=== PATIENT | male | born 1950 | race African-American/Black ===

== ENCOUNTER 2016-04-12 22:44 | Observation (INO) | payer OTHER, MEDICAID ==
[~2016-04-12] VITALS: Ht 175.3 cm; Wt 60.0 kg
[~2016-04-12 22:44] MED LIST: ALBU.5I NEB; ALLO300T2 PO; AMLO5TAB22 PO; AZIT500T2 PO; CHLO10 PO; CLON.1 PO; DILA100C PO; GLUC1000 PO; HYDR-2768 PO; NEUR600T PO; OMEP40CA2 PO; PHEN100 PO; PRED20 PO; ROFL1TAB2 PO; SYMB160A INH; TIOT18I INH; VENTAER INH
[2016-04-12] MEDS ORDERED: SODIUM CHLORID 0.9% 500 ML INJ 500 ML IV ONE (23:00)
[2016-04-12] MEDS ORDERED: SODIUM CHLORIDE 0.9% FLUSH 5 ML FLUSH IVF PRN (23:00)
[2016-04-12] MEDS ORDERED: NITROGLYCERIN 2% OINT 1 GM PACKET TOP ONE (23:00)
[2016-04-12] MEDS ORDERED: ASPIRIN 81 MG CHEW TAB PO ONE (23:00)
[2016-04-12 23:07] VITALS: BP 124/78; PULSE 85; RESP 16; TEMP 98.4; O2SAT 90
[2016-04-12 23:10] VITALS: RESP 16
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
--- NOTE | 2016-04-12 23:29 | RADRPT ---
EXAM DATE/TIME: 04/12/2016 23:05 [place] COMPARISON: CHEST SINGLE AP, February 23, 2016, 22:24. INDICATIONS : Chest pain MEDICAL HISTORY : Hypertension. Congestive heart failure. SURGICAL HISTORY : None. ENCOUNTER: Initial ACUITY: 1 day PAIN SCORE: Non-responsive. LOCATION: Bilateral chest FINDINGS: A single view of the chest demonstrates the lungs to be symmetrically aerated without evidence of mas s, infiltrate or effusion. The cardiomediastinal contours are unremarkable. Osseous structures are intact. 3 rounded metallic foreign bodies overlie the left supraclavicular region and to overlie the left proximal humerus. CONCLUSION: Normal examination. Hubert Rodrigues Jr., MD on April 12, 2016 at 23:27 Board Certified Radiologist. This report was verified electronically.
[2016-04-12 23:37] LABS: AUTOMATED NEUTROPHIL # 5.4 TH/MM3 (1.8-7.7); BASOPHIL % 0.3 % (0.0-2.0); EOSINOPHIL # 0.1 TH/MM3 (0-0.4); EOSINOPHIL % 0.8 % (0.0-4.0); HEMO FLAGS DIFF FINAL; LYMPH % 19.3 % (9.0-44.0); LYMPHOCYTE # 1.7 TH/MM3 (1.0-4.8); MEAN CELL VOLUME 80.2 FL (80.0-100.0); MEAN CORPUSCULAR HEMOGLOBIN 26.6 PG (27.0-34.0); MEAN CORPUSCULAR HGB CONC 33.2 % (32.0-36.0); MONO % 17.5 % (0.0-8.0); NEUT % 62.1 % (16.0-70.0); PLATELET COUNT 140 TH/MM3 (150-450); RED BLOOD COUNT 5.11 MIL/MM3 (4.50-5.90); RED CELL DISTRIBUTION WIDTH 17.5 % (11.6-17.2); WHITE BLOOD COUNT 8.7 TH/MM3 (4.0-11.0)
[2016-04-12 23:45] LABS: APTT (PATIENT) 27.1 SEC (24.3-30.1); INTERNATIONAL NORMALIZED RATIO 0.9 RATIO; PROTHROMBIN TIME - PATIENT 9.9 SEC (9.8-11.6)
[2016-04-12 23:57] LABS: ALKALINE PHOSPHATASE 86 U/L (45-117); CREATINE KINASE 106 U/L (39-308); TOTAL BILIRUBIN ADULT 0.5 MG/DL (0.2-1.0)
[2016-04-12 23:58] LABS: ALT (GPT) 48 U/L (12-78); ANION GAP 14 MEQ/L (5-15); AST (GOT) 109 U/L (15-37); BICARBONATE 20.2 MEQ/L (21.0-32.0); BLOOD UREA NITROGEN 17 MG/DL (7-18); CHLORIDE 100 MEQ/L (98-107); GLOMERULAR FILTRATION RATE 77 ML/MIN (>89); MAGNESIUM 1.8 MG/DL (1.5-2.5); POTASSIUM 3.9 MEQ/L (3.5-5.1); SODIUM (NA) 134 MEQ/L (136-145)
[2016-04-13] VITALS (12 sets, daily range): BP systolic 126–166; BP diastolic 77–94; PULSE 72–97; RESP 16–22; TEMP 96.3–98.7; O2SAT 94–97
[2016-04-13] MEDS ORDERED: methylPREDNISolone SOD SUCC 125 MG/2 ML VIAL IV PUSH ONE
[2016-04-13] MEDS ORDERED: LEVOFLOXACIN 750 MG PREMIX INJ 150 ML IV ONE
[2016-04-13] MEDS: RESP: ALBUTEROL 2.5 MG/IPRATROPIUM 0.5 MG NEB (SCH) INH (00:07)
[2016-04-13 00:09] LABS: CKMB 0.8 NG/ML (0.5-3.6)
[2016-04-13] MEDS ORDERED: SODIUM CHLORID 0.9% 500 ML INJ 500 ML IV ONE (01:45)
[2016-04-13] MEDS ORDERED: SODIUM CHLORIDE 0.9% FLUSH 5 ML FLUSH FLUSH PRN (02:30)
[2016-04-13] MEDS ORDERED: NALOXONE HCL 0.4 MG/ML AMP IV PRN (02:30)
[2016-04-13] MEDS ORDERED: ONDANSETRON HCL 4 MG/2 ML VIAL IVP PRN (02:30)
[2016-04-13] MEDS ORDERED: RESP: ALBUTEROL 2.5 MG/IPRATROPIUM 0.5 MG NEB (PRN) NEB (02:30)
[2016-04-13] MEDS: RESP: ALBUTEROL 2.5 MG/IPRATROPIUM 0.5 MG NEB (SCH) NEB ×5 (03:12→19:58)
[2016-04-13] MEDS: methylPREDNISolone SOD SUCC 40 MG/1 ML VIAL IV PUSH SCH ×3 (05:51→17:28)
[2016-04-13] MEDS: SODIUM CHLOR 0.9% 1000 ML INJ 1,000 ML IV SCH ×3 (05:51→17:27)
[2016-04-13] MEDS ORDERED: BENZONATATE 100 MG CAP PO PRN (08:30)
[2016-04-13] MEDS ORDERED: MAGNESIUM HYDROXIDE SUSP 30 ML CUP PO PRN (08:30)
[2016-04-13] MEDS ORDERED: ACETAMINOPHEN/HYDROcodone 325 MG/5 MG TAB PO PRN (08:30)
[2016-04-13] MEDS ORDERED: BISACODYL 10 MG SUPP PR PRN (08:30)
[2016-04-13] MEDS ORDERED: ACETAMINOPHEN 325 MG TAB PO PRN (08:30)
[2016-04-13] MEDS ORDERED: DOCUSATE SODIUM 100 MG CAP PO PRN (08:30)
[2016-04-13] MEDS ORDERED: ALBU.5I NEB (09:48)
[2016-04-13] MEDS: SODIUM CHLORIDE 0.9% FLUSH 5 ML FLUSH FLUSH SCH ×2 (09:52→21:27)
[2016-04-13] MEDS: PANTOPRAZOLE SOD 40 MG DELAYED RELEASE TAB PO SCH ×2 (09:52→12:32)
[2016-04-13] MEDS: guaiFENesin E.R. 600 MG TAB PO SCH ×2 (09:52→21:27)
[2016-04-13] MEDS ORDERED: ALLO300T2 PO (09:53)
[2016-04-13] MEDS ORDERED: VENTAER INH (09:53)
[2016-04-13] MEDS ORDERED: SYMB160A INH (09:54)
[2016-04-13] MEDS ORDERED: GABA600T PO (09:59)
[2016-04-13] MEDS ORDERED: AMLO5TAB2 PO (09:59)
[2016-04-13] MEDS ORDERED: METF1000 PO (09:59)
[2016-04-13] MEDS ORDERED: HYDR25TA5 PO (09:59)
[2016-04-13] MEDS ORDERED: CLON0.1T PO (09:59)
[2016-04-13] MEDS ORDERED: OMEP40CA2 PO (09:59)
[2016-04-13] MEDS ORDERED: DILA100C PO (09:59)
[2016-04-13] MEDS ORDERED: SPIRCAP INH (10:00)
[2016-04-13] MEDS ORDERED: NITR1SUB3 SL (10:00)
[2016-04-13] MEDS ORDERED: ROFL1TAB2 PO (10:00)
--- NOTE | 2016-04-13 10:45 | EKG ---
Date Performed: 04/13/2016 Time Performed: 05:59:05 PTAGE: 65 years EKG: Sinus rhythm POSSIBLE LEFT VENTRICULAR HYPERTROPHY POSSIBLE INFERIOR MYOCARDIAL INFARCTION ABNORMAL ECG PREVIOUS TRACING : 04/12/2016 22.59 DOCTOR: Eric Reid Interpretating Date/Time 04/13/2016 10:45:03
--- NOTE | 2016-04-13 11:18 | EKG ---
Date Performed: 04/12/2016 Time Performed: 22:59:32 PTAGE: 65 years EKG: Sinus rhythm PROBABLE INFERIOR MYOCARDIAL INFARCTION ABNORMAL ECG INTERPRETATION BASED ON A DEFAULT AGE OF 40 ROQUE GUNDERSON PREVIOUS TRACING : 02/23/2016 22.09 DOCTOR: Eric Reid Interpretating Date/Time 04/13/2016 11:17:11
[2016-04-13] MEDS ORDERED: LORazepam 2 MG TAB PO PRN (11:45)
[2016-04-13] MEDS: MULTIVITAMINS/MINERALS THERAPEUTIC TAB PO SCH (11:45)
[2016-04-13] MEDS ORDERED: FLUMAZENIL 1 MG/10 ML VIAL IV PUSH PRN (11:45)
[2016-04-13] MEDS ORDERED: LORazepam 1 MG TAB PO PRN (11:45)
[2016-04-13] MEDS ORDERED: LORazepam 2 MG/ML VIAL IV PUSH PRN ×4 (11:45)
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
[2016-04-13] MEDS ORDERED: GLUCAGON 1 MG/ML VIAL OTHER PRN (12:00)
[2016-04-13] MEDS ORDERED: DEXTROSE 50% IN WATER 50 ML VIAL(D50) IV PUSH PRN (12:00)
--- NOTE | 2016-04-13 12:19 | EKG ---
Date Performed: 04/13/2016 Time Performed: 11:43:38 PTAGE: 65 years EKG: Sinus rhythm WITH SINUS ARRHYTHMIA NONSPECIFIC T-WAVE ABNORMALITY BORDERLINE ECG PREVIOUS TRACING : 04/13/2016 05.59 DOCTOR: Eric Reid Interpretating Date/Time 04/13/2016 12:18:06
[2016-04-13] MEDS: HYDROCHLOROTHIAZIDE 25 MG TAB PO SCH ×2 (12:32→21:27)
[2016-04-13] MEDS: THIAMINE HCL 100 MG TAB PO SCH (12:32)
[2016-04-13] MEDS: cloNIDine HCL 0.1 MG TAB PO SCH ×2 (12:33→21:27)
[2016-04-13] MEDS: FOLIC ACID 1 MG TAB PO SCH (12:33)
[2016-04-13] MEDS: GABAPENTIN 300 MG CAP PO SCH ×2 (12:33→17:29)
[2016-04-13] MEDS: amLODIPine BESYLATE 5 MG TAB PO SCH ×2 (12:33→21:27)
[2016-04-13] MEDS: PHENYTOIN SODIUM 100 MG CAP PO SCH (12:33)
[2016-04-13 12:58] LABS: CREATINE KINASE 66 U/L (39-308)
[2016-04-13] MEDS ORDERED: INSULIN ASPART SUPPLEMENTAL SCALE SQ SCH (16:00)
[2016-04-13 16:42] LABS: HEMOGLOBIN A1a 1.3 %; HEMOGLOBIN A1b 1.6 %; HEMOGLOBIN Ao 84.3 %; HEMOGLOBIN LA1C 1.8 %; HEMOGLOBIN P3 3.6 %
[2016-04-13] MEDS: BUDESONIDE-FORMOTEROL 160/4.5 MCG INHALER INH SCH (21:00)
[2016-04-13] MEDS: HEPARIN SODIUM - SQ 10,000 UNITS/ML VIAL SQ SCH (21:28)
[2016-04-14] MEDS: methylPREDNISolone SOD SUCC 40 MG/1 ML VIAL IV PUSH SCH ×2 (00:21→05:01)
[2016-04-14 00:31] VITALS: PULSE 72
[2016-04-14 04:25] VITALS: BP 144/85; PULSE 65; RESP 20; TEMP 96.3; O2SAT 95
[2016-04-14] MEDS ORDERED: LEVOFLOXACIN 750 MG TAB PO SCH (06:00)
[2016-04-14 06:15] LABS: AUTOMATED NEUTROPHIL # 9.1 TH/MM3 (1.8-7.7); BASOPHIL % 0.2 % (0.0-2.0); HEMATOCRIT 39.6 % (39.0-51.0); LYMPH % 7.9 % (9.0-44.0); LYMPHOCYTE # 0.8 TH/MM3 (1.0-4.8); MEAN CELL VOLUME 79.9 FL (80.0-100.0); MEAN CORPUSCULAR HEMOGLOBIN 26.2 PG (27.0-34.0); MEAN CORPUSCULAR HGB CONC 32.8 % (32.0-36.0); MONO % 4.7 % (0.0-8.0); NEUT % 87.2 % (16.0-70.0); PLATELET COUNT 131 TH/MM3 (150-450); RED BLOOD COUNT 4.96 MIL/MM3 (4.50-5.90); RED CELL DISTRIBUTION WIDTH 16.9 % (11.6-17.2); WHITE BLOOD COUNT 10.4 TH/MM3 (4.0-11.0)
[2016-04-14 06:34] LABS: HEMO FLAGS AUTO DIFF
[2016-04-14 06:42] LABS: ALKALINE PHOSPHATASE 79 U/L (45-117); ALT (GPT) 37 U/L (12-78); ANION GAP 11 MEQ/L (5-15); AST (GOT) 53 U/L (15-37); BICARBONATE 23.7 MEQ/L (21.0-32.0); BLOOD UREA NITROGEN 20 MG/DL (7-18); CHLORIDE 101 MEQ/L (98-107); GLOMERULAR FILTRATION RATE 92 ML/MIN (>89); MAGNESIUM 1.9 MG/DL (1.5-2.5); POTASSIUM 3.8 MEQ/L (3.5-5.1); SODIUM (NA) 136 MEQ/L (136-145); TOTAL BILIRUBIN ADULT 0.5 MG/DL (0.2-1.0)
[2016-04-14] MEDS ORDERED: INSULIN ASPART SUPPLEMENTAL SCALE SQ SCH (07:00)
[2016-04-14] MEDS: RESP: ALBUTEROL 2.5 MG/IPRATROPIUM 0.5 MG NEB (SCH) NEB (08:00)
[2016-04-14 08:02] VITALS: BP 158/88; PULSE 68; RESP 18; TEMP 99.1; O2SAT 95
[2016-04-14 08:18] LABS: SCAN/DIFF AUTO DIFF CONFIRMED
[2016-04-14] MEDS ORDERED: ROFLUMILAST 500 MCG TAB PO SCH (09:00)
[2016-04-14] MEDS: BUDESONIDE-FORMOTEROL 160/4.5 MCG INHALER INH SCH (09:00)
[2016-04-14] MEDS: PANTOPRAZOLE SOD 40 MG DELAYED RELEASE TAB PO SCH ×2 (09:00→09:23)
[2016-04-14] MEDS ORDERED: ALLOPURINOL 300 MG TAB PO SCH (09:00)
[2016-04-14] MEDS: GABAPENTIN 300 MG CAP PO SCH (09:23)
[2016-04-14] MEDS: amLODIPine BESYLATE 5 MG TAB PO SCH (09:23)
[2016-04-14] MEDS: PHENYTOIN SODIUM 100 MG CAP PO SCH (09:23)
[2016-04-14] MEDS: MULTIVITAMINS/MINERALS THERAPEUTIC TAB PO SCH (09:23)
[2016-04-14] MEDS: FOLIC ACID 1 MG TAB PO SCH (09:23)
[2016-04-14] MEDS: guaiFENesin E.R. 600 MG TAB PO SCH (09:24)
[2016-04-14] MEDS: HYDROCHLOROTHIAZIDE 25 MG TAB PO SCH (09:24)
[2016-04-14] MEDS: THIAMINE HCL 100 MG TAB PO SCH (09:24)
[2016-04-14] MEDS: cloNIDine HCL 0.1 MG TAB PO SCH (09:24)
[2016-04-14] MEDS: SODIUM CHLORIDE 0.9% FLUSH 5 ML FLUSH FLUSH SCH (09:24)
[2016-04-14] MEDS: HEPARIN SODIUM - SQ 10,000 UNITS/ML VIAL SQ SCH (09:24)
[2016-04-14 09:49] VITALS: PULSE 66
[2016-04-14] MEDS ORDERED: PRED20 PO (09:52)
[2016-04-14] MEDS ORDERED: LEVA750T PO (09:52)
--- NOTE | 2016-04-14 09:54 | HHI.DCPOC ---
Discharge Care Plan Diagnosis: (1) COPD exacerbation Goals to Promote Your Health * To prevent worsening of your condition and complications * To maintain your health at the optimal level Directions to Meet Your Goals Take your medications as prescribed Follow your dietary instruction Follow activity as directed Keep your appointments as scheduled Take your immunizations and boosters as scheduled If your symptoms worsen call your PCP, if no PCP go to Urgent Care Center or Emergency Room Smoking is Dangerous to Your Health. Avoid second hand smoke Call the 24-hour hour crisis hotline for domestic abuse at Rina Wallace PA-C Apr 14, 2016 09:54
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
[2016-06-14] MEDS ORDERED: POTA20TA5 PO (09:33)
[2016-06-14] MEDS ORDERED: OXYC-392 PO (09:33)
[2016-06-14] MEDS ORDERED: PANT20 PO (09:33)
[2016-06-14] MEDS ORDERED: AMBI5TAB PO (09:33)
[2016-06-14] MEDS ORDERED: DILA100C PO (09:33)
[2016-06-14] MEDS ORDERED: ROFL1TAB2 PO (09:33)
[2016-06-14] MEDS ORDERED: SYMB160A INH (09:33)
[2016-06-14] MEDS ORDERED: BUME1TAB PO (09:33)
[2016-06-14] MEDS ORDERED: BENT20TA PO (09:33)
[2016-06-14] MEDS ORDERED: VENTAER INH (09:33)
[2016-07-27] MEDS ORDERED: REGL5TAB PO (15:15)
== END 2016-04-14 11:41 | disposition home or self-care (01) ==
LOC: NEPC 22:44 → NEDA 04-13 01:40 → NEDH 04-13 07:37 → NEPFCDU 04-13 13:50
PROVIDERS: ADMIT Internal Medicine; ATTEND Internal Medicine
DX: J44.1 Chronic obstructive pulmonary disease with (acute) exacerbation (principal); R07.9 Chest pain, unspecified; J45.909 Unspecified asthma, uncomplicated; K85.90 Acute pancreatitis without necrosis or infection, unspecified; I10 Essential (primary) hypertension; R74.8 Abnormal levels of other serum enzymes; I48.91 Unspecified atrial fibrillation; E11.9 Type 2 diabetes mellitus without complications; G40.909 Epilepsy, unspecified, not intractable, without status epilepticus; K21.9 Gastro-esophageal reflux disease without esophagitis; M10.9 Gout, unspecified; M19.90 Unspecified osteoarthritis, unspecified site; Z72.0 Tobacco use; Z99.81 Dependence on supplemental oxygen; Z86.73 Personal history of transient ischemic attack (TIA), and cerebral infarction without residual deficits; Z86.010 Personal history of colon polyps; V19.9XXA Pedal cyclist (driver) (passenger) injured in unspecified traffic accident, initial encounter; W19.XXXA Unspecified fall, initial encounter; Y93.55 Activity, bike riding
CPT/HCPCS: 71010; 80053; 82550; 82552; 82948; 83036; 83605; 83690; 83735; 83880; 84484; 85025; 85610; 85730; 87040; 93005; 94640; 94664; 96374; 96375; 99285; G0378; J1644; J1815; J1956; J2920; J2930; J7030; J7040

== ENCOUNTER 2016-04-24 11:43 | Inpatient (IN) | payer OTHER, MEDICARE ==
[~2016-04-24] VITALS: Ht 165.1 cm; Wt 70.1 kg
[2016-04-24] VITALS (7 sets, daily range): BP systolic 135–173; BP diastolic 63–93; PULSE 76–101; RESP 17–20; TEMP 96.1–99.5; O2SAT 90–97
[~2016-04-24 11:43] MED LIST changes: +AMLO5TAB2 PO; -AMLO5TAB22 PO; -AZIT500T2 PO; -CHLO10 PO; -CLON.1 PO; +CLON0.1T PO; +GABA600T PO; -GLUC1000 PO; -HYDR-2768 PO; +HYDR25TA5 PO; +LEVA750T PO; +METF1000 PO; -NEUR600T PO; +NITR1SUB3 SL; -PHEN100 PO; +SPIRCAP INH; -TIOT18I INH
[2016-04-24] MEDS ORDERED: SODIUM CHLOR 0.9% 1000 ML INJ 1,000 ML IV SCH (11:57)
--- NOTE | 2016-04-24 11:59 | PD ---
HPI Chief Complaint: GI Complaint Time Seen by Provider: 11:58 Travel History International Travel<30 days: No Contact w/Intl Traveler<30days: No Traveled to known affect area: No History of Present Illness HPI 65-year-old male with history of COPD, CAD, CHF, diabetes, alcohol dependency, presents to the emergency department for evaluation of generalized abdominal pain with associated nausea and vomiting. Describes the abdominal pain is severe and could not pinpoint area where it is worse. He has been vomiting since last evening. Reports daily alcohol consumption except she has not drank any today because he is unable to keep anything down. Emesis is bilious in nature. No diarrhea. No fevers or chills. No chest pain or tightness. No shortness of breath. Patient was hospitalized April 13 to April 14 of this year for evaluation of COPD exacerbation. At that time he was diagnosed with acute pancreatitis. He states his pain is much worse and at that time. Patient has no other symptoms to report at this time. PFSH Past Medical History Hx Anticoagulant Therapy: Yes Anemia: No Arthritis: Yes Asthma: Yes Atrial Fibrillation: Yes Autoimmune Disease: No Blood Disorders: No Anxiety: No Depression: Yes Heart Rhythm Problems: No Cancer: No Cardiovascular Problems: Yes High Cholesterol: No Chemotherapy: No Chest Pain: No Congestive Heart Failure: Yes COPD: Yes Cerebrovascular Accident: Yes Diabetes: Yes Diminished Hearing: No Endocrine: No Gastrointestinal Disorders: Yes GERD: Yes Glaucoma: No Gout: Yes Genitourinary: No Headaches: Yes Hepatitis: No Hiatal Hernia: No Hypertension: Yes Immune Disorder: No Implanted Vascular Access Dvce: No Kidney Stones: No Musculoskeletal: Yes Neurologic: Yes Psychiatric: No Reproductive: No Respiratory: Yes Immunizations Current: No Migraines: Yes Myocardial Infarction: No Radiation Therapy: No Renal Failure: No Seizures: Yes Sickle Cell Disease: No Sleep Apnea: No Thyroid Disease: No Ulcer: No Past Surgical History Abdominal Surgery: Yes AICD: No Appendectomy: Yes Arteriovenous Shunt: No Cardiac Surgery: No Cholecystectomy: No Ear Surgery: No Endocrine Surgery: No Eye Surgery: No Genitourinary Surgery: No Gynecologic Surgery: No Insulin Pump: No Joint Replacement: No Neurologic Surgery: No Oral Surgery: No Pacemaker: No Thoracic Surgery: No Other Surgery: Yes (BONE SPUR IN R ARM) Social History Alcohol Use: Yes (4- 4pack beer per day) Tobacco Use: Yes (1/2 pack per day) Substance Use: No Allergies-Medications (Allergen,Severity, Reaction): Coded Allergies: Penicillin (Verified Allergy, Severe, HIVES, 04/24/16) Reported Meds & Prescriptions Reported Meds & Active Scripts Active Prednisone 20 Mg Tab 40 Mg PO DAILY Take 40mg daily for 5 days total. Reported Nitroglycerin SL (Nitroglycerin) 0.4 Mg Subl 0.4 Mg SL DIRECTED PRN ONE TABLET UNDER THE TONGUE NEEDED FOR CHEST PAIN, MAY REPEAT EVERY FIVE MINUTES FOR A TOTAL OF 3 DOSES OR CALL 911 IF NO RELIEF Spiriva Handihaler (Tiotropium Inh) 18 Mcg Cap 18 Mcg INH DAILY 1 capsule = 18 mcg Daliresp (Roflumilast) 500 Mcg Tab 500 Mcg PO DAILY Dilantin (Phenytoin Extended) 100 Mg Cap 300 Mg PO DAILY Omeprazole 40 Mg Cap 40 Mg PO DAILY Metformin (Metformin HCl) 1,000 Mg Tab 1,000 Mg PO BIDPC With meals Hydrochlorothiazide 25 Mg Tab 25 Mg PO BID Gabapentin 600 Mg Tab 600 Mg PO TID Clonidine (Clonidine HCl) 0.1 Mg Tab 0.1 Mg PO Q12HR Amlodipine (Amlodipine Besylate) 5 Mg Tab 5 Mg PO BID Symbicort Inh (Budesonide/Formoterol Fumarate) 160-4.5 Mcg/Act Aero 2 Puff INH Q12HR Allopurinol 300 Mg Tab 300 Mg PO DAILY Ventolin Hfa 18 GM Inh (Albuterol Sulfate) 90 Mcg/Act Aer 2 Puff INH Q4-6H PRN Albuterol Neb (Albuterol Sulfate) 2.5 Mg/0.5 Ml Neb 2.5 Mg NEB QID NEB PRN Note: The Albuterol Sulfate Inhalation Solution is concentrated and must be diluted. Read complete instructions carefully before using. Review of Systems Except as stated in HPI: all other systems reviewed are Neg Physical Exam Narrative GENERAL: Well-nourished male patient, sitting up in bed, in no acute distress SKIN: Warm and dry. HEAD: Atraumatic. Normocephalic. EYES: Pupils equal and round. No scleral icterus. No injection or drainage. ENT: No nasal bleeding or discharge. Mucous membranes pink and moist. NECK: Trachea midline. No JVD. CARDIOVASCULAR: Elevated rate and rhythm. No murmur appreciated. RESPIRATORY: No accessory muscle use. Diminished to auscultation. Breath sounds equal bilaterally. GASTROINTESTINAL: Abdomen rotund, soft, tenderness elicited to palpation, mostly left upper quadrant region but epigastric and right upper quadrant as well. No rebound tenderness. No guarding. MUSCULOSKELETAL: No obvious deformities. No clubbing. No cyanosis. No edema. NEUROLOGICAL: Awake and alert. No obvious cranial nerve deficits. Motor grossly within normal limits. Normal speech. Data Data Last Documented VS Vital Signs Date Time Temp Pulse Resp B/P Pulse Ox O2 Delivery O2 Flow Rate FiO2 04/24/16 13:47 18 04/24/16 12:18 97 Room Air 04/24/16 11:52 98.0 98 173/93 Orders Complete Blood Count With Diff (04/24/16 11:57) Comprehensive Metabolic Panel (04/24/16 11:57) Lipase (04/24/16 11:57) Prothrombin Time / Inr (Pt) (04/24/16 11:57) Act Partial Throm Time (Ptt) (04/24/16 11:57) Urinalysis - C+S If Indicated (04/24/16 11:57) Abdomen, Flat & Upright (04/24/16 ) Iv Access Insert/Monitor (04/24/16 11:57) Ecg Monitoring (04/24/16 11:57) Oximetry (04/24/16 11:57) Sodium Chlor 0.9% 1000 Ml Inj (Ns 1000 M (04/24/16 11:57) Sodium Chloride 0.9% Flush (Ns Flush) (04/24/16 12:00) Electrocardiogram (04/24/16 11:57) Ondansetron Inj (Zofran Inj) (04/24/16 12:00) Ct Abd/Pel W Iv Contrast(Rout) (04/24/16 ) Ondansetron Inj (Zofran Inj) (04/24/16 13:00) Morphine Inj (Morphine Inj) (04/24/16 13:00) Iohexol 350 Inj (Omnipaque 350 Inj) (04/24/16 13:47) Act Partial Throm Time (Ptt) (04/24/16 13:52) Lactic Acid Sepsis Protocol (04/24/16 13:52) Ckmb (Isoenzyme) Profile (04/24/16 13:52) Troponin I (04/24/16 13:52) Blood Culture (04/24/16 13:52) Labs Laboratory Tests Test 04/24/16 04/24/16 12:15 12:30 White Blood Count 23.1 TH/MM3 Red Blood Count 5.82 MIL/MM3 Hemoglobin 15.3 GM/DL Hematocrit 46.1 % Mean Corpuscular Volume 79.2 FL Mean Corpuscular Hemoglobin 26.2 PG Mean Corpuscular Hemoglobin 33.1 % Concent Red Cell Distribution Width 18.0 % Platelet Count 185 TH/MM3 Mean Platelet Volume 9.3 FL Neutrophils (%) (Auto) 92.4 % Lymphocytes (%) (Auto) 1.6 % Monocytes (%) (Auto) 5.9 % Eosinophils (%) (Auto) 0.0 % Basophils (%) (Auto) 0.1 % Neutrophils # (Auto) 21.3 TH/MM3 Lymphocytes # (Auto) 0.4 TH/MM3 Monocytes # (Auto) 1.4 TH/MM3 Eosinophils # (Auto) 0.0 TH/MM3 Basophils # (Auto) 0.0 TH/MM3 CBC Comment AUTO DIFF Differential Total Cells 100 Counted Neutrophils % (Manual) 80 % Band Neutrophils % 14 % Lymphocytes % 4 % Monocytes % 2 % Neutrophils # (Manual) 21.7 TH/MM3 Differential Comment FINAL DIFF MANUAL Platelet Estimate NORMAL Platelet Morphology Comment NORMAL Prothrombin Time 10.7 SEC Prothromb Time International 1.0 RATIO Ratio Activated Partial 30.0 SEC Thromboplast Time Sodium Level 140 MEQ/L Potassium Level 4.2 MEQ/L Chloride Level 104 MEQ/L Carbon Dioxide Level 21.3 MEQ/L Anion Gap 15 MEQ/L Blood Urea Nitrogen 22 MG/DL Creatinine 1.33 MG/DL Estimat Glomerular Filtration 65 ML/MIN Rate Random Glucose 171 MG/DL Calcium Level 7.4 MG/DL Protein Corrected Calcium 7.5 MG/DL Total Bilirubin 0.7 MG/DL Aspartate Amino Transf 67 U/L (AST/SGOT) Alanine Aminotransferase 43 U/L (ALT/SGPT) Alkaline Phosphatase 90 U/L Total Protein 6.9 GM/DL Albumin 3.1 GM/DL Lipase 7876 U/L Urine Color YELLOW Urine Turbidity CLEAR Urine pH 5.5 Urine Specific [place] 1.016 Urine Protein 300 mg/dL Urine Glucose (UA) NEG mg/dL Urine Ketones 10 mg/dL Urine Occult Blood TRACE Urine Nitrite NEG Urine Bilirubin NEG Urine Urobilinogen LESS THAN 2.0 MG/DL Urine Leukocyte Esterase NEG Urine RBC 1 /hpf Urine Squamous Epithelial <1 /hpf Cells Urine Hyaline Casts 1 /lpf Urine Mucus FEW /lpf Microscopic Urinalysis Comment CULT NOT INDICATED MDM Medical Decision Making Medical Screen Exam Complete: Yes Emergency Medical Condition: Yes Medical Record Reviewed: Yes Differential Diagnosis Acute pancreatitis versus gastritis versus ileus versus obstruction versus SEPSIS Narrative Course 65-year-old male presents to emergency department for evaluation of abdominal pain. Patient appears overall well except with tender abdomen and slightly elevated heart rate. CBC is with leukocytosis of 22.1 and a bandemia of 14. CMP is with creatinine 1.33, GFR 65. Lipase is elevated 7876. Urinalysis is with 300 proteinuria, 10 ketones, trace occult blood, few mucus. Culture is indicated. Patient will be admitted to the health hospitalist for further evaluation, pain control, and assistance with his nausea and vomiting. 1445 patient verbalizes not wanting to stay in the hospital. He wants to go home. I discussed with the patient the risks of checking himself out of the hospital and he would have to go AGAINST MEDICAL ADVICE. Risks include worsening of condition, organ damage, and/or . Risks are not limited to these. 1500 patient decides that he is not going to leave AGAINST MEDICAL ADVICE. As he is requesting additional pain control. A call has been made again to [facility] for admission. Sepsis Criteria SIRS Criteria (2 or more): Heart rate over 90, WBC > 39652, < 4000 or > 10% bands Sepsis Criteria (SIRS+source): Infect source susp/known Diagnosis Primary Impression: Pancreatitis Qualified Code: K85.20 - Alcohol-induced acute pancreatitis, unspecified complication status Additional Impressions: Abdominal pain Qualified Code: R10.12 - Left upper quadrant pain Nausea & vomiting Qualified Code: R11.14 - Bilious vomiting with nausea Leukocytosis Qualified Code: D72.825 - Bandemia Bandemia Alcohol dependence Qualified Code: F10.29 - Alcohol dependence with unspecified alcohol-induced disorder Admitting Information Admitting Physician Requests: Admit Condition: Stable Yaneth Molina Apr 24, 2016 11:58
[2016-04-24] MEDS ORDERED: SODIUM CHLORIDE 0.9% FLUSH 5 ML FLUSH IVF PRN (12:00)
[2016-04-24] MEDS ORDERED: ONDANSETRON HCL 4 MG/2 ML VIAL IV PUSH ONE (12:00)
[2016-04-24 12:30] LABS: AUTOMATED NEUTROPHIL # 21.3 TH/MM3 (1.8-7.7); BASOPHIL % 0.1 % (0.0-2.0); HEMATOCRIT 46.1 % (39.0-51.0); LYMPH % 1.6 % (9.0-44.0); LYMPHOCYTE # 0.4 TH/MM3 (1.0-4.8); MEAN CELL VOLUME 79.2 FL (80.0-100.0); MEAN CORPUSCULAR HEMOGLOBIN 26.2 PG (27.0-34.0); MEAN CORPUSCULAR HGB CONC 33.1 % (32.0-36.0); MONO % 5.9 % (0.0-8.0); NEUT % 92.4 % (16.0-70.0); PLATELET COUNT 185 TH/MM3 (150-450); RED BLOOD COUNT 5.82 MIL/MM3 (4.50-5.90); WHITE BLOOD COUNT 23.1 TH/MM3 (4.0-11.0)
[2016-04-24 12:34] LABS: HEMO FLAGS AUTO DIFF
[2016-04-24 12:51] LABS: PROTHROMBIN TIME - PATIENT 10.7 SEC (9.8-11.6)
[2016-04-24 12:56] LABS: BICARBONATE 21.3 MEQ/L (21.0-32.0); CALCIUM-PROTEIN CORRECTED 7.5 MG/DL (8.5-10.1); POTASSIUM 4.2 MEQ/L (3.5-5.1); TOTAL BILIRUBIN ADULT 0.7 MG/DL (0.2-1.0)
[2016-04-24] MEDS ORDERED: MORPHINE SULFATE 4 MG/ML INJ IV PUSH ONE (13:00)
[2016-04-24] MEDS ORDERED: ONDANSETRON HCL 4 MG/2 ML VIAL IV ONE (13:00)
[2016-04-24 13:02] LABS: BLOOD, URINE TRACE (NEG); COMMENT (UR) CULT NOT INDICATED; CULTURE IF INDICATED CULT NOT INDICATED; GLUCOSE,URINE NEG (NEG); HYALINE CAST, URINE 1 /lpf (RARE); KETONE, URINE 10 mg/dL (NEG); MUCUS URINE FEW /lpf (OCC); NITRITE,URINE NEG (NEG); PH, URINE 5.5 (5.0-8.5); SQUAMOUS EPITHELIAL CELL URINE <1 /hpf (0-5); URINE COLOR YELLOW (YELLW/STRAW)
[2016-04-24 13:14] LABS: BANDS 14 % (0-6); NEUTROPHIL # MANUAL DIFF 21.7 TH/MM3 (1.8-7.7); PLATELET ESTIMATE SMEAR NORMAL (NORMAL); PLATELET MORPHOLOGY NORMAL (NORMAL); POLYS (SEG NEUTROPHILS) 80 % (16-70); SCAN/DIFF FINAL DIFF MANUAL; WBC DIFF SAMPLE 100
--- NOTE | 2016-04-24 13:25 | RADRPT ---
EXAM DATE/TIME: 04/24/2016 13:01 [facility] COMPARISON: No previous studies available for comparison. INDICATIONS : Abdomen pain MEDICAL HISTORY : Hypertension. Congestive heart failure. SURGICAL HISTORY : None. ENCOUNTER: Initial ACUITY: 3 days PAIN SCORE: 9/10 LOCATION: Bilateral Abdomen FINDINGS: Supine and upright views of the abdomen were performed. The abdominal bowel gas pattern is normal. No air fluid levels are seen. No abnormal masses, calcifications, or organomegaly is seen. The visu alized lower lungs are clear. No evidence of free intraperitoneal gas. The osseous structures are u nremarkable. CONCLUSION: Normal examination. Eric Hoyt MD on April 24, 2016 at 13:24 Board Certified Radiologist. This report was verified electronically.
[2016-04-24] MEDS: METFORMIN HOLD POST IV CONTRAST XX SCH (13:30)
[2016-04-24] MEDS ORDERED: IOHEXOL 350 MG/ML 10 ML VIAL (for RAD DIAG) IV ONE (13:47)
--- NOTE | 2016-04-24 13:55 | RADRPT ---
EXAM DATE/TIME: 04/24/2016 13:26 [facility] COMPARISON: No previous studies available for comparison. INDICATIONS : Abdomen pain. IV CONTRAST: 86 cc Omnipaque 350 (iohexol) IV ORAL CONTRAST: No oral contrast ingested. RADIATION DOSE: 6.85 CTDIvol (mGy) MEDICAL HISTORY : Cardiovascular disease. Chronic obstructive pulmonary disease. Diabetes mellitus type 2. SURGICAL HISTORY : Appendectomy. ENCOUNTER: Initial ACUITY: 1 day PAIN SCALE: 9/10 LOCATION: abdomen TECHNIQUE: Volumetric scanning of the abdomen and pelvis was performed. Using automated exposure control and ad justment of the mA and/or kV according to patient size, radiation dose was kept as low as reasonably achievable to obtain optimal diagnostic quality images. FINDINGS: CT scan of the abdomen and pelvis is performed with IV contrast. There is significant inflammatory s tranding throughout the upper abdomen. There is fluid surrounding the pancreas without any evidence of focal pancreatic mass or stone. The liver is diffusely low density suggesting fatty infiltration. The gallbladder, spleen, kidneys a nd adrenal glands are unremarkable except for a few benign renal cysts. The bowel is unremarkable. No free air is identified. Duodenum is unremarkable. CONCLUSION: Inflammatory stranding in and around the pancreas suggestive of pancreatitis. I don't see any focal areas of necrosis or pseudocyst formation. There is no visible abscess. Mildly fatty liver. Eric Hoyt MD on April 24, 2016 at 13:49 Board Certified Radiologist. This report was verified electronically.
[2016-04-24] MEDS ORDERED: ONDANSETRON HCL 4 MG/2 ML VIAL IV PRN (15:15)
[2016-04-24] MEDS: HEPARIN SODIUM - SQ 10,000 UNITS/ML VIAL SQ SCH ×2 (15:15→20:36)
[2016-04-24] MEDS ORDERED: SODIUM CHLORIDE 0.9% FLUSH 5 ML FLUSH IV PRN (15:15)
[2016-04-24 15:19] LABS: APTT (PATIENT) 31.7 SEC (24.3-30.1)
--- NOTE | 2016-04-24 15:19 | HHI.HP ---
[facility] Service [facility] Primary Care Physician ELIEL Liu Admission Diagnosis ACUTE PANCREATITIS Diagnoses: Chief Complaint: abdominal paibn Travel History International Travel<30 Days: No Contact w/Intl Traveler <30 Da: No Traveled to Known Affected Are: No History of Present Illness This a 65-year-old male with history of COPD, alcohol abuse, diabetes mellitus, CHF, coronary artery disease who presented to the emergency department with abdominal pain. Of note, the patient was in the hospital April 13 and for shortness of breath, was treated for COPD exacerbation. He already has finished his antibiotics but is still on a tapering dose of prednisone. He came in today because of abdominal pain, 10 over 10, epigastric, started about 2 days ago but worsening today, described as stabbing, associated with nausea, and vomiting of bilious material, nonbloody. Pain is radiating to the back, not associated with any fever or chills. Shortness of breath has improved, back to baseline, denies any cough, shortness of breath, chest pain or sputum production. There is also no note of diarrhea or any urinary symptoms. Of note , patient drinks about 10 bottles of beer every day, last drink was about 2 days ago. Review of Systems ROS Limitations: Other Past Family Social History Past Medical History COPD HTN DM seizure disorder gout history of pancreatitis Congestive heart failure?-January 2014, echocardiogram showed Atrial fibrillation? Past Surgical History Appendectomy Bone Spur resection from right arm Colonoscopy 2013 with AVMs in colon, hemorrhoids, polyps Reported Medications Prednisone 20 Mg Tab 40 Mg PO DAILY Nitroglycerin SL (Nitroglycerin) 0.4 Mg Subl 0.4 Mg SL DIRECTED PRN ONE TABLET UNDER THE TONGUE NEEDED FOR CHEST PAIN, MAY REPEAT EVERY FIVE MINUTES FOR A TOTAL OF 3 DOSES OR CALL 911 IF NO RELIEF Spiriva Handihaler (Tiotropium Inh) 18 Mcg Cap 18 Mcg INH DAILY 1 capsule = 18 mcg Daliresp (Roflumilast) 500 Mcg Tab 500 Mcg PO DAILY Dilantin (Phenytoin Extended) 100 Mg Cap 300 Mg PO DAILY Omeprazole 40 Mg Cap 40 Mg PO DAILY Metformin (Metformin HCl) 1,000 Mg Tab 1,000 Mg PO BIDPC With meals Hydrochlorothiazide 25 Mg Tab 25 Mg PO BID Gabapentin 600 Mg Tab 600 Mg PO TID Clonidine (Clonidine HCl) 0.1 Mg Tab 0.1 Mg PO Q12HR Amlodipine (Amlodipine Besylate) 5 Mg Tab 5 Mg PO BID Symbicort Inh (Budesonide/Formoterol Fumarate) 160-4.5 Mcg/Act Aero 2 Puff INH Q12HR Allopurinol 300 Mg Tab 300 Mg PO DAILY Ventolin Hfa 18 GM Inh (Albuterol Sulfate) 90 Mcg/Act Aer 2 Puff INH Q4-6H PRN Albuterol Neb (Albuterol Sulfate) 2.5 Mg/0.5 Ml Neb 2.5 Mg NEB QID NEB PRN Note: The Albuterol Sulfate Inhalation Solution is concentrated and must be diluted. Read complete instructions carefully before using. Allergies: Coded Allergies: Penicillin (Verified Allergy, Severe, HIVES, 04/24/16) Family History Mother with HTN, DM, Father with HTN, unknown cancer, Social History Smokes tobacco, patient not very forthcoming with how much he smokes, states "occasionally" Drinks about 10 bottles of beer daily. No illicit drug use Physical Exam Vital Signs Vital Signs Date Time Temp Pulse Resp B/P Pulse Ox O2 Delivery O2 Flow Rate FiO2 04/24/16 13:47 18 04/24/16 12:18 18 97 Room Air 04/24/16 11:56 18 04/24/16 11:52 98.0 98 18 173/93 96 04/24/16 11:45 98.0 101 17 173/93 96 Physical Exam GENERAL: In mild distress because of pain, HEAD: Atraumatic. Normocephalic. No temporal or scalp tenderness. EYES: PERRL, full EOMs, no jaundice, pink conjunctivae without injection, moist mucosa, dirty sclera, nonicteric. ENT: Nose without bleeding, purulent drainage. Airway patent. NECK: Trachea midline, no mass, no obvious thyromegaly. CARDIOVASCULAR: Borderline tachycardic, rhythm without murmurs, gallops, or rubs. RESPIRATORY: Decreased breath sounds, no wheezing.. No use of accessory muscles of respiration. GASTROINTESTINAL: Abdomen soft, normal bowel sounds, distended abdomen, positive for severe epigastric tenderness, no guarding. MUSCULOSKELETAL: Extremities without clubbing, cyanosis, or edema. INTEGUMENTARY: Warm and dry, no rash of generalized distribution. NEUROLOGICAL: Awake, alert, oriented 3. No obvious cranial nerve deficits. Moves all 4 extremities, muscle strength testing 5 over 5. Motor and sensory grossly within normal limits. .Supple neck, no meningeal signs. Grossly negative cerebellar examination. No focal neurologic deficits. Laboratory Laboratory Tests Test 04/24/16 04/24/16 12:15 12:30 White Blood Count 23.1 Red Blood Count 5.82 Hemoglobin 15.3 Hematocrit 46.1 Mean Corpuscular Volume 79.2 Mean Corpuscular Hemoglobin 26.2 Mean Corpuscular Hemoglobin 33.1 Concent Red Cell Distribution Width 18.0 Platelet Count 185 Mean Platelet Volume 9.3 Neutrophils (%) (Auto) 92.4 Lymphocytes (%) (Auto) 1.6 Monocytes (%) (Auto) 5.9 Eosinophils (%) (Auto) 0.0 Basophils (%) (Auto) 0.1 Neutrophils # (Auto) 21.3 Lymphocytes # (Auto) 0.4 Monocytes # (Auto) 1.4 Eosinophils # (Auto) 0.0 Basophils # (Auto) 0.0 CBC Comment AUTO DIFF Differential Total Cells 100 Counted Neutrophils % (Manual) 80 Band Neutrophils % 14 Lymphocytes % 4 Monocytes % 2 Neutrophils # (Manual) 21.7 Differential Comment FINAL DIFF MANUAL Platelet Estimate NORMAL Platelet Morphology Comment NORMAL Prothrombin Time 10.7 Prothromb Time International 1.0 Ratio Activated Partial 30.0 Thromboplast Time Sodium Level 140 Potassium Level 4.2 Chloride Level 104 Carbon Dioxide Level 21.3 Anion Gap 15 Blood Urea Nitrogen 22 Creatinine 1.33 Estimat Glomerular Filtration 65 Rate Random Glucose 171 Calcium Level 7.4 Protein Corrected Calcium 7.5 Total Bilirubin 0.7 Aspartate Amino Transf 67 (AST/SGOT) Alanine Aminotransferase 43 (ALT/SGPT) Alkaline Phosphatase 90 Total Protein 6.9 Albumin 3.1 Lipase 7876 Urine Color YELLOW Urine Turbidity CLEAR Urine pH 5.5 Urine Specific [facility] [place] 1.016 Urine Protein 300 Urine Glucose (UA) NEG Urine Ketones 10 Urine Occult Blood TRACE Urine Nitrite NEG Urine Bilirubin NEG Urine Urobilinogen LESS THAN 2.0 Urine Leukocyte Esterase NEG Urine RBC 1 Urine Squamous Epithelial <1 Cells Urine Hyaline Casts 1 Urine Mucus FEW Microscopic Urinalysis Comment CULT NOT INDICATED Date/Time Procedure Status Source Growth 04/24/16 14:05 Aerobic Blood Culture Received Blood Peripheral Pending 04/24/16 14:05 Anaerobic Blood Culture Received Blood Peripheral Pending Result Diagram: 04/24/16 1215 04/24/16 1215 Assessment and Plan Assessment and Plan This is a 65-year-old male with history of COPD, HTN, DM, afib, CHF, seizure disorder, gout, tobacco use, alcohol use, and history of pancreatitis, presents with a two-day history of abdominal pain secondary to alcohol use Acute alcohol-induced pancreatitis- CT scan of the abdomen reviewed, showed fat stranding around the pancreas, no pseudocyst or necrosis, bowel rest for now , start normal saline, intravenous morphine for pain control, Zofran for symptomatic control of nausea. COPD-presently not in exacerbation, status post antibiotics recently, hold off steroids, no wheezing. Oxygen support as needed. DuoNeb's as needed. DuoNeb' s [id number], restart Symbicort, restart Daliresp and Spiriva Diabetes: chronic, hold oral hypoglycemic agents, sliding scale insulin for now , recent HgbA1c 5.5. HTN: chronic, restart Norvasc, and clonidine, Vasotec as needed. Hx of Atrial Fibrillation: Currently in sinus rhythm,? History of atrial fibrillation. Seizure Disorder: chronic, last seizure 2 months ago. Continue patient's dilantin. Seizure precautions. Check Dilantin levels. Gout: chronic, stable, restart allopurinol when taking orally. History of Ethanol abuse and dependence - patient counseled, start folate, thiamine and multivitamins.CIWA protocl DVT Prophylaxis: Heparin SQ Full code Physician Certification 2 Midnight Certification Type: Admission for Inpatient Services Order for Inpatient Services The services are ordered in accordance with Medicare regulations or non- Medicare payer requirements, as applicable. In the case of services not specified as inpatient-only, they are appropriately provided as inpatient services in accordance with the 2-midnight benchmark. Estimated LOS (days): 3 days is the estimated time the patient will need to remain in the hospital, assuming treatment plan goals are met and no additional complications. Post-Hospital Plan: Home Fadia Celis MD Apr 24, 2016 15:19
[2016-04-24] MEDS ORDERED: LORazepam 1 MG TAB PO PRN (15:30)
[2016-04-24] MEDS ORDERED: LORazepam 2 MG TAB PO PRN (15:30)
[2016-04-24] MEDS ORDERED: LORazepam 2 MG/ML VIAL IV PUSH PRN ×4 (15:30)
[2016-04-24] MEDS ORDERED: FLUMAZENIL 0.5 MG/5 ML VIAL IV PUSH PRN (15:30)
[2016-04-24] MEDS: SODIUM CHLOR 0.9% 1000 ML INJ 1,000 ML IV SCH ×2 (15:38→20:32)
[2016-04-24 15:39] LABS: CREATINE KINASE 57 U/L (39-308)
[2016-04-24] MEDS: DEXT 5%-NACL 0.9% 1000 ML INJ 1,000 ML IV SCH (15:45)
[2016-04-24] MEDS ORDERED: ENALAPRILAT 1.25 MG/ML VIAL IV PUSH PRN (15:45)
[2016-04-24] MEDS: INSULIN ASPART SUPPLEMENTAL SCALE SQ SCH ×2 (16:00→20:31)
[2016-04-24] MEDS: RESP: ALBUTEROL 2.5 MG/IPRATROPIUM 0.5 MG NEB (SCH) NEB ×2 (16:00→23:28)
[2016-04-24 16:46] LABS: LACTIC ACID GHOST NOT REPORTABLE
[2016-04-24] MEDS: MORPHINE SULFATE 8 MG/ML INJ IV PUSH PRN ×3 (16:59→22:58)
[2016-04-24] MEDS: THIAMINE INJ 100 MG in SODIUM CHLORIDE 0.9% INJ 100 ML IV SCH (17:09)
[2016-04-24] MEDS ORDERED: GLUCAGON 1 MG/ML VIAL OTHER PRN (17:45)
[2016-04-24] MEDS ORDERED: DEXTROSE 50% IN WATER 50 ML VIAL(D50) IV PUSH PRN (17:45)
[2016-04-24] MEDS: MULTIVITAMIN INJ 10 ML, FOLIC ACID INJ 1 MG in SODIUM CHLORID 0.9% 500 ML INJ 500 ML IV SCH (18:14)
[2016-04-24] MEDS: SODIUM CHLORIDE 0.9% FLUSH 5 ML FLUSH IV FLUSH SCH (20:34)
[2016-04-24] MEDS ORDERED: SODIUM CHLORIDE 0.9% FLUSH 5 ML FLUSH IV SCH (21:00)
[2016-04-25] VITALS (7 sets, daily range): BP systolic 112–158; BP diastolic 90–109; PULSE 88–114; RESP 18–20; TEMP 99.2–100.5; O2SAT 91–97
[2016-04-25] MEDS: DEXT 5%-NACL 0.9% 1000 ML INJ 1,000 ML IV SCH ×3 (01:45→20:14)
[2016-04-25] MEDS: MORPHINE SULFATE 8 MG/ML INJ IV PUSH PRN ×6 (02:28→20:05)
[2016-04-25] MEDS: INSULIN ASPART SUPPLEMENTAL SCALE SQ SCH ×4 (04:43→20:14)
[2016-04-25 07:12] LABS: AUTOMATED NEUTROPHIL # 23.8 TH/MM3 (1.8-7.7); BASOPHIL # 0.1 TH/MM3 (0-0.2); BASOPHIL % 0.2 % (0.0-2.0); HEMATOCRIT 46.7 % (39.0-51.0); HEMO FLAGS DIFF FINAL; LYMPH % 2.8 % (9.0-44.0); LYMPHOCYTE # 0.7 TH/MM3 (1.0-4.8); MEAN CELL VOLUME 81.7 FL (80.0-100.0); MEAN CORPUSCULAR HGB CONC 31.9 % (32.0-36.0); MONO % 6.6 % (0.0-8.0); NEUT % 90.4 % (16.0-70.0); PLATELET COUNT 181 TH/MM3 (150-450); RED BLOOD COUNT 5.72 MIL/MM3 (4.50-5.90); RED CELL DISTRIBUTION WIDTH 18.4 % (11.6-17.2); WHITE BLOOD COUNT 26.3 TH/MM3 (4.0-11.0)
[2016-04-25 07:49] LABS: BICARBONATE 18.3 MEQ/L (21.0-32.0); POTASSIUM 4.7 MEQ/L (3.5-5.1)
[2016-04-25 07:58] LABS: CALCIUM-PROTEIN CORRECTED 5.5 MG/DL (8.5-10.1)
[2016-04-25] MEDS: SODIUM CHLORIDE 0.9% FLUSH 5 ML FLUSH IV FLUSH SCH ×2 (09:00→20:14)
[2016-04-25] MEDS: RESP: ALBUTEROL 2.5 MG/IPRATROPIUM 0.5 MG NEB (SCH) NEB ×3 (09:02→23:42)
[2016-04-25] MEDS: HEPARIN SODIUM - SQ 10,000 UNITS/ML VIAL SQ SCH ×3 (09:16→20:06)
[2016-04-25] MEDS ORDERED: CALCIUM GLUCONATE INJ 2 GM in SODIUM CHLORIDE 0.9% INJ 100 ML IV ONE (12:00)
--- NOTE | 2016-04-25 12:13 | HHI.PR ---
Subjective Remarks f/u pancreatitis, still with severe epigastric abdominal pain, no n/v/diarrhea. Afebrile. no appetite, no UO since yesterday. Objective Vitals Vital Signs Date Time Temp Pulse Resp B/P Pulse Ox O2 Delivery O2 Flow Rate FiO2 04/25/16 09:24 133/97 04/25/16 08:00 99.5 88 20 97 04/25/16 06:02 18 04/25/16 04:00 99.2 109 20 135/90 93 04/25/16 00:00 99.6 99 20 134/94 93 04/24/16 20:00 99.5 99 19 146/93 90 04/24/16 17:00 98.6 85 20 144/87 96 04/24/16 16:00 96.1 76 20 135/63 96 04/24/16 15:39 96 18 143/83 95 Room Air 04/24/16 13:47 18 04/24/16 12:18 18 97 Room Air I/O 04/24/16 04/24/16 04/24/16 04/25/16 04/25/16 04/25/16 07:00 15:00 23:00 07:00 15:00 23:00 Intake Total 0 ml 0 ml 0 ml Output Total 250 ml Balance 0 ml 0 ml -250 ml Intake Oral 0 ml 0 ml 0 ml Output Urine Total 250 ml Result Diagram: 04/25/1662904/25/1630 Objective Remarks GENERAL: In mild distress because of pain, HEAD: Atraumatic. Normocephalic. No temporal or scalp tenderness. EYES: PERRL, full EOMs, no jaundice, pink conjunctivae without injection, moist mucosa, dirty sclera, nonicteric. ENT: Nose without bleeding, purulent drainage. Airway patent. NECK: Trachea midline, no mass, no obvious thyromegaly. CARDIOVASCULAR: Borderline tachycardic, rhythm without murmurs, gallops, or rubs. RESPIRATORY: Decreased breath sounds, no wheezing.. No use of accessory muscles of respiration. GASTROINTESTINAL: Abdomen soft, normal bowel sounds, distended abdomen, positive for epigastric tenderness, no guarding. MUSCULOSKELETAL: Extremities without clubbing, cyanosis, or edema. INTEGUMENTARY: Warm and dry, no rash of generalized distribution. NEUROLOGICAL: Awake, alert, oriented 3. No obvious cranial nerve deficits. Moves all 4 extremities, muscle strength testing 5 over 5. Motor and sensory grossly within normal limits. .Supple neck, no meningeal signs. Grossly negative cerebellar examination. No focal neurologic deficits. A/P Assessment and Plan This is a 65-year-old male with history of COPD, HTN, DM, afib, CHF, seizure disorder, gout, tobacco use, alcohol use, and history of pancreatitis, presents with a two-day history of abdominal pain secondary to alcohol use Acute alcohol-induced pancreatitis- CT scan of the abdomen reviewed, showed fat stranding around the pancreas, no pseudocyst or necrosis, lipase better, continue bowel rest for now, cont normal saline, intravenous morphine for pain control, Zofran for symptomatic control of nausea. ARF - worsening crea, check US kidneys, recheck UA, insert FC, continue IVF, recheck BMP COPD-presently not in exacerbation, status post antibiotics recently, hold off steroids, no wheezing. Oxygen support as needed. DuoNeb's as needed. DuoNeb' s [id number], restart Symbicort, cont Daliresp and Spiriva Diabetes: chronic, hold oral hypoglycemic agents, sliding scale insulin for now , recent HgbA1c 5.5. HTN: chronic, restart Norvasc, and clonidine, Vasotec as needed. Hx of Atrial Fibrillation: Currently in sinus rhythm,? History of atrial fibrillation. Seizure Disorder: chronic, last seizure 2 months ago. Continue patient's dilantin. Seizure precautions. Check Dilantin levels. Gout: chronic, stable, restart allopurinol when taking orally. History of Ethanol abuse and dependence - patient counseled, start folate, thiamine and multivitamins.CIWA protocol Hypocalcemia - replace with 2g Ca gluc, recheck Ca tomorrow DVT Prophylaxis: Heparin SQ Fadia Celis MD Apr 25, 2016 12:13
[2016-04-25] MEDS: METFORMIN HOLD POST IV CONTRAST XX SCH (13:30)
--- NOTE | 2016-04-25 16:01 | RADRPT ---
EXAM DATE/TIME: 04/25/2016 15:01 [facility] COMPARISON: CT ABDOMEN & PELVIS W CONTRAST, April 24, 2016, 13:26. INDICATIONS : Acute renal failure. Obstruction. MEDICAL HISTORY : Congestive heart failure. Arthritis. Pancreatitis. ETOH abuse. Diabetes. Cerebrovascular accident. Se izures. Dizziness. Headache. A-Fib. COPD. 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 Dyspnea. GERD. G out. Coronary artery disease. SURGICAL HISTORY : Appendectomy. Right knee and elbow surgery. Bone spur resection, right arm. Colonoscopy. ENCOUNTER: Initial ACUITY: 1 day PAIN SCORE: 3/10 LOCATION: Bilateral flank MEASUREMENTS: RIGHT KIDNEY: 11.1 x 6.2 x 6.0 cm LEFT KIDNEY: 11.5 x 6.9 x 7.0 cm FINDINGS: RIGHT KIDNEY: Renal cortex is normal in thickness and echotexture. No hydronephrosis, stone, or mass. LEFT KIDNEY: Renal cortex is normal in thickness and echotexture. No hydronephrosis, stone, or mass. BLADDER: Hardin catheter. Bladder nondistended CONCLUSION: No evidence of hydronephrosis. Tom Seals MD on April 25, 2016 at 15:58 Board Certified Radiologist. This report was verified electronically.
[2016-04-25] MEDS: THIAMINE INJ 100 MG in SODIUM CHLORIDE 0.9% INJ 100 ML IV SCH (18:10)
[2016-04-25] MEDS: MULTIVITAMIN INJ 10 ML, FOLIC ACID INJ 1 MG in SODIUM CHLORID 0.9% 500 ML INJ 500 ML IV SCH (18:17)
--- NOTE | 2016-04-25 19:43 | EKG ---
Date Performed: 04/24/2016 Time Performed: 12:08:24 PTAGE: 65 years EKG: Sinus rhythm WITH FREQUENT VENTRICULAR PREMATURE COMPLEXES POSSIBLE LEFT ATRIAL ENLARGEMENT POSSIBLE INFERIOR RAMON CARDIAL INFARCTION ABNORMAL ECG PREVIOUS TRACING : 04/13/2016 11.43 DOCTOR: Matthew Sanchez Interpretating Date/Time 04/25/2016 19:37:06
--- NOTE | 2016-04-25 21:49 | RADRPT ---
EXAM DATE/TIME: 04/25/2016 21:25 [facility] COMPARISON: CHEST SINGLE AP, April 12, 2016, 23:05. CT ABDOMEN & PELVIS W CONTRAST, April 24, 2016, 13:26. INDICATIONS : Short of breath MEDICAL HISTORY : Hypertension. Congestive heart failure. SURGICAL HISTORY : None. ENCOUNTER: Subsequent ACUITY: 1 week PAIN SCORE: 0/10 LOCATION: Bilateral chest FINDINGS: Slight perihilar and basilar infiltrates seen suggesting mild failure. Heart size upper limits of nor mal, not significantly changed. No large effusion. No pneumothorax. CONCLUSION: Mild failure/fluid overload. Mason Dahl MD on April 25, 2016 at 21:47 Board Certified Radiologist. This report was verified electronically.
[2016-04-25] MEDS ORDERED: FUROSEMIDE 40 MG/4 ML VIAL IV PUSH ONE (23:30)
[2016-04-26] VITALS (10 sets, daily range): BP systolic 105–170; BP diastolic 71–107; PULSE 72–109; RESP 18–22; TEMP 96.6–100.5; O2SAT 90–97
[2016-04-26] MEDS: MORPHINE SULFATE 8 MG/ML INJ IV PUSH PRN ×4 (01:09→21:29)
[2016-04-26] MEDS: INSULIN ASPART SUPPLEMENTAL SCALE SQ SCH ×4 (05:02→21:00)
[2016-04-26] MEDS: HEPARIN SODIUM - SQ 10,000 UNITS/ML VIAL SQ SCH ×3 (05:04→23:15)
[2016-04-26] MEDS: DEXT 5%-NACL 0.9% 1000 ML INJ 1,000 ML IV SCH (06:48)
[2016-04-26 06:56] LABS: AUTOMATED NEUTROPHIL # 16.5 TH/MM3 (1.8-7.7); BASOPHIL % 0.2 % (0.0-2.0); HEMATOCRIT 38.8 % (39.0-51.0); HEMO FLAGS DIFF FINAL; LYMPH % 4.8 % (9.0-44.0); LYMPHOCYTE # 0.9 TH/MM3 (1.0-4.8); MEAN CELL VOLUME 81.2 FL (80.0-100.0); MEAN CORPUSCULAR HEMOGLOBIN 26.3 PG (27.0-34.0); MEAN CORPUSCULAR HGB CONC 32.4 % (32.0-36.0); MONO % 9.5 % (0.0-8.0); NEUT % 85.5 % (16.0-70.0); PLATELET COUNT 141 TH/MM3 (150-450); RED BLOOD COUNT 4.79 MIL/MM3 (4.50-5.90); RED CELL DISTRIBUTION WIDTH 17.8 % (11.6-17.2); WHITE BLOOD COUNT 19.3 TH/MM3 (4.0-11.0)
[2016-04-26] MEDS: RESP: ALBUTEROL 2.5 MG/IPRATROPIUM 0.5 MG NEB (SCH) NEB ×2 (08:33→16:25)
[2016-04-26] MEDS: SODIUM CHLORIDE 0.9% FLUSH 5 ML FLUSH IV FLUSH SCH ×2 (08:45→21:29)
--- NOTE | 2016-04-26 10:05 | HHI.PR ---
Subjective Remarks Follow-up for pancreatitis Epigastric Abdominal pain better today, about 6/10, his appetite, wants to eat, no nausea or vomiting. No chest pain, no shortness of breath, Hardin catheter was leaking, patient wants it removed. Good urine output. No nausea or vomiting. Afebrile Objective Vitals Vital Signs Date Time Temp Pulse Resp B/P Pulse Ox O2 Delivery O2 Flow Rate FiO2 04/26/16 04:30 98.0 101 18 166/103 94 04/26/16 02:32 20 04/26/16 00:00 100.5 109 18 160/93 90 04/25/16 20:00 100.1 108 18 158/97 91 04/25/16 16:00 100.0 114 20 157/103 92 04/25/16 12:00 100.5 94 18 112/109 93 I/O 04/25/16 04/25/16 04/25/16 04/26/16 04/26/16 04/26/16 07:00 15:00 23:00 07:00 15:00 23:00 Intake Total 0 ml 0 ml 480 ml 480 ml Output Total 400 ml Balance 0 ml -400 ml 480 ml 480 ml Intake Oral 0 ml 0 ml 480 ml 480 ml Output Urine Total 400 ml Bladder Scan Volume Amount 201 ml # Voids 1 Result Diagram: 04/26/16 0640 04/25/16 0630 Objective Remarks GENERAL: In mild distress because of pain, HEAD: Atraumatic. Normocephalic. No temporal or scalp tenderness. EYES: PERRL, full EOMs, no jaundice, pink conjunctivae without injection, moist mucosa, dirty sclera, nonicteric. ENT: Nose without bleeding, purulent drainage. Airway patent. NECK: Trachea midline, no mass, no obvious thyromegaly. CARDIOVASCULAR: Borderline tachycardic, rhythm without murmurs, gallops, or rubs. RESPIRATORY: Decreased breath sounds, no wheezing.. No use of accessory muscles of respiration. GASTROINTESTINAL: Abdomen soft, normal bowel sounds, mildly distended, less tenderness, no guarding. MUSCULOSKELETAL: Extremities without clubbing, cyanosis, or edema. INTEGUMENTARY: Warm and dry, no rash of generalized distribution. NEUROLOGICAL: Awake, alert, oriented 3. No obvious cranial nerve deficits. Moves all 4 extremities, muscle strength testing 5 over 5. Motor and sensory grossly within normal limits. .Supple neck, no meningeal signs. Grossly negative cerebellar examination. No focal neurologic deficits. A/P Assessment and Plan This is a 65-year-old male with history of COPD, HTN, DM, afib, CHF, seizure disorder, gout, tobacco use, alcohol use, and history of pancreatitis, presents with a two-day history of abdominal pain secondary to alcohol use Acute alcohol-induced pancreatitis- CT scan of the abdomen reviewed, showed fat stranding around the pancreas, no pseudocyst or necrosis, lipase better, abdominal pain better, patient is appetite, full liquid diet, cont normal saline , intravenous morphine for pain control, Zofran for symptomatic control of nausea. ARF -creatinine still worsening, ultrasound of the kidneys did not show any hydronephrosis. Urinalysis repeat was not done, remove Hardin catheter, stop IVF. BMP for today still pending. If no urine output in 8 hours, check bladder scan. Pulmonary congestion-likely secondary to volume overload, stop IVF for now, will give another dose of Lasix, received Lasix last night. Chest x-ray personally reviewed showed pulmonary edema. Monitor urine output closely. COPD-presently not in exacerbation, status post antibiotics recently, hold off steroids, no wheezing. Oxygen support as needed. DuoNeb's as needed. DuoNeb' s [id number], continue Symbicort, cont Daliresp and Spiriva Diabetes: chronic, hold oral hypoglycemic agents, sliding scale insulin for now , recent HgbA1c 5.5. HTN: chronic, continue Norvasc, and clonidine, Vasotec as needed. Hx of Atrial Fibrillation: Currently in sinus rhythm,? History of atrial fibrillation. Seizure Disorder: chronic, last seizure 2 months ago. Continue patient's dilantin. Seizure precautions. Gout: chronic, stable, restart allopurinol when taking orally. History of Ethanol abuse and dependence - patient counseled, folate, thiamine and multivitamins.CIWA protocol Hypocalcemia - replace with 2g Ca gluc, repeat BMP pending DVT Prophylaxis: Heparin SQ Fadia Celis MD Apr 26, 2016 10:05
[2016-04-26] MEDS ORDERED: FUROSEMIDE 20 MG/2 ML VIAL IV PUSH ONE (10:15)
[2016-04-26] MEDS: RESP: ALBUTEROL 2.5 MG/IPRATROPIUM 0.5 MG NEB (PRN) NEB ×2 (11:38→22:38)
[2016-04-26 12:05] LABS: ANION GAP 13 MEQ/L (5-15); BICARBONATE 19.7 MEQ/L (21.0-32.0); BLOOD UREA NITROGEN 48 MG/DL (7-18); CHLORIDE 105 MEQ/L (98-107); GLOMERULAR FILTRATION RATE 11 ML/MIN (>89); POTASSIUM 4.2 MEQ/L (3.5-5.1); SODIUM (NA) 138 MEQ/L (136-145)
[2016-04-26 13:07] LABS: CALCIUM-PROTEIN CORRECTED 5.4 MG/DL (8.5-10.1)
[2016-04-26] MEDS ORDERED: CALCIUM CHLORIDE INJ 2 GM in SODIUM CHLORIDE 0.9% INJ 100 ML IV ONE (15:00)
[2016-04-26] MEDS ORDERED: ALBUTEROL SULFATE 90 MCG/ACT HFA 8 GM INHALER INH PRN (18:15)
[2016-04-26] MEDS: MULTIVITAMIN INJ 10 ML, FOLIC ACID INJ 1 MG in SODIUM CHLORID 0.9% 500 ML INJ 500 ML IV SCH (18:27)
[2016-04-26] MEDS ORDERED: SODIUM CHLOR 0.9% 1000 ML INJ 1,000 ML IV PRN ×2 (19:10)
--- NOTE | 2016-04-26 19:10 | PD.CONS ---
HPI Service Nephrology Consult Requested By Dr. Celis Reason for Consult Acute renal failure Primary Care Physician ELIEL Liu History of Present Illness Patient is a 65-year-old male who admits to alcoholism drinks up to 10 beers a day and develop abdominal pain and abdominal distention increasing shortness of breath and acute renal failure he had a Hardin catheter which was taken out ever since that he hasn't passed urine on bladder scan showed low urine volume in the bladder and his creatinine has jumped to 6.2 calcium is less than 5 Review of Systems Constitutional: COMPLAINS OF: Fatigue Respiratory: COMPLAINS OF: Cough, Shortness of breath Cardiovascular: COMPLAINS OF: Lower Extremity Edema Gastrointestinal: COMPLAINS OF: Abdominal pain, Constipation, Nausea, Anorexia Musculoskeletal: COMPLAINS OF: Joint pain Psychiatric: COMPLAINS OF: Anxiety Past Family Social History Allergies: Coded Allergies: Penicillin (Verified Allergy, Severe, HIVES, 04/24/16) Past Medical History COPD HTN DM seizure disorder gout history of pancreatitis Congestive heart failure Alcoholism Past Surgical History Appendectomy Bone Spur resection from right arm Colonoscopy 2013 with AVM in colon, hemorrhoids, polyp Reported Medications Reported Meds & Active Scripts Active Prednisone 20 Mg Tab 40 Mg PO DAILY Take 40mg daily for 5 days total. Reported Nitroglycerin SL (Nitroglycerin) 0.4 Mg Subl 0.4 Mg SL DIRECTED PRN ONE TABLET UNDER THE TONGUE NEEDED FOR CHEST PAIN, MAY REPEAT EVERY FIVE MINUTES FOR A TOTAL OF 3 DOSES OR CALL 911 IF NO RELIEF Spiriva Handihaler (Tiotropium Inh) 18 Mcg Cap 18 Mcg INH DAILY 1 capsule = 18 mcg Daliresp (Roflumilast) 500 Mcg Tab 500 Mcg PO DAILY Dilantin (Phenytoin Extended) 100 Mg Cap 300 Mg PO DAILY Omeprazole 40 Mg Cap 40 Mg PO DAILY Metformin (Metformin HCl) 1,000 Mg Tab 1,000 Mg PO BIDPC With meals Hydrochlorothiazide 25 Mg Tab 25 Mg PO BID Gabapentin 600 Mg Tab 600 Mg PO TID Clonidine (Clonidine HCl) 0.1 Mg Tab 0.1 Mg PO Q12HR Amlodipine (Amlodipine Besylate) 5 Mg Tab 5 Mg PO BID Symbicort Inh (Budesonide/Formoterol Fumarate) 160-4.5 Mcg/Act Aero 2 Puff INH Q12HR Allopurinol 300 Mg Tab 300 Mg PO DAILY Ventolin Hfa 18 GM Inh (Albuterol Sulfate) 90 Mcg/Act Aer 2 Puff INH Q4-6H PRN Albuterol Neb (Albuterol Sulfate) 2.5 Mg/0.5 Ml Neb 2.5 Mg NEB QID NEB PRN Note: The Albuterol Sulfate Inhalation Solution is concentrated and must be diluted. Read complete instructions carefully before using. Active Ordered Medications Current Medications Medications (Trade) Dose Ordered Sig/Tamera Route Start Time Stop Time Status Last Admin (Morphine Inj) 5 mg Q3H PRN IV PUSH 04/24/16 15:15 04/26/16 18:46 (Zofran Inj) 4 mg Q6H PRN IV 04/24/16 15:15 (Heparin Inj) 5,000 units Q8H SQ 04/24/16 15:15 04/26/16 16:09 (NS Flush) 2 ml UNSCH PRN IV FLUSH 04/24/16 15:30 IV Flush 2 ml 2 ml BID IV FLUSH 04/24/16 21:00 04/26/16 08:45 (Mvi-12 Inj/ Folvite Inj/NS 500 ml Inj) 510.2 ml @ 125 mls/hr Q24H IV 04/24/16 18:00 04/29/16 17:59 04/26/16 18:27 (Ativan) 1 mg Q4H PRN PO 04/24/16 15:30 (Ativan Inj) 1 mg Q4H PRN IV PUSH 04/24/16 15:30 (Ativan) 2 mg Q2H PRN PO 04/24/16 15:30 (Ativan Inj) 2 mg Q2H PRN IV PUSH 04/24/16 15:30 (Ativan Inj) 2 mg Q1H PRN IV PUSH 04/24/16 15:30 (Ativan Inj) 2 mg Q15M PRN IV PUSH 04/24/16 15:30 (Vasotec Inj) 1.25 mg Q6H PRN IV PUSH 04/24/16 15:45 (D50w (Vial) Inj) 25 ml UNSCH PRN IV PUSH 04/24/16 17:45 (Glucagon Inj) 1 mg UNSCH PRN OTHER 04/24/16 17:45 (Proair Hfa Inh) 1 puff Q4H PRN INH 04/26/16 18:15 Family History Mother has diabetes hypertension renal failure Mother had hypertension and cancer Social History Smoke cigarettes Drinks beer up to 10 beers a day Physical Exam Vital Signs Vital Signs Date Time Temp Pulse Resp B/P Pulse Ox O2 Delivery O2 Flow Rate FiO2 04/26/16 16:43 97.6 78 20 120/82 96 04/26/16 10:12 94 Nasal Cannula 2.00 04/26/16 08:00 97.0 88 20 105/71 97 04/26/16 04:30 98.0 101 18 166/103 94 04/26/16 02:32 20 04/26/16 00:00 100.5 109 18 160/93 90 04/25/16 20:00 100.1 108 18 158/97 91 Physical Exam GENERAL: Well-nourished, well-developed patient. SKIN: Warm and dry. HEAD: Normocephalic. EYES: No scleral icterus. No injection or drainage. NECK: Supple, trachea midline. No JVD or lymphadenopathy. CARDIOVASCULAR: Tachycardic RESPIRATORY: Breath sounds decreased at bases with bibasilar Rales GASTROINTESTINAL: Abdomen distended, bowel sounds hypoactive. EXTREMITIES: No cyanosis, 1+ edema. NEUROLOGICAL: Awake, alert, and oriented x 3. Non-focal. Laboratory Laboratory Tests Test 04/26/16 04/26/16 06:40 10:05 White Blood Count 19.3 Red Blood Count 4.79 Hemoglobin 12.6 Hematocrit 38.8 Mean Corpuscular Volume 81.2 Mean Corpuscular Hemoglobin 26.3 Mean Corpuscular Hemoglobin 32.4 Concent Red Cell Distribution Width 17.8 Platelet Count 141 Mean Platelet Volume 9.7 Neutrophils (%) (Auto) 85.5 Lymphocytes (%) (Auto) 4.8 Monocytes (%) (Auto) 9.5 Eosinophils (%) (Auto) 0.0 Basophils (%) (Auto) 0.2 Neutrophils # (Auto) 16.5 Lymphocytes # (Auto) 0.9 Monocytes # (Auto) 1.8 Eosinophils # (Auto) 0.0 Basophils # (Auto) 0.0 CBC Comment DIFF FINAL Differential Comment Sodium Level 138 Potassium Level 4.2 Chloride Level 105 Carbon Dioxide Level 19.7 Anion Gap 13 Blood Urea Nitrogen 48 Creatinine 6.22 Estimat Glomerular Filtration 11 Rate Random Glucose 106 Calcium Level LESS THAN 5.0 Protein Corrected Calcium 5.4 Total Protein 6.1 Date/Time Procedure Status Source Growth 04/24/16 14:05 Aerobic Blood Culture - Preliminary Resulted Blood Peripheral NO GROWTH IN 2 DAYS 04/24/16 14:05 Anaerobic Blood Culture - Preliminary Resulted Blood Peripheral NO GROWTH IN 2 DAYS Result Diagram: 04/26/16 0640 04/26/16 1005 Imaging Last Impressions Renal Ultrasound 04/25/16 0000 Signed Impressions: Service Date/Time: Monday, April 25, 2016 15:01 - CONCLUSION: No evidence of hydronephrosis. Tom Seals MD Chest X-Ray 04/25/16 0000 Signed Impressions: Service Date/Time: Monday, April 25, 2016 21:25 - CONCLUSION: Mild failure/fluid overload. Mason Dahl MD Abdomen/Pelvis CT 04/24/16 0000 Signed Impressions: Service Date/Time: Sunday, April 24, 2016 13:26 - CONCLUSION: Inflammatory stranding in and around the pancreas suggestive of pancreatitis. I don't see any focal areas of necrosis or pseudocyst formation. There is no visible abscess. Mildly fatty liver. Eric Hoyt MD Abdomen X-Ray 04/24/16 0000 Signed Impressions: Service Date/Time: Sunday, April 24, 2016 13:01 - CONCLUSION: Normal examination. Eric Hoyt MD Assessment and Plan Problem List: (1) Acute renal failure Plan: Patient has oliguric renal failure likely due to complications of pancreatitis and developed acute tubular necrosis his creatinine is elevated I discussed with him that he will need to hemodialysis support by tomorrow He will need a port placement which I will request by radiology Continue supportive care and dialysis will be arranged in the morning (2) Hypocalcemia Plan: Continue to replace her calcium is received calcium gluconate (3) Pancreatitis Plan: Severe pancreatitis with acute renal failure severe hypocalcemia and developing acidosis and possible ARDS (4) Abdominal pain Plan: Distention due to pancreatitis (5) COPD exacerbation Plan: Continue treatment (6) Thrombocytopenia Plan: Due to pancreatitis Problem Qualifiers (1) Acute renal failure: Qualified Code: N17.0 - Acute renal failure with tubular necrosis (2) Pancreatitis: Qualified Code: K85.20 - Alcohol-induced acute pancreatitis, unspecified complication status (3) Abdominal pain: Qualified Code: R10.12 - Left upper quadrant pain Janett Crane MD Apr 26, 2016 19:09
[2016-04-26] MEDS ORDERED: GENTAMICIN SULFATE (DIALYSIS USE ONLY) 20 MG/2 ML VIAL IV PRN (19:15)
[2016-04-26] MEDS ORDERED: ONDANSETRON HCL 4 MG/2 ML VIAL IV PRN (19:15)
[2016-04-26] MEDS ORDERED: SODIUM CHLORIDE 0.9% FLUSH 5 ML FLUSH IVF PRN (19:15)
[2016-04-26] MEDS ORDERED: ACETAMINOPHEN 325 MG TAB PO PRN (19:15)
[2016-04-26] MEDS ORDERED: cloNIDine HCL 0.1 MG TAB PO PRN (19:15)
[2016-04-26] MEDS ORDERED: NITROGLYCERIN 0.4 MG SL 25 TABS/BTL SL PRN (19:15)
[2016-04-26] MEDS ORDERED: MANNITOL 12.5 GM/50 ML VIAL IV PRN (19:15)
[2016-04-26] MEDS ORDERED: EPOETIN ALFA 10,000 UNITS/ML VIAL IV PRN (19:15)
[2016-04-26] MEDS ORDERED: ALBUMIN HUMAN 25% 25 GM/100 ML BAGP IV PRN (19:15)
[2016-04-26] MEDS ORDERED: HEPARIN SODIUM - IV 10,000 UNITS/10 ML VIAL IVF PRN (19:15)
[2016-04-26] MEDS ORDERED: GELATIN 12 MM/7 MM FOAM TOP PRN (19:15)
[2016-04-26] MEDS ORDERED: HEPARIN SODIUM - IV 10,000 UNITS/10 ML VIAL PRN (19:15)
[2016-04-26] MEDS ORDERED: diphenhydrAMINE HCL 25 MG CAP PO PRN (19:15)
[2016-04-26] MEDS ORDERED: CALCIUM GLUCONATE INJ 2 GM in SODIUM CHLORIDE 0.9% INJ 100 ML IV SCH (21:00)
[2016-04-27] VITALS (18 sets, daily range): BP systolic 108–160; BP diastolic 54–102; PULSE 70–118; RESP 18–28; TEMP 97.9–98.6; O2SAT 91–100
[2016-04-27] MEDS: MORPHINE SULFATE 8 MG/ML INJ IV PUSH PRN (00:18)
[2016-04-27] MEDS: SODIUM CHLORIDE 0.9% FLUSH 5 ML FLUSH IV FLUSH PRN ×3 (00:19→02:21)
[2016-04-27] MEDS: HEPARIN SODIUM - SQ 10,000 UNITS/ML VIAL SQ SCH ×3 (01:12→23:06)
[2016-04-27] MEDS: RESP: ALBUTEROL 2.5 MG/IPRATROPIUM 0.5 MG NEB (SCH) NEB (01:24)
--- NOTE | 2016-04-27 02:13 | HHI.PR ---
Addendum to Inpatient Note Addendum Reason: Additional Documentation Additional Information I was told by our nurse practitioner that this patient might need BiPAP. Therefore came to see patient at the bedside. Patient is awake, alert, oriented. In acute distress with audible wheezing from a distance. He is using respiratory sensory muscles. Patient is saturating about 95% on 5 L nasal cannular. Chart reviewed. Patient with acute pancreatitis, acute renal failure secondary to this, planned for dialysis first session in the morning. Patient also has history of COPD. Was told the patient just received his nebulizer treatments without improvement. Apparently during the night, patient did go into respiratory distress initially which was improved with nebulizer treatments. However none at early a.m., when respiratory therapist came to see him at the bedside, he was noted to be tripoding at the edge of his bed, with audible wheezing. Patient also received total of 800 cc of fluids this evening. Nurse reported that this includes calcium gluconate fluids, and thiamine/vitamins IV infusions. He did have pulmonary edema last night according to the notes, and he did diurese about 800 cc last night. He also received additional 20 mg of Lasix IV during the day. For the evening shift though, patient diuresed only about 200 cc. On exam, patient is awake, alert, oriented. In acute distress, using respiratory sensory muscles. Diaphoretic. Able to complete sentences although with difficulty. Heart rate is around 100s. Respiratory rate around 25-30. Saturating 95% on 5 L nasal cannula. Audible wheezing from a distance. Abdomen is soft and nontender. No calf asymmetry or edema noted. Patient also later reported that he was vomiting tonight. He was noted to have some yellowish color discolorations on his clothing. He stated he vomited 3 times. Impression: Acute respiratory distresslikely due to pulmonary edema/fluid overload COPD exacerbationlikely contributing to this above. However the main thing is more of fluid overload. Fluid overload Nausea/vomiting Acute pancreatitis Severe electrolytes abnormalitiessecondary to pancreatitis Acute renal failuresecondary to pancreatitisplanned for dialysis in a.m. Plan: Initially, we had ordered for BiPAP to stabilize patient's breathing. However once patient informed us that he was vomiting 3 times tonight, I have decided not to put him on BiPAP. Lasix 40 mg IV now. Solu-Medrol 125 mg IV now. Nausea control. Stat KUB. Stat chest x-ray. Transfer to ICU status. If patient does not improve with Lasix/ does not diurese with Lasix, he would likely need intubation since he is vomiting and dangerous to be on BiPAP. However it doesn't that his vomitus is quite small. It was only more staining on his clothing. Nurse also did not witness any episodes of vomiting. Repeat labs now stat. Including electrolytes. Discontinue all IV fluids. Yarn Packer consult for transfer of cares/critical care management. Critical care time 30 minutes Chris Dover MD Apr 27, 2016 02:13
[2016-04-27] MEDS ORDERED: FUROSEMIDE 40 MG/4 ML VIAL IV PUSH ONE (02:15)
[2016-04-27] MEDS ORDERED: methylPREDNISolone SOD SUCC 125 MG/2 ML VIAL IV PUSH ONE (02:15)
[2016-04-27] MEDS: RESP: ALBUTEROL 2.5 MG/IPRATROPIUM 0.5 MG NEB (PRN) NEB (03:41)
[2016-04-27] MEDS ORDERED: MIDAZOLAM HCL 5 MG/ML VIAL (1 ML) ONE (03:48)
[2016-04-27] MEDS ORDERED: PROPOFOL 1000 MG/100 ML INJ 100 ML ONE (03:49)
[2016-04-27] MEDS ORDERED: SUCCINYLCHOLINE CHLORIDE 200 MG/10 ML VIAL ONE (03:50)
[2016-04-27] MEDS ORDERED: ROCURONIUM INJ 50 MG/5 ML VIAL ONE (03:50)
[2016-04-27] MEDS ORDERED: LACTATED RINGER'S 1000 ML INJ 1,000 ML IV ONE (04:05)
[2016-04-27] MEDS ORDERED: SUCCINYLCHOLINE CHLORIDE 200 MG/10 ML VIAL IV ONE (04:15)
[2016-04-27] MEDS ORDERED: MIDAZOLAM HCL 5 MG/ML VIAL (1 ML) IVP ONE (04:15)
[2016-04-27] MEDS ORDERED: ROCURONIUM INJ 50 MG/5 ML VIAL IV PUSH ONE (04:15)
[2016-04-27 04:35] LABS: BLOOD GAS BASE EXCESS -13.4 mmol/L (-2-2); BLOOD GAS CARBOXYHEMOGLOBIN 1.1 % (0-4); BLOOD GAS HCO3 14 mmol/L (22-26); BLOOD GAS METHEMOGLOBIN 1.3 % (0-2); BLOOD GAS O2 HGB SATURATION 97 % (90-100); BLOOD GAS OXYGEN CONTENT 14.9 Vol % (12.0-20.0); BLOOD GAS PCO2 43 mmHg (38-42); BLOOD GAS PO2 324 mmHg (61-120); BLOOD GAS TOTAL HGB 10.3 G/DL (12.0-16.0); CRITICAL VALUE YES; OXYGEN DEVICE VENTILATOR; TEMP CORR TO 98.6
[2016-04-27 04:36] LABS: DRAW SITE ART LINE; FIO2 100 %; STAT YES; VENT SETTINGS PRVC/AC
[2016-04-27] MEDS ORDERED: LACTATED RINGER'S 1000 ML INJ 2,000 ML IV ONE (04:45)
[2016-04-27] MEDS ORDERED: DEXTROSE 50% IN WATER 50 ML VIAL(D50) IV PUSH PRN (04:45)
[2016-04-27 04:58] LABS: AUTOMATED NEUTROPHIL # 12.3 TH/MM3 (1.8-7.7); BASOPHIL % 0.1 % (0.0-2.0); HEMATOCRIT 32.5 % (39.0-51.0); LYMPH % 1.7 % (9.0-44.0); LYMPHOCYTE # 0.2 TH/MM3 (1.0-4.8); MEAN CELL VOLUME 82.1 FL (80.0-100.0); MEAN CORPUSCULAR HEMOGLOBIN 26.7 PG (27.0-34.0); MEAN CORPUSCULAR HGB CONC 32.5 % (32.0-36.0); MONO % 8.9 % (0.0-8.0); NEUT % 89.3 % (16.0-70.0); PLATELET COUNT 158 TH/MM3 (150-450); RED BLOOD COUNT 3.95 MIL/MM3 (4.50-5.90); RED CELL DISTRIBUTION WIDTH 17.9 % (11.6-17.2); WHITE BLOOD COUNT 13.8 TH/MM3 (4.0-11.0)
--- NOTE | 2016-04-27 04:59 | PD.PROCEDR ---
Procedure Note Procedure Procedure: Arterial Line Placement Left radial arterial line Diagnosis: Severe acute pancreatitis Indications: Need for beat to beat hemodynamic monitoring Consent: Consent is deemed emergent or medically necessary Description of the Procedure: The left wrist was prepped and draped sterilely. 1% lidocaine was used for local anesthesia. The pulse was located and a needle was advanced into the artery. A 20 gauge, 12 cm catheter was advanced into the artery using a modified Seldinger technique. The catheter was sutured to the skin and a sterile dressing was applied. The catheter was connected to a pressure transducer and an arterial waveform was noted. There were no immediate complications noted. There was minimal EBL. I personally performed the procedure. Dakota Sanchez MD Apr 27, 2016 04:59
[2016-04-27 05:00] LABS: HEMO FLAGS AUTO DIFF
--- NOTE | 2016-04-27 05:01 | PD.PROCEDR ---
Procedure Note Procedure Central Line Procedure Note Left subclavian triple-lumen catheter Diagnosis: Severe acute pancreatitis Indications: Need for central pressure monitoring Consent: Consent is deemed emergent or medically necessary Anesthesia: Propofol IV Description of the Procedure: The patient was placed in the supine, mild- Trendelenburg position. The area was prepped and draped sterilely. A 19g needle was inserted under negative pressure aspiration and dark venous blood was obtained. A guidewire was inserted easily without resistance. A small incision was made using a #11 blade. Using a modified Seldinger technique, the dilator and 7 Sammarinese, 20 cm catheter were advanced over the guidewire without resistance. All ports were aspirated and flushed, and had brisk blood return. The line was secured at 20 cm at the skin using 2-0 silk interrupted sutures. A Biopatch and Transparent sterile dressing were applied. There were no immediate complications noted. There was minimal EBL. The patient tolerated the procedure well. Ultrasound guidance was not used for this procedure A Chest x-ray has been ordered. I personally performed the procedure. Dakota Sanchez MD Apr 27, 2016 05:01
[2016-04-27 05:02] LABS: BICARBONATE 16.2 MEQ/L (21.0-32.0); MAGNESIUM 1.4 MG/DL (1.5-2.5); TOTAL BILIRUBIN ADULT 1.1 MG/DL (0.2-1.0)
--- NOTE | 2016-04-27 05:03 | PD.PROCEDR ---
Procedure Note Procedure Endotracheal Intubation Diagnosis: Severe acute pancreatitis Indications: Acute hypoxic respiratory failure Consent: Verbal consent was obtained from the patient. Anesthesia: Versed 10 mg IV, succinylcholine 120 mg IV Description of the Procedure: The patient was positioned in the sniffing position. Pre-oxygenation was performed using a [id number]. Anesthesia was induced via rapid sequence. A Duque #2 was used for laryngoscopy and a Grade I view was obtained. A 8.5 cuffed endotracheal tube was inserted atraumatically through the vocal cords. Confirmation of correct endotracheal tube placement was made by equal and bilateral breath sounds and colorimetric CO2 detection. The endotracheal tube was secured at 23 cm at the teeth. There were no immediate complications noted. The patient remained hemodynamically stable throughout the procedure. A chest x-ray has been ordered. I personally performed the procedure. Dakota Sanchez MD Apr 27, 2016 05:03
[2016-04-27 05:15] LABS: CALCIUM-PROTEIN CORRECTED 6.4 MG/DL (8.5-10.1)
[2016-04-27 05:22] LABS: OVALOCYTES 1+ (NORMAL); SCAN/DIFF AUTO DIFF CONFIRMED
--- NOTE | 2016-04-27 05:27 | PD.CONS ---
[facility] Service Critical Care Medicine Consult Requested By Dr. Dover Reason for Consult hypoxia Primary Care Physician ELIEL Liu History of Present Illness This is a 65-year-old male with history of COPD, strong alcohol abuse history, diabetes, questionable history of heart failure, coronary artery disease who initially presented to the emergency department 04/25 with abdominal pain and was found to have acute pancreatitis. He was noted to the hospital at that time. Over the subsequent 48 hours, he developed worsening hypoxia as well as an acute kidney injury. This was initially thought to be CHF exacerbation and volume overload. He was given diuretics without a good response. His creatinine has trended up to 6. Nephrology was consulted and are considering renal replacement therapy. Tonight throughout the night, the patient became more hypoxic and dyspneic with increasing oxygen requirement. He is transferred to the ICU for his acute hypoxic respiratory failure. The patient is nauseated and has vomited a few times. On my evaluation, the patient is to dyspneic and in respiratory distress to completely answer a history. He does endorse abdominal pain and significant shortness of breath. Denied chest pain. On my evaluation, the patient does not have any overt signs of volume overload. His neck veins are flat. I performed a bedside critical care ultrasound which showed a very collapsible almost flat IVC, a decompressed RV with good RV function, grossly preserved LV systolic function. His mucous membranes are dry. He does not have a Hardin catheter, and has not urinated today. He does have a chest x-ray which demonstrates bilateral consolidative changes in all lung whalen. Review of Systems ROS Limitations: Clinical Condition, Altered Mental Status Past Family Social History Allergies: Coded Allergies: Penicillin (Verified Allergy, Severe, HIVES, 04/24/16) Past Medical History Due to the patient's clinical condition, a past medical history is unobtainable. Per chart review: COPD HTN DM seizure disorder gout history of pancreatitis Congestive heart failure? Atrial fibrillation? Past Surgical History Due to the patient's clinical condition, past surgical history is unobtainable. Per chart review: Appendectomy Bone Spur resection from right arm Colonoscopy 2013 with AVMs in colon, hemorrhoids, polyps Reported Medications Due to the patient's clinical condition, an active home med list is unobtainable. Per chart review: Prednisone 20 Mg Tab 40 Mg PO DAILY Nitroglycerin SL (Nitroglycerin) 0.4 Mg Subl 0.4 Mg SL DIRECTED PRN ONE TABLET UNDER THE TONGUE NEEDED FOR CHEST PAIN, MAY REPEAT EVERY FIVE MINUTES FOR A TOTAL OF 3 DOSES OR CALL 911 IF NO RELIEF Spiriva Handihaler (Tiotropium Inh) 18 Mcg Cap 18 Mcg INH DAILY 1 capsule = 18 mcg Daliresp (Roflumilast) 500 Mcg Tab 500 Mcg PO DAILY Dilantin (Phenytoin Extended) 100 Mg Cap 300 Mg PO DAILY Omeprazole 40 Mg Cap 40 Mg PO DAILY Metformin (Metformin HCl) 1,000 Mg Tab 1,000 Mg PO BIDPC With meals Hydrochlorothiazide 25 Mg Tab 25 Mg PO BID Gabapentin 600 Mg Tab 600 Mg PO TID Clonidine (Clonidine HCl) 0.1 Mg Tab 0.1 Mg PO Q12HR Amlodipine (Amlodipine Besylate) 5 Mg Tab 5 Mg PO BID Symbicort Inh (Budesonide/Formoterol Fumarate) 160-4.5 Mcg/Act Aero 2 Puff INH Q12HR Allopurinol 300 Mg Tab 300 Mg PO DAILY Ventolin Hfa 18 GM Inh (Albuterol Sulfate) 90 Mcg/Act Aer 2 Puff INH Q4-6H PRN Albuterol Neb (Albuterol Sulfate) 2.5 Mg/0.5 Ml Neb 2.5 Mg NEB QID NEB PRN Note: The Albuterol Sulfate Inhalation Solution is concentrated and must be diluted. Read complete instructions carefully before using. Active Ordered Medications See MAR Family History Due to the patient's clinical condition, family history is unobtainable. Per chart review: Mother with HTN, DM, Father with HTN, unknown cancer, Social History Due to the patient's clinical condition, the social history is unobtainable. Per chart review: Smokes tobacco, patient not very forthcoming with how much he smokes, states "occasionally" Drinks about 10 bottles of beer daily. No illicit drug use Physical Exam Vital Signs Vital Signs Date Time Temp Pulse Resp B/P Pulse Ox O2 Delivery O2 Flow Rate FiO2 04/27/16 01:58 112 28 139/93 95 04/27/16 01:46 94 04/27/16 01:40 118 28 155/102 91 04/27/16 00:09 100 20 139/83 98 04/26/16 23:21 97 04/26/16 22:38 95 Nasal Cannula 4.00 04/26/16 20:00 98.7 87 20 147/82 95 04/26/16 16:00 96.6 72 22 170/107 95 04/26/16 12:00 97.6 75 20 120/82 96 04/26/16 10:12 94 Nasal Cannula 2.00 04/26/16 08:00 97.0 88 20 105/71 97 Physical Exam GENERAL: Middle-aged male, lying in bed, critically ill, and in severe respiratory distress HEENT: Normocephalic. Atraumatic. Pupils equally round and reactive. Scleral icterus is present. Mucous membranes are dry. NECK: Trachea is midline. Neck veins are noticeably flat. CHEST: Labored respirations. Tachypneic. Coarse rales throughout all lung whalen. SPO2 92% on 5 L nasal cannula CARDIOVASCULAR: Tachycardic rate, irregular rhythm with frequent PVCs on the monitor. No appreciable murmurs. ABDOMEN: Protuberant, distended, soft, moderately tender to palpation, no guarding or peritoneal signs. MUSCULOSKELETAL: No peripheral edema. Distal pulses 2+. NEUROLOGICAL: RASS -1. Follows commands all 4 extremities. Laboratory Laboratory Tests Test 04/26/16 04/26/16 04/27/16 06:40 10:05 04:25 White Blood Count 19.3 Red Blood Count 4.79 Hemoglobin 12.6 Hematocrit 38.8 Mean Corpuscular Volume 81.2 Mean Corpuscular Hemoglobin 26.3 Mean Corpuscular Hemoglobin 32.4 Concent Red Cell Distribution Width 17.8 Platelet Count 141 Mean Platelet Volume 9.7 Neutrophils (%) (Auto) 85.5 Lymphocytes (%) (Auto) 4.8 Monocytes (%) (Auto) 9.5 Eosinophils (%) (Auto) 0.0 Basophils (%) (Auto) 0.2 Neutrophils # (Auto) 16.5 Lymphocytes # (Auto) 0.9 Monocytes # (Auto) 1.8 Eosinophils # (Auto) 0.0 Basophils # (Auto) 0.0 CBC Comment DIFF FINAL Differential Comment Sodium Level 138 Potassium Level 4.2 Chloride Level 105 Carbon Dioxide Level 19.7 Anion Gap 13 Blood Urea Nitrogen 48 Creatinine 6.22 Estimat Glomerular Filtration 11 Rate Random Glucose 106 Calcium Level LESS THAN 5.0 Protein Corrected Calcium 5.4 Total Protein 6.1 Blood Gas Puncture Site ART LINE Blood Gas Patient Temperature 98.6 Blood Gas HCO3 14 Blood Gas Base Excess -13.4 Blood Gas Oxygen Saturation 97 Arterial Blood pH 7.14 Arterial Blood Partial 43 Pressure CO2 Arterial Blood Partial 324 Pressure O2 Arterial Blood Oxygen Content 14.9 Arterial Blood 1.1 Carboxyhemoglobin Arterial Blood Methemoglobin 1.3 Blood Gas Hemoglobin 10.3 Oxygen Delivery Device VENTILATOR Blood Gas Ventilator Setting PRVC/AC Blood Gas Inspired Oxygen 100 Date/Time Procedure Status Source Growth 04/24/16 14:05 Aerobic Blood Culture - Preliminary Resulted Blood Peripheral NO GROWTH IN 2 DAYS 04/24/16 14:05 Anaerobic Blood Culture - Preliminary Resulted Blood Peripheral NO GROWTH IN 2 DAYS Result Diagram: 04/26/16 0640 04/26/16 1005 Imaging Critical care bedside ultrasound 04/27: Grossly preserved left ventricular function. Normal RV size and function. Small collapsible IVC which very strongly with respirations and is almost completely flat with inspiration. No pericardial effusion. Assessment and Plan Assessment and Plan Assessment: This is a 65-year-old male with strong alcohol abuse history who presented on 116 with acute pancreatitis and now has acute hypoxic respiratory failure, severe acute kidney injury. My clinical assessment of the patient is that he is likely in ARDS secondary to severe acute pancreatitis as well as severe intravascular volume depletion secondary to surgeries response and third spacing of intravascular volume into the abdomen. He still has severe hypocalcemia and severely elevated lipase which would all point to the fact that he still has ongoing active pancreatitis. I've given the patient 1 L of LR bolus fluid. We intubated the patient for his acute hypoxic respiratory failure. At this point I placed arterial line and central venous catheter, please see separate procedure note for details. His initial CVP was 4 after the 1 L fluid bolus. I subsequently gave him a second liter of LR bolus and started him on a maintenance fluids of LR at 200 cc an hour. We placed a Hardin catheter with urometer which initially had 125 cc of urine output. We will monitor his urine output hourly. We may yet need renal replacement therapy, although at this point I do not see an emergent indication for dialysis. I think the patient needs to be volume resuscitated and stabilized. His white blood cell count is coming down. We have sent blood, urine, and sputum cultures. I do not think there is a superimposed secondary bacterial infection and I have not covered him with antibiotics at this time. If he becomes more unstable, I think the next step in management would be to repeat his CT of abdomen and pelvis to see if this is progressed a necrotizing acute pancreatitis. However, given his hemodynamic stability at this moment and his downtrending white count, we will hold off on further imaging. Clearly, the patient remains severely critically ill in multiorgan system failure, distributive shock, acute kidney injury which may yet require renal replacement therapy, severe acute hypoxic respiratory failure, ARDS. His prognosis is guarded this time, especially considering his significant medical comorbidities before time of admission. Plan by systems: Neurologic: Alcohol abuse Metabolic encephalopathy Propofol and fentanyl for goal RASS Goal RASS -2. Discontinue CIWA protocol at this time We'll monitor for alcohol withdrawal Respiratory: Acute hypoxic respiratory failure ARDS COPD Low tidal volume ventilation turning 6 cc/kg ideal body weight Vent bundle Head of bed at 30 Wean FiO2 for goal SPO2 greater than 90% Nebs every 6 and every 2 when necessary Cardiovascular: Sinus tachycardia SIRS response Continue telemetry SIRS likely 2/2 acute pancreatitis Renal: Acute kidney injury Likely has a component of prerenal, but also likely from acute pancreatitis We'll place Hardin with urometer. Every hour urine outputs -- Strict I/Os FEN/GI: Severe intravascular volume depletion Severe acute pancreatitis Severe hypocalcemia Metabolic acidosis 2 L LR fluid bolus LR maintenance fluids at 200 cc an hour Strict nothing by mouth Place OG tube to wall suction 3 g calcium gluconate IV 1 His metabolic acidosis is likely secondary to his acute pancreatitis. I do not see an indication to give him sodium bicarbonate at this time, given the fact that this is a gapped acidosis. He is not hemodynamically unstable. Daily BMP, LFTs, lipase Heme/ID: Leukocytosis Likely reactive secondary to acute pancreatitis I do not think he is infected at this point. Urine, sputum, blood cultures. We will hold off on starting empiric antibiotics. Daily CBC Endocrine: Diabetes -- SSI, medium scale, every 6 hours Prophylaxis: GI Prophylaxis Protonix 40 mg IV daily 24 hours DVT Prophylaxis -- SCDs Heparin 5000 every 8 Lines: 04/27 left radial arterial line 04/27 left subclavian triple-lumen catheter Hardin Dispo: Admit to the ICU. He is severely critically ill this time This patient remains critically ill with one or more organ systems which are or may become a threat to life. I have spent in excess of 87 minutes discontinuously in the care and management of this patient. This time is exclusive of procedures, and includes, but is not limited to, evaluation of the patient, review of the medical record, discussions with family, consultants, nursing staff, or respiratory therapy, and documentation in the medical record. Code Status Full Code Dakota Sanchez MD Apr 27, 2016 05:27
[2016-04-27] MEDS ORDERED: CALCIUM GLUCONATE INJ 3 GM in SODIUM CHLORIDE 0.9% INJ 150 ML IV ONE (05:30)
[2016-04-27] MEDS: fentaNYL DRIP 250 ML IV SCH ×2 (05:43→17:24)
[2016-04-27] MEDS: LACTATED RINGER'S 1000 ML INJ 1,000 ML IV SCH ×2 (05:46→09:15)
[2016-04-27] MEDS: INSULIN NovoLIN REGULAR SUPPLEMENTAL SCALE SQ SCH ×3 (06:00→23:34)
[2016-04-27] MEDS ORDERED: MAGNESIUM SULFATE 2 GM/NS 100 ML IV ONE ×2 (06:15)
[2016-04-27 06:20] LABS: BACTERIA, URINE MOD /hpf; BLOOD, URINE MOD (NEG); CALCIUM OXALATE CRYSTALS,URINE OCC /hpf; COMMENT (UR) CATH-CULTURE IND; CULTURE IF INDICATED CATH CULTURE IND; GLUCOSE,URINE NEG (NEG); HYALINE CAST, URINE 19 /lpf (RARE); KETONE, URINE NEG (NEG); MUCUS URINE FEW /lpf (OCC); NITRITE,URINE NEG (NEG); PH, URINE 5.5 (5.0-8.5); SQUAMOUS EPITHELIAL CELL URINE 4 /hpf (0-5); URINE COLOR DARK-YELLOW (YELLW/STRAW)
--- NOTE | 2016-04-27 06:40 | RADRPT ---
EXAM DATE/TIME: 04/27/2016 04:42 [facility] COMPARISON: CHEST SINGLE AP, April 25, 2016, 21:25. INDICATIONS : ET tube, central line placement MEDICAL HISTORY : Congestive heart failure. Arthritis. Pancreatitis. ETOH abuse. Diabetes. SURGICAL HISTORY : None. ENCOUNTER: Subsequent ACUITY: 4 - 6 days PAIN SCORE: Non-responsive. LOCATION: Bilateral chest FINDINGS: Endotracheal tube is present with tip 4 cm above the saundra. Left subclavian central line is in good position with tip overlying SVC. Bilateral basilar infiltrates are present more confluent on the left than the right. Cardiac contours are grossly stable. CONCLUSION: Satisfactory support line and tube positioning. Basilar infiltrates. Mason Lopez MD on April 27, 2016 at 6:38 Board Certified Radiologist. This report was verified electronically.
--- NOTE | 2016-04-27 07:22 | RADRPT ---
EXAM DATE/TIME: 04/27/2016 06:16 [facility] COMPARISON: No previous studies available for comparison. INDICATIONS : Vomiting. MEDICAL HISTORY : Congestive heart failure. Arthritis. Pancreatitis. ETOH abuse. Diabetes. SURGICAL HISTORY : None. ENCOUNTER: Initial ACUITY: 1 day PAIN SCORE: Non-responsive. LOCATION: abdomen FINDINGS: Supine view of the abdomen was performed. There is air within distended small bowel in the left mid abdomen. Small bowel right lower quadrant does not appear distended. The transverse colon is mildly d istended. There appears to be a rectal tube in place. Free air is not seen. No abnormal masses, calci fications, or organomegaly is seen. Spurs are seen in the lumbar spine. CONCLUSION: Mildly dilated small bowel in the left midabdomen. Some degree of obstruction or ileus cannot be excl uded. Mason Monge MD on April 27, 2016 at 7:18 Board Certified Radiologist. This report was verified electronically.
[2016-04-27] MEDS: RESP: ALBUTEROL 2.5 MG/IPRATROPIUM 0.5 MG NEB (SCH) INH ×3 (07:59→21:00)
[2016-04-27] MEDS: oxyCODONE HCL ORAL CONC 20 MG/ML SYRINGE PO SCH ×5 (08:00→23:57)
--- NOTE | 2016-04-27 08:11 | EKG ---
Date Performed: 04/26/2016 Time Performed: 09:17:15 PTAGE: 65 years EKG: Sinus rhythm WITH OCCASIONAL SUPRAVENTRICULAR PREMATURE COMPLEXES POSSIBLE INFERIOR MYOCARDIAL INFARCTION , PROBA HARVEY OLD MILDLY PROLONGED QT INTERVAL NO MAJOR CHANGE FROM THE PRIOR TRACING BORDERLINE ECG PREVIOUS TRACING : 04/24/2016 12.08 DOCTOR: Raudel Rhodes Interpretating Date/Time 04/27/2016 08:09:48
[2016-04-27] MEDS ORDERED: HEPARIN SODIUM - IV 10,000 UNITS/10 ML VIAL ONE (08:47)
[2016-04-27] MEDS: CHLORHEXIDINE 0.12% (ORAL KIT) 15 ML CUP MT SCH ×2 (09:14→22:33)
[2016-04-27] MEDS: PANTOPRAZOLE SODIUM 40 MG VIAL IV SCH (09:15)
[2016-04-27] MEDS: SODIUM CHLORIDE 0.9% FLUSH 5 ML FLUSH IV FLUSH SCH ×2 (09:15→22:34)
[2016-04-27] MEDS: PROPOFOL 1000 MG/100 ML INJ 100 ML IV SCH ×4 (09:18→23:34)
--- NOTE | 2016-04-27 10:11 | PD.PROCEDR ---
Procedure Note Procedure DX: NATALY (N17.9) OP: Insertion Left Internal Jugular Vein Hemodialysis Catheter ([id number]) Procedure: Left neck prepped and draped. Left internal jugular vein cannulated with ultrasound guidance and wire easily advanced. Catheter passed over wire to 19 cm. Lumens aspirated and flushed. Dressing applied. CXR ordered , will review. Adithya Paulson MD Apr 27, 2016 10:11
--- NOTE | 2016-04-27 11:05 | RADRPT ---
EXAM DATE/TIME: 04/27/2016 10:28 [facility] COMPARISON: CHEST SINGLE AP, April 27, 2016, 4:42. INDICATIONS: Central line placement. MEDICAL HISTORY: Cardiovascular disease. Chronic obstructive pulmonary disease. Diabetes mellitus type 2. SURGICAL HISTORY: Appendectomy. ENCOUNTER: Subsequent ACUITY: 3 days PAIN SCORE: Non-responsive. LOCATION: Bilateral chest FINDINGS: ET tube, dialysis catheter are in good position. Minimal bibasilar parenchymal changes are noted wor se on the left than the right, increasing in the interval. CONCLUSION: 1. Dialysis catheter in good position. 2. Increasing bibasilar parenchymal changes worse on the left. Kermit Rollins MD FACR on April 27, 2016 at 10:58 Board Certified Radiologist. This report was verified electronically.
[2016-04-27] MEDS ORDERED: SODIUM CHLOR 0.9% 1000 ML INJ 1,000 ML IV PRN ×3 (13:10)
[2016-04-27] MEDS ORDERED: GELATIN 12 MM/7 MM FOAM TOP PRN (13:15)
[2016-04-27] MEDS ORDERED: cloNIDine HCL 0.1 MG TAB PO PRN (13:15)
[2016-04-27] MEDS ORDERED: NITROGLYCERIN 0.4 MG SL 25 TABS/BTL SL PRN (13:15)
[2016-04-27] MEDS ORDERED: HEPARIN SODIUM - IV 10,000 UNITS/10 ML VIAL IVF PRN (13:15)
[2016-04-27] MEDS ORDERED: ACETAMINOPHEN 325 MG TAB PO PRN (13:15)
[2016-04-27] MEDS ORDERED: ONDANSETRON HCL 4 MG/2 ML VIAL IV PRN (13:15)
[2016-04-27] MEDS ORDERED: SODIUM CHLORIDE 0.9% FLUSH 5 ML FLUSH IVF PRN (13:15)
--- NOTE | 2016-04-27 13:23 | HHI.NPPN ---
Subjective History of Present Illness 65 year old with Acute pancreatitis, ARF, Respiratory distress, now intubated on hemodialysis Objective Data Data 04/26/16 04/27/16 19:00 07:00 Intake Total 1200 ml 2196 ml Output Total 800 ml 360 ml Balance 400 ml 1836 ml Intake Oral 1200 ml IV Total 2196 ml Output Urine Total 800 ml 360 ml Bladder Scan Volume Amount 7 ml # Voids 1 # Bowel Movements 1 Vital Signs Date Time Temp Pulse Resp B/P Pulse Ox O2 Delivery O2 Flow Rate FiO2 04/27/16 11:39 97 40 04/27/16 07:50 95 45 04/27/16 05:20 100 45 04/27/16 04:14 98 100 04/27/16 04:00 45 04/27/16 04:00 98.6 106 18 160/90 99 04/27/16 01:58 112 28 139/93 95 04/27/16 01:46 94 04/27/16 01:40 118 28 155/102 91 04/27/16 00:09 100 20 139/83 98 04/26/16 23:21 97 04/26/16 22:38 95 Nasal Cannula 4.00 04/26/16 20:00 98.7 87 20 147/82 95 04/26/16 16:00 96.6 72 22 170/107 95 -: 04/27/16 0430 04/27/16 0420 Microbiology 04/27/16 Aerobic Blood Culture, Received Pending 04/27/16 Anaerobic Blood Culture, Received Pending 04/27/16 Gram Stain - Final, Resulted 04/27/16 Sputum Culture, Resulted Pending 04/27/16 Urine Culture, Received Pending 04/27/16 Aerobic Blood Culture, Received Pending 04/27/16 Anaerobic Blood Culture, Received Pending Physical Exam General Appearance: Well Developed Neck Neck Exam: Neck Supple Pulmonary Resp Exam: Decreased Bases Cardiology CV Exam: Tachycardia Gastrointestinal/Abdomen GI Exam: Distended Extremeties Extremities Exam: Moderate Edema Assessment/Plan Problem List: (1) Acute renal failure Plan: Patient has renal failure likely due to complications of pancreatitis and developed acute tubular necrosis now on hemodialysis tolerating it well 2 L UF 2K/HCO3 follow renal functions UOP Better with fluids and diuretic (2) Hypocalcemia Plan: Continue to replace her calcium is received calcium gluconate (3) Pancreatitis Plan: Severe pancreatitis with acute renal failure severe hypocalcemia and developing acidosis and ARDS (4) Abdominal pain Plan: Distention due to pancreatitis (5) COPD exacerbation Plan: Continue treatment (6) Thrombocytopenia Plan: improved Problem Qualifiers (1) Acute renal failure: Qualified Code: N17.0 - Acute renal failure with tubular necrosis (2) Pancreatitis: Qualified Code: K85.20 - Alcohol-induced acute pancreatitis, unspecified complication status (3) Abdominal pain: Qualified Code: R10.12 - Left upper quadrant pain Janett Crane MD Apr 27, 2016 13:23
[2016-04-27] MEDS: SODIUM CHLOR 0.9% 1000 ML INJ 1,000 ML IV PRN (13:27)
[2016-04-27] MEDS: HYDROmorphone HCL PF 1 MG/ML VIAL IV PUSH PRN (23:06)
[2016-04-28] VITALS (15 sets, daily range): BP systolic 96–124; BP diastolic 44–64; PULSE 63–82; RESP 18–23; TEMP 97.5–99.3; O2SAT 91–99
[2016-04-28] MEDS: LACTATED RINGER'S 1000 ML INJ 1,000 ML IV SCH ×2 (01:32→20:40)
[2016-04-28] MEDS: PROPOFOL 1000 MG/100 ML INJ 100 ML IV SCH ×6 (02:18→20:41)
[2016-04-28] MEDS: RESP: ALBUTEROL 2.5 MG/IPRATROPIUM 0.5 MG NEB (SCH) INH ×4 (03:34→21:28)
[2016-04-28] MEDS: oxyCODONE HCL ORAL CONC 20 MG/ML SYRINGE PO SCH ×6 (04:00→22:03)
[2016-04-28] MEDS: CHLORHEXIDINE GLUCONATE 2 % 1 PACK (2 CLOTHS) TOP SCH (04:47)
[2016-04-28] MEDS: HYDROmorphone HCL PF 1 MG/ML VIAL IV PUSH PRN ×2 (04:56→22:03)
[2016-04-28 05:31] LABS: HEMATOCRIT 27.4 % (39.0-51.0); MEAN CELL VOLUME 80.9 FL (80.0-100.0); MEAN CORPUSCULAR HGB CONC 32.1 % (32.0-36.0); PLATELET COUNT 144 TH/MM3 (150-450); RED BLOOD COUNT 3.38 MIL/MM3 (4.50-5.90); RED CELL DISTRIBUTION WIDTH 17.6 % (11.6-17.2); REVIEW FLAG FINAL; WHITE BLOOD COUNT 12.5 TH/MM3 (4.0-11.0)
[2016-04-28 05:58] LABS: BICARBONATE 21.4 MEQ/L (21.0-32.0); INDIRECT BILIRUBIN 0.3 MG/DL (0.0-0.8); POTASSIUM 4.2 MEQ/L (3.5-5.1); TOTAL BILIRUBIN ADULT 0.9 MG/DL (0.2-1.0)
[2016-04-28] MEDS: INSULIN NovoLIN REGULAR SUPPLEMENTAL SCALE SQ SCH ×3 (06:00→18:00)
[2016-04-28 07:09] LABS: CALCIUM-PROTEIN CORRECTED 7.2 MG/DL (8.5-10.1)
[2016-04-28] MEDS: PANTOPRAZOLE SODIUM 40 MG VIAL IV SCH (08:35)
[2016-04-28] MEDS: CHLORHEXIDINE 0.12% (ORAL KIT) 15 ML CUP MT SCH ×2 (08:36→20:40)
[2016-04-28] MEDS: HEPARIN SODIUM - SQ 10,000 UNITS/ML VIAL SQ SCH ×3 (08:36→22:03)
[2016-04-28] MEDS: fentaNYL DRIP 250 ML IV SCH ×2 (08:37→15:29)
[2016-04-28] MEDS: SODIUM CHLORIDE 0.9% FLUSH 5 ML FLUSH IV FLUSH SCH ×2 (08:44→20:40)
--- NOTE | 2016-04-28 09:44 | HHI.NPPN ---
Subjective History of Present Illness 65 year old with Acute pancreatitis, ARF, Respiratory distress, now intubated on hemodialysis Objective Data Data 04/27/16 04/28/16 19:00 07:00 Intake Total 1534 ml Output Total 2000 ml 650 ml Balance -2000 ml 884 ml IV Total 1534 ml Output Urine Total 650 ml Hemodialysis 2000 ml Vital Signs Date Time Temp Pulse Resp B/P Pulse Ox O2 Delivery O2 Flow Rate FiO2 04/28/16 04:00 40 04/28/16 04:00 98.1 63 19 121/55 99 04/28/16 03:33 99 40 04/28/16 00:33 99 40 04/28/16 00:00 40 04/28/16 00:00 98.2 70 23 106/50 96 04/27/16 21:00 97 40 04/27/16 20:00 97.9 70 22 112/54 97 04/27/16 20:00 70 04/27/16 20:00 40 04/27/16 18:00 73 04/27/16 16:00 98.2 74 19 108/58 97 04/27/16 16:00 40 04/27/16 16:00 75 04/27/16 15:31 97 40 04/27/16 14:00 71 04/27/16 12:00 98.2 74 19 108/58 97 04/27/16 12:00 40 04/27/16 12:00 74 04/27/16 11:39 97 40 04/27/16 10:00 77 -: 04/28/16 0500 04/28/16 0500 Physical Exam General Appearance: Well Developed Neck Neck Exam: Neck Supple Pulmonary Resp Exam: Decreased Bases Cardiology CV Exam: Tachycardia Gastrointestinal/Abdomen GI Exam: Distended Extremeties Extremities Exam: Moderate Edema Assessment/Plan Problem List: (1) Acute renal failure Plan: Patient has renal failure likely due to complications of pancreatitis and developed acute tubular necrosis now on hemodialysis follow renal functions Creatinine declined and acidosis resolved (2) Hypocalcemia Plan: Continue to replace her calcium is received calcium gluconate (3) Pancreatitis Plan: Severe pancreatitis with acute renal failure severe hypocalcemia and developing acidosis and ARDS (4) Abdominal pain Plan: Distention due to pancreatitis (5) COPD exacerbation Plan: Continue treatment (6) Thrombocytopenia Plan: improved Problem Qualifiers (1) Acute renal failure: Qualified Code: N17.0 - Acute renal failure with tubular necrosis (2) Pancreatitis: Qualified Code: K85.20 - Alcohol-induced acute pancreatitis, unspecified complication status (3) Abdominal pain: Qualified Code: R10.12 - Left upper quadrant pain Janett Crane MD Apr 28, 2016 09:44
[2016-04-28] MEDS: SODIUM CHLOR 0.9% 1000 ML INJ 1,000 ML IV PRN (10:36)
[2016-04-28] MEDS: GENTAMICIN SULFATE (DIALYSIS USE ONLY) 20 MG/2 ML VIAL IV PRN (10:37)
[2016-04-28] MEDS: HEPARIN SODIUM - IV 10,000 UNITS/10 ML VIAL PRN (10:37)
[2016-04-28] MEDS: ALBUMIN HUMAN 25% 25 GM/100 ML BAGP IV PRN (10:47)
[2016-04-28] MEDS: MANNITOL 12.5 GM/50 ML VIAL IV PRN (10:47)
[2016-04-28] MEDS: EPOETIN ALFA 10,000 UNITS/ML VIAL IV PRN (10:53)
--- NOTE | 2016-04-28 15:24 | HHI.CCPN ---
Subjective Remarks/Hospital Course This is a 65-year-old male with history of COPD, strong alcohol abuse history, diabetes, questionable history of heart failure, coronary artery disease who initially presented to the emergency department 04/25 with abdominal pain and was found to have acute pancreatitis. He was noted to the hospital at that time. Over the subsequent 48 hours, he developed worsening hypoxia as well as an acute kidney injury. This was initially thought to be CHF exacerbation and volume overload. He was given diuretics without a good response. His creatinine has trended up to 6. Nephrology was consulted and are considering renal replacement therapy. Tonight throughout the night, the patient became more hypoxic and dyspneic with increasing oxygen requirement. He is transferred to the ICU for his acute hypoxic respiratory failure. The patient is nauseated and has vomited a few times. 04/28: Intubated for respiratory distress with hypoxemia, now with acceptable gas exchange. Tolerating dialysis, try to extubate shortly. Objective Vital Signs Date Time Temp Pulse Resp B/P Pulse Ox O2 Delivery O2 Flow Rate FiO2 04/28/16 12:00 40 04/28/16 12:00 67 04/28/16 12:00 97.5 18 124/64 98 04/26/16 22:38 Nasal Cannula 4.00 Intake and Output 04/27/16 04/27/16 04/28/16 08:00 16:00 00:00 Intake Total 2196 ml 768 ml Output Total 235 ml 2000 ml 300 ml Balance 1961 ml -2000 ml 468 ml Result Diagram: 04/28/16 0500 04/28/16 0500 Imaging Critical care bedside ultrasound 04/27: Grossly preserved left ventricular function. Normal RV size and function. Small collapsible IVC which very strongly with respirations and is almost completely flat with inspiration. No pericardial effusion. Objective Remarks GENERAL: Middle-aged male, calm HEENT: Normocephalic. Atraumatic. NECK: Trachea is midline. Supple, orally intubated. CHEST: Coarse rales throughout all lung whalen. Good ling air movement. CARDIOVASCULAR: Tachycardic rate, irregular rhythm. No appreciable murmurs. ABDOMEN: Protuberant, distended, soft, mildly tender to palpation, no guarding or peritoneal irritation.. MUSCULOSKELETAL: No peripheral edema. Distal pulses 2+. Warm, well perfused. NEUROLOGICAL: RASS -1. Follows commands all 4 extremities. A/P Assessment and Plan Assessment: This is a 65-year-old male with strong alcohol abuse history who presented on 116 with acute pancreatitis and now has acute hypoxic respiratory failure, severe acute kidney injury. My clinical assessment of the patient is that he is likely in ARDS secondary to severe acute pancreatitis as well as severe intravascular volume depletion secondary to surgeries response and third spacing of intravascular volume into the abdomen. He still has severe hypocalcemia and severely elevated lipase which would all point to the fact that he still has ongoing active pancreatitis. I've given the patient 1 L of LR bolus fluid. We intubated the patient for his acute hypoxic respiratory failure. At this point I placed arterial line and central venous catheter, please see separate procedure note for details. His initial CVP was 4 after the 1 L fluid bolus. I subsequently gave him a second liter of LR bolus and started him on a maintenance fluids of LR at 200 cc an hour. We placed a Hardin catheter with urometer which initially had 125 cc of urine output. We will monitor his urine output hourly. We may yet need renal replacement therapy, although at this point I do not see an emergent indication for dialysis. I think the patient needs to be volume resuscitated and stabilized. His white blood cell count is coming down. We have sent blood, urine, and sputum cultures. I do not think there is a superimposed secondary bacterial infection and I have not covered him with antibiotics at this time. If he becomes more unstable, I think the next step in management would be to repeat his CT of abdomen and pelvis to see if this is progressed a necrotizing acute pancreatitis. However, given his hemodynamic stability at this moment and his downtrending white count, we will hold off on further imaging. Clearly, the patient remains severely critically ill in multiorgan system failure, distributive shock, acute kidney injury which may yet require renal replacement therapy, severe acute hypoxic respiratory failure, ARDS. His prognosis is guarded this time, especially considering his significant medical comorbidities before time of admission. Plan by systems: Neurologic: Alcohol abuse Metabolic encephalopathy Propofol and fentanyl for goal RASS Goal RASS -2. Discontinue CIWA protocol at this time We'll monitor for alcohol withdrawal Respiratory: Acute hypoxic respiratory failure ARDS COPD Low tidal volume ventilation turning 6 cc/kg ideal body weight Vent bundle Head of bed at 30 Wean FiO2 for goal SPO2 greater than 90% Nebs every 6 and every 2 when necessary Cardiovascular: Sinus tachycardia SIRS response Continue telemetry SIRS likely 2/2 acute pancreatitis Renal: Acute kidney injury Likely has a component of prerenal, but also likely from acute pancreatitis We'll place Hardin with urometer. Every hour urine outputs -- Strict I/Os FEN/GI: Severe intravascular volume depletion Severe acute pancreatitis Severe hypocalcemia Metabolic acidosis 2 L LR fluid bolus LR maintenance fluids at 200 cc an hour Strict nothing by mouth Place OG tube to wall suction 3 g calcium gluconate IV 1 His metabolic acidosis is likely secondary to his acute pancreatitis. I do not see an indication to give him sodium bicarbonate at this time, given the fact that this is a gapped acidosis. He is not hemodynamically unstable. Daily BMP, LFTs, lipase Heme/ID: Leukocytosis Likely reactive secondary to acute pancreatitis I do not think he is infected at this point. Urine, sputum, blood cultures. We will hold off on starting empiric antibiotics. Daily CBC Endocrine: Diabetes -- SSI, medium scale, every 6 hours Prophylaxis: GI Prophylaxis Protonix 40 mg IV daily 24 hours DVT Prophylaxis -- SCDs Heparin 5000 every 8 Lines: 04/27 left radial arterial line 04/27 left subclavian triple-lumen catheter Hardin Overall impression: Improved oxygenation, fluid balance better. Adithya Paulson MD Apr 28, 2016 15:24
[2016-04-28 16:41] LABS: BLOOD GAS CARBOXYHEMOGLOBIN 1.2 % (0-4); BLOOD GAS HCO3 22 mmol/L (22-26); BLOOD GAS METHEMOGLOBIN 1.5 % (0-2); BLOOD GAS O2 HGB SATURATION 94 % (90-100); BLOOD GAS OXYGEN CONTENT 11.8 Vol % (12.0-20.0); BLOOD GAS PCO2 37 mmHg (38-42); BLOOD GAS PO2 97 mmHg (61-120); BLOOD GAS TOTAL HGB 8.8 G/DL (12.0-16.0); CRITICAL VALUE NO; OXYGEN DEVICE VENTILATOR; TEMP CORR TO 98.6
[2016-04-28 16:42] LABS: DRAW SITE ART LINE; FIO2 40 %; STAT NO
[2016-04-28 17:22] LABS: BICARBONATE 27.3 MEQ/L (21.0-32.0); POTASSIUM 3.7 MEQ/L (3.5-5.1)
[2016-04-28 17:44] LABS: CALCIUM-PROTEIN CORRECTED 6.9 MG/DL (8.5-10.1)
[2016-04-29] VITALS (18 sets, daily range): BP systolic 90–124; BP diastolic 44–58; PULSE 78–101; RESP 18–21; TEMP 99.5–100.6; O2SAT 35–100
[2016-04-29] MEDS: PROPOFOL 1000 MG/100 ML INJ 100 ML IV SCH ×5 (01:10→23:03)
[2016-04-29] MEDS: fentaNYL DRIP 250 ML IV SCH ×3 (02:39→23:03)
[2016-04-29] MEDS: oxyCODONE HCL ORAL CONC 20 MG/ML SYRINGE PO SCH ×6 (04:00→20:53)
[2016-04-29] MEDS: CHLORHEXIDINE GLUCONATE 2 % 1 PACK (2 CLOTHS) TOP SCH (04:00)
[2016-04-29 04:07] LABS: HEMATOCRIT 27.2 % (39.0-51.0); MEAN CELL VOLUME 80.1 FL (80.0-100.0); MEAN CORPUSCULAR HEMOGLOBIN 26.5 PG (27.0-34.0); MEAN CORPUSCULAR HGB CONC 33.1 % (32.0-36.0); PLATELET COUNT 149 TH/MM3 (150-450); RED CELL DISTRIBUTION WIDTH 17.2 % (11.6-17.2); REVIEW FLAG FINAL; WHITE BLOOD COUNT 14.6 TH/MM3 (4.0-11.0)
[2016-04-29] MEDS: RESP: ALBUTEROL 2.5 MG/IPRATROPIUM 0.5 MG NEB (SCH) INH ×4 (04:24→20:08)
[2016-04-29 04:37] LABS: BICARBONATE 24.1 MEQ/L (21.0-32.0); INDIRECT BILIRUBIN 0.3 MG/DL (0.0-0.8); MAGNESIUM 1.9 MG/DL (1.5-2.5); POTASSIUM 3.9 MEQ/L (3.5-5.1); TOTAL BILIRUBIN ADULT 0.9 MG/DL (0.2-1.0)
[2016-04-29 04:44] LABS: CALCIUM-PROTEIN CORRECTED 6.4 MG/DL (8.5-10.1)
[2016-04-29] MEDS: INSULIN NovoLIN REGULAR SUPPLEMENTAL SCALE SQ SCH ×4 (06:00→17:14)
[2016-04-29] MEDS: HEPARIN SODIUM - SQ 10,000 UNITS/ML VIAL SQ SCH ×3 (06:25→23:03)
[2016-04-29] MEDS: CHLORHEXIDINE 0.12% (ORAL KIT) 15 ML CUP MT SCH ×2 (08:05→20:53)
[2016-04-29] MEDS: PANTOPRAZOLE SODIUM 40 MG VIAL IV SCH (08:05)
[2016-04-29] MEDS: SODIUM CHLORIDE 0.9% FLUSH 5 ML FLUSH IV FLUSH SCH ×2 (08:08→21:00)
--- NOTE | 2016-04-29 10:27 | HHI.NPPN ---
Subjective History of Present Illness 65 year old with Acute pancreatitis, ARF, Respiratory distress, now intubated on hemodialysis Objective Data Data 04/28/16 04/29/16 19:00 07:00 Intake Total 921 ml 1534 ml Output Total 2250 ml 200 ml Balance -1329 ml 1334 ml IV Total 921 ml 1534 ml Output Urine Total 250 ml 200 ml Hemodialysis 2000 ml Vital Signs Date Time Temp Pulse Resp B/P Pulse Ox O2 Delivery O2 Flow Rate FiO2 04/29/16 10:00 100 04/29/16 08:38 35 40 04/29/16 08:00 92 04/29/16 08:00 100.6 96 18 101/56 94 Arterial Line 04/29/16 08:00 40 04/29/16 06:00 91 04/29/16 04:20 100 40 04/29/16 04:00 40 04/29/16 04:00 100.4 101 18 124/52 95 04/29/16 04:00 100 04/29/16 02:00 100 04/29/16 00:20 98 40 04/29/16 00:00 99.5 80 18 109/44 100 04/29/16 00:00 40 04/29/16 00:00 78 04/28/16 22:00 82 04/28/16 20:16 98 40 04/28/16 20:00 73 04/28/16 20:00 40 04/28/16 20:00 99.3 72 18 113/50 96 04/28/16 18:00 66 04/28/16 16:30 95 40 04/28/16 16:00 40 04/28/16 16:00 99.0 74 18 105/46 91 04/28/16 16:00 75 04/28/16 14:00 79 04/28/16 12:00 40 04/28/16 12:00 67 04/28/16 12:00 97.5 63 18 124/64 98 04/28/16 11:55 96 40 -: 04/29/16 0330 04/29/16 0330 Physical Exam General Appearance: Well Developed Neck Neck Exam: Neck Supple Pulmonary Resp Exam: Decreased Bases Cardiology CV Exam: Tachycardia Gastrointestinal/Abdomen GI Exam: Distended Extremeties Extremities Exam: Moderate Edema Assessment/Plan Problem List: (1) Acute renal failure Plan: Patient has renal failure likely due to complications of pancreatitis and developed acute tubular necrosis now on hemodialysis done yesterday 2 L off, next Monday follow renal functions Creatinine stable (2) Pancreatitis Plan: Severe pancreatitis with acute renal failure severe hypocalcemia and developing acidosis and ARDS (3) Abdominal pain Plan: Distention due to pancreatitis (4) COPD exacerbation Plan: Continue treatment (5) Thrombocytopenia Plan: improved Problem Qualifiers (1) Acute renal failure: Qualified Code: N17.0 - Acute renal failure with tubular necrosis (2) Pancreatitis: Qualified Code: K85.20 - Alcohol-induced acute pancreatitis, unspecified complication status (3) Abdominal pain: Qualified Code: R10.12 - Left upper quadrant pain Janett Crane MD Apr 29, 2016 10:27
--- NOTE | 2016-04-29 10:34 | PD.CONS ---
HPI History of Present Illness This is a 65 year old male with history of COPD, alcohol abuse, diabetes mellitus, CHF, coronary artery disease who presented to the emergency department with abdominal pain and was admitted for acute pancreatitis. subsequently he developed worsening hypoxia, respiratory failure as well as an acute kidney injury. Patient was Intubated for respiratory distress with hypoxemia, nephrology was consulted and had dialysis . HPI obtained from EMR and nurse. Patient was in the hospital April 13 and and was treated for COPD exacerbation and was discharged on levofloxacin and prednisone. He has finished his antibiotics but is still on a tapering dose of prednisone. Apparently , he came in with epigastric abdominal pain, 10 over 10, started about 2 days prior to admission, associated with nausea, and vomiting of bilious material, nonbloody. Pain is radiating to the back, not associated with any fever or chills or diarrhea. According to chart, patient drinks about 10 bottles of beer every day, last drink was about 2 days prior to admission. Currently, patient is alert, intubated, abd with significant distension. According to nurse, 7 tries were made to insert GT but all attempts were unsuccessful. On admission lipase was 7876 --->111 today. LFTs with mild elevation in AST consistent with alcoholism pattern. Hepatitis panel (+) for hep -c, he has leukocytosis, significant drop in hgb 15.3---> 9.0, with no signs of bleeding. CT on (04/24/16)---> Inflammatory stranding in and around the pancreas suggestive of pancreatitis without any focal areas of necrosis or pseudocyst formation. Mildly fatty liver. Abd X-ray on (04/27/16)----> Mildly dilated small bowel in the left midabdomen. Some degree of obstruction or ileus cannot be excluded. (Kodi Montgomery) [facility] Past Medical History Per EMR, patient is intubated COPD HTN DM seizure disorder gout history of pancreatitis Congestive heart failure?-January 2014, echocardiogram showed Atrial fibrillation? Past Surgical History Per EMR, patient is intubated Appendectomy Bone Spur resection from right arm Colonoscopy 2013 with AVMs in colon, hemorrhoids, polyps (Kodi Montgomery) Coded Allergies: Penicillin (Verified Allergy, Severe, HIVES, 04/24/16) Medications Current Medications Medications (Trade) Dose Ordered Sig/Tamera Route Start Time Stop Time Status Last Admin (Zofran Inj) 4 mg Q6H PRN IV 04/24/16 15:15 (Heparin Inj) 5,000 units Q8H SQ 04/24/16 15:15 04/29/16 06:25 (NS Flush) 2 ml UNSCH PRN IV FLUSH 04/24/16 15:30 04/27/16 02:21 IV Flush 2 ml 2 ml BID IV FLUSH 04/24/16 21:00 04/29/16 08:08 Sodium Chloride 1,000 ml @ 0 mls/hr Q0M PRN IV 04/26/16 19:10 04/28/16 10:36 (NS 1000 ml Inj) 1,000 ml @ 0 mls/hr Q0M PRN IV 04/26/16 19:10 04/28/16 10:36 (NS Flush) 5 ml UNSCH PRN IVF 04/26/16 19:15 04/28/16 10:36 (D50w (Vial) Inj) 25 ml UNSCH PRN IV PUSH 04/27/16 04:45 Insulin Human Regular 1 1 Q6HR SQ 04/27/16 06:00 Lactated Ringer's 1,000 ml @ 50 mls/hr Q20H IV 04/27/16 04:43 04/28/16 01:32 Propofol 100 ml @ 0 mls/hr TITRATE IV 04/27/16 04:45 04/29/16 08:07 (fentaNYL DRIP) 250 ml @ 0 mls/hr TITRATE IV 04/27/16 04:45 04/29/16 02:39 (Dilaudid Pf Inj) 0.5 mg Q4H PRN IV PUSH 04/27/16 04:45 04/28/16 22:03 (Tylenol 650 Mg/ 20 ml Liq) 500 mg Q6H PRN PO 04/27/16 04:45 (Roxicodone Intensol Liq) 5 mg Q4HR PO 04/27/16 08:00 (Protonix Inj) 40 mg DAILY IV 04/27/16 09:00 04/29/16 08:05 (Chlorhexidine 2% Cloth) 3 pack Taper DAILY@04 TOP 04/28/16 04:00 04/24/17 03:59 04/29/16 04:00 Chlorhexidine Gluconate 15 ml 15 ml BID@08,20 MT 04/27/16 08:00 04/29/16 08:05 (NS 1000 ml Inj) 1,000 ml @ 0 mls/hr Q0M PRN IV 04/27/16 13:10 Heparin Sodium (Porcine) 8000 units 8,000 units UNSCH PRN IVF 04/27/16 13:15 Sodium Chloride 1,000 ml @ 200 mls/hr Q5H PRN IV 04/27/16 13:10 (NS 1000 ml Inj) 1,000 ml @ 0 mls/hr Q0M PRN IV 04/27/16 13:10 (Mannitol Inj) 12.5 gm UNSCH PRN IV 04/27/16 13:15 04/28/16 10:47 (Albumin 25% Inj) 25 gm UNSCH PRN IV 04/27/16 13:15 04/28/16 10:47 (NS Flush) 5 ml UNSCH PRN IVF 04/27/16 13:15 (Heparin Inj) UNSCH PRN .XX 04/27/16 13:15 04/28/16 10:37 (Gentamicin (Dialysis) Inj) 20 mg UNSCH PRN IV 04/27/16 13:15 04/28/16 10:37 (Zofran Inj) 4 mg UNSCH PRN IV 04/27/16 13:15 (Tylenol) 650 mg UNSCH PRN PO 04/27/16 13:15 (Benadryl) 25 mg UNSCH PRN PO 04/27/16 13:15 (Nitrostat Sl) 0.4 mg UNSCH PRN SL 04/27/16 13:15 (Catapres) 0.1 mg UNSCH PRN PO 04/27/16 13:15 (Epogen Inj) 4,000 units UNSCH PRN IV 04/27/16 13:15 04/28/16 10:53 (Gelfoam 12 Mm/7 Mm Top) 1 foam UNSCH PRN TOP 04/27/16 13:15 Family History According to EMR, patient is intubated Mother with HTN, DM, Father with HTN, unknown cancer, Social History according to EMR, patient is intubated Smokes tobacco, patient not very forthcoming with how much he smokes, states "occasionally" Drinks about 10 bottles of beer daily. No illicit drug use ([employer]) Review of Systems Constitutional: DENIES: Fever, Chills Endocrine: DENIES: Polyuria Eyes: DENIES: Double Vision Ears, nose, mouth, throat: DENIES: Hoarseness Respiratory: COMPLAINS OF: Shortness of breath Cardiovascular: DENIES: Lower Extremity Edema Gastrointestinal: COMPLAINS OF: Abdominal pain, Nausea, Vomiting, Swelling of Abdomen, DENIES: Black stools, Bloody stools, Constipation, Diarrhea, Heartburn , Hematemesis Genitourinary: DENIES: Hematuria Integumentary: DENIES: Pruritus Hematologic/lymphatic: DENIES: Bruising Immunologic/allergic: DENIES: Eczema Neurologic: DENIES: Abnormal gait Psychiatric: DENIES: Anxiety ROS Un able to obtain, patient is intubated, ROS were obtained from EMR (Kodi Montgomery) GI Exam Vitals I&O Vital Signs Date Time Temp Pulse Resp B/P Pulse Ox O2 Delivery O2 Flow Rate FiO2 04/29/16 08:38 35 40 04/29/16 08:00 92 04/29/16 08:00 100.6 96 18 101/56 94 Arterial Line 04/29/16 08:00 40 04/29/16 06:00 91 04/29/16 04:20 100 40 04/29/16 04:00 40 04/29/16 04:00 100.4 101 18 124/52 95 04/29/16 04:00 100 04/29/16 02:00 100 04/29/16 00:20 98 40 04/29/16 00:00 99.5 80 18 109/44 100 04/29/16 00:00 40 04/29/16 00:00 78 04/28/16 22:00 82 04/28/16 20:16 98 40 04/28/16 20:00 73 04/28/16 20:00 40 04/28/16 20:00 99.3 72 18 113/50 96 04/28/16 18:00 66 04/28/16 16:30 95 40 04/28/16 16:00 40 04/28/16 16:00 99.0 74 18 105/46 91 04/28/16 16:00 75 04/28/16 14:00 79 04/28/16 12:00 40 04/28/16 12:00 67 04/28/16 12:00 97.5 63 18 124/64 98 04/28/16 11:55 96 40 I/O 04/28/16 04/28/16 04/28/16 04/29/16 04/29/16 04/29/16 07:00 15:00 23:00 07:00 15:00 23:00 Intake Total 766 ml 921 ml 707 ml 827 ml Output Total 350 ml 2250 ml 100 ml 100 ml Balance 416 ml -1329 ml 607 ml 727 ml IV Total 766 ml 921 ml 707 ml 827 ml Output Urine Total 350 ml 250 ml 100 ml 100 ml Hemodialysis 2000 ml Imaging Last Impressions Chest X-Ray 04/27/16 0000 Signed Impressions: Service Date/Time: Wednesday, April 27, 2016 10:28 - CONCLUSION: 1. Dialysis catheter in good position. 2. Increasing bibasilar parenchymal changes worse on the left. Kermit Rollins MD FACR Abdomen X-Ray 04/27/16 0000 Signed Impressions: Service Date/Time: Wednesday, April 27, 2016 06:16 - CONCLUSION: Mildly dilated small bowel in the left midabdomen. Some degree of obstruction or ileus cannot be excluded. Mason Monge MD Renal Ultrasound 04/25/16 0000 Signed Impressions: Service Date/Time: Monday, April 25, 2016 15:01 - CONCLUSION: No evidence of hydronephrosis. Tom Seals MD Abdomen/Pelvis CT 04/24/16 0000 Signed Impressions: Service Date/Time: Sunday, April 24, 2016 13:26 - CONCLUSION: Inflammatory stranding in and around the pancreas suggestive of pancreatitis. I don't see any focal areas of necrosis or pseudocyst formation. There is no visible abscess. Mildly fatty liver. Eric Hoyt MD Laboratory Test 04/28/16 04/28/16 04/29/16 16:00 16:30 03:30 Sodium Level 139 MEQ/L 140 MEQ/L Potassium Level 3.7 MEQ/L 3.9 MEQ/L Chloride Level 101 MEQ/L 102 MEQ/L Carbon Dioxide Level 27.3 MEQ/L 24.1 MEQ/L Anion Gap 11 MEQ/L 14 MEQ/L Blood Urea Nitrogen 34 MG/DL 40 MG/DL Creatinine 2.68 MG/DL 3.23 MG/DL Estimat Glomerular Filtration 29 ML/MIN 23 ML/MIN Rate Random Glucose 83 MG/DL 76 MG/DL Calcium Level 6.4 MG/DL 5.8 MG/DL Protein Corrected Calcium 6.9 MG/DL 6.4 MG/DL Magnesium Level 1.8 MG/DL 1.9 MG/DL Total Protein 6.0 GM/DL 5.7 GM/DL Blood Gas Puncture Site ART LINE Blood Gas Patient Temperature 98.6 Blood Gas HCO3 22 mmol/L Blood Gas Base Excess -2.0 mmol/L Blood Gas Oxygen Saturation 94 % Arterial Blood pH 7.40 Arterial Blood Partial 37 mmHg Pressure CO2 Arterial Blood Partial 97 mmHg Pressure O2 Arterial Blood Oxygen Content 11.8 Vol % Arterial Blood 1.2 % Carboxyhemoglobin Arterial Blood Methemoglobin 1.5 % Blood Gas Hemoglobin 8.8 G/DL Oxygen Delivery Device VENTILATOR Blood Gas Ventilator Setting Blood Gas Inspired Oxygen 40 % White Blood Count 14.6 TH/MM3 Red Blood Count 3.40 MIL/MM3 Hemoglobin 9.0 GM/DL Hematocrit 27.2 % Mean Corpuscular Volume 80.1 FL Mean Corpuscular Hemoglobin 26.5 PG Mean Corpuscular Hemoglobin 33.1 % Concent Red Cell Distribution Width 17.2 % Platelet Count 149 TH/MM3 Mean Platelet Volume 9.7 FL Phosphorus Level 4.4 MG/DL Total Bilirubin 0.9 MG/DL Direct Bilirubin 0.6 MG/DL Indirect Bilirubin 0.3 MG/DL Aspartate Amino Transf 50 U/L (AST/SGOT) Alanine Aminotransferase 25 U/L (ALT/SGPT) Alkaline Phosphatase 57 U/L Albumin 2.7 GM/DL Lipase 111 U/L Date/Time Procedure Status Source Growth 04/27/16 05:52 Aerobic Blood Culture - Preliminary Resulted Blood Peripheral NO GROWTH IN 1 DAY 04/27/16 05:52 Anaerobic Blood Culture - Preliminary Resulted Blood Peripheral NO GROWTH IN 1 DAY 04/27/16 05:20 Urine Culture - Final Complete Urine Catheterized Urine NO GROWTH IN 48 HOURS. 04/27/16 05:20 Gram Stain - Final Complete Sputum Endotracheal 04/27/16 05:20 Sputum Culture - Final Complete Sputum Endotracheal Physical Examination HEENT: normocephalic; atraumatic; no jaundice. NECK: Neck is supple, no JVD, no lymphadenopathy. CHEST: good air effort, intubated CARDIAC: Regular rate and rhythm with no murmur gallop or rubs. ABDOMEN: firm, distended, nontender; no hepatosplenomegaly;hypoactive bowel sounds EXTREMITIES: No clubbing, cyanosis, or edema. SKIN: Normal; no rash; no jaundice. PURSE MAKER: alert, intubated (Kodi Montgomery) Assessment and Plan Plan - Acute on chronic pancreatitis- heavy alcohol intake about 10 bottles daily, presented with severe epigastric pain for 2 days prior to admission associated with nausea and vomiting Currently, patient is alert, intubated, abd with significant distension. According to nurse, 7 tries were made to insert GT but all attempts were unsuccessful. On admission lipase was 7876 --->111 today. LFTs with mild elevation in AST consistent with alcoholism pattern. CT on (04/24/16)---> Inflammatory stranding in and around the pancreas suggestive of pancreatitis without any focal areas of necrosis or pseudocyst formation. Mildly fatty liver. - Ileus/vs obstruction- Abd X-ray on (04/27/16)----> Mildly dilated small bowel in the left midabdomen. Some degree of obstruction or ileus cannot be excluded. Significant distention, According to nurse, 7 tries were made to insert GT but all attempts were unsuccessful. - Heavy alcohol intake- 10 bottles daily - Leukocytosis- improving WBC 14.6, blood cx no growth so far - Anemia- no signs of bleeding significant drop in hgb 15.3---> 9.0 - NATALY- nephrology on the case, dialysis - Hep-c (+)- not sure if he had tx or not, he is not a candidate due to drinking behavior - Acute respiratory failure - per CCM - DM, COPD per CCM Plan: - NPO - Will need NGT to LIWS for decompression, case was discussed with Dr. Paulson, it seems the tube hangs in the esophagus and not able to pass, several attempts were made We have discussed possible IR evaluation under fluoroscopy vs endoscopically , but Dr. Paulson will attempt one more time - KUB in am - Cont. to monitor labs - Alcohol cessation - Might need SBFT once we have NGT - Will need EGD once stable - Supportive care - Patient seen and examined by Dr. Simpson and myself and this note is written on his behalf. (Kodi Montgomery) Physician Comments Seen juliocesar cherised with [employer]OR, NG was able to be placed. Pancreatitis, illeus. Aggressive ivf resuscitation per control panel builder. Monitor labs. KUB in am. Thank you (Renetta Simpson MD) Kodi Montgomery Apr 29, 2016 10:34 Renetta Simpson MD Apr 29, 2016 16:21
--- NOTE | 2016-04-29 11:41 | HHI.CCPN ---
Subjective Remarks/Hospital Course This is a 65-year-old male with history of COPD, strong alcohol abuse history, diabetes, questionable history of heart failure, coronary artery disease who initially presented to the emergency department 04/25 with abdominal pain and was found to have acute pancreatitis. He was noted to the hospital at that time. Over the subsequent 48 hours, he developed worsening hypoxia as well as an acute kidney injury. This was initially thought to be CHF exacerbation and volume overload. He was given diuretics without a good response. His creatinine has trended up to 6. Nephrology was consulted and are considering renal replacement therapy. Tonight throughout the night, the patient became more hypoxic and dyspneic with increasing oxygen requirement. He is transferred to the ICU for his acute hypoxic respiratory failure. The patient is nauseated and has vomited a few times. 04/28: Intubated for respiratory distress with hypoxemia, now with acceptable gas exchange. Tolerating dialysis, try to extubate shortly. 04/29: Abdomen much too distended for extubation. NG tube placed with Roman forceps. Objective Vital Signs Date Time Temp Pulse Resp B/P Pulse Ox O2 Delivery O2 Flow Rate FiO2 04/29/16 10:00 100 04/29/16 08:38 35 40 04/29/16 08:00 100.6 18 101/56 Arterial Line 04/26/16 22:38 Nasal Cannula 4.00 Intake and Output 04/28/16 04/28/16 04/29/16 08:00 16:00 00:00 Intake Total 766 ml 921 ml 707 ml Output Total 350 ml 2250 ml 100 ml Balance 416 ml -1329 ml 607 ml Result Diagram: 04/29/16 0330 04/29/16 0330 Other Results Microbiology Date/Time Procedure Status Source Growth 04/27/16 05:20 Gram Stain - Final Complete Sputum Endotracheal 04/27/16 05:20 Sputum Culture - Final Complete Sputum Endotracheal 04/27/16 05:20 Urine Culture - Final Complete Urine Catheterized Urine NO GROWTH IN 48 HOURS. Laboratory Tests Test 04/28/16 16:30 Blood Gas Puncture Site ART LINE Blood Gas Patient Temperature 98.6 Blood Gas HCO3 22 mmol/L (22-26) Blood Gas Base Excess -2.0 mmol/L (-2-2) Blood Gas Oxygen Saturation 94 % (90-100) Arterial Blood pH 7.40 (7.380-7.420) Arterial Blood Partial 37 mmHg (38-42) Pressure CO2 Arterial Blood Partial 97 mmHg Pressure O2 (61-120) Arterial Blood Oxygen Content 11.8 Vol % (12.0-20.0) Arterial Blood 1.2 % (0-4) Carboxyhemoglobin Arterial Blood Methemoglobin 1.5 % (0-2) Blood Gas Hemoglobin 8.8 G/DL (12.0-16.0) Oxygen Delivery Device VENTILATOR Blood Gas Ventilator Setting Blood Gas Inspired Oxygen 40 % Imaging Critical care bedside ultrasound 04/27: Grossly preserved left ventricular function. Normal RV size and function. Small collapsible IVC which very strongly with respirations and is almost completely flat with inspiration. No pericardial effusion. Objective Remarks GENERAL: Middle-aged male, calm. Requiring large amounts of sedation for vent synchrony. HEENT: Normocephalic. Atraumatic. NECK: Trachea is midline. Supple, orally intubated. CHEST: Coarse rales throughout all lung whalen. Good ling air movement. CARDIOVASCULAR: Tachycardia, irregular rhythm. No appreciable murmurs. No JVD. ABDOMEN: Protuberant, distended, soft, mildly tender to palpation, voluntary guarding. MUSCULOSKELETAL: No peripheral edema. Distal pulses 2+. Warm, well perfused. NEUROLOGICAL: Opens eyes to voice. Requires heavy sedation due to ETOH Hx. Follows commands all 4 extremities. A/P Assessment and Plan Plan by systems: Neurologic: Alcohol abuse Metabolic encephalopathy Propofol and fentanyl for goal RASS Goal RASS -2. Discontinue CIWA protocol at this time We'll monitor for alcohol withdrawal Respiratory: Acute hypoxic respiratory failure ARDS COPD Low tidal volume ventilation turning 6 cc/kg ideal body weight Vent bundle Head of bed at 30 Wean FiO2 for goal SPO2 greater than 90% Nebs every 6 and every 2 when necessary Cardiovascular: Sinus tachycardia SIRS response Continue telemetry SIRS likely 2/2 acute pancreatitis Renal: Acute kidney injury Likely has a component of prerenal, but also likely from acute pancreatitis We'll place [place] with urometer. Every hour urine outputs -- Strict I/Os FEN/GI: Severe intravascular volume depletion Severe acute pancreatitis Severe hypocalcemia Metabolic acidosis 2 L LR fluid bolus LR maintenance fluids at 200 cc an hour Strict nothing by mouth Place OG tube to wall suction 3 g calcium gluconate IV 1 His metabolic acidosis is likely secondary to his acute pancreatitis. I do not see an indication to give him sodium bicarbonate at this time, given the fact that this is a gapped acidosis. He is not hemodynamically unstable. Daily BMP, LFTs, lipase Heme/ID: Leukocytosis Likely reactive secondary to acute pancreatitis I do not think he is infected at this point. Urine, sputum, blood cultures. We will hold off on starting empiric antibiotics. Daily CBC Endocrine: Diabetes -- SSI, medium scale, every 6 hours Prophylaxis: GI Prophylaxis Protonix 40 mg IV daily 24 hours DVT Prophylaxis -- SCDs Heparin 5000 every 8 Lines: 04/27 left radial arterial line 04/27 left subclavian triple-lumen catheter [place] Overall impression: Improved oxygenation, fluid balance better. Severe abdominal distention persists. Adithya Paulson MD Apr 29, 2016 11:40
--- NOTE | 2016-04-29 12:48 | RADRPT ---
EXAM DATE/TIME: 04/29/2016 11:48 [facility] COMPARISON: ABDOMEN KUB ONLY, April 27, 2016, 6:16. INDICATIONS: Evaluate NG tube placement. MEDICAL HISTORY: Pancreatitis. Diabetes. SURGICAL HISTORY: None. ENCOUNTER: Initial ACUITY: 1 day PAIN SCORE: Non-responsive. LOCATION: Abdomen FINDINGS: Nasogastric tube is across the GE junction. There is colonic dilatation with transverse colon dilate d to 7.5 cm. There is no evidence for free air. CONCLUSION: Nasogastric tube in good position. Kermit Rollins MD FACR on April 29, 2016 at 12:33 Board Certified Radiologist. This report was verified electronically.
[2016-04-29] MEDS: LACTATED RINGER'S 1000 ML INJ 1,000 ML IV SCH (17:23)
[2016-04-30] VITALS (19 sets, daily range): BP systolic 104–132; BP diastolic 53–68; PULSE 77–103; RESP 8–21; TEMP 99.1–99.9; O2SAT 97–100
[2016-04-30] MEDS: RESP: ALBUTEROL 2.5 MG/IPRATROPIUM 0.5 MG NEB (SCH) INH ×4 (03:37→20:40)
[2016-04-30] MEDS: oxyCODONE HCL ORAL CONC 20 MG/ML SYRINGE PO SCH ×6 (03:40→22:45)
[2016-04-30] MEDS: PROPOFOL 1000 MG/100 ML INJ 100 ML IV SCH ×5 (03:41→20:05)
[2016-04-30] MEDS: CHLORHEXIDINE GLUCONATE 2 % 1 PACK (2 CLOTHS) TOP SCH (03:41)
[2016-04-30 05:12] LABS: HEMATOCRIT 24.9 % (39.0-51.0); MEAN CELL VOLUME 79.7 FL (80.0-100.0); MEAN CORPUSCULAR HEMOGLOBIN 26.4 PG (27.0-34.0); MEAN CORPUSCULAR HGB CONC 33.2 % (32.0-36.0); PLATELET COUNT 164 TH/MM3 (150-450); RED BLOOD COUNT 3.12 MIL/MM3 (4.50-5.90); RED CELL DISTRIBUTION WIDTH 17.5 % (11.6-17.2); REVIEW FLAG FINAL; WHITE BLOOD COUNT 24.3 TH/MM3 (4.0-11.0)
[2016-04-30 05:40] LABS: BICARBONATE 21.8 MEQ/L (21.0-32.0); INDIRECT BILIRUBIN 0.3 MG/DL (0.0-0.8); MAGNESIUM 2.2 MG/DL (1.5-2.5); POTASSIUM 3.9 MEQ/L (3.5-5.1); TOTAL BILIRUBIN ADULT 1.1 MG/DL (0.2-1.0)
[2016-04-30] MEDS: INSULIN NovoLIN REGULAR SUPPLEMENTAL SCALE SQ SCH ×4 (06:00→17:41)
--- NOTE | 2016-04-30 06:35 | RADRPT ---
EXAM DATE/TIME: 04/30/2016 05:12 [facility] COMPARISON: ABDOMEN KUB ONLY, April 29, 2016, 11:48. INDICATIONS : Distention. MEDICAL HISTORY : Pancreatitis. Diabetes mellitus type II. SURGICAL HISTORY : None. ENCOUNTER: Subsequent ACUITY: 1 week PAIN SCORE: Non-responsive. LOCATION: abdomen, all quadrants. FINDINGS: Gastric tube in place. Left lower lobe consolidation with loss of delineation of the left hemidiaphr agm. Again noted is distention of the left transverse colon measuring up to 7.7 cm in width, stable. No dilated loops of small bowel seen. Rectal monitoring probe in place. CONCLUSION: No dilated loops of small bowel. Stable dilated transverse colon. Hubert Garcia MD on April 30, 2016 at 6:33 Board Certified Radiologist. This report was verified electronically.
[2016-04-30 07:15] LABS: CALCIUM-PROTEIN CORRECTED 7.6 MG/DL (8.5-10.1)
[2016-04-30] MEDS: HEPARIN SODIUM - SQ 10,000 UNITS/ML VIAL SQ SCH ×2 (07:40→14:30)
[2016-04-30] MEDS: PANTOPRAZOLE SODIUM 40 MG VIAL IV SCH (07:40)
[2016-04-30] MEDS: SODIUM CHLORIDE 0.9% FLUSH 5 ML FLUSH IV FLUSH SCH ×2 (07:41→21:00)
[2016-04-30] MEDS: CHLORHEXIDINE 0.12% (ORAL KIT) 15 ML CUP MT SCH ×2 (07:42→20:05)
--- NOTE | 2016-04-30 07:45 | HHI.CCPN ---
Subjective Remarks/Hospital Course This is a 65-year-old male with history of COPD, strong alcohol abuse history, diabetes, questionable history of heart failure, coronary artery disease who initially presented to the emergency department 04/25 with abdominal pain and was found to have acute pancreatitis. He was noted to the hospital at that time. Over the subsequent 48 hours, he developed worsening hypoxia as well as an acute kidney injury. This was initially thought to be CHF exacerbation and volume overload. He was given diuretics without a good response. His creatinine has trended up to 6. Nephrology was consulted and are considering renal replacement therapy. Tonight throughout the night, the patient became more hypoxic and dyspneic with increasing oxygen requirement. He is transferred to the ICU for his acute hypoxic respiratory failure. The patient is nauseated and has vomited a few times. 04/28: Intubated for respiratory distress with hypoxemia, now with acceptable gas exchange. Tolerating dialysis, try to extubate shortly. 04/29: Abdomen much too distended for extubation. NG tube placed with Roman forceps. 04/30: Abdomen remains tensely distended. No peritoneal irritation. BS few. Objective Vital Signs Date Time Temp Pulse Resp B/P Pulse Ox O2 Delivery O2 Flow Rate FiO2 04/30/16 06:00 86 04/30/16 04:22 99 40 04/30/16 04:00 99.6 18 112/68 04/26/16 22:38 Nasal Cannula 4.00 Intake and Output 04/29/16 04/29/16 04/30/16 08:00 16:00 00:00 Intake Total 827 ml 740 ml 743 ml Output Total 100 ml 185 ml 200 ml Balance 727 ml 555 ml 543 ml Result Diagram: 04/30/16 0430 04/30/16 0430 Imaging Critical care bedside ultrasound 04/27: Grossly preserved left ventricular function. Normal RV size and function. Small collapsible IVC which very strongly with respirations and is almost completely flat with inspiration. No pericardial effusion. Objective Remarks GENERAL: Middle-aged male, calm. Requiring large amounts of sedation for vent synchrony. HEENT: Normocephalic. Atraumatic. NECK: Trachea is midline. Supple, orally intubated. CHEST: Coarse rales throughout all lung whalen. Good ling air movement. CARDIOVASCULAR: Tachycardia, irregular rhythm. No appreciable murmurs. No JVD. ABDOMEN: Tensely distended, soft, mildly tender to palpation, voluntary guarding. Sparse BS. MUSCULOSKELETAL: No peripheral edema. Distal pulses 2+. Warm, well perfused. NEUROLOGICAL: Opens eyes to voice. Requires heavy sedation due to ETOH Hx. Follows commands all 4 extremities. A/P Assessment and Plan Plan by systems: Neurologic: Alcohol abuse Metabolic encephalopathy Propofol and fentanyl for goal RASS Goal RASS -2. Discontinue CIWA protocol at this time We'll monitor for alcohol withdrawal Respiratory: Acute hypoxic respiratory failure ARDS COPD Low tidal volume ventilation turning 6 cc/kg ideal body weight Vent bundle Head of bed at 30 Wean FiO2 for goal SPO2 greater than 90% Nebs every 6 and every 2 when necessary Cardiovascular: Sinus tachycardia SIRS response Continue telemetry SIRS likely 2/2 acute pancreatitis Renal: Acute kidney injury Likely has a component of prerenal, but also likely from acute pancreatitis We'll place [place] with urometer. Every hour urine outputs -- Strict I/Os FEN/GI: Severe intravascular volume depletion Severe acute pancreatitis Severe hypocalcemia Metabolic acidosis LR maintenance fluids at 50 cc an hour Strict nothing by mouth Place OG tube to wall suction Daily BMP, LFTs, lipase Heme/ID: Leukocytosis Likely reactive secondary to acute pancreatitis I do not think he is infected at this point. Urine, sputum, blood cultures. We will hold off on starting empiric antibiotics. Daily CBC ID - Leukocytosis with shift. Start Aztreonam and Flagyl 04/30 Endocrine: Diabetes -- SSI, medium scale, every 6 hours Prophylaxis: GI Prophylaxis Protonix 40 mg IV daily 24 hours DVT Prophylaxis -- SCDs Heparin 5000 every 8 Lines: 04/27 left radial arterial line 04/27 left subclavian triple-lumen catheter [place] Overall impression: Improved oxygenation, fluid balance better. Severe abdominal distention persists with obstructive sounds. Adithya Paulson MD Apr 30, 2016 07:45
[2016-04-30] MEDS: AZTREONAM INJ 1,000 MG in SODIUM CHLORIDE 0.9% INJ 100 ML IV SCH ×2 (08:04→20:05)
[2016-04-30] MEDS: metroNIDAZOLE 500 MG INJ 100 ML IV SCH ×2 (08:50→20:06)
--- NOTE | 2016-04-30 12:15 | HHI.NPPN ---
Subjective History of Present Illness 65 year old with Acute pancreatitis, ARF, Respiratory distress, now intubated on hemodialysis Additional Remarks Patient awake, on vent undergoing CPAP trials. HD today Objective Data Data 04/29/16 04/30/16 19:00 07:00 Intake Total 740 ml 1366 ml Output Total 185 ml 300 ml Balance 555 ml 1066 ml IV Total 740 ml 1366 ml Output Urine Total 85 ml 200 ml Gastric Drainage Total 100 ml 100 ml Vital Signs Date Time Temp Pulse Resp B/P Pulse Ox O2 Delivery O2 Flow Rate FiO2 04/30/16 10:00 93 04/30/16 08:00 99.3 90 9 113/59 99 04/30/16 08:00 90 04/30/16 08:00 40 04/30/16 07:55 40 04/30/16 07:55 98 Ventilator 40 04/30/16 07:55 99 40 04/30/16 06:00 86 04/30/16 04:22 99 40 04/30/16 04:00 40 04/30/16 04:00 99.6 77 18 112/68 99 04/30/16 04:00 92 04/30/16 02:00 92 04/30/16 01:18 100 40 04/30/16 00:00 99.9 79 18 104/54 99 04/30/16 00:00 40 04/30/16 00:00 92 04/29/16 22:00 92 04/29/16 20:08 96 40 04/29/16 20:00 100.4 89 18 90/53 94 04/29/16 20:00 40 04/29/16 20:00 90 04/29/16 18:00 93 04/29/16 17:05 95 50 04/29/16 16:00 40 04/29/16 16:00 100.4 95 21 102/58 95 04/29/16 16:00 95 04/29/16 14:00 93 04/29/16 12:27 93 50 -: 04/30/16 0430 04/30/16 0430 Microbiology 04/30/16 Gram Stain, Received Pending 04/30/16 Sputum Culture, Received Pending 04/30/16 Urine Culture, Received Pending 04/30/16 Aerobic Blood Culture, Received Pending 04/30/16 Anaerobic Blood Culture, Received Pending 04/30/16 Aerobic Blood Culture, Received Pending 04/30/16 Anaerobic Blood Culture, Received Pending Physical Exam General Appearance: Well Developed Neck Neck Exam: Neck Supple Pulmonary Resp Exam: Decreased Bases Cardiology CV Exam: Tachycardia Gastrointestinal/Abdomen GI Exam: Distended Integumentary Skin Exam: Dry, Intact Extremeties Extremities Exam: Moderate Edema Assessment/Plan Problem List: (1) Acute renal failure Plan: Patient has renal failure likely due to complications of pancreatitis and developed acute tubular necrosis now on hemodialysis with minimal UOP. Plan for HD today with UF as tolerated. Continues to receive LR at 50cc/hour and ongoing GI losses via NGT - has been euvolemic with UF with dialysis. If issues with weaning off ventilator, may consider to decrease IVFs -continue to closely monitor given minimal UOP. follow renal functions (2) Pancreatitis Plan: Severe pancreatitis with acute renal failure severe hypocalcemia and developing acidosis and ARDS (3) Abdominal pain Plan: Distention due to pancreatitis (4) COPD exacerbation Plan: Continue treatment (5) Thrombocytopenia Plan: improved Problem Qualifiers (1) Acute renal failure: Qualified Code: N17.0 - Acute renal failure with tubular necrosis (2) Pancreatitis: Qualified Code: K85.20 - Alcohol-induced acute pancreatitis, unspecified complication status (3) Abdominal pain: Qualified Code: R10.12 - Left upper quadrant pain Seng Ames MD Apr 30, 2016 12:15
[2016-04-30] MEDS: LACTATED RINGER'S 1000 ML INJ 1,000 ML IV SCH (12:43)
[2016-04-30] MEDS: SODIUM CHLOR 0.9% 1000 ML INJ 1,000 ML IV PRN (13:08)
[2016-04-30] MEDS: ALBUMIN HUMAN 25% 25 GM/100 ML BAGP IV PRN ×2 (13:08→13:10)
[2016-04-30] MEDS: MANNITOL 12.5 GM/50 ML VIAL IV PRN (13:09)
[2016-04-30] MEDS: HEPARIN SODIUM - IV 10,000 UNITS/10 ML VIAL PRN (13:09)
[2016-04-30] MEDS: EPOETIN ALFA 10,000 UNITS/ML VIAL IV PRN (13:10)
[2016-04-30] MEDS: GENTAMICIN SULFATE (DIALYSIS USE ONLY) 20 MG/2 ML VIAL IV PRN (13:10)
[2016-04-30] MEDS: fentaNYL DRIP 250 ML IV SCH (17:10)
[2016-05-01] VITALS (17 sets, daily range): BP systolic 101–120; BP diastolic 52–74; PULSE 76–95; RESP 14–18; TEMP 98.3–100; O2SAT 100
[2016-05-01] MEDS: oxyCODONE HCL ORAL CONC 20 MG/ML SYRINGE PO SCH ×5 (01:20→20:00)
[2016-05-01] MEDS: PROPOFOL 1000 MG/100 ML INJ 100 ML IV SCH ×4 (01:20→17:15)
[2016-05-01] MEDS: HEPARIN SODIUM - SQ 10,000 UNITS/ML VIAL SQ SCH ×3 (01:20→14:40)
[2016-05-01] MEDS: RESP: ALBUTEROL 2.5 MG/IPRATROPIUM 0.5 MG NEB (SCH) INH ×2 (03:42→08:29)
[2016-05-01] MEDS: CHLORHEXIDINE GLUCONATE 2 % 1 PACK (2 CLOTHS) TOP SCH (04:00)
[2016-05-01 04:36] LABS: AUTOMATED NEUTROPHIL # 21.2 TH/MM3 (1.8-7.7); BASOPHIL % 0.2 % (0.0-2.0); EOSINOPHIL # 0.3 TH/MM3 (0-0.4); EOSINOPHIL % 1.3 % (0.0-4.0); HEMATOCRIT 24.3 % (39.0-51.0); LYMPH % 2.1 % (9.0-44.0); LYMPHOCYTE # 0.5 TH/MM3 (1.0-4.8); MEAN CORPUSCULAR HEMOGLOBIN 26.4 PG (27.0-34.0); MEAN CORPUSCULAR HGB CONC 33.4 % (32.0-36.0); MONO % 9.1 % (0.0-8.0); NEUT % 87.3 % (16.0-70.0); PLATELET COUNT 197 TH/MM3 (150-450); RED BLOOD COUNT 3.08 MIL/MM3 (4.50-5.90); RED CELL DISTRIBUTION WIDTH 17.4 % (11.6-17.2); WHITE BLOOD COUNT 24.2 TH/MM3 (4.0-11.0)
[2016-05-01 04:43] LABS: HEMO FLAGS AUTO DIFF
[2016-05-01 04:53] LABS: BICARBONATE 24.4 MEQ/L (21.0-32.0); INDIRECT BILIRUBIN 0.3 MG/DL (0.0-0.8); MAGNESIUM 2.1 MG/DL (1.5-2.5); TOTAL BILIRUBIN ADULT 1.1 MG/DL (0.2-1.0)
[2016-05-01] MEDS: INSULIN NovoLIN REGULAR SUPPLEMENTAL SCALE SQ SCH ×4 (06:00→17:30)
[2016-05-01] MEDS: CHLORHEXIDINE 0.12% (ORAL KIT) 15 ML CUP MT SCH ×2 (07:24→20:16)
[2016-05-01] MEDS: AZTREONAM INJ 1,000 MG in SODIUM CHLORIDE 0.9% INJ 100 ML IV SCH ×2 (07:24→20:16)
[2016-05-01] MEDS: fentaNYL DRIP 250 ML IV SCH ×2 (08:12→21:33)
--- NOTE | 2016-05-01 08:18 | HHI.CCPN ---
Subjective Remarks/Hospital Course This is a 65-year-old male with history of COPD, strong alcohol abuse history, diabetes, questionable history of heart failure, coronary artery disease who initially presented to the emergency department 04/25 with abdominal pain and was found to have acute pancreatitis. He was noted to the hospital at that time. Over the subsequent 48 hours, he developed worsening hypoxia as well as an acute kidney injury. This was initially thought to be CHF exacerbation and volume overload. He was given diuretics without a good response. His creatinine has trended up to 6. Nephrology was consulted and are considering renal replacement therapy. Tonight throughout the night, the patient became more hypoxic and dyspneic with increasing oxygen requirement. He is transferred to the ICU for his acute hypoxic respiratory failure. The patient is nauseated and has vomited a few times. 04/28: Intubated for respiratory distress with hypoxemia, now with acceptable gas exchange. Tolerating dialysis, try to extubate shortly. 04/29: Abdomen much too distended for extubation. NG tube placed with Roman forceps. 04/30: Abdomen remains tensely distended. No peritoneal irritation. BS few. 05/01: Abdomen remains tensely distended. No peritoneal irritation. Objective Vital Signs Date Time Temp Pulse Resp B/P Pulse Ox O2 Delivery O2 Flow Rate FiO2 05/01/16 06:00 87 05/01/16 04:00 99.5 16 118/74 100 05/01/16 04:00 40 04/30/16 07:55 Ventilator Intake and Output 04/30/16 04/30/16 05/01/16 08:00 16:00 00:00 Intake Total 623 ml 810 ml 742 ml Output Total 100 ml 4350 ml 175 ml Balance 523 ml -3540 ml 567 ml Result Diagram: 05/01/16 0425 05/01/16 0425 Imaging Critical care bedside ultrasound 04/27: Grossly preserved left ventricular function. Normal RV size and function. Small collapsible IVC which very strongly with respirations and is almost completely flat with inspiration. No pericardial effusion. Objective Remarks GENERAL: Middle-aged male, calm on heavy sedation. Requiring large amounts of sedation for vent synchrony. HEENT: Normocephalic. Atraumatic. NECK: Trachea is midline. Supple, orally intubated. CHEST: Scattered rhonchi, decreased BS bases. Good ling air movement. CARDIOVASCULAR: Tachycardia, irregular rhythm. No murmurs. No JVD. ABDOMEN: Tensely distended, soft, mildly tender to palpation, voluntary guarding only. Sparse BS. MUSCULOSKELETAL: No peripheral edema. Distal pulses 2+. Warm, well perfused. NEUROLOGICAL: Opens eyes to voice. Requires heavy sedation due to ETOH Hx. Follows commands all 4 extremities. A/P Assessment and Plan Plan by systems: Neurologic: Alcohol abuse Metabolic encephalopathy Propofol and fentanyl for goal RASS Goal RASS -2. Daily vacation Respiratory: Acute hypoxic respiratory failure ARDS COPD Low tidal volume ventilation turning 6 cc/kg ideal body weight Vent bundle Head of bed at 30 Wean FiO2 for goal SPO2 greater than 90% Nebs every 6 and every 2 when necessary -Acceptable gas exchange. Abdomen much too distended to allow comfortable unassisted ventilation. Cardiovascular: Sinus tachycardia SIRS response Continue telemetry SIRS likely 2/2 acute pancreatitis Renal: Acute kidney injury Likely has a component of prerenal, but also likely from acute pancreatitis We'll place [place] with urometer. Every hour urine outputs -- Strict I/Os FEN/GI: Severe intravascular volume depletion Severe acute pancreatitis Severe hypocalcemia Metabolic acidosis LR maintenance fluids at 50 cc an hour Strict nothing by mouth Place OG tube to wall suction Daily BMP, LFTs, lipase Heme/ID: Leukocytosis Likely reactive secondary to acute pancreatitis I do not think he is infected at this point. Urine, sputum, blood cultures. We will hold off on starting empiric antibiotics. Daily CBC ID - Leukocytosis with shift. Start Aztreonam and Flagyl 04/30 Endocrine: Diabetes -- SSI, medium scale, every 6 hours Prophylaxis: GI Prophylaxis Protonix 40 mg IV daily 24 hours DVT Prophylaxis -- SCDs Heparin 5000 every 8 Lines: 04/27 left radial arterial line 04/27 left subclavian triple-lumen catheter [place] Overall impression: Improved oxygenation, fluid balance better. Severe abdominal distention persists with obstructive sounds. Tolerates SBT but won't ventilate with severe abdominal distention. Adithya Paulson MD May 01, 2016 08:18
[2016-05-01] MEDS: LACTATED RINGER'S 1000 ML INJ 1,000 ML IV SCH (09:02)
[2016-05-01] MEDS: metroNIDAZOLE 500 MG INJ 100 ML IV SCH ×2 (09:02→20:17)
[2016-05-01] MEDS: PANTOPRAZOLE SODIUM 40 MG VIAL IV SCH (09:02)
[2016-05-01] MEDS: SODIUM CHLORIDE 0.9% FLUSH 5 ML FLUSH IV FLUSH SCH ×2 (09:03→20:17)
[2016-05-01 10:03] LABS: BANDS 20 % (0-6); CORRECTED NUCLEATED RBC 1 /100 WBC (0-0); EOSINOPHILS 1 % (0-4); NEUTROPHIL # MANUAL DIFF 20.1 TH/MM3 (1.8-7.7); POLYS (SEG NEUTROPHILS) 63 % (16-70); WBC DIFF SAMPLE 100
[2016-05-01 10:04] LABS: PLATELET ESTIMATE SMEAR NORMAL (NORMAL); PLATELET MORPHOLOGY NORMAL (NORMAL); SCAN/DIFF FINAL DIFF MANUAL; TARGET CELLS 1+ (NORMAL); TOXIC GRANULATION 1+ (NORMAL)
--- NOTE | 2016-05-01 10:52 | HHI.NPPN ---
Subjective History of Present Illness 65 year old with Acute pancreatitis, ARF, Respiratory distress, now intubated on hemodialysis Additional Remarks Patient intubated, tolerated HD yesterday Objective Data Data 04/30/16 05/01/16 19:00 07:00 Intake Total 810 ml 1460 ml Output Total 4350 ml 400 ml Balance -3540 ml 1060 ml IV Total 810 ml 1460 ml Output Urine Total 200 ml 150 ml Gastric Drainage Total 150 ml 250 ml Hemodialysis 4000 ml Vital Signs Date Time Temp Pulse Resp B/P Pulse Ox O2 Delivery O2 Flow Rate FiO2 05/01/16 08:40 40 05/01/16 08:29 100 40 05/01/16 08:29 100 Ventilator 40 05/01/16 08:00 40 05/01/16 08:00 89 05/01/16 06:00 87 05/01/16 04:00 94 05/01/16 04:00 99.5 95 16 118/74 100 05/01/16 04:00 40 05/01/16 03:35 100 40 05/01/16 02:00 95 05/01/16 00:24 100 40 05/01/16 00:00 40 05/01/16 00:00 94 05/01/16 00:00 99.7 94 14 120/60 100 04/30/16 22:00 87 04/30/16 20:40 100 40 04/30/16 20:00 99.3 82 21 104/53 100 04/30/16 20:00 40 04/30/16 20:00 86 04/30/16 19:02 97 40 04/30/16 18:00 85 04/30/16 16:00 99.1 84 15 109/53 100 04/30/16 16:00 84 04/30/16 16:00 40 04/30/16 15:53 100 40 04/30/16 14:28 40 04/30/16 14:00 103 04/30/16 12:09 100 40 04/30/16 12:00 92 04/30/16 12:00 40 04/30/16 12:00 99.9 92 8 132/64 98 -: 05/01/16 0425 05/01/16 0425 Physical Exam General Appearance: Well Developed Neck Neck Exam: Neck Supple Pulmonary Resp Exam: Decreased Bases Cardiology CV Exam: Tachycardia Gastrointestinal/Abdomen GI Exam: Distended Integumentary Skin Exam: Dry, Intact Extremeties Extremities Exam: Moderate Edema Assessment/Plan Problem List: (1) Acute renal failure Plan: Patient has renal failure likely due to complications of pancreatitis and developed acute tubular necrosis now on hemodialysis with minimal UOP. HD done yesterday with 4L UF, plan for next HD Monday. Ongoing minimal UOP. Continues to receive LR at 50cc/hour and ongoing GI losses via NGT - has been euvolemic with UF with dialysis. If issues with weaning off ventilator, may consider to decrease IVFs -continue to closely monitor given minimal UOP. follow renal functions (2) Pancreatitis Plan: Severe pancreatitis with acute renal failure severe hypocalcemia and developing acidosis and ARDS (3) Abdominal pain Plan: Distention due to pancreatitis (4) COPD exacerbation Plan: Continue treatment, on vent with CPAP. (5) Thrombocytopenia Plan: improved Problem Qualifiers (1) Acute renal failure: Qualified Code: N17.0 - Acute renal failure with tubular necrosis (2) Pancreatitis: Qualified Code: K85.20 - Alcohol-induced acute pancreatitis, unspecified complication status (3) Abdominal pain: Qualified Code: R10.12 - Left upper quadrant pain Seng Ames MD May 01, 2016 10:52
[2016-05-01] MEDS: RESP: ALBUTEROL 2.5 MG/IPRATROPIUM 0.5 MG NEB (PRN) INH (20:37)
[2016-05-02] VITALS (19 sets, daily range): BP systolic 99–164; BP diastolic 55–77; PULSE 87–97; RESP 16–17; TEMP 98.6–100.2; O2SAT 97–100
[2016-05-02] MEDS: HEPARIN SODIUM - SQ 10,000 UNITS/ML VIAL SQ SCH ×4 (00:56→21:37)
[2016-05-02] MEDS: PROPOFOL 1000 MG/100 ML INJ 100 ML IV SCH ×4 (02:02→23:43)
[2016-05-02] MEDS: oxyCODONE HCL ORAL CONC 20 MG/ML SYRINGE PO SCH ×8 (04:00→23:43)
[2016-05-02 04:24] LABS: HEMATOCRIT 23.7 % (39.0-51.0); MEAN CELL VOLUME 78.4 FL (80.0-100.0); MEAN CORPUSCULAR HEMOGLOBIN 25.8 PG (27.0-34.0); MEAN CORPUSCULAR HGB CONC 32.9 % (32.0-36.0); PLATELET COUNT 217 TH/MM3 (150-450); RED BLOOD COUNT 3.02 MIL/MM3 (4.50-5.90); RED CELL DISTRIBUTION WIDTH 17.3 % (11.6-17.2); REVIEW FLAG FINAL; WHITE BLOOD COUNT 22.2 TH/MM3 (4.0-11.0)
[2016-05-02] MEDS: LACTATED RINGER'S 1000 ML INJ 1,000 ML IV SCH ×3 (04:43→04:52)
[2016-05-02] MEDS: CHLORHEXIDINE GLUCONATE 2 % 1 PACK (2 CLOTHS) TOP SCH (04:47)
[2016-05-02 04:58] LABS: BICARBONATE 23.8 MEQ/L (21.0-32.0); INDIRECT BILIRUBIN 0.3 MG/DL (0.0-0.8); MAGNESIUM 2.1 MG/DL (1.5-2.5); POTASSIUM 4.4 MEQ/L (3.5-5.1)
[2016-05-02] MEDS: INSULIN NovoLIN REGULAR SUPPLEMENTAL SCALE SQ SCH ×5 (06:00→23:43)
[2016-05-02] MEDS: AZTREONAM INJ 1,000 MG in SODIUM CHLORIDE 0.9% INJ 100 ML IV SCH ×2 (08:15→20:09)
[2016-05-02] MEDS: PANTOPRAZOLE SODIUM 40 MG VIAL IV SCH (08:15)
[2016-05-02] MEDS: SODIUM CHLORIDE 0.9% FLUSH 5 ML FLUSH IV FLUSH SCH ×2 (08:16→20:10)
[2016-05-02] MEDS: metroNIDAZOLE 500 MG INJ 100 ML IV SCH ×2 (08:16→20:09)
[2016-05-02] MEDS: CHLORHEXIDINE 0.12% (ORAL KIT) 15 ML CUP MT SCH ×2 (08:16→20:10)
[2016-05-02] MEDS ORDERED: Vancomycin Consult Pharmacy 1 EA OTHER SCH (09:45)
--- NOTE | 2016-05-02 09:56 | HHI.CCPN ---
Subjective Remarks/Hospital Course This is a 65-year-old male with history of COPD, strong alcohol abuse history, diabetes, questionable history of heart failure, coronary artery disease who initially presented to the emergency department 04/25 with abdominal pain and was found to have acute pancreatitis. He was noted to the hospital at that time. Over the subsequent 48 hours, he developed worsening hypoxia as well as an acute kidney injury. This was initially thought to be CHF exacerbation and volume overload. He was given diuretics without a good response. His creatinine has trended up to 6. Nephrology was consulted and are considering renal replacement therapy. Tonight throughout the night, the patient became more hypoxic and dyspneic with increasing oxygen requirement. He is transferred to the ICU for his acute hypoxic respiratory failure. The patient is nauseated and has vomited a few times. 04/28: Intubated for respiratory distress with hypoxemia, now with acceptable gas exchange. Tolerating dialysis, try to extubate shortly. 04/29: Abdomen much too distended for extubation. NG tube placed with Roman forceps. 04/30: Abdomen remains tensely distended. No peritoneal irritation. BS few. 05/01: Abdomen remains tensely distended. No peritoneal irritation. 05/02: Abdominal distention worse. Pain worse. Will get CT to look for perforation. Objective Vital Signs Date Time Temp Pulse Resp B/P Pulse Ox O2 Delivery O2 Flow Rate FiO2 05/02/16 08:46 100 40 05/02/16 08:00 99.5 90 17 119/63 05/01/16 08:29 Ventilator Intake and Output 05/01/16 05/01/16 05/02/16 08:00 16:00 00:00 Intake Total 718 ml 676 ml 786 ml Output Total 225 ml 150 ml 125 ml Balance 493 ml 526 ml 661 ml Result Diagram: 05/02/16 0418 05/02/16 0418 Other Results Microbiology Date/Time Procedure Status Source Growth 04/30/16 08:20 Urine Culture - Final Complete Urine Catheterized Urine NO GROWTH IN 48 HOURS. Imaging Critical care bedside ultrasound 04/27: Grossly preserved left ventricular function. Normal RV size and function. Small collapsible IVC which very strongly with respirations and is almost completely flat with inspiration. No pericardial effusion. Objective Remarks GENERAL: Middle-aged male, calm on heavy sedation HEENT: Normocephalic. Atraumatic. NECK: Trachea is midline. Supple, orally intubated. CHEST: Scattered rhonchi, decreased BS bases. Good ling air movement. CARDIOVASCULAR: Tachycardia, irregular rhythm. No murmurs. No JVD. ABDOMEN: Tensely distended, firm, diffusely tender to palpation, ? peritoneal irritation. Few high pitched BS. MUSCULOSKELETAL: No peripheral edema.Warm, well perfused. NEUROLOGICAL: Opens eyes to voice. Requires heavy sedation due to ETOH Hx. Follows commands all 4 extremities. Grimaces to pain. A/P Assessment and Plan Plan by systems: Neurologic: Alcohol abuse Metabolic encephalopathy Propofol and fentanyl for goal RASS Goal RASS -1. Daily vacation Respiratory: Acute hypoxic respiratory failure ARDS COPD Low tidal volume ventilation turning 6 cc/kg ideal body weight Vent bundle Head of bed at 30 Wean FiO2 for goal SPO2 greater than 90% Nebs every 6 and every 2 when necessary -Acceptable gas exchange. Abdomen much too distended to allow comfortable unassisted ventilation. Cardiovascular: Sinus tachycardia SIRS response Continue telemetry SIRS likely 2/2 acute pancreatitis Renal: Acute kidney injury Likely has a component of prerenal, but also likely from acute pancreatitis We'll place Hardin with urometer. Every hour urine outputs -- Strict I/Os FEN/GI: Severe intravascular volume depletion Severe acute pancreatitis Severe hypocalcemia Metabolic acidosis LR maintenance fluids at 50 cc an hour Strict nothing by mouth Place OG tube to wall suction Daily BMP, LFTs, lipase Heme/ID: Leukocytosis Likely reactive secondary to acute pancreatitis I do not think he is infected at this point. Urine, sputum, blood cultures. Start Aztreonam and Flagyl for leukocytosis 04/29, add vanc for sputum staph Daily CBC ID - Leukocytosis with shift. Start Aztreonam and Flagyl 04/30, add Vanc 05/02 Sputum 05/01 - GNR, Staph Endocrine: Diabetes -- SSI, medium scale, every 6 hours Prophylaxis: GI Prophylaxis Protonix 40 mg IV daily 24 hours DVT Prophylaxis -- SCDs Heparin 5000 every 8 Lines: 04/27 left radial arterial line 04/27 left subclavian triple-lumen catheter Hardin Overall impression: Severe abdominal distention persists with obstructive sounds and increasing tenderness. Tolerates SBT but won't ventilate with severe abdominal distention. Has become critically ill with possible acute abdomen. Stat CT. Broaden ABX coverage. Critical care 38 mins Adithya Paulson MD 23, 2017 09:56
[2016-05-02] MEDS ORDERED: DIATRIZOATE MEGLUM/DIATRIZOATE SOD 9 ML CUP PO ONE (11:15)
[2016-05-02] MEDS: fentaNYL DRIP 250 ML IV SCH (12:27)
--- NOTE | 2016-05-02 13:51 | HHI.NPPN ---
Subjective History of Present Illness 65 year old with Acute pancreatitis, ARF, Respiratory distress, now intubated on hemodialysis Additional Remarks Patient intubated, tolerated HD Monday Objective Data Data 05/01/16 05/02/16 19:00 07:00 Intake Total 676 ml 1327 ml Output Total 150 ml 350 ml Balance 526 ml 977 ml IV Total 676 ml 1327 ml Output Urine Total 100 ml 200 ml Gastric Drainage Total 50 ml 150 ml # Bowel Movements 0 Vital Signs Date Time Temp Pulse Resp B/P Pulse Ox O2 Delivery O2 Flow Rate FiO2 05/02/16 12:21 40 05/02/16 12:19 100 40 05/02/16 12:00 88 05/02/16 12:00 40 05/02/16 12:00 98.6 88 17 105/58 100 05/02/16 10:00 87 05/02/16 08:46 100 40 05/02/16 08:00 99.5 90 17 119/63 100 05/02/16 08:00 94 05/02/16 08:00 40 05/02/16 06:00 90 05/02/16 04:42 100 40 05/02/16 04:00 90 05/02/16 04:00 40 05/02/16 04:00 99.3 90 17 99/55 100 05/02/16 02:00 93 05/02/16 00:48 100 40 05/02/16 00:00 40 05/02/16 00:00 94 05/02/16 00:00 100.2 94 17 103/56 100 05/01/16 22:00 90 05/01/16 20:40 100 40 05/01/16 20:31 40 05/01/16 20:00 100.0 90 16 106/55 100 05/01/16 20:00 91 05/01/16 20:00 40 05/01/16 18:06 100 40 05/01/16 18:00 90 05/01/16 16:00 89 05/01/16 16:00 98.3 76 16 104/53 100 05/01/16 16:00 40 05/01/16 14:00 86 -: 05/02/16 0418 05/02/16 0418 Physical Exam General Appearance: Well Developed Neck Neck Exam: Neck Supple Pulmonary Resp Exam: Decreased Bases Cardiology CV Exam: Tachycardia Gastrointestinal/Abdomen GI Exam: Distended Integumentary Skin Exam: Dry, Intact Extremeties Extremities Exam: Moderate Edema Assessment/Plan Problem List: (1) Acute renal failure Plan: Patient has renal failure likely due to complications of pancreatitis and developed acute tubular necrosis now on hemodialysis with minimal UOP. HD done Monday with 4L UF, plan for next HD Monday. Ongoing minimal UOP. next HD in am off LR follow renal functions (2) Pancreatitis Plan: Severe pancreatitis with acute renal failure severe hypocalcemia and developing acidosis and ARDS (3) Abdominal pain Plan: Distention due to pancreatitis (4) COPD exacerbation Plan: Continue treatment, on vent with CPAP. (5) Thrombocytopenia Plan: improved Problem Qualifiers (1) Acute renal failure: Qualified Code: N17.0 - Acute renal failure with tubular necrosis (2) Pancreatitis: Qualified Code: K85.20 - Alcohol-induced acute pancreatitis, unspecified complication status (3) Abdominal pain: Qualified Code: R10.12 - Left upper quadrant pain Janett Crane MD May 02, 2016 13:51
[2016-05-02] MEDS ORDERED: VANCOMYCIN INJ 1,000 MG in SODIUM CHLOR 0.9% 250 ML INJ 250 ML IV SCH (14:45)
--- NOTE | 2016-05-02 16:04 | RADRPT ---
EXAM DATE/TIME: 05/02/2016 15:43 [facility] COMPARISON: CT ABDOMEN & PELVIS W CONTRAST, April 24, 2016, 13:26. INDICATIONS : Increasing abdominal distention. Evaluate for possible perforation. ORAL CONTRAST: Prescribed oral contrast ingested. RADIATION DOSE: 10.79 CTDIvol (mGy) MEDICAL HISTORY : Hypertension. Chronic obstructive pulmonary disease. Renal failure, acute.Diabetes SURGICAL HISTORY : None. ENCOUNTER: Initial ACUITY: 1 day PAIN SCALE: Non-responsive LOCATION: abdomen TECHNIQUE: Volumetric scanning of the abdomen and pelvis was performed. Using automated exposure control and ad justment of the mA and/or kV according to patient size, radiation dose was kept as low as reasonably achievable to obtain optimal diagnostic quality images. FINDINGS: Imaging through the lung bases demonstrates small bilateral effusions. There are consolidative change s in both lower lobes. These are new compared to the previous CT dated 04/24/16. There are granulomato us calcification within the hilum bilaterally. Heart is enlarged. The appearance of the liver, spleen, adrenal glands and kidneys is within normal limits. There is dif fuse inflammatory change surrounding the pancreas consistent with severe pancreatitis. This has worse kristi when compared to previous dated 04/24/16. No significant, organized pseudocyst is present. There i s a small amount of free fluid tracking down the paracolic gutters bilaterally. No free air is seen. No findings to indicate bowel obstruction are present. There is no free fluid within the pelvis. No iliac or inguinal adenopathy is present. There is a Fole y catheter in good position. There are degenerative changes throughout the spine. CONCLUSION: 1. The exam demonstrates extensive inflammatory change around the pancreas with fluid extending down into the paracolic gutters consistent with severe pancreatitis. This has significantly worsened when compared to previous dated 04/24/16. No organized pseudocyst is present. 2. NG tube and Hardin in good position. Seng Rollins MD on May 02, 2016 at 16:00 Board Certified Radiologist. This report was verified electronically.
[2016-05-02 17:09] LABS: POTASSIUM 4.2 MEQ/L (3.5-5.1)
[2016-05-02 17:10] LABS: MAGNESIUM 2.1 MG/DL (1.5-2.5)
[2016-05-02] MEDS: NOREPINEPHRINE 4 MG/D5W 250 ML IV SCH (21:37)
[2016-05-03] VITALS (18 sets, daily range): BP systolic 80–128; BP diastolic 48–59; PULSE 67–95; RESP 11–22; TEMP 99–101.3; O2SAT 92–100
[2016-05-03] MEDS: PROPOFOL 1000 MG/100 ML INJ 100 ML IV SCH ×5 (01:48→23:33)
[2016-05-03] MEDS: CHLORHEXIDINE GLUCONATE 2 % 1 PACK (2 CLOTHS) TOP SCH (03:05)
[2016-05-03] MEDS: oxyCODONE HCL ORAL CONC 20 MG/ML SYRINGE PO SCH ×6 (03:05→23:34)
[2016-05-03] MEDS: fentaNYL DRIP 250 ML IV SCH ×2 (03:05→20:22)
[2016-05-03 03:43] LABS: HEMATOCRIT 22.8 % (39.0-51.0); MEAN CELL VOLUME 78.4 FL (80.0-100.0); MEAN CORPUSCULAR HGB CONC 33.2 % (32.0-36.0); PLATELET COUNT 249 TH/MM3 (150-450); RED CELL DISTRIBUTION WIDTH 17.3 % (11.6-17.2); REVIEW FLAG FINAL; WHITE BLOOD COUNT 23.6 TH/MM3 (4.0-11.0)
[2016-05-03 04:21] LABS: BICARBONATE 24.1 MEQ/L (21.0-32.0); INDIRECT BILIRUBIN 0.2 MG/DL (0.0-0.8); POTASSIUM 4.4 MEQ/L (3.5-5.1)
[2016-05-03] MEDS: INSULIN NovoLIN REGULAR SUPPLEMENTAL SCALE SQ SCH ×4 (05:23→23:34)
[2016-05-03] MEDS: HEPARIN SODIUM - SQ 10,000 UNITS/ML VIAL SQ SCH ×3 (07:49→21:56)
[2016-05-03] MEDS: SODIUM CHLORIDE 0.9% FLUSH 5 ML FLUSH IV FLUSH SCH ×2 (07:50→20:22)
[2016-05-03] MEDS: PANTOPRAZOLE SODIUM 40 MG VIAL IV SCH (07:50)
[2016-05-03] MEDS: AZTREONAM INJ 1,000 MG in SODIUM CHLORIDE 0.9% INJ 100 ML IV SCH ×2 (07:50→20:21)
[2016-05-03] MEDS: CHLORHEXIDINE 0.12% (ORAL KIT) 15 ML CUP MT SCH ×2 (07:50→20:22)
[2016-05-03] MEDS: metroNIDAZOLE 500 MG INJ 100 ML IV SCH (07:50)
--- NOTE | 2016-05-03 10:25 | HHI.NPPN ---
Subjective History of Present Illness 65 year old with Acute pancreatitis, ARF, Respiratory distress, now intubated on hemodialysis Additional Remarks Patient intubated, tolerated HD Monday Objective Data Data 05/02/16 05/03/16 19:00 07:00 Intake Total 435 ml 1097 ml Output Total 250 ml 425 ml Balance 185 ml 672 ml IV Total 435 ml 947 ml Tube Irrigant 150 ml Output Urine Total 150 ml 325 ml Gastric Drainage Total 100 ml 100 ml # Bowel Movements 0 0 Vital Signs Date Time Temp Pulse Resp B/P Pulse Ox O2 Delivery O2 Flow Rate FiO2 05/03/16 10:00 67 05/03/16 08:00 50 05/03/16 08:00 99.7 92 16 128/59 100 05/03/16 08:00 92 05/03/16 08:00 40 05/03/16 07:57 99 40 05/03/16 06:00 89 05/03/16 05:38 98 40 05/03/16 04:00 50 05/03/16 04:00 99.0 80 16 94/52 99 05/03/16 04:00 80 05/03/16 02:00 81 05/03/16 00:13 97 50 05/03/16 00:00 99.7 90 16 80/48 98 05/03/16 00:00 60 05/03/16 00:00 90 05/02/16 22:00 92 05/02/16 21:50 60 05/02/16 21:30 50 05/02/16 20:00 99.7 94 16 164/77 98 05/02/16 20:00 40 05/02/16 20:00 94 05/02/16 19:45 97 40 05/02/16 18:00 88 05/02/16 16:21 100 40 05/02/16 16:00 97 05/02/16 16:00 99.7 97 16 120/58 100 05/02/16 16:00 40 05/02/16 15:45 100 100 05/02/16 14:00 96 05/02/16 12:21 40 05/02/16 12:19 100 40 05/02/16 12:00 88 05/02/16 12:00 40 05/02/16 12:00 98.6 88 17 105/58 100 -: 05/03/16 0330 05/03/16 0330 Physical Exam General Appearance: Well Developed Neck Neck Exam: Neck Supple Pulmonary Resp Exam: Decreased Bases Cardiology CV Exam: Tachycardia Gastrointestinal/Abdomen GI Exam: Distended Integumentary Skin Exam: Dry, Intact Extremeties Extremities Exam: Moderate Edema Assessment/Plan Problem List: (1) Acute renal failure Plan: Patient has renal failure likely due to complications of pancreatitis and developed acute tubular necrosis now on hemodialysis with minimal UOP. HD done Monday with 4L UF, plan for next HD Monday. UOP low Cr higher next HD today follow renal functions (2) Pancreatitis Plan: Severe pancreatitis with acute renal failure severe hypocalcemia and developing acidosis and ARDS (3) Abdominal pain Plan: Distention due to pancreatitis (4) COPD exacerbation Plan: Continue treatment, on vent Problem Qualifiers (1) Acute renal failure: Qualified Code: N17.0 - Acute renal failure with tubular necrosis (2) Pancreatitis: Qualified Code: K85.20 - Alcohol-induced acute pancreatitis, unspecified complication status (3) Abdominal pain: Qualified Code: R10.12 - Left upper quadrant pain Janett Crane MD May 03, 2016 10:25
--- NOTE | 2016-05-03 11:21 | HHI.CCPN ---
Subjective Remarks/Hospital Course This is a 65-year-old male with history of COPD, strong alcohol abuse history, diabetes, questionable history of heart failure, coronary artery disease who initially presented to the emergency department 04/25 with abdominal pain and was found to have acute pancreatitis. He was noted to the hospital at that time. Over the subsequent 48 hours, he developed worsening hypoxia as well as an acute kidney injury. This was initially thought to be CHF exacerbation and volume overload. He was given diuretics without a good response. His creatinine has trended up to 6. Nephrology was consulted and are considering renal replacement therapy. Tonight throughout the night, the patient became more hypoxic and dyspneic with increasing oxygen requirement. He is transferred to the ICU for his acute hypoxic respiratory failure. The patient is nauseated and has vomited a few times. 04/28: Intubated for respiratory distress with hypoxemia, now with acceptable gas exchange. Tolerating dialysis, try to extubate shortly. 04/29: Abdomen much too distended for extubation. NG tube placed with Roman forceps. 04/30: Abdomen remains tensely distended. No peritoneal irritation. BS few. 05/01: Abdomen remains tensely distended. No peritoneal irritation. 05/02: Abdominal distention worse. Pain worse. Will get CT to look for perforation. 05/03: CT abdomen with rip-roaring inflammatory process involving the pancreas; much worse. Sputum with multiple organisms. Patient clinically more critically ill. Objective Vital Signs Date Time Temp Pulse Resp B/P Pulse Ox O2 Delivery O2 Flow Rate FiO2 05/03/16 10:00 67 05/03/16 08:00 50 05/03/16 08:00 99.7 16 128/59 100 05/01/16 08:29 Ventilator Intake and Output 05/02/16 05/02/16 05/03/16 08:00 16:00 00:00 Intake Total 541 ml 435 ml 312 ml Output Total 225 ml 250 ml 200 ml Balance 316 ml 185 ml 112 ml Result Diagram: 05/03/1632905/03/16 033 Imaging Critical care bedside ultrasound 04/27: Grossly preserved left ventricular function. Normal RV size and function. Small collapsible IVC which very strongly with respirations and is almost completely flat with inspiration. No pericardial effusion. Objective Remarks GENERAL: Middle-aged male, calm on heavy sedation HEENT: Normocephalic. Atraumatic. NECK: Trachea is midline. Supple, orally intubated. CHEST: Diffuse rhonchi, decreased BS bases. Good ling air movement. Copious secretions. CARDIOVASCULAR: Tachycardia, irregular rhythm. No murmurs. No JVD. ABDOMEN: Tensely distended, firm, diffusely tender to palpation, ? peritoneal irritation. Few high pitched BS. MUSCULOSKELETAL: No peripheral edema.Warm, well perfused. NEUROLOGICAL: Opens eyes to voice. Requires heavy sedation due to ETOH Hx. Follows commands all 4 extremities. Grimaces to pain. A/P Assessment and Plan Plan by systems: Neurologic: Alcohol abuse Metabolic encephalopathy Propofol and fentanyl for goal RASS Goal RASS -1. Daily vacation Respiratory: Acute hypoxic respiratory failure ARDS COPD Low tidal volume ventilation turning 6 cc/kg ideal body weight Vent bundle Head of bed at 30 Wean FiO2 for goal SPO2 greater than 90% Nebs every 6 and every 2 when necessary -Acceptable gas exchange. Abdomen much too distended to allow comfortable unassisted ventilation. Cardiovascular: Sinus tachycardia SIRS response Continue telemetry SIRS likely 2/2 acute pancreatitis Renal: Acute kidney injury Likely has a component of prerenal, but also likely from acute pancreatitis We'll place Hardin with urometer. Every hour urine outputs -- Strict I/Os FEN/GI: Severe intravascular volume depletion Severe acute pancreatitis Severe hypocalcemia Metabolic acidosis LR maintenance fluids at 50 cc an hour Strict nothing by mouth Place OG tube to wall suction Daily BMP, LFTs, lipase Heme/ID: Leukocytosis Likely reactive secondary to acute pancreatitis I do not think he is infected at this point. Urine, sputum, blood cultures. Start Aztreonam and Flagyl for leukocytosis 04/29, d/c vanc for sputum staph Daily CBC ID - Leukocytosis with shift. Aztreonam and levaquin. Sputum 05/01 - Klebsiella, E. cioli, Staph MSSA Endocrine: Diabetes -- SSI, medium scale, every 6 hours Prophylaxis: GI Prophylaxis Protonix 40 mg IV daily 24 hours DVT Prophylaxis -- SCDs Heparin 5000 every 8 Lines: 04/27 left radial arterial line 04/27 left subclavian triple-lumen catheter Hardin Overall impression: Severe abdominal distention persists with obstructive sounds and increasing tenderness. Tolerates SBT but won't ventilate with severe abdominal distention. Has become critically ill and septic. Deteriorating clinical status. Critical care 37 mins Adithya Paulson MD May 03, 2016 11:21
[2016-05-03] MEDS: LEVOFLOXACIN 500 MG PREMIX INJ 100 ML IV SCH (11:27)
[2016-05-03] MEDS: SODIUM CHLOR 0.9% 1000 ML INJ 1,000 ML IV PRN (14:15)
[2016-05-03] MEDS: ALBUMIN HUMAN 25% 25 GM/100 ML BAGP IV PRN ×2 (14:15→14:17)
[2016-05-03] MEDS: EPOETIN ALFA 10,000 UNITS/ML VIAL IV PRN (14:16)
[2016-05-03] MEDS: HEPARIN SODIUM - IV 10,000 UNITS/10 ML VIAL PRN (14:16)
[2016-05-03] MEDS: GENTAMICIN SULFATE (DIALYSIS USE ONLY) 20 MG/2 ML VIAL IV PRN (14:16)
--- NOTE | 2016-05-03 15:21 | PD.ID.CON ---
History of Present Illness Service ID Consult Requested By Reason for Consult Evaluation and Mment of possible Sepsis, acute pancreatitis, Pneumonia. Primary Care Physician ELIEL Liu Diagnoses: History of Present Illness is a 65 y/o AAM with PMHx of COPD, CAD/CHF, DM, heavy alcohol abuse , Hepatitis C, pancreatitis in past. Patient was recently admitted on April 13 and 2016 for COPD exacerbation and was discharged on Levaquin and prednisone. Reportedly patient finishes antibiotics but he is still on a tapering dose of prednisone. With this background patient was admitted to the emergency department history of abdominal pain and a admitting diagnosis of acute pancreatitis. Subsequently patient developed worsening hypoxia, respiratory failure as well as acute kidney injury. Patient was intubated for respiratory distress with hypoxemia and nephrology was consulted for dialysis. Patient reported epigastric abdominal pain 10 out of 10 in intensity associated with nausea, vomiting bilious nonbloody. No abdominal pain was radiating to his back and not associated with any fever or chills or diarrhea. Upon discussion with the laborer stores it appears that several attempts were made to insert a G-tube to assist with management of pancreatitis but these attempts were unsuccessful. Patient has a G-tube only for the last 3 days now. On admission his lipase was [id number] and today his lipase is 67. Gastroenterology has also been consulted and is following the patient. CT scan admission suggested pancreatitis a repeat CT scan on May 02, 2016 showed extensive inflammatory changes around the pancreas with fluid extending down into the paracolic gutters consistent with severe pancreatitis. No organized pseudocyst was present. This was reported as significantly worsened compared to April 24, 2016 CT scan. At the time of my evaluation patient is in the intensive surgical care unit. He is currently not on pressors but earlier was on pressors when on higher doses of sedation. Patient was undergoing hemodialysis at the time of my evaluation. Reportedly this is his fourth session of hemodialysis. Overnight temperature max was 101.3 Fahrenheit, WBC 23.6, H&H 7.6 and 22, platelets 249. His creatinine is 5.7 or, lipase 67, albumin 2.1, AST 46, ALC 22, total bili 0.8 and calcium of 8.5. Blood cultures since admission are negative and the most recent one drawn on April 30, 2016 is negative so far. The chest x-ray shows infiltrates he has secretions mostly clear but thick in consistency and needing fairly frequent suctioning. His most recent sputum cultures showed growth of Escherichia coli, Klebsiella pneumonia as well as MSSA. ID consulted for evaluation and Mment of possible Sepsis, acute pancreatitis, Pneumonia. Review of Systems ROS Limitations: Intubated Past Family Social History Allergies: Coded Allergies: Penicillin (Verified Allergy, Severe, HIVES, 04/24/16) Past Medical History Per EMR, patient is intubated COPD HTN DM seizure disorder gout history of pancreatitis Congestive heart failure?-January 2014, echocardiogram showed Atrial fibrillation? Past Surgical History Per EMR, patient is intubated Appendectomy Bone Spur resection from right arm Colonoscopy 2013 with AVMs in colon, hemorrhoids, polyps Reported Medications Reported Meds & Active Scripts Active Prednisone 20 Mg Tab 40 Mg PO DAILY Take 40mg daily for 5 days total. Reported Nitroglycerin SL (Nitroglycerin) 0.4 Mg Subl 0.4 Mg SL DIRECTED PRN ONE TABLET UNDER THE TONGUE NEEDED FOR CHEST PAIN, MAY REPEAT EVERY FIVE MINUTES FOR A TOTAL OF 3 DOSES OR CALL 911 IF NO RELIEF Spiriva Handihaler (Tiotropium Inh) 18 Mcg Cap 18 Mcg INH DAILY 1 capsule = 18 mcg Daliresp (Roflumilast) 500 Mcg Tab 500 Mcg PO DAILY Dilantin (Phenytoin Extended) 100 Mg Cap 300 Mg PO DAILY Omeprazole 40 Mg Cap 40 Mg PO DAILY Metformin (Metformin HCl) 1,000 Mg Tab 1,000 Mg PO BIDPC With meals Hydrochlorothiazide 25 Mg Tab 25 Mg PO BID Gabapentin 600 Mg Tab 600 Mg PO TID Clonidine (Clonidine HCl) 0.1 Mg Tab 0.1 Mg PO Q12HR Amlodipine (Amlodipine Besylate) 5 Mg Tab 5 Mg PO BID Symbicort Inh (Budesonide/Formoterol Fumarate) 160-4.5 Mcg/Act Aero 2 Puff INH Q12HR Allopurinol 300 Mg Tab 300 Mg PO DAILY Ventolin Hfa 18 GM Inh (Albuterol Sulfate) 90 Mcg/Act Aer 2 Puff INH Q4-6H PRN Albuterol Neb (Albuterol Sulfate) 2.5 Mg/0.5 Ml Neb 2.5 Mg NEB QID NEB PRN Note: The Albuterol Sulfate Inhalation Solution is concentrated and must be diluted. Read complete instructions carefully before using. Active Ordered Medications Current Medications Medications (Trade) Dose Ordered Sig/Tamera Route Start Time Stop Time Status Last Admin (Zofran Inj) 4 mg Q6H PRN IV 04/24/16 15:15 (Heparin Inj) 5,000 units Q8H SQ 04/24/16 15:15 05/03/16 07:49 (NS Flush) 2 ml UNSCH PRN IV FLUSH 04/24/16 15:30 04/27/16 02:21 IV Flush 2 ml 2 ml BID IV FLUSH 04/24/16 21:00 05/03/16 07:50 Sodium Chloride 1,000 ml @ 0 mls/hr Q0M PRN IV 04/26/16 19:10 05/03/16 14:15 (NS 1000 ml Inj) 1,000 ml @ 0 mls/hr Q0M PRN IV 04/26/16 19:10 04/28/16 10:36 (NS Flush) 5 ml UNSCH PRN IVF 04/26/16 19:15 04/28/16 10:36 (D50w (Vial) Inj) 25 ml UNSCH PRN IV PUSH 04/27/16 04:45 04/29/16 17:18 Insulin Human Regular 1 1 Q6HR SQ 04/27/16 06:00 Propofol 100 ml @ 0 mls/hr TITRATE IV 04/27/16 04:45 05/03/16 05:23 (fentaNYL DRIP) 250 ml @ 0 mls/hr TITRATE IV 04/27/16 04:45 05/03/16 03:05 (Dilaudid Pf Inj) 0.5 mg Q4H PRN IV PUSH 04/27/16 04:45 04/28/16 22:03 (Tylenol 650 Mg/ 20 ml Liq) 500 mg Q6H PRN PO 04/27/16 04:45 (Roxicodone Intensol Liq) 5 mg Q4HR PO 04/27/16 08:00 05/03/16 11:27 (Protonix Inj) 40 mg DAILY IV 04/27/16 09:00 05/03/16 07:50 (Chlorhexidine 2% Cloth) Taper DAILY@04 TOP 04/28/16 04:00 04/24/17 03:59 05/02/16 04:47 Chlorhexidine Gluconate 15 ml 15 ml BID@08,20 MT 04/27/16 08:00 05/03/16 07:50 (NS 1000 ml Inj) 1,000 ml @ 0 mls/hr Q0M PRN IV 04/27/16 13:10 Heparin Sodium (Porcine) 8000 units 8,000 units UNSCH PRN IVF 04/27/16 13:15 Sodium Chloride 1,000 ml @ 200 mls/hr Q5H PRN IV 04/27/16 13:10 (NS 1000 ml Inj) 1,000 ml @ 0 mls/hr Q0M PRN IV 04/27/16 13:10 (Mannitol Inj) 12.5 gm UNSCH PRN IV 04/27/16 13:15 04/30/16 13:09 (Albumin 25% Inj) 25 gm UNSCH PRN IV 04/27/16 13:15 05/03/16 14:17 (NS Flush) 5 ml UNSCH PRN IVF 04/27/16 13:15 (Heparin Inj) UNSCH PRN .XX 04/27/16 13:15 05/03/16 14:16 (Gentamicin (Dialysis) Inj) 20 mg UNSCH PRN IV 04/27/16 13:15 05/03/16 14:16 (Zofran Inj) 4 mg UNSCH PRN IV 04/27/16 13:15 (Tylenol) 650 mg UNSCH PRN PO 04/27/16 13:15 05/03/16 12:37 (Benadryl) 25 mg UNSCH PRN PO 04/27/16 13:15 (Nitrostat Sl) 0.4 mg UNSCH PRN SL 04/27/16 13:15 (Catapres) 0.1 mg UNSCH PRN PO 04/27/16 13:15 (Epogen Inj) 4,000 units UNSCH PRN IV 04/27/16 13:15 05/03/16 14:16 Gelatin 1 foam 1 foam UNSCH PRN TOP 04/27/16 13:15 Aztreonam 1000 mg/ Sodium Chloride 100 ml @ 200 mls/hr Q12H IV 04/30/16 08:00 05/03/16 07:50 Norepinephrine Bitartrate 250 ml @ 0 mls/hr TITRATE IV 05/02/16 20:30 05/02/16 21:37 (Levaquin 500 Mg Premix Inj) 100 ml @ 100 mls/hr Q48H IV 05/03/16 12:00 05/03/16 11:27 Family History Mother and father reportedly her diabetes and hypertension. Social History Heavy alcohol abuse. Has a son who is reportedly the person making decisions. Physical Exam Vital Signs Vital Signs Date Time Temp Pulse Resp B/P Pulse Ox O2 Delivery O2 Flow Rate FiO2 05/03/16 14:00 90 05/03/16 12:05 92 40 05/03/16 12:00 50 05/03/16 12:00 101.3 95 16 100/52 96 05/03/16 12:00 95 05/03/16 10:00 67 05/03/16 08:00 50 05/03/16 08:00 99.7 92 16 128/59 100 05/03/16 08:00 92 05/03/16 08:00 40 05/03/16 07:57 99 40 05/03/16 06:00 89 05/03/16 05:38 98 40 05/03/16 04:00 50 05/03/16 04:00 99.0 80 16 94/52 99 05/03/16 04:00 80 05/03/16 02:00 81 05/03/16 00:13 97 50 05/03/16 00:00 99.7 90 16 80/48 98 05/03/16 00:00 60 05/03/16 00:00 90 05/02/16 22:00 92 05/02/16 21:50 60 05/02/16 21:30 50 05/02/16 20:00 99.7 94 16 164/77 98 05/02/16 20:00 40 05/02/16 20:00 94 05/02/16 19:45 97 40 05/02/16 18:00 88 05/02/16 16:21 100 40 05/02/16 16:00 97 05/02/16 16:00 99.7 97 16 120/58 100 05/02/16 16:00 40 05/02/16 15:45 100 100 Physical Exam GENERAL: This is a well-nourished, well-developed patient, in no apparent distress. SKIN: No rashes. HEAD: Atraumatic. Normocephalic. No temporal or scalp tenderness. EYES: Pupils equal round and reactive. Extraocular motions intact.No injection or drainage. ENT: Intubated. Left-sided central line with no evidence of infection. NECK: Trachea midline. Supple, nontender, no meningeal signs. CARDIOVASCULAR: Heart sounds audible. RESPIRATORY: Clear to auscultation. Breath sounds equal bilaterally with decrease in the bases. GASTROINTESTINAL: Abdomen soft, distended, tenderness noted but no rigidity. Bowel sounds diminished. MUSCULOSKELETAL: Extremities without clubbing, cyanosis. Pedal edema noted. NEUROLOGICAL: Sedated. Psych could not be assessed IV line sites with no evidence of infection. Laboratory Laboratory Tests Test 05/02/16 05/03/16 16:30 03:30 Potassium Level 4.2 4.4 Magnesium Level 2.1 2.0 White Blood Count 23.6 Red Blood Count 2.90 Hemoglobin 7.6 Hematocrit 22.8 Mean Corpuscular Volume 78.4 Mean Corpuscular Hemoglobin 26.0 Mean Corpuscular Hemoglobin 33.2 Concent Red Cell Distribution Width 17.3 Platelet Count 249 Mean Platelet Volume 9.1 Sodium Level 137 Chloride Level 100 Carbon Dioxide Level 24.1 Anion Gap 13 Blood Urea Nitrogen 69 Creatinine 5.74 Estimat Glomerular Filtration 12 Rate Random Glucose 105 Calcium Level 8.5 Phosphorus Level 8.1 Total Bilirubin 1.0 Direct Bilirubin 0.8 Indirect Bilirubin 0.2 Aspartate Amino Transf 46 (AST/SGOT) Alanine Aminotransferase 22 (ALT/SGPT) Alkaline Phosphatase 79 Total Protein 5.6 Albumin 2.1 Lipase 67 Date/Time Procedure Status Source Growth 04/30/16 08:55 Aerobic Blood Culture - Preliminary Resulted Blood Peripheral NO GROWTH IN 3 DAYS 04/30/16 08:55 Anaerobic Blood Culture - Preliminary Resulted Blood Peripheral NO GROWTH IN 3 DAYS 04/30/16 08:20 Urine Culture - Final Complete Urine Catheterized Urine NO GROWTH IN 48 HOURS. 04/30/16 08:20 Gram Stain - Final Complete Sputum Endotracheal 04/30/16 08:20 Sputum Culture - Final Complete Escherichia Coli Klebsiella Pneumoniae Staphylococcus Aureus Result Diagram: 05/03/16 0330 05/03/16 0330 Imaging Last Impressions Abdomen/Pelvis CT 05/02/16 0000 Signed Impressions: Service Date/Time: Monday, May 02, 2016 15:43 - CONCLUSION: 1. The exam demonstrates extensive inflammatory change around the pancreas with fluid extending down into the paracolic gutters consistent with severe pancreatitis. This has significantly worsened when compared to previous dated 04/24/16. No organized pseudocyst is present. 2. NG tube and Hardin in good position. Seng Rollins MD Abdomen X-Ray 04/30/16 0000 Signed Impressions: Service Date/Time: Saturday, April 30, 2016 05:12 - CONCLUSION: No dilated loops of small bowel. Stable dilated transverse colon. Hubert Garcia MD Chest X-Ray 04/27/16 0000 Signed Impressions: Service Date/Time: Wednesday, April 27, 2016 10:28 - CONCLUSION: 1. Dialysis catheter in good position. 2. Increasing bibasilar parenchymal changes worse on the left. Kermit Rollins MD FACR Renal Ultrasound 04/25/16 0000 Signed Impressions: Service Date/Time: Monday, April 25, 2016 15:01 - CONCLUSION: No evidence of hydronephrosis. Tom Seals MD Assessment and Plan Assessment and Plan Possible sepsis (source: likely intra abdominal and aspiration/Health care associated pneumonia. Reviewed other sources: CL and HD cath, Cath associated UTI. Severe acute pancreatitis as most likely cause of new SIRS. No pseudocyst no evidence of any abscess. Acute resp failure on vent. Acute renal failure on Hemodialysis. Alcoholism Recs: Continue Azactam IV pt tolerating doses (noted PCN allergy as hives) Continue Levaquin IV Start Flagyl oral (will help reduce fluid issues if tolerated) Start Diflucan IV (for fungal intra abd sepsis/peritonitis) Ok to hold off on Vanco IV in view of acute renal failure. If any change in condition overnight please call me or broaden coverage to Meropenem + Micafungin +- Zyvox (given PNA would like to avoid Dapto) Will follow clinically Follow cultures Patient is critically ill. D.w patients son the ID related problems and plan. They were thankful of care provided. Sienna Hercules MD May 03, 2016 15:21
[2016-05-03] MEDS ORDERED: MICAFUNGIN INJ 100 MG in SODIUM CHLORIDE 0.9% INJ 100 ML IV SCH (18:00)
[2016-05-03] MEDS: FLUCONAZOLE 200 MG PREMIX BAG 100 ML IV SCH (18:00)
[2016-05-03] MEDS: metroNIDAZOLE 500 MG TAB PO/NG SCH (18:01)
[2016-05-03] MEDS: NOREPINEPHRINE 4 MG/D5W 250 ML IV SCH (18:27)
[2016-05-04] VITALS (19 sets, daily range): BP systolic 87–115; BP diastolic 50–59; PULSE 78–92; RESP 10–17; TEMP 99–100.9; O2SAT 93–100
[2016-05-04] MEDS: metroNIDAZOLE 500 MG TAB PO/NG SCH ×3 (02:42→17:40)
[2016-05-04] MEDS: oxyCODONE HCL ORAL CONC 20 MG/ML SYRINGE PO SCH ×6 (02:42→23:06)
[2016-05-04] MEDS: CHLORHEXIDINE GLUCONATE 2 % 1 PACK (2 CLOTHS) TOP SCH (02:42)
[2016-05-04 04:14] LABS: HEMATOCRIT 21.8 % (39.0-51.0); MEAN CELL VOLUME 76.8 FL (80.0-100.0); MEAN CORPUSCULAR HEMOGLOBIN 26.1 PG (27.0-34.0); MEAN CORPUSCULAR HGB CONC 33.9 % (32.0-36.0); PLATELET COUNT 236 TH/MM3 (150-450); RED BLOOD COUNT 2.85 MIL/MM3 (4.50-5.90); RED CELL DISTRIBUTION WIDTH 17.3 % (11.6-17.2); REVIEW FLAG FINAL; WHITE BLOOD COUNT 23.5 TH/MM3 (4.0-11.0)
[2016-05-04 04:46] LABS: BICARBONATE 28.2 MEQ/L (21.0-32.0); MAGNESIUM 1.8 MG/DL (1.5-2.5); POTASSIUM 3.9 MEQ/L (3.5-5.1)
[2016-05-04] MEDS: INSULIN NovoLIN REGULAR SUPPLEMENTAL SCALE SQ SCH ×4 (04:54→23:06)
[2016-05-04] MEDS: fentaNYL DRIP 250 ML IV SCH (05:18)
[2016-05-04] MEDS: NOREPINEPHRINE 4 MG/D5W 250 ML IV SCH ×2 (05:18→20:11)
[2016-05-04] MEDS: ACETAMINOPHEN 650 MG/20.3 ML UDC PO PRN (05:59)
--- NOTE | 2016-05-04 07:26 | HHI.CCPN ---
Subjective Remarks/Hospital Course This is a 65-year-old male with history of COPD, strong alcohol abuse history, diabetes, questionable history of heart failure, coronary artery disease who initially presented to the emergency department 04/25 with abdominal pain and was found to have acute pancreatitis. He was noted to the hospital at that time. Over the subsequent 48 hours, he developed worsening hypoxia as well as an acute kidney injury. This was initially thought to be CHF exacerbation and volume overload. He was given diuretics without a good response. His creatinine has trended up to 6. Nephrology was consulted and are considering renal replacement therapy. Tonight throughout the night, the patient became more hypoxic and dyspneic with increasing oxygen requirement. He is transferred to the ICU for his acute hypoxic respiratory failure. The patient is nauseated and has vomited a few times. 04/28: Intubated for respiratory distress with hypoxemia, now with acceptable gas exchange. Tolerating dialysis, try to extubate shortly. 04/29: Abdomen much too distended for extubation. NG tube placed with Roman forceps. 04/30: Abdomen remains tensely distended. No peritoneal irritation. BS few. 05/01: Abdomen remains tensely distended. No peritoneal irritation. 05/02: Abdominal distention worse. Pain worse. Will get CT to look for perforation. 05/03: CT abdomen with rip-roaring inflammatory process involving the pancreas; much worse. Sputum with multiple organisms. Patient clinically more critically ill. 05/04: Will start TFs if OK with GI service. Objective Vital Signs Date Time Temp Pulse Resp B/P Pulse Ox O2 Delivery O2 Flow Rate FiO2 05/04/16 06:00 92 05/04/16 04:53 95 40 05/04/16 04:00 100.8 17 102/58 05/01/16 08:29 Ventilator Intake and Output 05/03/16 05/03/16 05/04/16 08:00 16:00 00:00 Intake Total 785 ml 857 ml 510 ml Output Total 225 ml 250 ml 2625 ml Balance 560 ml 607 ml -2115 ml Result Diagram: 05/04/16 0355 05/04/16 0355 Imaging Critical care bedside ultrasound 04/27: Grossly preserved left ventricular function. Normal RV size and function. Small collapsible IVC which very strongly with respirations and is almost completely flat with inspiration. No pericardial effusion. Objective Remarks GENERAL: Middle-aged male, calm on heavy sedation HEENT: Normocephalic. Atraumatic. NECK: Trachea is midline. Supple, orally intubated. CHEST: Diffuse rhonchi, decreased BS bases. Good ling air movement. Copious secretions. CARDIOVASCULAR: Tachycardia, irregular rhythm. No murmurs. No JVD. ABDOMEN: Tensely distended, firm, generally tender to palpation, Few BS. MUSCULOSKELETAL: No peripheral edema.Warm, well perfused. NEUROLOGICAL: Opens eyes to voice. Requires heavy sedation due to ETOH Hx. Follows commands all 4 extremities. Grimaces to pain. A/P Assessment and Plan Plan by systems: Neurologic: Alcohol abuse Metabolic encephalopathy Propofol and fentanyl for goal RASS Goal RASS -1. Daily vacation Respiratory: Acute hypoxic respiratory failure ARDS COPD Low tidal volume ventilation turning 6 cc/kg ideal body weight Vent bundle Head of bed at 30 Wean FiO2 for goal SPO2 greater than 90% Nebs every 6 and every 2 when necessary -Acceptable gas exchange. Abdomen much too distended to allow comfortable unassisted ventilation. Cardiovascular: Sinus tachycardia SIRS response Continue telemetry SIRS likely 2/2 acute pancreatitis Renal: Acute kidney injury Likely has a component of prerenal, but also likely from acute pancreatitis We'll place Hardin with urometer. Every hour urine outputs -- Strict I/Os FEN/GI: Severe intravascular volume depletion Severe acute pancreatitis Severe hypocalcemia Metabolic acidosis LR maintenance fluids at 50 cc an hour Strict nothing by mouth Place OG tube to wall suction Daily BMP, LFTs, lipase Heme/ID: Leukocytosis Likely reactive secondary to acute pancreatitis I do not think he is infected at this point. Urine, sputum, blood cultures. Start Aztreonam and Flagyl for leukocytosis 04/29, d/c vanc for sputum staph Daily CBC ID - Leukocytosis with shift. Aztreonam and levaquin. Sputum 05/01 - Klebsiella, E. cioli, Staph MSSA Endocrine: Diabetes -- SSI, medium scale, every 6 hours Prophylaxis: GI Prophylaxis Protonix 40 mg IV daily 24 hours DVT Prophylaxis -- SCDs Heparin 5000 every 8 Lines: 04/27 left radial arterial line 04/27 left subclavian triple-lumen catheter Hardin Overall impression: Marked abdominal distention persists with obstructive sounds and increasing tenderness. Tolerates SBT but won't ventilate with severe abdominal distention. Enteral nutrition safe? Adithya Paulson MD May 04, 2016 07:26
[2016-05-04] MEDS: CHLORHEXIDINE 0.12% (ORAL KIT) 15 ML CUP MT SCH ×2 (08:00→20:10)
[2016-05-04] MEDS: PANTOPRAZOLE SODIUM 40 MG VIAL IV SCH (08:02)
[2016-05-04] MEDS: HEPARIN SODIUM - SQ 10,000 UNITS/ML VIAL SQ SCH ×3 (08:02→23:05)
[2016-05-04] MEDS: AZTREONAM INJ 1,000 MG in SODIUM CHLORIDE 0.9% INJ 100 ML IV SCH ×2 (08:03→20:10)
[2016-05-04] MEDS: SODIUM CHLORIDE 0.9% FLUSH 5 ML FLUSH IV FLUSH SCH ×2 (08:03→20:11)
--- NOTE | 2016-05-04 11:15 | HHI.IDPN ---
Subjective Subjective Remarks is a 65 y/o AAM with PMHx of COPD, CAD/CHF, DM, heavy alcohol abuse , Hepatitis C, pancreatitis in past. ID following for possible sepsis, acute pancreatitis and pneumonia. Overnight events reviewed. Tmax 101.3 F Tcurrent 100.3 F No rash No diarrhea NPO except meds. UO low. s/p HD yday. Restarted on low dose levoped. Off sedation and awake. Antibiotics Azactam IV flagyl diflucan Lines Line sites with no e/o infection Past Medical History reviewed Allergies: Coded Allergies: Penicillin (Verified Allergy, Severe, HIVES, 04/24/16) Objective . Vital Signs Date Time Temp Pulse Resp B/P Pulse Ox O2 Delivery O2 Flow Rate FiO2 05/04/16 10:00 88 05/04/16 08:12 40 05/04/16 08:12 96 40 05/04/16 08:00 91 05/04/16 08:00 100.9 91 10 105/58 96 05/04/16 08:00 50 05/04/16 06:00 92 05/04/16 04:53 95 40 05/04/16 04:00 100.8 86 17 102/58 97 05/04/16 04:00 86 05/04/16 04:00 50 05/04/16 02:00 85 05/04/16 01:12 93 40 05/04/16 00:00 100.2 89 17 107/59 98 05/04/16 00:00 89 05/04/16 00:00 50 05/03/16 22:00 92 05/03/16 20:35 97 40 05/03/16 20:30 50 05/03/16 20:00 50 05/03/16 20:00 90 05/03/16 20:00 99.3 90 22 115/55 96 05/03/16 18:00 90 05/03/16 17:59 95 40 05/03/16 16:00 88 05/03/16 16:00 99.1 88 11 119/56 97 05/03/16 16:00 50 05/03/16 14:00 90 05/03/16 12:05 92 40 05/03/16 12:00 50 05/03/16 12:00 101.3 95 16 100/52 96 05/03/16 12:00 95 05/03/16 05/03/16 05/04/16 14:59 22:59 06:59 Intake Total 857 ml 510 ml 724 ml Output Total 250 ml 2625 ml 150 ml Balance 607 ml -2115 ml 574 ml IV Total 737 ml 450 ml 664 ml Tube Irrigant 120 ml 60 ml 60 ml Output Urine Total 250 ml 75 ml 100 ml Gastric Drainage Total 0 ml 50 ml 50 ml Hemodialysis 2500 ml # Bowel Movements 0 0 0 . Laboratory Tests Test 05/03/16 05/04/16 03:30 03:55 White Blood Count 23.6 TH/MM3 23.5 TH/MM3 Red Blood Count 2.90 MIL/MM3 2.85 MIL/MM3 Hemoglobin 7.6 GM/DL 7.4 GM/DL Hematocrit 22.8 % 21.8 % Mean Corpuscular Volume 78.4 FL 76.8 FL Mean Corpuscular Hemoglobin 26.0 PG 26.1 PG Mean Corpuscular Hemoglobin 33.2 % 33.9 % Concent Red Cell Distribution Width 17.3 % 17.3 % Platelet Count 249 TH/MM3 236 TH/MM3 Mean Platelet Volume 9.1 FL 9.2 FL Laboratory Tests Test 05/02/16 05/03/16 05/04/16 16:30 03:30 03:55 Potassium Level 4.2 MEQ/L 4.4 MEQ/L 3.9 MEQ/L Magnesium Level 2.1 MG/DL 2.0 MG/DL 1.8 MG/DL Sodium Level 137 MEQ/L 139 MEQ/L Chloride Level 100 MEQ/L 100 MEQ/L Carbon Dioxide Level 24.1 MEQ/L 28.2 MEQ/L Anion Gap 13 MEQ/L 11 MEQ/L Blood Urea Nitrogen 69 MG/DL 48 MG/DL Creatinine 5.74 MG/DL 4.07 MG/DL Estimat Glomerular Filtration 12 ML/MIN 18 ML/MIN Rate Random Glucose 105 MG/DL 88 MG/DL Calcium Level 8.5 MG/DL 8.6 MG/DL Phosphorus Level 8.1 MG/DL 5.0 MG/DL Total Bilirubin 1.0 MG/DL Direct Bilirubin 0.8 MG/DL Indirect Bilirubin 0.2 MG/DL Aspartate Amino Transf 46 U/L (AST/SGOT) Alanine Aminotransferase 22 U/L (ALT/SGPT) Alkaline Phosphatase 79 U/L Total Protein 5.6 GM/DL Albumin 2.1 GM/DL Lipase 67 U/L 67 U/L Imaging Last Impressions Abdomen/Pelvis CT 05/02/16 0000 Signed Impressions: Service Date/Time: Monday, May 02, 2016 15:43 - CONCLUSION: 1. The exam demonstrates extensive inflammatory change around the pancreas with fluid extending down into the paracolic gutters consistent with severe pancreatitis. This has significantly worsened when compared to previous dated 04/24/16. No organized pseudocyst is present. 2. NG tube and Hardin in good position. Seng Rollins MD Abdomen X-Ray 04/30/16 0000 Signed Impressions: Service Date/Time: Saturday, April 30, 2016 05:12 - CONCLUSION: No dilated loops of small bowel. Stable dilated transverse colon. Hubert Garcia MD Chest X-Ray 04/27/16 0000 Signed Impressions: Service Date/Time: Wednesday, April 27, 2016 10:28 - CONCLUSION: 1. Dialysis catheter in good position. 2. Increasing bibasilar parenchymal changes worse on the left. Kermit Rollins MD FACR Renal Ultrasound 04/25/16 0000 Signed Impressions: Service Date/Time: Monday, April 25, 2016 15:01 - CONCLUSION: No evidence of hydronephrosis. Tom Seals MD Physical Exam GENERAL: This is a well-nourished, well-developed patient, in no apparent distress. SKIN: No rashes. HEAD: Atraumatic. Normocephalic. No temporal or scalp tenderness. EYES: Pupils equal round and reactive. Extraocular motions intact.No injection or drainage. ENT: Intubated. Left-sided central line with no evidence of infection. NECK: Trachea midline. Supple, nontender, no meningeal signs. CARDIOVASCULAR: Heart sounds audible. RESPIRATORY: Clear to auscultation. Breath sounds equal bilaterally with decrease in the bases. GASTROINTESTINAL: Abdomen soft, distended, tenderness noted but no rigidity. Bowel sounds diminished. MUSCULOSKELETAL: Extremities without clubbing, cyanosis. Pedal edema noted. NEUROLOGICAL: Sedated. Psych could not be assessed IV line sites with no evidence of infection. Assessment & Plan Remarks Possible sepsis (source: likely intra abdominal and aspiration/Health care associated pneumonia. Reviewed other sources: CL and HD cath, Cath associated UTI. Severe acute pancreatitis as most likely cause of new SIRS. No pseudocyst no evidence of any abscess. Acute resp failure on vent. Acute renal failure on Hemodialysis. Alcoholism Recs: Continue Azactam IV pt tolerating doses (noted PCN allergy as hives) Continue Levaquin IV Continue Flagyl oral (will help reduce fluid issues if tolerated) Continue Diflucan IV (for fungal intra abd sepsis/peritonitis) Ok to hold off on Vanco IV in view of acute renal failure. Although patient on HD would like to avoid nephrotoxins. If any change in condition overnight please call me or broaden coverage to Meropenem + Micafungin +- Zyvox (given PNA would like to avoid Dapto) Will follow clinically Follow cultures Patient is critically ill. Sienna Hercules MD May 04, 2016 11:15
--- NOTE | 2016-05-04 14:35 | HHI.NPPN ---
Subjective History of Present Illness 65 year old with Acute pancreatitis, ARF, Respiratory distress, now intubated on hemodialysis Additional Remarks Patient intubated, tolerated HD yesterday Objective Data Data 05/03/16 05/04/16 19:00 07:00 Intake Total 857 ml 1234 ml Output Total 2750 ml 275 ml Balance -1893 ml 959 ml IV Total 737 ml 1114 ml Tube Irrigant 120 ml 120 ml Output Urine Total 250 ml 175 ml Gastric Drainage Total 0 ml 100 ml Hemodialysis 2500 ml # Bowel Movements 0 0 Vital Signs Date Time Temp Pulse Resp B/P Pulse Ox O2 Delivery O2 Flow Rate FiO2 05/04/16 12:00 99.7 80 16 87/50 98 05/04/16 12:00 50 05/04/16 12:00 80 05/04/16 11:14 99 40 05/04/16 10:00 88 05/04/16 08:12 40 05/04/16 08:12 96 40 05/04/16 08:00 91 05/04/16 08:00 100.9 91 10 105/58 96 05/04/16 08:00 50 05/04/16 06:00 92 05/04/16 04:53 95 40 05/04/16 04:00 100.8 86 17 102/58 97 05/04/16 04:00 86 05/04/16 04:00 50 05/04/16 02:00 85 05/04/16 01:12 93 40 05/04/16 00:00 100.2 89 17 107/59 98 05/04/16 00:00 89 05/04/16 00:00 50 05/03/16 22:00 92 05/03/16 20:35 97 40 05/03/16 20:30 50 05/03/16 20:00 50 05/03/16 20:00 90 05/03/16 20:00 99.3 90 22 115/55 96 05/03/16 18:00 90 05/03/16 17:59 95 40 05/03/16 16:00 88 05/03/16 16:00 99.1 88 11 119/56 97 05/03/16 16:00 50 -: 05/04/16 0355 05/04/16 0355 Physical Exam General Appearance: Well Developed Neck Neck Exam: Neck Supple Pulmonary Resp Exam: Decreased Bases Cardiology CV Exam: Tachycardia Gastrointestinal/Abdomen GI Exam: Distended Integumentary Skin Exam: Dry, Intact Extremeties Extremities Exam: Moderate Edema Assessment/Plan Problem List: (1) Acute renal failure Plan: Patient has renal failure likely due to complications of pancreatitis and developed acute tubular necrosis now on hemodialysis with minimal UOP. HD done yesterday 2.5 L next HD in am follow renal functions H/H low increase Epogen 10 k (2) Pancreatitis Plan: Severe pancreatitis with acute renal failure severe hypocalcemia and developing acidosis and ARDS (3) Abdominal pain Plan: Distention due to pancreatitis (4) COPD exacerbation Plan: Continue treatment, on vent Problem Qualifiers (1) Acute renal failure: Qualified Code: N17.0 - Acute renal failure with tubular necrosis (2) Pancreatitis: Qualified Code: K85.20 - Alcohol-induced acute pancreatitis, unspecified complication status (3) Abdominal pain: Qualified Code: R10.12 - Left upper quadrant pain Janett Crane MD May 04, 2016 14:35
[2016-05-04] MEDS: PROPOFOL 1000 MG/100 ML INJ 100 ML IV SCH ×2 (14:39→18:09)
--- NOTE | 2016-05-04 14:48 | HHI.GIFU ---
Subjective Remarks Sedated on vent. No distress. (Fernanda Zhang) Objective Vitals I&O Vital Signs Date Time Temp Pulse Resp B/P Pulse Ox O2 Delivery O2 Flow Rate FiO2 05/04/16 12:00 99.7 80 16 87/50 98 05/04/16 12:00 50 05/04/16 12:00 80 05/04/16 11:14 99 40 05/04/16 10:00 88 05/04/16 08:12 40 05/04/16 08:12 96 40 05/04/16 08:00 91 05/04/16 08:00 100.9 91 10 105/58 96 05/04/16 08:00 50 05/04/16 06:00 92 05/04/16 04:53 95 40 05/04/16 04:00 100.8 86 17 102/58 97 05/04/16 04:00 86 05/04/16 04:00 50 05/04/16 02:00 85 05/04/16 01:12 93 40 05/04/16 00:00 100.2 89 17 107/59 98 05/04/16 00:00 89 05/04/16 00:00 50 05/03/16 22:00 92 05/03/16 20:35 97 40 05/03/16 20:30 50 05/03/16 20:00 50 05/03/16 20:00 90 05/03/16 20:00 99.3 90 22 115/55 96 05/03/16 18:00 90 05/03/16 17:59 95 40 05/03/16 16:00 88 05/03/16 16:00 99.1 88 11 119/56 97 05/03/16 16:00 50 I/O 05/03/16 05/03/16 05/03/16 05/04/16 05/04/16 05/04/16 07:00 15:00 23:00 07:00 15:00 23:00 Intake Total 785 ml 857 ml 510 ml 724 ml Output Total 225 ml 250 ml 2625 ml 150 ml Balance 560 ml 607 ml -2115 ml 574 ml IV Total 685 ml 737 ml 450 ml 664 ml Tube Irrigant 100 ml 120 ml 60 ml 60 ml Output Urine Total 175 ml 250 ml 75 ml 100 ml Gastric Drainage Total 50 ml 0 ml 50 ml 50 ml Hemodialysis 2500 ml # Bowel Movements 0 0 0 0 Laboratory Laboratory Tests Test 05/04/16 03:55 White Blood Count 23.5 Red Blood Count 2.85 Hemoglobin 7.4 Hematocrit 21.8 Mean Corpuscular Volume 76.8 Mean Corpuscular Hemoglobin 26.1 Mean Corpuscular Hemoglobin 33.9 Concent Red Cell Distribution Width 17.3 Platelet Count 236 Mean Platelet Volume 9.2 Sodium Level 139 Potassium Level 3.9 Chloride Level 100 Carbon Dioxide Level 28.2 Anion Gap 11 Blood Urea Nitrogen 48 Creatinine 4.07 Estimat Glomerular Filtration 18 Rate Random Glucose 88 Calcium Level 8.6 Phosphorus Level 5.0 Magnesium Level 1.8 Lipase 67 Date/Time Procedure Status Source Growth 04/30/16 08:55 Aerobic Blood Culture - Preliminary Resulted Blood Peripheral NO GROWTH IN 4 DAYS 04/30/16 08:55 Anaerobic Blood Culture - Preliminary Resulted Blood Peripheral NO GROWTH IN 4 DAYS 04/30/16 08:20 Urine Culture - Final Complete Urine Catheterized Urine NO GROWTH IN 48 HOURS. 04/30/16 08:20 Gram Stain - Final Complete Sputum Endotracheal 04/30/16 08:20 Sputum Culture - Final Complete Escherichia Coli Klebsiella Pneumoniae Staphylococcus Aureus Imaging Last Impressions Abdomen/Pelvis CT 05/02/16 0000 Signed Impressions: Service Date/Time: Monday, May 02, 2016 15:43 - CONCLUSION: 1. The exam demonstrates extensive inflammatory change around the pancreas with fluid extending down into the paracolic gutters consistent with severe pancreatitis. This has significantly worsened when compared to previous dated 04/24/16. No organized pseudocyst is present. 2. NG tube and Hardin in good position. Seng Rollins MD Abdomen X-Ray 04/30/16 0000 Signed Impressions: Service Date/Time: Saturday, April 30, 2016 05:12 - CONCLUSION: No dilated loops of small bowel. Stable dilated transverse colon. Hubert Garcia MD Chest X-Ray 04/27/16 0000 Signed Impressions: Service Date/Time: Wednesday, April 27, 2016 10:28 - CONCLUSION: 1. Dialysis catheter in good position. 2. Increasing bibasilar parenchymal changes worse on the left. Kermit Rollins MD FACR Renal Ultrasound 04/25/16 0000 Signed Impressions: Service Date/Time: Monday, April 25, 2016 15:01 - CONCLUSION: No evidence of hydronephrosis. Tom Seals MD Physical Exam HEENT: Normocephalic; atraumatic; no jaundice. CHEST: Rhonchi. OETT to vent. CARDIAC: RRR ABDOMEN: Soft, distended- not tympanic, bowel sounds are hypoactive. EXTREMITIES: Generalized edema. 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 (Fernanda Zhang) Assessment and Plan Plan ASSESSMENT: - Severe pancreatitis (acute on chronic), with heavy alcohol intake about [address] Abdomen and pelvis (04/24/16)---> Inflammatory stranding in and around the pancreas suggestive of pancreatitis without any focal areas of necrosis or pseudocyst formation. Mildly fatty liver. Rpt. CT Scan abdomen and pelvis Without IV contrast (05/02/16)-----> exam demonstrates extensive inflammatory change around the pancreas with fluid extending down into the paracolic gutters consistent with severe pancreatitis. This has significantly worsened when compared to the previous stated 04/24/16. No organized pseudocyst is present. WBC 23.5. Lipase 67. LFT stable. Has NGT, but would be better to start post pylori feedings. Has significant distention, although suspect more fluid from pancreatitis than air. Will have nurse place dobhoff instead of NGT. After this is placed, will get KUB to confirm placement and to evaluate abdominal distention. If not post pyloric, then will have diagnostic radiology advance. If unable to get post pyloric feedings, other option would be TPN. - Ileus/vs obstruction. Pt has significant distention, but suspect this is more related to fluid/pancreatitis. Will evaluate at time of KUB. - Persistent Leukocytosis. Flagyl, Diflucan, Azactam, Levaquin, - Anemia. 7.4/21.8. - ARF. HD. - Hep-c (+)- not sure if he had tx or not, he is not a candidate due to drinking behavior - Acute respiratory failure - per CCM - DM, COPD per CCM Plan: - NPO - Place Dobhoff tube (Remove NGT once done) - After Dobhoff placed then will need KUB to confirm placement and to evaluate distention - If Dobhoff is not post pylorus, then have diagnostic radiology advance for post pyloric feedings - Once placement confirmed okay to start Nepro 20cc/hr - If Dobhoff is not able to be placed, then TPN is another option - Lighting Fixtures Decorator consult, TF and TPN recommendations please - Monitor labs - Abx per ID - Supportive care - Further recommendations to follow based on results of above - PT seen and examined by Dr. Gordon and myself and this note is written on her behalf (Fernanda Zhang) Physician Comments seen, examined agree with above we will reevaluate in am for possible tf (Meghan Gordon MD) Fernanda Zhang May 04, 2016 14:48 Meghan Godron MD May 04, 2016 21:00
[2016-05-04] MEDS: FLUCONAZOLE 200 MG PREMIX BAG 100 ML IV SCH (17:40)
--- NOTE | 2016-05-04 18:38 | RADRPT ---
EXAM DATE/TIME: 05/04/2016 17:56 [facility] COMPARISON: No previous studies available for comparison. INDICATIONS : Dobhoff placement. MEDICAL HISTORY : Congestive heart failure. Arthritis. Pancreatitis. ETOH abuse. Diabetes. SURGICAL HISTORY : Appendectomy. Right knee and elbow surgery. Bone spur resection, right arm. ENCOUNTER: Subsequent ACUITY: 2 weeks PAIN SCORE: Non-responsive. LOCATION: Bilateral Abdomen FINDINGS: A single AP supine view of the upper abdomen was obtained and demonstrates a nasogastric tube with th e tip projected over the distal stomach. A Dobbhoff type feeding tube is present with the tip project ed over the midline in mid stomach. The visualized portions of bowel gas appear unremarkable. There i s patchy opacity at the left lung base. Bony structures are intact. CONCLUSION: 1. Dobbhoff type feeding tube with the tip projected over the mid stomach. 2. Nasogastric tube in place with the tip projected over the distal stomach. 3. Patchy opacity in the left lung base. Devyn Bhatti MD on May 04, 2016 at 18:36 Board Certified Radiologist. This report was verified electronically.
[2016-05-04] MEDS: RESP: ALBUTEROL 2.5 MG/IPRATROPIUM 0.5 MG NEB (PRN) INH (19:38)
--- NOTE | 2016-05-04 21:26 | RADRPT ---
EXAM DATE/TIME: 05/04/2016 20:46 [facility] COMPARISON: ABDOMEN SINGLE VIEW, May 04, 2016, 17:56. INDICATIONS : Evaluate for DOBB ALE placement. MEDICAL HISTORY : Congestive heart failure. Arthritis. Pancreatitis. ETOH abuse. Diabetes. SURGICAL HISTORY : Appendectomy. Right knee and elbow surgery. Bone spur resection, right arm. ENCOUNTER: Subsequent ACUITY: 1 day PAIN SCORE: Non-responsive. LOCATION: Abdomen FINDINGS: A single AP portable view of the mid and upper abdomen were obtained and demonstrate mild advancement of the nasogastric tube with the tip projected over the mid to distal stomach. Nasogastric tube jack ins in place with the tip projected over the distal stomach. There is a nonobstructive bowel gas bharti juancarlos. The bony structures are intact. CONCLUSION: Mild advancement of the nasogastric tube. Devyn Bhatti MD on May 04, 2016 at 21:23 Board Certified Radiologist. This report was verified electronically.
[2016-05-05] VITALS (20 sets, daily range): BP systolic 105–133; BP diastolic 56–63; PULSE 77–96; RESP 14–18; TEMP 99.9–100.4; O2SAT 96–100
[2016-05-05] MEDS: metroNIDAZOLE 500 MG TAB PO/NG SCH ×3 (02:11→17:36)
[2016-05-05] MEDS: oxyCODONE HCL ORAL CONC 20 MG/ML SYRINGE PO SCH ×6 (03:08→23:23)
[2016-05-05] MEDS: PROPOFOL 1000 MG/100 ML INJ 100 ML IV SCH (03:38)
[2016-05-05] MEDS: CHLORHEXIDINE GLUCONATE 2 % 1 PACK (2 CLOTHS) TOP SCH (03:38)
[2016-05-05] MEDS: fentaNYL DRIP 250 ML IV SCH ×2 (03:39→18:44)
[2016-05-05 04:21] LABS: AUTOMATED NEUTROPHIL # 21.5 TH/MM3 (1.8-7.7); BASOPHIL # 0.2 TH/MM3 (0-0.2); BASOPHIL % 0.6 % (0.0-2.0); EOSINOPHIL # 0.5 TH/MM3 (0-0.4); EOSINOPHIL % 1.7 % (0.0-4.0); HEMATOCRIT 23.5 % (39.0-51.0); LYMPHOCYTE # 3.3 TH/MM3 (1.0-4.8); MEAN CORPUSCULAR HEMOGLOBIN 25.8 PG (27.0-34.0); MEAN CORPUSCULAR HGB CONC 33.1 % (32.0-36.0); MONO % 7.8 % (0.0-8.0); NEUT % 77.9 % (16.0-70.0); PLATELET COUNT 271 TH/MM3 (150-450); RED BLOOD COUNT 3.01 MIL/MM3 (4.50-5.90); RED CELL DISTRIBUTION WIDTH 17.7 % (11.6-17.2); WHITE BLOOD COUNT 27.6 TH/MM3 (4.0-11.0)
[2016-05-05 04:29] LABS: HEMO FLAGS AUTO DIFF
[2016-05-05 04:48] LABS: ALKALINE PHOSPHATASE 126 U/L (45-117); ALT (GPT) 15 U/L (12-78); ANION GAP 12 MEQ/L (5-15); AST (GOT) 28 U/L (15-37); BICARBONATE 26.1 MEQ/L (21.0-32.0); BLOOD UREA NITROGEN 62 MG/DL (7-18); CHLORIDE 98 MEQ/L (98-107); GLOMERULAR FILTRATION RATE 15 ML/MIN (>89); POTASSIUM 3.9 MEQ/L (3.5-5.1); SODIUM (NA) 136 MEQ/L (136-145)
[2016-05-05 05:19] LABS: BANDS 25 % (0-6); EOSINOPHILS 5 % (0-4); METAMYELOCYTES 2 % (0-1); NEUTROPHIL # MANUAL DIFF 24.8 TH/MM3 (1.8-7.7); POLYS (SEG NEUTROPHILS) 63 % (16-70); SCAN/DIFF AUTO DIFF CONFIRMED; TOXIC GRANULATION 1+ (NORMAL); WBC DIFF SAMPLE 100
[2016-05-05 05:20] LABS: ACANTHOCYTES OCC (NORMAL); DOHLE BODIES PRESENT (NONE SEEN); PLATELET ESTIMATE SMEAR NORMAL (NORMAL); PLATELET MORPHOLOGY NORMAL (NORMAL); TARGET CELLS 1+ (NORMAL)
[2016-05-05] MEDS: INSULIN NovoLIN REGULAR SUPPLEMENTAL SCALE SQ SCH ×2 (05:53→12:00)
--- NOTE | 2016-05-05 07:21 | HHI.CCPN ---
Subjective Remarks/Hospital Course This is a 65-year-old male with history of COPD, strong alcohol abuse history, diabetes, questionable history of heart failure, coronary artery disease who initially presented to the emergency department 04/25 with abdominal pain and was found to have acute pancreatitis. He was noted to the hospital at that time. Over the subsequent 48 hours, he developed worsening hypoxia as well as an acute kidney injury. This was initially thought to be CHF exacerbation and volume overload. He was given diuretics without a good response. His creatinine has trended up to 6. Nephrology was consulted and are considering renal replacement therapy. Tonight throughout the night, the patient became more hypoxic and dyspneic with increasing oxygen requirement. He is transferred to the ICU for his acute hypoxic respiratory failure. The patient is nauseated and has vomited a few times. 04/28: Intubated for respiratory distress with hypoxemia, now with acceptable gas exchange. Tolerating dialysis, try to extubate shortly. 04/29: Abdomen much too distended for extubation. NG tube placed with Roman forceps. 04/30: Abdomen remains tensely distended. No peritoneal irritation. BS few. 05/01: Abdomen remains tensely distended. No peritoneal irritation. 05/02: Abdominal distention worse. Pain worse. Will get CT to look for perforation. 05/03: CT abdomen with rip-roaring inflammatory process involving the pancreas; much worse. Sputum with multiple organisms. Patient clinically more critically ill. 05/04: Will start TFs if OK with GI service. 05/05: Dobhoff tube in stomach. Will try to advance to duodenum and avoid TPN if at all possible. Objective Vital Signs Date Time Temp Pulse Resp B/P Pulse Ox O2 Delivery O2 Flow Rate FiO2 05/05/16 06:00 88 05/05/16 04:32 100 40 05/05/16 04:08 17 05/05/16 04:00 100.4 133/63 05/01/16 08:29 Ventilator Intake and Output 05/04/16 05/04/16 05/05/16 08:00 16:00 00:00 Intake Total 724 ml 774 ml 799 ml Output Total 150 ml 125 ml 170 ml Balance 574 ml 649 ml 629 ml Result Diagram: 05/05/16 0405 05/05/16 0405 Imaging Critical care bedside ultrasound 04/27: Grossly preserved left ventricular function. Normal RV size and function. Small collapsible IVC which very strongly with respirations and is almost completely flat with inspiration. No pericardial effusion. Objective Remarks GENERAL: Middle-aged male, calm on moderate sedation HEENT: Normocephalic. Atraumatic. NECK: Supple, orally intubated. CHEST: Diffuse rhonchi, decreased BS bases. Good ling air movement. Copious secretions continue. CARDIOVASCULAR: Tachycardia, irregular rhythm. No murmurs. No JVD. ABDOMEN: Tensely distended, firm, generally tender to palpation, Few BS. MUSCULOSKELETAL: No peripheral edema.Warm, well perfused. NEUROLOGICAL: Opens eyes to voice. Requires heavy sedation due to ETOH Hx. Follows commands all 4 extremities. Grimaces to pain. A/P Assessment and Plan Plan by systems: Neurologic: Alcohol abuse Metabolic encephalopathy Propofol and fentanyl for goal RASS Goal RASS -1. Daily vacation - Start to lower sedationn 05/05. Respiratory: Acute hypoxic respiratory failure ARDS COPD Low tidal volume ventilation turning 6 cc/kg ideal body weight Vent bundle Head of bed at 30 Wean FiO2 for goal SPO2 greater than 90% Nebs every 6 and every 2 when necessary -Acceptable gas exchange. Abdomen much too distended to allow comfortable unassisted ventilation. -Consider trach to facilitate pulmonary toilet and mobilization. Cardiovascular: Sinus tachycardia SIRS response Continue telemetry SIRS likely 2/2 acute pancreatitis Renal: Acute kidney injury Likely has a component of prerenal, but also likely from acute pancreatitis We'll place Hardin with urometer. Every hour urine outputs -- Strict I/Os -Continue HD. FEN/GI: Severe intravascular volume depletion Severe acute pancreatitis Severe hypocalcemia Metabolic acidosis Strict nothing by mouth Place OG tube to wall suction Daily BMP, LFTs, lipase Heme/ID: Leukocytosis Likely reactive secondary to acute pancreatitis I do not think he is infected at this point. Urine, sputum, blood cultures. ABX per ID service. Daily CBC ID - Leukocytosis with shift. Dr. Hercules advising. Sputum 05/01 - Klebsiella, E. cijohn, Staph MSSA Endocrine: Diabetes -- SSI, medium scale, every 6 hours Prophylaxis: GI Prophylaxis Protonix 40 mg IV daily 24 hours DVT Prophylaxis -- SCDs Heparin 5000 every 8 Lines: 04/27 left radial arterial line 04/27 left subclavian triple-lumen catheter Hardin I had a lengthy discussion with his son yesterday about the severity of his illness and poor prognosis. Overall impression: Marked abdominal distention persists with obstructive sounds and tenderness. Tolerates SBT but won't ventilate with severe abdominal distention. Enteral nutrition to start when DHT post-pyloric. Adithya Paulson MD May 05, 2016 07:21
[2016-05-05] MEDS: HEPARIN SODIUM - SQ 10,000 UNITS/ML VIAL SQ SCH ×3 (07:23→23:23)
[2016-05-05] MEDS: AZTREONAM INJ 1,000 MG in SODIUM CHLORIDE 0.9% INJ 100 ML IV SCH ×2 (07:23→19:32)
[2016-05-05] MEDS: NOREPINEPHRINE 4 MG/D5W 250 ML IV SCH ×2 (07:23→18:44)
[2016-05-05] MEDS: SODIUM CHLOR 0.9% 1000 ML INJ 1,000 ML IV PRN (07:38)
[2016-05-05] MEDS: ALBUMIN HUMAN 25% 25 GM/100 ML BAGP IV PRN ×2 (07:39→07:41)
[2016-05-05] MEDS: MANNITOL 12.5 GM/50 ML VIAL IV PRN (07:39)
[2016-05-05] MEDS: HEPARIN SODIUM - IV 10,000 UNITS/10 ML VIAL PRN (07:39)
[2016-05-05] MEDS: GENTAMICIN SULFATE (DIALYSIS USE ONLY) 20 MG/2 ML VIAL IV PRN (07:40)
[2016-05-05] MEDS: EPOETIN ALFA 10,000 UNITS/ML VIAL IV PRN (07:40)
[2016-05-05] MEDS: CHLORHEXIDINE 0.12% (ORAL KIT) 15 ML CUP MT SCH ×2 (08:00→19:32)
[2016-05-05] MEDS: SODIUM CHLORIDE 0.9% FLUSH 5 ML FLUSH IV FLUSH SCH ×2 (09:00→19:33)
[2016-05-05] MEDS: PANTOPRAZOLE SODIUM 40 MG VIAL IV SCH (09:23)
[2016-05-05] MEDS: LEVOFLOXACIN 500 MG PREMIX INJ 100 ML IV SCH (12:03)
--- NOTE | 2016-05-05 14:02 | HHI.NPPN ---
Subjective History of Present Illness 65 year old with Acute pancreatitis, ARF, Respiratory distress, now intubated on hemodialysis Additional Remarks Patient intubated, tolerated HD today Objective Data Data 05/04/16 05/05/16 19:00 07:00 Intake Total 774 ml 1336 ml Output Total 125 ml 370 ml Balance 649 ml 966 ml IV Total 654 ml 1216 ml Tube Irrigant 120 ml 120 ml Output Urine Total 100 ml 350 ml Gastric Drainage Total 25 ml 20 ml # Bowel Movements 1 0 Vital Signs Date Time Temp Pulse Resp B/P Pulse Ox O2 Delivery O2 Flow Rate FiO2 05/05/16 13:35 100 40 05/05/16 12:00 92 05/05/16 12:00 40 05/05/16 12:00 100.2 92 16 115/56 100 05/05/16 10:19 40 05/05/16 10:19 100 40 05/05/16 10:00 89 05/05/16 08:00 40 05/05/16 08:00 81 05/05/16 08:00 99.9 81 18 126/61 100 05/05/16 07:29 100 40 05/05/16 06:00 88 05/05/16 04:32 100 40 05/05/16 04:08 17 05/05/16 04:00 100.4 86 17 133/63 100 05/05/16 04:00 40 05/05/16 04:00 86 05/05/16 02:00 79 05/05/16 01:31 100 40 05/05/16 00:00 100.2 77 15 128/62 100 05/05/16 00:00 77 05/05/16 00:00 40 05/04/16 22:54 100 40 05/04/16 22:00 80 05/04/16 20:00 40 05/04/16 20:00 81 05/04/16 20:00 99.9 81 16 115/59 100 05/04/16 19:31 100 40 05/04/16 18:00 84 05/04/16 16:00 50 05/04/16 16:00 99.0 78 12 100/55 100 05/04/16 16:00 78 05/04/16 15:56 100 40 -: 05/05/16 0405 05/05/16 0405 Physical Exam General Appearance: Well Developed Neck Neck Exam: Neck Supple Pulmonary Resp Exam: Decreased Bases Cardiology CV Exam: Tachycardia Gastrointestinal/Abdomen GI Exam: Distended Integumentary Skin Exam: Dry, Intact Extremeties Extremities Exam: Moderate Edema Assessment/Plan Problem List: (1) Acute renal failure Plan: Patient has renal failure likely due to complications of pancreatitis and developed acute tubular necrosis now on hemodialysis with minimal UOP. HD done today 3 L next HD Monday follow renal functions H/H low Epogen 10 k (2) Pancreatitis Plan: Severe pancreatitis with acute renal failure (3) Abdominal pain Plan: Distention due to pancreatitis (4) COPD exacerbation Plan: Continue treatment, on vent Problem Qualifiers (1) Acute renal failure: Qualified Code: N17.0 - Acute renal failure with tubular necrosis (2) Pancreatitis: Qualified Code: K85.20 - Alcohol-induced acute pancreatitis, unspecified complication status (3) Abdominal pain: Qualified Code: R10.12 - Left upper quadrant pain Janett Crane MD May 05, 2016 14:02 Janett Crane MD May 05, 2016 14:02
--- NOTE | 2016-05-05 14:43 | RADRPT ---
EXAM DATE/TIME: 05/05/2016 13:42 [facility] COMPARISON: ABDOMEN SINGLE VIEW, May 04, 2016, 20:46. INDICATIONS : Dobhoff placement. MEDICAL HISTORY : Hypertension. Congestive heart failure. SURGICAL HISTORY : None. ENCOUNTER: Initial ACUITY: 1 day PAIN SCORE: Non-responsive. LOCATION: Abdomen FINDINGS: Dobbhoff tube again projecting over the distal stomach. Nasogastric tube with the proximal port below the gastroesophageal junction. Stable position. Examination of the abdomen demonstrates a normal bowel gas pattern. No free air is identified. No o rganomegaly is evident. Osseous structures are intact. CONCLUSION: No evidence of obstruction. Stable placement of Dobbhoff tube and nasogastric tube. Tessa Nichole MD on May 05, 2016 at 14:40 Board Certified Radiologist. This report was verified electronically.
[2016-05-05] MEDS ORDERED: EPINEPHrine HCL (1:10,000) 1 MG/10 ML SYRINGE ONE (16:07)
--- NOTE | 2016-05-05 17:09 | RADRPT ---
EXAM DATE/TIME: 05/05/2016 16:20 [facility] COMPARISON: No previous studies available for comparison. INDICATIONS : Attemt to advance dobhoff tube. FLUORO TIME: 1.5 minutes IMAGE COUNT: 1 MEDICAL HISTORY : Hypertension. Chronic obstructive pulmonary disease. Renal failure, acute. Diabetes SURGICAL HISTORY : None. ENCOUNTER: Initial ACUITY: 3 days PAIN SCORE: Non-responsive. LOCATION: Left abdomen. FINDINGS: With fluoroscopic guidance the previously placed Dobbhoff tube was attempted to be repositioned. Syed amee, despite multiple attempts the tube in what is seen coiling within the patient's mouth and proxim al esophagus. Attempts were discontinued. CONCLUSION: Fluoroscopically guided nasogastric tube repositioning as above. Attempts were discontinued after multiple attempts with the tubing seen coiling within the patient's mouth region and proximal esophagus. Tessa Nichole MD on May 05, 2016 at 17:06 Board Certified Radiologist. This report was verified electronically.
[2016-05-05] MEDS: FLUCONAZOLE 200 MG PREMIX BAG 100 ML IV SCH (17:36)
--- NOTE | 2016-05-05 18:13 | HHI.IDPN ---
Subjective Subjective Remarks is a 65 y/o AAM with PMHx of COPD, CAD/CHF, DM, heavy alcohol abuse , Hepatitis C, pancreatitis in past. ID following for possible sepsis, acute pancreatitis and pneumonia. Overnight events reviewed. Tmax 100.4 F No rash No diarrhea Undergoes HD. Remains on low dose levophed. DDanniew the physiology of pt does not appear sepsis related at present time. Antibiotics Azactam IV flagyl diflucan Lines Line sites with no e/o infection Past Medical History reviewed Allergies: Coded Allergies: Penicillin (Verified Allergy, Severe, HIVES, 04/24/16) Objective . Vital Signs Date Time Temp Pulse Resp B/P Pulse Ox O2 Delivery O2 Flow Rate FiO2 05/05/16 18:00 87 05/05/16 17:03 100 100 05/05/16 16:00 100.0 90 14 105/57 100 05/05/16 16:00 40 05/05/16 16:00 96 05/05/16 15:56 100 40 05/05/16 14:00 89 05/05/16 13:35 100 40 05/05/16 12:00 92 05/05/16 12:00 40 05/05/16 12:00 100.2 92 16 115/56 100 05/05/16 10:19 40 05/05/16 10:19 100 40 05/05/16 10:00 89 05/05/16 08:00 40 05/05/16 08:00 81 05/05/16 08:00 99.9 81 18 126/61 100 05/05/16 07:29 100 40 05/05/16 06:00 88 05/05/16 04:32 100 40 05/05/16 04:08 17 05/05/16 04:00 100.4 86 17 133/63 100 05/05/16 04:00 40 05/05/16 04:00 86 05/05/16 02:00 79 05/05/16 01:31 100 40 05/05/16 00:00 100.2 77 15 128/62 100 05/05/16 00:00 77 05/05/16 00:00 40 05/04/16 22:54 100 40 05/04/16 22:00 80 05/04/16 20:00 40 05/04/16 20:00 81 05/04/16 20:00 99.9 81 16 115/59 100 05/04/16 19:31 100 40 05/04/16 05/04/16 05/05/16 15:00 23:00 07:00 Intake Total 774 ml 799 ml 537 ml Output Total 125 ml 170 ml 200 ml Balance 649 ml 629 ml 337 ml IV Total 654 ml 739 ml 477 ml Tube Irrigant 120 ml 60 ml 60 ml Output Urine Total 100 ml 150 ml 200 ml Gastric Drainage Total 25 ml 20 ml 0 ml # Bowel Movements 1 0 0 . Laboratory Tests Test 05/04/16 05/05/16 03:55 04:05 White Blood Count 23.5 TH/MM3 27.6 TH/MM3 Red Blood Count 2.85 MIL/MM3 3.01 MIL/MM3 Hemoglobin 7.4 GM/DL 7.8 GM/DL Hematocrit 21.8 % 23.5 % Mean Corpuscular Volume 76.8 FL 78.0 FL Mean Corpuscular Hemoglobin 26.1 PG 25.8 PG Mean Corpuscular Hemoglobin 33.9 % 33.1 % Concent Red Cell Distribution Width 17.3 % 17.7 % Platelet Count 236 TH/MM3 271 TH/MM3 Mean Platelet Volume 9.2 FL 9.1 FL Neutrophils (%) (Auto) 77.9 % Lymphocytes (%) (Auto) 12.0 % Monocytes (%) (Auto) 7.8 % Eosinophils (%) (Auto) 1.7 % Basophils (%) (Auto) 0.6 % Neutrophils # (Auto) 21.5 TH/MM3 Lymphocytes # (Auto) 3.3 TH/MM3 Monocytes # (Auto) 2.1 TH/MM3 Eosinophils # (Auto) 0.5 TH/MM3 Basophils # (Auto) 0.2 TH/MM3 CBC Comment AUTO DIFF Differential Total Cells 100 Counted Neutrophils % (Manual) 63 % Band Neutrophils % 25 % Lymphocytes % 2 % Monocytes % 3 % Eosinophils % 5 % Neutrophils # (Manual) 24.8 TH/MM3 Metamyelocytes 2 % Differential Comment AUTO DIFF CONFIRMED Toxic Granulation 1+ Dohle Bodies PRESENT Platelet Estimate NORMAL Platelet Morphology Comment NORMAL Target Cells 1+ Acanthocytes OCC Laboratory Tests Test 05/04/16 05/05/16 03:55 04:05 Sodium Level 139 MEQ/L 136 MEQ/L Potassium Level 3.9 MEQ/L 3.9 MEQ/L Chloride Level 100 MEQ/L 98 MEQ/L Carbon Dioxide Level 28.2 MEQ/L 26.1 MEQ/L Anion Gap 11 MEQ/L 12 MEQ/L Blood Urea Nitrogen 48 MG/DL 62 MG/DL Creatinine 4.07 MG/DL 4.81 MG/DL Estimat Glomerular Filtration 18 ML/MIN 15 ML/MIN Rate Random Glucose 88 MG/DL 98 MG/DL Calcium Level 8.6 MG/DL 8.6 MG/DL Phosphorus Level 5.0 MG/DL Magnesium Level 1.8 MG/DL Lipase 67 U/L Total Bilirubin 1.0 MG/DL Aspartate Amino Transf 28 U/L (AST/SGOT) Alanine Aminotransferase 15 U/L (ALT/SGPT) Alkaline Phosphatase 126 U/L Total Protein 5.9 GM/DL Albumin 2.1 GM/DL Imaging Last Impressions Abdomen/Pelvis CT 05/02/16 0000 Signed Impressions: Service Date/Time: Monday, May 02, 2016 15:43 - CONCLUSION: 1. The exam demonstrates extensive inflammatory change around the pancreas with fluid extending down into the paracolic gutters consistent with severe pancreatitis. This has significantly worsened when compared to previous dated 04/24/16. No organized pseudocyst is present. 2. NG tube and Hardin in good position. Seng Rollins MD Abdomen X-Ray 04/30/16 0000 Signed Impressions: Service Date/Time: Saturday, April 30, 2016 05:12 - CONCLUSION: No dilated loops of small bowel. Stable dilated transverse colon. Hubert Garcia MD Chest X-Ray 04/27/16 0000 Signed Impressions: Service Date/Time: Wednesday, April 27, 2016 10:28 - CONCLUSION: 1. Dialysis catheter in good position. 2. Increasing bibasilar parenchymal changes worse on the left. Kermit Rollins MD FACR Renal Ultrasound 04/25/16 0000 Signed Impressions: Service Date/Time: Monday, April 25, 2016 15:01 - CONCLUSION: No evidence of hydronephrosis. Tom Seals MD Physical Exam GENERAL: This is a well-nourished, well-developed patient, in no apparent distress. SKIN: No rashes. HEAD: Atraumatic. Normocephalic. No temporal or scalp tenderness. EYES: Pupils equal round and reactive. Extraocular motions intact.No injection or drainage. ENT: Intubated. Left-sided central line with no evidence of infection. NECK: Trachea midline. Supple, nontender, no meningeal signs. CARDIOVASCULAR: Heart sounds audible. RESPIRATORY: Clear to auscultation. Breath sounds equal bilaterally with decrease in the bases. GASTROINTESTINAL: Abdomen soft, distended, tenderness noted but no rigidity. Bowel sounds diminished. MUSCULOSKELETAL: Extremities without clubbing, cyanosis. Pedal edema noted. NEUROLOGICAL: Sedated. Psych could not be assessed IV line sites with no evidence of infection. Assessment & Plan Remarks Possible sepsis (source: likely intra abdominal and aspiration/Health care associated pneumonia. Reviewed other sources: CL and HD cath, Cath associated UTI. Severe acute pancreatitis as most likely cause of new SIRS. No pseudocyst no evidence of any abscess. Acute resp failure on vent. Acute renal failure on Hemodialysis. Alcoholism Recs: Continue Azactam IV pt tolerating doses (noted PCN allergy as hives) Continue Levaquin IV Continue Flagyl oral (will help reduce fluid issues if tolerated) Continue Diflucan IV (for fungal intra abd sepsis/peritonitis) Ok to hold off on Vanco IV in view of acute renal failure. Although patient on HD would like to avoid nephrotoxins. If any change in condition overnight please call me or broaden coverage to Meropenem + Micafungin +- Zyvox (given PNA would like to avoid Dapto) Follow cultures Will follow prn over the weekend. covering for me. If any change in clinical condition please call. Sienna Hercules MD May 05, 2016 18:13
[2016-05-06] VITALS (16 sets, daily range): BP systolic 98–121; BP diastolic 55–72; PULSE 78–92; RESP 9–16; TEMP 100.2–101.1; O2SAT 95–99
[2016-05-06] MEDS: metroNIDAZOLE 500 MG TAB PO/NG SCH ×3 (01:19→18:25)
[2016-05-06] MEDS: PROPOFOL 1000 MG/100 ML INJ 100 ML IV SCH ×3 (02:02→20:35)
[2016-05-06] MEDS: oxyCODONE HCL ORAL CONC 20 MG/ML SYRINGE PO SCH ×6 (03:27→23:54)
[2016-05-06] MEDS: CHLORHEXIDINE GLUCONATE 2 % 1 PACK (2 CLOTHS) TOP SCH (03:27)
[2016-05-06] MEDS: HEPARIN SODIUM - SQ 10,000 UNITS/ML VIAL SQ SCH ×3 (05:43→22:07)
[2016-05-06] MEDS: CHLORHEXIDINE 0.12% (ORAL KIT) 15 ML CUP MT SCH ×2 (08:29→19:59)
[2016-05-06] MEDS: AZTREONAM INJ 1,000 MG in SODIUM CHLORIDE 0.9% INJ 100 ML IV SCH ×2 (08:30→19:59)
[2016-05-06] MEDS: SODIUM CHLORIDE 0.9% FLUSH 5 ML FLUSH IV FLUSH SCH ×2 (08:31→20:00)
[2016-05-06] MEDS: PANTOPRAZOLE SODIUM 40 MG VIAL IV SCH (08:31)
--- NOTE | 2016-05-06 15:06 | HHI.CCPN ---
Subjective Remarks/Hospital Course This is a 65-year-old male with history of COPD, strong alcohol abuse history, diabetes, questionable history of heart failure, coronary artery disease who initially presented to the emergency department 04/25 with abdominal pain and was found to have acute pancreatitis. He was noted to the hospital at that time. Over the subsequent 48 hours, he developed worsening hypoxia as well as an acute kidney injury. This was initially thought to be CHF exacerbation and volume overload. He was given diuretics without a good response. His creatinine has trended up to 6. Nephrology was consulted and are considering renal replacement therapy. Tonight throughout the night, the patient became more hypoxic and dyspneic with increasing oxygen requirement. He is transferred to the ICU for his acute hypoxic respiratory failure. The patient is nauseated and has vomited a few times. 04/28: Intubated for respiratory distress with hypoxemia, now with acceptable gas exchange. Tolerating dialysis, try to extubate shortly. 04/29: Abdomen much too distended for extubation. NG tube placed with Roman forceps. 04/30: Abdomen remains tensely distended. No peritoneal irritation. BS few. 05/01: Abdomen remains tensely distended. No peritoneal irritation. 05/02: Abdominal distention worse. Pain worse. Will get CT to look for perforation. 05/03: CT abdomen with rip-roaring inflammatory process involving the pancreas; much worse. Sputum with multiple organisms. Patient clinically more critically ill. 05/04: Will start TFs if OK with GI service. 05/05: Dobbhoff tube in stomach. Will try to advance to duodenum and avoid TPN if at all possible. 05/06: DHT not post-pyloric, will advance and get KUB in a.m. Objective Vital Signs Date Time Temp Pulse Resp B/P Pulse Ox O2 Delivery O2 Flow Rate FiO2 05/06/16 12:00 100.4 87 9 121/56 99 05/06/16 12:00 40 Intake and Output 05/05/16 05/05/16 05/06/16 08:00 16:00 00:00 Intake Total 537 ml 883 ml 655 ml Output Total 200 ml 3175 ml 100 ml Balance 337 ml -2292 ml 555 ml Result Diagram: 05/05/16 0405 05/05/16 0405 Imaging Critical care bedside ultrasound 04/27: Grossly preserved left ventricular function. Normal RV size and function. Small collapsible IVC which very strongly with respirations and is almost completely flat with inspiration. No pericardial effusion. Objective Remarks GENERAL: Middle-aged male, calm on moderate sedation HEENT: Normocephalic. Atraumatic. NECK: Supple, orally intubated. CHEST: Diffuse rhonchi, decreased BS bases. Good ling air movement. Copious secretions persist. CARDIOVASCULAR: Tachycardia, irregular rhythm. No murmurs. No JVD. ABDOMEN: Tensely distended, firm, generally tender to palpation, Occasional BS. MUSCULOSKELETAL: No peripheral edema.Warm, well perfused. NEUROLOGICAL: Opens eyes to voice. Tracks with eyes. Follows commands all 4 extremities. Grimaces to pain. A/P Assessment and Plan Plan by systems: Neurologic: Alcohol abuse Metabolic encephalopathy Propofol and fentanyl for goal RASS Goal RASS -1. Daily vacation - Start to lower sedation 05/05. - Needs minimal sedation Respiratory: Acute hypoxic respiratory failure ARDS COPD Low tidal volume ventilation turning 6 cc/kg ideal body weight Vent bundle Head of bed at 30 Wean FiO2 for goal SPO2 greater than 90% Nebs every 6 and every 2 when necessary -Acceptable gas exchange. Abdomen much too distended to allow comfortable unassisted ventilation. -Consider trach to facilitate pulmonary toilet and mobilization. Cardiovascular: Sinus tachycardia SIRS response Continue telemetry SIRS likely 2/2 acute pancreatitis Renal: Acute kidney injury Likely has a component of prerenal, but also likely from acute pancreatitis We'll place Hardin with urometer. Every hour urine outputs -- Strict I/Os -Continue HD. FEN/GI: Severe intravascular volume depletion Severe acute pancreatitis Severe hypocalcemia Metabolic acidosis Strict nothing by mouth Place OG tube to wall suction Daily BMP, CBC Heme/ID: Leukocytosis Likely reactive secondary to acute pancreatitis I do not think he is infected at this point. Urine, sputum, blood cultures. ABX per ID service. Daily CBC ID - Leukocytosis with shift. Dr. Hercules advising. Sputum 05/01 - Klebsiella, E. coli, Staph MSSA Endocrine: Diabetes -- SSI, medium scale, every 6 hours Prophylaxis: GI Prophylaxis Protonix 40 mg IV daily 24 hours DVT Prophylaxis -- SCDs Heparin 5000 every 12h Lines: 04/27 left radial arterial line 04/27 left subclavian triple-lumen catheter Hardin I had a lengthy discussion with his son yesterday about the severity of his illness and poor prognosis. Overall impression: Marked abdominal distention persists with obstructive sounds and tenderness. Tolerates SBT but won't ventilate with severe abdominal distention. Enteral nutrition to start when DHT post-pyloric. Will change out central line in anticipation of requiring TPN. Adithya Paulson MD May 06, 2016 15:05
--- NOTE | 2016-05-06 17:29 | HHI.GIFU ---
Subjective Remarks Resting in bed, lethargic but awake. Diffuse tenderness. Nurse reports that he had a smear of stool- but no significant bowel movement. Dobhoff was not able to be advanced with fluoroscopy yesterday. Nurse reports that there is talk of tracheostomy and feeding tube next week. (Fernanda Zhang) Objective Vitals I&O Vital Signs Date Time Temp Pulse Resp B/P Pulse Ox O2 Delivery O2 Flow Rate FiO2 05/06/16 16:56 99 40 05/06/16 14:00 88 05/06/16 12:00 100.4 87 9 121/56 99 05/06/16 12:00 87 05/06/16 12:00 40 05/06/16 11:29 99 40 05/06/16 10:00 82 05/06/16 08:18 98 40 05/06/16 08:18 40 05/06/16 08:18 40 05/06/16 08:00 78 05/06/16 08:00 40 05/06/16 08:00 100.2 78 15 111/56 97 05/06/16 05:37 19 05/06/16 04:05 96 40 05/06/16 04:00 40 05/06/16 04:00 101.1 83 16 114/55 95 05/06/16 00:05 97 40 05/06/16 00:00 40 05/06/16 00:00 100.6 82 15 107/59 97 05/05/16 22:19 97 40 05/05/16 20:00 40 05/05/16 20:00 100.0 84 18 108/56 96 05/05/16 19:34 96 40 05/05/16 18:00 87 I/O 05/05/16 05/05/16 05/05/16 05/06/16 05/06/16 05/06/16 07:00 15:00 23:00 07:00 15:00 23:00 Intake Total 537 ml 883 ml 655 ml 489 ml 590 ml Output Total 200 ml 3175 ml 100 ml 150 ml 180 ml Balance 337 ml -2292 ml 555 ml 339 ml 410 ml IV Total 477 ml 763 ml 655 ml 489 ml 430 ml Tube Irrigant 60 ml 120 ml Other 160 ml Output Urine Total 200 ml 150 ml 100 ml 150 ml 155 ml Gastric Drainage Total 0 ml 25 ml 0 ml 0 ml 25 ml Hemodialysis 3000 ml Bladder Scan Volume Amount 7 ml 7 ml # Bowel Movements 0 0 0 0 0 Imaging Last Impressions Tube Placement X-Ray 05/05/16 0000 Signed Impressions: Service Date/Time: April 16:20 - CONCLUSION: Fluoroscopically guided nasogastric tube repositioning as above. Attempts were discontinued after multiple attempts with the tubing seen coiling within the patient's mouth region and proximal esophagus. Tessa Nichole MD Abdomen X-Ray 05/05/16 0000 Signed Impressions: Service Date/Time: April 13:42 - CONCLUSION: No evidence of obstruction. Stable placement of Dobbhoff tube and nasogastric tube. Tessa Nichole MD Abdomen/Pelvis CT 05/02/16 0000 Signed Impressions: Service Date/Time: Monday, May 02, 2016 15:43 - CONCLUSION: 1. The exam demonstrates extensive inflammatory change around the pancreas with fluid extending down into the paracolic gutters consistent with severe pancreatitis. This has significantly worsened when compared to previous dated 04/24/16. No organized pseudocyst is present. 2. NG tube and Hardin in good position. Seng Rollins MD Chest X-Ray 04/27/16 0000 Signed Impressions: Service Date/Time: Wednesday, April 27, 2016 10:28 - CONCLUSION: 1. Dialysis catheter in good position. 2. Increasing bibasilar parenchymal changes worse on the left. Kermit Rollins MD FACR Renal Ultrasound 04/25/16 0000 Signed Impressions: Service Date/Time: Monday, April 25, 2016 15:01 - CONCLUSION: No evidence of hydronephrosis. Tom Seals MD Physical Exam HEENT: Normocephalic; atraumatic; no jaundice. CHEST: Rhonchi. OETT to vent. CARDIAC: RRR ABDOMEN: Soft, distended, diffuse tenderness, bowel sounds are hypoactive. EXTREMITIES: Generalized edema. SENIOR BUSINESS PROCESS ANALYST: Lethargic, awake. (Fernanda Zhang) Assessment and Plan Plan ASSESSMENT: - Severe pancreatitis (acute on chronic), with heavy alcohol intake about [address] Abdomen and pelvis (04/24/16)---> Inflammatory stranding in and around the pancreas suggestive of pancreatitis without any focal areas of necrosis or pseudocyst formation. Mildly fatty liver. Rpt. CT Scan abdomen and pelvis Without IV contrast (05/02/16)-----> exam demonstrates extensive inflammatory change around the pancreas with fluid extending down into the paracolic gutters consistent with severe pancreatitis. This has significantly worsened when compared to the previous stated 04/24/16. No organized pseudocyst is present. Pt with persistent leukocytosis. LFT stable. Radiology was not able to advance Dobhoff. There is talk of possible tracheostomy/peg next week. Will start TPN for now and then plan for G/J tube placement next week. - Ileus/vs obstruction. Will get repeat CT prior to G/J tube placement - Persistent Leukocytosis. Flagyl, Diflucan, Azactam, Levaquin, - Anemia. 7.11/30. - ARF. HD. - Hep-c (+)- not sure if he had tx or not, he is not a candidate due to drinking behavior - Acute respiratory failure - per CCM - DM, COPD per [facility] Plan: - NPO - Radiology unable to advance Dobhoff - Start TPN Clinimax 4.25/25 Renal Formula at 70cc/hr - Consider G/J tube next week - Rpt. CT prior to G/J tube - Monitor labs - Abx per ID - CCM following - Thread Cutter following - Supportive care - Further recommendations to follow based on results of above - PT seen and examined by Dr. Gordon and myself and this note is written on her behalf (Fernanda Zhang) Physician Comments seen, examined agree with above trial of Reglan, Dulcolax supp and Relistor (Meghan Gordon MD) Fernanda Zhang May 06, 2016 17:29 Meghan Gordon MD May 06, 2016 18:31
--- NOTE | 2016-05-06 17:56 | HHI.NPPN ---
Subjective History of Present Illness 65 year old with Acute pancreatitis, ARF, Respiratory distress, now intubated on hemodialysis Additional Remarks Patient intubated, on CPAP trial Objective Data Data 05/05/16 05/06/16 19:00 07:00 Intake Total 883 ml 1144 ml Output Total 3175 ml 250 ml Balance -2292 ml 894 ml IV Total 763 ml 1144 ml Tube Irrigant 120 ml Output Urine Total 150 ml 250 ml Gastric Drainage Total 25 ml 0 ml Hemodialysis 3000 ml Bladder Scan Volume Amount 7 ml # Bowel Movements 0 0 Vital Signs Date Time Temp Pulse Resp B/P Pulse Ox O2 Delivery O2 Flow Rate FiO2 05/06/16 16:56 99 40 05/06/16 14:00 88 05/06/16 12:00 100.4 87 9 121/56 99 05/06/16 12:00 87 05/06/16 12:00 40 05/06/16 11:29 99 40 05/06/16 10:00 82 05/06/16 08:18 98 40 05/06/16 08:18 40 05/06/16 08:18 40 05/06/16 08:00 78 05/06/16 08:00 40 05/06/16 08:00 100.2 78 15 111/56 97 05/06/16 05:37 19 05/06/16 04:05 96 40 05/06/16 04:00 40 05/06/16 04:00 101.1 83 16 114/55 95 05/06/16 00:05 97 40 05/06/16 00:00 40 05/06/16 00:00 100.6 82 15 107/59 97 05/05/16 22:19 97 40 05/05/16 20:00 40 05/05/16 20:00 100.0 84 18 108/56 96 05/05/16 19:34 96 40 05/05/16 18:00 87 -: 05/05/16 0405 05/05/16 0405 Physical Exam General Appearance: Well Developed Neck Neck Exam: Neck Supple Pulmonary Resp Exam: Decreased Bases Cardiology CV Exam: Tachycardia Gastrointestinal/Abdomen GI Exam: Distended Integumentary Skin Exam: Dry, Intact Extremeties Extremities Exam: Moderate Edema Assessment/Plan Problem List: (1) Acute renal failure Plan: Patient has renal failure likely due to complications of pancreatitis and developed acute tubular necrosis now on hemodialysis with minimal UOP. HD done yesterday 3 L next HD in am follow renal functions H/H low Epogen 10 k (2) Pancreatitis Plan: Severe pancreatitis with acute renal failure s (3) Abdominal pain Plan: Distention due to pancreatitis (4) COPD exacerbation Plan: Continue treatment, on vent Problem Qualifiers (1) Acute renal failure: Qualified Code: N17.0 - Acute renal failure with tubular necrosis (2) Pancreatitis: Qualified Code: K85.20 - Alcohol-induced acute pancreatitis, unspecified complication status (3) Abdominal pain: Qualified Code: R10.12 - Left upper quadrant pain Janett Crane MD May 06, 2016 17:56
[2016-05-06] MEDS: FLUCONAZOLE 200 MG PREMIX BAG 100 ML IV SCH (18:26)
[2016-05-06] MEDS ORDERED: BISACODYL 10 MG SUPP RECTAL ONE (18:30)
[2016-05-06] MEDS ORDERED: METHYLNALTREXONE BROMIDE 12 MG/0.6 ML VIAL SQ ONE (20:00)
[2016-05-06] MEDS: fentaNYL DRIP 250 ML IV SCH (20:35)
[2016-05-06] MEDS: NOREPINEPHRINE 4 MG/D5W 250 ML IV SCH (20:59)
[2016-05-06] MEDS: METOCLOPRAMIDE HCL 10 MG/2 ML VIAL IV PUSH SCH (21:08)
[2016-05-07] VITALS (19 sets, daily range): BP systolic 80–124; BP diastolic 50–64; PULSE 70–94; RESP 10–27; TEMP 98.9–101.2; O2SAT 96–100
[2016-05-07] MEDS: metroNIDAZOLE 500 MG TAB PO/NG SCH ×3 (01:17→16:42)
[2016-05-07] MEDS: oxyCODONE HCL ORAL CONC 20 MG/ML SYRINGE PO SCH ×5 (04:10→20:48)
[2016-05-07] MEDS: PROPOFOL 1000 MG/100 ML INJ 100 ML IV SCH ×2 (04:10→13:01)
[2016-05-07] MEDS: CHLORHEXIDINE GLUCONATE 2 % 1 PACK (2 CLOTHS) TOP SCH (04:11)
[2016-05-07 04:12] LABS: AUTOMATED NEUTROPHIL # 21.5 TH/MM3 (1.8-7.7); BASOPHIL # 0.2 TH/MM3 (0-0.2); BASOPHIL % 0.8 % (0.0-2.0); EOSINOPHIL # 0.3 TH/MM3 (0-0.4); EOSINOPHIL % 0.9 % (0.0-4.0); HEMATOCRIT 23.8 % (39.0-51.0); MEAN CELL VOLUME 78.2 FL (80.0-100.0); MEAN CORPUSCULAR HEMOGLOBIN 25.6 PG (27.0-34.0); MEAN CORPUSCULAR HGB CONC 32.7 % (32.0-36.0); MONO % 9.7 % (0.0-8.0); NEUT % 74.6 % (16.0-70.0); PLATELET COUNT 330 TH/MM3 (150-450); RED BLOOD COUNT 3.04 MIL/MM3 (4.50-5.90); RED CELL DISTRIBUTION WIDTH 17.5 % (11.6-17.2); WHITE BLOOD COUNT 28.8 TH/MM3 (4.0-11.0)
[2016-05-07 04:30] LABS: ALT (GPT) 13 U/L (12-78); ANION GAP 13 MEQ/L (5-15); AST (GOT) 27 U/L (15-37); BICARBONATE 25.6 MEQ/L (21.0-32.0); BLOOD UREA NITROGEN 56 MG/DL (7-18); CHLORIDE 98 MEQ/L (98-107); GLOMERULAR FILTRATION RATE 18 ML/MIN (>89); POTASSIUM 3.4 MEQ/L (3.5-5.1); SODIUM (NA) 137 MEQ/L (136-145)
[2016-05-07 04:32] LABS: ALKALINE PHOSPHATASE 172 U/L (45-117)
[2016-05-07 04:33] LABS: HEMO FLAGS AUTO DIFF
--- NOTE | 2016-05-07 06:01 | RADRPT ---
EXAM DATE/TIME: 05/07/2016 05:03 [place] COMPARISON: ABDOMEN KUB ONLY, April 30, 2016, 5:12. INDICATIONS : Evaluate Dobhoff Placement. MEDICAL HISTORY : Hypertension. Congestive heart failure. SURGICAL HISTORY : None. ENCOUNTER: Subsequent ACUITY: 4 - 6 days PAIN SCORE: Non-responsive. LOCATION: Bilateral abdomen FINDINGS: Enteric tube in Dobbhoff catheter tubes are noted. The distal tip of both tubes overlie the stomach l ocation of the gastric body. There is mild colonic wall thickening of the transverse colon. Degenerat jong changes of the spine are seen. CONCLUSION: There are 2 tubes within the stomach. Jhonny Green MD on May 07, 2016 at 5:59 Board Certified Radiologist. This report was verified electronically.
[2016-05-07] MEDS: METOCLOPRAMIDE HCL 10 MG/2 ML VIAL IV PUSH SCH ×3 (06:02→20:48)
[2016-05-07] MEDS: HEPARIN SODIUM - SQ 10,000 UNITS/ML VIAL SQ SCH ×2 (07:38→15:19)
[2016-05-07] MEDS: AZTREONAM INJ 1,000 MG in SODIUM CHLORIDE 0.9% INJ 100 ML IV SCH ×2 (07:39→19:59)
[2016-05-07] MEDS: SODIUM CHLORIDE 0.9% FLUSH 5 ML FLUSH IV FLUSH SCH ×2 (07:40→20:48)
[2016-05-07] MEDS: PANTOPRAZOLE SODIUM 40 MG VIAL IV SCH (07:40)
[2016-05-07] MEDS: CHLORHEXIDINE 0.12% (ORAL KIT) 15 ML CUP MT SCH ×2 (07:40→20:48)
[2016-05-07] MEDS: ACETAMINOPHEN 650 MG/20.3 ML UDC PO PRN (08:42)
--- NOTE | 2016-05-07 09:01 | HHI.CCPN ---
Subjective Remarks/Hospital Course This is a 65-year-old male with history of COPD, strong alcohol abuse history, diabetes, questionable history of heart failure, coronary artery disease who initially presented to the emergency department 04/25 with abdominal pain and was found to have acute pancreatitis. He was noted to the hospital at that time. Over the subsequent 48 hours, he developed worsening hypoxia as well as an acute kidney injury. This was initially thought to be CHF exacerbation and volume overload. He was given diuretics without a good response. His creatinine has trended up to 6. Nephrology was consulted and are considering renal replacement therapy. Tonight throughout the night, the patient became more hypoxic and dyspneic with increasing oxygen requirement. He is transferred to the ICU for his acute hypoxic respiratory failure. The patient is nauseated and has vomited a few times. 04/28: Intubated for respiratory distress with hypoxemia, now with acceptable gas exchange. Tolerating dialysis, try to extubate shortly. 04/29: Abdomen much too distended for extubation. NG tube placed with Roman forceps. 04/30: Abdomen remains tensely distended. No peritoneal irritation. BS few. 05/01: Abdomen remains tensely distended. No peritoneal irritation. 05/02: Abdominal distention worse. Pain worse. Will get CT to look for perforation. 05/03: CT abdomen with rip-roaring inflammatory process involving the pancreas; much worse. Sputum with multiple organisms. Patient clinically more critically ill. 05/04: Will start TFs if OK with GI service. 05/05: Dobbhoff tube in stomach. Will try to advance to duodenum and avoid TPN if at all possible. 05/06: DHT not post-pyloric, will advance and get KUB in a.m. 05/07: Persistent low grade fever and leukocytosis. Ileus persists. Goal is to get intestinal motility restored, decompress abdomen, extubate, and transfer to son's area in [place] for long-term care. Objective Vital Signs Date Time Temp Pulse Resp B/P Pulse Ox O2 Delivery O2 Flow Rate FiO2 05/07/16 07:58 99 40 05/07/16 06:00 87 05/07/16 05:10 12 05/07/16 04:00 100.4 124/60 Intake and Output 05/06/16 05/06/16 05/07/16 08:00 16:00 00:00 Intake Total 489 ml 640 ml 518 ml Output Total 150 ml 180 ml 250 ml Balance 339 ml 460 ml 268 ml Result Diagram: 05/07/16 0355 05/07/16 0355 Imaging Critical care bedside ultrasound 04/27: Grossly preserved left ventricular function. Normal RV size and function. Small collapsible IVC which very strongly with respirations and is almost completely flat with inspiration. No pericardial effusion. Objective Remarks GENERAL: Middle-aged male, calm on moderate sedation HEENT: Normocephalic. Atraumatic. NECK: Supple, orally intubated. CHEST: Scattered rhonchi, decreased BS bases. Good ling air movement. Copious secretions persist. CARDIOVASCULAR: Tachycardia, irregular rhythm. No murmurs. No JVD. ABDOMEN: Tensely distended, firm, generally tender to palpation, Occasional BS. MUSCULOSKELETAL: Trace peripheral edema. Warm, well perfused. NEUROLOGICAL: Opens eyes to voice. Tracks with eyes. Follows commands all 4 extremities. A/P Assessment and Plan Plan by systems: Neurologic: Alcohol abuse Metabolic encephalopathy Propofol and fentanyl for goal RASS Goal RASS -1. Daily vacation - Start to lower sedation 05/05. - Needs minimal sedation Respiratory: Acute hypoxic respiratory failure ARDS COPD Low tidal volume ventilation turning 6 cc/kg ideal body weight Vent bundle Head of bed at 30 Wean FiO2 for goal SPO2 greater than 90% Nebs every 6 and every 2 when necessary -Acceptable gas exchange. Abdomen much too distended to allow comfortable unassisted ventilation. -Consider trach to facilitate pulmonary toilet and mobilization. Cardiovascular: Sinus tachycardia SIRS response Continue telemetry SIRS likely 2/2 acute pancreatitis Renal: Acute kidney injury Likely has a component of prerenal, but also likely from acute pancreatitis We'll place Hardin with urometer. Every hour urine outputs -- Strict I/Os -Continue HD. FEN/GI: Severe intravascular volume depletion Severe acute pancreatitis Severe hypocalcemia Metabolic acidosis Strict nothing by mouth Place OG tube to wall suction Daily BMP, CBC Heme/ID: Leukocytosis Likely reactive secondary to acute pancreatitis I do not think he is infected at this point. Urine, sputum, blood cultures. ABX per ID service. Daily CBC ID - Leukocytosis with shift. Dr. Hercules ID service advising. Sputum 05/01 - Klebsiella, E. coli, Staph MSSA Endocrine: Diabetes -- SSI, medium scale, every 6 hours Prophylaxis: GI Prophylaxis Protonix 40 mg IV daily 24 hours DVT Prophylaxis -- SCDs Heparin 5000 every 12h Lines: 04/27 left radial arterial line 04/27 left subclavian triple-lumen catheter Hardin I have had lengthy discussions with his son at the bedside about the severity of his illness and poor prognosis. Overall impression: Marked abdominal distention persists with obstructive sounds and tenderness. Tolerates SBT but won't ventilate with severe abdominal distention. Enteral nutrition to start when DHT post-pyloric. Will change out central line in anticipation of requiring TPN. Adithya Paulson MD May 07, 2016 09:01
[2016-05-07 09:30] LABS: BANDS 5 % (0-6); CORRECTED NUCLEATED RBC 1 /100 WBC (0-0); EOSINOPHILS 2 % (0-4); METAMYELOCYTES 1 % (0-1); MYELOCYTES 2 % (0-0); NEUTROPHIL # MANUAL DIFF 25.3 TH/MM3 (1.8-7.7); POLYS (SEG NEUTROPHILS) 80 % (16-70); WBC DIFF SAMPLE 100
[2016-05-07 09:31] LABS: PLATELET ESTIMATE SMEAR NORMAL (NORMAL); PLATELET MORPHOLOGY NORMAL (NORMAL); SCAN/DIFF FINAL DIFF MANUAL; TARGET CELLS 2+ (NORMAL)
[2016-05-07] MEDS: LEVOFLOXACIN 500 MG PREMIX INJ 100 ML IV SCH ×2 (12:00→14:16)
--- NOTE | 2016-05-07 13:06 | HHI.IDPN ---
Subjective Subjective Remarks ID COVERAGE Notes reviewed Still with fevers Having HD On levophed still, was off earlier, restarted again On CPAP Opens eyes when stimulated WBC elevated is a 65 y/o AAM with PMHx of COPD, CAD/CHF, DM, heavy alcohol abuse , Hepatitis C, pancreatitis in past. ID following for possible sepsis, acute pancreatitis and pneumonia. Antibiotics Azactam IV flagyl diflucan Lines Line sites with no e/o infection Past Medical History reviewed Allergies: Coded Allergies: Penicillin (Verified Allergy, Severe, HIVES, 04/24/16) Objective . Vital Signs Date Time Temp Pulse Resp B/P Pulse Ox O2 Delivery O2 Flow Rate FiO2 05/07/16 12:10 100 40 05/07/16 10:00 84 05/07/16 08:00 40 05/07/16 08:00 101.2 87 12 110/64 99 05/07/16 08:00 87 05/07/16 07:58 99 40 05/07/16 06:00 87 05/07/16 05:10 12 05/07/16 04:28 96 40 05/07/16 04:00 100.4 84 13 124/60 97 05/07/16 04:00 84 05/07/16 04:00 40 05/07/16 02:00 81 05/07/16 01:21 99 40 05/07/16 00:00 94 05/07/16 00:00 100.9 94 12 97/52 99 05/07/16 00:00 40 05/06/16 22:00 87 05/06/16 20:20 99 40 05/06/16 20:00 40 05/06/16 20:00 100.4 87 13 100/72 99 05/06/16 20:00 80 05/06/16 18:00 92 05/06/16 16:56 99 40 05/06/16 16:00 100.6 85 15 98/57 99 05/06/16 16:00 40 05/06/16 16:00 85 05/06/16 14:00 88 05/06/16 05/06/16 05/07/16 15:00 23:00 07:00 Intake Total 590 ml 568 ml 291 ml Output Total 180 ml 250 ml 250 ml Balance 410 ml 318 ml 41 ml IV Total 430 ml 458 ml 291 ml Other 160 ml 110 ml Output Urine Total 155 ml 200 ml 250 ml Gastric Drainage Total 25 ml 50 ml 0 ml Bladder Scan Volume Amount 7 ml # Bowel Movements 0 0 1 . Laboratory Tests Test 05/07/16 03:55 White Blood Count 28.8 TH/MM3 Red Blood Count 3.04 MIL/MM3 Hemoglobin 7.8 GM/DL Hematocrit 23.8 % Mean Corpuscular Volume 78.2 FL Mean Corpuscular Hemoglobin 25.6 PG Mean Corpuscular Hemoglobin 32.7 % Concent Red Cell Distribution Width 17.5 % Platelet Count 330 TH/MM3 Mean Platelet Volume 9.7 FL Neutrophils (%) (Auto) 74.6 % Lymphocytes (%) (Auto) 14.0 % Monocytes (%) (Auto) 9.7 % Eosinophils (%) (Auto) 0.9 % Basophils (%) (Auto) 0.8 % Neutrophils # (Auto) 21.5 TH/MM3 Lymphocytes # (Auto) 4.0 TH/MM3 Monocytes # (Auto) 2.8 TH/MM3 Eosinophils # (Auto) 0.3 TH/MM3 Basophils # (Auto) 0.2 TH/MM3 CBC Comment AUTO DIFF Differential Total Cells 100 Counted Neutrophils % (Manual) 80 % Band Neutrophils % 5 % Lymphocytes % 5 % Monocytes % 5 % Eosinophils % 2 % Neutrophils # (Manual) 25.3 TH/MM3 Metamyelocytes 1 % Myelocytes 2 % Nucleated Red Blood Cells 1 /100 WBC Differential Comment FINAL DIFF MANUAL Platelet Estimate NORMAL Platelet Morphology Comment NORMAL Target Cells 2+ Laboratory Tests Test 05/07/16 03:55 Sodium Level 137 MEQ/L Potassium Level 3.4 MEQ/L Chloride Level 98 MEQ/L Carbon Dioxide Level 25.6 MEQ/L Anion Gap 13 MEQ/L Blood Urea Nitrogen 56 MG/DL Creatinine 4.13 MG/DL Estimat Glomerular Filtration 18 ML/MIN Rate Random Glucose 103 MG/DL Lactic Acid Level 0.7 mmol/L Calcium Level 9.2 MG/DL Total Bilirubin 1.0 MG/DL Aspartate Amino Transf 27 U/L (AST/SGOT) Alanine Aminotransferase 13 U/L (ALT/SGPT) Alkaline Phosphatase 172 U/L Total Protein 6.0 GM/DL Albumin 2.3 GM/DL Imaging Abdomen X-Ray 05/07/16 0400 Signed Impressions: Service Date/Time: Saturday, May 07, 2016 05:03 - CONCLUSION: There are 2 tubes within the stomach. Jhonny Green MD Tube Placement X-Ray 05/05/16 0000 Signed Impressions: Service Date/Time: April 16:20 - CONCLUSION: Fluoroscopically guided nasogastric tube repositioning as above. Attempts were discontinued after multiple attempts with the tubing seen coiling within the patient's mouth region and proximal esophagus. Tessa Nichole MD Abdomen X-Ray 05/05/16 0000 Signed Impressions: Service Date/Time: April 13:42 - CONCLUSION: No evidence of obstruction. Stable placement of Dobbhoff tube and nasogastric tube. Tessa Nichole MD Abdomen/Pelvis CT 05/02/16 0000 Signed Impressions: Service Date/Time: Monday, May 02, 2016 15:43 - CONCLUSION: 1. The exam demonstrates extensive inflammatory change around the pancreas with fluid extending down into the paracolic gutters consistent with severe pancreatitis. This has significantly worsened when compared to previous dated 04/24/16. No organized pseudocyst is present. 2. NG tube and Hardin in good position. Seng Rollins MD Abdomen X-Ray 04/30/16 0000 Signed Impressions: Service Date/Time: Saturday, April 30, 2016 05:12 - CONCLUSION: No dilated loops of small bowel. Stable dilated transverse colon. Hubert Garcia MD Chest X-Ray 04/27/16 0000 Signed Impressions: Service Date/Time: Wednesday, April 27, 2016 10:28 - CONCLUSION: 1. Dialysis catheter in good position. 2. Increasing bibasilar parenchymal changes worse on the left. Kermit Rollins MD FACR Renal Ultrasound 04/25/16 0000 Signed Impressions: Service Date/Time: Monday, April 25, 2016 15:01 - CONCLUSION: No evidence of hydronephrosis. Tom Seals MD Physical Exam GENERAL: Opens eyes, on the vent, on CPAP, NAD SKIN: No rashes. Warm, improving edema HEAD: Atraumatic. Normocephalic. No temporal or scalp tenderness. EYES: Pupils equal round and reactive. No injection or drainage. ENT: Intubated. NECK: Trachea midline. Supple, nontender, no meningeal signs. Left-sided central line with no evidence of infection. CARDIOVASCULAR: Heart sounds audible. RESPIRATORY: Clear to auscultation. Breath sounds equal bilaterally with decrease in the bases. GASTROINTESTINAL: Abdomen distended, tenderness diffusely,, hypoactive bowel sounds. MUSCULOSKELETAL: Extremities without clubbing, cyanosis. Pedal edema noted, improving. NEUROLOGICAL: Sedated. Opens eyes Psych could not be assessed IV line sites with no evidence of infection. Assessment & Plan Remarks Possible sepsis (source: likely intra abdominal and aspiration/Health care associated pneumonia. Reviewed other sources: CL and HD cath, Cath associated UTI. Severe acute pancreatitis as most likely cause of new SIRS. No pseudocyst no evidence of any abscess. - last CT worse Persistent fevers Acute resp failure on vent. Acute renal failure on Hemodialysis. Alcoholism Recs: Continue Azactam IV pt tolerating doses (noted PCN allergy as hives) Continue Levaquin IV Continue Flagyl oral (will help reduce fluid issues if tolerated) Continue Diflucan IV (for fungal intra abd sepsis/peritonitis) Repeat BC and sputum C/S CXR For line change today If any change in condition overnight please call me or broaden coverage to Meropenem + Micafungin +- Zyvox (given PNA would like to avoid Dapto) Follow cultures Monitor progress Monitor temtari D/W Melanie Velez MD May 07, 2016 13:06
--- NOTE | 2016-05-07 13:06 | HHI.NPPN ---
Subjective History of Present Illness 65 year old with Acute pancreatitis, ARF, Respiratory distress, now intubated on hemodialysis Additional Remarks Patient intubated, seen during dialysis. On 3K, UF goal is 3 liters, BFR is 330 ml/min. Left IJ Vascath being used. Objective Data Data 05/06/16 05/07/16 19:00 07:00 Intake Total 700 ml 749 ml Output Total 180 ml 500 ml Balance 520 ml 249 ml IV Total 430 ml 749 ml Other 270 ml Output Urine Total 155 ml 450 ml Gastric Drainage Total 25 ml 50 ml Bladder Scan Volume Amount 7 ml # Bowel Movements 0 1 Vital Signs Date Time Temp Pulse Resp B/P Pulse Ox O2 Delivery O2 Flow Rate FiO2 05/07/16 12:10 100 40 05/07/16 10:00 84 05/07/16 08:00 40 05/07/16 08:00 101.2 87 12 110/64 99 05/07/16 08:00 87 05/07/16 07:58 99 40 05/07/16 06:00 87 05/07/16 05:10 12 05/07/16 04:28 96 40 05/07/16 04:00 100.4 84 13 124/60 97 05/07/16 04:00 84 05/07/16 04:00 40 05/07/16 02:00 81 05/07/16 01:21 99 40 05/07/16 00:00 94 05/07/16 00:00 100.9 94 12 97/52 99 05/07/16 00:00 40 05/06/16 22:00 87 05/06/16 20:20 99 40 05/06/16 20:00 40 05/06/16 20:00 100.4 87 13 100/72 99 05/06/16 20:00 80 05/06/16 18:00 92 05/06/16 16:56 99 40 05/06/16 16:00 100.6 85 15 98/57 99 05/06/16 16:00 40 05/06/16 16:00 85 05/06/16 14:00 88 -: 05/07/16 0355 05/07/16 0355 Physical Exam General Appearance: Well Developed Neck Neck Exam: Neck Supple Pulmonary Resp Exam: Decreased Bases Cardiology CV Exam: Tachycardia Gastrointestinal/Abdomen GI Exam: Distended Integumentary Skin Exam: Dry, Intact Extremeties Extremities Exam: Moderate Edema Assessment/Plan Problem List: (1) Acute renal failure Plan: Patient has renal failure likely due to complications of pancreatitis and developed acute tubular necrosis now on hemodialysis with minimal UOP. Dialysis today. Orders reviewed. Seen during dialysis. Repeat potassium later today. (2) Pancreatitis Plan: Severe pancreatitis with acute renal failure. Abdomen is distended. Has developed ileus. (3) Abdominal pain Plan: Distention due to pancreatitis (4) COPD exacerbation Plan: Continue treatment, on vent Problem Qualifiers (1) Acute renal failure: Qualified Code: N17.0 - Acute renal failure with tubular necrosis (2) Pancreatitis: Qualified Code: K85.20 - Alcohol-induced acute pancreatitis, unspecified complication status (3) Abdominal pain: Qualified Code: R10.12 - Left upper quadrant pain Dave Hernandez MD May 07, 2016 13:06
[2016-05-07 13:59] LABS: BASOPHIL # 0.3 TH/MM3 (0-0.2); BASOPHIL % 0.9 % (0.0-2.0); EOSINOPHIL # 0.4 TH/MM3 (0-0.4); EOSINOPHIL % 1.2 % (0.0-4.0); HEMATOCRIT 27.1 % (39.0-51.0); LYMPH % 10.7 % (9.0-44.0); LYMPHOCYTE # 3.9 TH/MM3 (1.0-4.8); MEAN CELL VOLUME 78.2 FL (80.0-100.0); MEAN CORPUSCULAR HEMOGLOBIN 25.5 PG (27.0-34.0); MEAN CORPUSCULAR HGB CONC 32.6 % (32.0-36.0); MONO % 5.3 % (0.0-8.0); NEUT % 81.9 % (16.0-70.0); PLATELET COUNT 368 TH/MM3 (150-450); RED BLOOD COUNT 3.47 MIL/MM3 (4.50-5.90); RED CELL DISTRIBUTION WIDTH 17.8 % (11.6-17.2); WHITE BLOOD COUNT 36.6 TH/MM3 (4.0-11.0)
[2016-05-07 14:01] LABS: HEMO FLAGS AUTO DIFF
[2016-05-07 14:05] LABS: INTERNATIONAL NORMALIZED RATIO 1.1 RATIO; PROTHROMBIN TIME - PATIENT 11.9 SEC (9.8-11.6)
[2016-05-07] MEDS: EPOETIN ALFA 10,000 UNITS/ML VIAL IV PRN (14:20)
[2016-05-07] MEDS: HEPARIN SODIUM - IV 10,000 UNITS/10 ML VIAL PRN (14:20)
[2016-05-07] MEDS: GENTAMICIN SULFATE (DIALYSIS USE ONLY) 20 MG/2 ML VIAL IV PRN (14:20)
[2016-05-07 14:36] LABS: BANDS 10 % (0-6); METAMYELOCYTES 2 % (0-1); MYELOCYTES 2 % (0-0); NEUTROPHIL # MANUAL DIFF 31.5 TH/MM3 (1.8-7.7); POLYS (SEG NEUTROPHILS) 72 % (16-70); WBC DIFF SAMPLE 100
[2016-05-07 14:37] LABS: TARGET CELLS 3+ (NORMAL)
[2016-05-07 14:38] LABS: DOHLE BODIES PRESENT (NONE SEEN); PLATELET ESTIMATE SMEAR NORMAL (NORMAL); PLATELET MORPHOLOGY NORMAL (NORMAL); SCAN/DIFF FINAL DIFF MANUAL
--- NOTE | 2016-05-07 15:02 | HHI.GIFU ---
GI Follow-up Note Consult Follow-up Subjective: Patient laying in bed, intubated, had 2 loose bowel movements today , still distended but soft . Febrile, wbc increased, central line will be changed shortly Objective: PHYSICAL EXAMINATION: Vitals signs stable No fever Vital Signs Date Time Temp Pulse Resp B/P Pulse Ox O2 Delivery O2 Flow Rate FiO2 05/07/16 12:10 100 40 05/07/16 12:00 98.9 81 10 80/50 100 05/07/16 12:00 40 05/07/16 10:00 84 05/07/16 08:00 40 05/07/16 08:00 101.2 87 12 110/64 99 05/07/16 08:00 87 05/07/16 07:58 99 40 HEENT: Pupils round and reactive to light; normocephalic; atraumatic; no jaundice. Throat is clear. NECK: Neck is supple, no JVD, no lymphadenopathy. CHEST: Chest is clear to auscultation and percussion. CARDIAC: Regular rate and rhythm with no murmur gallop or rubs. ABDOMEN: Soft, distended, nontender; no hepatosplenomegaly; bowel sounds are present in all four quadrants. EXTREMITIES: No clubbing, cyanosis, or edema. SKIN: Normal; no rash; no jaundice. 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 Available Data (labs, X- Rays, Procedues) : Laboratory Tests Test 05/07/16 05/07/16 03:55 13:42 White Blood Count 28.8 TH/MM3 36.6 TH/MM3 Red Blood Count 3.04 MIL/MM3 3.47 MIL/MM3 Hemoglobin 7.8 GM/DL 8.8 GM/DL Hematocrit 23.8 % 27.1 % Mean Corpuscular Volume 78.2 FL 78.2 FL Mean Corpuscular Hemoglobin 25.6 PG 25.5 PG Mean Corpuscular Hemoglobin 32.7 % 32.6 % Concent Red Cell Distribution Width 17.5 % 17.8 % Platelet Count 330 TH/MM3 368 TH/MM3 Mean Platelet Volume 9.7 FL 9.4 FL Neutrophils (%) (Auto) 74.6 % 81.9 % Lymphocytes (%) (Auto) 14.0 % 10.7 % Monocytes (%) (Auto) 9.7 % 5.3 % Eosinophils (%) (Auto) 0.9 % 1.2 % Basophils (%) (Auto) 0.8 % 0.9 % Neutrophils # (Auto) 21.5 TH/MM3 30.0 TH/MM3 Lymphocytes # (Auto) 4.0 TH/MM3 3.9 TH/MM3 Monocytes # (Auto) 2.8 TH/MM3 1.9 TH/MM3 Eosinophils # (Auto) 0.3 TH/MM3 0.4 TH/MM3 Basophils # (Auto) 0.2 TH/MM3 0.3 TH/MM3 CBC Comment AUTO DIFF AUTO DIFF Differential Total Cells 100 100 Counted Neutrophils % (Manual) 80 % 72 % Band Neutrophils % 5 % 10 % Lymphocytes % 5 % 7 % Monocytes % 5 % 7 % Eosinophils % 2 % Neutrophils # (Manual) 25.3 TH/MM3 31.5 TH/MM3 Metamyelocytes 1 % 2 % Myelocytes 2 % 2 % Nucleated Red Blood Cells 1 /100 WBC Differential Comment FINAL DIFF FINAL DIFF MANUAL MANUAL Platelet Estimate NORMAL NORMAL Platelet Morphology Comment NORMAL NORMAL Target Cells 2+ 3+ Sodium Level 137 MEQ/L Potassium Level 3.4 MEQ/L Chloride Level 98 MEQ/L Carbon Dioxide Level 25.6 MEQ/L Anion Gap 13 MEQ/L Blood Urea Nitrogen 56 MG/DL Creatinine 4.13 MG/DL Estimat Glomerular Filtration 18 ML/MIN Rate Random Glucose 103 MG/DL Lactic Acid Level 0.7 mmol/L Calcium Level 9.2 MG/DL Total Bilirubin 1.0 MG/DL Aspartate Amino Transf 27 U/L (AST/SGOT) Alanine Aminotransferase 13 U/L (ALT/SGPT) Alkaline Phosphatase 172 U/L Total Protein 6.0 GM/DL Albumin 2.3 GM/DL Dohle Bodies PRESENT Prothrombin Time 11.9 SEC Prothromb Time International 1.1 RATIO Ratio ASSESSMENT/PLAN: severe pancreatis secondary etoh ileus increased wbc-etiology unclear we will repeat ct Recommendations stool c diff ct abdomen/pelvis tpn agree with change of central line supportive care It was a pleasure seeing Julian Marti. Thank you for this consult. Entered by: Meghan Ham MD May 07, 2016 15:02
[2016-05-07] MEDS ORDERED: DIATRIZOATE MEGLUM/DIATRIZOATE SOD 9 ML CUP PO ONE (15:15)
[2016-05-07] MEDS: NOREPINEPHRINE 4 MG/D5W 250 ML IV SCH (15:45)
[2016-05-07] MEDS: FLUCONAZOLE 200 MG PREMIX BAG 100 ML IV SCH (16:42)
[2016-05-07 17:21] LABS: ANION GAP 11 MEQ/L (5-15); AST (GOT) 25 U/L (15-37); BICARBONATE 26.3 MEQ/L (21.0-32.0); BLOOD UREA NITROGEN 37 MG/DL (7-18); CHLORIDE 96 MEQ/L (98-107); GLOMERULAR FILTRATION RATE 25 ML/MIN (>89); MAGNESIUM 1.5 MG/DL (1.5-2.5); POTASSIUM 3.2 MEQ/L (3.5-5.1); SODIUM (NA) 133 MEQ/L (136-145)
[2016-05-07 17:24] LABS: ALKALINE PHOSPHATASE 92 U/L (45-117); ALT (GPT) 11 U/L (12-78); TOTAL BILIRUBIN ADULT 1.2 MG/DL (0.2-1.0)
--- NOTE | 2016-05-07 18:03 | PD.PROCEDR ---
Procedure Note Procedure DX: NATALY (N17.9) OP: Insertion Right Subclavian Central Venous Line ([id number] Procedure: Right chest prepped and draped. Right subclavian vein cannulated and wire easily advanced. Catheter passed over wire to 18 cm. Lumens aspirated and flushed. Dressing applied. CXR ordered, will review. Adithya Paulson MD May 07, 2016 18:03
--- NOTE | 2016-05-07 18:50 | RADRPT ---
EXAM DATE/TIME: 05/07/2016 18:18 [facility] COMPARISON: CHEST SINGLE AP, April 27, 2016, 10:28. INDICATIONS : Evaluate for central line placement. MEDICAL HISTORY : Hypertension. Congestive heart failure. SURGICAL HISTORY : None. ENCOUNTER: Subsequent ACUITY: 1 day PAIN SCORE: Non-responsive. LOCATION: chest FINDINGS: Endotracheal tube tip is 1.7 cm above the saundra. Interval placement of right subclavian line with t he catheter tip projecting at the origin of the superior vena cava. No evidence of pneumothorax. 2 central lines on the left side are similar in position when compared to prior. Interval placement of a gastric tube which traverses the [id number]. There is persistent dense consolidation in the le ft lower lobe with loss of delineation of the entire left hemidiaphragm there are patchy infiltrates in the mid lungs bilaterally. CONCLUSION: Right subclavian catheter tip projects at the origin of the superior vena cava. No evidence of pneum othorax. Persistent consolidation left lower lobe. The ET tube is now 1.7 cm above the saundra and c ould be withdrawn 1 cm. Hubert Garcia MD on May 07, 2016 at 18:47 Board Certified Radiologist. This report was verified electronically.
[2016-05-07] MEDS: fentaNYL DRIP 250 ML IV SCH (18:54)
[2016-05-07] MEDS ORDERED: CLINIMIX 4.25/25 (Cust.Renal Central) 2000 mL- >42 mls/hr IV-CENTRAL SCH ×8 (20:00)
--- NOTE | 2016-05-07 20:33 | RADRPT ---
EXAM DATE/TIME: 05/07/2016 20:15 [facility] COMPARISON: CT ABDOMEN & PELVIS W/O CONTRAST, May 02, 2016, 15:43. INDICATIONS : Abdominal pain; possible pancreatitis. ORAL CONTRAST: No oral contrast ingested. RADIATION DOSE: 9.36 CTDIvol (mGy) MEDICAL HISTORY : Cerebrovascular disease. Congestive heart failure. Seizures.Hypertension, Diabetes, GERD SURGICAL HISTORY : None. ENCOUNTER: Initial ACUITY: 2 weeks PAIN SCALE: Non-responsive LOCATION: abdomen TECHNIQUE: Volumetric scanning of the abdomen and pelvis was performed. Using automated exposure control and ad justment of the mA and/or kV according to patient size, radiation dose was kept as low as reasonably achievable to obtain optimal diagnostic quality images. FINDINGS: Mild increase in size of left pleural effusion and decrease in size of right pleural effusion. There are some patchy areas of infiltrate in the anterior right lower lung which is a new finding when com pared to prior CT. Gastric tube tip in the antrum of the stomach. There is extensive induration and soft tissue extendi ng out of the anterior pararenal space into the mid abdomen and there is fluid tracking down the righ t paracolic gutter. The margins of the pancreas are not well seen due to the surrounding large area of inflammation. The severity and appearance of these inflammatory changes is unchanged from prior e xamination. There is a string-like appearance to the right colon as it courses through the inflammat ory area, unchanged from prior examination. No drainable fluid collection seen. No pseudocyst formation. Oral contrast passes through to the re ctum. No dilated loops of small bowel. The kidneys are symmetric in appearance. No evidence of hyd ronephrosis. The abdominal aorta is normal in diameter. Hardin catheter present within the urinary b ladder. CONCLUSION: Stable severe inflammatory change in the upper abdomen obscuring the pancreas, characteristic of fanny re pancreatitis. There is also fluid tracking down the right paracolic gutter. Overall, the appeara nce and severity is unchanged from 05/02/16. Hubert Garcia MD on May 07, 2016 at 20:28 Board Certified Radiologist. This report was verified electronically.
[2016-05-07] MEDS: CLINIMIX 4.25/25 (Cust.Renal Central) 1000 mL- </= 42 mls/hr IV-CENTRAL SCH ×8 (20:47)
[2016-05-08] VITALS (19 sets, daily range): BP systolic 98–128; BP diastolic 51–59; PULSE 70–88; RESP 15–22; TEMP 99.5–101.8; O2SAT 97–100
[2016-05-08] MEDS: HEPARIN SODIUM - SQ 10,000 UNITS/ML VIAL SQ SCH ×3 (00:02→16:13)
[2016-05-08] MEDS: oxyCODONE HCL ORAL CONC 20 MG/ML SYRINGE PO SCH ×6 (00:02→19:28)
[2016-05-08] MEDS: PROPOFOL 1000 MG/100 ML INJ 100 ML IV SCH ×4 (01:23→16:49)
[2016-05-08] MEDS: metroNIDAZOLE 500 MG TAB PO/NG SCH ×3 (02:13→16:47)
[2016-05-08] MEDS: CHLORHEXIDINE GLUCONATE 2 % 1 PACK (2 CLOTHS) TOP SCH (03:51)
[2016-05-08 04:01] LABS: AUTOMATED NEUTROPHIL # 18.3 TH/MM3 (1.8-7.7); BASOPHIL # 0.1 TH/MM3 (0-0.2); BASOPHIL % 0.6 % (0.0-2.0); EOSINOPHIL # 0.5 TH/MM3 (0-0.4); EOSINOPHIL % 2.3 % (0.0-4.0); HEMATOCRIT 21.9 % (39.0-51.0); LYMPH % 8.4 % (9.0-44.0); MEAN CELL VOLUME 77.5 FL (80.0-100.0); MEAN CORPUSCULAR HGB CONC 33.5 % (32.0-36.0); MONO % 10.3 % (0.0-8.0); NEUT % 78.4 % (16.0-70.0); PLATELET COUNT 325 TH/MM3 (150-450); RED BLOOD COUNT 2.83 MIL/MM3 (4.50-5.90); RED CELL DISTRIBUTION WIDTH 17.3 % (11.6-17.2); WHITE BLOOD COUNT 23.4 TH/MM3 (4.0-11.0)
[2016-05-08 04:06] LABS: HEMO FLAGS AUTO DIFF
[2016-05-08 04:34] LABS: BICARBONATE 28.2 MEQ/L (21.0-32.0); POTASSIUM 3.1 MEQ/L (3.5-5.1)
[2016-05-08] MEDS: METOCLOPRAMIDE HCL 10 MG/2 ML VIAL IV PUSH SCH ×3 (05:20→22:00)
--- NOTE | 2016-05-08 06:07 | RADRPT ---
EXAM DATE/TIME: 05/08/2016 05:13 [facility] COMPARISON: CHEST SINGLE AP, May 07, 2016, 18:18. INDICATIONS : Shortness of breath, possible pulmonary disease. MEDICAL HISTORY : Hypertension. Congestive heart failure. SURGICAL HISTORY : None. ENCOUNTER: Subsequent ACUITY: 1 week PAIN SCORE: Non-responsive. LOCATION: Bilateral chest FINDINGS: There is patchy bilateral airspace disease greatest in the left lower lobe and mild atelectasis. Left jugular central venous catheters and right subclavian central venous catheter again noted. Endotrach eal tube tip terminates 1.5 cm above the saundra. CONCLUSION: No significant change has occurred. Jhonny Green MD on May 08, 2016 at 6:04 Board Certified Radiologist. This report was verified electronically.
[2016-05-08 06:21] LABS: OVALOCYTES 1+ (NORMAL); TARGET CELLS 3+ (NORMAL)
[2016-05-08 06:22] LABS: SCAN/DIFF AUTO DIFF CONFIRMED
[2016-05-08] MEDS: CHLORHEXIDINE 0.12% (ORAL KIT) 15 ML CUP MT SCH ×2 (07:42→19:28)
[2016-05-08] MEDS: SODIUM CHLORIDE 0.9% FLUSH 5 ML FLUSH IV FLUSH SCH ×2 (07:43→20:31)
[2016-05-08] MEDS: AZTREONAM INJ 1,000 MG in SODIUM CHLORIDE 0.9% INJ 100 ML IV SCH ×2 (07:48→19:28)
[2016-05-08] MEDS: NOREPINEPHRINE 4 MG/D5W 250 ML IV SCH (07:49)
[2016-05-08] MEDS: PANTOPRAZOLE SODIUM 40 MG VIAL IV SCH (07:49)
[2016-05-08] MEDS: ACETAMINOPHEN 650 MG/20.3 ML UDC PO PRN (07:49)
[2016-05-08 10:39] LABS: C. DIFF EPI 027 PRESUMPTIVE NEGATIVE (NEGATIVE); C. DIFF TOXIN PCR NEGATIVE (NEGATIVE)
--- NOTE | 2016-05-08 10:51 | HHI.CCPN ---
Subjective Remarks/Hospital Course This is a 65-year-old male with history of COPD, strong alcohol abuse history, diabetes, questionable history of heart failure, coronary artery disease who initially presented to the emergency department 04/25 with abdominal pain and was found to have acute pancreatitis. He was noted to the hospital at that time. Over the subsequent 48 hours, he developed worsening hypoxia as well as an acute kidney injury. This was initially thought to be CHF exacerbation and volume overload. He was given diuretics without a good response. His creatinine has trended up to 6. Nephrology was consulted and are considering renal replacement therapy. Tonight throughout the night, the patient became more hypoxic and dyspneic with increasing oxygen requirement. He is transferred to the ICU for his acute hypoxic respiratory failure. The patient is nauseated and has vomited a few times. 04/28: Intubated for respiratory distress with hypoxemia, now with acceptable gas exchange. Tolerating dialysis, try to extubate shortly. 04/29: Abdomen much too distended for extubation. NG tube placed with Roman forceps. 04/30: Abdomen remains tensely distended. No peritoneal irritation. BS few. 05/01: Abdomen remains tensely distended. No peritoneal irritation. 05/02: Abdominal distention worse. Pain worse. Will get CT to look for perforation. 05/03: CT abdomen with rip-roaring inflammatory process involving the pancreas; much worse. Sputum with multiple organisms. Patient clinically more critically ill. 05/04: Will start TFs if OK with GI service. 05/05: Dobbhoff tube in stomach. Will try to advance to duodenum and avoid TPN if at all possible. 05/06: DHT not post-pyloric, will advance and get KUB in a.m. 05/07: Persistent low grade fever and leukocytosis. Ileus persists. Goal is to get intestinal motility restored, decompress abdomen, extubate, and transfer to son's area in [place] for long-term care. 05/08: Remains sedated, arousable, orally intubated on mechanical ventilation. Objective Vital Signs Date Time Temp Pulse Resp B/P Pulse Ox O2 Delivery O2 Flow Rate FiO2 05/08/16 09:57 30 05/08/16 09:57 100 05/08/16 06:00 73 05/08/16 04:51 19 05/08/16 04:00 100.2 109/55 Intake and Output 05/07/16 05/07/16 05/08/16 08:00 16:00 00:00 Intake Total 291 ml 878 ml 1129 ml Output Total 250 ml 3250 ml 100 ml Balance 41 ml -2372 ml 1029 ml Result Diagram: 05/08/16 0340 05/08/16 0340 Imaging Critical care bedside ultrasound 04/27: Grossly preserved left ventricular function. Normal RV size and function. Small collapsible IVC which very strongly with respirations and is almost completely flat with inspiration. No pericardial effusion. Objective Remarks GENERAL: Middle-aged male, calm on moderate sedation HEENT: Normocephalic. Atraumatic. NECK: Supple, orally intubated. CHEST: On mechanical ventilation, Scattered rhonchi, decreased BS bases. Good ling air movement. Copious secretions persist. CARDIOVASCULAR: Tachycardia, irregular rhythm. No murmurs. No JVD. ABDOMEN: Tensely distended, firm, generally tender to palpation, Occasional BS. MUSCULOSKELETAL: Trace peripheral edema. Warm, well perfused. NEUROLOGICAL: Opens eyes to voice. Tracks with eyes. Follows commands all 4 extremities. A/P Assessment and Plan Plan by systems: Neurologic: Alcohol abuse Metabolic encephalopathy Propofol and fentanyl for goal RASS Goal RASS -1. Daily vacation - Start to lower sedation 05/05. - Needs minimal sedation Respiratory: Acute hypoxic respiratory failure ARDS COPD Low tidal volume ventilation turning 6 cc/kg ideal body weight Vent bundle Head of bed at 30 Wean FiO2 for goal SPO2 greater than 90% Nebs every 6 and every 2 when necessary -Acceptable gas exchange. Abdomen much too distended to allow comfortable unassisted ventilation. -Consider trach to facilitate pulmonary toilet and mobilization. Cardiovascular: Sinus tachycardia SIRS response Continue telemetry SIRS likely 2/2 acute pancreatitis Renal: Acute kidney injury Likely has a component of prerenal, but also likely from acute pancreatitis We'll place Hardin with urometer. Every hour urine outputs -- Strict I/Os -Continue HD. FEN/GI: Severe intravascular volume depletion Severe acute pancreatitis Severe hypocalcemia Metabolic acidosis Currently nothing by mouth. Dobbhoff tube placed however still in stomach. Would want Dobbhoff to be postpyloric to initiate tube feedings. TPN for nutrition started 05/07. OG tube to wall suction Daily BMP, CBC Heme/ID: Leukocytosis Likely reactive secondary to acute pancreatitis Awaiting stool for C. difficile Urine, sputum, blood cultures. ABX per ID service. Daily CBC ID - Leukocytosis with shift. Dr. Hercules ID service advising. Sputum 05/01 - Klebsiella, E. coli, Staph MSSA Endocrine: Diabetes -- SSI, medium scale, every 6 hours Prophylaxis: GI Prophylaxis Protonix 40 mg IV daily 24 hours DVT Prophylaxis -- SCDs Heparin 5000 every 12h Lines: 04/27 left radial arterial line 04/27 left subclavian triple-lumen catheter - to be discontinued. New central line placed right subclavian 05/07. Wilfred Paulson had lengthy discussions with patient's son at bedside about the severity of his illness and poor prognosis. Overall impression: Marked abdominal distention persists with obstructive sounds and tenderness. Tolerates SBT but won't ventilate with severe abdominal distention. Enteral nutrition to start when DHT post-pyloric. New central line placed 05/07 in anticipation of requiring TPN. Time spent on critical care excluding procedures 40 minutes Jorge Hercules MD May 08, 2016 10:51
--- NOTE | 2016-05-08 11:07 | HHI.NPPN ---
Subjective History of Present Illness 65 year old with Acute pancreatitis, ARF, Respiratory distress, now intubated on hemodialysis Additional Remarks Underwent dialysis yesterday. Continues to have abdominal distension. Objective Data Data 05/07/16 05/08/16 19:00 07:00 Intake Total 1378 ml 1424 ml Output Total 3250 ml 410 ml Balance -1872 ml 1014 ml IV Total 288 ml 938 ml TPN/PPN 346 ml Other 1090 ml 140 ml Output Urine Total 175 ml 350 ml Gastric Drainage Total 75 ml 60 ml Hemodialysis 3000 ml # Bowel Movements 1 0 Vital Signs Date Time Temp Pulse Resp B/P Pulse Ox O2 Delivery O2 Flow Rate FiO2 05/08/16 09:57 30 05/08/16 09:57 100 30 05/08/16 09:47 98 30 05/08/16 06:00 73 05/08/16 04:51 19 05/08/16 04:00 100.2 75 18 109/55 99 05/08/16 04:00 76 05/08/16 04:00 98 30 05/08/16 04:00 40 05/08/16 02:00 70 05/08/16 00:06 99 30 05/08/16 00:00 99.5 75 17 98/57 100 05/08/16 00:00 40 05/08/16 00:00 75 05/07/16 22:00 70 05/07/16 22:00 40 05/07/16 22:00 99.0 84 16 112/56 100 05/07/16 20:32 100 30 05/07/16 20:30 100 100 05/07/16 20:00 86 05/07/16 18:00 78 05/07/16 17:26 100 40 05/07/16 16:00 40 05/07/16 16:00 86 05/07/16 16:00 99.2 86 27 108/60 100 05/07/16 14:00 82 05/07/16 12:10 100 40 05/07/16 12:00 98.9 81 10 80/50 100 05/07/16 12:00 81 05/07/16 12:00 40 -: 05/08/16 0340 05/08/16 0340 Microbiology 05/07/16 Aerobic Blood Culture, Received Pending 05/07/16 Anaerobic Blood Culture, Received Pending 05/07/16 Aerobic Blood Culture, Received Pending 05/07/16 Anaerobic Blood Culture, Received Pending 05/08/16 Gram Stain, Received Pending 05/08/16 Sputum Culture, Received Pending Physical Exam General Appearance: Well Developed Neck Neck Exam: Neck Supple Pulmonary Resp Exam: Decreased Bases Cardiology CV Exam: Tachycardia Gastrointestinal/Abdomen GI Exam: Distended Integumentary Skin Exam: Dry, Intact Extremeties Extremities Exam: Moderate Edema Assessment/Plan Problem List: (1) Acute renal failure Plan: Patient has renal failure likely due to complications of pancreatitis and developed acute tubular necrosis now on hemodialysis with minimal UOP. Dialysis support to be continued. Needs potassium replacement. (2) Pancreatitis Plan: Severe pancreatitis with acute renal failure. Abdomen is distended. Has developed ileus. (3) Abdominal pain Plan: Distention due to pancreatitis (4) COPD exacerbation Plan: Continue treatment, on vent Problem Qualifiers (1) Acute renal failure: Qualified Code: N17.0 - Acute renal failure with tubular necrosis (2) Pancreatitis: Qualified Code: K85.20 - Alcohol-induced acute pancreatitis, unspecified complication status (3) Abdominal pain: Qualified Code: R10.12 - Left upper quadrant pain Dave Hernandez MD May 08, 2016 11:07
--- NOTE | 2016-05-08 11:13 | HHI.IDPN ---
Subjective Subjective Remarks ID COVERAGE Notes reviewed Fevers not as frequent Has new central line RSC On the vent Opens eyes when stimulated WBC elevated, but better is a 65 y/o AAM with PMHx of COPD, CAD/CHF, DM, heavy alcohol abuse , Hepatitis C, pancreatitis in past. ID following for possible sepsis, acute pancreatitis and pneumonia. Antibiotics Azactam IV flagyl diflucan Lines Line sites with no e/o infection Past Medical History reviewed Allergies: Coded Allergies: Penicillin (Verified Allergy, Severe, HIVES, 04/24/16) Objective . Vital Signs Date Time Temp Pulse Resp B/P Pulse Ox O2 Delivery O2 Flow Rate FiO2 05/08/16 09:57 30 05/08/16 09:57 100 30 05/08/16 09:47 98 30 05/08/16 08:00 101.8 76 17 109/59 97 05/08/16 08:00 30 05/08/16 06:00 73 05/08/16 04:51 19 05/08/16 04:00 100.2 75 18 109/55 99 05/08/16 04:00 76 05/08/16 04:00 98 30 05/08/16 04:00 40 05/08/16 02:00 70 05/08/16 00:06 99 30 05/08/16 00:00 99.5 75 17 98/57 100 05/08/16 00:00 40 05/08/16 00:00 75 05/07/16 22:00 70 05/07/16 22:00 40 05/07/16 22:00 99.0 84 16 112/56 100 05/07/16 20:32 100 30 05/07/16 20:30 100 100 05/07/16 20:00 86 05/07/16 18:00 78 05/07/16 17:26 100 40 05/07/16 16:00 40 05/07/16 16:00 86 05/07/16 16:00 99.2 86 27 108/60 100 05/07/16 14:00 82 05/07/16 12:10 100 40 05/07/16 12:00 98.9 81 10 80/50 100 05/07/16 12:00 81 05/07/16 12:00 40 05/07/16 05/07/16 05/08/16 15:00 23:00 07:00 Intake Total 378 ml 1629 ml 795 ml Output Total 3250 ml 100 ml 310 ml Balance -2872 ml 1529 ml 485 ml IV Total 288 ml 539 ml 399 ml TPN/PPN 346 ml Other 90 ml 1090 ml 50 ml Output Urine Total 175 ml 100 ml 250 ml Gastric Drainage Total 75 ml 0 ml 60 ml Hemodialysis 3000 ml # Bowel Movements 1 0 . Laboratory Tests Test 05/07/16 05/07/16 05/08/16 03:55 13:42 03:40 White Blood Count 28.8 TH/MM3 36.6 TH/MM3 23.4 TH/MM3 Red Blood Count 3.04 MIL/MM3 3.47 MIL/MM3 2.83 MIL/MM3 Hemoglobin 7.8 GM/DL 8.8 GM/DL 7.4 GM/DL Hematocrit 23.8 % 27.1 % 21.9 % Mean Corpuscular Volume 78.2 FL 78.2 FL 77.5 FL Mean Corpuscular Hemoglobin 25.6 PG 25.5 PG 26.0 PG Mean Corpuscular Hemoglobin 32.7 % 32.6 % 33.5 % Concent Red Cell Distribution Width 17.5 % 17.8 % 17.3 % Platelet Count 330 TH/MM3 368 TH/MM3 325 TH/MM3 Mean Platelet Volume 9.7 FL 9.4 FL 9.6 FL Neutrophils (%) (Auto) 74.6 % 81.9 % 78.4 % Lymphocytes (%) (Auto) 14.0 % 10.7 % 8.4 % Monocytes (%) (Auto) 9.7 % 5.3 % 10.3 % Eosinophils (%) (Auto) 0.9 % 1.2 % 2.3 % Basophils (%) (Auto) 0.8 % 0.9 % 0.6 % Neutrophils # (Auto) 21.5 TH/MM3 30.0 TH/MM3 18.3 TH/MM3 Lymphocytes # (Auto) 4.0 TH/MM3 3.9 TH/MM3 2.0 TH/MM3 Monocytes # (Auto) 2.8 TH/MM3 1.9 TH/MM3 2.4 TH/MM3 Eosinophils # (Auto) 0.3 TH/MM3 0.4 TH/MM3 0.5 TH/MM3 Basophils # (Auto) 0.2 TH/MM3 0.3 TH/MM3 0.1 TH/MM3 CBC Comment AUTO DIFF AUTO DIFF AUTO DIFF Differential Total Cells 100 100 Counted Neutrophils % (Manual) 80 % 72 % Band Neutrophils % 5 % 10 % Lymphocytes % 5 % 7 % Monocytes % 5 % 7 % Eosinophils % 2 % Neutrophils # (Manual) 25.3 TH/MM3 31.5 TH/MM3 Metamyelocytes 1 % 2 % Myelocytes 2 % 2 % Nucleated Red Blood Cells 1 /100 WBC Differential Comment FINAL DIFF FINAL DIFF AUTO DIFF MANUAL MANUAL CONFIRMED Platelet Estimate NORMAL NORMAL Platelet Morphology Comment NORMAL NORMAL Target Cells 2+ 3+ 3+ Dohle Bodies PRESENT Ovalocytes 1+ Laboratory Tests Test 05/07/16 05/07/16 05/08/16 03:55 16:00 03:40 Sodium Level 137 MEQ/L 133 MEQ/L 138 MEQ/L Potassium Level 3.4 MEQ/L 3.2 MEQ/L 3.1 MEQ/L Chloride Level 98 MEQ/L 96 MEQ/L 99 MEQ/L Carbon Dioxide Level 25.6 MEQ/L 26.3 MEQ/L 28.2 MEQ/L Anion Gap 13 MEQ/L 11 MEQ/L 11 MEQ/L Blood Urea Nitrogen 56 MG/DL 37 MG/DL 49 MG/DL Creatinine 4.13 MG/DL 3.08 MG/DL 3.40 MG/DL Estimat Glomerular Filtration 18 ML/MIN 25 ML/MIN 22 ML/MIN Rate Random Glucose 103 MG/DL 279 MG/DL 170 MG/DL Lactic Acid Level 0.7 mmol/L 0.9 mmol/L Calcium Level 9.2 MG/DL 8.2 MG/DL 8.6 MG/DL Total Bilirubin 1.0 MG/DL 1.2 MG/DL Aspartate Amino Transf 27 U/L 25 U/L (AST/SGOT) Alanine Aminotransferase 13 U/L 11 U/L (ALT/SGPT) Alkaline Phosphatase 172 U/L 92 U/L Total Protein 6.0 GM/DL 5.8 GM/DL Albumin 2.3 GM/DL 2.0 GM/DL Phosphorus Level 3.2 MG/DL Magnesium Level 1.5 MG/DL Triglycerides Level 372 MG/DL Microbiology Date/Time Procedure Status Source Growth 05/07/16 13:30 Aerobic Blood Culture Received Blood Line Pending 05/07/16 13:30 Anaerobic Blood Culture Received Blood Line Pending 05/07/16 19:35 Aerobic Blood Culture Received Blood Peripheral Pending 05/07/16 19:35 Anaerobic Blood Culture Received Blood Peripheral Pending 05/08/16 04:50 Gram Stain Received Sputum Endotracheal Pending 05/08/16 04:50 Sputum Culture Received Sputum Endotracheal Pending Imaging Abdomen X-Ray 05/07/16 0400 Signed Impressions: Service Date/Time: Saturday, May 07, 2016 05:03 - CONCLUSION: There are 2 tubes within the stomach. Jhonny Green MD Tube Placement X-Ray 05/05/16 0000 Signed Impressions: Service Date/Time: April 16:20 - CONCLUSION: Fluoroscopically guided nasogastric tube repositioning as above. Attempts were discontinued after multiple attempts with the tubing seen coiling within the patient's mouth region and proximal esophagus. Tessa Nichole MD Abdomen X-Ray 05/05/16 0000 Signed Impressions: Service Date/Time: April 13:42 - CONCLUSION: No evidence of obstruction. Stable placement of Dobbhoff tube and nasogastric tube. Tessa Nichole MD Abdomen/Pelvis CT 05/02/16 0000 Signed Impressions: Service Date/Time: Monday, May 02, 2016 15:43 - CONCLUSION: 1. The exam demonstrates extensive inflammatory change around the pancreas with fluid extending down into the paracolic gutters consistent with severe pancreatitis. This has significantly worsened when compared to previous dated 04/24/16. No organized pseudocyst is present. 2. NG tube and Hardin in good position. Seng Rollins MD Abdomen X-Ray 04/30/16 0000 Signed Impressions: Service Date/Time: Saturday, April 30, 2016 05:12 - CONCLUSION: No dilated loops of small bowel. Stable dilated transverse colon. Hubert Garcia MD Chest X-Ray 04/27/16 0000 Signed Impressions: Service Date/Time: Wednesday, April 27, 2016 10:28 - CONCLUSION: 1. Dialysis catheter in good position. 2. Increasing bibasilar parenchymal changes worse on the left. Kermit Rollins MD FACR Renal Ultrasound 04/25/16 0000 Signed Impressions: Service Date/Time: Monday, April 25, 2016 15:01 - CONCLUSION: No evidence of hydronephrosis. Tom Seals MD Physical Exam GENERAL: Opens eyes, on the vent, NAD SKIN: No rashes. Warm, improving edema HEAD: Atraumatic. Normocephalic. No temporal or scalp tenderness. EYES: Pupils equal round and reactive. No injection or drainage. ENT: Intubated. NECK: Trachea midline. Supple, nontender, no meningeal signs. CARDIOVASCULAR: Heart sounds audible. RESPIRATORY: Clear to auscultation. Breath sounds equal bilaterally with decrease in the bases. GASTROINTESTINAL: Abdomen distended, tenderness diffusely, hypoactive bowel sounds. MUSCULOSKELETAL: Extremities without clubbing, cyanosis. Pedal edema noted, improving. NEUROLOGICAL: Sedated. Opens eyes Psych could not be assessed IV line sites with no evidence of infection. Assessment & Plan Remarks Possible sepsis (source: likely intra abdominal and aspiration/Health care associated pneumonia. Reviewed other sources: CL and HD cath, Cath associated UTI. Severe acute pancreatitis as most likely cause of new SIRS. No pseudocyst no evidence of any abscess. - last CT worse Persistent fevers Acute resp failure on vent. Acute renal failure on Hemodialysis. Alcoholism Recs: Continue Azactam IV pt tolerating doses (noted PCN allergy as hives) Continue Levaquin IV Continue Flagyl oral (will help reduce fluid issues if tolerated) Continue Diflucan IV (for fungal intra abd sepsis/peritonitis) Follow new C/S Monitor progress Monitor Melanie Mathias MD May 08, 2016 11:13
[2016-05-08] MEDS ORDERED: POTASSIUM CHLOR 20 MEQ PREMIX 100 ML IV ONE (11:15)
--- NOTE | 2016-05-08 13:54 | HHI.GIFU ---
GI Follow-up Note Consult Follow-up Subjective: Patient laying in bed comfortably, more awake, had a bowel movement .Stool c diff negative , repeat ct noted Objective: PHYSICAL EXAMINATION: Vitals signs stable No fever Vital Signs Date Time Temp Pulse Resp B/P Pulse Ox O2 Delivery O2 Flow Rate FiO2 05/08/16 12:25 97 30 05/08/16 12:00 79 05/08/16 12:00 30 05/08/16 12:00 100.1 79 17 128/58 98 05/08/16 10:00 88 05/08/16 09:57 30 05/08/16 09:57 100 30 05/08/16 09:47 98 30 05/08/16 08:00 76 05/08/16 08:00 101.8 76 17 109/59 97 05/08/16 08:00 30 05/08/16 06:00 73 HEENT: Pupils round and reactive to light; normocephalic; atraumatic; no jaundice. Throat is clear. NECK: Neck is supple, no JVD, no lymphadenopathy. CHEST: Chest is clear to auscultation and percussion. CARDIAC: Regular rate and rhythm with no murmur gallop or rubs. ABDOMEN: Soft, distended, nontender; no hepatosplenomegaly; bowel sounds are present in all four quadrants. EXTREMITIES: No clubbing, cyanosis, or edema. SKIN: Normal; no rash; no jaundice. THREAD CUTTER: No focal deficits; awake, understands questions Available Data (labs, X- Rays, Procedues) : Laboratory Tests Test 05/07/16 05/07/16 05/07/16 05/08/16 03:55 13:42 16:00 03:40 White Blood Count 28.8 TH/MM3 36.6 TH/MM3 23.4 TH/MM3 Red Blood Count 3.04 MIL/MM3 3.47 MIL/MM3 2.83 MIL/MM3 Hemoglobin 7.8 GM/DL 8.8 GM/DL 7.4 GM/DL Hematocrit 23.8 % 27.1 % 21.9 % Mean Corpuscular Volume 78.2 FL 78.2 FL 77.5 FL Mean Corpuscular Hemoglobin 25.6 PG 25.5 PG 26.0 PG Mean Corpuscular Hemoglobin 32.7 % 32.6 % 33.5 % Concent Red Cell Distribution Width 17.5 % 17.8 % 17.3 % Platelet Count 330 TH/MM3 368 TH/MM3 325 TH/MM3 Mean Platelet Volume 9.7 FL 9.4 FL 9.6 FL Neutrophils (%) (Auto) 74.6 % 81.9 % 78.4 % Lymphocytes (%) (Auto) 14.0 % 10.7 % 8.4 % Monocytes (%) (Auto) 9.7 % 5.3 % 10.3 % Eosinophils (%) (Auto) 0.9 % 1.2 % 2.3 % Basophils (%) (Auto) 0.8 % 0.9 % 0.6 % Neutrophils # (Auto) 21.5 TH/MM3 30.0 TH/MM3 18.3 TH/MM3 Lymphocytes # (Auto) 4.0 TH/MM3 3.9 TH/MM3 2.0 TH/MM3 Monocytes # (Auto) 2.8 TH/MM3 1.9 TH/MM3 2.4 TH/MM3 Eosinophils # (Auto) 0.3 TH/MM3 0.4 TH/MM3 0.5 TH/MM3 Basophils # (Auto) 0.2 TH/MM3 0.3 TH/MM3 0.1 TH/MM3 CBC Comment AUTO DIFF AUTO DIFF AUTO DIFF Differential Total Cells 100 100 Counted Neutrophils % (Manual) 80 % 72 % Band Neutrophils % 5 % 10 % Lymphocytes % 5 % 7 % Monocytes % 5 % 7 % Eosinophils % 2 % Neutrophils # (Manual) 25.3 TH/MM3 31.5 TH/MM3 Metamyelocytes 1 % 2 % Myelocytes 2 % 2 % Nucleated Red Blood Cells 1 /100 WBC Differential Comment FINAL DIFF FINAL DIFF AUTO DIFF MANUAL MANUAL CONFIRMED Platelet Estimate NORMAL NORMAL Platelet Morphology Comment NORMAL NORMAL Target Cells 2+ 3+ 3+ Sodium Level 137 MEQ/L 133 MEQ/L 138 MEQ/L Potassium Level 3.4 MEQ/L 3.2 MEQ/L 3.1 MEQ/L Chloride Level 98 MEQ/L 96 MEQ/L 99 MEQ/L Carbon Dioxide Level 25.6 MEQ/L 26.3 MEQ/L 28.2 MEQ/L Anion Gap 13 MEQ/L 11 MEQ/L 11 MEQ/L Blood Urea Nitrogen 56 MG/DL 37 MG/DL 49 MG/DL Creatinine 4.13 MG/DL 3.08 MG/DL 3.40 MG/DL Estimat Glomerular Filtration 18 ML/MIN 25 ML/MIN 22 ML/MIN Rate Random Glucose 103 MG/DL 279 MG/DL 170 MG/DL Lactic Acid Level 0.7 mmol/L 0.9 mmol/L Calcium Level 9.2 MG/DL 8.2 MG/DL 8.6 MG/DL Total Bilirubin 1.0 MG/DL 1.2 MG/DL Aspartate Amino Transf 27 U/L 25 U/L (AST/SGOT) Alanine Aminotransferase 13 U/L 11 U/L (ALT/SGPT) Alkaline Phosphatase 172 U/L 92 U/L Total Protein 6.0 GM/DL 5.8 GM/DL Albumin 2.3 GM/DL 2.0 GM/DL Dohle Bodies PRESENT Prothrombin Time 11.9 SEC Prothromb Time International 1.1 RATIO Ratio Phosphorus Level 3.2 MG/DL Magnesium Level 1.5 MG/DL Triglycerides Level 372 MG/DL Ovalocytes 1+ Test 05/08/16 08:30 Stool C. difficile Toxin (PCR) NEGATIVE Stl C. difficile Toxin PRESUMPTIVE Epiderm 027 NEGATIVE ASSESSMENT/PLAN: severe pancreatitis secondary etoh ileus -improving hep c ab -additional work-up op Recommendations ok to start tube feeding once Dobbhoff repositioned avoid etoh once discharged Relistor prn consider g/j tube if cannot be extubated soon and Dobbhoff tube cannot be placed It was a pleasure seeing Julian Marti. Thank you for this consult. Entered by: Meghan Ham MD May 08, 2016 13:54
[2016-05-08] MEDS: FLUCONAZOLE 200 MG PREMIX BAG 100 ML IV SCH (16:47)
[2016-05-08] MEDS: fentaNYL DRIP 250 ML IV SCH (16:49)
[2016-05-08] MEDS: CLINIMIX 4.25/25 (Cust.Renal Central) 1000 mL- </= 42 mls/hr IV-CENTRAL SCH ×8 (19:43)
[2016-05-09] VITALS (19 sets, daily range): BP systolic 104–136; BP diastolic 55–65; PULSE 69–82; RESP 16–26; TEMP 99.2–100.8; O2SAT 97–100
[2016-05-09] MEDS: HEPARIN SODIUM - SQ 10,000 UNITS/ML VIAL SQ SCH ×3 (00:16→15:55)
[2016-05-09] MEDS: oxyCODONE HCL ORAL CONC 20 MG/ML SYRINGE PO SCH ×7 (00:17→23:41)
[2016-05-09] MEDS: PROPOFOL 1000 MG/100 ML INJ 100 ML IV SCH ×2 (00:17→08:33)
[2016-05-09] MEDS: metroNIDAZOLE 500 MG TAB PO/NG SCH ×3 (02:19→17:48)
[2016-05-09] MEDS: CHLORHEXIDINE GLUCONATE 2 % 1 PACK (2 CLOTHS) TOP SCH (03:50)
[2016-05-09] MEDS: METOCLOPRAMIDE HCL 10 MG/2 ML VIAL IV PUSH SCH ×3 (05:14→21:24)
[2016-05-09 05:17] LABS: AUTOMATED NEUTROPHIL # 19.2 TH/MM3 (1.8-7.7); BASOPHIL # 0.2 TH/MM3 (0-0.2); BASOPHIL % 0.7 % (0.0-2.0); EOSINOPHIL # 0.7 TH/MM3 (0-0.4); EOSINOPHIL % 2.7 % (0.0-4.0); HEMATOCRIT 23.3 % (39.0-51.0); LYMPH % 9.5 % (9.0-44.0); LYMPHOCYTE # 2.4 TH/MM3 (1.0-4.8); MEAN CELL VOLUME 77.6 FL (80.0-100.0); MEAN CORPUSCULAR HEMOGLOBIN 25.2 PG (27.0-34.0); MEAN CORPUSCULAR HGB CONC 32.4 % (32.0-36.0); MONO % 10.6 % (0.0-8.0); NEUT % 76.5 % (16.0-70.0); PLATELET COUNT 398 TH/MM3 (150-450); RED CELL DISTRIBUTION WIDTH 17.1 % (11.6-17.2); WHITE BLOOD COUNT 25.1 TH/MM3 (4.0-11.0)
[2016-05-09 05:25] LABS: HEMO FLAGS AUTO DIFF
[2016-05-09 05:50] LABS: ALKALINE PHOSPHATASE 84 U/L (45-117); ALT (GPT) 10 U/L (12-78); ANION GAP 10 MEQ/L (5-15); AST (GOT) 28 U/L (15-37); BICARBONATE 27.1 MEQ/L (21.0-32.0); BLOOD UREA NITROGEN 57 MG/DL (7-18); CHLORIDE 99 MEQ/L (98-107); GLOMERULAR FILTRATION RATE 25 ML/MIN (>89); SODIUM (NA) 136 MEQ/L (136-145); TOTAL BILIRUBIN ADULT 0.7 MG/DL (0.2-1.0)
[2016-05-09 06:08] LABS: POTASSIUM 2.8 MEQ/L (3.5-5.1)
[2016-05-09 08:12] LABS: BANDS 4 % (0-6); CORRECTED NUCLEATED RBC 1 /100 WBC (0-0); EOSINOPHILS 1 % (0-4); METAMYELOCYTES 1 % (0-1); MYELOCYTES 3 % (0-0); NEUTROPHIL # MANUAL DIFF 21.6 TH/MM3 (1.8-7.7); POLYS (SEG NEUTROPHILS) 78 % (16-70); WBC DIFF SAMPLE 100
[2016-05-09 08:13] LABS: PLATELET ESTIMATE SMEAR NORMAL (NORMAL); PLATELET MORPHOLOGY ENLARGED (NORMAL); SCAN/DIFF FINAL DIFF MANUAL; TARGET CELLS 1+ (NORMAL)
[2016-05-09] MEDS: AZTREONAM INJ 1,000 MG in SODIUM CHLORIDE 0.9% INJ 100 ML IV SCH ×2 (08:33→19:37)
[2016-05-09] MEDS: CHLORHEXIDINE 0.12% (ORAL KIT) 15 ML CUP MT SCH ×2 (08:33→19:39)
[2016-05-09] MEDS: SODIUM CHLORIDE 0.9% FLUSH 5 ML FLUSH IV FLUSH SCH ×2 (08:33→21:00)
[2016-05-09] MEDS: PANTOPRAZOLE SODIUM 40 MG VIAL IV SCH (08:33)
[2016-05-09] MEDS ORDERED: POTASSIUM CHLOR 40 MEQ PREMIX 100 ML IV ONE ×3 (08:45→17:00)
--- NOTE | 2016-05-09 09:36 | RADRPT ---
EXAM DATE/TIME: 05/09/2016 09:02 [facility] COMPARISON: ABDOMEN KUB ONLY, May 07, 2016, 5:03. INDICATIONS : Serena placement. MEDICAL HISTORY : Congestive heart failure. Arthritis. Pancreatitis. ETOH abuse. Diabetes. SURGICAL HISTORY : None. ENCOUNTER: Subsequent ACUITY: 2 weeks PAIN SCORE: Non-responsive. LOCATION: Bilateral Abdomen. FINDINGS: 2 tubes pass through the midline a chest into the stomach terminating in the distal body and antrum o ne a nasogastric tube the other a Dobbhoff tube. Abdomen otherwise negative and stable. CONCLUSION: 2 tubes in the stomach one nasogastric one Dobbhoff both terminate in the distal body or antrum of th e stomach Braden Larson MD on May 09, 2016 at 9:32 Board Certified Radiologist. This report was verified electronically.
[2016-05-09] MEDS: LEVOFLOXACIN 500 MG PREMIX INJ 100 ML IV SCH (11:03)
[2016-05-09] MEDS: fentaNYL DRIP 250 ML IV SCH (12:51)
--- NOTE | 2016-05-09 13:21 | HHI.GIFU ---
Subjective Remarks Resting in bed. Pt on CPAP. Lethargic but awake. Diffuse abdominal tenderness (Fernanda Zhang) Objective Vitals I&O Vital Signs Date Time Temp Pulse Resp B/P Pulse Ox O2 Delivery O2 Flow Rate FiO2 05/09/16 12:03 19 05/09/16 11:45 100 30 05/09/16 10:00 82 05/09/16 08:00 40 05/09/16 08:00 100.4 76 16 136/65 97 05/09/16 08:00 76 05/09/16 07:44 30 05/09/16 07:44 97 30 05/09/16 06:00 72 05/09/16 04:00 100.8 72 17 119/61 97 05/09/16 04:00 30 05/09/16 04:00 72 05/09/16 03:25 97 30 05/09/16 02:00 73 05/09/16 00:50 100 30 05/09/16 00:00 69 05/09/16 00:00 30 05/09/16 00:00 100.0 69 17 104/57 98 05/08/16 22:38 99 30 05/08/16 22:00 72 05/08/16 20:18 100 30 05/08/16 20:00 72 05/08/16 20:00 100.0 73 22 106/51 99 05/08/16 20:00 30 05/08/16 18:00 80 05/08/16 16:00 30 05/08/16 16:00 77 05/08/16 16:00 99.6 77 15 111/59 98 05/08/16 15:36 98 30 05/08/16 14:00 73 I/O 05/08/16 05/08/16 05/08/16 05/09/16 05/09/16 05/09/16 07:00 15:00 23:00 07:00 15:00 23:00 Intake Total 795 ml 844 ml 870 ml 738 ml Output Total 310 ml 475 ml 300 ml 500 ml Balance 485 ml 369 ml 570 ml 238 ml IV Total 399 ml 410 ml 416 ml 334 ml TPN/PPN 346 ml 314 ml 344 ml 354 ml Other 50 ml 120 ml 110 ml 50 ml Output Urine Total 250 ml 200 ml 300 ml 400 ml Gastric Drainage Total 60 ml 275 ml 0 ml 100 ml # Bowel Movements 0 2 0 0 Laboratory Laboratory Tests Test 05/09/16 04:55 White Blood Count 25.1 Red Blood Count 3.00 Hemoglobin 7.6 Hematocrit 23.3 Mean Corpuscular Volume 77.6 Mean Corpuscular Hemoglobin 25.2 Mean Corpuscular Hemoglobin 32.4 Concent Red Cell Distribution Width 17.1 Platelet Count 398 Mean Platelet Volume 9.7 Neutrophils (%) (Auto) 76.5 Lymphocytes (%) (Auto) 9.5 Monocytes (%) (Auto) 10.6 Eosinophils (%) (Auto) 2.7 Basophils (%) (Auto) 0.7 Neutrophils # (Auto) 19.2 Lymphocytes # (Auto) 2.4 Monocytes # (Auto) 2.7 Eosinophils # (Auto) 0.7 Basophils # (Auto) 0.2 CBC Comment AUTO DIFF Differential Total Cells 100 Counted Neutrophils % (Manual) 78 Band Neutrophils % 4 Lymphocytes % 5 Monocytes % 8 Eosinophils % 1 Neutrophils # (Manual) 21.6 Metamyelocytes 1 Myelocytes 3 Nucleated Red Blood Cells 1 Differential Comment FINAL DIFF MANUAL Platelet Estimate NORMAL Platelet Morphology Comment ENLARGED Target Cells 1+ Sodium Level 136 Potassium Level 2.8 Chloride Level 99 Carbon Dioxide Level 27.1 Anion Gap 10 Blood Urea Nitrogen 57 Creatinine 3.09 Estimat Glomerular Filtration 25 Rate Random Glucose 155 Calcium Level 8.8 Total Bilirubin 0.7 Aspartate Amino Transf 28 (AST/SGOT) Alanine Aminotransferase 10 (ALT/SGPT) Alkaline Phosphatase 84 Total Protein 6.1 Albumin 2.0 Date/Time Procedure Status Source Growth 05/08/16 04:50 Gram Stain - Final Resulted Sputum Endotracheal 05/08/16 04:50 Sputum Culture - Preliminary Resulted Staphylococcus Aureus 05/07/16 19:35 Aerobic Blood Culture - Preliminary Resulted Blood Peripheral NO GROWTH IN 2 DAYS 05/07/16 19:35 Anaerobic Blood Culture - Preliminary Resulted Blood Peripheral NO GROWTH IN 2 DAYS Imaging Last Impressions Abdomen X-Ray 05/09/16 0900 Signed Impressions: Service Date/Time: Monday, May 09, 2016 09:02 - CONCLUSION: 2 tubes in the stomach one nasogastric one Dobbhoff both terminate in the distal body or antrum of the stomach Braden Larson MD Chest X-Ray 05/08/16 0000 Signed Impressions: Service Date/Time: Sunday, May 08, 2016 05:13 - CONCLUSION: No significant change has occurred. Jhonny Green MD Abdomen/Pelvis CT 05/07/16 0000 Signed Impressions: Service Date/Time: Saturday, May 07, 2016 20:15 - CONCLUSION: Stable severe inflammatory change in the upper abdomen obscuring the pancreas, characteristic of severe pancreatitis. There is also fluid tracking down the right paracolic gutter. Overall, the appearance and severity is unchanged from 05/02/16. Hubert Garcia MD Tube Placement X-Ray 05/05/16 0000 Signed Impressions: Service Date/Time: , May 05, 2016 16:20 - CONCLUSION: Fluoroscopically guided nasogastric tube repositioning as above. Attempts were discontinued after multiple attempts with the tubing seen coiling within the patient's mouth region and proximal esophagus. Tessa Nichole MD Renal Ultrasound 04/25/16 0000 Signed Impressions: Service Date/Time: Monday, April 25, 2016 15:01 - CONCLUSION: No evidence of hydronephrosis. Tom Seals MD Physical Exam HEENT: Normocephalic; atraumatic; no jaundice. CHEST: Rhonchi. OETT to CPAP CARDIAC: RRR ABDOMEN: Soft, distended, diffuse tenderness, bowel sounds are hypoactive. EXTREMITIES: Generalized edema. PRINTER ASSISTANT: Lethargic, awake. (Fernanda Zhang) Assessment and Plan Plan ASSESSMENT: - Severe pancreatitis (acute on chronic), with heavy alcohol intake about [address] Abdomen and pelvis (04/24/16)---> Inflammatory stranding in and around the pancreas suggestive of pancreatitis without any focal areas of necrosis or pseudocyst formation. Mildly fatty liver. Rpt. CT Scan abdomen and pelvis Without IV contrast (05/02/16)-----> exam demonstrates extensive inflammatory change around the pancreas with fluid extending down into the paracolic gutters consistent with severe pancreatitis. This has significantly worsened when compared to the previous stated 04/24/16. No organized pseudocyst is present. Pt with persistent leukocytosis WBC 25.1. LFT stable. Radiology was not able to advance Dobhoff. TPN. There is talk of possible tracheostomy/ peg this week. ? G/J tube. - Ileus/vs obstruction. KUB (05/09/16)----> 2 tubes in the stomach one nasogastric one Dobbhoff both terminate in the distal body or antrum of the stomach. - Persistent Leukocytosis. Flagyl, Diflucan, Azactam, Levaquin, - Anemia. 7.6/23.3 - ARF. HD. - Hep-c (+)- not sure if he had tx or not, he is not a candidate due to drinking behavior - Acute respiratory failure - per CCM - DM, COPD per CCM Plan: - NPO - Radiology unable to advance Dobhoff - TPN Clinimax 4./ Renal Formula at 70cc/hr - ? G/J tube this week for post pyloric feedings - Monitor labs - Abx per ID - CCM following - Equestrian Trainer following - Supportive care - Further recommendations to follow based on results of above - PT seen and examined by Dr. Vogt and myself and this note is written on his behalf (Fernanda Zhang) Physician Comments Patient seen and examined Agree with above Continue with current supportive care Monitor labs (Joaquín Vogt MD) Fernanda Zhang May 09, 2016 13:21 Joaquín Vogt MD May 09, 2016 22:46
--- NOTE | 2016-05-09 13:30 | HHI.CCPN ---
Subjective Remarks/Hospital Course This is a 65-year-old male with history of COPD, strong alcohol abuse history, diabetes, questionable history of heart failure, coronary artery disease who initially presented to the emergency department 04/25 with abdominal pain and was found to have acute pancreatitis. He was noted to the hospital at that time. Over the subsequent 48 hours, he developed worsening hypoxia as well as an acute kidney injury. This was initially thought to be CHF exacerbation and volume overload. He was given diuretics without a good response. His creatinine has trended up to 6. Nephrology was consulted and are considering renal replacement therapy. Tonight throughout the night, the patient became more hypoxic and dyspneic with increasing oxygen requirement. He is transferred to the ICU for his acute hypoxic respiratory failure. The patient is nauseated and has vomited a few times. 04/28: Intubated for respiratory distress with hypoxemia, now with acceptable gas exchange. Tolerating dialysis, try to extubate shortly. 04/29: Abdomen much too distended for extubation. NG tube placed with Roman forceps. 04/30: Abdomen remains tensely distended. No peritoneal irritation. BS few. 05/01: Abdomen remains tensely distended. No peritoneal irritation. 05/02: Abdominal distention worse. Pain worse. Will get CT to look for perforation. 05/03: CT abdomen with rip-roaring inflammatory process involving the pancreas; much worse. Sputum with multiple organisms. Patient clinically more critically ill. 05/04: Will start TFs if OK with GI service. 05/05: Dobbhoff tube in stomach. Will try to advance to duodenum and avoid TPN if at all possible. 05/06: DHT not post-pyloric, will advance and get KUB in a.m. 05/07: Persistent low grade fever and leukocytosis. Ileus persists. Goal is to get intestinal motility restored, decompress abdomen, extubate, and transfer to son's area in [place] for long-term care. 05/08: Remains sedated, arousable, orally intubated on mechanical ventilation. 05/09: Sedated, arousable, orally intubated on mechanical ventilation. On TPN Objective Vital Signs Date Time Temp Pulse Resp B/P Pulse Ox O2 Delivery O2 Flow Rate FiO2 05/09/16 12:03 19 05/09/16 12:00 77 05/09/16 12:00 99.8 110/58 99 05/09/16 12:00 40 Intake and Output 05/08/16 05/08/16 05/09/16 08:00 16:00 00:00 Intake Total 795 ml 844 ml 870 ml Output Total 310 ml 475 ml 300 ml Balance 485 ml 369 ml 570 ml Result Diagram: 05/09/16 0455 05/09/16 0455 Imaging Critical care bedside ultrasound 04/27: Grossly preserved left ventricular function. Normal RV size and function. Small collapsible IVC which very strongly with respirations and is almost completely flat with inspiration. No pericardial effusion. Objective Remarks GENERAL: Middle-aged male, calm on moderate sedation HEENT: Normocephalic. Atraumatic. NECK: Supple, orally intubated. CHEST: On mechanical ventilation, Scattered rhonchi, decreased BS bases. Good ling air movement. Copious secretions persist. CARDIOVASCULAR: Tachycardia, irregular rhythm. No murmurs. No JVD. ABDOMEN: Tensely distended, firm, generally tender to palpation, Occasional BS. MUSCULOSKELETAL: Trace peripheral edema. Warm, well perfused. NEUROLOGICAL: Opens eyes to voice. Tracks with eyes. Follows commands all 4 extremities. A/P Assessment and Plan Plan by systems: Neurologic: Alcohol abuse Metabolic encephalopathy Propofol and fentanyl for goal RASS Goal RASS -1. Daily vacation - Started to lower sedation 05/05. - Needs minimal sedation Respiratory: Acute hypoxic respiratory failure ARDS COPD Low tidal volume ventilation turning 6 cc/kg ideal body weight Vent bundle Head of bed at 30 Wean FiO2 for goal SPO2 greater than 90% Nebs every 6 and every 2 when necessary -Acceptable gas exchange. Abdomen much too distended to allow comfortable unassisted ventilation. -Will need trach to facilitate pulmonary toilet and mobilization-consult general surgery. Cardiovascular: Sinus tachycardia SIRS response Continue telemetry SIRS likely 2/2 acute pancreatitis Renal: Acute kidney injury Likely has a component of prerenal, but also likely from acute pancreatitis Hardin catheter -- Strict I/Os, monitor and replete electro lites, follow BUN/creatinine -Continue HD. FEN/GI: Severe intravascular volume depletion Severe acute pancreatitis Severe hypocalcemia Metabolic acidosis Currently nothing by mouth. Dobbhoff tube placed however still in stomach. Would want Dobbhoff to be postpyloric to initiate tube feedings. TPN for nutrition started 05/07. OG tube to wall suction. Possible GJ tube by GI. Daily BMP, CBC Heme/ID: Leukocytosis Likely reactive secondary to acute pancreatitis Stool for C. difficile negative (05/08) Urine, sputum, blood cultures. ABX per ID service. Daily CBC ID - Leukocytosis with shift. Dr. Hercules ID service advising. Sputum 05/01 - Klebsiella, E. coli, Staph MSSA Endocrine: Diabetes -- SSI, medium scale, every 6 hours Prophylaxis: GI Prophylaxis Protonix 40 mg IV daily 24 hours DVT Prophylaxis -- SCDs Heparin 5000 every 12h Lines: 04/27 left radial arterial line 04/27 left subclavian triple-lumen catheter - to be discontinued. New central line placed right subclavian 05/07. [place] Dr. Paulson had lengthy discussions with patient's son at bedside about the severity of his illness and poor prognosis. Overall impression: Marked abdominal distention persists with obstructive sounds and tenderness. Tolerates SBT but won't ventilate with severe abdominal distention. Enteral nutrition to start when DHT post-pyloric. New central line placed 05/07 in anticipation of requiring TPN. We'll consult general surgery for tracheostomy placement. Time spent on critical care excluding procedures 40 minutes Jorge Hercules MD May 09, 2016 13:30
--- NOTE | 2016-05-09 14:34 | HHI.NPPN ---
Subjective History of Present Illness 65 year old with Acute pancreatitis, ARF, Respiratory distress, now intubated on hemodialysis Additional Remarks Underwent dialysis Monday. Continues to have abdominal distension. Objective Data Data 05/08/16 05/09/16 19:00 07:00 Intake Total 904 ml 1548 ml Output Total 475 ml 800 ml Balance 429 ml 748 ml IV Total 410 ml 750 ml TPN/PPN 314 ml 698 ml Other 180 ml 100 ml Output Urine Total 200 ml 700 ml Gastric Drainage Total 275 ml 100 ml # Bowel Movements 2 0 Vital Signs Date Time Temp Pulse Resp B/P Pulse Ox O2 Delivery O2 Flow Rate FiO2 05/09/16 14:00 80 05/09/16 12:03 19 05/09/16 12:00 77 05/09/16 12:00 99.8 77 19 110/58 99 05/09/16 12:00 40 05/09/16 11:45 100 30 05/09/16 10:00 82 05/09/16 08:00 40 05/09/16 08:00 100.4 76 16 136/65 97 05/09/16 08:00 76 05/09/16 07:44 30 05/09/16 07:44 97 30 05/09/16 06:00 72 05/09/16 04:00 100.8 72 17 119/61 97 05/09/16 04:00 30 05/09/16 04:00 72 05/09/16 03:25 97 30 05/09/16 02:00 73 05/09/16 00:50 100 30 05/09/16 00:00 69 05/09/16 00:00 30 05/09/16 00:00 100.0 69 17 104/57 98 05/08/16 22:38 99 30 05/08/16 22:00 72 05/08/16 20:18 100 30 05/08/16 20:00 72 05/08/16 20:00 100.0 73 22 106/51 99 05/08/16 20:00 30 05/08/16 18:00 80 05/08/16 16:00 30 05/08/16 16:00 77 05/08/16 16:00 99.6 77 15 111/59 98 05/08/16 15:36 98 30 -: 05/09/16 0455 05/09/16 0455 Physical Exam General Appearance: Well Developed Neck Neck Exam: Neck Supple Pulmonary Resp Exam: Decreased Bases Cardiology CV Exam: Tachycardia Gastrointestinal/Abdomen GI Exam: Distended Integumentary Skin Exam: Dry, Intact Extremeties Extremities Exam: Moderate Edema Assessment/Plan Problem List: (1) Acute renal failure Plan: Patient has renal failure likely due to complications of pancreatitis and developed acute tubular necrosis now on hemodialysis with improving UOP. k is low replaced repeat pending Dialysis support to be continued. (2) Pancreatitis Plan: Severe pancreatitis with acute renal failure. Abdomen is distended. Has developed ileus. (3) Abdominal pain Plan: Distention due to pancreatitis (4) COPD exacerbation Plan: Continue treatment, on vent Problem Qualifiers (1) Acute renal failure: Qualified Code: N17.0 - Acute renal failure with tubular necrosis (2) Pancreatitis: Qualified Code: K85.20 - Alcohol-induced acute pancreatitis, unspecified complication status (3) Abdominal pain: Qualified Code: R10.12 - Left upper quadrant pain Janett Crane MD May 09, 2016 14:34
[2016-05-09] MEDS: FLUCONAZOLE 200 MG PREMIX BAG 100 ML IV SCH (17:48)
--- NOTE | 2016-05-09 19:00 | PD.CONS ---
HPI Service General Surgery Consult Requested By Dr. Hercules Reason for Consult Tracheostomy Primary Care Physician ELIEL Liu History of Present Illness Is is a 65-year-old male with a history of COPD, CAD, alcohol abuse admitted on April 24 and found to have severe pancreatitis. He developed acute kidney injury and is now requiring dialysis. The patient was intubated on April 28 and has remained intubated since that time. I'm consulted to perform tracheostomy. Review of Systems ROS Limitations: Clinical Condition, Intubated Past Family Social History Past Medical History COPD CAD Diabetes mellitus Alcohol abuse Hepatitis C antibody present on labs Past Surgical History Appendectomy Reported Medications Reported Meds & Active Scripts Active Prednisone 20 Mg Tab 40 Mg PO DAILY Take 40mg daily for 5 days total. Reported Nitroglycerin SL (Nitroglycerin) 0.4 Mg Subl 0.4 Mg SL DIRECTED PRN ONE TABLET UNDER THE TONGUE NEEDED FOR CHEST PAIN, MAY REPEAT EVERY FIVE MINUTES FOR A TOTAL OF 3 DOSES OR CALL 911 IF NO RELIEF Spiriva Handihaler (Tiotropium Inh) 18 Mcg Cap 18 Mcg INH DAILY 1 capsule = 18 mcg Daliresp (Roflumilast) 500 Mcg Tab 500 Mcg PO DAILY Dilantin (Phenytoin Extended) 100 Mg Cap 300 Mg PO DAILY Omeprazole 40 Mg Cap 40 Mg PO DAILY Metformin (Metformin HCl) 1,000 Mg Tab 1,000 Mg PO BIDPC With meals Hydrochlorothiazide 25 Mg Tab 25 Mg PO BID Gabapentin 600 Mg Tab 600 Mg PO TID Clonidine (Clonidine HCl) 0.1 Mg Tab 0.1 Mg PO Q12HR Amlodipine (Amlodipine Besylate) 5 Mg Tab 5 Mg PO BID Symbicort Inh (Budesonide/Formoterol Fumarate) 160-4.5 Mcg/Act Aero 2 Puff INH Q12HR Allopurinol 300 Mg Tab 300 Mg PO DAILY Ventolin Hfa 18 GM Inh (Albuterol Sulfate) 90 Mcg/Act Aer 2 Puff INH Q4-6H PRN Albuterol Neb (Albuterol Sulfate) 2.5 Mg/0.5 Ml Neb 2.5 Mg NEB QID NEB PRN Note: The Albuterol Sulfate Inhalation Solution is concentrated and must be diluted. Read complete instructions carefully before using. Allergies: Coded Allergies: Penicillin (Verified Allergy, Severe, HIVES, 04/24/16) Active Ordered Medications Current Medications Medications (Trade) Dose Ordered Sig/Tamera Route Start Time Stop Time Status Last Admin (Zofran Inj) 4 mg Q6H PRN IV 04/24/16 15:15 (Heparin Inj) 5,000 units Q8H SQ 04/24/16 15:15 Hold 05/09/16 15:55 (NS Flush) 2 ml UNSCH PRN IV FLUSH 04/24/16 15:30 04/27/16 02:21 IV Flush 2 ml 2 ml BID IV FLUSH 04/24/16 21:00 05/08/16 20:31 Sodium Chloride 1,000 ml @ 0 mls/hr Q0M PRN IV 04/26/16 19:10 05/05/16 07:38 (NS 1000 ml Inj) 1,000 ml @ 0 mls/hr Q0M PRN IV 04/26/16 19:10 04/28/16 10:36 IV Flush 5 ml 5 ml UNSCH PRN IVF 04/26/16 19:15 04/28/16 10:36 Propofol 100 ml @ 0 mls/hr TITRATE IV 04/27/16 04:45 05/09/16 08:33 (fentaNYL DRIP) 250 ml @ 0 mls/hr TITRATE IV 04/27/16 04:45 05/09/16 12:51 (Dilaudid Pf Inj) 0.5 mg Q4H PRN IV PUSH 04/27/16 04:45 04/28/16 22:03 (Tylenol 650 Mg/ 20 ml Liq) 500 mg Q6H PRN PO 04/27/16 04:45 05/08/16 07:49 (Roxicodone Intensol Liq) 5 mg Q4HR PO 04/27/16 08:00 05/09/16 15:55 (Protonix Inj) 40 mg DAILY IV 04/27/16 09:00 05/09/16 08:33 (Chlorhexidine 2% Cloth) Taper DAILY@04 TOP 04/28/16 04:00 04/24/17 03:59 05/09/16 03:50 Chlorhexidine Gluconate 15 ml 15 ml BID@08,20 MT 04/27/16 08:00 05/09/16 08:33 (NS 1000 ml Inj) 1,000 ml @ 0 mls/hr Q0M PRN IV 04/27/16 13:10 Heparin Sodium (Porcine) 8000 units 8,000 units UNSCH PRN IVF 04/27/16 13:15 Sodium Chloride 1,000 ml @ 200 mls/hr Q5H PRN IV 04/27/16 13:10 (NS 1000 ml Inj) 1,000 ml @ 0 mls/hr Q0M PRN IV 04/27/16 13:10 (Mannitol Inj) 12.5 gm UNSCH PRN IV 04/27/16 13:15 05/05/16 07:39 (Albumin 25% Inj) 25 gm UNSCH PRN IV 04/27/16 13:15 05/05/16 07:41 (NS Flush) 5 ml UNSCH PRN IVF 04/27/16 13:15 (Heparin Inj) UNSCH PRN .XX 04/27/16 13:15 05/07/16 14:20 (Gentamicin (Dialysis) Inj) 20 mg UNSCH PRN IV 04/27/16 13:15 05/07/16 14:20 (Zofran Inj) 4 mg UNSCH PRN IV 04/27/16 13:15 (Tylenol) 650 mg UNSCH PRN PO 04/27/16 13:15 05/03/16 12:37 (Benadryl) 25 mg UNSCH PRN PO 04/27/16 13:15 (Nitrostat Sl) 0.4 mg UNSCH PRN SL 04/27/16 13:15 (Catapres) 0.1 mg UNSCH PRN PO 04/27/16 13:15 Gelatin 1 foam 1 foam UNSCH PRN TOP 04/27/16 13:15 Aztreonam 1000 mg/ Sodium Chloride 100 ml @ 200 mls/hr Q12H IV 04/30/16 08:00 05/09/16 08:33 Norepinephrine Bitartrate 250 ml @ 0 mls/hr TITRATE IV 05/02/16 20:30 05/08/16 07:49 (Levaquin 500 Mg Premix Inj) 100 ml @ 100 mls/hr Q48H IV 05/03/16 12:00 05/09/16 11:03 Metronidazole 500 mg 500 mg Q8H PO/NG 05/03/16 18:00 05/09/16 17:48 (Diflucan 200 Mg Premix Bag) 100 ml @ 100 mls/hr Q24H IV 05/03/16 18:00 05/09/16 17:48 (Epogen Inj) 10,000 units UNSCH PRN IV 05/04/16 14:45 05/07/16 14:20 Metoclopramide HCl 5 mg 5 mg Q8HR IV PUSH 05/06/16 22:00 05/09/16 12:51 Sodium Chloride 5.5 meq/Sodium Acetate 29.5 meq/ Potassium Chloride 20 meq/ Magnesium Chloride 5 meq/ Calcium Chloride 4.5 meq/ Multivitamins 10 ml/Folic Acid 1 mg/Amino Acids/ Dextrose 1,042.1719 ml @ 42 mls/hr Q24H IV-CENTRAL 05/07/16 20:00 05/08/16 19:43 (KCl 40 Meq Premix Inj) 100 ml @ 25 mls/hr ONCE ONCE IV 05/09/16 16:00 05/09/16 19:59 05/09/16 15:55 Family History Noncontributory Social History On chart review, the patient smokes tobacco. He drinks 10 drinks daily. Physical Exam Vital Signs Vital Signs Date Time Temp Pulse Resp B/P Pulse Ox O2 Delivery O2 Flow Rate FiO2 05/09/16 18:00 81 05/09/16 16:55 20 05/09/16 16:00 99.2 82 26 112/55 99 05/09/16 16:00 40 05/09/16 16:00 82 05/09/16 15:46 99 30 05/09/16 14:00 80 05/09/16 12:00 77 05/09/16 12:00 99.8 77 19 110/58 99 05/09/16 12:00 40 05/09/16 11:45 100 30 05/09/16 10:00 82 05/09/16 08:00 40 05/09/16 08:00 100.4 76 16 136/65 97 05/09/16 08:00 76 05/09/16 07:44 30 05/09/16 07:44 97 30 05/09/16 06:00 72 05/09/16 04:00 100.8 72 17 119/61 97 05/09/16 04:00 30 05/09/16 04:00 72 05/09/16 03:25 97 30 05/09/16 02:00 73 05/09/16 00:50 100 30 05/09/16 00:00 69 05/09/16 00:00 30 05/09/16 00:00 100.0 69 17 104/57 98 05/08/16 22:38 99 30 05/08/16 22:00 72 05/08/16 20:18 100 30 05/08/16 20:00 72 05/08/16 20:00 100.0 73 22 106/51 99 05/08/16 20:00 30 Physical Exam GENERAL: Awake and alert despite intubation. No acute distress. Then. Critically ill. HEAD: Normocephalic. Atraumatic. EYES: Pupils equal round and reactive to light bilaterally. No scleral icterus. ENT: Dobbhoff tube, NG tube, NECK: Trachea midline and easily palpable. No scars present. CHEST: Ventilated via trach. 30% FiO2 and 5 of PEEP CARDIOVASCULAR: Regular rate and rhythm. ABDOMEN: Distended, tense. Tender in the epigastrium. SKIN: Warm, dry, nonjaundiced. Laboratory Laboratory Tests Test 05/09/16 05/09/16 04:55 14:40 White Blood Count 25.1 Red Blood Count 3.00 Hemoglobin 7.6 Hematocrit 23.3 Mean Corpuscular Volume 77.6 Mean Corpuscular Hemoglobin 25.2 Mean Corpuscular Hemoglobin 32.4 Concent Red Cell Distribution Width 17.1 Platelet Count 398 Mean Platelet Volume 9.7 Neutrophils (%) (Auto) 76.5 Lymphocytes (%) (Auto) 9.5 Monocytes (%) (Auto) 10.6 Eosinophils (%) (Auto) 2.7 Basophils (%) (Auto) 0.7 Neutrophils # (Auto) 19.2 Lymphocytes # (Auto) 2.4 Monocytes # (Auto) 2.7 Eosinophils # (Auto) 0.7 Basophils # (Auto) 0.2 CBC Comment AUTO DIFF Differential Total Cells 100 Counted Neutrophils % (Manual) 78 Band Neutrophils % 4 Lymphocytes % 5 Monocytes % 8 Eosinophils % 1 Neutrophils # (Manual) 21.6 Metamyelocytes 1 Myelocytes 3 Nucleated Red Blood Cells 1 Differential Comment FINAL DIFF MANUAL Platelet Estimate NORMAL Platelet Morphology Comment ENLARGED Target Cells 1+ Sodium Level 136 Potassium Level 2.8 3.3 Chloride Level 99 Carbon Dioxide Level 27.1 Anion Gap 10 Blood Urea Nitrogen 57 Creatinine 3.09 Estimat Glomerular Filtration 25 Rate Random Glucose 155 Calcium Level 8.8 Total Bilirubin 0.7 Aspartate Amino Transf 28 (AST/SGOT) Alanine Aminotransferase 10 (ALT/SGPT) Alkaline Phosphatase 84 Total Protein 6.1 Albumin 2.0 Date/Time Procedure Status Source Growth 05/08/16 04:50 Gram Stain - Final Resulted Sputum Endotracheal 05/08/16 04:50 Sputum Culture - Preliminary Resulted Staphylococcus Aureus 05/07/16 19:35 Aerobic Blood Culture - Preliminary Resulted Blood Peripheral NO GROWTH IN 2 DAYS 05/07/16 19:35 Anaerobic Blood Culture - Preliminary Resulted Blood Peripheral NO GROWTH IN 2 DAYS Result Diagram: 05/09/16 0455 05/09/16 1440 Assessment and Plan Assessment and Plan 65-year-old male critically ill with severe acute pancreatitis complicated by acute kidney injury and acute respiratory failure. He has had prolonged intubation and would benefit from tracheostomy. Plan to perform percutaneous tracheostomy at the bedside. I discussed the procedure in detail with the patient and his sons. He desires to proceed. We'll try to coordinate this for tomorrow. Rodolfo,Riley LOPEZ May 09, 2016 19:00
[2016-05-09] MEDS: CLINIMIX 4.25/25 (Cust.Renal Central) 1000 mL- </= 42 mls/hr IV-CENTRAL SCH ×8 (19:38)
[2016-05-10] VITALS (19 sets, daily range): BP systolic 107–130; BP diastolic 57–63; PULSE 74–92; RESP 16–22; TEMP 99–100.2; O2SAT 91–100
[2016-05-10] MEDS: fentaNYL DRIP 250 ML IV SCH ×3 (03:01→21:17)
[2016-05-10] MEDS: metroNIDAZOLE 500 MG TAB PO/NG SCH ×3 (03:37→15:33)
[2016-05-10] MEDS: CHLORHEXIDINE GLUCONATE 2 % 1 PACK (2 CLOTHS) TOP SCH (04:00)
[2016-05-10] MEDS: oxyCODONE HCL ORAL CONC 20 MG/ML SYRINGE PO SCH ×5 (04:46→20:00)
[2016-05-10] MEDS: ACETAMINOPHEN 650 MG/20.3 ML UDC PO PRN (05:12)
[2016-05-10 05:31] LABS: AUTOMATED NEUTROPHIL # 18.4 TH/MM3 (1.8-7.7); BASOPHIL # 0.1 TH/MM3 (0-0.2); BASOPHIL % 0.5 % (0.0-2.0); EOSINOPHIL # 0.4 TH/MM3 (0-0.4); EOSINOPHIL % 1.6 % (0.0-4.0); HEMATOCRIT 21.5 % (39.0-51.0); LYMPH % 10.5 % (9.0-44.0); LYMPHOCYTE # 2.6 TH/MM3 (1.0-4.8); MEAN CORPUSCULAR HEMOGLOBIN 25.4 PG (27.0-34.0); MEAN CORPUSCULAR HGB CONC 32.6 % (32.0-36.0); MONO % 11.9 % (0.0-8.0); NEUT % 75.5 % (16.0-70.0); PLATELET COUNT 392 TH/MM3 (150-450); RED BLOOD COUNT 2.75 MIL/MM3 (4.50-5.90); RED CELL DISTRIBUTION WIDTH 17.1 % (11.6-17.2); WHITE BLOOD COUNT 24.4 TH/MM3 (4.0-11.0)
[2016-05-10 05:35] LABS: HEMO FLAGS AUTO DIFF
[2016-05-10] MEDS: METOCLOPRAMIDE HCL 10 MG/2 ML VIAL IV PUSH SCH ×3 (05:49→20:21)
[2016-05-10 05:57] LABS: POTASSIUM 3.6 MEQ/L (3.5-5.1)
[2016-05-10 08:44] LABS: BANDS 9 % (0-6); BASOPHILS 1 % (0-2); EOSINOPHILS 2 % (0-4); NEUTROPHIL # MANUAL DIFF 21.2 TH/MM3 (1.8-7.7); PLATELET ESTIMATE SMEAR NORMAL (NORMAL); PLATELET MORPHOLOGY ENLARGED (NORMAL); POLYS (SEG NEUTROPHILS) 78 % (16-70); SCAN/DIFF FINAL DIFF MANUAL; WBC DIFF SAMPLE 100
[2016-05-10 08:45] LABS: TARGET CELLS 1+ (NORMAL)
--- NOTE | 2016-05-10 08:47 | HHI.NPPN ---
Subjective History of Present Illness 65 year old with Acute pancreatitis, ARF, Respiratory distress, now intubated on hemodialysis Additional Remarks Underwent dialysis Monday. Continues to have abdominal distension. Objective Data Data 05/09/16 05/10/16 19:00 07:00 Intake Total 733 ml 1389 ml Output Total 450 ml 800 ml Balance 283 ml 589 ml IV Total 353 ml 641 ml TPN/PPN 320 ml 658 ml Other 60 ml 90 ml Output Urine Total 350 ml 750 ml Gastric Drainage Total 100 ml 50 ml # Bowel Movements 0 Vital Signs Date Time Temp Pulse Resp B/P Pulse Ox O2 Delivery O2 Flow Rate FiO2 05/10/16 07:41 98 30 05/10/16 06:00 81 05/10/16 04:10 100 30 05/10/16 04:00 92 05/10/16 04:00 100.0 92 22 111/57 100 05/10/16 04:00 30 05/10/16 02:00 84 05/10/16 01:00 99 30 05/10/16 00:00 100.0 79 18 112/59 100 05/10/16 00:00 30 05/10/16 00:00 81 05/09/16 22:15 100 30 05/09/16 22:00 81 05/09/16 20:00 30 05/09/16 20:00 82 05/09/16 20:00 100.0 82 17 110/55 100 05/09/16 19:30 100 30 05/09/16 18:00 81 05/09/16 16:55 20 05/09/16 16:00 99.2 82 26 112/55 99 05/09/16 16:00 40 05/09/16 16:00 82 05/09/16 15:46 99 30 05/09/16 14:00 80 05/09/16 12:00 77 05/09/16 12:00 99.8 77 19 110/58 99 05/09/16 12:00 40 05/09/16 11:45 100 30 05/09/16 10:00 82 -: 05/10/16 0520 05/10/16 0520 Physical Exam General Appearance: Well Developed Neck Neck Exam: Neck Supple Pulmonary Resp Exam: Decreased Bases Cardiology CV Exam: Tachycardia Gastrointestinal/Abdomen GI Exam: Distended Integumentary Skin Exam: Dry, Intact Extremeties Extremities Exam: Moderate Edema Assessment/Plan Problem List: (1) Acute renal failure Plan: Patient has renal failure likely due to complications of pancreatitis and developed acute tubular necrosis now on hemodialysis with improving UOP. Laboratory cc and declining creatinine 2.43 we will hold dialysis k is replaced (2) Pancreatitis Plan: Severe pancreatitis with acute renal failure. Abdomen is distended. Has developed ileus. (3) Abdominal pain Plan: Distention due to pancreatitis (4) COPD exacerbation Plan: Continue treatment, on vent Problem Qualifiers (1) Acute renal failure: Qualified Code: N17.0 - Acute renal failure with tubular necrosis (2) Pancreatitis: Qualified Code: K85.20 - Alcohol-induced acute pancreatitis, unspecified complication status (3) Abdominal pain: Qualified Code: R10.12 - Left upper quadrant pain Janett Crane MD May 10, 2016 08:47
[2016-05-10] MEDS: AZTREONAM INJ 1,000 MG in SODIUM CHLORIDE 0.9% INJ 100 ML IV SCH ×2 (09:58→20:21)
[2016-05-10] MEDS: PANTOPRAZOLE SODIUM 40 MG VIAL IV SCH (09:58)
[2016-05-10] MEDS: CHLORHEXIDINE 0.12% (ORAL KIT) 15 ML CUP MT SCH ×2 (09:59→20:22)
[2016-05-10] MEDS: SODIUM CHLORIDE 0.9% FLUSH 5 ML FLUSH IV FLUSH SCH ×2 (09:59→20:22)
--- NOTE | 2016-05-10 10:20 | HHI.CCPN ---
Subjective Remarks/Hospital Course This is a 65-year-old male with history of COPD, strong alcohol abuse history, diabetes, questionable history of heart failure, coronary artery disease who initially presented to the emergency department 04/25 with abdominal pain and was found to have acute pancreatitis. He was noted to the hospital at that time. Over the subsequent 48 hours, he developed worsening hypoxia as well as an acute kidney injury. This was initially thought to be CHF exacerbation and volume overload. He was given diuretics without a good response. His creatinine has trended up to 6. Nephrology was consulted and are considering renal replacement therapy. Tonight throughout the night, the patient became more hypoxic and dyspneic with increasing oxygen requirement. He is transferred to the ICU for his acute hypoxic respiratory failure. The patient is nauseated and has vomited a few times. 04/28: Intubated for respiratory distress with hypoxemia, now with acceptable gas exchange. Tolerating dialysis, try to extubate shortly. 04/29: Abdomen much too distended for extubation. NG tube placed with Roman forceps. 04/30: Abdomen remains tensely distended. No peritoneal irritation. BS few. 05/01: Abdomen remains tensely distended. No peritoneal irritation. 05/02: Abdominal distention worse. Pain worse. Will get CT to look for perforation. 05/03: CT abdomen with rip-roaring inflammatory process involving the pancreas; much worse. Sputum with multiple organisms. Patient clinically more critically ill. 05/04: Will start TFs if OK with GI service. 05/05: Dobbhoff tube in stomach. Will try to advance to duodenum and avoid TPN if at all possible. 05/06: DHT not post-pyloric, will advance and get KUB in a.m. 05/07: Persistent low grade fever and leukocytosis. Ileus persists. Goal is to get intestinal motility restored, decompress abdomen, extubate, and transfer to son's area in [place] for long-term care. 05/08: Remains sedated, arousable, orally intubated on mechanical ventilation. 05/09: Sedated, arousable, orally intubated on mechanical ventilation. On TPN 05/10: Sedated, arousable, orally intubated on mechanical ventilation. Remains on TPN as Dobbhoff remains in stomach. Scheduled for percutaneous tracheostomy today. Awaiting G/J tube placement by GI. Objective Vital Signs Date Time Temp Pulse Resp B/P Pulse Ox O2 Delivery O2 Flow Rate FiO2 05/10/16 07:41 98 30 05/10/16 06:00 81 05/10/16 04:00 100.0 22 111/57 Intake and Output 05/09/16 05/09/16 05/10/16 08:00 16:00 00:00 Intake Total 738 ml 733 ml 752 ml Output Total 500 ml 450 ml 450 ml Balance 238 ml 283 ml 302 ml Result Diagram: 05/10/16 0520 05/10/16 0520 Other Results Microbiology Date/Time Procedure Status Source Growth 05/08/16 04:50 Gram Stain - Final Complete Sputum Endotracheal 05/08/16 04:50 Sputum Culture - Final Complete Staphylococcus Aureus Imaging Critical care bedside ultrasound 04/27: Grossly preserved left ventricular function. Normal RV size and function. Small collapsible IVC which very strongly with respirations and is almost completely flat with inspiration. No pericardial effusion. Objective Remarks GENERAL: Middle-aged male, calm on moderate sedation HEENT: Normocephalic. Atraumatic. NECK: Supple, orally intubated. CHEST: On mechanical ventilation, Scattered rhonchi, decreased BS bases. Good ling air movement. Copious secretions persist. CARDIOVASCULAR: Tachycardia, irregular rhythm. No murmurs. No JVD. ABDOMEN: Tensely distended, firm, generally tender to palpation, Occasional BS. MUSCULOSKELETAL: Trace peripheral edema. Warm, well perfused. NEUROLOGICAL: Opens eyes to voice. Tracks with eyes. Follows commands all 4 extremities. A/P Assessment and Plan Plan by systems: Neurologic: Alcohol abuse Metabolic encephalopathy Propofol and fentanyl for goal RASS Goal RASS -1. Daily sedation vacation - Needs minimal sedation Respiratory: Acute hypoxic respiratory failure ARDS COPD Low tidal volume ventilation turning 6 cc/kg ideal body weight Vent bundle Head of bed at 30 Wean FiO2 for goal SPO2 greater than 90% Nebs every 6 and every 2 when necessary -Acceptable gas exchange. Abdomen much too distended to allow comfortable unassisted ventilation. -Will need trach to facilitate pulmonary toilet and mobilization-consulted general surgery, scheduled for percutaneous tracheostomy 05/10. Cardiovascular: Sinus tachycardia SIRS response Continue telemetry SIRS likely 2/2 acute pancreatitis Renal: Acute kidney injury Likely has a component of prerenal, but also likely from acute pancreatitis Hardin catheter -- Strict I/Os, monitor and replete electro lites, follow BUN/creatinine -Continue HD. FEN/GI: Severe intravascular volume depletion Severe acute pancreatitis Severe hypocalcemia Metabolic acidosis Currently nothing by mouth. Dobbhoff tube placed however still in stomach. Would want Dobbhoff to be postpyloric to initiate tube feedings. TPN for nutrition started 05/07. OG tube to wall suction. Possible GJ tube by GI. Daily CMP, CBC Heme/ID: Leukocytosis Likely reactive secondary to acute pancreatitis Stool for C. difficile negative (05/08) Urine, sputum, blood cultures. ABX per ID service. Daily CBC ID - Leukocytosis with shift. Dr. Hercules ID service advising. Sputum 05/01 - Klebsiella, E. coli, Staph MSSA Endocrine: Diabetes -- SSI, medium scale, every 6 hours Prophylaxis: GI Prophylaxis Protonix 40 mg IV daily 24 hours DVT Prophylaxis -- SCDs Heparin 5000 every 12h Lines: 04/27 left radial arterial line 04/27 left subclavian triple-lumen catheter - discontinued. New central line placed right subclavian 05/07. Hard[place] Dr. Paulson had lengthy discussions with patient's son at bedside about the severity of his illness and poor prognosis. Overall impression: Marked abdominal distention persists with obstructive sounds and tenderness. Tolerates SBT but won't ventilate with severe abdominal distention. Enteral nutrition to start when DHT post-pyloric. New central line placed 05/07 in anticipation of requiring TPN. We'll consult general surgery for tracheostomy placement. Time spent on critical care excluding procedures 40 minutes Jorge Hercules MD May 10, 2016 10:20
[2016-05-10] MEDS ORDERED: MIDAZOLAM HCL 5 MG/5 ML VIAL IV ONE (11:00)
[2016-05-10] MEDS ORDERED: fentaNYL CITRATE 250 MCG/5 ML AMP IV ONE (11:00)
[2016-05-10] MEDS ORDERED: VECURONIUM BROMIDE 10 MG VIAL IV ONE (11:00)
--- NOTE | 2016-05-10 11:47 | PD.OP ---
Operative Report Date of Surgery: May 10, 2016 Preoperative Diagnosis: (1) Respiratory failure Postoperative Diagnosis: (1) Respiratory failure Procedure: Percutaneous tracheostomy Surgeon: Riley Reynolds Chef Kitchen Manager(s): Bronchoscopist Dr. Hercules Operation and Findings: EBL: 5 cc Procedure in detail: The patient remained in his intensive care unit bed. He was placed in supine position with the neck slightly hyperextended. The patient was administered sedative and paralytic medications per Dr. Hercules. The anterior neck was prepped and draped in usual sterile fashion. A 1 cm incision was made about 1 fingerbreadth superior to the sternal notch. Minimal blunt dissection was carried out. The bronchoscope was inserted down the endotracheal tube which was withdrawn past the site of the anticipated entry into the trachea. The large-bore needle and catheter were inserted through the anterior trachea and there was air aspirated into the syringe. The wire fed easily and this was also visualized via the bronchoscope. The tract was then serially dilated with the punch dilator and the Blue Rhino dilator. The Shiley #8 tracheostomy tube with guide was placed over the wire and easily entered the trachea. This was also visualized bronchoscopically. The bronchoscope was inserted down the trach tube and the position again confirmed. The cuff was inflated and the apparatus switched to the trach tube. There was adequate tidal volumes. The trach was sutured in place with 4 separate 2-0 Prolene sutures. A dressing and trach collar was applied. The patient tolerated procedure well and remained in his intensive care unit bed. Due to the relation of the trachea to the sternum the tracheostomy tube was placed fairly high near the first tracheal ring. Unfortunately, the first tracheal ring was basically adjacent to the upper sternum and gaining access to the third or fourth tracheal rings was not possible. Riley Reynolds MD May 10, 2016 11:47
--- NOTE | 2016-05-10 12:41 | HHI.IDPN ---
Subjective Subjective Remarks is a 65 y/o AAM with PMHx of COPD, CAD/CHF, DM, heavy alcohol abuse , Hepatitis C, pancreatitis in past. ID following for possible sepsis, acute pancreatitis and pneumonia. Overnight events reviewed with RN. Low grade fevers 100 F. Has new central line RSC On the vent Opens eyes when stimulated, follows commands and responds by nodding. WBC remains elevated Undergoing HD. Urine output has improved. Antibiotics Azactam IV flagyl diflucan Lines Line sites with no e/o infection Past Medical History reviewed Allergies: Coded Allergies: Penicillin (Verified Allergy, Severe, HIVES, 04/24/16) Objective . Vital Signs Date Time Temp Pulse Resp B/P Pulse Ox O2 Delivery O2 Flow Rate FiO2 05/10/16 12:00 92 40 05/10/16 11:00 100 100 05/10/16 07:41 98 30 05/10/16 06:00 81 05/10/16 04:10 100 30 05/10/16 04:00 92 05/10/16 04:00 100.0 92 22 111/57 100 05/10/16 04:00 30 05/10/16 02:00 84 05/10/16 01:00 99 30 05/10/16 00:00 100.0 79 18 112/59 100 05/10/16 00:00 30 05/10/16 00:00 81 05/09/16 22:15 100 30 05/09/16 22:00 81 05/09/16 20:00 30 05/09/16 20:00 82 05/09/16 20:00 100.0 82 17 110/55 100 05/09/16 19:30 100 30 05/09/16 18:00 81 05/09/16 16:55 20 05/09/16 16:00 99.2 82 26 112/55 99 05/09/16 16:00 40 05/09/16 16:00 82 05/09/16 15:46 99 30 05/09/16 14:00 80 05/09/16 05/09/16 05/10/16 15:00 23:00 07:00 Intake Total 733 ml 752 ml 637 ml Output Total 450 ml 450 ml 350 ml Balance 283 ml 302 ml 287 ml IV Total 353 ml 360 ml 281 ml TPN/PPN 320 ml 362 ml 296 ml Other 60 ml 30 ml 60 ml Output Urine Total 350 ml 400 ml 350 ml Gastric Drainage Total 100 ml 50 ml # Bowel Movements 0 . Laboratory Tests Test 05/09/16 05/10/16 04:55 05:20 White Blood Count 25.1 TH/MM3 24.4 TH/MM3 Red Blood Count 3.00 MIL/MM3 2.75 MIL/MM3 Hemoglobin 7.6 GM/DL 7.0 GM/DL Hematocrit 23.3 % 21.5 % Mean Corpuscular Volume 77.6 FL 78.0 FL Mean Corpuscular Hemoglobin 25.2 PG 25.4 PG Mean Corpuscular Hemoglobin 32.4 % 32.6 % Concent Red Cell Distribution Width 17.1 % 17.1 % Platelet Count 398 TH/MM3 392 TH/MM3 Mean Platelet Volume 9.7 FL 9.6 FL Neutrophils (%) (Auto) 76.5 % 75.5 % Lymphocytes (%) (Auto) 9.5 % 10.5 % Monocytes (%) (Auto) 10.6 % 11.9 % Eosinophils (%) (Auto) 2.7 % 1.6 % Basophils (%) (Auto) 0.7 % 0.5 % Neutrophils # (Auto) 19.2 TH/MM3 18.4 TH/MM3 Lymphocytes # (Auto) 2.4 TH/MM3 2.6 TH/MM3 Monocytes # (Auto) 2.7 TH/MM3 2.9 TH/MM3 Eosinophils # (Auto) 0.7 TH/MM3 0.4 TH/MM3 Basophils # (Auto) 0.2 TH/MM3 0.1 TH/MM3 CBC Comment AUTO DIFF AUTO DIFF Differential Total Cells 100 100 Counted Neutrophils % (Manual) 78 % 78 % Band Neutrophils % 4 % 9 % Lymphocytes % 5 % 3 % Monocytes % 8 % 7 % Eosinophils % 1 % 2 % Neutrophils # (Manual) 21.6 TH/MM3 21.2 TH/MM3 Metamyelocytes 1 % Myelocytes 3 % Nucleated Red Blood Cells 1 /100 WBC Differential Comment FINAL DIFF FINAL DIFF MANUAL MANUAL Platelet Estimate NORMAL NORMAL Platelet Morphology Comment ENLARGED ENLARGED Target Cells 1+ 1+ Basophils % 1 % Laboratory Tests Test 05/09/16 05/09/16 05/09/16 05/10/16 04:55 14:40 21:30 05:20 Sodium Level 136 MEQ/L 138 MEQ/L Potassium Level 2.8 MEQ/L 3.3 MEQ/L 3.5 MEQ/L 3.6 MEQ/L Chloride Level 99 MEQ/L 105 MEQ/L Carbon Dioxide Level 27.1 MEQ/L 25.0 MEQ/L Anion Gap 10 MEQ/L 8 MEQ/L Blood Urea Nitrogen 57 MG/DL 62 MG/DL Creatinine 3.09 MG/DL 2.43 MG/DL Estimat Glomerular Filtration 25 ML/MIN 33 ML/MIN Rate Random Glucose 155 MG/DL 157 MG/DL Calcium Level 8.8 MG/DL 8.9 MG/DL Total Bilirubin 0.7 MG/DL Aspartate Amino Transf 28 U/L (AST/SGOT) Alanine Aminotransferase 10 U/L (ALT/SGPT) Alkaline Phosphatase 84 U/L Total Protein 6.1 GM/DL Albumin 2.0 GM/DL Microbiology Date/Time Procedure Status Source Growth 05/07/16 13:30 Aerobic Blood Culture - Preliminary Resulted Blood Line NO GROWTH IN 3 DAYS 05/07/16 13:30 Anaerobic Blood Culture - Preliminary Resulted Blood Line NO GROWTH IN 3 DAYS 05/07/16 19:35 Aerobic Blood Culture - Preliminary Resulted Blood Peripheral NO GROWTH IN 3 DAYS 05/07/16 19:35 Anaerobic Blood Culture - Preliminary Resulted Blood Peripheral NO GROWTH IN 3 DAYS 05/08/16 04:50 Gram Stain - Final Complete Sputum Endotracheal 05/08/16 04:50 Sputum Culture - Final Complete Staphylococcus Aureus Imaging Abdomen X-Ray 05/07/16 0400 Signed Impressions: Service Date/Time: Saturday, May 07, 2016 05:03 - CONCLUSION: There are 2 tubes within the stomach. Jhonny Green MD Tube Placement X-Ray 05/05/16 0000 Signed Impressions: Service Date/Time: April 16:20 - CONCLUSION: Fluoroscopically guided nasogastric tube repositioning as above. Attempts were discontinued after multiple attempts with the tubing seen coiling within the patient's mouth region and proximal esophagus. Tessa Nichole MD Abdomen X-Ray 05/05/16 0000 Signed Impressions: Service Date/Time: April 13:42 - CONCLUSION: No evidence of obstruction. Stable placement of Dobbhoff tube and nasogastric tube. Tessa Nichole MD Abdomen/Pelvis CT 05/02/16 0000 Signed Impressions: Service Date/Time: Monday, May 02, 2016 15:43 - CONCLUSION: 1. The exam demonstrates extensive inflammatory change around the pancreas with fluid extending down into the paracolic gutters consistent with severe pancreatitis. This has significantly worsened when compared to previous dated 04/24/16. No organized pseudocyst is present. 2. NG tube and Hardin in good position. Seng Rollins MD Abdomen X-Ray 04/30/16 0000 Signed Impressions: Service Date/Time: Saturday, April 30, 2016 05:12 - CONCLUSION: No dilated loops of small bowel. Stable dilated transverse colon. Hubert Garcia MD Chest X-Ray 04/27/16 0000 Signed Impressions: Service Date/Time: Wednesday, April 27, 2016 10:28 - CONCLUSION: 1. Dialysis catheter in good position. 2. Increasing bibasilar parenchymal changes worse on the left. Kermit Rollins MD FACR Renal Ultrasound 04/25/16 0000 Signed Impressions: Service Date/Time: Monday, April 25, 2016 15:01 - CONCLUSION: No evidence of hydronephrosis. Tom Seals MD Physical Exam GENERAL: Opens eyes, on the vent, NAD SKIN: No rashes. Warm, improving edema HEAD: Atraumatic. Normocephalic. No temporal or scalp tenderness. EYES: Pupils equal round and reactive. No injection or drainage. ENT: Intubated. NECK: Trachea midline. Supple, nontender, no meningeal signs. CARDIOVASCULAR: Heart sounds audible. RESPIRATORY: Clear to auscultation. Breath sounds equal bilaterally with decrease in the bases. GASTROINTESTINAL: Abdomen distended, tenderness diffusely, hypoactive bowel sounds. MUSCULOSKELETAL: Extremities without clubbing, cyanosis. Pedal edema noted, improving. NEUROLOGICAL: Sedated. Opens eyes Psych could not be assessed IV line sites with no evidence of infection. Assessment & Plan Remarks Possible sepsis (source: likely intra abdominal and aspiration/Health care associated pneumonia. Reviewed other sources: CL and HD cath, Cath associated UTI. Severe acute pancreatitis as most likely cause of new SIRS. No pseudocyst no evidence of any abscess. - last CT worse MSSA and Kleb pneumo pneumonia. Persistent fevers: SIRS from underlying active pancreatitis. Acute resp failure on vent. Acute renal failure on Hemodialysis. Alcoholism Recs: Continue Azactam IV pt tolerating doses (noted PCN allergy as hives) Continue Levaquin IV Continue Flagyl oral (will help reduce fluid issues if tolerated) Continue Diflucan IV (for fungal intra abd sepsis/peritonitis) Follow new C/S Monitor progress Monitor alyssa maddox RN and CCM Bronch with not much secretions mostly oral. Sienna Hercules MD May 10, 2016 12:41
--- NOTE | 2016-05-10 12:49 | RADRPT ---
EXAM DATE/TIME: 05/10/2016 11:58 [facility] COMPARISON: CHEST SINGLE AP, May 08, 2016, 5:13. INDICATIONS : Status post Trach. MEDICAL HISTORY : Cardiovascular disease. Chronic obstructive pulmonary disease. Diabetes mellitus type 2. SURGICAL HISTORY : None. ENCOUNTER: Subsequent ACUITY: 2 weeks PAIN SCORE: Non-responsive. LOCATION: Bilateral chest FINDINGS: The support devices are in place. There is some interstitial infiltrates in the left lower lung. The right lung is grossly clear. The heart size is stable. There are no definite pleural effusions. There is no evidence of pneumothorax. The tracheostomy tube appears to be in good position. CONCLUSION: 1. Tracheostomy tube in good position. 2. No pneumothorax. Tom Seals MD on May 10, 2016 at 12:46 Board Certified Radiologist. This report was verified electronically.
--- NOTE | 2016-05-10 12:52 | HHI.GIFU ---
Subjective Remarks Resting in bed. Eyes open, nods to some questions, not consistently. Abdominal tenderness. Getting tracheostomy today. Will need feeding tube. ( Fernanda Zhang) Objective Vitals I&O Vital Signs Date Time Temp Pulse Resp B/P Pulse Ox O2 Delivery O2 Flow Rate FiO2 05/10/16 12:00 99.9 89 16 130/59 91 05/10/16 12:00 92 40 05/10/16 12:00 30 05/10/16 12:00 89 05/10/16 11:00 100 100 05/10/16 10:00 84 05/10/16 08:00 85 05/10/16 08:00 100.2 85 21 107/58 99 05/10/16 08:00 30 05/10/16 07:41 98 30 05/10/16 06:00 81 05/10/16 04:10 100 30 05/10/16 04:00 92 05/10/16 04:00 100.0 92 22 111/57 100 05/10/16 04:00 30 05/10/16 02:00 84 05/10/16 01:00 99 30 05/10/16 00:00 100.0 79 18 112/59 100 05/10/16 00:00 30 05/10/16 00:00 81 05/09/16 22:15 100 30 05/09/16 22:00 81 05/09/16 20:00 30 05/09/16 20:00 82 05/09/16 20:00 100.0 82 17 110/55 100 05/09/16 19:30 100 30 05/09/16 18:00 81 05/09/16 16:55 20 05/09/16 16:00 99.2 82 26 112/55 99 05/09/16 16:00 40 05/09/16 16:00 82 05/09/16 15:46 99 30 05/09/16 14:00 80 I/O 05/09/16 05/09/16 05/09/16 05/10/16 05/10/16 05/10/16 07:00 15:00 23:00 07:00 15:00 23:00 Intake Total 738 ml 733 ml 752 ml 637 ml Output Total 500 ml 450 ml 450 ml 350 ml Balance 238 ml 283 ml 302 ml 287 ml IV Total 334 ml 353 ml 360 ml 281 ml TPN/PPN 354 ml 320 ml 362 ml 296 ml Other 50 ml 60 ml 30 ml 60 ml Output Urine Total 400 ml 350 ml 400 ml 350 ml Gastric Drainage Total 100 ml 100 ml 50 ml # Bowel Movements 0 0 Laboratory Laboratory Tests Test 05/09/16 05/09/16 05/10/16 14:40 21:30 05:20 Potassium Level 3.3 3.5 3.6 White Blood Count 24.4 Red Blood Count 2.75 Hemoglobin 7.0 Hematocrit 21.5 Mean Corpuscular Volume 78.0 Mean Corpuscular Hemoglobin 25.4 Mean Corpuscular Hemoglobin 32.6 Concent Red Cell Distribution Width 17.1 Platelet Count 392 Mean Platelet Volume 9.6 Neutrophils (%) (Auto) 75.5 Lymphocytes (%) (Auto) 10.5 Monocytes (%) (Auto) 11.9 Eosinophils (%) (Auto) 1.6 Basophils (%) (Auto) 0.5 Neutrophils # (Auto) 18.4 Lymphocytes # (Auto) 2.6 Monocytes # (Auto) 2.9 Eosinophils # (Auto) 0.4 Basophils # (Auto) 0.1 CBC Comment AUTO DIFF Differential Total Cells 100 Counted Neutrophils % (Manual) 78 Band Neutrophils % 9 Lymphocytes % 3 Monocytes % 7 Eosinophils % 2 Basophils % 1 Neutrophils # (Manual) 21.2 Differential Comment FINAL DIFF MANUAL Platelet Estimate NORMAL Platelet Morphology Comment ENLARGED Target Cells 1+ Sodium Level 138 Chloride Level 105 Carbon Dioxide Level 25.0 Anion Gap 8 Blood Urea Nitrogen 62 Creatinine 2.43 Estimat Glomerular Filtration 33 Rate Random Glucose 157 Calcium Level 8.9 Date/Time Procedure Status Source Growth 05/08/16 04:50 Gram Stain - Final Complete Sputum Endotracheal 05/08/16 04:50 Sputum Culture - Final Complete Staphylococcus Aureus 05/07/16 19:35 Aerobic Blood Culture - Preliminary Resulted Blood Peripheral NO GROWTH IN 3 DAYS 05/07/16 19:35 Anaerobic Blood Culture - Preliminary Resulted Blood Peripheral NO GROWTH IN 3 DAYS Imaging Last Impressions Abdomen X-Ray 05/09/16 0900 Signed Impressions: Service Date/Time: Monday, May 09, 2016 09:02 - CONCLUSION: 2 tubes in the stomach one nasogastric one Dobbhoff both terminate in the distal body or antrum of the stomach Braden Larson MD Chest X-Ray 05/08/16 0000 Signed Impressions: Service Date/Time: Sunday, May 08, 2016 05:13 - CONCLUSION: No significant change has occurred. Jhonny Green MD Abdomen/Pelvis CT 05/07/16 0000 Signed Impressions: Service Date/Time: Saturday, May 07, 2016 20:15 - CONCLUSION: Stable severe inflammatory change in the upper abdomen obscuring the pancreas, characteristic of severe pancreatitis. There is also fluid tracking down the right paracolic gutter. Overall, the appearance and severity is unchanged from 05/02/16. Hubert Garcia MD Tube Placement X-Ray 05/05/16 0000 Signed Impressions: Service Date/Time: April 16:20 - CONCLUSION: Fluoroscopically guided nasogastric tube repositioning as above. Attempts were discontinued after multiple attempts with the tubing seen coiling within the patient's mouth region and proximal esophagus. Tessa Nichole MD Renal Ultrasound 04/25/16 0000 Signed Impressions: Service Date/Time: Monday, April 25, 2016 15:01 - CONCLUSION: No evidence of hydronephrosis. Tom Seals MD Physical Exam HEENT: Normocephalic; atraumatic; no jaundice. CHEST: Rhonchi. OETT to CPAP CARDIAC: RRR ABDOMEN: Soft, distended, diffuse tenderness, bowel sounds are hypoactive. + BM EXTREMITIES: Generalized edema. AUTO ADJUDICATION SPECIALIST: Lethargic, awake. (Fernanda Zhang) Assessment and Plan Plan ASSESSMENT: - Severe pancreatitis (acute on chronic), with heavy alcohol intake about [address] Abdomen and pelvis (04/24/16)---> Inflammatory stranding in and around the pancreas suggestive of pancreatitis without any focal areas of necrosis or pseudocyst formation. Mildly fatty liver. Rpt. CT Scan abdomen and pelvis Without IV contrast (05/02/16)-----> exam demonstrates extensive inflammatory change around the pancreas with fluid extending down into the paracolic gutters consistent with severe pancreatitis. This has significantly worsened when compared to the previous stated 04/24/16. No organized pseudocyst is present. Pt with persistent leukocytosis WBC 24.4. LFT stable. Radiology was not able to advance Dobhoff. Will ask IR to place G/J tube. TPN. - Ileus/vs obstruction. KUB (05/09/16)----> 2 tubes in the stomach one nasogastric one Dobbhoff both terminate in the distal body or antrum of the stomach. - Persistent Leukocytosis. Flagyl, Diflucan, Azactam, Levaquin, - Anemia. 7.0/21.5 - ARF. HD per nephrology - Hep-c (+)- not sure if he had tx or not, he is not a candidate due to drinking behavior - Acute respiratory failure - per CCM - DM, COPD per CCM Plan: - NPO - Consult IR for G/J tube placement - TPN Clinimax Renal Formula at 70cc/hr - Once G/J tube placed and cleared to use by IR, then start TF via J tube and start to wean TPN - Monitor labs - Abx per ID - CCM following - [employer] following - Supportive care - Further recommendations to follow based on results of above - PT seen and examined by Dr. Vogt and myself and this note is written on his behalf (Fernanda Zhang) Physician Comments Patient seen and examined Agree with above Continue with current supportive care Monitor labs Recommend GJ tube (Joaquín Vogt MD) Fernanda Zhang May 10, 2016 12:52 Joaquín Vogt MD May 10, 2016 22:25
--- NOTE | 2016-05-10 14:53 | EKG ---
Date Performed: 05/09/2016 Time Performed: 11:34:28 PTAGE: 65 years EKG: Sinus rhythm with PVC(s) Poor R wave progression - probable normal variant Compared to the previous tracing, pat ient has developed PVCs but when allowing for the artifact on present tracing there is no overt seria l change. Repeat tracing advised. Borderline ECG PREVIOUS TRACING :04/26/16 DOCTOR: Corina Santos Interpretating Date/Time 05/10/2016 14:52:18
[2016-05-10] MEDS: FLUCONAZOLE 200 MG PREMIX BAG 100 ML IV SCH (16:36)
[2016-05-10] MEDS: CLINIMIX 4.25/25 (Cust.Renal Central) 1000 mL- </= 42 mls/hr IV-CENTRAL SCH ×8 (20:20)
[2016-05-11] VITALS (23 sets, daily range): BP systolic 102–149; BP diastolic 55–73; PULSE 68–95; RESP 13–23; TEMP 98.8–102.8; O2SAT 94–100
[2016-05-11] MEDS: metroNIDAZOLE 500 MG TAB PO/NG SCH ×2 (01:03→10:00)
[2016-05-11 03:21] LABS: AUTOMATED NEUTROPHIL # 18.7 TH/MM3 (1.8-7.7); BASOPHIL # 0.2 TH/MM3 (0-0.2); BASOPHIL % 0.7 % (0.0-2.0); EOSINOPHIL # 0.7 TH/MM3 (0-0.4); EOSINOPHIL % 2.8 % (0.0-4.0); LYMPH % 5.7 % (9.0-44.0); LYMPHOCYTE # 1.4 TH/MM3 (1.0-4.8); MEAN CELL VOLUME 77.9 FL (80.0-100.0); MEAN CORPUSCULAR HEMOGLOBIN 25.5 PG (27.0-34.0); MEAN CORPUSCULAR HGB CONC 32.7 % (32.0-36.0); MONO % 12.6 % (0.0-8.0); NEUT % 78.2 % (16.0-70.0); PLATELET COUNT 431 TH/MM3 (150-450); RED CELL DISTRIBUTION WIDTH 17.1 % (11.6-17.2); WHITE BLOOD COUNT 23.8 TH/MM3 (4.0-11.0)
[2016-05-11 03:23] LABS: HEMO FLAGS AUTO DIFF
[2016-05-11 03:43] LABS: ALKALINE PHOSPHATASE 70 U/L (45-117); ALT (GPT) 11 U/L (12-78); ANION GAP 7 MEQ/L (5-15); AST (GOT) 29 U/L (15-37); BICARBONATE 26.1 MEQ/L (21.0-32.0); BLOOD UREA NITROGEN 61 MG/DL (7-18); CHLORIDE 107 MEQ/L (98-107); GLOMERULAR FILTRATION RATE 46 ML/MIN (>89); POTASSIUM 3.6 MEQ/L (3.5-5.1); SODIUM (NA) 140 MEQ/L (136-145); TOTAL BILIRUBIN ADULT 0.6 MG/DL (0.2-1.0)
[2016-05-11] MEDS: oxyCODONE HCL ORAL CONC 20 MG/ML SYRINGE PO SCH ×6 (04:00→20:29)
[2016-05-11] MEDS: CHLORHEXIDINE GLUCONATE 2 % 1 PACK (2 CLOTHS) TOP SCH (04:00)
[2016-05-11] MEDS: METOCLOPRAMIDE HCL 10 MG/2 ML VIAL IV PUSH SCH ×3 (04:18→21:54)
[2016-05-11 05:28] LABS: BANDS 10 % (0-6); BASOPHILS 1 % (0-2); EOSINOPHILS 3 % (0-4); METAMYELOCYTES 5 % (0-1); MYELOCYTES 1 % (0-0); NEUTROPHIL # MANUAL DIFF 18.8 TH/MM3 (1.8-7.7); POLYS (SEG NEUTROPHILS) 63 % (16-70); SCAN/DIFF FINAL DIFF MANUAL; TOXIC GRANULATION 1+ (NORMAL); WBC DIFF SAMPLE 100
[2016-05-11] MEDS: AZTREONAM INJ 1,000 MG in SODIUM CHLORIDE 0.9% INJ 100 ML IV SCH (08:11)
[2016-05-11] MEDS: PANTOPRAZOLE SODIUM 40 MG VIAL IV SCH (08:12)
[2016-05-11] MEDS: SODIUM CHLORIDE 0.9% FLUSH 5 ML FLUSH IV FLUSH SCH ×2 (08:12→20:30)
[2016-05-11] MEDS: CHLORHEXIDINE 0.12% (ORAL KIT) 15 ML CUP MT SCH ×2 (08:12→20:00)
--- NOTE | 2016-05-11 09:28 | HHI.NPPN ---
Subjective History of Present Illness 65 year old with Acute pancreatitis, ARF, Respiratory distress, now intubated on hemodialysis Additional Remarks Underwent dialysis Monday. Continues to have abdominal distension. Dialysis stopped as UOP improved, s/p Tarch Objective Data Data 05/10/16 05/11/16 19:00 07:00 Intake Total 685 ml 1233 ml Output Total 450 ml 875 ml Balance 235 ml 358 ml IV Total 302 ml 653 ml TPN/PPN 383 ml 580 ml Output Urine Total 450 ml 875 ml # Bowel Movements 0 1 Vital Signs Date Time Temp Pulse Resp B/P Pulse Ox O2 Delivery O2 Flow Rate FiO2 05/11/16 07:38 99 30 05/11/16 07:38 30 05/11/16 06:00 82 05/11/16 06:00 100 30 05/11/16 04:00 100.8 82 22 134/64 100 05/11/16 04:00 82 05/11/16 04:00 30 05/11/16 03:39 100 40 05/11/16 02:00 75 05/11/16 00:00 30 05/11/16 00:00 68 05/11/16 00:00 99.5 68 22 102/55 100 05/10/16 22:05 100 40 05/10/16 22:00 78 05/10/16 20:00 100.0 78 22 124/63 99 05/10/16 20:00 30 05/10/16 20:00 78 05/10/16 19:05 98 40 05/10/16 18:00 74 05/10/16 16:29 100 40 05/10/16 16:00 99.0 80 19 126/59 100 05/10/16 16:00 30 05/10/16 16:00 80 05/10/16 14:00 82 05/10/16 12:00 99.9 89 16 130/59 91 05/10/16 12:00 92 40 05/10/16 12:00 30 05/10/16 12:00 89 05/10/16 11:00 100 100 05/10/16 10:00 84 -: 05/11/16 0308 05/11/16 0308 Physical Exam General Appearance: Well Developed Neck Neck Exam: Neck Supple Pulmonary Resp Exam: Decreased Bases Cardiology CV Exam: Tachycardia Gastrointestinal/Abdomen GI Exam: Distended Integumentary Skin Exam: Dry, Intact Extremeties Extremities Exam: Moderate Edema Assessment/Plan Problem List: (1) Acute renal failure Plan: Patient has renal failure likely due to complications of pancreatitis and developed acute tubular necrosis now on hemodialysis with improving UOP. cr 1.81 remove vascath may need PRBC Nephrology to see PRN bases (2) Pancreatitis Plan: Severe pancreatitis with acute renal failure this resolved today Cr 1.81 Abdomen is distended. Has developed ileus. (3) Abdominal pain Plan: Distention due to pancreatitis (4) COPD exacerbation Plan: Continue treatment, on vent Problem Qualifiers (1) Acute renal failure: Qualified Code: N17.0 - Acute renal failure with tubular necrosis (2) Pancreatitis: Qualified Code: K85.20 - Alcohol-induced acute pancreatitis, unspecified complication status (3) Abdominal pain: Qualified Code: R10.12 - Left upper quadrant pain Janett Crane MD May 11, 2016 09:28
[2016-05-11] MEDS ORDERED: ACETAMINOPHEN 1000 MG/100 ML VIAL IV PRN (09:30)
--- NOTE | 2016-05-11 09:35 | HHI.CCPN ---
Subjective Remarks/Hospital Course This is a 65-year-old male with history of COPD, strong alcohol abuse history, diabetes, questionable history of heart failure, coronary artery disease who initially presented to the emergency department 04/25 with abdominal pain and was found to have acute pancreatitis. He was noted to the hospital at that time. Over the subsequent 48 hours, he developed worsening hypoxia as well as an acute kidney injury. This was initially thought to be CHF exacerbation and volume overload. He was given diuretics without a good response. His creatinine has trended up to 6. Nephrology was consulted and are considering renal replacement therapy. Tonight throughout the night, the patient became more hypoxic and dyspneic with increasing oxygen requirement. He is transferred to the ICU for his acute hypoxic respiratory failure. The patient is nauseated and has vomited a few times. 04/28: Intubated for respiratory distress with hypoxemia, now with acceptable gas exchange. Tolerating dialysis, try to extubate shortly. 04/29: Abdomen much too distended for extubation. NG tube placed with Roman forceps. 04/30: Abdomen remains tensely distended. No peritoneal irritation. BS few. 05/01: Abdomen remains tensely distended. No peritoneal irritation. 05/02: Abdominal distention worse. Pain worse. Will get CT to look for perforation. 05/03: CT abdomen with rip-roaring inflammatory process involving the pancreas; much worse. Sputum with multiple organisms. Patient clinically more critically ill. 05/04: Will start TFs if OK with GI service. 05/05: Dobbhoff tube in stomach. Will try to advance to duodenum and avoid TPN if at all possible. 05/06: DHT not post-pyloric, will advance and get KUB in a.m. 05/07: Persistent low grade fever and leukocytosis. Ileus persists. Goal is to get intestinal motility restored, decompress abdomen, extubate, and transfer to son's area in [place] for long-term care. 05/08: Remains sedated, arousable, orally intubated on mechanical ventilation. 05/09: Sedated, arousable, orally intubated on mechanical ventilation. On TPN 05/10: Sedated, arousable, orally intubated on mechanical ventilation. Remains on TPN as Dobbhoff remains in stomach. Scheduled for percutaneous tracheostomy today. Awaiting G/J tube placement by GI. 05/11: plan for g/j today. getting 2 units prbc for hgb 6.9. s/p trach yesterday. Objective Vital Signs Date Time Temp Pulse Resp B/P Pulse Ox O2 Delivery O2 Flow Rate FiO2 05/11/16 07:38 99 30 05/11/16 06:00 82 05/11/16 04:00 100.8 22 134/64 Intake and Output 05/10/16 05/10/16 05/11/16 08:00 16:00 00:00 Intake Total 637 ml 685 ml 547 ml Output Total 350 ml 450 ml 450 ml Balance 287 ml 235 ml 97 ml Result Diagram: 05/11/16 0308 05/11/16 0308 Imaging Critical care bedside ultrasound 04/27: Grossly preserved left ventricular function. Normal RV size and function. Small collapsible IVC which very strongly with respirations and is almost completely flat with inspiration. No pericardial effusion. Objective Remarks GENERAL: Middle-aged male, calm on moderate sedation HEENT: Normocephalic. Atraumatic. NECK: Supple, orally intubated. CHEST: On mechanical ventilation, Scattered rhonchi, decreased BS bases. Good ling air movement. Copious secretions persist. CARDIOVASCULAR: normal rate, regular rhythm. No murmurs. No JVD. ABDOMEN: Tensely distended, firm, generally tender to palpation, Occasional BS. MUSCULOSKELETAL: Trace peripheral edema. Warm, well perfused. NEUROLOGICAL: Opens eyes to voice. Tracks with eyes. Follows commands all 4 extremities. A/P Assessment and Plan Plan by systems: Neurologic: Alcohol abuse Metabolic encephalopathy Pain associated with acute pancreatitis fentanyl for goal RASS Goal RASS -1. Daily sedation vacation - Needs minimal sedation - oxycodone on hold due to no gastric access. will give one-time dose of methadone for pain. - will add iv tylenol 1gm q8h prn for pain or fever. Respiratory: Acute hypoxic respiratory failure ARDS COPD Low tidal volume ventilation turning 6 cc/kg ideal body weight Vent bundle Head of bed at 30 Wean FiO2 for goal SPO2 greater than 90% Nebs every 6 and every 2 when necessary -attempt trach collar trials today. - oob to stretcher chair today and daily. Cardiovascular: Sinus tachycardia SIRS response Continue telemetry SIRS likely 2/2 acute pancreatitis Renal: Acute kidney injury- improving. Likely has a component of prerenal, but also likely from acute pancreatitis Hardin catheter -- Strict I/Os, monitor and replete electro lites, follow BUN/creatinine - per nephrology, remove vas cath today. renal function slowly improving. FEN/GI: Severe intravascular volume depletion Severe acute pancreatitis Severe hypocalcemia Metabolic acidosis Currently nothing by mouth. TPN for nutrition started 05/07. OG tube to wall suction. GJ tube today Daily CMP, CBC Heme/ID: Leukocytosis Anemia secondary to acute blood loss and critical illness Likely reactive secondary to acute pancreatitis Stool for C. difficile negative (05/08) Urine, sputum, blood cultures. ABX per ID service. Daily CBC - 2 units prbc today. recheck h&h. ID - Leukocytosis with shift. Dr. Hercules ID service advising. Sputum 05/01 - Klebsiella, E. coli, Staph MSSA Endocrine: Diabetes -- SSI, medium scale, every 6 hours Prophylaxis: GI Prophylaxis Protonix 40 mg IV daily 24 hours DVT Prophylaxis -- SCDs Heparin 5000 every 12h Lines: 04/27 left subclavian triple-lumen catheter - discontinued. New central line placed right subclavian 05/07. Wilfred Paulson had lengthy discussions with patient's son at bedside about the severity of his illness and poor prognosis. Overall impression: Marked abdominal distention persists. Tolerates SBT but won' t ventilate with severe abdominal distention. Enteral nutrition to start when post-pyloric access. Time spent on critical care excluding procedures 37 minutes Dakota Sanchez MD May 11, 2016 09:35
[2016-05-11] MEDS ORDERED: METHADONE 10 MG/ML VIAL IV PUSH ONE (10:00)
[2016-05-11] MEDS: LEVOFLOXACIN 500 MG PREMIX INJ 100 ML IV SCH (11:53)
[2016-05-11] MEDS ORDERED: EPINEPHrine HCL (1:10,000) 1 MG/10 ML SYRINGE ONE (12:50)
[2016-05-11] MEDS ORDERED: LIDOCAINE HCL 2% 100 MG/5 ML SYRINGE ONE (12:50)
[2016-05-11] MEDS ORDERED: ATROPINE SULFATE 1 MG/10 ML SYRINGE ONE (12:50)
[2016-05-11 13:10] LABS: HEMATOCRIT 24.1 % (39.0-51.0); REVIEW FLAG FINAL
[2016-05-11] MEDS ORDERED: GLUCAGON 1 MG/ML VIAL ONE (13:28)
[2016-05-11] MEDS ORDERED: fentaNYL CITRATE 250 MCG/5 ML AMP ONE (13:28)
[2016-05-11] MEDS ORDERED: MIDAZOLAM HCL 2 MG/2 ML VIAL ONE ×2 (13:28→14:00)
--- NOTE | 2016-05-11 14:19 | PD.RAD ---
Post Procedure Progress Note Pre Procedure Diagnosis: (1) Pancreatitis Post Procedure Diagnosis: (1) Pancreatitis Procedure Date: May 11, 2016 Supervising Radiologist: El Santiago Proceduralist/Assist: Jemal Constantino, RT(R), Elizabeth Felton RT(R)() Anesthesia: Conscious Sedation Plan of Activity Patient to Unit: Critical Care Patient Condition: Poor See PACS Report for procedural detail/treatment Feeding Tube Gastro/Jejunostomy Placement El Santiago MD May 11, 2016 14:19
[2016-05-11] MEDS ORDERED: IOHEXOL 350 MG/ML 50 ML BTL (for RAD DIAG) G-TUBE ONE (14:40)
--- NOTE | 2016-05-11 15:24 | RADRPT ---
EXAM DATE/TIME: 05/11/2016 13:49 [facility] COMPARISON: No previous studies available for comparison. INDICATIONS : Patient presents with acute pancreatitis in need of gastrostomy tube placement for nutrition. MEDICAL HISTORY : COPD HTN DM seizure disorder gout history of pancreatitis Congestive heart failure?-January 2014, echocardiogram showed Atrial fibrillation? Past Surgical History Appendectomy Bone Spur resection from right arm Colonoscopy 2013 with AVMs in colon, hemorrhoids, polyps SURGICAL HISTORY : COPD HTN DM seizure disorder gout history of pancreatitis Congestive heart failure?-January 2014, echocardiogram showed Atrial fibrillation? Past Surgical History Appendectomy Bone Spur resection from right arm Colonoscopy 2013 with AVMs in colon, hemorrhoids, polyps ENCOUNTER: Initial ACUITY: 2 weeks PAIN SCORE: Nonresponsive. LOCATION: N/A. Patient on vent. FLUORO TIME: 7.3 minutes SEDATION TIME: 45 minutes CONTRAST: 25 cc Omnipaque (iohexol) 350 MEDICATION(S): 1.) 4 mg midazolam (Versed) IV 2.) 100 mcg Fentanyl (Sublimaze) IV DEVICE(S): 1.) 22 Fr Transgastric tube PROCEDURE : 1. Limited abdominal ultrasound. 2. Fluoroscopically guided gastrojejunostomy tube placement. 3. Conscious sedation with continuous EKG and oximetry monitoring. The risks, benefits and alternatives to the procedure were explained and verbal and written consent w as obtained. The site was prepped in sterile fashion. Full sterile technique was used, including ca p, mask, sterile gloves and gown and a large sterile sheet. Hand hygiene and 2% chlorhexidine and/or betadine/alcohol prep was utilized per protocol for cutaneous antisepsis. The skin and subcutaneous tissues were infiltrated with local anesthetic solution. Ultrasound was used to dee dee the position of the liver. 1 mg of Glucagon was administered. The stoma ch was insufflated with room air using. Three percutaneous fasteners were placed to secure the anteri or gastric wall. A small incision was made between the fasteners. The stomach was accessed with an 18 gauge needle. A n 0.035 wire was advanced into the small bowel. The tract was dilated. The gastrojejunostomy tube w as introduced through a peel-away sheath. The position was confirmed with an injection of contrast in both the gastric and jejunal lumens. Conscious sedation was performed with the prescribed dosages and duration as above. The patient dewayne ated the procedure well and there were no complications. EKG and oximetry remained stable throughout the procedure. The patient was sent to post anesthesia recovery in stable condition. CONCLUSION: Uncomplicated gastrojejunostomy tube placement as above. El Santiago MD on May 11, 2016 at 15:22 Board Certified Radiologist. This report was verified electronically.
--- NOTE | 2016-05-11 15:57 | HHI.GIFU ---
Subjective Remarks Resting in bed. Had G/J tube placed. Persistent fevers/leukocytosis. Diffuse tenderness. (Fernanda Zhang) Objective Vitals I&O Vital Signs Date Time Temp Pulse Resp B/P Pulse Ox O2 Delivery O2 Flow Rate FiO2 05/11/16 12:40 100 100 05/11/16 12:00 30 05/11/16 12:00 100.6 83 14 149/73 96 05/11/16 12:00 83 05/11/16 11:11 98 30 05/11/16 11:05 100.8 85 23 147/69 98 05/11/16 10:50 100.8 84 20 131/65 98 05/11/16 10:35 100.8 81 19 131/65 98 05/11/16 10:20 100.9 83 23 127/61 97 05/11/16 10:05 101.1 95 22 122/58 97 05/11/16 10:00 84 05/11/16 08:00 89 05/11/16 08:00 30 05/11/16 08:00 102.8 89 16 112/56 98 05/11/16 07:38 99 30 05/11/16 07:38 30 05/11/16 06:00 82 05/11/16 06:00 100 30 05/11/16 04:00 100.8 82 22 134/64 100 05/11/16 04:00 82 05/11/16 04:00 30 05/11/16 03:39 100 40 05/11/16 02:00 75 05/11/16 00:00 30 05/11/16 00:00 68 05/11/16 00:00 99.5 68 22 102/55 100 05/10/16 22:05 100 40 05/10/16 22:00 78 05/10/16 20:00 100.0 78 22 124/63 99 05/10/16 20:00 30 05/10/16 20:00 78 05/10/16 19:05 98 40 05/10/16 18:00 74 05/10/16 16:29 100 40 05/10/16 16:00 99.0 80 19 126/59 100 05/10/16 16:00 30 05/10/16 16:00 80 I/O 1/31/17 1/3105/10/16 05/11/16 05/11/16 05/11/16 07:00 15:00 23:00 07:00 15:00 23:00 Intake Total 637 ml 685 ml 547 ml 686 ml Output Total 350 ml 450 ml 450 ml 425 ml Balance 287 ml 235 ml 97 ml 261 ml IV Total 281 ml 302 ml 295 ml 358 ml TPN/PPN 296 ml 383 ml 252 ml 328 ml Other 60 ml Output Urine Total 350 ml 450 ml 450 ml 425 ml # Bowel Movements 0 0 1 Laboratory Laboratory Tests Test 05/11/16 05/11/16 05/11/16 05/11/16 03:08 06:10 08:28 13:00 White Blood Count 23.8 Red Blood Count 2.70 Hemoglobin 6.9 8.0 Hematocrit 21.0 24.1 Mean Corpuscular Volume 77.9 Mean Corpuscular Hemoglobin 25.5 Mean Corpuscular Hemoglobin 32.7 Concent Red Cell Distribution Width 17.1 Platelet Count 431 Mean Platelet Volume 9.6 Neutrophils (%) (Auto) 78.2 Lymphocytes (%) (Auto) 5.7 Monocytes (%) (Auto) 12.6 Eosinophils (%) (Auto) 2.8 Basophils (%) (Auto) 0.7 Neutrophils # (Auto) 18.7 Lymphocytes # (Auto) 1.4 Monocytes # (Auto) 3.0 Eosinophils # (Auto) 0.7 Basophils # (Auto) 0.2 CBC Comment AUTO DIFF Differential Total Cells 100 Counted Neutrophils % (Manual) 63 Band Neutrophils % 10 Lymphocytes % 8 Monocytes % 9 Eosinophils % 3 Basophils % 1 Neutrophils # (Manual) 18.8 Metamyelocytes 5 Myelocytes 1 Differential Comment FINAL DIFF MANUAL Toxic Granulation 1+ Sodium Level 140 Potassium Level 3.6 Chloride Level 107 Carbon Dioxide Level 26.1 Anion Gap 7 Blood Urea Nitrogen 61 Creatinine 1.81 Estimat Glomerular Filtration 46 Rate Random Glucose 129 Calcium Level 8.7 Total Bilirubin 0.6 Aspartate Amino Transf 29 (AST/SGOT) Alanine Aminotransferase 11 (ALT/SGPT) Alkaline Phosphatase 70 Total Protein 5.8 Albumin 1.8 Blood Type O POSITIVE O POSITIVE Antibody Screen NEGATIVE Crossmatch Leukocyte-Reduced Red Blood Cells Blood Bank Comment Date/Time Procedure Status Source Growth 05/08/16 04:50 Gram Stain - Final Complete Sputum Endotracheal 05/08/16 04:50 Sputum Culture - Final Complete Staphylococcus Aureus 05/07/16 19:35 Aerobic Blood Culture - Preliminary Resulted Blood Peripheral NO GROWTH IN 4 DAYS 05/07/16 19:35 Anaerobic Blood Culture - Preliminary Resulted Blood Peripheral NO GROWTH IN 4 DAYS Imaging Last Impressions Gastrostomy Tube Placement 05/11/16 0000 Signed Impressions: Service Date/Time: Wednesday, May 11, 2016 13:49 - CONCLUSION: Uncomplicated gastrojejunostomy tube placement as above. El Santiago MD Chest X-Ray 05/10/16 0000 Signed Impressions: Service Date/Time: Tuesday, May 10, 2016 11:58 - CONCLUSION: 1. Tracheostomy tube in good position. 2. No pneumothorax. Tom Seals MD Abdomen X-Ray 05/09/16 0900 Signed Impressions: Service Date/Time: Monday, May 09, 2016 09:02 - CONCLUSION: 2 tubes in the stomach one nasogastric one Dobbhoff both terminate in the distal body or antrum of the stomach Braden Larson MD Abdomen/Pelvis CT 05/07/16 0000 Signed Impressions: Service Date/Time: Saturday, May 07, 2016 20:15 - CONCLUSION: Stable severe inflammatory change in the upper abdomen obscuring the pancreas, characteristic of severe pancreatitis. There is also fluid tracking down the right paracolic gutter. Overall, the appearance and severity is unchanged from 05/02/16. Hubert Garcia MD Tube Placement X-Ray 05/05/16 0000 Signed Impressions: Service Date/Time: April 16:20 - CONCLUSION: Fluoroscopically guided nasogastric tube repositioning as above. Attempts were discontinued after multiple attempts with the tubing seen coiling within the patient's mouth region and proximal esophagus. Tessa Nichole MD Renal Ultrasound 04/25/16 0000 Signed Impressions: Service Date/Time: Monday, April 25, 2016 15:01 - CONCLUSION: No evidence of hydronephrosis. Tom Seals MD Physical Exam HEENT: Normocephalic; atraumatic; no jaundice. CHEST: Rhonchi. Tracheostomy to vent CARDIAC: RRR ABDOMEN: Soft, distended, diffuse tenderness, bowel sounds are hypoactive. + BM EXTREMITIES: Generalized edema. BATTERY CHARGER CONVEYOR LINE: Lethargic, awake. (Fernanda Zhang) Assessment and Plan Plan ASSESSMENT: - Severe pancreatitis (acute on chronic), with heavy alcohol intake about [address] Abdomen and pelvis (04/24/16)---> Inflammatory stranding in and around the pancreas suggestive of pancreatitis without any focal areas of necrosis or pseudocyst formation. Mildly fatty liver. Rpt. CT Scan abdomen and pelvis Without IV contrast (05/02/16)-----> exam demonstrates extensive inflammatory change around the pancreas with fluid extending down into the paracolic gutters consistent with severe pancreatitis. This has significantly worsened when compared to the previous stated 04/24/16. No organized pseudocyst is present. Pt with persistent leukocytosis WBC 23.8 and fevers. LFT stable. S /P G/J tube. TPN. Will start TF 4 hours after G/J per IR orders. Will wean TPN once TF at [facility]. - Ileus/vs obstruction. KUB (05/09/16)----> 2 tubes in the stomach one nasogastric one Dobbhoff both terminate in the distal body or antrum of the stomach. CT will be done today, will evaluate with this - Persistent Fever/Leukocytosis. Flagyl, Diflucan, Azactam, Levaquin, D/W ID, Rpt. CT abdomen/pelvis without IV contrast - Anemia. 8.0/24.1 - ARF. HD per nephrology - Hep-c (+)- not sure if he had tx or not, he is not a candidate due to drinking behavior - Acute respiratory failure - per CCM - DM, COPD per CCM Plan: - Start TF via J tube once okay by IR orders - Once TF at [facility], wean TPN - CT Abdomen and pelvis with po contrast, D/W ID - Lipase level - CBC, BMP in am - Abx per ID - CCM following - [employer]ol[employer] Management Technician following - Supportive care - Further recommendations to follow based on results of above - PT seen and examined by Dr. Vogt and myself and this note is written on his behalf (Fernanda Zhang) Physician Comments Patient seen and examined Agree with above Continue current supportive care Monitor labs Await CT (Joaquín Vogt MD) Fernanda Zhang May 11, 2016 15:57 Joaquín Vogt MD May 11, 2016 20:41
--- NOTE | 2016-05-11 16:11 | HHI.IDPN ---
Subjective Subjective Remarks is a 65 y/o AAM with PMHx of COPD, CAD/CHF, DM, heavy alcohol abuse , Hepatitis C, pancreatitis in past. ID following for possible sepsis, acute pancreatitis and pneumonia. Overnight events reviewed with RN. Tmax 102.8 F yday Tcurrent 102.8 HD cath removed. No further plans for HD as Cr improved. On the vent. Secretions myers, thin frequent suctioning. Opens eyes when stimulated, follows commands and responds by nodding. WBC remains elevated. UO good. Antibiotics Azactam IV flagyl diflucan Lines Line sites with no e/o infection Past Medical History reviewed Allergies: Coded Allergies: Penicillin (Verified Allergy, Severe, HIVES, 04/24/16) Objective . Vital Signs Date Time Temp Pulse Resp B/P Pulse Ox O2 Delivery O2 Flow Rate FiO2 05/11/16 14:00 78 05/11/16 12:40 100 100 05/11/16 12:00 30 05/11/16 12:00 100.6 83 14 149/73 96 05/11/16 12:00 83 05/11/16 11:11 98 30 05/11/16 11:05 100.8 85 23 147/69 98 05/11/16 10:50 100.8 84 20 131/65 98 05/11/16 10:35 100.8 81 19 131/65 98 05/11/16 10:20 100.9 83 23 127/61 97 05/11/16 10:05 101.1 95 22 122/58 97 05/11/16 10:00 84 05/11/16 08:00 89 05/11/16 08:00 30 05/11/16 08:00 102.8 89 16 112/56 98 05/11/16 07:38 99 30 05/11/16 07:38 30 05/11/16 06:00 82 05/11/16 06:00 100 30 05/11/16 04:00 100.8 82 22 134/64 100 05/11/16 04:00 82 05/11/16 04:00 30 05/11/16 03:39 100 40 05/11/16 02:00 75 05/11/16 00:00 30 05/11/16 00:00 68 05/11/16 00:00 99.5 68 22 102/55 100 05/10/16 22:05 100 40 1/31/17 22:00 78 05/10/16 20:00 100.0 78 22 124/63 99 05/10/16 20:00 30 05/10/16 20:00 78 05/10/16 19:05 98 40 05/10/16 18:00 74 05/10/16 16:29 100 40 05/10/16 05/10/16 05/11/16 15:00 23:00 07:00 Intake Total 685 ml 547 ml 686 ml Output Total 450 ml 450 ml 425 ml Balance 235 ml 97 ml 261 ml IV Total 302 ml 295 ml 358 ml TPN/PPN 383 ml 252 ml 328 ml Output Urine Total 450 ml 450 ml 425 ml # Bowel Movements 0 0 1 . Laboratory Tests Test 05/10/16 05/11/16 05/11/16 05:20 03:08 13:00 White Blood Count 24.4 TH/MM3 23.8 TH/MM3 Red Blood Count 2.75 MIL/MM3 2.70 MIL/MM3 Hemoglobin 7.0 GM/DL 6.9 GM/DL 8.0 GM/DL Hematocrit 21.5 % 21.0 % 24.1 % Mean Corpuscular Volume 78.0 FL 77.9 FL Mean Corpuscular Hemoglobin 25.4 PG 25.5 PG Mean Corpuscular Hemoglobin 32.6 % 32.7 % Concent Red Cell Distribution Width 17.1 % 17.1 % Platelet Count 392 TH/MM3 431 TH/MM3 Mean Platelet Volume 9.6 FL 9.6 FL Neutrophils (%) (Auto) 75.5 % 78.2 % Lymphocytes (%) (Auto) 10.5 % 5.7 % Monocytes (%) (Auto) 11.9 % 12.6 % Eosinophils (%) (Auto) 1.6 % 2.8 % Basophils (%) (Auto) 0.5 % 0.7 % Neutrophils # (Auto) 18.4 TH/MM3 18.7 TH/MM3 Lymphocytes # (Auto) 2.6 TH/MM3 1.4 TH/MM3 Monocytes # (Auto) 2.9 TH/MM3 3.0 TH/MM3 Eosinophils # (Auto) 0.4 TH/MM3 0.7 TH/MM3 Basophils # (Auto) 0.1 TH/MM3 0.2 TH/MM3 CBC Comment AUTO DIFF AUTO DIFF Differential Total Cells 100 100 Counted Neutrophils % (Manual) 78 % 63 % Band Neutrophils % 9 % 10 % Lymphocytes % 3 % 8 % Monocytes % 7 % 9 % Eosinophils % 2 % 3 % Basophils % 1 % 1 % Neutrophils # (Manual) 21.2 TH/MM3 18.8 TH/MM3 Differential Comment FINAL DIFF FINAL DIFF MANUAL MANUAL Platelet Estimate NORMAL Platelet Morphology Comment ENLARGED Target Cells 1+ Metamyelocytes 5 % Myelocytes 1 % Toxic Granulation 1+ Laboratory Tests Test 05/09/16 05/10/16 05/11/16 21:30 05:20 03:08 Potassium Level 3.5 MEQ/L 3.6 MEQ/L 3.6 MEQ/L Sodium Level 138 MEQ/L 140 MEQ/L Chloride Level 105 MEQ/L 107 MEQ/L Carbon Dioxide Level 25.0 MEQ/L 26.1 MEQ/L Anion Gap 8 MEQ/L 7 MEQ/L Blood Urea Nitrogen 62 MG/DL 61 MG/DL Creatinine 2.43 MG/DL 1.81 MG/DL Estimat Glomerular Filtration 33 ML/MIN 46 ML/MIN Rate Random Glucose 157 MG/DL 129 MG/DL Calcium Level 8.9 MG/DL 8.7 MG/DL Total Bilirubin 0.6 MG/DL Aspartate Amino Transf 29 U/L (AST/SGOT) Alanine Aminotransferase 11 U/L (ALT/SGPT) Alkaline Phosphatase 70 U/L Total Protein 5.8 GM/DL Albumin 1.8 GM/DL Imaging Abdomen X-Ray 05/07/16 0400 Signed Impressions: Service Date/Time: Saturday, May 07, 2016 05:03 - CONCLUSION: There are 2 tubes within the stomach. Jhonny Green MD Tube Placement X-Ray 05/05/16 0000 Signed Impressions: Service Date/Time: April 16:20 - CONCLUSION: Fluoroscopically guided nasogastric tube repositioning as above. Attempts were discontinued after multiple attempts with the tubing seen coiling within the patient's mouth region and proximal esophagus. Tessa Nichole MD Abdomen X-Ray 05/05/16 0000 Signed Impressions: Service Date/Time: April 13:42 - CONCLUSION: No evidence of obstruction. Stable placement of Dobbhoff tube and nasogastric tube. Tessa Nichole MD Abdomen/Pelvis CT 05/02/16 0000 Signed Impressions: Service Date/Time: Monday, May 02, 2016 15:43 - CONCLUSION: 1. The exam demonstrates extensive inflammatory change around the pancreas with fluid extending down into the paracolic gutters consistent with severe pancreatitis. This has significantly worsened when compared to previous dated 04/24/16. No organized pseudocyst is present. 2. NG tube and Hardin in good position. Seng Rollins MD Abdomen X-Ray 04/30/16 0000 Signed Impressions: Service Date/Time: Saturday, April 30, 2016 05:12 - CONCLUSION: No dilated loops of small bowel. Stable dilated transverse colon. Hubert Garcia MD Chest X-Ray 04/27/16 0000 Signed Impressions: Service Date/Time: Wednesday, April 27, 2016 10:28 - CONCLUSION: 1. Dialysis catheter in good position. 2. Increasing bibasilar parenchymal changes worse on the left. Kermit Rollins MD FACR Renal Ultrasound 04/25/16 0000 Signed Impressions: Service Date/Time: Monday, April 25, 2016 15:01 - CONCLUSION: No evidence of hydronephrosis. Tom Seals MD Physical Exam GENERAL: Opens eyes, on the vent, NAD SKIN: No rashes. Warm, improving edema HEAD: Atraumatic. Normocephalic. No temporal or scalp tenderness. EYES: Pupils equal round and reactive. No injection or drainage. ENT: Intubated. NECK: Trachea midline. Supple, nontender, no meningeal signs. CARDIOVASCULAR: Heart sounds audible. RESPIRATORY: Clear to auscultation. Breath sounds equal bilaterally with decrease in the bases. GASTROINTESTINAL: Abdomen distended, tenderness diffusely, hypoactive bowel sounds. MUSCULOSKELETAL: Extremities without clubbing, cyanosis. Pedal edema noted, improving. NEUROLOGICAL: Sedated. Opens eyes Psych could not be assessed IV line sites with no evidence of infection. Assessment & Plan Remarks New sepsis (source: likely intra abdominal and aspiration/Health care associated pneumonia. Reviewed other sources: CL and HD cath, Cath associated UTI. Severe acute pancreatitis as most likely cause of new SIRS. No pseudocyst no evidence of any abscess. - last CT worse MSSA and Kleb pneumo pneumonia. New high fevers : ? new infection vs worsening or necrotizing pancreatitis. Acute resp failure on vent. Acute renal failure was on HD till 05/10/16. Alcoholism Recs: Grider culture. Agree with CCM to change central line. Check Lipase before starting GJ tube feeds. D/w GI and CCM teams. Check CT A/P without contrast. Add CT Chest without contrast (follow up on PNA, ? empyema Check CRP. Start Meropenem IV (ASP: possible necrotizing fascitis, persistent fevers on broad spectrum antibiotics, PCN allergy) Start Micafungin IV (ASP: fevers despite Diflucan, on BSA abdominal source as well as possible line infection ? fungemia) DC Azactam DC Levaquin DC Flagyl oral DC Diflucan Monitor progress Monitor alyssa maddox RN and CCM, GI Critical thinking and decision making. Time > 40 mins. Sienna Hercules MD May 11, 2016 16:11
[2016-05-11] MEDS ORDERED: [UNRECOGNIZED DRUG - MIXTURE] XX PRN (16:15)
[2016-05-11] MEDS ORDERED: DIATRIZOATE MEGLUM/DIATRIZOATE SOD 9 ML CUP PO ONE (16:15)
[2016-05-11] MEDS ORDERED: ASP: Documented allergy to Penicillins or Cephalosporins XX PRN (16:15)
[2016-05-11] MEDS ORDERED: ASP: Necrotizing pancreatitis XX PRN (16:15)
[2016-05-11] MEDS ORDERED: MISCELLANEOUS PHARMACY INFORMATION XX PRN (16:15)
[2016-05-11] MEDS ORDERED: MIDAZOLAM HCL 5 MG/ML VIAL (1 ML) ONE (17:05)
[2016-05-11] MEDS: MEROPENEM INJ 500 MG in SODIUM CHLORIDE 0.9% INJ 100 ML IV SCH (17:55)
[2016-05-11] MEDS: MICAFUNGIN INJ 150 MG in SODIUM CHLORIDE 0.9% INJ 100 ML IV SCH (17:55)
[2016-05-11] MEDS ORDERED: MIDAZOLAM HCL 5 MG/5 ML VIAL IV ONE (18:15)
--- NOTE | 2016-05-11 18:35 | PD.PROCEDR ---
Procedure Note Procedure Central Line Procedure Note Left subclavian triple lumen catheter Diagnosis: Acute pancreatitis Indications: Need for central pressure monitoring Consent: Written consent was obtained Anesthesia: 1% lidocaine locally, Versed 2 mg IV, fentanyl 100 mg IV Description of the Procedure: The patient was placed in the supine, mild- Trendelenburg position. The area was prepped and draped sterilely. A 19g needle was inserted under negative pressure aspiration and dark venous blood was obtained. A guidewire was inserted easily without resistance. A small incision was made using a #11 blade. Using a modified Seldinger technique, the dilator and 7 Barbadian, 20 cm catheter were advanced over the guidewire without resistance. All ports were aspirated and flushed, and had brisk blood return. The line was secured at 18 cm at the skin using 2-0 silk interrupted sutures. A Biopatch and Transparent sterile dressing were applied. There were no immediate complications noted. There was minimal EBL. The patient tolerated the procedure well. Ultrasound guidance was not used for this procedure. A Chest x-ray has been ordered. I personally performed the procedure. Dakota Sanchez MD May 11, 2016 18:35
--- NOTE | 2016-05-11 18:47 | RADRPT ---
EXAM DATE/TIME: 05/11/2016 18:10 [facility] COMPARISON: CHEST SINGLE AP, May 10, 2016, 11:58. INDICATIONS : Central line placement MEDICAL HISTORY : Cardiovascular disease. Chronic obstructive pulmonary disease. Diabetes mellitus type 2. SURGICAL HISTORY : None. ENCOUNTER: Initial ACUITY: 1 day PAIN SCORE: Non-responsive. LOCATION: Bilateral chest FINDINGS: A single view of the chest demonstrates patchy densities in the left upper lobe left lower lobe and r ight perihilar region. Heart enlarged. Tracheostomy tube and right jugular line are stable in positio n. Left subclavian central line with tip in the SVC. No pneumothorax. Osseous structures are intact. CONCLUSION: Adequate placement of left subclavian central line. Scattered bilateral patchy densities. Abdi Hodges MD on May 11, 2016 at 18:44 Board Certified Radiologist. This report was verified electronically.
[2016-05-11 18:56] LABS: BACTERIA, URINE OCC /hpf; BLOOD, URINE NEG (NEG); GLUCOSE,URINE NEG (NEG); KETONE, URINE NEG (NEG); NITRITE,URINE NEG (NEG); URINE COLOR YELLOW (YELLW/STRAW)
[2016-05-11] MEDS: CLINIMIX 4.25/25 (Cust.Renal Central) 1000 mL- </= 42 mls/hr IV-CENTRAL SCH ×8 (19:47)
[2016-05-11] MEDS: fentaNYL DRIP 250 ML IV SCH (21:40)
[2016-05-12] VITALS (19 sets, daily range): BP systolic 117–139; BP diastolic 64–79; PULSE 64–89; RESP 14–21; TEMP 98.4–100; O2SAT 94–100
[2016-05-12] MEDS: oxyCODONE HCL ORAL CONC 20 MG/ML SYRINGE PO SCH ×3 (00:38→08:00)
[2016-05-12] MEDS: MEROPENEM INJ 500 MG in SODIUM CHLORIDE 0.9% INJ 100 ML IV SCH ×3 (00:40→15:47)
[2016-05-12] MEDS: CHLORHEXIDINE GLUCONATE 2 % 1 PACK (2 CLOTHS) TOP SCH (04:00)
[2016-05-12 05:04] LABS: HEMATOCRIT 24.4 % (39.0-51.0); MEAN CELL VOLUME 79.3 FL (80.0-100.0); MEAN CORPUSCULAR HEMOGLOBIN 25.4 PG (27.0-34.0); MEAN CORPUSCULAR HGB CONC 32.1 % (32.0-36.0); PLATELET COUNT 411 TH/MM3 (150-450); RED BLOOD COUNT 3.08 MIL/MM3 (4.50-5.90); REVIEW FLAG FINAL; WHITE BLOOD COUNT 24.9 TH/MM3 (4.0-11.0)
[2016-05-12 05:35] LABS: BICARBONATE 24.2 MEQ/L (21.0-32.0); POTASSIUM 3.6 MEQ/L (3.5-5.1)
[2016-05-12] MEDS: METOCLOPRAMIDE HCL 10 MG/2 ML VIAL IV PUSH SCH (06:08)
[2016-05-12] MEDS: fentaNYL DRIP 250 ML IV SCH (06:33)
[2016-05-12] MEDS: CHLORHEXIDINE 0.12% (ORAL KIT) 15 ML CUP MT SCH ×2 (08:00→20:09)
[2016-05-12] MEDS: SODIUM CHLORIDE 0.9% FLUSH 5 ML FLUSH IV FLUSH SCH ×2 (09:00→20:09)
[2016-05-12] MEDS: PANTOPRAZOLE SODIUM 40 MG VIAL IV SCH (09:01)
--- NOTE | 2016-05-12 09:45 | HHI.CCPN ---
Subjective Remarks/Hospital Course This is a 65-year-old male with history of COPD, strong alcohol abuse history, diabetes, questionable history of heart failure, coronary artery disease who initially presented to the emergency department 04/25 with abdominal pain and was found to have acute pancreatitis. He was noted to the hospital at that time. Over the subsequent 48 hours, he developed worsening hypoxia as well as an acute kidney injury. This was initially thought to be CHF exacerbation and volume overload. He was given diuretics without a good response. His creatinine has trended up to 6. Nephrology was consulted and are considering renal replacement therapy. Tonight throughout the night, the patient became more hypoxic and dyspneic with increasing oxygen requirement. He is transferred to the ICU for his acute hypoxic respiratory failure. The patient is nauseated and has vomited a few times. 04/28: Intubated for respiratory distress with hypoxemia, now with acceptable gas exchange. Tolerating dialysis, try to extubate shortly. 04/29: Abdomen much too distended for extubation. NG tube placed with Roman forceps. 04/30: Abdomen remains tensely distended. No peritoneal irritation. BS few. 05/01: Abdomen remains tensely distended. No peritoneal irritation. 05/02: Abdominal distention worse. Pain worse. Will get CT to look for perforation. 05/03: CT abdomen with rip-roaring inflammatory process involving the pancreas; much worse. Sputum with multiple organisms. Patient clinically more critically ill. 05/04: Will start TFs if OK with GI service. 05/05: Dobbhoff tube in stomach. Will try to advance to duodenum and avoid TPN if at all possible. 05/06: DHT not post-pyloric, will advance and get KUB in a.m. 05/07: Persistent low grade fever and leukocytosis. Ileus persists. Goal is to get intestinal motility restored, decompress abdomen, extubate, and transfer to son's area in [place] for long-term care. 05/08: Remains sedated, arousable, orally intubated on mechanical ventilation. 05/09: Sedated, arousable, orally intubated on mechanical ventilation. On TPN 05/10: Sedated, arousable, orally intubated on mechanical ventilation. Remains on TPN as Dobbhoff remains in stomach. Scheduled for percutaneous tracheostomy today. Awaiting G/J tube placement by GI. 05/11: plan for g/j today. getting 2 units prbc for hgb 6.9. s/p trach yesterday. 05/12: g/j yesterday. persistently febrile yesterday. wbc still elevated. Lipase 130. awaiting repeat CT abd/pelvis results. new line placed yesterday and old line discontinued. cultures pending. Objective Vital Signs Date Time Temp Pulse Resp B/P Pulse Ox O2 Delivery O2 Flow Rate FiO2 05/12/16 08:00 98.4 75 14 126/67 97 05/12/16 07:21 30 Intake and Output 05/11/16 05/11/16 05/12/16 08:00 16:00 00:00 Intake Total 686 ml 987 ml 722 ml Output Total 425 ml 730 ml 800 ml Balance 261 ml 257 ml -78 ml Result Diagram: 05/12/16 0445 05/12/16 0445 Imaging Critical care bedside ultrasound 04/27: Grossly preserved left ventricular function. Normal RV size and function. Small collapsible IVC which very strongly with respirations and is almost completely flat with inspiration. No pericardial effusion. Objective Remarks GENERAL: Middle-aged male, calm on moderate sedation HEENT: Normocephalic. Atraumatic. NECK: Supple, orally intubated. CHEST: On mechanical ventilation, Scattered rhonchi, decreased BS bases. Good ling air movement. Copious secretions persist. CARDIOVASCULAR: normal rate, regular rhythm. No murmurs. No JVD. ABDOMEN: Tensely distended, firm, generally tender to palpation, Occasional BS. MUSCULOSKELETAL: Trace peripheral edema. Warm, well perfused. NEUROLOGICAL: Opens eyes to voice. Tracks with eyes. Follows commands all 4 extremities. A/P Assessment and Plan Plan by systems: Neurologic: Alcohol abuse Metabolic encephalopathy Pain associated with acute pancreatitis fentanyl for goal RASS Goal RASS -1. Daily sedation vacation - Needs minimal sedation - will restart schedule po oxycodone 10mg for pain - increase dilaudid to 1mg iv q4h prn for breakthrough pain - attempt to wean off fentanyl. - iv tylenol 1gm q8h prn for pain or fever. Respiratory: Acute hypoxic respiratory failure ARDS COPD Vent bundle Head of bed at 30 Wean FiO2 for goal SPO2 greater than 90% Nebs every 6 and every 2 when necessary -attempt trach collar trials today. - oob to stretcher chair today and daily. Cardiovascular: Sinus tachycardia SIRS response Continue telemetry SIRS likely / acute pancreatitis Renal: Acute kidney injury- improving. Likely has a component of prerenal, but also likely from acute pancreatitis Hardin catheter -- Strict I/Os, monitor and replete electro lites, follow BUN/creatinine - nephrology following. vas cath removed 05/11. FEN/GI: Severe intravascular volume depletion- resolved. Severe acute pancreatitis Severe hypocalcemia Metabolic acidosis Currently nothing by mouth. TPN for nutrition started 05/07. OG tube to wall suction. GJ tube placed 05/11. --restart trickle TF at 20cc/hr, do not titrate for now. Daily CMP, CBC Heme/ID: Leukocytosis Anemia secondary to acute blood loss and critical illness Likely reactive secondary to acute pancreatitis Stool for C. difficile negative (05/08) Urine, sputum, blood cultures. ABX per ID service. Daily CBC --s/p 2 units prbc 05/11. stable hgb. ID - Leukocytosis with shift. Dr. Hercules ID service advising. Sputum 05/01 - Klebsiella, E. coli, Staph MSSA Endocrine: Diabetes -- SSI, medium scale, every 6 hours Prophylaxis: GI Prophylaxis Protonix 40 mg IV daily 24 hours DVT Prophylaxis -- SCDs Heparin 5000 every 12h Lines: 04/27 left subclavian triple-lumen catheter - discontinued. New central line placed right subclavian 05/07, d/c'd 05/11. left SC TLC placed 05/11. Wilfred Paulson had lengthy discussions with patient's son at bedside about the severity of his illness and poor prognosis. Overall impression: Marked abdominal distention persists. Tolerates SBT but won' t ventilate with severe abdominal distention. Enteral nutrition to start when post-pyloric access. Time spent on critical care excluding procedures 33 minutes Dakota Sanchez MD May 12, 2016 09:45
[2016-05-12] MEDS ORDERED: MAGNESIUM SULFATE 2 GM/NS 100 ML IV ONE ×2 (10:45)
--- NOTE | 2016-05-12 11:01 | HHI.GIFU ---
Subjective Remarks Resting in bed. Awake. Nods. Pt with distention. CT was not done overnight- nurse getting contrast in now, but states he is back up green drainage from G tube. (Fernanda Zhang) Objective Vitals I&O Vital Signs Date Time Temp Pulse Resp B/P Pulse Ox O2 Delivery O2 Flow Rate FiO2 05/12/16 10:00 77 05/12/16 08:00 98.4 75 14 126/67 97 05/12/16 08:00 77 05/12/16 07:21 30 05/12/16 07:20 96 30 05/12/16 06:00 79 05/12/16 04:10 100 30 05/12/16 04:00 83 05/12/16 04:00 100.0 83 16 139/79 94 05/12/16 04:00 30 05/12/16 02:00 86 05/12/16 00:30 100 30 05/12/16 00:00 79 05/12/16 00:00 99.1 79 18 135/64 98 05/12/16 00:00 30 05/11/16 22:00 76 05/11/16 20:00 75 05/11/16 20:00 99.0 75 19 144/70 94 05/11/16 20:00 30 05/11/16 19:20 100 30 05/11/16 18:00 76 05/11/16 16:02 94 30 05/11/16 16:00 30 05/11/16 16:00 98.8 77 13 143/64 94 05/11/16 16:00 76 05/11/16 14:00 78 05/11/16 12:40 100 100 05/11/16 12:00 30 05/11/16 12:00 100.6 83 14 149/73 96 05/11/16 12:00 83 05/11/16 11:11 98 30 05/11/16 11:05 100.8 85 23 147/69 98 I/O 05/11/16 05/11/16 05/11/16 05/12/16 05/12/16 05/12/16 07:00 15:00 23:00 07:00 15:00 23:00 Intake Total 686 ml 987 ml 722 ml 620 ml Output Total 425 ml 730 ml 800 ml 700 ml Balance 261 ml 257 ml -78 ml -80 ml IV Total 358 ml 537 ml 433 ml 331 ml TPN/PPN 328 ml 450 ml 289 ml 289 ml Output Urine Total 425 ml 730 ml 800 ml 700 ml # Bowel Movements 1 0 0 1 Laboratory Laboratory Tests Test 05/11/16 05/11/16 05/12/16 13:00 16:53 04:45 Hemoglobin 8.0 7.8 Hematocrit 24.1 24.4 Urine Color YELLOW Urine Turbidity CLEAR Urine pH 5.0 Urine Specific [place] 1.013 Urine Protein TRACE Urine Glucose (UA) NEG Urine Ketones NEG Urine Occult Blood NEG Urine Nitrite NEG Urine Bilirubin NEG Urine Urobilinogen LESS THAN 2.0 Urine Leukocyte Esterase NEG Urine RBC 2 Urine WBC 3 Urine Bacteria OCC Urine Yeast (Budding) OCC Microscopic Urinalysis Comment Urine Eosinophils NONE SEEN C-Reactive Protein 12.00 Lipase 130 White Blood Count 24.9 Red Blood Count 3.08 Mean Corpuscular Volume 79.3 Mean Corpuscular Hemoglobin 25.4 Mean Corpuscular Hemoglobin 32.1 Concent Red Cell Distribution Width 17.0 Platelet Count 411 Mean Platelet Volume 9.1 Sodium Level 143 Potassium Level 3.6 Chloride Level 109 Carbon Dioxide Level 24.2 Anion Gap 10 Blood Urea Nitrogen 52 Creatinine 1.26 Estimat Glomerular Filtration 70 Rate Random Glucose 133 Calcium Level 8.7 Date/Time Procedure Status Source Growth 05/11/16 17:52 Aerobic Blood Culture Received Blood Line Pending 05/11/16 17:52 Anaerobic Blood Culture Received Blood Line Pending 05/08/16 04:50 Gram Stain - Final Complete Sputum Endotracheal 05/08/16 04:50 Sputum Culture - Final Complete Staphylococcus Aureus 05/07/16 19:35 Aerobic Blood Culture - Preliminary Resulted Blood Peripheral NO GROWTH IN 4 DAYS 05/07/16 19:35 Anaerobic Blood Culture - Preliminary Resulted Blood Peripheral NO GROWTH IN 4 DAYS Imaging Last Impressions Gastrostomy Tube Placement 05/11/16 0000 Signed Impressions: Service Date/Time: Wednesday, May 11, 2016 13:49 - CONCLUSION: Uncomplicated gastrojejunostomy tube placement as above. El Santiago MD Chest X-Ray 05/11/16 0000 Signed Impressions: Service Date/Time: Wednesday, May 11, 2016 18:10 - CONCLUSION: Adequate placement of left subclavian central line. Scattered bilateral patchy densities. Abdi Hodges MD Abdomen X-Ray 05/09/16 0900 Signed Impressions: Service Date/Time: Monday, May 09, 2016 09:02 - CONCLUSION: 2 tubes in the stomach one nasogastric one Dobbhoff both terminate in the distal body or antrum of the stomach Braden Larson MD Abdomen/Pelvis CT 05/07/16 0000 Signed Impressions: Service Date/Time: Saturday, May 07, 2016 20:15 - CONCLUSION: Stable severe inflammatory change in the upper abdomen obscuring the pancreas, characteristic of severe pancreatitis. There is also fluid tracking down the right paracolic gutter. Overall, the appearance and severity is unchanged from 05/02/16. Hubert Garcia MD Tube Placement X-Ray 05/05/16 0000 Signed Impressions: Service Date/Time: April 16:20 - CONCLUSION: Fluoroscopically guided nasogastric tube repositioning as above. Attempts were discontinued after multiple attempts with the tubing seen coiling within the patient's mouth region and proximal esophagus. Tessa Nichole MD Renal Ultrasound 04/25/16 0000 Signed Impressions: Service Date/Time: Monday, April 25, 2016 15:01 - CONCLUSION: No evidence of hydronephrosis. Tom Seals MD Physical Exam HEENT: Normocephalic; atraumatic; no jaundice. CHEST: Rhonchi. Tracheostomy to vent CARDIAC: RRR ABDOMEN: Semifirm, distended, diffuse tenderness, bowel sounds are hypoactive. + BM. G/J tube EXTREMITIES: Generalized edema. TOOL LIAISON: Lethargic, awake. (Fernanda Zhang [facility]) Assessment and Plan Plan ASSESSMENT: - Severe pancreatitis (acute on chronic), with heavy alcohol intake about [address] Abdomen and pelvis (04/24/16)---> Inflammatory stranding in and around the pancreas suggestive of pancreatitis without any focal areas of necrosis or pseudocyst formation. Mildly fatty liver. Rpt. CT Scan abdomen and pelvis Without IV contrast (05/02/16)-----> exam demonstrates extensive inflammatory change around the pancreas with fluid extending down into the paracolic gutters consistent with severe pancreatitis. This has significantly worsened when compared to the previous stated 04/24/16. No organized pseudocyst is present. Pt with persistent leukocytosis WBC 24.9 and fevers. LFT stable. S /P G/J tube (05/11). TPN. Going for repeat CT scan today. - Ileus/vs obstruction. KUB (05/09/16)----> 2 tubes in the stomach one nasogastric one Dobbhoff both terminate in the distal body or antrum of the stomach. CT will be done today, will evaluate with this. Nurse reports when she started contrast, he has green gastric secretions backing up trach. Will place G tube to LIWS, Contrast via J tube. Await CT scan. - Persistent Fever/Leukocytosis. Flagyl, Diflucan, Azactam, Levaquin, CT was not done overnight- getting contrast to go down now. - Anemia. 7.8/24.4. - ARF. HD per nephrology - Hep-c (+)- not sure if he had tx or not, he is not a candidate due to drinking behavior - Acute respiratory failure - per CCM - DM, COPD per CCM Plan: - NPO - G tube to LIWS - Oral contrast via J tube slowly - CT Abdomen and pelvis with po contrast, D/W ID - CBC, BMP in am - Abx per ID - CCM following - Management Information Systems Director following - Supportive care - Further recommendations to follow based on results of above - Once CT is done, can start TF via J tube and start weaning TPN once at - PT seen and examined by Dr. Vogt and myself and this note is written on his behalf (Fernanda Zhang) Physician Comments Patient seen and examined Agree with above Continue with current supportive care Monitor labs CT of the abdomen appears to be stable (Joaquín Vogt MD) Fernanda Zhang May 12, 2016 11:01 Joaquín Vogt MD May 12, 2016 19:45
[2016-05-12] MEDS: oxyCODONE HCL ORAL CONC 20 MG/ML SYRINGE NG SCH ×4 (11:20→23:24)
[2016-05-12] MEDS: METOCLOPRAMIDE HCL SYRUP 10 MG/10 ML UDC NG SCH ×2 (14:00→23:23)
[2016-05-12] MEDS ORDERED: ATROPINE SULFATE 1 MG/10 ML SYRINGE ONE (14:38)
[2016-05-12] MEDS ORDERED: EPINEPHrine HCL (1:10,000) 1 MG/10 ML SYRINGE ONE (14:38)
--- NOTE | 2016-05-12 15:17 | RADRPT ---
EXAM DATE/TIME: 05/12/2016 14:52 [facility] COMPARISON: CT ABDOMEN & PELVIS W/O CONTRAST, May 07, 2016, 20:15. INDICATIONS : Follow-up pancreatitis, fevers. ORAL CONTRAST: Prescribed oral contrast ingested. RADIATION DOSE: 16.05 CTDIvol (mGy) ; Combined studies - Thorax/Abdomen/Pelvis MEDICAL HISTORY : Seizures. Cardiovascular disease Hypertension.Diabetes. CVA. SURGICAL HISTORY : Appendectomy. ENCOUNTER: Subsequent ACUITY: 1 month PAIN SCALE: Non-responsive LOCATION: Bilateral abdomen. TECHNIQUE: Volumetric scanning of the abdomen and pelvis was performed. Using automated exposure control and ad justment of the mA and/or kV according to patient size, radiation dose was kept as low as reasonably achievable to obtain optimal diagnostic quality images. FINDINGS: LOWER LUNGS: Left lower lobe atelectasis and small left pleural effusion, similar to the prior study of 05/07/2016. LIVER: Homogeneous density without lesion. There is no dilation of the biliary tree. No calcified gallston es. SPLEEN: Normal size without lesion. PANCREAS: Severe peripancreatic inflammatory change is again seen. No significant interval change. No rounded o rganized fluid collections identified. KIDNEYS: Normal in size and shape. There is no mass, stone, or hydronephrosis. ADRENAL GLANDS: Within normal limits. VASCULAR: There is no aortic aneurysm. BOWEL/MESENTERY: Gastrojejunostomy tube is in place. Contrast is seen within the gastric lumen. No evidence of bowel d ilatation. No free air. ABDOMINAL WALL: Within normal limits. RETROPERITONEUM: There is no lymphadenopathy. BLADDER: Ahrdin catheter in place. REPRODUCTIVE: Within normal limits. INGUINAL: There is no lymphadenopathy or hernia. MUSCULOSKELETAL: Degenerative findings of the lumbar spine. Intramuscular lipoma in the posterior lateral chest wall o n the right measuring 3.3 x 1.3 cm. CONCLUSION: 1. Severe peripancreatic inflammatory changes again seen. No organized rounded fluid collections iden tified. 2. Left lower lobe atelectasis/consolidation and small pleural effusion unchanged. Kyle Ludwig MD on May 12, 2016 at 15:11 Board Certified Radiologist. This report was verified electronically.
[2016-05-12] MEDS ORDERED: hydrALAZINE HCL 20 MG/ML VIAL ONE (15:19)
--- NOTE | 2016-05-12 15:23 | RADRPT ---
EXAM DATE/TIME: 05/12/2016 14:52 [facility] COMPARISON: CT THORAX W/O CONTRAST, February 01, 2014, 20:10. INDICATIONS : Pneumonia; empyema. RADIATION DOSE: 16.05 CTDIvol (mGy) ; Combined studies - Thorax/Abdomen/Pelvis MEDICAL HISTORY : Seizures. Cardiovascular disease Hypertension. Diabetes. CVA. SURGICAL HISTORY : Appendectomy. ENCOUNTER: Subsequent ACUITY: 1 month PAIN SCALE: Non-responsive LOCATION: chest TECHNIQUE: Volumetric scanning of the chest was performed. Using automated exposure control and adjustment of t he mA and/or kV according to patient size, radiation dose was kept as low as reasonably achievable to obtain optimal diagnostic quality images. FINDINGS: LUNGS: Tracheostomy tube is in place with the tip in the mid thoracic trachea. Dependent left lower lobe ate lectasis versus consolidation and small left pleural effusion. Patchy atelectasis versus mild consoli dation in the anterior left upper lobe and superior segment right lower lobe. Mild bilateral pulmonar y parenchymal emphysema. Patchy opacity in the right upper lobe. PLEURAE: There is no pleural thickening or pleural effusion. MEDIASTINUM: Calcified lymph nodes in the rosario and mediastinum. No enlarged lymph nodes. AXILLAE: Within normal limits. No lymphadenopathy. MUSCULOSKELETAL: Within normal limits for patient age. MISCELLANEOUS: Abdomen is fully described on abdomen CT report. CONCLUSION: 1. Bilateral pulmonary opacity with left lower lobe atelectasis versus consolidation and patchy bilat eral mid to upper lung atelectasis versus mild consolidation. 2. Small left pleural effusion. 3. Evidence of old granulomatous disease. Kyle Ludwig MD on May 12, 2016 at 15:15 Board Certified Radiologist. This report was verified electronically.
[2016-05-12] MEDS: HEPARIN SODIUM - SQ 10,000 UNITS/ML VIAL SQ SCH ×2 (15:47→23:23)
[2016-05-12] MEDS: MICAFUNGIN INJ 150 MG in SODIUM CHLORIDE 0.9% INJ 100 ML IV SCH (17:18)
[2016-05-12] MEDS: HYDROmorphone HCL PF 1 MG/ML VIAL IV PUSH PRN (17:18)
--- NOTE | 2016-05-12 18:01 | HHI.IDPN ---
Subjective Subjective Remarks is a 65 y/o AAM with PMHx of COPD, CAD/CHF, DM, heavy alcohol abuse , Hepatitis C, pancreatitis in past. ID following for possible sepsis, acute pancreatitis and pneumonia. Overnight events reviewed with RN. Fevers trending down since Antibiotics changed. On the vent. Trach and GJ tube in place. Secretions myers, thin frequent suctioning. Opens eyes when stimulated, follows commands and responds by nodding. WBC remains elevated. UO good. Antibiotics Meropenem IV Micafungin IV Lines Line sites with no e/o infection Past Medical History reviewed Allergies: Coded Allergies: Penicillin (Verified Allergy, Severe, HIVES, 04/24/16) Objective . Vital Signs Date Time Temp Pulse Resp B/P Pulse Ox O2 Delivery O2 Flow Rate FiO2 05/12/16 16:00 99.1 75 20 135/68 96 05/12/16 16:00 75 05/12/16 16:00 30 05/12/16 15:26 100 100 05/12/16 15:25 100 100 05/12/16 14:00 64 05/12/16 12:00 99.1 89 20 129/66 99 05/12/16 12:00 76 05/12/16 11:30 100 40 05/12/16 10:00 77 05/12/16 08:00 98.4 75 14 126/67 97 05/12/16 08:00 77 05/12/16 07:21 30 05/12/16 07:20 96 30 05/12/16 06:00 79 05/12/16 04:10 100 30 05/12/16 04:00 83 05/12/16 04:00 100.0 83 16 139/79 94 05/12/16 04:00 30 05/12/16 02:00 86 05/12/16 00:30 100 30 05/12/16 00:00 79 05/12/16 00:00 99.1 79 18 135/64 98 05/12/16 00:00 30 05/11/16 22:00 76 05/11/16 20:00 75 05/11/16 20:00 99.0 75 19 144/70 94 05/11/16 20:00 30 05/11/16 19:20 100 30 05/11/16 18:00 76 05/11/16 05/11/16 05/12/16 15:00 23:00 07:00 Intake Total 987 ml 722 ml 620 ml Output Total 730 ml 800 ml 700 ml Balance 257 ml -78 ml -80 ml IV Total 537 ml 433 ml 331 ml TPN/PPN 450 ml 289 ml 289 ml Output Urine Total 730 ml 800 ml 700 ml # Bowel Movements 0 0 1 . Laboratory Tests Test 05/11/16 05/11/16 05/12/16 03:08 13:00 04:45 White Blood Count 23.8 TH/MM3 24.9 TH/MM3 Red Blood Count 2.70 MIL/MM3 3.08 MIL/MM3 Hemoglobin 6.9 GM/DL 8.0 GM/DL 7.8 GM/DL Hematocrit 21.0 % 24.1 % 24.4 % Mean Corpuscular Volume 77.9 FL 79.3 FL Mean Corpuscular Hemoglobin 25.5 PG 25.4 PG Mean Corpuscular Hemoglobin 32.7 % 32.1 % Concent Red Cell Distribution Width 17.1 % 17.0 % Platelet Count 431 TH/MM3 411 TH/MM3 Mean Platelet Volume 9.6 FL 9.1 FL Neutrophils (%) (Auto) 78.2 % Lymphocytes (%) (Auto) 5.7 % Monocytes (%) (Auto) 12.6 % Eosinophils (%) (Auto) 2.8 % Basophils (%) (Auto) 0.7 % Neutrophils # (Auto) 18.7 TH/MM3 Lymphocytes # (Auto) 1.4 TH/MM3 Monocytes # (Auto) 3.0 TH/MM3 Eosinophils # (Auto) 0.7 TH/MM3 Basophils # (Auto) 0.2 TH/MM3 CBC Comment AUTO DIFF Differential Total Cells 100 Counted Neutrophils % (Manual) 63 % Band Neutrophils % 10 % Lymphocytes % 8 % Monocytes % 9 % Eosinophils % 3 % Basophils % 1 % Neutrophils # (Manual) 18.8 TH/MM3 Metamyelocytes 5 % Myelocytes 1 % Differential Comment FINAL DIFF MANUAL Toxic Granulation 1+ Laboratory Tests Test 05/11/16 05/11/16 05/12/16 03:08 16:53 04:45 Sodium Level 140 MEQ/L 143 MEQ/L Potassium Level 3.6 MEQ/L 3.6 MEQ/L Chloride Level 107 MEQ/L 109 MEQ/L Carbon Dioxide Level 26.1 MEQ/L 24.2 MEQ/L Anion Gap 7 MEQ/L 10 MEQ/L Blood Urea Nitrogen 61 MG/DL 52 MG/DL Creatinine 1.81 MG/DL 1.26 MG/DL Estimat Glomerular Filtration 46 ML/MIN 70 ML/MIN Rate Random Glucose 129 MG/DL 133 MG/DL Calcium Level 8.7 MG/DL 8.7 MG/DL Total Bilirubin 0.6 MG/DL Aspartate Amino Transf 29 U/L (AST/SGOT) Alanine Aminotransferase 11 U/L (ALT/SGPT) Alkaline Phosphatase 70 U/L Total Protein 5.8 GM/DL Albumin 1.8 GM/DL C-Reactive Protein 12.00 MG/DL Lipase 130 U/L Microbiology Date/Time Procedure Status Source Growth 05/11/16 17:41 Aerobic Blood Culture - Preliminary Resulted Blood Peripheral NO GROWTH IN 1 DAY 05/11/16 17:41 Anaerobic Blood Culture - Preliminary Resulted Blood Peripheral NO GROWTH IN 1 DAY 05/11/16 17:52 Aerobic Blood Culture - Preliminary Resulted Blood Line NO GROWTH IN 1 DAY 05/11/16 17:52 Anaerobic Blood Culture - Preliminary Resulted Blood Line NO GROWTH IN 1 DAY Imaging Abdomen X-Ray 05/07/16 0400 Signed Impressions: Service Date/Time: Saturday, May 07, 2016 05:03 - CONCLUSION: There are 2 tubes within the stomach. Jhonny Green MD Tube Placement X-Ray 05/05/16 0000 Signed Impressions: Service Date/Time: April 16:20 - CONCLUSION: Fluoroscopically guided nasogastric tube repositioning as above. Attempts were discontinued after multiple attempts with the tubing seen coiling within the patient's mouth region and proximal esophagus. Tessa Nichole MD Abdomen X-Ray 05/05/16 0000 Signed Impressions: Service Date/Time: April 13:42 - CONCLUSION: No evidence of obstruction. Stable placement of Dobbhoff tube and nasogastric tube. Tessa Nichole MD Abdomen/Pelvis CT 05/02/16 0000 Signed Impressions: Service Date/Time: Monday, May 02, 2016 15:43 - CONCLUSION: 1. The exam demonstrates extensive inflammatory change around the pancreas with fluid extending down into the paracolic gutters consistent with severe pancreatitis. This has significantly worsened when compared to previous dated 04/24/16. No organized pseudocyst is present. 2. NG tube and [place] in good position. Seng Rollins MD Abdomen X-Ray 04/30/16 0000 Signed Impressions: Service Date/Time: Saturday, April 30, 2016 05:12 - CONCLUSION: No dilated loops of small bowel. Stable dilated transverse colon. Hubert Garcia MD Chest X-Ray 04/27/16 0000 Signed Impressions: Service Date/Time: Wednesday, April 27, 2016 10:28 - CONCLUSION: 1. Dialysis catheter in good position. 2. Increasing bibasilar parenchymal changes worse on the left. Kermit Rollins MD FACR Renal Ultrasound 04/25/16 0000 Signed Impressions: Service Date/Time: Monday, April 25, 2016 15:01 - CONCLUSION: No evidence of hydronephrosis. Tom Seals MD Physical Exam GENERAL: Opens eyes, on the vent, NAD SKIN: No rashes. Warm, improving edema HEAD: Atraumatic. Normocephalic. No temporal or scalp tenderness. EYES: Pupils equal round and reactive. No injection or drainage. ENT: trach site ok. NECK: Trachea midline. Supple, nontender, no meningeal signs. CARDIOVASCULAR: Heart sounds audible. RESPIRATORY: Clear to auscultation. Breath sounds equal bilaterally with decrease in the bases. GASTROINTESTINAL: Abdomen distended, tenderness diffusely, hypoactive bowel sounds. GJ tube site ok. MUSCULOSKELETAL: Extremities without clubbing, cyanosis. Pedal edema noted, improving. NEUROLOGICAL: Sedated. Opens eyes Psych could not be assessed IV line sites with no evidence of infection. Assessment & Plan Remarks New sepsis (source: likely intra abdominal and aspiration/Health care associated pneumonia. Reviewed other sources: CL and HD cath, Cath associated UTI. Severe acute pancreatitis as most likely cause of new SIRS. No pseudocyst no evidence of any abscess. - last CT worse MSSA and Kleb pneumo pneumonia. New high fevers : ? new infection vs worsening or necrotizing pancreatitis. Acute resp failure on vent. Acute renal failure was on HD till 05/10/16. Alcoholism Recs: Plan for CT chest/A/P without contrast.Check CRP. Continue Meropenem IV (ASP: possible necrotizing fascitis, persistent fevers on broad spectrum antibiotics, PCN allergy) Continue Micafungin IV (ASP: fevers despite Diflucan, on BSA abdominal source as well as possible line infection ? fungemia) Monitor progress Monitor Sienna Mason RN, MD May 12, 2016 18:01
[2016-05-12] MEDS: CLINIMIX 4.25/25 (Cust.Renal Central) 1000 mL- </= 42 mls/hr IV-CENTRAL SCH ×8 (20:07)
[2016-05-12] MEDS: FAMOTIDINE 20 MG TAB NG SCH (20:09)
[2016-05-13] VITALS (19 sets, daily range): BP systolic 109–141; BP diastolic 61–81; PULSE 73–96; RESP 13–19; TEMP 97–99.3; O2SAT 94–100
[2016-05-13] MEDS: MEROPENEM INJ 500 MG in SODIUM CHLORIDE 0.9% INJ 100 ML IV SCH ×3 (00:45→15:58)
[2016-05-13] MEDS: CHLORHEXIDINE GLUCONATE 2 % 1 PACK (2 CLOTHS) TOP SCH (04:00)
[2016-05-13 04:02] LABS: HEMATOCRIT 24.7 % (39.0-51.0); MEAN CELL VOLUME 79.3 FL (80.0-100.0); MEAN CORPUSCULAR HEMOGLOBIN 25.9 PG (27.0-34.0); MEAN CORPUSCULAR HGB CONC 32.6 % (32.0-36.0); PLATELET COUNT 447 TH/MM3 (150-450); RED BLOOD COUNT 3.11 MIL/MM3 (4.50-5.90); RED CELL DISTRIBUTION WIDTH 16.8 % (11.6-17.2); REVIEW FLAG FINAL
[2016-05-13 04:26] LABS: BICARBONATE 26.1 MEQ/L (21.0-32.0); POTASSIUM 3.5 MEQ/L (3.5-5.1)
[2016-05-13] MEDS: oxyCODONE HCL ORAL CONC 20 MG/ML SYRINGE NG SCH ×5 (04:39→20:06)
[2016-05-13] MEDS: HYDROmorphone HCL PF 1 MG/ML VIAL IV PUSH PRN ×2 (04:40→22:45)
[2016-05-13] MEDS: METOCLOPRAMIDE HCL SYRUP 10 MG/10 ML UDC NG SCH ×3 (06:23→22:00)
[2016-05-13] MEDS: CHLORHEXIDINE 0.12% (ORAL KIT) 15 ML CUP MT SCH ×2 (09:06→20:07)
[2016-05-13] MEDS: HEPARIN SODIUM - SQ 10,000 UNITS/ML VIAL SQ SCH ×3 (09:06→22:45)
[2016-05-13] MEDS: FAMOTIDINE 20 MG TAB NG SCH ×2 (09:07→20:06)
[2016-05-13] MEDS: SODIUM CHLORIDE 0.9% FLUSH 5 ML FLUSH IV FLUSH SCH ×2 (09:08→20:07)
--- NOTE | 2016-05-13 13:19 | HHI.GIFU ---
Subjective Remarks Resting in bed with eyes open. Patient is able to answer yes or no questions by nodding. He nods yes when asked if his abdominal pain is better. So for he is tolerating tube feeds via the J-tube at 40 cc an hour, TPN at 42 cc an hour. 2 bowel movements yesterday but none today per nurse (Fernanda Zhang) Objective Vitals I&O Vital Signs Date Time Temp Pulse Resp B/P Pulse Ox O2 Delivery O2 Flow Rate FiO2 05/13/16 13:00 99.3 73 13 141/81 99 05/13/16 12:00 40 05/13/16 12:00 75 05/13/16 11:32 100 40 05/13/16 10:07 14 05/13/16 10:00 84 05/13/16 08:00 40 05/13/16 08:00 98.0 83 17 133/67 100 05/13/16 08:00 78 05/13/16 07:31 40 05/13/16 07:25 94 40 05/13/16 06:00 83 05/13/16 04:00 81 05/13/16 04:00 40 05/13/16 04:00 99.1 81 19 140/61 97 05/13/16 03:46 100 30 05/13/16 02:00 86 05/13/16 01:00 100 30 05/13/16 00:00 98.7 83 19 141/65 100 05/13/16 00:00 89 05/13/16 00:00 40 05/12/16 22:00 83 05/12/16 21:00 100 40 05/12/16 20:00 98.6 86 21 117/65 98 05/12/16 20:00 84 05/12/16 20:00 40 05/12/16 18:00 82 05/12/16 16:00 99.1 75 20 135/68 96 05/12/16 16:00 75 05/12/16 16:00 30 05/12/16 15:26 100 100 05/12/16 15:25 100 100 05/12/16 14:00 64 I/O 05/12/16 05/12/16 05/12/16 05/13/16 05/13/16 05/13/16 07:00 15:00 23:00 07:00 15:00 23:00 Intake Total 620 ml 901 ml 1266 ml 732 ml Output Total 700 ml 1100 ml 930 ml 900 ml Balance -80 ml -199 ml 336 ml -168 ml IV Total 331 ml 524 ml 325 ml 235 ml Tube Feeding 632 ml 173 ml TPN/PPN 289 ml 377 ml 309 ml 324 ml Output Urine Total 700 ml 750 ml 805 ml 750 ml Gastric Drainage Total 350 ml 125 ml 150 ml Tube Feeding Residual Discard 0 ml # Bowel Movements 1 2 0 0 Laboratory Laboratory Tests Test 05/13/16 03:10 White Blood Count 23.0 Red Blood Count 3.11 Hemoglobin 8.1 Hematocrit 24.7 Mean Corpuscular Volume 79.3 Mean Corpuscular Hemoglobin 25.9 Mean Corpuscular Hemoglobin 32.6 Concent Red Cell Distribution Width 16.8 Platelet Count 447 Mean Platelet Volume 9.6 Sodium Level 145 Potassium Level 3.5 Chloride Level 113 Carbon Dioxide Level 26.1 Anion Gap 6 Blood Urea Nitrogen 39 Creatinine 0.90 Estimat Glomerular Filtration 103 Rate Random Glucose 161 Calcium Level 8.9 Date/Time Procedure Status Source Growth 05/11/16 17:52 Aerobic Blood Culture - Preliminary Resulted Blood Line NO GROWTH IN 2 DAYS 05/11/16 17:52 Anaerobic Blood Culture - Preliminary Resulted Blood Line NO GROWTH IN 2 DAYS Imaging Last Impressions Gastrostomy Tube Placement 05/11/16 0000 Signed Impressions: Service Date/Time: Wednesday, May 11, 2016 13:49 - CONCLUSION: Uncomplicated gastrojejunostomy tube placement as above. El Santiago MD Chest X-Ray 05/11/16 0000 Signed Impressions: Service Date/Time: Wednesday, May 11, 2016 18:10 - CONCLUSION: Adequate placement of left subclavian central line. Scattered bilateral patchy densities. Abdi Hodges MD Chest CT 05/11/16 0000 Signed Impressions: Service Date/Time: May 14:52 - CONCLUSION: 1. Bilateral pulmonary opacity with left lower lobe atelectasis versus consolidation and patchy bilateral mid to upper lung atelectasis versus mild consolidation. 2. Small left pleural effusion. 3. Evidence of old granulomatous disease. Kyle Ludwig MD Abdomen/Pelvis CT 05/11/16 0000 Signed Impressions: Service Date/Time: May 14:52 - CONCLUSION: 1. Severe peripancreatic inflammatory changes again seen. No organized rounded fluid collections identified. 2. Left lower lobe atelectasis/consolidation and small pleural effusion unchanged. Kyle Ludwig MD Abdomen X-Ray 05/09/16 0900 Signed Impressions: Service Date/Time: Monday, May 09, 2016 09:02 - CONCLUSION: 2 tubes in the stomach one nasogastric one Dobbhoff both terminate in the distal body or antrum of the stomach Braden Larson MD Tube Placement X-Ray 05/05/16 0000 Signed Impressions: Service Date/Time: April 16:20 - CONCLUSION: Fluoroscopically guided nasogastric tube repositioning as above. Attempts were discontinued after multiple attempts with the tubing seen coiling within the patient's mouth region and proximal esophagus. Tessa Nichole MD Renal Ultrasound 04/25/16 0000 Signed Impressions: Service Date/Time: Monday, April 25, 2016 15:01 - CONCLUSION: No evidence of hydronephrosis. Tom Seals MD Physical Exam HEENT: Normocephalic; atraumatic; no jaundice. CHEST: Rhonchi. Tracheostomy to vent CARDIAC: RRR ABDOMEN: Semifirm- but improved, distended, diffuse tenderness, bowel sounds are hypoactive. G/J tube EXTREMITIES: Generalized edema. 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 (Fernanda Zhang) Assessment and Plan Plan ASSESSMENT: - Severe pancreatitis (acute on chronic), with heavy alcohol intake about [address] Abdomen and pelvis (04/24/16)---> Inflammatory stranding in and around the pancreas suggestive of pancreatitis without any focal areas of necrosis or pseudocyst formation. Mildly fatty liver. Rpt. CT Scan abdomen and pelvis Without IV contrast (05/02/16)-----> exam demonstrates extensive inflammatory change around the pancreas with fluid extending down into the paracolic gutters consistent with severe pancreatitis. This has significantly worsened when compared to the previous stated 04/24/16. No organized pseudocyst is present. Pt with persistent leukocytosis WBC 24.9 and fevers. LFT stable. S /P G/J tube (05/11). Repeat CT Abdomen and pelvis without IV contrast (05/12/16)--> Severe peripancreatic inflammatory changes again seen. No organized rounded fluid collections identified. Left lower lobe atelectasis/ consolidation and small pleural effusion. Persistent leukocytosis with a WBC of 23.0, low-grade fevers. TPN. Post pyloric feeding started yesterday and so far he is tolerating this at 40 cc an hour. Will increase to goal rate and DC TPN (42cc/hr, being cut down now) once tolerating that. Clinically, he looks better. - Ileus/vs obstruction. IMPROVED. - Persistent Fever/Leukocytosis. Micagungin, Meropenum - Anemia. 8.05/03.7. - ARF. Off HD - Hep-c (+)- not sure if he had tx or not, he is not a candidate due to drinking behavior - Acute respiratory failure - per CCM - DM, COPD per [facility] Plan: - Jevity 1.5 at 50cc/hr - TPN was decreased - Once TF is at 50cc/hr, then d/c TPN and notify pharmacy - Abx per ID - Monitor labs - CCM following - It Service Continuity Supervisor following - Supportive care - Further recommendations to follow based on results of above - PT seen and examined by Dr. Vogt and myself and this note is written on his behalf (Fernanda Zhang) Physician Comments Patient seen and examined Agree with above Continue with current supportive care Monitor labs (Joaquín Vogt MD) Fernanda Zhang May 13, 2016 13:19 Joaquín Vogt MD May 13, 2016 17:11
--- NOTE | 2016-05-13 13:25 | HHI.IDPN ---
Subjective Subjective Remarks is a 65 y/o AAM with PMHx of COPD, CAD/CHF, DM, heavy alcohol abuse , Hepatitis C, pancreatitis in past. ID following for possible sepsis, acute pancreatitis and pneumonia. Overnight events reviewed with RN. Fevers trending down since Antibiotics changed. On the vent. Trach and GJ tube in place. Secretions myers, thin frequent suctioning. Opens eyes when stimulated, follows commands and responds by nodding. WBC remains elevated. UO good. Antibiotics Meropenem IV Micafungin IV Lines Line sites with no e/o infection Past Medical History reviewed Allergies: Coded Allergies: Penicillin (Verified Allergy, Severe, HIVES, 04/24/16) Objective . Vital Signs Date Time Temp Pulse Resp B/P Pulse Ox O2 Delivery O2 Flow Rate FiO2 05/13/16 13:00 99.3 73 13 141/81 99 05/13/16 12:00 40 05/13/16 12:00 75 05/13/16 11:32 100 40 05/13/16 10:07 14 05/13/16 10:00 84 05/13/16 08:00 40 05/13/16 08:00 98.0 83 17 133/67 100 05/13/16 08:00 78 05/13/16 07:31 40 05/13/16 07:25 94 40 05/13/16 06:00 83 05/13/16 04:00 81 05/13/16 04:00 40 05/13/16 04:00 99.1 81 19 140/61 97 05/13/16 03:46 100 30 05/13/16 02:00 86 05/13/16 01:00 100 30 05/13/16 00:00 98.7 83 19 141/65 100 05/13/16 00:00 89 05/13/16 00:00 40 05/12/16 22:00 83 05/12/16 21:00 100 40 05/12/16 20:00 98.6 86 21 117/65 98 05/12/16 20:00 84 05/12/16 20:00 40 05/12/16 18:00 82 05/12/16 16:00 99.1 75 20 135/68 96 05/12/16 16:00 75 05/12/16 16:00 30 05/12/16 15:26 100 100 05/12/16 15:25 100 100 05/12/16 14:00 64 05/12/16 05/12/16 05/13/16 15:00 23:00 07:00 Intake Total 901 ml 1266 ml 732 ml Output Total 1100 ml 930 ml 900 ml Balance -199 ml 336 ml -168 ml IV Total 524 ml 325 ml 235 ml Tube Feeding 632 ml 173 ml TPN/PPN 377 ml 309 ml 324 ml Output Urine Total 750 ml 805 ml 750 ml Gastric Drainage Total 350 ml 125 ml 150 ml Tube Feeding Residual Discard 0 ml # Bowel Movements 2 0 0 . Laboratory Tests Test 05/12/16 05/13/16 04:45 03:10 White Blood Count 24.9 TH/MM3 23.0 TH/MM3 Red Blood Count 3.08 MIL/MM3 3.11 MIL/MM3 Hemoglobin 7.8 GM/DL 8.1 GM/DL Hematocrit 24.4 % 24.7 % Mean Corpuscular Volume 79.3 FL 79.3 FL Mean Corpuscular Hemoglobin 25.4 PG 25.9 PG Mean Corpuscular Hemoglobin 32.1 % 32.6 % Concent Red Cell Distribution Width 17.0 % 16.8 % Platelet Count 411 TH/MM3 447 TH/MM3 Mean Platelet Volume 9.1 FL 9.6 FL Laboratory Tests Test 05/11/16 05/12/16 05/13/16 16:53 04:45 03:10 C-Reactive Protein 12.00 MG/DL Lipase 130 U/L Sodium Level 143 MEQ/L 145 MEQ/L Potassium Level 3.6 MEQ/L 3.5 MEQ/L Chloride Level 109 MEQ/L 113 MEQ/L Carbon Dioxide Level 24.2 MEQ/L 26.1 MEQ/L Anion Gap 10 MEQ/L 6 MEQ/L Blood Urea Nitrogen 52 MG/DL 39 MG/DL Creatinine 1.26 MG/DL 0.90 MG/DL Estimat Glomerular Filtration 70 ML/MIN 103 ML/MIN Rate Random Glucose 133 MG/DL 161 MG/DL Calcium Level 8.7 MG/DL 8.9 MG/DL Microbiology Date/Time Procedure Status Source Growth 05/11/16 17:41 Aerobic Blood Culture - Preliminary Resulted Blood Peripheral NO GROWTH IN 2 DAYS 05/11/16 17:41 Anaerobic Blood Culture - Preliminary Resulted Blood Peripheral NO GROWTH IN 2 DAYS 05/11/16 17:52 Aerobic Blood Culture - Preliminary Resulted Blood Line NO GROWTH IN 2 DAYS 05/11/16 17:52 Anaerobic Blood Culture - Preliminary Resulted Blood Line NO GROWTH IN 2 DAYS Imaging Abdomen X-Ray 05/07/16 0400 Signed Impressions: Service Date/Time: Saturday, May 07, 2016 05:03 - CONCLUSION: There are 2 tubes within the stomach. Jhonny Green MD Tube Placement X-Ray 05/05/16 0000 Signed Impressions: Service Date/Time: April 16:20 - CONCLUSION: Fluoroscopically guided nasogastric tube repositioning as above. Attempts were discontinued after multiple attempts with the tubing seen coiling within the patient's mouth region and proximal esophagus. Tessa Nichole MD Abdomen X-Ray 05/05/16 0000 Signed Impressions: Service Date/Time: April 13:42 - CONCLUSION: No evidence of obstruction. Stable placement of Dobbhoff tube and nasogastric tube. Tessa Nichole MD Abdomen/Pelvis CT 05/02/16 0000 Signed Impressions: Service Date/Time: Monday, May 02, 2016 15:43 - CONCLUSION: 1. The exam demonstrates extensive inflammatory change around the pancreas with fluid extending down into the paracolic gutters consistent with severe pancreatitis. This has significantly worsened when compared to previous dated 04/24/16. No organized pseudocyst is present. 2. NG tube and Hardin in good position. Seng Rollins MD Abdomen X-Ray 04/30/16 0000 Signed Impressions: Service Date/Time: Saturday, April 30, 2016 05:12 - CONCLUSION: No dilated loops of small bowel. Stable dilated transverse colon. Hubert Garcia MD Chest X-Ray 04/27/16 0000 Signed Impressions: Service Date/Time: Wednesday, April 27, 2016 10:28 - CONCLUSION: 1. Dialysis catheter in good position. 2. Increasing bibasilar parenchymal changes worse on the left. Kermit Rollins MD FACR Renal Ultrasound 04/25/16 0000 Signed Impressions: Service Date/Time: Monday, April 25, 2016 15:01 - CONCLUSION: No evidence of hydronephrosis. Tom Seals MD Physical Exam GENERAL: Opens eyes, on the vent, NAD SKIN: No rashes. Warm, improving edema HEAD: Atraumatic. Normocephalic. No temporal or scalp tenderness. EYES: Pupils equal round and reactive. No injection or drainage. ENT: trach site ok. NECK: Trachea midline. Supple, nontender, no meningeal signs. CARDIOVASCULAR: Heart sounds audible. RESPIRATORY: Clear to auscultation. Breath sounds equal bilaterally with decrease in the bases. GASTROINTESTINAL: Abdomen distended, tenderness diffusely, hypoactive bowel sounds. GJ tube site ok. MUSCULOSKELETAL: Extremities without clubbing, cyanosis. Pedal edema noted, improving. NEUROLOGICAL: Sedated. Opens eyes Psych could not be assessed IV line sites with no evidence of infection. Assessment & Plan Remarks Sepsis (source: likely intra abdominal and aspiration/Health care associated pneumonia. Reviewed other sources: CL and HD cath, Cath associated UTI. Severe acute pancreatitis as most likely cause of new SIRS. No pseudocyst no evidence of any abscess. - last CT worse clinically improved with Meropenem and Micafungin IV so / pancreatitis related peritonitis. MSSA and Kleb pneumo pneumonia. New high fevers : ? new infection vs worsening or necrotizing pancreatitis. Acute resp failure on vent. Acute renal failure was on HD till 05/10/16. Alcoholism Recs: Continue Meropenem IV (ASP: possible necrotizing fascitis, persistent fevers on broad spectrum antibiotics, PCN allergy) Continue Micafungin IV (ASP: fevers despite Diflucan, on BSA abdominal source as well as possible line infection ? fungemia) Above regimen plan on total of 10 days. Ok to transfer to LTAC from my standpoint. Recommend ID consult if transferred to LTAC. CBC with diff, CMP every 2-3 days or based on clinical condition. Monitor progress Monitor Sienna Mason RN, MD May 13, 2016 13:25
--- NOTE | 2016-05-13 14:19 | HHI.CCPN ---
Subjective Remarks/Hospital Course This is a 65-year-old male with history of COPD, strong alcohol abuse history, diabetes, questionable history of heart failure, coronary artery disease who initially presented to the emergency department 04/25 with abdominal pain and was found to have acute pancreatitis. He was noted to the hospital at that time. Over the subsequent 48 hours, he developed worsening hypoxia as well as an acute kidney injury. This was initially thought to be CHF exacerbation and volume overload. He was given diuretics without a good response. His creatinine has trended up to 6. Nephrology was consulted and are considering renal replacement therapy. Tonight throughout the night, the patient became more hypoxic and dyspneic with increasing oxygen requirement. He is transferred to the ICU for his acute hypoxic respiratory failure. The patient is nauseated and has vomited a few times. 04/28: Intubated for respiratory distress with hypoxemia, now with acceptable gas exchange. Tolerating dialysis, try to extubate shortly. 04/29: Abdomen much too distended for extubation. NG tube placed with Roman forceps. 04/30: Abdomen remains tensely distended. No peritoneal irritation. BS few. 05/01: Abdomen remains tensely distended. No peritoneal irritation. 05/02: Abdominal distention worse. Pain worse. Will get CT to look for perforation. 05/03: CT abdomen with rip-roaring inflammatory process involving the pancreas; much worse. Sputum with multiple organisms. Patient clinically more critically ill. 05/04: Will start TFs if OK with GI service. 05/05: Dobbhoff tube in stomach. Will try to advance to duodenum and avoid TPN if at all possible. 05/06: DHT not post-pyloric, will advance and get KUB in a.m. 05/07: Persistent low grade fever and leukocytosis. Ileus persists. Goal is to get intestinal motility restored, decompress abdomen, extubate, and transfer to son's area in [place] for long-term care. 05/08: Remains sedated, arousable, orally intubated on mechanical ventilation. 05/09: Sedated, arousable, orally intubated on mechanical ventilation. On TPN 05/10: Sedated, arousable, orally intubated on mechanical ventilation. Remains on TPN as Dobbhoff remains in stomach. Scheduled for percutaneous tracheostomy today. Awaiting G/J tube placement by GI. 05/11: plan for g/j today. getting 2 units prbc for hgb 6.9. s/p trach yesterday. 05/12: g/j yesterday. persistently febrile yesterday. wbc still elevated. Lipase 130. awaiting repeat CT abd/pelvis results. new line placed yesterday and old line discontinued. cultures pending. 05/13: Patient tolerating C Pap 10 over 5. Waking up easily, follows commands on upper and lower extremities. WBC count stable at 23, ID is following. CT abdomen pelvis yesterday shows severe peripancreatic inflammatory changes Objective Vital Signs Date Time Temp Pulse Resp B/P Pulse Ox O2 Delivery O2 Flow Rate FiO2 05/13/16 13:00 99.3 73 13 141/81 99 05/13/16 12:00 40 Intake and Output 05/12/16 05/12/16 05/13/16 08:00 16:00 00:00 Intake Total 620 ml 901 ml 1266 ml Output Total 700 ml 1100 ml 930 ml Balance -80 ml -199 ml 336 ml Result Diagram: 05/13/16 0310 05/13/16 0310 Imaging Critical care bedside ultrasound 04/27: Grossly preserved left ventricular function. Normal RV size and function. Small collapsible IVC which very strongly with respirations and is almost completely flat with inspiration. No pericardial effusion. Objective Remarks GENERAL: Middle-aged male, wakes upon stimulation HEENT: Normocephalic. Atraumatic. NECK: Supple, orally intubated. CHEST: On mechanical ventilation, Scattered rhonchi, decreased BS bases. Good ling air movement. Copious secretions persist. CARDIOVASCULAR: normal rate, regular rhythm. No murmurs. No JVD. ABDOMEN: Distended, firm, generally tender to palpation, Occasional BS. MUSCULOSKELETAL: Trace peripheral edema. Warm, well perfused. NEUROLOGICAL: Opens eyes to voice. Tracks with eyes. Follows commands all 4 extremities. A/P Assessment and Plan Plan by systems: Neurologic: Alcohol abuse Metabolic encephalopathy Pain associated with acute pancreatitis fentanyl for goal RASS -1. Daily sedation vacation - Scheduled po oxycodone 10mg for pain - Dilaudid to 1mg iv q4h prn for breakthrough pain - attempt to wean off fentanyl. - iv tylenol 1gm q8h prn for pain or fever. Respiratory: Acute hypoxic respiratory failure ARDS COPD Vent bundle Head of bed at 30 Wean FiO2 for goal SPO2 greater than 90% Nebs every 6 and every 2 when necessary --attempted trach collar trials today-failed due to immediate cardiac dysrhythmia --OOB to stretcher chair daily. Cardiovascular: Sinus tachycardia SIRS response Continue telemetry SIRS likely /2 acute pancreatitis Renal: Acute kidney injury- improving. Likely has a component of prerenal, but also likely from acute pancreatitis Hardin catheter --Strict I/Os, monitor and replete electro lites, follow BUN/creatinine - nephrology following. vas cath removed 05/11. FEN/GI: Severe intravascular volume depletion- resolved. Severe acute pancreatitis Severe hypocalcemia Metabolic acidosis Currently nothing by mouth. TPN for nutrition started 05/07. OG tube to wall suction. GJ tube placed 05/11. --Trickle TF at 20cc/hr, do not titrate for now. Daily CMP, CBC Heme/ID: Leukocytosis Anemia secondary to acute blood loss and critical illness Likely reactive secondary to acute pancreatitis Stool for C. difficile negative (05/08) Urine, sputum, blood cultures. ABX per ID service. Daily CBC --s/p 2 units PRBC 05/11. stable hgb. ID - Leukocytosis with shift. Dr. Hercules ID service advising. Sputum 05/01 - Klebsiella, E. coli, Staph MSSA Endocrine: Diabetes -- SSI, medium scale, every 6 hours Prophylaxis: GI Prophylaxis Protonix 40 mg IV daily 24 hours DVT Prophylaxis -- SCDs Heparin 5000 every 12h Lines: 04/27 left subclavian triple-lumen catheter - discontinued. New central line placed right subclavian 05/07, d/c'd 05/11. left SC TLC placed 05/11. Wilfred Paulson had lengthy discussions with patient's son at bedside about the severity of his illness and poor prognosis. Overall impression: Marked abdominal distention persists. Tolerates SBT but won' t ventilate with severe abdominal distention. Enteral nutrition to start when post-pyloric access. Time spent on critical care excluding procedures 30 minutes Gerson Cuevas MD May 13, 2016 14:19
[2016-05-13] MEDS ORDERED: POTASSIUM CL 40 MEQ/30 ML LIQ UDC PO ONE (15:00)
[2016-05-13] MEDS: MICAFUNGIN INJ 150 MG in SODIUM CHLORIDE 0.9% INJ 100 ML IV SCH (15:58)
[2016-05-13] MEDS: diphenhydrAMINE HCL 25 MG CAP PO PRN (22:45)
[2016-05-14] VITALS (17 sets, daily range): BP systolic 126–159; BP diastolic 65–94; PULSE 76–99; RESP 16–27; TEMP 99–100.1; O2SAT 97–100
[2016-05-14] MEDS: oxyCODONE HCL ORAL CONC 20 MG/ML SYRINGE NG SCH ×7 (00:28→23:49)
[2016-05-14] MEDS: MEROPENEM INJ 500 MG in SODIUM CHLORIDE 0.9% INJ 100 ML IV SCH ×3 (00:28→16:22)
[2016-05-14] MEDS: HYDROmorphone HCL PF 1 MG/ML VIAL IV PUSH PRN ×2 (02:35→08:56)
[2016-05-14] MEDS: CHLORHEXIDINE GLUCONATE 2 % 1 PACK (2 CLOTHS) TOP SCH (04:00)
[2016-05-14 05:01] LABS: AUTOMATED NEUTROPHIL # 13.7 TH/MM3 (1.8-7.7); BASOPHIL # 0.2 TH/MM3 (0-0.2); BASOPHIL % 0.8 % (0.0-2.0); EOSINOPHIL # 0.9 TH/MM3 (0-0.4); EOSINOPHIL % 5.1 % (0.0-4.0); HEMATOCRIT 24.6 % (39.0-51.0); LYMPH % 8.5 % (9.0-44.0); LYMPHOCYTE # 1.6 TH/MM3 (1.0-4.8); MEAN CELL VOLUME 79.2 FL (80.0-100.0); MEAN CORPUSCULAR HGB CONC 32.8 % (32.0-36.0); MONO % 11.7 % (0.0-8.0); NEUT % 73.9 % (16.0-70.0); PLATELET COUNT 506 TH/MM3 (150-450); RED CELL DISTRIBUTION WIDTH 16.7 % (11.6-17.2); WHITE BLOOD COUNT 18.6 TH/MM3 (4.0-11.0)
[2016-05-14 05:06] LABS: HEMO FLAGS AUTO DIFF
--- NOTE | 2016-05-14 05:21 | RADRPT ---
EXAM DATE/TIME: 05/14/2016 04:36 [facility] COMPARISON: CT THORAX W/O CONTRAST, May 12, 2016, 14:52. CHEST SINGLE AP, May 11, 2016, 18:10. INDICATIONS : Shortness of breath. MEDICAL HISTORY : Hypertension. Cardiovascular disease. Diabetes mellitus type II. SURGICAL HISTORY : None. ENCOUNTER: Subsequent ACUITY: 2 weeks PAIN SCORE: Non-responsive. LOCATION: Bilateral chest FINDINGS: Portable AP view of the chest demonstrates a normal-sized cardiac silhouette. Tracheostomy and left s ubclavian central line remain present. Right subclavian central line has been removed. There is stabl e left basilar pleural-parenchymal opacity and mild patchy airspace opacity in the right mid and lowe r lung zone. No pneumothorax is visualized. CONCLUSION: Stable chest x-ray with small left pleural effusion with associated volume loss and/or consolidation. There is also stable patchy airspace opacity in the right mid to lower lung zone. Mason Ceja MD on May 14, 2016 at 5:18 Board Certified Radiologist. This report was verified electronically.
[2016-05-14 05:31] LABS: ALKALINE PHOSPHATASE 98 U/L (45-117); ALT (GPT) 12 U/L (12-78); ANION GAP 7 MEQ/L (5-15); AST (GOT) 30 U/L (15-37); BICARBONATE 26.7 MEQ/L (21.0-32.0); BLOOD UREA NITROGEN 26 MG/DL (7-18); CHLORIDE 117 MEQ/L (98-107); GLOMERULAR FILTRATION RATE 137 ML/MIN (>89); MAGNESIUM 1.4 MG/DL (1.5-2.5); POTASSIUM 3.7 MEQ/L (3.5-5.1); SODIUM (NA) 151 MEQ/L (136-145); TOTAL BILIRUBIN ADULT 0.4 MG/DL (0.2-1.0)
[2016-05-14] MEDS: METOCLOPRAMIDE HCL SYRUP 10 MG/10 ML UDC NG SCH ×3 (06:34→22:00)
[2016-05-14] MEDS: FAMOTIDINE 20 MG TAB NG SCH ×2 (08:56→20:29)
[2016-05-14] MEDS: HEPARIN SODIUM - SQ 10,000 UNITS/ML VIAL SQ SCH ×3 (08:56→23:49)
[2016-05-14] MEDS: CHLORHEXIDINE 0.12% (ORAL KIT) 15 ML CUP MT SCH ×2 (08:57→20:28)
[2016-05-14] MEDS: SODIUM CHLORIDE 0.9% FLUSH 5 ML FLUSH IV FLUSH SCH ×2 (08:57→20:29)
[2016-05-14 09:33] LABS: OVALOCYTES 1+ (NORMAL); SCAN/DIFF AUTO DIFF CONFIRMED; TARGET CELLS 2+ (NORMAL)
--- NOTE | 2016-05-14 13:07 | HHI.CCPN ---
Subjective Remarks/Hospital Course This is a 65-year-old male with history of COPD, strong alcohol abuse history, diabetes, questionable history of heart failure, coronary artery disease who initially presented to the emergency department 04/25 with abdominal pain and was found to have acute pancreatitis. He was noted to the hospital at that time. Over the subsequent 48 hours, he developed worsening hypoxia as well as an acute kidney injury. This was initially thought to be CHF exacerbation and volume overload. He was given diuretics without a good response. His creatinine has trended up to 6. Nephrology was consulted and are considering renal replacement therapy. Tonight throughout the night, the patient became more hypoxic and dyspneic with increasing oxygen requirement. He is transferred to the ICU for his acute hypoxic respiratory failure. The patient is nauseated and has vomited a few times. 04/28: Intubated for respiratory distress with hypoxemia, now with acceptable gas exchange. Tolerating dialysis, try to extubate shortly. 04/29: Abdomen much too distended for extubation. NG tube placed with Roman forceps. 04/30: Abdomen remains tensely distended. No peritoneal irritation. BS few. 05/01: Abdomen remains tensely distended. No peritoneal irritation. 05/02: Abdominal distention worse. Pain worse. Will get CT to look for perforation. 05/03: CT abdomen with rip-roaring inflammatory process involving the pancreas; much worse. Sputum with multiple organisms. Patient clinically more critically ill. 05/04: Will start TFs if OK with GI service. 05/05: Dobbhoff tube in stomach. Will try to advance to duodenum and avoid TPN if at all possible. 05/06: DHT not post-pyloric, will advance and get KUB in a.m. 05/07: Persistent low grade fever and leukocytosis. Ileus persists. Goal is to get intestinal motility restored, decompress abdomen, extubate, and transfer to son's area in [place] for long-term care. 05/08: Remains sedated, arousable, orally intubated on mechanical ventilation. 05/09: Sedated, arousable, orally intubated on mechanical ventilation. On TPN 05/10: Sedated, arousable, orally intubated on mechanical ventilation. Remains on TPN as Dobbhoff remains in stomach. Scheduled for percutaneous tracheostomy today. Awaiting G/J tube placement by GI. 05/11: plan for g/j today. getting 2 units prbc for hgb 6.9. s/p trach yesterday. 05/12: g/j yesterday. persistently febrile yesterday. wbc still elevated. Lipase 130. awaiting repeat CT abd/pelvis results. new line placed yesterday and old line discontinued. cultures pending. 05/13: Patient tolerating C Pap 10 over 5. Waking up easily, follows commands on upper and lower extremities. WBC count stable at 23, ID is following. CT abdomen pelvis yesterday shows severe peripancreatic inflammatory changes 05/14: Did not tolerate TP yesterday, developed nonsustained V. tach. Wakes up easily follows commands. WBC trending down, tolerating tube feeds. Off TPN. Magnesium 1.4 getting replaced Objective Vital Signs Date Time Temp Pulse Resp B/P Pulse Ox O2 Delivery O2 Flow Rate FiO2 05/14/16 11:43 100 40 05/14/16 06:00 80 05/14/16 04:00 99.1 21 159/78 Intake and Output 05/13/16 05/13/16 05/14/16 08:00 16:00 00:00 Intake Total 732 ml 840 ml 695 ml Output Total 900 ml 650 ml 650 ml Balance -168 ml 190 ml 45 ml Result Diagram: 05/14/16 0435 05/14/16 0435 Imaging Critical care bedside ultrasound 04/27: Grossly preserved left ventricular function. Normal RV size and function. Small collapsible IVC which very strongly with respirations and is almost completely flat with inspiration. No pericardial effusion. Objective Remarks GENERAL: Middle-aged male, wakes upon stimulation HEENT: Normocephalic. Atraumatic. NECK: Supple, orally intubated. CHEST: On mechanical ventilation, Scattered rhonchi, decreased BS bases. Good ling air movement. Copious secretions persist. CARDIOVASCULAR: normal rate, regular rhythm. No murmurs. No JVD. ABDOMEN: Distended, firm, generally tender to palpation, Occasional BS. MUSCULOSKELETAL: Trace peripheral edema. Warm, well perfused. NEUROLOGICAL: Opens eyes to voice. Tracks with eyes. Follows commands all 4 extremities. A/P Assessment and Plan Plan by systems: Neurologic: Alcohol abuse Metabolic encephalopathy Pain associated with acute pancreatitis - fentanyl for goal RASS -1. Daily sedation vacation - Scheduled po oxycodone 10mg for pain - Dilaudid to 1mg iv q4h prn for breakthrough pain - iv tylenol 1gm q8h prn for pain or fever. Respiratory: Acute hypoxic respiratory failure ARDS COPD Vent bundle Head of bed at 30 Wean FiO2 for goal SPO2 greater than 90% Nebs every 6 and every 2 when necessary --attempted trach collar trials 2/3-failed due to immediate cardiac dysrhythmia , trial again today --OOB to stretcher chair daily. Cardiovascular: Sinus tachycardia SIRS response NSVT 05/13 most likely from hypomag Continue telemetry SIRS likely / acute pancreatitis -- Keep Mag >2, K>4 Renal: Acute kidney injury- improving. Likely has a component of prerenal, but also likely from acute pancreatitis Hardin catheter --Strict I/Os, monitor and replete electro lites, follow BUN/creatinine - nephrology following. vas cath removed 05/11. FEN/GI: Severe intravascular volume depletion- resolved. Severe acute pancreatitis Severe hypocalcemia Metabolic acidosis Currently tube feed to goal. TPN for nutrition started 05/07 Dcd 05/14. GJ tube placed 05/11. Daily CMP, CBC Heme/ID: Leukocytosis Anemia secondary to acute blood loss and critical illness Likely reactive secondary to acute pancreatitis Stool for C. difficile negative (05/08) Urine, sputum, blood cultures. ABX per ID service. Daily CBC --s/p 2 units PRBC 05/11. stable hgb. ID - Leukocytosis with shift. Dr. Hercules ID service advising. Sputum 05/01 - Klebsiella, E. coli, Staph MSSA Endocrine: Diabetes -- SSI, medium scale, every 6 hours Prophylaxis: GI Prophylaxis Protonix 40 mg IV daily 24 hours DVT Prophylaxis -- SCDs Heparin 5000 every 12h Lines: 04/27 left subclavian triple-lumen catheter - discontinued. New central line placed right subclavian 05/07, d/c'd 05/11. left SC TLC placed 05/11. Wilfred Paulson had lengthy discussions with patient's son at bedside about the severity of his illness and poor prognosis. Overall impression: Marked abdominal distention persists. Tolerates SBT but won' t ventilate with severe abdominal distention. Enteral nutrition to start when post-pyloric access. Time spent on critical care excluding procedures 30 minutes Gerson Cuevas MD May 14, 2016 13:07
[2016-05-14] MEDS ORDERED: POTASSIUM CL 40 MEQ/30 ML LIQ UDC PO/TUBE PRN (13:15)
[2016-05-14] MEDS ORDERED: POTASSIUM PHOSPHATE MONOBASIC 500 MG TAB PO/TUBE PRN (13:15)
[2016-05-14] MEDS ORDERED: MAGNESIUM SULFATE INJ 4 GM in SODIUM CHLORIDE 0.9% INJ 92 ML IV PRN (13:15)
[2016-05-14] MEDS ORDERED: POTASSIUM PHOSPHATE INJ 30 MMOL in SODIUM CHLOR 0.9% 250 ML INJ 250 ML IV PRN (13:15)
[2016-05-14] MEDS ORDERED: POTASSIUM CHLOR 20 MEQ PREMIX 100 ML IV PRN (13:15)
[2016-05-14] MEDS ORDERED: MAGNESIUM SULFATE INJ 2 GM in SODIUM CHLORIDE 0.9% INJ 96 ML IV PRN (13:15)
[2016-05-14] MEDS ORDERED: MAGNESIUM OXIDE 400 MG TAB PO PRN (13:15)
[2016-05-14] MEDS ORDERED: SODIUM PHOSPHATE INJ 30 MMOL in SODIUM CHLOR 0.9% 250 ML INJ 240 ML IV PRN (13:15)
[2016-05-14] MEDS ORDERED: POTASSIUM PHOSPHATE MONOBASIC 500 MG TAB PO PRN (13:15)
[2016-05-14] MEDS ORDERED: POTASSIUM CHLOR 40 MEQ PREMIX 100 ML IV PRN ×2 (13:15)
--- NOTE | 2016-05-14 13:25 | HHI.GIFU ---
Subjective Remarks patient is resting in bed, able to answer yes or no questions, he denies nausea , vomiting or abd pain, he is having Bms. tolerating TF to goal rate of 50, per nurse, he is moving his bowels and having large BMs, TPN discontinued. (Kodi Montgomery) Objective Vitals I&O Vital Signs Date Time Temp Pulse Resp B/P Pulse Ox O2 Delivery O2 Flow Rate FiO2 05/14/16 11:43 100 40 05/14/16 07:45 100 40 05/14/16 06:00 80 05/14/16 04:00 82 05/14/16 04:00 100 40 05/14/16 04:00 40 05/14/16 04:00 99.1 82 21 159/78 100 05/14/16 02:00 76 05/14/16 00:20 100 40 05/14/16 00:00 99.1 77 16 126/68 100 05/14/16 00:00 77 05/14/16 00:00 40 05/13/16 22:00 90 05/13/16 20:34 100 40 05/13/16 20:00 40 05/13/16 20:00 99.0 85 19 109/65 100 05/13/16 20:00 84 05/13/16 18:00 87 05/13/16 16:00 77 05/13/16 16:00 97.0 81 14 135/78 98 05/13/16 16:00 40 05/13/16 14:42 100 40 05/13/16 14:00 96 I/O 05/13/16 05/13/16 05/13/16 05/14/16 05/14/16 05/14/16 07:00 15:00 23:00 07:00 15:00 23:00 Intake Total 732 ml 840 ml 695 ml 706 ml Output Total 900 ml 650 ml 650 ml 725 ml Balance -168 ml 190 ml 45 ml -19 ml IV Total 235 ml 313 ml 282 ml 250 ml Tube Feeding 173 ml 273 ml 413 ml 456 ml TPN/PPN 324 ml 254 ml Output Urine Total 750 ml 650 ml 550 ml 575 ml Gastric Drainage Total 150 ml 100 ml 150 ml # Bowel Movements 0 0 Laboratory Laboratory Tests Test 05/14/16 04:35 White Blood Count 18.6 Red Blood Count 3.10 Hemoglobin 8.1 Hematocrit 24.6 Mean Corpuscular Volume 79.2 Mean Corpuscular Hemoglobin 26.0 Mean Corpuscular Hemoglobin 32.8 Concent Red Cell Distribution Width 16.7 Platelet Count 506 Mean Platelet Volume 9.6 Neutrophils (%) (Auto) 73.9 Lymphocytes (%) (Auto) 8.5 Monocytes (%) (Auto) 11.7 Eosinophils (%) (Auto) 5.1 Basophils (%) (Auto) 0.8 Neutrophils # (Auto) 13.7 Lymphocytes # (Auto) 1.6 Monocytes # (Auto) 2.2 Eosinophils # (Auto) 0.9 Basophils # (Auto) 0.2 CBC Comment AUTO DIFF Differential Comment AUTO DIFF CONFIRMED Target Cells 2+ Ovalocytes 1+ Sodium Level 151 Potassium Level 3.7 Chloride Level 117 Carbon Dioxide Level 26.7 Anion Gap 7 Blood Urea Nitrogen 26 Creatinine 0.70 Estimat Glomerular Filtration 137 Rate Random Glucose 120 Calcium Level 8.8 Magnesium Level 1.4 Total Bilirubin 0.4 Aspartate Amino Transf 30 (AST/SGOT) Alanine Aminotransferase 12 (ALT/SGPT) Alkaline Phosphatase 98 Total Protein 6.0 Albumin 1.7 Date/Time Procedure Status Source Growth 05/11/16 17:52 Aerobic Blood Culture - Preliminary Resulted Blood Line NO GROWTH IN 3 DAYS 05/11/16 17:52 Anaerobic Blood Culture - Preliminary Resulted Blood Line NO GROWTH IN 3 DAYS Imaging Last Impressions Chest X-Ray 05/14/16 0600 Signed Impressions: Service Date/Time: Saturday, May 14, 2016 04:36 - CONCLUSION: Stable chest x-ray with small left pleural effusion with associated volume loss and/or consolidation. There is also stable patchy airspace opacity in the right mid to lower lung zone. Mason Ceja MD Gastrostomy Tube Placement 05/11/16 0000 Signed Impressions: Service Date/Time: Wednesday, May 11, 2016 13:49 - CONCLUSION: Uncomplicated gastrojejunostomy tube placement as above. El Santiago MD Chest CT 05/11/16 0000 Signed Impressions: Service Date/Time: May 14:52 - CONCLUSION: 1. Bilateral pulmonary opacity with left lower lobe atelectasis versus consolidation and patchy bilateral mid to upper lung atelectasis versus mild consolidation. 2. Small left pleural effusion. 3. Evidence of old granulomatous disease. Kyle Ludwig MD Abdomen/Pelvis CT 05/11/16 0000 Signed Impressions: Service Date/Time: May 14:52 - CONCLUSION: 1. Severe peripancreatic inflammatory changes again seen. No organized rounded fluid collections identified. 2. Left lower lobe atelectasis/consolidation and small pleural effusion unchanged. Kyle Ludwig MD Abdomen X-Ray 05/09/16 0900 Signed Impressions: Service Date/Time: Monday, May 09, 2016 09:02 - CONCLUSION: 2 tubes in the stomach one nasogastric one Dobbhoff both terminate in the distal body or antrum of the stomach Braden Larson MD Tube Placement X-Ray 05/05/16 0000 Signed Impressions: Service Date/Time: April 16:20 - CONCLUSION: Fluoroscopically guided nasogastric tube repositioning as above. Attempts were discontinued after multiple attempts with the tubing seen coiling within the patient's mouth region and proximal esophagus. Tessa Nichole MD Renal Ultrasound 04/25/16 0000 Signed Impressions: Service Date/Time: Monday, April 25, 2016 15:01 - CONCLUSION: No evidence of hydronephrosis. Tom Seals MD Physical Exam HEENT: Normocephalic; atraumatic; no jaundice. CHEST: Rhonchi. Tracheostomy to vent CARDIAC: RRR ABDOMEN: Semifirm- but improved, distended, no tenderness, bowel sounds are hypoactive. G/J tube EXTREMITIES: Generalized edema. 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 (Kodi Montgomery) Assessment and Plan Plan ASSESSMENT: - Severe pancreatitis (acute on chronic), with heavy alcohol intake about [address] Abdomen and pelvis (04/24/16)---> Inflammatory stranding in and around the pancreas suggestive of pancreatitis without any focal areas of necrosis or pseudocyst formation. Mildly fatty liver. Rpt. CT Scan abdomen and pelvis Without IV contrast (05/02/16)-----> exam demonstrates extensive inflammatory change around the pancreas with fluid extending down into the paracolic gutters consistent with severe pancreatitis. This has significantly worsened when compared to the previous stated 04/24/16. No organized pseudocyst is present. Pt with persistent leukocytosis WBC 24.9 and fevers. LFT stable. S /P G/J tube (05/11). Repeat CT Abdomen and pelvis without IV contrast (05/12/16)--> Severe peripancreatic inflammatory changes again seen. No organized rounded fluid collections identified. Left lower lobe atelectasis/ consolidation and small pleural effusion. Persistent leukocytosis with a WBC of 23.0, low-grade fevers. TPN. Post pyloric feeding started yesterday and so far he is tolerating this at 40 cc an hour. Will increase to goal rate and DC TPN (42cc/hr, being cut down now) once tolerating that. Clinically, he looks better. - Ileus/vs obstruction. IMPROVED. - Persistent Fever/Leukocytosis. Micagungin, Meropenum - Anemia. 8.05/03.7. - ARF. Off HD - Hep-c (+)- not sure if he had tx or not, he is not a candidate due to drinking behavior - Acute respiratory failure - per [facility] - DM, COPD per [facility] 05/14/16- Patient is doing good today, tolerating TF to goal rate, moving his bowels CT on (05/11/16)----> Severe peripancreatic inflammatory changes again seen. No organized rounded fluid collections identified. 2. Left lower lobe atelectasis/consolidation and small pleural effusion unchanged. lipase has normalized, WBC improving Plan: - Jevity 1.5 at 50cc/hr - Abx per ID - Monitor labs - [facility] following - [facility] following - Supportive care - Further recommendations to follow based on results of above - PT seen and examined by Dr. Vogt and myself and this note is written on his behalf (Kodi Montgomery) Physician Comments Patient seen and examined Agree with above Continue with current supportive care Monitor labs Not much to add from a GI standpoint we will sign off (Joaquín Vogt MD ) Kodi Montgomery May 14, 2016 13:25 Joaquín Vogt MD May 14, 2016 16:57
[2016-05-14] MEDS: MAGNESIUM SULFAT 1 GM PREMIX 100 ML x2 bags IV SCH ×2 (13:40→14:55)
[2016-05-14] MEDS: MICAFUNGIN INJ 150 MG in SODIUM CHLORIDE 0.9% INJ 100 ML IV SCH (17:57)
[2016-05-15] VITALS (18 sets, daily range): BP systolic 138–219; BP diastolic 68–115; PULSE 75–114; RESP 21–40; TEMP 99–99.7; O2SAT 96–100
[2016-05-15] MEDS: MEROPENEM INJ 500 MG in SODIUM CHLORIDE 0.9% INJ 100 ML IV SCH ×3 (00:22→17:52)
[2016-05-15] MEDS: CHLORHEXIDINE GLUCONATE 2 % 1 PACK (2 CLOTHS) TOP SCH (04:00)
[2016-05-15] MEDS: oxyCODONE HCL ORAL CONC 20 MG/ML SYRINGE NG SCH ×5 (05:21→20:46)
[2016-05-15] MEDS: METOCLOPRAMIDE HCL SYRUP 10 MG/10 ML UDC NG SCH ×3 (05:22→22:00)
[2016-05-15 06:11] LABS: HEMATOCRIT 22.5 % (39.0-51.0); MEAN CELL VOLUME 78.7 FL (80.0-100.0); MEAN CORPUSCULAR HEMOGLOBIN 25.9 PG (27.0-34.0); MEAN CORPUSCULAR HGB CONC 32.9 % (32.0-36.0); PLATELET COUNT 497 TH/MM3 (150-450); RED BLOOD COUNT 2.86 MIL/MM3 (4.50-5.90); RED CELL DISTRIBUTION WIDTH 16.7 % (11.6-17.2); REVIEW FLAG FINAL; WHITE BLOOD COUNT 16.9 TH/MM3 (4.0-11.0)
[2016-05-15 06:24] LABS: POTASSIUM 3.6 MEQ/L (3.5-5.1)
[2016-05-15] MEDS: FAMOTIDINE 20 MG TAB NG SCH ×2 (08:30→20:46)
[2016-05-15] MEDS: HEPARIN SODIUM - SQ 10,000 UNITS/ML VIAL SQ SCH ×3 (08:31→23:06)
[2016-05-15] MEDS: CHLORHEXIDINE 0.12% (ORAL KIT) 15 ML CUP MT SCH ×2 (08:32→20:46)
[2016-05-15] MEDS: SODIUM CHLORIDE 0.9% FLUSH 5 ML FLUSH IV FLUSH SCH ×2 (08:33→20:46)
[2016-05-15] MEDS: HYDROmorphone HCL PF 1 MG/ML VIAL IV PUSH PRN ×2 (09:28→23:07)
--- NOTE | 2016-05-15 14:56 | HHI.CCPN ---
Subjective Remarks/Hospital Course This is a 65-year-old male with history of COPD, strong alcohol abuse history, diabetes, questionable history of heart failure, coronary artery disease who initially presented to the emergency department 04/25 with abdominal pain and was found to have acute pancreatitis. He was noted to the hospital at that time. Over the subsequent 48 hours, he developed worsening hypoxia as well as an acute kidney injury. This was initially thought to be CHF exacerbation and volume overload. He was given diuretics without a good response. His creatinine has trended up to 6. Nephrology was consulted and are considering renal replacement therapy. Tonight throughout the night, the patient became more hypoxic and dyspneic with increasing oxygen requirement. He is transferred to the ICU for his acute hypoxic respiratory failure. The patient is nauseated and has vomited a few times. 04/28: Intubated for respiratory distress with hypoxemia, now with acceptable gas exchange. Tolerating dialysis, try to extubate shortly. 04/29: Abdomen much too distended for extubation. NG tube placed with Roman forceps. 04/30: Abdomen remains tensely distended. No peritoneal irritation. BS few. 05/01: Abdomen remains tensely distended. No peritoneal irritation. 05/02: Abdominal distention worse. Pain worse. Will get CT to look for perforation. 05/03: CT abdomen with rip-roaring inflammatory process involving the pancreas; much worse. Sputum with multiple organisms. Patient clinically more critically ill. 05/04: Will start TFs if OK with GI service. 05/05: Dobbhoff tube in stomach. Will try to advance to duodenum and avoid TPN if at all possible. 05/06: DHT not post-pyloric, will advance and get KUB in a.m. 05/07: Persistent low grade fever and leukocytosis. Ileus persists. Goal is to get intestinal motility restored, decompress abdomen, extubate, and transfer to son's area in [place] for long-term care. 05/08: Remains sedated, arousable, orally intubated on mechanical ventilation. 05/09: Sedated, arousable, orally intubated on mechanical ventilation. On TPN 05/10: Sedated, arousable, orally intubated on mechanical ventilation. Remains on TPN as Dobbhoff remains in stomach. Scheduled for percutaneous tracheostomy today. Awaiting G/J tube placement by GI. 05/11: plan for g/j today. getting 2 units prbc for hgb 6.9. s/p trach yesterday. 05/12: g/j yesterday. persistently febrile yesterday. wbc still elevated. Lipase 130. awaiting repeat CT abd/pelvis results. new line placed yesterday and old line discontinued. cultures pending. 05/13: Patient tolerating C Pap 10 over 5. Waking up easily, follows commands on upper and lower extremities. WBC count stable at 23, ID is following. CT abdomen pelvis yesterday shows severe peripancreatic inflammatory changes 05/14: Did not tolerate TP yesterday, developed nonsustained V. tach. Wakes up easily follows commands. WBC trending down, tolerating tube feeds. Off TPN. Magnesium 1.4 getting replaced 05/15: No acute events reported overnight, communicating, cooperative with physical therapy. Tolerated T piece several hours yesterday Objective Vital Signs Date Time Temp Pulse Resp B/P Pulse Ox O2 Delivery O2 Flow Rate FiO2 05/15/16 13:45 99 T-piece 6.00 40 05/15/16 12:00 79 05/15/16 12:00 99.4 25 140/74 Intake and Output 05/14/16 05/14/16 05/15/16 08:00 16:00 00:00 Intake Total 706 ml 698 ml 906 ml Output Total 725 ml 550 ml 675 ml Balance -19 ml 148 ml 231 ml Result Diagram: 05/15/16 0535 05/15/16 0535 Imaging Critical care bedside ultrasound 04/27: Grossly preserved left ventricular function. Normal RV size and function. Small collapsible IVC which very strongly with respirations and is almost completely flat with inspiration. No pericardial effusion. Objective Remarks GENERAL: Middle-aged male, wakes upon stimulation HEENT: Normocephalic. Atraumatic. NECK: Supple, orally intubated. CHEST: On mechanical ventilation, Scattered rhonchi, decreased BS bases. Good ling air movement. Copious secretions persist from trach. CARDIOVASCULAR: normal rate, regular rhythm. No murmurs. No JVD. ABDOMEN: Distended, firm, generally tender to palpation, Occasional BS. MUSCULOSKELETAL: Trace peripheral edema. Warm, well perfused. NEUROLOGICAL: Opens eyes to voice. Tracks with eyes. Follows commands all 4 extremities. A/P Assessment and Plan Plan by systems: Neurologic: Alcohol abuse Metabolic encephalopathy Pain associated with acute pancreatitis - DC fentanyl - Scheduled po oxycodone 10mg for pain - Dilaudid to 1mg iv q4h prn for breakthrough pain - iv tylenol 1gm q8h prn for pain or fever. Respiratory: Acute hypoxic respiratory failure ARDS COPD Vent bundle Head of bed at 30 Wean FiO2 for goal SPO2 greater than 90% Nebs every 6 and every 2 when necessary -- TP daily, tolerated yesterday --OOB to stretcher chair daily. Cardiovascular: Sinus tachycardia SIRS response NSVT 2/ most likely from hypomag Continue telemetry SIRS likely 2/2 acute pancreatitis -- Keep Mag >2, K>4 Renal: Acute kidney injury- improving. Likely has a component of prerenal, but also likely from acute pancreatitis Hardin catheter --Strict I/Os, monitor and replete electro lites, follow BUN/creatinine - nephrology following. vas cath removed 05/11. FEN/GI: Severe intravascular volume depletion- resolved. Severe acute pancreatitis Severe hypocalcemia Metabolic acidosis Currently tube feed to goal. TPN for nutrition 05/07 - 05/14. GJ tube placed 05/11. Daily CMP, CBC Heme/ID: Leukocytosis Anemia secondary to acute blood loss and critical illness Likely reactive secondary to acute pancreatitis Stool for C. difficile negative (05/08) Urine, sputum, blood cultures. ABX per ID service. Daily CBC --s/p 2 units PRBC 05/11. stable hgb. ID - Leukocytosis with shift. Dr. Hercules ID service advising. Sputum 05/01 - Klebsiella, E. coli, Staph MSSA Endocrine: Diabetes -- SSI, medium scale, every 6 hours Prophylaxis: GI Prophylaxis Protonix 40 mg IV daily 24 hours DVT Prophylaxis -- SCDs Heparin 5000 every 12h Lines: 04/27 left subclavian triple-lumen catheter - discontinued. New central line placed right subclavian 05/07, d/c'd 05/11. left SC TLC placed 05/11. Wilfred Paulson had lengthy discussions with patient's son at bedside about the severity of his illness and poor prognosis. Time spent on critical care excluding procedures 30 minutes Gerson Cuevas MD May 15, 2016 14:56
[2016-05-15] MEDS: MICAFUNGIN INJ 150 MG in SODIUM CHLORIDE 0.9% INJ 100 ML IV SCH (17:52)
[2016-05-15 21:03] LABS: HEMATOCRIT 25.1 % (39.0-51.0); REVIEW FLAG FINAL
[2016-05-15 21:13] LABS: MAGNESIUM 1.5 MG/DL (1.5-2.5); POTASSIUM 3.8 MEQ/L (3.5-5.1)
[2016-05-16] VITALS (18 sets, daily range): BP systolic 139–181; BP diastolic 76–89; PULSE 56–90; RESP 16–29; TEMP 98.8–99.7; O2SAT 100
[2016-05-16] MEDS: oxyCODONE HCL ORAL CONC 20 MG/ML SYRINGE NG SCH ×7 (00:21→23:11)
[2016-05-16] MEDS: MEROPENEM INJ 500 MG in SODIUM CHLORIDE 0.9% INJ 100 ML IV SCH ×4 (00:22→23:11)
[2016-05-16] MEDS: CHLORHEXIDINE GLUCONATE 2 % 1 PACK (2 CLOTHS) TOP SCH (04:00)
[2016-05-16 04:27] LABS: HEMATOCRIT 22.9 % (39.0-51.0); MEAN CELL VOLUME 79.7 FL (80.0-100.0); MEAN CORPUSCULAR HEMOGLOBIN 25.6 PG (27.0-34.0); MEAN CORPUSCULAR HGB CONC 32.1 % (32.0-36.0); PLATELET COUNT 487 TH/MM3 (150-450); RED BLOOD COUNT 2.87 MIL/MM3 (4.50-5.90); RED CELL DISTRIBUTION WIDTH 16.8 % (11.6-17.2); REVIEW FLAG FINAL; WHITE BLOOD COUNT 16.3 TH/MM3 (4.0-11.0)
[2016-05-16 04:55] LABS: POTASSIUM 3.6 MEQ/L (3.5-5.1)
[2016-05-16] MEDS: METOCLOPRAMIDE HCL SYRUP 10 MG/10 ML UDC NG SCH ×3 (06:00→20:14)
[2016-05-16] MEDS: HEPARIN SODIUM - SQ 10,000 UNITS/ML VIAL SQ SCH ×3 (08:10→22:19)
[2016-05-16] MEDS: diphenhydrAMINE HCL 25 MG CAP PO PRN ×2 (08:10→20:14)
[2016-05-16] MEDS: FAMOTIDINE 20 MG TAB NG SCH ×2 (08:10→19:55)
[2016-05-16] MEDS: CHLORHEXIDINE 0.12% (ORAL KIT) 15 ML CUP MT SCH ×2 (08:11→19:57)
[2016-05-16] MEDS: SODIUM CHLORIDE 0.9% FLUSH 5 ML FLUSH IV FLUSH SCH ×2 (08:13→19:56)
[2016-05-16] MEDS ORDERED: MIDAZOLAM HCL 5 MG/ML VIAL (1 ML) ONE (09:11)
[2016-05-16] MEDS: RESP: ALBUTEROL 2.5 MG/IPRATROPIUM 0.5 MG NEB (PRN) INH (09:15)
[2016-05-16] MEDS ORDERED: BUMETANIDE INJ 1 MG/4 ML VIAL IV PUSH ONE (10:00)
--- NOTE | 2016-05-16 10:08 | RADRPT ---
EXAM DATE/TIME: 05/16/2016 09:21 [facility] COMPARISON: CHEST SINGLE AP, May 14, 2016, 4:36. INDICATIONS : Pneumonia. MEDICAL HISTORY : Cerebrovascular disease. Hypertension. cva, diabetes SURGICAL HISTORY : None. ENCOUNTER: Initial ACUITY: 2 weeks PAIN SCORE: Non-responsive. LOCATION: Bilateral chest FINDINGS: A single view of the chest demonstrates persistent left basilar consolidation/effusion. Slight interv al worsening of the right basilar consolidation. Heart size remains borderline prominent. Tracheostom y tube and left subclavian central venous catheter unchanged in position. Scattered birdshot in soft tissues of the neck and left upper extremity. CONCLUSION: Persistent left basilar consolidation/effusion with slight interval worsening of the right conso lidation. Conrad Vallecillo MD on May 16, 2016 at 9:49 Board Certified Radiologist. This report was verified electronically.
[2016-05-16] MEDS ORDERED: methylPREDNISolone SOD SUCC 125 MG/2 ML VIAL IV PUSH ONE (10:15)
--- NOTE | 2016-05-16 10:32 | HHI.CCPN ---
Subjective Remarks/Hospital Course This is a 65-year-old male with history of COPD, strong alcohol abuse history, diabetes, questionable history of heart failure, coronary artery disease who initially presented to the emergency department 04/25 with abdominal pain and was found to have acute pancreatitis. He was noted to the hospital at that time. Over the subsequent 48 hours, he developed worsening hypoxia as well as an acute kidney injury. This was initially thought to be CHF exacerbation and volume overload. He was given diuretics without a good response. His creatinine has trended up to 6. Nephrology was consulted and are considering renal replacement therapy. Tonight throughout the night, the patient became more hypoxic and dyspneic with increasing oxygen requirement. He is transferred to the ICU for his acute hypoxic respiratory failure. The patient is nauseated and has vomited a few times. 04/28: Intubated for respiratory distress with hypoxemia, now with acceptable gas exchange. Tolerating dialysis, try to extubate shortly. 04/29: Abdomen much too distended for extubation. NG tube placed with Roman forceps. 04/30: Abdomen remains tensely distended. No peritoneal irritation. BS few. 05/01: Abdomen remains tensely distended. No peritoneal irritation. 05/02: Abdominal distention worse. Pain worse. Will get CT to look for perforation. 05/03: CT abdomen with rip-roaring inflammatory process involving the pancreas; much worse. Sputum with multiple organisms. Patient clinically more critically ill. 05/04: Will start TFs if OK with GI service. 05/05: Dobbhoff tube in stomach. Will try to advance to duodenum and avoid TPN if at all possible. 05/06: DHT not post-pyloric, will advance and get KUB in a.m. 05/07: Persistent low grade fever and leukocytosis. Ileus persists. Goal is to get intestinal motility restored, decompress abdomen, extubate, and transfer to son's area in [place] for long-term care. 05/08: Remains sedated, arousable, orally intubated on mechanical ventilation. 05/09: Sedated, arousable, orally intubated on mechanical ventilation. On TPN 05/10: Sedated, arousable, orally intubated on mechanical ventilation. Remains on TPN as Dobbhoff remains in stomach. Scheduled for percutaneous tracheostomy today. Awaiting G/J tube placement by GI. 05/11: plan for g/j today. getting 2 units prbc for hgb 6.9. s/p trach yesterday. 05/12: g/j yesterday. persistently febrile yesterday. wbc still elevated. Lipase 130. awaiting repeat CT abd/pelvis results. new line placed yesterday and old line discontinued. cultures pending. 05/13: Patient tolerating C Pap 10 over 5. Waking up easily, follows commands on upper and lower extremities. WBC count stable at 23, ID is following. CT abdomen pelvis yesterday shows severe peripancreatic inflammatory changes 05/14: Did not tolerate TP yesterday, developed nonsustained V. tach. Wakes up easily follows commands. WBC trending down, tolerating tube feeds. Off TPN. Magnesium 1.4 getting replaced 05/15: No acute events reported overnight, communicating, cooperative with physical therapy. Tolerated T piece several hours yesterday 05/16: Developed acute shortness of breath, with bilateral wheezing and crackles. Chest x-ray shows increased pulmonary vascular congestion. Large amount of ET tube secretions. Appears to be more comfortable with PC/AC settings Objective Vital Signs Date Time Temp Pulse Resp B/P Pulse Ox O2 Delivery O2 Flow Rate FiO2 05/16/16 09:11 40 05/16/16 09:09 100 40 05/16/16 08:00 99.1 88 156/80 05/15/16 13:45 T-piece 6.00 Intake and Output 05/15/16 05/15/16 05/16/16 08:00 16:00 00:00 Intake Total 805 ml 760 ml 578 ml Output Total 475 ml 600 ml 750 ml Balance 330 ml 160 ml -172 ml Result Diagram: 05/16/16 0355 05/16/16 0355 Imaging Critical care bedside ultrasound 04/27: Grossly preserved left ventricular function. Normal RV size and function. Small collapsible IVC which very strongly with respirations and is almost completely flat with inspiration. No pericardial effusion. Objective Remarks GENERAL: Middle-aged male, acutely SOB, wheezing HEENT: Normocephalic. Atraumatic. NECK: Supple, orally intubated. CHEST: On mechanical ventilation, bilateral inspiratory and expiratory wheezing. Good ling air movement. Copious secretions persist from trach. CARDIOVASCULAR: normal rate, regular rhythm. No murmurs. No JVD. ABDOMEN: Distended, firm, generally tender to palpation, Occasional BS. MUSCULOSKELETAL: Trace peripheral edema. Warm, well perfused. NEUROLOGICAL: Opens eyes to voice. Tracks with eyes. Follows commands all 4 extremities. A/P Assessment and Plan Plan by systems: Neurologic: Alcohol abuse Metabolic encephalopathy Pain associated with acute pancreatitis - Versed and fentanyl pushed 1 now for ventilator synchrony, otherwise no continuous sedation - Scheduled po oxycodone 10mg for pain - Dilaudid to 1mg iv q4h prn for breakthrough pain - iv tylenol 1gm q8h prn for pain or fever. Respiratory: Acute hypoxic respiratory failure ARDS COPD Placed back on PCV due to acute respiratory distress bilateral wheezing --Chest x-ray shows increased pulmonary vascular congestion --Vent bundle, Head of bed at 30 Wean FiO2 for goal SPO2 greater than 90% Nebs every 4 and every 2 when necessary --No TP or out of bed today due to acute distress on full vent support Cardiovascular: Sinus tachycardia SIRS response NSVT 2/3 most likely from hypomagnesemia Continue telemetry SIRS likely 2/2 acute pancreatitis --Keep Mag >2, K>4 Renal: Acute kidney injury- improving. Likely has a component of prerenal, but also likely from acute pancreatitis Hardin catheter --Strict I/Os, monitor and replete electro lites, follow BUN/creatinine --Nephrology following. vas cath removed 05/11. -- Start Bumex 1 mg IV q12, free water replacement with D5W at 100 mL per hour FEN/GI: Severe intravascular volume depletion- resolved. Severe acute pancreatitis Severe hypocalcemia Metabolic acidosis Currently tube feed to goal. TPN for nutrition 05/07 - 05/14. GJ tube placed 05/11. Daily CMP, CBC --Start Bumex 1 mg IV q12, free water replacement with D5W at 100 mL per hour Heme/ID: Leukocytosis Anemia secondary to acute blood loss and critical illness Likely reactive secondary to acute pancreatitis Stool for C. difficile negative (05/08) Urine, sputum, blood cultures. ABX per ID service. Daily CBC --s/p 2 units PRBC 05/11. stable hgb. ID - Leukocytosis with shift. Dr. Hercules ID following Sputum 05/01 - Klebsiella, E. coli, Staph MSSA Endocrine: Diabetes -- SSI, medium scale, every 6 hours Prophylaxis: GI Prophylaxis Protonix 40 mg IV daily 24 hours DVT Prophylaxis -- SCDs Heparin 5000 every 12h Lines: 04/27 left subclavian triple-lumen catheter - discontinued. New central line placed right subclavian 05/07, d/c'd 05/11. left SC TLC placed 05/11. Wilfred Paulson had lengthy discussions with patient's son at bedside about the severity of his illness and poor prognosis. Time spent on critical care excluding procedures 35 minutes Gerson Cuevas MD May 16, 2016 09:56
--- NOTE | 2016-05-16 10:36 | HHI.IDPN ---
Subjective Subjective Remarks is a 65 y/o AAM with PMHx of COPD, CAD/CHF, DM, heavy alcohol abuse , Hepatitis C, pancreatitis in past. ID following for possible sepsis, acute pancreatitis and pneumonia. Overnight events reviewed with RN. On the vent. Trach and GJ tube in place. Secretions yellow, thick per RT. Appears short of breath today. Opens eyes spontaneously, follows commands and responds by nodding. UO good. Antibiotics Meropenem IV Micafungin IV Lines Line sites with no e/o infection Past Medical History reviewed Allergies: Coded Allergies: Penicillin (Verified Allergy, Severe, HIVES, 04/24/16) Objective . Vital Signs Date Time Temp Pulse Resp B/P Pulse Ox O2 Delivery O2 Flow Rate FiO2 05/16/16 09:11 40 05/16/16 09:09 100 40 05/16/16 08:00 99.1 88 29 156/80 100 05/16/16 08:00 40 05/16/16 08:00 88 05/16/16 07:58 40 05/16/16 07:57 100 40 05/16/16 06:00 79 05/16/16 04:10 100 40 05/16/16 04:00 80 05/16/16 04:00 99.5 80 22 151/86 100 05/16/16 04:00 40 05/16/16 02:00 79 05/16/16 01:05 100 40 05/16/16 00:00 40 05/16/16 00:00 80 05/16/16 00:00 99.7 80 24 139/76 100 05/15/16 22:00 80 05/15/16 20:45 100 40 05/15/16 20:00 40 05/15/16 20:00 108 05/15/16 20:00 99.6 114 40 219/115 96 05/15/16 18:00 96 05/15/16 16:00 40 05/15/16 16:00 88 05/15/16 16:00 99.2 84 30 176/87 100 05/15/16 14:00 87 05/15/16 13:45 99 T-piece 6.00 40 05/15/16 12:02 100 40 05/15/16 12:00 79 05/15/16 12:00 40 05/15/16 12:00 99.4 81 25 140/74 100 05/15/16 05/15/16 05/16/16 15:00 23:00 07:00 Intake Total 760 ml 578 ml 722 ml Output Total 600 ml 750 ml 525 ml Balance 160 ml -172 ml 197 ml Intake Oral 0 ml IV Total 255 ml 253 ml 290 ml Tube Feeding 485 ml 325 ml 432 ml Tube Irrigant 20 ml Output Urine Total 600 ml 600 ml 450 ml Gastric Drainage Total 150 ml 75 ml Bladder Scan Volume Amount 7 ml # Bowel Movements 1 2 1 . Laboratory Tests Test 05/15/16 05/15/16 05/16/16 05:35 20:30 03:55 White Blood Count 16.9 TH/MM3 16.3 TH/MM3 Red Blood Count 2.86 MIL/MM3 2.87 MIL/MM3 Hemoglobin 7.4 GM/DL 8.2 GM/DL 7.4 GM/DL Hematocrit 22.5 % 25.1 % 22.9 % Mean Corpuscular Volume 78.7 FL 79.7 FL Mean Corpuscular Hemoglobin 25.9 PG 25.6 PG Mean Corpuscular Hemoglobin 32.9 % 32.1 % Concent Red Cell Distribution Width 16.7 % 16.8 % Platelet Count 497 TH/MM3 487 TH/MM3 Mean Platelet Volume 9.5 FL 9.5 FL Laboratory Tests Test 05/14/16 05/15/16 05/15/16 05/16/16 21:15 05:35 20:30 03:55 Phosphorus Level 2.2 MG/DL 3.6 MG/DL 3.5 MG/DL Sodium Level 155 MEQ/L 154 MEQ/L 156 MEQ/L Potassium Level 3.6 MEQ/L 3.8 MEQ/L 3.6 MEQ/L Chloride Level 119 MEQ/L 117 MEQ/L 119 MEQ/L Carbon Dioxide Level 29.0 MEQ/L 31.0 MEQ/L 30.0 MEQ/L Anion Gap 7 MEQ/L 6 MEQ/L 7 MEQ/L Blood Urea Nitrogen 21 MG/DL 19 MG/DL 20 MG/DL Creatinine 0.65 MG/DL 0.67 MG/DL 0.64 MG/DL Estimat Glomerular Filtration 149 ML/MIN 144 ML/MIN 152 ML/MIN Rate Random Glucose 113 MG/DL 159 MG/DL 133 MG/DL Calcium Level 8.8 MG/DL 8.9 MG/DL 8.9 MG/DL Magnesium Level 1.5 MG/DL Imaging Abdomen X-Ray 05/07/16 0400 Signed Impressions: Service Date/Time: Saturday, May 07, 2016 05:03 - CONCLUSION: There are 2 tubes within the stomach. Jhonny Green MD Tube Placement X-Ray 05/05/16 0000 Signed Impressions: Service Date/Time: April 16:20 - CONCLUSION: Fluoroscopically guided nasogastric tube repositioning as above. Attempts were discontinued after multiple attempts with the tubing seen coiling within the patient's mouth region and proximal esophagus. Tessa Nichole MD Abdomen X-Ray 05/05/16 0000 Signed Impressions: Service Date/Time: April 13:42 - CONCLUSION: No evidence of obstruction. Stable placement of Dobbhoff tube and nasogastric tube. Tessa Nichole MD Abdomen/Pelvis CT 05/02/16 0000 Signed Impressions: Service Date/Time: Monday, May 02, 2016 15:43 - CONCLUSION: 1. The exam demonstrates extensive inflammatory change around the pancreas with fluid extending down into the paracolic gutters consistent with severe pancreatitis. This has significantly worsened when compared to previous dated 04/24/16. No organized pseudocyst is present. 2. NG tube and Hardin in good position. Seng Rollins MD Abdomen X-Ray 04/30/16 0000 Signed Impressions: Service Date/Time: Saturday, April 30, 2016 05:12 - CONCLUSION: No dilated loops of small bowel. Stable dilated transverse colon. Hubert Garcia MD Chest X-Ray 04/27/16 0000 Signed Impressions: Service Date/Time: Wednesday, April 27, 2016 10:28 - CONCLUSION: 1. Dialysis catheter in good position. 2. Increasing bibasilar parenchymal changes worse on the left. Kermit Rollins MD FACR Renal Ultrasound 04/25/16 0000 Signed Impressions: Service Date/Time: Monday, April 25, 2016 15:01 - CONCLUSION: No evidence of hydronephrosis. Tom Seals MD Physical Exam GENERAL: Opens eyes, on the vent, NAD SKIN: No rashes. Warm, improving edema HEAD: Atraumatic. Normocephalic. No temporal or scalp tenderness. EYES: Pupils equal round and reactive. No injection or drainage. ENT: trach site ok. NECK: Trachea midline. Supple, nontender, no meningeal signs. CARDIOVASCULAR: Heart sounds audible. RESPIRATORY: Clear to auscultation. Breath sounds equal bilaterally with decrease in the bases. GASTROINTESTINAL: Abdomen distended, tenderness diffusely, hypoactive bowel sounds. GJ tube site ok. MUSCULOSKELETAL: Extremities without clubbing, cyanosis. Pedal edema noted, improving. NEUROLOGICAL: Sedated. Opens eyes Psych could not be assessed IV line sites with no evidence of infection. Assessment & Plan Remarks Sepsis (source: likely intra abdominal and aspiration/Health care associated pneumonia. Reviewed other sources: CL and HD cath, Cath associated UTI. Severe acute pancreatitis as most likely cause of new SIRS. No pseudocyst no evidence of any abscess. - last CT worse clinically improved with Meropenem and Micafungin IV so / pancreatitis related peritonitis. MSSA and Kleb pneumo pneumonia. New high fevers : ? new infection vs worsening or necrotizing pancreatitis. Acute resp failure on vent. Acute renal failure was on HD till 05/10/16. Alcoholism Recs: Continue Meropenem IV (ASP: possible necrotizing fascitis, persistent fevers on broad spectrum antibiotics, PCN allergy) Continue Micafungin IV (ASP: fevers despite Diflucan, on BSA abdominal source as well as possible line infection ? fungemia) D/w and RN: stat CXR. CXR reviewed by me: worsening right consolidation ? component of fluid. Sputum cultures today. Clinically ok at present time. If continues to deteriorate and signs of sepsis consider adding Zyvox IV. Patient recovering from acute renal failure and source would likely pulmonary so Zyvox IV should cover MRSA in lung. Pls call me if any questions or change in condition. Monitor progress Monitor Sienna Mason RN, MD May 16, 2016 10:20
[2016-05-16] MEDS: DEXTROSE 5% IN WATE 1000ML INJ 1,000 ML IV SCH ×2 (10:40→19:57)
[2016-05-16] MEDS: RESP: ALBUTEROL 2.5 MG/IPRATROPIUM 0.5 MG NEB (SCH) NEB ×3 (11:40→20:50)
--- NOTE | 2016-05-16 11:46 | EKG ---
Date Performed: 05/15/2016 Time Performed: 20:14:56 PTAGE: 65 years EKG: Sinus tachycardia with PVC(s). Poor R wave progression - probable normal variant Extensive ST-T changes are nonspecific Abnormal ECG PREVIOUS TRACING : 05/09/2016 11.34 DOCTOR: Matthew Sanchez Interpretating Date/Time 05/16/2016 11:43:33
[2016-05-16] MEDS: BUMETANIDE INJ 1 MG/4 ML VIAL IV PUSH SCH (17:05)
[2016-05-16] MEDS: MICAFUNGIN INJ 150 MG in SODIUM CHLORIDE 0.9% INJ 100 ML IV SCH (17:05)
[2016-05-16] MEDS: HYDROmorphone HCL PF 1 MG/ML VIAL IV PUSH PRN (19:55)
[2016-05-17] VITALS (17 sets, daily range): BP systolic 130–168; BP diastolic 66–88; PULSE 54–88; RESP 18–31; TEMP 98.6–99.8; O2SAT 94–100
[2016-05-17] MEDS: HYDROmorphone HCL PF 1 MG/ML VIAL IV PUSH PRN ×3 (00:08→20:20)
[2016-05-17] MEDS: RESP: ALBUTEROL 2.5 MG/IPRATROPIUM 0.5 MG NEB (SCH) NEB ×6 (01:42→20:09)
[2016-05-17] MEDS ORDERED: NITROGLYCERIN 2% OINT 1 GM PACKET TOPICAL PRN (02:00)
[2016-05-17] MEDS: oxyCODONE HCL ORAL CONC 20 MG/ML SYRINGE NG SCH ×6 (03:15→22:48)
[2016-05-17] MEDS: hydrALAZINE HCL 20 MG/ML VIAL IV PUSH PRN (03:15)
[2016-05-17] MEDS: CHLORHEXIDINE GLUCONATE 2 % 1 PACK (2 CLOTHS) TOP SCH (03:16)
[2016-05-17] MEDS: METOCLOPRAMIDE HCL SYRUP 10 MG/10 ML UDC NG SCH ×3 (04:05→20:20)
[2016-05-17] MEDS: DEXTROSE 5% IN WATE 1000ML INJ 1,000 ML IV SCH ×2 (05:33→15:08)
[2016-05-17 06:00] LABS: MEAN CELL VOLUME 78.6 FL (80.0-100.0); MEAN CORPUSCULAR HEMOGLOBIN 25.2 PG (27.0-34.0); MEAN CORPUSCULAR HGB CONC 32.1 % (32.0-36.0); PLATELET COUNT 528 TH/MM3 (150-450); RED BLOOD COUNT 3.05 MIL/MM3 (4.50-5.90); RED CELL DISTRIBUTION WIDTH 16.7 % (11.6-17.2); REVIEW FLAG FINAL; WHITE BLOOD COUNT 14.3 TH/MM3 (4.0-11.0)
[2016-05-17 06:22] LABS: BICARBONATE 30.5 MEQ/L (21.0-32.0); POTASSIUM 3.4 MEQ/L (3.5-5.1)
[2016-05-17] MEDS: CHLORHEXIDINE 0.12% (ORAL KIT) 15 ML CUP MT SCH ×2 (08:00→20:21)
[2016-05-17] MEDS: SODIUM CHLORIDE 0.9% FLUSH 5 ML FLUSH IV FLUSH SCH ×2 (09:00→20:20)
[2016-05-17] MEDS: MEROPENEM INJ 500 MG in SODIUM CHLORIDE 0.9% INJ 100 ML IV SCH ×3 (09:03→23:16)
[2016-05-17] MEDS: HEPARIN SODIUM - SQ 10,000 UNITS/ML VIAL SQ SCH ×3 (09:03→22:47)
[2016-05-17] MEDS: FAMOTIDINE 20 MG TAB NG SCH ×2 (09:03→20:20)
[2016-05-17] MEDS: BUMETANIDE INJ 1 MG/4 ML VIAL IV PUSH SCH ×2 (09:04→16:57)
--- NOTE | 2016-05-17 10:30 | HHI.CCPN ---
Subjective Remarks/Hospital Course This is a 65-year-old male with history of COPD, strong alcohol abuse history, diabetes, questionable history of heart failure, coronary artery disease who initially presented to the emergency department 04/25 with abdominal pain and was found to have acute pancreatitis. He was noted to the hospital at that time. Over the subsequent 48 hours, he developed worsening hypoxia as well as an acute kidney injury. This was initially thought to be CHF exacerbation and volume overload. He was given diuretics without a good response. His creatinine has trended up to 6. Nephrology was consulted and are considering renal replacement therapy. Tonight throughout the night, the patient became more hypoxic and dyspneic with increasing oxygen requirement. He is transferred to the ICU for his acute hypoxic respiratory failure. The patient is nauseated and has vomited a few times. 04/28: Intubated for respiratory distress with hypoxemia, now with acceptable gas exchange. Tolerating dialysis, try to extubate shortly. 04/29: Abdomen much too distended for extubation. NG tube placed with Roman forceps. 04/30: Abdomen remains tensely distended. No peritoneal irritation. BS few. 05/01: Abdomen remains tensely distended. No peritoneal irritation. 05/02: Abdominal distention worse. Pain worse. Will get CT to look for perforation. 05/03: CT abdomen with rip-roaring inflammatory process involving the pancreas; much worse. Sputum with multiple organisms. Patient clinically more critically ill. 05/04: Will start TFs if OK with GI service. 05/05: Dobbhoff tube in stomach. Will try to advance to duodenum and avoid TPN if at all possible. 05/06: DHT not post-pyloric, will advance and get KUB in a.m. 05/07: Persistent low grade fever and leukocytosis. Ileus persists. Goal is to get intestinal motility restored, decompress abdomen, extubate, and transfer to son's area in [place] for long-term care. 05/08: Remains sedated, arousable, orally intubated on mechanical ventilation. 05/09: Sedated, arousable, orally intubated on mechanical ventilation. On TPN 05/10: Sedated, arousable, orally intubated on mechanical ventilation. Remains on TPN as Dobbhoff remains in stomach. Scheduled for percutaneous tracheostomy today. Awaiting G/J tube placement by GI. 05/11: plan for g/j today. getting 2 units prbc for hgb 6.9. s/p trach yesterday. 05/12: g/j yesterday. persistently febrile yesterday. wbc still elevated. Lipase 130. awaiting repeat CT abd/pelvis results. new line placed yesterday and old line discontinued. cultures pending. 05/13: Patient tolerating C Pap 10 over 5. Waking up easily, follows commands on upper and lower extremities. WBC count stable at 23, ID is following. CT abdomen pelvis yesterday shows severe peripancreatic inflammatory changes 05/14: Did not tolerate TP yesterday, developed nonsustained V. tach. Wakes up easily follows commands. WBC trending down, tolerating tube feeds. Off TPN. Magnesium 1.4 getting replaced 05/15: No acute events reported overnight, communicating, cooperative with physical therapy. Tolerated T piece several hours yesterday 05/16: Developed acute shortness of breath, with bilateral wheezing and crackles. Chest x-ray shows increased pulmonary vascular congestion. Large amount of ET tube secretions. Appears to be more comfortable with PC/AC settings 05/17: Breathing more comfortable today, on PCV. Still has trach secretions. Resume CPAP/TP today. Sputum culture ordered Objective Vital Signs Date Time Temp Pulse Resp B/P Pulse Ox O2 Delivery O2 Flow Rate FiO2 05/17/16 10:00 79 05/17/16 09:05 99 35 05/17/16 08:00 99.5 26 130/71 05/15/16 13:45 T-piece 6.00 Intake and Output 05/16/16 05/16/16 05/17/16 08:00 16:00 00:00 Intake Total 722 ml 980 ml 1000 ml Output Total 525 ml 1750 ml 1150 ml Balance 197 ml -770 ml -150 ml Result Diagram: 05/17/16 0550 05/17/16 0550 Imaging Critical care bedside ultrasound 04/27: Grossly preserved left ventricular function. Normal RV size and function. Small collapsible IVC which very strongly with respirations and is almost completely flat with inspiration. No pericardial effusion. Objective Remarks GENERAL: Middle-aged male, breathing more comfortably on PCV HEENT: Normocephalic. Atraumatic. NECK: Supple, orally intubated. CHEST: On mechanical ventilation, bilateral mild expiratory wheezing. Copious secretions persist from trach. CARDIOVASCULAR: normal rate, regular rhythm. No murmurs. No JVD. ABDOMEN: Distended, firm, generally tender to palpation, Occasional BS. MUSCULOSKELETAL: Trace peripheral edema. Warm, well perfused. NEUROLOGICAL: Opens eyes to voice. Tracks with eyes. Follows commands all 4 extremities. A/P Assessment and Plan Plan by systems: Neurologic: Alcohol abuse Metabolic encephalopathy Pain associated with acute pancreatitis - Versed and fentanyl pushed 1 now for ventilator synchrony, otherwise no continuous sedation - Scheduled po oxycodone 10mg for pain - Dilaudid to 1mg iv q4h prn for breakthrough pain - iv Tylenol 1gm q8h prn for pain or fever. Respiratory: Acute hypoxic respiratory failure ARDS COPD Placed back on PCV 2/ due to acute respiratory distress bilateral wheezing. Resume CPAP, TP today --Chest x-ray shows increased pulmonary vascular congestion --Vent bundle, Head of bed at 30 Wean FiO2 for goal SPO2 greater than 90% Nebs every 4 and every 2 when necessary Cardiovascular: Sinus tachycardia SIRS response NSVT 2/3 most likely from hypomagnesemia SIRS likely 2/2 acute pancreatitis --Keep Mag >2, K>4 Renal: Acute kidney injury- improving. Likely has a component of prerenal, but also likely from acute pancreatitis Hardin catheter --Strict I/Os, monitor and replete electro lites, follow BUN/creatinine --Nephrology following. vas cath removed 05/11. --Bumex 1 mg IV q12, free water replacement with D5W at 100 mL per hour FEN/GI: Severe intravascular volume depletion- resolved. Severe acute pancreatitis Severe hypocalcemia Metabolic acidosis Currently tube feed to goal. Off TPN for nutrition 05/07 - 05/14. GJ tube placed 05/11. Daily CMP, CBC --Bumex 1 mg IV q12, free water replacement with D5W at 100 mL per hour Heme/ID: Leukocytosis Anemia secondary to acute blood loss and critical illness Likely reactive secondary to acute pancreatitis Stool for C. difficile negative (05/08) Urine, sputum, blood cultures. ABX per ID service. Daily CBC --s/p 2 units PRBC 05/11. stable hgb. ID - Leukocytosis with shift. Dr. Hercules ID following Sputum 05/01 - Klebsiella, E. coli, Staph MSSA Repeat sputum today Endocrine: Diabetes -- SSI, medium scale, every 6 hours Prophylaxis: GI Prophylaxis Protonix 40 mg IV daily 24 hours DVT Prophylaxis --SCDs Heparin 5000 every 12h Lines: 04/27 left subclavian triple-lumen catheter - discontinued. New central line placed right subclavian 05/07, d/c'd 05/11. left SC TLC placed 05/11. Wilfred Paulson had lengthy discussions with patient's son at bedside about the severity of his illness and poor prognosis. Time spent on critical care excluding procedures 35 minutes Gerson Cuevas MD May 17, 2016 10:30 Gerson Cuevas MD May 17, 2016 10:30
--- NOTE | 2016-05-17 11:13 | HHI.IDPN ---
Subjective Subjective Remarks is a 65 y/o AAM with PMHx of COPD, CAD/CHF, DM, heavy alcohol abuse , Hepatitis C, pancreatitis in past. ID following for possible sepsis, acute pancreatitis and pneumonia. Overnight events reviewed with RN. On the vent. Trach and GJ tube in place. Opens eyes spontaneously, follows commands and responds by nodding. UO good. Denies abdominal pain. Antibiotics Meropenem IV Micafungin IV Lines Line sites with no e/o infection Past Medical History reviewed Allergies: Coded Allergies: Penicillin (Verified Allergy, Severe, HIVES, 04/24/16) Objective . Vital Signs Date Time Temp Pulse Resp B/P Pulse Ox O2 Delivery O2 Flow Rate FiO2 05/17/16 10:55 97 T-piece 35 05/17/16 10:00 79 05/17/16 09:05 99 35 05/17/16 08:00 69 05/17/16 08:00 40 05/17/16 08:00 99.5 88 26 130/71 97 05/17/16 06:00 73 05/17/16 05:20 100 40 05/17/16 04:00 40 05/17/16 04:00 99.8 68 22 151/66 99 05/17/16 04:00 68 05/17/16 02:00 81 05/17/16 01:44 100 35 05/17/16 00:00 98.6 54 18 168/80 100 05/17/16 00:00 54 05/17/16 00:00 40 05/16/16 22:00 56 05/16/16 20:00 40 05/16/16 20:00 64 05/16/16 20:00 100 40 05/16/16 20:00 99.5 64 24 181/89 100 05/16/16 18:00 72 05/16/16 16:30 100 40 05/16/16 16:00 40 05/16/16 16:00 88 05/16/16 16:00 98.8 75 26 164/87 100 05/16/16 14:00 90 05/16/16 12:00 98.8 66 16 154/78 100 05/16/16 12:00 40 05/16/16 12:00 60 05/16/16 11:42 100 40 05/16/16 05/16/16 05/17/16 15:00 23:00 07:00 Intake Total 980 ml 1000 ml 1397 ml Output Total 1750 ml 1150 ml 475 ml Balance -770 ml -150 ml 922 ml Intake Oral 0 ml 0 ml 0 ml IV Total 552 ml 649 ml 862 ml Tube Feeding 403 ml 291 ml 475 ml Tube Irrigant 25 ml 60 ml 60 ml Output Urine Total 1750 ml 1100 ml 375 ml Gastric Drainage Total 50 ml 100 ml Bladder Scan Volume Amount 7 ml 7 ml 7 ml # Bowel Movements 2 1 0 . Laboratory Tests Test 05/15/16 05/16/16 05/17/16 20:30 03:55 05:50 Hemoglobin 8.2 GM/DL 7.4 GM/DL 7.7 GM/DL Hematocrit 25.1 % 22.9 % 24.0 % White Blood Count 16.3 TH/MM3 14.3 TH/MM3 Red Blood Count 2.87 MIL/MM3 3.05 MIL/MM3 Mean Corpuscular Volume 79.7 FL 78.6 FL Mean Corpuscular Hemoglobin 25.6 PG 25.2 PG Mean Corpuscular Hemoglobin 32.1 % 32.1 % Concent Red Cell Distribution Width 16.8 % 16.7 % Platelet Count 487 TH/MM3 528 TH/MM3 Mean Platelet Volume 9.5 FL 9.9 FL Laboratory Tests Test 05/15/16 05/16/16 05/17/16 20:30 03:55 05:50 Sodium Level 154 MEQ/L 156 MEQ/L 150 MEQ/L Potassium Level 3.8 MEQ/L 3.6 MEQ/L 3.4 MEQ/L Chloride Level 117 MEQ/L 119 MEQ/L 112 MEQ/L Carbon Dioxide Level 31.0 MEQ/L 30.0 MEQ/L 30.5 MEQ/L Anion Gap 6 MEQ/L 7 MEQ/L 8 MEQ/L Blood Urea Nitrogen 19 MG/DL 20 MG/DL 25 MG/DL Creatinine 0.67 MG/DL 0.64 MG/DL 0.80 MG/DL Estimat Glomerular Filtration 144 ML/MIN 152 ML/MIN 118 ML/MIN Rate Random Glucose 159 MG/DL 133 MG/DL 158 MG/DL Calcium Level 8.9 MG/DL 8.9 MG/DL 8.4 MG/DL Phosphorus Level 3.5 MG/DL Magnesium Level 1.5 MG/DL Imaging Abdomen X-Ray 05/07/16 0400 Signed Impressions: Service Date/Time: Saturday, May 07, 2016 05:03 - CONCLUSION: There are 2 tubes within the stomach. Jhonny Green MD Tube Placement X-Ray 05/05/16 0000 Signed Impressions: Service Date/Time: April 16:20 - CONCLUSION: Fluoroscopically guided nasogastric tube repositioning as above. Attempts were discontinued after multiple attempts with the tubing seen coiling within the patient's mouth region and proximal esophagus. Tessa Nichole MD Abdomen X-Ray 05/05/16 0000 Signed Impressions: Service Date/Time: April 13:42 - CONCLUSION: No evidence of obstruction. Stable placement of Dobbhoff tube and nasogastric tube. Tessa Nichole MD Abdomen/Pelvis CT 05/02/16 0000 Signed Impressions: Service Date/Time: Monday, May 02, 2016 15:43 - CONCLUSION: 1. The exam demonstrates extensive inflammatory change around the pancreas with fluid extending down into the paracolic gutters consistent with severe pancreatitis. This has significantly worsened when compared to previous dated 04/24/16. No organized pseudocyst is present. 2. NG tube and Hardin in good position. Seng Rollins MD Abdomen X-Ray 04/30/16 0000 Signed Impressions: Service Date/Time: Saturday, April 30, 2016 05:12 - CONCLUSION: No dilated loops of small bowel. Stable dilated transverse colon. Hubert Garcia MD Chest X-Ray 04/27/16 0000 Signed Impressions: Service Date/Time: Wednesday, April 27, 2016 10:28 - CONCLUSION: 1. Dialysis catheter in good position. 2. Increasing bibasilar parenchymal changes worse on the left. Kermit Rollins MD FACR Renal Ultrasound 04/25/16 0000 Signed Impressions: Service Date/Time: Monday, April 25, 2016 15:01 - CONCLUSION: No evidence of hydronephrosis. Tom Seals MD Physical Exam GENERAL: Opens eyes, on the vent, NAD SKIN: No rashes. Warm, improving edema HEAD: Atraumatic. Normocephalic. No temporal or scalp tenderness. EYES: Pupils equal round and reactive. No injection or drainage. ENT: trach site ok. NECK: Trachea midline. Supple, nontender, no meningeal signs. CARDIOVASCULAR: Heart sounds audible. RESPIRATORY: Clear to auscultation. Breath sounds equal bilaterally with decrease in the bases. GASTROINTESTINAL: Abdomen distended, tenderness diffusely, hypoactive bowel sounds. GJ tube site ok. MUSCULOSKELETAL: Extremities without clubbing, cyanosis. Pedal edema noted, improving. NEUROLOGICAL: Sedated. Opens eyes Psych could not be assessed IV line sites with no evidence of infection. Assessment & Plan Remarks Sepsis (source: likely intra abdominal and aspiration/Health care associated pneumonia. Reviewed other sources: CL and HD cath, Cath associated UTI. Severe acute pancreatitis as most likely cause of new SIRS. No pseudocyst no evidence of any abscess. - last CT worse clinically improved with Meropenem and Micafungin IV so / pancreatitis related peritonitis. MSSA and Kleb pneumo pneumonia. New high fevers : ? new infection vs worsening or necrotizing pancreatitis. Acute resp failure on vent. Acute renal failure was on HD till 05/10/16. Alcoholism Recs: Continue Meropenem IV (ASP: possible necrotizing fascitis, persistent fevers on broad spectrum antibiotics, PCN allergy) Continue Micafungin IV (ASP: fevers despite Diflucan, on BSA abdominal source as well as possible line infection ? fungemia) Monitor progress Monitor Sienna Mitchell MD May 17, 2016 11:13
[2016-05-17] MEDS: MICAFUNGIN INJ 150 MG in SODIUM CHLORIDE 0.9% INJ 100 ML IV SCH (16:57)
[2016-05-17] MEDS: POTASSIUM CL 40 MEQ/30 ML LIQ UDC PO/TUBE PRN (18:19)
[2016-05-18] VITALS (18 sets, daily range): BP systolic 131–156; BP diastolic 65–87; PULSE 66–90; RESP 20–27; TEMP 98.5–100.2; O2SAT 96–100
[2016-05-18] MEDS: DEXTROSE 5% IN WATE 1000ML INJ 1,000 ML IV SCH ×3 (00:23→23:07)
[2016-05-18] MEDS: RESP: ALBUTEROL 2.5 MG/IPRATROPIUM 0.5 MG NEB (SCH) NEB ×6 (00:31→18:37)
[2016-05-18] MEDS: oxyCODONE HCL ORAL CONC 20 MG/ML SYRINGE NG SCH ×5 (02:52→19:48)
[2016-05-18] MEDS: CHLORHEXIDINE GLUCONATE 2 % 1 PACK (2 CLOTHS) TOP SCH (02:53)
[2016-05-18] MEDS: METOCLOPRAMIDE HCL SYRUP 10 MG/10 ML UDC NG SCH ×3 (04:40→23:04)
[2016-05-18 05:03] LABS: HEMATOCRIT 25.1 % (39.0-51.0); MEAN CELL VOLUME 79.8 FL (80.0-100.0); MEAN CORPUSCULAR HEMOGLOBIN 25.6 PG (27.0-34.0); PLATELET COUNT 522 TH/MM3 (150-450); RED BLOOD COUNT 3.14 MIL/MM3 (4.50-5.90); RED CELL DISTRIBUTION WIDTH 17.1 % (11.6-17.2); REVIEW FLAG FINAL; WHITE BLOOD COUNT 18.9 TH/MM3 (4.0-11.0)
[2016-05-18 05:20] LABS: BICARBONATE 31.7 MEQ/L (21.0-32.0); POTASSIUM 3.9 MEQ/L (3.5-5.1)
[2016-05-18] MEDS: CHLORHEXIDINE 0.12% (ORAL KIT) 15 ML CUP MT SCH ×2 (08:00→19:48)
[2016-05-18] MEDS: MEROPENEM INJ 500 MG in SODIUM CHLORIDE 0.9% INJ 100 ML IV SCH ×2 (08:10→17:10)
[2016-05-18] MEDS: HEPARIN SODIUM - SQ 10,000 UNITS/ML VIAL SQ SCH ×3 (08:10→23:05)
[2016-05-18] MEDS: BUMETANIDE INJ 1 MG/4 ML VIAL IV PUSH SCH ×2 (08:10→17:11)
[2016-05-18] MEDS: FAMOTIDINE 20 MG TAB NG SCH ×2 (08:11→19:47)
[2016-05-18] MEDS: SODIUM CHLORIDE 0.9% FLUSH 5 ML FLUSH IV FLUSH SCH ×2 (08:11→19:47)
--- NOTE | 2016-05-18 14:58 | HHI.CCPN ---
Subjective Remarks/Hospital Course This is a 65-year-old male with history of COPD, strong alcohol abuse history, diabetes, questionable history of heart failure, coronary artery disease who initially presented to the emergency department 04/25 with abdominal pain and was found to have acute pancreatitis. He was noted to the hospital at that time. Over the subsequent 48 hours, he developed worsening hypoxia as well as an acute kidney injury. This was initially thought to be CHF exacerbation and volume overload. He was given diuretics without a good response. His creatinine has trended up to 6. Nephrology was consulted and are considering renal replacement therapy. Tonight throughout the night, the patient became more hypoxic and dyspneic with increasing oxygen requirement. He is transferred to the ICU for his acute hypoxic respiratory failure. The patient is nauseated and has vomited a few times. 04/28: Intubated for respiratory distress with hypoxemia, now with acceptable gas exchange. Tolerating dialysis, try to extubate shortly. 04/29: Abdomen much too distended for extubation. NG tube placed with Roman forceps. 04/30: Abdomen remains tensely distended. No peritoneal irritation. BS few. 05/01: Abdomen remains tensely distended. No peritoneal irritation. 05/02: Abdominal distention worse. Pain worse. Will get CT to look for perforation. 05/03: CT abdomen with rip-roaring inflammatory process involving the pancreas; much worse. Sputum with multiple organisms. Patient clinically more critically ill. 05/04: Will start TFs if OK with GI service. 05/05: Dobbhoff tube in stomach. Will try to advance to duodenum and avoid TPN if at all possible. 05/06: DHT not post-pyloric, will advance and get KUB in a.m. 05/07: Persistent low grade fever and leukocytosis. Ileus persists. Goal is to get intestinal motility restored, decompress abdomen, extubate, and transfer to son's area in [place] for long-term care. 05/08: Remains sedated, arousable, orally intubated on mechanical ventilation. 05/09: Sedated, arousable, orally intubated on mechanical ventilation. On TPN 05/10: Sedated, arousable, orally intubated on mechanical ventilation. Remains on TPN as Dobbhoff remains in stomach. Scheduled for percutaneous tracheostomy today. Awaiting G/J tube placement by GI. 05/11: plan for g/j today. getting 2 units prbc for hgb 6.9. s/p trach yesterday. 05/12: g/j yesterday. persistently febrile yesterday. wbc still elevated. Lipase 130. awaiting repeat CT abd/pelvis results. new line placed yesterday and old line discontinued. cultures pending. 05/13: Patient tolerating C Pap 10 over 5. Waking up easily, follows commands on upper and lower extremities. WBC count stable at 23, ID is following. CT abdomen pelvis yesterday shows severe peripancreatic inflammatory changes 05/14: Did not tolerate TP yesterday, developed nonsustained V. tach. Wakes up easily follows commands. WBC trending down, tolerating tube feeds. Off TPN. Magnesium 1.4 getting replaced 05/15: No acute events reported overnight, communicating, cooperative with physical therapy. Tolerated T piece several hours yesterday 05/16: Developed acute shortness of breath, with bilateral wheezing and crackles. Chest x-ray shows increased pulmonary vascular congestion. Large amount of ET tube secretions. Appears to be more comfortable with PC/AC settings 05/17: Breathing more comfortable today, on PCV. Still has trach secretions. Resume CPAP/TP today. Sputum culture ordered 05/18: On PS/CPAP today not tolerating ATP. CXR pending. Sputum culture 05/16 negative to date Objective Vital Signs Date Time Temp Pulse Resp B/P Pulse Ox O2 Delivery O2 Flow Rate FiO2 05/18/16 14:00 74 05/18/16 12:00 98.7 24 149/77 96 05/18/16 12:00 40 05/18/16 11:06 T-piece 6.00 Intake and Output 05/17/16 05/17/16 05/18/16 08:00 16:00 00:00 Intake Total 1397 ml 1459 ml 1053 ml Output Total 475 ml 1400 ml 1100 ml Balance 922 ml 59 ml -47 ml Result Diagram: 05/18/16 0448 05/18/16 0448 Imaging Critical care bedside ultrasound 04/27: Grossly preserved left ventricular function. Normal RV size and function. Small collapsible IVC which very strongly with respirations and is almost completely flat with inspiration. No pericardial effusion. Objective Remarks GENERAL: Middle-aged male, breathing more comfortably on PSV HEENT: Normocephalic. Atraumatic. NECK: Supple, orally intubated. CHEST: On mechanical ventilation, bilateral mild expiratory wheezing. CARDIOVASCULAR: normal rate, regular rhythm. No murmurs. No JVD. ABDOMEN: Soft nontender, Occasional BS. MUSCULOSKELETAL: Trace peripheral edema. Warm, well perfused. NEUROLOGICAL: Alert awake, attempts to mouth words. Follows commands all 4 extremities. Urinary Catheter: Yes Assessment to: Continue A/P Assessment and Plan Plan by systems: Neurologic: Alcohol abuse Metabolic encephalopathy Pain associated with acute pancreatitis - Scheduled po oxycodone 10mg for pain - Dilaudid to 1mg iv q4h prn for breakthrough pain - iv Tylenol 1gm q8h prn for pain or fever. Respiratory: Acute hypoxic respiratory failure ARDS COPD Tolerating CPAP, but did not tolerated TP today --Chest x-ray shows increased pulmonary vascular congestion 05/16, repeat CXR today pending --Vent bundle, Head of bed at 30 Wean FiO2 for goal SPO2 greater than 90% Nebs every 4 and every 2 when necessary Cardiovascular: Sinus tachycardia SIRS response NSVT / most likely from hypomagnesemia SIRS likely 2/2 acute pancreatitis --Keep Mag >2, K>4 Renal: Acute kidney injury- improving. Hypernatremia Likely has a component of prerenal, but also likely from acute pancreatitis Hardin catheter, Strict I/Os, monitor and replete electro lites, follow BUN/ creatinine --Nephrology following. vas cath removed 05/11. --Bumex 1 mg IV q12, free water replacement with D5W at 100 mL per hour FEN/GI: Severe intravascular volume depletion- resolved. Severe acute pancreatitis Severe hypocalcemia Metabolic acidosis Currently tube feed to goal. Off TPN for nutrition 05/07 - 05/14. GJ tube placed 05/11. Daily CMP, CBC --Bumex 1 mg IV q12, free water replacement with D5W at 100 mL per hour Heme/ID: Leukocytosis Anemia secondary to acute blood loss and critical illness Likely reactive secondary to acute pancreatitis Stool for C. difficile negative (05/08) Urine, sputum, blood cultures. ABX per ID service. Daily CBC --s/p 2 units PRBC 05/11. stable hgb. ID - Leukocytosis with shift. Dr. Hercules ID following - Sputum 05/01 - Klebsiella, E. coli, Staph MSSA - Repeat sputum 05/16 negative - Continue Meropenem IV and Micafungin IV. Give single dose of vancomycin - If wbc count increase will repeat CT abd pelvis in am Endocrine: Diabetes -- SSI, medium scale, every 6 hours Prophylaxis: GI Prophylaxis Protonix 40 mg IV daily 24 hours DVT Prophylaxis --SCDs Heparin 5000 every 12h Lines: 04/27 left subclavian triple-lumen catheter - discontinued. New central line placed right subclavian 05/07, d/c'd 05/11. left SC TLC placed 05/11. Wilfred Paulson had lengthy discussions with patient's son at bedside about the severity of his illness and poor prognosis. Time spent on critical care excluding procedures 35 minutes Gerson Cuevas MD May 18, 2016 14:58
--- NOTE | 2016-05-18 15:29 | RADRPT ---
EXAM DATE/TIME: 05/18/2016 15:00 [facility] COMPARISON: CHEST SINGLE AP, May 16, 2016, 9:21. INDICATIONS : Increasing difficulty breathing. MEDICAL HISTORY : Hypertension. Cardiovascular disease. Diabetes mellitus type II. SURGICAL HISTORY : Trach. ENCOUNTER: Subsequent ACUITY: 4 - 6 days PAIN SCORE: 0/10 LOCATION: Bilateral chest FINDINGS: Trach tube and central venous catheter are in good position. Right lung is clear. Min imal consolidative changes are seen in the left base, improving in the interval. CONCLUSION: Interval improvement. Kermit Rollins MD FACR on May 18, 2016 at 15:20 Board Certified Radiologist. This report was verified electronically.
[2016-05-18] MEDS ORDERED: VANCOMYCIN INJ 1,000 MG in SODIUM CHLOR 0.9% 250 ML INJ 250 ML IV ONE (15:45)
[2016-05-18] MEDS: MICAFUNGIN INJ 150 MG in SODIUM CHLORIDE 0.9% INJ 100 ML IV SCH (17:10)
[2016-05-19] VITALS (16 sets, daily range): BP systolic 121–151; BP diastolic 68–81; PULSE 70–108; RESP 15–24; TEMP 98.9–99.7; O2SAT 95–99
[2016-05-19] MEDS: RESP: ALBUTEROL 2.5 MG/IPRATROPIUM 0.5 MG NEB (SCH) NEB ×6 (00:28→19:34)
[2016-05-19] MEDS: MEROPENEM INJ 500 MG in SODIUM CHLORIDE 0.9% INJ 100 ML IV SCH ×2 (00:29→08:18)
[2016-05-19] MEDS: oxyCODONE HCL ORAL CONC 20 MG/ML SYRINGE NG SCH ×7 (00:29→23:48)
[2016-05-19 03:59] LABS: AUTOMATED NEUTROPHIL # 13.2 TH/MM3 (1.8-7.7); BASOPHIL # 0.1 TH/MM3 (0-0.2); BASOPHIL % 0.7 % (0.0-2.0); EOSINOPHIL # 0.7 TH/MM3 (0-0.4); HEMATOCRIT 24.1 % (39.0-51.0); HEMO FLAGS DIFF FINAL; LYMPH % 11.9 % (9.0-44.0); LYMPHOCYTE # 2.1 TH/MM3 (1.0-4.8); MEAN CELL VOLUME 78.3 FL (80.0-100.0); MEAN CORPUSCULAR HEMOGLOBIN 25.7 PG (27.0-34.0); MEAN CORPUSCULAR HGB CONC 32.9 % (32.0-36.0); MONO % 8.5 % (0.0-8.0); NEUT % 74.9 % (16.0-70.0); PLATELET COUNT 474 TH/MM3 (150-450); RED BLOOD COUNT 3.08 MIL/MM3 (4.50-5.90); RED CELL DISTRIBUTION WIDTH 16.9 % (11.6-17.2); WHITE BLOOD COUNT 17.6 TH/MM3 (4.0-11.0)
[2016-05-19] MEDS: CHLORHEXIDINE GLUCONATE 2 % 1 PACK (2 CLOTHS) TOP SCH ×2 (04:00→19:47)
[2016-05-19 04:40] LABS: ALKALINE PHOSPHATASE 111 U/L (45-117); ALT (GPT) 32 U/L (12-78); ANION GAP 7 MEQ/L (5-15); AST (GOT) 50 U/L (15-37); BICARBONATE 34.2 MEQ/L (21.0-32.0); BLOOD UREA NITROGEN 18 MG/DL (7-18); CHLORIDE 103 MEQ/L (98-107); GLOMERULAR FILTRATION RATE 164 ML/MIN (>89); MAGNESIUM 1.1 MG/DL (1.5-2.5); POTASSIUM 3.6 MEQ/L (3.5-5.1); SODIUM (NA) 144 MEQ/L (136-145); TOTAL BILIRUBIN ADULT 0.4 MG/DL (0.2-1.0)
[2016-05-19] MEDS: METOCLOPRAMIDE HCL SYRUP 10 MG/10 ML UDC NG SCH ×3 (05:49→21:04)
[2016-05-19] MEDS: FAMOTIDINE 20 MG TAB NG SCH ×2 (08:17→21:04)
[2016-05-19] MEDS: HEPARIN SODIUM - SQ 10,000 UNITS/ML VIAL SQ SCH ×3 (08:18→23:47)
[2016-05-19] MEDS: BUMETANIDE INJ 1 MG/4 ML VIAL IV PUSH SCH ×2 (08:18→17:20)
[2016-05-19] MEDS: CHLORHEXIDINE 0.12% (ORAL KIT) 15 ML CUP MT SCH ×2 (08:19→21:03)
[2016-05-19] MEDS: DEXTROSE 5% IN WATE 1000ML INJ 1,000 ML IV SCH (08:19)
[2016-05-19] MEDS: SODIUM CHLORIDE 0.9% FLUSH 5 ML FLUSH IV FLUSH SCH ×2 (09:00→21:04)
--- NOTE | 2016-05-19 11:37 | HHI.CCPN ---
Subjective Remarks/Hospital Course This is a 65-year-old male with history of COPD, strong alcohol abuse history, diabetes, questionable history of heart failure, coronary artery disease who initially presented to the emergency department 04/25 with abdominal pain and was found to have acute pancreatitis. He was noted to the hospital at that time. Over the subsequent 48 hours, he developed worsening hypoxia as well as an acute kidney injury. This was initially thought to be CHF exacerbation and volume overload. He was given diuretics without a good response. His creatinine has trended up to 6. Nephrology was consulted and are considering renal replacement therapy. Tonight throughout the night, the patient became more hypoxic and dyspneic with increasing oxygen requirement. He is transferred to the ICU for his acute hypoxic respiratory failure. The patient is nauseated and has vomited a few times. 04/28: Intubated for respiratory distress with hypoxemia, now with acceptable gas exchange. Tolerating dialysis, try to extubate shortly. 04/29: Abdomen much too distended for extubation. NG tube placed with Roman forceps. 04/30: Abdomen remains tensely distended. No peritoneal irritation. BS few. 05/01: Abdomen remains tensely distended. No peritoneal irritation. 05/02: Abdominal distention worse. Pain worse. Will get CT to look for perforation. 05/03: CT abdomen with rip-roaring inflammatory process involving the pancreas; much worse. Sputum with multiple organisms. Patient clinically more critically ill. 05/04: Will start TFs if OK with GI service. 05/05: Dobbhoff tube in stomach. Will try to advance to duodenum and avoid TPN if at all possible. 05/06: DHT not post-pyloric, will advance and get KUB in a.m. 05/07: Persistent low grade fever and leukocytosis. Ileus persists. Goal is to get intestinal motility restored, decompress abdomen, extubate, and transfer to son's area in [place] for long-term care. 05/08: Remains sedated, arousable, orally intubated on mechanical ventilation. 05/09: Sedated, arousable, orally intubated on mechanical ventilation. On TPN 05/10: Sedated, arousable, orally intubated on mechanical ventilation. Remains on TPN as Dobbhoff remains in stomach. Scheduled for percutaneous tracheostomy today. Awaiting G/J tube placement by GI. 05/11: plan for g/j today. getting 2 units prbc for hgb 6.9. s/p trach yesterday. 05/12: g/j yesterday. persistently febrile yesterday. wbc still elevated. Lipase 130. awaiting repeat CT abd/pelvis results. new line placed yesterday and old line discontinued. cultures pending. 05/13: Patient tolerating C Pap 10 over 5. Waking up easily, follows commands on upper and lower extremities. WBC count stable at 23, ID is following. CT abdomen pelvis yesterday shows severe peripancreatic inflammatory changes 05/14: Did not tolerate TP yesterday, developed nonsustained V. tach. Wakes up easily follows commands. WBC trending down, tolerating tube feeds. Off TPN. Magnesium 1.4 getting replaced 05/15: No acute events reported overnight, communicating, cooperative with physical therapy. Tolerated T piece several hours yesterday 05/16: Developed acute shortness of breath, with bilateral wheezing and crackles. Chest x-ray shows increased pulmonary vascular congestion. Large amount of ET tube secretions. Appears to be more comfortable with PC/AC settings 05/17: Breathing more comfortable today, on PCV. Still has trach secretions. Resume CPAP/TP today. Sputum culture ordered 05/18: On PS/CPAP today not tolerating ATP. CXR pending. Sputum culture 05/16 negative to date 05/19: tolerated TP for 12 hours yesterday. doing well this AM. on PSV this AM. Objective Vital Signs Date Time Temp Pulse Resp B/P Pulse Ox O2 Delivery O2 Flow Rate FiO2 05/19/16 10:00 82 05/19/16 09:18 19 05/19/16 08:00 99.6 123/75 95 05/19/16 08:00 35 05/18/16 18:38 T-piece 6.00 Intake and Output 05/18/16 05/18/16 05/19/16 08:00 16:00 00:00 Intake Total 1408 ml 1542 ml 1637 ml Output Total 500 ml 1350 ml 1900 ml Balance 908 ml 192 ml -263 ml Result Diagram: 05/19/16 0345 05/19/16 0345 Other Results Microbiology Date/Time Procedure Status Source Growth 05/17/16 17:18 Gram Stain - Final Complete Sputum Endotracheal 05/17/16 17:18 Sputum Culture - Final Complete Sputum Endotracheal HEAVY GROWTH NORMAL RESPIRATORY ODALYS Imaging Critical care bedside ultrasound 04/27: Grossly preserved left ventricular function. Normal RV size and function. Small collapsible IVC which very strongly with respirations and is almost completely flat with inspiration. No pericardial effusion. Objective Remarks GENERAL: Middle-aged male, breathing more comfortably on PSV HEENT: Normocephalic. Atraumatic. NECK: Supple, orally intubated. CHEST: On mechanical ventilation, bilateral mild expiratory wheezing. CARDIOVASCULAR: normal rate, regular rhythm. No murmurs. No JVD. ABDOMEN: Soft nontender, Occasional BS. MUSCULOSKELETAL: Trace peripheral edema. Warm, well perfused. NEUROLOGICAL: Alert awake, attempts to mouth words. Follows commands all 4 extremities. A/P Assessment and Plan Plan by systems: Neurologic: Alcohol abuse Metabolic encephalopathy Pain associated with acute pancreatitis - Scheduled po oxycodone 10mg for pain - Dilaudid to 1mg iv q4h prn for breakthrough pain - iv Tylenol 1gm q8h prn for pain or fever. Respiratory: Acute hypoxic respiratory failure ARDS COPD Tolerating CPAP, but did not tolerated TP today --Vent bundle, Head of bed at 30 Wean FiO2 for goal SPO2 greater than 90% Nebs every 4 and every 2 when necessary Cardiovascular: Sinus tachycardia SIRS response NSVT 2/3 most likely from hypomagnesemia SIRS likely 2/2 acute pancreatitis --Keep Mag >2, K>4 Renal: Acute kidney injury- improving. Hypernatremia Likely has a component of prerenal, but also likely from acute pancreatitis Hardin catheter, Strict I/Os, monitor and replete electro lites, follow BUN/ creatinine --Nephrology following. vas cath removed 05/11. --Bumex 1 mg IV q12, d/c D5w. start per tube free water 300 q4h. FEN/GI: Severe intravascular volume depletion- resolved. Severe acute pancreatitis Severe hypocalcemia Metabolic acidosis Currently tube feed to goal. Off TPN for nutrition 05/07 - 05/14. GJ tube placed 05/11. Daily CMP, CBC --Bumex 1 mg IV q12, free water per tube 300 q4h. Heme/ID: Leukocytosis Anemia secondary to acute blood loss and critical illness Likely reactive secondary to acute pancreatitis Stool for C. difficile negative (05/08) Urine, sputum, blood cultures. ABX per ID service. Daily CBC --s/p 2 units PRBC 05/11. stable hgb. ID - Leukocytosis with shift. Dr. Hecrules ID following - Sputum 05/01 - Klebsiella, E. coli, Staph MSSA - Repeat sputum 05/16 negative - Continue Meropenem IV and Micafungin IV. Give single dose of vancomycin Endocrine: Diabetes -- SSI, medium scale, every 6 hours Prophylaxis: GI Prophylaxis Protonix 40 mg IV daily 24 hours DVT Prophylaxis --SCDs Heparin 5000 every 12h Lines: 04/27 left subclavian triple-lumen catheter - discontinued. New central line placed right subclavian 05/07, d/c'd 05/11. left SC TLC placed 05/11. will obtain 2 piv and d/c CVL. Hardin. will keep today given ongoing forced diuresis. Dr. Paulson had lengthy discussions with patient's son at bedside about the severity of his illness and poor prognosis. Dakota Sanchez MD May 19, 2016 11:36
[2016-05-19] MEDS: FREE WATER G-TUBE SCH ×4 (12:43→23:48)
--- NOTE | 2016-05-19 14:22 | HHI.IDPN ---
Subjective Subjective Remarks is a 65 y/o AAM with PMHx of COPD, CAD/CHF, DM, heavy alcohol abuse , Hepatitis C, pancreatitis in past. ID following for possible sepsis, acute pancreatitis and pneumonia. Overnight events reviewed with RN. On the vent. Trach and GJ tube in place. Follows commands and responds by nodding. On vent but up in chair position. UO good. Denies abdominal pain. White secretions copious needing suctioning very frequently. Sats improve from 89 to 94 after suctioning. Denies chest pain. Occ low grade fever. WBC stable. Normal lipase. Antibiotics Meropenem IV Micafungin IV Lines Line sites with no e/o infection Past Medical History reviewed Allergies: Coded Allergies: Penicillin (Verified Allergy, Severe, HIVES, 04/24/16) Objective . Vital Signs Date Time Temp Pulse Resp B/P Pulse Ox O2 Delivery O2 Flow Rate FiO2 05/19/16 14:00 108 05/19/16 13:43 18 05/19/16 12:00 90 05/19/16 12:00 35 05/19/16 12:00 99.7 90 24 139/81 96 05/19/16 10:00 82 05/19/16 08:00 99.6 80 15 123/75 95 05/19/16 08:00 35 05/19/16 08:00 80 05/19/16 07:40 98 35 05/19/16 06:00 73 05/19/16 04:13 98 35 05/19/16 04:00 35 05/19/16 04:00 71 05/19/16 04:00 99.1 74 18 135/68 98 05/19/16 02:00 80 05/19/16 00:29 99 35 05/19/16 00:00 35 05/19/16 00:00 70 05/19/16 00:00 98.9 70 18 131/73 98 05/18/16 22:00 71 05/18/16 21:55 98 35 05/18/16 20:00 99.2 90 24 154/79 99 05/18/16 20:00 86 05/18/16 20:00 35 05/18/16 18:38 96 T-piece 6.00 35 05/18/16 18:00 71 05/18/16 16:00 89 05/18/16 16:00 100.2 85 24 156/86 97 05/18/16 16:00 35 05/18/16 05/18/16 05/19/16 15:00 23:00 07:00 Intake Total 1542 ml 1637 ml 1042 ml Output Total 1350 ml 1900 ml 400 ml Balance 192 ml -263 ml 642 ml Intake Oral 0 ml 0 ml 0 ml IV Total 949 ml 1081 ml 640 ml Tube Feeding 493 ml 496 ml 342 ml Tube Irrigant 100 ml 60 ml 60 ml Output Urine Total 1250 ml 1800 ml 350 ml Gastric Drainage Total 100 ml 100 ml 50 ml # Bowel Movements 1 0 0 . Laboratory Tests Test 05/18/16 05/19/16 04:48 03:45 White Blood Count 18.9 TH/MM3 17.6 TH/MM3 Red Blood Count 3.14 MIL/MM3 3.08 MIL/MM3 Hemoglobin 8.0 GM/DL 7.9 GM/DL Hematocrit 25.1 % 24.1 % Mean Corpuscular Volume 79.8 FL 78.3 FL Mean Corpuscular Hemoglobin 25.6 PG 25.7 PG Mean Corpuscular Hemoglobin 32.0 % 32.9 % Concent Red Cell Distribution Width 17.1 % 16.9 % Platelet Count 522 TH/MM3 474 TH/MM3 Mean Platelet Volume 9.6 FL 9.3 FL Neutrophils (%) (Auto) 74.9 % Lymphocytes (%) (Auto) 11.9 % Monocytes (%) (Auto) 8.5 % Eosinophils (%) (Auto) 4.0 % Basophils (%) (Auto) 0.7 % Neutrophils # (Auto) 13.2 TH/MM3 Lymphocytes # (Auto) 2.1 TH/MM3 Monocytes # (Auto) 1.5 TH/MM3 Eosinophils # (Auto) 0.7 TH/MM3 Basophils # (Auto) 0.1 TH/MM3 CBC Comment DIFF FINAL Differential Comment Laboratory Tests Test 05/17/16 05/18/16 05/19/16 17:05 04:48 03:45 Potassium Level 3.2 MEQ/L 3.9 MEQ/L 3.6 MEQ/L Sodium Level 150 MEQ/L 144 MEQ/L Chloride Level 111 MEQ/L 103 MEQ/L Carbon Dioxide Level 31.7 MEQ/L 34.2 MEQ/L Anion Gap 7 MEQ/L 7 MEQ/L Blood Urea Nitrogen 24 MG/DL 18 MG/DL Creatinine 0.69 MG/DL 0.60 MG/DL Estimat Glomerular Filtration 139 ML/MIN 164 ML/MIN Rate Random Glucose 114 MG/DL 117 MG/DL Calcium Level 8.4 MG/DL 8.1 MG/DL Magnesium Level 1.1 MG/DL Total Bilirubin 0.4 MG/DL Aspartate Amino Transf 50 U/L (AST/SGOT) Alanine Aminotransferase 32 U/L (ALT/SGPT) Alkaline Phosphatase 111 U/L Total Protein 5.4 GM/DL Albumin 1.8 GM/DL Lipase 226 U/L Microbiology Date/Time Procedure Status Source Growth 05/17/16 17:18 Gram Stain - Final Complete Sputum Endotracheal 05/17/16 17:18 Sputum Culture - Final Complete Sputum Endotracheal HEAVY GROWTH NORMAL RESPIRATORY ODALYS 05/18/16 16:50 Aerobic Blood Culture - Preliminary Resulted Blood Peripheral NO GROWTH IN 1 DAY 05/18/16 16:50 Anaerobic Blood Culture - Preliminary Resulted Blood Peripheral NO GROWTH IN 1 DAY 05/18/16 16:55 Aerobic Blood Culture - Preliminary Resulted Blood Peripheral NO GROWTH IN 1 DAY 05/18/16 16:55 Anaerobic Blood Culture - Preliminary Resulted Blood Peripheral NO GROWTH IN 1 DAY Imaging Abdomen X-Ray 05/07/16 0400 Signed Impressions: Service Date/Time: Saturday, May 07, 2016 05:03 - CONCLUSION: There are 2 tubes within the stomach. Jhonny Green MD Tube Placement X-Ray 05/05/16 0000 Signed Impressions: Service Date/Time: April 16:20 - CONCLUSION: Fluoroscopically guided nasogastric tube repositioning as above. Attempts were discontinued after multiple attempts with the tubing seen coiling within the patient's mouth region and proximal esophagus. Tessa Nichole MD Abdomen X-Ray 05/05/16 0000 Signed Impressions: Service Date/Time: April 13:42 - CONCLUSION: No evidence of obstruction. Stable placement of Dobbhoff tube and nasogastric tube. Tessa Nichole MD Abdomen/Pelvis CT 05/02/16 0000 Signed Impressions: Service Date/Time: Monday, May 02, 2016 15:43 - CONCLUSION: 1. The exam demonstrates extensive inflammatory change around the pancreas with fluid extending down into the paracolic gutters consistent with severe pancreatitis. This has significantly worsened when compared to previous dated 04/24/16. No organized pseudocyst is present. 2. NG tube and Hardin in good position. Seng Rollins MD Abdomen X-Ray 04/30/16 0000 Signed Impressions: Service Date/Time: Saturday, April 30, 2016 05:12 - CONCLUSION: No dilated loops of small bowel. Stable dilated transverse colon. Hubert Garcia MD Chest X-Ray 04/27/16 0000 Signed Impressions: Service Date/Time: Wednesday, April 27, 2016 10:28 - CONCLUSION: 1. Dialysis catheter in good position. 2. Increasing bibasilar parenchymal changes worse on the left. Kermit Rollins MD FACR Renal Ultrasound 04/25/16 0000 Signed Impressions: Service Date/Time: Monday, April 25, 2016 15:01 - CONCLUSION: No evidence of hydronephrosis. Tom Seals MD Physical Exam GENERAL: Opens eyes, on the vent, NAD SKIN: No rashes. Warm, improving edema HEAD: Atraumatic. Normocephalic. No temporal or scalp tenderness. EYES: Pupils equal round and reactive. No injection or drainage. ENT: trach site ok. NECK: Trachea midline. Supple, nontender, no meningeal signs. CARDIOVASCULAR: Heart sounds audible. RESPIRATORY: Clear to auscultation. Breath sounds equal bilaterally with decrease in the bases. GASTROINTESTINAL: Abdomen distended, tenderness diffusely, hypoactive bowel sounds. GJ tube site ok. MUSCULOSKELETAL: Extremities without clubbing, cyanosis. Pedal edema noted, improving. NEUROLOGICAL: Moves all extremities, follows commands. Psych pleasant IV line sites with no evidence of infection. Assessment & Plan Remarks Sepsis (source: likely intra abdominal and aspiration/Health care associated pneumonia. Reviewed other sources: CL and HD cath, Cath associated UTI. Severe acute pancreatitis as most likely cause of new SIRS. No pseudocyst no evidence of any abscess. - last CT worse clinically improved with Meropenem and Micafungin IV so / pancreatitis related peritonitis. MSSA and Kleb pneumo pneumonia. New high fevers : ? new infection vs worsening or necrotizing pancreatitis. Acute resp failure on vent. Acute renal failure was on HD till 05/10/16. Alcoholism Recs: DC Meropenem IV DC Micafungin IV Monitor progress off antibiotics Monitor temps off antibiotics. DC Central line. DC Hardin when able. Yumiko Ta to cover for me this weekend. Will sign off please call back if any change in clinical condition or questions. Sienna Hercules MD May 19, 2016 14:22
[2016-05-20] VITALS (14 sets, daily range): BP systolic 121–145; BP diastolic 66–76; PULSE 68–100; RESP 12–27; TEMP 99.1–99.7; O2SAT 97–100
[2016-05-20] MEDS: RESP: ALBUTEROL 2.5 MG/IPRATROPIUM 0.5 MG NEB (SCH) NEB ×7 (00:01→23:43)
[2016-05-20] MEDS: FREE WATER G-TUBE SCH ×6 (04:00→23:41)
[2016-05-20] MEDS: oxyCODONE HCL ORAL CONC 20 MG/ML SYRINGE NG SCH ×6 (04:00→23:41)
[2016-05-20 04:32] LABS: MEAN CELL VOLUME 78.7 FL (80.0-100.0); MEAN CORPUSCULAR HEMOGLOBIN 25.7 PG (27.0-34.0); MEAN CORPUSCULAR HGB CONC 32.6 % (32.0-36.0); PLATELET COUNT 427 TH/MM3 (150-450); RED BLOOD COUNT 3.18 MIL/MM3 (4.50-5.90); RED CELL DISTRIBUTION WIDTH 16.8 % (11.6-17.2); REVIEW FLAG FINAL; WHITE BLOOD COUNT 18.4 TH/MM3 (4.0-11.0)
[2016-05-20 05:07] LABS: BICARBONATE 35.8 MEQ/L (21.0-32.0); POTASSIUM 3.7 MEQ/L (3.5-5.1)
[2016-05-20] MEDS: METOCLOPRAMIDE HCL SYRUP 10 MG/10 ML UDC NG SCH ×3 (06:00→21:46)
[2016-05-20] MEDS: HEPARIN SODIUM - SQ 10,000 UNITS/ML VIAL SQ SCH ×3 (07:15→23:41)
--- NOTE | 2016-05-20 07:44 | HHI.CCPN ---
Subjective Remarks/Hospital Course This is a 65-year-old male with history of COPD, strong alcohol abuse history, diabetes, questionable history of heart failure, coronary artery disease who initially presented to the emergency department 04/25 with abdominal pain and was found to have acute pancreatitis. He was noted to the hospital at that time. Over the subsequent 48 hours, he developed worsening hypoxia as well as an acute kidney injury. This was initially thought to be CHF exacerbation and volume overload. He was given diuretics without a good response. His creatinine has trended up to 6. Nephrology was consulted and are considering renal replacement therapy. Tonight throughout the night, the patient became more hypoxic and dyspneic with increasing oxygen requirement. He is transferred to the ICU for his acute hypoxic respiratory failure. The patient is nauseated and has vomited a few times. 04/28: Intubated for respiratory distress with hypoxemia, now with acceptable gas exchange. Tolerating dialysis, try to extubate shortly. 04/29: Abdomen much too distended for extubation. NG tube placed with Roman forceps. 04/30: Abdomen remains tensely distended. No peritoneal irritation. BS few. 05/01: Abdomen remains tensely distended. No peritoneal irritation. 05/02: Abdominal distention worse. Pain worse. Will get CT to look for perforation. 05/03: CT abdomen with rip-roaring inflammatory process involving the pancreas; much worse. Sputum with multiple organisms. Patient clinically more critically ill. 05/04: Will start TFs if OK with GI service. 05/05: Dobbhoff tube in stomach. Will try to advance to duodenum and avoid TPN if at all possible. 05/06: DHT not post-pyloric, will advance and get KUB in a.m. 05/07: Persistent low grade fever and leukocytosis. Ileus persists. Goal is to get intestinal motility restored, decompress abdomen, extubate, and transfer to son's area in [place] for long-term care. 05/08: Remains sedated, arousable, orally intubated on mechanical ventilation. 05/09: Sedated, arousable, orally intubated on mechanical ventilation. On TPN 05/10: Sedated, arousable, orally intubated on mechanical ventilation. Remains on TPN as Dobbhoff remains in stomach. Scheduled for percutaneous tracheostomy today. Awaiting G/J tube placement by GI. 05/11: plan for g/j today. getting 2 units prbc for hgb 6.9. s/p trach yesterday. 05/12: g/j yesterday. persistently febrile yesterday. wbc still elevated. Lipase 130. awaiting repeat CT abd/pelvis results. new line placed yesterday and old line discontinued. cultures pending. 05/13: Patient tolerating C Pap 10 over 5. Waking up easily, follows commands on upper and lower extremities. WBC count stable at 23, ID is following. CT abdomen pelvis yesterday shows severe peripancreatic inflammatory changes 05/14: Did not tolerate TP yesterday, developed nonsustained V. tach. Wakes up easily follows commands. WBC trending down, tolerating tube feeds. Off TPN. Magnesium 1.4 getting replaced 05/15: No acute events reported overnight, communicating, cooperative with physical therapy. Tolerated T piece several hours yesterday 05/16: Developed acute shortness of breath, with bilateral wheezing and crackles. Chest x-ray shows increased pulmonary vascular congestion. Large amount of ET tube secretions. Appears to be more comfortable with PC/AC settings 05/17: Breathing more comfortable today, on PCV. Still has trach secretions. Resume CPAP/TP today. Sputum culture ordered 05/18: On PS/CPAP today not tolerating ATP. CXR pending. Sputum culture 05/16 negative to date 05/19: tolerated TP for 12 hours yesterday. doing well this AM. on PSV this AM. 05/20: TP again for 12 hours yesterday. could likely go on TP x 24h as tolerated. GJ tube clogged this AM. GI notified, likely going to radiology for assistance. Objective Vital Signs Date Time Temp Pulse Resp B/P Pulse Ox O2 Delivery O2 Flow Rate FiO2 05/20/16 06:00 76 05/20/16 04:00 35 05/20/16 04:00 99.3 16 131/66 98 05/18/16 18:38 T-piece 6.00 Intake and Output 05/19/16 05/19/16 05/20/16 08:00 16:00 00:00 Intake Total 1042 ml 1325 ml 0 ml Output Total 400 ml 1325 ml 1300 ml Balance 642 ml 0 ml -1300 ml Result Diagram: 05/20/16 0345 05/20/16 0345 Other Results Microbiology Date/Time Procedure Status Source Growth 05/17/16 17:18 Gram Stain - Final Complete Sputum Endotracheal 05/17/16 17:18 Sputum Culture - Final Complete Sputum Endotracheal HEAVY GROWTH NORMAL RESPIRATORY ODALYS Imaging Critical care bedside ultrasound 04/27: Grossly preserved left ventricular function. Normal RV size and function. Small collapsible IVC which very strongly with respirations and is almost completely flat with inspiration. No pericardial effusion. Objective Remarks GENERAL: Middle-aged male, breathing more comfortably on PSV HEENT: Normocephalic. Atraumatic. NECK: Supple, orally intubated. CHEST: On mechanical ventilation, bilateral mild expiratory wheezing. CARDIOVASCULAR: normal rate, regular rhythm. No murmurs. No JVD. ABDOMEN: Soft nontender, Occasional BS. MUSCULOSKELETAL: Trace peripheral edema. Warm, well perfused. NEUROLOGICAL: Alert awake, attempts to mouth words. Follows commands all 4 extremities. A/P Assessment and Plan Plan by systems: Neurologic: Alcohol abuse Metabolic encephalopathy Pain associated with acute pancreatitis - decrease scheduled po oxycodone 7.5mg for pain - Dilaudid to 1mg iv q4h prn for breakthrough pain - iv Tylenol 1gm q8h prn for pain or fever. Respiratory: Acute hypoxic respiratory failure ARDS COPD Tolerated TP x 12h yesterday. will attempt TP x 24h as tolerated. --Vent bundle, Head of bed at 30 Wean FiO2 for goal SPO2 greater than 90% Nebs every 4 and every 2 when necessary --OOB to chair daily. walk if possible with PT. Cardiovascular: Sinus tachycardia-resolved SIRS response- resolving NSVT 2/3 most likely from hypomagnesemia SIRS likely 2/2 acute pancreatitis --Keep Mag >2, K>4 Renal: Acute kidney injury- improving. Hypernatremia Metabolic alkalosis Likely has a component of prerenal, but also likely from acute pancreatitis Hardin catheter, Strict I/Os, monitor and replete electro lites, follow BUN/ creatinine --Nephrology following. vas cath removed 05/11. --Bumex 1 mg IV q12 -- continue per tube free water 300 q4h. -- diamox 500 iv q8h x 3 doses for alkalosis. FEN/GI: Severe intravascular volume depletion- resolved. Severe acute pancreatitis Severe hypocalcemia TF currently on hold due to G/J clogged. GI aware, likely to radiology to attempt unclogging. will restart TF when able. Off TPN for nutrition 05/07 - 05/14. GJ tube placed 05/11. Daily CMP, CBC --Bumex 1 mg IV q12, free water per tube 300 q4h. Heme/ID: Leukocytosis Anemia secondary to acute blood loss and critical illness Likely reactive secondary to acute pancreatitis Stool for C. difficile negative (05/08) Urine, sputum, blood cultures. ABX per ID service. Daily CBC --s/p 2 units PRBC 05/11. stable hgb. ID - Leukocytosis with shift. Dr. Hercules ID following - Sputum 05/01 - Klebsiella, E. coli, Staph MSSA - Repeat sputum 05/16 negative - Continue Meropenem IV and Micafungin IV. Give single dose of vancomycin Endocrine: Diabetes -- SSI, medium scale, every 6 hours Prophylaxis: GI Prophylaxis Protonix 40 mg IV daily 24 hours DVT Prophylaxis --SCDs Heparin 5000 every 12h Lines: 04/27 left subclavian triple-lumen catheter - discontinued. New central line placed right subclavian 05/07, d/c'd 05/11. left SC TLC placed 05/11, d/c'd 05/19. -- PIV's. Hardin. will consider d/c today if penile edema has improved. Dakota Sanchez MD May 20, 2016 07:44
[2016-05-20] MEDS: BUMETANIDE INJ 1 MG/4 ML VIAL IV PUSH SCH ×2 (07:53→18:25)
[2016-05-20] MEDS: SODIUM CHLORIDE 0.9% FLUSH 5 ML FLUSH IV FLUSH SCH ×2 (07:53→21:46)
[2016-05-20] MEDS: CHLORHEXIDINE 0.12% (ORAL KIT) 15 ML CUP MT SCH ×2 (07:53→20:00)
[2016-05-20] MEDS: FAMOTIDINE 20 MG TAB NG SCH ×2 (07:54→21:46)
[2016-05-20] MEDS ORDERED: MIDAZOLAM HCL 2 MG/2 ML VIAL ONE ×2 (17:16→17:35)
[2016-05-20] MEDS ORDERED: METOCLOPRAMIDE HCL 10 MG/2 ML VIAL ONE (17:21)
--- NOTE | 2016-05-20 17:41 | PD.RAD ---
Post Procedure Progress Note Pre Procedure Diagnosis: (1) Pancreatitis Post Procedure Diagnosis: (1) Pancreatitis Procedure Date: May 20, 2016 Supervising Radiologist: El Santiago Proceduralist/Assist: Rina Hayden, RT(R), Elizabeth Felton RT(R)() Anesthesia: Conscious Sedation Plan of Activity Patient to Unit: Nursing Unit Patient Condition: Fair See PACS Report for procedural detail/treatment Feeding Tube Gastro/Jejunostomy Exchange El Santiago MD May 20, 2016 17:41
[2016-05-21] VITALS (14 sets, daily range): BP systolic 111–148; BP diastolic 61–77; PULSE 75–86; RESP 18–26; TEMP 98.6–99.8; O2SAT 95–100
[2016-05-21] MEDS: RESP: ALBUTEROL 2.5 MG/IPRATROPIUM 0.5 MG NEB (SCH) NEB ×5 (03:12→21:01)
[2016-05-21] MEDS: FREE WATER G-TUBE SCH ×4 (03:39→22:55)
[2016-05-21] MEDS: oxyCODONE HCL ORAL CONC 20 MG/ML SYRINGE NG SCH ×5 (03:39→23:00)
[2016-05-21] MEDS: CHLORHEXIDINE GLUCONATE 2 % 1 PACK (2 CLOTHS) TOP SCH (03:39)
[2016-05-21 05:30] LABS: MEAN CELL VOLUME 79.7 FL (80.0-100.0); MEAN CORPUSCULAR HEMOGLOBIN 25.7 PG (27.0-34.0); MEAN CORPUSCULAR HGB CONC 32.2 % (32.0-36.0); PLATELET COUNT 397 TH/MM3 (150-450); RED BLOOD COUNT 3.26 MIL/MM3 (4.50-5.90); REVIEW FLAG FINAL; WHITE BLOOD COUNT 15.9 TH/MM3 (4.0-11.0)
[2016-05-21 05:47] LABS: BICARBONATE 29.7 MEQ/L (21.0-32.0); POTASSIUM 3.1 MEQ/L (3.5-5.1)
[2016-05-21] MEDS: METOCLOPRAMIDE HCL SYRUP 10 MG/10 ML UDC NG SCH ×3 (05:54→21:27)
[2016-05-21] MEDS: HEPARIN SODIUM - SQ 10,000 UNITS/ML VIAL SQ SCH ×3 (05:55→22:47)
[2016-05-21] MEDS: CHLORHEXIDINE 0.12% (ORAL KIT) 15 ML CUP MT SCH ×2 (08:05→19:25)
[2016-05-21] MEDS ORDERED: ACETAMINOPHEN 650 MG/20.3 ML UDC PO PRN (08:15)
--- NOTE | 2016-05-21 08:16 | HHI.CCPN ---
Subjective Remarks/Hospital Course This is a 65-year-old male with history of COPD, strong alcohol abuse history, diabetes, questionable history of heart failure, coronary artery disease who initially presented to the emergency department 04/25 with abdominal pain and was found to have acute pancreatitis. He was noted to the hospital at that time. Over the subsequent 48 hours, he developed worsening hypoxia as well as an acute kidney injury. This was initially thought to be CHF exacerbation and volume overload. He was given diuretics without a good response. His creatinine has trended up to 6. Nephrology was consulted and are considering renal replacement therapy. Tonight throughout the night, the patient became more hypoxic and dyspneic with increasing oxygen requirement. He is transferred to the ICU for his acute hypoxic respiratory failure. The patient is nauseated and has vomited a few times. 04/28: Intubated for respiratory distress with hypoxemia, now with acceptable gas exchange. Tolerating dialysis, try to extubate shortly. 04/29: Abdomen much too distended for extubation. NG tube placed with Roman forceps. 04/30: Abdomen remains tensely distended. No peritoneal irritation. BS few. 05/01: Abdomen remains tensely distended. No peritoneal irritation. 05/02: Abdominal distention worse. Pain worse. Will get CT to look for perforation. 05/03: CT abdomen with rip-roaring inflammatory process involving the pancreas; much worse. Sputum with multiple organisms. Patient clinically more critically ill. 05/04: Will start TFs if OK with GI service. 05/05: Dobbhoff tube in stomach. Will try to advance to duodenum and avoid TPN if at all possible. 05/06: DHT not post-pyloric, will advance and get KUB in a.m. 05/07: Persistent low grade fever and leukocytosis. Ileus persists. Goal is to get intestinal motility restored, decompress abdomen, extubate, and transfer to son's area in [place] for long-term care. 05/08: Remains sedated, arousable, orally intubated on mechanical ventilation. 05/09: Sedated, arousable, orally intubated on mechanical ventilation. On TPN 05/10: Sedated, arousable, orally intubated on mechanical ventilation. Remains on TPN as Dobbhoff remains in stomach. Scheduled for percutaneous tracheostomy today. Awaiting G/J tube placement by GI. 05/11: plan for g/j today. getting 2 units prbc for hgb 6.9. s/p trach yesterday. 05/12: g/j yesterday. persistently febrile yesterday. wbc still elevated. Lipase 130. awaiting repeat CT abd/pelvis results. new line placed yesterday and old line discontinued. cultures pending. 05/13: Patient tolerating C Pap 10 over 5. Waking up easily, follows commands on upper and lower extremities. WBC count stable at 23, ID is following. CT abdomen pelvis yesterday shows severe peripancreatic inflammatory changes 05/14: Did not tolerate TP yesterday, developed nonsustained V. tach. Wakes up easily follows commands. WBC trending down, tolerating tube feeds. Off TPN. Magnesium 1.4 getting replaced 05/15: No acute events reported overnight, communicating, cooperative with physical therapy. Tolerated T piece several hours yesterday 05/16: Developed acute shortness of breath, with bilateral wheezing and crackles. Chest x-ray shows increased pulmonary vascular congestion. Large amount of ET tube secretions. Appears to be more comfortable with PC/AC settings 05/17: Breathing more comfortable today, on PCV. Still has trach secretions. Resume CPAP/TP today. Sputum culture ordered 05/18: On PS/CPAP today not tolerating ATP. CXR pending. Sputum culture 05/16 negative to date 05/19: tolerated TP for 12 hours yesterday. doing well this AM. on PSV this AM. 05/20: TP again for 12 hours yesterday. could likely go on TP x 24h as tolerated. GJ tube clogged this AM. GI notified, likely going to radiology for assistance. 05/21: TP all night. can continue as tolerated. GJ working this AM. Objective Vital Signs Date Time Temp Pulse Resp B/P Pulse Ox O2 Delivery O2 Flow Rate FiO2 05/21/16 06:00 78 05/21/16 04:00 98.6 18 111/61 99 05/20/16 19:54 T-piece 6.00 28 Intake and Output 05/20/16 05/20/16 05/21/16 08:00 16:00 00:00 Intake Total 0 ml 386 ml Output Total 400 ml 2500 ml 1150 ml Balance -400 ml -2500 ml -764 ml Result Diagram: 05/21/16 0504 05/21/16 0504 Imaging Critical care bedside ultrasound 04/27: Grossly preserved left ventricular function. Normal RV size and function. Small collapsible IVC which very strongly with respirations and is almost completely flat with inspiration. No pericardial effusion. Objective Remarks GENERAL: Middle-aged male, breathing more comfortably on trach collar. HEENT: Normocephalic. Atraumatic. NECK: Supple, orally intubated. CHEST: On trach collar, bilaterally clear. CARDIOVASCULAR: normal rate, regular rhythm. No murmurs. No JVD. ABDOMEN: Soft nontender, no guarding. MUSCULOSKELETAL: Trace peripheral edema. Warm, well perfused. NEUROLOGICAL: Alert awake, attempts to mouth words. Follows commands all 4 extremities. A/P Assessment and Plan Plan by systems: Neurologic: Alcohol abuse Metabolic encephalopathy Pain associated with acute pancreatitis - decrease scheduled po oxycodone 5mg for pain - d/c dilaudid as he has not needed breakthrough pain meds. - iv Tylenol 1gm q8h prn for pain or fever. Respiratory: Acute hypoxic respiratory failure ARDS COPD Tolerated TP overnight. continue 24h as tolerated. Wean FiO2 for goal SPO2 greater than 90% Nebs every 4 and every 2 when necessary --OOB to chair daily. walk if possible with PT. Cardiovascular: Sinus tachycardia-resolved SIRS response- resolving NSVT 2/3 most likely from hypomagnesemia SIRS likely 2/2 acute pancreatitis --Keep Mag >2, K>4 Renal: Acute kidney injury- improving. Hypernatremia Metabolic alkalosis Likely has a component of prerenal, but also likely from acute pancreatitis will attempt to d/c Hardin catheter today. --Nephrology following. vas cath removed 05/11. --decrease Bumex to 0.5 mg IV q12 -- decrease per tube free water 300 q6h. FEN/GI: Severe intravascular volume depletion- resolved. Severe acute pancreatitis Severe hypocalcemia TF restarted. G/J working properly. Off TPN for nutrition 05/07 - 05/14. GJ tube placed 05/11. Daily CMP, CBC Heme/ID: Leukocytosis Anemia secondary to acute blood loss and critical illness Likely reactive secondary to acute pancreatitis Stool for C. difficile negative (05/08) Urine, sputum, blood cultures. ABX per ID service. Daily CBC --s/p 2 units PRBC 05/11. stable hgb. ID - Leukocytosis with shift. Dr. Hercules ID following - Sputum 05/01 - Klebsiella, E. coli, Staph MSSA - Repeat sputum 05/16 negative - Continue Meropenem IV and Micafungin IV. Endocrine: Diabetes -- SSI, medium scale, every 6 hours Prophylaxis: GI Prophylaxis Protonix 40 mg IV daily 24 hours DVT Prophylaxis --SCDs Heparin 5000 every 8h Lines: 04/27 left subclavian triple-lumen catheter - discontinued. New central line placed right subclavian 05/07, d/c'd 05/11. left SC TLC placed 05/11, d/c'd 05/19. -- Sonia Hardin. will d/c today. Dakota Sanchez MD May 21, 2016 08:16
[2016-05-21] MEDS: POTASSIUM CHLOR 20 MEQ PREMIX 100 ML IV PRN (08:19)
[2016-05-21] MEDS: FAMOTIDINE 20 MG TAB NG SCH ×2 (08:19→19:25)
[2016-05-21] MEDS: SODIUM CHLORIDE 0.9% FLUSH 5 ML FLUSH IV FLUSH SCH ×2 (09:25→19:25)
[2016-05-21] MEDS: BUMETANIDE INJ 1 MG/4 ML VIAL IV PUSH SCH ×2 (09:28→17:09)
[2016-05-22] VITALS (14 sets, daily range): BP systolic 123–165; BP diastolic 71–83; PULSE 72–88; RESP 20–28; TEMP 99.1–99.7; O2SAT 96–100
[2016-05-22] MEDS: RESP: ALBUTEROL 2.5 MG/IPRATROPIUM 0.5 MG NEB (SCH) NEB ×7 (00:51→23:01)
[2016-05-22] MEDS: oxyCODONE HCL ORAL CONC 20 MG/ML SYRINGE NG SCH ×2 (03:30→09:13)
[2016-05-22] MEDS: CHLORHEXIDINE GLUCONATE 2 % 1 PACK (2 CLOTHS) TOP SCH (03:30)
[2016-05-22 05:25] LABS: HEMATOCRIT 29.1 % (39.0-51.0); MEAN CELL VOLUME 80.7 FL (80.0-100.0); PLATELET COUNT 366 TH/MM3 (150-450); RED BLOOD COUNT 3.61 MIL/MM3 (4.50-5.90); RED CELL DISTRIBUTION WIDTH 17.5 % (11.6-17.2); REVIEW FLAG FINAL
[2016-05-22] MEDS: FREE WATER G-TUBE SCH ×3 (06:00→21:07)
[2016-05-22] MEDS: METOCLOPRAMIDE HCL SYRUP 10 MG/10 ML UDC NG SCH ×3 (06:00→21:07)
[2016-05-22] MEDS: HEPARIN SODIUM - SQ 10,000 UNITS/ML VIAL SQ SCH ×3 (06:17→23:11)
[2016-05-22 06:19] LABS: BICARBONATE 25.9 MEQ/L (21.0-32.0); POTASSIUM 3.5 MEQ/L (3.5-5.1)
[2016-05-22] MEDS: CHLORHEXIDINE 0.12% (ORAL KIT) 15 ML CUP MT SCH ×2 (09:12→20:24)
[2016-05-22] MEDS: FAMOTIDINE 20 MG TAB NG SCH ×2 (09:13→20:24)
[2016-05-22] MEDS: BUMETANIDE INJ 1 MG/4 ML VIAL IV PUSH SCH ×2 (09:13→18:35)
[2016-05-22] MEDS: SODIUM CHLORIDE 0.9% FLUSH 5 ML FLUSH IV FLUSH SCH ×2 (09:13→20:25)
--- NOTE | 2016-05-22 10:44 | HHI.CCPN ---
Subjective Remarks/Hospital Course This is a 65-year-old male with history of COPD, strong alcohol abuse history, diabetes, questionable history of heart failure, coronary artery disease who initially presented to the emergency department 04/25 with abdominal pain and was found to have acute pancreatitis. He was noted to the hospital at that time. Over the subsequent 48 hours, he developed worsening hypoxia as well as an acute kidney injury. This was initially thought to be CHF exacerbation and volume overload. He was given diuretics without a good response. His creatinine has trended up to 6. Nephrology was consulted and are considering renal replacement therapy. Tonight throughout the night, the patient became more hypoxic and dyspneic with increasing oxygen requirement. He is transferred to the ICU for his acute hypoxic respiratory failure. The patient is nauseated and has vomited a few times. 04/28: Intubated for respiratory distress with hypoxemia, now with acceptable gas exchange. Tolerating dialysis, try to extubate shortly. 04/29: Abdomen much too distended for extubation. NG tube placed with Roman forceps. 04/30: Abdomen remains tensely distended. No peritoneal irritation. BS few. 05/01: Abdomen remains tensely distended. No peritoneal irritation. 05/02: Abdominal distention worse. Pain worse. Will get CT to look for perforation. 05/03: CT abdomen with rip-roaring inflammatory process involving the pancreas; much worse. Sputum with multiple organisms. Patient clinically more critically ill. 05/04: Will start TFs if OK with GI service. 05/05: Dobbhoff tube in stomach. Will try to advance to duodenum and avoid TPN if at all possible. 05/06: DHT not post-pyloric, will advance and get KUB in a.m. 05/07: Persistent low grade fever and leukocytosis. Ileus persists. Goal is to get intestinal motility restored, decompress abdomen, extubate, and transfer to son's area in [place] for long-term care. 05/08: Remains sedated, arousable, orally intubated on mechanical ventilation. 05/09: Sedated, arousable, orally intubated on mechanical ventilation. On TPN 05/10: Sedated, arousable, orally intubated on mechanical ventilation. Remains on TPN as Dobbhoff remains in stomach. Scheduled for percutaneous tracheostomy today. Awaiting G/J tube placement by GI. 05/11: plan for g/j today. getting 2 units prbc for hgb 6.9. s/p trach yesterday. 05/12: g/j yesterday. persistently febrile yesterday. wbc still elevated. Lipase 130. awaiting repeat CT abd/pelvis results. new line placed yesterday and old line discontinued. cultures pending. 05/13: Patient tolerating C Pap 10 over 5. Waking up easily, follows commands on upper and lower extremities. WBC count stable at 23, ID is following. CT abdomen pelvis yesterday shows severe peripancreatic inflammatory changes 05/14: Did not tolerate TP yesterday, developed nonsustained V. tach. Wakes up easily follows commands. WBC trending down, tolerating tube feeds. Off TPN. Magnesium 1.4 getting replaced 05/15: No acute events reported overnight, communicating, cooperative with physical therapy. Tolerated T piece several hours yesterday 05/16: Developed acute shortness of breath, with bilateral wheezing and crackles. Chest x-ray shows increased pulmonary vascular congestion. Large amount of ET tube secretions. Appears to be more comfortable with PC/AC settings 05/17: Breathing more comfortable today, on PCV. Still has trach secretions. Resume CPAP/TP today. Sputum culture ordered 05/18: On PS/CPAP today not tolerating ATP. CXR pending. Sputum culture 05/16 negative to date 05/19: tolerated TP for 12 hours yesterday. doing well this AM. on PSV this AM. 05/20: TP again for 12 hours yesterday. could likely go on TP x 24h as tolerated. GJ tube clogged this AM. GI notified, likely going to radiology for assistance. 05/21: TP all night. can continue as tolerated. GJ working this AM. 05/22: continued to do TP x 48h. No complaints this AM. Objective Vital Signs Date Time Temp Pulse Resp B/P Pulse Ox O2 Delivery O2 Flow Rate FiO2 05/22/16 08:16 99 T-piece 28 05/22/16 06:00 78 05/22/16 04:00 99.7 28 152/74 05/21/16 21:05 6.00 Intake and Output 05/21/16 05/21/16 05/22/16 08:00 16:00 00:00 Intake Total 766 ml 610 ml 640 ml Output Total 850 ml 1125 ml 450 ml Balance -84 ml -515 ml 190 ml Result Diagram: 05/22/1643305/22/16433 Imaging Critical care bedside ultrasound 04/27: Grossly preserved left ventricular function. Normal RV size and function. Small collapsible IVC which very strongly with respirations and is almost completely flat with inspiration. No pericardial effusion. Objective Remarks GENERAL: Middle-aged male, breathing more comfortably on trach collar. HEENT: Normocephalic. Atraumatic. NECK: Supple, orally intubated. CHEST: On trach collar, bilaterally clear. CARDIOVASCULAR: normal rate, regular rhythm. No murmurs. No JVD. ABDOMEN: Soft nontender, no guarding. MUSCULOSKELETAL: Trace peripheral edema. Warm, well perfused. NEUROLOGICAL: Alert awake, attempts to mouth words. Follows commands all 4 extremities. A/P Assessment and Plan Plan by systems: Neurologic: Alcohol abuse Metabolic encephalopathy Pain associated with acute pancreatitis - will transition oxycodone to 5mg po q4h prn - change Tylenol 1gm q8h prn for pain or fever to po from iv. Respiratory: Acute hypoxic respiratory failure ARDS COPD continues to tolerate TP. continue 24h as tolerated. Wean FiO2 for goal SPO2 greater than 90% Nebs every 4 and every 2 when necessary --OOB to chair daily. walk if possible with PT. Cardiovascular: Sinus tachycardia-resolved SIRS response- resolving NSVT 2/3 most likely from hypomagnesemia SIRS likely 2/2 acute pancreatitis --Keep Mag >2, K>4 Renal: Acute kidney injury- improving. Hypernatremia- resolved. Likely has a component of prerenal, but also likely from acute pancreatitis --Nephrology following. vas cath removed 05/11. --continue Bumex 0.5 mg IV q12 -- decrease per tube free water 200 q8h. FEN/GI: Severe intravascular volume depletion- resolved. Severe acute pancreatitis Severe hypocalcemia TF restarted. G/J working properly. Off TPN for nutrition 05/07 - 05/14. GJ tube placed 05/11. Daily CMP, CBC Heme/ID: Leukocytosis Anemia secondary to acute blood loss and critical illness Likely reactive secondary to acute pancreatitis Stool for C. difficile negative (05/08) Urine, sputum, blood cultures. ABX per ID service. Daily CBC --s/p 2 units PRBC 05/11. stable hgb. ID - Leukocytosis with shift. Dr. Hercules ID following - Sputum 05/01 - Klebsiella, E. coli, Staph MSSA - Repeat sputum 05/16 negative - Continue Meropenem IV and Micafungin IV. Endocrine: Diabetes -- SSI, medium scale, every 6 hours Prophylaxis: GI Prophylaxis Protonix 40 mg IV daily 24 hours DVT Prophylaxis --SCDs Heparin 5000 every 8h Lines: 04/27 left subclavian triple-lumen catheter - discontinued. New central line placed right subclavian 05/07, d/c'd 05/11. left SC TLC placed 05/11, d/c'd 05/19. -- PIV's. Hardin d/c'd 05/21. Dispo: I think he can safely be transferred to the floor with hospitalist and pulmonary following. working towards transition to LTAC vs. Rehab. Dakota Sanchez MD May 22, 2016 10:44
[2016-05-22] MEDS: oxyCODONE HCL ORAL CONC 20 MG/ML SYRINGE NG PRN ×2 (14:25→23:11)
--- NOTE | 2016-05-22 17:43 | MB ---
cc: Issac OSUNA DATE OF CONSULTATION: 05/22/2016. REASON FOR CONSULTATION: HISTORY OF PRESENT ILLNESS: Mr. Marti is a 65-year-old black male with history of COPD, tobacco abuse, alcohol abuse, diabetes, congestive heart failure and coronary artery disease who presented with abdominal pain and pancreatitis on April 24. He has had a complicated critical care course reviewed in the electronic medical record. He required ventilatory support within several days of admission as he continued to deteriorate and developed renal insufficiency as well and then an ileus. He eventually had a tracheostomy and within the last week has been able to be weaned off the ventilator and now has been off for about 72 hours. I am asked to continue to follow him as he is transitioning to the floor. The patient really cannot communicate at the present time due to the tracheostomy so this information is taken from his chart. PAST MEDICAL HISTORY: As noted above. 1. He has had pancreatitis in the past and continues to drink. 2. He has had a previous appendectomy. MEDICATIONS: Current medications reviewed in the EMR. ALLERGIES: Penicillin. FAMILY HISTORY: Positive for diabetes and hypertension and cancer. SOCIAL HISTORY: Continues to smoke. Continues to drink. But denies any type of drug use. REVIEW OF SYSTEMS: Review of systems is really unobtainable although the patient appears very comfortable throughout this exam. PHYSICAL EXAMINATION: VITAL SIGNS: Temperature 99 degrees, respirations 18, blood pressure 148/75, pulse is 80 and sat is 99% to 100% on 28 FIO2. HEAD, EYES, EARS, NOSE, THROAT: The sclerae are nonicteric. NECK: Tracheostomy in place. Occluding the tracheostomy, he is able to speak and cough clearly. CHEST: Chest is completely clear. No congestion. No wheezing. Regular rhythm. ABDOMEN: Abdomen soft. EXTREMITIES: No peripheral edema or cyanosis. IMAGING STUDIES: His last chest x-ray was on 04/17 with interval improvement in comparison to previous. Some basilar congestion with patchy infiltrates. LABORATORY DATA: Last sputum culture was 05/17 with normal pinky. White blood count remains elevated about 18,000. Electrolytes were normal. BUN and creatinine are normal. ASSESSMENT AND PLAN: Mr. Marti has had a stormy critical care course with pancreatitis, respiratory failure, underlying COPD and probably basilar pneumonia. He looks quite stable at the present time and actually can breathe quite freely through the tracheostomy or with the tracheostomy occluded. We will try [place] valve tomorrow to see if he can tolerate that, and if stable, consider removing the tracheostomy within the next few days. Further diagnostic and/or therapeutic range will depend on his ongoing clinical course and response to therapy. R. MD MEGHANA San/NOLAN /3:49 PM /5:39 PM
[2016-05-22] MEDS: hydrALAZINE HCL 20 MG/ML VIAL IV PUSH PRN (23:11)
--- NOTE | 2016-05-22 23:14 | RADRPT ---
EXAM DATE/TIME: 05/20/2016 16:50 [place] COMPARISON: No previous studies available for comparison. INDICATIONS : Patient is in need of an exchange of the existing transgastric G-J tube. MEDICAL HISTORY : History of acute pancreatitis, COPD, HTN, DM, seizure disorder, gout, CHF, AFIB. SURGICAL HISTORY : History of transgastric G-j placement, appendctomy, bone spur resection from right arm, colonoscopy w ith AVM in colon, hemorrhoids, polyps. ENCOUNTER: Initial ACUITY: 1 day PAIN SCORE: 0/10 FLUORO TIME: 14.8 minutes SEDATION TIME: 30 minutes CONTRAST: 35 cc Omnipaque (iohexol) 350 MEDICATION(S): 1.) 4 mg midazolam (Versed) IV 2.) 100 mcg Fentanyl (Sublimaze) IV DEVICE(S): 1.) 22 [place] Transgastric tube PROCEDURE : 1. Fluoroscopically guided gastrojejunostomy tube exchange. 2. Conscious sedation with continuous EKG and oximetry monitoring. The risks, benefits and alternatives to the procedure were explained and verbal and written consent w as obtained. The site was prepped in sterile fashion. Full sterile technique was used, including ca p, mask, sterile gloves and gown and a large sterile sheet. Hand hygiene and 2% chlorhexidine and/or betadine/alcohol prep was utilized per protocol for cutaneous antisepsis. The skin and subcutaneous tissues were infiltrated with local anesthetic solution. With fluoroscopic guidance a guidewire was passed through the previous gastrojejunostomy tube and a f resh tube was placed over the guidewire. The balloon was inflated with appropriate volume of saline. Injection of positive contrast demonstrates good position of the gastric and jejunal lumens of the tube. Conscious sedation was performed with the prescribed dosages and duration as above. The patient dewayne ated the procedure well and there were no complications. EKG and oximetry remained stable throughout the procedure. The patient was sent to post anesthesia recovery in stable condition. CONCLUSION: Uncomplicated gastrojejunostomy tube exchange as above. El Santiago MD on May 22, 2016 at 23:13 Board Certified Radiologist. This report was verified electronically.
[2016-05-23] VITALS (14 sets, daily range): BP systolic 125–166; BP diastolic 59–88; PULSE 74–102; RESP 14–24; TEMP 98.3–99.4; O2SAT 96–100
[2016-05-23] MEDS: CHLORHEXIDINE GLUCONATE 2 % 1 PACK (2 CLOTHS) TOP SCH (03:03)
[2016-05-23] MEDS: RESP: ALBUTEROL 2.5 MG/IPRATROPIUM 0.5 MG NEB (SCH) NEB ×6 (03:26→23:24)
[2016-05-23 05:36] LABS: HEMATOCRIT 27.8 % (39.0-51.0); MEAN CELL VOLUME 79.3 FL (80.0-100.0); MEAN CORPUSCULAR HEMOGLOBIN 25.5 PG (27.0-34.0); MEAN CORPUSCULAR HGB CONC 32.2 % (32.0-36.0); PLATELET COUNT 331 TH/MM3 (150-450); RED BLOOD COUNT 3.51 MIL/MM3 (4.50-5.90); RED CELL DISTRIBUTION WIDTH 17.6 % (11.6-17.2); REVIEW FLAG FINAL
[2016-05-23] MEDS: FREE WATER G-TUBE SCH ×3 (06:00→22:00)
[2016-05-23] MEDS: HEPARIN SODIUM - SQ 10,000 UNITS/ML VIAL SQ SCH ×3 (06:08→23:48)
[2016-05-23] MEDS: METOCLOPRAMIDE HCL SYRUP 10 MG/10 ML UDC NG SCH ×3 (06:08→22:00)
[2016-05-23] MEDS: hydrALAZINE HCL 20 MG/ML VIAL IV PUSH PRN ×2 (06:09→17:11)
[2016-05-23 06:12] LABS: BICARBONATE 27.5 MEQ/L (21.0-32.0)
[2016-05-23 06:19] LABS: POTASSIUM 2.9 MEQ/L (3.5-5.1)
[2016-05-23] MEDS: POTASSIUM CL 40 MEQ/30 ML LIQ UDC PO/TUBE PRN (06:59)
[2016-05-23] MEDS: POTASSIUM CHLOR 20 MEQ PREMIX 100 ML IV PRN ×2 (07:00→12:37)
[2016-05-23] MEDS: CHLORHEXIDINE 0.12% (ORAL KIT) 15 ML CUP MT SCH ×2 (08:00→20:33)
[2016-05-23] MEDS: SODIUM CHLORIDE 0.9% FLUSH 5 ML FLUSH IV FLUSH SCH ×2 (08:55→20:33)
[2016-05-23] MEDS: FAMOTIDINE 20 MG TAB NG SCH ×2 (08:55→20:33)
[2016-05-23] MEDS: BUMETANIDE INJ 1 MG/4 ML VIAL IV PUSH SCH ×2 (08:55→16:35)
[2016-05-23] MEDS: oxyCODONE HCL ORAL CONC 20 MG/ML SYRINGE NG PRN ×3 (10:45→23:46)
--- NOTE | 2016-05-23 18:09 | HHI.PR ---
Subjective Remarks Failed his swallow evaluation again, breathing remained stable, no tube feed residuals. Afebrile. Leukocytosis improved Objective Vitals Vital Signs Date Time Temp Pulse Resp B/P Pulse Ox O2 Delivery O2 Flow Rate FiO2 05/23/16 18:00 99 05/23/16 16:00 89 05/23/16 16:00 99.0 89 24 159/88 99 05/23/16 14:00 87 05/23/16 12:00 99.4 90 21 154/79 99 05/23/16 12:00 88 05/23/16 10:00 98 05/23/16 08:00 98.3 101 24 156/86 99 05/23/16 08:00 78 05/23/16 07:57 98 T-piece 6.00 28 05/23/16 07:00 99 T-Piece 28 05/23/16 06:00 74 05/23/16 04:00 83 05/23/16 04:00 99.0 83 23 166/81 98 05/23/16 02:00 102 05/23/16 00:00 99.4 88 14 125/62 100 05/23/16 00:00 88 05/22/16 22:00 80 05/22/16 20:00 99.1 76 25 149/71 100 05/22/16 20:00 100 T-Piece 28 05/22/16 20:00 76 05/22/16 19:52 98 T-piece 5.00 28 I/O 05/22/16 05/22/16 05/22/16 05/23/16 05/23/16 05/23/16 07:00 15:00 23:00 07:00 15:00 23:00 Intake Total 916 ml 574 ml 480 ml 520 ml 709 ml Output Total 450 ml 100 ml 350 ml 500 ml 900 ml Balance 466 ml 474 ml 130 ml 20 ml -191 ml IV Total 0 ml 0 ml 0 ml 0 ml 347 ml Tube Feeding 316 ml 314 ml 280 ml 260 ml 362 ml Other 600 ml 260 ml 200 ml 260 ml Output Urine Total 450 ml 100 ml 350 ml 500 ml 900 ml # Voids 2 3 2 # Bowel Movements 1 1 0 2 1 Result Diagram: 05/23/16 0452 05/23/16 045 Objective Remarks GENERAL: Middle-aged male, on trach collar. HEENT: Normocephalic. Atraumatic. NECK: Supple CHEST: On trach collar, bilaterally clear. CARDIOVASCULAR: normal rate, regular rhythm. No murmurs. No JVD. ABDOMEN: Soft nontender, no guarding. MUSCULOSKELETAL: Trace peripheral edema. Warm, well perfused. NEUROLOGICAL: Alert awake, attempts to mouth words. Follows commands all 4 extremities. A/P Assessment and Plan Alcohol abuse Metabolic encephalopathy Pain associated with acute pancreatitis -Continue oxycodone. Acute hypoxic respiratory failure ARDS COPD continues to tolerate TP. continue 24h as tolerated. Wean FiO2 for goal SPO2 greater than 90% Nebs every 4 and every 2 when necessary, out of that the check, pulmonary vocational rehab consultant. Sinus tachycardia-resolved NSVT 05/13 most likely from hypomagnesemia SIRS likely 2/2 acute pancreatitis, monitor electrolytes Acute kidney injury- improving. Hypernatremia- resolved. Likely has a component of prerenal, but also likely from acute pancreatitis --Nephrology following. vas cath removed 05/11. --continue Bumex 0.5 mg IV q12, recheck BMP tomorrow -- decrease per tube free water 200 q8h. Severe intravascular volume depletion- resolved. Severe acute pancreatitis Severe hypocalcemia TF restarted. G/J working properly. Off TPN for nutrition 05/07 - 05/14. GJ tube placed 05/11. Daily CMP, CBC Leukocytosis Anemia secondary to acute blood loss and critical illness Likely reactive secondary to acute pancreatitis Stool for C. difficile negative (05/08) Urine, sputum, blood cultures. ABX per ID service. Daily CBC --s/p 2 units PRBC 05/11. stable hgb. ID - Leukocytosis with shift. Dr. Hercules ID following - Sputum 05/01 - Klebsiella, E. coli, Staph MSSA - Repeat sputum 05/16 negative - Continue Meropenem IV and Micafungin IV. Hypokalemia-replaced on electrolyte protocol. Diabetes -- SSI, medium scale, every 6 hours Prophylaxis: GI Prophylaxis Protonix 40 mg IV daily 24 hours DVT Prophylaxis --SCDs Heparin 5000 every 8h Failed swallow evaluation again today, continue speech therapy. Fadia Celis MD May 23, 2016 18:09
[2016-05-24] VITALS (13 sets, daily range): BP systolic 125–192; BP diastolic 59–87; PULSE 64–101; RESP 20–24; TEMP 95.9–99.8; O2SAT 93–100
[2016-05-24] MEDS: RESP: ALBUTEROL 2.5 MG/IPRATROPIUM 0.5 MG NEB (SCH) NEB (03:43)
[2016-05-24] MEDS: CHLORHEXIDINE GLUCONATE 2 % 1 PACK (2 CLOTHS) TOP SCH (04:00)
[2016-05-24] MEDS: FREE WATER G-TUBE SCH ×3 (06:00→21:01)
[2016-05-24 06:05] LABS: HEMATOCRIT 28.1 % (39.0-51.0); MEAN CELL VOLUME 80.7 FL (80.0-100.0); MEAN CORPUSCULAR HEMOGLOBIN 25.8 PG (27.0-34.0); PLATELET COUNT 309 TH/MM3 (150-450); RED BLOOD COUNT 3.48 MIL/MM3 (4.50-5.90); RED CELL DISTRIBUTION WIDTH 18.1 % (11.6-17.2); REVIEW FLAG FINAL; WHITE BLOOD COUNT 17.7 TH/MM3 (4.0-11.0)
[2016-05-24 06:17] LABS: BICARBONATE 25.2 MEQ/L (21.0-32.0); POTASSIUM 3.3 MEQ/L (3.5-5.1)
[2016-05-24] MEDS: METOCLOPRAMIDE HCL SYRUP 10 MG/10 ML UDC NG SCH ×3 (06:24→21:00)
[2016-05-24] MEDS: RESP: ALBUTEROL 2.5 MG/IPRATROPIUM 0.5 MG NEB (PRN) INH (07:50)
[2016-05-24] MEDS: BUMETANIDE INJ 1 MG/4 ML VIAL IV PUSH SCH ×2 (08:05→17:56)
[2016-05-24] MEDS: HEPARIN SODIUM - SQ 10,000 UNITS/ML VIAL SQ SCH ×3 (08:05→21:00)
[2016-05-24] MEDS: SODIUM CHLORIDE 0.9% FLUSH 5 ML FLUSH IV FLUSH SCH ×2 (08:06→21:00)
[2016-05-24] MEDS: oxyCODONE HCL ORAL CONC 20 MG/ML SYRINGE NG PRN ×2 (08:06→20:52)
[2016-05-24] MEDS: CHLORHEXIDINE 0.12% (ORAL KIT) 15 ML CUP MT SCH ×2 (08:07→20:00)
[2016-05-24] MEDS: FAMOTIDINE 20 MG TAB NG SCH ×2 (08:07→21:00)
--- NOTE | 2016-05-24 14:50 | HHI.PR ---
Objective Vitals Vital Signs Date Time Temp Pulse Resp B/P Pulse Ox O2 Delivery O2 Flow Rate FiO2 05/24/16 14:00 85 05/24/16 12:00 98.4 87 20 138/74 96 05/24/16 12:00 87 05/24/16 10:00 86 05/24/16 08:00 82 05/24/16 08:00 97.7 82 21 157/84 93 05/24/16 07:50 98 T-piece 6.00 28 05/24/16 07:00 100 Trach Collar 28 05/24/16 06:00 84 05/24/16 04:00 90 05/24/16 04:00 98.4 90 22 131/68 100 05/24/16 02:00 88 05/24/16 00:46 17 05/24/16 00:00 98.2 101 23 125/59 99 05/24/16 00:00 90 05/23/16 22:00 90 05/23/16 20:09 96 T-piece 5.00 28 05/23/16 20:00 101 05/23/16 20:00 98.3 101 23 125/59 99 05/23/16 19:00 99 Trach Collar 28 05/23/16 18:00 99 05/23/16 16:00 89 05/23/16 16:00 99.0 89 24 159/88 99 I/O 05/23/16 05/23/16 05/23/16 05/24/16 05/24/16 05/24/16 07:00 15:00 23:00 07:00 15:00 23:00 Intake Total 520 ml 709 ml 490 ml 590 ml 518 ml Output Total 500 ml 900 ml 550 ml 275 ml Balance 20 ml -191 ml -60 ml 590 ml 243 ml IV Total 0 ml 347 ml 0 ml Tube Feeding 260 ml 362 ml 290 ml 390 ml 318 ml Other 260 ml 200 ml 200 ml 200 ml Output Urine Total 500 ml 900 ml 550 ml 275 ml # Voids 2 1 2 # Bowel Movements 2 1 0 1 1 Result Diagram: 05/24/1651405/24/16514 Objective Remarks GENERAL: Middle-aged male, on trach collar. HEENT: Normocephalic. Atraumatic. NECK: Supple CHEST: On trach collar, bilaterally clear. CARDIOVASCULAR: normal rate, regular rhythm. No murmurs. No JVD. ABDOMEN: Soft nontender, no guarding. MUSCULOSKELETAL: Trace peripheral edema. Warm, well perfused. NEUROLOGICAL: Alert awake, attempts to mouth words. Follows commands all 4 extremities. A/P Assessment and Plan Alcohol abuse Metabolic encephalopathy Pain associated with acute pancreatitis -Continue oxycodone. Acute hypoxic respiratory failure ARDS COPD continues to tolerate TP. continue 24h as tolerated. Wean FiO2 for goal SPO2 greater than 90% Nebs every 4 and every 2 when necessary, out of that the check, pulmonary jewelry consultant. Sinus tachycardia-resolved NSVT 05/13 most likely from hypomagnesemia SIRS likely 2/2 acute pancreatitis, monitor electrolytes Acute kidney injury- improving. Hypernatremia- resolved. Likely has a component of prerenal, but also likely from acute pancreatitis --Nephrology following. vas cath removed 05/11. --continue Bumex 0.5 mg IV q12, recheck BMP tomorrow -- decrease per tube free water 200 q8h. Severe intravascular volume depletion- resolved. Severe acute pancreatitis Severe hypocalcemia TF restarted. G/J working properly. Off TPN for nutrition 05/07 - 05/14. GJ tube placed 05/11. Daily CMP, CBC Leukocytosis Anemia secondary to acute blood loss and critical illness Likely reactive secondary to acute pancreatitis Stool for C. difficile negative (05/08) Urine, sputum, blood cultures. ABX per ID service. Daily CBC --s/p 2 units PRBC 05/11. stable hgb. ID - Leukocytosis with shift. Dr. Hercules ID following - Sputum 05/01 - Klebsiella, E. coli, Staph MSSA - Repeat sputum 05/16 negative - Continue Meropenem IV and Micafungin IV. Hypokalemia-replaced on electrolyte protocol. Diabetes -- SSI, medium scale, every 6 hours Prophylaxis: GI Prophylaxis Protonix 40 mg IV daily 24 hours DVT Prophylaxis --SCDs Heparin 5000 every 8h Failed swallow evaluation again today, continue speech therapy. Fadia Celis MD May 24, 2016 14:50
--- NOTE | 2016-05-24 15:09 | HHI.PR ---
Subjective Remarks f/u swallow, sob Shortness of breath stable, Stable, no abdominal pain. Passed swallow evaluation but had blue dye coming out all tracheostomy. Objective Vitals Vital Signs Date Time Temp Pulse Resp B/P Pulse Ox O2 Delivery O2 Flow Rate FiO2 05/24/16 14:00 85 05/24/16 12:00 98.4 87 20 138/74 96 05/24/16 12:00 87 05/24/16 10:00 86 05/24/16 08:00 82 05/24/16 08:00 97.7 82 21 157/84 93 05/24/16 07:50 98 T-piece 6.00 28 05/24/16 07:00 100 Trach Collar 28 05/24/16 06:00 84 05/24/16 04:00 90 05/24/16 04:00 98.4 90 22 131/68 100 05/24/16 02:00 88 05/24/16 00:46 17 05/24/16 00:00 98.2 101 23 125/59 99 05/24/16 00:00 90 05/23/16 22:00 90 05/23/16 20:09 96 T-piece 5.00 28 05/23/16 20:00 101 05/23/16 20:00 98.3 101 23 125/59 99 05/23/16 19:00 99 Trach Collar 28 05/23/16 18:00 99 05/23/16 16:00 89 05/23/16 16:00 99.0 89 24 159/88 99 I/O 05/23/16 05/23/16 05/23/16 05/24/16 05/24/16 05/24/16 07:00 15:00 23:00 07:00 15:00 23:00 Intake Total 520 ml 709 ml 490 ml 590 ml 518 ml Output Total 500 ml 900 ml 550 ml 275 ml Balance 20 ml -191 ml -60 ml 590 ml 243 ml IV Total 0 ml 347 ml 0 ml Tube Feeding 260 ml 362 ml 290 ml 390 ml 318 ml Other 260 ml 200 ml 200 ml 200 ml Output Urine Total 500 ml 900 ml 550 ml 275 ml # Voids 2 1 2 # Bowel Movements 2 1 0 1 1 Result Diagram: 05/24/1651405/24/16514 Objective Remarks GENERAL: Middle-aged male, on trach collar. HEENT: Normocephalic. Atraumatic. NECK: Supple CHEST: On trach collar, bilaterally clear. CARDIOVASCULAR: normal rate, regular rhythm. No murmurs. No JVD. ABDOMEN: Soft nontender, no guarding. MUSCULOSKELETAL: Trace peripheral edema. Warm, well perfused. NEUROLOGICAL: Alert awake, attempts to mouth words. Follows commands all 4 extremities. A/P Assessment and Plan Alcohol abuse Metabolic encephalopathy Pain associated with acute pancreatitis -Continue oxycodone. Acute hypoxic respiratory failure ARDS COPD continues to tolerate TP. continue 24h as tolerated. Wean FiO2 for goal SPO2 greater than 90% Nebs every 4 and every 2 when necessary,downgrade to #6 fenestrated, PMV per pulmo Sinus tachycardia-resolved NSVT 2/ most likely from hypomagnesemia SIRS likely 2/2 acute pancreatitis, monitor electrolytes Acute kidney injury- improving. Hypernatremia- resolved. Likely has a component of prerenal, but also likely from acute pancreatitis --Nephrology following. vas cath removed 05/11. --continue Bumex 0.5 mg IV q12, recheck BMP tomorrow -- decrease per tube free water 200 q8h. Severe intravascular volume depletion- resolved. Severe acute pancreatitis Severe hypocalcemia TF restarted. G/J working properly. Off TPN for nutrition 05/07 - 05/14. GJ tube placed 05/11. Daily CMP, CBC Leukocytosis Anemia secondary to acute blood loss and critical illness Likely reactive secondary to acute pancreatitis Stool for C. difficile negative (05/08) Urine, sputum, blood cultures. Daily CBC --s/p 2 units PRBC 05/11. stable hgb. - Sputum 05/01 - Klebsiella, E. coli, Staph MSSA - Repeat sputum 05/16 negative, finished Meropenem IV and Micafungin IV. Hypokalemia-replaced on electrolyte protocol. Diabetes -- SSI, medium scale, every 6 hours Prophylaxis: GI Prophylaxis Protonix 40 mg IV daily 24 hours DVT Prophylaxis --SCDs Heparin 5000 every 8h Passed swallow eval but dye came out of trach, f/u with speech therapy. Fadia Celis MD May 24, 2016 15:09 Fadia Celis MD May 24, 2016 15:09
[2016-05-25] VITALS (8 sets, daily range): BP systolic 132–169; BP diastolic 80–95; PULSE 80–98; RESP 20–24; TEMP 96.7–99.3; O2SAT 95–100
[2016-05-25] MEDS: oxyCODONE HCL ORAL CONC 20 MG/ML SYRINGE NG PRN ×5 (00:30→20:56)
[2016-05-25] MEDS: CHLORHEXIDINE GLUCONATE 2 % 1 PACK (2 CLOTHS) TOP SCH ×2 (03:48→22:45)
[2016-05-25 05:51] LABS: HEMATOCRIT 27.7 % (39.0-51.0); MEAN CELL VOLUME 80.4 FL (80.0-100.0); MEAN CORPUSCULAR HGB CONC 32.3 % (32.0-36.0); PLATELET COUNT 339 TH/MM3 (150-450); RED BLOOD COUNT 3.45 MIL/MM3 (4.50-5.90); RED CELL DISTRIBUTION WIDTH 18.7 % (11.6-17.2); REVIEW FLAG FINAL; WHITE BLOOD COUNT 18.4 TH/MM3 (4.0-11.0)
[2016-05-25] MEDS: FREE WATER G-TUBE SCH ×3 (06:00→20:55)
[2016-05-25] MEDS: HEPARIN SODIUM - SQ 10,000 UNITS/ML VIAL SQ SCH ×3 (06:11→22:43)
[2016-05-25] MEDS: METOCLOPRAMIDE HCL SYRUP 10 MG/10 ML UDC NG SCH ×3 (06:11→20:54)
[2016-05-25 06:20] LABS: BICARBONATE 26.1 MEQ/L (21.0-32.0); POTASSIUM 3.6 MEQ/L (3.5-5.1)
[2016-05-25] MEDS: CHLORHEXIDINE 0.12% (ORAL KIT) 15 ML CUP MT SCH ×2 (08:00→20:00)
[2016-05-25] MEDS: FAMOTIDINE 20 MG TAB NG SCH ×2 (09:41→20:54)
[2016-05-25] MEDS: BUMETANIDE INJ 1 MG/4 ML VIAL IV PUSH SCH ×2 (09:42→17:43)
[2016-05-25] MEDS: SODIUM CHLORIDE 0.9% FLUSH 5 ML FLUSH IV FLUSH SCH ×2 (09:42→20:54)
--- NOTE | 2016-05-25 14:30 | HHI.PR ---
Subjective Remarks No overnight events, PMV in place, no shortness of breath, no abdominal pain. Objective Vitals Vital Signs Date Time Temp Pulse Resp B/P Pulse Ox O2 Delivery O2 Flow Rate FiO2 05/25/16 14:07 97 21 05/25/16 12:00 98.7 80 21 152/80 100 05/25/16 10:34 98 T-piece 28 05/25/16 08:00 98.9 82 22 162/86 100 05/25/16 07:38 100 28 05/25/16 07:15 21 05/25/16 04:00 96.7 98 22 132/89 96 05/25/16 00:00 99.3 88 24 169/82 95 05/24/16 21:15 T-piece 28 05/24/16 20:50 T-Piece 6.00 28 05/24/16 20:00 95.9 64 24 192/80 96 05/24/16 18:36 95 T-piece 28 05/24/16 17:30 99.8 82 20 170/83 94 05/24/16 17:25 94 Trach Collar 28 05/24/16 16:00 92 05/24/16 16:00 98.2 92 24 165/87 98 I/O 05/24/16 05/24/16 05/24/16 05/25/16 05/25/16 05/25/16 07:00 15:00 23:00 07:00 15:00 23:00 Intake Total 590 ml 518 ml 233 ml 0 ml 386 ml Output Total 275 ml Balance 590 ml 243 ml 233 ml 0 ml 386 ml Intake Oral 0 ml 0 ml IV Total 0 ml 0 ml 0 ml Tube Feeding 390 ml 318 ml 233 ml 386 ml Other 200 ml 200 ml Output Urine Total 275 ml # Voids 1 2 0 2 # Bowel Movements 1 1 0 0 Result Diagram: 05/25/1653005/25/16530 Objective Remarks GENERAL: Middle-aged male, on trach collar. HEENT: Normocephalic. Atraumatic. NECK: Supple CHEST: On trach collar, bilaterally clear. CARDIOVASCULAR: normal rate, regular rhythm. No murmurs. No JVD. ABDOMEN: Soft nontender, no guarding. MUSCULOSKELETAL: Trace peripheral edema. Warm, well perfused. NEUROLOGICAL: Alert awake, attempts to mouth words. Follows commands all 4 extremities. A/P Assessment and Plan Alcohol abuse Metabolic encephalopathy Pain associated with acute pancreatitis -Continue oxycodone. Acute hypoxic respiratory failure ARDS COPD continues to tolerate TP. continue 24h as tolerated. Wean FiO2 for goal SPO2 greater than 90% Nebs every 4 and every 2 when necessary, tolerating #6 fenestrated and PMV Sinus tachycardia-resolved NSVT 05/13 most likely from hypomagnesemia SIRS likely 2/2 acute pancreatitis, monitor electrolytes Acute kidney injury- improving. Hypernatremia- resolved. Likely has a component of prerenal, but also likely from acute pancreatitis --Nephrology following. vas cath removed 05/11. --continue Bumex 0.5 mg IV q12, recheck BMP tomorrow -- decrease per tube free water 200 q8h. Severe intravascular volume depletion- resolved. Severe acute pancreatitis Severe hypocalcemia TF restarted. G/J working properly. Off TPN for nutrition 05/07 - 05/14. GJ tube placed 05/11. Daily CMP, CBC Leukocytosis Anemia secondary to acute blood loss and critical illness Likely reactive secondary to acute pancreatitis Stool for C. difficile negative (05/08) Urine, sputum, blood cultures. Daily CBC --s/p 2 units PRBC 05/11. stable hgb. - Sputum 05/01 - Klebsiella, E. coli, Staph MSSA - Repeat sputum 05/16 negative, finished Meropenem IV and Micafungin IV. Hypokalemia-replaced on electrolyte protocol. Diabetes -- SSI, medium scale, every 6 hours Prophylaxis: GI Prophylaxis Protonix 40 mg IV daily 24 hours DVT Prophylaxis --SCDs Heparin 5000 every 8h Follow-up speech eval. Fadia Celis MD May 25, 2016 14:30
[2016-05-25] MEDS: RESP: ALBUTEROL 2.5 MG/IPRATROPIUM 0.5 MG NEB (SCH) NEB (20:00)
[2016-05-26] VITALS (7 sets, daily range): BP systolic 142–174; BP diastolic 78–98; PULSE 65–88; RESP 18–20; TEMP 97.7–99.9; O2SAT 94–100
[2016-05-26] MEDS: oxyCODONE HCL ORAL CONC 20 MG/ML SYRINGE NG PRN ×5 (00:53→20:49)
[2016-05-26] MEDS: METOCLOPRAMIDE HCL SYRUP 10 MG/10 ML UDC NG SCH ×3 (04:42→20:48)
[2016-05-26] MEDS: FREE WATER G-TUBE SCH ×3 (04:42→22:00)
[2016-05-26 05:09] LABS: HEMATOCRIT 26.4 % (39.0-51.0); MEAN CELL VOLUME 80.3 FL (80.0-100.0); MEAN CORPUSCULAR HEMOGLOBIN 25.5 PG (27.0-34.0); MEAN CORPUSCULAR HGB CONC 31.8 % (32.0-36.0); PLATELET COUNT 283 TH/MM3 (150-450); RED BLOOD COUNT 3.28 MIL/MM3 (4.50-5.90); RED CELL DISTRIBUTION WIDTH 19.2 % (11.6-17.2); REVIEW FLAG FINAL; WHITE BLOOD COUNT 17.5 TH/MM3 (4.0-11.0)
[2016-05-26] MEDS: HEPARIN SODIUM - SQ 10,000 UNITS/ML VIAL SQ SCH ×4 (06:30→23:01)
[2016-05-26] MEDS: CHLORHEXIDINE 0.12% (ORAL KIT) 15 ML CUP MT SCH ×2 (08:00→20:00)
[2016-05-26] MEDS: RESP: ALBUTEROL 2.5 MG/IPRATROPIUM 0.5 MG NEB (SCH) NEB ×2 (08:00→20:28)
[2016-05-26] MEDS: BUMETANIDE INJ 1 MG/4 ML VIAL IV PUSH SCH (08:12)
[2016-05-26] MEDS: SODIUM CHLORIDE 0.9% FLUSH 5 ML FLUSH IV FLUSH SCH ×2 (08:12→20:48)
[2016-05-26] MEDS: FAMOTIDINE 20 MG TAB NG SCH ×2 (08:12→20:48)
--- NOTE | 2016-05-26 10:52 | HHI.PR ---
Subjective Remarks Follow-up for pancreatitis, shortness of breath. Denies any abdominal pain, no nausea or vomiting. Still nothing by mouth, possible capping of treatment today. No fever or chills. Denies any shortness of breath. No diarrhea. Objective Vitals Vital Signs Date Time Temp Pulse Resp B/P Pulse Ox O2 Delivery O2 Flow Rate FiO2 05/26/16 08:00 99.1 65 19 159/81 97 05/26/16 08:00 94 21 05/26/16 03:42 99.0 86 18 142/78 96 05/26/16 00:00 99.0 88 20 158/88 96 05/25/16 20:05 95 21 05/25/16 20:00 98.8 84 20 163/95 97 05/25/16 16:10 18 05/25/16 14:07 97 21 05/25/16 12:00 98.7 80 21 152/80 100 I/O 05/25/16 05/25/16 05/25/16 05/26/16 05/26/16 05/26/16 07:00 15:00 23:00 07:00 15:00 23:00 Intake Total 0 ml 386 ml 970 ml 736 ml 0 ml Output Total 250 ml 250 ml Balance 0 ml 386 ml 720 ml 486 ml 0 ml Intake Oral 0 ml 0 ml 0 ml 0 ml 0 ml IV Total 0 ml Tube Feeding 386 ml 570 ml 536 ml Tube Irrigant 200 ml Other 200 ml 200 ml Output Urine Total 250 ml 250 ml # Voids 2 2 1 # Bowel Movements 0 2 0 0 Result Diagram: 05/26/16 0350 05/26/16 0350 Objective Remarks GENERAL: Middle-aged male, on trach collar. HEENT: Normocephalic. Atraumatic. NECK: Supple, trach collar in place, PMV in place. CHEST: Decreased breath sounds bilaterally but symmetric. CARDIOVASCULAR: normal rate, regular rhythm. No murmurs. No JVD. ABDOMEN: Soft, nontender, no guarding. MUSCULOSKELETAL: Trace edema, NEUROLOGICAL: Alert awake, oriented 3. Follows commands all 4 extremities. A/P Assessment and Plan This is a 65-year-old male with history of alcohol abuse initially admitted with toxic metabolic encephalopathy and acute pancreatitis. Acute toxic metabolic encephalopathy-multifactorial, could be from alcohol abuse , respiratory failure. Resolved. Severe acute pancreatitis-Gen. surgery was on board, TPN 05/07 - 05/14. Presently off TPN, continue GJ tube placed 05/11/16. Continue swallow evaluation per speech therapy. Leukocytosis improving, pain control as needed. Acute hypoxic respiratory failure secondary to ARDS and COPD-on T piece, continue to wean, pulmonary following, decrease tracheostomy tube #6 Today, presently with PMV. Continue duo nebs. Sinus tachycardia, NSVT-resolved, likely secondary to SIRS/pancreatitis. Acute kidney injury-resolved. Likely prerenal. Nephrology was on board, continue Bumex, BMP stable. Decreased Bumex in the next few days, follow BMP, start potassium daily. Severe intravascular volume depletion- resolved. Anemia secondary to acute blood loss and critical illness-secondary to pancreatitis. -s/p 2 units PRBC 05/11. stable hgb. Hypokalemia-replaced on electrolyte protocol. Diabetes -- SSI, medium scale, every 6 hours Prophylaxis: GI Prophylaxis: Pepcid DVT Prophylaxis: Heparin Follow-up speech eval. Discharge Planning Case management following, discharged to rehabilitation, hopefully Fadia Zapata MD May 26, 2016 10:52
[2016-05-26] MEDS: BUMETANIDE 1 MG TAB PO SCH (16:44)
[2016-05-26] MEDS: RESP: ALBUTEROL 2.5 MG/IPRATROPIUM 0.5 MG NEB (PRN) INH (17:23)
[2016-05-27] VITALS: BP 137/76; PULSE 93; RESP 18; TEMP 99.5; O2SAT 94
[2016-05-27] MEDS: CHLORHEXIDINE GLUCONATE 2 % 1 PACK (2 CLOTHS) TOP SCH ×2 (01:43→20:32)
[2016-05-27] MEDS: oxyCODONE HCL ORAL CONC 20 MG/ML SYRINGE NG PRN ×4 (04:40→16:51)
[2016-05-27] MEDS: METOCLOPRAMIDE HCL SYRUP 10 MG/10 ML UDC NG SCH ×3 (05:46→20:33)
[2016-05-27] MEDS: FREE WATER G-TUBE SCH ×3 (05:47→22:00)
[2016-05-27 08:00] VITALS: BP 158/86; PULSE 78; RESP 19; TEMP 96.3; O2SAT 94
[2016-05-27] MEDS: RESP: ALBUTEROL 2.5 MG/IPRATROPIUM 0.5 MG NEB (SCH) NEB ×2 (08:00→19:48)
[2016-05-27 08:01] VITALS: O2SAT 94
[2016-05-27] MEDS: HEPARIN SODIUM - SQ 10,000 UNITS/ML VIAL SQ SCH ×3 (08:46→20:35)
[2016-05-27] MEDS: SODIUM CHLORIDE 0.9% FLUSH 5 ML FLUSH IV FLUSH SCH ×3 (08:46→20:33)
[2016-05-27] MEDS: CHLORHEXIDINE 0.12% (ORAL KIT) 15 ML CUP MT SCH ×2 (08:47→20:00)
[2016-05-27] MEDS: BUMETANIDE 1 MG TAB PO SCH ×2 (08:47→16:50)
[2016-05-27] MEDS: POTASSIUM CL 40 MEQ/30 ML LIQ UDC NG SCH (08:47)
[2016-05-27] MEDS: FAMOTIDINE 20 MG TAB NG SCH ×2 (08:47→20:33)
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
[2016-05-27 11:42] LABS: BICARBONATE 29.7 MEQ/L (21.0-32.0); POTASSIUM 3.4 MEQ/L (3.5-5.1)
[2016-05-27 12:00] VITALS: BP 150/76; PULSE 72; RESP 20; TEMP 98.2; O2SAT 97
--- NOTE | 2016-05-27 14:54 | HHI.PR ---
Subjective Remarks Follow-up dyspnea, pancreatitis. Patient has no complaints at this time. Wants to go home. Denies chest pain, dyspnea. Objective Vitals Vital Signs Date Time Temp Pulse Resp B/P Pulse Ox O2 Delivery O2 Flow Rate FiO2 05/27/16 12:00 98.2 72 20 150/76 97 05/27/16 08:47 Room Air 6.00 21 05/27/16 08:01 94 21 05/27/16 08:00 96.3 78 19 158/86 94 05/27/16 00:00 99.5 93 18 137/76 94 05/26/16 20:29 97 05/26/16 20:00 97.7 81 19 171/85 96 05/26/16 16:18 Room Air 05/26/16 16:00 99.9 82 19 157/89 95 I/O 05/26/16 05/26/16 05/26/16 05/27/16 05/27/16 05/27/16 07:00 15:00 23:00 07:00 15:00 23:00 Intake Total 736 ml 582 ml 0 ml 784 ml 391 ml Output Total 250 ml 800 ml 0 ml Balance 486 ml -218 ml 0 ml 784 ml 391 ml Intake Oral 0 ml 0 ml 0 ml 0 ml IV Total 0 ml 0 ml Tube Feeding 536 ml 382 ml 784 ml 191 ml Other 200 ml 200 ml 200 ml Output Urine Total 250 ml 800 ml 0 ml # Voids 1 1 # Bowel Movements 0 0 Result Diagram: 05/26/16 0350 05/27/16 1101 Imaging Last Impressions Modified Barium Swallow 05/27/16 0000 Signed Impressions: Service Date/Time: Friday, May 27, 2016 00:00 - CONCLUSION: Aspiration. Devyn Bhatti MD Tube Change 05/20/16 0000 Signed Impressions: Service Date/Time: Friday, May 20, 2016 16:50 - CONCLUSION: Uncomplicated gastrojejunostomy tube exchange as above. El Santiago MD Chest X-Ray 05/18/16 0000 Signed Impressions: Service Date/Time: Wednesday, May 18, 2016 15:00 - CONCLUSION: Interval improvement. Kermit Rollins MD FACR Gastrostomy Tube Placement 05/11/16 0000 Signed Impressions: Service Date/Time: Wednesday, May 11, 2016 13:49 - CONCLUSION: Uncomplicated gastrojejunostomy tube placement as above. El Santiago MD Chest CT 05/11/16 0000 Signed Impressions: Service Date/Time: May 14:52 - CONCLUSION: 1. Bilateral pulmonary opacity with left lower lobe atelectasis versus consolidation and patchy bilateral mid to upper lung atelectasis versus mild consolidation. 2. Small left pleural effusion. 3. Evidence of old granulomatous disease. Kyle Ludwig MD Abdomen/Pelvis CT 05/11/16 0000 Signed Impressions: Service Date/Time: May 14:52 - CONCLUSION: 1. Severe peripancreatic inflammatory changes again seen. No organized rounded fluid collections identified. 2. Left lower lobe atelectasis/consolidation and small pleural effusion unchanged. Kyle Ludwig MD Abdomen X-Ray 05/09/16 0900 Signed Impressions: Service Date/Time: Monday, May 09, 2016 09:02 - CONCLUSION: 2 tubes in the stomach one nasogastric one Dobbhoff both terminate in the distal body or antrum of the stomach Braden Larson MD Tube Placement X-Ray 05/05/16 0000 Signed Impressions: Service Date/Time: April 16:20 - CONCLUSION: Fluoroscopically guided nasogastric tube repositioning as above. Attempts were discontinued after multiple attempts with the tubing seen coiling within the patient's mouth region and proximal esophagus. Tessa Nichole MD Renal Ultrasound 04/25/16 0000 Signed Impressions: Service Date/Time: Monday, April 25, 2016 15:01 - CONCLUSION: No evidence of hydronephrosis. Tom Seals MD Objective Remarks General: No acute distress. Heart: Regular rate and rhythm. No murmur. Lungs: Clear to auscultation bilaterally. No wheezes, rales, or rhonchi. Breathing is nonlabored. Abdomen: Soft, nontender, nondistended. Extremities: No lower extremity edema. Psych: Alert and oriented. Procedures 04/27/16 arterial line placement 04/27/16 central line placement 04/27/16 endotracheal intubation 04/27/16 hemodialysis catheter placement 05/07/16 central line placement 05/10/16 percutaneous tracheostomy Urinary Catheter: No Vascular Central Line Catheter: No A/P Problem List: (1) Pancreatitis ICD Code: K85.90 Status: Acute (2) Respiratory failure ICD Code: J96.90 Status: Acute (3) COPD (chronic obstructive pulmonary disease) ICD Code: J44.9 Status: Chronic (4) Acute renal failure ICD Code: N17.9 Status: Acute (5) Abdominal pain ICD Code: R10.9 Status: Acute (6) Toxic metabolic encephalopathy ICD Code: G92 Status: Acute (7) Hypokalemia ICD Code: E87.6 Status: Acute Assessment and Plan 1. Acute toxic metabolic encephalopathy: Multifactorial. Secondary to alcohol abuse, respiratory failure. Resolved. 2. Severe acute pancreatitis: Appreciate general surgery management. GJ tube placed 05/11/16. Strict nothing by mouth per speech therapy. The patient failed barium swallow today. 3. Sinus tachycardia: Resolved. Likely secondary to SIRS/pancreatitis. 4. Acute kidney injury: Resolved. Likely prerenal. 5. Anemia: Secondary to acute blood loss critical illness: Status post transfusion of PRBCs, 2 units on 05/11/16. Hemoglobin is stable. 6. Hypokalemia: Supplement potassium. Recheck labs in the morning. 7. Diabetes mellitus: Monitor Accu-Cheks and cover with sliding scale insulin. 8. DVT prophylaxis: Heparin. 9. GI prophylaxis: Pepcid. 10. Dysphagia: Failed modified barium swallow. Strict NPO. Continue tube feeds with Vital 1.5, goal rate 50ml/hr. Now at 35ml/hr. Problem Qualifiers (1) Pancreatitis: Qualified Code: K85.20 - Alcohol-induced acute pancreatitis, unspecified complication status (2) Acute renal failure: Qualified Code: N17.0 - Acute renal failure with tubular necrosis (3) Abdominal pain: Qualified Code: R10.12 - Left upper quadrant pain Shin Stanford MD May 27, 2016 14:54
[2016-05-27] MEDS ORDERED: POTASSIUM CL 40 MEQ/30 ML LIQ UDC TUBE ONE (15:00)
[2016-05-27 16:00] VITALS: BP 131/77; PULSE 93; RESP 20; TEMP 96; O2SAT 96
[2016-05-27 19:48] VITALS: O2SAT 96
[2016-05-28] VITALS (7 sets, daily range): BP systolic 134–153; BP diastolic 70–75; PULSE 73–78; RESP 17–19; TEMP 96.9–98.8; O2SAT 93–97
--- NOTE | 2016-05-28 04:13 | RADRPT ---
EXAM DATE/TIME: 05/28/2016 03:31 [facility] COMPARISON: CT BRAIN W/O CONTRAST, January 14, 2016, 21:15. INDICATIONS : Trauma; fall. RADIATION DOSE: 38.19 CTDIvol (mGy) MEDICAL HISTORY : Cerebrovascular disease. Chronic obstructive pulmonary disease. Congestive heart failure.Hypertension , asthma, seizures, GERD, Diabetes SURGICAL HISTORY : Appendectomy. ENCOUNTER: [facility] ACUITY: 1 day PAIN SCALE: 4/10 LOCATION: cranial TECHNIQUE: Multiple contiguous axial images were obtained of the head. Using automated exposure control and adj ustment of the mA and/or kV according to patient size, radiation dose was kept as low as reasonably a chievable to obtain optimal diagnostic quality images. FINDINGS: CEREBRUM: The ventricles are normal for age. No evidence of midline shift, mass lesion, hemorrhage or acute in farction. No extra-axial fluid collections are seen. POSTERIOR FOSSA: The cerebellum and brainstem are intact. The 4th ventricle is midline. The cerebellopontine angle i s unremarkable. EXTRACRANIAL: The visualized portion of the orbits is intact. SKULL: The calvaria is intact. No evidence of skull fracture. Metallic foreign bodies are present in the brown bcutaneous tissues of the right side of the skull CONCLUSION: 1. No evidence of acute intracranial pathology. No masses are identified. El Santiago MD on May 28, 2016 at 4:10 Board Certified Radiologist. This report was verified electronically.
--- NOTE | 2016-05-28 04:16 | RADRPT ---
EXAM DATE/TIME: 05/28/2016 03:36 [facility] COMPARISON: No previous studies available for comparison. INDICATIONS : Trauma, fall. MEDICAL HISTORY : None. SURGICAL HISTORY : None. ENCOUNTER: Initial ACUITY: 1 day PAIN SCORE: 3/10 LOCATION: Right wrist. FINDINGS: Three view examination of the right wrist demonstrates no soft tissue swelling, dislocation, or fract ure. The carpal bones are in normal alignment. The joint spaces are maintained. Bony mineralizatio n is normal. CONCLUSION: 1. There is no evidence of acute fracture. El Santiago MD on May 28, 2016 at 4:14 Board Certified Radiologist. This report was verified electronically.
--- NOTE | 2016-05-28 04:30 | RADRPT ---
EXAM DATE/TIME: 05/28/2016 03:56 [facility] COMPARISON: CHEST SINGLE AP, May 18, 2016, 15:00. INDICATIONS : Trauma, fall. MEDICAL HISTORY : None. SURGICAL HISTORY : None. ENCOUNTER: Initial ACUITY: 1 day PAIN SCORE: 4/10 LOCATION: Left chest FINDINGS: The cardiac silhouette is enlarged in transverse diameter. There is prominence of the central pulmona ry vasculature with indistinct vascular margins compatible with vascular congestion but no evidence o f overt failure. Left basilar atelectasis and effusion has resolved. There is no evidence of acute fr acture. CONCLUSION: 1. Cardiomegaly and findings of vascular congestion without overt failure. 2. Resolution of the previously seen left basilar atelectasis and left effusion 3. There is no evidence of acute fracture. El Santiago MD on May 28, 2016 at 4:27 Board Certified Radiologist. This report was verified electronically.
--- NOTE | 2016-05-28 04:31 | RADRPT ---
EXAM DATE/TIME: 05/28/2016 04:03 [facility] COMPARISON: No previous studies available for comparison. INDICATIONS : Trauma, fall. MEDICAL HISTORY : None. SURGICAL HISTORY : None. ENCOUNTER: Initial ACUITY: 1 day PAIN SCORE: 0/10 LOCATION: Right shoulder. FINDINGS: There is no evidence of acute fracture. Bony mineralization is normal. There is mild osteoarthritis i nvolving the acromioclavicular joint. There is osteoarthritis involving the glenohumeral joint. CONCLUSION: 1. Osteoarthritis as above without fracture El Santiago MD on May 28, 2016 at 4:29 Board Certified Radiologist. This report was verified electronically.
--- NOTE | 2016-05-28 04:33 | RADRPT ---
EXAM DATE/TIME: 05/28/2016 04:09 [facility] COMPARISON: No previous studies available for comparison. INDICATIONS : Trauma, fall. MEDICAL HISTORY : None. SURGICAL HISTORY : None. ENCOUNTER: Initial ACUITY: 1 day PAIN SCORE: 5/10 LOCATION: Right elbow. FINDINGS: There is no evidence of acute fracture. Bony mineralization is normal. There is no evidence of joint effusion. There is heterotopic ossification at the insertion of the triceps tendon characteristic of calcific tendinitis CONCLUSION: 1. There is no evidence of acute fracture. 2. Calcific tendinitis El Santiago MD on May 28, 2016 at 4:31 Board Certified Radiologist. This report was verified electronically.
[2016-05-28] MEDS: HEPARIN SODIUM - SQ 10,000 UNITS/ML VIAL SQ SCH ×3 (05:46→22:00)
[2016-05-28] MEDS: METOCLOPRAMIDE HCL SYRUP 10 MG/10 ML UDC NG SCH ×3 (05:46→21:53)
[2016-05-28] MEDS: FREE WATER G-TUBE SCH ×3 (05:52→21:56)
[2016-05-28] MEDS: RESP: ALBUTEROL 2.5 MG/IPRATROPIUM 0.5 MG NEB (SCH) NEB ×2 (07:46→20:00)
[2016-05-28] MEDS: BUMETANIDE 1 MG TAB PO SCH ×2 (08:58→17:18)
[2016-05-28] MEDS: POTASSIUM CL 40 MEQ/30 ML LIQ UDC NG SCH (08:58)
[2016-05-28] MEDS: SODIUM CHLORIDE 0.9% FLUSH 5 ML FLUSH IV FLUSH SCH ×2 (08:58→21:54)
[2016-05-28] MEDS: FAMOTIDINE 20 MG TAB NG SCH ×2 (08:58→21:54)
[2016-05-28] MEDS: CHLORHEXIDINE 0.12% (ORAL KIT) 15 ML CUP MT SCH ×2 (09:00→20:00)
[2016-05-28] MEDS: oxyCODONE HCL ORAL CONC 20 MG/ML SYRINGE NG PRN ×3 (09:10→22:02)
--- NOTE | 2016-05-28 10:24 | HHI.PR ---
Subjective Remarks Follow up dysphagia. Patient has no complaints at this time. He apparently fell overnight and has some left rib cage pain. X-rays were negative. Objective Vitals Vital Signs Date Time Temp Pulse Resp B/P Pulse Ox O2 Delivery O2 Flow Rate FiO2 05/28/16 08:00 98.2 77 18 147/70 93 05/28/16 07:48 97 21 05/28/16 04:00 98.3 78 19 150/72 97 05/28/16 00:00 97.3 74 17 153/74 95 05/27/16 19:48 96 21 05/27/16 16:00 96.0 93 20 131/77 96 05/27/16 12:00 98.2 72 20 150/76 97 I/O 05/27/16 05/27/16 05/27/16 05/28/16 05/28/16 05/28/16 07:00 15:00 23:00 07:00 15:00 23:00 Intake Total 784 ml 391 ml 200 ml 525 ml Output Total 0 ml 200 ml 150 ml Balance 784 ml 391 ml 0 ml 375 ml Intake Oral 0 ml 0 ml 0 ml IV Total 0 ml 525 ml Tube Feeding 784 ml 191 ml 200 ml Other 200 ml Output Urine Total 0 ml 200 ml 150 ml # Voids 5 1 3 # Bowel Movements 3 Result Diagram: 05/26/16 0350 05/27/16 1101 Imaging Last Impressions Wrist X-Ray 05/28/16 0000 Signed Impressions: Service Date/Time: Saturday, May 28, 2016 03:36 - CONCLUSION: 1. There is no evidence of acute fracture. El Santiago MD Shoulder X-Ray 05/28/16 0000 Signed Impressions: Service Date/Time: Saturday, May 28, 2016 04:03 - CONCLUSION: 1. Osteoarthritis as above without fracture El Santiago MD Ribs X-Ray 05/28/16 0000 Signed Impressions: Service Date/Time: Saturday, May 28, 2016 03:56 - CONCLUSION: 1. Cardiomegaly and findings of vascular congestion without overt failure. 2. Resolution of the previously seen left basilar atelectasis and left effusion 3. There is no evidence of acute fracture. El Santiago MD Head CT 05/28/16 0000 Signed Impressions: Service Date/Time: Saturday, May 28, 2016 03:31 - CONCLUSION: 1. No evidence of acute intracranial pathology. No masses are identified. El Santiago MD Elbow X-Ray 05/28/16 0000 Signed Impressions: Service Date/Time: Saturday, May 28, 2016 04:09 - CONCLUSION: 1. There is no evidence of acute fracture. 2. Calcific tendinitis El Santiago MD Modified Barium Swallow 05/27/16 0000 Signed Impressions: Service Date/Time: Friday, May 27, 2016 00:00 - CONCLUSION: Aspiration. Devyn Bhatti MD Tube Change 05/20/16 0000 Signed Impressions: Service Date/Time: Friday, May 20, 2016 16:50 - CONCLUSION: Uncomplicated gastrojejunostomy tube exchange as above. El Santiago MD Chest X-Ray 05/18/16 0000 Signed Impressions: Service Date/Time: Wednesday, May 18, 2016 15:00 - CONCLUSION: Interval improvement. Kermit Rollins MD FACR Gastrostomy Tube Placement 05/11/16 0000 Signed Impressions: Service Date/Time: Wednesday, May 11, 2016 13:49 - CONCLUSION: Uncomplicated gastrojejunostomy tube placement as above. El Santiago MD Chest CT 05/11/16 0000 Signed Impressions: Service Date/Time: May 14:52 - CONCLUSION: 1. Bilateral pulmonary opacity with left lower lobe atelectasis versus consolidation and patchy bilateral mid to upper lung atelectasis versus mild consolidation. 2. Small left pleural effusion. 3. Evidence of old granulomatous disease. Kyle Ludwig MD Abdomen/Pelvis CT 05/11/16 0000 Signed Impressions: Service Date/Time: May 14:52 - CONCLUSION: 1. Severe peripancreatic inflammatory changes again seen. No organized rounded fluid collections identified. 2. Left lower lobe atelectasis/consolidation and small pleural effusion unchanged. Kyle Ludwig MD Abdomen X-Ray 05/09/16 0900 Signed Impressions: Service Date/Time: Monday, May 09, 2016 09:02 - CONCLUSION: 2 tubes in the stomach one nasogastric one Dobbhoff both terminate in the distal body or antrum of the stomach Braden Larson MD Tube Placement X-Ray 05/05/16 0000 Signed Impressions: Service Date/Time: April 16:20 - CONCLUSION: Fluoroscopically guided nasogastric tube repositioning as above. Attempts were discontinued after multiple attempts with the tubing seen coiling within the patient's mouth region and proximal esophagus. Tessa Nichole MD Renal Ultrasound 04/25/16 0000 Signed Impressions: Service Date/Time: Monday, April 25, 2016 15:01 - CONCLUSION: No evidence of hydronephrosis. Tom Seals MD Objective Remarks General: No acute distress. Heart: Regular rate and rhythm. No murmur. Lungs: Clear to auscultation bilaterally. No wheezes, rales, or rhonchi. Breathing is nonlabored. Abdomen: Soft, nontender, nondistended. Extremities: No lower extremity edema. No calf tenderness. Psych: Alert and oriented. Procedures 04/27/16 arterial line placement 04/27/16 central line placement 04/27/16 endotracheal intubation 04/27/16 hemodialysis catheter placement 05/07/16 central line placement 05/10/16 percutaneous tracheostomy Urinary Catheter: No Vascular Central Line Catheter: No A/P Problem List: (1) Pancreatitis ICD Code: K85.90 Status: Acute (2) Respiratory failure ICD Code: J96.90 Status: Acute (3) COPD (chronic obstructive pulmonary disease) ICD Code: J44.9 Status: Chronic (4) Acute renal failure ICD Code: N17.9 Status: Acute (5) Abdominal pain ICD Code: R10.9 Status: Acute (6) Toxic metabolic encephalopathy ICD Code: G92 Status: Acute (7) Hypokalemia ICD Code: E87.6 Status: Acute Assessment and Plan 1. Acute toxic metabolic encephalopathy: Multifactorial. Secondary to alcohol abuse, respiratory failure. Resolved. 2. Severe acute pancreatitis: Appreciate general surgery management. GJ tube placed 05/11/16. Strict nothing by mouth per speech therapy. The patient failed barium swallow. 3. Sinus tachycardia: Resolved. Likely secondary to SIRS/pancreatitis. 4. Acute kidney injury: Resolved. Likely prerenal. 5. Anemia: Secondary to acute blood loss critical illness: Status post transfusion of PRBCs, 2 units on 05/11/16. Labs are pending today. 6. Hypokalemia: Supplement potassium. Recheck labs in the morning. 7. Diabetes mellitus: Monitor Accu-Cheks and cover with sliding scale insulin. 8. DVT prophylaxis: Heparin. 9. GI prophylaxis: Pepcid. 10. Dysphagia: Failed modified barium swallow. Strict NPO. Appreciate dietary recommendations. Continue tube feeds with Jevity 1.5, goal rate 60ml/hr. Now at 50ml/hr. Discharge Planning Awaiting labs. If labs are acceptable, we'll plan for discharge to inpatient rehabilitation once arrangements are made by case management. Problem Qualifiers (1) Pancreatitis: Qualified Code: K85.20 - Alcohol-induced acute pancreatitis, unspecified complication status (2) Acute renal failure: Qualified Code: N17.0 - Acute renal failure with tubular necrosis (3) Abdominal pain: Qualified Code: R10.12 - Left upper quadrant pain Shin Stanford MD May 28, 2016 10:24
[2016-05-28 12:45] LABS: AUTOMATED NEUTROPHIL # 10.5 TH/MM3 (1.8-7.7); BASOPHIL # 0.1 TH/MM3 (0-0.2); BASOPHIL % 0.5 % (0.0-2.0); EOSINOPHIL # 0.5 TH/MM3 (0-0.4); EOSINOPHIL % 3.1 % (0.0-4.0); HEMO FLAGS DIFF FINAL; LYMPH % 14.6 % (9.0-44.0); LYMPHOCYTE # 2.2 TH/MM3 (1.0-4.8); MEAN CELL VOLUME 81.3 FL (80.0-100.0); MEAN CORPUSCULAR HEMOGLOBIN 25.8 PG (27.0-34.0); MEAN CORPUSCULAR HGB CONC 31.8 % (32.0-36.0); MONO % 12.8 % (0.0-8.0); PLATELET COUNT 308 TH/MM3 (150-450); RED BLOOD COUNT 3.69 MIL/MM3 (4.50-5.90); RED CELL DISTRIBUTION WIDTH 18.9 % (11.6-17.2); WHITE BLOOD COUNT 15.1 TH/MM3 (4.0-11.0)
[2016-05-28 13:00] LABS: BICARBONATE 30.2 MEQ/L (21.0-32.0); POTASSIUM 3.7 MEQ/L (3.5-5.1)
[2016-05-29] VITALS (7 sets, daily range): BP systolic 128–158; BP diastolic 70–79; PULSE 72–84; RESP 16–18; TEMP 96.9–98.8; O2SAT 94–99
[2016-05-29] MEDS: CHLORHEXIDINE GLUCONATE 2 % 1 PACK (2 CLOTHS) TOP SCH (03:38)
[2016-05-29] MEDS: METOCLOPRAMIDE HCL SYRUP 10 MG/10 ML UDC NG SCH ×3 (04:40→22:14)
[2016-05-29] MEDS: oxyCODONE HCL ORAL CONC 20 MG/ML SYRINGE NG PRN ×4 (04:41→22:14)
[2016-05-29] MEDS: FREE WATER G-TUBE SCH ×3 (04:42→20:38)
[2016-05-29] MEDS: HEPARIN SODIUM - SQ 10,000 UNITS/ML VIAL SQ SCH ×4 (04:43→22:15)
[2016-05-29] MEDS: POTASSIUM CL 40 MEQ/30 ML LIQ UDC NG SCH (09:17)
[2016-05-29] MEDS: BUMETANIDE 1 MG TAB PO SCH ×2 (09:17→17:57)
[2016-05-29] MEDS: FAMOTIDINE 20 MG TAB NG SCH ×2 (09:17→20:34)
[2016-05-29] MEDS: SODIUM CHLORIDE 0.9% FLUSH 5 ML FLUSH IV FLUSH SCH ×2 (09:26→20:37)
[2016-05-29] MEDS: CHLORHEXIDINE 0.12% (ORAL KIT) 15 ML CUP MT SCH ×2 (09:26→20:37)
--- NOTE | 2016-05-29 14:17 | HHI.PR ---
Subjective Remarks Follow up dysphagia. No complaints at this time. Tolerating tube feeds. Objective Vitals Vital Signs Date Time Temp Pulse Resp B/P Pulse Ox O2 Delivery O2 Flow Rate FiO2 05/29/16 12:00 98.2 72 17 131/70 95 05/29/16 08:28 94 21 05/29/16 08:00 98.4 76 18 134/76 95 05/29/16 00:00 98.7 73 18 136/71 94 05/28/16 20:00 98.8 78 18 138/72 93 05/28/16 16:00 96.9 75 17 134/73 95 I/O 05/28/16 05/28/16 05/28/16 05/29/16 05/29/16 05/29/16 07:00 15:00 23:00 07:00 15:00 23:00 Intake Total 525 ml 0 ml 0 ml 0 ml Output Total 150 ml 150 ml 200 ml Balance 375 ml -150 ml -200 ml 0 ml Intake Oral 0 ml 0 ml 0 ml 0 ml IV Total 525 ml Output Urine Total 150 ml 150 ml 200 ml # Voids 3 1 1 # Bowel Movements 0 1 Result Diagram: 05/28/16 1227 05/28/16 1227 Imaging Last Impressions Wrist X-Ray 05/28/16 0000 Signed Impressions: Service Date/Time: Saturday, May 28, 2016 03:36 - CONCLUSION: 1. There is no evidence of acute fracture. El Santiago MD Shoulder X-Ray 05/28/16 0000 Signed Impressions: Service Date/Time: Saturday, May 28, 2016 04:03 - CONCLUSION: 1. Osteoarthritis as above without fracture El Santiago MD Ribs X-Ray 05/28/16 0000 Signed Impressions: Service Date/Time: Saturday, May 28, 2016 03:56 - CONCLUSION: 1. Cardiomegaly and findings of vascular congestion without overt failure. 2. Resolution of the previously seen left basilar atelectasis and left effusion 3. There is no evidence of acute fracture. El Santiago MD Head CT 05/28/16 0000 Signed Impressions: Service Date/Time: Saturday, May 28, 2016 03:31 - CONCLUSION: 1. No evidence of acute intracranial pathology. No masses are identified. El Santiago MD Elbow X-Ray 05/28/16 0000 Signed Impressions: Service Date/Time: Saturday, May 28, 2016 04:09 - CONCLUSION: 1. There is no evidence of acute fracture. 2. Calcific tendinitis El Santiago MD Modified Barium Swallow 05/27/16 0000 Signed Impressions: Service Date/Time: Friday, May 27, 2016 00:00 - CONCLUSION: Aspiration. Devyn Bhatti MD Tube Change 05/20/16 0000 Signed Impressions: Service Date/Time: Friday, May 20, 2016 16:50 - CONCLUSION: Uncomplicated gastrojejunostomy tube exchange as above. El Santiago MD Chest X-Ray 05/18/16 0000 Signed Impressions: Service Date/Time: Wednesday, May 18, 2016 15:00 - CONCLUSION: Interval improvement. Kermit Rollins MD FACR Gastrostomy Tube Placement 05/11/16 0000 Signed Impressions: Service Date/Time: Wednesday, May 11, 2016 13:49 - CONCLUSION: Uncomplicated gastrojejunostomy tube placement as above. El Santiago MD Chest CT 05/11/16 0000 Signed Impressions: Service Date/Time: May 14:52 - CONCLUSION: 1. Bilateral pulmonary opacity with left lower lobe atelectasis versus consolidation and patchy bilateral mid to upper lung atelectasis versus mild consolidation. 2. Small left pleural effusion. 3. Evidence of old granulomatous disease. Kyle Ludwig MD Abdomen/Pelvis CT 05/11/16 0000 Signed Impressions: Service Date/Time: May 14:52 - CONCLUSION: 1. Severe peripancreatic inflammatory changes again seen. No organized rounded fluid collections identified. 2. Left lower lobe atelectasis/consolidation and small pleural effusion unchanged. Kyle Ludwig MD Abdomen X-Ray 05/09/16 0900 Signed Impressions: Service Date/Time: Monday, May 09, 2016 09:02 - CONCLUSION: 2 tubes in the stomach one nasogastric one Dobbhoff both terminate in the distal body or antrum of the stomach Braden Larson MD Tube Placement X-Ray 05/05/16 0000 Signed Impressions: Service Date/Time: April 16:20 - CONCLUSION: Fluoroscopically guided nasogastric tube repositioning as above. Attempts were discontinued after multiple attempts with the tubing seen coiling within the patient's mouth region and proximal esophagus. Tessa Nichole MD Renal Ultrasound 04/25/16 0000 Signed Impressions: Service Date/Time: Monday, April 25, 2016 15:01 - CONCLUSION: No evidence of hydronephrosis. Tom Seals MD Objective Remarks General: No acute distress. Heart: Regular rate and rhythm. No murmur. Lungs: Clear to auscultation bilaterally. No wheezes, rales, or rhonchi. Breathing is nonlabored. Abdomen: Soft, nontender, nondistended. Extremities: No lower extremity edema. No calf tenderness. Psych: Alert and oriented. Procedures 04/27/16 arterial line placement 04/27/16 central line placement 04/27/16 endotracheal intubation 04/27/16 hemodialysis catheter placement 05/07/16 central line placement 05/10/16 percutaneous tracheostomy Urinary Catheter: No Vascular Central Line Catheter: No A/P Problem List: (1) Pancreatitis ICD Code: K85.90 Status: Acute (2) Respiratory failure ICD Code: J96.90 Status: Acute (3) COPD (chronic obstructive pulmonary disease) ICD Code: J44.9 Status: Chronic (4) Acute renal failure ICD Code: N17.9 Status: Acute (5) Abdominal pain ICD Code: R10.9 Status: Acute (6) Toxic metabolic encephalopathy ICD Code: G92 Status: Acute (7) Hypokalemia ICD Code: E87.6 Status: Acute Assessment and Plan Reviewed/updated 05/29/16. No change. Awaiting inpatient rehabilitation authorization. 1. Acute toxic metabolic encephalopathy: Multifactorial. Secondary to alcohol abuse, respiratory failure. Resolved. 2. Severe acute pancreatitis: Appreciate general surgery management. GJ tube placed 05/11/16. Strict nothing by mouth per speech therapy. The patient failed barium swallow. 3. Sinus tachycardia: Resolved. Likely secondary to SIRS/pancreatitis. 4. Acute kidney injury: Resolved. Likely prerenal. 5. Anemia: Secondary to acute blood loss critical illness: Status post transfusion of PRBCs, 2 units on 05/11/16. Labs are pending today. 6. Hypokalemia: Supplement potassium. Recheck labs in the morning. 7. Diabetes mellitus: Monitor Accu-Cheks and cover with sliding scale insulin. 8. DVT prophylaxis: Heparin. 9. GI prophylaxis: Pepcid. 10. Dysphagia: Failed modified barium swallow. Strict NPO. Appreciate dietary recommendations. Continue tube feeds with Jevity 1.5, goal rate 60ml/hr. Now at 50ml/hr. Discharge Planning Plan for discharge to inpatient rehabilitation once arrangements are made by case management. Will need insurance authorization, which cannot happen until tomorrow at the earliest. Problem Qualifiers (1) Pancreatitis: Qualified Code: K85.20 - Alcohol-induced acute pancreatitis, unspecified complication status (2) Acute renal failure: Qualified Code: N17.0 - Acute renal failure with tubular necrosis (3) Abdominal pain: Qualified Code: R10.12 - Left upper quadrant pain Shin Stanford MD May 29, 2016 14:16
[2016-05-29] MEDS ORDERED: diphenhydrAMINE HCL 25 MG CAP PO PRN (15:00)
[2016-05-29] MEDS: RESP: ALBUTEROL 2.5 MG/IPRATROPIUM 0.5 MG NEB (SCH) NEB (19:49)
[2016-05-30] VITALS (7 sets, daily range): BP systolic 130–165; BP diastolic 65–76; PULSE 63–87; RESP 14–20; TEMP 96.8–98.2; O2SAT 93–97
[2016-05-30] MEDS: oxyCODONE HCL ORAL CONC 20 MG/ML SYRINGE NG PRN ×3 (02:08→20:44)
[2016-05-30] MEDS: CHLORHEXIDINE GLUCONATE 2 % 1 PACK (2 CLOTHS) TOP SCH ×2 (04:00→22:52)
[2016-05-30] MEDS: METOCLOPRAMIDE HCL SYRUP 10 MG/10 ML UDC NG SCH ×3 (06:14→22:00)
[2016-05-30] MEDS: FREE WATER G-TUBE SCH ×3 (06:14→22:00)
[2016-05-30] MEDS: CHLORHEXIDINE 0.12% (ORAL KIT) 15 ML CUP MT SCH ×2 (08:00→20:00)
--- NOTE | 2016-05-30 08:15 | HHI.PR ---
Subjective Remarks Follow up dysphagia. No complaints at this time. Tolerating tube feeds. Denies abdominal pain. Objective Vitals Vital Signs Date Time Temp Pulse Resp B/P Pulse Ox O2 Delivery O2 Flow Rate FiO2 05/30/16 03:08 16 05/30/16 00:00 97.0 87 18 140/66 95 05/29/16 20:00 98.8 84 18 158/73 99 05/29/16 19:50 96 05/29/16 16:00 96.9 73 16 128/79 96 05/29/16 12:00 98.2 72 17 131/70 95 05/29/16 08:28 94 21 I/O 05/29/16 05/29/16 05/29/16 05/30/16 05/30/16 05/30/16 07:00 15:00 23:00 07:00 15:00 23:00 Intake Total 0 ml 0 ml 600 ml 0 ml Output Total 400 ml 200 ml 125 ml Balance 0 ml -400 ml 400 ml -125 ml Intake Oral 0 ml 0 ml 0 ml 0 ml Tube Irrigant 600 ml Output Urine Total 400 ml 200 ml 125 ml # Voids 1 # Bowel Movements 1 0 0 Result Diagram: 05/28/16 1227 05/28/16 1227 Imaging Last Impressions Wrist X-Ray 05/28/16 0000 Signed Impressions: Service Date/Time: Saturday, May 28, 2016 03:36 - CONCLUSION: 1. There is no evidence of acute fracture. El Santiago MD Shoulder X-Ray 05/28/16 0000 Signed Impressions: Service Date/Time: Saturday, May 28, 2016 04:03 - CONCLUSION: 1. Osteoarthritis as above without fracture El Santiago MD Ribs X-Ray 05/28/16 0000 Signed Impressions: Service Date/Time: Saturday, May 28, 2016 03:56 - CONCLUSION: 1. Cardiomegaly and findings of vascular congestion without overt failure. 2. Resolution of the previously seen left basilar atelectasis and left effusion 3. There is no evidence of acute fracture. El Santiago MD Head CT 05/28/16 0000 Signed Impressions: Service Date/Time: Saturday, May 28, 2016 03:31 - CONCLUSION: 1. No evidence of acute intracranial pathology. No masses are identified. El Santiago MD Elbow X-Ray 05/28/16 0000 Signed Impressions: Service Date/Time: Saturday, May 28, 2016 04:09 - CONCLUSION: 1. There is no evidence of acute fracture. 2. Calcific tendinitis El Santiago MD Modified Barium Swallow 05/27/16 0000 Signed Impressions: Service Date/Time: Friday, May 27, 2016 00:00 - CONCLUSION: Aspiration. Devyn Bhatti MD Tube Change 05/20/16 0000 Signed Impressions: Service Date/Time: Friday, May 20, 2016 16:50 - CONCLUSION: Uncomplicated gastrojejunostomy tube exchange as above. El Santiago MD Chest X-Ray 05/18/16 0000 Signed Impressions: Service Date/Time: Wednesday, May 18, 2016 15:00 - CONCLUSION: Interval improvement. Kermit Rollins MD FACR Gastrostomy Tube Placement 05/11/16 0000 Signed Impressions: Service Date/Time: Wednesday, May 11, 2016 13:49 - CONCLUSION: Uncomplicated gastrojejunostomy tube placement as above. El Santiago MD Chest CT 05/11/16 0000 Signed Impressions: Service Date/Time: May 14:52 - CONCLUSION: 1. Bilateral pulmonary opacity with left lower lobe atelectasis versus consolidation and patchy bilateral mid to upper lung atelectasis versus mild consolidation. 2. Small left pleural effusion. 3. Evidence of old granulomatous disease. Kyle Ludwig MD Abdomen/Pelvis CT 05/11/16 0000 Signed Impressions: Service Date/Time: May 14:52 - CONCLUSION: 1. Severe peripancreatic inflammatory changes again seen. No organized rounded fluid collections identified. 2. Left lower lobe atelectasis/consolidation and small pleural effusion unchanged. Kyle Ludwig MD Abdomen X-Ray 05/09/16 0900 Signed Impressions: Service Date/Time: Monday, May 09, 2016 09:02 - CONCLUSION: 2 tubes in the stomach one nasogastric one Dobbhoff both terminate in the distal body or antrum of the stomach Braden Larson MD Tube Placement X-Ray 05/05/16 0000 Signed Impressions: Service Date/Time: April 16:20 - CONCLUSION: Fluoroscopically guided nasogastric tube repositioning as above. Attempts were discontinued after multiple attempts with the tubing seen coiling within the patient's mouth region and proximal esophagus. Tessa Nichole MD Renal Ultrasound 04/25/16 0000 Signed Impressions: Service Date/Time: Monday, April 25, 2016 15:01 - CONCLUSION: No evidence of hydronephrosis. Tom Seals MD Objective Remarks General: No acute distress. Heart: Regular rate and rhythm. No murmur. Lungs: Clear to auscultation bilaterally. No wheezes, rales, or rhonchi. Breathing is nonlabored. Abdomen: Soft, nontender, nondistended. Extremities: No lower extremity edema. No calf tenderness. Psych: Alert and oriented. Procedures 04/27/16 arterial line placement 04/27/16 central line placement 04/27/16 endotracheal intubation 04/27/16 hemodialysis catheter placement 05/07/16 central line placement 05/10/16 percutaneous tracheostomy Urinary Catheter: No Vascular Central Line Catheter: No A/P Problem List: (1) Pancreatitis ICD Code: K85.90 Status: Acute (2) Respiratory failure ICD Code: J96.90 Status: Acute (3) COPD (chronic obstructive pulmonary disease) ICD Code: J44.9 Status: Chronic (4) Acute renal failure ICD Code: N17.9 Status: Acute (5) Abdominal pain ICD Code: R10.9 Status: Acute (6) Toxic metabolic encephalopathy ICD Code: G92 Status: Acute (7) Hypokalemia ICD Code: E87.6 Status: Acute Assessment and Plan Reviewed/updated 05/30/16. Awaiting inpatient rehabilitation authorization. 1. Acute toxic metabolic encephalopathy: Multifactorial. Secondary to alcohol abuse, respiratory failure. Resolved. 2. Severe acute pancreatitis: Appreciate general surgery management. GJ tube placed 05/11/16. Strict nothing by mouth per speech therapy. The patient failed barium swallow. 3. Sinus tachycardia: Resolved. Likely secondary to SIRS/pancreatitis. 4. Acute kidney injury: Resolved. Likely prerenal. 5. Anemia: Secondary to acute blood loss critical illness. Status post transfusion of PRBCs, 2 units on 05/11/16. 6. Hypokalemia: Resolved. 7. Diabetes mellitus: Glucose has been stable. 8. DVT prophylaxis: Heparin. 9. GI prophylaxis: Pepcid. 10. Dysphagia: Failed modified barium swallow. Strict NPO. Appreciate dietary recommendations. Continue tube feeds with Jevity 1.5, goal rate 60ml/hr. Now at 50ml/hr. Discharge Planning Plan for discharge to inpatient rehabilitation once arrangements are made by case management. Will need insurance authorization, which cannot happen until tomorrow at the earliest. Problem Qualifiers (1) Pancreatitis: Qualified Code: K85.20 - Alcohol-induced acute pancreatitis, unspecified complication status (2) Acute renal failure: Qualified Code: N17.0 - Acute renal failure with tubular necrosis (3) Abdominal pain: Qualified Code: R10.12 - Left upper quadrant pain Shin Stanford MD May 30, 2016 08:15
[2016-05-30] MEDS ORDERED: [UNRECOGNIZED DRUG - CODE] PEG (08:33)
[2016-05-30] MEDS ORDERED: OXYC1CON3 NG (08:33)
[2016-05-30] MEDS ORDERED: BUME1TAB PO (08:33)
--- NOTE | 2016-05-30 08:35 | HHI.DCPOC ---
Discharge Care Plan Diagnosis: (1) Toxic metabolic encephalopathy (2) Hypokalemia (3) COPD (chronic obstructive pulmonary disease) (4) Acute pancreatitis (5) Respiratory failure (6) Abdominal pain (7) Thrombocytopenia (8) Acute renal failure (9) HTN (hypertension) (10) Dysphagia Goals to Promote Your Health * To prevent worsening of your condition and complications * To maintain your health at the optimal level Directions to Meet Your Goals Take your medications as prescribed Follow your dietary instruction Follow activity as directed Keep your appointments as scheduled Take your immunizations and boosters as scheduled If your symptoms worsen call your PCP, if no PCP go to Urgent Care Center or Emergency Room Smoking is Dangerous to Your Health. Avoid second hand smoke Call the 24-hour hour crisis hotline for domestic abuse at Shin Stanford MD May 30, 2016 08:35
[2016-05-30] MEDS: FAMOTIDINE 20 MG TAB NG SCH ×2 (08:58→20:44)
[2016-05-30] MEDS: BUMETANIDE 1 MG TAB PO SCH ×2 (09:00→17:50)
[2016-05-30] MEDS: POTASSIUM CL 40 MEQ/30 ML LIQ UDC NG SCH (09:01)
[2016-05-30] MEDS: SODIUM CHLORIDE 0.9% FLUSH 5 ML FLUSH IV FLUSH SCH ×2 (09:01→20:44)
[2016-05-30] MEDS: HEPARIN SODIUM - SQ 10,000 UNITS/ML VIAL SQ SCH ×3 (09:02→22:50)
[2016-05-30] MEDS: diphenhydrAMINE HCL 25 MG CAP PO PRN (22:50)
[2016-05-31] MEDS: oxyCODONE HCL ORAL CONC 20 MG/ML SYRINGE NG PRN (04:41)
[2016-05-31] MEDS: HEPARIN SODIUM - SQ 10,000 UNITS/ML VIAL SQ SCH (05:33)
[2016-05-31] MEDS: METOCLOPRAMIDE HCL SYRUP 10 MG/10 ML UDC NG SCH (05:34)
[2016-05-31] MEDS: FREE WATER G-TUBE SCH (05:34)
[2016-05-31 08:00] VITALS: BP 134/83; PULSE 98; RESP 16; TEMP 98.1; O2SAT 98
[2016-05-31] MEDS: CHLORHEXIDINE 0.12% (ORAL KIT) 15 ML CUP MT SCH (08:00)
[2016-05-31] MEDS: FAMOTIDINE 20 MG TAB NG SCH (08:01)
[2016-05-31] MEDS: BUMETANIDE 1 MG TAB PO SCH (08:01)
[2016-05-31] MEDS: POTASSIUM CL 40 MEQ/30 ML LIQ UDC NG SCH (08:01)
[2016-05-31] MEDS: SODIUM CHLORIDE 0.9% FLUSH 5 ML FLUSH IV FLUSH SCH (08:02)
--- NOTE | 2016-05-31 09:10 | HHI.PR ---
Subjective Remarks Awaiting rehabilitation placement. The patient has no complaints at this time. Case management states that he has been accepted at inpatient rehabilitation and will be going there this morning. Objective Vitals Vital Signs Date Time Temp Pulse Resp B/P Pulse Ox O2 Delivery O2 Flow Rate FiO2 05/31/16 08:00 98.1 98 16 134/83 98 05/30/16 23:28 98.2 80 20 134/65 97 05/30/16 20:00 96.8 82 20 143/69 96 05/30/16 16:00 97.8 86 16 130/76 93 05/30/16 12:00 97.4 78 20 131/68 95 05/30/16 09:31 93 I/O 05/30/16 05/30/16 05/30/16 05/31/16 05/31/16 05/31/16 07:00 15:00 23:00 07:00 15:00 23:00 Intake Total 0 ml 1440 ml 852 ml 446 ml Output Total 125 ml 5 ml 400 ml 450 ml Balance -125 ml 1435 ml 452 ml -4 ml Intake Oral 0 ml 0 ml 240 ml 0 ml Tube Feeding 1040 ml 612 ml 446 ml Other 400 ml Output Urine Total 125 ml 5 ml 400 ml 450 ml # Voids 1 # Bowel Movements 0 3 0 0 Result Diagram: 05/28/16 1227 05/28/16 1227 Imaging Last Impressions Wrist X-Ray 05/28/16 0000 Signed Impressions: Service Date/Time: Saturday, May 28, 2016 03:36 - CONCLUSION: 1. There is no evidence of acute fracture. El Santiago MD Shoulder X-Ray 05/28/16 0000 Signed Impressions: Service Date/Time: Saturday, May 28, 2016 04:03 - CONCLUSION: 1. Osteoarthritis as above without fracture El Santiago MD Ribs X-Ray 05/28/16 0000 Signed Impressions: Service Date/Time: Saturday, May 28, 2016 03:56 - CONCLUSION: 1. Cardiomegaly and findings of vascular congestion without overt failure. 2. Resolution of the previously seen left basilar atelectasis and left effusion 3. There is no evidence of acute fracture. El Santiago MD Head CT 05/28/16 0000 Signed Impressions: Service Date/Time: Saturday, May 28, 2016 03:31 - CONCLUSION: 1. No evidence of acute intracranial pathology. No masses are identified. El Santiago MD Elbow X-Ray 05/28/16 0000 Signed Impressions: Service Date/Time: Saturday, May 28, 2016 04:09 - CONCLUSION: 1. There is no evidence of acute fracture. 2. Calcific tendinitis El Santiago MD Modified Barium Swallow 05/27/16 0000 Signed Impressions: Service Date/Time: Friday, May 27, 2016 00:00 - CONCLUSION: Aspiration. Devyn Bhatti MD Tube Change 05/20/16 0000 Signed Impressions: Service Date/Time: Friday, May 20, 2016 16:50 - CONCLUSION: Uncomplicated gastrojejunostomy tube exchange as above. El Santiago MD Chest X-Ray 05/18/16 0000 Signed Impressions: Service Date/Time: Wednesday, May 18, 2016 15:00 - CONCLUSION: Interval improvement. Kermit Rollins MD FACR Gastrostomy Tube Placement 05/11/16 0000 Signed Impressions: Service Date/Time: Wednesday, May 11, 2016 13:49 - CONCLUSION: Uncomplicated gastrojejunostomy tube placement as above. El Santiago MD Chest CT 05/11/16 0000 Signed Impressions: Service Date/Time: May 14:52 - CONCLUSION: 1. Bilateral pulmonary opacity with left lower lobe atelectasis versus consolidation and patchy bilateral mid to upper lung atelectasis versus mild consolidation. 2. Small left pleural effusion. 3. Evidence of old granulomatous disease. Kyle Ludwig MD Abdomen/Pelvis CT 05/11/16 0000 Signed Impressions: Service Date/Time: May 14:52 - CONCLUSION: 1. Severe peripancreatic inflammatory changes again seen. No organized rounded fluid collections identified. 2. Left lower lobe atelectasis/consolidation and small pleural effusion unchanged. Kyle Ludwig MD Abdomen X-Ray 05/09/16 0900 Signed Impressions: Service Date/Time: Monday, May 09, 2016 09:02 - CONCLUSION: 2 tubes in the stomach one nasogastric one Dobbhoff both terminate in the distal body or antrum of the stomach Braden Larson MD Tube Placement X-Ray 05/05/16 0000 Signed Impressions: Service Date/Time: April 16:20 - CONCLUSION: Fluoroscopically guided nasogastric tube repositioning as above. Attempts were discontinued after multiple attempts with the tubing seen coiling within the patient's mouth region and proximal esophagus. Tessa Nichole MD Renal Ultrasound 04/25/16 0000 Signed Impressions: Service Date/Time: Monday, April 25, 2016 15:01 - CONCLUSION: No evidence of hydronephrosis. Tom Seals MD Objective Remarks General: No acute distress. In a wheelchair. Heart: Regular rate and rhythm. No murmur. Lungs: Clear to auscultation bilaterally. No wheezes, rales, or rhonchi. Breathing is nonlabored. Abdomen: Soft, nontender, nondistended. PEG tube in place. Extremities: No lower extremity edema. No calf tenderness. Psych: Alert and oriented. Procedures 04/27/16 arterial line placement 04/27/16 central line placement 04/27/16 endotracheal intubation 04/27/16 hemodialysis catheter placement 05/07/16 central line placement 05/10/16 percutaneous tracheostomy Urinary Catheter: No Vascular Central Line Catheter: No A/P Problem List: (1) Pancreatitis ICD Code: K85.90 Status: Acute (2) Respiratory failure ICD Code: J96.90 Status: Acute (3) COPD (chronic obstructive pulmonary disease) ICD Code: J44.9 Status: Chronic (4) Acute renal failure ICD Code: N17.9 Status: Acute (5) Abdominal pain ICD Code: R10.9 Status: Acute (6) Toxic metabolic encephalopathy ICD Code: G92 Status: Acute (7) Hypokalemia ICD Code: E87.6 Status: Acute Assessment and Plan Reviewed/updated 05/31/16. In inpatient rehabilitation has been authorized by the patient's insurance and he will be discharged to [facility] today. 1. Acute toxic metabolic encephalopathy: Multifactorial. Secondary to alcohol abuse, respiratory failure. Resolved. 2. Severe acute pancreatitis: Appreciate general surgery management. GJ tube placed 05/11/16. Strict nothing by mouth per speech therapy. The patient failed barium swallow. 3. Sinus tachycardia: Resolved. Likely secondary to SIRS/pancreatitis. 4. Acute kidney injury: Resolved. Likely prerenal. 5. Anemia: Secondary to acute blood loss critical illness. Status post transfusion of PRBCs, 2 units on 05/11/16. 6. Hypokalemia: Resolved. 7. Diabetes mellitus: Glucose has been stable. 8. DVT prophylaxis: Heparin. 9. GI prophylaxis: Pepcid. 10. Dysphagia: Failed modified barium swallow. Strict NPO. Appreciate dietary recommendations. Continue tube feeds with Jevity 1.5, goal rate 60ml/hr. Now at 50ml/hr. Discharge Planning Plan for discharge to inpatient rehabilitation today. Problem Qualifiers (1) Pancreatitis: Qualified Code: K85.20 - Alcohol-induced acute pancreatitis, unspecified complication status (2) Acute renal failure: Qualified Code: N17.0 - Acute renal failure with tubular necrosis (3) Abdominal pain: Qualified Code: R10.12 - Left upper quadrant pain Shin Stanford MD May 31, 2016 09:10
--- NOTE | 2016-06-01 15:38 | HHI.DS ---
Discharge Summary Admission Date Apr 24, 2016 at 15:14 Discharge Date: May 31, 2016 Admitting Diagnosis ACUTE PANCREATITIS (1) Pancreatitis ICD Code: K85.90 (2) Respiratory failure ICD Code: J96.90 (3) COPD (chronic obstructive pulmonary disease) ICD Code: J44.9 (4) Acute renal failure ICD Code: N17.9 (5) Abdominal pain ICD Code: R10.9 (6) Toxic metabolic encephalopathy ICD Code: G92 (7) Hypokalemia ICD Code: E87.6 Procedures 04/27/16 arterial line placement 04/27/16 central line placement 04/27/16 endotracheal intubation 04/27/16 hemodialysis catheter placement 05/07/16 central line placement 05/10/16 percutaneous tracheostomy Brief History - From Admission This a 65-year-old male with history of COPD, alcohol abuse, diabetes mellitus, CHF, coronary artery disease who presented to the emergency department with abdominal pain. Of note, the patient was in the hospital April 13 and for shortness of breath, was treated for COPD exacerbation. He already has finished his antibiotics but is still on a tapering dose of prednisone. He came in today because of abdominal pain, 10 over 10, epigastric, started about 2 days ago but worsening today, described as stabbing, associated with nausea, and vomiting of bilious material, nonbloody. Pain is radiating to the back, not associated with any fever or chills. Shortness of breath has improved, back to baseline, denies any cough, shortness of breath, chest pain or sputum production. There is also no note of diarrhea or any urinary symptoms. Of note , patient drinks about 10 bottles of beer every day, last drink was about 2 days ago. CBC/BMP: 05/28/16 1227 05/28/16 1227 Imaging Last Impressions Wrist X-Ray 05/28/16 0000 Signed Impressions: Service Date/Time: Saturday, May 28, 2016 03:36 - CONCLUSION: 1. There is no evidence of acute fracture. El Santiago MD Shoulder X-Ray 05/28/16 0000 Signed Impressions: Service Date/Time: Saturday, May 28, 2016 04:03 - CONCLUSION: 1. Osteoarthritis as above without fracture El Santiago MD Ribs X-Ray 05/28/16 0000 Signed Impressions: Service Date/Time: Saturday, May 28, 2016 03:56 - CONCLUSION: 1. Cardiomegaly and findings of vascular congestion without overt failure. 2. Resolution of the previously seen left basilar atelectasis and left effusion 3. There is no evidence of acute fracture. El Santiago MD Head CT 05/28/16 0000 Signed Impressions: Service Date/Time: Saturday, May 28, 2016 03:31 - CONCLUSION: 1. No evidence of acute intracranial pathology. No masses are identified. El Santiago MD Elbow X-Ray 05/28/16 0000 Signed Impressions: Service Date/Time: Saturday, May 28, 2016 04:09 - CONCLUSION: 1. There is no evidence of acute fracture. 2. Calcific tendinitis El Santiago MD Modified Barium Swallow 05/27/16 0000 Signed Impressions: Service Date/Time: Friday, May 27, 2016 00:00 - CONCLUSION: Aspiration. Devyn Bhatti MD Tube Change 05/20/16 0000 Signed Impressions: Service Date/Time: Friday, May 20, 2016 16:50 - CONCLUSION: Uncomplicated gastrojejunostomy tube exchange as above. El Santiago MD Chest X-Ray 05/18/16 0000 Signed Impressions: Service Date/Time: Wednesday, May 18, 2016 15:00 - CONCLUSION: Interval improvement. Kermit Rollins MD FACR Gastrostomy Tube Placement 05/11/16 0000 Signed Impressions: Service Date/Time: Wednesday, May 11, 2016 13:49 - CONCLUSION: Uncomplicated gastrojejunostomy tube placement as above. El Santiago MD Chest CT 05/11/16 0000 Signed Impressions: Service Date/Time: May 14:52 - CONCLUSION: 1. Bilateral pulmonary opacity with left lower lobe atelectasis versus consolidation and patchy bilateral mid to upper lung atelectasis versus mild consolidation. 2. Small left pleural effusion. 3. Evidence of old granulomatous disease. Kyle Ludwig MD Abdomen/Pelvis CT 05/11/16 0000 Signed Impressions: Service Date/Time: May 14:52 - CONCLUSION: 1. Severe peripancreatic inflammatory changes again seen. No organized rounded fluid collections identified. 2. Left lower lobe atelectasis/consolidation and small pleural effusion unchanged. Kyle Ludwig MD Abdomen X-Ray 05/09/16 0900 Signed Impressions: Service Date/Time: Monday, May 09, 2016 09:02 - CONCLUSION: 2 tubes in the stomach one nasogastric one Dobbhoff both terminate in the distal body or antrum of the stomach Braden Larson MD Tube Placement X-Ray 05/05/16 0000 Signed Impressions: Service Date/Time: April 16:20 - CONCLUSION: Fluoroscopically guided nasogastric tube repositioning as above. Attempts were discontinued after multiple attempts with the tubing seen coiling within the patient's mouth region and proximal esophagus. Tessa Nichole MD Renal Ultrasound 04/25/16 0000 Signed Impressions: Service Date/Time: Monday, April 25, 2016 15:01 - CONCLUSION: No evidence of hydronephrosis. Tom Seals MD PE at Discharge General: No acute distress. In a wheelchair. Heart: Regular rate and rhythm. No murmur. Lungs: Clear to auscultation bilaterally. No wheezes, rales, or rhonchi. Breathing is nonlabored. Abdomen: Soft, nontender, nondistended. PEG tube in place. Extremities: No lower extremity edema. No calf tenderness. Psych: Alert and oriented. Hospital Course The patient was admitted for acute alcohol induced pancreatitis. He was kept nothing by mouth and continued on IV fluids. Pain control was continued with IV morphine. He was placed on CIWA protocol secondary to history of alcohol abuse. He developed acute renal failure. Nephrology was consulted. Electrolytes were monitored and replaced. He developed worsening respiratory status. He was placed on BiPAP, but then started vomiting. Critical care was consulted. The patient was intubated and maintained on mechanical ventilation. Gastroenterology was consulted. NG tube was placed. Gen. surgery was consulted for tracheostomy placement. Infectious disease was consulted for treatment of possible sepsis. Antibiotics were adjusted. Vancomycin was discontinued secondary to acute renal failure. The patient was slowly weaned off the ventilator. Pulmonology was consulted for trach management. The patient was transferred to the hospitalist service. The patient had severe dysphagia. He failed swallow eval. PEG tube was placed and tube feeds were started. PT/OT/ST were continued. The patient's respiratory status improved. Tracheostomy was discontinued by pulmonology. He continued to show clinical improvement. Arrangements were made for discharge to inpatient rehabilitation. Pt Condition on Discharge: Stable Discharge Disposition: Rehab Inpatient Discharge Time: > 30 minutes Discharge Instructions DIET: Follow Instructions for: Nothing By Mouth, On Tube Feeding Activities you can perform: Regular-No Restrictions Follow up Referrals: PCP Follow-up - 2 Weeks New Medications: Bumetanide (Bumetanide) 1 Mg Tab 1 MG PO BID@,18 diuretic #30 TAB Oxycodone Liq (Oxycodone Liq) 20 Mg/Ml Conc 5 MG NG Q4H PRN pain 1-7 #30 ML Potassium Chloride Liq (Potassium Chloride Liq) 10 % Betty 20 MEQ PEG DAILY supplement #30 ML Continued Medications: Albuterol 18 GM Inh (Ventolin Hfa 18 GM Inh) 90 Mcg/Act Aer 2 PUFF INH Q4-6H PRN SHORTNESS OF BREATH #1 Ref 0 INHALER Albuterol Neb (Albuterol Neb) 2.5 Mg/0.5 Ml Neb 2.5 MG NEB QID NEB Note: The Albuterol Sulfate Inhalation Solution is concentrated and must be diluted. Read complete instructions carefully before using. PRN SHORTNESS OF BREATH #120 Ref 0 NEBULE Budesonide-Formoterol Inh (Symbicort Inh) 160-4.5 Mcg/Act Aero 2 PUFF INH Q12HR #1 Ref 0 INHALER Nitroglycerin SL (Nitroglycerin SL) 0.4 Mg Subl 0.4 MG SL DIRECTED ONE TABLET UNDER THE TONGUE NEEDED FOR CHEST PAIN, MAY REPEAT EVERY FIVE MINUTES FOR A TOTAL OF 3 DOSES OR CALL 911 IF NO RELIEF PRN CHEST PAIN #100 Ref 0 TAB.SL Omeprazole (Omeprazole) 40 Mg Cap 40 MG PO DAILY #30 Ref 0 CAP Phenytoin Extended (Dilantin) 100 Mg Cap 300 MG PO DAILY Control Seizures #270 Ref 0 CAP Roflumilast (Daliresp) 500 Mcg Tab 500 MCG PO DAILY COPD #30 Ref 0 TAB Tiotropium Inh (Spiriva Handihaler) 18 Mcg Cap 18 MCG INH DAILY 1 capsule = 18 mcg COPD #30 Ref 0 CAP Discontinued Medications: Allopurinol (Allopurinol) 300 Mg Tab 300 MG PO DAILY Gout #30 Ref 0 TAB Amlodipine (Amlodipine) 5 Mg Tab 5 MG PO BID Blood Pressure Management #30 Ref 0 TAB Clonidine (Clonidine) 0.1 Mg Tab 0.1 MG PO Q12HR Blood Pressure Management #60 Ref 0 TAB Gabapentin (Gabapentin) 600 Mg Tab 600 MG PO TID #90 Ref 0 TAB Hydrochlorothiazide (Hydrochlorothiazide) 25 Mg Tab 25 MG PO BID #30 TAB Metformin (Metformin) 1,000 Mg Tab 1000 MG PO BIDPC With meals Blood Sugar Management #60 Ref 0 TAB Prednisone (Prednisone) 20 Mg Tab 40 MG PO DAILY Take 40mg daily for 5 days total. COPD #10 Ref 0 TAB Shin Stanford MD Jun 01, 2016 15:38
[2016-06-14] MEDS ORDERED: PANT20 PO (09:33)
[2016-06-14] MEDS ORDERED: ROFL1TAB2 PO (09:33)
[2016-06-14] MEDS ORDERED: BUME1TAB PO (09:33)
[2016-06-14] MEDS ORDERED: VENTAER INH (09:33)
[2016-06-14] MEDS ORDERED: DILA100C PO (09:33)
[2016-06-14] MEDS ORDERED: OXYC-392 PO (09:33)
[2016-06-14] MEDS ORDERED: POTA20TA5 PO (09:33)
[2016-06-14] MEDS ORDERED: BENT20TA PO (09:33)
[2016-06-14] MEDS ORDERED: SYMB160A INH (09:33)
[2016-06-14] MEDS ORDERED: AMBI5TAB PO (09:33)
[2016-07-27] MEDS ORDERED: REGL5TAB PO (15:15)
== END 2016-05-31 11:09 | DRG 4 ==
LOC: NEPC 11:43 → NEDA 15:14 → HOCB 16:28 → N03B 04-27 03:18 → N07A 05-24 17:17
PROVIDERS: ADMIT Family Medicine; ATTEND Family Medicine
PROC: 0BH17EZ Insertion of Endotracheal Airway into Trachea, Via Natural or Artificial Opening (ICD-10-PCS; principal; 2016-04-27)
PROC: 03HY32Z Insertion of Monitoring Device into Upper Artery, Percutaneous Approach (ICD-10-PCS; 2016-04-27)
PROC: 5A1955Z Respiratory Ventilation, Greater than 96 Consecutive Hours (ICD-10-PCS; 2016-04-27)
PROC: 02HV33Z Insertion of Infusion Device into Superior Vena Cava, Percutaneous Approach (ICD-10-PCS; 2016-04-27)
PROC: 5A1D60Z (ICD-10-PCS; 2016-04-27)
PROC: 05HN33Z Insertion of Infusion Device into Left Internal Jugular Vein, Percutaneous Approach (ICD-10-PCS; 2016-04-27)
PROC: B544ZZA Ultrasonography of Left Jugular Veins, Guidance (ICD-10-PCS; 2016-04-27)
PROC: 0B113F4 Bypass Trachea to Cutaneous with Tracheostomy Device, Percutaneous Approach (ICD-10-PCS; 2016-05-10)
PROC: 0BJ08ZZ Inspection of Tracheobronchial Tree, Via Natural or Artificial Opening Endoscopic (ICD-10-PCS; 2016-05-10)
PROC: 02HV33Z Insertion of Infusion Device into Superior Vena Cava, Percutaneous Approach (ICD-10-PCS; 2016-05-11)
PROC: 30233N1 Transfusion of Nonautologous Red Blood Cells into Peripheral Vein, Percutaneous Approach (ICD-10-PCS; 2016-05-11)
PROC: 0DHA3UZ Insertion of Feeding Device into Jejunum, Percutaneous Approach (ICD-10-PCS; 2016-05-11)
PROC: 0D2DXUZ Change Feeding Device in Lower Intestinal Tract, External Approach (ICD-10-PCS; 2016-05-20)
DX: K85.20 Alcohol induced acute pancreatitis without necrosis or infection (principal); N17.0 Acute kidney failure with tubular necrosis; J69.0 Pneumonitis due to inhalation of food and vomit; A41.9 Sepsis, unspecified organism; G92 Toxic encephalopathy; J15.0 Pneumonia due to Klebsiella pneumoniae; J15.211 Pneumonia due to Methicillin susceptible Staphylococcus aureus; I47.2 Ventricular tachycardia; I11.0 Hypertensive heart disease with heart failure; K65.9 Peritonitis, unspecified; J96.01 Acute respiratory failure with hypoxia; E87.4 Mixed disorder of acid-base balance; J80 Acute respiratory distress syndrome; J44.0 Chronic obstructive pulmonary disease with (acute) lower respiratory infection; K56.7 Ileus, unspecified; J44.1 Chronic obstructive pulmonary disease with (acute) exacerbation; J98.11 Atelectasis; E87.0 Hyperosmolality and hypernatremia; K94.13 Enterostomy malfunction; I50.9 Heart failure, unspecified; D69.6 Thrombocytopenia, unspecified; I48.91 Unspecified atrial fibrillation; E83.51 Hypocalcemia; E86.9 Volume depletion, unspecified; E11.9 Type 2 diabetes mellitus without complications; I25.10 Atherosclerotic heart disease of native coronary artery without angina pectoris; J45.909 Unspecified asthma, uncomplicated; K21.9 Gastro-esophageal reflux disease without esophagitis; D64.89 Other specified anemias; K76.0 Fatty (change of) liver, not elsewhere classified; K86.0 Alcohol-induced chronic pancreatitis; B19.20 Unspecified viral hepatitis C without hepatic coma; E87.6 Hypokalemia; M10.9 Gout, unspecified; M19.90 Unspecified osteoarthritis, unspecified site; R13.10 Dysphagia, unspecified; W19.XXXA Unspecified fall, initial encounter; F32.9 Major depressive disorder, single episode, unspecified; F10.20 Alcohol dependence, uncomplicated; F17.210 Nicotine dependence, cigarettes, uncomplicated; Y95 Nosocomial condition; Y92.239 Unspecified place in hospital as the place of occurrence of the external cause; Z86.73 Personal history of transient ischemic attack (TIA), and cerebral infarction without residual deficits; Z79.84 Long term (current) use of oral hypoglycemic drugs; Z88.0 Allergy status to penicillin; R07.81 Pleurodynia
CPT/HCPCS: 31500; 31600; 36430; 36556; 43752; 49440; 49446; 49452; 70450; 71010; 71101; 71250; 73030; 73080; 73110; 74000; 74020; 74176; 74177; 74230; 76775; 76937; 76942; 80048; 80053; 80074; 80076; 81001; 82550; 82805; 82948; 83605; 83690; 83735; 84100; 84132; 84134; 84155; 84478; 84484; 85007; 85014; 85018; 85025; 85027; 85610; 85730; 86140; 86403; 86850; 86900; 86901; 86920; 87040; 87070; 87077; 87086; 87147; 87186; 87205; 87493; 87641; 90935; 93005; 94003; 94640; 94664; 96361; 96374; 96375; 99152; 99153; C1769; C1874; C1887; C1894; C9113; J0131; J0171; J0330; J0360; J0461; J0610; J1120; J1170; J1230; J1450; J1580; J1610; J1644; J1815; J1940; J1956; J2150; J2185; J2212; J2248; J2250; J2270; J2405; J2765; J2930; J3010; J3370; J3411; J3475; J3480; J7030; J7040; J7042; J7050; J7070; J7120; P9016; P9047; Q4081; Q9963; Q9967

== ENCOUNTER 2016-07-07 11:34 | Inpatient (IN) | payer OTHER, MEDICARE ==
[2016-07-07] VITALS (9 sets, daily range): BP systolic 141–197; BP diastolic 75–105; PULSE 70–82; RESP 16–20; TEMP 82–97.9; O2SAT 95–100
[~2016-07-07] VITALS: Ht 165.1 cm; Wt 68.6 kg
[~2016-07-07 11:34] MED LIST changes: -ALLO300T2 PO; +AMBI5TAB PO; -AMLO5TAB2 PO; +BENT20TA PO; +BUME1TAB PO; -CLON0.1T PO; -GABA600T PO; -HYDR25TA5 PO; -LEVA750T PO; -METF1000 PO; +OXYC-392 PO; +OXYC1CON3 NG; +PANT20 PO; +POTA20TA5 PO; -PRED20 PO; +[UNRECOGNIZED DRUG - CODE] PEG
--- NOTE | 2016-07-07 12:05 | PD ---
Physical Exam Exam Limitations: Poor Historian Date Seen by Provider: Jul 07, 2016 Time Seen by Provider: 12:04 Narrative Patient seen in Triage with Complaints of Abdominal Pain. Patient states Hx of Pancreatitis. Also Feels he has been having Swelling in his right hand. Duration is difficult yo ascertain. No Vomiting or Diarrhea. Vitals are stable. Patient awaiting bed placement. Data Data Last Documented VS Vital Signs Date Time Temp Pulse Resp B/P Pulse Ox O2 Delivery O2 Flow Rate FiO2 07/07/16 11:36 97.9 74 20 177/90 97 Room Air [facility] Medical Record Reviewed: Yes Supervised Visit with LIBBY: Yes Condition: Stable Gold Gonsales Jul 07, 2016 12:05
[2016-07-07] MEDS ORDERED: SODIUM CHLOR 0.9% 1000 ML INJ 1,000 ML IV SCH ×2 (12:33→17:43)
--- NOTE | 2016-07-07 12:40 | PD ---
HPI Chief Complaint: Abdominal Pain Time Seen by Provider: 12:23 Travel History International Travel<30 days: No Contact w/Intl Traveler<30days: No Traveled to known affect area: No History of Present Illness HPI Patient is a 66-year-old male who presents to emergency room with complaints of abdominal pain. Patient reports that he was recently discharged from the hospital after he was admitted for "very long time" for treatment of acute pancreatitis. Patient reports that he has been feeling nauseous, reports that he has not vomited. Patient did have dinner last night, reports that he was unable to eat anything today. Patient with no chest pain or shortness of breath. Patient reports that since he has been discharged from the hospital, he did stop drinking alcohol. Denies fevers or chills. Patient with no other complaints at this time. PFSH Past Medical History Hx Anticoagulant Therapy: Yes Anemia: No Arthritis: Yes Asthma: Yes Atrial Fibrillation: Yes Autoimmune Disease: No Blood Disorders: No Anxiety: No Depression: Yes Heart Rhythm Problems: Yes Cancer: No Cardiovascular Problems: Yes High Cholesterol: No Chemotherapy: No Chest Pain: Yes Congestive Heart Failure: Yes COPD: Yes Cerebrovascular Accident: No Diabetes: Yes Patient Takes Glucophage: Yes Diminished Hearing: No Endocrine: Yes Gastrointestinal Disorders: Yes GERD: No Glaucoma: No Gout: Yes Genitourinary: No Headaches: Yes Hepatitis: No Hiatal Hernia: No Hypertension: Yes Immune Disorder: No Implanted Vascular Access Dvce: No Kidney Stones: No Musculoskeletal: No Neurologic: No Psychiatric: No Reproductive: No Respiratory: Yes Immunizations Current: No Migraines: No Myocardial Infarction: No Radiation Therapy: No Renal Failure: No Seizures: Yes Sickle Cell Disease: No Sleep Apnea: Yes Thyroid Disease: No Ulcer: No Tetanus Vaccination: Unknown Influenza Vaccination: Yes Past Surgical History Abdominal Surgery: Yes (G-tube insertion) AICD: No Appendectomy: Yes Arteriovenous Shunt: No Body Medical Devices: G-tube Cardiac Surgery: No Cholecystectomy: No Ear Surgery: No Endocrine Surgery: No Eye Surgery: No Genitourinary Surgery: No Gynecologic Surgery: No Insulin Pump: No Joint Replacement: No Neurologic Surgery: No Oral Surgery: Yes (Tooth pulled) Pacemaker: No Thoracic Surgery: No Other Surgery: Yes (appendectomy, bone spur resection, ) Social History Alcohol Use: No (prior ETOH abuse) Tobacco Use: No (quit 2 months ago) Substance Use: No Allergies-Medications (Allergen,Severity, Reaction): Coded Allergies: Penicillin (Verified Allergy, Severe, HIVES, 07/07/16) Reported Meds & Prescriptions Reported Meds & Active Scripts Active Ambien (Zolpidem Tartrate) 5 Mg Tab 5 Mg PO HS PRN do not take within 2 hours of pain medication Daliresp (Roflumilast) 500 Mcg Tab 500 Mcg PO DAILY 30 Days Potassium Chloride Microencaps 20 Meq Tab 10 Meq PO EVERY OTHER DAY Dilantin (Phenytoin Extended) 100 Mg Cap 100 Mg PO TID 30 Days Protonix (Pantoprazole Sodium) 20 Mg Tab 20 Mg PO BID 30 Days Oxycodone (Oxycodone HCl) 5 Mg Tab 5 Mg PO Q4H PRN Bentyl (Dicyclomine HCl) 20 Mg Tab 20 Mg PO TID 10 Days Bumetanide 1 Mg Tab 1 Mg PO 1800 30 Days Symbicort Inh (Budesonide/Formoterol Fumarate) 160-4.5 Mcg/Act Aero 2 Puff INH Q12HR 30 Days Ventolin Hfa 18 GM Inh (Albuterol Sulfate) 90 Mcg/Act Aer 2 Puff INH Q4H PRN 30 Days Potassium Chloride Liq (Potassium Chloride) 10 % Betty 20 Meq PEG DAILY Oxycodone Liq (Oxycodone HCl) 20 Mg/Ml Conc 5 Mg NG Q4H PRN Bumetanide 1 Mg Tab 1 Mg PO BID@,18 Reported Clonidine (Clonidine HCl) 0.2 Mg Tab 0.2 Mg PO BID Amlodipine (Amlodipine Besylate) 2.5 Mg Tab 2.5 Mg PO DAILY Nitroglycerin SL (Nitroglycerin) 0.4 Mg Subl 0.4 Mg SL DIRECTED PRN ONE TABLET UNDER THE TONGUE NEEDED FOR CHEST PAIN, MAY REPEAT EVERY FIVE MINUTES FOR A TOTAL OF 3 DOSES OR CALL 911 IF NO RELIEF Spiriva Handihaler (Tiotropium Inh) 18 Mcg Cap 18 Mcg INH DAILY 1 capsule = 18 mcg Dilantin (Phenytoin Extended) 100 Mg Cap 300 Mg PO DAILY Omeprazole 40 Mg Cap 40 Mg PO DAILY Symbicort Inh (Budesonide/Formoterol Fumarate) 160-4.5 Mcg/Act Aero 2 Puff INH Q12HR Albuterol Neb (Albuterol Sulfate) 2.5 Mg/0.5 Ml Neb 2.5 Mg NEB QID NEB PRN Note: The Albuterol Sulfate Inhalation Solution is concentrated and must be diluted. Read complete instructions carefully before using. Review of Systems General / Constitutional: No: Fever, Chills Eyes: No: Visual changes HENT: No: Headaches Cardiovascular: No: Chest Pain or Discomfort Respiratory: No: Shortness of Breath Gastrointestinal: Positive: Nausea, Abdominal Pain Genitourinary: No: Dysuria Musculoskeletal: No: Pain Skin: No Rash Neurologic: No: Weakness Psychiatric: No: Depression Endocrine: No: Polydipsia Hematologic/Lymphatic: No: Easy Bruising Physical Exam Narrative GENERAL: Mild distress SKIN: Focused skin assessment warm/dry. HEAD: Atraumatic. Normocephalic. EYES: Pupils equal and round. No scleral icterus. No injection or drainage. ENT: No nasal bleeding or discharge. Mucous membranes pink and moist. NECK: Trachea midline. No JVD. CARDIOVASCULAR: Regular rate and rhythm. No murmur appreciated. RESPIRATORY: No accessory muscle use. Clear to auscultation. Breath sounds equal bilaterally. GASTROINTESTINAL: Abdomen soft, diffusely tender, mildly distended, patient with guarding on exam MUSCULOSKELETAL: No obvious deformities. No clubbing. No cyanosis. No edema. NEUROLOGICAL: Awake and alert. No obvious cranial nerve deficits. Motor grossly within normal limits. Normal speech. PSYCHIATRIC: Appropriate mood and affect; insight and judgment normal. Data Data Last Documented VS Vital Signs Date Time Temp Pulse Resp B/P Pulse Ox O2 Delivery O2 Flow Rate FiO2 07/07/16 15:00 77 18 192/105 100 Room Air 07/07/16 11:36 97.9 Orders Complete Blood Count With Diff (07/07/16 12:33) Comprehensive Metabolic Panel (07/07/16 12:33) Lipase (07/07/16 12:33) Prothrombin Time / Inr (Pt) (07/07/16 12:33) Act Partial Throm Time (Ptt) (07/07/16 12:33) Urinalysis - C+S If Indicated (07/07/16 12:33) Ct Abd/Pel W Iv Contrast(Rout) (07/07/16 12:33) Iv Access Insert/Monitor (07/07/16 12:33) Ecg Monitoring (07/07/16 12:33) Oximetry (07/07/16 12:33) Morphine Inj (Morphine Inj) (07/07/16 12:45) Ondansetron Inj (Zofran Inj) (07/07/16 12:45) Sodium Chlor 0.9% 1000 Ml Inj (Ns 1000 M (07/07/16 12:33) Sodium Chloride 0.9% Flush (Ns Flush) (07/07/16 12:45) Electrocardiogram (07/07/16 12:33) Chest, Single Ap (07/07/16 12:33) Famotidine Inj (Pepcid Inj) (07/07/16 12:45) Ammonia (07/07/16 12:40) Iohexol 350 Inj (Omnipaque 350 Inj) (07/07/16 14:07) Amlodipine (Norvasc) (07/07/16 15:30) Admit Order (Ed Use Only) (07/07/16 15:55) Labs Laboratory Tests Test 07/07/16 07/07/16 13:15 14:05 White Blood Count 10.2 TH/MM3 Red Blood Count 3.94 MIL/MM3 Hemoglobin 10.4 GM/DL Hematocrit 32.4 % Mean Corpuscular Volume 82.3 FL Mean Corpuscular Hemoglobin 26.5 PG Mean Corpuscular Hemoglobin 32.2 % Concent Red Cell Distribution Width 17.1 % Platelet Count 317 TH/MM3 Mean Platelet Volume 8.4 FL Neutrophils (%) (Auto) 62.7 % Lymphocytes (%) (Auto) 20.1 % Monocytes (%) (Auto) 13.0 % Eosinophils (%) (Auto) 3.7 % Basophils (%) (Auto) 0.5 % Neutrophils # (Auto) 6.4 TH/MM3 Lymphocytes # (Auto) 2.1 TH/MM3 Monocytes # (Auto) 1.3 TH/MM3 Eosinophils # (Auto) 0.4 TH/MM3 Basophils # (Auto) 0.0 TH/MM3 CBC Comment DIFF FINAL Differential Comment Prothrombin Time 11.1 SEC Prothromb Time International 1.0 RATIO Ratio Activated Partial 31.0 SEC Thromboplast Time Sodium Level 143 MEQ/L Potassium Level 4.3 MEQ/L Chloride Level 109 MEQ/L Carbon Dioxide Level 28.3 MEQ/L Anion Gap 6 MEQ/L Blood Urea Nitrogen 9 MG/DL Creatinine 0.86 MG/DL Estimat Glomerular Filtration 108 ML/MIN Rate Random Glucose 96 MG/DL Calcium Level 9.9 MG/DL Total Bilirubin 0.3 MG/DL Aspartate Amino Transf 18 U/L (AST/SGOT) Alanine Aminotransferase 14 U/L (ALT/SGPT) Alkaline Phosphatase 99 U/L Ammonia 21 MCMOL/L Total Protein 7.4 GM/DL Albumin 3.4 GM/DL Lipase 188 U/L Urine Color YELLOW Urine Turbidity CLEAR Urine pH 6.0 Urine Specific [place] 1.013 Urine Protein 30 mg/dL Urine Glucose (UA) NEG mg/dL Urine Ketones NEG mg/dL Urine Occult Blood NEG Urine Nitrite NEG Urine Bilirubin NEG Urine Urobilinogen LESS THAN 2.0 MG/DL Urine Leukocyte Esterase NEG Urine RBC LESS THAN 1 /hpf Urine WBC 1 /hpf Urine Hyaline Casts 1 /lpf Microscopic Urinalysis Comment CULT NOT INDICATED MDM Medical Decision Making Medical Screen Exam Complete: Yes Emergency Medical Condition: Yes Interpretation(s) Vital Signs Date Time Temp Pulse Resp B/P Pulse Ox O2 Delivery O2 Flow Rate FiO2 07/07/16 12:29 18 07/07/16 11:36 97.9 74 20 177/90 97 Room Air Differential Diagnosis Acute pancreatitis, acute hepatitis, metabolic encephalopathy, metabolic disturbance, ascites, hyperammonia Narrative Course Patient is a 66-year-old male who presents to emergency room with complaints of abdominal pain. Patient reports that he has history of alcohol abuse, reports that he was recently admitted to the hospital for metabolic encephalopathy as well as for alcoholic pancreatitis. Patient reports that he was discharged from the hospital a few weeks ago and has had constant pain to his abdomen since then. Nausea with no vomiting with overall decreased oral intake. Patient here for further evaluation of his symptoms. Patient reports that he has not had any alcohol since he was discharged from the hospital. He is also quit smoking. Patient denies any chest pain or shortness of breath at this time. I did review patient's past admissions to the hospital, patient was admitted to the hospital after a prolonged admssion for respiratory failure, toxic metabolic encephalopathy as well as with acute pancreatitis was likely from alcohol abuse. As per chart review, patient did have severe pancreatitis and did have a TPN started from May 07 untill May 14 and was weaned off this and had a GJ tube placed until 05/11/16. Patient was discharged to [facility] and was discharged to home on June 14, 2016. At this time, labs, lipase, CT of the abdomen and pelvis ordered to evaluate for pancreatitis and acute abdomen.. We'll give patient IV fluids as well as pain medications and monitor patient Laboratory Tests Test 07/07/16 07/07/16 13:15 14:05 White Blood Count 10.2 TH/MM3 (4.0-11.0) Red Blood Count 3.94 MIL/MM3 (4.50-5.90) Hemoglobin 10.4 GM/DL (13.0-17.0) Hematocrit 32.4 % (39.0-51.0) Mean Corpuscular Volume 82.3 FL (80.0-100.0) Mean Corpuscular Hemoglobin 26.5 PG (27.0-34.0) Mean Corpuscular Hemoglobin 32.2 % Concent (32.0-36.0) Red Cell Distribution Width 17.1 % (11.6-17.2) Platelet Count 317 TH/MM3 (150-450) Mean Platelet Volume 8.4 FL (7.0-11.0) Neutrophils (%) (Auto) 62.7 % (16.0-70.0) Lymphocytes (%) (Auto) 20.1 % (9.0-44.0) Monocytes (%) (Auto) 13.0 % (0.0-8.0) Eosinophils (%) (Auto) 3.7 % (0.0-4.0) Basophils (%) (Auto) 0.5 % (0.0-2.0) Neutrophils # (Auto) 6.4 TH/MM3 (1.8-7.7) Lymphocytes # (Auto) 2.1 TH/MM3 (1.0-4.8) Monocytes # (Auto) 1.3 TH/MM3 (0-0.9) Eosinophils # (Auto) 0.4 TH/MM3 (0-0.4) Basophils # (Auto) 0.0 TH/MM3 (0-0.2) CBC Comment DIFF FINAL Differential Comment Prothrombin Time 11.1 SEC (9.8-11.6) Prothromb Time International 1.0 RATIO Ratio Activated Partial 31.0 SEC Thromboplast Time (24.3-30.1) Sodium Level 143 MEQ/L (136-145) Potassium Level 4.3 MEQ/L (3.5-5.1) Chloride Level 109 MEQ/L (98-107) Carbon Dioxide Level 28.3 MEQ/L (21.0-32.0) Anion Gap 6 MEQ/L (5-15) Blood Urea Nitrogen 9 MG/DL (7-18) Creatinine 0.86 MG/DL (0.60-1.30) Estimat Glomerular Filtration 108 ML/MIN Rate (>89) Random Glucose 96 MG/DL (74-106) Calcium Level 9.9 MG/DL (8.5-10.1) Total Bilirubin 0.3 MG/DL (0.2-1.0) Aspartate Amino Transf 18 U/L (15-37) (AST/SGOT) Alanine Aminotransferase 14 U/L (12-78) (ALT/SGPT) Alkaline Phosphatase 99 U/L (45-117) Ammonia 21 MCMOL/L (11-32) Total Protein 7.4 GM/DL (6.4-8.2) Albumin 3.4 GM/DL (3.4-5.0) Lipase 188 U/L (73-393) Urine Color YELLOW (YELLW/STRAW) Urine Turbidity CLEAR (CLEAR) Urine pH 6.0 (5.0-8.5) Urine Specific [place] 1.013 (1.002-1.035) Urine Protein 30 mg/dL (NEG-TRACE) Urine Glucose (UA) NEG mg/dL (NEG) Urine Ketones NEG mg/dL (NEG) Urine Occult Blood NEG (NEG) Urine Nitrite NEG (NEG) Urine Bilirubin NEG (NEG) Urine Urobilinogen LESS THAN 2.0 MG/DL (LESS THAN 2.0) Urine Leukocyte Esterase NEG (NEG) Urine RBC LESS THAN 1 /hpf (0-3) Urine WBC 1 /hpf (0-5) Urine Hyaline Casts 1 /lpf (RARE) Microscopic Urinalysis Comment CULT NOT INDICATED Last Impressions Chest X-Ray 07/07/16 1233 Signed Impressions: Service Date/Time: June 12:37 - CONCLUSION: 1.3 cm nodular density right midlung zone. Recommend chest CT without contrast to evaluate for pulmonary nodule. No other acute cardiopulmonary disease identified. Kyle Ludwig MD Abdomen/Pelvis CT 07/07/16 1233 Signed Impressions: Service Date/Time: June 14:11 - CONCLUSION: 1. Findings most consisting with large pancreatic pseudocyst as described above with second pseudocyst inferior to the body and tail the pancreas. There is no significant ductal dilatation. El Santiago MD Patient with [id number] large pancreatic pseudocyst. Case discussed with Dr. Rodrigues with interventional radiology, patient not a candidate for drainage of pancreatic pseudocyst. No prior admission and most likely marsupialization of the cysts by GI. Call made to [facility] for admission Case reviewed with Dr Bethea who accepts pt to service, request that I call GI to develop plan of care case reviewed with dr rocha who will see patient in consult Critical Care Narrative Aggregate critical care time was 30 minutes. Time to perform other separately billable procedures was not included in the critical care time. My time did not include minutes spent treating any other patients simultaneously or on activities that did not directly contribute to the patient's treatment. The services I provided to this patient were to treat and/or prevent clinically significant deterioration that could result in: , decompensation I provided critical care services requiring my management, as noted below: Chart data review, documentation time, medication orders and management, vital sign assessments/reviewing monitor data, ordering and reviewing lab tests, ordering and interpreting/reviewing x-rays and diagnostic studies, care of the patient and discussion of the patient with the admitting physicians. Diagnosis Primary Impression: Pancreatic cyst Additional Impression: Abdominal pain Admitting Information Admitting Physician Requests: Admit Condition: Stable Karey Ahuja DO Jul 07, 2016 12:40
[2016-07-07] MEDS ORDERED: SODIUM CHLORIDE 0.9% FLUSH 10 ML FLUSH IV FLUSH PRN ×2 (12:45→17:45)
[2016-07-07] MEDS ORDERED: FAMOTIDINE 20 MG/2 ML VIAL IV PUSH ONE (12:45)
[2016-07-07] MEDS ORDERED: MORPHINE SULFATE 4 MG/ML INJ IV PUSH ONE ×2 (12:45→16:00)
[2016-07-07] MEDS ORDERED: ONDANSETRON HCL 4 MG/2 ML VIAL IVP ONE (12:45)
[2016-07-07 13:37] LABS: AUTOMATED NEUTROPHIL # 6.4 TH/MM3 (1.8-7.7); BASOPHIL % 0.5 % (0.0-2.0); EOSINOPHIL # 0.4 TH/MM3 (0-0.4); EOSINOPHIL % 3.7 % (0.0-4.0); HEMATOCRIT 32.4 % (39.0-51.0); HEMO FLAGS DIFF FINAL; LYMPH % 20.1 % (9.0-44.0); LYMPHOCYTE # 2.1 TH/MM3 (1.0-4.8); MEAN CELL VOLUME 82.3 FL (80.0-100.0); MEAN CORPUSCULAR HEMOGLOBIN 26.5 PG (27.0-34.0); MEAN CORPUSCULAR HGB CONC 32.2 % (32.0-36.0); NEUT % 62.7 % (16.0-70.0); PLATELET COUNT 317 TH/MM3 (150-450); RED BLOOD COUNT 3.94 MIL/MM3 (4.50-5.90); RED CELL DISTRIBUTION WIDTH 17.1 % (11.6-17.2); WHITE BLOOD COUNT 10.2 TH/MM3 (4.0-11.0)
[2016-07-07 13:46] LABS: PROTHROMBIN TIME - PATIENT 11.1 SEC (9.8-11.6)
[2016-07-07 13:58] LABS: ALT (GPT) 14 U/L (12-78); ANION GAP 6 MEQ/L (5-15); AST (GOT) 18 U/L (15-37); BICARBONATE 28.3 MEQ/L (21.0-32.0); BLOOD UREA NITROGEN 9 MG/DL (7-18); CHLORIDE 109 MEQ/L (98-107); GLOMERULAR FILTRATION RATE 108 ML/MIN (>89); POTASSIUM 4.3 MEQ/L (3.5-5.1); SODIUM (NA) 143 MEQ/L (136-145)
--- NOTE | 2016-07-07 14:03 | RADRPT ---
EXAM DATE/TIME: 07/07/2016 12:37 [facility] COMPARISON: No previous studies available for comparison. INDICATIONS : Patient has had abdomen pain for two days. MEDICAL HISTORY : Pancreatitis. SURGICAL HISTORY : Appendectomy. ENCOUNTER: Initial ACUITY: 1 day PAIN SCORE: 8/10 LOCATION: Abdomen. FINDINGS: Single AP view of the chest. 1.3 cm nodular density in the right midlung. Lungs otherwise clear. Card iomediastinal silhouette within normal limits. No evidence of pleural effusion or pneumothorax. 3 met allic foreign bodies seen in the left side of the neck. CONCLUSION: 1.3 cm nodular density right midlung zone. Recommend chest CT without contrast to evaluate for pulmon jagjit nodule. No other acute cardiopulmonary disease identified. Kyle Ludwig MD on July 07, 2016 at 14:00 Board Certified Radiologist. This report was verified electronically.
[2016-07-07 14:04] LABS: ALKALINE PHOSPHATASE 99 U/L (45-117); TOTAL BILIRUBIN ADULT 0.3 MG/DL (0.2-1.0)
[2016-07-07] MEDS ORDERED: IOHEXOL 350 MG/ML 10 ML VIAL (for RAD DIAG) IV ONE (14:07)
[2016-07-07 14:34] LABS: BLOOD, URINE NEG (NEG); GLUCOSE,URINE NEG (NEG); HYALINE CAST, URINE 1 /lpf (RARE); KETONE, URINE NEG (NEG); NITRITE,URINE NEG (NEG); URINE COLOR YELLOW (YELLW/STRAW)
[2016-07-07 14:35] LABS: COMMENT (UR) CULT NOT INDICATED; CULTURE IF INDICATED CULT NOT INDICATED
--- NOTE | 2016-07-07 14:40 | RADRPT ---
EXAM DATE/TIME: 07/07/2016 14:11 [facility] COMPARISON: No previous studies available for comparison. INDICATIONS : Abdominal pain and nausea. IV CONTRAST: 100 cc Omnipaque 350 (iohexol) IV ORAL CONTRAST: No oral contrast ingested. RADIATION DOSE: 9.96 CTDIvol (mGy) MEDICAL HISTORY : Pancreatitis. Hypertension. Chronic obstructive pulmonary disease. SURGICAL HISTORY : Appendectomy. ENCOUNTER: Initial ACUITY: 1 week PAIN SCALE: 7/10 LOCATION: Bilateral lower quadrant TECHNIQUE: Volumetric scanning of the abdomen and pelvis was performed. Using automated exposure control and ad justment of the mA and/or kV according to patient size, radiation dose was kept as low as reasonably achievable to obtain optimal diagnostic quality images. FINDINGS: Examination of the lung bases demonstrates no abnormality. No pleural fluid is identified. No pulmona ry nodules are present. The liver and spleen are normal in size and no focal defects are identified. There is a large multilocular fluid collections anterior to the pancreas likely affecting pancreatic pseudocyst measuring in aggregate 18 x 10 x 14 CM. This demonstrates internal septations and heteroge neous density. There is a second smaller pseudocyst measuring 9 x 3 CM inferior to the body and tail of the pancreas which appears to be a separate collection. The adrenal glands and kidneys appear norm al bilaterally. No hydronephrosis or mass lesions are identified. No free fluid is identified. Examination of the pelvis demonstrates no evidence of free fluid or pelvic mass. No abnormally enlarg ed inguinal or retroperitoneal lymph nodes are present. The bladder is unremarkable. There is diverti culosis without evidence of diverticulitis. CONCLUSION: 1. Findings most consisting with large pancreatic pseudocyst as described above with second pseudocys t inferior to the body and tail the pancreas. There is no significant ductal dilatation. El Santiago MD on July 07, 2016 at 14:34 Board Certified Radiologist. This report was verified electronically.
[2016-07-07] MEDS ORDERED: CLON0.2T PO (15:09)
[2016-07-07] MEDS ORDERED: AMLO2.5T PO (15:09)
[2016-07-07] MEDS ORDERED: amLODIPine BESYLATE 5 MG TAB PO ONE (15:30)
--- NOTE | 2016-07-07 16:21 | PD.CONS ---
HPI History of Present Illness This is a 66 year old male who came to the ER for evaluation of abdominal pain. He actually had a prolonged hospitalization in April and May for acute on chronic pancreatitis secondary to alcohol abuse. He was evaluated by our service at that time. His pancreatitis was complicated by development of persistent fevers, acute renal failure, acute respiratory failure, ileus. He had a CT Abdomen and pelvis without IV contrast (05/12/16)--> Severe peripancreatic inflammatory changes again seen. No organized rounded fluid collections identified. Left lower lobe atelectasis/consolidation and small pleural effusion. During that hospitalization, he had a G/J tube placement for post pyloric feedings. He was then discharged to [facility] for intensive rehabilitation from 05/31- 06/14. The patient tells me that his G/J tube was removed 3 days prior to his discharge home. Since his discharge, he has not had any alcohol intake. He started having mild abdominal pain and distention about 3 days after his last discharge. Initially this was and intermittent, but has progressed to more frequent and severe at times. He describes this as a dull ache in his mid abdominal area that goes around to his back. It is aggravated by food intake at times, but at other times, this does not seem to be related to food. He has associated nausea without vomiting. He denies any fevers or chills. He states he eats good at times, but definitely has had a decreased appetite since he has been in the hospital and has lost about 10-15 lbs. He reports that he is moving his bowels well and is not having diarrhea. He denies fevers or chills. (Fernanda Zhang) PFSH Past Medical History Severe pancreatitis HTN DM COPD Sz D/O, patient feels that this is related to ETOH use ( he has since quit) Gout Acute renal failure, resolved Hx respiratory failure Past Surgical History Appendectomy Vascath placement Tracheostomy placement Bone spur resection from right arm Colonoscopy (Fernanda Zhang) Coded Allergies: Penicillin (Verified Allergy, Severe, HIVES, 07/07/16) Medications Allergies Coded Allergies Type Severity Reaction Last Updated Verified Penicillin Allergy Severe HIVES 07/07/16 Yes Active Scripts Medications Dose Route/Sig Days Date Category Dose Instructions Clonidine (Clonidine HCl) 0.2 Mg Tab 0.2 Mg PO BID 07/07/16 Reported Amlodipine (Amlodipine Besylate) 2.5 Mg Tab 2.5 Mg PO DAILY 07/07/16 Reported Ambien (Zolpidem Tartrate) 5 Mg Tab 5 Mg PO HS PRN 06/14/16 Rx do not take within 2 hours of pain medication Daliresp (Roflumilast) 500 Mcg Tab 500 Mcg PO DAILY 30 06/14/16 Rx Potassium Chloride Microencaps 20 Meq Tab 10 Meq PO EVERY OTHER DAY 06/14/16 Rx Dilantin (Phenytoin Extended) 100 Mg Cap 100 Mg PO TID 30 06/14/16 Rx Protonix (Pantoprazole Sodium) 20 Mg Tab 20 Mg PO BID 30 06/14/16 Rx Oxycodone (Oxycodone HCl) 5 Mg Tab 5 Mg PO Q4H PRN 06/14/16 Rx Bentyl (Dicyclomine HCl) 20 Mg Tab 20 Mg PO TID 10 06/14/16 Rx Bumetanide 1 Mg Tab 1 Mg PO 1800 30 06/14/16 Rx Symbicort Inh (Budesonide/Formoterol Fumarate) 160-4.5 Mcg/Act Aero 2 Puff INH Q12HR 30 06/14/16 Rx Ventolin Hfa 18 GM Inh (Albuterol Sulfate) 90 Mcg/Act Aer 2 Puff INH Q4H PRN 30 06/14/16 Rx Potassium Chloride Liq (Potassium Chloride) 10 % Betty 20 Meq PEG DAILY 05/30/16 Rx Oxycodone Liq (Oxycodone HCl) 20 Mg/Ml Conc 5 Mg NG Q4H PRN 05/30/16 Rx Bumetanide 1 Mg Tab 1 Mg PO BID@,18 05/30/16 Rx Nitroglycerin SL (Nitroglycerin) 0.4 Mg Subl 0.4 Mg SL DIRECTED PRN 04/13/16 Reported ONE TABLET UNDER THE TONGUE NEEDED FOR CHEST PAIN, MAY REPEAT EVERY FIVE MINUTES FOR A TOTAL OF 3 DOSES OR CALL 911 IF NO RELIEF Spiriva Handihaler (Tiotropium Inh) 18 Mcg Cap 18 Mcg INH DAILY 04/13/16 Reported 1 capsule = 18 mcg Dilantin (Phenytoin Extended) 100 Mg Cap 300 Mg PO DAILY 04/13/16 Reported Omeprazole 40 Mg Cap 40 Mg PO DAILY 04/13/16 Reported Symbicort Inh (Budesonide/Formoterol Fumarate) 160-4.5 Mcg/Act Aero 2 Puff INH Q12HR 04/13/16 Reported Albuterol Neb (Albuterol Sulfate) 2.5 Mg/0.5 Ml Neb 2.5 Mg NEB QID NEB PRN 04/13/16 Reported Note: The Albuterol Sulfate Inhalation Solution is concentrated and must be diluted. Read complete instructions carefully before using. Family History No family hx of pancreatitis. Father from unknown type of cancer Social History Quit smoking and drinking ETOH when he was hospitalized this month. (Fernanda Zhang) Review of Systems Constitutional: COMPLAINS OF: Fatigue, Weight loss, Change in appetite, DENIES : Fever, Chills Respiratory: DENIES: Cough Cardiovascular: DENIES: Chest pain Gastrointestinal: COMPLAINS OF: Abdominal pain, Nausea, Anorexia, Swelling of Abdomen, DENIES: Black stools, Bloody stools, Constipation, Diarrhea, Vomiting , Heartburn, Hematemesis Musculoskeletal: COMPLAINS OF: Back pain Integumentary: DENIES: Abnormal pigmentation Hematologic/lymphatic: DENIES: Bruising Neurologic: DENIES: Headache Psychiatric: DENIES: Confusion (Fernanda Zhang) GI Exam Vitals I&O Vital Signs Date Time Temp Pulse Resp B/P Pulse Ox O2 Delivery O2 Flow Rate FiO2 07/07/16 16:05 80 16 171/95 98 Room Air 07/07/16 15:00 77 18 192/105 100 Room Air 07/07/16 14:40 16 07/07/16 14:00 80 17 196/98 99 Room Air 07/07/16 13:00 80 17 195/98 96 Room Air 07/07/16 12:45 72 17 197/91 100 Room Air 07/07/16 12:29 18 07/07/16 11:36 97.9 74 20 177/90 97 Room Air I/O 07/06/16 07/06/16 07/06/16 07/07/16 07/07/16 07/07/16 07:00 15:00 23:00 07:00 15:00 23:00 Intake Total 1000 ml Balance 1000 ml IV Total 1000 ml Imaging Last Impressions Chest X-Ray 07/07/16 [id number] Signed Impressions: Service Date/Time: June 12:37 - CONCLUSION: 1.3 cm nodular density right midlung zone. Recommend chest CT without contrast to evaluate for pulmonary nodule. No other acute cardiopulmonary disease identified. Kyle Ludwig MD Abdomen/Pelvis CT 07/07/16 1233 Signed Impressions: Service Date/Time: June 14:11 - CONCLUSION: 1. Findings most consisting with large pancreatic pseudocyst as described above with second pseudocyst inferior to the body and tail the pancreas. There is no significant ductal dilatation. El Santiago MD Laboratory Test 07/07/16 07/07/16 13:15 14:05 White Blood Count 10.2 TH/MM3 Red Blood Count 3.94 MIL/MM3 Hemoglobin 10.4 GM/DL Hematocrit 32.4 % Mean Corpuscular Volume 82.3 FL Mean Corpuscular Hemoglobin 26.5 PG Mean Corpuscular Hemoglobin 32.2 % Concent Red Cell Distribution Width 17.1 % Platelet Count 317 TH/MM3 Mean Platelet Volume 8.4 FL Neutrophils (%) (Auto) 62.7 % Lymphocytes (%) (Auto) 20.1 % Monocytes (%) (Auto) 13.0 % Eosinophils (%) (Auto) 3.7 % Basophils (%) (Auto) 0.5 % Neutrophils # (Auto) 6.4 TH/MM3 Lymphocytes # (Auto) 2.1 TH/MM3 Monocytes # (Auto) 1.3 TH/MM3 Eosinophils # (Auto) 0.4 TH/MM3 Basophils # (Auto) 0.0 TH/MM3 CBC Comment DIFF FINAL Differential Comment Prothrombin Time 11.1 SEC Prothromb Time International 1.0 RATIO Ratio Activated Partial 31.0 SEC Thromboplast Time Sodium Level 143 MEQ/L Potassium Level 4.3 MEQ/L Chloride Level 109 MEQ/L Carbon Dioxide Level 28.3 MEQ/L Anion Gap 6 MEQ/L Blood Urea Nitrogen 9 MG/DL Creatinine 0.86 MG/DL Estimat Glomerular Filtration 108 ML/MIN Rate Random Glucose 96 MG/DL Calcium Level 9.9 MG/DL Total Bilirubin 0.3 MG/DL Aspartate Amino Transf 18 U/L (AST/SGOT) Alanine Aminotransferase 14 U/L (ALT/SGPT) Alkaline Phosphatase 99 U/L Ammonia 21 MCMOL/L Total Protein 7.4 GM/DL Albumin 3.4 GM/DL Lipase 188 U/L Urine Color YELLOW Urine Turbidity CLEAR Urine pH 6.0 Urine Specific [place] 1.013 Urine Protein 30 mg/dL Urine Glucose (UA) NEG mg/dL Urine Ketones NEG mg/dL Urine Occult Blood NEG Urine Nitrite NEG Urine Bilirubin NEG Urine Urobilinogen LESS THAN 2.0 MG/DL Urine Leukocyte Esterase NEG Urine RBC LESS THAN 1 /hpf Urine WBC 1 /hpf Urine Hyaline Casts 1 /lpf Microscopic Urinalysis Comment CULT NOT INDICATED Physical Examination HEENT: Normocephalic; atraumatic; no jaundice. CHEST: Chest is clear to auscultation and percussion. CARDIAC: RRR ABDOMEN: Soft, distended, mild diffuse tenderness; no hepatosplenomegaly; bowel sounds are present in all four quadrants. EXTREMITIES: No clubbing, cyanosis, or edema. SKIN: Normal; no rash; no jaundice. [employer]: No focal deficits; alert and oriented times three. (Fernanda Zhang) Assessment and Plan Plan ASSESSMENT: - Large Pseudocyst. Pt had a prolonged hospitalization in April and May for acute on chronic pancreatitis secondary to alcohol abuse at which time he required HD, Intubation and mechanical ventilation, G/J tube placement. He was extubated, improved and discharged to [facility] from 05/31- 06/14. The patient tells me that his G/J tube was removed 3 days prior to his discharge home. No ETOH use. Started having mild abdominal pain and distention about 3 days after his last discharge. He has associated nausea without vomiting. No fevers or chills. He states he eats good at times, but definitely has had a decreased appetite since he has been in the hospital and has lost about 10 -15 lbs. He reports that he is moving his bowels. Abdomen/Pelvis CT (07/07/16)----> 1. Findings most consisting with large pancreatic pseudocyst as described above with second pseudocyst inferior to the body and tail the pancreas. There is no significant ductal dilatation. Afebrile. Afebrile. LFT normal. - Abdominal pain, nausea secondary to above - Decreased appetite, weight loss. 10-15 lbs. PLAN: - Clear liquids - PPI - Monitor labs - Further recommendations to follow after patient is seen by Dr. Vogt ( Fernanda Zhang) Physician Comments Patient was seen and examined Agree with above Continue with current supportive care Monitor labs Apparently the patient developed symptoms after discharge from rehabilitation and this probably correlates with the pseudocysts enlarging the patient is eager to go home we will advance his diet we will give him something for appetite and pain and we will see how he does if he is stable then he may be discharged from a GI standpoint follow-up with GI in 2 weeks but if at any point in time his symptoms worse and he is to come back and then we will seriously consider drainage at that point in time there is a small chance that this may start shrinking in the near future (Joaquín Vogt MD) Fernanda Zhang Jul 07, 2016 16:21 Joaquín Vogt MD Jul 07, 2016 20:35
--- NOTE | 2016-07-07 17:43 | HHI.HP ---
[facility] ELIEL Liu Admission Diagnosis Large Pancreatic Pseudocyst Diagnoses: Chief Complaint: Abdominal pain Travel History International Travel<30 Days: No Contact w/Intl Traveler <30 Da: No Traveled to Known Affected Are: No History of Present Illness 66-year-old male with a past medical history of COPD, HTN, DM, seizures, history of pancreatitis, GERD who presented with abdominal pain. The patient states that for the past month or 2 he's been having intermittent mid abdomen abdominal pain. He states severity varies, but can be as severe as 10/10. He denies any nausea, vomiting, chest pain, diarrhea, constipation. He has COPD, shortness of breath is at baseline. His previous admitted in April for pancreatitis. He does report that he has ceased smoking and drinking since April. Review of Systems Except as stated in HPI: all other systems reviewed are Neg Past Family Social History Past Medical History Severe pancreatitis HTN DM COPD Sz D/O, possibly related to alcohol Gout History of Acute renal failure, resolved Hx of respiratory failure Past Surgical History Appendectomy Vascath placement Tracheostomy placement Bone spur resection from right arm Colonoscopy Reported Medications Ambien (Zolpidem Tartrate) 5 Mg Tab 5 Mg PO HS PRN do not take within 2 hours of pain medication Daliresp (Roflumilast) 500 Mcg Tab 500 Mcg PO DAILY 30 Days Potassium Chloride Microencaps 20 Meq Tab 10 Meq PO EVERY OTHER DAY Dilantin (Phenytoin Extended) 100 Mg Cap 100 Mg PO TID 30 Days Protonix (Pantoprazole Sodium) 20 Mg Tab 20 Mg PO BID 30 Days Oxycodone (Oxycodone HCl) 5 Mg Tab 5 Mg PO Q4H PRN Bentyl (Dicyclomine HCl) 20 Mg Tab 20 Mg PO TID 10 Days Bumetanide 1 Mg Tab 1 Mg PO 1800 30 Days Symbicort Inh (Budesonide/Formoterol Fumarate) 160-4.5 Mcg/Act Aero 2 Puff INH Q12HR 30 Days Ventolin Hfa 18 GM Inh (Albuterol Sulfate) 90 Mcg/Act Aer 2 Puff INH Q4H PRN 30 Days Potassium Chloride Liq (Potassium Chloride) 10 % Betty 20 Meq PEG DAILY Oxycodone Liq (Oxycodone HCl) 20 Mg/Ml Conc 5 Mg NG Q4H PRN Bumetanide 1 Mg Tab 1 Mg PO BID@,18 Reported Clonidine (Clonidine HCl) 0.2 Mg Tab 0.2 Mg PO BID Amlodipine (Amlodipine Besylate) 2.5 Mg Tab 2.5 Mg PO DAILY Nitroglycerin SL (Nitroglycerin) 0.4 Mg Subl 0.4 Mg SL DIRECTED PRN ONE TABLET UNDER THE TONGUE NEEDED FOR CHEST PAIN, MAY REPEAT EVERY FIVE MINUTES FOR A TOTAL OF 3 DOSES OR CALL 911 IF NO RELIEF Spiriva Handihaler (Tiotropium Inh) 18 Mcg Cap 18 Mcg INH DAILY 1 capsule = 18 mcg Dilantin (Phenytoin Extended) 100 Mg Cap 300 Mg PO DAILY Omeprazole 40 Mg Cap 40 Mg PO DAILY Symbicort Inh (Budesonide/Formoterol Fumarate) 160-4.5 Mcg/Act Aero 2 Puff INH Q12HR Albuterol Neb (Albuterol Sulfate) 2.5 Mg/0.5 Ml Neb 2.5 Mg NEB QID NEB PRN Note: The Albuterol Sulfate Inhalation Solution is concentrated and must be diluted. Read complete instructions carefully before using. Allergies: Coded Allergies: Penicillin (Verified Allergy, Severe, HIVES, 07/07/16) Active Ordered Medications Current Medications Medications (Trade) Dose Ordered Sig/Tamera Route Start Time Stop Time Status Last Admin (NS Flush) 2 ml UNSCH PRN IV FLUSH 07/07/16 12:45 (Protonix Inj) 40 mg Q24H IV PUSH 07/07/16 18:00 07/07/16 17:28 Family History Mother had hypertension and diabetes Father had hypertension and some kind of cancer Social History Quit smoking and drinking ETOH in April Physical Exam Vital Signs Vital Signs Date Time Temp Pulse Resp B/P Pulse Ox O2 Delivery O2 Flow Rate FiO2 07/07/16 17:19 70 16 167/100 98 Room Air 07/07/16 16:05 80 16 171/95 98 Room Air 07/07/16 15:00 77 18 192/105 100 Room Air 07/07/16 14:40 16 07/07/16 14:00 80 17 196/98 99 Room Air 07/07/16 13:00 80 17 195/98 96 Room Air 07/07/16 12:45 72 17 197/91 100 Room Air 07/07/16 12:29 18 07/07/16 11:36 97.9 74 20 177/90 97 Room Air Physical Exam GENERAL: Well-developed well-nourished. In no acute distress. SKIN: Warm and dry. No lesions noted. HEENT: Normocephalic. Pupils equal and round. Mucous membranes pink and moist. CARDIOVASCULAR: Regular rate and rhythm with ectopic beats. No murmur appreciated. RESPIRATORY: No accessory muscle use. Clear to auscultation. Coarse basilar crackles. GASTROINTESTINAL: Abdomen soft, tender to light touch, mild to moderate distention. Bowel sounds x4. MUSCULOSKELETAL: No obvious deformities. No clubbing or cyanosis. No edema. NEUROLOGICAL: Awake and alert. No focal neurological deficits. Moves upper and lower extremities spontaneously. Normal speech. PSYCHIATRIC: Appropriate mood and affect; insight and judgment normal. Laboratory Laboratory Tests Test 07/07/16 07/07/16 13:15 14:05 White Blood Count 10.2 Red Blood Count 3.94 Hemoglobin 10.4 Hematocrit 32.4 Mean Corpuscular Volume 82.3 Mean Corpuscular Hemoglobin 26.5 Mean Corpuscular Hemoglobin 32.2 Concent Red Cell Distribution Width 17.1 Platelet Count 317 Mean Platelet Volume 8.4 Neutrophils (%) (Auto) 62.7 Lymphocytes (%) (Auto) 20.1 Monocytes (%) (Auto) 13.0 Eosinophils (%) (Auto) 3.7 Basophils (%) (Auto) 0.5 Neutrophils # (Auto) 6.4 Lymphocytes # (Auto) 2.1 Monocytes # (Auto) 1.3 Eosinophils # (Auto) 0.4 Basophils # (Auto) 0.0 CBC Comment DIFF FINAL Differential Comment Prothrombin Time 11.1 Prothromb Time International 1.0 Ratio Activated Partial 31.0 Thromboplast Time Sodium Level 143 Potassium Level 4.3 Chloride Level 109 Carbon Dioxide Level 28.3 Anion Gap 6 Blood Urea Nitrogen 9 Creatinine 0.86 Estimat Glomerular Filtration 108 Rate Random Glucose 96 Calcium Level 9.9 Total Bilirubin 0.3 Aspartate Amino Transf 18 (AST/SGOT) Alanine Aminotransferase 14 (ALT/SGPT) Alkaline Phosphatase 99 Ammonia 21 Total Protein 7.4 Albumin 3.4 Lipase 188 Urine Color YELLOW Urine Turbidity CLEAR Urine pH 6.0 Urine Specific [place] 1.013 Urine Protein 30 Urine Glucose (UA) NEG Urine Ketones NEG Urine Occult Blood NEG Urine Nitrite NEG Urine Bilirubin NEG Urine Urobilinogen LESS THAN 2.0 Urine Leukocyte Esterase NEG Urine RBC LESS THAN 1 Urine WBC 1 Urine Hyaline Casts 1 Microscopic Urinalysis Comment CULT NOT INDICATED Result Diagram: 07/07/16 1315 07/07/16 1315 Imaging Last Impressions Chest X-Ray 07/07/16 1233 Signed Impressions: Service Date/Time: June 12:37 - CONCLUSION: 1.3 cm nodular density right midlung zone. Recommend chest CT without contrast to evaluate for pulmonary nodule. No other acute cardiopulmonary disease identified. Kyle Ludwig MD Abdomen/Pelvis CT 07/07/16 1233 Signed Impressions: Service Date/Time: June 14:11 - CONCLUSION: 1. Findings most consisting with large pancreatic pseudocyst as described above with second pseudocyst inferior to the body and tail the pancreas. There is no significant ductal dilatation. El Santiago MD Assessment and Plan Assessment and Plan 66-year-old male with a past medical history of COPD, HTN, DM, seizures, history of pancreatitis, GERD who presented with abdominal pain Abdominal pain/Large pancreatic pseudocyst Likely secondary to recent pancreatitis, lipase currently within normal limits. -GI consulted, appreciate input -May benefit from drainage if cyst location is amenable to it -Continue home oxycodone as needed for pain as well as IV morphine for breakthrough -IV PPI -Continue home dicyclomine -Diet per GI, currently clear liquids -IVF COPD: Chronic, not in acute exacerbation. Continue home bowel rest, Spiriva, Symbicort, albuterol. O2 as needed. Hypertension: Not well controlled. Continue home amlodipine, Bumex, clonidine. Additional clonidine as needed. Monitor and adjust meds as needed. DVT prophylaxis: SCDs Written by Adair Perez, acting as scribe for Dr. Bethea on 07/07/16 at 17:43. Discussed Condition With Patient with friend and RN at bedside Adair Perez Jul 07, 2016 17:43 Chelsea Bethea MD Jul 08, 2016 15:12
[2016-07-07] MEDS ORDERED: NALOXONE HCL 0.4 MG/ML AMP IV PRN (17:45)
[2016-07-07] MEDS ORDERED: ZOLPIDEM TARTRATE 5 MG TAB PO PRN (17:45)
[2016-07-07] MEDS ORDERED: ACETAMINOPHEN 325 MG TAB PO PRN (17:45)
[2016-07-07] MEDS ORDERED: ONDANSETRON HCL 4 MG/2 ML VIAL IVP PRN (17:45)
[2016-07-07] MEDS ORDERED: MORPHINE SULFATE 4 MG/ML INJ IV PUSH PRN (17:45)
[2016-07-07] MEDS ORDERED: MAGNESIUM HYDROXIDE SUSP 30 ML CUP PO PRN (17:45)
[2016-07-07] MEDS ORDERED: RESP: ALBUTEROL CONC 2.5 MG/0.5 ML NEB NEB PRN (17:45)
[2016-07-07] MEDS ORDERED: PANTOPRAZOLE SODIUM 40 MG VIAL IV PUSH SCH (18:00)
[2016-07-07] MEDS: PHENYTOIN SODIUM 100 MG CAP PO SCH (18:38)
[2016-07-07] MEDS: DICYCLOMINE HCL 20 MG TAB PO SCH (18:38)
[2016-07-07] MEDS: BUMETANIDE 1 MG TAB PO SCH (18:38)
[2016-07-07] MEDS: BUDESONIDE-FORMOTEROL 160/4.5 MCG INHALER INH SCH (20:12)
[2016-07-07] MEDS ORDERED: cloNIDine HCL 0.2 MG TAB PO SCH (21:00)
[2016-07-07] MEDS ORDERED: DRONABINOL 2.5 MG CAP PO SCH (21:00)
[2016-07-07] MEDS ORDERED: SODIUM CHLORIDE 0.9% FLUSH 10 ML FLUSH IV FLUSH SCH (21:00)
[2016-07-08] VITALS: BP 99/52; PULSE 56; RESP 18; TEMP 97.2; O2SAT 96
[2016-07-08 01:01] VITALS: BP 106/60; PULSE 62
[2016-07-08 04:00] VITALS: BP 102/54; PULSE 62; RESP 18; TEMP 96.4; O2SAT 92
[2016-07-08 06:46] LABS: AUTOMATED NEUTROPHIL # 4.9 TH/MM3 (1.8-7.7); BASOPHIL # 0.1 TH/MM3 (0-0.2); BASOPHIL % 0.6 % (0.0-2.0); EOSINOPHIL # 0.5 TH/MM3 (0-0.4); EOSINOPHIL % 5.6 % (0.0-4.0); HEMATOCRIT 26.6 % (39.0-51.0); HEMO FLAGS DIFF FINAL; LYMPHOCYTE # 2.1 TH/MM3 (1.0-4.8); MEAN CELL VOLUME 81.6 FL (80.0-100.0); MEAN CORPUSCULAR HEMOGLOBIN 27.1 PG (27.0-34.0); MEAN CORPUSCULAR HGB CONC 33.2 % (32.0-36.0); MONO % 13.1 % (0.0-8.0); NEUT % 56.7 % (16.0-70.0); PLATELET COUNT 262 TH/MM3 (150-450); RED BLOOD COUNT 3.26 MIL/MM3 (4.50-5.90); RED CELL DISTRIBUTION WIDTH 16.8 % (11.6-17.2); WHITE BLOOD COUNT 8.6 TH/MM3 (4.0-11.0)
[2016-07-08 07:42] LABS: ALKALINE PHOSPHATASE 83 U/L (45-117); ALT (GPT) 10 U/L (12-78); ANION GAP 6 MEQ/L (5-15); AST (GOT) 13 U/L (15-37); BICARBONATE 26.7 MEQ/L (21.0-32.0); BLOOD UREA NITROGEN 11 MG/DL (7-18); CHLORIDE 108 MEQ/L (98-107); GLOMERULAR FILTRATION RATE 94 ML/MIN (>89); POTASSIUM 3.6 MEQ/L (3.5-5.1); SODIUM (NA) 141 MEQ/L (136-145); TOTAL BILIRUBIN ADULT 0.2 MG/DL (0.2-1.0)
[2016-07-08 08:00] VITALS: BP 107/53; PULSE 60; RESP 18; TEMP 98; O2SAT 94
[2016-07-08] MEDS: BUDESONIDE-FORMOTEROL 160/4.5 MCG INHALER INH SCH (08:03)
[2016-07-08] MEDS: DICYCLOMINE HCL 20 MG TAB PO SCH (08:05)
[2016-07-08] MEDS: BUMETANIDE 1 MG TAB PO SCH (08:05)
[2016-07-08] MEDS: PHENYTOIN SODIUM 100 MG CAP PO SCH (08:05)
[2016-07-08] MEDS ORDERED: TIOTROPIUM BROMIDE 18 MCG INH INH SCH (09:00)
[2016-07-08] MEDS ORDERED: ROFLUMILAST 500 MCG TAB PO SCH (09:00)
[2016-07-08] MEDS ORDERED: amLODIPine BESYLATE 5 MG TAB PO SCH (09:00)
[2016-07-08 10:21] VITALS: O2SAT 95
--- NOTE | 2016-07-08 11:04 | HHI.GIFU ---
Subjective Remarks Resting in bed. Feeling much better. Pain improved. Distention improved. No n/v. Tolerating diet. Hoping to go home. Denies any melena/hematochezia. ( Fernanda Zhang) Objective Vitals I&O Vital Signs Date Time Temp Pulse Resp B/P Pulse Ox O2 Delivery O2 Flow Rate FiO2 07/08/16 10:21 95 21 07/08/16 08:00 98.0 60 18 107/53 94 07/08/16 07:30 Room Air 07/08/16 04:00 96.4 62 18 102/54 92 07/08/16 01:01 62 106/60 07/08/16 00:00 97.2 56 18 99/52 96 07/07/16 20:15 Room Air 07/07/16 20:00 82.0 82 20 141/75 95 07/07/16 17:49 96 21 07/07/16 17:19 70 16 167/100 98 Room Air 07/07/16 16:05 80 16 171/95 98 Room Air 07/07/16 15:00 77 18 192/105 100 Room Air 07/07/16 14:40 16 07/07/16 14:00 80 17 196/98 99 Room Air 07/07/16 13:00 80 17 195/98 96 Room Air 07/07/16 12:45 72 17 197/91 100 Room Air 07/07/16 12:29 18 07/07/16 11:36 97.9 74 20 177/90 97 Room Air I/O 07/07/16 07/07/16 07/07/16 07/08/16 07/08/16 07/08/16 07:00 15:00 23:00 07:00 15:00 23:00 Intake Total 1800 ml 400 ml Output Total 450 ml 350 ml Balance 1350 ml 50 ml Intake Oral 800 ml 400 ml IV Total 1000 ml Output Urine Total 450 ml 350 ml Laboratory Laboratory Tests Test 07/07/16 07/07/16 07/08/16 13:15 14:05 05:25 White Blood Count 10.2 8.6 Red Blood Count 3.94 3.26 Hemoglobin 10.4 8.8 Hematocrit 32.4 26.6 Mean Corpuscular Volume 82.3 81.6 Mean Corpuscular Hemoglobin 26.5 27.1 Mean Corpuscular Hemoglobin 32.2 33.2 Concent Red Cell Distribution Width 17.1 16.8 Platelet Count 317 262 Mean Platelet Volume 8.4 8.7 Neutrophils (%) (Auto) 62.7 56.7 Lymphocytes (%) (Auto) 20.1 24.0 Monocytes (%) (Auto) 13.0 13.1 Eosinophils (%) (Auto) 3.7 5.6 Basophils (%) (Auto) 0.5 0.6 Neutrophils # (Auto) 6.4 4.9 Lymphocytes # (Auto) 2.1 2.1 Monocytes # (Auto) 1.3 1.1 Eosinophils # (Auto) 0.4 0.5 Basophils # (Auto) 0.0 0.1 CBC Comment DIFF FINAL DIFF FINAL Differential Comment Prothrombin Time 11.1 Prothromb Time International 1.0 Ratio Activated Partial 31.0 Thromboplast Time Sodium Level 143 141 Potassium Level 4.3 3.6 Chloride Level 109 108 Carbon Dioxide Level 28.3 26.7 Anion Gap 6 6 Blood Urea Nitrogen 9 11 Creatinine 0.86 0.97 Estimat Glomerular Filtration 108 94 Rate Random Glucose 96 93 Calcium Level 9.9 8.8 Total Bilirubin 0.3 0.2 Aspartate Amino Transf 18 13 (AST/SGOT) Alanine Aminotransferase 14 10 (ALT/SGPT) Alkaline Phosphatase 99 83 Ammonia 21 Total Protein 7.4 5.8 Albumin 3.4 2.7 Lipase 188 80 Urine Color YELLOW Urine Turbidity CLEAR Urine pH 6.0 Urine Specific [place] 1.013 Urine Protein 30 Urine Glucose (UA) NEG Urine Ketones NEG Urine Occult Blood NEG Urine Nitrite NEG Urine Bilirubin NEG Urine Urobilinogen LESS THAN 2.0 Urine Leukocyte Esterase NEG Urine RBC LESS THAN 1 Urine WBC 1 Urine Hyaline Casts 1 Microscopic Urinalysis Comment CULT NOT INDICATED Imaging Last Impressions Chest X-Ray 07/07/16 1233 Signed Impressions: Service Date/Time: June 12:37 - CONCLUSION: 1.3 cm nodular density right midlung zone. Recommend chest CT without contrast to evaluate for pulmonary nodule. No other acute cardiopulmonary disease identified. Kyle Ludwig MD Abdomen/Pelvis CT 07/07/16 1233 Signed Impressions: Service Date/Time: June 14:11 - CONCLUSION: 1. Findings most consisting with large pancreatic pseudocyst as described above with second pseudocyst inferior to the body and tail the pancreas. There is no significant ductal dilatation. El Santiago MD Physical Exam HEENT: Normocephalic; atraumatic; no jaundice. Throat is clear. NECK: Neck is supple, no JVD, no lymphadenopathy. CHEST: Chest is clear to auscultation and percussion. CARDIAC: RRR ABDOMEN: Soft, mild distention in upper abdomen, improved. nontender; no hepatosplenomegaly; bowel sounds are present in all four quadrants. EXTREMITIES: No clubbing, cyanosis, or edema. SKIN: Normal; no rash; no jaundice. ROTOPRINTER: No focal deficits; alert and oriented times three. (Fernanda Zhang [facility]) Assessment and Plan Plan ASSESSMENT: - Large Pseudocyst. Pt had a prolonged hospitalization in April and May for acute on chronic pancreatitis secondary to alcohol abuse at which time he required HD, Intubation and mechanical ventilation, G/J tube placement. He was extubated, improved and discharged to [facility] from 05/31- 06/14. The patient tells me that his G/J tube was removed 3 days prior to his discharge home. No ETOH use. Started having mild abdominal pain and distention about 3 days after his last discharge. He has associated nausea without vomiting. No fevers or chills. He states he eats good at times, but definitely has had a decreased appetite since he has been in the hospital and has lost about 10-15 lbs. He reports that he is moving his bowels. Abdomen/Pelvis CT (07/07/16)----> 1. Findings most consisting with large pancreatic pseudocyst as described above with second pseudocyst inferior to the body and tail the pancreas. There is no significant ductal dilatation. Afebrile. LFT normal. Clinically, much improved today. No n/v. No abdominal pain. Tolerating diet. Wants to go home. - Abdominal pain, nausea. IMPROVED. - Decreased appetite, weight loss. 10-15 lbs. - Anemia, with drop in Hgb from 10.4--->8.8. No obvious bleeding. No melena. No hematochezia. Likely related to hemodilution vs. lab error. Will get stat HH. If stable, okay to d/c home from GI standpoint. PLAN: - JED - PPI - Stat HH - If HH remains stable, okay to d/c home from GI standpoint with FU as outpatient - No ETOH- pt verbalizes understanding - FU YANELIS 2 weeks - Further recommendations to follow after patient is seen by Dr. Vogt ( Fernanda Zhang) Physician Comments Patient seen and examined Agree with above Continue with current supportive care Monitor labs Follow-up as outpatient probably will need repeat abdominal imaging in 1-3 months depending on symptoms (Joaquín Vogt MD) Fernanda Zhang Jul 08, 2016 11:04 Joaquín Vogt MD Jul 08, 2016 17:28
[2016-07-08 11:37] LABS: REVIEW FLAG FINAL
[2016-07-08 12:29] VITALS: BP 115/62; PULSE 60; RESP 18; TEMP 97.7; O2SAT 95
--- NOTE | 2016-07-08 13:09 | HHI.PR ---
Subjective Remarks Patient resting in bed, abdominal pain is better today,He is afebrile, seen by Benito for discharge hemoglobin stable to follow up as an outpatient Objective Vitals Vital Signs Date Time Temp Pulse Resp B/P Pulse Ox O2 Delivery O2 Flow Rate FiO2 07/08/16 12:29 97.7 60 18 115/62 95 07/08/16 10:21 95 21 07/08/16 08:00 98.0 60 18 107/53 94 07/08/16 07:30 Room Air 07/08/16 04:00 96.4 62 18 102/54 92 07/08/16 01:01 62 106/60 07/08/16 00:00 97.2 56 18 99/52 96 07/07/16 20:15 Room Air 07/07/16 20:00 82.0 82 20 141/75 95 07/07/16 17:49 96 21 07/07/16 17:19 70 16 167/100 98 Room Air 07/07/16 16:05 80 16 171/95 98 Room Air 07/07/16 15:00 77 18 192/105 100 Room Air 07/07/16 14:40 16 07/07/16 14:00 80 17 196/98 99 Room Air I/O 07/07/16 07/07/16 07/07/16 07/08/16 07/08/16 07/08/16 07:00 15:00 23:00 07:00 15:00 23:00 Intake Total 1800 ml 400 ml Output Total 450 ml 350 ml Balance 1350 ml 50 ml Intake Oral 800 ml 400 ml IV Total 1000 ml Output Urine Total 450 ml 350 ml Result Diagram: 07/08/16 1127 07/08/16 0525 Objective Remarks GENERAL: Well-developed well-nourished. In no acute distress. SKIN: Warm and dry. No lesions noted. HEENT: Normocephalic. Pupils equal and round. Mucous membranes pink and moist. CARDIOVASCULAR: Regular rate and rhythm with ectopic beats. No murmur appreciated. RESPIRATORY: No accessory muscle use. Clear to auscultation. Coarse basilar crackles. GASTROINTESTINAL: Abdomen soft, tender to light touch, mild to moderate distention. Bowel sounds x4. MUSCULOSKELETAL: No obvious deformities. No clubbing or cyanosis. No edema. NEUROLOGICAL: Awake and alert. No focal neurological deficits. Moves upper and lower extremities spontaneously. Normal speech. PSYCHIATRIC: Appropriate mood and affect; insight and judgment normal. A/P Assessment and Plan 66-year-old male with a past medical history of COPD, HTN, DM, seizures, history of pancreatitis, GERD who presented with abdominal pain Abdominal pain/Large pancreatic pseudocyst Likely secondary to recent pancreatitis, lipase currently within normal limits. -GI consulted, appreciate input, patient clear today to be discharged home if hemoglobin is stable, to follow up as an outpatient -Continue home oxycodone as needed for pain as well as IV morphine for breakthrough -IV PPI was given -Continue home dicyclomine -Diet per GI, currently clear liquids -IVF COPD: Chronic, not in acute exacerbation. Continue home bowel rest, Spiriva, Symbicort, albuterol. O2 as needed. Hypertension: Relatively better today. Continue home amlodipine, Bumex, clonidine. Additional clonidine as needed. Monitor and adjust meds as needed. DVT prophylaxis: SCDs Discharge Planning Discharge patient to home Condition on discharge: Improved Healthy heart low-fat Diet as tolerated Ad Vida activity Rx written: See med rec Follow-up with primary care physician Chelsea Bethea MD Jul 08, 2016 13:09
--- NOTE | 2016-07-08 16:42 | EKG ---
Date Performed: 07/07/2016 Time Performed: 12:46:05 PTAGE: 66 years EKG: Sinus rhythm NORMAL ECG Compared to prior tracing no significant change PREVIOUS TRACING : 05/15/2016 20.14 DOCTOR: Maru Lechuga Interpretating Date/Time 07/08/2016 16:39:35
[2016-07-27] MEDS ORDERED: REGL5TAB PO (15:15)
== END 2016-07-08 14:06 | disposition home or self-care (01) | DRG 438 ==
LOC: NEPB 11:34 → NEDA 15:57 → N05A 18:20
PROVIDERS: ADMIT Hospitalist; ATTEND Hospitalist
DX: K86.3 Pseudocyst of pancreas (principal); K85.90 Acute pancreatitis without necrosis or infection, unspecified; I48.91 Unspecified atrial fibrillation; J44.9 Chronic obstructive pulmonary disease, unspecified; I11.0 Hypertensive heart disease with heart failure; I50.9 Heart failure, unspecified; E11.9 Type 2 diabetes mellitus without complications; D64.9 Anemia, unspecified; G40.909 Epilepsy, unspecified, not intractable, without status epilepticus; M10.9 Gout, unspecified; J45.909 Unspecified asthma, uncomplicated; G47.30 Sleep apnea, unspecified; K21.9 Gastro-esophageal reflux disease without esophagitis; K86.0 Alcohol-induced chronic pancreatitis; F10.10 Alcohol abuse, uncomplicated
CPT/HCPCS: 71010; 74177; 80053; 81001; 82140; 83690; 85014; 85018; 85025; 85610; 85730; 93005; 96361; 96374; 96375; C9113; J2270; J2405; J7030; Q9967

== ENCOUNTER 2016-09-16 18:25 | Inpatient (IN) | payer OTHER, MEDICARE ==
[~2016-09-16] VITALS: Ht 165.1 cm; Wt 65.8 kg
[~2016-09-16 18:25] MED LIST changes: +AMLO2.5T PO; +CLON0.2T PO; +REGL5TAB PO
[2016-09-16 18:27] VITALS: BP 138/78; PULSE 86; RESP 20; TEMP 97.5; O2SAT 98
--- NOTE | 2016-09-16 18:53 | PD ---
HPI Chief Complaint: GI Complaint Time Seen by Provider: 18:53 Travel History International Travel<30 days: No Contact w/Intl Traveler<30days: No Traveled to known affect area: No History of Present Illness HPI 66-year-old Afro-[place] male presents to emergency department status post abdominal surgery approximately 2 weeks ago at [facility] performed by Dr. Mathias, reportedly for a pancreatic cyst. Patient states he had been doing well up until 4 days ago where he has been having increased abdominal pain, increased nausea, and vomiting with any type of food intake. CT is having bowel movements which are normal. He denies urinary symptoms other than it is darker than usual. Patient has history of renal insufficiency in the past. He states he's been taking Lortab for his pain which has not been effective. He denies fever, chills, or chest pain or shortness of breath. PFSH Past Medical History Hx Anticoagulant Therapy: Yes Anemia: No Arthritis: Yes Asthma: Yes Atrial Fibrillation: Yes Autoimmune Disease: No Blood Disorders: No Anxiety: No Depression: Yes Heart Rhythm Problems: Yes Cancer: No Cardiovascular Problems: Yes High Cholesterol: No Chemotherapy: No Chest Pain: Yes Congestive Heart Failure: Yes COPD: Yes Cerebrovascular Accident: No Diabetes: Yes Diminished Hearing: No Endocrine: Yes Gastrointestinal Disorders: Yes GERD: No Glaucoma: No Gout: Yes Genitourinary: No Headaches: Yes Hepatitis: No Hiatal Hernia: No Hypertension: Yes Immune Disorder: No Implanted Vascular Access Dvce: No Kidney Stones: No Musculoskeletal: No Neurologic: No Psychiatric: No Reproductive: No Respiratory: Yes Immunizations Current: No Migraines: No Myocardial Infarction: No Radiation Therapy: No Renal Failure: No Seizures: Yes Sickle Cell Disease: No Sleep Apnea: Yes Thyroid Disease: No Ulcer: No Past Surgical History Abdominal Surgery: Yes (G-tube insertion) AICD: No Appendectomy: Yes Arteriovenous Shunt: No Body Medical Devices: G-tube Cardiac Surgery: No Cholecystectomy: No Ear Surgery: No Endocrine Surgery: No Eye Surgery: No Genitourinary Surgery: No Gynecologic Surgery: No Insulin Pump: No Joint Replacement: No Neurologic Surgery: No Oral Surgery: Yes (Tooth pulled) Pacemaker: No Thoracic Surgery: No Other Surgery: Yes (appendectomy, bone spur resection, ) Social History Alcohol Use: No (prior ETOH abuse) Tobacco Use: No (quit 2 months ago) Substance Use: No Allergies-Medications (Allergen,Severity, Reaction): Coded Allergies: Penicillin (Verified Allergy, Severe, HIVES, 07/07/16) Reported Meds & Prescriptions Reported Meds & Active Scripts Active Ambien (Zolpidem Tartrate) 5 Mg Tab 5 Mg PO HS PRN do not take within 2 hours of pain medication Daliresp (Roflumilast) 500 Mcg Tab 500 Mcg PO DAILY 30 Days Protonix (Pantoprazole Sodium) 20 Mg Tab 20 Mg PO BID 30 Days Ventolin Hfa 18 GM Inh (Albuterol Sulfate) 90 Mcg/Act Aer 2 Puff INH Q4H PRN 30 Days Reported Potassium Chloride ER (Potassium Chloride) 10 Meq Cap 10 Meq PO DAILY Losartan-Hydrochlorothiazide 100-25 Mg Tab 1 Tab PO DAILY Viagra (Sildenafil Citrate) 50 Mg Tab 50 Mg PO DIRECTED PRN Take 1 tablet (50mg) 30 minutes prior to sexual activity Imodium A-D (Loperamide HCl) 2 Mg Tablet 2-4 Mg PO Q6HR PRN Mobic (Meloxicam) 7.5 Mg Tab 7.5 Mg PO BID [Folic Acid 1MG] 1 Mg PO DAILY Breo Ellipta Inh (Fluticasone/Vilanterol) 100-25 Mcg/Act Inh 1 Puff INH DAILY Use daily at the same time. Allopurinol 300 Mg Tab 300 Mg PO DAILY Metformin (Metformin HCl) 500 Mg Tab 500 Mg PO DAILY With a meal Gabapentin 600 Mg Tab 600 Mg PO TID Vitamin B-1 (Thiamine HCl) 100 Mg Tab 100 Mg PO DAILY Amlodipine (Amlodipine Besylate) 5 Mg Tab 5 Mg PO BID Clonidine (Clonidine HCl) 0.2 Mg Tab 0.2 Mg PO Q12HR Nitroglycerin SL (Nitroglycerin) 0.4 Mg Subl 0.4 Mg SL DIRECTED PRN ONE TABLET UNDER THE TONGUE NEEDED FOR CHEST PAIN, MAY REPEAT EVERY FIVE MINUTES FOR A TOTAL OF 3 DOSES OR CALL 911 IF NO RELIEF Symbicort Inh (Budesonide/Formoterol Fumarate) 160-4.5 Mcg/Act Aero 2 Puff INH Q12HR Albuterol Neb (Albuterol Sulfate) 2.5 Mg/0.5 Ml Neb 2.5 Mg NEB QID NEB PRN Note: The Albuterol Sulfate Inhalation Solution is concentrated and must be diluted. Read complete instructions carefully before using. Review of Systems Except as stated in HPI: all other systems reviewed are Neg General / Constitutional: Positive: Chills, No: Fever Eyes: No: Visual changes HENT: No: Headaches Cardiovascular: No: Chest Pain or Discomfort Respiratory: No: Shortness of Breath Gastrointestinal: Positive: Nausea, Vomiting, Abdominal Pain Genitourinary: No: Dysuria Musculoskeletal: No: Pain Skin: No Rash Neurologic: No: Weakness Psychiatric: No: Depression Endocrine: No: Polydipsia Hematologic/Lymphatic: No: Easy Bruising Physical Exam Narrative GENERAL: Patient appears in mild to moderate distress. SKIN: Warm and dry. Normal color. Poor turgor. Mild tenting. Well-healed central ventral abdominal surgical scar without signs of dehiscence or cellulitis. HEAD: Atraumatic. Normocephalic. EYES: Pupils equal and round. No scleral icterus. No injection or drainage. ENT: No nasal bleeding or discharge. Mucous membranes pink and moist. Pharynx is clear. Airway is patent. NECK: Trachea midline. Supple and nontender without significant lymphadenopathy. CARDIOVASCULAR: Regular rate and rhythm. No murmurs gallops or rubs. RESPIRATORY: No accessory muscle use. Clear to auscultation. Breath sounds equal bilaterally. GASTROINTESTINAL: Abdomen soft, moderate upper epigastric tenderness nondistended. Hepatic and splenic margins not palpable. Bowel sounds present in all quadrants. No CVA tenderness. MUSCULOSKELETAL: Extremities without clubbing, cyanosis, or edema. No obvious deformities. NEUROLOGICAL: Awake and alert. No obvious cranial nerve deficits. Motor grossly within normal limits. Five out of 5 muscle strength in the arms and legs. Normal speech. PSYCHIATRIC: Appropriate mood and affect; insight and judgment normal. Data Data Last Documented VS Vital Signs Date Time Temp Pulse Resp B/P Pulse Ox O2 Delivery O2 Flow Rate FiO2 09/16/16 18:27 97.5 86 20 138/78 98 Room Air Orders Complete Blood Count With Diff (09/16/16 18:53) Comprehensive Metabolic Panel (09/16/16 18:53) Lipase (09/16/16 18:53) Lactic Acid (09/16/16 18:53) Prothrombin Time / Inr (Pt) (09/16/16 18:53) Act Partial Throm Time (Ptt) (09/16/16 18:53) Urinalysis - C+S If Indicated (09/16/16 18:53) Ct Abd/Pel W/O Iv Contrast (09/16/16 18:53) Iv Access Insert/Monitor (09/16/16 18:53) Ecg Monitoring (09/16/16 18:53) Oximetry (09/16/16 18:53) NPO (09/16/16 18:53) Ondansetron Inj (Zofran Inj) (09/16/16 19:00) Sodium Chloride 0.9% Flush (Ns Flush) (09/16/16 19:00) Electrocardiogram (09/16/16 18:53) Hydromorphone Pf Inj (Dilaudid Pf Inj) (09/16/16 19:00) Sodium Chlorid 0.9% 500 Ml Inj (Ns 500 M (09/16/16 19:00) Aztreonam Inj (Azactam Inj) (09/16/16 20:25) Metronidazole 500 Mg Inj (Flagyl 500 Mg (09/16/16 20:25) Admit Order (Ed Use Only) (09/16/16 20:51) Consult Gastroenterology (09/16/16 ) Invasive Rad Dept Consult (09/16/16 ) Labs Laboratory Tests Test 09/16/16 09/16/16 19:11 20:10 White Blood Count 11.3 TH/MM3 Red Blood Count 4.02 MIL/MM3 Hemoglobin 9.9 GM/DL Hematocrit 30.1 % Mean Corpuscular Volume 74.8 FL Mean Corpuscular Hemoglobin 24.5 PG Mean Corpuscular Hemoglobin 32.8 % Concent Red Cell Distribution Width 15.7 % Platelet Count 359 TH/MM3 Mean Platelet Volume 9.7 FL Neutrophils (%) (Auto) 65.1 % Lymphocytes (%) (Auto) 17.5 % Monocytes (%) (Auto) 14.9 % Eosinophils (%) (Auto) 1.7 % Basophils (%) (Auto) 0.8 % Neutrophils # (Auto) 7.3 TH/MM3 Lymphocytes # (Auto) 2.0 TH/MM3 Monocytes # (Auto) 1.7 TH/MM3 Eosinophils # (Auto) 0.2 TH/MM3 Basophils # (Auto) 0.1 TH/MM3 CBC Comment DIFF FINAL Differential Comment Prothrombin Time 12.1 SEC Prothromb Time International 1.1 RATIO Ratio Activated Partial 30.5 SEC Thromboplast Time Sodium Level 141 MEQ/L Potassium Level 3.8 MEQ/L Chloride Level 107 MEQ/L Carbon Dioxide Level 24.0 MEQ/L Anion Gap 10 MEQ/L Blood Urea Nitrogen 16 MG/DL Creatinine 0.98 MG/DL Estimat Glomerular Filtration 93 ML/MIN Rate Random Glucose 113 MG/DL Calcium Level 10.6 MG/DL Total Bilirubin 0.3 MG/DL Aspartate Amino Transf 16 U/L (AST/SGOT) Alanine Aminotransferase 13 U/L (ALT/SGPT) Alkaline Phosphatase 80 U/L Total Protein 7.4 GM/DL Albumin 3.5 GM/DL Lipase 76 U/L Lactic Acid Level 0.9 mmol/L [facility] Medical Decision Making Medical Screen Exam Complete: Yes Emergency Medical Condition: Yes Differential Diagnosis Pancreatitis. Postop complication. Possible abscess. Nausea and vomiting. Renal failure. Narrative Course Patient appears medically stable at time of exam. Labs ordered including CBC, CMP, urinalysis, lactic acid, PT PTT and INR. IV access is obtained and the patient is given 4 mg Zofran IV as well as 1 mg hydromorphone IV. Abdominal CT is ordered without contrast. Last 24 hours Impressions Abdomen/Pelvis CT 09/16/16 1853 Signed Impressions: Service Date/Time: Friday, September 16, 2016 19:30 - CONCLUSION: 1. 11.1 x 7 cm presumed abscess in the upper anterior abdomen at the site of the previous larger pseudocyst seen on July 07. 2. Complex 7.3 x 3.8 cm presumed pseudocyst at the root of the mesentery just above the aortic bifurcation similar in appearance to July 07. Ponce Goode MD 2019 hrs. call was placed to Dr. Ames the process plant operator who sees this patient previously. To discuss the patient. Call returned by Dr. Brambila, and patient was discussed. He recommended admitting the patient and have IR attempted to drain the abscess, otherwise the patient would need to be transferred back to [facility]. He also recommended antibiotics. Patient was started on Azactam, and Flagyl IV. 2030 hrs. Call was placed to the hospitalist for admission. 2044 hrs. patient discussed with hospitalist who agrees on admission. Gastroenterology and IR are consulted. Diagnosis Primary Impression: Pancreatic cyst Additional Impression: Abdominal abscess Condition: Stable Gold Gonsales Sep 16, 2016 18:53
[2016-09-16] MEDS ORDERED: ONDANSETRON HCL 4 MG/2 ML VIAL IVP ONE (19:00)
[2016-09-16] MEDS ORDERED: HYDROmorphone HCL PF 1 MG/ML VIAL IVS ONE (19:00)
[2016-09-16] MEDS ORDERED: SODIUM CHLORID 0.9% 500 ML INJ 500 ML IV ONE (19:00)
[2016-09-16] MEDS ORDERED: SODIUM CHLORIDE 0.9% FLUSH 10 ML FLUSH IV FLUSH PRN ×2 (19:00→21:00)
[2016-09-16] MEDS ORDERED: AMLO5TAB2 PO (19:43)
[2016-09-16] MEDS ORDERED: POTA10CA PO (19:43)
[2016-09-16] MEDS ORDERED: ALLO300T2 PO (19:43)
[2016-09-16] MEDS ORDERED: FLUT1INH INH (19:43)
[2016-09-16] MEDS ORDERED: LOSA100T2 PO (19:43)
[2016-09-16] MEDS ORDERED: METF500T PO (19:43)
[2016-09-16] MEDS ORDERED: FOLIC ACID 1MG PO (19:43)
[2016-09-16] MEDS ORDERED: VITA100T54 PO (19:43)
[2016-09-16] MEDS ORDERED: GABA600T PO (19:43)
[2016-09-16] MEDS ORDERED: LOPE2TAB18 PO (19:43)
[2016-09-16] MEDS ORDERED: VIAG50TA PO (19:43)
[2016-09-16] MEDS ORDERED: MOBI7.5T PO (19:43)
[2016-09-16 19:55] LABS: AUTOMATED NEUTROPHIL # 7.3 TH/MM3 (1.8-7.7); BASOPHIL # 0.1 TH/MM3 (0-0.2); BASOPHIL % 0.8 % (0.0-2.0); EOSINOPHIL # 0.2 TH/MM3 (0-0.4); EOSINOPHIL % 1.7 % (0.0-4.0); HEMATOCRIT 30.1 % (39.0-51.0); HEMO FLAGS DIFF FINAL; LYMPH % 17.5 % (9.0-44.0); MEAN CELL VOLUME 74.8 FL (80.0-100.0); MEAN CORPUSCULAR HEMOGLOBIN 24.5 PG (27.0-34.0); MEAN CORPUSCULAR HGB CONC 32.8 % (32.0-36.0); MONO % 14.9 % (0.0-8.0); NEUT % 65.1 % (16.0-70.0); PLATELET COUNT 359 TH/MM3 (150-450); RED BLOOD COUNT 4.02 MIL/MM3 (4.50-5.90); RED CELL DISTRIBUTION WIDTH 15.7 % (11.6-17.2); WHITE BLOOD COUNT 11.3 TH/MM3 (4.0-11.0)
--- NOTE | 2016-09-16 20:02 | RADRPT ---
EXAM DATE/TIME: 09/16/2016 19:30 [place] COMPARISON: CT ABDOMEN & PELVIS W CONTRAST, July 07, 2016, 14:11. INDICATIONS : Post -op pancreatic cyst, complains of pain and vomiting. ORAL CONTRAST: No oral contrast ingested. RADIATION DOSE: 6.91 CTDIvol (mGy) MEDICAL HISTORY : Hypertension. Diabetes mellitus type 1. Renal failure, chronic. SURGICAL HISTORY : Appendectomy. ENCOUNTER: Initial ACUITY: 1 day PAIN SCALE: 4/10 LOCATION: lower quadrant TECHNIQUE: Volumetric scanning of the abdomen and pelvis was performed. Using automated exposure control and ad justment of the mA and/or kV according to patient size, radiation dose was kept as low as reasonably achievable to obtain optimal diagnostic quality images. FINDINGS: There is an 11.1 x 7 cm complex air and fluid collection in the anterior abdomen at the site of the p revious pseudocyst most characteristic of an abscess. There is a second complex loculated fluid colle ction more inferiorly just above the aortic bifurcation at the root of the mesentery measuring about 7.3 x 3.8 cm, likely a complex pseudocyst similar to July 07 examination. No free intraperitoneal air. No bowel obstruction. Lung bases clear. Note is findings in the liver, spleen, adrenals or kidneys. Above-described presume d abscess is contiguous with the anterior aspect of the pancreas. There is previous laparotomy. No ac lumbee bony abnormalities. CONCLUSION: 1. 11.1 x 7 cm presumed abscess in the upper anterior abdomen at the site of the previous larger pseu docyst seen on July 07. 2. Complex 7.3 x 3.8 cm presumed pseudocyst at the root of the mesentery just above the aortic bifurc ation similar in appearance to July 07. Ponce Goode MD on September 16, 2016 at 19:53 Board Certified Radiologist. This report was verified electronically.
[2016-09-16 20:06] LABS: ALT (GPT) 13 U/L (12-78); ANION GAP 10 MEQ/L (5-15); AST (GOT) 16 U/L (15-37); BLOOD UREA NITROGEN 16 MG/DL (7-18); CHLORIDE 107 MEQ/L (98-107); GLOMERULAR FILTRATION RATE 93 ML/MIN (>89); POTASSIUM 3.8 MEQ/L (3.5-5.1); SODIUM (NA) 141 MEQ/L (136-145)
[2016-09-16 20:09] LABS: ALKALINE PHOSPHATASE 80 U/L (45-117); TOTAL BILIRUBIN ADULT 0.3 MG/DL (0.2-1.0)
[2016-09-16] MEDS ORDERED: AZTREONAM INJ 2,000 MG in SODIUM CHLORIDE 0.9% INJ 100 ML IV STA (20:25)
[2016-09-16] MEDS ORDERED: metroNIDAZOLE 500 MG INJ 100 ML IV STA (20:25)
[2016-09-16 20:26] LABS: APTT (PATIENT) 30.5 SEC (24.3-30.1); INTERNATIONAL NORMALIZED RATIO 1.1 RATIO; PROTHROMBIN TIME - PATIENT 12.1 SEC (9.8-11.6)
[2016-09-16] MEDS ORDERED: LACTULOSE SYRUP 20 GM/30 ML CUP PO PRN (21:00)
[2016-09-16] MEDS ORDERED: SENNOSIDES 8.6 MG TAB PO PRN (21:00)
[2016-09-16] MEDS ORDERED: MAGNESIUM HYDROXIDE SUSP 30 ML CUP PO PRN (21:00)
[2016-09-16] MEDS ORDERED: BISACODYL 10 MG SUPP RECTAL PRN (21:00)
[2016-09-16] MEDS ORDERED: ACETAMINOPHEN 325 MG TAB PO PRN (21:00)
[2016-09-16] MEDS: DOCUSATE SODIUM 50 MG/SENNA 8.6 MG TAB PO SCH (21:00)
--- NOTE | 2016-09-16 21:00 | HHI.HP ---
HPI Service [facility] Hospitalists Primary Care Physician Robinson Ortiz DO Admission Diagnosis Abdominal abscess. Nausea/vomiting Diagnoses: (1) Pancreatic abscess Diagnosis: Principal (2) Hypercalcemia Diagnosis: Principal (3) Alcohol abuse Diagnosis: Principal (4) Leukocytosis Diagnosis: Principal (5) Anemia Diagnosis: Principal (6) DM (diabetes mellitus) Diagnosis: Principal Travel History International Travel<30 Days: No Contact w/Intl Traveler <30 Da: No Traveled to Known Affected Are: No History of Present Illness This is a 66-year-old male with a PMH of A. fib, COPD, DM, CHF (Echo 01/31/14 w / EF 60-65%), Pancreatitis, h/o Alcohol Abuse, h/o Tobacco Abuse and h/o Cocaine Abuse who presented to the ER w/ complaints of abdominal pain x4 days. States he had "pancreas surgery" at approx 2wks ago by Dr. Mathias for apparent pancreatic cyst. Had been doing fine post-procedure until about 4 days ago when he started to have abdominal pain, nausea and intermittent vomiting. Denies fever, chills or diarrhea. On arrival, BP 138/78, HR 86, O2 sat 98% on RA, Afebrile. WBC 11.3. Hgb 9.9, previously 9.3 on 07/08/16. INR 1.1. CT Abd/Pelvis w/ 11.1 x 7 cm presumed abscess in the upper anterior abdomen at site of previous larger pseudocyst seen on July 07, complex 7.3 x 3.8 cm pseudocyst at the root of mesentery above aortic bifurcation similar to appearance July 07. GI consulted by ER physician, plan is for drainage by IR w / possible transfer back to if drainage unsuccessful. S/p Flagyl/Azactam in ER. Review of Systems Except as stated in HPI: all other systems reviewed are Neg ROS: 14 point review of systems otherwise negative. Past Family Social History Past Medical History PMH: A. fib, COPD, DM, CHF (Echo 01/31/14 w/ EF 60-65%), Pancreatitis, h/o Alcohol Abuse, h/o Tobacco Abuse and h/o Cocaine Abuse Past Surgical History PAST SURGICAL HISTORY: G-tube Insertion, Appendectomy, Dental Extraction Allergies: Coded Allergies: Penicillin (Verified Allergy, Severe, HIVES, 07/07/16) Family History PAST FAMILY HISTORY: Reviewed. No h/o DM or CAD Social History PAST SOCIAL HISTORY: History of alcohol abuse, denies recent ingestion. History of tobacco abuse, quit 2 months ago. Denies drug use however history of cocaine. Physical Exam Vital Signs Vital Signs Date Time Temp Pulse Resp B/P Pulse Ox O2 Delivery O2 Flow Rate FiO2 09/16/16 18:27 97.5 86 20 138/78 98 Room Air Physical Exam PE: GENERAL: Middle-aged black male in no acute distress. HEENT: PERRLA, EOMI. No scleral icterus or conjunctival pallor. No lid lag or facial droop. CARDIOVASCULAR: Regular rate and rhythm. No obvious murmurs to auscultation. No chest tenderness to palpation. RESPIRATORY: No obvious rhonchi or wheezing. Clear to auscultation. Breath sounds equal bilaterally. GASTROINTESTINAL: Abdomen soft, epigastric tenderness to palpation, nondistended. BS normal. Abdominal surgical scar, no evidence for infection. MUSCULOSKELETAL: Extremities without clubbing, cyanosis, or edema. No obvious deformities. NEUROLOGICAL: Awake, alert and oriented x4. No focal neurologic deficits. Moving both upper and lower extremities spontaneously. Laboratory Laboratory Tests Test 09/16/16 09/16/16 19:11 20:10 White Blood Count 11.3 Red Blood Count 4.02 Hemoglobin 9.9 Hematocrit 30.1 Mean Corpuscular Volume 74.8 Mean Corpuscular Hemoglobin 24.5 Mean Corpuscular Hemoglobin 32.8 Concent Red Cell Distribution Width 15.7 Platelet Count 359 Mean Platelet Volume 9.7 Neutrophils (%) (Auto) 65.1 Lymphocytes (%) (Auto) 17.5 Monocytes (%) (Auto) 14.9 Eosinophils (%) (Auto) 1.7 Basophils (%) (Auto) 0.8 Neutrophils # (Auto) 7.3 Lymphocytes # (Auto) 2.0 Monocytes # (Auto) 1.7 Eosinophils # (Auto) 0.2 Basophils # (Auto) 0.1 CBC Comment DIFF FINAL Differential Comment Prothrombin Time 12.1 Prothromb Time International 1.1 Ratio Activated Partial 30.5 Thromboplast Time Sodium Level 141 Potassium Level 3.8 Chloride Level 107 Carbon Dioxide Level 24.0 Anion Gap 10 Blood Urea Nitrogen 16 Creatinine 0.98 Estimat Glomerular Filtration 93 Rate Random Glucose 113 Calcium Level 10.6 Total Bilirubin 0.3 Aspartate Amino Transf 16 (AST/SGOT) Alanine Aminotransferase 13 (ALT/SGPT) Alkaline Phosphatase 80 Total Protein 7.4 Albumin 3.5 Lipase 76 Lactic Acid Level 0.9 Result Diagram: 09/16/16191009/16/161910 Assessment and Plan Problem List: (1) Pancreatic abscess ICD Code: K85.90 Status: Acute (2) Hypercalcemia ICD Code: E83.52 Status: Acute (3) Leukocytosis ICD Code: D72.829 Status: Acute (4) Alcohol abuse ICD Code: F10.10 Status: Chronic (5) COPD (chronic obstructive pulmonary disease) ICD Code: J44.9 Status: Chronic (6) DM (diabetes mellitus) ICD Code: E11.9 Status: Acute Assessment and Plan A/P: 1. Pancreatic Abscess: c/o acute onset abdominal pain x4 days, recent "pancreas surgery" at by Dr. Mathias approx 2wks ago for pseudocyst. CT Abd/Pelvis w/ 11.1 x 7 cm abscess at site of previous pseudocyst on July 07, complex 7.3 x 3.8 presumed pseudocyst at aortic bifurcation, similar to July 07 images reviewed by me. GI consulted by ER physician, plan is for drainage by IR with possible transfer back to if drainage unsuccessful. Protonix IV, analgesics/antiemetics as needed. Continue w/ IV Abx. 2. Hypercalcemia: Ca 10.7, IVF for hydration, repeat labs in am. 3. Leukocytosis: WBC 11.1, afebrile. In light of above findings, will continue w/ IV Abx. S/p Azactam/Flagyl in ER. 4. Alcohol Abuse: reports h/o alcohol abuse, however states he quit. Will monitor for possible withdrawal. Resume Folic Acid, Thiamine PO 5. COPD: Chronic Respiratory Failure. Stable. Resume home MDI/Neb 6. DM: Sliding scale w/ Accu-Cheks. Hold Metformin. 7. DVT Prophylaxis: SCD/Teds. 8. Social work for d/c planning as needed. 9. Case discussed w/ ER physician at length Physician Certification 2 Midnight Certification Type: Admission for Inpatient Services Order for Inpatient Services The services are ordered in accordance with Medicare regulations or non- Medicare payer requirements, as applicable. In the case of services not specified as inpatient-only, they are appropriately provided as inpatient services in accordance with the 2-midnight benchmark. Estimated LOS (days): 2 days is the estimated time the patient will need to remain in the hospital, assuming treatment plan goals are met and no additional complications. Post-Hospital Plan: Not yet determined Armida Swann MD Sep 16, 2016 21:00
[2016-09-16] MEDS: SODIUM CHLOR 0.9% 1000 ML INJ 1,000 ML IV SCH (21:58)
[2016-09-16] MEDS ORDERED: HYDROmorphone HCL PF 1 MG/ML VIAL IV PUSH ONE (22:15)
[2016-09-16] MEDS: SODIUM CHLORIDE 0.9% FLUSH 10 ML FLUSH IV FLUSH SCH (22:52)
[2016-09-16 23:00] VITALS: BP 119/64; PULSE 64; RESP 20; TEMP 97.7; O2SAT 98
[2016-09-17] MEDS: MORPHINE SULFATE 4 MG/ML INJ IV PRN ×7 (00:21→22:40)
[2016-09-17] MEDS: metroNIDAZOLE 500 MG INJ 100 ML IV SCH ×3 (03:28→19:40)
[2016-09-17] MEDS: SODIUM CHLOR 0.9% 1000 ML INJ 1,000 ML IV SCH ×2 (03:28→16:42)
[2016-09-17 04:24] VITALS: BP 115/62; PULSE 63; RESP 18; TEMP 98.1; O2SAT 95
[2016-09-17 08:00] VITALS: BP 125/65; PULSE 59; RESP 18; TEMP 98.1; O2SAT 95
[2016-09-17] MEDS: SODIUM CHLORIDE 0.9% FLUSH 10 ML FLUSH IV FLUSH SCH ×2 (09:00→22:00)
[2016-09-17 09:24] LABS: AUTOMATED NEUTROPHIL # 5.1 TH/MM3 (1.8-7.7); BASOPHIL # 0.1 TH/MM3 (0-0.2); BASOPHIL % 0.6 % (0.0-2.0); EOSINOPHIL # 0.3 TH/MM3 (0-0.4); EOSINOPHIL % 3.1 % (0.0-4.0); HEMATOCRIT 29.8 % (39.0-51.0); HEMO FLAGS DIFF FINAL; LYMPH % 25.3 % (9.0-44.0); LYMPHOCYTE # 2.5 TH/MM3 (1.0-4.8); MEAN CELL VOLUME 75.2 FL (80.0-100.0); MEAN CORPUSCULAR HEMOGLOBIN 23.6 PG (27.0-34.0); MEAN CORPUSCULAR HGB CONC 31.5 % (32.0-36.0); MONO % 20.2 % (0.0-8.0); NEUT % 50.8 % (16.0-70.0); PLATELET COUNT 319 TH/MM3 (150-450); RED BLOOD COUNT 3.96 MIL/MM3 (4.50-5.90); RED CELL DISTRIBUTION WIDTH 15.8 % (11.6-17.2)
[2016-09-17] MEDS: CIPROFLOXACIN 400 MG PREMIX 200 ML IV SCH ×2 (09:40→22:00)
[2016-09-17] MEDS: GABAPENTIN 300 MG CAP PO SCH ×3 (09:48→16:42)
[2016-09-17] MEDS: FOLIC ACID 1 MG TAB PO SCH (09:48)
[2016-09-17] MEDS: ROFLUMILAST 500 MCG TAB PO SCH (09:48)
[2016-09-17] MEDS: DOCUSATE SODIUM 50 MG/SENNA 8.6 MG TAB PO SCH ×2 (09:49→22:00)
[2016-09-17] MEDS: ALLOPURINOL 300 MG TAB PO SCH (09:49)
[2016-09-17] MEDS: amLODIPine BESYLATE 5 MG TAB PO SCH ×2 (09:49→22:00)
[2016-09-17] MEDS: cloNIDine HCL 0.2 MG TAB PO SCH ×2 (09:49→22:00)
[2016-09-17] MEDS: THIAMINE HCL 100 MG TAB PO SCH (09:49)
[2016-09-17 09:57] LABS: ALT (GPT) 11 U/L (12-78); ANION GAP 13 MEQ/L (5-15); BLOOD UREA NITROGEN 14 MG/DL (7-18); CHLORIDE 110 MEQ/L (98-107); POTASSIUM 3.8 MEQ/L (3.5-5.1); SODIUM (NA) 143 MEQ/L (136-145)
[2016-09-17 09:58] LABS: AST (GOT) 14 U/L (15-37); GLOMERULAR FILTRATION RATE 121 ML/MIN (>89); TOTAL BILIRUBIN ADULT 0.3 MG/DL (0.2-1.0)
[2016-09-17] MEDS: BUDESONIDE-FORMOTEROL 160/4.5 MCG INHALER INH SCH ×2 (09:58→22:00)
[2016-09-17 09:59] LABS: ALKALINE PHOSPHATASE 75 U/L (45-117)
--- NOTE | 2016-09-17 11:55 | PD.CONS ---
GI Consult GI Consult Thank you for the consultation, Full GI consult dictated. ASSESSMENT/PLAN: 1. 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 - Attempted EUS with cystogastrostomy, unable to perform due to large amount of pancreatic necrosis. Therefore underwent Surgical resection with pancreatic necrosectomy on August 26. 2. Pancreatic fluid collection x 2 - abscess vs pseudocyst. Suspect this is recurrence of pancreatic necrosis in the anterior abdomen and pseudocyst in the posterior. 3. Abdominal pain 4. N/v 5. Hx of Hep C PLAN: 1. Consult IR for evaluation of drainage cath placement 2. Agree with Surgical intervention (discussed with Dr Bowman) 3. Fluid collection is not amenable to Endoscopic drainage. 4. agree with IV abx. 5. Pancreatic enzymes Creon 41963 lipase units TID 6. Diet as tolerated depending on planned IR and Surgical intervention. It was a pleasure seeing Julian Marti . Thank you for this consult. Entered by: Shagufta Vences MD Sep 17, 2016 11:55
[2016-09-17 12:00] VITALS: BP 122/60; PULSE 68; RESP 18; TEMP 98; O2SAT 100
[2016-09-17] MEDS: LIPASE/PROTEASE/AMYLASE (24,000/76,000/120,000) CAP PO SCH ×2 (13:06→16:42)
--- NOTE | 2016-09-17 14:17 | PD.PN.STU ---
Subjective Remarks Patient presented yesterday with persistent abdominal pain in epigastrium and anorexia. Describes pain as 9/10 currently and similar to pain that was present before surgery done about 2 weeks ago to drain pancreatic pseudocyst. After the surgery, patient had relief of symptoms for about a week before it began to recur last week. Relevant history of acute pancreatitis and alcohol abuse as well as CHF, a-fib, COPD, HTN, type 2 DM. Reports stopping smoking and drinking 5 months ago. Objective Vitals Vital Signs Date Time Temp Pulse Resp B/P Pulse Ox O2 Delivery O2 Flow Rate FiO2 09/17/16 13:05 18 09/17/16 12:00 98.0 68 18 122/60 100 09/17/16 08:00 98.1 59 18 125/65 95 09/17/16 04:24 98.1 63 18 115/62 95 09/17/16 00:56 16 09/17/16 00:26 16 09/16/16 23:00 97.7 64 20 119/64 98 09/16/16 18:27 97.5 86 20 138/78 98 Room Air I/O 09/16/16 09/16/16 09/16/16 09/17/16 09/17/16 09/17/16 07:00 15:00 23:00 07:00 15:00 23:00 Output Total 250 ml Balance -250 ml Output Urine Total 250 ml # Voids 1 Result Diagram: 09/17/16 0857 09/17/16 0857 Imaging Last 24 hours Impressions Abdomen/Pelvis CT 09/16/16 1853 Signed Impressions: Service Date/Time: Friday, September 16, 2016 19:30 - CONCLUSION: 1. 11.1 x 7 cm presumed abscess in the upper anterior abdomen at the site of the previous larger pseudocyst seen on July 07. 2. Complex 7.3 x 3.8 cm presumed pseudocyst at the root of the mesentery just above the aortic bifurcation similar in appearance to July 07. Ponce Goode MD Objective Remarks PE: Patient was awake, alert, and in no acute distress during examination. Heart exam normal. Lungs with small expiratory wheezes heard in lower lobes. Abdomen notable for 15 cm vertical surgical scar down anterior midline at area of previous surgery mentioned above. Diffuse mass palpated in right epigastrium. Abdomen diffusely tender to palpation but especially over mass. A/P Assessment and Plan A: CT shows 2 distinct pseudocystic masses in pancreas which are likely causing symptoms. Right anterior pseudocyst is likely accessible to drainage via previous anterior surgical incision and approach. Left posterior pseudocyst would likely require drainage via posterior retroperitoneal approach. P: 1. Clear liquid diet. 2. CT of abdomen/pelvis with IV contrast to visualize right renal artery and vein for possible retroperitoneal approach. 3.Consult to interventional radiology to place small drain into posterior pseudocyst to provide access and marker for surgical approach. 4. Surgery Monday to drain pseudocysts. Attending Note The above is an exact scribed report of my findings, exam and recommendations. Kalyan Gonzales Sep 17, 2016 14:17 Devyn Bowman MD Sep 23, 2016 11:39
[2016-09-17] MEDS ORDERED: IOHEXOL 350 MG/ML 10 ML VIAL (for RAD DIAG) IV ONE (15:40)
[2016-09-17 16:00] VITALS: BP 112/72; PULSE 70; RESP 18; TEMP 97.7; O2SAT 96
--- NOTE | 2016-09-17 16:22 | MB ---
cc: IMANI HARRIS DATE OF CONSULTATION 09/17/16 DATE OF 1950 Endoscopist, Dr. Imani Harris REASON FOR CONSULTATION Abdominal pain, pancreatic cyst, nausea, vomiting. HISTORY OF PRESENT ILLNESS This is a very pleasant 66-year-old gentleman known to me from the office and a previous hospitalization at [facility]. He has longstanding history of alcohol use, was having recurrent attacks of pancreatitis. In the past had sustained a large pancreatic pseudocyst which was being monitored. Unfortunately, his symptoms worsened. The pseudocyst became enlarged up to 23 cm. Due to his symptoms he was hospitalized. He went to [facility] and due to his abdominal symptoms he underwent an endoscopic ultrasound for further evaluation and initially we attempted to try for a US guided cystogastrostomy, unfortunately, due to large amount of pancreatic necrosis and lack of a fluid collection this was not possible, therefore, a surgical consultation with Dr. Mathias was performed. The patient was seen and during that admission underwent a surgical necrosectomy for the large anterior walled off pancreatic necrosis. He had relative uncomplicated postoperative period and was eventually discharged. He had been doing well over the last several weeks until about four days ago began having recurrence of his abdominal discomfort, nausea, vomiting, inability to tolerate oral intake. He actually had an office appointment with me 2 days ago which he missed and therefore due to his symptoms he came into the emergency room for further workup and help in treatment. In the ER he underwent imaging which the CT scan of the abdomen which was significant for an 11.1 x 7 cm fluid collection in the anterior abdomen and a complex loculated fluid collection in the inferior measuring 7.3 x 3 cm. Due to this he was admitted to the hospital with IV antibiotics. GI was consulted for further workup and help in management. PAST MEDICAL HISTORY Hepatitis C, polysubstance abuse, COPD, diabetes mellitus, alcohol use, CHF, COPD. PAST SURGICAL HISTORY Appendectomy, surgical pancreatic necrosectomy August 26, 2016. ALLERGIES PENICILLIN. FAMILY HISTORY No GI malignancies. SOCIAL HISTORY The patient has significant alcohol use history. Quit alcohol drinking completely 2-3 months ago. He denies any current illicit drug use. MEDICATIONS Please see EMR for accurate list. REVIEW OF SYSTEMS A twelve-point review system was obtained and ___ to be negative or noncontributory except for the above-mentioned in the HPI. PHYSICAL EXAMINATION VITAL SIGNS: 98.1, heart rate 69, blood pressure 125/65, O2 sat 95%. GENERAL: Alert, oriented. No focal deficits. No acute distress. HEENT: Eyes, pupils equal, round, reactive to light. Oral mucosa moist and pink. NECK: Supple, no carotid bruits noted. No thyromegaly. No lymphadenopathy in the cervical chain. CARDIOVASCULAR: Normal rate, rhythm. No murmur heard. RESPIRATORY: Clear to auscultation. Nonlabored breath sounds. ABDOMEN: Mildly tender to palpation. Slight fullness in the midabdomen. A linear scar on the anterior abdomen, healed well. No rebound appreciated. Hepatomegaly noted. No periumbilical ecchymosis or flank ecchymosis noted. GENITOURINARY: No CVA angle tenderness. MUSCULOSKELETAL: Equal strength upper and lower extremities. NEURO: Alert oriented. No focal deficits. PSYCHIATRIC: Cooperative and appropriate mood, affect. LABORATORY DATA WBC 10.0, hemoglobin 9.4, platelet count 319, sodium 143, potassium 3.8, chloride 110, bicarb 20, BUN 14, creatinine 0.78, lactic acid 0.9, total bili 0.3, AST 14, ALT 11, alk phos 75, lipase 78, albumin 3.0. Coags 1.1. IMAGING STUDIES As described above. IMPRESSION 1. History of pancreatic pseudocyst with walled off pancreatic necrosis. Attempted US with cystogastrostomy, unable to perform due to large amount of pancreatic necrosis and lack of significant fluid. Therefore, he underwent a surgical resection with pancreatic necrosectomy on August 26, 2016. 2. Pancreatic fluid collection x2 and an anterior one and one in the posterior side. This was likely to be a pseudocyst versus abscess versus pancreatic necrosis. Suspect this is a recurrence of his pancreatic necrosis in the anterior abdomen and likely to be a complex pseudocyst in the posterior side. 3. Abdominal pain secondary to above. 4. Some nausea ___ secondary to above. 5. History of hepatitis C. RECOMMENDATIONS 1. Agree with consultation with interventional radiology for evaluation of drainage catheter placement. 2. Agree with surgical intervention in regards to a possible necrosectomy. 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 Dr. Bowman. 3. Fluid collection is not amendable to endoscopic drainage. 4. Agree with IV antibiotics for now. 5. Pancreatic enzymes, recommend Creon 36,000 lipase units 2 tablets with meal, 1 tablet with a snack. 6. Diet as tolerated, depending on the planned intervention with interventional radiology and surgical intervention. Thank you for allowing [facility] to participate in the care of this patient. Will follow along with you and make recommendation as per the patient's clinical course. Imani Harris MD KRChanning/EO /11:49 AM /3:48 PM
--- NOTE | 2016-09-17 16:42 | RADRPT ---
EXAM DATE/TIME: 09/17/2016 15:26 [facility] COMPARISON: CT ABDOMEN & PELVIS W/O CONTRAST, September 16, 2016, 19:30. CT ABDOMEN & PELVIS W CONTRAST, July 07 17, 14:11. INDICATIONS : Evaluate renal artery and vein; pancreatic blood flow. IV CONTRAST: 98 cc Omnipaque 350 (iohexol) IV ORAL CONTRAST: No oral contrast ingested. RADIATION DOSE: 15.22 CTDIvol (mGy) MEDICAL HISTORY : Chronic obstructive pulmonary disease. Hypertension. SURGICAL HISTORY : None. ENCOUNTER: Initial ACUITY: 1 day PAIN SCALE: 4/10 LOCATION: Bilateral abdomen. TECHNIQUE: Volumetric scanning of the abdomen and pelvis was performed. Using automated exposure control and ad justment of the mA and/or kV according to patient size, radiation dose was kept as low as reasonably achievable to obtain optimal diagnostic quality images. FINDINGS: As seen on yesterday's noncontrast study, fluid collections are seen adjacent to the pancreas and the duodenum. Largest fluid collection is anterior to the pancreatic head, inferior to the stomach and p roximal duodenum, measures approximately 7.1 x 11.9 cm. There is an adjacent loculated component ante rior to the tail the pancreas that measures 3.0 x 6.4 cm in size. There is a collection inferior to t he fourth portion of the duodenum and anterior to the aorta, measures approximately 3.9 x 7.9 cm in s ize. These are all similar to the noncontrast study done yesterday. The fluid collections exert mild mass effect on adjacent structures, including the head of the pancre as. However, pancreatic parenchymal enhances normally. There is normal filling of the celiac and supe rior mesenteric arteries. Both renal arteries also fill normally. Dual renal artery origin on the rig ht, single but with early branching on the left.. There is normal renal parenchymal enhancement. Mild patchy atherosclerotic plaque seen of the abdominal aorta, mainly distally, and extending into the i liac arteries. There is no aneurysm. Renal veins are normal. Urinary bladder wall appears mildly thick. A bleed there is a left scrotal varicocele. Mild atelectasis seen of both visualized lung bases. CONCLUSION: 1. No evidence of vascular compromise. 2. Peripancreatic and periduodenal fluid collections are unchanged. Mason Dahl MD on September 17, 2016 at 16:29 Board Certified Radiologist. This report was verified electronically.
--- NOTE | 2016-09-17 17:09 | HHI.PR ---
Subjective Remarks Patient to stick in bed, he denied significant complain no abdominal pain no fever no chills no short of breath I received a call earlier this morning from Dr. Rollins the radiologist he informed me that the pancreatic abscesses not amicable to drainage due to "peanut butter "consistency, recommended surgery consultation which I placed and discussed later with Dr. Bowman Objective Vitals Vital Signs Date Time Temp Pulse Resp B/P Pulse Ox O2 Delivery O2 Flow Rate FiO2 09/17/16 16:00 97.7 70 18 112/72 96 09/17/16 13:05 18 09/17/16 12:00 98.0 68 18 122/60 100 09/17/16 08:00 98.1 59 18 125/65 95 09/17/16 04:24 98.1 63 18 115/62 95 09/17/16 00:56 16 09/17/16 00:26 16 09/16/16 23:00 97.7 64 20 119/64 98 09/16/16 18:27 97.5 86 20 138/78 98 Room Air I/O 09/16/16 09/16/16 09/16/16 09/17/16 09/17/16 09/17/16 07:00 15:00 23:00 07:00 15:00 23:00 Intake Total 1501 ml Output Total 250 ml 900 ml Balance -250 ml -900 ml 1501 ml IV Total 1501 ml Output Urine Total 250 ml 900 ml # Voids 1 Result Diagram: 09/17/16 0857 09/17/16 0857 Objective Remarks GENERAL: This is a well-nourished, well-developed patient, in no apparent distress. SKIN: No rashes, warm and dry HEAD: Atraumatic. Normocephalic. EYES: Pupils equal round and reactive. Extraocular motions intact. No scleral icterus. ENT: Nose without bleeding, or drainage, Airway patent. NECK: Trachea midline. Supple CARDIOVASCULAR: Regular rate and rhythm without murmurs, gallops, or rubs. RESPIRATORY: Fair air entry bilaterally. No wheezes, rales, or rhonchi. GASTROINTESTINAL: Abdomen soft, non-tender, nondistended. Positive bowel sounds MUSCULOSKELETAL: Extremities without clubbing, cyanosis, or edema. Pedal pulses appreciated NEUROLOGICAL: Awake and alert. Moves all extremity. Normal speech.no focal neurological deficit A/P Problem List: (1) Pancreatic abscess ICD Code: K85.90 Status: Acute (2) Hypercalcemia ICD Code: E83.52 Status: Acute (3) Leukocytosis ICD Code: D72.829 Status: Acute (4) Alcohol abuse ICD Code: F10.10 Status: Chronic (5) COPD (chronic obstructive pulmonary disease) ICD Code: J44.9 Status: Chronic (6) DM (diabetes mellitus) ICD Code: E11.9 Status: Acute Assessment and Plan 09/17: Received a call earlier from Dr. Rollins the radiologist informing me that the abscess is not unable to drainage and recommended surgical consult which I placed, and discussed later with Dr. Bowman graciously saw the patient and ordered 3-D CT of the abdomen and possibly taking patient for surgery, in the meantime we will continue current supportive management A/P: 1. Pancreatic Abscess: c/o acute onset abdominal pain x4 days, recent "pancreas surgery" at by Dr. Mathias approx 2wks ago for pseudocyst. CT Abd/Pelvis w/ 11.1 x 7 cm abscess at site of previous pseudocyst on July 07, complex 7.3 x 3.8 presumed pseudocyst at aortic bifurcation, similar to July 07 images reviewed by me. GI consulted by ER physician, plan is for drainage by IR with possible transfer back to if drainage unsuccessful. Protonix IV, analgesics/antiemetics as needed. Continue w/ IV Abx. 2. Hypercalcemia: Ca 10.7, IVF for hydration, repeat labs in am. 3. Leukocytosis: WBC 11.1, afebrile. In light of above findings, will continue w/ IV Abx. S/p Azactam/Flagyl in ER. 4. Alcohol Abuse: reports h/o alcohol abuse, however states he quit. Will monitor for possible withdrawal. Resume Folic Acid, Thiamine PO 5. COPD: Chronic Respiratory Failure. Stable. Resume home MDI/Neb 6. DM: Sliding scale w/ Accu-Cheks. Hold Metformin. 7. DVT Prophylaxis: SCD/Teds. Chelsea Bethea MD Sep 17, 2016 17:09
--- NOTE | 2016-09-17 17:12 | MB ---
cc: JEN OCASIO M.D. DATE OF CONSULTATION 09/17/2016 REASON FOR CONSULTATION Pancreatic pseudocyst with unrelenting symptoms with nausea and vomiting. HISTORY OF PRESENT ILLNESS The patient is a 66-year-old male with past medical history of atrial fibrillation, COPD, diabetes mellitus and CHF, however, with EF of 60-65%, previous alcohol abuse and pancreatitis with pancreatic pseudocyst who presented to the ER with complaint of abdominal pain for 4 days. The patient had necrosectomy by Dr. Ruddy Mathias on August 22 at [facility] and the patient states that he was better for about 3 weeks. He has been having increasing abdominal pain, nausea and vomiting and is unable to keep any solid food down. At the time the patient had Dr. Ames see the patient and decide whether the patient could have a endoscopic cystogastrostomy but was not amenable at the time and thus the required open surgical procedure. PAST MEDICAL HISTORY Past medical history is significant for pancreatic pseudocyst with abscess after pancreatitis from alcohol use. The patient states he is no longer using any alcohol and is not smoking. PAST SURGICAL HISTORY Past surgeries include G-tube insertion, appendectomy and dental extraction. ALLERGIES HE HAS A SEVERE ALLERGY TO PENICILLIN WHICH CAUSES HIVES. PHYSICAL EXAMINATION GENERAL: Physical exam reveals a thin black male in no acute distress. VITAL SIGNS: BP 122/60, pulse 68, respirations 18, temperature 98.0, 100% saturation. HEENT: Sclerae anicteric. Pupils reactive. CHEST: Clear to auscultation. CARDIOVASCULAR: Cardiac exam reveals regular rate. ABDOMEN: Abdomen is soft with a well-healed supraumbilical midline incision. There is pain on the patient's examination with a mass effect directly under the incision and to the left of the incision slightly. BACK: There is no left lateral force CVA tenderness. EXTREMITIES: Pulses are intact. NEUROLOGIC: Exam is nonfocal. LABORATORY FINDINGS WBCs are 10.0 with a platelet count of 319,000. Chemistries demonstrate potassium of 3.8, BUN and creatinine of [address] imaging demonstrates an 11.1 x 7 cm abscess in the anterior abdomen and 7.3 x 3.8 cm pseudocyst at the root of the mesentery. ASSESSMENT Pancreatic pseudocyst with necrotic tissue causing the patient to be symptomatic and unable to tolerate p.o. intake. PLAN The patient will likely require repeat anterior drainage and consideration for posterior retroperitoneal necrosectomy. I have discussed this with Dr. Ames as well as with Dr. Rollins; CT with contrast will be obtained to demonstrate the renal vascular anatomy on the left. If Dr. Rollins is able to safely place a drain in the retroperitoneal area, simultaneous anterior followed by posterior necrosectomy could be performed to provide the patient with relief. Complete intra-abdominal exploration is less desirable and I would like to avoid it if possible. However, we may drain both through an anterior approach if Dr. Rollins is unable to place the drain. I have discussed this with the patient and have discussed with him the risks of surgery including but not limited to bleeding, infection and need for reoperation, as well as the fci placement of a drain that may be required to be left in place for some time. He vocalizes understanding and agrees to proceed. We will plan some sort of operative intervention as soon as the operating room time is available on Monday or Monday. Thank you Dr. Bethea for asking me to see this patient. MD JAI Hermosillo/[place] /1:14 PM /5:02 PM
[2016-09-17 20:00] VITALS: BP 122/66; PULSE 71; RESP 18; TEMP 98.3; O2SAT 97
[2016-09-18] VITALS: BP 116/58; PULSE 74; RESP 20; TEMP 98.7; O2SAT 97
[2016-09-18] MEDS: MORPHINE SULFATE 4 MG/ML INJ IV PRN ×7 (01:51→22:57)
[2016-09-18] MEDS: SODIUM CHLOR 0.9% 1000 ML INJ 1,000 ML IV SCH ×2 (02:08→13:26)
[2016-09-18] MEDS: ZOLPIDEM TARTRATE 5 MG TAB PO PRN ×2 (02:08→22:57)
[2016-09-18 04:00] VITALS: BP 113/60; PULSE 68; RESP 20; TEMP 98.2; O2SAT 98
[2016-09-18] MEDS: metroNIDAZOLE 500 MG INJ 100 ML IV SCH ×3 (04:46→20:07)
[2016-09-18 08:00] VITALS: BP 110/66; PULSE 72; RESP 18; TEMP 97.6; O2SAT 97
[2016-09-18] MEDS: BUDESONIDE-FORMOTEROL 160/4.5 MCG INHALER INH SCH ×2 (08:14→20:07)
[2016-09-18] MEDS: CIPROFLOXACIN 400 MG PREMIX 200 ML IV SCH ×2 (08:14→20:06)
[2016-09-18] MEDS: SODIUM CHLORIDE 0.9% FLUSH 10 ML FLUSH IV FLUSH SCH ×2 (08:17→20:06)
[2016-09-18] MEDS: ROFLUMILAST 500 MCG TAB PO SCH (08:18)
[2016-09-18] MEDS: FOLIC ACID 1 MG TAB PO SCH (08:18)
[2016-09-18] MEDS: LIPASE/PROTEASE/AMYLASE (24,000/76,000/120,000) CAP PO SCH ×3 (08:18→17:07)
[2016-09-18] MEDS: cloNIDine HCL 0.2 MG TAB PO SCH ×2 (08:18→20:06)
[2016-09-18] MEDS: GABAPENTIN 300 MG CAP PO SCH ×3 (08:18→17:08)
[2016-09-18] MEDS: THIAMINE HCL 100 MG TAB PO SCH (08:19)
[2016-09-18] MEDS: DOCUSATE SODIUM 50 MG/SENNA 8.6 MG TAB PO SCH ×2 (08:19→20:08)
[2016-09-18] MEDS: amLODIPine BESYLATE 5 MG TAB PO SCH ×2 (08:19→20:06)
[2016-09-18] MEDS: ALLOPURINOL 300 MG TAB PO SCH (08:19)
--- NOTE | 2016-09-18 09:42 | HHI.PR ---
Subjective Subjective Notes no acute issues, c/o abdominal pain, no vomiting Objective Vitals/I&O Vital Signs Date Time Temp Pulse Resp B/P Pulse Ox O2 Delivery O2 Flow Rate FiO2 09/18/16 09:01 20 09/18/16 08:00 97.6 72 110/66 97 09/18/16 04:00 Room Air Abdomen: Other (+ttp, healed midline incision) A/P Assessment and Plan Pancreatic pseudocyst with necrotic tissue PLAN IR to placed posterior drain today plan for OR tomorrow for operative drainage on anterior pseudocyst Manas Araya MD Sep 18, 2016 09:42
--- NOTE | 2016-09-18 10:33 | HHI.GIFU ---
GI Follow-up Note Consult Follow-up Subjective: Patient laying in bed comfortably, no new complaints. no fevers or chills abdo pain improved. Objective: PHYSICAL EXAMINATION: Vitals signs stable No fever HEENT: Pupils round and reactive to light; normocephalic; atraumatic; no jaundice. Throat is clear. NECK: Neck is supple, no JVD, no lymphadenopathy. CHEST: Chest is clear to auscultation and percussion. CARDIAC: Regular rate and rhythm with no murmur gallop or rubs. ABDOMEN: Soft, nondistended, nontender; no hepatosplenomegaly; bowel sounds are present in all four quadrants. EXTREMITIES: No clubbing, cyanosis, or edema. SKIN: Normal; no rash; no jaundice. DRAW FRAME RUNNER: No focal deficits; alert and oriented times three. Available Data (labs, X- Rays, Procedures) : labs reviewed, imaging reviewed ASSESSMENT/PLAN: 1. Symptomatic Walled off pancreatic necrosis (WOPN) 2. Panc pseudocyst 3. Abdominal pain PLAN: 1. On iv abx 2. IR plan for possible drain of posterior fluid 3. OR tomorrow for necrosectomy. It was a pleasure seeing Julian Marti. Thank you for this consult. Entered by: Shagufta Vences MD Sep 18, 2016 10:33
[2016-09-18 12:00] VITALS: BP 109/54; PULSE 76; RESP 18; TEMP 98.3; O2SAT 96
[2016-09-18 16:00] VITALS: BP 124/71; PULSE 70; RESP 18; TEMP 98.4; O2SAT 97
--- NOTE | 2016-09-18 16:36 | HHI.PR ---
Subjective Remarks Patient denied complain no nausea or vomiting Plan for surgical intervention tomorrow for pancreatic necronectomy Objective Vitals Vital Signs Date Time Temp Pulse Resp B/P Pulse Ox O2 Delivery O2 Flow Rate FiO2 09/18/16 14:46 18 09/18/16 12:00 98.3 76 18 109/54 96 09/18/16 11:33 97 Room Air 09/18/16 08:00 97.6 72 18 110/66 97 09/18/16 04:00 98.2 68 20 113/60 98 09/18/16 04:00 Room Air 09/18/16 00:00 Room Air 09/18/16 00:00 98.7 74 20 116/58 97 09/17/16 20:00 98.3 71 18 122/66 97 09/17/16 20:00 Room Air I/O 09/17/16 09/17/16 09/17/16 09/18/16 09/18/16 09/18/16 06:59 14:59 22:59 06:59 14:59 22:59 Intake Total 2269 ml 937 ml 655 ml Output Total 250 ml 900 ml 425 ml Balance -250 ml -900 ml 2269 ml 512 ml 655 ml Intake Oral 240 ml 0 ml IV Total 2029 ml 937 ml 655 ml Output Urine Total 250 ml 900 ml 425 ml # Voids 0 # Bowel Movements 0 0 Result Diagram: 09/17/16 0857 09/17/1657 Objective Remarks - - GENERAL: This is a well-nourished, well-developed patient, in no apparent distress. SKIN: No rashes, warm and dry HEAD: Atraumatic. Normocephalic. EYES: Pupils equal round and reactive. Extraocular motions intact. No scleral icterus. ENT: Nose without bleeding, or drainage, Airway patent. NECK: Trachea midline. Supple CARDIOVASCULAR: Regular rate and rhythm without murmurs, gallops, or rubs. RESPIRATORY: Fair air entry bilaterally. No wheezes, rales, or rhonchi. GASTROINTESTINAL: Abdomen soft, more tender to palpation in the Epigastrium , nondistended. Positive bowel sounds MUSCULOSKELETAL: Extremities without clubbing, cyanosis, or edema. Pedal pulses appreciated NEUROLOGICAL: Awake and alert. Moves all extremity. Normal speech.no focal neurological deficit A/P Problem List: (1) Pancreatic abscess ICD Code: K85.90 Status: Acute (2) Hypercalcemia ICD Code: E83.52 Status: Acute (3) Leukocytosis ICD Code: D72.829 Status: Acute (4) Alcohol abuse ICD Code: F10.10 Status: Chronic (5) COPD (chronic obstructive pulmonary disease) ICD Code: J44.9 Status: Chronic (6) DM (diabetes mellitus) ICD Code: E11.9 Status: Acute Assessment and Plan 09/17: Received a call earlier from Dr. Rollins the radiologist informing me that the abscess is not unable to drainage and recommended surgical consult which I placed, and discussed later with Dr. Bowman graciously saw the patient and ordered 3-D CT of the abdomen and possibly taking patient for surgery, in the meantime we will continue current supportive management 09/18: Continue current supportive care, monitor BMP CBC, plan for surgery and creatinine necronectomy tomorrow A/P: 1. Pancreatic Abscess: c/o acute onset abdominal pain x4 days, recent "pancreas surgery" at by Dr. Mathias approx 2wks ago for pseudocyst. CT Abd/Pelvis w.1 x 7 cm abscess at site of previous pseudocyst on July 07, complex 7.3 x 3.8 presumed pseudocyst at aortic bifurcation, similar to July 07 images reviewed by me. GI consulted by ER physician, plan is for drainage by IR with possible transfer back to if drainage unsuccessful. Protonix IV, analgesics/antiemetics as needed. Continue w/ IV Abx. 2. Hypercalcemia: Ca 10.7, IVF for hydration, repeat labs in am. 3. Leukocytosis: WBC 11.1, afebrile. In light of above findings, will continue w/ IV Abx. S/p Azactam/Flagyl in ER. 4. Alcohol Abuse: reports h/o alcohol abuse, however states he quit. Will monitor for possible withdrawal. Resume Folic Acid, Thiamine PO 5. COPD: Chronic Respiratory Failure. Stable. Resume home MDI/Neb 6. DM: Sliding scale w/ Accu-Cheks. Hold Metformin. 7. DVT Prophylaxis: SCD/Teds. Chelsea Bethea MD Sep 18, 2016 16:36
[2016-09-18 20:58] VITALS: BP 150/74; PULSE 76; RESP 18; TEMP 98.6; O2SAT 96
[2016-09-18] MEDS ORDERED: METOPROLOL TARTRATE 25 MG TAB PO PRN (22:45)
[2016-09-18] MEDS ORDERED: POVIDONE IODINE 5% (ANTISEPSIS KIT) 4 APPLICATIONS EACH NARE PRN (22:45)
[2016-09-18] MEDS ORDERED: CHLORHEXIDINE GLUCONATE 2 % 1 PACK (2 CLOTHS) TOPICAL PRN (22:45)
[2016-09-18] MEDS ORDERED: SODIUM CHLORID 0.9% 500 ML IV PRN (22:45)
[2016-09-18] MEDS ORDERED: INSULIN HUMAN REGULAR 1,000 UNITS/10 ML VIAL SQ PRN (22:45)
[2016-09-18] MEDS ORDERED: LACTATED RINGER'S 1000 ML IV PRN (22:45)
[2016-09-19 01:09] VITALS: BP 127/74; PULSE 68; RESP 20; TEMP 97.6; O2SAT 98
[2016-09-19] MEDS: SODIUM CHLOR 0.9% 1000 ML INJ 1,000 ML IV SCH ×2 (02:09→09:59)
[2016-09-19] MEDS: MORPHINE SULFATE 4 MG/ML INJ IV PRN ×6 (02:09→21:36)
[2016-09-19] MEDS: metroNIDAZOLE 500 MG INJ 100 ML IV SCH ×4 (03:44→20:00)
[2016-09-19 04:19] VITALS: BP 128/68; PULSE 75; RESP 18; TEMP 97.3; O2SAT 96
[2016-09-19] MEDS: LIPASE/PROTEASE/AMYLASE (24,000/76,000/120,000) CAP PO SCH ×3 (07:44→18:00)
[2016-09-19 08:00] VITALS: BP 144/73; PULSE 74; RESP 18; TEMP 98.1; O2SAT 97
[2016-09-19] MEDS: CIPROFLOXACIN 400 MG PREMIX 200 ML IV SCH ×3 (08:02→20:21)
[2016-09-19 08:33] LABS: BICARBONATE 22.2 MEQ/L (21.0-32.0); POTASSIUM 3.3 MEQ/L (3.5-5.1)
[2016-09-19] MEDS: FOLIC ACID 1 MG TAB PO SCH (09:00)
[2016-09-19] MEDS: SODIUM CHLORIDE 0.9% FLUSH 10 ML FLUSH IV FLUSH SCH ×2 (09:00→20:22)
[2016-09-19] MEDS: THIAMINE HCL 100 MG TAB PO SCH (09:00)
[2016-09-19] MEDS: DOCUSATE SODIUM 50 MG/SENNA 8.6 MG TAB PO SCH ×2 (09:00→21:00)
[2016-09-19] MEDS: amLODIPine BESYLATE 5 MG TAB PO SCH ×2 (09:58→21:00)
[2016-09-19] MEDS: BUDESONIDE-FORMOTEROL 160/4.5 MCG INHALER INH SCH ×2 (09:58→21:00)
[2016-09-19] MEDS: ALLOPURINOL 300 MG TAB PO SCH (09:58)
[2016-09-19] MEDS: GABAPENTIN 300 MG CAP PO SCH ×3 (09:58→21:00)
[2016-09-19] MEDS: cloNIDine HCL 0.2 MG TAB PO SCH ×2 (09:58→21:00)
[2016-09-19] MEDS: ROFLUMILAST 500 MCG TAB PO SCH (09:58)
--- NOTE | 2016-09-19 10:27 | HHI.PR ---
Subjective Remarks patient is still having abdominal discomfort laying in bed, no fever or chills plan for surgical draining tomorrow Objective Vitals Vital Signs Date Time Temp Pulse Resp B/P Pulse Ox O2 Delivery O2 Flow Rate FiO2 09/19/16 08:00 98.1 74 18 144/73 97 09/19/16 08:00 Room Air 09/19/16 04:19 97.3 75 18 128/68 96 09/19/16 04:00 Room Air 09/19/16 01:09 97.6 68 20 127/74 98 09/19/16 00:00 Room Air 09/18/16 20:58 98.6 76 18 150/74 96 09/18/16 20:00 Room Air 09/18/16 17:21 20 09/18/16 16:00 98.4 70 18 124/71 97 09/18/16 12:00 98.3 76 18 109/54 96 09/18/16 11:33 97 Room Air I/O 09/18/16 09/18/16 09/18/16 09/19/16 09/19/16 09/19/16 07:00 15:00 23:00 07:00 15:00 23:00 Intake Total 937 ml 1375 ml 900 ml 918 ml Output Total 425 ml 300 ml 575 ml 500 ml Balance 512 ml 1075 ml 325 ml 418 ml Intake Oral 0 ml 720 ml 240 ml IV Total 937 ml 655 ml 660 ml 918 ml Output Urine Total 425 ml 300 ml 575 ml 500 ml # Bowel Movements 0 1 Result Diagram: 09/17/16 0857 09/19/16 0640 Objective Remarks - - GENERAL: This is a well-nourished, well-developed patient, in no apparent distress. SKIN: No rashes, warm and dry HEAD: Atraumatic. Normocephalic. EYES: Pupils equal round and reactive. Extraocular motions intact. No scleral icterus. ENT: Nose without bleeding, or drainage, Airway patent. NECK: Trachea midline. Supple CARDIOVASCULAR: Regular rate and rhythm without murmurs, gallops, or rubs. RESPIRATORY: Fair air entry bilaterally. No wheezes, rales, or rhonchi. GASTROINTESTINAL: Abdomen soft, more tender to palpation in the Epigastrium , nondistended. Positive bowel sounds MUSCULOSKELETAL: Extremities without clubbing, cyanosis, or edema. Pedal pulses appreciated NEUROLOGICAL: Awake and alert. Moves all extremity. Normal speech.no focal neurological deficit A/P Problem List: (1) Pancreatic abscess ICD Code: K85.90 Status: Acute (2) Hypercalcemia ICD Code: E83.52 Status: Acute (3) Leukocytosis ICD Code: D72.829 Status: Acute (4) Alcohol abuse ICD Code: F10.10 Status: Chronic (5) COPD (chronic obstructive pulmonary disease) ICD Code: J44.9 Status: Chronic (6) DM (diabetes mellitus) ICD Code: E11.9 Status: Acute Assessment and Plan A/P: 1. Pancreatic Abscess: c/o acute onset abdominal pain x4 days, recent "pancreas surgery" at by Dr. Mathias approx 2wks ago for pseudocyst. CT Abd/Pelvis w/ 11.1 x 7 cm abscess at site of previous pseudocyst on July 07, complex 7.3 x 3.8 presumed pseudocyst at aortic bifurcation, similar to July 07 images reviewed by me. GI consulted by ER physician, plan is for drainage by IR with possible transfer back to if drainage unsuccessful. Protonix IV, analgesics/antiemetics as needed. Continue w/ IV Abx. Dr. Bowman ordered 3-D CT of the abdomen and possibly taking patient for surgery, in the meantime we will continue current supportive management Continue current supportive care, monitor BMP CBC, plan for surgery and creatinine necronectomy tomorrow 2. Hypercalcemia: Ca 10.7, IVF for hydration, repeat labs in am. 3. Leukocytosis: WBC 11.1, afebrile. In light of above findings, will continue w/ IV Abx. S/p Azactam/Flagyl in ER. 4. Alcohol Abuse: reports h/o alcohol abuse, however states he quit. Will monitor for possible withdrawal. Resume Folic Acid, Thiamine PO 5. COPD: Chronic Respiratory Failure. Stable. Resume home MDI/Neb 6. DM: Sliding scale w/ Accu-Cheks. Hold Metformin. 7. DVT Prophylaxis: SCD/Teds. Chelsea Bethea MD Sep 19, 2016 10:26
--- NOTE | 2016-09-19 10:36 | HHI.GIFU ---
GI Follow-up Note Consult Follow-up Subjective: Patient laying in bed comfortably, no new complaints. He's scheduled for surgery this afternoon. 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 Available Data (labs, X- Rays, Procedues) : Labs noted. ASSESSMENT/PLAN:Infected pancreatic pseudocyst(s.) He's scheduled for surgery today. It was a pleasure seeing Julian Marti. Entered by: Ivan Álvarez MD Sep 19, 2016 10:36
[2016-09-19] MEDS ORDERED: POTASSIUM CHLOR 10 MEQ PREMIX 100 ML IV ONE (11:00)
--- NOTE | 2016-09-19 11:09 | HHI.PR ---
Objective Vitals Vital Signs Date Time Temp Pulse Resp B/P Pulse Ox O2 Delivery O2 Flow Rate FiO2 09/19/16 08:00 98.1 74 18 144/73 97 09/19/16 08:00 Room Air 09/19/16 04:19 97.3 75 18 128/68 96 09/19/16 04:00 Room Air 09/19/16 01:09 97.6 68 20 127/74 98 09/19/16 00:00 Room Air 09/18/16 20:58 98.6 76 18 150/74 96 09/18/16 20:00 Room Air 09/18/16 17:21 20 09/18/16 16:00 98.4 70 18 124/71 97 09/18/16 12:00 98.3 76 18 109/54 96 09/18/16 11:33 97 Room Air I/O 09/18/16 09/18/16 09/18/16 09/19/16 09/19/16 09/19/16 07:00 15:00 23:00 07:00 15:00 23:00 Intake Total 937 ml 1375 ml 900 ml 918 ml Output Total 425 ml 300 ml 575 ml 500 ml Balance 512 ml 1075 ml 325 ml 418 ml Intake Oral 0 ml 720 ml 240 ml IV Total 937 ml 655 ml 660 ml 918 ml Output Urine Total 425 ml 300 ml 575 ml 500 ml # Bowel Movements 0 1 Result Diagram: 09/17/16 0857 09/19/16 0640 Objective Remarks - - GENERAL: This is a well-nourished, well-developed patient, in no apparent distress. SKIN: No rashes, warm and dry HEAD: Atraumatic. Normocephalic. EYES: Pupils equal round and reactive. Extraocular motions intact. No scleral icterus. ENT: Nose without bleeding, or drainage, Airway patent. NECK: Trachea midline. Supple CARDIOVASCULAR: Regular rate and rhythm without murmurs, gallops, or rubs. RESPIRATORY: Fair air entry bilaterally. No wheezes, rales, or rhonchi. GASTROINTESTINAL: Abdomen soft, more tender to palpation in the Epigastrium , nondistended. Positive bowel sounds MUSCULOSKELETAL: Extremities without clubbing, cyanosis, or edema. Pedal pulses appreciated NEUROLOGICAL: Awake and alert. Moves all extremity. Normal speech.no focal neurological deficit A/P Problem List: (1) Pancreatic abscess ICD Code: K85.90 Status: Acute (2) Hypercalcemia ICD Code: E83.52 Status: Acute (3) Leukocytosis ICD Code: D72.829 Status: Acute (4) Alcohol abuse ICD Code: F10.10 Status: Chronic (5) COPD (chronic obstructive pulmonary disease) ICD Code: J44.9 Status: Chronic (6) DM (diabetes mellitus) ICD Code: E11.9 Status: Acute Assessment and Plan 09/17: Received a call earlier from Dr. Rollins the radiologist informing me that the abscess is not unable to drainage and recommended surgical consult which I placed, and discussed later with Dr. Bowman graciously saw the patient and ordered 3-D CT of the abdomen and possibly taking patient for surgery, in the meantime we will continue current supportive management 09/18: Continue current supportive care, monitor BMP CBC, plan for surgery and creatinine necronectomy tomorrow A/P: 1. Pancreatic Abscess: c/o acute onset abdominal pain x4 days, recent "pancreas surgery" at by Dr. Mathias approx 2wks ago for pseudocyst. CT Abd/Pelvis w.1 x 7 cm abscess at site of previous pseudocyst on July 07, complex 7.3 x 3.8 presumed pseudocyst at aortic bifurcation, similar to July 07 images reviewed by me. GI consulted by ER physician, plan is for drainage by IR with possible transfer back to if drainage unsuccessful. Protonix IV, analgesics/antiemetics as needed. Continue w/ IV Abx. 2. Hypercalcemia: Ca 10.7, IVF for hydration, repeat labs in am. 3. Leukocytosis: WBC 11.1, afebrile. In light of above findings, will continue w/ IV Abx. S/p Azactam/Flagyl in ER. 4. Alcohol Abuse: reports h/o alcohol abuse, however states he quit. Will monitor for possible withdrawal. Resume Folic Acid, Thiamine PO 5. COPD: Chronic Respiratory Failure. Stable. Resume home MDI/Neb 6. DM: Sliding scale w/ Accu-Cheks. Hold Metformin. 7. DVT Prophylaxis: SCD/Teds. Chelsea Bethea MD Sep 19, 2016 11:09
--- NOTE | 2016-09-19 11:28 | EKG ---
Date Performed: 09/19/2016 Time Performed: 07:05:07 PTAGE: 66 years EKG: Sinus rhythm WITH FREQUENT VENTRICULAR PREMATURE COMPLEXES POSSIBLE INFERIOR MYOCARDIAL INFARCTION , PROBABLY OLD Since previous tracing, no significant change noted ABNORMAL RHYTHM ECG PREVIOUS TRACING : 07/07/2016 12.46 DOCTOR: Raudel Rhodes Interpretating Date/Time 09/19/2016 11:27:00
[2016-09-19 12:00] VITALS: BP 126/68; PULSE 59; RESP 18; TEMP 98.3; O2SAT 96
[2016-09-19] MEDS ORDERED: LACTATED RINGER'S 1000 ML INJ 1,000 ML IV ONE (12:00)
[2016-09-19] MEDS ORDERED: SODIUM CHLORID 0.9% 500 ML INJ 500 ML IV ONE (12:00)
[2016-09-19] MEDS ORDERED: PHENYLEPH/NS 1000 MCG/10 ML SYR IV ONE (12:00)
[2016-09-19] MEDS ORDERED: PROPOFOL 200 MG/20 ML AMP IV ONE (12:00)
[2016-09-19] MEDS ORDERED: MIDAZOLAM HCL 2 MG/2 ML VIAL ONE (17:02)
--- NOTE | 2016-09-19 19:12 | HHI.PR ---
cc: Devyn Bowman MD Immediate Post Op Note Procedure Date: Sep 19, 2016 Pre Op Diagnosis: Pancreatic abscess Post Op Diagnosis: Same Surgeon: Devyn Bowman Corporate Real Estate Manager(s): Donato Wallace CFA Procedure: Irrigation and debridement pancreatic abscess with pancreatic necrosectomy Findings: Necrotic tissue retroperitoneum; communicating with posterior wall of stomach Complications: None Specimen(s) removed: Necrotic pancreatic tissue to pathology Culture and sensitivity of retroperitoneal liquid Estimated blood loss: 100 ml Anesthesia: General Drains: EDER, Other (Large channel drain) IVF (1500 ml) Patient to: PACU Patient Condition: Good Date/Time of Procedure: SEE SURGICAL CARE RECORD Devyn Bowman MD Sep 19, 2016 19:12
[2016-09-19] MEDS ORDERED: DO NOT ADM ANY ANTICOAGULANT DRUGS PRN (19:22)
[2016-09-19] MEDS ORDERED: LABETALOL HCL 100 MG/20 ML VIAL ONE (19:27)
[2016-09-19] MEDS ORDERED: GLUCAGON 1 MG/ML VIAL OTHER PRN ×2 (19:30)
[2016-09-19] MEDS ORDERED: DEXTROSE 50% IN WATER 50 ML SYRINGE IV PRN (19:30)
[2016-09-19] MEDS ORDERED: DEXTROSE 50% IN WATER 50 ML VIAL(D50) IV PRN (19:30)
[2016-09-19] MEDS ORDERED: fentaNYL CITRATE 250 MCG/5 ML AMP ONE (19:33)
[2016-09-19 19:50] LABS: HEMATOCRIT 29.1 % (39.0-51.0); MEAN CELL VOLUME 74.4 FL (80.0-100.0); MEAN CORPUSCULAR HEMOGLOBIN 23.7 PG (27.0-34.0); MEAN CORPUSCULAR HGB CONC 31.9 % (32.0-36.0); PLATELET COUNT 309 TH/MM3 (150-450); RED BLOOD COUNT 3.92 MIL/MM3 (4.50-5.90); RED CELL DISTRIBUTION WIDTH 15.8 % (11.6-17.2); REVIEW FLAG FINAL; WHITE BLOOD COUNT 17.7 TH/MM3 (4.0-11.0)
[2016-09-19 19:56] LABS: INTERNATIONAL NORMALIZED RATIO 1.3 RATIO
[2016-09-19] MEDS ORDERED: 1/2 NS + KCL 20 MEQ INJ 1,000 ML ONE (20:07)
[2016-09-19] MEDS ORDERED: *morphine SULFATE 8 MG/ML PERIprocedure ONLY ONE (20:08)
--- NOTE | 2016-09-19 20:08 | RADRPT ---
EXAM DATE/TIME: 09/19/2016 19:32 [facility] COMPARISON: No previous studies available for comparison. INDICATIONS : Central line placement. MEDICAL HISTORY : Chronic obstructive pulmonary disease. Hypertension. SURGICAL HISTORY : None. ENCOUNTER: Initial ACUITY: 1 day PAIN SCORE: Non-responsive. LOCATION: Bilateral chest FINDINGS: There is a right internal jugular central venous catheter with tip at the atriocaval junction. There is a nasogastric tube with tip in the stomach, sidehole near the GE junction. No pneumothorax. No pleural effusion seen. CONCLUSION: Right IJ central venous catheter and nasogastric tube as above. No pneumothorax or other acute compli cation demonstrated. Mason Dahl MD on September 19, 2016 at 20:04 Board Certified Radiologist. This report was verified electronically.
[2016-09-19] MEDS: 1/2 NS + KCL 20 MEQ INJ 1,000 ML IV SCH (20:12)
[2016-09-19 20:31] LABS: ALT (GPT) 12 U/L (12-78); ANION GAP 12 MEQ/L (5-15); AST (GOT) 18 U/L (15-37); BICARBONATE 17.6 MEQ/L (21.0-32.0); BLOOD UREA NITROGEN 6 MG/DL (7-18); CHLORIDE 110 MEQ/L (98-107); GLOMERULAR FILTRATION RATE 135 ML/MIN (>89); MAGNESIUM 0.9 MG/DL (1.5-2.5); SODIUM (NA) 140 MEQ/L (136-145)
[2016-09-19 20:49] LABS: ALKALINE PHOSPHATASE 67 U/L (45-117); TOTAL BILIRUBIN ADULT 0.3 MG/DL (0.2-1.0)
[2016-09-19 21:00] VITALS: BP 176/77; PULSE 103; RESP 40; TEMP 98.1; O2SAT 96
[2016-09-19] MEDS ORDERED: PANTOPRAZOLE SODIUM 40 MG VIAL IV PUSH SCH (21:00)
[2016-09-19] MEDS ORDERED: POTASSIUM CHLOR 20 MEQ PREMIX 100 ML ONE (21:07)
[2016-09-19] MEDS: POTASSIUM CHLOR 20 MEQ PREMIX 100 ML IV SCH ×2 (21:30→23:35)
[2016-09-19 23:00] VITALS: BP 160/72; PULSE 97; RESP 40; TEMP 98; O2SAT 96
[2016-09-20] VITALS (11 sets, daily range): BP systolic 148–164; BP diastolic 73–85; PULSE 96–110; RESP 28–33; TEMP 98.3–98.9; O2SAT 99–100
[2016-09-20] MEDS: INSULIN ASPART SUPPLEMENTAL SCALE SQ SCH ×4 (00:35→18:00)
[2016-09-20] MEDS: MORPHINE SULFATE 4 MG/ML INJ IV PRN ×4 (00:44→17:15)
[2016-09-20] MEDS: 1/2 NS + KCL 20 MEQ INJ 1,000 ML IV SCH (03:31)
[2016-09-20] MEDS: metroNIDAZOLE 500 MG INJ 100 ML IV SCH ×3 (03:33→22:10)
[2016-09-20 05:43] LABS: AUTOMATED NEUTROPHIL # 20.3 TH/MM3 (1.8-7.7); BASOPHIL % 0.2 % (0.0-2.0); HEMATOCRIT 30.3 % (39.0-51.0); HEMO FLAGS DIFF FINAL; LYMPH % 2.4 % (9.0-44.0); LYMPHOCYTE # 0.5 TH/MM3 (1.0-4.8); MEAN CELL VOLUME 74.2 FL (80.0-100.0); MEAN CORPUSCULAR HEMOGLOBIN 23.3 PG (27.0-34.0); MEAN CORPUSCULAR HGB CONC 31.4 % (32.0-36.0); MONO % 7.6 % (0.0-8.0); NEUT % 89.8 % (16.0-70.0); PLATELET COUNT 314 TH/MM3 (150-450); RED BLOOD COUNT 4.09 MIL/MM3 (4.50-5.90); RED CELL DISTRIBUTION WIDTH 16.2 % (11.6-17.2); WHITE BLOOD COUNT 22.6 TH/MM3 (4.0-11.0)
[2016-09-20 05:56] LABS: BICARBONATE 17.6 MEQ/L (21.0-32.0); POTASSIUM 4.6 MEQ/L (3.5-5.1)
[2016-09-20] MEDS: GABAPENTIN 300 MG CAP PO SCH ×3 (09:00→18:00)
[2016-09-20] MEDS: ALLOPURINOL 300 MG TAB PO SCH (09:00)
[2016-09-20] MEDS: THIAMINE HCL 100 MG TAB PO SCH (09:00)
[2016-09-20] MEDS: amLODIPine BESYLATE 5 MG TAB PO SCH (09:00)
[2016-09-20] MEDS: LIPASE/PROTEASE/AMYLASE (24,000/76,000/120,000) CAP PO SCH (09:00)
[2016-09-20] MEDS: FOLIC ACID 1 MG TAB PO SCH (09:00)
[2016-09-20] MEDS: cloNIDine HCL 0.2 MG TAB PO SCH (09:00)
[2016-09-20] MEDS: ROFLUMILAST 500 MCG TAB PO SCH (09:00)
[2016-09-20] MEDS: DOCUSATE SODIUM 50 MG/SENNA 8.6 MG TAB PO SCH (09:00)
--- NOTE | 2016-09-20 09:04 | HHI.GIFU ---
GI Follow-up Note Consult Follow-up Subjective: Patient laying in bed comfortably, no new complaints except post- op pain. He says the pain medications aren't controlling it adequately. Objective: PHYSICAL EXAMINATION: Vitals signs noted: HTN No fever HEENT:EOMI. NECK: Neck is supple, no JVD, no lymphadenopathy. ABDOMEN: Quiet. DIGITAL PRESS OPERATOR: alert and oriented times three. Available Data (labs, X- Rays, Procedues) : Low Magnesium level. ASSESSMENT/PLAN: Pancreatic abscess (es) s/p surgical drainage. Plans per surgeons. Will see PRN. It was a pleasure seeing Julian Marti. Entered by: Ivan Álvarez MD Sep 20, 2016 09:04
[2016-09-20] MEDS ORDERED: ACETAMINOPHEN 1000 MG/100 ML VIAL IV PRN (09:30)
[2016-09-20] MEDS: BUDESONIDE-FORMOTEROL 160/4.5 MCG INHALER INH SCH ×2 (09:33→22:09)
[2016-09-20] MEDS: SODIUM CHLORIDE 0.9% FLUSH 10 ML FLUSH IV FLUSH SCH ×2 (09:33→22:11)
[2016-09-20] MEDS ORDERED: [UNRECOGNIZED DRUG - OTHER] IV-CENTRAL SCH (10:00)
[2016-09-20] MEDS: SODIUM CHLOR 0.9% 1000 ML INJ 1,000 ML IV SCH (10:00)
[2016-09-20] MEDS ORDERED: D5W IV-CENTRAL SCH (10:00)
[2016-09-20] MEDS ORDERED: PANTOPRAZOLE SODIUM 40 MG VIAL IV PUSH SCH (10:00)
[2016-09-20] MEDS ORDERED: AMINO ACID IV-CENTRAL SCH (10:00)
[2016-09-20] MEDS: CIPROFLOXACIN 400 MG PREMIX 200 ML IV SCH ×2 (10:59→23:49)
[2016-09-20] MEDS: MAGNESIUM SULFATE 1 GM PREMIX 100 ML IV SCH ×2 (10:59→11:39)
[2016-09-20] MEDS: ONDANSETRON HCL 4 MG/2 ML VIAL IVP PRN (10:59)
--- NOTE | 2016-09-20 11:50 | HHI.PR ---
Subjective Subjective Notes Resting in bed Just recently had some nausea Objective Vitals/I&O Vital Signs Date Time Temp Pulse Resp B/P Pulse Ox O2 Delivery O2 Flow Rate FiO2 09/20/16 08:47 100 Nasal Cannula 3.00 09/20/16 03:00 98.9 96 28 154/73 Labs Laboratory Tests Test 09/19/16 09/19/16 09/20/16 16:55 19:42 05:00 Blood Type O POSITIVE Antibody Screen NEGATIVE Crossmatch Leukocyte-Reduced Red Blood Cells Blood Bank Comment White Blood Count 17.7 22.6 Red Blood Count 3.92 4.09 Hemoglobin 9.3 9.5 Hematocrit 29.1 30.3 Mean Corpuscular Volume 74.4 74.2 Mean Corpuscular Hemoglobin 23.7 23.3 Mean Corpuscular Hemoglobin 31.9 31.4 Concent Red Cell Distribution Width 15.8 16.2 Platelet Count 309 314 Mean Platelet Volume 8.4 9.8 Prothrombin Time 14.0 Prothromb Time International 1.3 Ratio Sodium Level 140 138 Potassium Level 3.0 4.6 Chloride Level 110 109 Carbon Dioxide Level 17.6 17.6 Anion Gap 12 11 Blood Urea Nitrogen 6 5 Creatinine 0.71 0.64 Estimat Glomerular Filtration 135 152 Rate Random Glucose 167 153 Calcium Level 8.7 8.9 Magnesium Level 0.9 Total Bilirubin 0.3 Aspartate Amino Transf 18 (AST/SGOT) Alanine Aminotransferase 12 (ALT/SGPT) Alkaline Phosphatase 67 Total Protein 6.2 Albumin 2.6 Triglycerides Level 94 Neutrophils (%) (Auto) 89.8 Lymphocytes (%) (Auto) 2.4 Monocytes (%) (Auto) 7.6 Eosinophils (%) (Auto) 0.0 Basophils (%) (Auto) 0.2 Neutrophils # (Auto) 20.3 Lymphocytes # (Auto) 0.5 Monocytes # (Auto) 1.7 Eosinophils # (Auto) 0.0 Basophils # (Auto) 0.0 CBC Comment DIFF FINAL Differential Comment Date/Time Procedure Status Source Growth 09/19/16 00:00 Gram Stain - Final Resulted Wound Other 09/19/16 00:00 Wound Culture Resulted Wound Other Pending 09/19/16 00:00 Fungal Smear - Final Resulted Wound Other FEW BUDDING YEAST CELLS 09/19/16 00:00 Fungal Culture Resulted Wound Other Pending 09/19/16 00:00 Acid Fast Stain Received Wound Other Pending 09/19/16 00:00 Mycobacterial Culture Received Wound Other Pending Cardiovascular: Regular Lungs: Clear Abdomen: Other (bandage in place c/d/i; EDER x2 with SS drainage; abdomen soft; tender with palpation) Extremities: No edema A/P Assessment and Plan 66 year old male with pancreatic abscess POD1 I*D pancreatis abscess with pancreatic necrosectomy -STRICT NPO -Pain control -Okay to DC Art line -Continue TPN -Await cultures -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 SHEYLA Bustos -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 Dr. Bowman Attending Note - Dr. Bowman Abdomen soft but tender appropriately Correct electrolytes Start TPN; Keep NPO strictly Keep in ISC today The exam, history, and the medical decision-making described in the above note were completed with the assistance of the mid-level provider. I reviewed and agree with the findings presented. I attest that I had a [id number] encounter with the patient on the same day, and personally performed and documented my assessment and findings in the medical record. Sabine Monatgue Sep 20, 2016 11:50 Devyn Bowman MD Sep 20, 2016 19:44
[2016-09-20] MEDS: PANTOPRAZOLE SODIUM 40 MG VIAL IV PUSH SCH (13:26)
[2016-09-20] MEDS ORDERED: NALOXONE HCL 0.4 MG/ML AMP IV PRN (14:45)
--- NOTE | 2016-09-20 17:03 | HHI.PR ---
Subjective Remarks as per RN the patient has had PVC's on telemetry Patient c/o abdominal pain wbc trending up afebrile Objective Vitals Vital Signs Date Time Temp Pulse Resp B/P Pulse Ox O2 Delivery O2 Flow Rate FiO2 09/20/16 08:47 100 Nasal Cannula 3.00 09/20/16 03:00 98.9 96 28 154/73 100 09/20/16 00:49 26 09/19/16 23:00 98.0 97 40 160/72 96 09/19/16 23:00 Nasal Cannula 3.00 09/19/16 21:00 98.1 103 40 176/77 96 09/19/16 21:00 96 Nasal Cannula 3.00 09/19/16 20:30 97.4 85 30 146/67 97 Nasal Cannula 3 141/66 09/19/16 20:15 86 24 147/69 97 Nasal Cannula 3 09/19/16 20:00 81 28 128/65 97 Nasal Cannula 3 154/73 09/19/16 19:45 80 34 152/86 99 Nasal Cannula 3 162/80 09/19/16 19:30 113 36 177/84 98 Nasal Cannula 3 215/88 09/19/16 19:19 97.8 111 24 178/79 99 Nasal Cannula 3 184/77 I/O 09/19/16 09/19/16 09/19/16 09/20/16 09/20/16 09/20/16 07:00 15:00 23:00 07:00 15:00 23:00 Intake Total 918 ml 1027 ml 2200 ml 1405 ml 1396 ml Output Total 500 ml 1295 ml 1240 ml 900 ml 1555 ml Balance 418 ml -268 ml 960 ml 505 ml -159 ml Intake Oral 0 ml 0 ml 0 ml IV Total 918 ml 1027 ml 300 ml 1405 ml 1054 ml TPN/PPN 342 ml Other 1900 ml Output Urine Total 500 ml 1295 ml 750 ml 775 ml 1550 ml Gastric Drainage Total 0 ml 100 ml 5 ml Drainage Total 90 ml 25 ml Estimated Blood Loss 100 ml Other 300 ml # Bowel Movements 0 0 0 Result Diagram: 09/20/16 0500 09/20/16 0500 Imaging Last Impressions Chest X-Ray 09/19/16 0000 Signed Impressions: Service Date/Time: Monday, September 19, 2016 19:32 - CONCLUSION: Right IJ central venous catheter and nasogastric tube as above. No pneumothorax or other acute complication demonstrated. Mason Dahl MD Abdomen/Pelvis CT 09/17/16 0000 Signed Impressions: Service Date/Time: Saturday, September 17, 2016 15:26 - CONCLUSION: 1. No evidence of vascular compromise. 2. Peripancreatic and periduodenal fluid collections are unchanged. Mason Dahl MD Objective Remarks GENERAL: This is a very thin, malnourished, in no apparent distress. SKIN: No rashes, warm and dry HEAD: Atraumatic. Normocephalic. EYES: Pupils equal round and reactive. Extraocular motions intact. No scleral icterus. ENT: Nose without bleeding, or drainage, Airway patent. NECK: Trachea midline. Supple CARDIOVASCULAR: Regular rate and rhythm without murmurs, gallops, or rubs. RESPIRATORY: Fair air entry bilaterally. No wheezes, rales, or rhonchi. GASTROINTESTINAL: Abdominal binder observed, Abdomen soft but diffusely tender, mildly distended. Absent bowel sounds. EDER drain with serosanguineous fluid. MUSCULOSKELETAL: Extremities without clubbing, cyanosis, or edema. Pedal pulses appreciated NEUROLOGICAL: Awake and alert. Moves all extremity. Normal speech.no focal neurological deficit Procedures sp Exploratory laparotomy, irrigation and debridement of peripancreatic abscess and necrosectomy Medications and IVs Current Medications Medications (Trade) Dose Ordered Sig/Tamera Route Start Time Stop Time Status Last Admin Ciprofloxacin/ Dextrose 200 ml @ 200 mls/hr Q12H IV 09/17/16 09:00 09/20/16 10:59 (Flagyl 500 Mg Inj) 100 ml @ 100 mls/hr Q8H IV 09/17/16 04:00 09/20/16 11:39 (NS Flush) 2 ml UNSCH PRN IV FLUSH 09/16/16 21:00 (NS Flush) 2 ml BID IV FLUSH 09/16/16 21:00 09/20/16 09:33 (Zofran Inj) 4 mg Q6H PRN IVP 09/16/16 21:00 09/20/16 10:59 (Tylenol) 650 mg Q6H PRN PO 09/16/16 21:00 Hold (Roxicodone) 5 mg Q4H PRN PO 09/16/16 21:00 Hold 09/16/16 22:52 (Fátima-Colace) 1 tab BID PO 09/16/16 21:00 09/18/16 20:08 (Milk Of Magnesia Liq) 30 ml Q12H PRN PO 09/16/16 21:00 (Senokot) 17.2 mg Q12H PRN PO 09/16/16 21:00 (Dulcolax Supp) 10 mg DAILY PRN RECTAL 09/16/16 21:00 (Lactulose Liq) 30 ml DAILY PRN PO 09/16/16 21:00 (Zyloprim) 300 mg DAILY PO 09/17/16 09:00 Hold 09/19/16 09:58 (Norvasc) 5 mg BID PO 09/17/16 09:00 Hold 09/19/16 09:58 (Symbicort 160-4.5 Inh) 2 puff Q12HR INH 09/17/16 09:00 09/20/16 09:33 (Catapres) 0.2 mg Q12HR PO 09/17/16 09:00 Hold 09/19/16 09:58 (Neurontin) 600 mg TID PO 09/17/16 09:00 09/19/16 09:58 (Daliresp) 500 mcg DAILY PO 09/17/16 09:00 09/19/16 09:58 (Vitamin B1) 100 mg DAILY PO 09/17/16 09:00 09/18/16 08:19 (Ambien) 5 mg HS PRN PO 09/17/16 02:15 09/18/16 22:57 (Folate) 1 mg DAILY PO 09/17/16 09:00 09/18/16 08:18 (Creon 24-76-120) 2 cap TID PO 09/17/16 13:00 Hold 09/18/16 17:07 (NovoLOG SUPPLEMENTAL SCALE) 1 Q6HR SQ 09/20/16 00:00 09/20/16 18:00 (D50w (Syr) Inj) 50 ml UNSCH PRN IV 09/19/16 19:30 (Glucagon Inj) 1 mg UNSCH PRN OTHER 09/19/16 19:30 Morphine Sulfate 3 mg 3 mg Q1H PRN IV 09/19/16 20:00 09/20/16 17:15 Multivitamins 10 ml/Folic Acid 1 mg/Insulin Human Regular 20 units/ Famotidine 40 mg/ Amino Acids/ Electrolytes/ Dextrose 2,014.4 ml @ 83 mls/hr Q24H IV-CENTRAL 09/20/16 20:00 Fat Emulsion Intravenous 250 ml @ 10 mls/hr Q24H IV-CENTRAL 09/20/16 20:00 (Clinimix E 4.25/ 25) 1,000 ml @ 83 mls/hr Q12H3M IV-CENTRAL 09/20/16 10:00 09/20/16 22:02 09/20/16 09:33 (Ofirmev Inj) 650 mg Q6HR PRN IV 09/20/16 09:30 Labetalol HCl 10 mg 10 mg Q4H PRN IV PUSH 09/20/16 09:30 (NS 1000 ml Inj) 1,000 ml @ 40 mls/hr Q24H IV 09/20/16 10:00 09/20/16 10:00 (Protonix Inj) 40 mg Q24H IV PUSH 09/20/16 11:30 09/20/16 13:26 (Narcan Inj) 0.4 mg UNSCH PRN IV 09/20/16 14:45 (Morphine 1 Mg/ ml TRAFFIC CIRCUIT ENGINEER) 30 mg UNSCH IV 09/20/16 14:45 09/20/16 17:56 TRAFFIC CIRCUIT ENGINEER Dosage Infused (Pha) 1 1 Q8HR .XX 09/20/16 22:00 (Magnesium Sulfate 1 Gm Premix) 100 ml @ 100 mls/hr Q1H IV 09/20/16 20:00 09/20/16 21:59 Urinary Catheter: No Vascular Central Line Catheter: No A/P Problem List: (1) Pancreatic abscess ICD Code: K85.90 Status: Acute (2) Hypercalcemia ICD Code: E83.52 Status: Acute (3) Leukocytosis ICD Code: D72.829 Status: Acute (4) Alcohol abuse ICD Code: F10.10 Status: Chronic (5) COPD (chronic obstructive pulmonary disease) ICD Code: J44.9 Status: Chronic (6) DM (diabetes mellitus) ICD Code: E11.9 Status: Acute Assessment and Plan 1. Pancreatic Abscess: c/o acute onset abdominal pain x4 days, recent "pancreas surgery" at by Dr. Mathias approx 2wks ago for pseudocyst. CT Abd/Pelvis w/ 11.1 x 7 cm abscess at site of previous pseudocyst on July 07, complex 7.3 x 3.8 presumed pseudocyst at aortic bifurcation, similar to July 07 images reviewed by me. Surgery and GI consulted. 3-D CT of the abdomen and possibly taking patient for surgery, in the meantime we will continue current supportive management 09/20 Patient is sp exploratory laparotomy, irrigation and drainage of pancreatic abscess. Management as per general surgery. Pain control with morphine TRAFFIC CIRCUIT ENGINEER. Continue IV Ciprofloxacin and IV Flagyl. Wound culture is growing budding yeasts will Add Fluconazole IV. 2. Hypercalcemia: Ca 10.7, IVF for hydration. Repeat Calcium normal.. 3. Leukocytosis: WBC trending up, now 22K. In light of above findings, will continue w/ IV Abx. S/p Azactam/Flagyl in ER. 4. Alcohol Abuse: reports h/o alcohol abuse, however states he quit. Continue to monitor for possible withdrawal. Resume Folic Acid, Thiamine PO 5. COPD: Chronic Respiratory Failure. Stable. Resume home MDI/Neb 6. DM: Sliding scale w/ Accu-Cheks. Hold Metformin. Blood sugars uncontrolled. Will start patient on insulin Levemir. 7. DVT Prophylaxis: SCD/Teds, start on chemoprophylaxis with heparin/lovenox SQ when ok with surgery. Discharge Planning Continue to monitor in the intensive care unit. Onel Amin MD Sep 20, 2016 17:03
[2016-09-20] MEDS: MORPHINE SULFATE 30 MG/30 ML PCA IV SCH (17:56)
--- NOTE | 2016-09-20 17:58 | MP ---
cc: JEN BOWMAN M.D. DATE OF SURGERY: 09/19/2016 PROCEDURE: Irrigation and debridement, pancreatic abscess, with pancreatic necrosectomy. PREOPERATIVE DIAGNOSIS: Large pancreatic abscess, undrainable by percutaneous means, creating nausea and vomiting. POSTOPERATIVE DIAGNOSIS: Large pancreatic abscess, undrainable by percutaneous means, creating nausea and vomiting. ANESTHESIA: General endotracheal anesthesia SURGEON: Cmaila Bowman MD. ESTIMATED BLOOD LOSS: 100 mL FLUIDS: 1500 mL Crystalloid SALVAGER: Isadora Santiago CFA COMPLICATIONS None. DRAINS: DEER, large channel drain. SPECIMEN Pancreatic tissue to pathology with culture and sensitivity. PROCEDURE IN DETAIL The patient was taken to the operating room and placed on the operating table in the supine position. After an adequate level of general endotracheal anesthesia was achieved, the patient had placement of an arterial line in the left wrist and a central line by anesthesia. The abdomen was then sterilely prepped and draped. Time-out was taken confirming the correct patient site and procedure to be performed. Incision was made through the old incision and carried down through the fascia sharply. The peritoneal cavity was directly visualized. The cavity required some careful dissection with both sharp and blunt dissection to free up the previous adhesions from the patient's previous surgery. When this had been completed the anterior abdominal wall was dissected away and omental adhesions were taken down off the anterior abdominal wall. Care was taken then to go down inferior to the transverse colon. This allowed for entry into the abscess cavity. This was comprised of a large amount of necrotic tissue. This was gently bluntly dissected away. This was then irrigated and was seen to track superiorly and further deeply. Careful palpation of this revealed entry into the posterior wall of the stomach. After complete irrigation and removal of as much necrotic tissue as possible, this was oversewn with 2-0 silk sutures in an interrupted fashion. A large channel drain was then brought out via separate stab incision in the right midabdomen and placed into the cavity that had the necrotic tissue. A second Jimbo drain was placed between the liver and the lesser curve of the stomach to drain this portion as well. A nasogastric tube was left in place and confirmed to be within the stomach. Both drains were fixed with nylon suture. The abdomen was then closed with both #2 nylon retention sutures and #1 PDS in a looped fashion. The retention sutures were cinched down over a red rubber bridge and the skin closed with lowell. The patient was extubated and taken back to the recovery room in stable condition. He tolerated the procedure well. MD JAI Hermosillo/MEMO /7:39 PM /5:11 PM
[2016-09-20 18:43] LABS: ALKALINE PHOSPHATASE 65 U/L (45-117); ALT (GPT) 11 U/L (12-78); ANION GAP 12 MEQ/L (5-15); AST (GOT) 13 U/L (15-37); BICARBONATE 19.5 MEQ/L (21.0-32.0); BLOOD UREA NITROGEN 9 MG/DL (7-18); CHLORIDE 107 MEQ/L (98-107); GLOMERULAR FILTRATION RATE 126 ML/MIN (>89); MAGNESIUM 1.7 MG/DL (1.5-2.5); POTASSIUM 3.8 MEQ/L (3.5-5.1); SODIUM (NA) 138 MEQ/L (136-145); TOTAL BILIRUBIN ADULT 0.3 MG/DL (0.2-1.0)
--- NOTE | 2016-09-20 20:22 | EKG ---
Date Performed: 09/20/2016 Time Performed: 17:38:20 PTAGE: 66 years EKG: Sinus tachycardia with frequent PVCs Lateral ST changes are nonspecific Abnormal ECG COMPAR ED TO PRIOR ELECTROCARDIOGRAM, Anterolateral T wave amplitude has decreased. PREVIOUS TRACING : 09/19/2016 07.05 DOCTOR: Maikel Ayala Interpretating Date/Time 09/20/2016 20:22:05
[2016-09-20] MEDS ORDERED: PIPERACIL-TAZO 4.5 GM PREMIX 100 ML IV SCH (20:45)
[2016-09-20] MEDS: [UNRECOGNIZED DRUG - OTHER] IV-CENTRAL SCH ×5 (21:33)
[2016-09-20] MEDS: MULTIVITAMIN IV-CENTRAL SCH ×5 (21:33)
[2016-09-20] MEDS: INSULIN HUMAN REGULAR IV-CENTRAL SCH ×5 (21:33)
[2016-09-20] MEDS: FOLIC ACID IV-CENTRAL SCH ×5 (21:33)
[2016-09-20] MEDS: RESP: ALBUTEROL 2.5 MG/3 ML NEB (PRN) NEB (22:00)
[2016-09-20] MEDS: PCA - TOTAL MG MORPHINE DELIVERED PER SHIFT SCH (22:00)
[2016-09-20] MEDS ORDERED: CLON0.2D T-DERMAL (22:06)
[2016-09-20] MEDS: FAT EMULSION 20% INJ 250 ML (@10 mls/hr) IV-CENTRAL SCH (22:09)
[2016-09-20] MEDS: FLUCONAZOLE 200 MG PREMIX BAG 100 ML IV SCH (22:11)
[2016-09-20] MEDS ORDERED: cloNIDine HCL 0.2 MG/24 HR PATCH T-DERMAL SCH (22:15)
[2016-09-20] MEDS: MAGNESIUM SULFAT 1 GM PREMIX 100 ML x2 bags IV SCH ×2 (22:18→23:49)
[2016-09-20] MEDS: LABETALOL HCL 100 MG/20 ML VIAL IV PUSH PRN (22:29)
[2016-09-21] VITALS (13 sets, daily range): BP systolic 122–169; BP diastolic 59–112; PULSE 88–118; RESP 23–27; TEMP 98.1–98.6; O2SAT 99–100
[2016-09-21] MEDS: INSULIN ASPART SUPPLEMENTAL SCALE SQ SCH ×4 (01:28→18:00)
[2016-09-21] MEDS: metroNIDAZOLE 500 MG INJ 100 ML IV SCH ×4 (03:22→22:10)
[2016-09-21 05:20] LABS: AUTOMATED NEUTROPHIL # 24.2 TH/MM3 (1.8-7.7); BASOPHIL % 0.1 % (0.0-2.0); HEMATOCRIT 29.8 % (39.0-51.0); LYMPH % 3.7 % (9.0-44.0); LYMPHOCYTE # 1.1 TH/MM3 (1.0-4.8); MEAN CELL VOLUME 73.7 FL (80.0-100.0); MEAN CORPUSCULAR HEMOGLOBIN 23.8 PG (27.0-34.0); MEAN CORPUSCULAR HGB CONC 32.3 % (32.0-36.0); MONO % 10.2 % (0.0-8.0); PLATELET COUNT 325 TH/MM3 (150-450); RED BLOOD COUNT 4.04 MIL/MM3 (4.50-5.90); RED CELL DISTRIBUTION WIDTH 15.8 % (11.6-17.2); WHITE BLOOD COUNT 28.1 TH/MM3 (4.0-11.0)
[2016-09-21 05:28] LABS: HEMO FLAGS AUTO DIFF
[2016-09-21 05:39] LABS: ALT (GPT) 11 U/L (12-78); ANION GAP 8 MEQ/L (5-15); AST (GOT) 17 U/L (15-37); BICARBONATE 22.8 MEQ/L (21.0-32.0); BLOOD UREA NITROGEN 10 MG/DL (7-18); CHLORIDE 108 MEQ/L (98-107); GLOMERULAR FILTRATION RATE 130 ML/MIN (>89); MAGNESIUM 1.9 MG/DL (1.5-2.5); POTASSIUM 3.3 MEQ/L (3.5-5.1); SODIUM (NA) 139 MEQ/L (136-145)
[2016-09-21 05:41] LABS: ALKALINE PHOSPHATASE 68 U/L (45-117); TOTAL BILIRUBIN ADULT 0.2 MG/DL (0.2-1.0)
[2016-09-21] MEDS: PCA - TOTAL MG MORPHINE DELIVERED PER SHIFT SCH ×3 (06:00→22:00)
[2016-09-21] MEDS: LABETALOL HCL 100 MG/20 ML VIAL IV PUSH PRN ×2 (06:36→16:11)
[2016-09-21 07:07] LABS: SCAN/DIFF AUTO DIFF CONFIRMED
[2016-09-21 07:08] LABS: KERATOCYTES OCC (NORMAL)
[2016-09-21 07:09] LABS: ACANTHOCYTES OCC (NORMAL); BURR CELLS 1+ (NORMAL)
[2016-09-21] MEDS: POTASSIUM CHLOR 20 MEQ PREMIX 100 ML IV SCH ×2 (08:54→09:50)
[2016-09-21] MEDS: BUDESONIDE-FORMOTEROL 160/4.5 MCG INHALER INH SCH ×2 (08:55→21:00)
[2016-09-21] MEDS: SODIUM CHLOR 0.9% 1000 ML INJ 1,000 ML IV SCH (08:55)
[2016-09-21] MEDS: SODIUM CHLORIDE 0.9% FLUSH 10 ML FLUSH IV FLUSH SCH ×2 (08:55→22:13)
[2016-09-21] MEDS ORDERED: POTASSIUM PHOSPHATE INJ 15 MMOL in SODIUM CHLORIDE 0.9% INJ 150 ML IV ONE ×2 (09:00→20:00)
[2016-09-21] MEDS: INSULIN DETEMIR 100 UNITS/ML VIAL SQ SCH ×2 (09:00→22:21)
[2016-09-21] MEDS: CIPROFLOXACIN 400 MG PREMIX 200 ML IV SCH ×2 (10:57→22:08)
[2016-09-21] MEDS: PANTOPRAZOLE SODIUM 40 MG VIAL IV PUSH SCH (10:57)
--- NOTE | 2016-09-21 14:17 | HHI.PR ---
Subjective Subjective Notes Resting in bed Has pain when he coughs but otherwise uneventful day SHEYLA Rivera at bedside Objective Vitals/I&O Vital Signs Date Time Temp Pulse Resp B/P Pulse Ox O2 Delivery O2 Flow Rate FiO2 09/21/16 14:00 118 09/21/16 14:00 26 09/21/16 12:00 98.3 157/77 100 09/21/16 07:00 Nasal Cannula 3.00 Labs Laboratory Tests Test 09/20/16 09/21/16 17:10 04:25 Sodium Level 138 139 Potassium Level 3.8 3.3 Chloride Level 107 108 Carbon Dioxide Level 19.5 22.8 Anion Gap 12 8 Blood Urea Nitrogen 9 10 Creatinine 0.75 0.73 Estimat Glomerular Filtration 126 130 Rate Random Glucose 205 215 Calcium Level 9.2 9.4 Magnesium Level 1.7 1.9 Total Bilirubin 0.3 0.2 Aspartate Amino Transf 13 17 (AST/SGOT) Alanine Aminotransferase 11 11 (ALT/SGPT) Alkaline Phosphatase 65 68 Total Protein 6.6 6.7 Albumin 2.7 2.7 White Blood Count 28.1 Red Blood Count 4.04 Hemoglobin 9.6 Hematocrit 29.8 Mean Corpuscular Volume 73.7 Mean Corpuscular Hemoglobin 23.8 Mean Corpuscular Hemoglobin 32.3 Concent Red Cell Distribution Width 15.8 Platelet Count 325 Mean Platelet Volume 9.8 Neutrophils (%) (Auto) 86.0 Lymphocytes (%) (Auto) 3.7 Monocytes (%) (Auto) 10.2 Eosinophils (%) (Auto) 0.0 Basophils (%) (Auto) 0.1 Neutrophils # (Auto) 24.2 Lymphocytes # (Auto) 1.1 Monocytes # (Auto) 2.9 Eosinophils # (Auto) 0.0 Basophils # (Auto) 0.0 CBC Comment AUTO DIFF Differential Comment AUTO DIFF CONFIRMED Roge Cells 1+ Acanthocytes OCC Keratocytes OCC Phosphorus Level 1.2 Date/Time Procedure Status Source Growth 09/19/16 00:00 Gram Stain - Final Resulted Wound Other 09/19/16 00:00 Wound Culture - Preliminary Resulted Lou Albicans Gram Negative Daniel 09/19/16 00:00 Fungal Smear - Final Resulted Wound Other FEW BUDDING YEAST CELLS 09/19/16 00:00 Fungal Culture Resulted Wound Other Pending 09/19/16 00:00 Acid Fast Stain - Final Resulted Wound Other NO ACID FAST BACILLI SEEN 09/19/16 00:00 Mycobacterial Culture Resulted Wound Other Pending Cardiovascular: Regular Lungs: Clear Abdomen: Other (mildly distended; dressing in place; EDER x2 with SS drainage ) Extremities: No edema Narrative Exam Central line with PICC in place A/P Assessment and Plan 66 year old male with pancreatic abscess POD2 I&D pancreatis abscess with pancreatic necrosectomy -STRICT NPO -Pain control--continue MACHINE STAPLER -Clonidine patch started -WBC elevated; continue to monitor labs and for fevers -Continue TPN -Await cultures -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 SHEYLA Rivera -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 Dr. Bowman Attending Note - Dr. Bowman Wound with minimal drainage; retention sutures intact EDER drains with minimal serosanguinous drainage Stable Continue TPN for one week. The exam, history, and the medical decision-making described in the above note were completed with the assistance of the mid-level provider. I reviewed and agree with the findings presented. I attest that I had a [id number] encounter with the patient on the same day, and personally performed and documented my assessment and findings in the medical record. Sabine Montague Sep 21, 2016 14:17 Devyn Bowman MD Sep 23, 2016 11:44
[2016-09-21 18:51] LABS: POTASSIUM 3.6 MEQ/L (3.5-5.1)
[2016-09-21] MEDS: ENOXAPARIN SODIUM 40 MG/0.4 ML SYRINGE SQ SCH (18:53)
--- NOTE | 2016-09-21 19:05 | HHI.PR ---
Subjective Remarks Patient c/o abdominal pain improved after being started on salesperson stereo equipment morphine pump states is passing gas afebrile tachycardic BP elevated no reports of PVC's Objective Vitals Vital Signs Date Time Temp Pulse Resp B/P Pulse Ox O2 Delivery O2 Flow Rate FiO2 09/21/16 18:00 98 09/21/16 16:00 98.3 88 23 169/77 100 09/21/16 16:00 88 09/21/16 14:00 118 09/21/16 14:00 26 09/21/16 12:00 98.3 104 26 157/77 100 09/21/16 12:00 104 09/21/16 10:00 107 09/21/16 08:00 93 09/21/16 08:00 98.2 90 27 164/84 99 09/21/16 07:00 99 Nasal Cannula 3.00 09/21/16 06:00 25 09/21/16 06:00 106 09/21/16 04:00 98.1 105 27 151/59 99 09/21/16 04:00 105 09/21/16 02:00 101 09/21/16 00:00 98.6 96 27 122/90 99 09/21/16 00:00 96 09/20/16 22:00 102 09/20/16 22:00 24 09/20/16 20:59 99 Nasal Cannula 3.00 09/20/16 20:00 110 09/20/16 20:00 98.3 110 30 152/85 99 I/O 09/20/16 09/20/16 09/20/16 09/21/16 09/21/16 09/21/16 07:00 15:00 23:00 07:00 15:00 23:00 Intake Total 1405 ml 1396 ml 820 ml 1336 ml 1236 ml Output Total 900 ml 1555 ml 1620 ml 1950 ml 1860 ml Balance 505 ml -159 ml -800 ml -614 ml -624 ml Intake Oral 0 ml IV Total 1405 ml 1054 ml 500 ml 1336 ml 575 ml TPN/PPN 342 ml 320 ml 590 ml Lipid 71 ml Output Urine Total 775 ml 1550 ml 1600 ml 1650 ml 1550 ml Gastric Drainage Total 100 ml 5 ml 10 ml 290 ml 290 ml Drainage Total 25 ml 10 ml 10 ml 20 ml # Bowel Movements 0 0 0 0 Result Diagram: 09/21/16 0425 09/21/16 1741 Imaging Last Impressions Chest X-Ray 09/19/16 0000 Signed Impressions: Service Date/Time: Monday, September 19, 2016 19:32 - CONCLUSION: Right IJ central venous catheter and nasogastric tube as above. No pneumothorax or other acute complication demonstrated. Mason Dahl MD Abdomen/Pelvis CT 09/17/16 0000 Signed Impressions: Service Date/Time: Saturday, September 17, 2016 15:26 - CONCLUSION: 1. No evidence of vascular compromise. 2. Peripancreatic and periduodenal fluid collections are unchanged. Mason Dahl MD Objective Remarks GENERAL: This is a very thin, malnourished, in no apparent distress. SKIN: No rashes, warm and dry HEAD: Atraumatic. Normocephalic. EYES: Pupils equal round and reactive. Extraocular motions intact. No scleral icterus. ENT: Nose without bleeding, or drainage, Airway patent. NECK: Trachea midline. Supple CARDIOVASCULAR: Regular rate and rhythm without murmurs, gallops, or rubs. RESPIRATORY: Fair air entry bilaterally. No wheezes, rales, or rhonchi. GASTROINTESTINAL: Abdominal binder observed, Abdomen soft but diffusely tender, mildly distended. Absent bowel sounds. EDER drain with serosanguineous fluid. MUSCULOSKELETAL: Extremities without clubbing, cyanosis, or edema. Pedal pulses appreciated NEUROLOGICAL: Awake and alert. Moves all extremity. Normal speech.no focal neurological deficit Procedures sp Exploratory laparotomy, irrigation and debridement of peripancreatic abscess and necrosectomy Medications and IVs Current Medications Medications (Trade) Dose Ordered Sig/Tamera Route Start Time Stop Time Status Last Admin (NS Flush) 2 ml UNSCH PRN IV FLUSH 09/16/16 21:00 (NS Flush) 2 ml BID IV FLUSH 09/16/16 21:00 09/21/16 08:55 (Zofran Inj) 4 mg Q6H PRN IVP 09/16/16 21:00 09/20/16 10:59 (Tylenol) 650 mg Q6H PRN PO 09/16/16 21:00 Hold (Roxicodone) 5 mg Q4H PRN PO 09/16/16 21:00 Hold 09/16/16 22:52 (Fátima-Colace) 1 tab BID PO 09/16/16 21:00 Hold 09/18/16 20:08 (Milk Of Magnesia Liq) 30 ml Q12H PRN PO 09/16/16 21:00 Hold (Senokot) 17.2 mg Q12H PRN PO 09/16/16 21:00 Hold (Dulcolax Supp) 10 mg DAILY PRN RECTAL 09/16/16 21:00 (Lactulose Liq) 30 ml DAILY PRN PO 09/16/16 21:00 Hold (Zyloprim) 300 mg DAILY PO 09/17/16 09:00 Hold 09/19/16 09:58 (Norvasc) 5 mg BID PO 09/17/16 09:00 Hold 09/19/16 09:58 (Symbicort 160-4.5 Inh) 2 puff Q12HR INH 09/17/16 09:00 09/21/16 08:55 (Catapres) 0.2 mg Q12HR PO 09/17/16 09:00 Hold 09/19/16 09:58 (Neurontin) 600 mg TID PO 09/17/16 09:00 Hold 09/19/16 09:58 (Daliresp) 500 mcg DAILY PO 09/17/16 09:00 Hold 09/19/16 09:58 (Vitamin B1) 100 mg DAILY PO 09/17/16 09:00 Hold 09/18/16 08:19 (Ambien) 5 mg HS PRN PO 09/17/16 02:15 Hold 09/18/16 22:57 (Folate) 1 mg DAILY PO 09/17/16 09:00 Hold 09/18/16 08:18 (Creon 24-76-120) 2 cap TID PO 09/17/16 13:00 Hold 09/18/16 17:07 (NovoLOG SUPPLEMENTAL SCALE) 1 Q6HR SQ 09/20/16 00:00 09/21/16 18:00 (D50w (Syr) Inj) 50 ml UNSCH PRN IV 09/19/16 19:30 (Glucagon Inj) 1 mg UNSCH PRN OTHER 09/19/16 19:30 Morphine Sulfate 3 mg 3 mg Q1H PRN IV 09/19/16 20:00 09/20/16 17:15 Multivitamins 10 ml/Folic Acid 1 mg/Insulin Human Regular 20 units/ Famotidine 40 mg/ Amino Acids/ Electrolytes/ Dextrose 2,014.4 ml @ 83 mls/hr Q24H IV-CENTRAL 09/20/16 20:00 09/20/16 21:33 (Liposyn Iii 20% Inj) 250 ml @ 10 mls/hr Q24H IV-CENTRAL 09/20/16 20:00 09/20/16 22:09 (Ofirmev Inj) 650 mg Q6HR PRN IV 09/20/16 09:30 Labetalol HCl 10 mg 10 mg Q4H PRN IV PUSH 09/20/16 09:30 09/21/16 16:11 (NS 1000 ml Inj) 1,000 ml @ 40 mls/hr Q24H IV 09/20/16 10:00 09/21/16 08:55 (Protonix Inj) 40 mg Q24H IV PUSH 09/20/16 11:30 09/21/16 10:57 (Narcan Inj) 0.4 mg UNSCH PRN IV 09/20/16 14:45 (Morphine 1 Mg/ ml LAND ECONOMIST) 30 mg UNSCH IV 09/20/16 14:45 09/20/16 17:56 LAND ECONOMIST Dosage Infused (Pha) 1 1 Q8HR .XX 09/20/16 22:00 09/21/16 14:00 Fluconazole/ Sodium Chloride 100 ml @ 100 mls/hr Q24H IV 09/20/16 22:00 09/20/16 22:11 Ciprofloxacin/ Dextrose 200 ml @ 200 mls/hr Q12H IV 09/20/16 23:00 09/21/16 10:57 (Flagyl 500 Mg Inj) 100 ml @ 100 mls/hr Q6H IV 09/20/16 21:00 09/21/16 15:00 (Levemir Inj) 5 units Q12HR SQ 09/21/16 09:00 (Catapres-Tts 0.2 Mg Patch.7d) 1 patch Q7D T-DERMAL 09/20/16 22:15 09/21/16 01:17 Enoxaparin Sodium 40 mg 40 mg Q24H SQ 09/21/16 20:00 09/21/16 18:53 (Potassium Phosphate Inj/NS Inj) 155 ml @ 38.75 mls/ hr ONCE ONCE IV 09/21/16 20:00 09/21/16 23:59 Urinary Catheter: Yes Assessment to: Continue Hardin insert reason: Surgical/Invasive Proced Vascular Central Line Catheter: Yes Assessment to: Continue Line: Central Venous Catheter Side: Right Location: Internal, Jugular A/P Problem List: (1) Pancreatic abscess ICD Code: K85.90 Status: Acute (2) Hypercalcemia ICD Code: E83.52 Status: Acute (3) Leukocytosis ICD Code: D72.829 Status: Acute (4) Alcohol abuse ICD Code: F10.10 Status: Chronic (5) COPD (chronic obstructive pulmonary disease) ICD Code: J44.9 Status: Chronic (6) DM (diabetes mellitus) ICD Code: E11.9 Status: Acute Assessment and Plan 1. Pancreatic Abscess: c/o acute onset abdominal pain x4 days, recent "pancreas surgery" at by Dr. Mathias approx 2wks ago for pseudocyst. CT Abd/Pelvis w/ .1 x 7 cm abscess at site of previous pseudocyst on July 07, complex 7.3 x 3.8 presumed pseudocyst at aortic bifurcation, similar to July 07 images reviewed by me. Surgery and GI consulted. 3-D CT of the abdomen and possibly taking patient for surgery, in the meantime we will continue current supportive management 09/20 Patient is sp exploratory laparotomy, irrigation and drainage of pancreatic abscess. Management as per general surgery. Pain control with morphine LAND ECONOMIST. Continue IV Ciprofloxacin and IV Flagyl. Wound culture is growing budding yeasts will Add Fluconazole IV. 09/21 pain is better controlled, continue LAND ECONOMIST morphine pump. Continue strict nothing by mouth, continue management as per general surgery. PT consulted. 2. Hypercalcemia: Ca 10.7, IVF for hydration. Repeat Calcium normal.. 3. Leukocytosis: WBC trending up now 28K. In light of above findings, will continue w/ IV Abx. S/p Azactam/Flagyl in ER. 09/21 WBC trending up - will consult ID. Continue IV antibiotics. Patient currently on ciprofloxacin IV, Flagyl IV and fluconazole IV. will check CXR and urinalysis as well as blood cultures. 4. Alcohol Abuse: reports h/o alcohol abuse, however states he quit. Continue to monitor for possible withdrawal. Resume Folic Acid, Thiamine PO 5. COPD: Chronic Respiratory Failure. Stable. Resume home MDI/Neb. 09/21 Will order incentive spirometry. 6. DM: Sliding scale w/ Accu-Cheks. Hold Metformin. Blood sugars uncontrolled. Will start patient on insulin Levemir. 7. DVT Prophylaxis: SCD/Teds, start on chemoprophylaxis with heparin/lovenox SQ when ok with surgery. 8. HTN: BP elevated and uncontrolled. Continue Labetalol PRN. Agree with clonidine patch. 9. Hypokalemia: Likely due to poor nutritional status. Replace Iv and monitor BMP. 10. Hypophosphatemia: Likely poor nutritional status. Replace with ICU electrolyte protocol. Monitor phosphorus. Discharge Planning Continue to monitor in the intensive care unit. Onel Amin MD Sep 21, 2016 19:05
[2016-09-21] MEDS: RESP: ALBUTEROL 2.5 MG/3 ML NEB (PRN) NEB (21:16)
[2016-09-21] MEDS: FLUCONAZOLE 200 MG PREMIX BAG 100 ML IV SCH (22:08)
[2016-09-21] MEDS: FAT EMULSION 20% INJ 250 ML (@10 mls/hr) IV-CENTRAL SCH (22:12)
[2016-09-21] MEDS: INSULIN HUMAN REGULAR IV-CENTRAL SCH ×5 (22:12)
[2016-09-21] MEDS: MULTIVITAMIN IV-CENTRAL SCH ×5 (22:12)
[2016-09-21] MEDS: FOLIC ACID IV-CENTRAL SCH ×5 (22:12)
[2016-09-21] MEDS: [UNRECOGNIZED DRUG - OTHER] IV-CENTRAL SCH ×5 (22:12)
[2016-09-22] VITALS (13 sets, daily range): BP systolic 154–170; BP diastolic 86–96; PULSE 90–104; RESP 21–25; TEMP 97.7–99.1; O2SAT 94–100
[2016-09-22] MEDS: ONDANSETRON HCL 4 MG/2 ML VIAL IVP PRN (01:08)
[2016-09-22] MEDS: INSULIN ASPART SUPPLEMENTAL SCALE SQ SCH ×4 (01:15→18:00)
[2016-09-22] MEDS: metroNIDAZOLE 500 MG INJ 100 ML IV SCH ×4 (03:59→20:36)
[2016-09-22] MEDS: PCA - TOTAL MG MORPHINE DELIVERED PER SHIFT SCH ×3 (06:00→22:00)
[2016-09-22 06:03] LABS: AUTOMATED NEUTROPHIL # 21.3 TH/MM3 (1.8-7.7); BASOPHIL % 0.2 % (0.0-2.0); EOSINOPHIL % 0.1 % (0.0-4.0); HEMATOCRIT 30.7 % (39.0-51.0); LYMPH % 6.3 % (9.0-44.0); LYMPHOCYTE # 1.7 TH/MM3 (1.0-4.8); MEAN CELL VOLUME 74.4 FL (80.0-100.0); MEAN CORPUSCULAR HEMOGLOBIN 23.2 PG (27.0-34.0); MEAN CORPUSCULAR HGB CONC 31.2 % (32.0-36.0); NEUT % 81.4 % (16.0-70.0); PLATELET COUNT 334 TH/MM3 (150-450); RED BLOOD COUNT 4.13 MIL/MM3 (4.50-5.90); WHITE BLOOD COUNT 26.1 TH/MM3 (4.0-11.0)
[2016-09-22 06:16] LABS: HEMO FLAGS AUTO DIFF
[2016-09-22 06:32] LABS: ANION GAP 7 MEQ/L (5-15); AST (GOT) 13 U/L (15-37); BICARBONATE 27.9 MEQ/L (21.0-32.0); BLOOD UREA NITROGEN 12 MG/DL (7-18); CHLORIDE 110 MEQ/L (98-107); GLOMERULAR FILTRATION RATE 160 ML/MIN (>89); MAGNESIUM 1.7 MG/DL (1.5-2.5); POTASSIUM 3.4 MEQ/L (3.5-5.1); SODIUM (NA) 145 MEQ/L (136-145)
[2016-09-22 06:35] LABS: ALKALINE PHOSPHATASE 67 U/L (45-117); ALT (GPT) 12 U/L (12-78); TOTAL BILIRUBIN ADULT 0.2 MG/DL (0.2-1.0)
[2016-09-22 07:08] LABS: SCAN/DIFF AUTO DIFF CONFIRMED
[2016-09-22] MEDS: BUDESONIDE-FORMOTEROL 160/4.5 MCG INHALER INH SCH ×2 (09:00→20:35)
[2016-09-22] MEDS: SODIUM CHLOR 0.9% 1000 ML INJ 1,000 ML IV SCH (10:00)
[2016-09-22] MEDS: PANTOPRAZOLE SODIUM 40 MG VIAL IV PUSH SCH (10:04)
[2016-09-22] MEDS: SODIUM CHLORIDE 0.9% FLUSH 10 ML FLUSH IV FLUSH SCH ×2 (10:05→20:35)
[2016-09-22] MEDS: INSULIN DETEMIR 100 UNITS/ML VIAL SQ SCH ×2 (10:06→20:35)
[2016-09-22] MEDS: CIPROFLOXACIN 400 MG PREMIX 200 ML IV SCH ×2 (11:14→23:13)
--- NOTE | 2016-09-22 11:36 | HHI.PR ---
Subjective Subjective Notes Up to chair Pain better today Objective Vitals/I&O Vital Signs Date Time Temp Pulse Resp B/P Pulse Ox O2 Delivery O2 Flow Rate FiO2 09/22/16 09:45 100 Nasal Cannula 3.00 09/22/16 06:00 21 09/22/16 04:00 90 09/22/16 04:00 97.7 158/96 Labs Laboratory Tests Test 09/21/16 09/22/16 17:41 05:50 Potassium Level 3.6 3.4 Phosphorus Level 1.9 2.1 White Blood Count 26.1 Red Blood Count 4.13 Hemoglobin 9.6 Hematocrit 30.7 Mean Corpuscular Volume 74.4 Mean Corpuscular Hemoglobin 23.2 Mean Corpuscular Hemoglobin 31.2 Concent Red Cell Distribution Width 16.0 Platelet Count 334 Mean Platelet Volume 9.4 Neutrophils (%) (Auto) 81.4 Lymphocytes (%) (Auto) 6.3 Monocytes (%) (Auto) 12.0 Eosinophils (%) (Auto) 0.1 Basophils (%) (Auto) 0.2 Neutrophils # (Auto) 21.3 Lymphocytes # (Auto) 1.7 Monocytes # (Auto) 3.1 Eosinophils # (Auto) 0.0 Basophils # (Auto) 0.0 CBC Comment AUTO DIFF Differential Comment AUTO DIFF CONFIRMED Sodium Level 145 Chloride Level 110 Carbon Dioxide Level 27.9 Anion Gap 7 Blood Urea Nitrogen 12 Creatinine 0.61 Estimat Glomerular Filtration 160 Rate Random Glucose 155 Calcium Level 10.1 Magnesium Level 1.7 Total Bilirubin 0.2 Aspartate Amino Transf 13 (AST/SGOT) Alanine Aminotransferase 12 (ALT/SGPT) Alkaline Phosphatase 67 Total Protein 6.8 Albumin 2.6 Date/Time Procedure Status Source Growth 09/19/16 00:00 Gram Stain - Final Resulted Wound Other 09/19/16 00:00 Wound Culture - Preliminary Resulted Lou Albicans Gram Negative Daniel 09/19/16 00:00 Fungal Smear - Final Resulted Wound Other FEW BUDDING YEAST CELLS 09/19/16 00:00 Fungal Culture Resulted Wound Other Pending 09/19/16 00:00 Acid Fast Stain - Final Resulted Wound Other NO ACID FAST BACILLI SEEN 09/19/16 00:00 Mycobacterial Culture Resulted Wound Other Pending Cardiovascular: Regular Lungs: Clear Abdomen: Other (incision c/d/i; EDER x 2 with serous fluid) Extremities: No edema Narrative Exam Central line with PICC in place A/P Assessment and Plan 66 year old male with pancreatic abscess POD2 I&D pancreatis abscess with pancreatic necrosectomy -STRICT NPO -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 Bowman Attending Note - Dr. Bowman Patient growing GNR's and Lou from CXS Continue present management Abdominal wound clean and dry The exam, history, and the medical decision-making described in the above note were completed with the assistance of the mid-level provider. I reviewed and agree with the findings presented. I attest that I had a [id number] encounter with the patient on the same day, and personally performed and documented my assessment and findings in the medical record. Sabine Montague Sep 22, 2016 11:36 Devyn Bowman MD Sep 23, 2016 11:48
[2016-09-22] MEDS ORDERED: MAGNESIUM SULFATE 1 GM PREMIX 100 ML IV ONE (12:00)
[2016-09-22] MEDS: POTASSIUM CHLOR 20 MEQ PREMIX 100 ML IV SCH ×2 (14:25→16:26)
--- NOTE | 2016-09-22 17:05 | MB ---
cc: RAMSES CORDOVA MD DATE OF CONSULTATION: 09/22/2016. REASON FOR CONSULTATION: Pancreatic abscess and necrosis. Status post incision and drainage. Worsening leukocytosis. REQUESTING PHYSICIAN: Dr. Delcid. HISTORY OF PRESENT ILLNESS: This is a 66-year-old black male who recently underwent pancreatic necrosectomy on August 26, 2016. The patient presented with abdominal pain and pancreatitis and was noted to have a large pancreatic pseudocyst. The patient's procedure was performed at [facility]. He subsequently presented to [facility] on September 16 with abdominal pain and also nausea and vomiting. This would occur with any food intake. The patient had a white blood cell count of 11.3 and he was afebrile. He was evaluated and noted to have possible pancreatic abscess. He was evaluated by general surgery and taken to surgery and he underwent irrigation and debridement of the pancreatic abscess which was a large abscess and also pancreatic necrosectomy. Two drainage catheters were left in the abdominal cavity. A culture was taken from the fluid and it has growth of gram-negative rods and Lou albicans. The patient's white blood cell count climbed from 11.3 on 09/16 and today it is 26.1. He has no fever. The chest x-ray shows he has no acute infiltrates and is normal. The patient currently states that he has pain in the abdomen but otherwise he feels well except for feeling tired. He states that he feels cold but he has no chills. PAST MEDICAL HISTORY: 1. Hepatitis C. 2. COPD. 3. Diabetes mellitus. 4. Alcohol abuse. 5. Congestive heart failure. 6. COPD. 7. History of appendectomy. ALLERGIES: PENICILLIN. MEDICATIONS: 1. Ciprofloxacin. 2. Fluconazole. 3. Metronidazole. 4. Insulin. 5. Lovenox. 6. Morphine sulfate. 7. Protonix. SOCIAL HISTORY: The patient smoked two packs of cigarettes a day up until June of 2016. Alcohol use up until April of 2016. No illicit drugs. FAMILY HISTORY: Noncontributory. REVIEW OF SYSTEMS: CONSTITUTIONAL: No fever or chills. HEAD, EYES, EARS, NOSE, THROAT: No visual blurring or difficulty with vision. No nasal drainage. No soreness of the throat or difficulty swallowing. NECK: No neck swelling or pain. CARDIOVASCULAR: No palpitations or chest pain. RESPIRATORY: No cough or shortness of breath. GASTROINTESTINAL: Significant for nausea and vomiting and abdominal pain. No diarrhea. GENITOURINARY: No urgency, frequency or dysuria. HEMATOPOIETIC: No easy bruising or bleeding. MUSCULOSKELETAL: No muscle aches or joint pains. INTEGUMENTARY: No skin rash or itching. NEUROLOGIC: No problems with coordination. PSYCHIATRIC: No problems with mood changes or depression. PHYSICAL EXAMINATION: GENERAL: This is a slender well-developed male who is in no acute distress. He is awake alert and oriented. VITAL SIGNS: Temperature of 97.7, blood pressure is 192/92, heart rate 103, respirations 20. HEAD, EYES, EARS, NOSE, THROAT: Head is atraumatic. Extraocular movements grossly intact. Pupils reactive to light. No icterus. The sclerae are pale. Oropharynx with no visible lesions. Moist mucosa. No thrush. NECK: The neck is supple without adenopathy. LUNGS: Diffuse bilateral rhonchi. HEART: Irregular rate and rhythm. No murmurs, rubs or gallops. ABDOMEN: Bowel sounds diminished. Tenderness on palpation. Mild distention. The drainage catheter on the left has mario-colored drainage and the drainage catheter on the right from the abdominal wound bed has serous drainage. RECTAL: Not performed. EXTREMITIES: No clubbing or cyanosis or edema. SKIN: No rash. NEUROLOGIC: Alert and oriented. No gross focal findings. PSYCHIATRIC: Patient calm and cooperative. LABORATORY DATA WBC 26.1, 81% neutrophils, 6% lymphocytes, platelets 334,000, hemoglobin 9.6. Creatinine 0.61, BUN 12, sodium 145. IMPRESSION: 1. Pancreatic abscess. Status post drainage. The patient also status post pancreatic necrosectomy. 2. Leukocytosis. RECOMMENDATIONS: 1. Continue Flagyl. 2. Continue fluconazole. 3. Continue ciprofloxacin. 4. Monitor the wound culture for identity of the gram-negative bacteria. 5. Monitor white blood cell count. 6. Monitor clinical response. Thank you this consultation. I will monitor the patient's progress with you and will adjust antibiotics if necessary and follow his clinical status. Ramses Cordova MD FD/JCC /11:57 AM /4:33 PM
[2016-09-22] MEDS: FAT EMULSION 20% INJ 250 ML (@10 mls/hr) IV-CENTRAL SCH (20:34)
[2016-09-22] MEDS: ENOXAPARIN SODIUM 40 MG/0.4 ML SYRINGE SQ SCH (20:34)
[2016-09-22] MEDS: MULTIVITAMIN IV-CENTRAL SCH ×5 (20:39)
[2016-09-22] MEDS: INSULIN HUMAN REGULAR IV-CENTRAL SCH ×5 (20:39)
[2016-09-22] MEDS: FOLIC ACID IV-CENTRAL SCH ×5 (20:39)
[2016-09-22] MEDS: [UNRECOGNIZED DRUG - OTHER] IV-CENTRAL SCH ×5 (20:39)
[2016-09-22] MEDS: LABETALOL HCL 100 MG/20 ML VIAL IV PUSH PRN (21:09)
[2016-09-22] MEDS: FLUCONAZOLE 200 MG PREMIX BAG 100 ML IV SCH (21:10)
--- NOTE | 2016-09-22 21:22 | HHI.PR ---
Subjective Remarks Case discussed w RN Patient states pain is lightly better still npo BP seems still to be elevated into the 150 to 160's systolic patient denies nausea afebrile Objective Vitals Vital Signs Date Time Temp Pulse Resp B/P Pulse Ox O2 Delivery O2 Flow Rate FiO2 09/22/16 20:25 100 Nasal Cannula 3.00 09/22/16 19:00 97 Nasal Cannula 3.00 09/22/16 18:00 98 09/22/16 16:00 98.8 96 23 154/90 100 09/22/16 16:00 93 09/22/16 14:00 98 09/22/16 14:00 22 09/22/16 12:00 93 09/22/16 12:00 98.6 93 23 158/89 100 09/22/16 10:00 90 09/22/16 09:45 100 Nasal Cannula 3.00 09/22/16 08:00 98.2 93 23 158/89 100 09/22/16 08:00 92 09/22/16 07:00 99 Nasal Cannula 3.00 09/22/16 06:00 21 09/22/16 04:00 90 09/22/16 04:00 97.7 90 25 158/96 100 09/22/16 02:00 94 09/22/16 00:00 98.3 100 24 170/91 100 09/22/16 00:00 100 09/21/16 22:00 109 09/21/16 22:00 24 I/O 09/21/16 09/21/16 09/21/16 09/22/16 09/22/16 09/22/16 07:00 15:00 23:00 07:00 15:00 23:00 Intake Total 1336 ml 1236 ml 1200 ml 1122 ml Output Total 1950 ml 1860 ml 605 ml 305 ml 1065 ml Balance -614 ml -624 ml 595 ml -305 ml 57 ml IV Total 1336 ml 575 ml 1200 ml 1122 ml TPN/PPN 590 ml Lipid 71 ml Output Urine Total 1650 ml 1550 ml 400 ml 300 ml 950 ml Stool Total 0 ml 0 ml Gastric Drainage Total 290 ml 290 ml 200 ml 100 ml Drainage Total 10 ml 20 ml 5 ml 5 ml 15 ml # Bowel Movements 0 0 Result Diagram: 09/22/16 0550 09/22/16 0550 Imaging Last Impressions Chest X-Ray 09/19/16 0000 Signed Impressions: Service Date/Time: Monday, September 19, 2016 19:32 - CONCLUSION: Right IJ central venous catheter and nasogastric tube as above. No pneumothorax or other acute complication demonstrated. Mason Dahl MD Abdomen/Pelvis CT 09/17/16 0000 Signed Impressions: Service Date/Time: Saturday, September 17, 2016 15:26 - CONCLUSION: 1. No evidence of vascular compromise. 2. Peripancreatic and periduodenal fluid collections are unchanged. Mason Dahl MD Objective Remarks GENERAL: This is a very thin, malnourished, in no apparent distress. SKIN: No rashes, warm and dry HEAD: Atraumatic. Normocephalic. EYES: Pupils equal round and reactive. Extraocular motions intact. No scleral icterus. ENT: Nose without bleeding, or drainage, Airway patent. NECK: Trachea midline. Supple CARDIOVASCULAR: Regular rate and rhythm without murmurs, gallops, or rubs. RESPIRATORY: Fair air entry bilaterally. No wheezes, rales, or rhonchi. GASTROINTESTINAL: Abdominal binder observed, Abdomen soft but diffusely tender, mildly distended. Absent bowel sounds. EDER drain with serosanguineous fluid. MUSCULOSKELETAL: Extremities without clubbing, cyanosis, or edema. Pedal pulses appreciated NEUROLOGICAL: Awake and alert. Moves all extremity. Normal speech.no focal neurological deficit Procedures sp Exploratory laparotomy, irrigation and debridement of peripancreatic abscess and necrosectomy Medications and IVs Current Medications Medications (Trade) Dose Ordered Sig/Tamera Route Start Time Stop Time Status Last Admin (NS Flush) 2 ml UNSCH PRN IV FLUSH 09/16/16 21:00 (NS Flush) 2 ml BID IV FLUSH 09/16/16 21:00 09/22/16 20:35 (Zofran Inj) 4 mg Q6H PRN IVP 09/16/16 21:00 09/22/16 01:08 (Tylenol) 650 mg Q6H PRN PO 09/16/16 21:00 Hold (Roxicodone) 5 mg Q4H PRN PO 09/16/16 21:00 Hold 09/16/16 22:52 (Fátima-Colace) 1 tab BID PO 09/16/16 21:00 Hold 09/18/16 20:08 (Milk Of Magnesia Liq) 30 ml Q12H PRN PO 09/16/16 21:00 Hold (Senokot) 17.2 mg Q12H PRN PO 09/16/16 21:00 Hold (Dulcolax Supp) 10 mg DAILY PRN RECTAL 09/16/16 21:00 (Lactulose Liq) 30 ml DAILY PRN PO 09/16/16 21:00 Hold (Zyloprim) 300 mg DAILY PO 09/17/16 09:00 Hold 09/19/16 09:58 (Norvasc) 5 mg BID PO 09/17/16 09:00 Hold 09/19/16 09:58 (Symbicort 160-4.5 Inh) 2 puff Q12HR INH 09/17/16 09:00 09/22/16 20:35 (Catapres) 0.2 mg Q12HR PO 09/17/16 09:00 Hold 09/19/16 09:58 (Neurontin) 600 mg TID PO 09/17/16 09:00 Hold 09/19/16 09:58 (Daliresp) 500 mcg DAILY PO 09/17/16 09:00 Hold 09/19/16 09:58 (Vitamin B1) 100 mg DAILY PO 09/17/16 09:00 Hold 09/18/16 08:19 (Ambien) 5 mg HS PRN PO 09/17/16 02:15 Hold 09/18/16 22:57 (Folate) 1 mg DAILY PO 09/17/16 09:00 Hold 09/18/16 08:18 (Creon 24-76-120) 2 cap TID PO 09/17/16 13:00 Hold 09/18/16 17:07 (NovoLOG SUPPLEMENTAL SCALE) 1 Q6HR SQ 09/20/16 00:00 09/22/16 07:08 (D50w (Syr) Inj) 50 ml UNSCH PRN IV 09/19/16 19:30 (Glucagon Inj) 1 mg UNSCH PRN OTHER 09/19/16 19:30 Morphine Sulfate 3 mg 3 mg Q1H PRN IV 09/19/16 20:00 Hold 09/20/16 17:15 Multivitamins 10 ml/Folic Acid 1 mg/Insulin Human Regular 20 units/ Famotidine 40 mg/ Amino Acids/ Electrolytes/ Dextrose 2,014.4 ml @ 83 mls/hr Q24H IV-CENTRAL 09/20/16 20:00 09/22/16 20:39 (Liposyn Iii 20% Inj) 250 ml @ 10 mls/hr Q24H IV-CENTRAL 09/20/16 20:00 09/22/16 20:34 (Ofirmev Inj) 650 mg Q6HR PRN IV 09/20/16 09:30 Labetalol HCl 10 mg 10 mg Q4H PRN IV PUSH 09/20/16 09:30 09/22/16 21:09 (NS 1000 ml Inj) 1,000 ml @ 40 mls/hr Q24H IV 09/20/16 10:00 09/21/16 08:55 (Protonix Inj) 40 mg Q24H IV PUSH 09/20/16 11:30 09/22/16 10:04 (Narcan Inj) 0.4 mg UNSCH PRN IV 09/20/16 14:45 (Morphine 1 Mg/ ml MEDICAL LABORATORY TECHNICAL OFFICER) 30 mg UNSCH IV 09/20/16 14:45 09/20/16 17:56 MEDICAL LABORATORY TECHNICAL OFFICER Dosage Infused (Pha) 1 1 Q8HR .XX 09/20/16 22:00 09/22/16 22:00 Fluconazole/ Sodium Chloride 100 ml @ 100 mls/hr Q24H IV 09/20/16 22:00 09/22/16 21:10 Ciprofloxacin/ Dextrose 200 ml @ 200 mls/hr Q12H IV 09/20/16 23:00 09/22/16 23:13 (Flagyl 500 Mg Inj) 100 ml @ 100 mls/hr Q6H IV 09/20/16 21:00 09/22/16 20:36 (Levemir Inj) 5 units Q12HR SQ 09/21/16 09:00 09/22/16 20:35 (Catapres-Tts 0.2 Mg Patch.7d) 1 patch Q7D T-DERMAL 09/20/16 22:15 09/21/16 01:17 (Lovenox Inj) 40 mg Q24H SQ 09/21/16 20:00 09/22/16 20:34 (Vasotec Inj) 1.25 mg Q6H PRN IV PUSH 09/22/16 21:30 Urinary Catheter: No Vascular Central Line Catheter: Yes Line: Central Venous Catheter Side: Right Location: Internal, Jugular A/P Problem List: (1) Pancreatic abscess ICD Code: K85.90 Status: Acute (2) Hypercalcemia ICD Code: E83.52 Status: Acute (3) Leukocytosis ICD Code: D72.829 Status: Acute (4) Alcohol abuse ICD Code: F10.10 Status: Chronic (5) COPD (chronic obstructive pulmonary disease) ICD Code: J44.9 Status: Chronic (6) DM (diabetes mellitus) ICD Code: E11.9 Status: Acute Assessment and Plan 1. Pancreatic Abscess: c/o acute onset abdominal pain x4 days, recent "pancreas surgery" at by Dr. Mathias approx 2wks ago for pseudocyst. CT Abd/Pelvis w/ .1 x 7 cm abscess at site of previous pseudocyst on July 07, complex 7.3 x 3.8 presumed pseudocyst at aortic bifurcation, similar to July 07 images reviewed by me. Surgery and GI consulted. 3-D CT of the abdomen and possibly taking patient for surgery, in the meantime we will continue current supportive management 09/20 Patient is sp exploratory laparotomy, irrigation and drainage of pancreatic abscess. Management as per general surgery. 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 Continue IV Ciprofloxacin and IV Flagyl. Wound culture is growing budding yeasts will Add Fluconazole IV. 09/21 pain is better controlled, continue MEDICAL LABORATORY TECHNICAL OFFICER morphine pump. Continue strict nothing by mouth, continue management as per general surgery. PT consulted. 2. Hypercalcemia: Ca 10.7, IVF for hydration. Repeat Calcium normal.. 3. Leukocytosis: WBC trending up now 28K. In light of above findings, will continue w/ IV Abx. S/p Azactam/Flagyl in ER. 09/21 WBC trending up - will consult ID. Continue IV antibiotics. Patient currently on ciprofloxacin IV, Flagyl IV and fluconazole IV. will check CXR and urinalysis as well as blood cultures. 09/22 aprreciate Id consultation. continue antibiotics as per ID. Continue IV Ciprofloxacin, IV Flagyl and IV fluconazole. Wounmd culture is growing gram negative landon and trish albicans. WBC is starting to trend down down from 28k to 26 k. 4. Alcohol Abuse: reports h/o alcohol abuse, however states he quit. Continue to monitor for possible withdrawal. Resume Folic Acid, Thiamine PO 5. COPD: Chronic Respiratory Failure. Stable. Resume home MDI/Neb. 09/21 Will order incentive spirometry. 09/22 continue Incentive spirometry, supplemental O2 to keep o2 sat more than 92% . 6. DM: Sliding scale w/ Accu-Cheks. Hold Metformin. Blood sugars uncontrolled. Will start patient on insulin Levemir. 7. DVT Prophylaxis: SCD/Teds, start on chemoprophylaxis with heparin/lovenox SQ when ok with surgery. 8. HTN: BP elevated and uncontrolled. Continue Labetalol PRN. Agree with clonidine patch. 09/22 Patient is still hypertensive. Dose increased to 0.2 mg. Continue ot monitor BP. 9. Hypokalemia: Likely due to poor nutritional status. Replace Iv and monitor BMP. 10. Hypophosphatemia: Likely poor nutritional status. Replace with ICU electrolyte protocol. Monitor phosphorus. Discharge Planning ok to transfer to floor. Onel Amin MD Sep 22, 2016 21:22
[2016-09-22] MEDS ORDERED: ENALAPRILAT 1.25 MG/ML VIAL IV PUSH PRN (21:30)
[2016-09-22] MEDS: RESP: ALBUTEROL 2.5 MG/3 ML NEB (PRN) NEB (22:33)
[2016-09-23] VITALS (7 sets, daily range): BP systolic 142–173; BP diastolic 79–96; PULSE 103–111; RESP 18–22; TEMP 98.7–100.5; O2SAT 94–98
[2016-09-23] MEDS: ONDANSETRON HCL 4 MG/2 ML VIAL IVP PRN (00:51)
[2016-09-23] MEDS: metroNIDAZOLE 500 MG INJ 100 ML IV SCH ×4 (02:37→20:49)
[2016-09-23 04:00] LABS: BASOPHIL # 0.1 TH/MM3 (0-0.2); BASOPHIL % 0.2 % (0.0-2.0); EOSINOPHIL % 0.1 % (0.0-4.0); HEMATOCRIT 30.3 % (39.0-51.0); LYMPH % 5.8 % (9.0-44.0); LYMPHOCYTE # 1.6 TH/MM3 (1.0-4.8); MEAN CELL VOLUME 74.4 FL (80.0-100.0); MEAN CORPUSCULAR HEMOGLOBIN 23.1 PG (27.0-34.0); MEAN CORPUSCULAR HGB CONC 31.1 % (32.0-36.0); MONO % 13.3 % (0.0-8.0); NEUT % 80.6 % (16.0-70.0); PLATELET COUNT 306 TH/MM3 (150-450); RED BLOOD COUNT 4.08 MIL/MM3 (4.50-5.90); RED CELL DISTRIBUTION WIDTH 16.1 % (11.6-17.2); WHITE BLOOD COUNT 28.6 TH/MM3 (4.0-11.0)
[2016-09-23 04:02] LABS: HEMO FLAGS AUTO DIFF
[2016-09-23 04:13] LABS: ALT (GPT) 10 U/L (12-78); ANION GAP 6 MEQ/L (5-15); AST (GOT) 10 U/L (15-37); BICARBONATE 29.1 MEQ/L (21.0-32.0); BLOOD UREA NITROGEN 14 MG/DL (7-18); CHLORIDE 110 MEQ/L (98-107); GLOMERULAR FILTRATION RATE 154 ML/MIN (>89); MAGNESIUM 1.8 MG/DL (1.5-2.5); POTASSIUM 3.5 MEQ/L (3.5-5.1); SODIUM (NA) 145 MEQ/L (136-145)
[2016-09-23 04:15] LABS: ALKALINE PHOSPHATASE 68 U/L (45-117); TOTAL BILIRUBIN ADULT 0.4 MG/DL (0.2-1.0)
[2016-09-23 04:47] LABS: NEUTROPHIL # MANUAL DIFF 24.3 TH/MM3 (1.8-7.7); POLYS (SEG NEUTROPHILS) 85 % (16-70); WBC DIFF SAMPLE 100
[2016-09-23 04:48] LABS: KERATOCYTES 1+ (NORMAL); OVALOCYTES 1+ (NORMAL); PLATELET ESTIMATE SMEAR NORMAL (NORMAL); PLATELET MORPHOLOGY NORMAL (NORMAL); SCAN/DIFF FINAL DIFF MANUAL; TARGET CELLS 1+ (NORMAL)
[2016-09-23] MEDS: INSULIN ASPART SUPPLEMENTAL SCALE SQ SCH ×4 (06:00→17:20)
[2016-09-23] MEDS: PCA - TOTAL MG MORPHINE DELIVERED PER SHIFT SCH ×3 (06:00→22:00)
[2016-09-23] MEDS: RESP: ALBUTEROL 2.5 MG/3 ML NEB (PRN) NEB ×2 (08:22→19:09)
[2016-09-23] MEDS: SODIUM CHLORIDE 0.9% FLUSH 10 ML FLUSH IV FLUSH SCH ×2 (08:54→21:00)
[2016-09-23] MEDS: SODIUM CHLOR 0.9% 1000 ML INJ 1,000 ML IV SCH (08:56)
[2016-09-23] MEDS: INSULIN DETEMIR 100 UNITS/ML VIAL SQ SCH ×2 (08:59→20:55)
[2016-09-23] MEDS: BUDESONIDE-FORMOTEROL 160/4.5 MCG INHALER INH SCH ×2 (09:01→21:00)
--- NOTE | 2016-09-23 10:44 | HHI.PR ---
Subjective Remarks Follow-up pancreatic abscess. States his abdominal pain is controlled with TIE MAN. Had low-grade temperature overnight states he has usual dyspnea and productive cough of yellow phlegm from COPD. He has been out of bed. 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 pharmacy to adjust potassium phosphate in TPN. Objective Vitals Vital Signs Date Time Temp Pulse Resp B/P Pulse Ox O2 Delivery O2 Flow Rate FiO2 09/23/16 08:25 98 2.00 09/23/16 08:00 100.5 103 21 159/89 95 09/23/16 06:00 22 09/23/16 04:25 99.0 103 22 156/96 95 09/22/16 22:41 99.1 90 21 161/86 94 09/22/16 22:00 Nasal Cannula 3.00 09/22/16 22:00 22 09/22/16 20:25 100 Nasal Cannula 3.00 09/22/16 20:00 98.8 104 24 155/87 97 09/22/16 20:00 104 09/22/16 19:00 97 Nasal Cannula 3.00 09/22/16 18:00 98 09/22/16 16:00 98.8 96 23 154/90 100 09/22/16 16:00 93 09/22/16 14:00 98 09/22/16 14:00 22 09/22/16 12:00 93 09/22/16 12:00 98.6 93 23 158/89 100 I/O 09/22/16 09/22/16 09/22/16 09/23/16 09/23/16 09/23/16 07:00 15:00 23:00 07:00 15:00 23:00 Intake Total 1122 ml 695 ml 754 ml Output Total 305 ml 1065 ml 533 ml 825 ml Balance -305 ml 57 ml 162 ml -71 ml IV Total 1122 ml 348 ml TPN/PPN 620 ml 362 ml Lipid 75 ml 44 ml Output Urine Total 300 ml 950 ml 425 ml 800 ml Stool Total 0 ml Gastric Drainage Total 100 ml 100 ml 25 ml Drainage Total 5 ml 15 ml 8 ml 0 ml # Voids 2 # Bowel Movements 0 Result Diagram: 09/23/16 0345 09/23/16 0345 Imaging Last Impressions Chest X-Ray 09/19/16 0000 Signed Impressions: Service Date/Time: Monday, September 19, 2016 19:32 - CONCLUSION: Right IJ central venous catheter and nasogastric tube as above. No pneumothorax or other acute complication demonstrated. Mason Dahl MD Abdomen/Pelvis CT 09/17/16 0000 Signed Impressions: Service Date/Time: Saturday, September 17, 2016 15:26 - CONCLUSION: 1. No evidence of vascular compromise. 2. Peripancreatic and periduodenal fluid collections are unchanged. Mason Dahl MD Objective Remarks GENERAL: This is a very thin, malnourished, in no apparent distress. NGT in place SKIN: No rashes, warm and dry HEAD: Atraumatic. Normocephalic. EYES: Pupils equal round and reactive. Extraocular motions intact. No scleral icterus. ENT: Nose without bleeding, or drainage, Airway patent. NECK: Trachea midline. Supple CARDIOVASCULAR: Regular rate and rhythm without murmurs, gallops, or rubs. RESPIRATORY: Fair air entry bilaterally. No wheezes, rales, or rhonchi. GASTROINTESTINAL: Abdominal binder observed, Abdomen soft but diffusely tender, mildly distended. + bowel sounds. EDER drain with serosanguineous fluid. MUSCULOSKELETAL: Extremities without clubbing, cyanosis, or edema. Pedal pulses appreciated NEUROLOGICAL: Awake and alert. Moves all extremity. Normal speech.no focal neurological deficit Procedures Right IJ central line sp Exploratory laparotomy, irrigation and debridement of peripancreatic abscess and necrosectomy Line: Central Venous Catheter Side: Right Location: Internal, Jugular A/P Problem List: (1) Pancreatic abscess ICD Code: K85.90 Status: Acute (2) Hypercalcemia ICD Code: E83.52 Status: Acute (3) Leukocytosis ICD Code: D72.829 Status: Acute (4) Alcohol abuse ICD Code: F10.10 Status: Chronic (5) COPD (chronic obstructive pulmonary disease) ICD Code: J44.9 Status: Chronic (6) DM (diabetes mellitus) ICD Code: E11.9 Status: Chronic Assessment and Plan 1. Pancreatic Abscess: c/o acute onset abdominal pain x4 days, recent "pancreas surgery" at by Dr. Mathias approx 2wks ago for pseudocyst. 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 Patient is sp exploratory laparotomy, irrigation and drainage of pancreatic abscess. Management as per general surgery. Pain control with morphine TIE MAN. Continue IV Ciprofloxacin and IV Flagyl. Wound culture is growing budding yeasts continue Fluconazole IV. Continue strict nothing by mouth 2. Hypercalcemia: IVF for hydration. Repeat Calcium in the morning consider decreasing cause of TPN 3. Leukocytosis: WBC trending up again in light of above findings, will continue w/ IV Abx. S/p Azactam/Flagyl in ER. Patient with low-grade fever, Repeat chest x-ray, out of bed and incentive spirometry 4. Alcohol Abuse: reports h/o alcohol abuse, however states he quit. Continue to monitor for possible withdrawal. Resume Folic Acid, Thiamine 5. COPD: Chronic Respiratory Failure. Stable. Resume home MDI/Neb. continue supplemental O2 to keep o2 sat more than 92%. 6. DM: Sliding scale w/ Accu-Cheks. Hold Metformin. Blood sugars uncontrolled. Will continue insulin Levemir and regular in the TPN. 7. HTN: BP elevated and uncontrolled. Continue Labetalol PRN. Agree with clonidine patch. 8. Hypophosphatemia: Likely poor nutritional status. Replace. Monitor phosphorus. 9. Hypokalemia: Likely due to poor nutritional status. Replace Iv and monitor BMP. 10. DVT Prophylaxis: SCD/Teds and Lovenox. Discharge Planning Not ready for discharge Ac Liu MD Sep 23, 2016 10:44
--- NOTE | 2016-09-23 11:46 | RADRPT ---
EXAM DATE/TIME: 09/23/2016 11:09 [facility] COMPARISON: CHEST SINGLE AP, September 19, 2016, 19:32. INDICATIONS : Evaluate for pneumonia. MEDICAL HISTORY : Hypertension. Chronic obstructive pulmonary disease. SURGICAL HISTORY : None. ENCOUNTER: Initial ACUITY: 1 day PAIN SCORE: 3/10 LOCATION: Bilateral chest FINDINGS: Central line is in good position. Right lung is clear. Increasing consolidative changes are seen on the left with surgical drain in the left hemidiaphragm. CONCLUSION: Increasing consolidative changes left base. Kermit Rollins MD FACR on September 23, 2016 at 11:42 Board Certified Radiologist. This report was verified electronically.
[2016-09-23] MEDS: PANTOPRAZOLE SODIUM 40 MG VIAL IV PUSH SCH (11:48)
[2016-09-23] MEDS: CIPROFLOXACIN 400 MG PREMIX 200 ML IV SCH (11:48)
--- NOTE | 2016-09-23 12:05 | HHI.IDPN ---
Note Infectious Disease Note Patient says he feels okay. feels weak. Low grade fever. Was out of bed this am. Continues to have leukocytosis. One drainage catheter removed. Presented to [facility] on September 16 with abdominal pain and also nausea and vomiting. Post irrigation and debridement of pancreatic abscess which was a large abscess and also pancreatic necrosectomy. PAST MEDICAL HISTORY: 1. Hepatitis C. 2. COPD. 3. Diabetes mellitus. 4. Alcohol abuse. 5. Congestive heart failure. 6. COPD. 7. History of appendectomy. 8. Patient underwent pancreatic necrosectomy on August 26, 2016. ALLERGIES: PENICILLIN. MEDICATIONS: 1. Ciprofloxacin. 2. Fluconazole. 3. Metronidazole. SOCIAL HISTORY: The patient smoked two packs of cigarettes a day up until June of 2016. Alcohol use up until April of 2016. No illicit drugs. OBJECTIVE: Vital Signs Date Time Temp Pulse Resp B/P Pulse Ox O2 Delivery O2 Flow Rate FiO2 09/23/16 08:25 98 2.00 09/23/16 08:00 100.5 103 21 159/89 95 09/23/16 06:00 22 09/23/16 04:25 99.0 103 22 156/96 95 09/22/16 22:41 99.1 90 21 161/86 94 09/22/16 22:00 Nasal Cannula 3.00 09/22/16 22:00 22 09/22/16 20:25 100 Nasal Cannula 3.00 09/22/16 20:00 98.8 104 24 155/87 97 09/22/16 20:00 104 09/22/16 19:00 97 Nasal Cannula 3.00 09/22/16 18:00 98 09/22/16 16:00 98.8 96 23 154/90 100 09/22/16 16:00 93 09/22/16 14:00 98 09/22/16 14:00 22 09/22/16 12:00 93 09/22/16 12:00 98.6 93 23 158/89 100 09/22/16 09/22/16 09/23/16 15:00 23:00 07:00 Intake Total 1122 ml 695 ml 754 ml Output Total 1065 ml 533 ml 825 ml Balance 57 ml 162 ml -71 ml IV Total 1122 ml 348 ml TPN/PPN 620 ml 362 ml Lipid 75 ml 44 ml Output Urine Total 950 ml 425 ml 800 ml Stool Total 0 ml Gastric Drainage Total 100 ml 100 ml 25 ml Drainage Total 15 ml 8 ml 0 ml # Voids 2 # Bowel Movements 0 Laboratory Tests Test 09/22/16 09/23/16 05:50 03:45 White Blood Count 26.1 TH/MM3 28.6 TH/MM3 Red Blood Count 4.13 MIL/MM3 4.08 MIL/MM3 Hemoglobin 9.6 GM/DL 9.4 GM/DL Hematocrit 30.7 % 30.3 % Mean Corpuscular Volume 74.4 FL 74.4 FL Mean Corpuscular Hemoglobin 23.2 PG 23.1 PG Mean Corpuscular Hemoglobin 31.2 % 31.1 % Concent Red Cell Distribution Width 16.0 % 16.1 % Platelet Count 334 TH/MM3 306 TH/MM3 Mean Platelet Volume 9.4 FL 9.3 FL Neutrophils (%) (Auto) 81.4 % 80.6 % Lymphocytes (%) (Auto) 6.3 % 5.8 % Monocytes (%) (Auto) 12.0 % 13.3 % Eosinophils (%) (Auto) 0.1 % 0.1 % Basophils (%) (Auto) 0.2 % 0.2 % Neutrophils # (Auto) 21.3 TH/MM3 23.0 TH/MM3 Lymphocytes # (Auto) 1.7 TH/MM3 1.6 TH/MM3 Monocytes # (Auto) 3.1 TH/MM3 3.8 TH/MM3 Eosinophils # (Auto) 0.0 TH/MM3 0.0 TH/MM3 Basophils # (Auto) 0.0 TH/MM3 0.1 TH/MM3 CBC Comment AUTO DIFF AUTO DIFF Differential Comment AUTO DIFF FINAL DIFF CONFIRMED MANUAL Differential Total Cells 100 Counted Neutrophils % (Manual) 85 % Lymphocytes % 4 % Monocytes % 11 % Neutrophils # (Manual) 24.3 TH/MM3 Platelet Estimate NORMAL Platelet Morphology Comment NORMAL Target Cells 1+ Ovalocytes 1+ Keratocytes 1+ Laboratory Tests Test 09/21/16 09/22/16 09/23/16 17:41 05:50 03:45 Potassium Level 3.6 MEQ/L 3.4 MEQ/L 3.5 MEQ/L Phosphorus Level 1.9 MG/DL 2.1 MG/DL 1.7 MG/DL Sodium Level 145 MEQ/L 145 MEQ/L Chloride Level 110 MEQ/L 110 MEQ/L Carbon Dioxide Level 27.9 MEQ/L 29.1 MEQ/L Anion Gap 7 MEQ/L 6 MEQ/L Blood Urea Nitrogen 12 MG/DL 14 MG/DL Creatinine 0.61 MG/DL 0.63 MG/DL Estimat Glomerular Filtration 160 ML/MIN 154 ML/MIN Rate Random Glucose 155 MG/DL 149 MG/DL Calcium Level 10.1 MG/DL 10.3 MG/DL Magnesium Level 1.7 MG/DL 1.8 MG/DL Total Bilirubin 0.2 MG/DL 0.4 MG/DL Aspartate Amino Transf 13 U/L 10 U/L (AST/SGOT) Alanine Aminotransferase 12 U/L 10 U/L (ALT/SGPT) Alkaline Phosphatase 67 U/L 68 U/L Total Protein 6.8 GM/DL 6.6 GM/DL Albumin 2.6 GM/DL 2.5 GM/DL PHYSICAL EXAMINATION: GENERAL: No acute distress. He is awake alert and oriented. HEAD, EYES, EARS, NOSE, THROAT: Pupils reactive to light. No icterus. The sclerae are pale. Oropharynx with no visible lesions. Moist mucosa. No thrush. NECK: The neck is supple without adenopathy. LUNGS: Diffuse bilateral rhonchi. HEART: Irregular rate and rhythm. No murmurs, rubs or gallops. ABDOMEN: Bowel sounds diminished. Tenderness on palpation. Mild distention. Drainage catheter has serous drainage. EXTREMITIES: No clubbing or cyanosis or edema. SKIN: No rash. NEUROLOGIC: Alert and oriented. No gross focal findings. PSYCHIATRIC: Patient calm and cooperative. IMPRESSION: 1. Pancreatic abscess. Status post drainage and pancreatic necrosectomy. Wound culture has E. coli R to Levaquin, and Lou. 2. Leukocytosis. Probably form ineffective treatment of the E. coli. 3. Penicillin allergy. RECOMMENDATIONS: 1. Continue Flagyl. 2. Continue fluconazole. 3. Stop ciprofloxacin. 4. Begin Ertapenem - E coli resistant and allergy to Penicillin. 5. Monitor white blood cell count. 6. Monitor clinical response. Maxime Hernandez MD Sep 23, 2016 12:05
[2016-09-23] MEDS ORDERED: MISCELLANEOUS PHARMACY INFORMATION XX PRN ×2 (12:15)
[2016-09-23] MEDS ORDERED: ASP: Documented allergy to Penicillins or Cephalosporins PRN (12:15)
[2016-09-23] MEDS ORDERED: ASP: Necrotizing pancreatitis PRN (12:15)
[2016-09-23] MEDS ORDERED: AZTREONAM INJ 2,000 MG in SODIUM CHLORIDE 0.9% INJ 100 ML IV SCH (14:00)
--- NOTE | 2016-09-23 14:26 | HHI.PR ---
Subjective Subjective Notes Resting in bed NGT repositioned at bedside Objective Vitals/I&O Vital Signs Date Time Temp Pulse Resp B/P Pulse Ox O2 Delivery O2 Flow Rate FiO2 09/23/16 12:00 98.7 110 22 142/79 94 09/23/16 08:25 2.00 09/22/16 22:00 Nasal Cannula Labs Laboratory Tests Test 09/23/16 03:45 White Blood Count 28.6 Red Blood Count 4.08 Hemoglobin 9.4 Hematocrit 30.3 Mean Corpuscular Volume 74.4 Mean Corpuscular Hemoglobin 23.1 Mean Corpuscular Hemoglobin 31.1 Concent Red Cell Distribution Width 16.1 Platelet Count 306 Mean Platelet Volume 9.3 Neutrophils (%) (Auto) 80.6 Lymphocytes (%) (Auto) 5.8 Monocytes (%) (Auto) 13.3 Eosinophils (%) (Auto) 0.1 Basophils (%) (Auto) 0.2 Neutrophils # (Auto) 23.0 Lymphocytes # (Auto) 1.6 Monocytes # (Auto) 3.8 Eosinophils # (Auto) 0.0 Basophils # (Auto) 0.1 CBC Comment AUTO DIFF Differential Total Cells 100 Counted Neutrophils % (Manual) 85 Lymphocytes % 4 Monocytes % 11 Neutrophils # (Manual) 24.3 Differential Comment FINAL DIFF MANUAL Platelet Estimate NORMAL Platelet Morphology Comment NORMAL Target Cells 1+ Ovalocytes 1+ Keratocytes 1+ Sodium Level 145 Potassium Level 3.5 Chloride Level 110 Carbon Dioxide Level 29.1 Anion Gap 6 Blood Urea Nitrogen 14 Creatinine 0.63 Estimat Glomerular Filtration 154 Rate Random Glucose 149 Calcium Level 10.3 Phosphorus Level 1.7 Magnesium Level 1.8 Total Bilirubin 0.4 Aspartate Amino Transf 10 (AST/SGOT) Alanine Aminotransferase 10 (ALT/SGPT) Alkaline Phosphatase 68 Total Protein 6.6 Albumin 2.5 Date/Time Procedure Status Source Growth 09/19/16 00:00 Gram Stain - Final Complete Wound Other 09/19/16 00:00 Wound Culture - Final Complete Lou Albicans Escherichia Coli 09/19/16 00:00 Fungal Smear - Final Resulted Wound Other FEW BUDDING YEAST CELLS 09/19/16 00:00 Fungal Culture Resulted Wound Other Pending 09/19/16 00:00 Acid Fast Stain - Final Resulted Wound Other NO ACID FAST BACILLI SEEN 09/19/16 00:00 Mycobacterial Culture Resulted Wound Other Pending Cardiovascular: Regular Lungs: Clear Abdomen: Other (soft non tender; EDER x 2 with minimal SS drainage ) Extremities: No edema Narrative Exam Central line with PICC in place A/P Assessment and Plan 66 year old male with pancreatic abscess POD3 I&D pancreatis abscess with pancreatic necrosectomy -NPO; okay for a few ice chips -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 Bowman Abdomen soft; incision clean and dry; retention sutures intact 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 Dr. Hernandez; cipro d/c'd; if wbc's increase, will consider CT and switch diflucan The exam, history, and the medical decision-making described in the above note were completed with the assistance of the mid-level provider. I reviewed and agree with the findings presented. I attest that I had a [id number] encounter with the patient on the same day, and personally performed and documented my assessment and findings in the medical record. Sabine Montague Sep 23, 2016 14:26 Dveyn Bowman MD Sep 24, 2016 06:23
[2016-09-23] MEDS: ERTAPENEM INJ 1,000 MG in SODIUM CHLORIDE 0.9% INJ 100 ML IV SCH (15:02)
[2016-09-23] MEDS: AZITHROMYCIN INJ 500 MG in SODIUM CHLOR 0.9% 250 ML INJ 250 ML IV SCH (15:02)
[2016-09-23] MEDS: ENOXAPARIN SODIUM 40 MG/0.4 ML SYRINGE SQ SCH (20:49)
[2016-09-23] MEDS: FAT EMULSION 20% INJ 250 ML (@10 mls/hr) IV-CENTRAL SCH (20:59)
[2016-09-23] MEDS: FLUCONAZOLE 200 MG PREMIX BAG 100 ML IV SCH (21:09)
[2016-09-24] VITALS (8 sets, daily range): BP systolic 143–166; BP diastolic 88–94; PULSE 89–119; RESP 16–20; TEMP 96.7–100.2; O2SAT 94–100
[2016-09-24] MEDS: [UNRECOGNIZED DRUG - OTHER] IV-CENTRAL SCH ×22 (00:17→21:45)
[2016-09-24] MEDS: SODIUM ACETATE IV-CENTRAL SCH ×22 (00:17→21:45)
[2016-09-24] MEDS: SODIUM CHLORIDE IV-CENTRAL SCH ×22 (00:17→21:45)
[2016-09-24] MEDS: metroNIDAZOLE 500 MG INJ 100 ML IV SCH ×4 (03:51→21:46)
[2016-09-24 05:38] LABS: AUTOMATED NEUTROPHIL # 30.1 TH/MM3 (1.8-7.7); BASOPHIL # 0.1 TH/MM3 (0-0.2); BASOPHIL % 0.1 % (0.0-2.0); EOSINOPHIL % 0.1 % (0.0-4.0); HEMATOCRIT 27.8 % (39.0-51.0); LYMPH % 4.7 % (9.0-44.0); LYMPHOCYTE # 1.7 TH/MM3 (1.0-4.8); MEAN CELL VOLUME 73.9 FL (80.0-100.0); MEAN CORPUSCULAR HEMOGLOBIN 23.1 PG (27.0-34.0); MEAN CORPUSCULAR HGB CONC 31.3 % (32.0-36.0); MONO % 13.1 % (0.0-8.0); PLATELET COUNT 276 TH/MM3 (150-450); RED BLOOD COUNT 3.76 MIL/MM3 (4.50-5.90); RED CELL DISTRIBUTION WIDTH 16.3 % (11.6-17.2); WHITE BLOOD COUNT 36.8 TH/MM3 (4.0-11.0)
[2016-09-24 05:45] LABS: HEMO FLAGS AUTO DIFF
[2016-09-24 05:58] LABS: BICARBONATE 28.6 MEQ/L (21.0-32.0); MAGNESIUM 1.7 MG/DL (1.5-2.5); POTASSIUM 3.4 MEQ/L (3.5-5.1)
[2016-09-24] MEDS: INSULIN ASPART SUPPLEMENTAL SCALE SQ SCH ×4 (06:00→17:22)
[2016-09-24] MEDS: PCA - TOTAL MG MORPHINE DELIVERED PER SHIFT SCH ×3 (06:00→21:47)
[2016-09-24] MEDS ORDERED: IOHEXOL 350 MG/ML 10 ML VIAL (for RAD DIAG) IV ONE (06:59)
--- NOTE | 2016-09-24 07:23 | RADRPT ---
EXAM DATE/TIME: 09/24/2016 06:57 [facility] COMPARISON: CHEST SINGLE AP, September 23, 2016, 11:09. CT ABDOMEN & PELVIS W CONTRAST, September 17, 2016, 15:26. INDICATIONS : Follow up abscess. WBC increasing. IV CONTRAST: 100 cc Omnipaque 350 (iohexol) IV ORAL CONTRAST: No oral contrast ingested. RADIATION DOSE: 10.61 CTDIvol (mGy) MEDICAL HISTORY : Hypertension. SURGICAL HISTORY : Appendectomy. G-tube. ENCOUNTER: Subsequent ACUITY: 2 weeks PAIN SCALE: 5/10 LOCATION: abdomen TECHNIQUE: Volumetric scanning of the abdomen and pelvis was performed. Using automated exposure control and ad justment of the mA and/or kV according to patient size, radiation dose was kept as low as reasonably achievable to obtain optimal diagnostic quality images. FINDINGS: LOWER LUNGS: There is left lower lobe volume loss/collapse that is new since the prior CT. LIVER: Homogeneous density without lesion. Liver measures 19.4 cm in length. There is no dilation of the ling iary tree. No calcified gallstones. SPLEEN: Normal size without lesion. PANCREAS: There are peripancreatic fluid collections. Abutting the tail of the pancreas is a low-density collec tion measuring 5.0 x 2.6 cm compared to 6.8 x 2.8 cm previously. Abutting the head is a collection co ntaining air and fluid like material measuring 7.0 x 5.2 cm compared to 8.6 x 6.4 cm previously. Flui d collections are not causing any obstruction. Pancreas demonstrates normal enhancement without duct dilatation.KIDNEYS: Normal in size and shape. There is no mass, stone or hydronephrosis. There are 2 low-density lesions in the left kidney measuring up to 8 mm and are too small to characterize. ADRENAL GLANDS: Within normal limits. VASCULAR: There is no aortic aneurysm. There is atherosclerotic disease of aorta. Splenic vein is attenuated. BOWEL/MESENTERY: The stomach, small bowel, and colon demonstrate no acute abnormality. There is no free intraperitone al air. There is trace free fluid in the abdomen. Surgical drain extends from the right abdomen to th e left upper quadrant. Nasogastric tube tip is in the stomach. ABDOMINAL WALL: There are postsurgical changes on the anterior abdominal wall. RETROPERITONEUM: There is no lymphadenopathy. BLADDER: No wall thickening or mass. REPRODUCTIVE: Within normal limits. INGUINAL: There is no lymphadenopathy or hernia. MUSCULOSKELETAL: There are degenerative changes of the spine with an old healed left 11th rib fracture posteriorly. CONCLUSION: 1. The peripancreatic fluid collections adjacent to the tail the pancreas and pancreatic head have de creased in size, as above. Similar to prior examination, the collection adjacent to the pancreatic he ad contains air and thick fluid like material. 2. There is left lower lobe collapse/atelectasis that is new since the prior CT. Mason Ceja MD on September 24, 2016 at 7:12 Board Certified Radiologist. This report was verified electronically.
[2016-09-24] MEDS: INSULIN DETEMIR 100 UNITS/ML VIAL SQ SCH ×2 (08:26→21:56)
[2016-09-24] MEDS: BUDESONIDE-FORMOTEROL 160/4.5 MCG INHALER INH SCH ×2 (08:28→21:49)
[2016-09-24] MEDS: SODIUM CHLOR 0.9% 1000 ML INJ 1,000 ML IV SCH (08:28)
[2016-09-24] MEDS: SODIUM CHLORIDE 0.9% FLUSH 10 ML FLUSH IV FLUSH SCH ×2 (08:28→21:48)
[2016-09-24 09:07] LABS: ACANTHOCYTES OCC (NORMAL); BANDS 2 % (0-6); KERATOCYTES 1+ (NORMAL); NEUTROPHIL # MANUAL DIFF 30.2 TH/MM3 (1.8-7.7); OVALOCYTES 1+ (NORMAL); PLATELET ESTIMATE SMEAR NORMAL (NORMAL); PLATELET MORPHOLOGY NORMAL (NORMAL); POLYS (SEG NEUTROPHILS) 80 % (16-70); SCAN/DIFF FINAL DIFF MANUAL; WBC DIFF SAMPLE 100
[2016-09-24 09:08] LABS: TARGET CELLS 1+ (NORMAL)
[2016-09-24] MEDS ORDERED: Vancomycin Consult Pharmacy 1 EA OTHER SCH (09:45)
--- NOTE | 2016-09-24 09:55 | HHI.PR ---
Subjective Subjective Notes Pt denies complaints, pain well controlled, passing flatus, having BMs. Objective Vitals/I&O Vital Signs Date Time Temp Pulse Resp B/P Pulse Ox O2 Delivery O2 Flow Rate FiO2 09/24/16 08:30 94 21 09/24/16 08:00 98.9 89 16 152/89 09/24/16 01:36 Nasal Cannula 2.00 Labs Laboratory Tests Test 09/24/16 05:15 White Blood Count 36.8 Red Blood Count 3.76 Hemoglobin 8.7 Hematocrit 27.8 Mean Corpuscular Volume 73.9 Mean Corpuscular Hemoglobin 23.1 Mean Corpuscular Hemoglobin 31.3 Concent Red Cell Distribution Width 16.3 Platelet Count 276 Mean Platelet Volume 9.9 Neutrophils (%) (Auto) 82.0 Lymphocytes (%) (Auto) 4.7 Monocytes (%) (Auto) 13.1 Eosinophils (%) (Auto) 0.1 Basophils (%) (Auto) 0.1 Neutrophils # (Auto) 30.1 Lymphocytes # (Auto) 1.7 Monocytes # (Auto) 4.8 Eosinophils # (Auto) 0.0 Basophils # (Auto) 0.1 CBC Comment AUTO DIFF Differential Total Cells 100 Counted Neutrophils % (Manual) 80 Band Neutrophils % 2 Lymphocytes % 8 Monocytes % 10 Neutrophils # (Manual) 30.2 Differential Comment FINAL DIFF MANUAL Platelet Estimate NORMAL Platelet Morphology Comment NORMAL Target Cells 1+ Ovalocytes 1+ Acanthocytes OCC Keratocytes 1+ Sodium Level 146 Potassium Level 3.4 Chloride Level 112 Carbon Dioxide Level 28.6 Anion Gap 5 Blood Urea Nitrogen 14 Creatinine 0.66 Estimat Glomerular Filtration 146 Rate Random Glucose 155 Calcium Level 9.6 Phosphorus Level 2.3 Magnesium Level 1.7 Date/Time Procedure Status Source Growth 09/23/16 18:30 Legionella Antigen - Final Complete Urine Random Urine PRESUMPTIVE NEGATIVE FOR LEGIONELLA P... 09/23/16 18:30 Streptococcus pneumoniae Antigen (M - Final Complete Urine Random Urine PRESUMPTIVE NEGATIVE FOR STREPTOCOCCU... Abdomen: Non-distended, Non-tender, Other (Incision intact with external retention sutures in place. No erythema. Drain serosanguinous.) A/P Assessment and Plan Necrotizing pancreatitis s/p operative debridements. On abx, WBC up to [address] shows two extra pancreatic collections, slightly smaller than prior preop exam. ID following. Will discuss with Dr Colby re: potential repeat exploration for further debridement. El Foster MD Sep 24, 2016 09:55
[2016-09-24] MEDS: REMOVE OLD CATAPRES (CLONIDINE) PATCH T-DERMAL SCH (11:00)
[2016-09-24] MEDS: cloNIDine HCL 0.3 MG/24 HR PATCH T-DERMAL SCH (11:53)
[2016-09-24] MEDS: VANCOMYCIN INJ 1,250 MG in SODIUM CHLOR 0.9% 250 ML INJ 250 ML IV SCH ×2 (13:03→23:52)
--- NOTE | 2016-09-24 13:48 | HHI.PR ---
Subjective Remarks Follow-up leukocytosis. Worsening leukocytosis despite adding Invanz and Zithromax yesterday. Patient reports of improving pain, cough and shortness of breath. 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 RN and pharmacy Objective Vitals Vital Signs Date Time Temp Pulse Resp B/P Pulse Ox O2 Delivery O2 Flow Rate FiO2 09/24/16 12:00 100.2 119 17 143/92 100 09/24/16 08:30 94 21 09/24/16 08:15 97 Nasal Cannula 3.00 09/24/16 08:00 98.9 89 16 152/89 97 09/24/16 06:00 18 09/24/16 04:00 166/88 09/24/16 01:36 Nasal Cannula 2.00 09/24/16 00:00 99.9 100 18 166/94 97 09/23/16 22:00 18 09/23/16 20:00 99.3 106 18 173/93 96 09/23/16 19:09 96 Nasal Cannula 2.00 09/23/16 16:00 98.8 111 20 160/88 98 09/23/16 14:00 20 I/O 09/23/16 09/23/16 09/23/16 09/24/16 09/24/16 09/24/16 07:00 15:00 23:00 07:00 15:00 23:00 Intake Total 754 ml 1407 ml 0 ml 0 ml 1231 ml Output Total 825 ml 510 ml 325 ml 650 ml 135 ml Balance -71 ml 897 ml -325 ml -650 ml 1096 ml Intake Oral 0 ml 0 ml 0 ml IV Total 348 ml 479 ml 1231 ml TPN/PPN 362 ml 829 ml Lipid 44 ml 99 ml Output Urine Total 800 ml 500 ml 325 ml 650 ml Gastric Drainage Total 25 ml 125 ml Drainage Total 0 ml 10 ml 10 ml # Bowel Movements 0 1 Result Diagram: 09/24/16 0515 09/24/16 0515 Imaging Last Impressions Abdomen/Pelvis CT 09/24/16 0000 Signed Impressions: Service Date/Time: Saturday, September 24, 2016 06:57 - CONCLUSION: 1. The peripancreatic fluid collections adjacent to the tail the pancreas and pancreatic head have decreased in size, as above. Similar to prior examination , the collection adjacent to the pancreatic head contains air and thick fluid like material. 2. There is left lower lobe collapse/atelectasis that is new since the prior CT. Mason Ceja MD Chest X-Ray 09/23/16 0000 Signed Impressions: Service Date/Time: Friday, September 23, 2016 11:09 - CONCLUSION: Increasing consolidative changes left base. Kermit Rollins MD FACR Objective Remarks GENERAL: This is a very thin, malnourished, in no apparent distress. NGT in place SKIN: No rashes, warm and dry HEAD: Atraumatic. Normocephalic. EYES: Pupils equal round and reactive. Extraocular motions intact. No scleral icterus. ENT: Nose without bleeding, or drainage, Airway patent. NECK: Trachea midline. Supple CARDIOVASCULAR: Regular rate and rhythm without murmurs, gallops, or rubs. RESPIRATORY: Fair air entry bilaterally. No wheezes, rales, or rhonchi. GASTROINTESTINAL: Abdominal binder observed, Abdomen soft but diffusely tender, mildly distended. + bowel sounds. EDER drain with serosanguineous fluid. MUSCULOSKELETAL: Extremities without clubbing, cyanosis, or edema. Pedal pulses appreciated NEUROLOGICAL: Awake and alert. Moves all extremity. Normal speech. Procedures Right IJ central line sp Exploratory laparotomy, irrigation and debridement of peripancreatic abscess and necrosectomy Line: Central Venous Catheter Side: Right Location: Internal, Jugular A/P Problem List: (1) Pancreatic abscess ICD Code: K85.90 Status: Acute (2) Hypercalcemia ICD Code: E83.52 Status: Acute (3) Leukocytosis ICD Code: D72.829 Status: Acute (4) Alcohol abuse ICD Code: F10.10 Status: Chronic (5) COPD (chronic obstructive pulmonary disease) ICD Code: J44.9 Status: Chronic (6) DM (diabetes mellitus) ICD Code: E11.9 Status: Chronic Assessment and Plan 1. Pancreatic Abscess: c/o acute onset abdominal pain x4 days, recent "pancreas surgery" at by Dr. Mathias approx 2wks ago for pseudocyst. CT Abd/Pelvis .1 x 7 cm abscess at site of previous pseudocyst on July 07, complex 7.3 x 3.8 presumed pseudocyst at aortic bifurcation, similar to July 07 images. Patient is sp exploratory laparotomy, irrigation and drainage of pancreatic abscess. Management as per general surgery. 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 Continue IV antibiotics see below. 2. Hypercalcemia: Improving. IVF for hydration. 3. Leukocytosis: WBC worsening despite IV Abx S/p Azactam/Flagyl in ER. Patient with low-grade fever, repeat chest x-ray shows worsening consolidation imaging study interpreted by me. Continue IV Flagyl, Invanz, azithromycin and Diflucan. IV Vancomycin added today. Rpt A/P CT noted may need repeat exploration. Out of bed and incentive spirometry 4. Alcohol Abuse: reports h/o alcohol abuse, however states he quit. Continue to monitor for possible withdrawal. Resume Folic Acid, Thiamine 5. COPD: Chronic Respiratory Failure. Stable. Resume home MDI/Neb. continue O2 to keep o2 sat more than 92%. 6. DM: Sliding scale w/ Accu-Cheks. Hold Metformin. Will continue insulin Levemir and regular in the TPN. 7. HTN: BP elevated and uncontrolled. Continue Labetalol PRN. Increase clonidine patch to TTS 3. 8. Hypophosphatemia: Likely poor nutritional status. Replace. Monitor phosphorus. 9. Hypokalemia: Likely due to poor nutritional status. Replace Iv and monitor BMP. 10. DVT Prophylaxis: SCD/Teds and Lovenox. I spent 35 minutes [id number] with the patient or on the porter discussing the patient's disposition, prognosis, and plan of care with patient's caregivers. Over half the time spent was devoted to counseling the patient regarding care with caregivers Discharge Planning Not ready for discharge Ac Liu MD Sep 24, 2016 13:48
[2016-09-24] MEDS: AZITHROMYCIN INJ 500 MG in SODIUM CHLOR 0.9% 250 ML INJ 250 ML IV SCH (14:29)
[2016-09-24] MEDS: MORPHINE SULFATE 30 MG/30 ML PCA IV SCH (15:18)
[2016-09-24] MEDS: ERTAPENEM INJ 1,000 MG in SODIUM CHLORIDE 0.9% INJ 100 ML IV SCH (15:33)
[2016-09-24] MEDS: RESP: ALBUTEROL 2.5 MG/3 ML NEB (PRN) NEB (15:53)
[2016-09-24] MEDS ORDERED: POTASSIUM PHOSPHATE INJ 15 MMOL in SODIUM CHLORIDE 0.9% INJ 150 ML IV ONE (16:00)
[2016-09-24] MEDS: FAT EMULSION 20% INJ 250 ML (@10 mls/hr) IV-CENTRAL SCH (21:45)
[2016-09-24] MEDS: ENOXAPARIN SODIUM 40 MG/0.4 ML SYRINGE SQ SCH (21:47)
[2016-09-24] MEDS: FLUCONAZOLE 200 MG PREMIX BAG 100 ML IV SCH (21:47)
[2016-09-25] VITALS (8 sets, daily range): BP systolic 142–161; BP diastolic 82–93; PULSE 86–101; RESP 17–20; TEMP 98.3–99.4; O2SAT 95–100
[2016-09-25] MEDS: INSULIN ASPART SUPPLEMENTAL SCALE SQ SCH ×4 (00:03→17:12)
[2016-09-25] MEDS: metroNIDAZOLE 500 MG INJ 100 ML IV SCH ×4 (03:43→20:30)
[2016-09-25] MEDS: PCA - TOTAL MG MORPHINE DELIVERED PER SHIFT SCH ×3 (05:28→20:56)
[2016-09-25 06:04] LABS: AUTOMATED NEUTROPHIL # 25.6 TH/MM3 (1.8-7.7); BASOPHIL # 0.1 TH/MM3 (0-0.2); BASOPHIL % 0.3 % (0.0-2.0); EOSINOPHIL # 0.2 TH/MM3 (0-0.4); EOSINOPHIL % 0.7 % (0.0-4.0); HEMATOCRIT 27.1 % (39.0-51.0); LYMPH % 8.2 % (9.0-44.0); LYMPHOCYTE # 2.7 TH/MM3 (1.0-4.8); MEAN CELL VOLUME 74.6 FL (80.0-100.0); MEAN CORPUSCULAR HGB CONC 30.8 % (32.0-36.0); MONO % 12.9 % (0.0-8.0); NEUT % 77.9 % (16.0-70.0); PLATELET COUNT 245 TH/MM3 (150-450); RED BLOOD COUNT 3.63 MIL/MM3 (4.50-5.90); RED CELL DISTRIBUTION WIDTH 16.6 % (11.6-17.2); WHITE BLOOD COUNT 32.8 TH/MM3 (4.0-11.0)
[2016-09-25 06:09] LABS: HEMO FLAGS AUTO DIFF
[2016-09-25 06:29] LABS: ALT (GPT) 9 U/L (12-78); ANION GAP 7 MEQ/L (5-15); AST (GOT) 6 U/L (15-37); BICARBONATE 27.3 MEQ/L (21.0-32.0); BLOOD UREA NITROGEN 16 MG/DL (7-18); CHLORIDE 115 MEQ/L (98-107); GLOMERULAR FILTRATION RATE 146 ML/MIN (>89); MAGNESIUM 1.9 MG/DL (1.5-2.5); POTASSIUM 3.5 MEQ/L (3.5-5.1); SODIUM (NA) 149 MEQ/L (136-145)
[2016-09-25 06:31] LABS: ALKALINE PHOSPHATASE 91 U/L (45-117); TOTAL BILIRUBIN ADULT 0.2 MG/DL (0.2-1.0)
[2016-09-25 07:12] LABS: BASOPHILS 1 % (0-2); NEUTROPHIL # MANUAL DIFF 26.2 TH/MM3 (1.8-7.7); POLYS (SEG NEUTROPHILS) 80 % (16-70); WBC DIFF SAMPLE 100
[2016-09-25 07:13] LABS: ACANTHOCYTES OCC (NORMAL); KERATOCYTES OCC (NORMAL); PLATELET ESTIMATE SMEAR NORMAL (NORMAL); PLATELET MORPHOLOGY NORMAL (NORMAL); SCAN/DIFF FINAL DIFF MANUAL; TARGET CELLS 1+ (NORMAL)
[2016-09-25] MEDS: BUDESONIDE-FORMOTEROL 160/4.5 MCG INHALER INH SCH ×2 (09:10→20:55)
[2016-09-25] MEDS: INSULIN DETEMIR 100 UNITS/ML VIAL SQ SCH ×2 (09:11→22:07)
[2016-09-25] MEDS: SODIUM CHLORIDE 0.9% FLUSH 10 ML FLUSH IV FLUSH SCH ×2 (09:12→20:56)
[2016-09-25] MEDS ORDERED: MISCELLANEOUS PHARMACY INFORMATION OTHER SCH (09:15)
[2016-09-25] MEDS ORDERED: [UNRECOGNIZED DRUG - OTHER] IV-CENTRAL SCH ×10 (09:30)
[2016-09-25] MEDS ORDERED: POTASSIUM CHLORIDE IV-CENTRAL SCH ×10 (09:30)
[2016-09-25] MEDS ORDERED: SODIUM ACETATE IV-CENTRAL SCH ×10 (09:30)
--- NOTE | 2016-09-25 11:13 | HHI.PR ---
Subjective Remarks Follow-up abdominal abscess. Pain under control. No fever. 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 RN and pharmacy Objective Vitals Vital Signs Date Time Temp Pulse Resp B/P Pulse Ox O2 Delivery O2 Flow Rate FiO2 09/25/16 08:00 98.8 96 17 143/90 98 09/25/16 05:28 18 09/25/16 04:00 99.0 98 20 156/93 99 09/25/16 00:00 98.6 101 20 161/88 99 09/24/16 21:47 18 09/24/16 21:45 Nasal Cannula 3.00 09/24/16 21:20 Nasal Cannula 2.00 09/24/16 20:00 96.7 100 20 157/92 99 09/24/16 16:00 97.5 94 17 145/88 99 09/24/16 15:55 98 Nasal Cannula 2.00 09/24/16 15:18 17 09/24/16 14:00 17 09/24/16 12:00 100.2 119 17 143/92 100 I/O 09/24/16 09/24/16 09/24/16 09/25/16 09/25/16 09/25/16 07:00 15:00 23:00 07:00 15:00 23:00 Intake Total 0 ml 2874 ml 1377 ml 1261 ml Output Total 650 ml 660 ml 650 ml 605 ml Balance -650 ml 2214 ml 727 ml 656 ml Intake Oral 0 ml 0 ml 0 ml 0 ml IV Total 1773 ml 653 ml 597 ml TPN/PPN 997 ml 647 ml 590 ml Lipid 104 ml 77 ml 74 ml Output Urine Total 650 ml 400 ml 450 ml 500 ml Gastric Drainage Total 245 ml 200 ml 100 ml Drainage Total 15 ml 0 ml 5 ml # Bowel Movements 1 0 Result Diagram: 09/25/16 0530 09/25/16 0530 Imaging Last Impressions Abdomen/Pelvis CT 09/24/16 0000 Signed Impressions: Service Date/Time: Saturday, September 24, 2016 06:57 - CONCLUSION: 1. The peripancreatic fluid collections adjacent to the tail the pancreas and pancreatic head have decreased in size, as above. Similar to prior examination , the collection adjacent to the pancreatic head contains air and thick fluid like material. 2. There is left lower lobe collapse/atelectasis that is new since the prior CT. Mason Ceja MD Chest X-Ray 09/23/16 0000 Signed Impressions: Service Date/Time: Friday, September 23, 2016 11:09 - CONCLUSION: Increasing consolidative changes left base. Kermit Rollins MD FACR Objective Remarks GENERAL: This is a very thin, malnourished, in no apparent distress. NGT in place SKIN: No rashes, warm and dry HEAD: Atraumatic. Normocephalic. EYES: Pupils equal round and reactive. Extraocular motions intact. No scleral icterus. ENT: Nose without bleeding, or drainage, Airway patent. NECK: Trachea midline. Supple CARDIOVASCULAR: Regular rate and rhythm without murmurs, gallops, or rubs. RESPIRATORY: Fair air entry bilaterally. No wheezes, rales, or rhonchi. GASTROINTESTINAL: Abdominal binder observed, Abdomen soft but diffusely tender, mildly distended. + bowel sounds. EDER drain with serosanguineous fluid. MUSCULOSKELETAL: Extremities without clubbing, cyanosis, or edema. Pedal pulses appreciated NEUROLOGICAL: Awake and alert. Moves all extremity. Normal speech. Chronic left facial droop and right upper extremity weakness Procedures Right IJ central line sp Exploratory laparotomy, irrigation and debridement of peripancreatic abscess and necrosectomy Line: Central Venous Catheter Side: Right Location: Internal, Jugular A/P Problem List: (1) Pancreatic abscess ICD Code: K85.90 Status: Acute (2) Hypercalcemia ICD Code: E83.52 Status: Resolved (3) Leukocytosis ICD Code: D72.829 Status: Acute (4) Alcohol abuse ICD Code: F10.10 Status: Chronic (5) COPD (chronic obstructive pulmonary disease) ICD Code: J44.9 Status: Chronic (6) DM (diabetes mellitus) ICD Code: E11.9 Status: Chronic Assessment and Plan 1. Pancreatic Abscess: c/o acute onset abdominal pain x4 days, recent "pancreas surgery" at by Dr. Mathias approx 2wks ago for pseudocyst. CT Abd/Pelvis / .1 x 7 cm abscess at site of previous pseudocyst on July 07, complex 7.3 x 3.8 presumed pseudocyst at aortic bifurcation, similar to July 07 images. Patient is sp exploratory laparotomy, irrigation and drainage of pancreatic abscess. Management as per general surgery. 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 2. Hypercalcemia: Improving. IVF for hydration. 3. Leukocytosis: WBC worsening (though slightly improved today) despite IV Abx S/p Azactam/Flagyl in ER. Patient with low-grade fever, repeat chest x-ray shows worsening consolidation imaging study interpreted by me. Continue IV vancomycin, Flagyl, Invanz, azithromycin and Diflucan. Rpt A/P CT noted may need repeat exploration. Out of bed and incentive spirometry 4. Alcohol Abuse: reports h/o alcohol abuse, however states he quit. Continue to monitor for possible withdrawal. Resume Folic Acid, Thiamine 5. COPD: Chronic Respiratory Failure. Stable. Resume home MDI/Neb. continue O2 to keep o2 sat more than 92%. 6. DM: Sliding scale w/ Accu-Cheks. Hold Metformin. Will continue insulin Levemir and regular in the TPN. 7. HTN: BP elevated and uncontrolled. Continue Labetalol PRN. Increase clonidine patch to TTS 3. 8. Hypophosphatemia: Likely poor nutritional status. Replace. Monitor phosphorus. 9. Hypokalemia: Likely due to poor nutritional status. Replace Iv and monitor BMP. 10. DVT Prophylaxis: SCD/Teds and Lovenox. Discharge Planning Not ready for discharge Ac Liu MD Sep 25, 2016 11:13
--- NOTE | 2016-09-25 11:29 | HHI.PR ---
Subjective Subjective Notes Feeling OK today Objective Vitals/I&O Vital Signs Date Time Temp Pulse Resp B/P Pulse Ox O2 Delivery O2 Flow Rate FiO2 09/25/16 08:00 98.8 96 17 143/90 98 09/24/16 21:45 Nasal Cannula 3.00 09/24/16 08:30 21 Labs Laboratory Tests Test 09/25/16 05:30 White Blood Count 32.8 Red Blood Count 3.63 Hemoglobin 8.3 Hematocrit 27.1 Mean Corpuscular Volume 74.6 Mean Corpuscular Hemoglobin 23.0 Mean Corpuscular Hemoglobin 30.8 Concent Red Cell Distribution Width 16.6 Platelet Count 245 Mean Platelet Volume 9.9 Neutrophils (%) (Auto) 77.9 Lymphocytes (%) (Auto) 8.2 Monocytes (%) (Auto) 12.9 Eosinophils (%) (Auto) 0.7 Basophils (%) (Auto) 0.3 Neutrophils # (Auto) 25.6 Lymphocytes # (Auto) 2.7 Monocytes # (Auto) 4.2 Eosinophils # (Auto) 0.2 Basophils # (Auto) 0.1 CBC Comment AUTO DIFF Differential Total Cells 100 Counted Neutrophils % (Manual) 80 Lymphocytes % 8 Monocytes % 11 Basophils % 1 Neutrophils # (Manual) 26.2 Differential Comment FINAL DIFF MANUAL Platelet Estimate NORMAL Platelet Morphology Comment NORMAL Target Cells 1+ Acanthocytes OCC Keratocytes OCC Sodium Level 149 Potassium Level 3.5 Chloride Level 115 Carbon Dioxide Level 27.3 Anion Gap 7 Blood Urea Nitrogen 16 Creatinine 0.66 Estimat Glomerular Filtration 146 Rate Random Glucose 136 Calcium Level 9.6 Phosphorus Level 2.3 Magnesium Level 1.9 Total Bilirubin 0.2 Aspartate Amino Transf 6 (AST/SGOT) Alanine Aminotransferase 9 (ALT/SGPT) Alkaline Phosphatase 91 Total Protein 6.3 Albumin 2.3 Date/Time Procedure Status Source Growth 09/23/16 18:30 Legionella Antigen - Final Complete Urine Random Urine PRESUMPTIVE NEGATIVE FOR LEGIONELLA P... 09/23/16 18:30 Streptococcus pneumoniae Antigen (M - Final Complete Urine Random Urine PRESUMPTIVE NEGATIVE FOR STREPTOCOCCU... 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 Devyn Bowman MD Sep 25, 2016 11:29
[2016-09-25] MEDS: VANCOMYCIN INJ 1,250 MG in SODIUM CHLOR 0.9% 250 ML INJ 250 ML IV SCH (11:54)
[2016-09-25] MEDS: AZITHROMYCIN INJ 500 MG in SODIUM CHLOR 0.9% 250 ML INJ 250 ML IV SCH (13:38)
[2016-09-25] MEDS: ERTAPENEM IV SCH (17:09)
[2016-09-25] MEDS: SODIUM CHLORIDE 0.9% IV SCH (17:09)
[2016-09-25] MEDS: [UNRECOGNIZED DRUG - OTHER] IV-CENTRAL SCH ×10 (20:29)
[2016-09-25] MEDS: SODIUM ACETATE IV-CENTRAL SCH ×10 (20:29)
[2016-09-25] MEDS: POTASSIUM CHLORIDE IV-CENTRAL SCH ×10 (20:29)
[2016-09-25] MEDS: FAT EMULSION 20% INJ 250 ML (@10 mls/hr) IV-CENTRAL SCH (20:29)
[2016-09-25] MEDS: ENOXAPARIN SODIUM 40 MG/0.4 ML SYRINGE SQ SCH (20:30)
[2016-09-25] MEDS: FLUCONAZOLE 200 MG PREMIX BAG 100 ML IV SCH (20:30)
[2016-09-25] MEDS: RESP: ALBUTEROL 2.5 MG/3 ML NEB (PRN) NEB (21:13)
[2016-09-25] MEDS ORDERED: PHARMACY ORDERED LAB ONE (23:45)
[2016-09-26] VITALS (7 sets, daily range): BP systolic 150–164; BP diastolic 75–83; PULSE 81–94; RESP 16–19; TEMP 96.9–99.4; O2SAT 95–100
[2016-09-26 00:59] LABS: BICARBONATE 25.3 MEQ/L (21.0-32.0); MAGNESIUM 1.9 MG/DL (1.5-2.5); POTASSIUM 3.5 MEQ/L (3.5-5.1)
[2016-09-26 01:00] LABS: VANCOMYCIN TROUGH 10.3 MCG/ML (5.0-10.0)
[2016-09-26] MEDS: VANCOMYCIN INJ 1,250 MG in SODIUM CHLOR 0.9% 250 ML INJ 250 ML IV SCH (01:06)
[2016-09-26] MEDS: RESP: ALBUTEROL 2.5 MG/3 ML NEB (PRN) NEB (01:29)
[2016-09-26] MEDS: metroNIDAZOLE 500 MG INJ 100 ML IV SCH ×4 (03:30→20:31)
[2016-09-26] MEDS: INSULIN ASPART SUPPLEMENTAL SCALE SQ SCH ×4 (05:12→17:30)
[2016-09-26] MEDS: PCA - TOTAL MG MORPHINE DELIVERED PER SHIFT SCH ×3 (05:12→22:00)
[2016-09-26 05:37] LABS: AUTOMATED NEUTROPHIL # 18.4 TH/MM3 (1.8-7.7); BASOPHIL # 0.1 TH/MM3 (0-0.2); BASOPHIL % 0.3 % (0.0-2.0); EOSINOPHIL # 0.9 TH/MM3 (0-0.4); EOSINOPHIL % 3.6 % (0.0-4.0); HEMATOCRIT 24.7 % (39.0-51.0); LYMPH % 9.5 % (9.0-44.0); LYMPHOCYTE # 2.4 TH/MM3 (1.0-4.8); MEAN CELL VOLUME 74.6 FL (80.0-100.0); MEAN CORPUSCULAR HEMOGLOBIN 23.3 PG (27.0-34.0); MEAN CORPUSCULAR HGB CONC 31.3 % (32.0-36.0); MONO % 12.9 % (0.0-8.0); NEUT % 73.7 % (16.0-70.0); PLATELET COUNT 253 TH/MM3 (150-450); RED BLOOD COUNT 3.31 MIL/MM3 (4.50-5.90); RED CELL DISTRIBUTION WIDTH 16.6 % (11.6-17.2)
[2016-09-26 06:04] LABS: HEMO FLAGS AUTO DIFF
[2016-09-26 07:11] LABS: EOSINOPHILS 1 % (0-4); NEUTROPHIL # MANUAL DIFF 20.8 TH/MM3 (1.8-7.7); PLATELET ESTIMATE SMEAR NORMAL (NORMAL); PLATELET MORPHOLOGY NORMAL (NORMAL); POLYS (SEG NEUTROPHILS) 83 % (16-70); SCAN/DIFF FINAL DIFF MANUAL; WBC DIFF SAMPLE 100
[2016-09-26 07:12] LABS: ACANTHOCYTES OCC (NORMAL)
[2016-09-26] MEDS: SODIUM CHLORIDE 0.9% FLUSH 10 ML FLUSH IV FLUSH SCH ×2 (08:49→20:38)
[2016-09-26] MEDS: BUDESONIDE-FORMOTEROL 160/4.5 MCG INHALER INH SCH ×2 (08:49→20:39)
[2016-09-26] MEDS: INSULIN DETEMIR 100 UNITS/ML VIAL SQ SCH ×2 (08:56→20:36)
[2016-09-26] MEDS ORDERED: DIATRIZOATE MEGLUM/DIATRIZOATE SOD 120 ML BTL (for RAD DIAG) NG ONE (10:21)
--- NOTE | 2016-09-26 11:30 | RADRPT ---
EXAM DATE/TIME: 09/26/2016 08:53 [place] COMPARISON: No previous studies available for comparison. INDICATIONS : Evaluate for posterior gastric leak. FLUORO TIME: 1.0 minutes IMAGE COUNT: 6 CONTRAST: 1. MD [place] MEDICAL HISTORY : Hypertension. Chronic obstructive pulmonary disease. SURGICAL HISTORY : None. G-tube placed and removed. ENCOUNTER: Initial ACUITY: 3 months PAIN SCORE: Non-responsive. LOCATION: Upper quadrant abdomen. FINDINGS: Assembler Sandal Parts film reveals an NG tube in place. There is also midline lowell and fasteners over the anterio r abdomen. Gastrografin was instilled through the NG tube. There does appear to be extra luminal co ntrast seen between the distal aspect of the stomach and duodenum. This measures approximately 6.7 c m in transverse dimension, 5.3 cm in AP dimension and 5.7 cm in height. On the lateral view this sabra ears to extend from the distal anterior aspect of the stomach. Preliminary film is unremarkable. Th ere is a drain seen at the mid abdomen and directed towards to the left upper quadrant. CONCLUSION: Suspected gastric perforation at the inferior distal aspect of the stomach with a collection seen inf erior to the distal stomach and anterior to the duodenum. Mason Monge MD on September 26, 2016 at 10:38 Board Certified Radiologist. This report was verified electronically.
[2016-09-26] MEDS: VANCOMYCIN INJ 1,500 MG in SODIUM CHLORID 0.9% 500 ML INJ 500 ML IV SCH (12:35)
--- NOTE | 2016-09-26 12:51 | HHI.IDPN ---
Note Infectious Disease Note Notes reviewed. Patient says he is thirsty. Feels weak but okay. No nausea. No chills. On TPN and has NG tube. WBC elevated but decreasing. Continues to have leukocytosis. Presented to [facility] on September 16 with abdominal pain and also nausea and vomiting. Post irrigation and debridement of pancreatic abscess which was a large abscess and also pancreatic necrosectomy. PAST MEDICAL HISTORY: 1. Hepatitis C. 2. COPD. 3. Diabetes mellitus. 4. Alcohol abuse. 5. Congestive heart failure. 6. COPD. 7. History of appendectomy. 8. Patient underwent pancreatic necrosectomy on August 26, 2016. ALLERGIES: PENICILLIN. MEDICATIONS: 1. Ertapenem. . 2. Fluconazole. 3. Metronidazole. 4. Vancomycin. SOCIAL HISTORY: The patient smoked two packs of cigarettes a day up until June of 2016. Alcohol use up until April of 2016. No illicit drugs. OBJECTIVE: Vital Signs Date Time Temp Pulse Resp B/P Pulse Ox O2 Delivery O2 Flow Rate FiO2 09/26/16 12:00 96.9 88 17 161/80 99 156/80 09/26/16 08:45 99 Room Air 2.00 09/26/16 08:30 98 Nasal Cannula 2.00 09/26/16 08:00 99.4 94 16 158/79 99 09/26/16 05:12 18 09/26/16 04:00 98.9 94 19 150/75 97 09/26/16 00:00 99.4 92 18 154/75 95 09/25/16 21:15 99 Nasal Cannula 2.00 09/25/16 20:56 20 09/25/16 20:55 Nasal Cannula 2.00 09/25/16 20:00 99.4 98 17 142/89 95 09/25/16 16:00 98.4 86 17 158/86 99 09/25/16 14:00 20 09/25/16 13:00 100 Nasal Cannula 2.00 09/25/16 09/25/16 09/26/16 15:00 23:00 07:00 Intake Total 1788 ml 799 ml 1113 ml Output Total 630 ml 640 ml 655 ml Balance 1158 ml 159 ml 458 ml Intake Oral 0 ml 0 ml 0 ml IV Total 787 ml 262 ml 471 ml TPN/PPN 893 ml 480 ml 575 ml Lipid 108 ml 57 ml 67 ml Output Urine Total 625 ml 540 ml 500 ml Gastric Drainage Total 0 ml 100 ml 150 ml Drainage Total 5 ml 0 ml 5 ml # Voids 1 # Bowel Movements 2 0 0 Laboratory Tests Test 09/25/16 09/26/16 05:30 05:10 White Blood Count 32.8 TH/MM3 25.0 TH/MM3 Red Blood Count 3.63 MIL/MM3 3.31 MIL/MM3 Hemoglobin 8.3 GM/DL 7.7 GM/DL Hematocrit 27.1 % 24.7 % Mean Corpuscular Volume 74.6 FL 74.6 FL Mean Corpuscular Hemoglobin 23.0 PG 23.3 PG Mean Corpuscular Hemoglobin 30.8 % 31.3 % Concent Red Cell Distribution Width 16.6 % 16.6 % Platelet Count 245 TH/MM3 253 TH/MM3 Mean Platelet Volume 9.9 FL 10.3 FL Neutrophils (%) (Auto) 77.9 % 73.7 % Lymphocytes (%) (Auto) 8.2 % 9.5 % Monocytes (%) (Auto) 12.9 % 12.9 % Eosinophils (%) (Auto) 0.7 % 3.6 % Basophils (%) (Auto) 0.3 % 0.3 % Neutrophils # (Auto) 25.6 TH/MM3 18.4 TH/MM3 Lymphocytes # (Auto) 2.7 TH/MM3 2.4 TH/MM3 Monocytes # (Auto) 4.2 TH/MM3 3.2 TH/MM3 Eosinophils # (Auto) 0.2 TH/MM3 0.9 TH/MM3 Basophils # (Auto) 0.1 TH/MM3 0.1 TH/MM3 CBC Comment AUTO DIFF AUTO DIFF Differential Total Cells 100 100 Counted Neutrophils % (Manual) 80 % 83 % Lymphocytes % 8 % 5 % Monocytes % 11 % 11 % Basophils % 1 % Neutrophils # (Manual) 26.2 TH/MM3 20.8 TH/MM3 Differential Comment FINAL DIFF FINAL DIFF MANUAL MANUAL Platelet Estimate NORMAL NORMAL Platelet Morphology Comment NORMAL NORMAL Target Cells 1+ Acanthocytes OCC OCC Keratocytes OCC Eosinophils % 1 % Laboratory Tests Test 09/25/16 09/26/16 05:30 00:20 Sodium Level 149 MEQ/L 147 MEQ/L Potassium Level 3.5 MEQ/L 3.5 MEQ/L Chloride Level 115 MEQ/L 114 MEQ/L Carbon Dioxide Level 27.3 MEQ/L 25.3 MEQ/L Anion Gap 7 MEQ/L 8 MEQ/L Blood Urea Nitrogen 16 MG/DL 17 MG/DL Creatinine 0.66 MG/DL 0.60 MG/DL Estimat Glomerular Filtration 146 ML/MIN 163 ML/MIN Rate Random Glucose 136 MG/DL 135 MG/DL Calcium Level 9.6 MG/DL 9.1 MG/DL Phosphorus Level 2.3 MG/DL 2.8 MG/DL Magnesium Level 1.9 MG/DL 1.9 MG/DL Total Bilirubin 0.2 MG/DL Aspartate Amino Transf 6 U/L (AST/SGOT) Alanine Aminotransferase 9 U/L (ALT/SGPT) Alkaline Phosphatase 91 U/L Total Protein 6.3 GM/DL Albumin 2.3 GM/DL Microbiology Date/Time Procedure Status Source Growth 09/23/16 18:30 Legionella Antigen - Final Complete Urine Random Urine PRESUMPTIVE NEGATIVE FOR LEGIONELLA P... 09/23/16 18:30 Streptococcus pneumoniae Antigen (M - Final Complete Urine Random Urine PRESUMPTIVE NEGATIVE FOR STREPTOCOCCU... Last 72 hours Impressions Abdomen/Pelvis CT 09/24/16 0000 Signed Impressions: Service Date/Time: Saturday, September 24, 2016 06:57 - CONCLUSION: 1. The peripancreatic fluid collections adjacent to the tail the pancreas and pancreatic head have decreased in size, as above. Similar to prior examination , the collection adjacent to the pancreatic head contains air and thick fluid like material. 2. There is left lower lobe collapse/atelectasis that is new since the prior CT. Mason Ceja MD PHYSICAL EXAMINATION: GENERAL: No acute distress. Awake alert and oriented. HEAD, EYES, EARS, NOSE, THROAT: The sclerae are pale. Oropharynx with no visible lesions. Moist mucosa. No thrush. NECK: The neck is supple without adenopathy. LUNGS: Bibasilar rhonchi. HEART: Irregular rate and rhythm. No murmurs, rubs or gallops. ABDOMEN: Bowel sounds diminished. Non tender. Mild distention. Drainage catheter has serous drainage. EXTREMITIES: No clubbing or cyanosis or edema. SKIN: No rash. NEUROLOGIC: Alert and oriented. No gross focal findings. PSYCHIATRIC: Patient calm and cooperative. IMPRESSION: 1. Pancreatic abscess. Status post drainage and pancreatic necrosectomy. Wound culture has E. coli R to Levaquin. Also Lou. 2. Leukocytosis. WBC lower. 3. Penicillin allergy. RECOMMENDATIONS: 1. Continue Flagyl. 2. Continue Fluconazole. 3. Continue Ertapenem - E coli resistant and allergy to Penicillin. 4. Monitor white blood cell count. 5. Monitor clinical response. Maxime Hernandez MD Sep 26, 2016 12:51
--- NOTE | 2016-09-26 13:18 | HHI.PR ---
Subjective Remarks Follow-up on chronic abscess. 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 No new complaints. Tolerating sips. 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 RN Objective Vitals Vital Signs Date Time Temp Pulse Resp B/P Pulse Ox O2 Delivery O2 Flow Rate FiO2 09/26/16 12:00 96.9 88 17 161/80 99 156/80 09/26/16 08:45 99 Room Air 2.00 09/26/16 08:30 98 Nasal Cannula 2.00 09/26/16 08:00 99.4 94 16 158/79 99 09/26/16 05:12 18 09/26/16 04:00 98.9 94 19 150/75 97 09/26/16 00:00 99.4 92 18 154/75 95 09/25/16 21:15 99 Nasal Cannula 2.00 09/25/16 20:56 20 09/25/16 20:55 Nasal Cannula 2.00 09/25/16 20:00 99.4 98 17 142/89 95 09/25/16 16:00 98.4 86 17 158/86 99 09/25/16 14:00 20 I/O 09/25/16 09/25/16 09/25/16 09/26/16 09/26/16 09/26/16 07:00 15:00 23:00 07:00 15:00 23:00 Intake Total 1261 ml 1788 ml 799 ml 1113 ml Output Total 605 ml 630 ml 640 ml 655 ml Balance 656 ml 1158 ml 159 ml 458 ml Intake Oral 0 ml 0 ml 0 ml 0 ml IV Total 597 ml 787 ml 262 ml 471 ml TPN/PPN 590 ml 893 ml 480 ml 575 ml Lipid 74 ml 108 ml 57 ml 67 ml Output Urine Total 500 ml 625 ml 540 ml 500 ml Gastric Drainage Total 100 ml 0 ml 100 ml 150 ml Drainage Total 5 ml 5 ml 0 ml 5 ml # Voids 1 # Bowel Movements 2 0 0 Result Diagram: 09/26/16 0510 09/26/16 0020 Imaging Last Impressions Abdomen/Pelvis CT 09/24/16 0000 Signed Impressions: Service Date/Time: Saturday, September 24, 2016 06:57 - CONCLUSION: 1. The peripancreatic fluid collections adjacent to the tail the pancreas and pancreatic head have decreased in size, as above. Similar to prior examination , the collection adjacent to the pancreatic head contains air and thick fluid like material. 2. There is left lower lobe collapse/atelectasis that is new since the prior CT. Mason Ceja MD Chest X-Ray 09/23/16 0000 Signed Impressions: Service Date/Time: Friday, September 23, 2016 11:09 - CONCLUSION: Increasing consolidative changes left base. Kermit Rollins MD FACR Objective Remarks GENERAL: This is a very thin, well-developed in no distress. NGT in place SKIN: No rashes, warm and dry HEAD: Atraumatic. Normocephalic. EYES: Pupils equal round and reactive. Extraocular motions intact. No scleral icterus. ENT: Nose without bleeding, or drainage, Airway patent. NECK: Trachea midline. Supple CARDIOVASCULAR: Regular rate and rhythm without murmurs, gallops, or rubs. RESPIRATORY: Fair air entry bilaterally. No wheezes, rales, or rhonchi. GASTROINTESTINAL: Abdominal binder observed, Abdomen soft but diffusely tender, mildly distended. + bowel sounds. EDER drain with serosanguineous fluid. MUSCULOSKELETAL: Extremities without clubbing, cyanosis, or edema. Pedal pulses appreciated NEUROLOGICAL: Awake and alert. Moves all extremity. Normal speech. Chronic left facial droop and right upper extremity weakness Procedures Right IJ central line sp Exploratory laparotomy, irrigation and debridement of peripancreatic abscess and necrosectomy Line: Central Venous Catheter Side: Right Location: Internal, Jugular A/P Problem List: (1) Pancreatic abscess ICD Code: K85.90 Status: Acute (2) Hypercalcemia ICD Code: E83.52 Status: Resolved (3) Leukocytosis ICD Code: D72.829 Status: Acute (4) Alcohol abuse ICD Code: F10.10 Status: Chronic (5) COPD (chronic obstructive pulmonary disease) ICD Code: J44.9 Status: Chronic (6) DM (diabetes mellitus) ICD Code: E11.9 Status: Chronic Assessment and Plan 1. Pancreatic Abscess: c/o acute onset abdominal pain x4 days, recent "pancreas surgery" at by Dr. Mathias approx 2wks ago for pseudocyst. 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 Patient is sp exploratory laparotomy, irrigation and drainage of pancreatic abscess. Management as per general surgery. 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 Continue IV antibiotics see below. Follow-up upper GI series shows suspected gastric perforation at the distal inferior stomach. We will discuss with general surgery 2. Hypercalcemia: Improving. IVF for hydration. 3. Leukocytosis: Improving. Continue IV vancomycin, Flagyl, Invanz, azithromycin and Diflucan. Rpt A/P CT noted may need repeat exploration. Out of bed and incentive spirometry 4. Alcohol Abuse: reports h/o alcohol abuse, however states he quit. Continue to monitor for possible withdrawal. Resume Folic Acid, Thiamine 5. COPD: Chronic Respiratory Failure. Stable. Resume home MDI/Neb. continue O2 to keep o2 sat more than 92%. 6. DM: Sliding scale w/ Accu-Cheks. Hold Metformin. Will continue insulin Levemir and regular in the TPN. 7. HTN: Improving continue clonidine patch to TTS 3. 8. Hypophosphatemia: Likely poor nutritional status. Replace. Monitor phosphorus. 9. Hypokalemia: Likely due to poor nutritional status. Replace Iv and monitor BMP. 10. DVT Prophylaxis: SCD/Teds and Lovenox. Discharge Planning Not ready for discharge Ac Liu MD Sep 26, 2016 13:18
[2016-09-26] MEDS: AZITHROMYCIN INJ 500 MG in SODIUM CHLOR 0.9% 250 ML INJ 250 ML IV SCH (14:06)
--- NOTE | 2016-09-26 15:48 | HHI.PR ---
Subjective Subjective Notes Resting in bed Family visiting Wants NGT out Objective Vitals/I&O Vital Signs Date Time Temp Pulse Resp B/P Pulse Ox O2 Delivery O2 Flow Rate FiO2 09/26/16 14:00 18 09/26/16 12:00 96.9 88 161/80 99 156/80 09/26/16 08:45 Room Air 2.00 09/24/16 08:30 21 Labs Laboratory Tests Test 09/26/16 09/26/16 00:20 05:10 Sodium Level 147 Potassium Level 3.5 Chloride Level 114 Carbon Dioxide Level 25.3 Anion Gap 8 Blood Urea Nitrogen 17 Creatinine 0.60 Estimat Glomerular Filtration 163 Rate Random Glucose 135 Calcium Level 9.1 Phosphorus Level 2.8 Magnesium Level 1.9 Vancomycin Level Trough 10.3 White Blood Count 25.0 Red Blood Count 3.31 Hemoglobin 7.7 Hematocrit 24.7 Mean Corpuscular Volume 74.6 Mean Corpuscular Hemoglobin 23.3 Mean Corpuscular Hemoglobin 31.3 Concent Red Cell Distribution Width 16.6 Platelet Count 253 Mean Platelet Volume 10.3 Neutrophils (%) (Auto) 73.7 Lymphocytes (%) (Auto) 9.5 Monocytes (%) (Auto) 12.9 Eosinophils (%) (Auto) 3.6 Basophils (%) (Auto) 0.3 Neutrophils # (Auto) 18.4 Lymphocytes # (Auto) 2.4 Monocytes # (Auto) 3.2 Eosinophils # (Auto) 0.9 Basophils # (Auto) 0.1 CBC Comment AUTO DIFF Differential Total Cells 100 Counted Neutrophils % (Manual) 83 Lymphocytes % 5 Monocytes % 11 Eosinophils % 1 Neutrophils # (Manual) 20.8 Differential Comment FINAL DIFF MANUAL Platelet Estimate NORMAL Platelet Morphology Comment NORMAL Acanthocytes OCC Date/Time Procedure Status Source Growth 09/23/16 18:30 Legionella Antigen - Final Complete Urine Random Urine PRESUMPTIVE NEGATIVE FOR LEGIONELLA P... 09/23/16 18:30 Streptococcus pneumoniae Antigen (M - Final Complete Urine Random Urine PRESUMPTIVE NEGATIVE FOR STREPTOCOCCU... 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 Bowman UGI shows leak in stomach, contained Will keep on TPN and keep NG in for now The exam, history, and the medical decision-making described in the above note were completed with the assistance of the mid-level provider. I reviewed and agree with the findings presented. I attest that I had a [id number] encounter with the patient on the same day, and personally performed and documented my assessment and findings in the medical record. Sabine Montague Sep 26, 2016 15:48 Devyn Bowman MD Sep 27, 2016 12:37
[2016-09-26] MEDS: SODIUM CHLORIDE 0.9% IV SCH (17:29)
[2016-09-26] MEDS: ERTAPENEM IV SCH (17:29)
[2016-09-26] MEDS: FAT EMULSION 20% INJ 250 ML (@10 mls/hr) IV-CENTRAL SCH (20:31)
[2016-09-26] MEDS: POTASSIUM CHLORIDE IV-CENTRAL SCH ×10 (20:35)
[2016-09-26] MEDS: SODIUM ACETATE IV-CENTRAL SCH ×10 (20:35)
[2016-09-26] MEDS: [UNRECOGNIZED DRUG - OTHER] IV-CENTRAL SCH ×10 (20:35)
[2016-09-26] MEDS: ENOXAPARIN SODIUM 40 MG/0.4 ML SYRINGE SQ SCH (20:39)
[2016-09-26] MEDS: FLUCONAZOLE 200 MG PREMIX BAG 100 ML IV SCH (22:32)
[2016-09-27] VITALS (10 sets, daily range): BP systolic 156–177; BP diastolic 77–87; PULSE 85–97; RESP 16–20; TEMP 96.7–100.1; O2SAT 95–100
[2016-09-27] MEDS: VANCOMYCIN INJ 1,500 MG in SODIUM CHLORID 0.9% 500 ML INJ 500 ML IV SCH ×2 (00:13→13:21)
[2016-09-27] MEDS: metroNIDAZOLE 500 MG INJ 100 ML IV SCH ×4 (02:02→20:52)
[2016-09-27] MEDS: RESP: ALBUTEROL 2.5 MG/3 ML NEB (PRN) NEB (03:09)
[2016-09-27] MEDS: PCA - TOTAL MG MORPHINE DELIVERED PER SHIFT SCH ×3 (06:00→21:05)
[2016-09-27] MEDS: INSULIN ASPART SUPPLEMENTAL SCALE SQ SCH ×4 (06:00→17:51)
[2016-09-27 06:27] LABS: AUTOMATED NEUTROPHIL # 15.4 TH/MM3 (1.8-7.7); BASOPHIL # 0.1 TH/MM3 (0-0.2); BASOPHIL % 0.3 % (0.0-2.0); EOSINOPHIL # 0.9 TH/MM3 (0-0.4); EOSINOPHIL % 4.3 % (0.0-4.0); HEMATOCRIT 25.6 % (39.0-51.0); LYMPH % 11.9 % (9.0-44.0); LYMPHOCYTE # 2.5 TH/MM3 (1.0-4.8); MEAN CELL VOLUME 74.4 FL (80.0-100.0); MEAN CORPUSCULAR HEMOGLOBIN 23.2 PG (27.0-34.0); MEAN CORPUSCULAR HGB CONC 31.2 % (32.0-36.0); MONO % 11.3 % (0.0-8.0); NEUT % 72.2 % (16.0-70.0); PLATELET COUNT 295 TH/MM3 (150-450); RED BLOOD COUNT 3.44 MIL/MM3 (4.50-5.90); RED CELL DISTRIBUTION WIDTH 16.7 % (11.6-17.2); WHITE BLOOD COUNT 21.3 TH/MM3 (4.0-11.0)
[2016-09-27 06:31] LABS: HEMO FLAGS AUTO DIFF
[2016-09-27 06:55] LABS: POTASSIUM 3.7 MEQ/L (3.5-5.1)
[2016-09-27 08:50] LABS: ACANTHOCYTES 1+ (NORMAL); KERATOCYTES OCC (NORMAL); SCAN/DIFF AUTO DIFF CONFIRMED
[2016-09-27 08:51] LABS: TARGET CELLS 1+ (NORMAL)
[2016-09-27] MEDS: BUDESONIDE-FORMOTEROL 160/4.5 MCG INHALER INH SCH ×2 (09:00→20:53)
[2016-09-27] MEDS: INSULIN DETEMIR 100 UNITS/ML VIAL SQ SCH ×2 (09:23→21:00)
[2016-09-27] MEDS: SODIUM CHLORIDE 0.9% FLUSH 10 ML FLUSH IV FLUSH SCH ×2 (09:24→20:52)
--- NOTE | 2016-09-27 09:27 | HHI.PR ---
Subjective Remarks Follow-up pancreatic abscess. 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 He is stooling. Tolerating sips. Getting out of bed with assistance. 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 RN Objective Vitals Vital Signs Date Time Temp Pulse Resp B/P Pulse Ox O2 Delivery O2 Flow Rate FiO2 09/27/16 08:55 177/86 09/27/16 08:00 100.1 88 16 157/79 100 09/27/16 06:00 18 09/27/16 04:00 98.1 87 18 159/79 95 09/27/16 03:12 100 Nasal Cannula 2.00 09/27/16 00:00 97.0 97 18 163/82 98 09/26/16 22:00 18 09/26/16 20:00 Nasal Cannula 2.00 09/26/16 20:00 98.9 81 19 164/83 95 09/26/16 16:00 98.8 93 16 161/83 100 09/26/16 14:00 18 09/26/16 12:00 96.9 88 17 161/80 99 156/80 I/O 09/26/16 09/26/16 09/26/16 09/27/16 09/27/16 09/27/16 07:00 15:00 23:00 07:00 15:00 23:00 Intake Total 1113 ml 1571 ml 514 ml 2079 ml Output Total 655 ml 510 ml 250 ml 901 ml Balance 458 ml 1061 ml 264 ml 1178 ml Intake Oral 0 ml 0 ml 0 ml 0 ml IV Total 471 ml 657 ml 514 ml 1286 ml TPN/PPN 575 ml 816 ml 704 ml Lipid 67 ml 98 ml 89 ml Output Urine Total 500 ml 400 ml 100 ml 300 ml Gastric Drainage Total 150 ml 100 ml 150 ml 600 ml Drainage Total 5 ml 10 ml 1 ml # Voids 1 1 2 2 # Bowel Movements 0 1 1 1 Result Diagram: 09/27/16 0520 09/27/16 0520 Imaging Last Impressions Upper GI Series 09/26/16 0600 Signed Impressions: Service Date/Time: Monday, September 26, 2016 08:53 - CONCLUSION: Suspected gastric perforation at the inferior distal aspect of the stomach with a collection seen inferior to the distal stomach and anterior to the duodenum. Mason Monge MD Abdomen/Pelvis CT 09/24/16 0000 Signed Impressions: Service Date/Time: Saturday, September 24, 2016 06:57 - CONCLUSION: 1. The peripancreatic fluid collections adjacent to the tail the pancreas and pancreatic head have decreased in size, as above. Similar to prior examination , the collection adjacent to the pancreatic head contains air and thick fluid like material. 2. There is left lower lobe collapse/atelectasis that is new since the prior CT. Mason Ceja MD Chest X-Ray 09/23/16 0000 Signed Impressions: Service Date/Time: Friday, September 23, 2016 11:09 - CONCLUSION: Increasing consolidative changes left base. Kermit Rollins MD FACR Objective Remarks GENERAL: This is a very thin, well-developed in no distress. NGT in place SKIN: No rashes, warm and dry HEAD: Atraumatic. Normocephalic. EYES: Pupils equal round and reactive. Extraocular motions intact. No scleral icterus. ENT: Nose without bleeding, or drainage, Airway patent. NECK: Trachea midline. Supple CARDIOVASCULAR: Regular rate and rhythm without murmurs, gallops, or rubs. RESPIRATORY: Fair air entry bilaterally. No wheezes, rales, or rhonchi. GASTROINTESTINAL: Abdominal binder observed, Abdomen soft, mildly distended. + bowel sounds. EDER drain with serosanguineous fluid. MUSCULOSKELETAL: Extremities without clubbing, cyanosis, or edema. Pedal pulses appreciated NEUROLOGICAL: Awake and alert. Moves all extremity. Normal speech. Chronic left facial droop and right upper extremity weakness Procedures Right IJ central line sp Exploratory laparotomy, irrigation and debridement of peripancreatic abscess and necrosectomy Line: Central Venous Catheter Side: Right Location: Internal, Jugular A/P Problem List: (1) Pancreatic abscess ICD Code: K85.90 Status: Acute (2) Hypercalcemia ICD Code: E83.52 Status: Resolved (3) Leukocytosis ICD Code: D72.829 Status: Acute (4) Alcohol abuse ICD Code: F10.10 Status: Chronic (5) COPD (chronic obstructive pulmonary disease) ICD Code: J44.9 Status: Chronic (6) DM (diabetes mellitus) ICD Code: E11.9 Status: Chronic Assessment and Plan 1. Pancreatic Abscess: c/o acute onset abdominal pain x4 days, recent "pancreas surgery" at by Dr. Mathias approx 2wks ago for pseudocyst. 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 Patient is sp exploratory laparotomy, irrigation and drainage of pancreatic abscess. Management as per general surgery. 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 Continue IV antibiotics see below. Follow-up upper GI series shows suspected gastric perforation at the distal inferior stomach. Per general surgery, continue ice chips and TPN 2. Hypercalcemia: Improving. IVF for hydration. 3. Leukocytosis: Improving. Continue IV vancomycin, Flagyl, Invanz, azithromycin and Diflucan. Out of bed and incentive spirometry 4. Alcohol Abuse: reports h/o alcohol abuse, however states he quit. Continue to monitor for possible withdrawal. Resume Folic Acid, Thiamine 5. COPD: Chronic Respiratory Failure. Stable. Resume home MDI/Neb. continue O2 to keep o2 sat more than 92%. 6. DM: Sliding scale w/ Accu-Cheks. Hold Metformin. Will continue insulin Levemir and regular in the TPN. 7. HTN: Improving continue clonidine patch to TTS 3. 8. Hypophosphatemia: Likely poor nutritional status. Replace. Monitor phosphorus. 9. Hypokalemia: Likely due to poor nutritional status. Replace Iv and monitor BMP. 10. DVT Prophylaxis: SCD/Teds and Lovenox. Discharge Planning Not ready for discharge Ac Liu MD Sep 27, 2016 09:27
--- NOTE | 2016-09-27 13:18 | HHI.PR ---
Subjective Subjective Notes Resting in bed Is going to get up to the chair soon Objective Vitals/I&O Vital Signs Date Time Temp Pulse Resp B/P Pulse Ox O2 Delivery O2 Flow Rate FiO2 09/27/16 12:00 99.4 88 17 172/87 100 09/27/16 08:45 2.00 09/27/16 08:30 Nasal Cannula 09/24/16 08:30 21 Labs Laboratory Tests Test 09/27/16 05:20 White Blood Count 21.3 Red Blood Count 3.44 Hemoglobin 8.0 Hematocrit 25.6 Mean Corpuscular Volume 74.4 Mean Corpuscular Hemoglobin 23.2 Mean Corpuscular Hemoglobin 31.2 Concent Red Cell Distribution Width 16.7 Platelet Count 295 Mean Platelet Volume 10.5 Neutrophils (%) (Auto) 72.2 Lymphocytes (%) (Auto) 11.9 Monocytes (%) (Auto) 11.3 Eosinophils (%) (Auto) 4.3 Basophils (%) (Auto) 0.3 Neutrophils # (Auto) 15.4 Lymphocytes # (Auto) 2.5 Monocytes # (Auto) 2.4 Eosinophils # (Auto) 0.9 Basophils # (Auto) 0.1 CBC Comment AUTO DIFF Differential Comment AUTO DIFF CONFIRMED Target Cells 1+ Acanthocytes 1+ Keratocytes OCC Sodium Level 150 Potassium Level 3.7 Chloride Level 116 Carbon Dioxide Level 25.0 Anion Gap 9 Blood Urea Nitrogen 15 Creatinine 0.57 Estimat Glomerular Filtration 173 Rate Random Glucose 138 Calcium Level 8.8 Phosphorus Level 3.0 Magnesium Level 2.0 Date/Time Procedure Status Source Growth 09/23/16 18:30 Legionella Antigen - Final Complete Urine Random Urine PRESUMPTIVE NEGATIVE FOR LEGIONELLA P... 09/23/16 18:30 Streptococcus pneumoniae Antigen (M - Final Complete Urine Random Urine PRESUMPTIVE NEGATIVE FOR STREPTOCOCCU... 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
[2016-09-27] MEDS: AZITHROMYCIN INJ 500 MG in SODIUM CHLOR 0.9% 250 ML INJ 250 ML IV SCH (13:21)
[2016-09-27] MEDS: SODIUM CHLORIDE 0.9% IV SCH (17:50)
[2016-09-27] MEDS: ERTAPENEM IV SCH (17:50)
[2016-09-27] MEDS: ENOXAPARIN SODIUM 40 MG/0.4 ML SYRINGE SQ SCH (20:52)
[2016-09-27] MEDS: [UNRECOGNIZED DRUG - OTHER] IV-CENTRAL SCH ×9 (21:03)
[2016-09-27] MEDS: POTASSIUM PHOSPHATE IV-CENTRAL SCH ×9 (21:03)
[2016-09-27] MEDS: POTASSIUM ACETATE IV-CENTRAL SCH ×9 (21:03)
[2016-09-27] MEDS: FAT EMULSION 20% INJ 250 ML (@10 mls/hr) IV-CENTRAL SCH (21:21)
[2016-09-27] MEDS: FLUCONAZOLE 200 MG PREMIX BAG 100 ML IV SCH (21:21)
[2016-09-27] MEDS ORDERED: PHARMACY ORDERED LAB ONE (23:45)
[2016-09-28] VITALS: BP 142/80; PULSE 76; RESP 20; TEMP 97.4; O2SAT 98
[2016-09-28] MEDS: metroNIDAZOLE 500 MG INJ 100 ML IV SCH ×4 (02:26→20:14)
[2016-09-28] MEDS: INSULIN ASPART SUPPLEMENTAL SCALE SQ SCH ×5 (05:28→23:49)
[2016-09-28] MEDS: PCA - TOTAL MG MORPHINE DELIVERED PER SHIFT SCH ×3 (05:28→20:17)
[2016-09-28] MEDS: MORPHINE SULFATE 30 MG/30 ML PCA IV SCH (05:57)
[2016-09-28 06:29] LABS: AUTOMATED NEUTROPHIL # 16.7 TH/MM3 (1.8-7.7); BASOPHIL # 0.1 TH/MM3 (0-0.2); BASOPHIL % 0.4 % (0.0-2.0); EOSINOPHIL # 0.6 TH/MM3 (0-0.4); EOSINOPHIL % 2.7 % (0.0-4.0); HEMATOCRIT 25.4 % (39.0-51.0); HEMO FLAGS AUTO DIFF; LYMPH % 12.5 % (9.0-44.0); LYMPHOCYTE # 2.9 TH/MM3 (1.0-4.8); MEAN CELL VOLUME 73.9 FL (80.0-100.0); MEAN CORPUSCULAR HEMOGLOBIN 23.1 PG (27.0-34.0); MEAN CORPUSCULAR HGB CONC 31.3 % (32.0-36.0); MONO % 11.7 % (0.0-8.0); NEUT % 72.7 % (16.0-70.0); PLATELET COUNT 316 TH/MM3 (150-450); RED BLOOD COUNT 3.43 MIL/MM3 (4.50-5.90); RED CELL DISTRIBUTION WIDTH 16.2 % (11.6-17.2)
[2016-09-28 06:55] LABS: BICARBONATE 26.3 MEQ/L (21.0-32.0); MAGNESIUM 1.9 MG/DL (1.5-2.5); POTASSIUM 3.8 MEQ/L (3.5-5.1)
[2016-09-28 08:00] VITALS: BP 149/83; PULSE 87; RESP 17; TEMP 99; O2SAT 98
[2016-09-28] MEDS: BUDESONIDE-FORMOTEROL 160/4.5 MCG INHALER INH SCH ×2 (09:00→20:18)
--- NOTE | 2016-09-28 09:43 | HHI.PR ---
Subjective Remarks Follow-up leukocytosis. Patient feels okay decreasing pain scale of 5 out of 10 controlled with POKER MACHINE ATTENDANT. Tmax 99 Objective Vitals Vital Signs Date Time Temp Pulse Resp B/P Pulse Ox O2 Delivery O2 Flow Rate FiO2 09/28/16 08:30 2.00 09/28/16 08:00 99.0 87 17 149/83 98 09/28/16 05:57 20 09/28/16 05:28 20 09/28/16 00:00 97.4 76 20 142/80 98 09/27/16 21:05 20 09/27/16 20:50 Room Air 09/27/16 20:00 97.8 88 20 158/83 98 09/27/16 19:50 99 Nasal Cannula 1.00 09/27/16 16:00 96.7 85 16 156/77 99 09/27/16 14:00 16 09/27/16 12:00 99.4 88 17 172/87 100 I/O 09/27/16 09/27/16 09/27/16 09/28/16 09/28/16 09/28/16 07:00 15:00 23:00 07:00 15:00 23:00 Intake Total 2079 ml 824 ml 240 ml 2380 ml Output Total 901 ml 1351 ml 200 ml 1005 ml Balance 1178 ml -527 ml 240 ml 2180 ml -1005 ml Intake Oral 0 ml 0 ml 240 ml 240 ml IV Total 1286 ml 80 ml 2140 ml TPN/PPN 704 ml 664 ml Lipid 89 ml 80 ml Output Urine Total 300 ml 350 ml 200 ml Gastric Drainage Total 600 ml 1000 ml 1000 ml Drainage Total 1 ml 1 ml 5 ml # Voids 2 1 2 # Bowel Movements 1 0 2 Result Diagram: 09/28/16 0540 09/28/16 0540 Objective Remarks GENERAL: This is a very thin, well-developed in no distress. NGT in place SKIN: No rashes, warm and dry HEAD: Atraumatic. Normocephalic. EYES: Pupils equal round and reactive. Extraocular motions intact. No scleral icterus. ENT: Nose without bleeding, or drainage, Airway patent. NECK: Trachea midline. Supple CARDIOVASCULAR: Regular rate and rhythm without murmurs, gallops, or rubs. RESPIRATORY: Fair air entry bilaterally. No wheezes, rales, or rhonchi. GASTROINTESTINAL: Abdominal binder observed, Abdomen soft, mildly distended. + bowel sounds. EDER drain with serosanguineous fluid. MUSCULOSKELETAL: Extremities without clubbing, cyanosis, or edema. Pedal pulses appreciated NEUROLOGICAL: Awake and alert. Moves all extremity. Normal speech. Chronic left facial droop and right upper extremity weakness Procedures Right IJ central line sp Exploratory laparotomy, irrigation and debridement of peripancreatic abscess and necrosectomy A/P Problem List: (1) Pancreatic abscess ICD Code: K85.90 Status: Acute (2) Hypercalcemia ICD Code: E83.52 Status: Resolved (3) Leukocytosis ICD Code: D72.829 Status: Acute (4) Alcohol abuse ICD Code: F10.10 Status: Chronic (5) COPD (chronic obstructive pulmonary disease) ICD Code: J44.9 Status: Chronic (6) DM (diabetes mellitus) ICD Code: E11.9 Status: Chronic Assessment and Plan 1. Pancreatic Abscess: c/o acute onset abdominal pain x4 days, recent "pancreas surgery" at by Dr. Mathias approx 2wks ago for pseudocyst. 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 Patient is sp exploratory laparotomy, irrigation and drainage of pancreatic abscess. Management as per general surgery. 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 Continue IV antibiotics see below. Follow-up upper GI series shows suspected gastric perforation at the distal inferior stomach. Per general surgery, continue ice chips and TPN. For repeat upper GI series per general surgery 2. Hypercalcemia: Improving. IVF for hydration. 3. Leukocytosis: Improving. Continue IV vancomycin, Flagyl, Invanz, azithromycin and Diflucan. Out of bed and incentive spirometry 4. Alcohol Abuse: reports h/o alcohol abuse, however states he quit. Continue to monitor for possible withdrawal. Resume Folic Acid, Thiamine 5. COPD: Chronic Respiratory Failure. Stable. Resume home MDI/Neb. continue O2 to keep o2 sat more than 92%. 6. DM: Sliding scale w/ Accu-Cheks. Hold Metformin. Will continue insulin Levemir and regular in the TPN. 7. HTN: Improving continue clonidine patch to TTS 3. 8. Hypophosphatemia: Likely poor nutritional status. Replace. Monitor phosphorus. 9. Hypokalemia: Likely due to poor nutritional status. Replace Iv and monitor BMP. 10. DVT Prophylaxis: SCD/Teds and Lovenox. Discharge Planning Not ready for discharge Ac Liu MD Sep 28, 2016 09:43 Ac Liu MD Sep 28, 2016 09:43
[2016-09-28 09:53] LABS: ACANTHOCYTES OCC (NORMAL); OVALOCYTES 1+ (NORMAL); SCAN/DIFF AUTO DIFF CONFIRMED; TARGET CELLS 1+ (NORMAL)
[2016-09-28] MEDS: SODIUM CHLORIDE 0.9% FLUSH 10 ML FLUSH IV FLUSH SCH ×2 (09:58→20:17)
[2016-09-28] MEDS: INSULIN DETEMIR 100 UNITS/ML VIAL SQ SCH ×2 (09:58→20:16)
[2016-09-28 12:00] VITALS: BP 159/87; PULSE 84; RESP 16; TEMP 97.6; O2SAT 99
[2016-09-28] MEDS: VANCOMYCIN INJ 1,500 MG in SODIUM CHLORID 0.9% 500 ML INJ 500 ML IV SCH ×4 (12:00→23:49)
--- NOTE | 2016-09-28 12:54 | HHI.PR ---
Subjective Subjective Notes Resting in bed He got up to the side of the bed with PT today Objective Vitals/I&O Vital Signs Date Time Temp Pulse Resp B/P Pulse Ox O2 Delivery O2 Flow Rate FiO2 09/28/16 08:30 2.00 09/28/16 08:00 99.0 87 17 149/83 98 09/27/16 20:50 Room Air 09/24/16 08:30 21 Labs Laboratory Tests Test 09/28/16 09/28/16 00:00 05:40 Vancomycin Level Trough 15.3 White Blood Count 23.0 Red Blood Count 3.43 Hemoglobin 7.9 Hematocrit 25.4 Mean Corpuscular Volume 73.9 Mean Corpuscular Hemoglobin 23.1 Mean Corpuscular Hemoglobin 31.3 Concent Red Cell Distribution Width 16.2 Platelet Count 316 Mean Platelet Volume 10.6 Neutrophils (%) (Auto) 72.7 Lymphocytes (%) (Auto) 12.5 Monocytes (%) (Auto) 11.7 Eosinophils (%) (Auto) 2.7 Basophils (%) (Auto) 0.4 Neutrophils # (Auto) 16.7 Lymphocytes # (Auto) 2.9 Monocytes # (Auto) 2.7 Eosinophils # (Auto) 0.6 Basophils # (Auto) 0.1 CBC Comment AUTO DIFF Differential Comment AUTO DIFF CONFIRMED Target Cells 1+ Ovalocytes 1+ Acanthocytes OCC Sodium Level 150 Potassium Level 3.8 Chloride Level 116 Carbon Dioxide Level 26.3 Anion Gap 8 Blood Urea Nitrogen 16 Creatinine 0.61 Estimat Glomerular Filtration 160 Rate Random Glucose 111 Calcium Level 8.7 Phosphorus Level 3.0 Magnesium Level 1.9 Date/Time Procedure Status Source Growth 09/23/16 18:30 Legionella Antigen - Final Complete Urine Random Urine PRESUMPTIVE NEGATIVE FOR LEGIONELLA P... 09/23/16 18:30 Streptococcus pneumoniae Antigen (M - Final Complete Urine Random Urine PRESUMPTIVE NEGATIVE FOR STREPTOCOCCU... Cardiovascular: Regular Lungs: Clear Abdomen: Other (incision c/d/i; EDER with minimal output---SS ) Extremities: No edema Narrative Exam Central line with PICC in place NGT in place to LIWS EDER with SS drainage A/P Assessment and Plan 66 year old male with pancreatic abscess POD8 I&D pancreatis abscess with pancreatic necrosectomy -NPO; okay for a few ice chips -Keep NGT to LIWS -Upper GI reviewed; will discuss with Dr. 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 Bowman No changes Still has a small leak in stomach anteriorly Keep NPO and on TPN this week Recheck UGI next week and pull NG if improved The exam, history, and the medical decision-making described in the above note were completed with the assistance of the mid-level provider. I reviewed and agree with the findings presented. I attest that I had a [id number] encounter with the patient on the same day, and personally performed and documented my assessment and findings in the medical record. Sabine Montague Sep 28, 2016 12:54 Devyn Bowman MD Sep 29, 2016 19:25
--- NOTE | 2016-09-28 14:12 | HHI.IDPN ---
Note Infectious Disease Note Patient feels weak. No nausea. No chills. No SOB. On TPN and has NG tube. Taking little bits of clear liquids. WBC remain elevated. Presented to [facility] on September 16 with abdominal pain and also nausea and vomiting. Post irrigation and debridement of pancreatic abscess which was a large abscess and also pancreatic necrosectomy. 2nd surgery for same. PAST MEDICAL HISTORY: 1. Hepatitis C. 2. COPD. 3. Diabetes mellitus. 4. Alcohol abuse. 5. Congestive heart failure. 6. COPD. 7. History of appendectomy. 8. Patient underwent pancreatic necrosectomy on August 26, 2016. ALLERGIES: PENICILLIN. MEDICATIONS: 1. Ertapenem. 2. Fluconazole. 3. Metronidazole. 4. Vancomycin. SOCIAL HISTORY: The patient smoked two packs of cigarettes a day up until June of 2016. Alcohol use up until April of 2016. No illicit drugs. OBJECTIVE: Vital Signs Date Time Temp Pulse Resp B/P Pulse Ox O2 Delivery O2 Flow Rate FiO2 09/28/16 12:00 97.6 84 16 159/87 99 09/28/16 08:30 2.00 09/28/16 08:00 99.0 87 17 149/83 98 09/28/16 05:57 20 09/28/16 05:28 20 09/28/16 00:00 97.4 76 20 142/80 98 09/27/16 21:05 20 09/27/16 20:50 Room Air 09/27/16 20:00 97.8 88 20 158/83 98 09/27/16 19:50 99 Nasal Cannula 1.00 09/27/16 16:00 96.7 85 16 156/77 99 09/27/16 09/27/16 09/28/16 15:00 23:00 07:00 Intake Total 824 ml 240 ml 2380 ml Output Total 1351 ml 200 ml Balance -527 ml 240 ml 2180 ml Intake Oral 0 ml 240 ml 240 ml IV Total 80 ml 2140 ml TPN/PPN 664 ml Lipid 80 ml Output Urine Total 350 ml 200 ml Gastric Drainage Total 1000 ml Drainage Total 1 ml # Voids 1 2 # Bowel Movements 0 2 Laboratory Tests Test 09/27/16 09/28/16 05:20 05:40 White Blood Count 21.3 TH/MM3 23.0 TH/MM3 Red Blood Count 3.44 MIL/MM3 3.43 MIL/MM3 Hemoglobin 8.0 GM/DL 7.9 GM/DL Hematocrit 25.6 % 25.4 % Mean Corpuscular Volume 74.4 FL 73.9 FL Mean Corpuscular Hemoglobin 23.2 PG 23.1 PG Mean Corpuscular Hemoglobin 31.2 % 31.3 % Concent Red Cell Distribution Width 16.7 % 16.2 % Platelet Count 295 TH/MM3 316 TH/MM3 Mean Platelet Volume 10.5 FL 10.6 FL Neutrophils (%) (Auto) 72.2 % 72.7 % Lymphocytes (%) (Auto) 11.9 % 12.5 % Monocytes (%) (Auto) 11.3 % 11.7 % Eosinophils (%) (Auto) 4.3 % 2.7 % Basophils (%) (Auto) 0.3 % 0.4 % Neutrophils # (Auto) 15.4 TH/MM3 16.7 TH/MM3 Lymphocytes # (Auto) 2.5 TH/MM3 2.9 TH/MM3 Monocytes # (Auto) 2.4 TH/MM3 2.7 TH/MM3 Eosinophils # (Auto) 0.9 TH/MM3 0.6 TH/MM3 Basophils # (Auto) 0.1 TH/MM3 0.1 TH/MM3 CBC Comment AUTO DIFF AUTO DIFF Differential Comment AUTO DIFF AUTO DIFF CONFIRMED CONFIRMED Target Cells 1+ 1+ Acanthocytes 1+ OCC Keratocytes OCC Ovalocytes 1+ Laboratory Tests Test 09/27/16 09/28/16 05:20 05:40 Sodium Level 150 MEQ/L 150 MEQ/L Potassium Level 3.7 MEQ/L 3.8 MEQ/L Chloride Level 116 MEQ/L 116 MEQ/L Carbon Dioxide Level 25.0 MEQ/L 26.3 MEQ/L Anion Gap 9 MEQ/L 8 MEQ/L Blood Urea Nitrogen 15 MG/DL 16 MG/DL Creatinine 0.57 MG/DL 0.61 MG/DL Estimat Glomerular Filtration 173 ML/MIN 160 ML/MIN Rate Random Glucose 138 MG/DL 111 MG/DL Calcium Level 8.8 MG/DL 8.7 MG/DL Phosphorus Level 3.0 MG/DL 3.0 MG/DL Magnesium Level 2.0 MG/DL 1.9 MG/DL IMAGING: Abdomen/Pelvis CT 09/24/16 0000 Signed Impressions: Service Date/Time: Saturday, September 24, 2016 06:57 - CONCLUSION: 1. The peripancreatic fluid collections adjacent to the tail the pancreas and pancreatic head have decreased in size, as above. Similar to prior examination , the collection adjacent to the pancreatic head contains air and thick fluid like material. 2. There is left lower lobe collapse/atelectasis that is new since the prior CT. Mason Ceja MD PHYSICAL EXAMINATION: GENERAL: No acute distress. Awake alert and oriented. HEENT: The sclerae are pale. Oropharynx with no visible lesions. Moist mucosa. No thrush. NECK: The neck is supple without adenopathy. LUNGS: Bibasilar rhonchi. HEART: Irregular rate and rhythm. No murmurs, rubs or gallops. ABDOMEN: Bowel sounds diminished. Non tender. Drainage catheter has serous drainage. EXTREMITIES: No clubbing or cyanosis or edema. SKIN: No rash. NEUROLOGIC: Alert and oriented. No gross focal findings. PSYCHIATRIC: Patient calm and cooperative. IMPRESSION: 1. Pancreatic abscess. Status post drainage and pancreatic necrosectomy. Wound culture has E. coli R to Levaquin. Also Lou. 2. Leukocytosis. WBC slow to decrease. 3. Penicillin allergy. RECOMMENDATIONS: 1. Continue Flagyl. 2. Continue Fluconazole. 3. Continue Ertapenem - E coli resistant and allergy to Penicillin. 4. Continue Vancomycin for now. WBC slow to decrease. Potential enterococcus. 5. Monitor temp and white blood cell count. Maxime Hernandez MD Sep 28, 2016 14:12
[2016-09-28] MEDS: SODIUM CHLORIDE 0.9% IV SCH (14:52)
[2016-09-28] MEDS: ERTAPENEM IV SCH (14:52)
[2016-09-28] MEDS: AZITHROMYCIN INJ 500 MG in SODIUM CHLOR 0.9% 250 ML INJ 250 ML IV SCH (14:52)
[2016-09-28 16:00] VITALS: BP 156/81; PULSE 89; RESP 18; TEMP 97.8; O2SAT 99
[2016-09-28] MEDS ORDERED: BENZOCAINE 6 MG/MENTHOL 10 MG LOZENGE BUCCAL PRN (16:00)
[2016-09-28 18:05] VITALS: O2SAT 99
[2016-09-28 20:00] VITALS: BP 139/77; PULSE 96; RESP 17; TEMP 98.4; O2SAT 100
[2016-09-28] MEDS: FLUCONAZOLE 200 MG PREMIX BAG 100 ML IV SCH (20:14)
[2016-09-28] MEDS: ENOXAPARIN SODIUM 40 MG/0.4 ML SYRINGE SQ SCH (20:15)
[2016-09-28] MEDS: FAT EMULSION 20% INJ 250 ML (@10 mls/hr) IV-CENTRAL SCH (20:15)
[2016-09-28] MEDS: POTASSIUM ACETATE IV-CENTRAL SCH ×9 (20:16)
[2016-09-28] MEDS: POTASSIUM PHOSPHATE IV-CENTRAL SCH ×9 (20:16)
[2016-09-28] MEDS: [UNRECOGNIZED DRUG - OTHER] IV-CENTRAL SCH ×9 (20:16)
[2016-09-28] MEDS: SODIUM CHLORIDE 23.4% INJ 38.5 MEQ in WATER STERILE FOR INJ 1,000 ML IV SCH (22:12)
[2016-09-29] VITALS (7 sets, daily range): BP systolic 127–154; BP diastolic 71–82; PULSE 84–95; RESP 16–17; TEMP 97.4–98.6; O2SAT 99–100
[2016-09-29] MEDS: metroNIDAZOLE 500 MG INJ 100 ML IV SCH ×2 (03:37→10:17)
[2016-09-29] MEDS: PCA - TOTAL MG MORPHINE DELIVERED PER SHIFT SCH ×3 (04:58→22:00)
[2016-09-29] MEDS: INSULIN ASPART SUPPLEMENTAL SCALE SQ SCH ×3 (05:53→17:03)
[2016-09-29 06:34] LABS: BICARBONATE 28.2 MEQ/L (21.0-32.0); POTASSIUM 4.3 MEQ/L (3.5-5.1)
[2016-09-29] MEDS: SODIUM CHLORIDE 0.9% FLUSH 10 ML FLUSH IV FLUSH SCH ×2 (09:00→21:46)
[2016-09-29] MEDS: INSULIN DETEMIR 100 UNITS/ML VIAL SQ SCH ×2 (09:00→21:43)
[2016-09-29] MEDS: BUDESONIDE-FORMOTEROL 160/4.5 MCG INHALER INH SCH ×2 (09:00→21:45)
--- NOTE | 2016-09-29 09:28 | HHI.PR ---
Subjective Remarks Follow-up leukocytosis and pancreatic abscess. 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 Had a bowel movement yesterday. 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 RN Objective Vitals Vital Signs Date Time Temp Pulse Resp B/P Pulse Ox O2 Delivery O2 Flow Rate FiO2 09/29/16 08:00 98.6 86 16 143/76 99 09/29/16 04:58 18 09/29/16 00:00 98.0 92 17 127/71 100 09/28/16 20:17 18 09/28/16 20:00 98.4 96 17 139/77 100 09/28/16 19:35 Room Air 09/28/16 18:05 99 Nasal Cannula 2.00 09/28/16 16:00 97.8 89 18 156/81 99 09/28/16 14:00 14 09/28/16 12:00 97.6 84 16 159/87 99 I/O 09/28/16 09/28/16 09/28/16 09/29/16 09/29/16 09/29/16 07:00 15:00 23:00 07:00 15:00 23:00 Intake Total 2380 ml 1619 ml 240 ml 2069 ml Output Total 200 ml 2030 ml 550 ml 803 ml Balance 2180 ml -411 ml -310 ml 1266 ml Intake Oral 240 ml 0 ml 240 ml 240 ml IV Total 2140 ml 408 ml 1829 ml TPN/PPN 1079 ml Lipid 132 ml Output Urine Total 200 ml 1025 ml 550 ml 400 ml Gastric Drainage Total 1000 ml 400 ml Drainage Total 5 ml 3 ml # Bowel Movements 2 0 1 Result Diagram: 09/28/16 0540 09/29/16 0530 Objective Remarks GENERAL: This is a very thin, well-developed in no distress. NGT in place SKIN: No rashes, warm and dry HEAD: Atraumatic. Normocephalic. EYES: Pupils equal round and reactive. Extraocular motions intact. ENT: Nose without bleeding, or drainage, Airway patent. NECK: Trachea midline. Supple CARDIOVASCULAR: Regular rate and rhythm without murmurs, gallops, or rubs. RESPIRATORY: Fair air entry bilaterally. No wheezes, rales, or rhonchi. GASTROINTESTINAL: Abdominal binder observed, Abdomen soft, mildly distended. + bowel sounds. EDER drain with serosanguineous fluid. MUSCULOSKELETAL: Extremities without clubbing, cyanosis, or edema. Pedal pulses appreciated NEUROLOGICAL: Awake and alert. Moves all extremity. Normal speech. Chronic left facial droop and right upper extremity weakness Procedures Right IJ central line sp Exploratory laparotomy, irrigation and debridement of peripancreatic abscess and necrosectomy A/P Problem List: (1) Pancreatic abscess ICD Code: K85.90 Status: Acute (2) Hypercalcemia ICD Code: E83.52 Status: Resolved (3) Leukocytosis ICD Code: D72.829 Status: Acute (4) Alcohol abuse ICD Code: F10.10 Status: Chronic (5) COPD (chronic obstructive pulmonary disease) ICD Code: J44.9 Status: Chronic (6) DM (diabetes mellitus) ICD Code: E11.9 Status: Chronic Assessment and Plan 1. Pancreatic Abscess: c/o acute onset abdominal pain x4 days, recent "pancreas surgery" at by Dr. Mathias approx 2wks ago for pseudocyst. 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 Patient is sp exploratory laparotomy, irrigation and drainage of pancreatic abscess. Management as per general surgery. 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 Continue IV antibiotics see below. Follow-up upper GI series shows suspected gastric perforation at the distal inferior stomach. Per general surgery, continue ice chips and TPN. For repeat upper GI series per general surgery 2. Hypercalcemia: Improving. IVF for hydration. 3. Leukocytosis: Improving. Continue IV vancomycin, Flagyl, Invanz, azithromycin and Diflucan. Out of bed and incentive spirometry 4. Alcohol Abuse: reports h/o alcohol abuse, however states he quit. Continue to monitor for possible withdrawal. Resume Folic Acid, Thiamine 5. COPD: Chronic Respiratory Failure. Stable. Resume home MDI/Neb. continue O2 to keep o2 sat more than 92%. 6. DM: Sliding scale w/ Accu-Cheks. Hold Metformin. Will continue insulin Levemir and regular in the TPN. 7. HTN: Improving continue clonidine patch to TTS 3. 8. Hypophosphatemia: Likely poor nutritional status. Replace. Monitor phosphorus. 9. Hypokalemia: Likely due to poor nutritional status. Replace Iv and monitor BMP. 10. DVT Prophylaxis: SCD/Teds and Lovenox. Discharge Planning Not ready for discharge Ac Liu MD Sep 29, 2016 09:28
[2016-09-29] MEDS: VANCOMYCIN INJ 1,500 MG in SODIUM CHLORID 0.9% 500 ML INJ 500 ML IV SCH (12:06)
--- NOTE | 2016-09-29 14:06 | HHI.PR ---
Subjective Subjective Notes Resting in bed Going to get up later to chair Objective Vitals/I&O Vital Signs Date Time Temp Pulse Resp B/P Pulse Ox O2 Delivery O2 Flow Rate FiO2 09/29/16 13:33 99 2.00 09/29/16 12:00 98.1 84 16 145/76 09/28/16 19:35 Room Air Labs Laboratory Tests Test 09/29/16 05:30 Sodium Level 146 Potassium Level 4.3 Chloride Level 112 Carbon Dioxide Level 28.2 Anion Gap 6 Blood Urea Nitrogen 15 Creatinine 0.62 Estimat Glomerular Filtration 157 Rate Random Glucose 114 Calcium Level 9.2 Cardiovascular: Regular Lungs: Clear Abdomen: Other (incision c/d/i; abdomen soft ) Extremities: No edema Narrative Exam Central line with PICC in place NGT in place to LIWS EDER with SS drainage A/P Assessment and Plan 66 year old male with pancreatic abscess POD9 I&D pancreatis abscess with pancreatic necrosectomy -NPO; okay for a few ice chips -Keep NGT to LIWS -Upper GI reviewed; will plan on repeating upper GI Monday -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 Bowman Resting comfortably Incision clean and dry Stable Keep NPO The exam, history, and the medical decision-making described in the above note were completed with the assistance of the mid-level provider. I reviewed and agree with the findings presented. I attest that I had a [id number] encounter with the patient on the same day, and personally performed and documented my assessment and findings in the medical record. Sabine Montague Sep 29, 2016 14:06 Devyn Bowman MD Sep 29, 2016 19:24
--- NOTE | 2016-09-29 15:52 | HHI.IDPN ---
Note Infectious Disease Note patient says he feels a little stronger. No nausea. No chills. No SOB. On TPN and has NG tube. Taking little bits of clear liquids. Presented to [facility] on September 16 with abdominal pain and also nausea and vomiting. Post irrigation and debridement of pancreatic abscess which was a large abscess and also pancreatic necrosectomy. 2nd surgery for same. PAST MEDICAL HISTORY: 1. Hepatitis C. 2. COPD. 3. Diabetes mellitus. 4. Alcohol abuse. 5. Congestive heart failure. 6. COPD. 7. History of appendectomy. 8. Patient underwent pancreatic necrosectomy on August 26, 2016. ALLERGIES: PENICILLIN. MEDICATIONS: 1. Ertapenem. 2. Fluconazole. 3. Metronidazole. 4. Vancomycin. SOCIAL HISTORY: The patient smoked two packs of cigarettes a day up until June of 2016. Alcohol use up until April of 2016. No illicit drugs. OBJECTIVE: Vital Signs Date Time Temp Pulse Resp B/P Pulse Ox O2 Delivery O2 Flow Rate FiO2 09/29/16 14:00 16 09/29/16 13:33 99 2.00 09/29/16 12:00 98.1 84 16 145/76 100 09/29/16 10:20 2.00 09/29/16 08:00 98.6 86 16 143/76 99 09/29/16 04:58 18 09/29/16 00:00 98.0 92 17 127/71 100 09/28/16 20:17 18 09/28/16 20:00 98.4 96 17 139/77 100 09/28/16 19:35 Room Air 09/28/16 18:05 99 Nasal Cannula 2.00 09/28/16 16:00 97.8 89 18 156/81 99 09/28/16 09/28/16 09/29/16 15:00 23:00 07:00 Intake Total 1619 ml 240 ml 2069 ml Output Total 2030 ml 550 ml 803 ml Balance -411 ml -310 ml 1266 ml Intake Oral 0 ml 240 ml 240 ml IV Total 408 ml 1829 ml TPN/PPN 1079 ml Lipid 132 ml Output Urine Total 1025 ml 550 ml 400 ml Gastric Drainage Total 1000 ml 400 ml Drainage Total 5 ml 3 ml # Bowel Movements 0 1 Laboratory Tests Test 09/28/16 05:40 White Blood Count 23.0 TH/MM3 Red Blood Count 3.43 MIL/MM3 Hemoglobin 7.9 GM/DL Hematocrit 25.4 % Mean Corpuscular Volume 73.9 FL Mean Corpuscular Hemoglobin 23.1 PG Mean Corpuscular Hemoglobin 31.3 % Concent Red Cell Distribution Width 16.2 % Platelet Count 316 TH/MM3 Mean Platelet Volume 10.6 FL Neutrophils (%) (Auto) 72.7 % Lymphocytes (%) (Auto) 12.5 % Monocytes (%) (Auto) 11.7 % Eosinophils (%) (Auto) 2.7 % Basophils (%) (Auto) 0.4 % Neutrophils # (Auto) 16.7 TH/MM3 Lymphocytes # (Auto) 2.9 TH/MM3 Monocytes # (Auto) 2.7 TH/MM3 Eosinophils # (Auto) 0.6 TH/MM3 Basophils # (Auto) 0.1 TH/MM3 CBC Comment AUTO DIFF Differential Comment AUTO DIFF CONFIRMED Target Cells 1+ Ovalocytes 1+ Acanthocytes OCC Laboratory Tests Test 09/28/16 09/29/16 05:40 05:30 Sodium Level 150 MEQ/L 146 MEQ/L Potassium Level 3.8 MEQ/L 4.3 MEQ/L Chloride Level 116 MEQ/L 112 MEQ/L Carbon Dioxide Level 26.3 MEQ/L 28.2 MEQ/L Anion Gap 8 MEQ/L 6 MEQ/L Blood Urea Nitrogen 16 MG/DL 15 MG/DL Creatinine 0.61 MG/DL 0.62 MG/DL Estimat Glomerular Filtration 160 ML/MIN 157 ML/MIN Rate Random Glucose 111 MG/DL 114 MG/DL Calcium Level 8.7 MG/DL 9.2 MG/DL Phosphorus Level 3.0 MG/DL Magnesium Level 1.9 MG/DL IMAGING: Abdomen/Pelvis CT 09/24/16 0000 Signed Impressions: Service Date/Time: Saturday, September 24, 2016 06:57 - CONCLUSION: 1. The peripancreatic fluid collections adjacent to the tail the pancreas and pancreatic head have decreased in size, as above. Similar to prior examination , the collection adjacent to the pancreatic head contains air and thick fluid like material. 2. There is left lower lobe collapse/atelectasis that is new since the prior CT. Mason Ceja MD PHYSICAL EXAMINATION: GENERAL: No acute distress. Awake alert and oriented. HEENT: The sclerae are pale. Oropharynx with no visible lesions. Moist mucosa. No thrush. NECK: The neck is supple without adenopathy. LUNGS: Bibasilar rhonchi. breath sounds clearer. HEART: Irregular rate and rhythm. No murmurs, rubs or gallops. ABDOMEN: Bowel sounds diminished. Non tender. Drainage catheter has serous drainage. EXTREMITIES: No clubbing or cyanosis or edema. SKIN: No rash. NEUROLOGIC: Alert and oriented. No gross focal findings. PSYCHIATRIC: Patient calm and cooperative. IMPRESSION: 1. Pancreatic abscess. Status post drainage and pancreatic necrosectomy. Wound culture has E. coli R to Levaquin. Also Lou. 2. Leukocytosis. WBC slow to decrease. 3. Penicillin allergy. RECOMMENDATIONS: 1. Stop Flagyl. 2. Continue Fluconazole. 3. Continue Ertapenem - E coli resistant and allergy to Penicillin. 4. Stop Vancomycin. 5. Monitor temp and white blood cell count. Maxime Hernandez MD Sep 29, 2016 15:52
[2016-09-29] MEDS: ERTAPENEM IV SCH (15:57)
[2016-09-29] MEDS: SODIUM CHLORIDE 0.9% IV SCH (15:57)
[2016-09-29] MEDS: SODIUM CHLORIDE 23.4% INJ 38.5 MEQ in WATER STERILE FOR INJ 1,000 ML IV SCH (17:00)
[2016-09-29] MEDS: FAT EMULSION 20% INJ 250 ML (@10 mls/hr) IV-CENTRAL SCH (21:38)
[2016-09-29] MEDS: POTASSIUM PHOSPHATE IV-CENTRAL SCH ×9 (21:41)
[2016-09-29] MEDS: POTASSIUM ACETATE IV-CENTRAL SCH ×9 (21:41)
[2016-09-29] MEDS: [UNRECOGNIZED DRUG - OTHER] IV-CENTRAL SCH ×9 (21:41)
[2016-09-29] MEDS: ENOXAPARIN SODIUM 40 MG/0.4 ML SYRINGE SQ SCH (21:46)
[2016-09-29] MEDS: FLUCONAZOLE 200 MG PREMIX BAG 100 ML IV SCH (22:10)
[2016-09-30] VITALS (8 sets, daily range): BP systolic 121–148; BP diastolic 67–80; PULSE 89–96; RESP 16–24; TEMP 96.2–99.8; O2SAT 96–100
[2016-09-30] MEDS: PCA - TOTAL MG MORPHINE DELIVERED PER SHIFT SCH ×3 (05:19→22:00)
[2016-09-30] MEDS: INSULIN ASPART SUPPLEMENTAL SCALE SQ SCH ×5 (05:19→23:23)
[2016-09-30 06:02] LABS: AUTOMATED NEUTROPHIL # 23.9 TH/MM3 (1.8-7.7); BASOPHIL # 0.1 TH/MM3 (0-0.2); BASOPHIL % 0.2 % (0.0-2.0); EOSINOPHIL # 0.5 TH/MM3 (0-0.4); EOSINOPHIL % 1.8 % (0.0-4.0); HEMATOCRIT 26.7 % (39.0-51.0); HEMO FLAGS DIFF FINAL; LYMPHOCYTE # 2.9 TH/MM3 (1.0-4.8); MEAN CORPUSCULAR HEMOGLOBIN 23.8 PG (27.0-34.0); MEAN CORPUSCULAR HGB CONC 32.5 % (32.0-36.0); MONO % 6.9 % (0.0-8.0); NEUT % 81.1 % (16.0-70.0); PLATELET COUNT 331 TH/MM3 (150-450); RED BLOOD COUNT 3.66 MIL/MM3 (4.50-5.90); RED CELL DISTRIBUTION WIDTH 16.4 % (11.6-17.2); WHITE BLOOD COUNT 29.4 TH/MM3 (4.0-11.0)
[2016-09-30 06:24] LABS: ALT (GPT) 14 U/L (12-78); ANION GAP 8 MEQ/L (5-15); AST (GOT) 15 U/L (15-37); BICARBONATE 25.8 MEQ/L (21.0-32.0); BLOOD UREA NITROGEN 16 MG/DL (7-18); CHLORIDE 107 MEQ/L (98-107); GLOMERULAR FILTRATION RATE 137 ML/MIN (>89); SODIUM (NA) 141 MEQ/L (136-145)
[2016-09-30 06:27] LABS: ALKALINE PHOSPHATASE 90 U/L (45-117); TOTAL BILIRUBIN ADULT 0.2 MG/DL (0.2-1.0)
[2016-09-30] MEDS: INSULIN DETEMIR 100 UNITS/ML VIAL SQ SCH ×2 (09:00→20:33)
[2016-09-30] MEDS: BUDESONIDE-FORMOTEROL 160/4.5 MCG INHALER INH SCH ×2 (09:00→20:25)
[2016-09-30] MEDS: SODIUM CHLORIDE 0.9% FLUSH 10 ML FLUSH IV FLUSH SCH ×2 (09:00→20:26)
--- NOTE | 2016-09-30 09:35 | HHI.PR ---
Subjective Remarks Follow-up leukocytosis. Patient without fever but has productive cough of yellow phlegm usual dyspnea. 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, repeat CT scan of the abdomen and chest x-ray Objective Vitals Vital Signs Date Time Temp Pulse Resp B/P Pulse Ox O2 Delivery O2 Flow Rate FiO2 09/30/16 08:00 97.6 93 16 133/80 100 09/30/16 05:19 18 09/30/16 00:00 99.8 92 18 143/79 99 09/29/16 22:00 18 09/29/16 21:00 Nasal Cannula 2.00 21 09/29/16 20:15 99 Nasal Cannula 2.00 09/29/16 20:00 97.4 95 17 137/73 99 09/29/16 16:00 97.6 92 17 154/82 100 09/29/16 14:00 16 09/29/16 13:33 99 2.00 09/29/16 12:00 98.1 84 16 145/76 100 09/29/16 10:20 2.00 I/O 09/29/16 09/29/16 09/29/16 09/30/16 09/30/16 09/30/16 06:59 14:59 22:59 06:59 14:59 22:59 Intake Total 2069 ml 1520 ml 0 ml 0 ml Output Total 803 ml 750 ml 600 ml 1000 ml Balance 1266 ml 770 ml -600 ml -1000 ml Intake Oral 240 ml 0 ml 0 ml 0 ml IV Total 1829 ml 634 ml TPN/PPN 791 ml Lipid 95 ml Output Urine Total 400 ml 500 ml 600 ml 400 ml Gastric Drainage Total 400 ml 250 ml 600 ml Drainage Total 3 ml 0 ml # Voids 2 3 # Bowel Movements 0 0 1 Result Diagram: 09/30/16 0500 09/30/16 0500 Imaging Last Impressions Upper GI Series 09/26/16 0600 Signed Impressions: Service Date/Time: Monday, September 26, 2016 08:53 - CONCLUSION: Suspected gastric perforation at the inferior distal aspect of the stomach with a collection seen inferior to the distal stomach and anterior to the duodenum. Mason Monge MD Abdomen/Pelvis CT 09/24/16 0000 Signed Impressions: Service Date/Time: Saturday, September 24, 2016 06:57 - CONCLUSION: 1. The peripancreatic fluid collections adjacent to the tail the pancreas and pancreatic head have decreased in size, as above. Similar to prior examination , the collection adjacent to the pancreatic head contains air and thick fluid like material. 2. There is left lower lobe collapse/atelectasis that is new since the prior CT. Mason Ceja MD Chest X-Ray 09/23/16 0000 Signed Impressions: Service Date/Time: Friday, September 23, 2016 11:09 - CONCLUSION: Increasing consolidative changes left base. Kermit Rollins MD FACR Objective Remarks GENERAL: This is a very thin, well-developed in no distress. NGT in place SKIN: No rashes, warm and dry HEAD: Atraumatic. Normocephalic. EYES: Pupils equal round and reactive. Extraocular motions intact. ENT: Nose without bleeding, or drainage, Airway patent. NECK: Trachea midline. Supple CARDIOVASCULAR: Regular rate and rhythm without murmurs, gallops, or rubs. RESPIRATORY: Fair air entry bilaterally. No wheezes, rales, or rhonchi. GASTROINTESTINAL: Abdominal binder observed, Abdomen soft, mildly distended. + bowel sounds. EDER drain with serosanguineous fluid. MUSCULOSKELETAL: Extremities without clubbing, cyanosis, or edema. Pedal pulses appreciated NEUROLOGICAL: Awake and alert. Moves all extremity. Normal speech. Chronic left facial droop and right upper extremity weakness Procedures Right IJ central line sp Exploratory laparotomy, irrigation and debridement of peripancreatic abscess and necrosectomy A/P Problem List: (1) Pancreatic abscess ICD Code: K85.90 Status: Acute (2) Hypercalcemia ICD Code: E83.52 Status: Resolved (3) Leukocytosis ICD Code: D72.829 Status: Acute (4) Alcohol abuse ICD Code: F10.10 Status: Chronic (5) COPD (chronic obstructive pulmonary disease) ICD Code: J44.9 Status: Chronic (6) DM (diabetes mellitus) ICD Code: E11.9 Status: Chronic Assessment and Plan 1. Pancreatic Abscess: c/o acute onset abdominal pain x4 days, recent "pancreas surgery" at by Dr. Mathias approx [address] ago for pseudocyst. [address] Abd/Pelvis .1 x 7 cm abscess at site of previous pseudocyst on July 07, complex 7.3 x 3.8 presumed pseudocyst at aortic bifurcation, similar to July 07 images. Patient is sp exploratory laparotomy, irrigation and drainage of pancreatic abscess. Management as per general surgery. 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 Continue IV antibiotics see below. Follow-up upper GI series shows suspected gastric perforation at the distal inferior stomach. Per general surgery, continue ice chips and TPN. Absolute nothing by mouth. For repeat upper GI series per general surgery 2. Hypercalcemia: Improving. IVF for hydration. 3. Leukocytosis: Worse. Continue IV Invanz and ID started Zyvox and switch Diflucan to micafungin. Discontinued vancomycin and Flagyl. Out of bed and incentive spirometry. Repeat chest x-ray, CT of abdomen and pelvis and CBC in the morning. 4. Alcohol Abuse: reports h/o alcohol abuse, however states he quit. Continue to monitor for possible withdrawal. Resume Folic Acid, Thiamine 5. COPD: Chronic Respiratory Failure. Stable. Resume home MDI/Neb. continue O2 to keep o2 sat more than 92%. 6. DM: Sliding scale w/ Accu-Cheks. Hold Metformin. Will continue insulin Levemir and regular in the TPN. 7. HTN: Improving continue clonidine patch to TTS 3. 8. Hypophosphatemia: Likely poor nutritional status. Replace. Monitor phosphorus. 9. Hypokalemia: Likely due to poor nutritional status. Replace in TPN and monitor BMP. 10. Hypernatremia. Improving status post hypotonic fluid. Repeat BMP in the morning. DVT Prophylaxis: SCD/Teds and Lovenox. Discharge Planning Not ready for discharge Ac Liu MD Sep 30, 2016 09:35
[2016-09-30] MEDS ORDERED: PHENOL 1.4% SOLN 180 ML BTL OROPHARYNG PRN (10:00)
[2016-09-30] MEDS ORDERED: DIATRIZOATE MEGLUM/DIATRIZOATE SOD 9 ML CUP PO ONE (11:30)
--- NOTE | 2016-09-30 11:42 | HHI.IDPN ---
Note Infectious Disease Note Patient feels weak. Looks a bit lethargic. No nausea. Denies chills. No SOB. Scott some pain in the abdomen. On TPN and has NG tube. Taking little bits of clear liquids. Coughing but not expectorating sputum. WBC increasing again. Minimal drainage from abdominal drainage catheter. Presented to [facility] on September 16 with abdominal pain and also nausea and vomiting. Post irrigation and debridement of pancreatic abscess which was a large abscess and also pancreatic necrosectomy. 2nd surgery for same. PAST MEDICAL HISTORY: 1. Hepatitis C. 2. COPD. 3. Diabetes mellitus. 4. Alcohol abuse. 5. Congestive heart failure. 6. COPD. 7. History of appendectomy. 8. Patient underwent pancreatic necrosectomy on August 26, 2016. ALLERGIES: PENICILLIN. MEDICATIONS: 1. Ertapenem. 2. Fluconazole. Metronidazole stopped 09/29. Vancomycin stopped 09/29. SOCIAL HISTORY: The patient smoked two packs of cigarettes a day up until June of 2016. Alcohol use up until April of 2016. No illicit drugs. OBJECTIVE: Vital Signs Date Time Temp Pulse Resp B/P Pulse Ox O2 Delivery O2 Flow Rate FiO2 09/30/16 10:13 97 Nasal Cannula 2.00 09/30/16 09:23 Nasal Cannula 2.00 09/30/16 08:00 97.6 93 16 133/80 100 09/30/16 05:19 18 09/30/16 00:00 99.8 92 18 143/79 99 09/29/16 22:00 18 09/29/16 21:00 Nasal Cannula 2.00 21 09/29/16 20:15 99 Nasal Cannula 2.00 09/29/16 20:00 97.4 95 17 137/73 99 09/29/16 16:00 97.6 92 17 154/82 100 09/29/16 14:00 16 09/29/16 13:33 99 2.00 09/29/16 12:00 98.1 84 16 145/76 100 09/29/16 09/29/16 09/30/16 15:00 23:00 07:00 Intake Total 1520 ml 0 ml 0 ml Output Total 750 ml 600 ml 1000 ml Balance 770 ml -600 ml -1000 ml Intake Oral 0 ml 0 ml 0 ml IV Total 634 ml TPN/PPN 791 ml Lipid 95 ml Output Urine Total 500 ml 600 ml 400 ml Gastric Drainage Total 250 ml 600 ml Drainage Total 0 ml # Voids 2 3 # Bowel Movements 0 0 1 Laboratory Tests Test 09/30/16 05:00 White Blood Count 29.4 TH/MM3 Red Blood Count 3.66 MIL/MM3 Hemoglobin 8.7 GM/DL Hematocrit 26.7 % Mean Corpuscular Volume 73.0 FL Mean Corpuscular Hemoglobin 23.8 PG Mean Corpuscular Hemoglobin 32.5 % Concent Red Cell Distribution Width 16.4 % Platelet Count 331 TH/MM3 Mean Platelet Volume 10.4 FL Neutrophils (%) (Auto) 81.1 % Lymphocytes (%) (Auto) 10.0 % Monocytes (%) (Auto) 6.9 % Eosinophils (%) (Auto) 1.8 % Basophils (%) (Auto) 0.2 % Neutrophils # (Auto) 23.9 TH/MM3 Lymphocytes # (Auto) 2.9 TH/MM3 Monocytes # (Auto) 2.0 TH/MM3 Eosinophils # (Auto) 0.5 TH/MM3 Basophils # (Auto) 0.1 TH/MM3 CBC Comment DIFF FINAL Differential Comment Laboratory Tests Test 09/29/16 09/30/16 05:30 05:00 Sodium Level 146 MEQ/L 141 MEQ/L Potassium Level 4.3 MEQ/L 5.0 MEQ/L Chloride Level 112 MEQ/L 107 MEQ/L Carbon Dioxide Level 28.2 MEQ/L 25.8 MEQ/L Anion Gap 6 MEQ/L 8 MEQ/L Blood Urea Nitrogen 15 MG/DL 16 MG/DL Creatinine 0.62 MG/DL 0.70 MG/DL Estimat Glomerular Filtration 157 ML/MIN 137 ML/MIN Rate Random Glucose 114 MG/DL 116 MG/DL Calcium Level 9.2 MG/DL 9.4 MG/DL Total Bilirubin 0.2 MG/DL Aspartate Amino Transf 15 U/L (AST/SGOT) Alanine Aminotransferase 14 U/L (ALT/SGPT) Alkaline Phosphatase 90 U/L Total Protein 6.6 GM/DL Albumin 2.4 GM/DL IMAGING: Abdomen/Pelvis CT 09/24/16 0000 Signed Impressions: Service Date/Time: Saturday, September 24, 2016 06:57 - CONCLUSION: 1. The peripancreatic fluid collections adjacent to the tail the pancreas and pancreatic head have decreased in size, as above. Similar to prior examination , the collection adjacent to the pancreatic head contains air and thick fluid like material. 2. There is left lower lobe collapse/atelectasis that is new since the prior CT. Mason Ceja MD PHYSICAL EXAMINATION: GENERAL: No acute distress. Awake alert and oriented. HEENT: The sclerae are pale. Oropharynx with no visible lesions. Moist mucosa. No thrush. NECK: The neck is supple without adenopathy. LUNGS: Coarse bilateral rhonchi. HEART: Irregular rate and rhythm. No murmurs, rubs or gallops. ABDOMEN: Bowel sounds diminished. flat, soft, Non tender. EXTREMITIES: No clubbing or cyanosis or edema. SKIN: No rash. NEUROLOGIC: Alert and oriented. No gross focal findings. PSYCHIATRIC: Patient calm and cooperative. IMPRESSION: 1. Pancreatic abscess. Status post drainage and pancreatic necrosectomy. Wound culture has E. coli R to Levaquin. Also Lou. 2. Leukocytosis. WBC back up again. ? intraabdominal infection. ? pulmonary. 3. Penicillin allergy. RECOMMENDATIONS: 1. Start Zyvox. 2. Change Fluconazole to Micafungin. 3. Continue Ertapenem - E coli resistant and allergy to Penicillin. 4. CT of abdomen. 5. CXR. 6. Culture of abdominal drainage. 7. Monitor temp and white blood cell count. Maxime Hernandez MD Sep 30, 2016 11:42
[2016-09-30] MEDS: ONDANSETRON HCL 4 MG/2 ML VIAL IVP PRN (12:54)
[2016-09-30] MEDS: LINEZOLID 600 MG PREMIX 300 ML IV SCH ×2 (12:55→23:25)
[2016-09-30] MEDS: MICAFUNGIN INJ 100 MG in SODIUM CHLORIDE 0.9% INJ 100 ML IV SCH (12:55)
--- NOTE | 2016-09-30 13:51 | RADRPT ---
EXAM DATE/TIME: 09/30/2016 13:23 [facility] COMPARISON: CHEST SINGLE AP, September 23, 2016, 11:09. INDICATIONS : Pneumonia MEDICAL HISTORY : Chronic obstructive pulmonary disease. Hypertension SURGICAL HISTORY : Appendectomy. ENCOUNTER: Subsequent ACUITY: 2 weeks PAIN SCORE: 0/10 LOCATION: Bilateral chest FINDINGS: Right IJ central line in good position. Improved aeration particularly in the left lower lobe. Cardia c mediastinal contours are stable. Remainder of the exam is unchanged. CONCLUSION: 1. Improved left lower lobe airspace disease. Elías Daugherty MD on September 30, 2016 at 13:46 Board Certified Radiologist. This report was verified electronically.
[2016-09-30] MEDS: SODIUM CHLORIDE 23.4% INJ 38.5 MEQ in WATER STERILE FOR INJ 1,000 ML IV SCH (17:00)
[2016-09-30] MEDS: SODIUM CHLORIDE 0.9% IV SCH (17:04)
[2016-09-30] MEDS: ERTAPENEM IV SCH (17:04)
[2016-09-30] MEDS ORDERED: IOHEXOL 350 MG/ML 10 ML VIAL (for RAD DIAG) IV ONE (19:59)
[2016-09-30] MEDS: ENOXAPARIN SODIUM 40 MG/0.4 ML SYRINGE SQ SCH (20:25)
[2016-09-30] MEDS: POTASSIUM PHOSPHATE IV-CENTRAL SCH ×9 (20:34)
[2016-09-30] MEDS: [UNRECOGNIZED DRUG - OTHER] IV-CENTRAL SCH ×9 (20:34)
[2016-09-30] MEDS: POTASSIUM ACETATE IV-CENTRAL SCH ×9 (20:34)
[2016-09-30] MEDS: FAT EMULSION 20% INJ 250 ML (@10 mls/hr) IV-CENTRAL SCH (20:40)
--- NOTE | 2016-09-30 20:43 | RADRPT ---
EXAM DATE/TIME: 09/30/2016 18:41 [facility] COMPARISON: CT ABDOMEN & PELVIS W CONTRAST, September 24, 2016, 6:57. INDICATIONS : Abdominal pain; status post necrosectomy. (pancreatic abscess) IV CONTRAST: 95 cc Omnipaque 350 (iohexol) IV ORAL CONTRAST: No oral contrast ingested. RADIATION DOSE: 9.06 CTDIvol (mGy) MEDICAL HISTORY : Cardiovascular disease. Congestive heart failure. Seizures.Diabetes, hypertension SURGICAL HISTORY : Appendectomy. ENCOUNTER: Subsequent ACUITY: 2 weeks PAIN SCALE: 5/10 LOCATION: abdomen TECHNIQUE: Volumetric scanning of the abdomen and pelvis was performed. Using automated exposure control and ad justment of the mA and/or kV according to patient size, radiation dose was kept as low as reasonably achievable to obtain optimal diagnostic quality images. DICOM format image data is available electro nically for review and comparison. FINDINGS: LOWER LUNGS: Left basilar consolidation has shown some improvement. Right basilar atelectasis is new. The heart is at the upper limits of normal in terms of size. LIVER: Homogeneous density without lesion. There is no dilation of the biliary tree. No calcified gallston es. SPLEEN: Normal size without lesion. PANCREAS: There are multiple fluid collections seen adjacent to the pancreas. Adjacent to the anterior margin o f the tail is a 6.0 x 2.6 cm fluid collection which is larger from the prior exam where it measured 2 .3 x 1.1 cm. Directly anterior to the pancreatic head is a complex collection containing a small amou nt of air which measures 7.9 x 4.4 cm where previously measured 7.0 x 5.2 cm. Just inferior to the pa ncreatic body involving the root of the mesentery is a fluid collection that measures 7.4 x 3.9 cm wh ich is minimally smaller from the prior exam. No pancreatic ductal dilatation. KIDNEYS: Normal in size and shape. There is no mass, stone or hydronephrosis. ADRENAL GLANDS: Within normal limits. VASCULAR: There is no aortic aneurysm. BOWEL/MESENTERY: The stomach, small bowel, and colon demonstrate no acute abnormality. There is no free intraperitone al air or fluid. ABDOMINAL WALL: Within normal limits. RETROPERITONEUM: There is no lymphadenopathy. BLADDER: No wall thickening or mass. REPRODUCTIVE: Within normal limits. INGUINAL: There is no lymphadenopathy or hernia. MUSCULOSKELETAL: Within normal limits for patient age. CONCLUSION: 1. Multiple fluid collections seen associated with the pancreas and the root of the mesentery. The fl uid collection associated with the pancreatic tail has increased in size from the prior study while t he remaining collections are essentially stable. Hubert Rodrigues Jr., MD on September 30, 2016 at 20:35 Board Certified Radiologist. This report was verified electronically.
[2016-10-01 04:00] VITALS: BP 137/75; PULSE 95; RESP 20; TEMP 96.5; O2SAT 98
[2016-10-01] MEDS: PCA - TOTAL MG MORPHINE DELIVERED PER SHIFT SCH ×3 (04:43→22:00)
[2016-10-01 05:56] LABS: AUTOMATED NEUTROPHIL # 23.7 TH/MM3 (1.8-7.7); BASOPHIL # 0.1 TH/MM3 (0-0.2); BASOPHIL % 0.2 % (0.0-2.0); EOSINOPHIL # 0.7 TH/MM3 (0-0.4); EOSINOPHIL % 2.2 % (0.0-4.0); HEMATOCRIT 26.8 % (39.0-51.0); LYMPH % 9.2 % (9.0-44.0); LYMPHOCYTE # 2.7 TH/MM3 (1.0-4.8); MEAN CELL VOLUME 72.8 FL (80.0-100.0); MEAN CORPUSCULAR HEMOGLOBIN 23.2 PG (27.0-34.0); MEAN CORPUSCULAR HGB CONC 31.9 % (32.0-36.0); NEUT % 80.4 % (16.0-70.0); PLATELET COUNT 357 TH/MM3 (150-450); RED BLOOD COUNT 3.69 MIL/MM3 (4.50-5.90); RED CELL DISTRIBUTION WIDTH 16.7 % (11.6-17.2); WHITE BLOOD COUNT 29.5 TH/MM3 (4.0-11.0)
[2016-10-01] MEDS: INSULIN ASPART SUPPLEMENTAL SCALE SQ SCH ×4 (06:00→23:33)
[2016-10-01 06:04] LABS: HEMO FLAGS AUTO DIFF
[2016-10-01 06:21] LABS: ALKALINE PHOSPHATASE 94 U/L (45-117); ALT (GPT) 12 U/L (12-78); ANION GAP 6 MEQ/L (5-15); AST (GOT) 14 U/L (15-37); BICARBONATE 27.9 MEQ/L (21.0-32.0); BLOOD UREA NITROGEN 22 MG/DL (7-18); CHLORIDE 99 MEQ/L (98-107); GLOMERULAR FILTRATION RATE 90 ML/MIN (>89); POTASSIUM 5.5 MEQ/L (3.5-5.1); SODIUM (NA) 133 MEQ/L (136-145); TOTAL BILIRUBIN ADULT 0.2 MG/DL (0.2-1.0)
[2016-10-01 07:49] LABS: BANDS 2 % (0-6); EOSINOPHILS 2 % (0-4); MYELOCYTES 1 % (0-0); NEUTROPHIL # MANUAL DIFF 22.7 TH/MM3 (1.8-7.7); POLYS (SEG NEUTROPHILS) 74 % (16-70); WBC DIFF SAMPLE 100
[2016-10-01 07:52] LABS: ACANTHOCYTES OCC (NORMAL); PLATELET ESTIMATE SMEAR HIGH (NORMAL); PLATELET MORPHOLOGY ENLARGED (NORMAL)
[2016-10-01 07:53] LABS: SCAN/DIFF FINAL DIFF MANUAL
[2016-10-01 08:00] VITALS: BP 136/77; PULSE 92; RESP 24; TEMP 98.2; O2SAT 98
--- NOTE | 2016-10-01 08:06 | HHI.PR ---
Subjective Subjective Notes Late entry note: This is a progress note for 09/30 Patient resting in bed; SHEYLA Garcia at bedside Objective Vitals/I&O Vital Signs Date Time Temp Pulse Resp B/P Pulse Ox O2 Delivery O2 Flow Rate FiO2 10/01/16 04:43 14 10/01/16 04:00 96.5 95 137/75 98 09/30/16 20:23 Nasal Cannula 2.00 09/29/16 21:00 21 Labs Laboratory Tests Test 10/01/16 04:55 White Blood Count 29.5 Red Blood Count 3.69 Hemoglobin 8.6 Hematocrit 26.8 Mean Corpuscular Volume 72.8 Mean Corpuscular Hemoglobin 23.2 Mean Corpuscular Hemoglobin 31.9 Concent Red Cell Distribution Width 16.7 Platelet Count 357 Mean Platelet Volume 9.9 Neutrophils (%) (Auto) 80.4 Lymphocytes (%) (Auto) 9.2 Monocytes (%) (Auto) 8.0 Eosinophils (%) (Auto) 2.2 Basophils (%) (Auto) 0.2 Neutrophils # (Auto) 23.7 Lymphocytes # (Auto) 2.7 Monocytes # (Auto) 2.4 Eosinophils # (Auto) 0.7 Basophils # (Auto) 0.1 CBC Comment AUTO DIFF Differential Total Cells 100 Counted Neutrophils % (Manual) 74 Band Neutrophils % 2 Lymphocytes % 9 Monocytes % 12 Eosinophils % 2 Neutrophils # (Manual) 22.7 Myelocytes 1 Differential Comment FINAL DIFF MANUAL Platelet Estimate HIGH Platelet Morphology Comment ENLARGED Acanthocytes OCC Sodium Level 133 Potassium Level 5.5 Chloride Level 99 Carbon Dioxide Level 27.9 Anion Gap 6 Blood Urea Nitrogen 22 Creatinine 1.01 Estimat Glomerular Filtration 90 Rate Random Glucose 121 Calcium Level 9.7 Phosphorus Level 5.0 Magnesium Level 2.0 Total Bilirubin 0.2 Aspartate Amino Transf 14 (AST/SGOT) Alanine Aminotransferase 12 (ALT/SGPT) Alkaline Phosphatase 94 Total Protein 7.2 Albumin 2.5 Date/Time Procedure Status Source Growth 09/30/16 18:00 Gram Stain Received Wound Abdomen Pending 09/30/16 18:00 Wound Culture Received Wound Abdomen Pending Cardiovascular: Regular Lungs: Clear Abdomen: Other (soft; non distended; lowell removed; SS in place; retention sutures in place ) Extremities: No edema Narrative Exam Central line with PICC in place NGT in place to LIWS EDER with SS drainage A/P Assessment and Plan 66 year old male with pancreatic abscess POD9 I&D pancreatis abscess with pancreatic necrosectomy -Repeat CT due to elevated WBC -Plan to place PICC and DC Central line---okay to place PICC line with elevated WBC -Will check blood cultures x2 first -NPO; okay for a few ice chips -Keep NGT to LIWS -Upper GI reviewed; will plan on repeating upper GI Monday -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
--- NOTE | 2016-10-01 08:32 | HHI.PR ---
Subjective Remarks f/u; pancreatic abscess ill looking but in no acute distress. remains afebrile. pain is controlled. no nausea or vomiting. Objective Vitals Vital Signs Date Time Temp Pulse Resp B/P Pulse Ox O2 Delivery O2 Flow Rate FiO2 10/01/16 04:43 14 10/01/16 04:00 96.5 95 20 137/75 98 09/30/16 23:44 98.0 96 18 136/72 99 09/30/16 22:00 14 09/30/16 20:23 96 Nasal Cannula 2.00 09/30/16 20:00 98.3 91 18 128/73 98 09/30/16 20:00 98 Nasal Cannula 2.00 09/30/16 16:00 96.2 89 16 121/67 99 09/30/16 14:00 16 09/30/16 12:00 99.4 96 24 148/71 97 09/30/16 10:13 97 Nasal Cannula 2.00 09/30/16 09:23 Nasal Cannula 2.00 I/O 09/30/16 09/30/16 09/30/16 10/01/16 10/01/16 10/01/16 07:00 15:00 23:00 07:00 15:00 23:00 Intake Total 0 ml 4278 ml 1213 ml Output Total 1000 ml 150 ml 850 ml 1000 ml Balance -1000 ml -150 ml 3428 ml 213 ml Intake Oral 0 ml 0 ml 0 ml IV Total 1494 ml 475 ml TPN/PPN 2485 ml 659 ml Lipid 299 ml 79 ml Output Urine Total 400 ml 150 ml 700 ml 900 ml Gastric Drainage Total 600 ml 150 ml 100 ml Drainage Total 0 ml # Voids 3 1 2 # Bowel Movements 1 0 0 1 Result Diagram: 10/01/16 0455 10/01/16 0455 Imaging Last Impressions Chest X-Ray 09/30/16 0000 Signed Impressions: Service Date/Time: Friday, September 30, 2016 13:23 - CONCLUSION: 1. Improved left lower lobe airspace disease. Elías Daugherty MD Abdomen/Pelvis CT 09/30/16 0000 Signed Impressions: Service Date/Time: Friday, September 30, 2016 18:41 - CONCLUSION: 1. Multiple fluid collections seen associated with the pancreas and the root of the mesentery. The fluid collection associated with the pancreatic tail has increased in size from the prior study while the remaining collections are essentially stable. Hubert Rodrigues Jr., MD Upper GI Series 09/26/16 0600 Signed Impressions: Service Date/Time: Monday, September 26, 2016 08:53 - CONCLUSION: Suspected gastric perforation at the inferior distal aspect of the stomach with a collection seen inferior to the distal stomach and anterior to the duodenum. Mason Monge MD Objective Remarks GENERAL: ill looking but in no apparent distress. NG tube in place. HEENT; NG tube in place- CARDIOVASCULAR: Regular rate and irregular rhythm without murmurs, gallops, or rubs. RESPIRATORY: Clear to auscultation. Breath sounds equal bilaterally. No wheezes , rales, or rhonchi. GASTROINTESTINAL: Abdomen soft, non-tender, nondistended. drain in place. MUSCULOSKELETAL: Extremities without clubbing, cyanosis, or edema. NEURO: Alert & Oriented x4 to person, place, time, situation. Moves all ext x4 Procedures Right IJ central line sp Exploratory laparotomy, irrigation and debridement of peripancreatic abscess and necrosectomy Medications and IVs Current Medications Ondansetron HCl (Zofran Inj) 4 mg ONCE ONCE IVP Last administered on 09/16/16 19:48; Start 09/16/16 at 19:00; Stop 09/16/16 at 19:01; Status DC Sodium Chloride (NS Flush) 2 ml UNSCH PRN IV FLUSH FLUSH AFTER USING IV ACCESS Last administered on 09/16/16 19:48; Start 09/16/16 at 19:00; Stop 09/16/16 at 21: 05; Status DC Hydromorphone HCl 1 mg 1 mg ONCE ONCE IVS Last administered on 09/16/16 19:48 ; Start 09/16/16 at 19:00; Stop 09/16/16 at 19:01; Status DC Sodium Chloride 500 ml @ 500 mls/hr BOLUS ONCE IV Last administered on 19:47; Start 09/16/16 at 19:00; Stop 09/16/16 at 19:59; Status DC Aztreonam 2000 mg/ Sodium Chloride 100 ml @ 200 mls/hr ONCE STAT IV Last administered on 09/16/16 22:52; Start 09/16/16 at 20:25; Stop 09/16/16 at 20:54; Status DC Metronidazole 100 ml @ 100 mls/hr ONCE STAT IV Last administered on 09/16/16 21:57; Start 09/16/16 at 20:25; Stop 09/16/16 at 21:24; Status DC Ciprofloxacin/ Dextrose 200 ml @ 200 mls/hr Q12H IV Last administered on 10:59; Start 09/17/16 at 09:00; Stop 09/20/16 at 20:42; Status DC Metronidazole 100 ml @ 100 mls/hr Q8H IV Last administered on 09/20/16 11:39 ; Start 09/17/16 at 04:00; Stop 09/20/16 at 20:42; Status DC Sodium Chloride (NS 1000 ml Inj) 1,000 ml @ 125 mls/hr Q8H IV Last administered on 09/19/16 09:59; Start 09/16/16 at 20:54; Stop 09/19/16 at 20:15 ; Status DC Sodium Chloride (NS Flush) 2 ml UNSCH PRN IV FLUSH FLUSH AFTER USING IV ACCESS ; Start 09/16/16 at 21:00 Sodium Chloride (NS Flush) 2 ml BID IV FLUSH Last administered on 09/30/16 20: 26; Start 09/16/16 at 21:00 Ondansetron HCl (Zofran Inj) 4 mg Q6H PRN IVP NAUSEA OR VOMITING Last administered on 09/30/16 12:54; Start 09/16/16 at 21:00 Acetaminophen (Tylenol) 650 mg Q6H PRN PO FEVER; Start 09/16/16 at 21:00; Status Hold Morphine Sulfate (Morphine Inj) 2 mg Q3H PRN IV Pain 6-10 Last administered on 09/19/16 15:26; Start 09/16/16 at 21:00; Stop 09/19/16 at 19:31; Status DC Oxycodone HCl (Roxicodone) 5 mg Q4H PRN PO PAIN SCALE 3 TO 5 Last administered on 09/16/16 22:52; Start 09/16/16 at 21:00; Status Hold Senna/Docusate Sodium (Fátima-Colace) 1 tab BID PO Last administered on 20:08; Start 09/16/16 at 21:00; Status Hold Magnesium Hydroxide (Milk Of Magnesia Liq) 30 ml Q12H PRN PO MILD - MODERATE CONSTIPATION; Start 09/16/16 at 21:00; Status Hold Sennosides (Senokot) 17.2 mg Q12H PRN PO MODERATE - SEVERE CONSTIPATION; Start 09/16/16 at 21:00; Status Hold Bisacodyl (Dulcolax Supp) 10 mg DAILY PRN RECTAL SEVERE CONSITIPATION; Start at 21:00 Lactulose (Lactulose Liq) 30 ml DAILY PRN PO SEVERE CONSITIPATION; Start at 21:00; Status Hold Hydromorphone HCl (Dilaudid Pf Inj) 1 mg ONCE ONCE IV PUSH ; Start 09/16/16 at 22:15; Stop 09/16/16 at 22:16; Status DC Albuterol Sulfate (Albuterol Neb) 2.5 mg QID NEB PRN NEB SHORTNESS OF BREATH Last administered on 09/27/16 03:09; Start 09/17/16 at 02:15 Allopurinol (Zyloprim) 300 mg DAILY PO Last administered on 09/19/16 09:58; Start 09/17/16 at 09:00; Status Hold Amlodipine Besylate (Norvasc) 5 mg BID PO Last administered on 09/19/16 09:58 ; Start 09/17/16 at 09:00; Status Hold Budesonide/ Formoterol Fumarate (Symbicort 160-4.5 Inh) 2 puff Q12HR INH Last administered on 09/30/16 20:25; Start 09/17/16 at 09:00 Clonidine (Catapres) 0.2 mg Q12HR PO Last administered on 09/19/16 09:58; Start 09/17/16 at 09:00; Status Hold Gabapentin (Neurontin) 600 mg TID PO Last administered on 09/19/16 09:58; Start 09/17/16 at 09:00; Status Hold Roflumilast (Daliresp) 500 mcg DAILY PO Last administered on 09/19/16 09:58; Start 09/17/16 at 09:00; Status Hold Thiamine HCl (Vitamin B1) 100 mg DAILY PO Last administered on 09/18/16 08:19 ; Start 09/17/16 at 09:00; Status Hold Zolpidem Tartrate (Ambien) 5 mg HS PRN PO insomnia Last administered on 22:57; Start 09/17/16 at 02:15; Status Hold Folic Acid (Folate) 1 mg DAILY PO Last administered on 09/18/16 08:18; Start 09/17/16 at 09:00; Status Hold Amylase/Lipase/ Protease (Creon 24-76-120) 2 cap TID PO Last administered on 17:07; Start 09/17/16 at 13:00; Status Hold Iohexol 98 ml 98 ml STK-MED ONCE IV Last administered on 09/17/16 15:40; Start 09/17/16 at 15:40; Stop 09/17/16 at 15:41; Status DC Lactated Ringer's 1,000 ml @ 30 mls/hr Q24H PRN IV SEE LABEL COMMENTS; Start at 22:45; Stop 09/19/16 at 19:23; Status DC Sodium Chloride (NS 500 ml Inj) 500 ml @ 30 mls/hr [id number] PRN IV SEE LABEL COMMENTS; Start 09/18/16 at 22:45; Stop 09/19/16 at 19:23; Status DC Metoprolol Tartrate (Lopressor) 25 mg FORMULATION TECHNICIAN PRN PO SEE LABEL COMMENTS; Start 09/18/16 at 22:45; Stop 09/21/16 at 22:44; Status DC Povidone Iodine (Betadine 5% Antisepsis Kit) 1 applic FORMULATION TECHNICIAN PRN EACH NARE SEE LABEL COMMENTS; Start 09/18/16 at 22:45; Stop 09/21/16 at 22:44; Status DC Chlorhexidine Gluconate (Chlorhexidine 2% Cloth) 3 pack FORMULATION TECHNICIAN PRN TOPICAL SEE LABEL COMMENTS; Start 09/18/16 at 22:45; Stop 09/21/16 at 22:44; Status DC Insulin Human Regular See Protocol Table ... FORMULATION TECHNICIAN PRN SQ SEE PROTOCOL TABLE ; Start 09/18/16 at 22:45; Stop 09/21/16 at 22:44; Status DC Potassium Chloride (KCl 10 Meq Premix Inj) 100 ml @ 100 mls/hr BOLUS ONCE IV Last administered on 09/19/16 11:22; Start 09/19/16 at 11:00; Stop 09/19/16 at 11:59; Status DC Midazolam HCl (Versed Inj) 2 mg STK-MED ONCE .ROUTE Last administered on 17:03; Start 09/19/16 at 17:02; Stop 09/19/16 at 17:03; Status DC Dextrose (D50w (Vial) Inj) 50 ml UNSCH PRN IV HYPOGLYCEMIA-SEE COMMENTS; Start 09/19/16 at 19:30; Status UNV Glucagon (Glucagon Inj) 1 mg UNSCH PRN OTHER HYPOGLYCEMIA-SEE COMMENTS; Start 09/19/16 at 19:30; Status UNV Insulin Aspart (NovoLOG SUPPLEMENTAL SCALE) 1 Q6HR SQ Last administered on 09/26 12:34; Start 09/20/16 at 00:00 Dextrose (D50w (Syr) Inj) 50 ml UNSCH PRN IV HYPOGLYCEMIA-SEE COMMENTS; Start 09/19/16 at 19:30 Glucagon (Glucagon Inj) 1 mg UNSCH PRN OTHER HYPOGLYCEMIA-SEE COMMENTS; Start 09/19/16 at 19:30 Labetalol HCl (Trandate Inj) 100 mg STK-MED ONCE .ROUTE Last administered on 19:30; Start 09/19/16 at 19:27; Stop 09/19/16 at 19:28; Status DC Morphine Sulfate (Morphine Inj) 3 mg Q1H PRN IV Pain 6-10 Last administered on 09/20/16 17:15; Start 09/19/16 at 20:00; Status Hold Fentanyl Citrate (fentaNYL INJ) 500 mcg STK-MED ONCE .ROUTE ; Start 09/19/16 at 19:33; Stop 09/19/16 at 19:34; Status DC Miscellaneous Information ALL NURSING DEPARTME... UNSCH PRN .XX SEE LABEL COMMENTS; Start 09/19/16 at 19:22; Stop 09/20/16 at 19:21; Status DC Multivitamins 10 ml/Folic Acid 1 mg/Insulin Human Regular 20 units/ Famotidine 40 mg/ Amino Acids/ Electrolytes/ Dextrose 2,014.4 ml @ 83 mls/hr Q24H IV- CENTRAL Last administered on 09/22/16 20:39; Start 09/20/16 at 20:00; Stop at 19:59; Status DC Fat Emulsion Intravenous 250 ml @ 10 mls/hr Q24H IV-CENTRAL Last administered on 09/30/16 20:40; Start 09/20/16 at 20:00 Potassium Chloride/Sodium Chloride (1/2 NS + KCl 20 Meq Inj) 1,000 ml @ As Directed STK-MED ONCE .ROUTE Last administered on 09/19/16 20:12; Start at 20:07; Stop 09/19/16 at 20:08; Status DC Morphine Sulfate (*morphine INJ PERIprocedure ONLY) 8 mg STK-MED ONCE .ROUTE Last administered on 09/19/16 20:09; Start 09/19/16 at 20:08; Stop 09/19/16 at 20:09; Status DC Pantoprazole Sodium 40 mg 40 mg Q24H IV PUSH Last administered on 09/19/16 20: 35; Start 09/19/16 at 21:00; Stop 09/20/16 at 09:52; Status DC Potassium Chloride/Sodium Chloride 1,000 ml @ 125 mls/hr Q8H IV Last administered on 09/20/16 03:31; Start 09/19/16 at 20:30; Stop 09/20/16 at 09:52 ; Status DC Potassium Chloride 100 ml @ As Directed STK-MED ONCE .ROUTE ; Start 09/19/16 at 21:07; Stop 09/19/16 at 21:08; Status DC Potassium Chloride 100 ml @ 50 mls/hr Q2H IV Last administered on 09/19/16 23 :35; Start 09/19/16 at 23:00; Stop 09/20/16 at 02:59; Status DC Amino Acids/ Electrolytes/ Dextrose (Clinimix E 4.25/ 25) 1,000 ml @ 83 mls/hr Q12H3M IV-CENTRAL Last administered on 09/20/16 09:33; Start 09/20/16 at 10:00 ; Stop 09/20/16 at 22:02; Status DC Acetaminophen (Ofirmev Inj) 650 mg Q6HR PRN IV FEVER; Start 09/20/16 at 09:30 Labetalol HCl (Trandate Inj) 10 mg Q4H PRN IV PUSH SYS BP GREATER THAN 160 MMHG Last administered on 09/22/16 21:09; Start 09/20/16 at 09:30 Pantoprazole Sodium 40 mg 40 mg DAILY IV PUSH Last administered on 09/20/16 10 :59; Start 09/20/16 at 10:00; Stop 09/20/16 at 14:50; Status DC Sodium Chloride 1,000 ml @ 40 mls/hr Q24H IV Last administered on 09/24/16 08 :28; Start 09/20/16 at 10:00; Stop 09/24/16 at 15:18; Status DC Magnesium Sulfate/ Dextrose (Magnesium Sulfate 1 Gm Premix) 100 ml @ 100 mls/ hr Q1H IV Last administered on 09/20/16 11:39; Start 09/20/16 at 10:00; Stop 09/20/16 at 11:59; Status DC Pantoprazole Sodium (Protonix Inj) 40 mg Q24H IV PUSH Last administered on 09/23 11:48; Start 09/20/16 at 11:30; Stop 09/24/16 at 08:32; Status DC Naloxone HCl (Narcan Inj) 0.4 mg UNSCH PRN IV RESPIRATORY RATE LESS THAN 10; Start 09/20/16 at 14:45 Morphine Sulfate (Morphine 1 Mg/ ml ERECTOR OPERATOR) 30 mg UNSCH IV Last administered on 05:57; Start 09/20/16 at 14:45 ERECTOR OPERATOR Dosage Infused (Pha) 1 1 Q8HR .XX Last administered on 10/01/16 04:43; Start 09/20/16 at 22:00 Magnesium Sulfate/ Dextrose 100 ml @ 100 mls/hr Q1H IV Last administered on 23:49; Start 09/20/16 at 20:00; Stop 09/20/16 at 21:59; Status DC Fluconazole/ Sodium Chloride 100 ml @ 100 mls/hr Q24H IV Last administered on 09/29/16 22:10; Start 09/20/16 at 22:00; Stop 09/30/16 at 11:44; Status DC Piperacillin Sod/ Tazobactam Sod 100 ml @ 200 mls/hr Q6H IV ; Start 09/20/16 at 20:45; Stop 09/20/16 at 20:47; Status DC Ciprofloxacin/ Dextrose 200 ml @ 200 mls/hr Q12H IV Last administered on 11:48; Start 09/20/16 at 23:00; Stop 09/23/16 at 12:10; Status DC Metronidazole (Flagyl 500 Mg Inj) 100 ml @ 100 mls/hr Q6H IV Last administered on 09/29/16 10:17; Start 09/20/16 at 21:00; Stop 09/29/16 at 15:53 ; Status DC Insulin Detemir (Levemir Inj) 5 units Q12HR SQ Last administered on 09/30/16 20:33; Start 09/21/16 at 09:00 Clonidine 1 patch 1 patch Q7D T-DERMAL Last administered on 09/21/16 01:17; Start 09/20/16 at 22:15; Stop 09/24/16 at 08:34; Status DC Potassium Phosphate 15 mmol/ Sodium Chloride 155 ml @ 38.75 mls/ hr ONCE ONCE IV Last administered on 09/21/16 08:54; Start 09/21/16 at 09:00; Stop at 12:59; Status DC Potassium Chloride (KCl 20 Meq Premix Inj) 100 ml @ 50 mls/hr Q2H IV Last administered on 09/21/16 09:50; Start 09/21/16 at 08:00; Stop 09/21/16 at 11:59 ; Status DC Enoxaparin Sodium 40 mg 40 mg Q24H SQ Last administered on 09/30/16 20:25; Start 09/21/16 at 20:00 Potassium Phosphate 15 mmol/ Sodium Chloride 155 ml @ 38.75 mls/ hr ONCE ONCE IV Last administered on 09/21/16 22:25; Start 09/21/16 at 20:00; Stop at 23:59; Status DC Potassium Chloride 100 ml @ 50 mls/hr Q2H IV Last administered on 09/22/16 16 :26; Start 09/22/16 at 12:00; Stop 09/22/16 at 15:59; Status DC Magnesium Sulfate/ Dextrose (Magnesium Sulfate 1 Gm Premix) 100 ml @ 100 mls/ hr ONCE ONCE IV Last administered on 09/22/16 14:24; Start 09/22/16 at 12:00 ; Stop 09/22/16 at 12:59; Status DC Enalaprilat 1.25 mg 1.25 mg Q6H PRN IV PUSH SYS BP GREATER THAN 160 MMHG Last administered on 09/27/16 13:20; Start 09/22/16 at 21:30 Sodium Chloride 11 meq/Sodium Acetate 59 meq/ Potassium Chloride 20 meq/ Potassium Phosphate 60 meq/ Magnesium Chloride 10 meq/ Calcium Chloride 9 meq/ Multivitamins 10 ml/Folic Acid 1 mg/Famotidine 40 mg/Insulin Human Regular 20 units/ Amino Acids/ Dextrose 2,081.9801 ml @ 83 mls/hr Q24H IV-CENTRAL Last administered on 09/24/16 21:45; Start 09/23/16 at 20:00; Stop 09/25/16 at 19:59 ; Status DC Aztreonam 2000 mg/ Sodium Chloride 100 ml @ 200 mls/hr Q8H IV ; Start 09/23/16 at 14:00; Stop 09/23/16 at 14:00; Status DC Azithromycin/ Sodium Chloride (Zithromax Inj/ NS 250 ml Inj) 250 ml @ 250 mls/ hr Q24H IV Last administered on 09/28/16 14:52; Start 09/23/16 at 13:00; Stop 09/29/16 at 09:28; Status DC Miscellaneous Medication (ASP Crit: Doc allergy to Penicillin/ Cephalosp) 1 UNSCH X1 PRN .XX PHARMACY DOCUMENTATION; Start 09/23/16 at 12:15; Stop at 12:15; Status DC Miscellaneous Medication (ASP Crit: Necrotizing pancreatitis) 1 UNSCH X1 PRN .XX PHARMACY DOCUMENTATION; Start 09/23/16 at 12:15; Stop 09/24/16 at 12:15; Status DC Miscellaneous Medication 1 1 UNSCH X1 PRN XX PHARMACY DOCUMENTATION; Start at 12:15; Stop 09/24/16 at 12:15; Status DC Ertapenem/Sodium Chloride (INVanz INJ/NS Inj) 100 ml @ 200 mls/hr Q24H IV Last administered on 09/24/16 15:33; Start 09/23/16 at 14:00; Stop 09/25/16 at 09:07; Status DC Miscellaneous Medication [place] [place] [facility] [place] 1 UNSCH X1 PRN XX PHARMACY DOCUMENTATION; Start 09/23/16 at 12:15; Stop 09/24/16 at 12:15; Status DC Propofol (Diprivan 200 Mg/20 ml Inj) 200 mg STK-MED ONCE IV ; Start 09/19/16 at 12:00; Stop 09/23/16 at 14:53; Status DC Phenylephrine HCl 1000 mcg 1,000 mcg STK-MED ONCE IV ; Start 09/19/16 at 12:00; Stop 09/23/16 at 14:53; Status DC Lactated Ringer's 1,000 ml @ As Directed STK-MED ONCE IV ; Start 09/19/16 at 12 :00; Stop 09/23/16 at 14:53; Status DC Sodium Chloride (NS 500 ml Inj) 500 ml @ As Directed STK-MED ONCE IV ; Start at 12:00; Stop 09/23/16 at 14:53; Status DC Iohexol (Omnipaque 350 Inj) 100 ml STK-MED ONCE IV Last administered on 06:59; Start 09/24/16 at 06:59; Stop 09/24/16 at 07:00; Status DC Clonidine 1 patch 1 patch Q7D T-DERMAL Last administered on 09/24/16 11:53; Start 09/24/16 at 11:00 Pharmacy Profile Note (Vancomycin Consult Pharmacy) 0 ml @ 0 mls/hr UNSCH OTHER ; Start 09/24/16 at 09:45; Stop 09/29/16 at 15:53; Status DC Miscellaneous Information 1 1 Q7D T-DERMAL Last administered on 09/24/16 11:00 ; Start 09/24/16 at 11:00 Vancomycin HCl/ Sodium Chloride (Vancomycin Inj/ NS 250 ml Inj) 262.5 ml @ 250 mls/hr Q12H IV Last administered on 09/26/16 01:06; Start 09/24/16 at 12:00; Stop 09/26/16 at 02:02; Status DC Miscellaneous Information SPECIFIC LAB TO BE DRAWN:VANCO TROUGH DATE TO... ONCE ONCE .XX Last administered on 09/25/16 23:45; Start 09/25/16 at 23:45; Stop 09/25/16 at 23:46; Status DC Potassium Phosphate 15 mmol/ Sodium Chloride 155 ml @ 38.75 mls/ hr ONCE ONCE IV Last administered on 09/24/16 17:23; Start 09/24/16 at 16:00; Stop at 19:59; Status DC Ertapenem/Sodium Chloride (INVanz INJ/NS Inj) 50 ml @ 200 mls/hr Q24H IV Last administered on 09/30/16 17:04; Start 09/25/16 at 16:00 Miscellaneous Medication PLEASE CONCENTRATE ALL... UNSCH OTHER ; Start 09/25/16 at 09:15 Sodium Acetate 59 meq/Potassium Chloride 20 meq/ Potassium Phosphate 90 meq/ Magnesium Chloride 10 meq/ Calcium Chloride 9 meq/ Multivitamins 10 ml/Folic Acid 1 mg/Famotidine 40 mg/Insulin Human Regular 20 units/ Amino Acids/ Dextrose 2,086.0482 ml @ 83 mls/hr Q24H IV-CENTRAL ; Start 09/25/16 at 09:30; Status Cancel Sodium Acetate 59 meq/Potassium Chloride 20 meq/ Potassium Phosphate 90 meq/ Magnesium Chloride 10 meq/ Calcium Chloride 9 meq/ Multivitamins 10 ml/Folic Acid 1 mg/Famotidine 40 mg/Insulin Human Regular 20 units/ Amino Acids/ Dextrose 2,086.0482 ml @ 83 mls/hr Q24H IV-CENTRAL Last administered on 20:35; Start 09/25/16 at 20:00; Stop 09/27/16 at 09:05; Status DC Vancomycin HCl/ Sodium Chloride (Vancomycin Inj/ NS 500 ml Inj) 515 ml @ 250 mls/hr Q12H IV Last administered on 09/29/16 12:06; Start 09/26/16 at 12:00; Stop 09/29/16 at 15:53; Status DC Miscellaneous Information SPECIFIC LAB TO BE AZUCENA... ONCE ONCE .XX ; Start 09/27 at 23:45; Stop 09/27/16 at 23:46; Status DC Diatrizoate Meglum/ Diatrizoate Sod 120 ml 120 ml STK-MED ONCE NG ; Start at 10:21; Stop 09/26/16 at 10:22; Status DC Potassium Acetate/ Potassium Phosphate/ Magnesium Chloride/Calcium Chloride/ Multivitamins/ Folic Acid/ Famotidine/ Insulin Human Regular/Amino Acids/ Dextrose (Potassium Acetate Inj/ Potassium Phosphate Inj/ Magnesium Chloride Inj / Calcium Chlor... 2,080.5937 ml @ 83 mls/hr Q24H IV-CENTRAL Last administered on 09/30/16 20:34; Start 09/27/16 at 20:00 Benzocaine/ Menthol 1 lozenge 1 lozenge UNSCH PRN BUCCAL sore throat; Start at 16:00 Sodium Chloride/ Sterile Water (Sodium Chloride 23.4% Inj/Sterile Water For Inj ) 1,009.625 ml @ 15 mls/hr Q24H IV Last administered on 09/30/16 17:00; Start 09/28/16 at 17:00 Miscellaneous Information SPECIFIC LAB TO BE ... ONCE ONCE .XX ; Start 10/01 at 23:45; Stop 10/01/16 at 23:46; Status Cancel Phenol (Chloraseptic [place]) 2 spray Q2H PRN OROPHARYNG sore throat; Start 09/30 at 10:00 Diatrizoate Meglum/ Diatrizoate Sod 18 ml 18 ml ONCE ONCE PO Last administered on 09/30/16 12:55; Start 09/30/16 at 11:30; Stop 09/30/16 at 11:31 ; Status DC Micafungin Sodium 100 mg/Sodium Chloride 100 ml @ 100 mls/hr Q24H IV Last administered on 09/30/16 12:55; Start 09/30/16 at 13:00 Linezolid (Zyvox 600 Mg Premix) 300 ml @ 300 mls/hr Q12H IV Last administered on 09/30/16 23:25; Start 09/30/16 at 12:00 Iohexol (Omnipaque 350 Inj) 97 ml STK-MED ONCE IV ; Start 09/30/16 at 19:59; Stop 09/30/16 at 20:00; Status DC A/P Assessment and Plan A/P 1. Pancreatic Abscess: recent "pancreas surgery" at by Dr. Mathias approx [address] ago for pseudocyst. 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 Patient is sp exploratory laparotomy, irrigation and drainage of pancreatic abscess. Management as per general surgery. Pain control with morphine ERECTOR OPERATOR. Continue IV antibiotics see below. Follow-up upper GI series shows suspected gastric perforation at the distal inferior stomach. Per general surgery, continue ice chips and TPN. Absolute nothing by mouth. For repeat upper GI series on Monday per general surgery. 2. Hypercalcemia: Improving. IVF for hydration. 3. Leukocytosis: started on Micafungin, Ertapenem and Zyvox- monitor CBC_ ID following. 4. Alcohol Abuse: reports h/o alcohol abuse, however states he quit. Continue to monitor for possible withdrawal. 5. COPD: Chronic Respiratory Failure. Stable. Resume home MDI/Neb. continue O2 to keep o2 sat more than 92%. 6. DM: Sliding scale w/ Accu-Cheks. Hold Metformin. Will continue insulin Levemir and regular in the TPN. 7. HTN: Improving continue clonidine patch to TTS 3. 8.mild hyperkalemia/ hyperphosphatemia; will adjust through TPN and continue to monitor- d/w the pharmacist. DVT prophylaxis with subq Lovenox. iRck Rahman MD Oct 01, 2016 08:32
[2016-10-01] MEDS: BUDESONIDE-FORMOTEROL 160/4.5 MCG INHALER INH SCH ×2 (09:00→21:05)
[2016-10-01] MEDS: SODIUM CHLORIDE 0.9% FLUSH 10 ML FLUSH IV FLUSH SCH ×2 (09:00→21:00)
[2016-10-01] MEDS: INSULIN DETEMIR 100 UNITS/ML VIAL SQ SCH ×2 (09:00→21:10)
--- NOTE | 2016-10-01 09:07 | HHI.IDPN ---
Subjective Subjective Remarks Patient is a 66-year-old male, admitted to the hospital September 19 with abdominal pain. Patient has had prior history of severe pancreatitis, and a large pancreatic pseudocyst, initially had his first pancreatic necrosectomy at [facility] the middle of August. He was discharged and readmitted here at [place], and he underwent I&D of a pancreatic abscess, and repeat necrosectomy. Cultures from surgery had Lou and Escherichia coli. A EDER drain was left in place. Patient has had persistent leukocytosis, but his WBC had gone up to 29 is has remained 29,000. He currently has a central line in the right neck. He has the EDER in place and has minimal output. He complains of some abdominal pain. No fever. Notes reviewed On TPN On NPO Mild cough No CP No diarrhea Voiding ok Repeat C/S from EDER pending Repeat CT A/P has multiple fluid collections, some with air, some bigger Antibiotics Micafungin Zyvox Invanz Lines RIJ TLC PIV Past Medical History 1. Hepatitis C. 2. COPD. 3. Diabetes mellitus. 4. Alcohol abuse. 5. Congestive heart failure. 6. COPD. 7. History of appendectomy. 8. Patient underwent pancreatic necrosectomy on August 26, 2016. SOCIAL HISTORY: The patient smoked two packs of cigarettes a day up until June of 2016. Alcohol use up until April of 2016. No illicit drugs. Allergies: Coded Allergies: Penicillin (Verified Allergy, Severe, HIVES, 07/07/16) Objective . Vital Signs Date Time Temp Pulse Resp B/P Pulse Ox O2 Delivery O2 Flow Rate FiO2 10/01/16 04:43 14 10/01/16 04:00 96.5 95 20 137/75 98 09/30/16 23:44 98.0 96 18 136/72 99 09/30/16 22:00 14 09/30/16 20:23 96 Nasal Cannula 2.00 09/30/16 20:00 98.3 91 18 128/73 98 09/30/16 20:00 98 Nasal Cannula 2.00 09/30/16 16:00 96.2 89 16 121/67 99 09/30/16 14:00 16 09/30/16 12:00 99.4 96 24 148/71 97 09/30/16 10:13 97 Nasal Cannula 2.00 09/30/16 09:23 Nasal Cannula 2.00 09/30/16 09/30/16 10/01/16 15:00 23:00 07:00 Intake Total 4278 ml 1213 ml Output Total 150 ml 850 ml 1000 ml Balance -150 ml 3428 ml 213 ml Intake Oral 0 ml 0 ml IV Total 1494 ml 475 ml TPN/PPN 2485 ml 659 ml Lipid 299 ml 79 ml Output Urine Total 150 ml 700 ml 900 ml Gastric Drainage Total 150 ml 100 ml Drainage Total 0 ml # Voids 1 2 # Bowel Movements 0 0 1 . Laboratory Tests Test 09/30/16 10/01/16 05:00 04:55 White Blood Count 29.4 TH/MM3 29.5 TH/MM3 Red Blood Count 3.66 MIL/MM3 3.69 MIL/MM3 Hemoglobin 8.7 GM/DL 8.6 GM/DL Hematocrit 26.7 % 26.8 % Mean Corpuscular Volume 73.0 FL 72.8 FL Mean Corpuscular Hemoglobin 23.8 PG 23.2 PG Mean Corpuscular Hemoglobin 32.5 % 31.9 % Concent Red Cell Distribution Width 16.4 % 16.7 % Platelet Count 331 TH/MM3 357 TH/MM3 Mean Platelet Volume 10.4 FL 9.9 FL Neutrophils (%) (Auto) 81.1 % 80.4 % Lymphocytes (%) (Auto) 10.0 % 9.2 % Monocytes (%) (Auto) 6.9 % 8.0 % Eosinophils (%) (Auto) 1.8 % 2.2 % Basophils (%) (Auto) 0.2 % 0.2 % Neutrophils # (Auto) 23.9 TH/MM3 23.7 TH/MM3 Lymphocytes # (Auto) 2.9 TH/MM3 2.7 TH/MM3 Monocytes # (Auto) 2.0 TH/MM3 2.4 TH/MM3 Eosinophils # (Auto) 0.5 TH/MM3 0.7 TH/MM3 Basophils # (Auto) 0.1 TH/MM3 0.1 TH/MM3 CBC Comment DIFF FINAL AUTO DIFF Differential Comment FINAL DIFF MANUAL Differential Total Cells 100 Counted Neutrophils % (Manual) 74 % Band Neutrophils % 2 % Lymphocytes % 9 % Monocytes % 12 % Eosinophils % 2 % Neutrophils # (Manual) 22.7 TH/MM3 Myelocytes 1 % Platelet Estimate HIGH Platelet Morphology Comment ENLARGED Acanthocytes OCC Laboratory Tests Test 09/30/16 10/01/16 05:00 04:55 Sodium Level 141 MEQ/L 133 MEQ/L Potassium Level 5.0 MEQ/L 5.5 MEQ/L Chloride Level 107 MEQ/L 99 MEQ/L Carbon Dioxide Level 25.8 MEQ/L 27.9 MEQ/L Anion Gap 8 MEQ/L 6 MEQ/L Blood Urea Nitrogen 16 MG/DL 22 MG/DL Creatinine 0.70 MG/DL 1.01 MG/DL Estimat Glomerular Filtration 137 ML/MIN 90 ML/MIN Rate Random Glucose 116 MG/DL 121 MG/DL Calcium Level 9.4 MG/DL 9.7 MG/DL Total Bilirubin 0.2 MG/DL 0.2 MG/DL Aspartate Amino Transf 15 U/L 14 U/L (AST/SGOT) Alanine Aminotransferase 14 U/L 12 U/L (ALT/SGPT) Alkaline Phosphatase 90 U/L 94 U/L Total Protein 6.6 GM/DL 7.2 GM/DL Albumin 2.4 GM/DL 2.5 GM/DL Phosphorus Level 5.0 MG/DL Magnesium Level 2.0 MG/DL Microbiology Date/Time Procedure Status Source Growth 09/30/16 18:00 Gram Stain - Final Resulted Wound Abdomen 09/30/16 18:00 Wound Culture Resulted Wound Abdomen Pending Imaging Chest X-Ray 09/30/16 0000 Signed Impressions: Service Date/Time: Friday, September 30, 2016 13:23 - CONCLUSION: 1. Improved left lower lobe airspace disease. Elías Daugherty MD Abdomen/Pelvis CT 09/30/16 0000 Signed Impressions: Service Date/Time: Friday, September 30, 2016 18:41 - CONCLUSION: 1. Multiple fluid collections seen associated with the pancreas and the root of the mesentery. The fluid collection associated with the pancreatic tail has increased in size from the prior study while the remaining collections are essentially stable. Hubert Rodrigues Jr., MD Upper GI Series 09/26/16 0600 Signed Impressions: Service Date/Time: Monday, September 26, 2016 08:53 - CONCLUSION: Suspected gastric perforation at the inferior distal aspect of the stomach with a collection seen inferior to the distal stomach and anterior to the duodenum. Mason Monge MD Physical Exam GENERAL: Awake and alert, thin gentleman, not in respiratory distress. SKIN: Warm and dry, no rash. HEENT: Pale conjunctivae, pupils equal, full EOM. No nasal drainage. No sinus tenderness. Slightly dry oral mucosa with some white coating on the tongue. NECK: Supple, no tenderness, no lymphadenopathy. Line in the right side looks okay. LUNGS: Equal breath sounds, decreased at bases. HEART: Irregular rate and rhythm. No murmurs, rubs or gallops. ABDOMEN: Slightly distended abdomen, bowel sounds are hypoactive. There is a midline incision with retention sutures, dry with no redness or drainage. There is a EDER on the right side, with a small amount of reddish-brown fluid. There is diffuse abdominal tenderness, but no guarding or rebound. There seemed to be more distention on the right side of the abdomen done on the left side. . EXTREMITIES: No clubbing or cyanosis or edema. No calf tenderness. No joint effusion. NEUROLOGIC: Alert and oriented. No gross focal findings. PSYCHIATRIC: Patient calm and cooperative. LINE: NO evidence of infection Assessment & Plan Remarks IMPRESSION: Pancreatic abscess, status post drainage, and repeat pancreatic mass necrosectomy - intraop C/S Lou and E coli Leukocytosis, persistent has worsened, ?due to undrained multiple fluid collections Penicillin allergy. - tolerating Carbapenems RECOMMENDATIONS: Will D/W surgery, ?IR placement of drains for fluid collections Follow new C/S Change Invanz to merem Continue Micafungin Also on Zyvox - follow CBC 2 BC today UA and C/S Follow C/S and adjust Abx Monitor progress Melanie Calderon MD Oct 01, 2016 09:07
[2016-10-01] MEDS ORDERED: MISCELLANEOUS PHARMACY INFORMATION XX PRN ×2 (09:15)
[2016-10-01] MEDS ORDERED: ASP: Necrotizing pancreatitis PRN (09:15)
[2016-10-01] MEDS: MEROPENEM INJ 1,000 MG in SODIUM CHLORIDE 0.9% INJ 100 ML IV SCH ×2 (09:55→17:58)
[2016-10-01] MEDS: cloNIDine HCL 0.3 MG/24 HR PATCH T-DERMAL SCH (09:55)
[2016-10-01] MEDS: REMOVE OLD CATAPRES (CLONIDINE) PATCH T-DERMAL SCH (09:56)
--- NOTE | 2016-10-01 11:36 | HHI.PR ---
Subjective Subjective Notes states he feel ok, no n/v, no fevers Objective Vitals/I&O Vital Signs Date Time Temp Pulse Resp B/P Pulse Ox O2 Delivery O2 Flow Rate FiO2 10/01/16 09:30 Nasal Cannula 2.00 10/01/16 08:00 98.2 92 24 136/77 98 09/29/16 21:00 21 Labs Laboratory Tests Test 10/01/16 04:55 White Blood Count 29.5 Red Blood Count 3.69 Hemoglobin 8.6 Hematocrit 26.8 Mean Corpuscular Volume 72.8 Mean Corpuscular Hemoglobin 23.2 Mean Corpuscular Hemoglobin 31.9 Concent Red Cell Distribution Width 16.7 Platelet Count 357 Mean Platelet Volume 9.9 Neutrophils (%) (Auto) 80.4 Lymphocytes (%) (Auto) 9.2 Monocytes (%) (Auto) 8.0 Eosinophils (%) (Auto) 2.2 Basophils (%) (Auto) 0.2 Neutrophils # (Auto) 23.7 Lymphocytes # (Auto) 2.7 Monocytes # (Auto) 2.4 Eosinophils # (Auto) 0.7 Basophils # (Auto) 0.1 CBC Comment AUTO DIFF Differential Total Cells 100 Counted Neutrophils % (Manual) 74 Band Neutrophils % 2 Lymphocytes % 9 Monocytes % 12 Eosinophils % 2 Neutrophils # (Manual) 22.7 Myelocytes 1 Differential Comment FINAL DIFF MANUAL Platelet Estimate HIGH Platelet Morphology Comment ENLARGED Acanthocytes OCC Sodium Level 133 Potassium Level 5.5 Chloride Level 99 Carbon Dioxide Level 27.9 Anion Gap 6 Blood Urea Nitrogen 22 Creatinine 1.01 Estimat Glomerular Filtration 90 Rate Random Glucose 121 Calcium Level 9.7 Phosphorus Level 5.0 Magnesium Level 2.0 Total Bilirubin 0.2 Aspartate Amino Transf 14 (AST/SGOT) Alanine Aminotransferase 12 (ALT/SGPT) Alkaline Phosphatase 94 Total Protein 7.2 Albumin 2.5 Date/Time Procedure Status Source Growth 10/01/16 10:20 Aerobic Blood Culture Received Blood Line Pending 10/01/16 10:20 Anaerobic Blood Culture Received Blood Line Pending 09/30/16 18:00 Gram Stain - Final Resulted Wound Abdomen 09/30/16 18:00 Wound Culture Resulted Wound Abdomen Pending Cardiovascular: Regular Lungs: Clear Abdomen: Non-distended Narrative Exam retention sutures in place, no wound drainage. EDER with minimal output A/P Assessment and Plan s/p pancreatitic debridement FU CT noted - will defer to DR. Bowman on fluid collections and UGI results - patient is clinically stable DC CVL and place PICC Dean Zafar MD Oct 01, 2016 11:36
[2016-10-01] MEDS: MICAFUNGIN INJ 100 MG in SODIUM CHLORIDE 0.9% INJ 100 ML IV SCH (13:18)
[2016-10-01] MEDS: LINEZOLID 600 MG PREMIX 300 ML IV SCH ×2 (13:19→23:34)
[2016-10-01] MEDS ORDERED: SODIUM CHLORIDE 0.9% FLUSH 10 ML FLUSH IV FLUSH PRN (17:15)
--- NOTE | 2016-10-01 17:35 | RADRPT ---
EXAM DATE/TIME: 10/01/2016 17:03 [place] COMPARISON: CHEST SINGLE AP, September 30, 2016, 13:23. INDICATIONS : PICC line placement MEDICAL HISTORY : Chronic obstructive pulmonary disease. Hypertension SURGICAL HISTORY : Appendectomy. Central line ENCOUNTER: Subsequent ACUITY: 3 days PAIN SCORE: Non-responsive. LOCATION: Left chest FINDINGS: A PICC line placement has been performed with its tip in the superior vena cava. Right internal jugu lar central line has its tip in the superior vena cava. There is no pneumothorax. A nasogastric tub e has its tip below the diaphragm. The heart is stable. Perihilar atelectasis is noted bilaterally. CONCLUSION: 1. Left-sided PICC line has its tip in the superior vena cava in good position. 2. Perihilar atelectasis is stable. Adiel Noland MD on October 01, 2016 at 17:25 Board Certified Radiologist. This report was verified electronically.
[2016-10-01] MEDS: [UNRECOGNIZED DRUG - OTHER] IV-CENTRAL SCH ×7 (17:57)
[2016-10-01] MEDS: MAGNESIUM CHLORIDE IV-CENTRAL SCH ×7 (17:57)
[2016-10-01] MEDS: CALCIUM CHLORIDE IV-CENTRAL SCH ×7 (17:57)
[2016-10-01] MEDS: MULTIVITAMIN IV-CENTRAL SCH ×7 (17:57)
[2016-10-01 20:00] VITALS: BP 141/91; PULSE 96; RESP 20; TEMP 99.8; O2SAT 99
[2016-10-01 20:14] LABS: BLOOD, URINE NEG (NEG); COMMENT (UR) CULT NOT INDICATED; CULTURE IF INDICATED CULT NOT INDICATED; GLUCOSE,URINE NEG (NEG); KETONE, URINE NEG (NEG); MUCUS URINE FEW /lpf (OCC); NITRITE,URINE NEG (NEG); URINE COLOR LIGHT-YELLOW (YELLW/STRAW)
[2016-10-01 21:03] VITALS: O2SAT 99
[2016-10-01] MEDS: FAT EMULSION 20% INJ 250 ML (@10 mls/hr) IV-CENTRAL SCH (21:04)
[2016-10-01] MEDS: ENOXAPARIN SODIUM 40 MG/0.4 ML SYRINGE SQ SCH (21:05)
[2016-10-01] MEDS: SODIUM CHLORIDE 23.4% INJ 38.5 MEQ in WATER STERILE FOR INJ 1,000 ML IV SCH (23:36)
[2016-10-01] MEDS ORDERED: PHARMACY ORDERED LAB ONE (23:45)
[2016-10-02] VITALS (7 sets, daily range): BP systolic 109–137; BP diastolic 69–79; PULSE 77–95; RESP 16–18; TEMP 95.6–98.7; O2SAT 94–99
[2016-10-02] MEDS: MEROPENEM INJ 1,000 MG in SODIUM CHLORIDE 0.9% INJ 100 ML IV SCH ×3 (02:26→17:03)
[2016-10-02] MEDS: INSULIN ASPART SUPPLEMENTAL SCALE SQ SCH ×4 (05:21→23:22)
[2016-10-02] MEDS: PCA - TOTAL MG MORPHINE DELIVERED PER SHIFT SCH ×3 (05:25→22:00)
[2016-10-02 06:20] LABS: AUTOMATED NEUTROPHIL # 19.3 TH/MM3 (1.8-7.7); BASOPHIL # 0.1 TH/MM3 (0-0.2); BASOPHIL % 0.3 % (0.0-2.0); EOSINOPHIL # 0.6 TH/MM3 (0-0.4); EOSINOPHIL % 2.6 % (0.0-4.0); HEMATOCRIT 26.8 % (39.0-51.0); LYMPH % 9.5 % (9.0-44.0); LYMPHOCYTE # 2.4 TH/MM3 (1.0-4.8); MEAN CELL VOLUME 72.7 FL (80.0-100.0); MEAN CORPUSCULAR HEMOGLOBIN 23.6 PG (27.0-34.0); MEAN CORPUSCULAR HGB CONC 32.5 % (32.0-36.0); MONO % 10.2 % (0.0-8.0); NEUT % 77.4 % (16.0-70.0); PLATELET COUNT 366 TH/MM3 (150-450); RED BLOOD COUNT 3.68 MIL/MM3 (4.50-5.90); RED CELL DISTRIBUTION WIDTH 16.8 % (11.6-17.2)
[2016-10-02 06:22] LABS: HEMO FLAGS AUTO DIFF
[2016-10-02 06:38] LABS: BICARBONATE 24.1 MEQ/L (21.0-32.0)
[2016-10-02 06:53] LABS: OVALOCYTES 1+ (NORMAL); PLATELET ESTIMATE SMEAR HIGH (NORMAL); PLATELET MORPHOLOGY NORMAL (NORMAL); SCAN/DIFF AUTO DIFF CONFIRMED; TARGET CELLS 1+ (NORMAL)
[2016-10-02] MEDS: BUDESONIDE-FORMOTEROL 160/4.5 MCG INHALER INH SCH ×2 (07:50→20:32)
[2016-10-02] MEDS: SODIUM CHLORIDE 0.9% FLUSH 10 ML FLUSH IV FLUSH SCH ×3 (07:51→20:29)
[2016-10-02] MEDS: INSULIN DETEMIR 100 UNITS/ML VIAL SQ SCH ×2 (08:00→20:36)
--- NOTE | 2016-10-02 09:37 | HHI.IDPN ---
Subjective Subjective Remarks Patient is a 66-year-old male, admitted to the hospital September 19 with abdominal pain. Patient has had prior history of severe pancreatitis, and a large pancreatic pseudocyst, initially had his first pancreatic necrosectomy at [facility] the middle of August. He was discharged and readmitted here at [place], and he underwent I&D of a pancreatic abscess, and repeat necrosectomy. Cultures from surgery had Lou and Escherichia coli. A EDER drain was left in place. Patient has had persistent leukocytosis, but his WBC had gone up to 29 is has remained 29,000. He currently has a central line in the right neck. He has the EDER in place and has minimal output. He complains of some abdominal pain. No fever. Notes reviewed Low grade temps Not much from EDER drain On TPN On NPO Mild cough No CP No diarrhea Voiding ok Repeat C/S from EDER negative so far Repeat CT A/P has multiple fluid collections, some with air, some bigger Antibiotics Micafungin Zyvox Meropenem Lines RIJ TLC PIV Past Medical History 1. Hepatitis C. 2. COPD. 3. Diabetes mellitus. 4. Alcohol abuse. 5. Congestive heart failure. 6. COPD. 7. History of appendectomy. 8. Patient underwent pancreatic necrosectomy on August 26, 2016. SOCIAL HISTORY: The patient smoked two packs of cigarettes a day up until June of 2016. Alcohol use up until April of 2016. No illicit drugs. Allergies: Coded Allergies: Penicillin (Verified Allergy, Severe, HIVES, 07/07/16) Objective . Vital Signs Date Time Temp Pulse Resp B/P Pulse Ox O2 Delivery O2 Flow Rate FiO2 10/02/16 07:50 Nasal Cannula 2.00 10/02/16 05:25 18 10/02/16 00:00 98.7 95 18 137/75 96 10/01/16 22:00 18 10/01/16 21:03 99 21 10/01/16 20:00 99.8 96 20 141/91 99 10/01/16 20:00 99 Nasal Cannula 2.00 10/01/16 10/01/16 10/02/16 15:00 23:00 07:00 Intake Total 1168 ml Output Total 1025 ml 250 ml 200 ml Balance 143 ml -250 ml -200 ml IV Total 347 ml TPN/PPN 733 ml Lipid 88 ml Output Urine Total 675 ml 250 ml 200 ml Gastric Drainage Total 300 ml Drainage Total 50 ml # Bowel Movements 0 1 . Laboratory Tests Test 10/01/16 10/02/16 04:55 05:48 White Blood Count 29.5 TH/MM3 25.0 TH/MM3 Red Blood Count 3.69 MIL/MM3 3.68 MIL/MM3 Hemoglobin 8.6 GM/DL 8.7 GM/DL Hematocrit 26.8 % 26.8 % Mean Corpuscular Volume 72.8 FL 72.7 FL Mean Corpuscular Hemoglobin 23.2 PG 23.6 PG Mean Corpuscular Hemoglobin 31.9 % 32.5 % Concent Red Cell Distribution Width 16.7 % 16.8 % Platelet Count 357 TH/MM3 366 TH/MM3 Mean Platelet Volume 9.9 FL 9.6 FL Neutrophils (%) (Auto) 80.4 % 77.4 % Lymphocytes (%) (Auto) 9.2 % 9.5 % Monocytes (%) (Auto) 8.0 % 10.2 % Eosinophils (%) (Auto) 2.2 % 2.6 % Basophils (%) (Auto) 0.2 % 0.3 % Neutrophils # (Auto) 23.7 TH/MM3 19.3 TH/MM3 Lymphocytes # (Auto) 2.7 TH/MM3 2.4 TH/MM3 Monocytes # (Auto) 2.4 TH/MM3 2.5 TH/MM3 Eosinophils # (Auto) 0.7 TH/MM3 0.6 TH/MM3 Basophils # (Auto) 0.1 TH/MM3 0.1 TH/MM3 CBC Comment AUTO DIFF AUTO DIFF Differential Total Cells 100 Counted Neutrophils % (Manual) 74 % Band Neutrophils % 2 % Lymphocytes % 9 % Monocytes % 12 % Eosinophils % 2 % Neutrophils # (Manual) 22.7 TH/MM3 Myelocytes 1 % Differential Comment FINAL DIFF AUTO DIFF MANUAL CONFIRMED Platelet Estimate HIGH HIGH Platelet Morphology Comment ENLARGED NORMAL Acanthocytes OCC Target Cells 1+ Ovalocytes 1+ Laboratory Tests Test 10/01/16 10/02/16 04:55 05:48 Sodium Level 133 MEQ/L 131 MEQ/L Potassium Level 5.5 MEQ/L 5.0 MEQ/L Chloride Level 99 MEQ/L 99 MEQ/L Carbon Dioxide Level 27.9 MEQ/L 24.1 MEQ/L Anion Gap 6 MEQ/L 8 MEQ/L Blood Urea Nitrogen 22 MG/DL 28 MG/DL Creatinine 1.01 MG/DL 1.14 MG/DL Estimat Glomerular Filtration 90 ML/MIN 78 ML/MIN Rate Random Glucose 121 MG/DL 106 MG/DL Calcium Level 9.7 MG/DL 10.1 MG/DL Phosphorus Level 5.0 MG/DL Magnesium Level 2.0 MG/DL Total Bilirubin 0.2 MG/DL Aspartate Amino Transf 14 U/L (AST/SGOT) Alanine Aminotransferase 12 U/L (ALT/SGPT) Alkaline Phosphatase 94 U/L Total Protein 7.2 GM/DL Albumin 2.5 GM/DL Microbiology Date/Time Procedure Status Source Growth 09/30/16 18:00 Gram Stain - Final Resulted Wound Abdomen 09/30/16 18:00 Wound Culture - Preliminary Resulted Wound Abdomen NO GROWTH IN 24 HOURS. 10/01/16 10:20 Aerobic Blood Culture Received Blood Line Pending 10/01/16 10:20 Anaerobic Blood Culture Received Blood Line Pending 10/02/16 05:48 Aerobic Blood Culture Received Blood Peripheral Pending 10/02/16 05:48 Anaerobic Blood Culture Received Blood Peripheral Pending Imaging Chest X-Ray 09/30/16 0000 Signed Impressions: Service Date/Time: Friday, September 30, 2016 13:23 - CONCLUSION: 1. Improved left lower lobe airspace disease. Elías Daugherty MD Abdomen/Pelvis CT 09/30/16 0000 Signed Impressions: Service Date/Time: Friday, September 30, 2016 18:41 - CONCLUSION: 1. Multiple fluid collections seen associated with the pancreas and the root of the mesentery. The fluid collection associated with the pancreatic tail has increased in size from the prior study while the remaining collections are essentially stable. Hubert Rodrigues Jr., MD Upper GI Series 09/26/16 0600 Signed Impressions: Service Date/Time: Monday, September 26, 2016 08:53 - CONCLUSION: Suspected gastric perforation at the inferior distal aspect of the stomach with a collection seen inferior to the distal stomach and anterior to the duodenum. Mason Monge MD Physical Exam GENERAL: Awake and alert, not in respiratory distress. SKIN: Warm and dry, no rash. HEENT: Pale conjunctivae, pupils equal, full EOM. No nasal drainage. No sinus tenderness. Slightly dry oral mucosa with some white coating on the tongue. NECK: Supple, no tenderness, no lymphadenopathy. Line in the right side looks okay. LUNGS: Equal breath sounds, decreased at bases. HEART: Irregular rate and rhythm. No murmurs, rubs or gallops. ABDOMEN: Slightly distended abdomen, bowel sounds are hypoactive. There is a midline incision with retention sutures, dry with no redness or drainage. There is a EDER on the right side, with a small amount of reddish-brown fluid. There is diffuse abdominal tenderness, but no guarding or rebound. There seemed to be more distention on the right side of the abdomen done on the left side. . EXTREMITIES: No clubbing or cyanosis or edema. No calf tenderness. No joint effusion. NEUROLOGIC: Alert and oriented. No gross focal findings. PSYCHIATRIC: Patient calm and cooperative. LINE: NO evidence of infection Assessment & Plan Remarks IMPRESSION: Pancreatic abscess, status post drainage, and repeat pancreatic mass necrosectomy - intraop C/S Lou and E coli Leukocytosis, persistent has worsened, ?due to undrained multiple fluid collections Abnormal UGIS, ?gastric perforation Penicillin allergy. - tolerating Carbapenems RECOMMENDATIONS: ?IR placement of drains for fluid collections GS following, ?repeat UGIS to reeval abnormality Follow new C/S Continue Merem Continue Micafungin Also on Zyvox - follow CBC - possibly D/C if EDER C/S no MRSA Follow temps Monitor progress Melanie Calderon MD Oct 02, 2016 09:37
--- NOTE | 2016-10-02 10:01 | HHI.PR ---
Subjective Remarks f/u; pancreatic abscess somewhat ill looking but in no acute distress. low garde fever last night. denies abdominal pain, nausea or vomiting. Objective Vitals Vital Signs Date Time Temp Pulse Resp B/P Pulse Ox O2 Delivery O2 Flow Rate FiO2 10/02/16 07:50 Nasal Cannula 2.00 10/02/16 05:25 18 10/02/16 00:00 98.7 95 18 137/75 96 10/01/16 22:00 18 10/01/16 21:03 99 21 10/01/16 20:00 99.8 96 20 141/91 99 10/01/16 20:00 99 Nasal Cannula 2.00 I/O 10/01/16 10/01/16 10/01/16 10/02/16 10/02/16 10/02/16 07:00 15:00 23:00 07:00 15:00 23:00 Intake Total 1213 ml 1168 ml Output Total 1000 ml 1025 ml 250 ml 200 ml 5 ml Balance 213 ml 143 ml -250 ml -200 ml -5 ml Intake Oral 0 ml IV Total 475 ml 347 ml TPN/PPN 659 ml 733 ml Lipid 79 ml 88 ml Output Urine Total 900 ml 675 ml 250 ml 200 ml Gastric Drainage Total 100 ml 300 ml 0 ml Drainage Total 0 ml 50 ml 5 ml # Voids 2 # Bowel Movements 1 0 1 Result Diagram: 10/02/16 0548 10/02/16 0548 Imaging Last Impressions Chest X-Ray 10/01/16 0000 Signed Impressions: Service Date/Time: Saturday, October 01, 2016 17:03 - CONCLUSION: 1. Left- sided PICC line has its tip in the superior vena cava in good position. 2. Perihilar atelectasis is stable. Adiel Noland MD Abdomen/Pelvis CT 09/30/16 0000 Signed Impressions: Service Date/Time: Friday, September 30, 2016 18:41 - CONCLUSION: 1. Multiple fluid collections seen associated with the pancreas and the root of the mesentery. The fluid collection associated with the pancreatic tail has increased in size from the prior study while the remaining collections are essentially stable. Hubert Rodrigues Jr., MD Upper GI Series 09/26/16 0600 Signed Impressions: Service Date/Time: Monday, September 26, 2016 08:53 - CONCLUSION: Suspected gastric perforation at the inferior distal aspect of the stomach with a collection seen inferior to the distal stomach and anterior to the duodenum. Mason Monge MD Objective Remarks GENERAL: ill looking but in no apparent distress. NG tube in place. HEENT; NG tube in place- CARDIOVASCULAR: Regular rate and irregular rhythm without murmurs, gallops, or rubs. RESPIRATORY: Clear to auscultation. Breath sounds equal bilaterally. No wheezes , rales, or rhonchi. GASTROINTESTINAL: Abdomen soft, non-tender, nondistended. drain in place. MUSCULOSKELETAL: Extremities without clubbing, cyanosis, or edema. NEURO: Alert & Oriented x4 to person, place, time, situation. Moves all ext x4 Procedures Right IJ central line sp Exploratory laparotomy, irrigation and debridement of peripancreatic abscess and necrosectomy PICC line placement Medications and IVs Current Medications Ondansetron HCl (Zofran Inj) 4 mg ONCE ONCE IVP Last administered on 09/16/16 19:48; Start 09/16/16 at 19:00; Stop 09/16/16 at 19:01; Status DC Sodium Chloride (NS Flush) 2 ml UNSCH PRN IV FLUSH FLUSH AFTER USING IV ACCESS Last administered on 09/16/16 19:48; Start 09/16/16 at 19:00; Stop 09/16/16 at 21: 05; Status DC Hydromorphone HCl 1 mg 1 mg ONCE ONCE IVS Last administered on 09/16/16 19:48 ; Start 09/16/16 at 19:00; Stop 09/16/16 at 19:01; Status DC Sodium Chloride 500 ml @ 500 mls/hr BOLUS ONCE IV Last administered on 19:47; Start 09/16/16 at 19:00; Stop 09/16/16 at 19:59; Status DC Aztreonam 2000 mg/ Sodium Chloride 100 ml @ 200 mls/hr ONCE STAT IV Last administered on 09/16/16 22:52; Start 09/16/16 at 20:25; Stop 09/16/16 at 20:54; Status DC Metronidazole 100 ml @ 100 mls/hr ONCE STAT IV Last administered on 09/16/16 21:57; Start 09/16/16 at 20:25; Stop 09/16/16 at 21:24; Status DC Ciprofloxacin/ Dextrose 200 ml @ 200 mls/hr Q12H IV Last administered on 10:59; Start 09/17/16 at 09:00; Stop 09/20/16 at 20:42; Status DC Metronidazole 100 ml @ 100 mls/hr Q8H IV Last administered on 09/20/16 11:39 ; Start 09/17/16 at 04:00; Stop 09/20/16 at 20:42; Status DC Sodium Chloride (NS 1000 ml Inj) 1,000 ml @ 125 mls/hr Q8H IV Last administered on 09/19/16 09:59; Start 09/16/16 at 20:54; Stop 09/19/16 at 20:15 ; Status DC Sodium Chloride (NS Flush) 2 ml UNSCH PRN IV FLUSH FLUSH AFTER USING IV ACCESS ; Start 09/16/16 at 21:00 Sodium Chloride (NS Flush) 2 ml BID IV FLUSH Last administered on 09/30/16 20: 26; Start 09/16/16 at 21:00 Ondansetron HCl (Zofran Inj) 4 mg Q6H PRN IVP NAUSEA OR VOMITING Last administered on 09/30/16 12:54; Start 09/16/16 at 21:00 Acetaminophen (Tylenol) 650 mg Q6H PRN PO FEVER; Start 09/16/16 at 21:00; Status Hold Morphine Sulfate (Morphine Inj) 2 mg Q3H PRN IV Pain 6-10 Last administered on 09/19/16 15:26; Start 09/16/16 at 21:00; Stop 09/19/16 at 19:31; Status DC Oxycodone HCl (Roxicodone) 5 mg Q4H PRN PO PAIN SCALE 3 TO 5 Last administered on 09/16/16 22:52; Start 09/16/16 at 21:00; Status Hold Senna/Docusate Sodium (Fátima-Colace) 1 tab BID PO Last administered on 20:08; Start 09/16/16 at 21:00; Status Hold Magnesium Hydroxide (Milk Of Magnesia Liq) 30 ml Q12H PRN PO MILD - MODERATE CONSTIPATION; Start 09/16/16 at 21:00; Status Hold Sennosides (Senokot) 17.2 mg Q12H PRN PO MODERATE - SEVERE CONSTIPATION; Start 09/16/16 at 21:00; Status Hold Bisacodyl (Dulcolax Supp) 10 mg DAILY PRN RECTAL SEVERE CONSITIPATION; Start at 21:00 Lactulose (Lactulose Liq) 30 ml DAILY PRN PO SEVERE CONSITIPATION; Start at 21:00; Status Hold Hydromorphone HCl (Dilaudid Pf Inj) 1 mg ONCE ONCE IV PUSH ; Start 09/16/16 at 22:15; Stop 09/16/16 at 22:16; Status DC Albuterol Sulfate (Albuterol Neb) 2.5 mg QID NEB PRN NEB SHORTNESS OF BREATH Last administered on 09/27/16 03:09; Start 09/17/16 at 02:15 Allopurinol (Zyloprim) 300 mg DAILY PO Last administered on 09/19/16 09:58; Start 09/17/16 at 09:00; Status Hold Amlodipine Besylate (Norvasc) 5 mg BID PO Last administered on 09/19/16 09:58 ; Start 09/17/16 at 09:00; Status Hold Budesonide/ Formoterol Fumarate (Symbicort 160-4.5 Inh) 2 puff Q12HR INH Last administered on 10/02/16 07:50; Start 09/17/16 at 09:00 Clonidine (Catapres) 0.2 mg Q12HR PO Last administered on 09/19/16 09:58; Start 09/17/16 at 09:00; Status Hold Gabapentin (Neurontin) 600 mg TID PO Last administered on 09/19/16 09:58; Start 09/17/16 at 09:00; Status Hold Roflumilast (Daliresp) 500 mcg DAILY PO Last administered on 09/19/16 09:58; Start 09/17/16 at 09:00; Status Hold Thiamine HCl (Vitamin B1) 100 mg DAILY PO Last administered on 09/18/16 08:19 ; Start 09/17/16 at 09:00; Status Hold Zolpidem Tartrate (Ambien) 5 mg HS PRN PO insomnia Last administered on 22:57; Start 09/17/16 at 02:15; Status Hold Folic Acid (Folate) 1 mg DAILY PO Last administered on 09/18/16 08:18; Start 09/17/16 at 09:00; Status Hold Amylase/Lipase/ Protease (Creon 24-76-120) 2 cap TID PO Last administered on 17:07; Start 09/17/16 at 13:00; Status Hold Iohexol 98 ml 98 ml STK-MED ONCE IV Last administered on 09/17/16 15:40; Start 09/17/16 at 15:40; Stop 09/17/16 at 15:41; Status DC Lactated Ringer's 1,000 ml @ 30 mls/hr Q24H PRN IV SEE LABEL COMMENTS; Start at 22:45; Stop 09/19/16 at 19:23; Status DC Sodium Chloride (NS 500 ml Inj) 500 ml @ 30 mls/hr [id number] PRN IV SEE LABEL COMMENTS; Start 09/18/16 at 22:45; Stop 09/19/16 at 19:23; Status DC Metoprolol Tartrate (Lopressor) 25 mg PHARMACOLOGY PROFESSOR PRN PO SEE LABEL COMMENTS; Start 09/18/16 at 22:45; Stop 09/21/16 at 22:44; Status DC Povidone Iodine (Betadine 5% Antisepsis Kit) 1 applic PHARMACOLOGY PROFESSOR PRN EACH NARE SEE LABEL COMMENTS; Start 09/18/16 at 22:45; Stop 09/21/16 at 22:44; Status DC Chlorhexidine Gluconate (Chlorhexidine 2% Cloth) 3 pack PHARMACOLOGY PROFESSOR PRN TOPICAL SEE LABEL COMMENTS; Start 09/18/16 at 22:45; Stop 09/21/16 at 22:44; Status DC Insulin Human Regular See Protocol Table ... PHARMACOLOGY PROFESSOR PRN SQ SEE PROTOCOL TABLE ; Start 09/18/16 at 22:45; Stop 09/21/16 at 22:44; Status DC Potassium Chloride (KCl 10 Meq Premix Inj) 100 ml @ 100 mls/hr BOLUS ONCE IV Last administered on 09/19/16 11:22; Start 09/19/16 at 11:00; Stop 09/19/16 at 11:59; Status DC Midazolam HCl (Versed Inj) 2 mg STK-MED ONCE .ROUTE Last administered on 17:03; Start 09/19/16 at 17:02; Stop 09/19/16 at 17:03; Status DC Dextrose (D50w (Vial) Inj) 50 ml UNSCH PRN IV HYPOGLYCEMIA-SEE COMMENTS; Start 09/19/16 at 19:30; Status UNV Glucagon (Glucagon Inj) 1 mg UNSCH PRN OTHER HYPOGLYCEMIA-SEE COMMENTS; Start 09/19/16 at 19:30; Status UNV Insulin Aspart (NovoLOG SUPPLEMENTAL SCALE) 1 Q6HR SQ Last administered on 09/26 12:34; Start 09/20/16 at 00:00 Dextrose (D50w (Syr) Inj) 50 ml UNSCH PRN IV HYPOGLYCEMIA-SEE COMMENTS; Start 09/19/16 at 19:30 Glucagon (Glucagon Inj) 1 mg UNSCH PRN OTHER HYPOGLYCEMIA-SEE COMMENTS; Start 09/19/16 at 19:30 Labetalol HCl (Trandate Inj) 100 mg STK-MED ONCE .ROUTE Last administered on 19:30; Start 09/19/16 at 19:27; Stop 09/19/16 at 19:28; Status DC Morphine Sulfate (Morphine Inj) 3 mg Q1H PRN IV Pain 6-10 Last administered on 09/20/16 17:15; Start 09/19/16 at 20:00; Status Hold Fentanyl Citrate (fentaNYL INJ) 500 mcg STK-MED ONCE .ROUTE ; Start 09/19/16 at 19:33; Stop 09/19/16 at 19:34; Status DC Miscellaneous Information ALL NURSING DEPARTME... UNSCH PRN .XX SEE LABEL COMMENTS; Start 09/19/16 at 19:22; Stop 09/20/16 at 19:21; Status DC Multivitamins 10 ml/Folic Acid 1 mg/Insulin Human Regular 20 units/ Famotidine 40 mg/ Amino Acids/ Electrolytes/ Dextrose 2,014.4 ml @ 83 mls/hr Q24H IV- CENTRAL Last administered on 09/22/16 20:39; Start 09/20/16 at 20:00; Stop at 19:59; Status DC Fat Emulsion Intravenous 250 ml @ 10 mls/hr Q24H IV-CENTRAL Last administered on 10/01/16 21:04; Start 09/20/16 at 20:00 Potassium Chloride/Sodium Chloride (1/2 NS + KCl 20 Meq Inj) 1,000 ml @ As Directed STK-MED ONCE .ROUTE Last administered on 09/19/16 20:12; Start at 20:07; Stop 09/19/16 at 20:08; Status DC Morphine Sulfate (*morphine INJ PERIprocedure ONLY) 8 mg STK-MED ONCE .ROUTE Last administered on 09/19/16 20:09; Start 09/19/16 at 20:08; Stop 09/19/16 at 20:09; Status DC Pantoprazole Sodium 40 mg 40 mg Q24H IV PUSH Last administered on 09/19/16 20: 35; Start 09/19/16 at 21:00; Stop 09/20/16 at 09:52; Status DC Potassium Chloride/Sodium Chloride 1,000 ml @ 125 mls/hr Q8H IV Last administered on 09/20/16 03:31; Start 09/19/16 at 20:30; Stop 09/20/16 at 09:52 ; Status DC Potassium Chloride 100 ml @ As Directed STK-MED ONCE .ROUTE ; Start 09/19/16 at 21:07; Stop 09/19/16 at 21:08; Status DC Potassium Chloride 100 ml @ 50 mls/hr Q2H IV Last administered on 09/19/16 23 :35; Start 09/19/16 at 23:00; Stop 09/20/16 at 02:59; Status DC Amino Acids/ Electrolytes/ Dextrose (Clinimix E 4.25/ 25) 1,000 ml @ 83 mls/hr Q12H3M IV-CENTRAL Last administered on 09/20/16 09:33; Start 09/20/16 at 10:00 ; Stop 09/20/16 at 22:02; Status DC Acetaminophen (Ofirmev Inj) 650 mg Q6HR PRN IV FEVER; Start 09/20/16 at 09:30 Labetalol HCl (Trandate Inj) 10 mg Q4H PRN IV PUSH SYS BP GREATER THAN 160 MMHG Last administered on 09/22/16 21:09; Start 09/20/16 at 09:30 Pantoprazole Sodium 40 mg 40 mg DAILY IV PUSH Last administered on 09/20/16 10 :59; Start 09/20/16 at 10:00; Stop 09/20/16 at 14:50; Status DC Sodium Chloride 1,000 ml @ 40 mls/hr Q24H IV Last administered on 09/24/16 08 :28; Start 09/20/16 at 10:00; Stop 09/24/16 at 15:18; Status DC Magnesium Sulfate/ Dextrose (Magnesium Sulfate 1 Gm Premix) 100 ml @ 100 mls/ hr Q1H IV Last administered on 09/20/16 11:39; Start 09/20/16 at 10:00; Stop 09/20/16 at 11:59; Status DC Pantoprazole Sodium (Protonix Inj) 40 mg Q24H IV PUSH Last administered on 09/23 11:48; Start 09/20/16 at 11:30; Stop 09/24/16 at 08:32; Status DC Naloxone HCl (Narcan Inj) 0.4 mg UNSCH PRN IV RESPIRATORY RATE LESS THAN 10; Start 09/20/16 at 14:45 Morphine Sulfate (Morphine 1 Mg/ ml BRANCH MANAGER TRAINEE) 30 mg UNSCH IV Last administered on 05:57; Start 09/20/16 at 14:45 BRANCH MANAGER TRAINEE Dosage Infused (Pha) 1 1 Q8HR .XX Last administered on 10/02/16 05:25; Start 09/20/16 at 22:00 Magnesium Sulfate/ Dextrose 100 ml @ 100 mls/hr Q1H IV Last administered on 23:49; Start 09/20/16 at 20:00; Stop 09/20/16 at 21:59; Status DC Fluconazole/ Sodium Chloride 100 ml @ 100 mls/hr Q24H IV Last administered on 09/29/16 22:10; Start 09/20/16 at 22:00; Stop 09/30/16 at 11:44; Status DC Piperacillin Sod/ Tazobactam Sod 100 ml @ 200 mls/hr Q6H IV ; Start 09/20/16 at 20:45; Stop 09/20/16 at 20:47; Status DC Ciprofloxacin/ Dextrose 200 ml @ 200 mls/hr Q12H IV Last administered on 11:48; Start 09/20/16 at 23:00; Stop 09/23/16 at 12:10; Status DC Metronidazole (Flagyl 500 Mg Inj) 100 ml @ 100 mls/hr Q6H IV Last administered on 09/29/16 10:17; Start 09/20/16 at 21:00; Stop 09/29/16 at 15:53 ; Status DC Insulin Detemir (Levemir Inj) 5 units Q12HR SQ Last administered on 10/02/16 08:00; Start 09/21/16 at 09:00 Clonidine 1 patch 1 patch Q7D T-DERMAL Last administered on 09/21/16 01:17; Start 09/20/16 at 22:15; Stop 09/24/16 at 08:34; Status DC Potassium Phosphate 15 mmol/ Sodium Chloride 155 ml @ 38.75 mls/ hr ONCE ONCE IV Last administered on 09/21/16 08:54; Start 09/21/16 at 09:00; Stop at 12:59; Status DC Potassium Chloride (KCl 20 Meq Premix Inj) 100 ml @ 50 mls/hr Q2H IV Last administered on 09/21/16 09:50; Start 09/21/16 at 08:00; Stop 09/21/16 at 11:59 ; Status DC Enoxaparin Sodium 40 mg 40 mg Q24H SQ Last administered on 10/01/16 21:05; Start 09/21/16 at 20:00 Potassium Phosphate 15 mmol/ Sodium Chloride 155 ml @ 38.75 mls/ hr ONCE ONCE IV Last administered on 09/21/16 22:25; Start 09/21/16 at 20:00; Stop at 23:59; Status DC Potassium Chloride 100 ml @ 50 mls/hr Q2H IV Last administered on 09/22/16 16 :26; Start 09/22/16 at 12:00; Stop 09/22/16 at 15:59; Status DC Magnesium Sulfate/ Dextrose (Magnesium Sulfate 1 Gm Premix) 100 ml @ 100 mls/ hr ONCE ONCE IV Last administered on 09/22/16 14:24; Start 09/22/16 at 12:00 ; Stop 09/22/16 at 12:59; Status DC Enalaprilat 1.25 mg 1.25 mg Q6H PRN IV PUSH SYS BP GREATER THAN 160 MMHG Last administered on 09/27/16 13:20; Start 09/22/16 at 21:30 Sodium Chloride 11 meq/Sodium Acetate 59 meq/ Potassium Chloride 20 meq/ Potassium Phosphate 60 meq/ Magnesium Chloride 10 meq/ Calcium Chloride 9 meq/ Multivitamins 10 ml/Folic Acid 1 mg/Famotidine 40 mg/Insulin Human Regular 20 units/ Amino Acids/ Dextrose 2,081.9801 ml @ 83 mls/hr Q24H IV-CENTRAL Last administered on 09/24/16 21:45; Start 09/23/16 at 20:00; Stop 09/25/16 at 19:59 ; Status DC Aztreonam 2000 mg/ Sodium Chloride 100 ml @ 200 mls/hr Q8H IV ; Start 09/23/16 at 14:00; Stop 09/23/16 at 14:00; Status DC Azithromycin/ Sodium Chloride (Zithromax Inj/ NS 250 ml Inj) 250 ml @ 250 mls/ hr Q24H IV Last administered on 09/28/16 14:52; Start 09/23/16 at 13:00; Stop 09/29/16 at 09:28; Status DC Miscellaneous Medication (ASP Crit: Doc allergy to Penicillin/ Cephalosp) 1 UNSCH X1 PRN .XX PHARMACY DOCUMENTATION; Start 09/23/16 at 12:15; Stop at 12:15; Status DC Miscellaneous Medication (ASP Crit: Necrotizing pancreatitis) 1 UNSCH X1 PRN .XX PHARMACY DOCUMENTATION; Start 09/23/16 at 12:15; Stop 09/24/16 at 12:15; Status DC Miscellaneous Medication 1 1 UNSCH X1 PRN XX PHARMACY DOCUMENTATION; Start at 12:15; Stop 09/24/16 at 12:15; Status DC Ertapenem/Sodium Chloride (INVanz INJ/NS Inj) 100 ml @ 200 mls/hr Q24H IV Last administered on 09/24/16 15:33; Start 09/23/16 at 14:00; Stop 09/25/16 at 09:07; Status DC Miscellaneous Medication ([facility]) 1 UNSCH X1 PRN XX PHARMACY DOCUMENTATION; Start 09/23/16 at 12:15; Stop 09/24/16 at 12:15; Status DC Propofol (Diprivan 200 Mg/20 ml Inj) 200 mg STK-MED ONCE IV ; Start 09/19/16 at 12:00; Stop 09/23/16 at 14:53; Status DC Phenylephrine HCl 1000 mcg 1,000 mcg STK-MED ONCE IV ; Start 09/19/16 at 12:00; Stop 09/23/16 at 14:53; Status DC Lactated Ringer's 1,000 ml @ As Directed STK-MED ONCE IV ; Start 09/19/16 at 12 :00; Stop 09/23/16 at 14:53; Status DC Sodium Chloride (NS 500 ml Inj) 500 ml @ As Directed STK-MED ONCE IV ; Start at 12:00; Stop 09/23/16 at 14:53; Status DC Iohexol (Omnipaque 350 Inj) 100 ml STK-MED ONCE IV Last administered on 06:59; Start 09/24/16 at 06:59; Stop 09/24/16 at 07:00; Status DC Clonidine 1 patch 1 patch Q7D T-DERMAL Last administered on 10/01/16 09:55; Start 09/24/16 at 11:00 Pharmacy Profile Note (Vancomycin Consult Pharmacy) 0 ml @ 0 mls/hr UNSCH OTHER ; Start 09/24/16 at 09:45; Stop 09/29/16 at 15:53; Status DC Miscellaneous Information 1 1 Q7D T-DERMAL Last administered on 10/01/16 09:56 ; Start 09/24/16 at 11:00 Vancomycin HCl/ Sodium Chloride (Vancomycin Inj/ NS 250 ml Inj) 262.5 ml @ 250 mls/hr Q12H IV Last administered on 09/26/16 01:06; Start 09/24/16 at 12:00; Stop 09/26/16 at 02:02; Status DC Miscellaneous Information SPECIFIC LAB TO BE DRAWN:VANCO TROUGH DATE TO... ONCE ONCE .XX Last administered on 09/25/16 23:45; Start 09/25/16 at 23:45; Stop 09/25/16 at 23:46; Status DC Potassium Phosphate 15 mmol/ Sodium Chloride 155 ml @ 38.75 mls/ hr ONCE ONCE IV Last administered on 09/24/16 17:23; Start 09/24/16 at 16:00; Stop at 19:59; Status DC Ertapenem/Sodium Chloride (INVanz INJ/NS Inj) 50 ml @ 200 mls/hr Q24H IV Last administered on 09/30/16 17:04; Start 09/25/16 at 16:00; Stop 10/01/16 at 09:11 ; Status DC Miscellaneous Medication PLEASE CONCENTRATE ALL... UNSCH OTHER ; Start 09/25/16 at 09:15 Sodium Acetate 59 meq/Potassium Chloride 20 meq/ Potassium Phosphate 90 meq/ Magnesium Chloride 10 meq/ Calcium Chloride 9 meq/ Multivitamins 10 ml/Folic Acid 1 mg/Famotidine 40 mg/Insulin Human Regular 20 units/ Amino Acids/ Dextrose 2,086.0482 ml @ 83 mls/hr Q24H IV-CENTRAL ; Start 09/25/16 at 09:30; Status Cancel Sodium Acetate 59 meq/Potassium Chloride 20 meq/ Potassium Phosphate 90 meq/ Magnesium Chloride 10 meq/ Calcium Chloride 9 meq/ Multivitamins 10 ml/Folic Acid 1 mg/Famotidine 40 mg/Insulin Human Regular 20 units/ Amino Acids/ Dextrose 2,086.0482 ml @ 83 mls/hr Q24H IV-CENTRAL Last administered on 20:35; Start 09/25/16 at 20:00; Stop 09/27/16 at 09:05; Status DC Vancomycin HCl/ Sodium Chloride (Vancomycin Inj/ NS 500 ml Inj) 515 ml @ 250 mls/hr Q12H IV Last administered on 09/29/16 12:06; Start 09/26/16 at 12:00; Stop 09/29/16 at 15:53; Status DC Miscellaneous Information SPECIFIC LAB TO BE ... ONCE ONCE .XX ; Start 09/27 at 23:45; Stop 09/27/16 at 23:46; Status DC Diatrizoate Meglum/ Diatrizoate Sod 120 ml 120 ml STK-MED ONCE NG ; Start at 10:21; Stop 09/26/16 at 10:22; Status DC Potassium Acetate/ Potassium Phosphate/ Magnesium Chloride/Calcium Chloride/ Multivitamins/ Folic Acid/ Famotidine/ Insulin Human Regular/Amino Acids/ Dextrose (Potassium Acetate Inj/ Potassium Phosphate Inj/ Magnesium Chloride Inj / Calcium Chlor... 2,080.5937 ml @ 83 mls/hr Q24H IV-CENTRAL Last administered on 09/30/16 20:34; Start 09/27/16 at 20:00; Stop 10/01/16 at 09:06; Status DC Benzocaine/ Menthol 1 lozenge 1 lozenge UNSCH PRN BUCCAL sore throat; Start at 16:00 Sodium Chloride/ Sterile Water (Sodium Chloride 23.4% Inj/Sterile Water For Inj ) 1,009.625 ml @ 15 mls/hr Q24H IV Last administered on 10/01/16 23:36; Start 09/28/16 at 17:00 Miscellaneous Information SPECIFIC LAB TO BE ... ONCE ONCE .XX ; Start 10/01 at 23:45; Stop 10/01/16 at 23:46; Status Cancel Phenol (Chloraseptic [place]) 2 spray Q2H PRN OROPHARYNG sore throat; Start 09/30 at 10:00 Diatrizoate Meglum/ Diatrizoate Sod 18 ml 18 ml ONCE ONCE PO Last administered on 09/30/16 12:55; Start 09/30/16 at 11:30; Stop 09/30/16 at 11:31 ; Status DC Micafungin Sodium 100 mg/Sodium Chloride 100 ml @ 100 mls/hr Q24H IV Last administered on 10/01/16 13:18; Start 09/30/16 at 13:00 Linezolid (Zyvox 600 Mg Premix) 300 ml @ 300 mls/hr Q12H IV Last administered on 10/01/16 23:34; Start 09/30/16 at 12:00 Iohexol 97 ml 97 ml STK-MED ONCE IV ; Start 09/30/16 at 19:59; Stop 09/30/16 at 20:00; Status DC Magnesium Chloride/Calcium Chloride/ Multivitamins/ Folic Acid/ Famotidine/ Insulin Human Regular/Amino Acids/Dextrose (Magnesium Chloride Inj/ Calcium Chloride Inj/Mvi-12 Inj/ Folvite Inj/ Pepcid Inj/ NovoLIN R (IV INFUSION)/ Clinimix 4.25/25) 2,026.0937 ml @ 83 mls/hr Q24H IV-CENTRAL Last administered on 10/01/16 17:57; Start 10/01/16 at 20:00 Miscellaneous Medication (ASP Crit: Necrotizing pancreatitis) 1 UNSCH X1 PRN .XX PHARMACY DOCUMENTATION; Start 10/01/16 at 09:15; Stop 10/02/16 at 09:14; Status DC Miscellaneous Medication ([facility]) 1 UNSCH X1 PRN XX PHARMACY DOCUMENTATION; Start 10/01/16 at 09:15; Stop 10/02/16 at 09:14; Status DC Miscellaneous Medication 1 1 UNSCH X1 PRN XX PHARMACY DOCUMENTATION; Start at 09:15; Stop 10/02/16 at 09:14; Status DC Meropenem/Sodium Chloride (Merrem Inj/NS Inj) 100 ml @ 200 mls/hr Q8H IV Last administered on 10/02/16 07:51; Start 10/01/16 at 10:00 Sodium Chloride (NS Flush) See Protocol DAILY IV FLUSH Last administered on 07:51; Start 10/02/16 at 09:00 Sodium Chloride (NS Flush) See Protocol UNSCH PRN IV FLUSH SEE PROTOCOL TABLE; Start 10/01/16 at 17:15 Heparin Sodium (Porcine) (Heparin Central Flush) See Protocol DAILY IV FLUSH Last administered on 10/02/16 07:50; Start 10/02/16 at 09:00 Heparin Sodium (Porcine) (Heparin Central Flush) See Protocol UNSCH PRN IV FLUSH SEE PROTOCOL TABLE; Start 10/01/16 at 17:15 Sodium Chloride (NS Flush) UNSCH PRN IV FLUSH SEE PROTOCOL TABLE; Start at 17:15 A/P Assessment and Plan A/P 1. Pancreatic Abscess: recent "pancreas surgery" at by Dr. Mathias approx [address] ago for pseudocyst. 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 Patient is sp exploratory laparotomy, irrigation and drainage of pancreatic abscess. Management as per general surgery. Pain control with morphine BRANCH MANAGER TRAINEE. Follow-up upper GI series shows suspected gastric perforation at the distal inferior stomach. Per general surgery, continue ice chips and TPN. Absolute nothing by mouth. For repeat upper GI series on Monday per general surgery. continue Micafungin, Ertapenem and Zyvox- monitor CBC. ID following. follow the repeated blood cultures. 2. Hypercalcemia: Improving. IVF for hydration. 3. Leukocytosis: continue antibiotics as noted above- monitor CBC. ID following. 4. Alcohol Abuse: reports h/o alcohol abuse, however states he quit. Continue to monitor for possible withdrawal. 5. COPD: Chronic Respiratory Failure. Stable. Resumed home MDI/Neb. continue O2 to keep o2 sat more than 92%. 6. DM: Sliding scale w/ Accu-Cheks. Hold Metformin. Will continue insulin Levemir and regular in the TPN. 7. HTN: Improving continue clonidine patch to TTS 3. 8.mild hyperkalemia-improved- being adjust through TPN and continue to monitor- previously d/w the pharmacist. 9-hyperphosphatemia.; adjust through TPN- will monitor DVT prophylaxis with subq Lovenox. Rick Rahman MD Oct 02, 2016 10:00
[2016-10-02] MEDS: LINEZOLID 600 MG PREMIX 300 ML IV SCH ×2 (11:30→23:55)
[2016-10-02] MEDS: MICAFUNGIN INJ 100 MG in SODIUM CHLORIDE 0.9% INJ 100 ML IV SCH (11:30)
[2016-10-02] MEDS: MORPHINE SULFATE 30 MG/30 ML PCA IV SCH (12:48)
--- NOTE | 2016-10-02 14:56 | HHI.PR ---
Subjective Subjective Notes feels better, no new c/o Objective Vitals/I&O Vital Signs Date Time Temp Pulse Resp B/P Pulse Ox O2 Delivery O2 Flow Rate FiO2 10/02/16 12:00 98.4 95 18 134/78 99 10/02/16 11:18 21 10/02/16 07:50 Nasal Cannula 2.00 Labs Laboratory Tests Test 10/02/16 05:48 White Blood Count 25.0 Red Blood Count 3.68 Hemoglobin 8.7 Hematocrit 26.8 Mean Corpuscular Volume 72.7 Mean Corpuscular Hemoglobin 23.6 Mean Corpuscular Hemoglobin 32.5 Concent Red Cell Distribution Width 16.8 Platelet Count 366 Mean Platelet Volume 9.6 Neutrophils (%) (Auto) 77.4 Lymphocytes (%) (Auto) 9.5 Monocytes (%) (Auto) 10.2 Eosinophils (%) (Auto) 2.6 Basophils (%) (Auto) 0.3 Neutrophils # (Auto) 19.3 Lymphocytes # (Auto) 2.4 Monocytes # (Auto) 2.5 Eosinophils # (Auto) 0.6 Basophils # (Auto) 0.1 CBC Comment AUTO DIFF Differential Comment AUTO DIFF CONFIRMED Platelet Estimate HIGH Platelet Morphology Comment NORMAL Target Cells 1+ Ovalocytes 1+ Sodium Level 131 Potassium Level 5.0 Chloride Level 99 Carbon Dioxide Level 24.1 Anion Gap 8 Blood Urea Nitrogen 28 Creatinine 1.14 Estimat Glomerular Filtration 78 Rate Random Glucose 106 Calcium Level 10.1 Date/Time Procedure Status Source Growth 10/02/16 05:48 Aerobic Blood Culture Received Blood Peripheral Pending 10/02/16 05:48 Anaerobic Blood Culture Received Blood Peripheral Pending 10/01/16 10:20 Aerobic Blood Culture - Preliminary Resulted Blood Line NO GROWTH IN 1 DAY 10/01/16 10:20 Anaerobic Blood Culture - Preliminary Resulted Blood Line NO GROWTH IN 1 DAY 09/30/16 18:00 Gram Stain - Final Resulted Wound Abdomen 09/30/16 18:00 Wound Culture - Preliminary Resulted Wound Abdomen NO GROWTH IN 48 HOURS. Cardiovascular: Regular Lungs: Clear Abdomen: Non-distended, Post-op tenderness Extremities: No edema, Perfused A/P Assessment and Plan 66yo male s/p pancreatic necrosectomy, stable. - continue TPN - imaging tomorrow - pain ok - appreciate ID help Gold Nicole MD Oct 02, 2016 14:56
[2016-10-02] MEDS: SODIUM CHLORIDE 23.4% INJ 38.5 MEQ in WATER STERILE FOR INJ 1,000 ML IV SCH (17:04)
[2016-10-02] MEDS: MAGNESIUM CHLORIDE IV-CENTRAL SCH ×7 (17:14)
[2016-10-02] MEDS: CALCIUM CHLORIDE IV-CENTRAL SCH ×7 (17:14)
[2016-10-02] MEDS: [UNRECOGNIZED DRUG - OTHER] IV-CENTRAL SCH ×7 (17:14)
[2016-10-02] MEDS: MULTIVITAMIN IV-CENTRAL SCH ×7 (17:14)
[2016-10-02] MEDS: FAT EMULSION 20% INJ 250 ML (@10 mls/hr) IV-CENTRAL SCH (20:28)
[2016-10-02] MEDS: ENOXAPARIN SODIUM 40 MG/0.4 ML SYRINGE SQ SCH (20:28)
[2016-10-03] VITALS: BP 125/74; PULSE 88; RESP 18; TEMP 98.1; O2SAT 100
[2016-10-03] MEDS: MEROPENEM INJ 1,000 MG in SODIUM CHLORIDE 0.9% INJ 100 ML IV SCH ×3 (02:34→18:13)
[2016-10-03] MEDS: INSULIN ASPART SUPPLEMENTAL SCALE SQ SCH ×4 (06:00→23:08)
[2016-10-03] MEDS: PCA - TOTAL MG MORPHINE DELIVERED PER SHIFT SCH ×3 (06:00→22:00)
[2016-10-03 08:00] VITALS: BP 145/79; PULSE 84; RESP 17; TEMP 95.5; O2SAT 99
[2016-10-03] MEDS: SODIUM CHLORIDE 0.9% FLUSH 10 ML FLUSH IV FLUSH SCH ×3 (08:31→21:00)
[2016-10-03] MEDS: BUDESONIDE-FORMOTEROL 160/4.5 MCG INHALER INH SCH ×2 (09:00→20:13)
[2016-10-03] MEDS: INSULIN DETEMIR 100 UNITS/ML VIAL SQ SCH ×2 (09:28→21:00)
--- NOTE | 2016-10-03 10:32 | HHI.PR ---
Subjective Remarks f/u; pancreatic abscess. ill looking but in no acute distress. remains afebrile. has mild generalized abdominal pain. no nausea. NG tube in place. d/w the ; surgery TECHNOLOGY APPLICATIONS ENGINEER at the bedside. Objective Vitals Vital Signs Date Time Temp Pulse Resp B/P Pulse Ox O2 Delivery O2 Flow Rate FiO2 10/03/16 08:00 95.5 84 17 145/79 99 10/03/16 06:00 18 10/03/16 04:00 Nasal Cannula 1.00 10/03/16 00:00 98.1 88 18 125/74 100 10/03/16 00:00 Nasal Cannula 1.00 10/02/16 22:00 16 10/02/16 20:00 97.8 84 18 134/78 99 10/02/16 20:00 Nasal Cannula 1.00 10/02/16 17:27 98 21 10/02/16 16:00 95.6 77 16 109/69 98 10/02/16 12:00 98.4 95 18 134/78 99 10/02/16 11:18 94 21 I/O 10/02/16 10/02/16 10/02/16 10/03/16 10/03/16 10/03/16 07:00 15:00 23:00 07:00 15:00 23:00 Intake Total 3682 ml 1449 ml 1172 ml Output Total 200 ml 505 ml 700 ml 700 ml Balance -200 ml 3177 ml 749 ml 472 ml Intake Oral 0 ml 240 ml IV Total 1435 ml 374 ml 482 ml TPN/PPN 2019 ml 745 ml 615 ml Lipid 228 ml 90 ml 75 ml Output Urine Total 200 ml 500 ml 700 ml 550 ml Gastric Drainage Total 0 ml 0 ml 150 ml Drainage Total 5 ml 0 ml 0 ml # Bowel Movements 1 1 0 0 Result Diagram: 10/02/16 0548 10/02/16 0548 Imaging Last Impressions Chest X-Ray 10/01/16 0000 Signed Impressions: Service Date/Time: Saturday, October 01, 2016 17:03 - CONCLUSION: 1. Left- sided PICC line has its tip in the superior vena cava in good position. 2. Perihilar atelectasis is stable. Adiel Noland MD Abdomen/Pelvis CT 09/30/16 0000 Signed Impressions: Service Date/Time: Friday, September 30, 2016 18:41 - CONCLUSION: 1. Multiple fluid collections seen associated with the pancreas and the root of the mesentery. The fluid collection associated with the pancreatic tail has increased in size from the prior study while the remaining collections are essentially stable. Hubert Rodrigues Jr., MD Upper GI Series 09/26/16 0600 Signed Impressions: Service Date/Time: Monday, September 26, 2016 08:53 - CONCLUSION: Suspected gastric perforation at the inferior distal aspect of the stomach with a collection seen inferior to the distal stomach and anterior to the duodenum. Mason Monge MD Objective Remarks GENERAL: ill looking but in no apparent distress. NG tube in place. HEENT; NG tube in place- CARDIOVASCULAR: Regular rate and irregular rhythm without murmurs, gallops, or rubs. RESPIRATORY: Clear to auscultation. Breath sounds equal bilaterally. No wheezes , rales, or rhonchi. GASTROINTESTINAL: Abdomen soft, non-tender, nondistended. drain in place. MUSCULOSKELETAL: Extremities without clubbing, cyanosis, or edema. NEURO: Alert & Oriented x4 to person, place, time, situation. Moves all ext x4 Procedures Right IJ central line sp Exploratory laparotomy, irrigation and debridement of peripancreatic abscess and necrosectomy PICC line placement Medications and IVs Current Medications Ondansetron HCl (Zofran Inj) 4 mg ONCE ONCE IVP Last administered on 09/16/16 19:48; Start 09/16/16 at 19:00; Stop 09/16/16 at 19:01; Status DC Sodium Chloride (NS Flush) 2 ml UNSCH PRN IV FLUSH FLUSH AFTER USING IV ACCESS Last administered on 09/16/16 19:48; Start 09/16/16 at 19:00; Stop 09/16/16 at 21: 05; Status DC Hydromorphone HCl 1 mg 1 mg ONCE ONCE IVS Last administered on 09/16/16 19:48 ; Start 09/16/16 at 19:00; Stop 09/16/16 at 19:01; Status DC Sodium Chloride 500 ml @ 500 mls/hr BOLUS ONCE IV Last administered on 19:47; Start 09/16/16 at 19:00; Stop 09/16/16 at 19:59; Status DC Aztreonam 2000 mg/ Sodium Chloride 100 ml @ 200 mls/hr ONCE STAT IV Last administered on 09/16/16 22:52; Start 09/16/16 at 20:25; Stop 09/16/16 at 20:54; Status DC Metronidazole 100 ml @ 100 mls/hr ONCE STAT IV Last administered on 09/16/16 21:57; Start 09/16/16 at 20:25; Stop 09/16/16 at 21:24; Status DC Ciprofloxacin/ Dextrose 200 ml @ 200 mls/hr Q12H IV Last administered on 10:59; Start 09/17/16 at 09:00; Stop 09/20/16 at 20:42; Status DC Metronidazole 100 ml @ 100 mls/hr Q8H IV Last administered on 09/20/16 11:39 ; Start 09/17/16 at 04:00; Stop 09/20/16 at 20:42; Status DC Sodium Chloride (NS 1000 ml Inj) 1,000 ml @ 125 mls/hr Q8H IV Last administered on 09/19/16 09:59; Start 09/16/16 at 20:54; Stop 09/19/16 at 20:15 ; Status DC Sodium Chloride (NS Flush) 2 ml UNSCH PRN IV FLUSH FLUSH AFTER USING IV ACCESS ; Start 09/16/16 at 21:00 Sodium Chloride (NS Flush) 2 ml BID IV FLUSH Last administered on 10/02/16 20: 29; Start 09/16/16 at 21:00 Ondansetron HCl (Zofran Inj) 4 mg Q6H PRN IVP NAUSEA OR VOMITING Last administered on 09/30/16 12:54; Start 09/16/16 at 21:00 Acetaminophen (Tylenol) 650 mg Q6H PRN PO FEVER; Start 09/16/16 at 21:00; Status Hold Morphine Sulfate (Morphine Inj) 2 mg Q3H PRN IV Pain 6-10 Last administered on 09/19/16 15:26; Start 09/16/16 at 21:00; Stop 09/19/16 at 19:31; Status DC Oxycodone HCl (Roxicodone) 5 mg Q4H PRN PO PAIN SCALE 3 TO 5 Last administered on 09/16/16 22:52; Start 09/16/16 at 21:00; Status Hold Senna/Docusate Sodium (Fátima-Colace) 1 tab BID PO Last administered on 20:08; Start 09/16/16 at 21:00; Status Hold Magnesium Hydroxide (Milk Of Magnesia Liq) 30 ml Q12H PRN PO MILD - MODERATE CONSTIPATION; Start 09/16/16 at 21:00; Status Hold Sennosides (Senokot) 17.2 mg Q12H PRN PO MODERATE - SEVERE CONSTIPATION; Start 09/16/16 at 21:00; Status Hold Bisacodyl (Dulcolax Supp) 10 mg DAILY PRN RECTAL SEVERE CONSITIPATION; Start at 21:00 Lactulose (Lactulose Liq) 30 ml DAILY PRN PO SEVERE CONSITIPATION; Start at 21:00; Status Hold Hydromorphone HCl (Dilaudid Pf Inj) 1 mg ONCE ONCE IV PUSH ; Start 09/16/16 at 22:15; Stop 09/16/16 at 22:16; Status DC Albuterol Sulfate (Albuterol Neb) 2.5 mg QID NEB PRN NEB SHORTNESS OF BREATH Last administered on 09/27/16 03:09; Start 09/17/16 at 02:15 Allopurinol (Zyloprim) 300 mg DAILY PO Last administered on 09/19/16 09:58; Start 09/17/16 at 09:00; Status Hold Amlodipine Besylate (Norvasc) 5 mg BID PO Last administered on 09/19/16 09:58 ; Start 09/17/16 at 09:00; Status Hold Budesonide/ Formoterol Fumarate (Symbicort 160-4.5 Inh) 2 puff Q12HR INH Last administered on 10/03/16 09:00; Start 09/17/16 at 09:00 Clonidine (Catapres) 0.2 mg Q12HR PO Last administered on 09/19/16 09:58; Start 09/17/16 at 09:00; Status Hold Gabapentin (Neurontin) 600 mg TID PO Last administered on 09/19/16 09:58; Start 09/17/16 at 09:00; Status Hold Roflumilast (Daliresp) 500 mcg DAILY PO Last administered on 09/19/16 09:58; Start 09/17/16 at 09:00; Status Hold Thiamine HCl (Vitamin B1) 100 mg DAILY PO Last administered on 09/18/16 08:19 ; Start 09/17/16 at 09:00; Status Hold Zolpidem Tartrate (Ambien) 5 mg HS PRN PO insomnia Last administered on 22:57; Start 09/17/16 at 02:15; Status Hold Folic Acid (Folate) 1 mg DAILY PO Last administered on 09/18/16 08:18; Start 09/17/16 at 09:00; Status Hold Amylase/Lipase/ Protease (Creon 24-76-120) 2 cap TID PO Last administered on 17:07; Start 09/17/16 at 13:00; Status Hold Iohexol 98 ml 98 ml STK-MED ONCE IV Last administered on 09/17/16 15:40; Start 09/17/16 at 15:40; Stop 09/17/16 at 15:41; Status DC Lactated Ringer's 1,000 ml @ 30 mls/hr Q24H PRN IV SEE LABEL COMMENTS; Start at 22:45; Stop 09/19/16 at 19:23; Status DC Sodium Chloride (NS 500 ml Inj) 500 ml @ 30 mls/hr [id number] PRN IV SEE LABEL COMMENTS; Start 09/18/16 at 22:45; Stop 09/19/16 at 19:23; Status DC Metoprolol Tartrate (Lopressor) 25 mg BATCH FREEZER OPERATOR PRN PO SEE LABEL COMMENTS; Start 09/18/16 at 22:45; Stop 09/21/16 at 22:44; Status DC Povidone Iodine (Betadine 5% Antisepsis Kit) 1 applic BATCH FREEZER OPERATOR PRN EACH NARE SEE LABEL COMMENTS; Start 09/18/16 at 22:45; Stop 09/21/16 at 22:44; Status DC Chlorhexidine Gluconate (Chlorhexidine 2% Cloth) 3 pack BATCH FREEZER OPERATOR PRN TOPICAL SEE LABEL COMMENTS; Start 09/18/16 at 22:45; Stop 09/21/16 at 22:44; Status DC Insulin Human Regular See Protocol Table ... BATCH FREEZER OPERATOR PRN SQ SEE PROTOCOL TABLE ; Start 09/18/16 at 22:45; Stop 09/21/16 at 22:44; Status DC Potassium Chloride (KCl 10 Meq Premix Inj) 100 ml @ 100 mls/hr BOLUS ONCE IV Last administered on 09/19/16 11:22; Start 09/19/16 at 11:00; Stop 09/19/16 at 11:59; Status DC Midazolam HCl (Versed Inj) 2 mg STK-MED ONCE .ROUTE Last administered on 17:03; Start 09/19/16 at 17:02; Stop 09/19/16 at 17:03; Status DC Dextrose (D50w (Vial) Inj) 50 ml UNSCH PRN IV HYPOGLYCEMIA-SEE COMMENTS; Start 09/19/16 at 19:30; Status UNV Glucagon (Glucagon Inj) 1 mg UNSCH PRN OTHER HYPOGLYCEMIA-SEE COMMENTS; Start 09/19/16 at 19:30; Status UNV Insulin Aspart (NovoLOG SUPPLEMENTAL SCALE) 1 Q6HR SQ Last administered on 09/26 12:34; Start 09/20/16 at 00:00 Dextrose (D50w (Syr) Inj) 50 ml UNSCH PRN IV HYPOGLYCEMIA-SEE COMMENTS; Start 09/19/16 at 19:30 Glucagon (Glucagon Inj) 1 mg UNSCH PRN OTHER HYPOGLYCEMIA-SEE COMMENTS; Start 09/19/16 at 19:30 Labetalol HCl (Trandate Inj) 100 mg STK-MED ONCE .ROUTE Last administered on 19:30; Start 09/19/16 at 19:27; Stop 09/19/16 at 19:28; Status DC Morphine Sulfate (Morphine Inj) 3 mg Q1H PRN IV Pain 6-10 Last administered on 09/20/16 17:15; Start 09/19/16 at 20:00; Status Hold Fentanyl Citrate (fentaNYL INJ) 500 mcg STK-MED ONCE .ROUTE ; Start 09/19/16 at 19:33; Stop 09/19/16 at 19:34; Status DC Miscellaneous Information ALL NURSING DEPARTME... UNSCH PRN .XX SEE LABEL COMMENTS; Start 09/19/16 at 19:22; Stop 09/20/16 at 19:21; Status DC Multivitamins 10 ml/Folic Acid 1 mg/Insulin Human Regular 20 units/ Famotidine 40 mg/ Amino Acids/ Electrolytes/ Dextrose 2,014.4 ml @ 83 mls/hr Q24H IV- CENTRAL Last administered on 09/22/16 20:39; Start 09/20/16 at 20:00; Stop at 19:59; Status DC Fat Emulsion Intravenous 250 ml @ 10 mls/hr Q24H IV-CENTRAL Last administered on 10/02/16 20:28; Start 09/20/16 at 20:00 Potassium Chloride/Sodium Chloride (1/2 NS + KCl 20 Meq Inj) 1,000 ml @ As Directed STK-MED ONCE .ROUTE Last administered on 09/19/16 20:12; Start at 20:07; Stop 09/19/16 at 20:08; Status DC Morphine Sulfate (*morphine INJ PERIprocedure ONLY) 8 mg STK-MED ONCE .ROUTE Last administered on 09/19/16 20:09; Start 09/19/16 at 20:08; Stop 09/19/16 at 20:09; Status DC Pantoprazole Sodium 40 mg 40 mg Q24H IV PUSH Last administered on 09/19/16 20: 35; Start 09/19/16 at 21:00; Stop 09/20/16 at 09:52; Status DC Potassium Chloride/Sodium Chloride 1,000 ml @ 125 mls/hr Q8H IV Last administered on 09/20/16 03:31; Start 09/19/16 at 20:30; Stop 09/20/16 at 09:52 ; Status DC Potassium Chloride 100 ml @ As Directed STK-MED ONCE .ROUTE ; Start 09/19/16 at 21:07; Stop 09/19/16 at 21:08; Status DC Potassium Chloride 100 ml @ 50 mls/hr Q2H IV Last administered on 09/19/16 23 :35; Start 09/19/16 at 23:00; Stop 09/20/16 at 02:59; Status DC Amino Acids/ Electrolytes/ Dextrose (Clinimix E 4.25/ 25) 1,000 ml @ 83 mls/hr Q12H3M IV-CENTRAL Last administered on 09/20/16 09:33; Start 09/20/16 at 10:00 ; Stop 09/20/16 at 22:02; Status DC Acetaminophen (Ofirmev Inj) 650 mg Q6HR PRN IV FEVER; Start 09/20/16 at 09:30 Labetalol HCl (Trandate Inj) 10 mg Q4H PRN IV PUSH SYS BP GREATER THAN 160 MMHG Last administered on 09/22/16 21:09; Start 09/20/16 at 09:30 Pantoprazole Sodium 40 mg 40 mg DAILY IV PUSH Last administered on 09/20/16 10 :59; Start 09/20/16 at 10:00; Stop 09/20/16 at 14:50; Status DC Sodium Chloride 1,000 ml @ 40 mls/hr Q24H IV Last administered on 09/24/16 08 :28; Start 09/20/16 at 10:00; Stop 09/24/16 at 15:18; Status DC Magnesium Sulfate/ Dextrose (Magnesium Sulfate 1 Gm Premix) 100 ml @ 100 mls/ hr Q1H IV Last administered on 09/20/16 11:39; Start 09/20/16 at 10:00; Stop 09/20/16 at 11:59; Status DC Pantoprazole Sodium (Protonix Inj) 40 mg Q24H IV PUSH Last administered on 09/23 11:48; Start 09/20/16 at 11:30; Stop 09/24/16 at 08:32; Status DC Naloxone HCl (Narcan Inj) 0.4 mg UNSCH PRN IV RESPIRATORY RATE LESS THAN 10; Start 09/20/16 at 14:45 Morphine Sulfate (Morphine 1 Mg/ ml COURSE DEVELOPER) 30 mg UNSCH IV Last administered on 12:48; Start 09/20/16 at 14:45 COURSE DEVELOPER Dosage Infused (Pha) 1 1 Q8HR .XX Last administered on 10/03/16 06:00; Start 09/20/16 at 22:00 Magnesium Sulfate/ Dextrose 100 ml @ 100 mls/hr Q1H IV Last administered on 23:49; Start 09/20/16 at 20:00; Stop 09/20/16 at 21:59; Status DC Fluconazole/ Sodium Chloride 100 ml @ 100 mls/hr Q24H IV Last administered on 09/29/16 22:10; Start 09/20/16 at 22:00; Stop 09/30/16 at 11:44; Status DC Piperacillin Sod/ Tazobactam Sod 100 ml @ 200 mls/hr Q6H IV ; Start 09/20/16 at 20:45; Stop 09/20/16 at 20:47; Status DC Ciprofloxacin/ Dextrose 200 ml @ 200 mls/hr Q12H IV Last administered on 11:48; Start 09/20/16 at 23:00; Stop 09/23/16 at 12:10; Status DC Metronidazole (Flagyl 500 Mg Inj) 100 ml @ 100 mls/hr Q6H IV Last administered on 09/29/16 10:17; Start 09/20/16 at 21:00; Stop 09/29/16 at 15:53 ; Status DC Insulin Detemir (Levemir Inj) 5 units Q12HR SQ Last administered on 10/03/16 09:28; Start 09/21/16 at 09:00 Clonidine 1 patch 1 patch Q7D T-DERMAL Last administered on 09/21/16 01:17; Start 09/20/16 at 22:15; Stop 09/24/16 at 08:34; Status DC Potassium Phosphate 15 mmol/ Sodium Chloride 155 ml @ 38.75 mls/ hr ONCE ONCE IV Last administered on 09/21/16 08:54; Start 09/21/16 at 09:00; Stop at 12:59; Status DC Potassium Chloride (KCl 20 Meq Premix Inj) 100 ml @ 50 mls/hr Q2H IV Last administered on 09/21/16 09:50; Start 09/21/16 at 08:00; Stop 09/21/16 at 11:59 ; Status DC Enoxaparin Sodium 40 mg 40 mg Q24H SQ Last administered on 10/02/16 20:28; Start 09/21/16 at 20:00 Potassium Phosphate 15 mmol/ Sodium Chloride 155 ml @ 38.75 mls/ hr ONCE ONCE IV Last administered on 09/21/16 22:25; Start 09/21/16 at 20:00; Stop at 23:59; Status DC Potassium Chloride 100 ml @ 50 mls/hr Q2H IV Last administered on 09/22/16 16 :26; Start 09/22/16 at 12:00; Stop 09/22/16 at 15:59; Status DC Magnesium Sulfate/ Dextrose (Magnesium Sulfate 1 Gm Premix) 100 ml @ 100 mls/ hr ONCE ONCE IV Last administered on 09/22/16 14:24; Start 09/22/16 at 12:00 ; Stop 09/22/16 at 12:59; Status DC Enalaprilat 1.25 mg 1.25 mg Q6H PRN IV PUSH SYS BP GREATER THAN 160 MMHG Last administered on 09/27/16 13:20; Start 09/22/16 at 21:30 Sodium Chloride 11 meq/Sodium Acetate 59 meq/ Potassium Chloride 20 meq/ Potassium Phosphate 60 meq/ Magnesium Chloride 10 meq/ Calcium Chloride 9 meq/ Multivitamins 10 ml/Folic Acid 1 mg/Famotidine 40 mg/Insulin Human Regular 20 units/ Amino Acids/ Dextrose 2,081.9801 ml @ 83 mls/hr Q24H IV-CENTRAL Last administered on 09/24/16 21:45; Start 09/23/16 at 20:00; Stop 09/25/16 at 19:59 ; Status DC Aztreonam 2000 mg/ Sodium Chloride 100 ml @ 200 mls/hr Q8H IV ; Start 09/23/16 at 14:00; Stop 09/23/16 at 14:00; Status DC Azithromycin/ Sodium Chloride (Zithromax Inj/ NS 250 ml Inj) 250 ml @ 250 mls/ hr Q24H IV Last administered on 09/28/16 14:52; Start 09/23/16 at 13:00; Stop 09/29/16 at 09:28; Status DC Miscellaneous Medication (ASP Crit: Doc allergy to Penicillin/ Cephalosp) 1 UNSCH X1 PRN .XX PHARMACY DOCUMENTATION; Start 09/23/16 at 12:15; Stop at 12:15; Status DC Miscellaneous Medication (ASP Crit: Necrotizing pancreatitis) 1 UNSCH X1 PRN .XX PHARMACY DOCUMENTATION; Start 09/23/16 at 12:15; Stop 09/24/16 at 12:15; Status DC Miscellaneous Medication 1 1 UNSCH X1 PRN XX PHARMACY DOCUMENTATION; Start at 12:15; Stop 09/24/16 at 12:15; Status DC Ertapenem/Sodium Chloride (INVanz INJ/NS Inj) 100 ml @ 200 mls/hr Q24H IV Last administered on 09/24/16 15:33; Start 09/23/16 at 14:00; Stop 09/25/16 at 09:07; Status DC Miscellaneous Medication ([facility] Information) 1 UNSCH X1 PRN XX PHARMACY DOCUMENTATION; Start 09/23/16 at 12:15; Stop 09/24/16 at 12:15; Status DC Propofol (Diprivan 200 Mg/20 ml Inj) 200 mg STK-MED ONCE IV ; Start 09/19/16 at 12:00; Stop 09/23/16 at 14:53; Status DC Phenylephrine HCl 1000 mcg 1,000 mcg STK-MED ONCE IV ; Start 09/19/16 at 12:00; Stop 09/23/16 at 14:53; Status DC Lactated Ringer's 1,000 ml @ As Directed STK-MED ONCE IV ; Start 09/19/16 at 12 :00; Stop 09/23/16 at 14:53; Status DC Sodium Chloride (NS 500 ml Inj) 500 ml @ As Directed STK-MED ONCE IV ; Start at 12:00; Stop 09/23/16 at 14:53; Status DC Iohexol (Omnipaque 350 Inj) 100 ml STK-MED ONCE IV Last administered on 06:59; Start 09/24/16 at 06:59; Stop 09/24/16 at 07:00; Status DC Clonidine 1 patch 1 patch Q7D T-DERMAL Last administered on 10/01/16 09:55; Start 09/24/16 at 11:00 Pharmacy Profile Note (Vancomycin Consult Pharmacy) 0 ml @ 0 mls/hr UNSCH OTHER ; Start 09/24/16 at 09:45; Stop 09/29/16 at 15:53; Status DC Miscellaneous Information 1 1 Q7D T-DERMAL Last administered on 10/01/16 09:56 ; Start 09/24/16 at 11:00 Vancomycin HCl/ Sodium Chloride (Vancomycin Inj/ NS 250 ml Inj) 262.5 ml @ 250 mls/hr Q12H IV Last administered on 09/26/16 01:06; Start 09/24/16 at 12:00; Stop 09/26/16 at 02:02; Status DC Miscellaneous Information SPECIFIC LAB TO BE DRAWN:VANCO TROUGH DATE TO... ONCE ONCE .XX Last administered on 09/25/16 23:45; Start 09/25/16 at 23:45; Stop 09/25/16 at 23:46; Status DC Potassium Phosphate 15 mmol/ Sodium Chloride 155 ml @ 38.75 mls/ hr ONCE ONCE IV Last administered on 09/24/16 17:23; Start 09/24/16 at 16:00; Stop at 19:59; Status DC Ertapenem/Sodium Chloride (INVanz INJ/NS Inj) 50 ml @ 200 mls/hr Q24H IV Last administered on 09/30/16 17:04; Start 09/25/16 at 16:00; Stop 10/01/16 at 09:11 ; Status DC Miscellaneous Medication PLEASE CONCENTRATE ALL... UNSCH OTHER ; Start 09/25/16 at 09:15 Sodium Acetate 59 meq/Potassium Chloride 20 meq/ Potassium Phosphate 90 meq/ Magnesium Chloride 10 meq/ Calcium Chloride 9 meq/ Multivitamins 10 ml/Folic Acid 1 mg/Famotidine 40 mg/Insulin Human Regular 20 units/ Amino Acids/ Dextrose 2,086.0482 ml @ 83 mls/hr Q24H IV-CENTRAL ; Start 09/25/16 at 09:30; Status Cancel Sodium Acetate 59 meq/Potassium Chloride 20 meq/ Potassium Phosphate 90 meq/ Magnesium Chloride 10 meq/ Calcium Chloride 9 meq/ Multivitamins 10 ml/Folic Acid 1 mg/Famotidine 40 mg/Insulin Human Regular 20 units/ Amino Acids/ Dextrose 2,086.0482 ml @ 83 mls/hr Q24H IV-CENTRAL Last administered on 20:35; Start 09/25/16 at 20:00; Stop 09/27/16 at 09:05; Status DC Vancomycin HCl/ Sodium Chloride (Vancomycin Inj/ NS 500 ml Inj) 515 ml @ 250 mls/hr Q12H IV Last administered on 09/29/16 12:06; Start 09/26/16 at 12:00; Stop 09/29/16 at 15:53; Status DC Miscellaneous Information SPECIFIC LAB TO BE AZUCENA... ONCE ONCE .XX ; Start 09/27 at 23:45; Stop 09/27/16 at 23:46; Status DC Diatrizoate Meglum/ Diatrizoate Sod 120 ml 120 ml STK-MED ONCE NG ; Start at 10:21; Stop 09/26/16 at 10:22; Status DC Potassium Acetate/ Potassium Phosphate/ Magnesium Chloride/Calcium Chloride/ Multivitamins/ Folic Acid/ Famotidine/ Insulin Human Regular/Amino Acids/ Dextrose (Potassium Acetate Inj/ Potassium Phosphate Inj/ Magnesium Chloride Inj / Calcium Chlor... 2,080.5937 ml @ 83 mls/hr Q24H IV-CENTRAL Last administered on 09/30/16 20:34; Start 09/27/16 at 20:00; Stop 10/01/16 at 09:06; Status DC Benzocaine/ Menthol 1 lozenge 1 lozenge UNSCH PRN BUCCAL sore throat; Start at 16:00 Sodium Chloride/ Sterile Water (Sodium Chloride 23.4% Inj/Sterile Water For Inj ) 1,009.625 ml @ 15 mls/hr Q24H IV Last administered on 10/02/16 17:04; Start 09/28/16 at 17:00 Miscellaneous Information SPECIFIC LAB TO BE AZUCENA... ONCE ONCE .XX ; Start 10/01 at 23:45; Stop 10/01/16 at 23:46; Status Cancel Phenol (Chloraseptic [place]) 2 spray Q2H PRN OROPHARYNG sore throat; Start 09/30 at 10:00 Diatrizoate Meglum/ Diatrizoate Sod 18 ml 18 ml ONCE ONCE PO Last administered on 09/30/16 12:55; Start 09/30/16 at 11:30; Stop 09/30/16 at 11:31 ; Status DC Micafungin Sodium 100 mg/Sodium Chloride 100 ml @ 100 mls/hr Q24H IV Last administered on 10/02/16 11:30; Start 09/30/16 at 13:00 Linezolid (Zyvox 600 Mg Premix) 300 ml @ 300 mls/hr Q12H IV Last administered on 10/02/16 23:55; Start 09/30/16 at 12:00 Iohexol 97 ml 97 ml STK-MED ONCE IV ; Start 09/30/16 at 19:59; Stop 09/30/16 at 20:00; Status DC Magnesium Chloride/Calcium Chloride/ Multivitamins/ Folic Acid/ Famotidine/ Insulin Human Regular/Amino Acids/Dextrose (Magnesium Chloride Inj/ Calcium Chloride Inj/Mvi-12 Inj/ Folvite Inj/ Pepcid Inj/ NovoLIN R (IV INFUSION)/ Clinimix .) 2,026.0937 ml @ 83 mls/hr Q24H IV-CENTRAL Last administered on 10/02/16 17:14; Start 10/01/16 at 20:00 Miscellaneous Medication (ASP Crit: Necrotizing pancreatitis) 1 UNSCH X1 PRN .XX PHARMACY DOCUMENTATION; Start 10/01/16 at 09:15; Stop 10/02/16 at 09:14; Status DC Miscellaneous Medication ([facility] Information) 1 UNSCH X1 PRN XX PHARMACY DOCUMENTATION; Start 10/01/16 at 09:15; Stop 10/02/16 at 09:14; Status DC Miscellaneous Medication 1 1 UNSCH X1 PRN XX PHARMACY DOCUMENTATION; Start at 09:15; Stop 10/02/16 at 09:14; Status DC Meropenem/Sodium Chloride (Merrem Inj/NS Inj) 100 ml @ 200 mls/hr Q8H IV Last administered on 10/03/16 09:24; Start 10/01/16 at 10:00 Sodium Chloride (NS Flush) See Protocol DAILY IV FLUSH Last administered on 07:51; Start 10/02/16 at 09:00 Sodium Chloride (NS Flush) See Protocol UNSCH PRN IV FLUSH SEE PROTOCOL TABLE; Start 10/01/16 at 17:15 Heparin Sodium (Porcine) (Heparin Central Flush) See Protocol DAILY IV FLUSH Last administered on 10/02/16 07:50; Start 10/02/16 at 09:00 Heparin Sodium (Porcine) (Heparin Central Flush) See Protocol UNSCH PRN IV FLUSH SEE PROTOCOL TABLE; Start 10/01/16 at 17:15 Sodium Chloride (NS Flush) UNSCH PRN IV FLUSH SEE PROTOCOL TABLE; Start at 17:15 A/P Assessment and Plan A/P 1. Pancreatic Abscess: recent "pancreas surgery" at by Dr. Mathias approx [address] ago for pseudocyst. [address] Abd/Pelvis .1 x 7 cm abscess at site of previous pseudocyst on July 07, complex 7.3 x 3.8 presumed pseudocyst at aortic bifurcation, similar to July 07 images. Patient is sp exploratory laparotomy, irrigation and drainage of pancreatic abscess. Management as per general surgery. Pain control with morphine COURSE DEVELOPER. Follow-up upper GI series shows suspected gastric perforation at the distal inferior stomach. Per general surgery, continue ice chips and TPN. Absolute nothing by mouth. plan for upper GI series today. continue Micafungin, Meropenem and Zyvox- monitor CBC. ID following. follow the repeated blood cultures. 2. Hypercalcemia: Improving. IVF for hydration. 3. Leukocytosis: continue antibiotics as noted above- monitor CBC. ID following. 4. Alcohol Abuse: reports h/o alcohol abuse, however states he quit. Continue to monitor for possible withdrawal. 5. COPD: Chronic Respiratory Failure. Stable. Resumed home MDI/Neb. continue O2 to keep o2 sat more than 92%. 6. DM: Sliding scale w/ Accu-Cheks. Hold Metformin. Will continue insulin Levemir and regular in the TPN. 7. HTN: Improving continue clonidine patch to TTS 3. 8.mild hyperkalemia-improved- being adjust through TPN and continue to monitor- previously d/w the pharmacist. 9-hyperphosphatemia.; adjust through TPN- will monitor DVT prophylaxis with subq Lovenox. Rick Rahman MD Oct 03, 2016 10:32
--- NOTE | 2016-10-03 11:46 | HHI.IDPN ---
Note Infectious Disease Note Patient feels weak. Says he feels okay. No nausea. On TPN and has NG tube. Afebrile. CT of abdomen shows multiple fluid collections. Upper GI study ordered. Presented to [facility] on September 16 with abdominal pain and also nausea and vomiting. Post irrigation and debridement of pancreatic abscess which was a large abscess and also pancreatic necrosectomy. 2nd surgery for same. PAST MEDICAL HISTORY: 1. Hepatitis C. 2. COPD. 3. Diabetes mellitus. 4. Alcohol abuse. 5. Congestive heart failure. 6. COPD. 7. History of appendectomy. 8. Patient underwent pancreatic necrosectomy on August 26, 2016. ALLERGIES: PENICILLIN. MEDICATIONS: 1. Ertapenem. 2. Micafungin. 3. Zyvox. SOCIAL HISTORY: The patient smoked two packs of cigarettes a day up until June of 2016. Alcohol use up until April of 2016. No illicit drugs. OBJECTIVE: Vital Signs Date Time Temp Pulse Resp B/P Pulse Ox O2 Delivery O2 Flow Rate FiO2 10/03/16 08:00 95.5 84 17 145/79 99 10/03/16 06:00 18 10/03/16 04:00 Nasal Cannula 1.00 10/03/16 00:00 98.1 88 18 125/74 100 10/03/16 00:00 Nasal Cannula 1.00 10/02/16 22:00 16 10/02/16 20:00 97.8 84 18 134/78 99 10/02/16 20:00 Nasal Cannula 1.00 10/02/16 17:27 98 21 10/02/16 16:00 95.6 77 16 109/69 98 10/02/16 12:00 98.4 95 18 134/78 99 10/02/16 10/02/16 10/03/16 15:00 23:00 07:00 Intake Total 3682 ml 1449 ml 1172 ml Output Total 505 ml 700 ml 700 ml Balance 3177 ml 749 ml 472 ml Intake Oral 0 ml 240 ml IV Total 1435 ml 374 ml 482 ml TPN/PPN 2019 ml 745 ml 615 ml Lipid 228 ml 90 ml 75 ml Output Urine Total 500 ml 700 ml 550 ml Gastric Drainage Total 0 ml 0 ml 150 ml Drainage Total 5 ml 0 ml 0 ml # Bowel Movements 1 0 0 Laboratory Tests Test 10/02/16 05:48 White Blood Count 25.0 TH/MM3 Red Blood Count 3.68 MIL/MM3 Hemoglobin 8.7 GM/DL Hematocrit 26.8 % Mean Corpuscular Volume 72.7 FL Mean Corpuscular Hemoglobin 23.6 PG Mean Corpuscular Hemoglobin 32.5 % Concent Red Cell Distribution Width 16.8 % Platelet Count 366 TH/MM3 Mean Platelet Volume 9.6 FL Neutrophils (%) (Auto) 77.4 % Lymphocytes (%) (Auto) 9.5 % Monocytes (%) (Auto) 10.2 % Eosinophils (%) (Auto) 2.6 % Basophils (%) (Auto) 0.3 % Neutrophils # (Auto) 19.3 TH/MM3 Lymphocytes # (Auto) 2.4 TH/MM3 Monocytes # (Auto) 2.5 TH/MM3 Eosinophils # (Auto) 0.6 TH/MM3 Basophils # (Auto) 0.1 TH/MM3 CBC Comment AUTO DIFF Differential Comment AUTO DIFF CONFIRMED Platelet Estimate HIGH Platelet Morphology Comment NORMAL Target Cells 1+ Ovalocytes 1+ Laboratory Tests Test 10/02/16 05:48 Sodium Level 131 MEQ/L Potassium Level 5.0 MEQ/L Chloride Level 99 MEQ/L Carbon Dioxide Level 24.1 MEQ/L Anion Gap 8 MEQ/L Blood Urea Nitrogen 28 MG/DL Creatinine 1.14 MG/DL Estimat Glomerular Filtration 78 ML/MIN Rate Random Glucose 106 MG/DL Calcium Level 10.1 MG/DL Microbiology Date/Time Procedure Status Source Growth 09/30/16 18:00 Gram Stain - Final Complete Wound Abdomen 09/30/16 18:00 Wound Culture - Final Complete Wound Abdomen NO GROWTH IN 72 HRS.--AEROBICALLY OR ... 10/01/16 10:20 Aerobic Blood Culture - Preliminary Resulted Blood Line NO GROWTH IN 2 DAYS 10/01/16 10:20 Anaerobic Blood Culture - Preliminary Resulted Blood Line NO GROWTH IN 2 DAYS 10/02/16 05:48 Aerobic Blood Culture - Preliminary Resulted Blood Peripheral NO GROWTH IN 1 DAY 10/02/16 05:48 Anaerobic Blood Culture - Preliminary Resulted Blood Peripheral NO GROWTH IN 1 DAY IMAGING: Chest X-Ray 10/01/16 0000 Signed Impressions: Service Date/Time: Saturday, October 01, 2016 17:03 - CONCLUSION: 1. Left- sided PICC line has its tip in the superior vena cava in good position. 2. Perihilar atelectasis is stable. Adiel Noland MD Abdomen/Pelvis CT 09/30/16 0000 Signed Impressions: Service Date/Time: Friday, September 30, 2016 18:41 - CONCLUSION: 1. Multiple fluid collections seen associated with the pancreas and the root of the mesentery. The fluid collection associated with the pancreatic tail has increased in size from the prior study while the remaining collections are essentially stable. Hubert Rodrigues Jr., MD Upper GI Series 09/26/16 0600 Signed Impressions: Service Date/Time: Monday, September 26, 2016 08:53 - CONCLUSION: Suspected gastric perforation at the inferior distal aspect of the stomach with a collection seen inferior to the distal stomach and anterior to the duodenum. Mason Monge MD Abdomen/Pelvis CT 09/24/16 0000 Signed Impressions: Service Date/Time: Saturday, September 24, 2016 06:57 - CONCLUSION: 1. The peripancreatic fluid collections adjacent to the tail the pancreas and pancreatic head have decreased in size, as above. Similar to prior examination , the collection adjacent to the pancreatic head contains air and thick fluid like material. 2. There is left lower lobe collapse/atelectasis that is new since the prior CT. Mason Ceja MD PHYSICAL EXAMINATION: GENERAL: No acute distress. Awake alert and oriented. HEENT: The sclerae are pale. Oropharynx with no visible lesions. NECK: Supple without adenopathy. LUNGS: Decreased breath sounds. HEART: Irregular rate and rhythm. No murmurs, rubs or gallops. ABDOMEN: Bowel sounds diminished. flat, soft, Non tender. EXTREMITIES: No clubbing or cyanosis or edema. SKIN: No rash. NEUROLOGIC: Alert and oriented. No gross focal findings. PSYCHIATRIC: Calm and cooperative. IMPRESSION: 1. Pancreatic abscess. Status post drainage and pancreatic necrosectomy. Wound culture has E. coli R to Levaquin. Also Lou. Recurrent abdominal fluid collections. 2. Leukocytosis. Probable related to intraabdominal infection. 3. Penicillin allergy. RECOMMENDATIONS: 1. Continue Zyvox. 2. Continue Micafungin. 3. Continue Ertapenem - E coli resistant and allergy to Penicillin. 4. Monitor temp and white blood cell count. Maxime Hernandez MD Oct 03, 2016 11:46
--- NOTE | 2016-10-03 11:50 | HHI.PR ---
Subjective Subjective Notes Resting in bed No complaints Objective Vitals/I&O Vital Signs Date Time Temp Pulse Resp B/P Pulse Ox O2 Delivery O2 Flow Rate FiO2 10/03/16 08:00 95.5 84 17 145/79 99 10/03/16 04:00 Nasal Cannula 1.00 10/02/16 17:27 21 Labs Date/Time Procedure Status Source Growth 10/02/16 05:48 Aerobic Blood Culture - Preliminary Resulted Blood Peripheral NO GROWTH IN 1 DAY 10/02/16 05:48 Anaerobic Blood Culture - Preliminary Resulted Blood Peripheral NO GROWTH IN 1 DAY 09/30/16 18:00 Gram Stain - Final Complete Wound Abdomen 09/30/16 18:00 Wound Culture - Final Complete Wound Abdomen NO GROWTH IN 72 HRS.--AEROBICALLY OR ... 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 I reviewed and agree with the findings presented. I attest that I had a [id number] encounter with the patient on the same day, and personally performed and documented my assessment and findings in the medical record. abdominal exam stable, non-tender patient feels better Sabine Montague Oct 03, 2016 11:50 Gold Nicole MD Oct 05, 2016 13:42
[2016-10-03 12:00] VITALS: BP 131/70; PULSE 85; RESP 17; TEMP 99; O2SAT 99
[2016-10-03] MEDS: LINEZOLID 600 MG PREMIX 300 ML IV SCH ×2 (12:35→23:08)
[2016-10-03] MEDS: MICAFUNGIN INJ 100 MG in SODIUM CHLORIDE 0.9% INJ 100 ML IV SCH (12:38)
--- NOTE | 2016-10-03 16:03 | RADRPT ---
EXAM DATE/TIME: 10/03/2016 15:01 [facility] COMPARISON: GASTROGRAFIN GI SERIES, September 26, 2016, 8:53. INDICATIONS : Evaluate for previous perforation. FLUORO TIME: 2.8 minutes IMAGE COUNT: 6 CONTRAST: 1. MD [place] MEDICAL HISTORY : Hypertension. Chronic obstructive pulmonary disease. SURGICAL HISTORY : G-tube placed and removed ENCOUNTER: Subsequent ACUITY: 3 months PAIN SCORE: Non-responsive. LOCATION: Bilateral abdomen. FINDINGS: Patient's nasogastric tube was not across the GE junction. Under fluoroscopic guidance tube was gently advanced back into the stomach. Dilute Gastrografin was instilled through the nasogastric filling a very atonic stomach. There was very little movement of the dilute Gastrografin. Patient was allowed to lay in the department for 30 minutes and follow-up CT scan obtained. CONCLUSION: I see no obvious leak however the examination is limited. Bulk of the Gastrografin tries to reflux b ack into the esophagus. Kermit Rollins MD FACR on October 03, 2016 at 15:55 Board Certified Radiologist. This report was verified electronically.
--- NOTE | 2016-10-03 16:03 | RADRPT ---
EXAM DATE/TIME: 10/03/2016 15:30 [facility] COMPARISON: CT ABDOMEN & PELVIS W CONTRAST, September 30, 2016, 18:41. INDICATIONS : Follow up GI study. Evaluate for obstruction/leak. ORAL CONTRAST: No oral contrast ingested. RADIATION DOSE: 9.96 CTDIvol (mGy) MEDICAL HISTORY : Hypertension. Chronic obstructive pulmonary disease. Diabetes SURGICAL HISTORY : Appendectomy. ENCOUNTER: Initial ACUITY: 1 day PAIN SCALE: 5/10 LOCATION: Bilateral abdomen TECHNIQUE: Volumetric scanning of the abdomen was performed. Using automated exposure control and adjustment of the mA and/or kV according to patient size, radiation dose was kept as low as reasonably achievable to obtain optimal diagnostic quality images. DICOM format image data is available electronically for review and comparison. FINDINGS: CT scan was performed following Gastrografin upper GI. Minimal consolidative changes are present in the left base. Nasogastric tube is across the GE junction. Radiographic contrast is present in the stomach passing into the second portion of the duodenum. There is a surgical drain entering from the right with the tip terminating in the left upper quadrant. There is bowel wall thickening in the second portion of the duodenum. There is a small fluid collection adjacent to the second portion of the duodenum measuring approximat antonio 5 cm, smaller than what was described on 09/30/16. This looks like a small abscess. There is no obvious contrast extravasation into this. Radiographic contrast is present in the small bowel. Air-fluid levels are present in the colon. CONCLUSION: 1. Small residual abscess anterior to the second portion of the duodenum in somewhat of a precarious place to drain percutaneously. There is no obvious extravasation of contrast into this. 2. Nasogastric tube was repositioned into the stomach. Kermit Rollins MD FACR on October 03, 2016 at 15:51 Board Certified Radiologist. This report was verified electronically.
[2016-10-03] MEDS: SODIUM CHLORIDE 23.4% INJ 38.5 MEQ in WATER STERILE FOR INJ 1,000 ML IV SCH (17:51)
[2016-10-03 20:00] VITALS: BP_SYST 124; BP_SYST 136; BP_DIAS 65; BP_DIAS 73; PULSE 77; PULSE 96; RESP 18; TEMP 98; TEMP 98.2; O2SAT 97; O2SAT 98
[2016-10-03] MEDS: CALCIUM CHLORIDE IV-CENTRAL SCH ×7 (20:00)
[2016-10-03] MEDS: [UNRECOGNIZED DRUG - OTHER] IV-CENTRAL SCH ×7 (20:00)
[2016-10-03] MEDS: MAGNESIUM CHLORIDE IV-CENTRAL SCH ×7 (20:00)
[2016-10-03] MEDS: MULTIVITAMIN IV-CENTRAL SCH ×7 (20:00)
[2016-10-03] MEDS: FAT EMULSION 20% INJ 250 ML (@10 mls/hr) IV-CENTRAL SCH (20:11)
[2016-10-03] MEDS: ENOXAPARIN SODIUM 40 MG/0.4 ML SYRINGE SQ SCH (20:12)
[2016-10-04] VITALS: BP 123/72; PULSE 77; RESP 16; TEMP 97.7; O2SAT 97
[2016-10-04] MEDS: MEROPENEM INJ 1,000 MG in SODIUM CHLORIDE 0.9% INJ 100 ML IV SCH ×3 (02:32→17:26)
[2016-10-04] MEDS: PCA - TOTAL MG MORPHINE DELIVERED PER SHIFT SCH ×3 (05:09→22:00)
[2016-10-04] MEDS: INSULIN ASPART SUPPLEMENTAL SCALE SQ SCH ×3 (06:00→17:58)
[2016-10-04 06:05] LABS: AUTOMATED NEUTROPHIL # 16.5 TH/MM3 (1.8-7.7); BASOPHIL # 0.1 TH/MM3 (0-0.2); BASOPHIL % 0.3 % (0.0-2.0); EOSINOPHIL # 0.5 TH/MM3 (0-0.4); EOSINOPHIL % 2.5 % (0.0-4.0); HEMATOCRIT 25.7 % (39.0-51.0); LYMPH % 9.8 % (9.0-44.0); LYMPHOCYTE # 2.1 TH/MM3 (1.0-4.8); MEAN CELL VOLUME 73.3 FL (80.0-100.0); MEAN CORPUSCULAR HEMOGLOBIN 23.4 PG (27.0-34.0); MEAN CORPUSCULAR HGB CONC 31.9 % (32.0-36.0); MONO % 10.6 % (0.0-8.0); NEUT % 76.8 % (16.0-70.0); PLATELET COUNT 352 TH/MM3 (150-450); RED CELL DISTRIBUTION WIDTH 16.5 % (11.6-17.2); WHITE BLOOD COUNT 21.4 TH/MM3 (4.0-11.0)
[2016-10-04 06:07] LABS: BICARBONATE 24.5 MEQ/L (21.0-32.0); POTASSIUM 4.3 MEQ/L (3.5-5.1)
[2016-10-04 06:15] LABS: HEMO FLAGS AUTO DIFF
[2016-10-04 07:46] LABS: SCAN/DIFF AUTO DIFF CONFIRMED
[2016-10-04 08:00] VITALS: BP 121/78; PULSE 84; RESP 17; TEMP 98.2; O2SAT 97
[2016-10-04] MEDS: SODIUM CHLORIDE 0.9% FLUSH 10 ML FLUSH IV FLUSH SCH ×3 (08:30→20:09)
[2016-10-04] MEDS: INSULIN DETEMIR 100 UNITS/ML VIAL SQ SCH ×2 (08:31→20:34)
[2016-10-04] MEDS: BUDESONIDE-FORMOTEROL 160/4.5 MCG INHALER INH SCH ×2 (08:32→20:38)
--- NOTE | 2016-10-04 09:20 | HHI.PR ---
Subjective Remarks in no acute distress. looks better today. NG tube has been removed. pain is controlled. no nausea or vomiting. afebrile. d/w the RN. Objective Vitals Vital Signs Date Time Temp Pulse Resp B/P Pulse Ox O2 Delivery O2 Flow Rate FiO2 10/04/16 08:00 98.2 84 17 121/78 97 10/04/16 05:09 20 10/04/16 00:00 97.7 77 16 123/72 97 10/03/16 20:00 98.2 96 18 124/73 97 10/03/16 13:04 16 10/03/16 12:00 99.0 85 17 131/70 99 I/O 10/03/16 10/03/16 10/03/16 10/04/16 10/04/16 10/04/16 07:00 15:00 23:00 07:00 15:00 23:00 Intake Total 1172 ml 1214 ml 1833 ml Output Total 700 ml 750 ml 400 ml 855 ml Balance 472 ml 464 ml -400 ml 978 ml Intake Oral 0 ml IV Total 482 ml 481 ml 1833 ml TPN/PPN 615 ml 655 ml Lipid 75 ml 78 ml Output Urine Total 550 ml 700 ml 400 ml 500 ml Gastric Drainage Total 150 ml 50 ml 350 ml Drainage Total 0 ml 5 ml # Bowel Movements 0 0 0 0 Result Diagram: 10/04/16 0530 10/04/16 0530 Imaging Last Impressions Abdomen CT 10/03/16 1526 Signed Impressions: Service Date/Time: Monday, October 03, 2016 15:30 - CONCLUSION: 1. Small residual abscess anterior to the second portion of the duodenum in somewhat of a precarious place to drain percutaneously. There is no obvious extravasation of contrast into this. 2. Nasogastric tube was repositioned into the stomach. Kermit Rollins MD FACR Upper GI Series 10/03/16 0000 Signed Impressions: Service Date/Time: Monday, October 03, 2016 15:01 - CONCLUSION: I see no obvious leak however the examination is limited. Bulk of the Gastrografin tries to reflux back into the esophagus. Kermit Rollins MD FACR Chest X-Ray 10/01/16 0000 Signed Impressions: Service Date/Time: Saturday, October 01, 2016 17:03 - CONCLUSION: 1. Left- sided PICC line has its tip in the superior vena cava in good position. 2. Perihilar atelectasis is stable. Adiel Noland MD Abdomen/Pelvis CT 09/30/16 0000 Signed Impressions: Service Date/Time: Friday, September 30, 2016 18:41 - CONCLUSION: 1. Multiple fluid collections seen associated with the pancreas and the root of the mesentery. The fluid collection associated with the pancreatic tail has increased in size from the prior study while the remaining collections are essentially stable. Hubert Rodrigues Jr., MD Objective Remarks GENERAL: looks better today- NG tube has been removed. CARDIOVASCULAR: Regular rate and irregular rhythm without murmurs, gallops, or rubs. RESPIRATORY: Clear to auscultation. Breath sounds equal bilaterally. No wheezes , rales, or rhonchi. GASTROINTESTINAL: Abdomen soft, non-tender, nondistended. drain in place. MUSCULOSKELETAL: Extremities without clubbing, cyanosis, or edema. NEURO: Alert & Oriented x4 to person, place, time, situation. Moves all ext x4 Procedures Right IJ central line sp Exploratory laparotomy, irrigation and debridement of peripancreatic abscess and necrosectomy PICC line placement Medications and IVs Current Medications Ondansetron HCl (Zofran Inj) 4 mg ONCE ONCE IVP Last administered on 09/16/16 19:48; Start 09/16/16 at 19:00; Stop 09/16/16 at 19:01; Status DC Sodium Chloride (NS Flush) 2 ml UNSCH PRN IV FLUSH FLUSH AFTER USING IV ACCESS Last administered on 09/16/16 19:48; Start 09/16/16 at 19:00; Stop 09/16/16 at 21: 05; Status DC Hydromorphone HCl 1 mg 1 mg ONCE ONCE IVS Last administered on 09/16/16 19:48 ; Start 09/16/16 at 19:00; Stop 09/16/16 at 19:01; Status DC Sodium Chloride 500 ml @ 500 mls/hr BOLUS ONCE IV Last administered on 19:47; Start 09/16/16 at 19:00; Stop 09/16/16 at 19:59; Status DC Aztreonam 2000 mg/ Sodium Chloride 100 ml @ 200 mls/hr ONCE STAT IV Last administered on 09/16/16 22:52; Start 09/16/16 at 20:25; Stop 09/16/16 at 20:54; Status DC Metronidazole 100 ml @ 100 mls/hr ONCE STAT IV Last administered on 09/16/16 21:57; Start 09/16/16 at 20:25; Stop 09/16/16 at 21:24; Status DC Ciprofloxacin/ Dextrose 200 ml @ 200 mls/hr Q12H IV Last administered on 10:59; Start 09/17/16 at 09:00; Stop 09/20/16 at 20:42; Status DC Metronidazole 100 ml @ 100 mls/hr Q8H IV Last administered on 09/20/16 11:39 ; Start 09/17/16 at 04:00; Stop 09/20/16 at 20:42; Status DC Sodium Chloride (NS 1000 ml Inj) 1,000 ml @ 125 mls/hr Q8H IV Last administered on 09/19/16 09:59; Start 09/16/16 at 20:54; Stop 09/19/16 at 20:15 ; Status DC Sodium Chloride (NS Flush) 2 ml UNSCH PRN IV FLUSH FLUSH AFTER USING IV ACCESS ; Start 09/16/16 at 21:00 Sodium Chloride (NS Flush) 2 ml BID IV FLUSH Last administered on 10/02/16 20: 29; Start 09/16/16 at 21:00 Ondansetron HCl (Zofran Inj) 4 mg Q6H PRN IVP NAUSEA OR VOMITING Last administered on 09/30/16 12:54; Start 09/16/16 at 21:00 Acetaminophen (Tylenol) 650 mg Q6H PRN PO FEVER; Start 09/16/16 at 21:00; Status Hold Morphine Sulfate (Morphine Inj) 2 mg Q3H PRN IV Pain 6-10 Last administered on 09/19/16 15:26; Start 09/16/16 at 21:00; Stop 09/19/16 at 19:31; Status DC Oxycodone HCl (Roxicodone) 5 mg Q4H PRN PO PAIN SCALE 3 TO 5 Last administered on 09/16/16 22:52; Start 09/16/16 at 21:00; Status Hold Senna/Docusate Sodium (Fátima-Colace) 1 tab BID PO Last administered on 20:08; Start 09/16/16 at 21:00; Status Hold Magnesium Hydroxide (Milk Of Magnesia Liq) 30 ml Q12H PRN PO MILD - MODERATE CONSTIPATION; Start 09/16/16 at 21:00; Status Hold Sennosides (Senokot) 17.2 mg Q12H PRN PO MODERATE - SEVERE CONSTIPATION; Start 09/16/16 at 21:00; Status Hold Bisacodyl (Dulcolax Supp) 10 mg DAILY PRN RECTAL SEVERE CONSITIPATION; Start at 21:00 Lactulose (Lactulose Liq) 30 ml DAILY PRN PO SEVERE CONSITIPATION; Start at 21:00; Status Hold Hydromorphone HCl (Dilaudid Pf Inj) 1 mg ONCE ONCE IV PUSH ; Start 09/16/16 at 22:15; Stop 09/16/16 at 22:16; Status DC Albuterol Sulfate (Albuterol Neb) 2.5 mg QID NEB PRN NEB SHORTNESS OF BREATH Last administered on 09/27/16 03:09; Start 09/17/16 at 02:15 Allopurinol (Zyloprim) 300 mg DAILY PO Last administered on 09/19/16 09:58; Start 09/17/16 at 09:00; Status Hold Amlodipine Besylate (Norvasc) 5 mg BID PO Last administered on 09/19/16 09:58 ; Start 09/17/16 at 09:00; Status Hold Budesonide/ Formoterol Fumarate (Symbicort 160-4.5 Inh) 2 puff Q12HR INH Last administered on 10/04/16 08:32; Start 09/17/16 at 09:00 Clonidine (Catapres) 0.2 mg Q12HR PO Last administered on 09/19/16 09:58; Start 09/17/16 at 09:00; Status Hold Gabapentin (Neurontin) 600 mg TID PO Last administered on 09/19/16 09:58; Start 09/17/16 at 09:00; Status Hold Roflumilast (Daliresp) 500 mcg DAILY PO Last administered on 09/19/16 09:58; Start 09/17/16 at 09:00; Status Hold Thiamine HCl (Vitamin B1) 100 mg DAILY PO Last administered on 09/18/16 08:19 ; Start 09/17/16 at 09:00; Status Hold Zolpidem Tartrate (Ambien) 5 mg HS PRN PO insomnia Last administered on 22:57; Start 09/17/16 at 02:15; Status Hold Folic Acid (Folate) 1 mg DAILY PO Last administered on 09/18/16 08:18; Start 09/17/16 at 09:00; Status Hold Amylase/Lipase/ Protease (Creon 24-76-120) 2 cap TID PO Last administered on 17:07; Start 09/17/16 at 13:00; Status Hold Iohexol 98 ml 98 ml STK-MED ONCE IV Last administered on 09/17/16 15:40; Start 09/17/16 at 15:40; Stop 09/17/16 at 15:41; Status DC Lactated Ringer's 1,000 ml @ 30 mls/hr Q24H PRN IV SEE LABEL COMMENTS; Start at 22:45; Stop 09/19/16 at 19:23; Status DC Sodium Chloride (NS 500 ml Inj) 500 ml @ 30 mls/hr [id number] PRN IV SEE LABEL COMMENTS; Start 09/18/16 at 22:45; Stop 09/19/16 at 19:23; Status DC Metoprolol Tartrate (Lopressor) 25 mg RUBBER SPLICER PRN PO SEE LABEL COMMENTS; Start 09/18/16 at 22:45; Stop 09/21/16 at 22:44; Status DC Povidone Iodine (Betadine 5% Antisepsis Kit) 1 applic RUBBER SPLICER PRN EACH NARE SEE LABEL COMMENTS; Start 09/18/16 at 22:45; Stop 09/21/16 at 22:44; Status DC Chlorhexidine Gluconate (Chlorhexidine 2% Cloth) 3 pack RUBBER SPLICER PRN TOPICAL SEE LABEL COMMENTS; Start 09/18/16 at 22:45; Stop 09/21/16 at 22:44; Status DC Insulin Human Regular See Protocol Table ... RUBBER SPLICER PRN SQ SEE PROTOCOL TABLE ; Start 09/18/16 at 22:45; Stop 09/21/16 at 22:44; Status DC Potassium Chloride (KCl 10 Meq Premix Inj) 100 ml @ 100 mls/hr BOLUS ONCE IV Last administered on 09/19/16 11:22; Start 09/19/16 at 11:00; Stop 09/19/16 at 11:59; Status DC Midazolam HCl (Versed Inj) 2 mg STK-MED ONCE .ROUTE Last administered on 17:03; Start 09/19/16 at 17:02; Stop 09/19/16 at 17:03; Status DC Dextrose (D50w (Vial) Inj) 50 ml UNSCH PRN IV HYPOGLYCEMIA-SEE COMMENTS; Start 09/19/16 at 19:30; Status UNV Glucagon (Glucagon Inj) 1 mg UNSCH PRN OTHER HYPOGLYCEMIA-SEE COMMENTS; Start 09/19/16 at 19:30; Status UNV Insulin Aspart (NovoLOG SUPPLEMENTAL SCALE) 1 Q6HR SQ Last administered on 09/26 12:34; Start 09/20/16 at 00:00 Dextrose (D50w (Syr) Inj) 50 ml UNSCH PRN IV HYPOGLYCEMIA-SEE COMMENTS; Start 09/19/16 at 19:30 Glucagon (Glucagon Inj) 1 mg UNSCH PRN OTHER HYPOGLYCEMIA-SEE COMMENTS; Start 09/19/16 at 19:30 Labetalol HCl (Trandate Inj) 100 mg STK-MED ONCE .ROUTE Last administered on 19:30; Start 09/19/16 at 19:27; Stop 09/19/16 at 19:28; Status DC Morphine Sulfate (Morphine Inj) 3 mg Q1H PRN IV Pain 6-10 Last administered on 09/20/16 17:15; Start 09/19/16 at 20:00; Status Hold Fentanyl Citrate (fentaNYL INJ) 500 mcg STK-MED ONCE .ROUTE ; Start 09/19/16 at 19:33; Stop 09/19/16 at 19:34; Status DC Miscellaneous Information ALL NURSING DEPARTME... UNSCH PRN .XX SEE LABEL COMMENTS; Start 09/19/16 at 19:22; Stop 09/20/16 at 19:21; Status DC Multivitamins 10 ml/Folic Acid 1 mg/Insulin Human Regular 20 units/ Famotidine 40 mg/ Amino Acids/ Electrolytes/ Dextrose 2,014.4 ml @ 83 mls/hr Q24H IV- CENTRAL Last administered on 09/22/16 20:39; Start 09/20/16 at 20:00; Stop at 19:59; Status DC Fat Emulsion Intravenous 250 ml @ 10 mls/hr Q24H IV-CENTRAL Last administered on 10/03/16 20:11; Start 09/20/16 at 20:00 Potassium Chloride/Sodium Chloride (1/2 NS + KCl 20 Meq Inj) 1,000 ml @ As Directed STK-MED ONCE .ROUTE Last administered on 09/19/16 20:12; Start at 20:07; Stop 09/19/16 at 20:08; Status DC Morphine Sulfate (*morphine INJ PERIprocedure ONLY) 8 mg STK-MED ONCE .ROUTE Last administered on 09/19/16 20:09; Start 09/19/16 at 20:08; Stop 09/19/16 at 20:09; Status DC Pantoprazole Sodium 40 mg 40 mg Q24H IV PUSH Last administered on 09/19/16 20: 35; Start 09/19/16 at 21:00; Stop 09/20/16 at 09:52; Status DC Potassium Chloride/Sodium Chloride 1,000 ml @ 125 mls/hr Q8H IV Last administered on 09/20/16 03:31; Start 09/19/16 at 20:30; Stop 09/20/16 at 09:52 ; Status DC Potassium Chloride 100 ml @ As Directed STK-MED ONCE .ROUTE ; Start 09/19/16 at 21:07; Stop 09/19/16 at 21:08; Status DC Potassium Chloride 100 ml @ 50 mls/hr Q2H IV Last administered on 09/19/16 23 :35; Start 09/19/16 at 23:00; Stop 09/20/16 at 02:59; Status DC Amino Acids/ Electrolytes/ Dextrose (Clinimix E 4.25/ 25) 1,000 ml @ 83 mls/hr Q12H3M IV-CENTRAL Last administered on 09/20/16 09:33; Start 09/20/16 at 10:00 ; Stop 09/20/16 at 22:02; Status DC Acetaminophen (Ofirmev Inj) 650 mg Q6HR PRN IV FEVER; Start 09/20/16 at 09:30 Labetalol HCl (Trandate Inj) 10 mg Q4H PRN IV PUSH SYS BP GREATER THAN 160 MMHG Last administered on 09/22/16 21:09; Start 09/20/16 at 09:30 Pantoprazole Sodium 40 mg 40 mg DAILY IV PUSH Last administered on 09/20/16 10 :59; Start 09/20/16 at 10:00; Stop 09/20/16 at 14:50; Status DC Sodium Chloride 1,000 ml @ 40 mls/hr Q24H IV Last administered on 09/24/16 08 :28; Start 09/20/16 at 10:00; Stop 09/24/16 at 15:18; Status DC Magnesium Sulfate/ Dextrose (Magnesium Sulfate 1 Gm Premix) 100 ml @ 100 mls/ hr Q1H IV Last administered on 09/20/16 11:39; Start 09/20/16 at 10:00; Stop 09/20/16 at 11:59; Status DC Pantoprazole Sodium (Protonix Inj) 40 mg Q24H IV PUSH Last administered on 09/23 11:48; Start 09/20/16 at 11:30; Stop 09/24/16 at 08:32; Status DC Naloxone HCl (Narcan Inj) 0.4 mg UNSCH PRN IV RESPIRATORY RATE LESS THAN 10; Start 09/20/16 at 14:45 Morphine Sulfate (Morphine 1 Mg/ ml LIVING MANAGER) 30 mg UNSCH IV Last administered on 12:48; Start 09/20/16 at 14:45 LIVING MANAGER Dosage Infused (Pha) 1 1 Q8HR .XX Last administered on 10/04/16 05:09; Start 09/20/16 at 22:00 Magnesium Sulfate/ Dextrose 100 ml @ 100 mls/hr Q1H IV Last administered on 23:49; Start 09/20/16 at 20:00; Stop 09/20/16 at 21:59; Status DC Fluconazole/ Sodium Chloride 100 ml @ 100 mls/hr Q24H IV Last administered on 09/29/16 22:10; Start 09/20/16 at 22:00; Stop 09/30/16 at 11:44; Status DC Piperacillin Sod/ Tazobactam Sod 100 ml @ 200 mls/hr Q6H IV ; Start 09/20/16 at 20:45; Stop 09/20/16 at 20:47; Status DC Ciprofloxacin/ Dextrose 200 ml @ 200 mls/hr Q12H IV Last administered on 11:48; Start 09/20/16 at 23:00; Stop 09/23/16 at 12:10; Status DC Metronidazole (Flagyl 500 Mg Inj) 100 ml @ 100 mls/hr Q6H IV Last administered on 09/29/16 10:17; Start 09/20/16 at 21:00; Stop 09/29/16 at 15:53 ; Status DC Insulin Detemir (Levemir Inj) 5 units Q12HR SQ Last administered on 10/04/16 08:31; Start 09/21/16 at 09:00 Clonidine 1 patch 1 patch Q7D T-DERMAL Last administered on 09/21/16 01:17; Start 09/20/16 at 22:15; Stop 09/24/16 at 08:34; Status DC Potassium Phosphate 15 mmol/ Sodium Chloride 155 ml @ 38.75 mls/ hr ONCE ONCE IV Last administered on 09/21/16 08:54; Start 09/21/16 at 09:00; Stop at 12:59; Status DC Potassium Chloride (KCl 20 Meq Premix Inj) 100 ml @ 50 mls/hr Q2H IV Last administered on 09/21/16 09:50; Start 09/21/16 at 08:00; Stop 09/21/16 at 11:59 ; Status DC Enoxaparin Sodium 40 mg 40 mg Q24H SQ Last administered on 10/03/16 20:12; Start 09/21/16 at 20:00 Potassium Phosphate 15 mmol/ Sodium Chloride 155 ml @ 38.75 mls/ hr ONCE ONCE IV Last administered on 09/21/16 22:25; Start 09/21/16 at 20:00; Stop at 23:59; Status DC Potassium Chloride 100 ml @ 50 mls/hr Q2H IV Last administered on 09/22/16 16 :26; Start 09/22/16 at 12:00; Stop 09/22/16 at 15:59; Status DC Magnesium Sulfate/ Dextrose (Magnesium Sulfate 1 Gm Premix) 100 ml @ 100 mls/ hr ONCE ONCE IV Last administered on 09/22/16 14:24; Start 09/22/16 at 12:00 ; Stop 09/22/16 at 12:59; Status DC Enalaprilat 1.25 mg 1.25 mg Q6H PRN IV PUSH SYS BP GREATER THAN 160 MMHG Last administered on 09/27/16 13:20; Start 09/22/16 at 21:30 Sodium Chloride 11 meq/Sodium Acetate 59 meq/ Potassium Chloride 20 meq/ Potassium Phosphate 60 meq/ Magnesium Chloride 10 meq/ Calcium Chloride 9 meq/ Multivitamins 10 ml/Folic Acid 1 mg/Famotidine 40 mg/Insulin Human Regular 20 units/ Amino Acids/ Dextrose 2,081.9801 ml @ 83 mls/hr Q24H IV-CENTRAL Last administered on 09/24/16 21:45; Start 09/23/16 at 20:00; Stop 09/25/16 at 19:59 ; Status DC Aztreonam 2000 mg/ Sodium Chloride 100 ml @ 200 mls/hr Q8H IV ; Start 09/23/16 at 14:00; Stop 09/23/16 at 14:00; Status DC Azithromycin/ Sodium Chloride (Zithromax Inj/ NS 250 ml Inj) 250 ml @ 250 mls/ hr Q24H IV Last administered on 09/28/16 14:52; Start 09/23/16 at 13:00; Stop 09/29/16 at 09:28; Status DC Miscellaneous Medication (ASP Crit: Doc allergy to Penicillin/ Cephalosp) 1 UNSCH X1 PRN .XX PHARMACY DOCUMENTATION; Start 09/23/16 at 12:15; Stop at 12:15; Status DC Miscellaneous Medication (ASP Crit: Necrotizing pancreatitis) 1 UNSCH X1 PRN .XX PHARMACY DOCUMENTATION; Start 09/23/16 at 12:15; Stop 09/24/16 at 12:15; Status DC Miscellaneous Medication 1 1 UNSCH X1 PRN XX PHARMACY DOCUMENTATION; Start at 12:15; Stop 09/24/16 at 12:15; Status DC Ertapenem/Sodium Chloride (INVanz INJ/NS Inj) 100 ml @ 200 mls/hr Q24H IV Last administered on 09/24/16 15:33; Start 09/23/16 at 14:00; Stop 09/25/16 at 09:07; Status DC Miscellaneous Medication ([facility] [place] [facility] [place] 1 UNSCH X1 PRN XX PHARMACY DOCUMENTATION; Start 09/23/16 at 12:15; Stop 09/24/16 at 12:15; Status DC Propofol (Diprivan 200 Mg/20 ml Inj) 200 mg STK-MED ONCE IV ; Start 09/19/16 at 12:00; Stop 09/23/16 at 14:53; Status DC Phenylephrine HCl 1000 mcg 1,000 mcg STK-MED ONCE IV ; Start 09/19/16 at 12:00; Stop 09/23/16 at 14:53; Status DC Lactated Ringer's 1,000 ml @ As Directed STK-MED ONCE IV ; Start 09/19/16 at 12 :00; Stop 09/23/16 at 14:53; Status DC Sodium Chloride (NS 500 ml Inj) 500 ml @ As Directed STK-MED ONCE IV ; Start at 12:00; Stop 09/23/16 at 14:53; Status DC Iohexol (Omnipaque 350 Inj) 100 ml STK-MED ONCE IV Last administered on 06:59; Start 09/24/16 at 06:59; Stop 09/24/16 at 07:00; Status DC Clonidine 1 patch 1 patch Q7D T-DERMAL Last administered on 10/01/16 09:55; Start 09/24/16 at 11:00 Pharmacy Profile Note (Vancomycin Consult Pharmacy) 0 ml @ 0 mls/hr UNSCH OTHER ; Start 09/24/16 at 09:45; Stop 09/29/16 at 15:53; Status DC Miscellaneous Information 1 1 Q7D T-DERMAL Last administered on 10/01/16 09:56 ; Start 09/24/16 at 11:00 Vancomycin HCl/ Sodium Chloride (Vancomycin Inj/ NS 250 ml Inj) 262.5 ml @ 250 mls/hr Q12H IV Last administered on 09/26/16 01:06; Start 09/24/16 at 12:00; Stop 09/26/16 at 02:02; Status DC Miscellaneous Information SPECIFIC LAB TO BE DRAWN:VANCO TROUGH DATE TO... ONCE ONCE .XX Last administered on 09/25/16 23:45; Start 09/25/16 at 23:45; Stop 09/25/16 at 23:46; Status DC Potassium Phosphate 15 mmol/ Sodium Chloride 155 ml @ 38.75 mls/ hr ONCE ONCE IV Last administered on 09/24/16 17:23; Start 09/24/16 at 16:00; Stop at 19:59; Status DC Ertapenem/Sodium Chloride (INVanz INJ/NS Inj) 50 ml @ 200 mls/hr Q24H IV Last administered on 09/30/16 17:04; Start 09/25/16 at 16:00; Stop 10/01/16 at 09:11 ; Status DC Miscellaneous Medication PLEASE CONCENTRATE ALL... UNSCH OTHER ; Start 09/25/16 at 09:15 Sodium Acetate 59 meq/Potassium Chloride 20 meq/ Potassium Phosphate 90 meq/ Magnesium Chloride 10 meq/ Calcium Chloride 9 meq/ Multivitamins 10 ml/Folic Acid 1 mg/Famotidine 40 mg/Insulin Human Regular 20 units/ Amino Acids/ Dextrose 2,086.0482 ml @ 83 mls/hr Q24H IV-CENTRAL ; Start 09/25/16 at 09:30; Status Cancel Sodium Acetate 59 meq/Potassium Chloride 20 meq/ Potassium Phosphate 90 meq/ Magnesium Chloride 10 meq/ Calcium Chloride 9 meq/ Multivitamins 10 ml/Folic Acid 1 mg/Famotidine 40 mg/Insulin Human Regular 20 units/ Amino Acids/ Dextrose 2,086.0482 ml @ 83 mls/hr Q24H IV-CENTRAL Last administered on 20:35; Start 09/25/16 at 20:00; Stop 09/27/16 at 09:05; Status DC Vancomycin HCl/ Sodium Chloride (Vancomycin Inj/ NS 500 ml Inj) 515 ml @ 250 mls/hr Q12H IV Last administered on 09/29/16 12:06; Start 09/26/16 at 12:00; Stop 09/29/16 at 15:53; Status DC Miscellaneous Information SPECIFIC LAB TO BE AZUCENA... ONCE ONCE .XX ; Start 09/27 at 23:45; Stop 09/27/16 at 23:46; Status DC Diatrizoate Meglum/ Diatrizoate Sod 120 ml 120 ml STK-MED ONCE NG ; Start at 10:21; Stop 09/26/16 at 10:22; Status DC Potassium Acetate/ Potassium Phosphate/ Magnesium Chloride/Calcium Chloride/ Multivitamins/ Folic Acid/ Famotidine/ Insulin Human Regular/Amino Acids/ Dextrose (Potassium Acetate Inj/ Potassium Phosphate Inj/ Magnesium Chloride Inj / Calcium Chlor... 2,080.5937 ml @ 83 mls/hr Q24H IV-CENTRAL Last administered on 09/30/16 20:34; Start 09/27/16 at 20:00; Stop 10/01/16 at 09:06; Status DC Benzocaine/ Menthol 1 lozenge 1 lozenge UNSCH PRN BUCCAL sore throat; Start at 16:00 Sodium Chloride/ Sterile Water (Sodium Chloride 23.4% Inj/Sterile Water For Inj ) 1,009.625 ml @ 15 mls/hr Q24H IV Last administered on 10/03/16 17:51; Start 09/28/16 at 17:00 Miscellaneous Information SPECIFIC LAB TO BE ... ONCE ONCE .XX ; Start 10/01 at 23:45; Stop 10/01/16 at 23:46; Status Cancel Phenol (Chloraseptic Liberal) 2 spray Q2H PRN OROPHARYNG sore throat; Start 09/30 at 10:00 Diatrizoate Meglum/ Diatrizoate Sod 18 ml 18 ml ONCE ONCE PO Last administered on 09/30/16 12:55; Start 09/30/16 at 11:30; Stop 09/30/16 at 11:31 ; Status DC Micafungin Sodium 100 mg/Sodium Chloride 100 ml @ 100 mls/hr Q24H IV Last administered on 10/03/16 12:38; Start 09/30/16 at 13:00 Linezolid (Zyvox 600 Mg Premix) 300 ml @ 300 mls/hr Q12H IV Last administered on 10/03/16 23:08; Start 09/30/16 at 12:00 Iohexol 97 ml 97 ml STK-MED ONCE IV ; Start 09/30/16 at 19:59; Stop 09/30/16 at 20:00; Status DC Magnesium Chloride/Calcium Chloride/ Multivitamins/ Folic Acid/ Famotidine/ Insulin Human Regular/Amino Acids/Dextrose (Magnesium Chloride Inj/ Calcium Chloride Inj/Mvi-12 Inj/ Folvite Inj/ Pepcid Inj/ NovoLIN R (IV INFUSION)/ Clinimix 4.) 2,026.0937 ml @ 83 mls/hr Q24H IV-CENTRAL Last administered on 10/03/16 20:00; Start 10/01/16 at 20:00 Miscellaneous Medication (ASP Crit: Necrotizing pancreatitis) 1 UNSCH X1 PRN .XX PHARMACY DOCUMENTATION; Start 10/01/16 at 09:15; Stop 10/02/16 at 09:14; Status DC Miscellaneous Medication ([facility] [place] [facility] [place] 1 UNSCH X1 PRN XX PHARMACY DOCUMENTATION; Start 10/01/16 at 09:15; Stop 10/02/16 at 09:14; Status DC Miscellaneous Medication 1 1 UNSCH X1 PRN XX PHARMACY DOCUMENTATION; Start at 09:15; Stop 10/02/16 at 09:14; Status DC Meropenem/Sodium Chloride (Merrem Inj/NS Inj) 100 ml @ 200 mls/hr Q8H IV Last administered on 10/04/16 02:32; Start 10/01/16 at 10:00 Sodium Chloride (NS Flush) See Protocol DAILY IV FLUSH Last administered on 08:30; Start 10/02/16 at 09:00 Sodium Chloride (NS Flush) See Protocol UNSCH PRN IV FLUSH SEE PROTOCOL TABLE; Start 10/01/16 at 17:15 Heparin Sodium (Porcine) (Heparin Central Flush) See Protocol DAILY IV FLUSH Last administered on 10/04/16 08:29; Start 10/02/16 at 09:00 Heparin Sodium (Porcine) (Heparin Central Flush) See Protocol UNSCH PRN IV FLUSH SEE PROTOCOL TABLE; Start 10/01/16 at 17:15 Sodium Chloride (NS Flush) UNSCH PRN IV FLUSH SEE PROTOCOL TABLE; Start at 17:15 A/P Assessment and Plan A/P 1. Pancreatic Abscess: recent "pancreas surgery" at by Dr. Mathias approx [address] ago for pseudocyst. 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 Patient is sp exploratory laparotomy, irrigation and drainage of pancreatic abscess. Management as per general surgery. Pain control with morphine LIVING MANAGER. Follow-up upper GI series shows suspected gastric perforation at the distal inferior stomach. however repeated upper GI series with no leak- continue with ice chips and TPN- continue Micafungin, Meropenem and Zyvox- monitor CBC. ID following. repeated blood cultures negative so far. 2. Hypercalcemia: Improving. IVF for hydration. 3. Leukocytosis: continue antibiotics as noted above- monitor CBC. ID following. 4. Alcohol Abuse: reports h/o alcohol abuse, however states he quit. Continue to monitor for possible withdrawal. 5. COPD: Chronic Respiratory Failure. Stable. Resumed home MDI/Neb. continue O2 to keep o2 sat more than 92%. 6. DM: Sliding scale w/ Accu-Cheks. Hold Metformin. Will continue insulin Levemir and regular in the TPN. 7. HTN: Improving continue clonidine patch to TTS 3. 8.mild hyperkalemia-resolved. 9-hyperphosphatemia.; adjust through TPN- will monitor 10-hypercalcemia; will reduce the calcium in TPN- and continue to monitor DVT prophylaxis with subq Lovenox. Rick Rahman MD Oct 04, 2016 09:19
[2016-10-04] MEDS: LINEZOLID 600 MG PREMIX 300 ML IV SCH (11:43)
[2016-10-04 12:00] VITALS: BP 114/72; PULSE 81; RESP 17; TEMP 98.3; O2SAT 98
--- NOTE | 2016-10-04 12:00 | HHI.PR ---
Subjective Subjective Notes Resting in bed Happy to have NGT out Objective Vitals/I&O Vital Signs Date Time Temp Pulse Resp B/P Pulse Ox O2 Delivery O2 Flow Rate FiO2 10/04/16 08:00 98.2 84 17 121/78 97 10/03/16 04:00 Nasal Cannula 1.00 10/02/16 17:27 21 Labs Laboratory Tests Test 10/04/16 05:30 White Blood Count 21.4 Red Blood Count 3.50 Hemoglobin 8.2 Hematocrit 25.7 Mean Corpuscular Volume 73.3 Mean Corpuscular Hemoglobin 23.4 Mean Corpuscular Hemoglobin 31.9 Concent Red Cell Distribution Width 16.5 Platelet Count 352 Mean Platelet Volume 10.3 Neutrophils (%) (Auto) 76.8 Lymphocytes (%) (Auto) 9.8 Monocytes (%) (Auto) 10.6 Eosinophils (%) (Auto) 2.5 Basophils (%) (Auto) 0.3 Neutrophils # (Auto) 16.5 Lymphocytes # (Auto) 2.1 Monocytes # (Auto) 2.3 Eosinophils # (Auto) 0.5 Basophils # (Auto) 0.1 CBC Comment AUTO DIFF Differential Comment AUTO DIFF CONFIRMED Sodium Level 134 Potassium Level 4.3 Chloride Level 102 Carbon Dioxide Level 24.5 Anion Gap 8 Blood Urea Nitrogen 34 Creatinine 0.96 Estimat Glomerular Filtration 95 Rate Random Glucose 111 Calcium Level 10.8 Date/Time Procedure Status Source Growth 10/02/16 05:48 Aerobic Blood Culture - Preliminary Resulted Blood Peripheral NO GROWTH IN 2 DAYS 10/02/16 05:48 Anaerobic Blood Culture - Preliminary Resulted Blood Peripheral NO GROWTH IN 2 DAYS 09/30/16 18:00 Gram Stain - Final Complete Wound Abdomen 09/30/16 18:00 Wound Culture - Final Complete Wound Abdomen NO GROWTH IN 72 HRS.--AEROBICALLY OR ... Cardiovascular: Regular Lungs: Clear Abdomen: Other (abdomen soft; non tender; retention sutures in place ) Extremities: No edema Narrative Exam NGT removed EDER drain removed A/P Assessment and Plan 66 year old male with pancreatic abscess s/p I&D pancreatis abscess with pancreatic necrosectomy -Repeat UGI reviewed---NGT removed -NPO; okay for a few ice chips -Will plan to begin trial of clear liquids int he AM -Pain control--continue [employer] -Continue to monitor WBC/fevers -ID following; continue antibiotics -Continue TPN via PICC -PT/OT Attending Statement The exam, history, and the medical decision-making described in the above note were completed with the assistance of the mid-level provider. I reviewed and agree with the findings presented. I attest that I had a [id number] encounter with the patient on the same day, and personally performed and documented my assessment and findings in the medical record. abdominal exam stable postop upper GI and surgery show no leak, possible area of retained hematoma or necrosis EDER out NG out Sabine Retana Oct 04, 2016 12:00 Gold Nicole MD Oct 05, 2016 13:45
--- NOTE | 2016-10-04 12:05 | HHI.IDPN ---
Note Infectious Disease Note Patient without complaints. No nausea. On TPN. NG tube removed. Afebrile. CT of abdomen shows small residual abscess. Presented to [facility] on September 16 with abdominal pain and also nausea and vomiting. Post irrigation and debridement of pancreatic abscess which was a large abscess and also pancreatic necrosectomy. 2nd surgery for same. PAST MEDICAL HISTORY: 1. Hepatitis C. 2. COPD. 3. Diabetes mellitus. 4. Alcohol abuse. 5. Congestive heart failure. 6. COPD. 7. History of appendectomy. 8. Patient underwent pancreatic necrosectomy on August 26, 2016. ALLERGIES: PENICILLIN. MEDICATIONS: 1. Ertapenem. 2. Micafungin. 3. Zyvox. SOCIAL HISTORY: The patient smoked two packs of cigarettes a day up until June of 2016. Alcohol use up until April of 2016. No illicit drugs. OBJECTIVE: Vital Signs Date Time Temp Pulse Resp B/P Pulse Ox O2 Delivery O2 Flow Rate FiO2 10/04/16 08:00 98.2 84 17 121/78 97 10/04/16 05:09 20 10/04/16 00:00 97.7 77 16 123/72 97 10/03/16 20:00 98.2 96 18 124/73 97 10/03/16 13:04 16 10/03/16 10/03/16 10/04/16 15:00 23:00 07:00 Intake Total 1214 ml 1833 ml Output Total 750 ml 400 ml 855 ml Balance 464 ml -400 ml 978 ml Intake Oral 0 ml IV Total 481 ml 1833 ml TPN/PPN 655 ml Lipid 78 ml Output Urine Total 700 ml 400 ml 500 ml Gastric Drainage Total 50 ml 350 ml Drainage Total 5 ml # Bowel Movements 0 0 0 Laboratory Tests Test 10/04/16 05:30 White Blood Count 21.4 TH/MM3 Red Blood Count 3.50 MIL/MM3 Hemoglobin 8.2 GM/DL Hematocrit 25.7 % Mean Corpuscular Volume 73.3 FL Mean Corpuscular Hemoglobin 23.4 PG Mean Corpuscular Hemoglobin 31.9 % Concent Red Cell Distribution Width 16.5 % Platelet Count 352 TH/MM3 Mean Platelet Volume 10.3 FL Neutrophils (%) (Auto) 76.8 % Lymphocytes (%) (Auto) 9.8 % Monocytes (%) (Auto) 10.6 % Eosinophils (%) (Auto) 2.5 % Basophils (%) (Auto) 0.3 % Neutrophils # (Auto) 16.5 TH/MM3 Lymphocytes # (Auto) 2.1 TH/MM3 Monocytes # (Auto) 2.3 TH/MM3 Eosinophils # (Auto) 0.5 TH/MM3 Basophils # (Auto) 0.1 TH/MM3 CBC Comment AUTO DIFF Differential Comment AUTO DIFF CONFIRMED Laboratory Tests Test 10/04/16 05:30 Sodium Level 134 MEQ/L Potassium Level 4.3 MEQ/L Chloride Level 102 MEQ/L Carbon Dioxide Level 24.5 MEQ/L Anion Gap 8 MEQ/L Blood Urea Nitrogen 34 MG/DL Creatinine 0.96 MG/DL Estimat Glomerular Filtration 95 ML/MIN Rate Random Glucose 111 MG/DL Calcium Level 10.8 MG/DL Microbiology Date/Time Procedure Status Source Growth 10/02/16 05:48 Aerobic Blood Culture - Preliminary Resulted Blood Peripheral NO GROWTH IN 2 DAYS 10/02/16 05:48 Anaerobic Blood Culture - Preliminary Resulted Blood Peripheral NO GROWTH IN 2 DAYS Microbiology Date/Time Procedure Status Source Growth 09/30/16 18:00 Gram Stain - Final Complete Wound Abdomen 09/30/16 18:00 Wound Culture - Final Complete Wound Abdomen NO GROWTH IN 72 HRS.--AEROBICALLY OR ... 10/01/16 10:20 Aerobic Blood Culture - Preliminary Resulted Blood Line NO GROWTH IN 2 DAYS 10/01/16 10:20 Anaerobic Blood Culture - Preliminary Resulted Blood Line NO GROWTH IN 2 DAYS 10/02/16 05:48 Aerobic Blood Culture - Preliminary Resulted Blood Peripheral NO GROWTH IN 1 DAY 10/02/16 05:48 Anaerobic Blood Culture - Preliminary Resulted Blood Peripheral NO GROWTH IN 1 DAY IMAGING: Last [address] 10/03/16 1526 Signed Impressions: Service Date/Time: Monday, October 03, 2016 15:30 - CONCLUSION: 1. Small residual abscess anterior to the second portion of the duodenum in somewhat of a precarious place to drain percutaneously. There is no obvious extravasation of contrast into this. 2. Nasogastric tube was repositioned into the stomach. Kermit Rollins MD FACR Upper GI Series 10/03/16 0000 Signed Impressions: Service Date/Time: Monday, October 03, 2016 15:01 - CONCLUSION: I see no obvious leak however the examination is limited. Bulk of the Gastrografin tries to reflux back into the esophagus. Kermit Rollins MD FACR Chest X-Ray 10/01/16 0000 Signed Impressions: Service Date/Time: Saturday, October 01, 2016 17:03 - CONCLUSION: 1. Left- sided PICC line has its tip in the superior vena cava in good position. 2. Perihilar atelectasis is stable. Adiel Noland MD Abdomen/Pelvis CT 09/30/16 0000 Signed Impressions: Service Date/Time: Friday, September 30, 2016 18:41 - CONCLUSION: 1. Multiple fluid collections seen associated with the pancreas and the root of the mesentery. The fluid collection associated with the pancreatic tail has increased in size from the prior study while the remaining collections are essentially stable. Hubert Rodrigues Jr., MD Upper GI Series 09/26/16 0600 Signed Impressions: Service Date/Time: Monday, September 26, 2016 08:53 - CONCLUSION: Suspected gastric perforation at the inferior distal aspect of the stomach with a collection seen inferior to the distal stomach and anterior to the duodenum. Mason Monge MD Abdomen/Pelvis CT 09/24/16 0000 Signed Impressions: Service Date/Time: Saturday, September 24, 2016 06:57 - CONCLUSION: 1. The peripancreatic fluid collections adjacent to the tail the pancreas and pancreatic head have decreased in size, as above. Similar to prior examination , the collection adjacent to the pancreatic head contains air and thick fluid like material. 2. There is left lower lobe collapse/atelectasis that is new since the prior CT. Mason Ceja MD PHYSICAL EXAMINATION: GENERAL: No acute distress. Awake alert and oriented. HEENT: The sclerae are pale. Oropharynx with no visible lesions. NECK: Supple without adenopathy. LUNGS: Decreased breath sounds. HEART: Irregular rate and rhythm. No murmurs, rubs or gallops. ABDOMEN: Bowel sounds diminished. flat, soft, Non tender. EXTREMITIES: No clubbing or cyanosis or edema. SKIN: No rash. NEUROLOGIC: Alert and oriented. No gross focal findings. PSYCHIATRIC: Calm and cooperative. IMPRESSION: 1. Pancreatic abscess. Status post drainage and pancreatic necrosectomy. (Wound culture has E. coli R to Levaquin. Also Lou. ) Recurrent abdominal fluid collections. Fluid collection now residual. 2. Leukocytosis. Probable related to intraabdominal infection. WBC still elevated. 3. Penicillin allergy. RECOMMENDATIONS: 1. Continue Zyvox change to PO. 2. Continue Micafungin. 3. Continue Ertapenem - E coli resistant and allergy to Penicillin. 4. Monitor temp and white blood cell count. Maxime Hernandez MD Oct 04, 2016 12:05
[2016-10-04] MEDS: MICAFUNGIN INJ 100 MG in SODIUM CHLORIDE 0.9% INJ 100 ML IV SCH (13:53)
[2016-10-04] MEDS: MORPHINE SULFATE 30 MG/30 ML PCA IV SCH (14:49)
[2016-10-04 16:00] VITALS: BP 126/77; PULSE 74; RESP 17; TEMP 97.6; O2SAT 97
[2016-10-04] MEDS: SODIUM CHLORIDE 23.4% INJ 38.5 MEQ in WATER STERILE FOR INJ 1,000 ML IV SCH (17:00)
[2016-10-04] MEDS: FAT EMULSION 20% INJ 250 ML (@10 mls/hr) IV-CENTRAL SCH (20:03)
[2016-10-04] MEDS: ENOXAPARIN SODIUM 40 MG/0.4 ML SYRINGE SQ SCH (20:09)
[2016-10-04 20:18] VITALS: BP 138/69; PULSE 88; RESP 16; TEMP 98.1; O2SAT 99
[2016-10-04] MEDS: MAGNESIUM CHLORIDE IV-CENTRAL SCH ×6 (20:34)
[2016-10-04] MEDS: FOLIC ACID IV-CENTRAL SCH ×6 (20:34)
[2016-10-04] MEDS: MULTIVITAMIN IV-CENTRAL SCH ×6 (20:34)
[2016-10-04] MEDS: [UNRECOGNIZED DRUG - OTHER] IV-CENTRAL SCH ×6 (20:34)
[2016-10-05 00:13] VITALS: BP 129/69; PULSE 91; RESP 17; TEMP 97.7; O2SAT 99
[2016-10-05] MEDS: LINEZOLID 600 MG PREMIX 300 ML IV SCH ×2 (01:36→11:31)
[2016-10-05] MEDS: MEROPENEM INJ 1,000 MG in SODIUM CHLORIDE 0.9% INJ 100 ML IV SCH ×3 (02:00→18:23)
[2016-10-05 04:37] VITALS: BP 143/76; PULSE 89; RESP 17; TEMP 97.4; O2SAT 99
[2016-10-05] MEDS: PCA - TOTAL MG MORPHINE DELIVERED PER SHIFT SCH ×3 (05:47→22:00)
[2016-10-05] MEDS: INSULIN ASPART SUPPLEMENTAL SCALE SQ SCH ×4 (05:47→18:00)
[2016-10-05 08:00] VITALS: BP 134/79; PULSE 86; RESP 15; TEMP 98.5; O2SAT 97
[2016-10-05] MEDS: SODIUM CHLORIDE 23.4% INJ 38.5 MEQ in WATER STERILE FOR INJ 1,000 ML IV SCH (08:27)
[2016-10-05] MEDS: INSULIN DETEMIR 100 UNITS/ML VIAL SQ SCH ×2 (08:31→20:58)
[2016-10-05] MEDS: SODIUM CHLORIDE 0.9% FLUSH 10 ML FLUSH IV FLUSH SCH ×3 (08:31→20:50)
[2016-10-05] MEDS: BUDESONIDE-FORMOTEROL 160/4.5 MCG INHALER INH SCH ×2 (08:33→21:00)
--- NOTE | 2016-10-05 11:07 | HHI.PR ---
Subjective Remarks in no acute distress. afebrile. denies pain or nausea/ vomiting. complaining of some generalized itching. Objective Vitals Vital Signs Date Time Temp Pulse Resp B/P Pulse Ox O2 Delivery O2 Flow Rate FiO2 10/05/16 08:30 97 Room Air 10/05/16 08:00 98.5 86 15 134/79 97 10/05/16 05:47 16 10/05/16 04:37 97.4 89 17 143/76 99 10/05/16 00:13 97.7 91 17 129/69 99 10/04/16 22:00 16 10/04/16 20:18 98.1 88 16 138/69 99 10/04/16 16:00 97.6 74 17 126/77 97 10/04/16 14:49 18 10/04/16 13:53 18 10/04/16 12:00 98.3 81 17 114/72 98 I/O 10/04/16 10/04/16 10/04/16 10/05/16 10/05/16 10/05/16 07:00 15:00 23:00 07:00 15:00 23:00 Intake Total 1833 ml 1305 ml 885 ml 1183 ml Output Total 855 ml 1150 ml 1000 ml 800 ml Balance 978 ml 155 ml -115 ml 383 ml Intake Oral 0 ml IV Total 1833 ml 509 ml 279 ml 423 ml TPN/PPN 718 ml 540 ml 673 ml Lipid 78 ml 66 ml 87 ml Output Urine Total 500 ml 1150 ml 1000 ml 800 ml Gastric Drainage Total 350 ml Drainage Total 5 ml # Bowel Movements 0 0 1 Result Diagram: 10/04/16 0530 10/04/16 0530 Imaging Last Impressions Abdomen CT 10/03/16 1526 Signed Impressions: Service Date/Time: Monday, October 03, 2016 15:30 - CONCLUSION: 1. Small residual abscess anterior to the second portion of the duodenum in somewhat of a precarious place to drain percutaneously. There is no obvious extravasation of contrast into this. 2. Nasogastric tube was repositioned into the stomach. Kermit Rollins MD FACR Upper GI Series 10/03/16 0000 Signed Impressions: Service Date/Time: Monday, October 03, 2016 15:01 - CONCLUSION: I see no obvious leak however the examination is limited. Bulk of the Gastrografin tries to reflux back into the esophagus. Kermit Rollins MD FACR Chest X-Ray 10/01/16 0000 Signed Impressions: Service Date/Time: Saturday, October 01, 2016 17:03 - CONCLUSION: 1. Left- sided PICC line has its tip in the superior vena cava in good position. 2. Perihilar atelectasis is stable. Adiel Noland MD Abdomen/Pelvis CT 09/30/16 0000 Signed Impressions: Service Date/Time: Friday, September 30, 2016 18:41 - CONCLUSION: 1. Multiple fluid collections seen associated with the pancreas and the root of the mesentery. The fluid collection associated with the pancreatic tail has increased in size from the prior study while the remaining collections are essentially stable. Hubert Rdorigues Jr., MD Objective Remarks GENERAL: looks fairly comfortable. CARDIOVASCULAR: Regular rate and irregular rhythm without murmurs, gallops, or rubs. RESPIRATORY: Clear to auscultation. Breath sounds equal bilaterally. No wheezes , rales, or rhonchi. GASTROINTESTINAL: Abdomen soft, non-tender, nondistended. drain in place. MUSCULOSKELETAL: Extremities without clubbing, cyanosis, or edema. NEURO: Alert & Oriented x4 to person, place, time, situation. Moves all ext x4 Procedures Right IJ central line sp Exploratory laparotomy, irrigation and debridement of peripancreatic abscess and necrosectomy PICC line placement Medications and IVs Current Medications Ondansetron HCl (Zofran Inj) 4 mg ONCE ONCE IVP Last administered on 09/16/16 19:48; Start 09/16/16 at 19:00; Stop 09/16/16 at 19:01; Status DC Sodium Chloride (NS Flush) 2 ml UNSCH PRN IV FLUSH FLUSH AFTER USING IV ACCESS Last administered on 09/16/16 19:48; Start 09/16/16 at 19:00; Stop 09/16/16 at 21: 05; Status DC Hydromorphone HCl 1 mg 1 mg ONCE ONCE IVS Last administered on 09/16/16 19:48 ; Start 09/16/16 at 19:00; Stop 09/16/16 at 19:01; Status DC Sodium Chloride 500 ml @ 500 mls/hr BOLUS ONCE IV Last administered on 19:47; Start 09/16/16 at 19:00; Stop 09/16/16 at 19:59; Status DC Aztreonam 2000 mg/ Sodium Chloride 100 ml @ 200 mls/hr ONCE STAT IV Last administered on 09/16/16 22:52; Start 09/16/16 at 20:25; Stop 09/16/16 at 20:54; Status DC Metronidazole 100 ml @ 100 mls/hr ONCE STAT IV Last administered on 09/16/16 21:57; Start 09/16/16 at 20:25; Stop 09/16/16 at 21:24; Status DC Ciprofloxacin/ Dextrose 200 ml @ 200 mls/hr Q12H IV Last administered on 10:59; Start 09/17/16 at 09:00; Stop 09/20/16 at 20:42; Status DC Metronidazole 100 ml @ 100 mls/hr Q8H IV Last administered on 09/20/16 11:39 ; Start 09/17/16 at 04:00; Stop 09/20/16 at 20:42; Status DC Sodium Chloride (NS 1000 ml Inj) 1,000 ml @ 125 mls/hr Q8H IV Last administered on 09/19/16 09:59; Start 09/16/16 at 20:54; Stop 09/19/16 at 20:15 ; Status DC Sodium Chloride (NS Flush) 2 ml UNSCH PRN IV FLUSH FLUSH AFTER USING IV ACCESS ; Start 09/16/16 at 21:00 Sodium Chloride (NS Flush) 2 ml BID IV FLUSH Last administered on 10/02/16 20: 29; Start 09/16/16 at 21:00 Ondansetron HCl (Zofran Inj) 4 mg Q6H PRN IVP NAUSEA OR VOMITING Last administered on 09/30/16 12:54; Start 09/16/16 at 21:00 Acetaminophen (Tylenol) 650 mg Q6H PRN PO FEVER; Start 09/16/16 at 21:00; Status Hold Morphine Sulfate (Morphine Inj) 2 mg Q3H PRN IV Pain 6-10 Last administered on 09/19/16 15:26; Start 09/16/16 at 21:00; Stop 09/19/16 at 19:31; Status DC Oxycodone HCl (Roxicodone) 5 mg Q4H PRN PO PAIN SCALE 3 TO 5 Last administered on 09/16/16 22:52; Start 09/16/16 at 21:00; Status Hold Senna/Docusate Sodium (Fátima-Colace) 1 tab BID PO Last administered on 20:08; Start 09/16/16 at 21:00; Status Hold Magnesium Hydroxide (Milk Of Magnesia Liq) 30 ml Q12H PRN PO MILD - MODERATE CONSTIPATION; Start 09/16/16 at 21:00; Status Hold Sennosides (Senokot) 17.2 mg Q12H PRN PO MODERATE - SEVERE CONSTIPATION; Start 09/16/16 at 21:00; Status Hold Bisacodyl (Dulcolax Supp) 10 mg DAILY PRN RECTAL SEVERE CONSITIPATION; Start at 21:00 Lactulose (Lactulose Liq) 30 ml DAILY PRN PO SEVERE CONSITIPATION; Start at 21:00; Status Hold Hydromorphone HCl (Dilaudid Pf Inj) 1 mg ONCE ONCE IV PUSH ; Start 09/16/16 at 22:15; Stop 09/16/16 at 22:16; Status DC Albuterol Sulfate (Albuterol Neb) 2.5 mg QID NEB PRN NEB SHORTNESS OF BREATH Last administered on 09/27/16 03:09; Start 09/17/16 at 02:15 Allopurinol (Zyloprim) 300 mg DAILY PO Last administered on 09/19/16 09:58; Start 09/17/16 at 09:00; Status Hold Amlodipine Besylate (Norvasc) 5 mg BID PO Last administered on 09/19/16 09:58 ; Start 09/17/16 at 09:00; Status Hold Budesonide/ Formoterol Fumarate (Symbicort 160-4.5 Inh) 2 puff Q12HR INH Last administered on 10/05/16 08:33; Start 09/17/16 at 09:00 Clonidine (Catapres) 0.2 mg Q12HR PO Last administered on 09/19/16 09:58; Start 09/17/16 at 09:00; Status Hold Gabapentin (Neurontin) 600 mg TID PO Last administered on 09/19/16 09:58; Start 09/17/16 at 09:00; Status Hold Roflumilast (Daliresp) 500 mcg DAILY PO Last administered on 09/19/16 09:58; Start 09/17/16 at 09:00; Status Hold Thiamine HCl (Vitamin B1) 100 mg DAILY PO Last administered on 09/18/16 08:19 ; Start 09/17/16 at 09:00; Status Hold Zolpidem Tartrate (Ambien) 5 mg HS PRN PO insomnia Last administered on 22:57; Start 09/17/16 at 02:15; Status Hold Folic Acid (Folate) 1 mg DAILY PO Last administered on 09/18/16 08:18; Start 09/17/16 at 09:00; Status Hold Amylase/Lipase/ Protease (Creon 24-76-120) 2 cap TID PO Last administered on 17:07; Start 09/17/16 at 13:00; Status Hold Iohexol 98 ml 98 ml STK-MED ONCE IV Last administered on 09/17/16 15:40; Start 09/17/16 at 15:40; Stop 09/17/16 at 15:41; Status DC Lactated Ringer's 1,000 ml @ 30 mls/hr Q24H PRN IV SEE LABEL COMMENTS; Start at 22:45; Stop 09/19/16 at 19:23; Status DC Sodium Chloride (NS 500 ml Inj) 500 ml @ 30 mls/hr [id number] PRN IV SEE LABEL COMMENTS; Start 09/18/16 at 22:45; Stop 09/19/16 at 19:23; Status DC Metoprolol Tartrate (Lopressor) 25 mg SERVICE LINE LAYER PRN PO SEE LABEL COMMENTS; Start 09/18/16 at 22:45; Stop 09/21/16 at 22:44; Status DC Povidone Iodine (Betadine 5% Antisepsis Kit) 1 applic SERVICE LINE LAYER PRN EACH NARE SEE LABEL COMMENTS; Start 09/18/16 at 22:45; Stop 09/21/16 at 22:44; Status DC Chlorhexidine Gluconate (Chlorhexidine 2% Cloth) 3 pack SERVICE LINE LAYER PRN TOPICAL SEE LABEL COMMENTS; Start 09/18/16 at 22:45; Stop 09/21/16 at 22:44; Status DC Insulin Human Regular See Protocol Table ... SERVICE LINE LAYER PRN SQ SEE PROTOCOL TABLE ; Start 09/18/16 at 22:45; Stop 09/21/16 at 22:44; Status DC Potassium Chloride (KCl 10 Meq Premix Inj) 100 ml @ 100 mls/hr BOLUS ONCE IV Last administered on 09/19/16 11:22; Start 09/19/16 at 11:00; Stop 09/19/16 at 11:59; Status DC Midazolam HCl (Versed Inj) 2 mg STK-MED ONCE .ROUTE Last administered on 17:03; Start 09/19/16 at 17:02; Stop 09/19/16 at 17:03; Status DC Dextrose (D50w (Vial) Inj) 50 ml UNSCH PRN IV HYPOGLYCEMIA-SEE COMMENTS; Start 09/19/16 at 19:30; Status UNV Glucagon (Glucagon Inj) 1 mg UNSCH PRN OTHER HYPOGLYCEMIA-SEE COMMENTS; Start 09/19/16 at 19:30; Status UNV Insulin Aspart (NovoLOG SUPPLEMENTAL SCALE) 1 Q6HR SQ Last administered on 09/26 12:34; Start 09/20/16 at 00:00 Dextrose (D50w (Syr) Inj) 50 ml UNSCH PRN IV HYPOGLYCEMIA-SEE COMMENTS; Start 09/19/16 at 19:30 Glucagon (Glucagon Inj) 1 mg UNSCH PRN OTHER HYPOGLYCEMIA-SEE COMMENTS; Start 09/19/16 at 19:30 Labetalol HCl (Trandate Inj) 100 mg STK-MED ONCE .ROUTE Last administered on 19:30; Start 09/19/16 at 19:27; Stop 09/19/16 at 19:28; Status DC Morphine Sulfate (Morphine Inj) 3 mg Q1H PRN IV Pain 6-10 Last administered on 09/20/16 17:15; Start 09/19/16 at 20:00; Status Hold Fentanyl Citrate (fentaNYL INJ) 500 mcg STK-MED ONCE .ROUTE ; Start 09/19/16 at 19:33; Stop 09/19/16 at 19:34; Status DC Miscellaneous Information ALL NURSING DEPARTME... UNSCH PRN .XX SEE LABEL COMMENTS; Start 09/19/16 at 19:22; Stop 09/20/16 at 19:21; Status DC Multivitamins 10 ml/Folic Acid 1 mg/Insulin Human Regular 20 units/ Famotidine 40 mg/ Amino Acids/ Electrolytes/ Dextrose 2,014.4 ml @ 83 mls/hr Q24H IV- CENTRAL Last administered on 09/22/16 20:39; Start 09/20/16 at 20:00; Stop at 19:59; Status DC Fat Emulsion Intravenous 250 ml @ 10 mls/hr Q24H IV-CENTRAL Last administered on 10/04/16 20:03; Start 09/20/16 at 20:00 Potassium Chloride/Sodium Chloride (1/2 NS + KCl 20 Meq Inj) 1,000 ml @ As Directed STK-MED ONCE .ROUTE Last administered on 09/19/16 20:12; Start at 20:07; Stop 09/19/16 at 20:08; Status DC Morphine Sulfate (*morphine INJ PERIprocedure ONLY) 8 mg STK-MED ONCE .ROUTE Last administered on 09/19/16 20:09; Start 09/19/16 at 20:08; Stop 09/19/16 at 20:09; Status DC Pantoprazole Sodium 40 mg 40 mg Q24H IV PUSH Last administered on 09/19/16 20: 35; Start 09/19/16 at 21:00; Stop 09/20/16 at 09:52; Status DC Potassium Chloride/Sodium Chloride 1,000 ml @ 125 mls/hr Q8H IV Last administered on 09/20/16 03:31; Start 09/19/16 at 20:30; Stop 09/20/16 at 09:52 ; Status DC Potassium Chloride 100 ml @ As Directed STK-MED ONCE .ROUTE ; Start 09/19/16 at 21:07; Stop 09/19/16 at 21:08; Status DC Potassium Chloride 100 ml @ 50 mls/hr Q2H IV Last administered on 09/19/16 23 :35; Start 09/19/16 at 23:00; Stop 09/20/16 at 02:59; Status DC Amino Acids/ Electrolytes/ Dextrose (Clinimix E 4.25/ 25) 1,000 ml @ 83 mls/hr Q12H3M IV-CENTRAL Last administered on 09/20/16 09:33; Start 09/20/16 at 10:00 ; Stop 09/20/16 at 22:02; Status DC Acetaminophen (Ofirmev Inj) 650 mg Q6HR PRN IV FEVER; Start 09/20/16 at 09:30 Labetalol HCl (Trandate Inj) 10 mg Q4H PRN IV PUSH SYS BP GREATER THAN 160 MMHG Last administered on 09/22/16 21:09; Start 09/20/16 at 09:30 Pantoprazole Sodium 40 mg 40 mg DAILY IV PUSH Last administered on 09/20/16 10 :59; Start 09/20/16 at 10:00; Stop 09/20/16 at 14:50; Status DC Sodium Chloride 1,000 ml @ 40 mls/hr Q24H IV Last administered on 09/24/16 08 :28; Start 09/20/16 at 10:00; Stop 09/24/16 at 15:18; Status DC Magnesium Sulfate/ Dextrose (Magnesium Sulfate 1 Gm Premix) 100 ml @ 100 mls/ hr Q1H IV Last administered on 09/20/16 11:39; Start 09/20/16 at 10:00; Stop 09/20/16 at 11:59; Status DC Pantoprazole Sodium (Protonix Inj) 40 mg Q24H IV PUSH Last administered on 09/23 11:48; Start 09/20/16 at 11:30; Stop 09/24/16 at 08:32; Status DC Naloxone HCl (Narcan Inj) 0.4 mg UNSCH PRN IV RESPIRATORY RATE LESS THAN 10; Start 09/20/16 at 14:45 Morphine Sulfate (Morphine 1 Mg/ ml BELT MAKER HELPER) 30 mg UNSCH IV Last administered on 14:49; Start 09/20/16 at 14:45 BELT MAKER HELPER Dosage Infused (Pha) 1 1 Q8HR .XX Last administered on 10/05/16 05:47; Start 09/20/16 at 22:00 Magnesium Sulfate/ Dextrose 100 ml @ 100 mls/hr Q1H IV Last administered on 23:49; Start 09/20/16 at 20:00; Stop 09/20/16 at 21:59; Status DC Fluconazole/ Sodium Chloride 100 ml @ 100 mls/hr Q24H IV Last administered on 09/29/16 22:10; Start 09/20/16 at 22:00; Stop 09/30/16 at 11:44; Status DC Piperacillin Sod/ Tazobactam Sod 100 ml @ 200 mls/hr Q6H IV ; Start 09/20/16 at 20:45; Stop 09/20/16 at 20:47; Status DC Ciprofloxacin/ Dextrose 200 ml @ 200 mls/hr Q12H IV Last administered on 11:48; Start 09/20/16 at 23:00; Stop 09/23/16 at 12:10; Status DC Metronidazole (Flagyl 500 Mg Inj) 100 ml @ 100 mls/hr Q6H IV Last administered on 09/29/16 10:17; Start 09/20/16 at 21:00; Stop 09/29/16 at 15:53 ; Status DC Insulin Detemir (Levemir Inj) 5 units Q12HR SQ Last administered on 10/05/16 08:31; Start 09/21/16 at 09:00 Clonidine 1 patch 1 patch Q7D T-DERMAL Last administered on 09/21/16 01:17; Start 09/20/16 at 22:15; Stop 09/24/16 at 08:34; Status DC Potassium Phosphate 15 mmol/ Sodium Chloride 155 ml @ 38.75 mls/ hr ONCE ONCE IV Last administered on 09/21/16 08:54; Start 09/21/16 at 09:00; Stop at 12:59; Status DC Potassium Chloride (KCl 20 Meq Premix Inj) 100 ml @ 50 mls/hr Q2H IV Last administered on 09/21/16 09:50; Start 09/21/16 at 08:00; Stop 09/21/16 at 11:59 ; Status DC Enoxaparin Sodium 40 mg 40 mg Q24H SQ Last administered on 10/04/16 20:09; Start 09/21/16 at 20:00 Potassium Phosphate 15 mmol/ Sodium Chloride 155 ml @ 38.75 mls/ hr ONCE ONCE IV Last administered on 09/21/16 22:25; Start 09/21/16 at 20:00; Stop at 23:59; Status DC Potassium Chloride 100 ml @ 50 mls/hr Q2H IV Last administered on 09/22/16 16 :26; Start 09/22/16 at 12:00; Stop 09/22/16 at 15:59; Status DC Magnesium Sulfate/ Dextrose (Magnesium Sulfate 1 Gm Premix) 100 ml @ 100 mls/ hr ONCE ONCE IV Last administered on 09/22/16 14:24; Start 09/22/16 at 12:00 ; Stop 09/22/16 at 12:59; Status DC Enalaprilat 1.25 mg 1.25 mg Q6H PRN IV PUSH SYS BP GREATER THAN 160 MMHG Last administered on 09/27/16 13:20; Start 09/22/16 at 21:30 Sodium Chloride 11 meq/Sodium Acetate 59 meq/ Potassium Chloride 20 meq/ Potassium Phosphate 60 meq/ Magnesium Chloride 10 meq/ Calcium Chloride 9 meq/ Multivitamins 10 ml/Folic Acid 1 mg/Famotidine 40 mg/Insulin Human Regular 20 units/ Amino Acids/ Dextrose 2,081.9801 ml @ 83 mls/hr Q24H IV-CENTRAL Last administered on 09/24/16 21:45; Start 09/23/16 at 20:00; Stop 09/25/16 at 19:59 ; Status DC Aztreonam 2000 mg/ Sodium Chloride 100 ml @ 200 mls/hr Q8H IV ; Start 09/23/16 at 14:00; Stop 09/23/16 at 14:00; Status DC Azithromycin/ Sodium Chloride (Zithromax Inj/ NS 250 ml Inj) 250 ml @ 250 mls/ hr Q24H IV Last administered on 09/28/16 14:52; Start 09/23/16 at 13:00; Stop 09/29/16 at 09:28; Status DC Miscellaneous Medication (ASP Crit: Doc allergy to Penicillin/ Cephalosp) 1 UNSCH X1 PRN .XX PHARMACY DOCUMENTATION; Start 09/23/16 at 12:15; Stop at 12:15; Status DC Miscellaneous Medication (ASP Crit: Necrotizing pancreatitis) 1 UNSCH X1 PRN .XX PHARMACY DOCUMENTATION; Start 09/23/16 at 12:15; Stop 09/24/16 at 12:15; Status DC Miscellaneous Medication 1 1 UNSCH X1 PRN XX PHARMACY DOCUMENTATION; Start at 12:15; Stop 09/24/16 at 12:15; Status DC Ertapenem/Sodium Chloride (INVanz INJ/NS Inj) 100 ml @ 200 mls/hr Q24H IV Last administered on 09/24/16 15:33; Start 09/23/16 at 14:00; Stop 09/25/16 at 09:07; Status DC Miscellaneous Medication ([facility] Pharmacy Information) 1 UNSCH X1 PRN XX PHARMACY DOCUMENTATION; Start 09/23/16 at 12:15; Stop 09/24/16 at 12:15; Status DC Propofol (Diprivan 200 Mg/20 ml Inj) 200 mg STK-MED ONCE IV ; Start 09/19/16 at 12:00; Stop 09/23/16 at 14:53; Status DC Phenylephrine HCl 1000 mcg 1,000 mcg STK-MED ONCE IV ; Start 09/19/16 at 12:00; Stop 09/23/16 at 14:53; Status DC Lactated Ringer's 1,000 ml @ As Directed STK-MED ONCE IV ; Start 09/19/16 at 12 :00; Stop 09/23/16 at 14:53; Status DC Sodium Chloride (NS 500 ml Inj) 500 ml @ As Directed STK-MED ONCE IV ; Start at 12:00; Stop 09/23/16 at 14:53; Status DC Iohexol (Omnipaque 350 Inj) 100 ml STK-MED ONCE IV Last administered on 06:59; Start 09/24/16 at 06:59; Stop 09/24/16 at 07:00; Status DC Clonidine 1 patch 1 patch Q7D T-DERMAL Last administered on 10/01/16 09:55; Start 09/24/16 at 11:00 Pharmacy Profile Note (Vancomycin Consult Pharmacy) 0 ml @ 0 mls/hr UNSCH OTHER ; Start 09/24/16 at 09:45; Stop 09/29/16 at 15:53; Status DC Miscellaneous Information 1 1 Q7D T-DERMAL Last administered on 10/01/16 09:56 ; Start 09/24/16 at 11:00 Vancomycin HCl/ Sodium Chloride (Vancomycin Inj/ NS 250 ml Inj) 262.5 ml @ 250 mls/hr Q12H IV Last administered on 09/26/16 01:06; Start 09/24/16 at 12:00; Stop 09/26/16 at 02:02; Status DC Miscellaneous Information SPECIFIC LAB TO BE DRAWN:VANCO TROUGH DATE TO... ONCE ONCE .XX Last administered on 09/25/16 23:45; Start 09/25/16 at 23:45; Stop 09/25/16 at 23:46; Status DC Potassium Phosphate 15 mmol/ Sodium Chloride 155 ml @ 38.75 mls/ hr ONCE ONCE IV Last administered on 09/24/16 17:23; Start 09/24/16 at 16:00; Stop at 19:59; Status DC Ertapenem/Sodium Chloride (INVanz INJ/NS Inj) 50 ml @ 200 mls/hr Q24H IV Last administered on 09/30/16 17:04; Start 09/25/16 at 16:00; Stop 10/01/16 at 09:11 ; Status DC Miscellaneous Medication PLEASE CONCENTRATE ALL... UNSCH OTHER ; Start 09/25/16 at 09:15 Sodium Acetate 59 meq/Potassium Chloride 20 meq/ Potassium Phosphate 90 meq/ Magnesium Chloride 10 meq/ Calcium Chloride 9 meq/ Multivitamins 10 ml/Folic Acid 1 mg/Famotidine 40 mg/Insulin Human Regular 20 units/ Amino Acids/ Dextrose 2,086.0482 ml @ 83 mls/hr Q24H IV-CENTRAL ; Start 09/25/16 at 09:30; Status Cancel Sodium Acetate 59 meq/Potassium Chloride 20 meq/ Potassium Phosphate 90 meq/ Magnesium Chloride 10 meq/ Calcium Chloride 9 meq/ Multivitamins 10 ml/Folic Acid 1 mg/Famotidine 40 mg/Insulin Human Regular 20 units/ Amino Acids/ Dextrose 2,086.0482 ml @ 83 mls/hr Q24H IV-CENTRAL Last administered on 20:35; Start 09/25/16 at 20:00; Stop 09/27/16 at 09:05; Status DC Vancomycin HCl/ Sodium Chloride (Vancomycin Inj/ NS 500 ml Inj) 515 ml @ 250 mls/hr Q12H IV Last administered on 09/29/16 12:06; Start 09/26/16 at 12:00; Stop 09/29/16 at 15:53; Status DC Miscellaneous Information SPECIFIC LAB TO BE AZUCENA... ONCE ONCE .XX ; Start 09/27 at 23:45; Stop 09/27/16 at 23:46; Status DC Diatrizoate Meglum/ Diatrizoate Sod 120 ml 120 ml STK-MED ONCE NG ; Start at 10:21; Stop 09/26/16 at 10:22; Status DC Potassium Acetate/ Potassium Phosphate/ Magnesium Chloride/Calcium Chloride/ Multivitamins/ Folic Acid/ Famotidine/ Insulin Human Regular/Amino Acids/ Dextrose (Potassium Acetate Inj/ Potassium Phosphate Inj/ Magnesium Chloride Inj / Calcium Chlor... 2,080.5937 ml @ 83 mls/hr Q24H IV-CENTRAL Last administered on 09/30/16 20:34; Start 09/27/16 at 20:00; Stop 10/01/16 at 09:06; Status DC Benzocaine/ Menthol 1 lozenge 1 lozenge UNSCH PRN BUCCAL sore throat; Start at 16:00 Sodium Chloride/ Sterile Water (Sodium Chloride 23.4% Inj/Sterile Water For Inj ) 1,009.625 ml @ 15 mls/hr Q24H IV Last administered on 10/05/16 08:27; Start 09/28/16 at 17:00 Miscellaneous Information SPECIFIC LAB TO BE ... ONCE ONCE .XX ; Start 10/01 at 23:45; Stop 10/01/16 at 23:46; Status Cancel Phenol (Chloraseptic Brent) 2 spray Q2H PRN OROPHARYNG sore throat; Start 09/30 at 10:00 Diatrizoate Meglum/ Diatrizoate Sod 18 ml 18 ml ONCE ONCE PO Last administered on 09/30/16 12:55; Start 09/30/16 at 11:30; Stop 09/30/16 at 11:31 ; Status DC Micafungin Sodium 100 mg/Sodium Chloride 100 ml @ 100 mls/hr Q24H IV Last administered on 10/04/16 13:53; Start 09/30/16 at 13:00 Linezolid (Zyvox 600 Mg Premix) 300 ml @ 300 mls/hr Q12H IV Last administered on 10/05/16 01:36; Start 09/30/16 at 12:00 Iohexol 97 ml 97 ml STK-MED ONCE IV ; Start 09/30/16 at 19:59; Stop 09/30/16 at 20:00; Status DC Magnesium Chloride/Calcium Chloride/ Multivitamins/ Folic Acid/ Famotidine/ Insulin Human Regular/Amino Acids/Dextrose (Magnesium Chloride Inj/ Calcium Chloride Inj/Mvi-12 Inj/ Folvite Inj/ Pepcid Inj/ NovoLIN R (IV INFUSION)/ Clinimix ) 2,026.0937 ml @ 83 mls/hr Q24H IV-CENTRAL Last administered on 10/03/16 20:00; Start 10/01/16 at 20:00; Stop 10/04/16 at 13:48; Status DC Miscellaneous Medication (ASP Crit: Necrotizing pancreatitis) 1 UNSCH X1 PRN .XX PHARMACY DOCUMENTATION; Start 10/01/16 at 09:15; Stop 10/02/16 at 09:14; Status DC Miscellaneous Medication ([facility] Pharmacy Information) 1 UNSCH X1 PRN XX PHARMACY DOCUMENTATION; Start 10/01/16 at 09:15; Stop 10/02/16 at 09:14; Status DC Miscellaneous Medication 1 1 UNSCH X1 PRN XX PHARMACY DOCUMENTATION; Start at 09:15; Stop 10/02/16 at 09:14; Status DC Meropenem/Sodium Chloride (Merrem Inj/NS Inj) 100 ml @ 200 mls/hr Q8H IV Last administered on 10/05/16 10:14; Start 10/01/16 at 10:00 Sodium Chloride (NS Flush) See Protocol DAILY IV FLUSH Last administered on 08:31; Start 10/02/16 at 09:00 Sodium Chloride (NS Flush) See Protocol UNSCH PRN IV FLUSH SEE PROTOCOL TABLE; Start 10/01/16 at 17:15 Heparin Sodium (Porcine) (Heparin Central Flush) See Protocol DAILY IV FLUSH Last administered on 10/05/16 08:31; Start 10/02/16 at 09:00 Heparin Sodium (Porcine) (Heparin Central Flush) See Protocol UNSCH PRN IV FLUSH SEE PROTOCOL TABLE; Start 10/01/16 at 17:15 Sodium Chloride UNSCH PRN IV FLUSH SEE PROTOCOL TABLE; Start 10/01/16 at 17:15 Magnesium Chloride/ Multivitamins/ Folic Acid/ Famotidine/ Insulin Human Regular /Amino Acids/Dextrose (Magnesium Chloride Inj/ Mvi-12 Inj/ Folvite Inj/ Pepcid Inj/ NovoLIN R (IV INFUSION)/ Clinimix 4.) 2,019.4761 ml @ 83 mls/hr Q24H IV-CENTRAL Last administered on 10/04/16t 20:34; Start 10/04/16 at 20:00 A/P Assessment and Plan A/P 1. Pancreatic Abscess: recent "pancreas surgery" at by Dr. Mathias approx [address] ago for pseudocyst. 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 Patient is sp exploratory laparotomy, irrigation and drainage of pancreatic abscess. Management as per general surgery. continue with pain control- Follow-up upper GI series shows suspected gastric perforation at the distal inferior stomach. however repeated upper GI series with no leak- continue with ice chips and TPN- continue Micafungin, Meropenem and Zyvox- monitor CBC. ID following. repeated blood cultures negative so far. 2. Hypercalcemia: will adjust the supplementation through TPN- will monitor 3. Leukocytosis: continue antibiotics as noted above- monitor CBC. ID following. 4. Alcohol Abuse: reports h/o alcohol abuse, however states he quit. Continue to monitor for possible withdrawal. 5. COPD: Chronic Respiratory Failure. Stable. Resumed home MDI/Neb. continue O2 to keep o2 sat more than 92%. 6. DM: Sliding scale w/ Accu-Cheks. Hold Metformin. Will continue insulin Levemir and regular in the TPN. 7. HTN: Improving continue clonidine patch to TTS 3. 8.mild hyperkalemia-resolved. 9-hyperphosphatemia.; adjust through TPN- will monitor DVT prophylaxis with subq Lovenox. continue PT. Rick Rahman MD Oct 05, 2016 11:07
[2016-10-05 12:00] VITALS: BP 148/79; PULSE 83; RESP 17; TEMP 98.7; O2SAT 97
[2016-10-05] MEDS: MICAFUNGIN INJ 100 MG in SODIUM CHLORIDE 0.9% INJ 100 ML IV SCH (12:49)
[2016-10-05] MEDS: diphenhydrAMINE HCL 50 MG/ML VIAL IV PUSH PRN (12:55)
--- NOTE | 2016-10-05 15:45 | HHI.PR ---
Subjective Subjective Notes Up to chair Reports he feels really good today Objective Vitals/I&O Vital Signs Date Time Temp Pulse Resp B/P Pulse Ox O2 Delivery O2 Flow Rate FiO2 10/05/16 12:56 18 10/05/16 12:00 98.7 83 148/79 97 10/05/16 08:30 Room Air 10/03/16 04:00 1.00 10/02/16 17:27 21 Labs Date/Time Procedure Status Source Growth 10/02/16 05:48 Aerobic Blood Culture - Preliminary Resulted Blood Peripheral NO GROWTH IN 3 DAYS 10/02/16 05:48 Anaerobic Blood Culture - Preliminary Resulted Blood Peripheral NO GROWTH IN 3 DAYS 09/30/16 18:00 Gram Stain - Final Complete Wound Abdomen 09/30/16 18:00 Wound Culture - Final Complete Wound Abdomen NO GROWTH IN 72 HRS.--AEROBICALLY OR ... 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
[2016-10-05 16:00] VITALS: BP 158/78; PULSE 75; RESP 17; TEMP 96.2; O2SAT 98
[2016-10-05] MEDS: FOLIC ACID IV-CENTRAL SCH ×6 (20:00)
[2016-10-05] MEDS: [UNRECOGNIZED DRUG - OTHER] IV-CENTRAL SCH ×6 (20:00)
[2016-10-05] MEDS: MAGNESIUM CHLORIDE IV-CENTRAL SCH ×6 (20:00)
[2016-10-05] MEDS: MULTIVITAMIN IV-CENTRAL SCH ×6 (20:00)
[2016-10-05 20:30] VITALS: BP 136/76; PULSE 88; RESP 17; TEMP 98.8; O2SAT 97
[2016-10-05] MEDS: FAT EMULSION 20% INJ 250 ML (@10 mls/hr) IV-CENTRAL SCH (20:50)
[2016-10-05] MEDS: ENOXAPARIN SODIUM 40 MG/0.4 ML SYRINGE SQ SCH (20:50)
[2016-10-05 21:11] LABS: MEAN CORPUSCULAR HGB CONC 28.7 % (32.0-36.0)
[2016-10-06 00:29] VITALS: BP 138/72; PULSE 80; RESP 16; TEMP 99.3; O2SAT 94
[2016-10-06] MEDS: LINEZOLID 600 MG PREMIX 300 ML IV SCH ×3 (02:22→23:44)
[2016-10-06] MEDS: MEROPENEM INJ 1,000 MG in SODIUM CHLORIDE 0.9% INJ 100 ML IV SCH ×3 (03:57→17:59)
[2016-10-06 04:21] VITALS: BP 131/77; PULSE 82; RESP 17; TEMP 99.1; O2SAT 94
[2016-10-06 04:37] LABS: AUTOMATED NEUTROPHIL # 13.1 TH/MM3 (1.8-7.7); BASOPHIL % 0.3 % (0.0-2.0); EOSINOPHIL # 0.7 TH/MM3 (0-0.4); EOSINOPHIL % 4.1 % (0.0-4.0); HEMATOCRIT 26.8 % (39.0-51.0); LYMPH % 11.6 % (9.0-44.0); LYMPHOCYTE # 2.1 TH/MM3 (1.0-4.8); MEAN CELL VOLUME 88.4 FL (80.0-100.0); MEAN CORPUSCULAR HEMOGLOBIN 25.4 PG (27.0-34.0); MONO % 11.2 % (0.0-8.0); NEUT % 72.8 % (16.0-70.0); PLATELET COUNT 293 TH/MM3 (150-450); RED BLOOD COUNT 3.03 MIL/MM3 (4.50-5.90); RED CELL DISTRIBUTION WIDTH 18.3 % (11.6-17.2); WHITE BLOOD COUNT 17.9 TH/MM3 (4.0-11.0)
[2016-10-06 04:48] LABS: HEMO FLAGS AUTO DIFF
[2016-10-06] MEDS: diphenhydrAMINE HCL 50 MG/ML VIAL IV PUSH PRN (05:47)
[2016-10-06] MEDS: PCA - TOTAL MG MORPHINE DELIVERED PER SHIFT SCH ×3 (05:48→21:24)
[2016-10-06 05:58] LABS: ACANTHOCYTES OCC (NORMAL); KERATOCYTES OCC (NORMAL); PLATELET ESTIMATE SMEAR NORMAL (NORMAL); PLATELET MORPHOLOGY NORMAL (NORMAL)
[2016-10-06] MEDS: INSULIN ASPART SUPPLEMENTAL SCALE SQ SCH ×5 (06:00→23:50)
[2016-10-06 06:21] LABS: SCAN/DIFF AUTO DIFF CONFIRMED
[2016-10-06 06:59] LABS: BICARBONATE 23.7 MEQ/L (21.0-32.0); POTASSIUM 3.7 MEQ/L (3.5-5.1)
[2016-10-06 08:00] VITALS: BP 126/72; PULSE 90; RESP 16; TEMP 99; O2SAT 98
--- NOTE | 2016-10-06 08:49 | HHI.PR ---
Subjective Remarks in no acute distress. denies abdominal pain. no nausea or vomiting. afebrile. Objective Vitals Vital Signs Date Time Temp Pulse Resp B/P Pulse Ox O2 Delivery O2 Flow Rate FiO2 10/06/16 08:00 99.0 90 16 126/72 98 10/06/16 05:48 16 10/06/16 04:21 99.1 82 17 131/77 94 10/06/16 00:29 99.3 80 16 138/72 94 10/05/16 22:00 16 10/05/16 20:30 98.8 88 17 136/76 97 10/05/16 16:00 96.2 75 17 158/78 98 10/05/16 12:56 18 10/05/16 12:00 98.7 83 17 148/79 97 I/O 10/05/16 10/05/16 10/05/16 10/06/16 10/06/16 10/06/16 07:00 15:00 23:00 07:00 15:00 23:00 Intake Total 1183 ml 1223 ml 1100 ml 1590 ml Output Total 800 ml 725 ml 1000 ml 1000 ml Balance 383 ml 498 ml 100 ml 590 ml Intake Oral 0 ml 280 ml IV Total 423 ml 551 ml 293 ml 500 ml TPN/PPN 673 ml 599 ml 726 ml 723 ml Lipid 87 ml 73 ml 81 ml 87 ml Output Urine Total 800 ml 725 ml 1000 ml 1000 ml # Bowel Movements 1 0 1 Result Diagram: 10/06/16 0352 10/06/16 0608 Imaging Last Impressions Abdomen CT 10/03/16 1526 Signed Impressions: Service Date/Time: Monday, October 03, 2016 15:30 - CONCLUSION: 1. Small residual abscess anterior to the second portion of the duodenum in somewhat of a precarious place to drain percutaneously. There is no obvious extravasation of contrast into this. 2. Nasogastric tube was repositioned into the stomach. Kermit Rollins MD FACR Upper GI Series 10/03/16 0000 Signed Impressions: Service Date/Time: Monday, October 03, 2016 15:01 - CONCLUSION: I see no obvious leak however the examination is limited. Bulk of the Gastrografin tries to reflux back into the esophagus. Kermit Rollins MD FACR Chest X-Ray 10/01/16 0000 Signed Impressions: Service Date/Time: Saturday, October 01, 2016 17:03 - CONCLUSION: 1. Left- sided PICC line has its tip in the superior vena cava in good position. 2. Perihilar atelectasis is stable. Adiel Noland MD Abdomen/Pelvis CT 09/30/16 0000 Signed Impressions: Service Date/Time: Friday, September 30, 2016 18:41 - CONCLUSION: 1. Multiple fluid collections seen associated with the pancreas and the root of the mesentery. The fluid collection associated with the pancreatic tail has increased in size from the prior study while the remaining collections are essentially stable. Hubert Rodrigues Jr., MD Objective Remarks GENERAL: looks fairly comfortable. CARDIOVASCULAR: Regular rate and irregular rhythm without murmurs, gallops, or rubs. RESPIRATORY: Clear to auscultation. Breath sounds equal bilaterally. No wheezes , rales, or rhonchi. GASTROINTESTINAL: Abdomen soft, non-tender, nondistended. drain in place. MUSCULOSKELETAL: Extremities without clubbing, cyanosis, or edema. NEURO: Alert & Oriented x4 to person, place, time, situation. Moves all ext x4 Procedures Right IJ central line sp Exploratory laparotomy, irrigation and debridement of peripancreatic abscess and necrosectomy PICC line placement Medications and IVs Current Medications Ondansetron HCl (Zofran Inj) 4 mg ONCE ONCE IVP Last administered on 09/16/16 19:48; Start 09/16/16 at 19:00; Stop 09/16/16 at 19:01; Status DC Sodium Chloride (NS Flush) 2 ml UNSCH PRN IV FLUSH FLUSH AFTER USING IV ACCESS Last administered on 09/16/16 19:48; Start 09/16/16 at 19:00; Stop 09/16/16 at 21: 05; Status DC Hydromorphone HCl 1 mg 1 mg ONCE ONCE IVS Last administered on 09/16/16 19:48 ; Start 09/16/16 at 19:00; Stop 09/16/16 at 19:01; Status DC Sodium Chloride 500 ml @ 500 mls/hr BOLUS ONCE IV Last administered on 19:47; Start 09/16/16 at 19:00; Stop 09/16/16 at 19:59; Status DC Aztreonam 2000 mg/ Sodium Chloride 100 ml @ 200 mls/hr ONCE STAT IV Last administered on 09/16/16 22:52; Start 09/16/16 at 20:25; Stop 09/16/16 at 20:54; Status DC Metronidazole 100 ml @ 100 mls/hr ONCE STAT IV Last administered on 09/16/16 21:57; Start 09/16/16 at 20:25; Stop 09/16/16 at 21:24; Status DC Ciprofloxacin/ Dextrose 200 ml @ 200 mls/hr Q12H IV Last administered on 10:59; Start 09/17/16 at 09:00; Stop 09/20/16 at 20:42; Status DC Metronidazole 100 ml @ 100 mls/hr Q8H IV Last administered on 09/20/16 11:39 ; Start 09/17/16 at 04:00; Stop 09/20/16 at 20:42; Status DC Sodium Chloride (NS 1000 ml Inj) 1,000 ml @ 125 mls/hr Q8H IV Last administered on 09/19/16 09:59; Start 09/16/16 at 20:54; Stop 09/19/16 at 20:15 ; Status DC Sodium Chloride (NS Flush) 2 ml UNSCH PRN IV FLUSH FLUSH AFTER USING IV ACCESS ; Start 09/16/16 at 21:00 Sodium Chloride (NS Flush) 2 ml BID IV FLUSH Last administered on 10/02/16 20: 29; Start 09/16/16 at 21:00 Ondansetron HCl (Zofran Inj) 4 mg Q6H PRN IVP NAUSEA OR VOMITING Last administered on 09/30/16 12:54; Start 09/16/16 at 21:00 Acetaminophen (Tylenol) 650 mg Q6H PRN PO FEVER; Start 09/16/16 at 21:00; Status Hold Morphine Sulfate (Morphine Inj) 2 mg Q3H PRN IV Pain 6-10 Last administered on 09/19/16 15:26; Start 09/16/16 at 21:00; Stop 09/19/16 at 19:31; Status DC Oxycodone HCl (Roxicodone) 5 mg Q4H PRN PO PAIN SCALE 3 TO 5 Last administered on 09/16/16 22:52; Start 09/16/16 at 21:00; Status Hold Senna/Docusate Sodium (Fátima-Colace) 1 tab BID PO Last administered on 20:08; Start 09/16/16 at 21:00; Status Hold Magnesium Hydroxide (Milk Of Magnesia Liq) 30 ml Q12H PRN PO MILD - MODERATE CONSTIPATION; Start 09/16/16 at 21:00; Status Hold Sennosides (Senokot) 17.2 mg Q12H PRN PO MODERATE - SEVERE CONSTIPATION; Start 09/16/16 at 21:00; Status Hold Bisacodyl (Dulcolax Supp) 10 mg DAILY PRN RECTAL SEVERE CONSITIPATION; Start at 21:00 Lactulose (Lactulose Liq) 30 ml DAILY PRN PO SEVERE CONSITIPATION; Start at 21:00; Status Hold Hydromorphone HCl (Dilaudid Pf Inj) 1 mg ONCE ONCE IV PUSH ; Start 09/16/16 at 22:15; Stop 09/16/16 at 22:16; Status DC Albuterol Sulfate (Albuterol Neb) 2.5 mg QID NEB PRN NEB SHORTNESS OF BREATH Last administered on 09/27/16 03:09; Start 09/17/16 at 02:15 Allopurinol (Zyloprim) 300 mg DAILY PO Last administered on 09/19/16 09:58; Start 09/17/16 at 09:00; Status Hold Amlodipine Besylate (Norvasc) 5 mg BID PO Last administered on 09/19/16 09:58 ; Start 09/17/16 at 09:00; Status Hold Budesonide/ Formoterol Fumarate (Symbicort 160-4.5 Inh) 2 puff Q12HR INH Last administered on 10/05/16 21:00; Start 09/17/16 at 09:00 Clonidine (Catapres) 0.2 mg Q12HR PO Last administered on 09/19/16 09:58; Start 09/17/16 at 09:00; Status Hold Gabapentin (Neurontin) 600 mg TID PO Last administered on 09/19/16 09:58; Start 09/17/16 at 09:00; Status Hold Roflumilast (Daliresp) 500 mcg DAILY PO Last administered on 09/19/16 09:58; Start 09/17/16 at 09:00; Status Hold Thiamine HCl (Vitamin B1) 100 mg DAILY PO Last administered on 09/18/16 08:19 ; Start 09/17/16 at 09:00; Status Hold Zolpidem Tartrate (Ambien) 5 mg HS PRN PO insomnia Last administered on 22:57; Start 09/17/16 at 02:15; Status Hold Folic Acid (Folate) 1 mg DAILY PO Last administered on 09/18/16 08:18; Start 09/17/16 at 09:00; Status Hold Amylase/Lipase/ Protease (Creon 24-76-120) 2 cap TID PO Last administered on 17:07; Start 09/17/16 at 13:00; Status Hold Iohexol 98 ml 98 ml STK-MED ONCE IV Last administered on 09/17/16 15:40; Start 09/17/16 at 15:40; Stop 09/17/16 at 15:41; Status DC Lactated Ringer's 1,000 ml @ 30 mls/hr Q24H PRN IV SEE LABEL COMMENTS; Start at 22:45; Stop 09/19/16 at 19:23; Status DC Sodium Chloride (NS 500 ml Inj) 500 ml @ 30 mls/hr [id number] PRN IV SEE LABEL COMMENTS; Start 09/18/16 at 22:45; Stop 09/19/16 at 19:23; Status DC Metoprolol Tartrate (Lopressor) 25 mg TIMBER SELECTOR PRN PO SEE LABEL COMMENTS; Start 09/18/16 at 22:45; Stop 09/21/16 at 22:44; Status DC Povidone Iodine (Betadine 5% Antisepsis Kit) 1 applic TIMBER SELECTOR PRN EACH NARE SEE LABEL COMMENTS; Start 09/18/16 at 22:45; Stop 09/21/16 at 22:44; Status DC Chlorhexidine Gluconate (Chlorhexidine 2% Cloth) 3 pack TIMBER SELECTOR PRN TOPICAL SEE LABEL COMMENTS; Start 09/18/16 at 22:45; Stop 09/21/16 at 22:44; Status DC Insulin Human Regular See Protocol Table ... TIMBER SELECTOR PRN SQ SEE PROTOCOL TABLE ; Start 09/18/16 at 22:45; Stop 09/21/16 at 22:44; Status DC Potassium Chloride (KCl 10 Meq Premix Inj) 100 ml @ 100 mls/hr BOLUS ONCE IV Last administered on 09/19/16 11:22; Start 09/19/16 at 11:00; Stop 09/19/16 at 11:59; Status DC Midazolam HCl (Versed Inj) 2 mg STK-MED ONCE .ROUTE Last administered on 17:03; Start 09/19/16 at 17:02; Stop 09/19/16 at 17:03; Status DC Dextrose (D50w (Vial) Inj) 50 ml UNSCH PRN IV HYPOGLYCEMIA-SEE COMMENTS; Start 09/19/16 at 19:30; Status UNV Glucagon (Glucagon Inj) 1 mg UNSCH PRN OTHER HYPOGLYCEMIA-SEE COMMENTS; Start 09/19/16 at 19:30; Status UNV Insulin Aspart (NovoLOG SUPPLEMENTAL SCALE) 1 Q6HR SQ Last administered on 09/26 12:34; Start 09/20/16 at 00:00 Dextrose (D50w (Syr) Inj) 50 ml UNSCH PRN IV HYPOGLYCEMIA-SEE COMMENTS; Start 09/19/16 at 19:30 Glucagon (Glucagon Inj) 1 mg UNSCH PRN OTHER HYPOGLYCEMIA-SEE COMMENTS; Start 09/19/16 at 19:30 Labetalol HCl (Trandate Inj) 100 mg STK-MED ONCE .ROUTE Last administered on 19:30; Start 09/19/16 at 19:27; Stop 09/19/16 at 19:28; Status DC Morphine Sulfate (Morphine Inj) 3 mg Q1H PRN IV Pain 6-10 Last administered on 09/20/16 17:15; Start 09/19/16 at 20:00; Status Hold Fentanyl Citrate (fentaNYL INJ) 500 mcg STK-MED ONCE .ROUTE ; Start 09/19/16 at 19:33; Stop 09/19/16 at 19:34; Status DC Miscellaneous Information ALL NURSING DEPARTME... UNSCH PRN .XX SEE LABEL COMMENTS; Start 09/19/16 at 19:22; Stop 09/20/16 at 19:21; Status DC Multivitamins 10 ml/Folic Acid 1 mg/Insulin Human Regular 20 units/ Famotidine 40 mg/ Amino Acids/ Electrolytes/ Dextrose 2,014.4 ml @ 83 mls/hr Q24H IV- CENTRAL Last administered on 09/22/16 20:39; Start 09/20/16 at 20:00; Stop at 19:59; Status DC Fat Emulsion Intravenous 250 ml @ 10 mls/hr Q24H IV-CENTRAL Last administered on 10/05/16 20:50; Start 09/20/16 at 20:00 Potassium Chloride/Sodium Chloride (1/2 NS + KCl 20 Meq Inj) 1,000 ml @ As Directed STK-MED ONCE .ROUTE Last administered on 09/19/16 20:12; Start at 20:07; Stop 09/19/16 at 20:08; Status DC Morphine Sulfate (*morphine INJ PERIprocedure ONLY) 8 mg STK-MED ONCE .ROUTE Last administered on 09/19/16 20:09; Start 09/19/16 at 20:08; Stop 09/19/16 at 20:09; Status DC Pantoprazole Sodium 40 mg 40 mg Q24H IV PUSH Last administered on 09/19/16 20: 35; Start 09/19/16 at 21:00; Stop 09/20/16 at 09:52; Status DC Potassium Chloride/Sodium Chloride 1,000 ml @ 125 mls/hr Q8H IV Last administered on 09/20/16 03:31; Start 09/19/16 at 20:30; Stop 09/20/16 at 09:52 ; Status DC Potassium Chloride 100 ml @ As Directed STK-MED ONCE .ROUTE ; Start 09/19/16 at 21:07; Stop 09/19/16 at 21:08; Status DC Potassium Chloride 100 ml @ 50 mls/hr Q2H IV Last administered on 09/19/16 23 :35; Start 09/19/16 at 23:00; Stop 09/20/16 at 02:59; Status DC Amino Acids/ Electrolytes/ Dextrose (Clinimix E 4.25/ 25) 1,000 ml @ 83 mls/hr Q12H3M IV-CENTRAL Last administered on 09/20/16 09:33; Start 09/20/16 at 10:00 ; Stop 09/20/16 at 22:02; Status DC Acetaminophen (Ofirmev Inj) 650 mg Q6HR PRN IV FEVER; Start 09/20/16 at 09:30 Labetalol HCl (Trandate Inj) 10 mg Q4H PRN IV PUSH SYS BP GREATER THAN 160 MMHG Last administered on 09/22/16 21:09; Start 09/20/16 at 09:30 Pantoprazole Sodium 40 mg 40 mg DAILY IV PUSH Last administered on 09/20/16 10 :59; Start 09/20/16 at 10:00; Stop 09/20/16 at 14:50; Status DC Sodium Chloride 1,000 ml @ 40 mls/hr Q24H IV Last administered on 09/24/16 08 :28; Start 09/20/16 at 10:00; Stop 09/24/16 at 15:18; Status DC Magnesium Sulfate/ Dextrose (Magnesium Sulfate 1 Gm Premix) 100 ml @ 100 mls/ hr Q1H IV Last administered on 09/20/16 11:39; Start 09/20/16 at 10:00; Stop 09/20/16 at 11:59; Status DC Pantoprazole Sodium (Protonix Inj) 40 mg Q24H IV PUSH Last administered on 09/23 11:48; Start 09/20/16 at 11:30; Stop 09/24/16 at 08:32; Status DC Naloxone HCl (Narcan Inj) 0.4 mg UNSCH PRN IV RESPIRATORY RATE LESS THAN 10; Start 09/20/16 at 14:45 Morphine Sulfate (Morphine 1 Mg/ ml [employer]PA[employer] TECHNICIAN) 30 mg UNSCH IV Last administered on 14:49; Start 09/20/16 at 14:45 [employer] REPA[employer] TECHNICIAN Dosage Infused (Pha) 1 1 Q8HR .XX Last administered on 10/06/16 05:48; Start 09/20/16 at 22:00 Magnesium Sulfate/ Dextrose 100 ml @ 100 mls/hr Q1H IV Last administered on 23:49; Start 09/20/16 at 20:00; Stop 09/20/16 at 21:59; Status DC Fluconazole/ Sodium Chloride 100 ml @ 100 mls/hr Q24H IV Last administered on 09/29/16 22:10; Start 09/20/16 at 22:00; Stop 09/30/16 at 11:44; Status DC Piperacillin Sod/ Tazobactam Sod 100 ml @ 200 mls/hr Q6H IV ; Start 09/20/16 at 20:45; Stop 09/20/16 at 20:47; Status DC Ciprofloxacin/ Dextrose 200 ml @ 200 mls/hr Q12H IV Last administered on 11:48; Start 09/20/16 at 23:00; Stop 09/23/16 at 12:10; Status DC Metronidazole (Flagyl 500 Mg Inj) 100 ml @ 100 mls/hr Q6H IV Last administered on 09/29/16 10:17; Start 09/20/16 at 21:00; Stop 09/29/16 at 15:53 ; Status DC Insulin Detemir (Levemir Inj) 5 units Q12HR SQ Last administered on 10/05/16 20:58; Start 09/21/16 at 09:00 Clonidine 1 patch 1 patch Q7D T-DERMAL Last administered on 09/21/16 01:17; Start 09/20/16 at 22:15; Stop 09/24/16 at 08:34; Status DC Potassium Phosphate 15 mmol/ Sodium Chloride 155 ml @ 38.75 mls/ hr ONCE ONCE IV Last administered on 09/21/16 08:54; Start 09/21/16 at 09:00; Stop at 12:59; Status DC Potassium Chloride (KCl 20 Meq Premix Inj) 100 ml @ 50 mls/hr Q2H IV Last administered on 09/21/16 09:50; Start 09/21/16 at 08:00; Stop 09/21/16 at 11:59 ; Status DC Enoxaparin Sodium 40 mg 40 mg Q24H SQ Last administered on 10/05/16 20:50; Start 09/21/16 at 20:00 Potassium Phosphate 15 mmol/ Sodium Chloride 155 ml @ 38.75 mls/ hr ONCE ONCE IV Last administered on 09/21/16 22:25; Start 09/21/16 at 20:00; Stop at 23:59; Status DC Potassium Chloride 100 ml @ 50 mls/hr Q2H IV Last administered on 09/22/16 16 :26; Start 09/22/16 at 12:00; Stop 09/22/16 at 15:59; Status DC Magnesium Sulfate/ Dextrose (Magnesium Sulfate 1 Gm Premix) 100 ml @ 100 mls/ hr ONCE ONCE IV Last administered on 09/22/16 14:24; Start 09/22/16 at 12:00 ; Stop 09/22/16 at 12:59; Status DC Enalaprilat 1.25 mg 1.25 mg Q6H PRN IV PUSH SYS BP GREATER THAN 160 MMHG Last administered on 09/27/16 13:20; Start 09/22/16 at 21:30 Sodium Chloride 11 meq/Sodium Acetate 59 meq/ Potassium Chloride 20 meq/ Potassium Phosphate 60 meq/ Magnesium Chloride 10 meq/ Calcium Chloride 9 meq/ Multivitamins 10 ml/Folic Acid 1 mg/Famotidine 40 mg/Insulin Human Regular 20 units/ Amino Acids/ Dextrose 2,081.9801 ml @ 83 mls/hr Q24H IV-CENTRAL Last administered on 09/24/16 21:45; Start 09/23/16 at 20:00; Stop 09/25/16 at 19:59 ; Status DC Aztreonam 2000 mg/ Sodium Chloride 100 ml @ 200 mls/hr Q8H IV ; Start 09/23/16 at 14:00; Stop 09/23/16 at 14:00; Status DC Azithromycin/ Sodium Chloride (Zithromax Inj/ NS 250 ml Inj) 250 ml @ 250 mls/ hr Q24H IV Last administered on 09/28/16 14:52; Start 09/23/16 at 13:00; Stop 09/29/16 at 09:28; Status DC Miscellaneous Medication (ASP Crit: Doc allergy to Penicillin/ Cephalosp) 1 UNSCH X1 PRN .XX PHARMACY DOCUMENTATION; Start 09/23/16 at 12:15; Stop at 12:15; Status DC Miscellaneous Medication (ASP Crit: Necrotizing pancreatitis) 1 UNSCH X1 PRN .XX PHARMACY DOCUMENTATION; Start 09/23/16 at 12:15; Stop 09/24/16 at 12:15; Status DC Miscellaneous Medication 1 1 UNSCH X1 PRN XX PHARMACY DOCUMENTATION; Start at 12:15; Stop 09/24/16 at 12:15; Status DC Ertapenem/Sodium Chloride (INVanz INJ/NS Inj) 100 ml @ 200 mls/hr Q24H IV Last administered on 09/24/16 15:33; Start 09/23/16 at 14:00; Stop 09/25/16 at 09:07; Status DC Miscellaneous Medication ([facility] 1 UNSCH X1 PRN XX PHARMACY DOCUMENTATION; Start 09/23/16 at 12:15; Stop 09/24/16 at 12:15; Status DC Propofol (Diprivan 200 Mg/20 ml Inj) 200 mg STK-MED ONCE IV ; Start 09/19/16 at 12:00; Stop 09/23/16 at 14:53; Status DC Phenylephrine HCl 1000 mcg 1,000 mcg STK-MED ONCE IV ; Start 09/19/16 at 12:00; Stop 09/23/16 at 14:53; Status DC Lactated Ringer's 1,000 ml @ As Directed STK-MED ONCE IV ; Start 09/19/16 at 12 :00; Stop 09/23/16 at 14:53; Status DC Sodium Chloride (NS 500 ml Inj) 500 ml @ As Directed STK-MED ONCE IV ; Start at 12:00; Stop 09/23/16 at 14:53; Status DC Iohexol (Omnipaque 350 Inj) 100 ml STK-MED ONCE IV Last administered on 06:59; Start 09/24/16 at 06:59; Stop 09/24/16 at 07:00; Status DC Clonidine 1 patch 1 patch Q7D T-DERMAL Last administered on 10/01/16 09:55; Start 09/24/16 at 11:00 Pharmacy Profile Note (Vancomycin Consult Pharmacy) 0 ml @ 0 mls/hr UNSCH OTHER ; Start 09/24/16 at 09:45; Stop 09/29/16 at 15:53; Status DC Miscellaneous Information 1 1 Q7D T-DERMAL Last administered on 10/01/16 09:56 ; Start 09/24/16 at 11:00 Vancomycin HCl/ Sodium Chloride (Vancomycin Inj/ NS 250 ml Inj) 262.5 ml @ 250 mls/hr Q12H IV Last administered on 09/26/16 01:06; Start 09/24/16 at 12:00; Stop 09/26/16 at 02:02; Status DC Miscellaneous Information SPECIFIC LAB TO BE DRAWN:VANCO TROUGH DATE TO... ONCE ONCE .XX Last administered on 09/25/16 23:45; Start 09/25/16 at 23:45; Stop 09/25/16 at 23:46; Status DC Potassium Phosphate 15 mmol/ Sodium Chloride 155 ml @ 38.75 mls/ hr ONCE ONCE IV Last administered on 09/24/16 17:23; Start 09/24/16 at 16:00; Stop at 19:59; Status DC Ertapenem/Sodium Chloride (INVanz INJ/NS Inj) 50 ml @ 200 mls/hr Q24H IV Last administered on 09/30/16 17:04; Start 09/25/16 at 16:00; Stop 10/01/16 at 09:11 ; Status DC Miscellaneous Medication PLEASE CONCENTRATE ALL... UNSCH OTHER ; Start 09/25/16 at 09:15 Sodium Acetate 59 meq/Potassium Chloride 20 meq/ Potassium Phosphate 90 meq/ Magnesium Chloride 10 meq/ Calcium Chloride 9 meq/ Multivitamins 10 ml/Folic Acid 1 mg/Famotidine 40 mg/Insulin Human Regular 20 units/ Amino Acids/ Dextrose 2,086.0482 ml @ 83 mls/hr Q24H IV-CENTRAL ; Start 09/25/16 at 09:30; Status Cancel Sodium Acetate 59 meq/Potassium Chloride 20 meq/ Potassium Phosphate 90 meq/ Magnesium Chloride 10 meq/ Calcium Chloride 9 meq/ Multivitamins 10 ml/Folic Acid 1 mg/Famotidine 40 mg/Insulin Human Regular 20 units/ Amino Acids/ Dextrose 2,086.0482 ml @ 83 mls/hr Q24H IV-CENTRAL Last administered on 20:35; Start 09/25/16 at 20:00; Stop 09/27/16 at 09:05; Status DC Vancomycin HCl/ Sodium Chloride (Vancomycin Inj/ NS 500 ml Inj) 515 ml @ 250 mls/hr Q12H IV Last administered on 09/29/16 12:06; Start 09/26/16 at 12:00; Stop 09/29/16 at 15:53; Status DC Miscellaneous Information SPECIFIC LAB TO BE AZUCENA... ONCE ONCE .XX ; Start 09/27 at 23:45; Stop 09/27/16 at 23:46; Status DC Diatrizoate Meglum/ Diatrizoate Sod 120 ml 120 ml STK-MED ONCE NG ; Start at 10:21; Stop 09/26/16 at 10:22; Status DC Potassium Acetate/ Potassium Phosphate/ Magnesium Chloride/Calcium Chloride/ Multivitamins/ Folic Acid/ Famotidine/ Insulin Human Regular/Amino Acids/ Dextrose (Potassium Acetate Inj/ Potassium Phosphate Inj/ Magnesium Chloride Inj / Calcium Chlor... 2,080.5937 ml @ 83 mls/hr Q24H IV-CENTRAL Last administered on 09/30/16 20:34; Start 09/27/16 at 20:00; Stop 10/01/16 at 09:06; Status DC Benzocaine/ Menthol 1 lozenge 1 lozenge UNSCH PRN BUCCAL sore throat; Start at 16:00 Sodium Chloride/ Sterile Water (Sodium Chloride 23.4% Inj/Sterile Water For Inj ) 1,009.625 ml @ 15 mls/hr Q24H IV Last administered on 10/05/16 08:27; Start 09/28/16 at 17:00 Miscellaneous Information SPECIFIC LAB TO BE ... ONCE ONCE .XX ; Start 10/01 at 23:45; Stop 10/01/16 at 23:46; Status Cancel Phenol (Chloraseptic [place]) 2 spray Q2H PRN OROPHARYNG sore throat; Start 09/30 at 10:00 Diatrizoate Meglum/ Diatrizoate Sod 18 ml 18 ml ONCE ONCE PO Last administered on 09/30/16 12:55; Start 09/30/16 at 11:30; Stop 09/30/16 at 11:31 ; Status DC Micafungin Sodium 100 mg/Sodium Chloride 100 ml @ 100 mls/hr Q24H IV Last administered on 10/05/16 12:49; Start 09/30/16 at 13:00 Linezolid (Zyvox 600 Mg Premix) 300 ml @ 300 mls/hr Q12H IV Last administered on 10/06/16 02:22; Start 09/30/16 at 12:00 Iohexol 97 ml 97 ml STK-MED ONCE IV ; Start 09/30/16 at 19:59; Stop 09/30/16 at 20:00; Status DC Magnesium Chloride/Calcium Chloride/ Multivitamins/ Folic Acid/ Famotidine/ Insulin Human Regular/Amino Acids/Dextrose (Magnesium Chloride Inj/ Calcium Chloride Inj/Mvi-12 Inj/ Folvite Inj/ Pepcid Inj/ NovoLIN R (IV INFUSION)/ Clinimix ) 2,026.0937 ml @ 83 mls/hr Q24H IV-CENTRAL Last administered on 10/03/16 20:00; Start 10/01/16 at 20:00; Stop 10/04/16 at 13:48; Status DC Miscellaneous Medication (ASP Crit: Necrotizing pancreatitis) 1 UNSCH X1 PRN .XX PHARMACY DOCUMENTATION; Start 10/01/16 at 09:15; Stop 10/02/16 at 09:14; Status DC Miscellaneous Medication ([facility] [facility] [place] 1 UNSCH X1 PRN XX PHARMACY DOCUMENTATION; Start 10/01/16 at 09:15; Stop 10/02/16 at 09:14; Status DC Miscellaneous Medication 1 1 UNSCH X1 PRN XX PHARMACY DOCUMENTATION; Start at 09:15; Stop 10/02/16 at 09:14; Status DC Meropenem/Sodium Chloride (Merrem Inj/NS Inj) 100 ml @ 200 mls/hr Q8H IV Last administered on 10/06/16 03:57; Start 10/01/16 at 10:00 Sodium Chloride (NS Flush) See Protocol DAILY IV FLUSH Last administered on 08:31; Start 10/02/16 at 09:00 Sodium Chloride (NS Flush) See Protocol UNSCH PRN IV FLUSH SEE PROTOCOL TABLE; Start 10/01/16 at 17:15 Heparin Sodium (Porcine) (Heparin Central Flush) See Protocol DAILY IV FLUSH Last administered on 10/05/16 08:31; Start 10/02/16 at 09:00 Heparin Sodium (Porcine) (Heparin Central Flush) See Protocol UNSCH PRN IV FLUSH SEE PROTOCOL TABLE; Start 10/01/16 at 17:15 Sodium Chloride UNSCH PRN IV FLUSH SEE PROTOCOL TABLE; Start 10/01/16 at 17:15 Magnesium Chloride/ Multivitamins/ Folic Acid/ Famotidine/ Insulin Human Regular /Amino Acids/Dextrose (Magnesium Chloride Inj/ Mvi-12 Inj/ Folvite Inj/ Pepcid Inj/ NovoLIN R (IV INFUSION)/ Clinimix 4.) 2,019.4761 ml @ 83 mls/hr Q24H IV-CENTRAL Last administered on 10/05/16 20:00; Start 10/04/16 at 20:00 Diphenhydramine HCl (Benadryl Inj) 25 mg Q8HR PRN IV PUSH ITCHING Last administered on 10/06/16 05:47; Start 10/05/16 at 11:30 A/P Assessment and Plan A/P 1. Pancreatic Abscess: recent "pancreas surgery" at by Dr. Mathias approx [address] ago for pseudocyst. 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 Patient is sp exploratory laparotomy, irrigation and drainage of pancreatic abscess. Management as per general surgery. continue with pain control- Follow-up upper GI series shows suspected gastric perforation at the distal inferior stomach. however repeated upper GI series with no leak- started on sips of clear liquid- continue TPN- continue Micafungin, Meropenem and Zyvox- monitor CBC. ID following. repeated blood cultures negative so far. 2. Hypercalcemia: will adjust the supplementation through TPN- start IV fluid- will monitor 3. Leukocytosis: improving. continue antibiotics as noted above- monitor CBC. ID following. 4. Alcohol Abuse: reports h/o alcohol abuse, however states he quit. Continue to monitor for possible withdrawal. 5. COPD: Chronic Respiratory Failure. Stable. Resumed home MDI/Neb. continue O2 to keep o2 sat more than 92%. 6. DM: Sliding scale w/ Accu-Cheks. Hold Metformin. Will continue insulin Levemir and regular in the TPN. 7. HTN: Improving continue clonidine patch to TTS 3. 8-hyperphosphatemia.; adjust through TPN- will monitor DVT prophylaxis with subq Lovenox. continue PT. Rick Rahman MD Oct 06, 2016 08:49
[2016-10-06] MEDS ORDERED: SODIUM CHLOR 0.9% 1000 ML INJ 1,000 ML IV ONE (09:00)
[2016-10-06] MEDS: SODIUM CHLORIDE 0.9% FLUSH 10 ML FLUSH IV FLUSH SCH ×3 (09:00→21:23)
[2016-10-06] MEDS: BUDESONIDE-FORMOTEROL 160/4.5 MCG INHALER INH SCH ×2 (09:00→21:00)
[2016-10-06] MEDS: INSULIN DETEMIR 100 UNITS/ML VIAL SQ SCH ×2 (09:53→21:00)
[2016-10-06 12:00] VITALS: BP 136/73; PULSE 101; RESP 19; TEMP 95.8; O2SAT 98
[2016-10-06] MEDS: MICAFUNGIN INJ 100 MG in SODIUM CHLORIDE 0.9% INJ 100 ML IV SCH (12:46)
--- NOTE | 2016-10-06 13:04 | HHI.IDPN ---
Note Infectious Disease Note Patient without complaints. Feels better. No nausea. On TPN. Afebrile. CT of abdomen shows small residual abscess. Presented to [facility] on September 16 with abdominal pain and also nausea and vomiting. Post irrigation and debridement of pancreatic abscess which was a large abscess and also pancreatic necrosectomy. 2nd surgery for same. PAST MEDICAL HISTORY: 1. Hepatitis C. 2. COPD. 3. Diabetes mellitus. 4. Alcohol abuse. 5. Congestive heart failure. 6. COPD. 7. History of appendectomy. 8. Patient underwent pancreatic necrosectomy on August 26, 2016. ALLERGIES: PENICILLIN. MEDICATIONS: 1. Ertapenem. 2. Micafungin. 3. Zyvox. SOCIAL HISTORY: The patient smoked two packs of cigarettes a day up until June of 2016. Alcohol use up until April of 2016. No illicit drugs. OBJECTIVE: Vital Signs Date Time Temp Pulse Resp B/P Pulse Ox O2 Delivery O2 Flow Rate FiO2 10/06/16 12:00 95.8 101 19 136/73 98 10/06/16 08:00 99.0 90 16 126/72 98 10/06/16 05:48 16 10/06/16 04:21 99.1 82 17 131/77 94 10/06/16 00:29 99.3 80 16 138/72 94 10/05/16 22:00 16 10/05/16 20:30 98.8 88 17 136/76 97 10/05/16 16:00 96.2 75 17 158/78 98 10/05/16 10/05/16 10/06/16 15:00 23:00 07:00 Intake Total 1223 ml 1100 ml 1590 ml Output Total 725 ml 1000 ml 1000 ml Balance 498 ml 100 ml 590 ml Intake Oral 0 ml 280 ml IV Total 551 ml 293 ml 500 ml TPN/PPN 599 ml 726 ml 723 ml Lipid 73 ml 81 ml 87 ml Output Urine Total 725 ml 1000 ml 1000 ml # Bowel Movements 0 1 Laboratory Tests Test 10/06/16 03:52 White Blood Count 17.9 TH/MM3 Red Blood Count 3.03 MIL/MM3 Hemoglobin 7.7 GM/DL Hematocrit 26.8 % Mean Corpuscular Volume 88.4 FL Mean Corpuscular Hemoglobin 25.4 PG Mean Corpuscular Hemoglobin 28.7 % Concent Red Cell Distribution Width 18.3 % Platelet Count 293 TH/MM3 Mean Platelet Volume 11.1 FL Neutrophils (%) (Auto) 72.8 % Lymphocytes (%) (Auto) 11.6 % Monocytes (%) (Auto) 11.2 % Eosinophils (%) (Auto) 4.1 % Basophils (%) (Auto) 0.3 % Neutrophils # (Auto) 13.1 TH/MM3 Lymphocytes # (Auto) 2.1 TH/MM3 Monocytes # (Auto) 2.0 TH/MM3 Eosinophils # (Auto) 0.7 TH/MM3 Basophils # (Auto) 0.0 TH/MM3 CBC Comment AUTO DIFF Differential Comment AUTO DIFF CONFIRMED Platelet Estimate NORMAL Platelet Morphology Comment NORMAL Acanthocytes OCC Keratocytes OCC Laboratory Tests Test 10/06/16 06:08 Sodium Level 138 MEQ/L Potassium Level 3.7 MEQ/L Chloride Level 107 MEQ/L Carbon Dioxide Level 23.7 MEQ/L Anion Gap 7 MEQ/L Blood Urea Nitrogen 27 MG/DL Creatinine 0.76 MG/DL Estimat Glomerular Filtration 124 ML/MIN Rate Random Glucose 100 MG/DL Calcium Level 11.0 MG/DL Phosphorus Level 1.9 MG/DL Microbiology Date/Time Procedure Status Source Growth 09/30/16 18:00 Gram Stain - Final Complete Wound Abdomen 09/30/16 18:00 Wound Culture - Final Complete Wound Abdomen NO GROWTH IN 72 HRS.--AEROBICALLY OR ... 10/01/16 10:20 Aerobic Blood Culture - Preliminary Resulted Blood Line NO GROWTH IN 2 DAYS 10/01/16 10:20 Anaerobic Blood Culture - Preliminary Resulted Blood Line NO GROWTH IN 2 DAYS 10/02/16 05:48 Aerobic Blood Culture - Preliminary Resulted Blood Peripheral NO GROWTH IN 1 DAY 10/02/16 05:48 Anaerobic Blood Culture - Preliminary Resulted Blood Peripheral NO GROWTH IN 1 DAY IMAGING: Abdomen CT 10/03/16 1526 Signed Impressions: Service Date/Time: Monday, October 03, 2016 15:30 - CONCLUSION: 1. Small residual abscess anterior to the second portion of the duodenum in somewhat of a precarious place to drain percutaneously. There is no obvious extravasation of contrast into this. 2. Nasogastric tube was repositioned into the stomach. Kermit Rollins MD FACR Upper GI Series 10/03/16 0000 Signed Impressions: Service Date/Time: Monday, October 03, 2016 15:01 - CONCLUSION: I see no obvious leak however the examination is limited. Bulk of the Gastrografin tries to reflux back into the esophagus. Kermit Rollins MD FACR Chest X-Ray 10/01/16 0000 Signed Impressions: Service Date/Time: Saturday, October 01, 2016 17:03 - CONCLUSION: 1. Left- sided PICC line has its tip in the superior vena cava in good position. 2. Perihilar atelectasis is stable. Adiel Noland MD Abdomen/Pelvis CT 09/30/16 0000 Signed Impressions: Service Date/Time: Friday, September 30, 2016 18:41 - CONCLUSION: 1. Multiple fluid collections seen associated with the pancreas and the root of the mesentery. The fluid collection associated with the pancreatic tail has increased in size from the prior study while the remaining collections are essentially stable. Hubert Rodrigues Jr., MD Upper GI Series 09/26/16 0600 Signed Impressions: Service Date/Time: Monday, September 26, 2016 08:53 - CONCLUSION: Suspected gastric perforation at the inferior distal aspect of the stomach with a collection seen inferior to the distal stomach and anterior to the duodenum. Mason Monge MD Abdomen/Pelvis CT 09/24/16 0000 Signed Impressions: Service Date/Time: Saturday, September 24, 2016 06:57 - CONCLUSION: 1. The peripancreatic fluid collections adjacent to the tail the pancreas and pancreatic head have decreased in size, as above. Similar to prior examination , the collection adjacent to the pancreatic head contains air and thick fluid like material. 2. There is left lower lobe collapse/atelectasis that is new since the prior CT. Mason Ceja MD PHYSICAL EXAMINATION: GENERAL: No acute distress. Awake alert and oriented. HEENT: The sclerae are pale. Oropharynx with no visible lesions. NECK: Supple without adenopathy. LUNGS: Decreased breath sounds. HEART: Irregular rate and rhythm. No murmurs, rubs or gallops. ABDOMEN: Bowel sounds diminished. flat, soft, Non tender. EXTREMITIES: No clubbing or cyanosis or edema. SKIN: No rash. NEUROLOGIC: Alert and oriented. No gross focal findings. PSYCHIATRIC: Calm and cooperative. IMPRESSION: 1. Pancreatic abscess. Status post drainage and pancreatic necrosectomy. (Wound culture has E. coli R to Levaquin. Also Lou. ) Recurrent abdominal fluid collections. Fluid collection now residual. 2. Leukocytosis. Probable related to intraabdominal infection. WBC lower today. 3. Penicillin allergy. RECOMMENDATIONS: 1. Continue Zyvox. 2. Continue Micafungin. 3. Continue Ertapenem - E coli resistant and allergy to Penicillin. 4. Monitor temp and white blood cell count. Antibiotic taper with further decrease in WBC. Maxime Hernandez MD Oct 06, 2016 13:04
[2016-10-06] MEDS: SODIUM CHLORIDE 23.4% INJ 38.5 MEQ in WATER STERILE FOR INJ 1,000 ML IV SCH (13:30)
[2016-10-06 16:00] VITALS: BP 137/80; PULSE 86; RESP 17; TEMP 95.5; O2SAT 99
--- NOTE | 2016-10-06 17:20 | HHI.PR ---
Subjective Subjective Notes Doing well; pain controlled Tolerating clear liquids Objective Vitals/I&O Vital Signs Date Time Temp Pulse Resp B/P Pulse Ox O2 Delivery O2 Flow Rate FiO2 10/06/16 16:00 95.5 86 17 137/80 99 10/05/16 08:30 Room Air 10/03/16 04:00 1.00 10/02/16 17:27 21 Labs Laboratory Tests Test 10/06/16 10/06/16 03:52 06:08 White Blood Count 17.9 Red Blood Count 3.03 Hemoglobin 7.7 Hematocrit 26.8 Mean Corpuscular Volume 88.4 Mean Corpuscular Hemoglobin 25.4 Mean Corpuscular Hemoglobin 28.7 Concent Red Cell Distribution Width 18.3 Platelet Count 293 Mean Platelet Volume 11.1 Neutrophils (%) (Auto) 72.8 Lymphocytes (%) (Auto) 11.6 Monocytes (%) (Auto) 11.2 Eosinophils (%) (Auto) 4.1 Basophils (%) (Auto) 0.3 Neutrophils # (Auto) 13.1 Lymphocytes # (Auto) 2.1 Monocytes # (Auto) 2.0 Eosinophils # (Auto) 0.7 Basophils # (Auto) 0.0 CBC Comment AUTO DIFF Differential Comment AUTO DIFF CONFIRMED Platelet Estimate NORMAL Platelet Morphology Comment NORMAL Acanthocytes OCC Keratocytes OCC Sodium Level 138 Potassium Level 3.7 Chloride Level 107 Carbon Dioxide Level 23.7 Anion Gap 7 Blood Urea Nitrogen 27 Creatinine 0.76 Estimat Glomerular Filtration 124 Rate Random Glucose 100 Calcium Level 11.0 Phosphorus Level 1.9 Date/Time Procedure Status Source Growth 10/02/16 05:48 Aerobic Blood Culture - Preliminary Resulted Blood Peripheral NO GROWTH IN 4 DAYS 10/02/16 05:48 Anaerobic Blood Culture - Preliminary Resulted Blood Peripheral NO GROWTH IN 4 DAYS Cardiovascular: Regular Lungs: Clear Abdomen: Other (retention sutures in place; abd soft ) Extremities: No edema Narrative Exam NGT removed EDER drain removed A/P Assessment and Plan 66 year old male with pancreatic abscess s/p I&D pancreatis abscess with pancreatic necrosectomy -Continue sips of clear liquids today -Pain control--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
[2016-10-06 20:00] VITALS: BP 137/73; PULSE 70; RESP 16; RESP 17; TEMP 98.1; O2SAT 95
[2016-10-06] MEDS: ENOXAPARIN SODIUM 40 MG/0.4 ML SYRINGE SQ SCH (21:21)
[2016-10-06] MEDS: [UNRECOGNIZED DRUG - OTHER] IV-CENTRAL SCH ×5 (21:22)
[2016-10-06] MEDS: MULTIVITAMIN IV-CENTRAL SCH ×5 (21:22)
[2016-10-06] MEDS: FOLIC ACID IV-CENTRAL SCH ×5 (21:22)
[2016-10-06] MEDS: FAMOTIDINE IV-CENTRAL SCH ×5 (21:22)
[2016-10-06] MEDS: FAT EMULSION 20% INJ 250 ML (@10 mls/hr) IV-CENTRAL SCH (21:23)
[2016-10-07] VITALS (9 sets, daily range): BP systolic 123–150; BP diastolic 66–84; PULSE 84–95; RESP 16–22; TEMP 97.8–99.7; O2SAT 94–100
[2016-10-07] MEDS: MEROPENEM INJ 1,000 MG in SODIUM CHLORIDE 0.9% INJ 100 ML IV SCH ×3 (01:40→18:07)
[2016-10-07] MEDS: INSULIN ASPART SUPPLEMENTAL SCALE SQ SCH ×3 (05:10→17:22)
[2016-10-07] MEDS: PCA - TOTAL MG MORPHINE DELIVERED PER SHIFT SCH ×3 (05:11→22:00)
[2016-10-07 05:47] LABS: BICARBONATE 23.5 MEQ/L (21.0-32.0); POTASSIUM 3.8 MEQ/L (3.5-5.1)
[2016-10-07] MEDS: MORPHINE SULFATE 30 MG/30 ML PCA IV SCH (07:20)
[2016-10-07] MEDS: SODIUM CHLORIDE 0.9% FLUSH 10 ML FLUSH IV FLUSH SCH ×3 (09:00→20:16)
[2016-10-07] MEDS: BUDESONIDE-FORMOTEROL 160/4.5 MCG INHALER INH SCH ×2 (09:00→20:16)
[2016-10-07] MEDS: INSULIN DETEMIR 100 UNITS/ML VIAL SQ SCH ×2 (09:33→20:15)
[2016-10-07] MEDS: diphenhydrAMINE HCL 50 MG/ML VIAL IV PUSH PRN (09:34)
[2016-10-07] MEDS ORDERED: SODIUM CHLOR 0.9% 1000 ML INJ 1,000 ML IV ONE (10:00)
--- NOTE | 2016-10-07 10:11 | HHI.PR ---
Subjective Remarks resting comfortably with no distress. denies abdominal pain, nausea or vomiting. afebrile. Objective Vitals Vital Signs Date Time Temp Pulse Resp B/P Pulse Ox O2 Delivery O2 Flow Rate FiO2 10/07/16 08:10 18 10/07/16 08:00 97.8 86 18 123/73 100 10/07/16 07:20 18 10/07/16 05:11 18 10/07/16 04:51 99.0 89 17 150/84 94 10/07/16 00:28 98.7 84 17 129/66 97 10/06/16 21:24 16 10/06/16 20:00 98.1 70 17 137/73 95 10/06/16 20:00 16 10/06/16 16:00 95.5 86 17 137/80 99 10/06/16 14:00 18 10/06/16 12:00 95.8 101 19 136/73 98 I/O 10/06/16 10/06/16 10/06/16 10/07/16 10/07/16 10/07/16 07:00 15:00 23:00 07:00 15:00 23:00 Intake Total 1590 ml 320 ml 1197 ml 1278 ml Output Total 1000 ml 375 ml 1100 ml 700 ml Balance 590 ml -55 ml 97 ml 578 ml Intake Oral 280 ml 320 ml 240 ml 280 ml IV Total 500 ml 476 ml 488 ml TPN/PPN 723 ml 415 ml 443 ml Lipid 87 ml 66 ml 67 ml Output Urine Total 1000 ml 375 ml 1100 ml 700 ml # Voids 1 # Bowel Movements 1 1 Result Diagram: 10/06/16 0352 10/07/16 0505 Imaging Last Impressions Abdomen CT 10/03/16 1526 Signed Impressions: Service Date/Time: Monday, October 03, 2016 15:30 - CONCLUSION: 1. Small residual abscess anterior to the second portion of the duodenum in somewhat of a precarious place to drain percutaneously. There is no obvious extravasation of contrast into this. 2. Nasogastric tube was repositioned into the stomach. Kermit Rollins MD FACR Upper GI Series 10/03/16 0000 Signed Impressions: Service Date/Time: Monday, October 03, 2016 15:01 - CONCLUSION: I see no obvious leak however the examination is limited. Bulk of the Gastrografin tries to reflux back into the esophagus. Kermit Rollins MD FACR Chest X-Ray 10/01/16 0000 Signed Impressions: Service Date/Time: Saturday, October 01, 2016 17:03 - CONCLUSION: 1. Left- sided PICC line has its tip in the superior vena cava in good position. 2. Perihilar atelectasis is stable. Adiel Noland MD Abdomen/Pelvis CT 09/30/16 0000 Signed Impressions: Service Date/Time: Friday, September 30, 2016 18:41 - CONCLUSION: 1. Multiple fluid collections seen associated with the pancreas and the root of the mesentery. The fluid collection associated with the pancreatic tail has increased in size from the prior study while the remaining collections are essentially stable. Hubert Rodrigues Jr., MD Objective Remarks GENERAL: looks fairly comfortable. CARDIOVASCULAR: Regular rate and irregular rhythm without murmurs, gallops, or rubs. RESPIRATORY: Clear to auscultation. Breath sounds equal bilaterally. No wheezes , rales, or rhonchi. GASTROINTESTINAL: Abdomen soft, non-tender, nondistended. drain in place. MUSCULOSKELETAL: Extremities without clubbing, cyanosis, or edema. NEURO: Alert & Oriented x4 to person, place, time, situation. Moves all ext x4 Procedures Right IJ central line sp Exploratory laparotomy, irrigation and debridement of peripancreatic abscess and necrosectomy PICC line placement Medications and IVs Current Medications Ondansetron HCl (Zofran Inj) 4 mg ONCE ONCE IVP Last administered on 09/16/16 19:48; Start 09/16/16 at 19:00; Stop 09/16/16 at 19:01; Status DC Sodium Chloride (NS Flush) 2 ml UNSCH PRN IV FLUSH FLUSH AFTER USING IV ACCESS Last administered on 09/16/16 19:48; Start 09/16/16 at 19:00; Stop 09/16/16 at 21: 05; Status DC Hydromorphone HCl 1 mg 1 mg ONCE ONCE IVS Last administered on 09/16/16 19:48 ; Start 09/16/16 at 19:00; Stop 09/16/16 at 19:01; Status DC Sodium Chloride 500 ml @ 500 mls/hr BOLUS ONCE IV Last administered on 19:47; Start 09/16/16 at 19:00; Stop 09/16/16 at 19:59; Status DC Aztreonam 2000 mg/ Sodium Chloride 100 ml @ 200 mls/hr ONCE STAT IV Last administered on 09/16/16 22:52; Start 09/16/16 at 20:25; Stop 09/16/16 at 20:54; Status DC Metronidazole 100 ml @ 100 mls/hr ONCE STAT IV Last administered on 09/16/16 21:57; Start 09/16/16 at 20:25; Stop 09/16/16 at 21:24; Status DC Ciprofloxacin/ Dextrose 200 ml @ 200 mls/hr Q12H IV Last administered on 10:59; Start 09/17/16 at 09:00; Stop 09/20/16 at 20:42; Status DC Metronidazole 100 ml @ 100 mls/hr Q8H IV Last administered on 09/20/16 11:39 ; Start 09/17/16 at 04:00; Stop 09/20/16 at 20:42; Status DC Sodium Chloride (NS 1000 ml Inj) 1,000 ml @ 125 mls/hr Q8H IV Last administered on 09/19/16 09:59; Start 09/16/16 at 20:54; Stop 09/19/16 at 20:15 ; Status DC Sodium Chloride (NS Flush) 2 ml UNSCH PRN IV FLUSH FLUSH AFTER USING IV ACCESS ; Start 09/16/16 at 21:00 Sodium Chloride (NS Flush) 2 ml BID IV FLUSH Last administered on 10/06/16 21: 23; Start 09/16/16 at 21:00 Ondansetron HCl (Zofran Inj) 4 mg Q6H PRN IVP NAUSEA OR VOMITING Last administered on 09/30/16 12:54; Start 09/16/16 at 21:00 Acetaminophen (Tylenol) 650 mg Q6H PRN PO FEVER; Start 09/16/16 at 21:00; Status Hold Morphine Sulfate (Morphine Inj) 2 mg Q3H PRN IV Pain 6-10 Last administered on 09/19/16 15:26; Start 09/16/16 at 21:00; Stop 09/19/16 at 19:31; Status DC Oxycodone HCl (Roxicodone) 5 mg Q4H PRN PO PAIN SCALE 3 TO 5 Last administered on 09/16/16 22:52; Start 09/16/16 at 21:00; Status Hold Senna/Docusate Sodium (Fátima-Colace) 1 tab BID PO Last administered on 20:08; Start 09/16/16 at 21:00; Status Hold Magnesium Hydroxide (Milk Of Magnesia Liq) 30 ml Q12H PRN PO MILD - MODERATE CONSTIPATION; Start 09/16/16 at 21:00; Status Hold Sennosides (Senokot) 17.2 mg Q12H PRN PO MODERATE - SEVERE CONSTIPATION; Start 09/16/16 at 21:00; Status Hold Bisacodyl (Dulcolax Supp) 10 mg DAILY PRN RECTAL SEVERE CONSITIPATION; Start at 21:00 Lactulose (Lactulose Liq) 30 ml DAILY PRN PO SEVERE CONSITIPATION; Start at 21:00; Status Hold Hydromorphone HCl (Dilaudid Pf Inj) 1 mg ONCE ONCE IV PUSH ; Start 09/16/16 at 22:15; Stop 09/16/16 at 22:16; Status DC Albuterol Sulfate (Albuterol Neb) 2.5 mg QID NEB PRN NEB SHORTNESS OF BREATH Last administered on 09/27/16 03:09; Start 09/17/16 at 02:15 Allopurinol (Zyloprim) 300 mg DAILY PO Last administered on 09/19/16 09:58; Start 09/17/16 at 09:00; Status Hold Amlodipine Besylate (Norvasc) 5 mg BID PO Last administered on 09/19/16 09:58 ; Start 09/17/16 at 09:00; Status Hold Budesonide/ Formoterol Fumarate (Symbicort 160-4.5 Inh) 2 puff Q12HR INH Last administered on 10/06/16 21:00; Start 09/17/16 at 09:00 Clonidine (Catapres) 0.2 mg Q12HR PO Last administered on 09/19/16 09:58; Start 09/17/16 at 09:00; Status Hold Gabapentin (Neurontin) 600 mg TID PO Last administered on 09/19/16 09:58; Start 09/17/16 at 09:00; Status Hold Roflumilast (Daliresp) 500 mcg DAILY PO Last administered on 09/19/16 09:58; Start 09/17/16 at 09:00; Status Hold Thiamine HCl (Vitamin B1) 100 mg DAILY PO Last administered on 09/18/16 08:19 ; Start 09/17/16 at 09:00; Status Hold Zolpidem Tartrate (Ambien) 5 mg HS PRN PO insomnia Last administered on 22:57; Start 09/17/16 at 02:15; Status Hold Folic Acid (Folate) 1 mg DAILY PO Last administered on 09/18/16 08:18; Start 09/17/16 at 09:00; Status Hold Amylase/Lipase/ Protease (Creon 24-76-120) 2 cap TID PO Last administered on 17:07; Start 09/17/16 at 13:00; Status Hold Iohexol 98 ml 98 ml STK-MED ONCE IV Last administered on 09/17/16 15:40; Start 09/17/16 at 15:40; Stop 09/17/16 at 15:41; Status DC Lactated Ringer's 1,000 ml @ 30 mls/hr Q24H PRN IV SEE LABEL COMMENTS; Start at 22:45; Stop 09/19/16 at 19:23; Status DC Sodium Chloride (NS 500 ml Inj) 500 ml @ 30 mls/hr [id number] PRN IV SEE LABEL COMMENTS; Start 09/18/16 at 22:45; Stop 09/19/16 at 19:23; Status DC Metoprolol Tartrate (Lopressor) 25 mg CHECK WRITER PRN PO SEE LABEL COMMENTS; Start 09/18/16 at 22:45; Stop 09/21/16 at 22:44; Status DC Povidone Iodine (Betadine 5% Antisepsis Kit) 1 applic CHECK WRITER PRN EACH NARE SEE LABEL COMMENTS; Start 09/18/16 at 22:45; Stop 09/21/16 at 22:44; Status DC Chlorhexidine Gluconate (Chlorhexidine 2% Cloth) 3 pack CHECK WRITER PRN TOPICAL SEE LABEL COMMENTS; Start 09/18/16 at 22:45; Stop 09/21/16 at 22:44; Status DC Insulin Human Regular See Protocol Table ... CHECK WRITER PRN SQ SEE PROTOCOL TABLE ; Start 09/18/16 at 22:45; Stop 09/21/16 at 22:44; Status DC Potassium Chloride (KCl 10 Meq Premix Inj) 100 ml @ 100 mls/hr BOLUS ONCE IV Last administered on 09/19/16 11:22; Start 09/19/16 at 11:00; Stop 09/19/16 at 11:59; Status DC Midazolam HCl (Versed Inj) 2 mg STK-MED ONCE .ROUTE Last administered on 17:03; Start 09/19/16 at 17:02; Stop 09/19/16 at 17:03; Status DC Dextrose (D50w (Vial) Inj) 50 ml UNSCH PRN IV HYPOGLYCEMIA-SEE COMMENTS; Start 09/19/16 at 19:30; Status UNV Glucagon (Glucagon Inj) 1 mg UNSCH PRN OTHER HYPOGLYCEMIA-SEE COMMENTS; Start 09/19/16 at 19:30; Status UNV Insulin Aspart (NovoLOG SUPPLEMENTAL SCALE) 1 Q6HR SQ Last administered on 09/26 12:34; Start 09/20/16 at 00:00 Dextrose (D50w (Syr) Inj) 50 ml UNSCH PRN IV HYPOGLYCEMIA-SEE COMMENTS; Start 09/19/16 at 19:30 Glucagon (Glucagon Inj) 1 mg UNSCH PRN OTHER HYPOGLYCEMIA-SEE COMMENTS; Start 09/19/16 at 19:30 Labetalol HCl (Trandate Inj) 100 mg STK-MED ONCE .ROUTE Last administered on 19:30; Start 09/19/16 at 19:27; Stop 09/19/16 at 19:28; Status DC Morphine Sulfate (Morphine Inj) 3 mg Q1H PRN IV Pain 6-10 Last administered on 09/20/16 17:15; Start 09/19/16 at 20:00; Status Hold Fentanyl Citrate (fentaNYL INJ) 500 mcg STK-MED ONCE .ROUTE ; Start 09/19/16 at 19:33; Stop 09/19/16 at 19:34; Status DC Miscellaneous Information ALL NURSING DEPARTME... UNSCH PRN .XX SEE LABEL COMMENTS; Start 09/19/16 at 19:22; Stop 09/20/16 at 19:21; Status DC Multivitamins 10 ml/Folic Acid 1 mg/Insulin Human Regular 20 units/ Famotidine 40 mg/ Amino Acids/ Electrolytes/ Dextrose 2,014.4 ml @ 83 mls/hr Q24H IV- CENTRAL Last administered on 09/22/16 20:39; Start 09/20/16 at 20:00; Stop at 19:59; Status DC Fat Emulsion Intravenous 250 ml @ 10 mls/hr Q24H IV-CENTRAL Last administered on 10/06/16 21:23; Start 09/20/16 at 20:00 Potassium Chloride/Sodium Chloride (1/2 NS + KCl 20 Meq Inj) 1,000 ml @ As Directed STK-MED ONCE .ROUTE Last administered on 09/19/16 20:12; Start at 20:07; Stop 09/19/16 at 20:08; Status DC Morphine Sulfate (*morphine INJ PERIprocedure ONLY) 8 mg STK-MED ONCE .ROUTE Last administered on 09/19/16 20:09; Start 09/19/16 at 20:08; Stop 09/19/16 at 20:09; Status DC Pantoprazole Sodium 40 mg 40 mg Q24H IV PUSH Last administered on 09/19/16 20: 35; Start 09/19/16 at 21:00; Stop 09/20/16 at 09:52; Status DC Potassium Chloride/Sodium Chloride 1,000 ml @ 125 mls/hr Q8H IV Last administered on 09/20/16 03:31; Start 09/19/16 at 20:30; Stop 09/20/16 at 09:52 ; Status DC Potassium Chloride 100 ml @ As Directed STK-MED ONCE .ROUTE ; Start 09/19/16 at 21:07; Stop 09/19/16 at 21:08; Status DC Potassium Chloride 100 ml @ 50 mls/hr Q2H IV Last administered on 09/19/16 23 :35; Start 09/19/16 at 23:00; Stop 09/20/16 at 02:59; Status DC Amino Acids/ Electrolytes/ Dextrose (Clinimix E 4.25/ 25) 1,000 ml @ 83 mls/hr Q12H3M IV-CENTRAL Last administered on 09/20/16 09:33; Start 09/20/16 at 10:00 ; Stop 09/20/16 at 22:02; Status DC Acetaminophen (Ofirmev Inj) 650 mg Q6HR PRN IV FEVER; Start 09/20/16 at 09:30 Labetalol HCl (Trandate Inj) 10 mg Q4H PRN IV PUSH SYS BP GREATER THAN 160 MMHG Last administered on 09/22/16 21:09; Start 09/20/16 at 09:30 Pantoprazole Sodium 40 mg 40 mg DAILY IV PUSH Last administered on 09/20/16 10 :59; Start 09/20/16 at 10:00; Stop 09/20/16 at 14:50; Status DC Sodium Chloride 1,000 ml @ 40 mls/hr Q24H IV Last administered on 09/24/16 08 :28; Start 09/20/16 at 10:00; Stop 09/24/16 at 15:18; Status DC Magnesium Sulfate/ Dextrose (Magnesium Sulfate 1 Gm Premix) 100 ml @ 100 mls/ hr Q1H IV Last administered on 09/20/16 11:39; Start 09/20/16 at 10:00; Stop 09/20/16 at 11:59; Status DC Pantoprazole Sodium (Protonix Inj) 40 mg Q24H IV PUSH Last administered on 09/23 11:48; Start 09/20/16 at 11:30; Stop 09/24/16 at 08:32; Status DC Naloxone HCl (Narcan Inj) 0.4 mg UNSCH PRN IV RESPIRATORY RATE LESS THAN 10; Start 09/20/16 at 14:45 Morphine Sulfate (Morphine 1 Mg/ ml [employer]) 30 mg UNSCH IV Last administered on 07:20; Start 09/20/16 at 14:45 [employer] Dosage Infused (Pha) 1 1 Q8HR .XX Last administered on 10/07/16 05:11; Start 09/20/16 at 22:00 Magnesium Sulfate/ Dextrose 100 ml @ 100 mls/hr Q1H IV Last administered on 23:49; Start 09/20/16 at 20:00; Stop 09/20/16 at 21:59; Status DC Fluconazole/ Sodium Chloride 100 ml @ 100 mls/hr Q24H IV Last administered on 09/29/16 22:10; Start 09/20/16 at 22:00; Stop 09/30/16 at 11:44; Status DC Piperacillin Sod/ Tazobactam Sod 100 ml @ 200 mls/hr Q6H IV ; Start 09/20/16 at 20:45; Stop 09/20/16 at 20:47; Status DC Ciprofloxacin/ Dextrose 200 ml @ 200 mls/hr Q12H IV Last administered on 11:48; Start 09/20/16 at 23:00; Stop 09/23/16 at 12:10; Status DC Metronidazole (Flagyl 500 Mg Inj) 100 ml @ 100 mls/hr Q6H IV Last administered on 09/29/16 10:17; Start 09/20/16 at 21:00; Stop 09/29/16 at 15:53 ; Status DC Insulin Detemir (Levemir Inj) 5 units Q12HR SQ Last administered on 10/07/16 09:33; Start 09/21/16 at 09:00 Clonidine 1 patch 1 patch Q7D T-DERMAL Last administered on 09/21/16 01:17; Start 09/20/16 at 22:15; Stop 09/24/16 at 08:34; Status DC Potassium Phosphate 15 mmol/ Sodium Chloride 155 ml @ 38.75 mls/ hr ONCE ONCE IV Last administered on 09/21/16 08:54; Start 09/21/16 at 09:00; Stop at 12:59; Status DC Potassium Chloride (KCl 20 Meq Premix Inj) 100 ml @ 50 mls/hr Q2H IV Last administered on 09/21/16 09:50; Start 09/21/16 at 08:00; Stop 09/21/16 at 11:59 ; Status DC Enoxaparin Sodium 40 mg 40 mg Q24H SQ Last administered on 10/06/16 21:21; Start 09/21/16 at 20:00 Potassium Phosphate 15 mmol/ Sodium Chloride 155 ml @ 38.75 mls/ hr ONCE ONCE IV Last administered on 09/21/16 22:25; Start 09/21/16 at 20:00; Stop at 23:59; Status DC Potassium Chloride 100 ml @ 50 mls/hr Q2H IV Last administered on 09/22/16 16 :26; Start 09/22/16 at 12:00; Stop 09/22/16 at 15:59; Status DC Magnesium Sulfate/ Dextrose (Magnesium Sulfate 1 Gm Premix) 100 ml @ 100 mls/ hr ONCE ONCE IV Last administered on 09/22/16 14:24; Start 09/22/16 at 12:00 ; Stop 09/22/16 at 12:59; Status DC Enalaprilat 1.25 mg 1.25 mg Q6H PRN IV PUSH SYS BP GREATER THAN 160 MMHG Last administered on 09/27/16 13:20; Start 09/22/16 at 21:30 Sodium Chloride 11 meq/Sodium Acetate 59 meq/ Potassium Chloride 20 meq/ Potassium Phosphate 60 meq/ Magnesium Chloride 10 meq/ Calcium Chloride 9 meq/ Multivitamins 10 ml/Folic Acid 1 mg/Famotidine 40 mg/Insulin Human Regular 20 units/ Amino Acids/ Dextrose 2,081.9801 ml @ 83 mls/hr Q24H IV-CENTRAL Last administered on 09/24/16 21:45; Start 09/23/16 at 20:00; Stop 09/25/16 at 19:59 ; Status DC Aztreonam 2000 mg/ Sodium Chloride 100 ml @ 200 mls/hr Q8H IV ; Start 09/23/16 at 14:00; Stop 09/23/16 at 14:00; Status DC Azithromycin/ Sodium Chloride (Zithromax Inj/ NS 250 ml Inj) 250 ml @ 250 mls/ hr Q24H IV Last administered on 09/28/16 14:52; Start 09/23/16 at 13:00; Stop 09/29/16 at 09:28; Status DC Miscellaneous Medication (ASP Crit: Doc allergy to Penicillin/ Cephalosp) 1 UNSCH X1 PRN .XX PHARMACY DOCUMENTATION; Start 09/23/16 at 12:15; Stop at 12:15; Status DC Miscellaneous Medication (ASP Crit: Necrotizing pancreatitis) 1 UNSCH X1 PRN .XX PHARMACY DOCUMENTATION; Start 09/23/16 at 12:15; Stop 09/24/16 at 12:15; Status DC Miscellaneous Medication 1 1 UNSCH X1 PRN XX PHARMACY DOCUMENTATION; Start at 12:15; Stop 09/24/16 at 12:15; Status DC Ertapenem/Sodium Chloride (INVanz INJ/NS Inj) 100 ml @ 200 mls/hr Q24H IV Last administered on 09/24/16 15:33; Start 09/23/16 at 14:00; Stop 09/25/16 at 09:07; Status DC Miscellaneous Medication ([facility]) 1 UNSCH X1 PRN XX PHARMACY DOCUMENTATION; Start 09/23/16 at 12:15; Stop 09/24/16 at 12:15; Status DC Propofol (Diprivan 200 Mg/20 ml Inj) 200 mg STK-MED ONCE IV ; Start 09/19/16 at 12:00; Stop 09/23/16 at 14:53; Status DC Phenylephrine HCl 1000 mcg 1,000 mcg STK-MED ONCE IV ; Start 09/19/16 at 12:00; Stop 09/23/16 at 14:53; Status DC Lactated Ringer's 1,000 ml @ As Directed STK-MED ONCE IV ; Start 09/19/16 at 12 :00; Stop 09/23/16 at 14:53; Status DC Sodium Chloride (NS 500 ml Inj) 500 ml @ As Directed STK-MED ONCE IV ; Start at 12:00; Stop 09/23/16 at 14:53; Status DC Iohexol (Omnipaque 350 Inj) 100 ml STK-MED ONCE IV Last administered on 06:59; Start 09/24/16 at 06:59; Stop 09/24/16 at 07:00; Status DC Clonidine 1 patch 1 patch Q7D T-DERMAL Last administered on 10/01/16 09:55; Start 09/24/16 at 11:00 Pharmacy Profile Note (Vancomycin Consult Pharmacy) 0 ml @ 0 mls/hr UNSCH OTHER ; Start 09/24/16 at 09:45; Stop 09/29/16 at 15:53; Status DC Miscellaneous Information 1 1 Q7D T-DERMAL Last administered on 10/01/16 09:56 ; Start 09/24/16 at 11:00 Vancomycin HCl/ Sodium Chloride (Vancomycin Inj/ NS 250 ml Inj) 262.5 ml @ 250 mls/hr Q12H IV Last administered on 09/26/16 01:06; Start 09/24/16 at 12:00; Stop 6/19/17 at 02:02; Status DC Miscellaneous Information SPECIFIC LAB TO BE DRAWN:VANCO TROUGH DATE TO... ONCE ONCE .XX Last administered on 09/25/16 23:45; Start 09/25/16 at 23:45; Stop 09/25/16 at 23:46; Status DC Potassium Phosphate 15 mmol/ Sodium Chloride 155 ml @ 38.75 mls/ hr ONCE ONCE IV Last administered on 09/24/16 17:23; Start 09/24/16 at 16:00; Stop at 19:59; Status DC Ertapenem/Sodium Chloride (INVanz INJ/NS Inj) 50 ml @ 200 mls/hr Q24H IV Last administered on 09/30/16 17:04; Start 09/25/16 at 16:00; Stop 10/01/16 at 09:11 ; Status DC Miscellaneous Medication PLEASE CONCENTRATE ALL... UNSCH OTHER ; Start 09/25/16 at 09:15 Sodium Acetate 59 meq/Potassium Chloride 20 meq/ Potassium Phosphate 90 meq/ Magnesium Chloride 10 meq/ Calcium Chloride 9 meq/ Multivitamins 10 ml/Folic Acid 1 mg/Famotidine 40 mg/Insulin Human Regular 20 units/ Amino Acids/ Dextrose 2,086.0482 ml @ 83 mls/hr Q24H IV-CENTRAL ; Start 09/25/16 at 09:30; Status Cancel Sodium Acetate 59 meq/Potassium Chloride 20 meq/ Potassium Phosphate 90 meq/ Magnesium Chloride 10 meq/ Calcium Chloride 9 meq/ Multivitamins 10 ml/Folic Acid 1 mg/Famotidine 40 mg/Insulin Human Regular 20 units/ Amino Acids/ Dextrose 2,086.0482 ml @ 83 mls/hr Q24H IV-CENTRAL Last administered on 20:35; Start 09/25/16 at 20:00; Stop 09/27/16 at 09:05; Status DC Vancomycin HCl/ Sodium Chloride (Vancomycin Inj/ NS 500 ml Inj) 515 ml @ 250 mls/hr Q12H IV Last administered on 09/29/16 12:06; Start 09/26/16 at 12:00; Stop 09/29/16 at 15:53; Status DC Miscellaneous Information SPECIFIC LAB TO BE AZUCENA... ONCE ONCE .XX ; Start 09/27 at 23:45; Stop 09/27/16 at 23:46; Status DC Diatrizoate Meglum/ Diatrizoate Sod 120 ml 120 ml STK-MED ONCE NG ; Start at 10:21; Stop 09/26/16 at 10:22; Status DC Potassium Acetate/ Potassium Phosphate/ Magnesium Chloride/Calcium Chloride/ Multivitamins/ Folic Acid/ Famotidine/ Insulin Human Regular/Amino Acids/ Dextrose (Potassium Acetate Inj/ Potassium Phosphate Inj/ Magnesium Chloride Inj / Calcium Chlor... 2,080.5937 ml @ 83 mls/hr Q24H IV-CENTRAL Last administered on 09/30/16 20:34; Start 09/27/16 at 20:00; Stop 10/01/16 at 09:06; Status DC Benzocaine/ Menthol 1 lozenge 1 lozenge UNSCH PRN BUCCAL sore throat; Start at 16:00 Sodium Chloride/ Sterile Water (Sodium Chloride 23.4% Inj/Sterile Water For Inj ) 1,009.625 ml @ 15 mls/hr Q24H IV Last administered on 10/05/16 08:27; Start 09/28/16 at 17:00; Stop 10/06/16 at 13:25; Status DC Miscellaneous Information SPECIFIC LAB TO BE ... ONCE ONCE .XX ; Start 10/01 at 23:45; Stop 10/01/16 at 23:46; Status Cancel Phenol (Chloraseptic Boyd) 2 spray Q2H PRN OROPHARYNG sore throat; Start 09/30 at 10:00 Diatrizoate Meglum/ Diatrizoate Sod 18 ml 18 ml ONCE ONCE PO Last administered on 09/30/16 12:55; Start 09/30/16 at 11:30; Stop 09/30/16 at 11:31 ; Status DC Micafungin Sodium 100 mg/Sodium Chloride 100 ml @ 100 mls/hr Q24H IV Last administered on 10/06/16 12:46; Start 09/30/16 at 13:00 Linezolid (Zyvox 600 Mg Premix) 300 ml @ 300 mls/hr Q12H IV Last administered on 10/06/16 23:44; Start 09/30/16 at 12:00 Iohexol 97 ml 97 ml STK-MED ONCE IV ; Start 09/30/16 at 19:59; Stop 09/30/16 at 20:00; Status DC Magnesium Chloride/Calcium Chloride/ Multivitamins/ Folic Acid/ Famotidine/ Insulin Human Regular/Amino Acids/Dextrose (Magnesium Chloride Inj/ Calcium Chloride Inj/Mvi-12 Inj/ Folvite Inj/ Pepcid Inj/ NovoLIN R (IV INFUSION)/ Clinimix ) 2,026.0937 ml @ 83 mls/hr Q24H IV-CENTRAL Last administered on 10/03/16 20:00; Start 10/01/16 at 20:00; Stop 10/04/16 at 13:48; Status DC Miscellaneous Medication (ASP Crit: Necrotizing pancreatitis) 1 UNSCH X1 PRN .XX PHARMACY DOCUMENTATION; Start 10/01/16 at 09:15; Stop 10/02/16 at 09:14; Status DC Miscellaneous Medication ([facility] [place]) 1 UNSCH X1 PRN XX PHARMACY DOCUMENTATION; Start 10/01/16 at 09:15; Stop 10/02/16 at 09:14; Status DC Miscellaneous Medication 1 1 UNSCH X1 PRN XX PHARMACY DOCUMENTATION; Start at 09:15; Stop 10/02/16 at 09:14; Status DC Meropenem/Sodium Chloride (Merrem Inj/NS Inj) 100 ml @ 200 mls/hr Q8H IV Last administered on 10/07/16 01:40; Start 10/01/16 at 10:00 Sodium Chloride (NS Flush) See Protocol DAILY IV FLUSH Last administered on 08:31; Start 10/02/16 at 09:00 Sodium Chloride (NS Flush) See Protocol UNSCH PRN IV FLUSH SEE PROTOCOL TABLE; Start 10/01/16 at 17:15 Heparin Sodium (Porcine) (Heparin Central Flush) See Protocol DAILY IV FLUSH Last administered on 10/07/16 09:34; Start 10/02/16 at 09:00 Heparin Sodium (Porcine) (Heparin Central Flush) See Protocol UNSCH PRN IV FLUSH SEE PROTOCOL TABLE; Start 10/01/16 at 17:15 Sodium Chloride UNSCH PRN IV FLUSH SEE PROTOCOL TABLE; Start 10/01/16 at 17:15 Magnesium Chloride/ Multivitamins/ Folic Acid/ Famotidine/ Insulin Human Regular /Amino Acids/Dextrose (Magnesium Chloride Inj/ Mvi-12 Inj/ Folvite Inj/ Pepcid Inj/ NovoLIN R (IV INFUSION)/ Clinimix 4.25/25) 2,019.4761 ml @ 83 mls/hr Q24H IV-CENTRAL Last administered on 10/05/16 20:00; Start 10/04/16 at 20:00; Stop 10/06/16 at 13:28; Status DC Diphenhydramine HCl 25 mg 25 mg Q8HR PRN IV PUSH ITCHING Last administered on 09:34; Start 10/05/16 at 11:30 Sodium Chloride 1,000 ml @ 60 mls/hr [id number] ONCE IV Last administered on 10/06 09:45; Start 10/06/16 at 09:00; Stop 10/07/16 at 01:39; Status DC Multivitamins 10 ml/Folic Acid 1 mg/Famotidine 40 mg/Insulin Human Regular 20 units/ Amino Acids/ Electrolytes/ Dextrose 2,014.4 ml @ 83 mls/hr Q24H IV- CENTRAL Last administered on 10/06/16 21:22; Start 10/06/16 at 20:00 Sodium Chloride/ Sterile Water (Sodium Chloride 23.4% Inj/Sterile Water For Inj ) 1,009.625 ml @ 15 mls/hr Q24H IV ; Start 10/06/16 at 13:30 A/P Assessment and Plan A/P 1. Pancreatic Abscess: recent "pancreas surgery" at by Dr. Mathias approx 2 wks ago for pseudocyst. 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 Patient is sp exploratory laparotomy, irrigation and drainage of pancreatic abscess. Management as per general surgery. continue with pain control- Follow-up upper GI series shows suspected gastric perforation at the distal inferior stomach. however repeated upper GI series with no leak- started on sips of clear liquid- continue TPN- continue Micafungin, Meropenem and Zyvox- monitor CBC. ID following. repeated blood cultures negative so far. 2. Hypercalcemia: will adjust the supplementation through TPN- continue IV fluid- will monitor 3. Leukocytosis: improving. continue antibiotics as noted above- monitor CBC. ID following. 4. Alcohol Abuse: reports h/o alcohol abuse, however states he quit. Continue to monitor for possible withdrawal. 5. COPD: Chronic Respiratory Failure. Stable. Resumed home MDI/Neb. continue O2 to keep o2 sat more than 92%. 6. DM: Sliding scale w/ Accu-Cheks. Hold Metformin. Will continue insulin Levemir and regular in the TPN. 7. HTN: Improving continue clonidine patch to TTS 3. 8-hypophosphatemia.; adjust through TPN- will monitor DVT prophylaxis with subq Lovenox. continue PT. Rick Rahman MD Oct 07, 2016 10:11
[2016-10-07] MEDS: SODIUM CHLORIDE 23.4% INJ 38.5 MEQ in WATER STERILE FOR INJ 1,000 ML IV SCH (13:30)
[2016-10-07] MEDS: LINEZOLID 600 MG PREMIX 300 ML IV SCH (14:46)
[2016-10-07] MEDS: MICAFUNGIN INJ 100 MG in SODIUM CHLORIDE 0.9% INJ 100 ML IV SCH (14:46)
--- NOTE | 2016-10-07 16:52 | HHI.PR ---
Subjective Subjective Notes Resting in bed No acute events overnight Objective Vitals/I&O Vital Signs Date Time Temp Pulse Resp B/P Pulse Ox O2 Delivery O2 Flow Rate FiO2 10/07/16 12:00 98.4 95 18 146/83 98 10/05/16 08:30 Room Air Labs Laboratory Tests Test 10/07/16 05:05 Sodium Level 141 Potassium Level 3.8 Chloride Level 111 Carbon Dioxide Level 23.5 Anion Gap 7 Blood Urea Nitrogen 25 Creatinine 0.68 Estimat Glomerular Filtration 141 Rate Random Glucose 99 Calcium Level 10.8 Cardiovascular: Regular Lungs: Clear Abdomen: Non-distended, Non-tender, Other (retention sutures in place) Extremities: No edema Narrative Exam NGT removed EDER drain removed A/P Assessment and Plan 66 year old male with pancreatic abscess s/p I&D pancreatis abscess with pancreatic necrosectomy -Continue sips of clear liquids -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
--- NOTE | 2016-10-07 17:07 | HHI.IDPN ---
Note Infectious Disease Note Patient without complaints. Feels gradually better. No nausea. On TPN. Taking clear liquids. Afebrile. Presented to [facility] on September 16 with abdominal pain and also nausea and vomiting. Post irrigation and debridement of pancreatic abscess which was a large abscess and also pancreatic necrosectomy. 2nd surgery for same. PAST MEDICAL HISTORY: 1. Hepatitis C. 2. COPD. 3. Diabetes mellitus. 4. Alcohol abuse. 5. Congestive heart failure. 6. COPD. 7. History of appendectomy. 8. Patient underwent pancreatic necrosectomy on August 26, 2016. ALLERGIES: PENICILLIN. MEDICATIONS: 1. Ertapenem. 2. Micafungin. 3. Zyvox. OBJECTIVE: Vital Signs Date Time Temp Pulse Resp B/P Pulse Ox O2 Delivery O2 Flow Rate FiO2 10/07/16 12:00 98.4 95 18 146/83 98 10/07/16 08:10 18 10/07/16 08:00 97.8 86 18 123/73 100 10/07/16 07:30 18 10/07/16 07:20 18 10/07/16 05:11 18 10/07/16 04:51 99.0 89 17 150/84 94 10/07/16 00:28 98.7 84 17 129/66 97 10/06/16 21:24 16 10/06/16 20:00 98.1 70 17 137/73 95 10/06/16 20:00 16 10/06/16 10/06/16 10/07/16 15:00 23:00 07:00 Intake Total 320 ml 1197 ml 1278 ml Output Total 375 ml 1100 ml 700 ml Balance -55 ml 97 ml 578 ml Intake Oral 320 ml 240 ml 280 ml IV Total 476 ml 488 ml TPN/PPN 415 ml 443 ml Lipid 66 ml 67 ml Output Urine Total 375 ml 1100 ml 700 ml # Voids 1 # Bowel Movements 1 1 Laboratory Tests Test 10/06/16 03:52 White Blood Count 17.9 TH/MM3 Red Blood Count 3.03 MIL/MM3 Hemoglobin 7.7 GM/DL Hematocrit 26.8 % Mean Corpuscular Volume 88.4 FL Mean Corpuscular Hemoglobin 25.4 PG Mean Corpuscular Hemoglobin 28.7 % Concent Red Cell Distribution Width 18.3 % Platelet Count 293 TH/MM3 Mean Platelet Volume 11.1 FL Neutrophils (%) (Auto) 72.8 % Lymphocytes (%) (Auto) 11.6 % Monocytes (%) (Auto) 11.2 % Eosinophils (%) (Auto) 4.1 % Basophils (%) (Auto) 0.3 % Neutrophils # (Auto) 13.1 TH/MM3 Lymphocytes # (Auto) 2.1 TH/MM3 Monocytes # (Auto) 2.0 TH/MM3 Eosinophils # (Auto) 0.7 TH/MM3 Basophils # (Auto) 0.0 TH/MM3 CBC Comment AUTO DIFF Differential Comment AUTO DIFF CONFIRMED Platelet Estimate NORMAL Platelet Morphology Comment NORMAL Acanthocytes OCC Keratocytes OCC Laboratory Tests Test 10/06/16 10/07/16 06:08 05:05 Sodium Level 138 MEQ/L 141 MEQ/L Potassium Level 3.7 MEQ/L 3.8 MEQ/L Chloride Level 107 MEQ/L 111 MEQ/L Carbon Dioxide Level 23.7 MEQ/L 23.5 MEQ/L Anion Gap 7 MEQ/L 7 MEQ/L Blood Urea Nitrogen 27 MG/DL 25 MG/DL Creatinine 0.76 MG/DL 0.68 MG/DL Estimat Glomerular Filtration 124 ML/MIN 141 ML/MIN Rate Random Glucose 100 MG/DL 99 MG/DL Calcium Level 11.0 MG/DL 10.8 MG/DL Phosphorus Level 1.9 MG/DL IMAGING: Abdomen CT 10/03/16 1526 Signed Impressions: Service Date/Time: Monday, October 03, 2016 15:30 - CONCLUSION: 1. Small residual abscess anterior to the second portion of the duodenum in somewhat of a precarious place to drain percutaneously. There is no obvious extravasation of contrast into this. 2. Nasogastric tube was repositioned into the stomach. Kermit Rollins MD FACR Upper GI Series 10/03/16 0000 Signed Impressions: Service Date/Time: Monday, October 03, 2016 15:01 - CONCLUSION: I see no obvious leak however the examination is limited. Bulk of the Gastrografin tries to reflux back into the esophagus. Kermit Rollins MD FACR Chest X-Ray 10/01/16 0000 Signed Impressions: Service Date/Time: Saturday, October 01, 2016 17:03 - CONCLUSION: 1. Left- sided PICC line has its tip in the superior vena cava in good position. 2. Perihilar atelectasis is stable. Adiel Noland MD Abdomen/Pelvis CT 09/30/16 0000 Signed Impressions: Service Date/Time: Friday, September 30, 2016 18:41 - CONCLUSION: 1. Multiple fluid collections seen associated with the pancreas and the root of the mesentery. The fluid collection associated with the pancreatic tail has increased in size from the prior study while the remaining collections are essentially stable. Hubert Rodrigues Jr., MD Upper GI Series 09/26/16 0600 Signed Impressions: Service Date/Time: Monday, September 26, 2016 08:53 - CONCLUSION: Suspected gastric perforation at the inferior distal aspect of the stomach with a collection seen inferior to the distal stomach and anterior to the duodenum. Mason Monge MD Abdomen/Pelvis CT 09/24/16 0000 Signed Impressions: Service Date/Time: Saturday, September 24, 2016 06:57 - CONCLUSION: 1. The peripancreatic fluid collections adjacent to the tail the pancreas and pancreatic head have decreased in size, as above. Similar to prior examination , the collection adjacent to the pancreatic head contains air and thick fluid like material. 2. There is left lower lobe collapse/atelectasis that is new since the prior CT. Mason Ceja MD PHYSICAL EXAMINATION: GENERAL: No acute distress. Awake alert and oriented. HEENT: The sclerae are pale. Oropharynx with no visible lesions. NECK: Supple without adenopathy. LUNGS: Decreased breath sounds. HEART: Regular rate and rhythm. NL S1S2. ABDOMEN: Bowel sounds diminished. soft, Non tender. EXTREMITIES: No clubbing or cyanosis or edema. SKIN: No rash. NEUROLOGIC: Alert and oriented. No gross focal findings. PSYCHIATRIC: Calm and cooperative. IMPRESSION: 1. Pancreatic abscess. Status post drainage and pancreatic necrosectomy. (Wound culture has E. coli R to Levaquin. Also Lou. ) Recurrent abdominal fluid collections. Fluid collection now residual. 2. Leukocytosis. Probable related to intraabdominal infection. 3. Penicillin allergy. RECOMMENDATIONS: 1. Continue Zyvox. 2. Continue Micafungin. 3. Continue Ertapenem - E coli resistant and allergy to Penicillin. 4. Monitor white blood cell count. Antibiotic taper with further decrease in WBC. Maxime Hernandez MD Oct 07, 2016 17:07
[2016-10-07] MEDS: [UNRECOGNIZED DRUG - OTHER] IV-CENTRAL SCH ×5 (20:14)
[2016-10-07] MEDS: MULTIVITAMIN IV-CENTRAL SCH ×5 (20:14)
[2016-10-07] MEDS: FAMOTIDINE IV-CENTRAL SCH ×5 (20:14)
[2016-10-07] MEDS: FOLIC ACID IV-CENTRAL SCH ×5 (20:14)
[2016-10-07] MEDS: ENOXAPARIN SODIUM 40 MG/0.4 ML SYRINGE SQ SCH (20:15)
[2016-10-07] MEDS: FAT EMULSION 20% INJ 250 ML (@10 mls/hr) IV-CENTRAL SCH (20:16)
[2016-10-08] VITALS (7 sets, daily range): BP systolic 124–167; BP diastolic 69–82; PULSE 81–91; RESP 18–24; TEMP 97.4–99; O2SAT 96–98
[2016-10-08] MEDS: MEROPENEM INJ 1,000 MG in SODIUM CHLORIDE 0.9% INJ 100 ML IV SCH ×3 (03:36→16:41)
[2016-10-08] MEDS: LINEZOLID 600 MG PREMIX 300 ML IV SCH ×2 (03:38→12:09)
[2016-10-08] MEDS: PCA - TOTAL MG MORPHINE DELIVERED PER SHIFT SCH ×3 (06:00→22:00)
[2016-10-08] MEDS: INSULIN ASPART SUPPLEMENTAL SCALE SQ SCH ×4 (06:00→16:46)
[2016-10-08 07:55] LABS: AUTOMATED NEUTROPHIL # 10.5 TH/MM3 (1.8-7.7); BASOPHIL # 0.2 TH/MM3 (0-0.2); BASOPHIL % 1.1 % (0.0-2.0); EOSINOPHIL # 0.6 TH/MM3 (0-0.4); EOSINOPHIL % 4.1 % (0.0-4.0); HEMATOCRIT 22.9 % (39.0-51.0); HEMO FLAGS DIFF FINAL; LYMPH % 14.5 % (9.0-44.0); LYMPHOCYTE # 2.2 TH/MM3 (1.0-4.8); MEAN CORPUSCULAR HEMOGLOBIN 23.5 PG (27.0-34.0); MEAN CORPUSCULAR HGB CONC 31.3 % (32.0-36.0); MONO % 10.9 % (0.0-8.0); NEUT % 69.4 % (16.0-70.0); PLATELET COUNT 239 TH/MM3 (150-450); RED BLOOD COUNT 3.05 MIL/MM3 (4.50-5.90); RED CELL DISTRIBUTION WIDTH 17.4 % (11.6-17.2); WHITE BLOOD COUNT 15.1 TH/MM3 (4.0-11.0)
[2016-10-08 08:14] LABS: BICARBONATE 23.6 MEQ/L (21.0-32.0)
[2016-10-08] MEDS: BUDESONIDE-FORMOTEROL 160/4.5 MCG INHALER INH SCH ×2 (09:00→19:49)
[2016-10-08] MEDS: DOCUSATE SODIUM 50 MG/SENNA 8.6 MG TAB PO SCH ×2 (09:16→19:48)
[2016-10-08] MEDS: ROFLUMILAST 500 MCG TAB PO SCH (09:16)
[2016-10-08] MEDS: FOLIC ACID 1 MG TAB PO SCH (09:17)
[2016-10-08] MEDS: THIAMINE HCL 100 MG TAB PO SCH (09:17)
[2016-10-08] MEDS: GABAPENTIN 300 MG CAP PO SCH ×3 (09:17→17:37)
[2016-10-08] MEDS: INSULIN DETEMIR 100 UNITS/ML VIAL SQ SCH ×2 (09:18→19:48)
[2016-10-08] MEDS: SODIUM CHLORIDE 0.9% FLUSH 10 ML FLUSH IV FLUSH SCH ×3 (09:22→19:48)
--- NOTE | 2016-10-08 09:35 | HHI.PR ---
Subjective Remarks resting comfortably with no distress. no new complaints. pain is controlled. no nausea or vomiting. afebrile. Objective Vitals Vital Signs Date Time Temp Pulse Resp B/P Pulse Ox O2 Delivery O2 Flow Rate FiO2 10/08/16 08:00 98.6 87 20 151/82 98 10/08/16 06:00 16 10/08/16 04:00 99.0 84 22 147/69 98 10/08/16 00:00 98.7 87 22 124/69 97 10/07/16 22:00 16 10/07/16 20:15 16 10/07/16 20:00 99.7 89 22 134/70 98 10/07/16 17:28 98 Nasal Cannula 2.00 10/07/16 16:00 98.6 89 18 127/82 98 10/07/16 12:00 98.4 95 18 146/83 98 I/O 10/07/16 10/07/16 10/07/16 10/08/16 10/08/16 10/08/16 07:00 15:00 23:00 07:00 15:00 23:00 Intake Total 1278 ml 1810 ml 1958 ml 120 ml Output Total 700 ml 800 ml Balance 578 ml 1810 ml 1158 ml 120 ml Intake Oral 280 ml 240 ml 320 ml 120 ml IV Total 488 ml 330 ml 754 ml TPN/PPN 443 ml 1218 ml 787 ml Lipid 67 ml 22 ml 97 ml Output Urine Total 700 ml 800 ml # Voids 4 1 # Bowel Movements 1 1 0 Result Diagram: 10/08/16 0730 10/08/16 0730 Imaging Last Impressions Abdomen CT 10/03/16 1526 Signed Impressions: Service Date/Time: Monday, October 03, 2016 15:30 - CONCLUSION: 1. Small residual abscess anterior to the second portion of the duodenum in somewhat of a precarious place to drain percutaneously. There is no obvious extravasation of contrast into this. 2. Nasogastric tube was repositioned into the stomach. Kermit Rollins MD FACR Upper GI Series 10/03/16 0000 Signed Impressions: Service Date/Time: Monday, October 03, 2016 15:01 - CONCLUSION: I see no obvious leak however the examination is limited. Bulk of the Gastrografin tries to reflux back into the esophagus. Kermit Rollins MD FACR Chest X-Ray 10/01/16 0000 Signed Impressions: Service Date/Time: Saturday, October 01, 2016 17:03 - CONCLUSION: 1. Left- sided PICC line has its tip in the superior vena cava in good position. 2. Perihilar atelectasis is stable. Adiel Noland MD Abdomen/Pelvis CT 09/30/16 0000 Signed Impressions: Service Date/Time: Friday, September 30, 2016 18:41 - CONCLUSION: 1. Multiple fluid collections seen associated with the pancreas and the root of the mesentery. The fluid collection associated with the pancreatic tail has increased in size from the prior study while the remaining collections are essentially stable. Hubert Rodrigues Jr., MD Objective Remarks GENERAL: looks fairly comfortable. CARDIOVASCULAR: Regular rate and irregular rhythm without murmurs, gallops, or rubs. RESPIRATORY: Clear to auscultation. Breath sounds equal bilaterally. No wheezes , rales, or rhonchi. GASTROINTESTINAL: Abdomen soft, non-tender, nondistended. drain in place. MUSCULOSKELETAL: Extremities without clubbing, cyanosis, or edema. NEURO: Alert & Oriented x4 to person, place, time, situation. Moves all ext x4 Procedures Right IJ central line sp Exploratory laparotomy, irrigation and debridement of peripancreatic abscess and necrosectomy PICC line placement Medications and IVs Current Medications Ondansetron HCl (Zofran Inj) 4 mg ONCE ONCE IVP Last administered on 09/16/16 19:48; Start 09/16/16 at 19:00; Stop 09/16/16 at 19:01; Status DC Sodium Chloride (NS Flush) 2 ml UNSCH PRN IV FLUSH FLUSH AFTER USING IV ACCESS Last administered on 09/16/16 19:48; Start 09/16/16 at 19:00; Stop 09/16/16 at 21: 05; Status DC Hydromorphone HCl 1 mg 1 mg ONCE ONCE IVS Last administered on 09/16/16 19:48 ; Start 09/16/16 at 19:00; Stop 09/16/16 at 19:01; Status DC Sodium Chloride 500 ml @ 500 mls/hr BOLUS ONCE IV Last administered on 19:47; Start 09/16/16 at 19:00; Stop 09/16/16 at 19:59; Status DC Aztreonam 2000 mg/ Sodium Chloride 100 ml @ 200 mls/hr ONCE STAT IV Last administered on 09/16/16 22:52; Start 09/16/16 at 20:25; Stop 09/16/16 at 20:54; Status DC Metronidazole 100 ml @ 100 mls/hr ONCE STAT IV Last administered on 09/16/16 21:57; Start 09/16/16 at 20:25; Stop 09/16/16 at 21:24; Status DC Ciprofloxacin/ Dextrose 200 ml @ 200 mls/hr Q12H IV Last administered on 10:59; Start 09/17/16 at 09:00; Stop 09/20/16 at 20:42; Status DC Metronidazole 100 ml @ 100 mls/hr Q8H IV Last administered on 09/20/16 11:39 ; Start 09/17/16 at 04:00; Stop 09/20/16 at 20:42; Status DC Sodium Chloride (NS 1000 ml Inj) 1,000 ml @ 125 mls/hr Q8H IV Last administered on 09/19/16 09:59; Start 09/16/16 at 20:54; Stop 09/19/16 at 20:15 ; Status DC Sodium Chloride (NS Flush) 2 ml UNSCH PRN IV FLUSH FLUSH AFTER USING IV ACCESS ; Start 09/16/16 at 21:00 Sodium Chloride (NS Flush) 2 ml BID IV FLUSH Last administered on 10/08/16 09: 22; Start 09/16/16 at 21:00 Ondansetron HCl (Zofran Inj) 4 mg Q6H PRN IVP NAUSEA OR VOMITING Last administered on 09/30/16 12:54; Start 09/16/16 at 21:00 Acetaminophen (Tylenol) 650 mg Q6H PRN PO FEVER; Start 09/16/16 at 21:00; Status Hold Morphine Sulfate (Morphine Inj) 2 mg Q3H PRN IV Pain 6-10 Last administered on 09/19/16 15:26; Start 09/16/16 at 21:00; Stop 09/19/16 at 19:31; Status DC Oxycodone HCl (Roxicodone) 5 mg Q4H PRN PO PAIN SCALE 3 TO 5 Last administered on 09/16/16 22:52; Start 09/16/16 at 21:00; Status Hold Senna/Docusate Sodium (Fátima-Colace) 1 tab BID PO Last administered on 10/08/16 09:16; Start 09/16/16 at 21:00 Magnesium Hydroxide (Milk Of Magnesia Liq) 30 ml Q12H PRN PO MILD - MODERATE CONSTIPATION; Start 09/16/16 at 21:00 Sennosides (Senokot) 17.2 mg Q12H PRN PO MODERATE - SEVERE CONSTIPATION; Start 09/16/16 at 21:00 Bisacodyl (Dulcolax Supp) 10 mg DAILY PRN RECTAL SEVERE CONSITIPATION; Start at 21:00 Lactulose (Lactulose Liq) 30 ml DAILY PRN PO SEVERE CONSITIPATION; Start at 21:00 Hydromorphone HCl (Dilaudid Pf Inj) 1 mg ONCE ONCE IV PUSH ; Start 09/16/16 at 22:15; Stop 09/16/16 at 22:16; Status DC Albuterol Sulfate (Albuterol Neb) 2.5 mg QID NEB PRN NEB SHORTNESS OF BREATH Last administered on 09/27/16 03:09; Start 09/17/16 at 02:15 Allopurinol (Zyloprim) 300 mg DAILY PO Last administered on 09/19/16 09:58; Start 09/17/16 at 09:00; Status Hold Amlodipine Besylate (Norvasc) 5 mg BID PO Last administered on 09/19/16 09:58 ; Start 09/17/16 at 09:00; Status Hold Budesonide/ Formoterol Fumarate (Symbicort 160-4.5 Inh) 2 puff Q12HR INH Last administered on 10/08/16 09:00; Start 09/17/16 at 09:00 Clonidine (Catapres) 0.2 mg Q12HR PO Last administered on 09/19/16 09:58; Start 09/17/16 at 09:00; Status Hold Gabapentin (Neurontin) 600 mg TID PO Last administered on 10/08/16 09:17; Start 09/17/16 at 09:00 Roflumilast (Daliresp) 500 mcg DAILY PO Last administered on 10/08/16 09:16; Start 09/17/16 at 09:00 Thiamine HCl (Vitamin B1) 100 mg DAILY PO Last administered on 10/08/16 09:17; Start 09/17/16 at 09:00 Zolpidem Tartrate (Ambien) 5 mg HS PRN PO insomnia Last administered on 22:57; Start 09/17/16 at 02:15 Folic Acid (Folate) 1 mg DAILY PO Last administered on 10/08/16 09:17; Start at 09:00 Amylase/Lipase/ Protease (Creon 24-76-120) 2 cap TID PO Last administered on 17:07; Start 09/17/16 at 13:00; Status Hold Iohexol 98 ml 98 ml STK-MED ONCE IV Last administered on 09/17/16 15:40; Start 09/17/16 at 15:40; Stop 09/17/16 at 15:41; Status DC Lactated Ringer's 1,000 ml @ 30 mls/hr Q24H PRN IV SEE LABEL COMMENTS; Start at 22:45; Stop 09/19/16 at 19:23; Status DC Sodium Chloride (NS 500 ml Inj) 500 ml @ 30 mls/hr [id number] PRN IV SEE LABEL COMMENTS; Start 09/18/16 at 22:45; Stop 09/19/16 at 19:23; Status DC Metoprolol Tartrate (Lopressor) 25 mg COMPUTER PROGRAMMING MANAGER PRN PO SEE LABEL COMMENTS; Start 09/18/16 at 22:45; Stop 09/21/16 at 22:44; Status DC Povidone Iodine (Betadine 5% Antisepsis Kit) 1 applic COMPUTER PROGRAMMING MANAGER PRN EACH NARE SEE LABEL COMMENTS; Start 09/18/16 at 22:45; Stop 09/21/16 at 22:44; Status DC Chlorhexidine Gluconate (Chlorhexidine 2% Cloth) 3 pack COMPUTER PROGRAMMING MANAGER PRN TOPICAL SEE LABEL COMMENTS; Start 09/18/16 at 22:45; Stop 09/21/16 at 22:44; Status DC Insulin Human Regular See Protocol Table ... COMPUTER PROGRAMMING MANAGER PRN SQ SEE PROTOCOL TABLE ; Start 09/18/16 at 22:45; Stop 09/21/16 at 22:44; Status DC Potassium Chloride (KCl 10 Meq Premix Inj) 100 ml @ 100 mls/hr BOLUS ONCE IV Last administered on 09/19/16 11:22; Start 09/19/16 at 11:00; Stop 09/19/16 at 11:59; Status DC Midazolam HCl (Versed Inj) 2 mg STK-MED ONCE .ROUTE Last administered on 17:03; Start 09/19/16 at 17:02; Stop 09/19/16 at 17:03; Status DC Dextrose (D50w (Vial) Inj) 50 ml UNSCH PRN IV HYPOGLYCEMIA-SEE COMMENTS; Start 09/19/16 at 19:30; Status UNV Glucagon (Glucagon Inj) 1 mg UNSCH PRN OTHER HYPOGLYCEMIA-SEE COMMENTS; Start 09/19/16 at 19:30; Status UNV Insulin Aspart (NovoLOG SUPPLEMENTAL SCALE) 1 Q6HR SQ Last administered on 09/26 12:34; Start 09/20/16 at 00:00 Dextrose (D50w (Syr) Inj) 50 ml UNSCH PRN IV HYPOGLYCEMIA-SEE COMMENTS; Start 09/19/16 at 19:30 Glucagon (Glucagon Inj) 1 mg UNSCH PRN OTHER HYPOGLYCEMIA-SEE COMMENTS; Start 09/19/16 at 19:30 Labetalol HCl (Trandate Inj) 100 mg STK-MED ONCE .ROUTE Last administered on 19:30; Start 09/19/16 at 19:27; Stop 09/19/16 at 19:28; Status DC Morphine Sulfate (Morphine Inj) 3 mg Q1H PRN IV Pain 6-10 Last administered on 09/20/16 17:15; Start 09/19/16 at 20:00; Status Hold Fentanyl Citrate (fentaNYL INJ) 500 mcg STK-MED ONCE .ROUTE ; Start 09/19/16 at 19:33; Stop 09/19/16 at 19:34; Status DC Miscellaneous Information ALL NURSING DEPARTME... UNSCH PRN .XX SEE LABEL COMMENTS; Start 09/19/16 at 19:22; Stop 09/20/16 at 19:21; Status DC Multivitamins 10 ml/Folic Acid 1 mg/Insulin Human Regular 20 units/ Famotidine 40 mg/ Amino Acids/ Electrolytes/ Dextrose 2,014.4 ml @ 83 mls/hr Q24H IV- CENTRAL Last administered on 09/22/16 20:39; Start 09/20/16 at 20:00; Stop at 19:59; Status DC Fat Emulsion Intravenous 250 ml @ 10 mls/hr Q24H IV-CENTRAL Last administered on 10/07/16 20:16; Start 09/20/16 at 20:00 Potassium Chloride/Sodium Chloride (1/2 NS + KCl 20 Meq Inj) 1,000 ml @ As Directed STK-MED ONCE .ROUTE Last administered on 09/19/16 20:12; Start at 20:07; Stop 09/19/16 at 20:08; Status DC Morphine Sulfate (*morphine INJ PERIprocedure ONLY) 8 mg STK-MED ONCE .ROUTE Last administered on 09/19/16 20:09; Start 09/19/16 at 20:08; Stop 09/19/16 at 20:09; Status DC Pantoprazole Sodium 40 mg 40 mg Q24H IV PUSH Last administered on 09/19/16 20: 35; Start 09/19/16 at 21:00; Stop 09/20/16 at 09:52; Status DC Potassium Chloride/Sodium Chloride 1,000 ml @ 125 mls/hr Q8H IV Last administered on 09/20/16 03:31; Start 09/19/16 at 20:30; Stop 09/20/16 at 09:52 ; Status DC Potassium Chloride 100 ml @ As Directed STK-MED ONCE .ROUTE ; Start 09/19/16 at 21:07; Stop 09/19/16 at 21:08; Status DC Potassium Chloride 100 ml @ 50 mls/hr Q2H IV Last administered on 09/19/16 23 :35; Start 09/19/16 at 23:00; Stop 09/20/16 at 02:59; Status DC Amino Acids/ Electrolytes/ Dextrose (Clinimix E 4.25/ 25) 1,000 ml @ 83 mls/hr Q12H3M IV-CENTRAL Last administered on 09/20/16 09:33; Start 09/20/16 at 10:00 ; Stop 09/20/16 at 22:02; Status DC Acetaminophen (Ofirmev Inj) 650 mg Q6HR PRN IV FEVER; Start 09/20/16 at 09:30 Labetalol HCl (Trandate Inj) 10 mg Q4H PRN IV PUSH SYS BP GREATER THAN 160 MMHG Last administered on 09/22/16 21:09; Start 09/20/16 at 09:30 Pantoprazole Sodium 40 mg 40 mg DAILY IV PUSH Last administered on 09/20/16 10 :59; Start 09/20/16 at 10:00; Stop 09/20/16 at 14:50; Status DC Sodium Chloride 1,000 ml @ 40 mls/hr Q24H IV Last administered on 09/24/16 08 :28; Start 09/20/16 at 10:00; Stop 09/24/16 at 15:18; Status DC Magnesium Sulfate/ Dextrose (Magnesium Sulfate 1 Gm Premix) 100 ml @ 100 mls/ hr Q1H IV Last administered on 09/20/16 11:39; Start 09/20/16 at 10:00; Stop 09/20/16 at 11:59; Status DC Pantoprazole Sodium (Protonix Inj) 40 mg Q24H IV PUSH Last administered on 09/23 11:48; Start 09/20/16 at 11:30; Stop 09/24/16 at 08:32; Status DC Naloxone HCl (Narcan Inj) 0.4 mg UNSCH PRN IV RESPIRATORY RATE LESS THAN 10; Start 09/20/16 at 14:45 Morphine Sulfate (Morphine 1 Mg/ ml ENVIRONMENTAL INSPECTOR) 30 mg UNSCH IV Last administered on 07:20; Start 09/20/16 at 14:45 ENVIRONMENTAL INSPECTOR Dosage Infused (Pha) 1 1 Q8HR .XX Last administered on 10/08/16 06:00; Start 09/20/16 at 22:00 Magnesium Sulfate/ Dextrose 100 ml @ 100 mls/hr Q1H IV Last administered on 23:49; Start 09/20/16 at 20:00; Stop 09/20/16 at 21:59; Status DC Fluconazole/ Sodium Chloride 100 ml @ 100 mls/hr Q24H IV Last administered on 09/29/16 22:10; Start 09/20/16 at 22:00; Stop 09/30/16 at 11:44; Status DC Piperacillin Sod/ Tazobactam Sod 100 ml @ 200 mls/hr Q6H IV ; Start 09/20/16 at 20:45; Stop 09/20/16 at 20:47; Status DC Ciprofloxacin/ Dextrose 200 ml @ 200 mls/hr Q12H IV Last administered on 11:48; Start 09/20/16 at 23:00; Stop 09/23/16 at 12:10; Status DC Metronidazole (Flagyl 500 Mg Inj) 100 ml @ 100 mls/hr Q6H IV Last administered on 09/29/16 10:17; Start 09/20/16 at 21:00; Stop 09/29/16 at 15:53 ; Status DC Insulin Detemir (Levemir Inj) 5 units Q12HR SQ Last administered on 10/08/16 09 :18; Start 09/21/16 at 09:00 Clonidine 1 patch 1 patch Q7D T-DERMAL Last administered on 09/21/16 01:17; Start 09/20/16 at 22:15; Stop 09/24/16 at 08:34; Status DC Potassium Phosphate 15 mmol/ Sodium Chloride 155 ml @ 38.75 mls/ hr ONCE ONCE IV Last administered on 09/21/16 08:54; Start 09/21/16 at 09:00; Stop at 12:59; Status DC Potassium Chloride (KCl 20 Meq Premix Inj) 100 ml @ 50 mls/hr Q2H IV Last administered on 09/21/16 09:50; Start 09/21/16 at 08:00; Stop 09/21/16 at 11:59 ; Status DC Enoxaparin Sodium 40 mg 40 mg Q24H SQ Last administered on 10/07/16 20:15; Start 09/21/16 at 20:00 Potassium Phosphate 15 mmol/ Sodium Chloride 155 ml @ 38.75 mls/ hr ONCE ONCE IV Last administered on 09/21/16 22:25; Start 09/21/16 at 20:00; Stop at 23:59; Status DC Potassium Chloride 100 ml @ 50 mls/hr Q2H IV Last administered on 09/22/16 16 :26; Start 09/22/16 at 12:00; Stop 09/22/16 at 15:59; Status DC Magnesium Sulfate/ Dextrose (Magnesium Sulfate 1 Gm Premix) 100 ml @ 100 mls/ hr ONCE ONCE IV Last administered on 09/22/16 14:24; Start 09/22/16 at 12:00 ; Stop 09/22/16 at 12:59; Status DC Enalaprilat 1.25 mg 1.25 mg Q6H PRN IV PUSH SYS BP GREATER THAN 160 MMHG Last administered on 09/27/16 13:20; Start 09/22/16 at 21:30 Sodium Chloride 11 meq/Sodium Acetate 59 meq/ Potassium Chloride 20 meq/ Potassium Phosphate 60 meq/ Magnesium Chloride 10 meq/ Calcium Chloride 9 meq/ Multivitamins 10 ml/Folic Acid 1 mg/Famotidine 40 mg/Insulin Human Regular 20 units/ Amino Acids/ Dextrose 2,081.9801 ml @ 83 mls/hr Q24H IV-CENTRAL Last administered on 09/24/16 21:45; Start 09/23/16 at 20:00; Stop 09/25/16 at 19:59 ; Status DC Aztreonam 2000 mg/ Sodium Chloride 100 ml @ 200 mls/hr Q8H IV ; Start 09/23/16 at 14:00; Stop 09/23/16 at 14:00; Status DC Azithromycin/ Sodium Chloride (Zithromax Inj/ NS 250 ml Inj) 250 ml @ 250 mls/ hr Q24H IV Last administered on 09/28/16 14:52; Start 09/23/16 at 13:00; Stop 09/29/16 at 09:28; Status DC Miscellaneous Medication (ASP Crit: Doc allergy to Penicillin/ Cephalosp) 1 UNSCH X1 PRN .XX PHARMACY DOCUMENTATION; Start 09/23/16 at 12:15; Stop at 12:15; Status DC Miscellaneous Medication (ASP Crit: Necrotizing pancreatitis) 1 UNSCH X1 PRN .XX PHARMACY DOCUMENTATION; Start 09/23/16 at 12:15; Stop 09/24/16 at 12:15; Status DC Miscellaneous Medication 1 1 UNSCH X1 PRN XX PHARMACY DOCUMENTATION; Start at 12:15; Stop 09/24/16 at 12:15; Status DC Ertapenem/Sodium Chloride (INVanz INJ/NS Inj) 100 ml @ 200 mls/hr Q24H IV Last administered on 09/24/16 15:33; Start 09/23/16 at 14:00; Stop 09/25/16 at 09:07; Status DC Miscellaneous Medication ([facility] [place] [facility]) 1 UNSCH X1 PRN XX PHARMACY DOCUMENTATION; Start 09/23/16 at 12:15; Stop 09/24/16 at 12:15; Status DC Propofol (Diprivan 200 Mg/20 ml Inj) 200 mg STK-MED ONCE IV ; Start 09/19/16 at 12:00; Stop 09/23/16 at 14:53; Status DC Phenylephrine HCl 1000 mcg 1,000 mcg STK-MED ONCE IV ; Start 09/19/16 at 12:00; Stop 09/23/16 at 14:53; Status DC Lactated Ringer's 1,000 ml @ As Directed STK-MED ONCE IV ; Start 09/19/16 at 12 :00; Stop 09/23/16 at 14:53; Status DC Sodium Chloride (NS 500 ml Inj) 500 ml @ As Directed STK-MED ONCE IV ; Start at 12:00; Stop 09/23/16 at 14:53; Status DC Iohexol (Omnipaque 350 Inj) 100 ml STK-MED ONCE IV Last administered on 06:59; Start 09/24/16 at 06:59; Stop 09/24/16 at 07:00; Status DC Clonidine 1 patch 1 patch Q7D T-DERMAL Last administered on 10/01/16 09:55; Start 09/24/16 at 11:00 Pharmacy Profile Note (Vancomycin Consult Pharmacy) 0 ml @ 0 mls/hr UNSCH OTHER ; Start 09/24/16 at 09:45; Stop 09/29/16 at 15:53; Status DC Miscellaneous Information 1 1 Q7D T-DERMAL Last administered on 10/01/16 09:56 ; Start 09/24/16 at 11:00 Vancomycin HCl/ Sodium Chloride (Vancomycin Inj/ NS 250 ml Inj) 262.5 ml @ 250 mls/hr Q12H IV Last administered on 09/26/16 01:06; Start 09/24/16 at 12:00; Stop 09/26/16 at 02:02; Status DC Miscellaneous Information SPECIFIC LAB TO BE DRAWN:VANCO TROUGH DATE TO... ONCE ONCE .XX Last administered on 09/25/16 23:45; Start 09/25/16 at 23:45; Stop 09/25/16 at 23:46; Status DC Potassium Phosphate 15 mmol/ Sodium Chloride 155 ml @ 38.75 mls/ hr ONCE ONCE IV Last administered on 09/24/16 17:23; Start 09/24/16 at 16:00; Stop at 19:59; Status DC Ertapenem/Sodium Chloride (INVanz INJ/NS Inj) 50 ml @ 200 mls/hr Q24H IV Last administered on 09/30/16 17:04; Start 09/25/16 at 16:00; Stop 10/01/16 at 09:11 ; Status DC Miscellaneous Medication PLEASE CONCENTRATE ALL... UNSCH OTHER ; Start 09/25/16 at 09:15 Sodium Acetate 59 meq/Potassium Chloride 20 meq/ Potassium Phosphate 90 meq/ Magnesium Chloride 10 meq/ Calcium Chloride 9 meq/ Multivitamins 10 ml/Folic Acid 1 mg/Famotidine 40 mg/Insulin Human Regular 20 units/ Amino Acids/ Dextrose 2,086.0482 ml @ 83 mls/hr Q24H IV-CENTRAL ; Start 09/25/16 at 09:30; Status Cancel Sodium Acetate 59 meq/Potassium Chloride 20 meq/ Potassium Phosphate 90 meq/ Magnesium Chloride 10 meq/ Calcium Chloride 9 meq/ Multivitamins 10 ml/Folic Acid 1 mg/Famotidine 40 mg/Insulin Human Regular 20 units/ Amino Acids/ Dextrose 2,086.0482 ml @ 83 mls/hr Q24H IV-CENTRAL Last administered on 20:35; Start 09/25/16 at 20:00; Stop 09/27/16 at 09:05; Status DC Vancomycin HCl/ Sodium Chloride (Vancomycin Inj/ NS 500 ml Inj) 515 ml @ 250 mls/hr Q12H IV Last administered on 09/29/16 12:06; Start 09/26/16 at 12:00; Stop 09/29/16 at 15:53; Status DC Miscellaneous Information SPECIFIC LAB TO BE AZUCENA... ONCE ONCE .XX ; Start 09/27 at 23:45; Stop 09/27/16 at 23:46; Status DC Diatrizoate Meglum/ Diatrizoate Sod 120 ml 120 ml STK-MED ONCE NG ; Start at 10:21; Stop 09/26/16 at 10:22; Status DC Potassium Acetate/ Potassium Phosphate/ Magnesium Chloride/Calcium Chloride/ Multivitamins/ Folic Acid/ Famotidine/ Insulin Human Regular/Amino Acids/ Dextrose (Potassium Acetate Inj/ Potassium Phosphate Inj/ Magnesium Chloride Inj / Calcium Chlor... 2,080.5937 ml @ 83 mls/hr Q24H IV-CENTRAL Last administered on 09/30/16 20:34; Start 09/27/16 at 20:00; Stop 10/01/16 at 09:06; Status DC Benzocaine/ Menthol 1 lozenge 1 lozenge UNSCH PRN BUCCAL sore throat; Start at 16:00 Sodium Chloride/ Sterile Water (Sodium Chloride 23.4% Inj/Sterile Water For Inj ) 1,009.625 ml @ 15 mls/hr Q24H IV Last administered on 10/05/16 08:27; Start 09/28/16 at 17:00; Stop 10/06/16 at 13:25; Status DC Miscellaneous Information SPECIFIC LAB TO BE AZUCENA... ONCE ONCE .XX ; Start 10/01 at 23:45; Stop 10/01/16 at 23:46; Status Cancel Phenol (Chloraseptic [place]) 2 spray Q2H PRN OROPHARYNG sore throat; Start 09/30 at 10:00 Diatrizoate Meglum/ Diatrizoate Sod 18 ml 18 ml ONCE ONCE PO Last administered on 09/30/16 12:55; Start 09/30/16 at 11:30; Stop 09/30/16 at 11:31 ; Status DC Micafungin Sodium 100 mg/Sodium Chloride 100 ml @ 100 mls/hr Q24H IV Last administered on 10/07/16 14:46; Start 09/30/16 at 13:00 Linezolid (Zyvox 600 Mg Premix) 300 ml @ 300 mls/hr Q12H IV Last administered on 10/08/16 03:38; Start 09/30/16 at 12:00 Iohexol 97 ml 97 ml STK-MED ONCE IV ; Start 09/30/16 at 19:59; Stop 09/30/16 at 20:00; Status DC Magnesium Chloride/Calcium Chloride/ Multivitamins/ Folic Acid/ Famotidine/ Insulin Human Regular/Amino Acids/Dextrose (Magnesium Chloride Inj/ Calcium Chloride Inj/Mvi-12 Inj/ Folvite Inj/ Pepcid Inj/ NovoLIN R (IV INFUSION)/ Clinimix .) 2,026.0937 ml @ 83 mls/hr Q24H IV-CENTRAL Last administered on 10/03/16 20:00; Start 10/01/16 at 20:00; Stop 10/04/16 at 13:48; Status DC Miscellaneous Medication (ASP Crit: Necrotizing pancreatitis) 1 UNSCH X1 PRN .XX PHARMACY DOCUMENTATION; Start 10/01/16 at 09:15; Stop 10/02/16 at 09:14; Status DC Miscellaneous Medication ([facility] [place] [facility]) 1 UNSCH X1 PRN XX PHARMACY DOCUMENTATION; Start 10/01/16 at 09:15; Stop 10/02/16 at 09:14; Status DC Miscellaneous Medication 1 1 UNSCH X1 PRN XX PHARMACY DOCUMENTATION; Start at 09:15; Stop 10/02/16 at 09:14; Status DC Meropenem/Sodium Chloride (Merrem Inj/NS Inj) 100 ml @ 200 mls/hr Q8H IV Last administered on 10/08/16 09:17; Start 10/01/16 at 10:00 Sodium Chloride (NS Flush) See Protocol DAILY IV FLUSH Last administered on 10/08 09:23; Start 10/02/16 at 09:00 Sodium Chloride (NS Flush) See Protocol UNSCH PRN IV FLUSH SEE PROTOCOL TABLE; Start 10/01/16 at 17:15 Heparin Sodium (Porcine) (Heparin Central Flush) See Protocol DAILY IV FLUSH Last administered on 10/08/16 09:16; Start 10/02/16 at 09:00 Heparin Sodium (Porcine) (Heparin Central Flush) See Protocol UNSCH PRN IV FLUSH SEE PROTOCOL TABLE; Start 10/01/16 at 17:15 Sodium Chloride UNSCH PRN IV FLUSH SEE PROTOCOL TABLE; Start 10/01/16 at 17:15 Magnesium Chloride/ Multivitamins/ Folic Acid/ Famotidine/ Insulin Human Regular /Amino Acids/Dextrose (Magnesium Chloride Inj/ Mvi-12 Inj/ Folvite Inj/ Pepcid Inj/ NovoLIN R (IV INFUSION)/ Clinimix 4.25) 2,019.4761 ml @ 83 mls/hr Q24H IV-CENTRAL Last administered on 10/05/16 20:00; Start 10/04/16 at 20:00; Stop 10/06/16 at 13:28; Status DC Diphenhydramine HCl 25 mg 25 mg Q8HR PRN IV PUSH ITCHING Last administered on 09:34; Start 10/05/16 at 11:30 Sodium Chloride 1,000 ml @ 60 mls/hr [id number] ONCE IV Last administered on 10/06 09:45; Start 10/06/16 at 09:00; Stop 10/07/16 at 01:39; Status DC Multivitamins 10 ml/Folic Acid 1 mg/Famotidine 40 mg/Insulin Human Regular 20 units/ Amino Acids/ Electrolytes/ Dextrose 2,014.4 ml @ 83 mls/hr Q24H IV- CENTRAL Last administered on 10/07/16 20:14; Start 10/06/16 at 20:00 Sodium Chloride 38.5 meq/Sterile Water 1,009.625 ml @ 15 mls/hr Q24H IV ; Start 10/06/16 at 13:30 Sodium Chloride (NS 1000 ml Inj) 1,000 ml @ 60 mls/hr [id number] ONCE IV Last administered on 10/07/16 14:47; Start 10/07/16 at 10:00; Stop 10/08/16 at 02:39 ; Status DC A/P Assessment and Plan A/P 1. Pancreatic Abscess: recent "pancreas surgery" at by Dr. Mathias approx [address] ago for pseudocyst. [address] Abd/Pelvis .1 x 7 cm abscess at site of previous pseudocyst on July 07, complex 7.3 x 3.8 presumed pseudocyst at aortic bifurcation, similar to July 07 images. Patient is sp exploratory laparotomy, irrigation and drainage of pancreatic abscess. Management as per general surgery. continue with pain control- Follow-up upper GI series shows suspected gastric perforation at the distal inferior stomach. however repeated upper GI series with no leak- started on sips of clear liquid- continue TPN- continue Micafungin, Meropenem and Zyvox- monitor CBC. ID following. repeated blood cultures negative so far. 2. Hypercalcemia:improved. will adjust the supplementation through TPN- - will monitor 3. Leukocytosis: improving. continue antibiotics as noted above- monitor CBC. ID following. 4. Alcohol Abuse: reports h/o alcohol abuse, however states he quit. Continue to monitor for possible withdrawal. 5. COPD: Chronic Respiratory Failure. Stable. Resumed home MDI/Neb. continue O2 to keep o2 sat more than 92%. 6. DM: Sliding scale w/ Accu-Cheks. Hold Metformin. Will continue insulin Levemir and regular in the TPN. 7. HTN: Improving continue clonidine patch to TTS 3. 8-hypophosphatemia.; replaced. 9- anemia - dilution from IV fluid?- will continue to monitor- DVT prophylaxis with subq Lovenox. continue PT. Rick Rahman MD Oct 08, 2016 09:35
[2016-10-08] MEDS: REMOVE OLD CATAPRES (CLONIDINE) PATCH T-DERMAL SCH (11:00)
[2016-10-08] MEDS: SODIUM CHLORIDE 23.4% INJ 38.5 MEQ in WATER STERILE FOR INJ 1,000 ML IV SCH ×2 (11:54→17:38)
[2016-10-08] MEDS: MICAFUNGIN INJ 100 MG in SODIUM CHLORIDE 0.9% INJ 100 ML IV SCH (12:08)
[2016-10-08] MEDS: cloNIDine HCL 0.3 MG/24 HR PATCH T-DERMAL SCH (12:10)
[2016-10-08] MEDS: MULTIVITAMIN IV-CENTRAL SCH ×5 (19:47)
[2016-10-08] MEDS: FAMOTIDINE IV-CENTRAL SCH ×5 (19:47)
[2016-10-08] MEDS: [UNRECOGNIZED DRUG - OTHER] IV-CENTRAL SCH ×5 (19:47)
[2016-10-08] MEDS: FOLIC ACID IV-CENTRAL SCH ×5 (19:47)
[2016-10-08] MEDS: FAT EMULSION 20% INJ 250 ML (@10 mls/hr) IV-CENTRAL SCH (19:47)
[2016-10-08] MEDS: ENOXAPARIN SODIUM 40 MG/0.4 ML SYRINGE SQ SCH (19:49)
[2016-10-09] VITALS: BP 134/70; PULSE 86; RESP 24; TEMP 98.3; O2SAT 99
[2016-10-09] MEDS: LINEZOLID 600 MG PREMIX 300 ML IV SCH ×3 (00:07→23:56)
[2016-10-09] MEDS: MEROPENEM INJ 1,000 MG in SODIUM CHLORIDE 0.9% INJ 100 ML IV SCH ×3 (02:50→17:16)
[2016-10-09 04:00] VITALS: BP 149/81; PULSE 85; RESP 22; TEMP 97.9; O2SAT 98
[2016-10-09] MEDS: PCA - TOTAL MG MORPHINE DELIVERED PER SHIFT SCH ×3 (04:58→22:00)
[2016-10-09] MEDS: INSULIN ASPART SUPPLEMENTAL SCALE SQ SCH ×5 (04:59→23:55)
[2016-10-09 08:00] VITALS: BP 167/77; PULSE 85; RESP 20; TEMP 97.9; O2SAT 98
[2016-10-09] MEDS: SODIUM CHLORIDE 0.9% FLUSH 10 ML FLUSH IV FLUSH SCH ×3 (09:00→20:10)
--- NOTE | 2016-10-09 09:29 | HHI.PR ---
Subjective Remarks in no acute distress. no abdominal pain or emesis. no fever. no new complaints. Objective Vitals Vital Signs Date Time Temp Pulse Resp B/P Pulse Ox O2 Delivery O2 Flow Rate FiO2 10/09/16 08:00 97.9 85 20 167/77 98 10/09/16 04:58 16 10/09/16 04:00 97.9 85 22 149/81 98 10/09/16 00:00 98.3 86 24 134/70 99 10/08/16 22:00 14 10/08/16 20:00 98.7 91 24 133/79 96 10/08/16 17:21 18 10/08/16 16:00 97.4 81 18 137/80 98 10/08/16 14:00 18 10/08/16 12:00 98.4 84 20 167/82 97 I/O 10/08/16 10/08/16 10/08/16 10/09/16 10/09/16 10/09/16 07:00 15:00 23:00 07:00 15:00 23:00 Intake Total 1958 ml 2483 ml 1373 ml 1480 ml 120 ml Output Total 800 ml 850 ml 300 ml 500 ml Balance 1158 ml 1633 ml 1073 ml 980 ml 120 ml Intake Oral 320 ml 1120 ml 320 ml 120 ml 120 ml IV Total 754 ml 631 ml 512 ml 513 ml TPN/PPN 787 ml 653 ml 483 ml 756 ml Lipid 97 ml 79 ml 58 ml 91 ml Output Urine Total 800 ml 600 ml 300 ml 500 ml Stool Total 250 ml # Bowel Movements 0 0 0 Result Diagram: 10/08/16 0730 10/08/16 0730 Imaging Last Impressions Abdomen CT 10/03/16 1526 Signed Impressions: Service Date/Time: Monday, October 03, 2016 15:30 - CONCLUSION: 1. Small residual abscess anterior to the second portion of the duodenum in somewhat of a precarious place to drain percutaneously. There is no obvious extravasation of contrast into this. 2. Nasogastric tube was repositioned into the stomach. Kermit Rollins MD FACR Upper GI Series 10/03/16 0000 Signed Impressions: Service Date/Time: Monday, October 03, 2016 15:01 - CONCLUSION: I see no obvious leak however the examination is limited. Bulk of the Gastrografin tries to reflux back into the esophagus. Kermit Rollins MD FACR Chest X-Ray 10/01/16 0000 Signed Impressions: Service Date/Time: Saturday, October 01, 2016 17:03 - CONCLUSION: 1. Left- sided PICC line has its tip in the superior vena cava in good position. 2. Perihilar atelectasis is stable. Adiel Noland MD Abdomen/Pelvis CT 09/30/16 0000 Signed Impressions: Service Date/Time: Friday, September 30, 2016 18:41 - CONCLUSION: 1. Multiple fluid collections seen associated with the pancreas and the root of the mesentery. The fluid collection associated with the pancreatic tail has increased in size from the prior study while the remaining collections are essentially stable. Hubert Rodrigues Jr., MD Objective Remarks GENERAL: looks fairly comfortable. CARDIOVASCULAR: Regular rate and irregular rhythm without murmurs, gallops, or rubs. RESPIRATORY: Clear to auscultation. Breath sounds equal bilaterally. No wheezes , rales, or rhonchi. GASTROINTESTINAL: Abdomen soft, non-tender, nondistended. drain in place. MUSCULOSKELETAL: Extremities without clubbing, cyanosis, or edema. NEURO: Alert & Oriented x4 to person, place, time, situation. Moves all ext x4 Procedures Right IJ central line sp Exploratory laparotomy, irrigation and debridement of peripancreatic abscess and necrosectomy PICC line placement Medications and IVs Current Medications Ondansetron HCl (Zofran Inj) 4 mg ONCE ONCE IVP Last administered on 09/16/16 19:48; Start 09/16/16 at 19:00; Stop 09/16/16 at 19:01; Status DC Sodium Chloride (NS Flush) 2 ml UNSCH PRN IV FLUSH FLUSH AFTER USING IV ACCESS Last administered on 09/16/16 19:48; Start 09/16/16 at 19:00; Stop 09/16/16 at 21: 05; Status DC Hydromorphone HCl 1 mg 1 mg ONCE ONCE IVS Last administered on 09/16/16 19:48 ; Start 09/16/16 at 19:00; Stop 09/16/16 at 19:01; Status DC Sodium Chloride 500 ml @ 500 mls/hr BOLUS ONCE IV Last administered on 19:47; Start 09/16/16 at 19:00; Stop 09/16/16 at 19:59; Status DC Aztreonam 2000 mg/ Sodium Chloride 100 ml @ 200 mls/hr ONCE STAT IV Last administered on 09/16/16 22:52; Start 09/16/16 at 20:25; Stop 09/16/16 at 20:54; Status DC Metronidazole 100 ml @ 100 mls/hr ONCE STAT IV Last administered on 09/16/16 21:57; Start 09/16/16 at 20:25; Stop 09/16/16 at 21:24; Status DC Ciprofloxacin/ Dextrose 200 ml @ 200 mls/hr Q12H IV Last administered on 10:59; Start 09/17/16 at 09:00; Stop 09/20/16 at 20:42; Status DC Metronidazole 100 ml @ 100 mls/hr Q8H IV Last administered on 09/20/16 11:39 ; Start 09/17/16 at 04:00; Stop 09/20/16 at 20:42; Status DC Sodium Chloride (NS 1000 ml Inj) 1,000 ml @ 125 mls/hr Q8H IV Last administered on 09/19/16 09:59; Start 09/16/16 at 20:54; Stop 09/19/16 at 20:15 ; Status DC Sodium Chloride (NS Flush) 2 ml UNSCH PRN IV FLUSH FLUSH AFTER USING IV ACCESS ; Start 09/16/16 at 21:00 Sodium Chloride (NS Flush) 2 ml BID IV FLUSH Last administered on 10/08/16 09: 22; Start 09/16/16 at 21:00 Ondansetron HCl (Zofran Inj) 4 mg Q6H PRN IVP NAUSEA OR VOMITING Last administered on 09/30/16 12:54; Start 09/16/16 at 21:00 Acetaminophen (Tylenol) 650 mg Q6H PRN PO FEVER; Start 09/16/16 at 21:00; Status Hold Morphine Sulfate (Morphine Inj) 2 mg Q3H PRN IV Pain 6-10 Last administered on 09/19/16 15:26; Start 09/16/16 at 21:00; Stop 09/19/16 at 19:31; Status DC Oxycodone HCl (Roxicodone) 5 mg Q4H PRN PO PAIN SCALE 3 TO 5 Last administered on 09/16/16 22:52; Start 09/16/16 at 21:00; Status Hold Senna/Docusate Sodium (Fátima-Colace) 1 tab BID PO Last administered on 10/08/16 09:16; Start 09/16/16 at 21:00 Magnesium Hydroxide (Milk Of Magnesia Liq) 30 ml Q12H PRN PO MILD - MODERATE CONSTIPATION; Start 09/16/16 at 21:00 Sennosides (Senokot) 17.2 mg Q12H PRN PO MODERATE - SEVERE CONSTIPATION; Start 09/16/16 at 21:00 Bisacodyl (Dulcolax Supp) 10 mg DAILY PRN RECTAL SEVERE CONSITIPATION; Start at 21:00 Lactulose (Lactulose Liq) 30 ml DAILY PRN PO SEVERE CONSITIPATION; Start at 21:00 Hydromorphone HCl (Dilaudid Pf Inj) 1 mg ONCE ONCE IV PUSH ; Start 09/16/16 at 22:15; Stop 09/16/16 at 22:16; Status DC Albuterol Sulfate (Albuterol Neb) 2.5 mg QID NEB PRN NEB SHORTNESS OF BREATH Last administered on 09/27/16 03:09; Start 09/17/16 at 02:15 Allopurinol (Zyloprim) 300 mg DAILY PO Last administered on 09/19/16 09:58; Start 09/17/16 at 09:00; Status Hold Amlodipine Besylate (Norvasc) 5 mg BID PO Last administered on 09/19/16 09:58 ; Start 09/17/16 at 09:00; Status Hold Budesonide/ Formoterol Fumarate (Symbicort 160-4.5 Inh) 2 puff Q12HR INH Last administered on 10/08/16 19:49; Start 09/17/16 at 09:00 Clonidine (Catapres) 0.2 mg Q12HR PO Last administered on 09/19/16 09:58; Start 09/17/16 at 09:00; Status Hold Gabapentin (Neurontin) 600 mg TID PO Last administered on 10/08/16 17:37; Start 09/17/16 at 09:00 Roflumilast (Daliresp) 500 mcg DAILY PO Last administered on 10/08/16 09:16; Start 09/17/16 at 09:00 Thiamine HCl (Vitamin B1) 100 mg DAILY PO Last administered on 10/08/16 09:17; Start 09/17/16 at 09:00 Zolpidem Tartrate (Ambien) 5 mg HS PRN PO insomnia Last administered on 22:57; Start 09/17/16 at 02:15 Folic Acid (Folate) 1 mg DAILY PO Last administered on 10/08/16 09:17; Start at 09:00 Amylase/Lipase/ Protease (Creon 24-76-120) 2 cap TID PO Last administered on 17:07; Start 09/17/16 at 13:00; Status Hold Iohexol 98 ml 98 ml STK-MED ONCE IV Last administered on 09/17/16 15:40; Start 09/17/16 at 15:40; Stop 09/17/16 at 15:41; Status DC Lactated Ringer's 1,000 ml @ 30 mls/hr Q24H PRN IV SEE LABEL COMMENTS; Start at 22:45; Stop 09/19/16 at 19:23; Status DC Sodium Chloride (NS 500 ml Inj) 500 ml @ 30 mls/hr [id number] PRN IV SEE LABEL COMMENTS; Start 09/18/16 at 22:45; Stop 09/19/16 at 19:23; Status DC Metoprolol Tartrate (Lopressor) 25 mg SURVEY COORDINATOR PRN PO SEE LABEL COMMENTS; Start 09/18/16 at 22:45; Stop 09/21/16 at 22:44; Status DC Povidone Iodine (Betadine 5% Antisepsis Kit) 1 applic SURVEY COORDINATOR PRN EACH NARE SEE LABEL COMMENTS; Start 09/18/16 at 22:45; Stop 09/21/16 at 22:44; Status DC Chlorhexidine Gluconate (Chlorhexidine 2% Cloth) 3 pack SURVEY COORDINATOR PRN TOPICAL SEE LABEL COMMENTS; Start 09/18/16 at 22:45; Stop 09/21/16 at 22:44; Status DC Insulin Human Regular See Protocol Table ... SURVEY COORDINATOR PRN SQ SEE PROTOCOL TABLE ; Start 09/18/16 at 22:45; Stop 09/21/16 at 22:44; Status DC Potassium Chloride (KCl 10 Meq Premix Inj) 100 ml @ 100 mls/hr BOLUS ONCE IV Last administered on 09/19/16 11:22; Start 09/19/16 at 11:00; Stop 09/19/16 at 11:59; Status DC Midazolam HCl (Versed Inj) 2 mg STK-MED ONCE .ROUTE Last administered on 17:03; Start 09/19/16 at 17:02; Stop 09/19/16 at 17:03; Status DC Dextrose (D50w (Vial) Inj) 50 ml UNSCH PRN IV HYPOGLYCEMIA-SEE COMMENTS; Start 09/19/16 at 19:30; Status UNV Glucagon (Glucagon Inj) 1 mg UNSCH PRN OTHER HYPOGLYCEMIA-SEE COMMENTS; Start 09/19/16 at 19:30; Status UNV Insulin Aspart (NovoLOG SUPPLEMENTAL SCALE) 1 Q6HR SQ Last administered on 09/26 12:34; Start 09/20/16 at 00:00 Dextrose (D50w (Syr) Inj) 50 ml UNSCH PRN IV HYPOGLYCEMIA-SEE COMMENTS; Start 09/19/16 at 19:30 Glucagon (Glucagon Inj) 1 mg UNSCH PRN OTHER HYPOGLYCEMIA-SEE COMMENTS; Start 09/19/16 at 19:30 Labetalol HCl (Trandate Inj) 100 mg STK-MED ONCE .ROUTE Last administered on 19:30; Start 09/19/16 at 19:27; Stop 09/19/16 at 19:28; Status DC Morphine Sulfate (Morphine Inj) 3 mg Q1H PRN IV Pain 6-10 Last administered on 09/20/16 17:15; Start 09/19/16 at 20:00; Status Hold Fentanyl Citrate (fentaNYL INJ) 500 mcg STK-MED ONCE .ROUTE ; Start 09/19/16 at 19:33; Stop 09/19/16 at 19:34; Status DC Miscellaneous Information ALL NURSING DEPARTME... UNSCH PRN .XX SEE LABEL COMMENTS; Start 09/19/16 at 19:22; Stop 09/20/16 at 19:21; Status DC Multivitamins 10 ml/Folic Acid 1 mg/Insulin Human Regular 20 units/ Famotidine 40 mg/ Amino Acids/ Electrolytes/ Dextrose 2,014.4 ml @ 83 mls/hr Q24H IV- CENTRAL Last administered on 09/22/16 20:39; Start 09/20/16 at 20:00; Stop at 19:59; Status DC Fat Emulsion Intravenous 250 ml @ 10 mls/hr Q24H IV-CENTRAL Last administered on 10/08/16 19:47; Start 09/20/16 at 20:00 Potassium Chloride/Sodium Chloride (1/2 NS + KCl 20 Meq Inj) 1,000 ml @ As Directed STK-MED ONCE .ROUTE Last administered on 09/19/16 20:12; Start at 20:07; Stop 09/19/16 at 20:08; Status DC Morphine Sulfate (*morphine INJ PERIprocedure ONLY) 8 mg STK-MED ONCE .ROUTE Last administered on 09/19/16 20:09; Start 09/19/16 at 20:08; Stop 09/19/16 at 20:09; Status DC Pantoprazole Sodium 40 mg 40 mg Q24H IV PUSH Last administered on 09/19/16 20: 35; Start 09/19/16 at 21:00; Stop 09/20/16 at 09:52; Status DC Potassium Chloride/Sodium Chloride 1,000 ml @ 125 mls/hr Q8H IV Last administered on 09/20/16 03:31; Start 09/19/16 at 20:30; Stop 09/20/16 at 09:52 ; Status DC Potassium Chloride 100 ml @ As Directed STK-MED ONCE .ROUTE ; Start 09/19/16 at 21:07; Stop 09/19/16 at 21:08; Status DC Potassium Chloride 100 ml @ 50 mls/hr Q2H IV Last administered on 09/19/16 23 :35; Start 09/19/16 at 23:00; Stop 09/20/16 at 02:59; Status DC Amino Acids/ Electrolytes/ Dextrose (Clinimix E 4.25/ 25) 1,000 ml @ 83 mls/hr Q12H3M IV-CENTRAL Last administered on 09/20/16 09:33; Start 09/20/16 at 10:00 ; Stop 09/20/16 at 22:02; Status DC Acetaminophen (Ofirmev Inj) 650 mg Q6HR PRN IV FEVER; Start 09/20/16 at 09:30 Labetalol HCl (Trandate Inj) 10 mg Q4H PRN IV PUSH SYS BP GREATER THAN 160 MMHG Last administered on 09/22/16 21:09; Start 09/20/16 at 09:30 Pantoprazole Sodium 40 mg 40 mg DAILY IV PUSH Last administered on 09/20/16 10 :59; Start 09/20/16 at 10:00; Stop 09/20/16 at 14:50; Status DC Sodium Chloride 1,000 ml @ 40 mls/hr Q24H IV Last administered on 09/24/16 08 :28; Start 09/20/16 at 10:00; Stop 09/24/16 at 15:18; Status DC Magnesium Sulfate/ Dextrose (Magnesium Sulfate 1 Gm Premix) 100 ml @ 100 mls/ hr Q1H IV Last administered on 09/20/16 11:39; Start 09/20/16 at 10:00; Stop 09/20/16 at 11:59; Status DC Pantoprazole Sodium (Protonix Inj) 40 mg Q24H IV PUSH Last administered on 09/23 11:48; Start 09/20/16 at 11:30; Stop 09/24/16 at 08:32; Status DC Naloxone HCl (Narcan Inj) 0.4 mg UNSCH PRN IV RESPIRATORY RATE LESS THAN 10; Start 09/20/16 at 14:45 Morphine Sulfate (Morphine 1 Mg/ ml SALES SUPPORT REP) 30 mg UNSCH IV Last administered on 07:20; Start 09/20/16 at 14:45 SALES SUPPORT REP Dosage Infused (Pha) 1 1 Q8HR .XX Last administered on 10/09/16 04:58; Start 09/20/16 at 22:00 Magnesium Sulfate/ Dextrose 100 ml @ 100 mls/hr Q1H IV Last administered on 23:49; Start 09/20/16 at 20:00; Stop 09/20/16 at 21:59; Status DC Fluconazole/ Sodium Chloride 100 ml @ 100 mls/hr Q24H IV Last administered on 09/29/16 22:10; Start 09/20/16 at 22:00; Stop 09/30/16 at 11:44; Status DC Piperacillin Sod/ Tazobactam Sod 100 ml @ 200 mls/hr Q6H IV ; Start 09/20/16 at 20:45; Stop 09/20/16 at 20:47; Status DC Ciprofloxacin/ Dextrose 200 ml @ 200 mls/hr Q12H IV Last administered on 11:48; Start 09/20/16 at 23:00; Stop 09/23/16 at 12:10; Status DC Metronidazole (Flagyl 500 Mg Inj) 100 ml @ 100 mls/hr Q6H IV Last administered on 09/29/16 10:17; Start 09/20/16 at 21:00; Stop 09/29/16 at 15:53 ; Status DC Insulin Detemir (Levemir Inj) 5 units Q12HR SQ Last administered on 10/08/16 19 :48; Start 09/21/16 at 09:00 Clonidine 1 patch 1 patch Q7D T-DERMAL Last administered on 09/21/16 01:17; Start 09/20/16 at 22:15; Stop 09/24/16 at 08:34; Status DC Potassium Phosphate 15 mmol/ Sodium Chloride 155 ml @ 38.75 mls/ hr ONCE ONCE IV Last administered on 09/21/16 08:54; Start 09/21/16 at 09:00; Stop at 12:59; Status DC Potassium Chloride (KCl 20 Meq Premix Inj) 100 ml @ 50 mls/hr Q2H IV Last administered on 09/21/16 09:50; Start 09/21/16 at 08:00; Stop 09/21/16 at 11:59 ; Status DC Enoxaparin Sodium 40 mg 40 mg Q24H SQ Last administered on 10/08/16 19:49; Start 09/21/16 at 20:00 Potassium Phosphate 15 mmol/ Sodium Chloride 155 ml @ 38.75 mls/ hr ONCE ONCE IV Last administered on 09/21/16 22:25; Start 09/21/16 at 20:00; Stop at 23:59; Status DC Potassium Chloride 100 ml @ 50 mls/hr Q2H IV Last administered on 09/22/16 16 :26; Start 09/22/16 at 12:00; Stop 09/22/16 at 15:59; Status DC Magnesium Sulfate/ Dextrose (Magnesium Sulfate 1 Gm Premix) 100 ml @ 100 mls/ hr ONCE ONCE IV Last administered on 09/22/16 14:24; Start 09/22/16 at 12:00 ; Stop 09/22/16 at 12:59; Status DC Enalaprilat 1.25 mg 1.25 mg Q6H PRN IV PUSH SYS BP GREATER THAN 160 MMHG Last administered on 09/27/16 13:20; Start 09/22/16 at 21:30 Sodium Chloride 11 meq/Sodium Acetate 59 meq/ Potassium Chloride 20 meq/ Potassium Phosphate 60 meq/ Magnesium Chloride 10 meq/ Calcium Chloride 9 meq/ Multivitamins 10 ml/Folic Acid 1 mg/Famotidine 40 mg/Insulin Human Regular 20 units/ Amino Acids/ Dextrose 2,081.9801 ml @ 83 mls/hr Q24H IV-CENTRAL Last administered on 09/24/16 21:45; Start 09/23/16 at 20:00; Stop 09/25/16 at 19:59 ; Status DC Aztreonam 2000 mg/ Sodium Chloride 100 ml @ 200 mls/hr Q8H IV ; Start 09/23/16 at 14:00; Stop 09/23/16 at 14:00; Status DC Azithromycin/ Sodium Chloride (Zithromax Inj/ NS 250 ml Inj) 250 ml @ 250 mls/ hr Q24H IV Last administered on 09/28/16 14:52; Start 09/23/16 at 13:00; Stop 09/29/16 at 09:28; Status DC Miscellaneous Medication (ASP Crit: Doc allergy to Penicillin/ Cephalosp) 1 UNSCH X1 PRN .XX PHARMACY DOCUMENTATION; Start 09/23/16 at 12:15; Stop at 12:15; Status DC Miscellaneous Medication (ASP Crit: Necrotizing pancreatitis) 1 UNSCH X1 PRN .XX PHARMACY DOCUMENTATION; Start 09/23/16 at 12:15; Stop 09/24/16 at 12:15; Status DC Miscellaneous Medication 1 1 UNSCH X1 PRN XX PHARMACY DOCUMENTATION; Start at 12:15; Stop 09/24/16 at 12:15; Status DC Ertapenem/Sodium Chloride (INVanz INJ/NS Inj) 100 ml @ 200 mls/hr Q24H IV Last administered on 09/24/16 15:33; Start 09/23/16 at 14:00; Stop 09/25/16 at 09:07; Status DC Miscellaneous Medication ([facility] 1 UNSCH X1 PRN XX PHARMACY DOCUMENTATION; Start 09/23/16 at 12:15; Stop 09/24/16 at 12:15; Status DC Propofol (Diprivan 200 Mg/20 ml Inj) 200 mg STK-MED ONCE IV ; Start 09/19/16 at 12:00; Stop 09/23/16 at 14:53; Status DC Phenylephrine HCl 1000 mcg 1,000 mcg STK-MED ONCE IV ; Start 09/19/16 at 12:00; Stop 09/23/16 at 14:53; Status DC Lactated Ringer's 1,000 ml @ As Directed STK-MED ONCE IV ; Start 09/19/16 at 12 :00; Stop 09/23/16 at 14:53; Status DC Sodium Chloride (NS 500 ml Inj) 500 ml @ As Directed STK-MED ONCE IV ; Start at 12:00; Stop 09/23/16 at 14:53; Status DC Iohexol (Omnipaque 350 Inj) 100 ml STK-MED ONCE IV Last administered on 06:59; Start 09/24/16 at 06:59; Stop 09/24/16 at 07:00; Status DC Clonidine 1 patch 1 patch Q7D T-DERMAL Last administered on 10/08/16 12:10; Start 09/24/16 at 11:00 Pharmacy Profile Note (Vancomycin Consult Pharmacy) 0 ml @ 0 mls/hr UNSCH OTHER ; Start 09/24/16 at 09:45; Stop 09/29/16 at 15:53; Status DC Miscellaneous Information 1 1 Q7D T-DERMAL Last administered on 10/08/16 11:00 ; Start 09/24/16 at 11:00 Vancomycin HCl/ Sodium Chloride (Vancomycin Inj/ NS 250 ml Inj) 262.5 ml @ 250 mls/hr Q12H IV Last administered on 09/26/16 01:06; Start 09/24/16 at 12:00; Stop 09/26/16 at 02:02; Status DC Miscellaneous Information SPECIFIC LAB TO BE DRAWN:VANCO TROUGH DATE TO... ONCE ONCE .XX Last administered on 09/25/16 23:45; Start 09/25/16 at 23:45; Stop 09/25/16 at 23:46; Status DC Potassium Phosphate 15 mmol/ Sodium Chloride 155 ml @ 38.75 mls/ hr ONCE ONCE IV Last administered on 09/24/16 17:23; Start 09/24/16 at 16:00; Stop at 19:59; Status DC Ertapenem/Sodium Chloride (INVanz INJ/NS Inj) 50 ml @ 200 mls/hr Q24H IV Last administered on 09/30/16 17:04; Start 09/25/16 at 16:00; Stop 10/01/16 at 09:11 ; Status DC Miscellaneous Medication PLEASE CONCENTRATE ALL... UNSCH OTHER ; Start 09/25/16 at 09:15 Sodium Acetate 59 meq/Potassium Chloride 20 meq/ Potassium Phosphate 90 meq/ Magnesium Chloride 10 meq/ Calcium Chloride 9 meq/ Multivitamins 10 ml/Folic Acid 1 mg/Famotidine 40 mg/Insulin Human Regular 20 units/ Amino Acids/ Dextrose 2,086.0482 ml @ 83 mls/hr Q24H IV-CENTRAL ; Start 09/25/16 at 09:30; Status Cancel Sodium Acetate 59 meq/Potassium Chloride 20 meq/ Potassium Phosphate 90 meq/ Magnesium Chloride 10 meq/ Calcium Chloride 9 meq/ Multivitamins 10 ml/Folic Acid 1 mg/Famotidine 40 mg/Insulin Human Regular 20 units/ Amino Acids/ Dextrose 2,086.0482 ml @ 83 mls/hr Q24H IV-CENTRAL Last administered on 20:35; Start 09/25/16 at 20:00; Stop 09/27/16 at 09:05; Status DC Vancomycin HCl/ Sodium Chloride (Vancomycin Inj/ NS 500 ml Inj) 515 ml @ 250 mls/hr Q12H IV Last administered on 09/29/16 12:06; Start 09/26/16 at 12:00; Stop 09/29/16 at 15:53; Status DC Miscellaneous Information SPECIFIC LAB TO BE AZUCENA... ONCE ONCE .XX ; Start 09/27 at 23:45; Stop 09/27/16 at 23:46; Status DC Diatrizoate Meglum/ Diatrizoate Sod 120 ml 120 ml STK-MED ONCE NG ; Start at 10:21; Stop 09/26/16 at 10:22; Status DC Potassium Acetate/ Potassium Phosphate/ Magnesium Chloride/Calcium Chloride/ Multivitamins/ Folic Acid/ Famotidine/ Insulin Human Regular/Amino Acids/ Dextrose (Potassium Acetate Inj/ Potassium Phosphate Inj/ Magnesium Chloride Inj / Calcium Chlor... 2,080.5937 ml @ 83 mls/hr Q24H IV-CENTRAL Last administered on 09/30/16 20:34; Start 09/27/16 at 20:00; Stop 10/01/16 at 09:06; Status DC Benzocaine/ Menthol 1 lozenge 1 lozenge UNSCH PRN BUCCAL sore throat; Start at 16:00 Sodium Chloride/ Sterile Water (Sodium Chloride 23.4% Inj/Sterile Water For Inj ) 1,009.625 ml @ 15 mls/hr Q24H IV Last administered on 10/05/16 08:27; Start 09/28/16 at 17:00; Stop 10/06/16 at 13:25; Status DC Miscellaneous Information SPECIFIC LAB TO BE AZUCENA... ONCE ONCE .XX ; Start 10/01 at 23:45; Stop 10/01/16 at 23:46; Status Cancel Phenol (Chloraseptic [place]) 2 spray Q2H PRN OROPHARYNG sore throat; Start 09/30 at 10:00 Diatrizoate Meglum/ Diatrizoate Sod 18 ml 18 ml ONCE ONCE PO Last administered on 09/30/16 12:55; Start 09/30/16 at 11:30; Stop 09/30/16 at 11:31 ; Status DC Micafungin Sodium 100 mg/Sodium Chloride 100 ml @ 100 mls/hr Q24H IV Last administered on 10/08/16 12:08; Start 09/30/16 at 13:00 Linezolid (Zyvox 600 Mg Premix) 300 ml @ 300 mls/hr Q12H IV Last administered on 10/09/16 00:07; Start 09/30/16 at 12:00 Iohexol 97 ml 97 ml STK-MED ONCE IV ; Start 09/30/16 at 19:59; Stop 09/30/16 at 20:00; Status DC Magnesium Chloride/Calcium Chloride/ Multivitamins/ Folic Acid/ Famotidine/ Insulin Human Regular/Amino Acids/Dextrose (Magnesium Chloride Inj/ Calcium Chloride Inj/Mvi-12 Inj/ Folvite Inj/ Pepcid Inj/ NovoLIN R (IV INFUSION)/ Clinimix .) 2,026.0937 ml @ 83 mls/hr Q24H IV-CENTRAL Last administered on 10/03/16 20:00; Start 10/01/16 at 20:00; Stop 10/04/16 at 13:48; Status DC Miscellaneous Medication (ASP Crit: Necrotizing pancreatitis) 1 UNSCH X1 PRN .XX PHARMACY DOCUMENTATION; Start 10/01/16 at 09:15; Stop 10/02/16 at 09:14; Status DC Miscellaneous Medication [place] 1 UNSCH X1 PRN XX PHARMACY DOCUMENTATION; Start 10/01/16 at 09:15; Stop 10/02/16 at 09:14; Status DC Miscellaneous Medication 1 1 UNSCH X1 PRN XX PHARMACY DOCUMENTATION; Start at 09:15; Stop 10/02/16 at 09:14; Status DC Meropenem/Sodium Chloride (Merrem Inj/NS Inj) 100 ml @ 200 mls/hr Q8H IV Last administered on 10/09/16 02:50; Start 10/01/16 at 10:00 Sodium Chloride (NS Flush) See Protocol DAILY IV FLUSH Last administered on 10/08 09:23; Start 10/02/16 at 09:00 Sodium Chloride (NS Flush) See Protocol UNSCH PRN IV FLUSH SEE PROTOCOL TABLE; Start 10/01/16 at 17:15 Heparin Sodium (Porcine) (Heparin Central Flush) See Protocol DAILY IV FLUSH Last administered on 10/08/16 09:16; Start 10/02/16 at 09:00 Heparin Sodium (Porcine) (Heparin Central Flush) See Protocol UNSCH PRN IV FLUSH SEE PROTOCOL TABLE; Start 10/01/16 at 17:15 Sodium Chloride UNSCH PRN IV FLUSH SEE PROTOCOL TABLE; Start 10/01/16 at 17:15 Magnesium Chloride/ Multivitamins/ Folic Acid/ Famotidine/ Insulin Human Regular /Amino Acids/Dextrose (Magnesium Chloride Inj/ Mvi-12 Inj/ Folvite Inj/ Pepcid Inj/ NovoLIN R (IV INFUSION)/ Clinimix 4.) 2,019.4761 ml @ 83 mls/hr Q24H IV-CENTRAL Last administered on 10/05/16 20:00; Start 10/04/16 at 20:00; Stop 10/06/16 at 13:28; Status DC Diphenhydramine HCl 25 mg 25 mg Q8HR PRN IV PUSH ITCHING Last administered on 09:34; Start 10/05/16 at 11:30 Sodium Chloride 1,000 ml @ 60 mls/hr [id number] ONCE IV Last administered on 10/06 09:45; Start 10/06/16 at 09:00; Stop 10/07/16 at 01:39; Status DC Multivitamins 10 ml/Folic Acid 1 mg/Famotidine 40 mg/Insulin Human Regular 20 units/ Amino Acids/ Electrolytes/ Dextrose 2,014.4 ml @ 83 mls/hr Q24H IV- CENTRAL Last administered on 10/08/16 19:47; Start 10/06/16 at 20:00 Sodium Chloride 38.5 meq/Sterile Water 1,009.625 ml @ 15 mls/hr Q24H IV Last administered on 10/08/16 17:38; Start 10/06/16 at 13:30 Sodium Chloride (NS 1000 ml Inj) 1,000 ml @ 60 mls/hr [id number] ONCE IV Last administered on 10/07/16 14:47; Start 10/07/16 at 10:00; Stop 10/08/16 at 02:39 ; Status DC A/P Assessment and Plan A/P 1. Pancreatic Abscess: recent "pancreas surgery" at by Dr. Mathias approx [address]ks ago for pseudocyst. 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 Patient is sp exploratory laparotomy, irrigation and drainage of pancreatic abscess. Management as per general surgery. continue with pain control- Follow-up upper GI series shows suspected gastric perforation at the distal inferior stomach. however repeated upper GI series with no leak- started on sips of clear liquid- continue TPN- continue Micafungin, Meropenem and Zyvox- monitor CBC. ID following. repeated blood cultures negative so far. 2. Hypercalcemia:improved. will adjust the supplementation through TPN- - will monitor 3. Leukocytosis: improving. continue antibiotics as noted above- monitor CBC. ID following. 4. Alcohol Abuse: reports h/o alcohol abuse, however states he quit. Continue to monitor for possible withdrawal. 5. COPD: Chronic Respiratory Failure. Stable. Resumed home MDI/Neb. continue O2 to keep o2 sat more than 92%. 6. DM: Sliding scale w/ Accu-Cheks. Hold Metformin. Will continue insulin Levemir and regular in the TPN. 7. HTN: Improving continue clonidine patch to TTS 3. 8-hypophosphatemia.; replaced. 9- anemia - dilution from IV fluid?- will continue to monitor- DVT prophylaxis with subq Lovenox. continue PT. Rick Rahman MD Oct 09, 2016 09:29
[2016-10-09] MEDS: BUDESONIDE-FORMOTEROL 160/4.5 MCG INHALER INH SCH ×2 (09:49→20:11)
[2016-10-09] MEDS: INSULIN DETEMIR 100 UNITS/ML VIAL SQ SCH ×2 (10:08→20:41)
[2016-10-09] MEDS: GABAPENTIN 300 MG CAP PO SCH ×3 (10:10→17:22)
[2016-10-09] MEDS: THIAMINE HCL 100 MG TAB PO SCH (10:10)
[2016-10-09] MEDS: DOCUSATE SODIUM 50 MG/SENNA 8.6 MG TAB PO SCH ×2 (10:10→20:10)
[2016-10-09] MEDS: ROFLUMILAST 500 MCG TAB PO SCH (10:11)
[2016-10-09] MEDS: FOLIC ACID 1 MG TAB PO SCH (10:11)
--- NOTE | 2016-10-09 10:16 | HHI.PR ---
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
[2016-10-09 11:54] VITALS: BP 137/67; PULSE 90; RESP 18; TEMP 99.1; O2SAT 97
[2016-10-09] MEDS: SODIUM CHLORIDE 23.4% INJ 38.5 MEQ in WATER STERILE FOR INJ 1,000 ML IV SCH (13:30)
[2016-10-09] MEDS: MICAFUNGIN INJ 100 MG in SODIUM CHLORIDE 0.9% INJ 100 ML IV SCH (15:03)
[2016-10-09 16:00] VITALS: BP 111/69; PULSE 85; RESP 19; TEMP 98.4; O2SAT 99
[2016-10-09] MEDS: FAT EMULSION 20% INJ 250 ML (@10 mls/hr) IV-CENTRAL SCH (19:55)
[2016-10-09] MEDS: MULTIVITAMIN IV-CENTRAL SCH ×5 (19:56)
[2016-10-09] MEDS: FAMOTIDINE IV-CENTRAL SCH ×5 (19:56)
[2016-10-09] MEDS: FOLIC ACID IV-CENTRAL SCH ×5 (19:56)
[2016-10-09] MEDS: [UNRECOGNIZED DRUG - OTHER] IV-CENTRAL SCH ×5 (19:56)
[2016-10-09] MEDS: ENOXAPARIN SODIUM 40 MG/0.4 ML SYRINGE SQ SCH (19:57)
[2016-10-09 20:00] VITALS: BP 117/61; PULSE 72; RESP 17; TEMP 99; O2SAT 97
[2016-10-10] VITALS (8 sets, daily range): BP systolic 104–165; BP diastolic 58–80; PULSE 79–92; RESP 17–18; TEMP 96.5–98.9; O2SAT 95–100
[2016-10-10] MEDS: MEROPENEM INJ 1,000 MG in SODIUM CHLORIDE 0.9% INJ 100 ML IV SCH ×2 (01:57→08:53)
[2016-10-10] MEDS: INSULIN ASPART SUPPLEMENTAL SCALE SQ SCH ×4 (06:00→23:13)
[2016-10-10] MEDS: PCA - TOTAL MG MORPHINE DELIVERED PER SHIFT SCH ×3 (06:00→22:00)
[2016-10-10 06:13] LABS: AUTOMATED NEUTROPHIL # 10.1 TH/MM3 (1.8-7.7); BASOPHIL # 0.1 TH/MM3 (0-0.2); BASOPHIL % 0.9 % (0.0-2.0); EOSINOPHIL # 0.4 TH/MM3 (0-0.4); EOSINOPHIL % 2.8 % (0.0-4.0); HEMATOCRIT 22.5 % (39.0-51.0); HEMO FLAGS DIFF FINAL; LYMPH % 14.2 % (9.0-44.0); MEAN CELL VOLUME 73.8 FL (80.0-100.0); MEAN CORPUSCULAR HEMOGLOBIN 23.4 PG (27.0-34.0); MEAN CORPUSCULAR HGB CONC 31.7 % (32.0-36.0); MONO % 9.8 % (0.0-8.0); NEUT % 72.3 % (16.0-70.0); PLATELET COUNT 208 TH/MM3 (150-450); RED BLOOD COUNT 3.05 MIL/MM3 (4.50-5.90); RED CELL DISTRIBUTION WIDTH 17.6 % (11.6-17.2)
[2016-10-10 07:24] LABS: BICARBONATE 24.1 MEQ/L (21.0-32.0); POTASSIUM 4.1 MEQ/L (3.5-5.1)
[2016-10-10] MEDS: DOCUSATE SODIUM 50 MG/SENNA 8.6 MG TAB PO SCH ×2 (08:44→20:56)
[2016-10-10] MEDS: GABAPENTIN 300 MG CAP PO SCH ×3 (08:51→17:16)
[2016-10-10] MEDS: ROFLUMILAST 500 MCG TAB PO SCH (08:51)
[2016-10-10] MEDS: cloNIDine HCL 0.2 MG TAB PO SCH (08:52)
[2016-10-10] MEDS: FOLIC ACID 1 MG TAB PO SCH (08:52)
[2016-10-10] MEDS: SODIUM CHLORIDE 0.9% FLUSH 10 ML FLUSH IV FLUSH SCH ×3 (08:52→20:55)
[2016-10-10] MEDS: THIAMINE HCL 100 MG TAB PO SCH (08:53)
[2016-10-10] MEDS: BUDESONIDE-FORMOTEROL 160/4.5 MCG INHALER INH SCH ×2 (08:53→20:57)
[2016-10-10] MEDS: INSULIN DETEMIR 100 UNITS/ML VIAL SQ SCH ×2 (09:00→21:06)
--- NOTE | 2016-10-10 09:27 | HHI.PR ---
Subjective Remarks resting comfortably with no distress. pain is controlled. afebrile. d/w the RN and no acute issues over night. Objective Vitals Vital Signs Date Time Temp Pulse Resp B/P Pulse Ox O2 Delivery O2 Flow Rate FiO2 10/10/16 08:22 18 10/10/16 06:00 16 10/10/16 00:00 98.9 83 17 142/80 100 10/09/16 22:00 16 10/09/16 20:00 99.0 72 17 117/61 97 10/09/16 16:00 98.4 85 19 111/69 99 10/09/16 14:00 20 10/09/16 11:54 99.1 90 18 137/67 97 I/O 10/09/16 10/09/16 10/09/16 10/10/16 10/10/16 10/10/16 07:00 15:00 23:00 07:00 15:00 23:00 Intake Total 1480 ml 1080 ml 3716 ml 1589 ml Output Total 500 ml 600 ml 400 ml 200 ml Balance 980 ml 480 ml 3316 ml 1389 ml Intake Oral 120 ml 1080 ml 360 ml 240 ml IV Total 513 ml 901 ml 500 ml TPN/PPN 756 ml 2188 ml 757 ml Lipid 91 ml 267 ml 92 ml Output Urine Total 500 ml 600 ml 400 ml 200 ml # Bowel Movements 0 3 1 Result Diagram: 10/10/16 0548 10/10/16 0548 Imaging Last Impressions Abdomen CT 10/03/16 1526 Signed Impressions: Service Date/Time: Monday, October 03, 2016 15:30 - CONCLUSION: 1. Small residual abscess anterior to the second portion of the duodenum in somewhat of a precarious place to drain percutaneously. There is no obvious extravasation of contrast into this. 2. Nasogastric tube was repositioned into the stomach. Kermit Rollins MD FACR Upper GI Series 10/03/16 0000 Signed Impressions: Service Date/Time: Monday, October 03, 2016 15:01 - CONCLUSION: I see no obvious leak however the examination is limited. Bulk of the Gastrografin tries to reflux back into the esophagus. Kermit Rollins MD FACR Chest X-Ray 10/01/16 0000 Signed Impressions: Service Date/Time: Saturday, October 01, 2016 17:03 - CONCLUSION: 1. Left- sided PICC line has its tip in the superior vena cava in good position. 2. Perihilar atelectasis is stable. Adiel Noland MD Abdomen/Pelvis CT 09/30/16 0000 Signed Impressions: Service Date/Time: Friday, September 30, 2016 18:41 - CONCLUSION: 1. Multiple fluid collections seen associated with the pancreas and the root of the mesentery. The fluid collection associated with the pancreatic tail has increased in size from the prior study while the remaining collections are essentially stable. Hubert Rodrigues Jr., MD Objective Remarks GENERAL: looks fairly comfortable. CARDIOVASCULAR: Regular rate and irregular rhythm without murmurs, gallops, or rubs. RESPIRATORY: Clear to auscultation. Breath sounds equal bilaterally. No wheezes , rales, or rhonchi. GASTROINTESTINAL: Abdomen soft, non-tender, nondistended. drain in place. MUSCULOSKELETAL: Extremities without clubbing, cyanosis, or edema. NEURO: Alert & Oriented x4 to person, place, time, situation. Moves all ext x4 Procedures Right IJ central line sp Exploratory laparotomy, irrigation and debridement of peripancreatic abscess and necrosectomy PICC line placement Medications and IVs Current Medications Ondansetron HCl (Zofran Inj) 4 mg ONCE ONCE IVP Last administered on 09/16/16 19:48; Start 09/16/16 at 19:00; Stop 09/16/16 at 19:01; Status DC Sodium Chloride (NS Flush) 2 ml UNSCH PRN IV FLUSH FLUSH AFTER USING IV ACCESS Last administered on 09/16/16 19:48; Start 09/16/16 at 19:00; Stop 09/16/16 at 21: 05; Status DC Hydromorphone HCl 1 mg 1 mg ONCE ONCE IVS Last administered on 09/16/16 19:48 ; Start 09/16/16 at 19:00; Stop 09/16/16 at 19:01; Status DC Sodium Chloride 500 ml @ 500 mls/hr BOLUS ONCE IV Last administered on 19:47; Start 09/16/16 at 19:00; Stop 09/16/16 at 19:59; Status DC Aztreonam 2000 mg/ Sodium Chloride 100 ml @ 200 mls/hr ONCE STAT IV Last administered on 09/16/16 22:52; Start 09/16/16 at 20:25; Stop 09/16/16 at 20:54; Status DC Metronidazole 100 ml @ 100 mls/hr ONCE STAT IV Last administered on 09/16/16 21:57; Start 09/16/16 at 20:25; Stop 09/16/16 at 21:24; Status DC Ciprofloxacin/ Dextrose 200 ml @ 200 mls/hr Q12H IV Last administered on 10:59; Start 09/17/16 at 09:00; Stop 09/20/16 at 20:42; Status DC Metronidazole 100 ml @ 100 mls/hr Q8H IV Last administered on 09/20/16 11:39 ; Start 09/17/16 at 04:00; Stop 09/20/16 at 20:42; Status DC Sodium Chloride (NS 1000 ml Inj) 1,000 ml @ 125 mls/hr Q8H IV Last administered on 09/19/16 09:59; Start 09/16/16 at 20:54; Stop 09/19/16 at 20:15 ; Status DC Sodium Chloride (NS Flush) 2 ml UNSCH PRN IV FLUSH FLUSH AFTER USING IV ACCESS ; Start 09/16/16 at 21:00 Sodium Chloride (NS Flush) 2 ml BID IV FLUSH Last administered on 10/10/16 08: 53; Start 09/16/16 at 21:00 Ondansetron HCl (Zofran Inj) 4 mg Q6H PRN IVP NAUSEA OR VOMITING Last administered on 09/30/16 12:54; Start 09/16/16 at 21:00 Acetaminophen (Tylenol) 650 mg Q6H PRN PO FEVER; Start 09/16/16 at 21:00; Status Hold Morphine Sulfate (Morphine Inj) 2 mg Q3H PRN IV Pain 6-10 Last administered on 09/19/16 15:26; Start 09/16/16 at 21:00; Stop 09/19/16 at 19:31; Status DC Oxycodone HCl (Roxicodone) 5 mg Q4H PRN PO PAIN SCALE 3 TO 5 Last administered on 09/16/16 22:52; Start 09/16/16 at 21:00; Status Hold Senna/Docusate Sodium (Fátima-Colace) 1 tab BID PO Last administered on 10/09/16 10:10; Start 09/16/16 at 21:00 Magnesium Hydroxide (Milk Of Magnesia Liq) 30 ml Q12H PRN PO MILD - MODERATE CONSTIPATION; Start 09/16/16 at 21:00 Sennosides (Senokot) 17.2 mg Q12H PRN PO MODERATE - SEVERE CONSTIPATION; Start 09/16/16 at 21:00 Bisacodyl (Dulcolax Supp) 10 mg DAILY PRN RECTAL SEVERE CONSITIPATION; Start at 21:00 Lactulose (Lactulose Liq) 30 ml DAILY PRN PO SEVERE CONSITIPATION; Start at 21:00 Hydromorphone HCl (Dilaudid Pf Inj) 1 mg ONCE ONCE IV PUSH ; Start 09/16/16 at 22:15; Stop 09/16/16 at 22:16; Status DC Albuterol Sulfate (Albuterol Neb) 2.5 mg QID NEB PRN NEB SHORTNESS OF BREATH Last administered on 09/27/16 03:09; Start 09/17/16 at 02:15 Allopurinol (Zyloprim) 300 mg DAILY PO Last administered on 09/19/16 09:58; Start 09/17/16 at 09:00; Status Hold Amlodipine Besylate (Norvasc) 5 mg BID PO Last administered on 09/19/16 09:58 ; Start 09/17/16 at 09:00; Status Hold Budesonide/ Formoterol Fumarate (Symbicort 160-4.5 Inh) 2 puff Q12HR INH Last administered on 10/10/16 08:53; Start 09/17/16 at 09:00 Clonidine (Catapres) 0.2 mg Q12HR PO Last administered on 09/19/16 09:58; Start 09/17/16 at 09:00; Status Hold Gabapentin (Neurontin) 600 mg TID PO Last administered on 10/10/16 08:51; Start 09/17/16 at 09:00 Roflumilast (Daliresp) 500 mcg DAILY PO Last administered on 10/10/16 08:51; Start 09/17/16 at 09:00 Thiamine HCl (Vitamin B1) 100 mg DAILY PO Last administered on 10/10/16 08:53; Start 09/17/16 at 09:00 Zolpidem Tartrate (Ambien) 5 mg HS PRN PO insomnia Last administered on 22:57; Start 09/17/16 at 02:15 Folic Acid (Folate) 1 mg DAILY PO Last administered on 10/10/16 08:52; Start at 09:00 Amylase/Lipase/ Protease (Creon 24-76-120) 2 cap TID PO Last administered on 17:07; Start 09/17/16 at 13:00; Status Hold Iohexol 98 ml 98 ml STK-MED ONCE IV Last administered on 09/17/16 15:40; Start 09/17/16 at 15:40; Stop 09/17/16 at 15:41; Status DC Lactated Ringer's 1,000 ml @ 30 mls/hr Q24H PRN IV SEE LABEL COMMENTS; Start at 22:45; Stop 09/19/16 at 19:23; Status DC Sodium Chloride (NS 500 ml Inj) 500 ml @ 30 mls/hr [id number] PRN IV SEE LABEL COMMENTS; Start 09/18/16 at 22:45; Stop 09/19/16 at 19:23; Status DC Metoprolol Tartrate (Lopressor) 25 mg TRANSPORTATION ATTENDANT PRN PO SEE LABEL COMMENTS; Start 09/18/16 at 22:45; Stop 09/21/16 at 22:44; Status DC Povidone Iodine (Betadine 5% Antisepsis Kit) 1 applic TRANSPORTATION ATTENDANT PRN EACH NARE SEE LABEL COMMENTS; Start 09/18/16 at 22:45; Stop 09/21/16 at 22:44; Status DC Chlorhexidine Gluconate (Chlorhexidine 2% Cloth) 3 pack TRANSPORTATION ATTENDANT PRN TOPICAL SEE LABEL COMMENTS; Start 09/18/16 at 22:45; Stop 09/21/16 at 22:44; Status DC Insulin Human Regular See Protocol Table ... TRANSPORTATION ATTENDANT PRN SQ SEE PROTOCOL TABLE ; Start 09/18/16 at 22:45; Stop 09/21/16 at 22:44; Status DC Potassium Chloride (KCl 10 Meq Premix Inj) 100 ml @ 100 mls/hr BOLUS ONCE IV Last administered on 09/19/16 11:22; Start 09/19/16 at 11:00; Stop 09/19/16 at 11:59; Status DC Midazolam HCl (Versed Inj) 2 mg STK-MED ONCE .ROUTE Last administered on 17:03; Start 09/19/16 at 17:02; Stop 09/19/16 at 17:03; Status DC Dextrose (D50w (Vial) Inj) 50 ml UNSCH PRN IV HYPOGLYCEMIA-SEE COMMENTS; Start 09/19/16 at 19:30; Status UNV Glucagon (Glucagon Inj) 1 mg UNSCH PRN OTHER HYPOGLYCEMIA-SEE COMMENTS; Start 09/19/16 at 19:30; Status UNV Insulin Aspart (NovoLOG SUPPLEMENTAL SCALE) 1 Q6HR SQ Last administered on 17:22; Start 09/20/16 at 00:00 Dextrose (D50w (Syr) Inj) 50 ml UNSCH PRN IV HYPOGLYCEMIA-SEE COMMENTS; Start 09/19/16 at 19:30 Glucagon (Glucagon Inj) 1 mg UNSCH PRN OTHER HYPOGLYCEMIA-SEE COMMENTS; Start 09/19/16 at 19:30 Labetalol HCl (Trandate Inj) 100 mg STK-MED ONCE .ROUTE Last administered on 19:30; Start 09/19/16 at 19:27; Stop 09/19/16 at 19:28; Status DC Morphine Sulfate (Morphine Inj) 3 mg Q1H PRN IV Pain 6-10 Last administered on 09/20/16 17:15; Start 09/19/16 at 20:00; Status Hold Fentanyl Citrate (fentaNYL INJ) 500 mcg STK-MED ONCE .ROUTE ; Start 09/19/16 at 19:33; Stop 09/19/16 at 19:34; Status DC Miscellaneous Information ALL NURSING DEPARTME... UNSCH PRN .XX SEE LABEL COMMENTS; Start 09/19/16 at 19:22; Stop 09/20/16 at 19:21; Status DC Multivitamins 10 ml/Folic Acid 1 mg/Insulin Human Regular 20 units/ Famotidine 40 mg/ Amino Acids/ Electrolytes/ Dextrose 2,014.4 ml @ 83 mls/hr Q24H IV- CENTRAL Last administered on 09/22/16 20:39; Start 09/20/16 at 20:00; Stop at 19:59; Status DC Fat Emulsion Intravenous 250 ml @ 10 mls/hr Q24H IV-CENTRAL Last administered on 10/09/16 19:55; Start 09/20/16 at 20:00 Potassium Chloride/Sodium Chloride (/ NS + KCl 20 Meq Inj) 1,000 ml @ As Directed STK-MED ONCE .ROUTE Last administered on 09/19/16 20:12; Start at 20:07; Stop 09/19/16 at 20:08; Status DC Morphine Sulfate (*morphine INJ PERIprocedure ONLY) 8 mg STK-MED ONCE .ROUTE Last administered on 09/19/16 20:09; Start 09/19/16 at 20:08; Stop 09/19/16 at 20:09; Status DC Pantoprazole Sodium 40 mg 40 mg Q24H IV PUSH Last administered on 09/19/16 20: 35; Start 09/19/16 at 21:00; Stop 09/20/16 at 09:52; Status DC Potassium Chloride/Sodium Chloride 1,000 ml @ 125 mls/hr Q8H IV Last administered on 09/20/16 03:31; Start 09/19/16 at 20:30; Stop 09/20/16 at 09:52 ; Status DC Potassium Chloride 100 ml @ As Directed STK-MED ONCE .ROUTE ; Start 09/19/16 at 21:07; Stop 09/19/16 at 21:08; Status DC Potassium Chloride 100 ml @ 50 mls/hr Q2H IV Last administered on 09/19/16 23 :35; Start 09/19/16 at 23:00; Stop 09/20/16 at 02:59; Status DC Amino Acids/ Electrolytes/ Dextrose (Clinimix E 4.25/ 25) 1,000 ml @ 83 mls/hr Q12H3M IV-CENTRAL Last administered on 09/20/16 09:33; Start 09/20/16 at 10:00 ; Stop 09/20/16 at 22:02; Status DC Acetaminophen (Ofirmev Inj) 650 mg Q6HR PRN IV FEVER; Start 09/20/16 at 09:30 Labetalol HCl (Trandate Inj) 10 mg Q4H PRN IV PUSH SYS BP GREATER THAN 160 MMHG Last administered on 09/22/16 21:09; Start 09/20/16 at 09:30 Pantoprazole Sodium 40 mg 40 mg DAILY IV PUSH Last administered on 09/20/16 10 :59; Start 09/20/16 at 10:00; Stop 09/20/16 at 14:50; Status DC Sodium Chloride 1,000 ml @ 40 mls/hr Q24H IV Last administered on 09/24/16 08 :28; Start 09/20/16 at 10:00; Stop 09/24/16 at 15:18; Status DC Magnesium Sulfate/ Dextrose (Magnesium Sulfate 1 Gm Premix) 100 ml @ 100 mls/ hr Q1H IV Last administered on 09/20/16 11:39; Start 09/20/16 at 10:00; Stop 09/20/16 at 11:59; Status DC Pantoprazole Sodium (Protonix Inj) 40 mg Q24H IV PUSH Last administered on 09/23 11:48; Start 09/20/16 at 11:30; Stop 09/24/16 at 08:32; Status DC Naloxone HCl (Narcan Inj) 0.4 mg UNSCH PRN IV RESPIRATORY RATE LESS THAN 10; Start 09/20/16 at 14:45 Morphine Sulfate (Morphine 1 Mg/ ml WHEEL INSTALLER) 30 mg UNSCH IV Last administered on 07:20; Start 09/20/16 at 14:45 WHEEL INSTALLER Dosage Infused (Pha) 1 1 Q8HR .XX Last administered on 10/10/16 06:00; Start 09/20/16 at 22:00 Magnesium Sulfate/ Dextrose 100 ml @ 100 mls/hr Q1H IV Last administered on 23:49; Start 09/20/16 at 20:00; Stop 09/20/16 at 21:59; Status DC Fluconazole/ Sodium Chloride 100 ml @ 100 mls/hr Q24H IV Last administered on 09/29/16 22:10; Start 09/20/16 at 22:00; Stop 09/30/16 at 11:44; Status DC Piperacillin Sod/ Tazobactam Sod 100 ml @ 200 mls/hr Q6H IV ; Start 09/20/16 at 20:45; Stop 09/20/16 at 20:47; Status DC Ciprofloxacin/ Dextrose 200 ml @ 200 mls/hr Q12H IV Last administered on 11:48; Start 09/20/16 at 23:00; Stop 09/23/16 at 12:10; Status DC Metronidazole (Flagyl 500 Mg Inj) 100 ml @ 100 mls/hr Q6H IV Last administered on 09/29/16 10:17; Start 09/20/16 at 21:00; Stop 09/29/16 at 15:53 ; Status DC Insulin Detemir (Levemir Inj) 5 units Q12HR SQ Last administered on 10/10/16 09 :00; Start 09/21/16 at 09:00 Clonidine 1 patch 1 patch Q7D T-DERMAL Last administered on 09/21/16 01:17; Start 09/20/16 at 22:15; Stop 09/24/16 at 08:34; Status DC Potassium Phosphate 15 mmol/ Sodium Chloride 155 ml @ 38.75 mls/ hr ONCE ONCE IV Last administered on 09/21/16 08:54; Start 09/21/16 at 09:00; Stop at 12:59; Status DC Potassium Chloride (KCl 20 Meq Premix Inj) 100 ml @ 50 mls/hr Q2H IV Last administered on 09/21/16 09:50; Start 09/21/16 at 08:00; Stop 09/21/16 at 11:59 ; Status DC Enoxaparin Sodium 40 mg 40 mg Q24H SQ Last administered on 10/09/16 19:57; Start 09/21/16 at 20:00 Potassium Phosphate 15 mmol/ Sodium Chloride 155 ml @ 38.75 mls/ hr ONCE ONCE IV Last administered on 09/21/16 22:25; Start 09/21/16 at 20:00; Stop at 23:59; Status DC Potassium Chloride 100 ml @ 50 mls/hr Q2H IV Last administered on 09/22/16 16 :26; Start 09/22/16 at 12:00; Stop 09/22/16 at 15:59; Status DC Magnesium Sulfate/ Dextrose (Magnesium Sulfate 1 Gm Premix) 100 ml @ 100 mls/ hr ONCE ONCE IV Last administered on 09/22/16 14:24; Start 09/22/16 at 12:00 ; Stop 09/22/16 at 12:59; Status DC Enalaprilat 1.25 mg 1.25 mg Q6H PRN IV PUSH SYS BP GREATER THAN 160 MMHG Last administered on 09/27/16 13:20; Start 09/22/16 at 21:30 Sodium Chloride 11 meq/Sodium Acetate 59 meq/ Potassium Chloride 20 meq/ Potassium Phosphate 60 meq/ Magnesium Chloride 10 meq/ Calcium Chloride 9 meq/ Multivitamins 10 ml/Folic Acid 1 mg/Famotidine 40 mg/Insulin Human Regular 20 units/ Amino Acids/ Dextrose 2,081.9801 ml @ 83 mls/hr Q24H IV-CENTRAL Last administered on 09/24/16 21:45; Start 09/23/16 at 20:00; Stop 09/25/16 at 19:59 ; Status DC Aztreonam 2000 mg/ Sodium Chloride 100 ml @ 200 mls/hr Q8H IV ; Start 09/23/16 at 14:00; Stop 09/23/16 at 14:00; Status DC Azithromycin/ Sodium Chloride (Zithromax Inj/ NS 250 ml Inj) 250 ml @ 250 mls/ hr Q24H IV Last administered on 09/28/16 14:52; Start 09/23/16 at 13:00; Stop 09/29/16 at 09:28; Status DC Miscellaneous Medication (ASP Crit: Doc allergy to Penicillin/ Cephalosp) 1 UNSCH X1 PRN .XX PHARMACY DOCUMENTATION; Start 09/23/16 at 12:15; Stop at 12:15; Status DC Miscellaneous Medication (ASP Crit: Necrotizing pancreatitis) 1 UNSCH X1 PRN .XX PHARMACY DOCUMENTATION; Start 09/23/16 at 12:15; Stop 09/24/16 at 12:15; Status DC Miscellaneous Medication 1 1 UNSCH X1 PRN XX PHARMACY DOCUMENTATION; Start at 12:15; Stop 09/24/16 at 12:15; Status DC Ertapenem/Sodium Chloride (INVanz INJ/NS Inj) 100 ml @ 200 mls/hr Q24H IV Last administered on 09/24/16 15:33; Start 09/23/16 at 14:00; Stop 09/25/16 at 09:07; Status DC Miscellaneous Medication ([facility] [place] Pharmacy Information) 1 UNSCH X1 PRN XX PHARMACY DOCUMENTATION; Start 09/23/16 at 12:15; Stop 09/24/16 at 12:15; Status DC Propofol (Diprivan 200 Mg/20 ml Inj) 200 mg STK-MED ONCE IV ; Start 09/19/16 at 12:00; Stop 09/23/16 at 14:53; Status DC Phenylephrine HCl 1000 mcg 1,000 mcg STK-MED ONCE IV ; Start 09/19/16 at 12:00; Stop 09/23/16 at 14:53; Status DC Lactated Ringer's 1,000 ml @ As Directed STK-MED ONCE IV ; Start 09/19/16 at 12 :00; Stop 09/23/16 at 14:53; Status DC Sodium Chloride (NS 500 ml Inj) 500 ml @ As Directed STK-MED ONCE IV ; Start at 12:00; Stop 09/23/16 at 14:53; Status DC Iohexol (Omnipaque 350 Inj) 100 ml STK-MED ONCE IV Last administered on 06:59; Start 09/24/16 at 06:59; Stop 09/24/16 at 07:00; Status DC Clonidine 1 patch 1 patch Q7D T-DERMAL Last administered on 10/08/16 12:10; Start 09/24/16 at 11:00 Pharmacy Profile Note (Vancomycin Consult Pharmacy) 0 ml @ 0 mls/hr UNSCH OTHER ; Start 09/24/16 at 09:45; Stop 09/29/16 at 15:53; Status DC Miscellaneous Information 1 1 Q7D T-DERMAL Last administered on 10/08/16 11:00 ; Start 09/24/16 at 11:00 Vancomycin HCl/ Sodium Chloride (Vancomycin Inj/ NS 250 ml Inj) 262.5 ml @ 250 mls/hr Q12H IV Last administered on 09/26/16 01:06; Start 09/24/16 at 12:00; Stop 09/26/16 at 02:02; Status DC Miscellaneous Information SPECIFIC LAB TO BE DRAWN:VANCO TROUGH DATE TO... ONCE ONCE .XX Last administered on 09/25/16 23:45; Start 09/25/16 at 23:45; Stop 09/25/16 at 23:46; Status DC Potassium Phosphate 15 mmol/ Sodium Chloride 155 ml @ 38.75 mls/ hr ONCE ONCE IV Last administered on 09/24/16 17:23; Start 09/24/16 at 16:00; Stop at 19:59; Status DC Ertapenem/Sodium Chloride (INVanz INJ/NS Inj) 50 ml @ 200 mls/hr Q24H IV Last administered on 09/30/16 17:04; Start 09/25/16 at 16:00; Stop 10/01/16 at 09:11 ; Status DC Miscellaneous Medication PLEASE CONCENTRATE ALL... UNSCH OTHER ; Start 09/25/16 at 09:15 Sodium Acetate 59 meq/Potassium Chloride 20 meq/ Potassium Phosphate 90 meq/ Magnesium Chloride 10 meq/ Calcium Chloride 9 meq/ Multivitamins 10 ml/Folic Acid 1 mg/Famotidine 40 mg/Insulin Human Regular 20 units/ Amino Acids/ Dextrose 2,086.0482 ml @ 83 mls/hr Q24H IV-CENTRAL ; Start 09/25/16 at 09:30; Status Cancel Sodium Acetate 59 meq/Potassium Chloride 20 meq/ Potassium Phosphate 90 meq/ Magnesium Chloride 10 meq/ Calcium Chloride 9 meq/ Multivitamins 10 ml/Folic Acid 1 mg/Famotidine 40 mg/Insulin Human Regular 20 units/ Amino Acids/ Dextrose 2,086.0482 ml @ 83 mls/hr Q24H IV-CENTRAL Last administered on 20:35; Start 09/25/16 at 20:00; Stop 09/27/16 at 09:05; Status DC Vancomycin HCl/ Sodium Chloride (Vancomycin Inj/ NS 500 ml Inj) 515 ml @ 250 mls/hr Q12H IV Last administered on 09/29/16 12:06; Start 09/26/16 at 12:00; Stop 09/29/16 at 15:53; Status DC Miscellaneous Information SPECIFIC LAB TO BE AZUCENA... ONCE ONCE .XX ; Start 09/27 at 23:45; Stop 09/27/16 at 23:46; Status DC Diatrizoate Meglum/ Diatrizoate Sod 120 ml 120 ml STK-MED ONCE NG ; Start at 10:21; Stop 09/26/16 at 10:22; Status DC Potassium Acetate/ Potassium Phosphate/ Magnesium Chloride/Calcium Chloride/ Multivitamins/ Folic Acid/ Famotidine/ Insulin Human Regular/Amino Acids/ Dextrose (Potassium Acetate Inj/ Potassium Phosphate Inj/ Magnesium Chloride Inj / Calcium Chlor... 2,080.5937 ml @ 83 mls/hr Q24H IV-CENTRAL Last administered on 09/30/16 20:34; Start 09/27/16 at 20:00; Stop 10/01/16 at 09:06; Status DC Benzocaine/ Menthol 1 lozenge 1 lozenge UNSCH PRN BUCCAL sore throat; Start at 16:00 Sodium Chloride/ Sterile Water (Sodium Chloride 23.4% Inj/Sterile Water For Inj ) 1,009.625 ml @ 15 mls/hr Q24H IV Last administered on 10/05/16 08:27; Start 09/28/16 at 17:00; Stop 10/06/16 at 13:25; Status DC Miscellaneous Information SPECIFIC LAB TO BE ... ONCE ONCE .XX ; Start 10/01 at 23:45; Stop 10/01/16 at 23:46; Status Cancel Phenol (Chloraseptic [place]) 2 spray Q2H PRN OROPHARYNG sore throat; Start 09/30 at 10:00 Diatrizoate Meglum/ Diatrizoate Sod 18 ml 18 ml ONCE ONCE PO Last administered on 09/30/16 12:55; Start 09/30/16 at 11:30; Stop 09/30/16 at 11:31 ; Status DC Micafungin Sodium 100 mg/Sodium Chloride 100 ml @ 100 mls/hr Q24H IV Last administered on 10/09/16 15:03; Start 09/30/16 at 13:00 Linezolid (Zyvox 600 Mg Premix) 300 ml @ 300 mls/hr Q12H IV Last administered on 10/09/16 23:56; Start 09/30/16 at 12:00 Iohexol 97 ml 97 ml STK-MED ONCE IV ; Start 09/30/16 at 19:59; Stop 09/30/16 at 20:00; Status DC Magnesium Chloride/Calcium Chloride/ Multivitamins/ Folic Acid/ Famotidine/ Insulin Human Regular/Amino Acids/Dextrose (Magnesium Chloride Inj/ Calcium Chloride Inj/Mvi-12 Inj/ Folvite Inj/ Pepcid Inj/ NovoLIN R (IV INFUSION)/ Clinimix .) 2,026.0937 ml @ 83 mls/hr Q24H IV-CENTRAL Last administered on 10/03/16 20:00; Start 10/01/16 at 20:00; Stop 10/04/16 at 13:48; Status DC Miscellaneous Medication (ASP Crit: Necrotizing pancreatitis) 1 UNSCH X1 PRN .XX PHARMACY DOCUMENTATION; Start 10/01/16 at 09:15; Stop 10/02/16 at 09:14; Status DC Miscellaneous Medication ([facility] [place] Pharmacy Information) 1 UNSCH X1 PRN XX PHARMACY DOCUMENTATION; Start 10/01/16 at 09:15; Stop 10/02/16 at 09:14; Status DC Miscellaneous Medication 1 1 UNSCH X1 PRN XX PHARMACY DOCUMENTATION; Start at 09:15; Stop 10/02/16 at 09:14; Status DC Meropenem/Sodium Chloride (Merrem Inj/NS Inj) 100 ml @ 200 mls/hr Q8H IV Last administered on 10/10/16 08:53; Start 10/01/16 at 10:00 Sodium Chloride (NS Flush) See Protocol DAILY IV FLUSH Last administered on 10/10 08:52; Start 10/02/16 at 09:00 Sodium Chloride (NS Flush) See Protocol UNSCH PRN IV FLUSH SEE PROTOCOL TABLE; Start 10/01/16 at 17:15 Heparin Sodium (Porcine) (Heparin Central Flush) See Protocol DAILY IV FLUSH Last administered on 10/10/16 08:52; Start 10/02/16 at 09:00 Heparin Sodium (Porcine) (Heparin Central Flush) See Protocol UNSCH PRN IV FLUSH SEE PROTOCOL TABLE; Start 10/01/16 at 17:15 Sodium Chloride UNSCH PRN IV FLUSH SEE PROTOCOL TABLE; Start 10/01/16 at 17:15 Magnesium Chloride/ Multivitamins/ Folic Acid/ Famotidine/ Insulin Human Regular /Amino Acids/Dextrose (Magnesium Chloride Inj/ Mvi-12 Inj/ Folvite Inj/ Pepcid Inj/ NovoLIN R (IV INFUSION)/ Clinimix ) 2,019.4761 ml @ 83 mls/hr Q24H IV-CENTRAL Last administered on 10/05/16 20:00; Start 10/04/16 at 20:00; Stop 10/06/16 at 13:28; Status DC Diphenhydramine HCl 25 mg 25 mg Q8HR PRN IV PUSH ITCHING Last administered on 09:34; Start 10/05/16 at 11:30 Sodium Chloride 1,000 ml @ 60 mls/hr [id number] ONCE IV Last administered on 10/06 09:45; Start 10/06/16 at 09:00; Stop 10/07/16 at 01:39; Status DC Multivitamins 10 ml/Folic Acid 1 mg/Famotidine 40 mg/Insulin Human Regular 20 units/ Amino Acids/ Electrolytes/ Dextrose 2,014.4 ml @ 83 mls/hr Q24H IV- CENTRAL Last administered on 10/09/16 19:56; Start 10/06/16 at 20:00 Sodium Chloride 38.5 meq/Sterile Water 1,009.625 ml @ 15 mls/hr Q24H IV Last administered on 10/08/16 17:38; Start 10/06/16 at 13:30 Sodium Chloride (NS 1000 ml Inj) 1,000 ml @ 60 mls/hr [id number] ONCE IV Last administered on 10/07/16 14:47; Start 10/07/16 at 10:00; Stop 10/08/16 at 02:39 ; Status DC A/P Assessment and Plan A/P 1. Pancreatic Abscess: recent "pancreas surgery" at by Dr. Mathias approx [address]ks ago for pseudocyst. 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 Patient is sp exploratory laparotomy, irrigation and drainage of pancreatic abscess. Management as per general surgery. continue with pain control- started on sips of clear liquid- continue TPN- continue Micafungin, Meropenem and Zyvox- monitor CBC. ID following. repeated blood cultures negative so far. 2. Hypercalcemia:improved. continue IV fluid and monitor 3. Leukocytosis: improving. continue antibiotics as noted above- monitor CBC. 4. Alcohol Abuse: reports h/o alcohol abuse, however states he quit. Continue to monitor for possible withdrawal. 5. COPD: Chronic Respiratory Failure. Stable. Resumed home MDI/Neb. continue O2 to keep o2 sat more than 92%. 6. DM: Sliding scale w/ Accu-Cheks. Hold Metformin. Will continue insulin Levemir and regular in the TPN. 7. HTN: Improving continue clonidine patch to TTS 3. 8-hypophosphatemia.; replaced. 9- anemia - dilution from IV fluid?- will continue to monitor- DVT prophylaxis with subq Lovenox. continue PT. Rick Rahman MD Oct 10, 2016 09:27
[2016-10-10] MEDS: SODIUM CHLOR 0.9% 1000 ML INJ 1,000 ML IV SCH (09:30)
--- NOTE | 2016-10-10 10:21 | HHI.PR ---
Subjective Subjective Notes feels better, wants regular food Objective Vitals/I&O Vital Signs Date Time Temp Pulse Resp B/P Pulse Ox O2 Delivery O2 Flow Rate FiO2 10/10/16 08:22 18 10/10/16 08:00 98.1 82 165/69 95 10/07/16 17:28 Nasal Cannula 2.00 Labs Laboratory Tests Test 10/10/16 05:48 White Blood Count 14.0 Red Blood Count 3.05 Hemoglobin 7.2 Hematocrit 22.5 Mean Corpuscular Volume 73.8 Mean Corpuscular Hemoglobin 23.4 Mean Corpuscular Hemoglobin 31.7 Concent Red Cell Distribution Width 17.6 Platelet Count 208 Mean Platelet Volume 9.5 Neutrophils (%) (Auto) 72.3 Lymphocytes (%) (Auto) 14.2 Monocytes (%) (Auto) 9.8 Eosinophils (%) (Auto) 2.8 Basophils (%) (Auto) 0.9 Neutrophils # (Auto) 10.1 Lymphocytes # (Auto) 2.0 Monocytes # (Auto) 1.4 Eosinophils # (Auto) 0.4 Basophils # (Auto) 0.1 CBC Comment DIFF FINAL Differential Comment Sodium Level 138 Potassium Level 4.1 Chloride Level 106 Carbon Dioxide Level 24.1 Anion Gap 8 Blood Urea Nitrogen 16 Creatinine 0.58 Estimat Glomerular Filtration 170 Rate Random Glucose 104 Calcium Level 10.6 Phosphorus Level 2.7 Abdomen: Non-distended, Non-tender A/P Assessment and Plan 66yo male s/p pancreatic necrosectomy, stable. - continue TPN, advance diet slowly Gold Nicole MD Oct 10, 2016 10:21
[2016-10-10] MEDS: LINEZOLID 600 MG PREMIX 300 ML IV SCH (12:29)
[2016-10-10] MEDS: MICAFUNGIN INJ 100 MG in SODIUM CHLORIDE 0.9% INJ 100 ML IV SCH (12:29)
[2016-10-10] MEDS: SODIUM CHLORIDE 23.4% INJ 38.5 MEQ in WATER STERILE FOR INJ 1,000 ML IV SCH (13:30)
[2016-10-10] MEDS: MORPHINE SULFATE 30 MG/30 ML PCA IV SCH (13:48)
--- NOTE | 2016-10-10 14:09 | HHI.IDPN ---
Note Infectious Disease Note Patient without complaints. Ate some solid food. No nausea. On TPN. Afebrile. No abdominal pain. Presented to [facility] on September 16 with abdominal pain and also nausea and vomiting. Post irrigation and debridement of pancreatic abscess which was a large abscess and also pancreatic necrosectomy. 2nd surgery for same. PAST MEDICAL HISTORY: 1. Hepatitis C. 2. COPD. 3. Diabetes mellitus. 4. Alcohol abuse. 5. Congestive heart failure. 6. COPD. 7. History of appendectomy. 8. Patient underwent pancreatic necrosectomy on August 26, 2016. ALLERGIES: PENICILLIN. MEDICATIONS: 1. Meropenem. 2. Micafungin. 3. Zyvox. OBJECTIVE: Vital Signs Date Time Temp Pulse Resp B/P Pulse Ox O2 Delivery O2 Flow Rate FiO2 10/10/16 14:01 18 10/10/16 13:49 18 10/10/16 13:48 18 10/10/16 12:00 98.6 80 17 104/58 98 10/10/16 08:22 18 10/10/16 08:00 98.1 82 17 165/69 95 10/10/16 06:00 16 10/10/16 00:00 98.9 83 17 142/80 100 10/09/16 22:00 16 10/09/16 20:00 99.0 72 17 117/61 97 10/09/16 16:00 98.4 85 19 111/69 99 10/09/16 10/09/16 10/10/16 15:00 23:00 07:00 Intake Total 1080 ml 3716 ml 1589 ml Output Total 600 ml 400 ml 200 ml Balance 480 ml 3316 ml 1389 ml Intake Oral 1080 ml 360 ml 240 ml IV Total 901 ml 500 ml TPN/PPN 2188 ml 757 ml Lipid 267 ml 92 ml Output Urine Total 600 ml 400 ml 200 ml # Bowel Movements 3 1 Laboratory Tests Test 10/10/16 05:48 White Blood Count 14.0 TH/MM3 Red Blood Count 3.05 MIL/MM3 Hemoglobin 7.2 GM/DL Hematocrit 22.5 % Mean Corpuscular Volume 73.8 FL Mean Corpuscular Hemoglobin 23.4 PG Mean Corpuscular Hemoglobin 31.7 % Concent Red Cell Distribution Width 17.6 % Platelet Count 208 TH/MM3 Mean Platelet Volume 9.5 FL Neutrophils (%) (Auto) 72.3 % Lymphocytes (%) (Auto) 14.2 % Monocytes (%) (Auto) 9.8 % Eosinophils (%) (Auto) 2.8 % Basophils (%) (Auto) 0.9 % Neutrophils # (Auto) 10.1 TH/MM3 Lymphocytes # (Auto) 2.0 TH/MM3 Monocytes # (Auto) 1.4 TH/MM3 Eosinophils # (Auto) 0.4 TH/MM3 Basophils # (Auto) 0.1 TH/MM3 CBC Comment DIFF FINAL Differential Comment Laboratory Tests Test 10/10/16 05:48 Sodium Level 138 MEQ/L Potassium Level 4.1 MEQ/L Chloride Level 106 MEQ/L Carbon Dioxide Level 24.1 MEQ/L Anion Gap 8 MEQ/L Blood Urea Nitrogen 16 MG/DL Creatinine 0.58 MG/DL Estimat Glomerular Filtration 170 ML/MIN Rate Random Glucose 104 MG/DL Calcium Level 10.6 MG/DL Phosphorus Level 2.7 MG/DL IMAGING: Abdomen CT 10/03/16 1526 Signed Impressions: Service Date/Time: Monday, October 03, 2016 15:30 - CONCLUSION: 1. Small residual abscess anterior to the second portion of the duodenum in somewhat of a precarious place to drain percutaneously. There is no obvious extravasation of contrast into this. 2. Nasogastric tube was repositioned into the stomach. Kermit Rollins MD FACR Upper GI Series 10/03/16 0000 Signed Impressions: Service Date/Time: Monday, October 03, 2016 15:01 - CONCLUSION: I see no obvious leak however the examination is limited. Bulk of the Gastrografin tries to reflux back into the esophagus. Kermit Rollins MD FACR Chest X-Ray 10/01/16 0000 Signed Impressions: Service Date/Time: Saturday, October 01, 2016 17:03 - CONCLUSION: 1. Left- sided PICC line has its tip in the superior vena cava in good position. 2. Perihilar atelectasis is stable. Adiel Noland MD Abdomen/Pelvis CT 09/30/16 0000 Signed Impressions: Service Date/Time: Friday, September 30, 2016 18:41 - CONCLUSION: 1. Multiple fluid collections seen associated with the pancreas and the root of the mesentery. The fluid collection associated with the pancreatic tail has increased in size from the prior study while the remaining collections are essentially stable. Hubert Rodrigues Jr., MD Upper GI Series 09/26/16 0600 Signed Impressions: Service Date/Time: Monday, September 26, 2016 08:53 - CONCLUSION: Suspected gastric perforation at the inferior distal aspect of the stomach with a collection seen inferior to the distal stomach and anterior to the duodenum. Mason Monge MD Abdomen/Pelvis CT 09/24/16 0000 Signed Impressions: Service Date/Time: Saturday, September 24, 2016 06:57 - CONCLUSION: 1. The peripancreatic fluid collections adjacent to the tail the pancreas and pancreatic head have decreased in size, as above. Similar to prior examination , the collection adjacent to the pancreatic head contains air and thick fluid like material. 2. There is left lower lobe collapse/atelectasis that is new since the prior CT. Mason Ceja MD PHYSICAL EXAMINATION: GENERAL: No acute distress. Awake alert and oriented. HEENT: Pale sclera. Oropharynx with no visible lesions. NECK: Supple without adenopathy. LUNGS: Decreased clear breath sounds. HEART: Regular rate and rhythm. NL S1S2. ABDOMEN: Bowel sounds diminished. soft, no tenderness. EXTREMITIES: No clubbing or cyanosis or edema. SKIN: No rash. NEUROLOGIC: Alert and oriented. No gross focal findings. PSYCHIATRIC: Calm and cooperative. IMPRESSION: 1. Pancreatic abscess. Status post drainage and pancreatic necrosectomy. (Wound culture has E. coli R to Levaquin. Also Lou. ) Recurrent abdominal fluid collections. Fluid collection now residual. 2. Leukocytosis. Probable related to intraabdominal infection. WBC Decreasing. 3. Penicillin allergy. RECOMMENDATIONS: 1. Stop Zyvox. 2. Stop Micafungin. 3. Stop Meropenem. - E coli resistant and allergy to Penicillin. 4. Start PO Fluconazole. 5. Monitor white blood cell count. If stable would give 1 week of PO fluconazole starting today. Maxime Hernandez MD Oct 10, 2016 14:09
[2016-10-10] MEDS: FLUCONAZOLE 200 MG TAB PO SCH (15:00)
[2016-10-10] MEDS: FAMOTIDINE IV-CENTRAL SCH ×10 (17:21→20:56)
[2016-10-10] MEDS: FOLIC ACID IV-CENTRAL SCH ×10 (17:21→20:56)
[2016-10-10] MEDS: [UNRECOGNIZED DRUG - OTHER] IV-CENTRAL SCH ×10 (17:21→20:56)
[2016-10-10] MEDS: MULTIVITAMIN IV-CENTRAL SCH ×10 (17:21→20:56)
[2016-10-10] MEDS: FAT EMULSION 20% INJ 250 ML (@10 mls/hr) IV-CENTRAL SCH (20:54)
[2016-10-10] MEDS: ENOXAPARIN SODIUM 40 MG/0.4 ML SYRINGE SQ SCH (20:55)
[2016-10-11] VITALS: BP 116/67; PULSE 81; RESP 17; TEMP 98.5; O2SAT 96
[2016-10-11] MEDS: SODIUM CHLOR 0.9% 1000 ML INJ 1,000 ML IV SCH ×2 (02:10→17:06)
[2016-10-11 04:00] VITALS: BP 116/62; PULSE 81; RESP 17; TEMP 97.4; O2SAT 99
[2016-10-11] MEDS: PCA - TOTAL MG MORPHINE DELIVERED PER SHIFT SCH ×3 (05:52→20:44)
[2016-10-11] MEDS: INSULIN ASPART SUPPLEMENTAL SCALE SQ SCH ×3 (06:00→16:20)
[2016-10-11 08:00] VITALS: BP 140/84; PULSE 94; RESP 18; TEMP 99.1; O2SAT 99
[2016-10-11] MEDS: GABAPENTIN 300 MG CAP PO SCH ×3 (08:12→17:06)
[2016-10-11] MEDS: SODIUM CHLORIDE 0.9% FLUSH 10 ML FLUSH IV FLUSH SCH ×3 (08:12→20:45)
[2016-10-11] MEDS: INSULIN DETEMIR 100 UNITS/ML VIAL SQ SCH ×2 (08:12→20:46)
[2016-10-11] MEDS: THIAMINE HCL 100 MG TAB PO SCH (08:12)
[2016-10-11] MEDS: FOLIC ACID 1 MG TAB PO SCH (08:12)
[2016-10-11] MEDS: ROFLUMILAST 500 MCG TAB PO SCH (08:12)
[2016-10-11] MEDS: FLUCONAZOLE 200 MG TAB PO SCH (08:12)
[2016-10-11] MEDS: DOCUSATE SODIUM 50 MG/SENNA 8.6 MG TAB PO SCH ×2 (08:22→20:44)
[2016-10-11] MEDS: BUDESONIDE-FORMOTEROL 160/4.5 MCG INHALER INH SCH ×2 (08:22→20:49)
--- NOTE | 2016-10-11 09:30 | HHI.PR ---
Subjective Subjective Notes Feels well, denies complaints. Objective Vitals/I&O Vital Signs Date Time Temp Pulse Resp B/P Pulse Ox O2 Delivery O2 Flow Rate FiO2 10/11/16 08:00 99.1 94 18 140/84 99 10/07/16 17:28 Nasal Cannula 2.00 Abdomen: Non-distended, Non-tender, Other (retention sutures, lowell intact. No erythema or drainage.) A/P Assessment and Plan Necrotizing pancreatitis s/p operative debridements. Improved. advance diet to soft. El Foster MD Oct 11, 2016 09:30
[2016-10-11] MEDS ORDERED: ALTEPLASE RECOMBINANT 2 MG VIAL IV FLUSH ONE (11:45)
[2016-10-11 11:58] LABS: AUTOMATED NEUTROPHIL # 11.5 TH/MM3 (1.8-7.7); BASOPHIL % 0.3 % (0.0-2.0); EOSINOPHIL # 0.5 TH/MM3 (0-0.4); EOSINOPHIL % 2.9 % (0.0-4.0); HEMATOCRIT 24.9 % (39.0-51.0); HEMO FLAGS DIFF FINAL; LYMPH % 13.5 % (9.0-44.0); LYMPHOCYTE # 2.1 TH/MM3 (1.0-4.8); MEAN CELL VOLUME 74.6 FL (80.0-100.0); MEAN CORPUSCULAR HEMOGLOBIN 23.5 PG (27.0-34.0); MEAN CORPUSCULAR HGB CONC 31.5 % (32.0-36.0); MONO % 9.7 % (0.0-8.0); NEUT % 73.6 % (16.0-70.0); PLATELET COUNT 197 TH/MM3 (150-450); RED BLOOD COUNT 3.34 MIL/MM3 (4.50-5.90); RED CELL DISTRIBUTION WIDTH 17.7 % (11.6-17.2); WHITE BLOOD COUNT 15.7 TH/MM3 (4.0-11.0)
[2016-10-11 12:00] VITALS: BP 131/70; PULSE 86; RESP 17; TEMP 98; O2SAT 96
[2016-10-11 12:15] LABS: ALT (GPT) 19 U/L (12-78); ANION GAP 5 MEQ/L (5-15); AST (GOT) 16 U/L (15-37); BICARBONATE 27.3 MEQ/L (21.0-32.0); BLOOD UREA NITROGEN 16 MG/DL (7-18); CHLORIDE 108 MEQ/L (98-107); GLOMERULAR FILTRATION RATE 170 ML/MIN (>89); MAGNESIUM 1.5 MG/DL (1.5-2.5); POTASSIUM 4.2 MEQ/L (3.5-5.1); SODIUM (NA) 140 MEQ/L (136-145)
[2016-10-11 12:17] LABS: ALKALINE PHOSPHATASE 100 U/L (45-117); TOTAL BILIRUBIN ADULT 0.2 MG/DL (0.2-1.0)
[2016-10-11] MEDS: SODIUM CHLORIDE 23.4% INJ 38.5 MEQ in WATER STERILE FOR INJ 1,000 ML IV SCH (13:30)
[2016-10-11 16:00] VITALS: BP 136/77; PULSE 96; RESP 17; TEMP 98.5; O2SAT 95
--- NOTE | 2016-10-11 17:48 | HHI.PR ---
Subjective Remarks Patient tolerating soft diet abdominal pain controlled denies nausea or vomiting vital signs stable Objective Vitals Vital Signs Date Time Temp Pulse Resp B/P Pulse Ox O2 Delivery O2 Flow Rate FiO2 10/11/16 16:00 98.5 96 17 136/77 95 10/11/16 14:00 18 10/11/16 12:00 98.0 86 17 131/70 96 10/11/16 08:00 99.1 94 18 140/84 99 10/11/16 05:52 16 10/11/16 04:00 97.4 81 17 116/62 99 10/11/16 00:00 98.5 81 17 116/67 96 10/10/16 22:00 18 10/10/16 22:00 16 10/10/16 20:00 96.5 92 17 105/60 100 I/O 10/10/16 10/10/16 10/10/16 10/11/16 10/11/16 10/11/16 07:00 15:00 23:00 07:00 15:00 23:00 Intake Total 1589 ml 1230 ml 240 ml 4132 ml 1731 ml Output Total 200 ml 1000 ml 200 ml 500 ml 1200 ml Balance 1389 ml 230 ml 40 ml 3632 ml 531 ml Intake Oral 240 ml 240 ml 240 ml 240 ml 480 ml IV Total 500 ml 990 ml 1602 ml 505 ml TPN/PPN 757 ml 2048 ml 668 ml Lipid 92 ml 242 ml 78 ml Output Urine Total 200 ml 1000 ml 200 ml 500 ml 1200 ml # Bowel Movements 1 1 2 Result Diagram: 10/11/16 1134 10/11/16 1134 Imaging Last Impressions Abdomen CT 10/03/16 1526 Signed Impressions: Service Date/Time: Monday, October 03, 2016 15:30 - CONCLUSION: 1. Small residual abscess anterior to the second portion of the duodenum in somewhat of a precarious place to drain percutaneously. There is no obvious extravasation of contrast into this. 2. Nasogastric tube was repositioned into the stomach. Kermit Rollins MD FACR Upper GI Series 10/03/16 0000 Signed Impressions: Service Date/Time: Monday, October 03, 2016 15:01 - CONCLUSION: I see no obvious leak however the examination is limited. Bulk of the Gastrografin tries to reflux back into the esophagus. Kermit Rollins MD FACR Chest X-Ray 10/01/16 0000 Signed Impressions: Service Date/Time: Saturday, October 01, 2016 17:03 - CONCLUSION: 1. Left- sided PICC line has its tip in the superior vena cava in good position. 2. Perihilar atelectasis is stable. Adiel Noland MD Abdomen/Pelvis CT 09/30/16 0000 Signed Impressions: Service Date/Time: Friday, September 30, 2016 18:41 - CONCLUSION: 1. Multiple fluid collections seen associated with the pancreas and the root of the mesentery. The fluid collection associated with the pancreatic tail has increased in size from the prior study while the remaining collections are essentially stable. Hubert Rodrigues Jr., MD Objective Remarks GENERAL: This is a very thin, malnourished, in no apparent distress. SKIN: No rashes, warm and dry HEAD: Atraumatic. Normocephalic. EYES: Pupils equal round and reactive. Extraocular motions intact. No scleral icterus. ENT: Nose without bleeding, or drainage, Airway patent. NECK: Trachea midline. Supple CARDIOVASCULAR: Regular rate and rhythm without murmurs, gallops, or rubs. RESPIRATORY: Fair air entry bilaterally. No wheezes, rales, or rhonchi. GASTROINTESTINAL: Abdominal binder observed, Abdomen soft but diffusely tender, mildly distended. Absent bowel sounds. EDER drain with serosanguineous fluid. MUSCULOSKELETAL: Extremities without clubbing, cyanosis, or edema. Pedal pulses appreciated NEUROLOGICAL: Awake and alert. Moves all extremity. Normal speech.no focal neurological deficit Procedures Right IJ central line sp Exploratory laparotomy, irrigation and debridement of peripancreatic abscess and necrosectomy PICC line placement Medications and IVs Current Medications Medications (Trade) Dose Ordered Sig/Tamera Route Start Time Stop Time Status Last Admin (NS Flush) 2 ml UNSCH PRN IV FLUSH 09/16/16 21:00 (NS Flush) 2 ml BID IV FLUSH 09/16/16 21:00 10/11/16 09:00 (Zofran Inj) 4 mg Q6H PRN IVP 09/16/16 21:00 09/30/16 12:54 (Tylenol) 650 mg Q6H PRN PO 09/16/16 21:00 Hold (Roxicodone) 5 mg Q4H PRN PO 09/16/16 21:00 Hold 09/16/16 22:52 (Fátima-Colace) 1 tab BID PO 09/16/16 21:00 10/11/16 08:22 (Milk Of Magnesia Liq) 30 ml Q12H PRN PO 09/16/16 21:00 (Senokot) 17.2 mg Q12H PRN PO 09/16/16 21:00 (Dulcolax Supp) 10 mg DAILY PRN RECTAL 09/16/16 21:00 (Lactulose Liq) 30 ml DAILY PRN PO 09/16/16 21:00 (Zyloprim) 300 mg DAILY PO 09/17/16 09:00 Hold 09/19/16 09:58 (Norvasc) 5 mg BID PO 09/17/16 09:00 Hold 09/19/16 09:58 (Symbicort 160-4.5 Inh) 2 puff Q12HR INH 09/17/16 09:00 10/11/16 08:22 (Catapres) 0.2 mg Q12HR PO 09/17/16 09:00 Hold 09/19/16 09:58 (Neurontin) 600 mg TID PO 09/17/16 09:00 10/11/16 17:06 (Daliresp) 500 mcg DAILY PO 09/17/16 09:00 10/11/16 08:12 (Vitamin B1) 100 mg DAILY PO 09/17/16 09:00 10/11/16 08:12 (Ambien) 5 mg HS PRN PO 09/17/16 02:15 09/18/16 22:57 (Folate) 1 mg DAILY PO 09/17/16 09:00 10/11/16 08:12 (Creon 24-76-120) 2 cap TID PO 09/17/16 13:00 Hold 09/18/16 17:07 (NovoLOG SUPPLEMENTAL SCALE) 1 Q6HR SQ 09/20/16 00:00 10/09/16 17:22 (D50w (Syr) Inj) 50 ml UNSCH PRN IV 09/19/16 19:30 (Glucagon Inj) 1 mg UNSCH PRN OTHER 09/19/16 19:30 Morphine Sulfate 3 mg 3 mg Q1H PRN IV 09/19/16 20:00 Hold 09/20/16 17:15 (Liposyn Iii 20% Inj) 250 ml @ 10 mls/hr Q24H IV-CENTRAL 09/20/16 20:00 10/10/16 20:54 (Ofirmev Inj) 650 mg Q6HR PRN IV 09/20/16 09:30 (Trandate Inj) 10 mg Q4H PRN IV PUSH 09/20/16 09:30 09/22/16 21:09 (Narcan Inj) 0.4 mg UNSCH PRN IV 09/20/16 14:45 (Morphine 1 Mg/ ml MOLECULAR BIOLOGY PROFESSOR) 30 mg UNSCH IV 09/20/16 14:45 10/10/16 13:48 MOLECULAR BIOLOGY PROFESSOR Dosage Infused (Pha) 1 Q8HR .XX 09/20/16 22:00 10/11/16 14:00 (Levemir Inj) 5 units Q12HR SQ 09/21/16 09:00 10/11/16 08:12 (Lovenox Inj) 40 mg Q24H SQ 09/21/16 20:00 10/10/16 20:55 (Vasotec Inj) 1.25 mg Q6H PRN IV PUSH 09/22/16 21:30 09/27/16 13:20 (Catapres-Tts 0.3 Mg Patch.7d) 1 patch Q7D T-DERMAL 09/24/16 11:00 10/08/16 12:10 Miscellaneous Information 1 Q7D T-DERMAL 09/24/16 11:00 10/08/16 11:00 ([facility] Information) PLEASE CONCENTRATE ALL... UNSCH OTHER 09/25/16 09:15 (Chloraseptic Shadia) 1 lozenge UNSCH PRN BUCCAL 09/28/16 16:00 (Chloraseptic [place]) 2 spray Q2H PRN OROPHARYNG 09/30/16 10:00 (NS Flush) See Protocol DAILY IV FLUSH 10/02/16 09:00 10/11/16 08:12 (NS Flush) See Protocol UNSCH PRN IV FLUSH 10/01/16 17:15 (Heparin Central Flush) See Protocol DAILY IV FLUSH 10/02/16 09:00 10/11/16 08:11 (Heparin Central Flush) See Protocol UNSCH PRN IV FLUSH 10/01/16 17:15 (NS Flush) UNSCH PRN IV FLUSH 10/01/16 17:15 Diphenhydramine HCl 25 mg 25 mg Q8HR PRN IV PUSH 10/05/16 11:30 10/07/16 09:34 Multivitamins 10 ml/Folic Acid 1 mg/Famotidine 40 mg/Insulin Human Regular 20 units/ Amino Acids/ Electrolytes/ Dextrose 2,014.4 ml @ 83 mls/hr Q24H IV-CENTRAL 10/06/16 20:00 10/10/16 17:21 Sodium Chloride 38.5 meq/Sterile Water 1,009.625 ml @ 15 mls/hr Q24H IV 10/06/16 13:30 10/08/16 17:38 (NS 1000 ml Inj) 1,000 ml @ 60 mls/hr [id number] IV 10/10/16 09:30 10/11/16 17:06 (Diflucan) 200 mg DAILY PO 10/10/16 15:00 10/11/16 08:12 A/P Problem List: (1) Pancreatic abscess ICD Code: K85.90 Status: Acute (2) Hypercalcemia ICD Code: E83.52 Status: Resolved (3) Leukocytosis ICD Code: D72.829 Status: Acute (4) Alcohol abuse ICD Code: F10.10 Status: Chronic (5) COPD (chronic obstructive pulmonary disease) ICD Code: J44.9 Status: Chronic (6) DM (diabetes mellitus) ICD Code: E11.9 Status: Chronic Assessment and Plan 1. Pancreatic Abscess: recent "pancreas surgery" at by Dr. Mathias approx [address] for [address]ocyst. [address] Abd/Pelvis w/ .1 x 7 cm abscess at site of previous pseudocyst on July 07, complex 7.3 x 3.8 presumed pseudocyst at aortic bifurcation, similar to July 07 images. Patient is sp exploratory laparotomy, irrigation and drainage of pancreatic abscess. Management as per general surgery. continue with pain control- started on sips of clear liquid- continue TPN- repeated blood cultures negative so far. 10/11 Zyvox, meropenem, micafungin discontinued on 10/10 as per ID. patient started on fluconazole. Monitor CBC and if stable give fluconazole for a week as per ID recommendations. Patient is tolerating soft diet which has been advanced today. Advance diet as per surgery. 2. Hypercalcemia: Resolved. 3. Leukocytosis: Stable. Slightly increased to 15.7 K from 14 K. Continue antibiotics as noted above- monitor CBC. 4. Alcohol Abuse: reports h/o alcohol abuse, however states he quit. Continue to monitor for possible withdrawal. 5. COPD: Chronic Respiratory Failure. Stable. Resumed home MDI/Neb. continue O2 to keep o2 sat more than 92%. 6. DM: Sliding scale w/ Accu-Cheks. Hold Metformin. Will continue insulin Levemir and regular in the TPN. 7. HTN: Stable. Continue clonidine patch. 8-hypophosphatemia.; replaced. Continue to monitor and replace as needed. 9- anemia - dilution from IV fluid?- will continue to monitor- hemoglobin stable at 7.8. Discharge Planning Possible DC the next 1-2 days. Pending surgery and ID clearance. Patient will need PT at rehabilitation. legal department manager to assist on placement. Onel Amin MD Oct 11, 2016 17:48
[2016-10-11 20:00] VITALS: BP 129/73; PULSE 83; RESP 20; TEMP 98.6; O2SAT 97
[2016-10-11] MEDS: FOLIC ACID IV-CENTRAL SCH ×5 (20:47)
[2016-10-11] MEDS: FAMOTIDINE IV-CENTRAL SCH ×5 (20:47)
[2016-10-11] MEDS: MULTIVITAMIN IV-CENTRAL SCH ×5 (20:47)
[2016-10-11] MEDS: [UNRECOGNIZED DRUG - OTHER] IV-CENTRAL SCH ×5 (20:47)
[2016-10-11] MEDS: ENOXAPARIN SODIUM 40 MG/0.4 ML SYRINGE SQ SCH (20:48)
[2016-10-11] MEDS: FAT EMULSION 20% INJ 250 ML (@10 mls/hr) IV-CENTRAL SCH (20:48)
[2016-10-12] VITALS (8 sets, daily range): BP systolic 110–146; BP diastolic 70–89; PULSE 72–97; RESP 16–20; TEMP 96.4–98.7; O2SAT 96–98
[2016-10-12] MEDS: INSULIN ASPART SUPPLEMENTAL SCALE SQ SCH ×5 (05:01→22:46)
[2016-10-12] MEDS: PCA - TOTAL MG MORPHINE DELIVERED PER SHIFT SCH ×2 (05:01→14:00)
[2016-10-12 06:52] LABS: BASOPHIL # 0.1 TH/MM3 (0-0.2); BASOPHIL % 0.5 % (0.0-2.0); EOSINOPHIL # 0.6 TH/MM3 (0-0.4); EOSINOPHIL % 4.2 % (0.0-4.0); HEMATOCRIT 22.3 % (39.0-51.0); HEMO FLAGS DIFF FINAL; LYMPH % 14.8 % (9.0-44.0); MEAN CORPUSCULAR HEMOGLOBIN 23.6 PG (27.0-34.0); MEAN CORPUSCULAR HGB CONC 31.5 % (32.0-36.0); MONO % 13.2 % (0.0-8.0); NEUT % 67.3 % (16.0-70.0); PLATELET COUNT 163 TH/MM3 (150-450); RED BLOOD COUNT 2.97 MIL/MM3 (4.50-5.90); WHITE BLOOD COUNT 13.3 TH/MM3 (4.0-11.0)
[2016-10-12 07:12] LABS: ANION GAP 8 MEQ/L (5-15); AST (GOT) 14 U/L (15-37); BICARBONATE 25.3 MEQ/L (21.0-32.0); BLOOD UREA NITROGEN 17 MG/DL (7-18); CHLORIDE 106 MEQ/L (98-107); GLOMERULAR FILTRATION RATE 193 ML/MIN (>89); POTASSIUM 4.3 MEQ/L (3.5-5.1); SODIUM (NA) 139 MEQ/L (136-145)
[2016-10-12 07:13] LABS: ALT (GPT) 16 U/L (12-78)
[2016-10-12 07:15] LABS: ALKALINE PHOSPHATASE 97 U/L (45-117); TOTAL BILIRUBIN ADULT 0.3 MG/DL (0.2-1.0)
--- NOTE | 2016-10-12 07:43 | HHI.PR ---
Subjective Remarks This is a pleasant 66 y/o male who came to ER with abdominal pain on September 16 2016 , found with Pancreatic abscess status post I an D by general surgery, also had pancreatic necrosectomy back on August 26, 2016. as we know he has Hepatitis C, COPD, DM II, Alcohol abuse, followed by ID specialist with Diagnosis of Pancreatic Abscess status post drainage and Pancreatic necrosectomy, wound culture has E coli resistant to Levaquin, also has Lou, recurrent abdominal fluid collections, now residual, he has Penicillin allergy, on Fluconazole by mouth to continue one week started on September 10 2016. was on Zyvox, Micafungin and Meropenem. as per ID specialist okay to discharge to SNF on oral Fluconazole, continue for seven days starting October 10 2016 patient in bed, no nausea, vomit or diarrhea, tolerating General Diet. Objective Vital Signs Date Time Temp Pulse Resp B/P Pulse Ox O2 Delivery O2 Flow Rate FiO2 10/12/16 05:01 22 10/12/16 04:00 98.7 77 20 141/78 97 10/12/16 00:00 98.4 72 20 141/79 98 10/11/16 20:44 18 10/11/16 20:00 98.6 83 20 129/73 97 10/11/16 16:00 98.5 96 17 136/77 95 10/11/16 14:00 18 10/11/16 12:00 98.0 86 17 131/70 96 10/11/16 08:00 99.1 94 18 140/84 99 I/O 10/11/16 10/11/16 10/11/16 10/12/16 10/12/16 10/12/16 07:00 15:00 23:00 07:00 15:00 23:00 Intake Total 4132 ml 1731 ml 1040 ml 1224 ml 120 ml Output Total 500 ml 1200 ml 825 ml 1125 ml Balance 3632 ml 531 ml 215 ml 1224 ml -1005 ml Intake Oral 240 ml 480 ml 360 ml 120 ml IV Total 1602 ml 505 ml 300 ml 480 ml TPN/PPN 2048 ml 668 ml 330 ml 664 ml Lipid 242 ml 78 ml 50 ml 80 ml Output Urine Total 500 ml 1200 ml 825 ml 1125 ml Stool Total 0 ml # Bowel Movements 2 Result Diagram: 10/12/16 0550 10/12/16 0550 Imaging Last Impressions Abdomen CT 10/03/16 1526 Signed Impressions: Service Date/Time: Monday, October 03, 2016 15:30 - CONCLUSION: 1. Small residual abscess anterior to the second portion of the duodenum in somewhat of a precarious place to drain percutaneously. There is no obvious extravasation of contrast into this. 2. Nasogastric tube was repositioned into the stomach. Kermit Rollins MD FACR Upper GI Series 10/03/16 0000 Signed Impressions: Service Date/Time: Monday, October 03, 2016 15:01 - CONCLUSION: I see no obvious leak however the examination is limited. Bulk of the Gastrografin tries to reflux back into the esophagus. Kermit Rollins MD FACR Chest X-Ray 10/01/16 0000 Signed Impressions: Service Date/Time: Saturday, October 01, 2016 17:03 - CONCLUSION: 1. Left- sided PICC line has its tip in the superior vena cava in good position. 2. Perihilar atelectasis is stable. Adiel Noland MD Abdomen/Pelvis CT 09/30/16 0000 Signed Impressions: Service Date/Time: Friday, September 30, 2016 18:41 - CONCLUSION: 1. Multiple fluid collections seen associated with the pancreas and the root of the mesentery. The fluid collection associated with the pancreatic tail has increased in size from the prior study while the remaining collections are essentially stable. Hubert Rodrigues Jr., MD Procedures Right IJ central line sp Exploratory laparotomy, irrigation and debridement of peripancreatic abscess and necrosectomy PICC line placement Other Results Laboratory Tests Test 10/11/16 10/12/16 11:34 05:50 Phosphorus Level 2.8 MG/DL Magnesium Level 1.5 MG/DL White Blood Count 13.3 TH/MM3 Red Blood Count 2.97 MIL/MM3 Hemoglobin 7.0 GM/DL Hematocrit 22.3 % Mean Corpuscular Volume 75.0 FL Mean Corpuscular Hemoglobin 23.6 PG Mean Corpuscular Hemoglobin 31.5 % Concent Red Cell Distribution Width 18.0 % Platelet Count 163 TH/MM3 Mean Platelet Volume 9.5 FL Neutrophils (%) (Auto) 67.3 % Lymphocytes (%) (Auto) 14.8 % Monocytes (%) (Auto) 13.2 % Eosinophils (%) (Auto) 4.2 % Basophils (%) (Auto) 0.5 % Neutrophils # (Auto) 9.0 TH/MM3 Lymphocytes # (Auto) 2.0 TH/MM3 Monocytes # (Auto) 1.8 TH/MM3 Eosinophils # (Auto) 0.6 TH/MM3 Basophils # (Auto) 0.1 TH/MM3 CBC Comment DIFF FINAL Differential Comment Sodium Level 139 MEQ/L Potassium Level 4.3 MEQ/L Chloride Level 106 MEQ/L Carbon Dioxide Level 25.3 MEQ/L Anion Gap 8 MEQ/L Blood Urea Nitrogen 17 MG/DL Creatinine 0.52 MG/DL Estimat Glomerular Filtration 193 ML/MIN Rate Random Glucose 97 MG/DL Calcium Level 10.5 MG/DL Total Bilirubin 0.3 MG/DL Aspartate Amino Transf 14 U/L (AST/SGOT) Alanine Aminotransferase 16 U/L (ALT/SGPT) Alkaline Phosphatase 97 U/L Total Protein 6.1 GM/DL Albumin 2.3 GM/DL Objective Remarks GENERAL: This is a very thin, malnourished, in no apparent distress. SKIN: No rashes, warm and dry HEAD: Atraumatic. Normocephalic. EYES: Pupils equal round and reactive. Extraocular motions intact. No scleral icterus. ENT: Nose without bleeding, or drainage, Airway patent. NECK: Trachea midline. Supple CARDIOVASCULAR: Regular rate and rhythm without murmurs, gallops, or rubs. RESPIRATORY: Fair air entry bilaterally. No wheezes, rales, or rhonchi. GASTROINTESTINAL: Abdominal binder observed, Abdomen soft but diffusely tender, mildly distended. Absent bowel sounds. EDER drain with serosanguineous fluid. MUSCULOSKELETAL: Extremities without clubbing, cyanosis, or edema. Pedal pulses appreciated NEUROLOGICAL: Awake and alert. Moves all extremity. Normal speech.no focal neurological deficit Medications and IVs Current Medications Medications (Trade) Dose Ordered Sig/Tamera Route Start Time Stop Time Status Last Admin (NS Flush) 2 ml UNSCH PRN IV FLUSH 09/16/16 21:00 (NS Flush) 2 ml BID IV FLUSH 09/16/16 21:00 10/11/16 20:45 (Zofran Inj) 4 mg Q6H PRN IVP 09/16/16 21:00 09/30/16 12:54 (Tylenol) 650 mg Q6H PRN PO 6/9/17 21:00 Hold (Roxicodone) 5 mg Q4H PRN PO 09/16/16 21:00 Hold 09/16/16 22:52 (Fátima-Colace) 1 tab BID PO 09/16/16 21:00 10/11/16 20:44 (Milk Of Magnesia Liq) 30 ml Q12H PRN PO 09/16/16 21:00 (Senokot) 17.2 mg Q12H PRN PO 09/16/16 21:00 (Dulcolax Supp) 10 mg DAILY PRN RECTAL 09/16/16 21:00 (Lactulose Liq) 30 ml DAILY PRN PO 09/16/16 21:00 (Zyloprim) 300 mg DAILY PO 09/17/16 09:00 Hold 09/19/16 09:58 (Norvasc) 5 mg BID PO 09/17/16 09:00 Hold 09/19/16 09:58 (Symbicort 160-4.5 Inh) 2 puff Q12HR INH 09/17/16 09:00 10/11/16 20:49 (Catapres) 0.2 mg Q12HR PO 09/17/16 09:00 Hold 09/19/16 09:58 (Neurontin) 600 mg TID PO 09/17/16 09:00 10/11/16 17:06 (Daliresp) 500 mcg DAILY PO 09/17/16 09:00 10/11/16 08:12 (Vitamin B1) 100 mg DAILY PO 09/17/16 09:00 10/11/16 08:12 (Ambien) 5 mg HS PRN PO 09/17/16 02:15 09/18/16 22:57 (Folate) 1 mg DAILY PO 09/17/16 09:00 10/11/16 08:12 (Creon 24-76-120) 2 cap TID PO 09/17/16 13:00 Hold 09/18/16 17:07 (NovoLOG SUPPLEMENTAL SCALE) 1 Q6HR SQ 09/20/16 00:00 10/09/16 17:22 (D50w (Syr) Inj) 50 ml UNSCH PRN IV 09/19/16 19:30 (Glucagon Inj) 1 mg UNSCH PRN OTHER 09/19/16 19:30 Morphine Sulfate 3 mg 3 mg Q1H PRN IV 09/19/16 20:00 Hold 09/20/16 17:15 (Liposyn Iii 20% Inj) 250 ml @ 10 mls/hr Q24H IV-CENTRAL 09/20/16 20:00 10/11/16 20:48 (Ofirmev Inj) 650 mg Q6HR PRN IV 09/20/16 09:30 (Trandate Inj) 10 mg Q4H PRN IV PUSH 09/20/16 09:30 09/22/16 21:09 (Narcan Inj) 0.4 mg UNSCH PRN IV 09/20/16 14:45 (Morphine 1 Mg/ ml [employer]OR) 30 mg UNSCH IV 09/20/16 14:45 10/10/16 13:48 [employer]OR Dosage Infused (Pha) 1 Q8HR .XX 09/20/16 22:00 10/12/16 05:01 (Levemir Inj) 5 units Q12HR SQ 09/21/16 09:00 10/11/16 20:46 (Lovenox Inj) 40 mg Q24H SQ 09/21/16 20:00 10/11/16 20:48 (Vasotec Inj) 1.25 mg Q6H PRN IV PUSH 09/22/16 21:30 09/27/16 13:20 (Catapres-Tts 0.3 Mg Patch.7d) 1 patch Q7D T-DERMAL 09/24/16 11:00 10/08/16 12:10 Miscellaneous Information 1 Q7D T-DERMAL 09/24/16 11:00 10/08/16 11:00 ([facility] [place] [facility] PLEASE CONCENTRATE ALL... UNSCH OTHER 09/25/16 09:15 (Chloraseptic Shadia) 1 lozenge UNSCH PRN BUCCAL 09/28/16 16:00 (Chloraseptic [place]) 2 spray Q2H PRN OROPHARYNG 09/30/16 10:00 (NS Flush) See Protocol DAILY IV FLUSH 10/02/16 09:00 10/11/16 08:12 (NS Flush) See Protocol UNSCH PRN IV FLUSH 10/01/16 17:15 (Heparin Central Flush) See Protocol DAILY IV FLUSH 10/02/16 09:00 10/11/16 08:11 (Heparin Central Flush) See Protocol UNSCH PRN IV FLUSH 10/01/16 17:15 (NS Flush) UNSCH PRN IV FLUSH 10/01/16 17:15 Diphenhydramine HCl 25 mg 25 mg Q8HR PRN IV PUSH 10/05/16 11:30 10/07/16 09:34 Multivitamins 10 ml/Folic Acid 1 mg/Famotidine 40 mg/Insulin Human Regular 20 units/ Amino Acids/ Electrolytes/ Dextrose 2,014.4 ml @ 83 mls/hr Q24H IV-CENTRAL 10/06/16 20:00 10/11/16 20:47 Sodium Chloride 38.5 meq/Sterile Water 1,009.625 ml @ 15 mls/hr Q24H IV 10/06/16 13:30 10/08/16 17:38 (NS 1000 ml Inj) 1,000 ml @ 60 mls/hr [id number] IV 10/10/16 09:30 10/11/16 17:06 (Diflucan) 200 mg DAILY PO 10/10/16 15:00 10/11/16 08:12 A/P Assessment and Plan 1. Pancreatic Abscess: recent pancreatic Surgery by Doctor Mathias approx 2 wks ago for pseudocyst. 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 Patient is sp exploratory laparotomy, irrigation and drainage of pancreatic abscess. Management as per general surgery. continue with pain control- started on sips of clear liquid- continue TPN- repeated blood cultures negative so far. 10/11 Zyvox, meropenem, micafungin discontinued on 10/10 as per ID. patient started on fluconazole. Monitor CBC and if stable give fluconazole for a week as per ID recommendations. Patient is tolerating soft diet which has been advanced today. Advance diet as per surgery. 2. Hypercalcemia: Resolved. 3. Leukocytosis: Stable. Slightly increased to 13.3 4. Alcohol Abuse: reports h/o alcohol abuse, however states he quit. Continue to monitor for possible withdrawal. 5. COPD: Chronic Respiratory Failure. Stable. Resumed home MDI/Neb. continue O2 to keep o2 sat more than 92%. 6. DM: Sliding scale w/ Accu-Cheks. Hold Metformin. has low blood sugars, will continue heart healthy diet and ADA 1800 cals and follow off Levemir due to low blood sugars. 7. HTN: Stable. Continue clonidine patch. 8 hypophosphatemia.; replaced. Continue to monitor and replace as needed. 9 anemia - dilution from IV fluid?- will continue to monitor- hemoglobin decreased to 7 today following. The patient at this time is receiving TPN following General Surgery recommendations to discontinue TPN Okay to Discharge as per ID specialist awaiting final by General Surgery following hemoglobin tomorrow may need Blood transfusion tolerating general diet. Discharge Planning Possible DC the next 1-2 days awaiting final recommendations by General Surgery for discharge. Patient will need PT at rehabilitation. [employer] cryptologic manager to assist on placement. Kartik Root MD Oct 12, 2016 07:43
[2016-10-12] MEDS: BUDESONIDE-FORMOTEROL 160/4.5 MCG INHALER INH SCH ×2 (08:34→21:18)
[2016-10-12] MEDS: DOCUSATE SODIUM 50 MG/SENNA 8.6 MG TAB PO SCH ×2 (08:36→21:00)
[2016-10-12] MEDS: THIAMINE HCL 100 MG TAB PO SCH (08:36)
[2016-10-12] MEDS: SODIUM CHLORIDE 0.9% FLUSH 10 ML FLUSH IV FLUSH SCH ×3 (08:36→21:00)
[2016-10-12] MEDS: GABAPENTIN 300 MG CAP PO SCH ×3 (08:36→17:33)
[2016-10-12] MEDS: FOLIC ACID 1 MG TAB PO SCH (08:37)
[2016-10-12] MEDS: ROFLUMILAST 500 MCG TAB PO SCH (08:37)
[2016-10-12] MEDS: FLUCONAZOLE 200 MG TAB PO SCH (08:37)
[2016-10-12] MEDS: INSULIN DETEMIR 100 UNITS/ML VIAL SQ SCH (08:48)
[2016-10-12] MEDS: SODIUM CHLOR 0.9% 1000 ML INJ 1,000 ML IV SCH (12:14)
[2016-10-12] MEDS ORDERED: ACETAMINOPHEN/HYDROcodone 325 MG/5 MG TAB PO PRN (18:15)
[2016-10-12] MEDS ORDERED: ZOLPIDEM TARTRATE 5 MG TAB PO PRN (18:15)
--- NOTE | 2016-10-12 18:22 | HHI.PR ---
Subjective Subjective Notes feels well, eating regular diet, wants to go home Objective Vitals/I&O Vital Signs Date Time Temp Pulse Resp B/P Pulse Ox O2 Delivery O2 Flow Rate FiO2 10/12/16 16:00 98.6 92 17 144/81 96 Labs Laboratory Tests Test 10/12/16 05:50 White Blood Count 13.3 Red Blood Count 2.97 Hemoglobin 7.0 Hematocrit 22.3 Mean Corpuscular Volume 75.0 Mean Corpuscular Hemoglobin 23.6 Mean Corpuscular Hemoglobin 31.5 Concent Red Cell Distribution Width 18.0 Platelet Count 163 Mean Platelet Volume 9.5 Neutrophils (%) (Auto) 67.3 Lymphocytes (%) (Auto) 14.8 Monocytes (%) (Auto) 13.2 Eosinophils (%) (Auto) 4.2 Basophils (%) (Auto) 0.5 Neutrophils # (Auto) 9.0 Lymphocytes # (Auto) 2.0 Monocytes # (Auto) 1.8 Eosinophils # (Auto) 0.6 Basophils # (Auto) 0.1 CBC Comment DIFF FINAL Differential Comment Sodium Level 139 Potassium Level 4.3 Chloride Level 106 Carbon Dioxide Level 25.3 Anion Gap 8 Blood Urea Nitrogen 17 Creatinine 0.52 Estimat Glomerular Filtration 193 Rate Random Glucose 97 Calcium Level 10.5 Total Bilirubin 0.3 Aspartate Amino Transf 14 (AST/SGOT) Alanine Aminotransferase 16 (ALT/SGPT) Alkaline Phosphatase 97 Total Protein 6.1 Albumin 2.3 Cardiovascular: Regular Lungs: Clear Abdomen: Non-distended, Non-tender Extremities: Perfused A/P Assessment and Plan 66yo male s/p pancreatic necrosectomy, stable. - kenneth regular diet, DC TPN - oral pain meds, DC galley worker - ok to DC home Gold Nicole MD Oct 12, 2016 18:22
[2016-10-12] MEDS: ACETAMINOPHEN/HYDROcodone 325 MG/5 MG TAB PO PRN ×2 (18:39→22:44)
[2016-10-12] MEDS: ENOXAPARIN SODIUM 40 MG/0.4 ML SYRINGE SQ SCH (21:17)
[2016-10-13] VITALS: BP 111/61; PULSE 78; RESP 10; TEMP 97.7; O2SAT 98
[2016-10-13] MEDS: SODIUM CHLOR 0.9% 1000 ML INJ 1,000 ML IV SCH (05:19)
[2016-10-13] MEDS: ACETAMINOPHEN/HYDROcodone 325 MG/5 MG TAB PO PRN ×2 (05:23→09:40)
[2016-10-13] MEDS: INSULIN ASPART SUPPLEMENTAL SCALE SQ SCH ×2 (05:23→09:54)
[2016-10-13 08:00] VITALS: BP 141/83; PULSE 78; RESP 18; TEMP 97.8; O2SAT 98
--- NOTE | 2016-10-13 08:01 | HHI.PR ---
Subjective Remarks This is a pleasant 66 y/o male who came to ER with abdominal pain on September 16 2016 , found with Pancreatic abscess status post I an D by general surgery, also had pancreatic necrosectomy back on August 26, 2016. as we know he has Hepatitis C, COPD, DM II, Alcohol abuse, followed by ID specialist with Diagnosis of Pancreatic Abscess status post drainage and Pancreatic necrosectomy, wound culture has E coli resistant to Levaquin, also has Lou, recurrent abdominal fluid collections, now residual, he has Penicillin allergy, on Fluconazole by mouth to continue one week started on September 10 2016. was on Zyvox, Micafungin and Meropenem. as per ID specialist okay to discharge to SNF on oral Fluconazole, continue for seven days starting October 10 2016 patient in bed, no nausea, vomit or diarrhea, tolerating General Diet. 10/13: Stable in his bedroom okay from General Surgery to discharge Home. no nausea, vomit or diarrhea. Seen in the presence of nurse Miss Thomasna, will remove Central line before going home. Objective Vital Signs Date Time Temp Pulse Resp B/P Pulse Ox O2 Delivery O2 Flow Rate FiO2 10/13/16 00:00 97.7 78 10 111/61 98 10/12/16 23:45 20 10/12/16 20:00 98.7 92 20 110/70 97 10/12/16 16:00 98.6 92 17 144/81 96 10/12/16 14:00 17 10/12/16 14:00 17 10/12/16 12:00 96.4 97 18 140/89 96 10/12/16 08:30 16 10/12/16 08:00 98.6 82 16 146/78 98 I/O 10/12/16 10/12/16 10/12/16 10/13/16 10/13/16 10/13/16 07:00 15:00 23:00 07:00 15:00 23:00 Intake Total 1224 ml 1586 ml 1304 ml 688 ml Output Total 1875 ml 600 ml 575 ml Balance 1224 ml -289 ml 704 ml 113 ml Intake Oral 360 ml 240 ml 240 ml IV Total 480 ml 481 ml 437 ml 448 ml TPN/PPN 664 ml 665 ml 584 ml Lipid 80 ml 80 ml 43 ml Output Urine Total 1875 ml 600 ml 575 ml # Bowel Movements 0 1 Result Diagram: 10/12/16 0550 10/12/16 0550 Imaging Last Impressions Abdomen CT 10/03/16 1526 Signed Impressions: Service Date/Time: Monday, October 03, 2016 15:30 - CONCLUSION: 1. Small residual abscess anterior to the second portion of the duodenum in somewhat of a precarious place to drain percutaneously. There is no obvious extravasation of contrast into this. 2. Nasogastric tube was repositioned into the stomach. Kermit Rollins MD FACR Upper GI Series 10/03/16 0000 Signed Impressions: Service Date/Time: Monday, October 03, 2016 15:01 - CONCLUSION: I see no obvious leak however the examination is limited. Bulk of the Gastrografin tries to reflux back into the esophagus. Kermit Rollins MD FACR Chest X-Ray 10/01/16 0000 Signed Impressions: Service Date/Time: Saturday, October 01, 2016 17:03 - CONCLUSION: 1. Left- sided PICC line has its tip in the superior vena cava in good position. 2. Perihilar atelectasis is stable. Adiel Noland MD Abdomen/Pelvis CT 09/30/16 0000 Signed Impressions: Service Date/Time: Friday, September 30, 2016 18:41 - CONCLUSION: 1. Multiple fluid collections seen associated with the pancreas and the root of the mesentery. The fluid collection associated with the pancreatic tail has increased in size from the prior study while the remaining collections are essentially stable. Hubert Rodrigues Jr., MD Procedures Right IJ central line sp Exploratory laparotomy, irrigation and debridement of peripancreatic abscess and necrosectomy PICC line placement Other Results Laboratory Tests Test 10/11/16 10/12/16 11:34 05:50 Phosphorus Level 2.8 MG/DL Magnesium Level 1.5 MG/DL White Blood Count 13.3 TH/MM3 Red Blood Count 2.97 MIL/MM3 Hemoglobin 7.0 GM/DL Hematocrit 22.3 % Mean Corpuscular Volume 75.0 FL Mean Corpuscular Hemoglobin 23.6 PG Mean Corpuscular Hemoglobin 31.5 % Concent Red Cell Distribution Width 18.0 % Platelet Count 163 TH/MM3 Mean Platelet Volume 9.5 FL Neutrophils (%) (Auto) 67.3 % Lymphocytes (%) (Auto) 14.8 % Monocytes (%) (Auto) 13.2 % Eosinophils (%) (Auto) 4.2 % Basophils (%) (Auto) 0.5 % Neutrophils # (Auto) 9.0 TH/MM3 Lymphocytes # (Auto) 2.0 TH/MM3 Monocytes # (Auto) 1.8 TH/MM3 Eosinophils # (Auto) 0.6 TH/MM3 Basophils # (Auto) 0.1 TH/MM3 CBC Comment DIFF FINAL Differential Comment Sodium Level 139 MEQ/L Potassium Level 4.3 MEQ/L Chloride Level 106 MEQ/L Carbon Dioxide Level 25.3 MEQ/L Anion Gap 8 MEQ/L Blood Urea Nitrogen 17 MG/DL Creatinine 0.52 MG/DL Estimat Glomerular Filtration 193 ML/MIN Rate Random Glucose 97 MG/DL Calcium Level 10.5 MG/DL Total Bilirubin 0.3 MG/DL Aspartate Amino Transf 14 U/L (AST/SGOT) Alanine Aminotransferase 16 U/L (ALT/SGPT) Alkaline Phosphatase 97 U/L Total Protein 6.1 GM/DL Albumin 2.3 GM/DL Objective Remarks GENERAL: This is a very thin, malnourished, in no apparent distress. SKIN: No rashes, warm and dry HEAD: Atraumatic. Normocephalic. EYES: Pupils equal round and reactive. Extraocular motions intact. No scleral icterus. ENT: Nose without bleeding, or drainage, Airway patent. NECK: Trachea midline. Supple CARDIOVASCULAR: Regular rate and rhythm without murmurs, gallops, or rubs. RESPIRATORY: Fair air entry bilaterally. No wheezes, rales, or rhonchi. GASTROINTESTINAL: Abdominal binder observed. no pain or distension MUSCULOSKELETAL: Extremities without clubbing, cyanosis, or edema. Pedal pulses appreciated NEUROLOGICAL: Awake and alert. Moves all extremity. Normal speech.no focal neurological deficit Medications and IVs Current Medications Medications (Trade) Dose Ordered Sig/Tamera Route Start Time Stop Time Status Last Admin (NS Flush) 2 ml UNSCH PRN IV FLUSH 09/16/16 21:00 (NS Flush) 2 ml BID IV FLUSH 09/16/16 21:00 10/12/16 21:00 (Zofran Inj) 4 mg Q6H PRN IVP 09/16/16 21:00 09/30/16 12:54 (Tylenol) 650 mg Q6H PRN PO 09/16/16 21:00 Hold (Fátima-Colace) 1 tab BID PO 09/16/16 21:00 10/12/16 08:36 (Milk Of Magnesia Liq) 30 ml Q12H PRN PO 09/16/16 21:00 (Senokot) 17.2 mg Q12H PRN PO 09/16/16 21:00 (Dulcolax Supp) 10 mg DAILY PRN RECTAL 09/16/16 21:00 (Lactulose Liq) 30 ml DAILY PRN PO 09/16/16 21:00 (Zyloprim) 300 mg DAILY PO 09/17/16 09:00 Hold 09/19/16 09:58 (Norvasc) 5 mg BID PO 09/17/16 09:00 Hold 09/19/16 09:58 (Symbicort 160-4.5 Inh) 2 puff Q12HR INH 09/17/16 09:00 10/12/16 21:18 (Catapres) 0.2 mg Q12HR PO 09/17/16 09:00 Hold 09/19/16 09:58 (Neurontin) 600 mg TID PO 09/17/16 09:00 10/12/16 17:33 (Daliresp) 500 mcg DAILY PO 09/17/16 09:00 10/12/16 08:37 (Vitamin B1) 100 mg DAILY PO 09/17/16 09:00 10/12/16 08:36 (Folate) 1 mg DAILY PO 09/17/16 09:00 10/12/16 08:37 (Creon 24-76-120) 2 cap TID PO 09/17/16 13:00 Hold 09/18/16 17:07 (NovoLOG SUPPLEMENTAL SCALE) 1 Q6HR SQ 09/20/16 00:00 10/09/16 17:22 (D50w (Syr) Inj) 50 ml UNSCH PRN IV 09/19/16 19:30 (Glucagon Inj) 1 mg UNSCH PRN OTHER 09/19/16 19:30 (Morphine Inj) 3 mg Q1H PRN IV 09/19/16 20:00 Hold 09/20/16 17:15 (Ofirmev Inj) 650 mg Q6HR PRN IV 09/20/16 09:30 (Trandate Inj) 10 mg Q4H PRN IV PUSH 09/20/16 09:30 09/22/16 21:09 (Lovenox Inj) 40 mg Q24H SQ 09/21/16 20:00 10/12/16 21:17 (Vasotec Inj) 1.25 mg Q6H PRN IV PUSH 09/22/16 21:30 09/27/16 13:20 (Catapres-Tts 0.3 Mg Patch.7d) 1 patch Q7D T-DERMAL 09/24/16 11:00 10/08/16 12:10 Miscellaneous Information 1 Q7D T-DERMAL 09/24/16 11:00 10/08/16 11:00 ([facility] [place] [facility] [place] PLEASE CONCENTRATE ALL... UNSCH OTHER 09/25/16 09:15 (Chloraseptic Shadia) 1 lozenge UNSCH PRN BUCCAL 09/28/16 16:00 (Chloraseptic [place]) 2 spray Q2H PRN OROPHARYNG 09/30/16 10:00 (NS Flush) See Protocol DAILY IV FLUSH 10/02/16 09:00 10/12/16 08:36 (NS Flush) See Protocol UNSCH PRN IV FLUSH 10/01/16 17:15 (Heparin Central Flush) See Protocol DAILY IV FLUSH 10/02/16 09:00 10/12/16 08:36 (Heparin Central Flush) See Protocol UNSCH PRN IV FLUSH 10/01/16 17:15 (NS Flush) UNSCH PRN IV FLUSH 10/01/16 17:15 Diphenhydramine HCl 25 mg 25 mg Q8HR PRN IV PUSH 10/05/16 11:30 10/07/16 09:34 (NS 1000 ml Inj) 1,000 ml @ 60 mls/hr [id number] IV 10/10/16 09:30 10/13/16 05:19 (Diflucan) 200 mg DAILY PO 10/10/16 15:00 10/12/16 08:37 (Snyder 5-325 Mg) 1 tab Q4H PRN PO 10/12/16 18:15 ([place] 5-325 Mg) 2 tab Q4H PRN PO 10/12/16 18:15 10/13/16 05:23 (Ambien) 5 mg HS PRN PO 10/12/16 18:15 10/13/16 00:19 A/P Assessment and Plan 1. Pancreatic Abscess: recent pancreatic Surgery by Doctor Mey approx 2 wks ago for pseudocyst. 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 Patient is sp exploratory laparotomy, irrigation and drainage of pancreatic abscess. Management as per general surgery. continue with pain control- started on sips of clear liquid- continue TPN- repeated blood cultures negative so far. 10/11 Zyvox, meropenem, micafungin discontinued on 10/10 as per ID. patient started on fluconazole. Monitor CBC and if stable give fluconazole for a week as per ID recommendations. Patient is tolerating soft diet which has been advanced today. Advance diet as per surgery. also recommended to advance diet and discharge home today. will need to follow with General Surgery Doctor Corey as outpatient will go home with [facility] to continue Wound care. 2. Hypercalcemia: Resolved. 3. Leukocytosis: Stable. Slightly increased to 13.3 as per ID to discharge home on Fluconazole to complete seven days started on October 10 2016 will continue until October 17 2016. 4. Alcohol Abuse: reports h/o alcohol abuse, however states he quit. Continue to monitor for possible withdrawal. 5. COPD: Chronic Respiratory Failure. Stable. Resumed home MDI/Neb. continue O2 to keep o2 sat more than 92%. 6. DM: Sliding scale w/ Accu-Cheks. Hold Metformin. has low blood sugars, will continue heart healthy diet and ADA 1800 cals and follow off Levemir due to low blood sugars. 7. HTN: Stable. Continue clonidine patch. 8 hypophosphatemia.; replaced. Continue to monitor and replace as needed. 9 anemia - dilution from IV fluid?- will continue to monitor- hemoglobin decreased to 7 today following. Advance diet to Regular diet and okay to discharge Home. Okay to Discharge as per ID specialist following hemoglobin tomorrow may need Blood transfusion tolerating general diet. Discharge Planning Possible DC the next 1-2 days awaiting final recommendations by General Surgery for discharge. Patient will need PT at rehabilitation. manager fine to assist on placement. Kartik Root MD Oct 13, 2016 08:01
[2016-10-13] MEDS ORDERED: AMBI5TAB PO (08:10)
[2016-10-13] MEDS ORDERED: HYDR-3516 PO (08:10)
[2016-10-13] MEDS ORDERED: DIFL200T PO (08:10)
--- NOTE | 2016-10-13 08:11 | HHI.FF ---
Face to Face Verification Diagnosis: (1) COPD (chronic obstructive pulmonary disease) (2) Toxic metabolic encephalopathy (3) Pancreatic abscess Physical Therapy Order: Evaluate and Treat, Improve ambulation, Strength and gait training Home Health Nursing Order: Medical education Signs/symptoms of disease process Diabetic education Medication education-adverse effect Wound care and dressing changes Nursing assessment with vital signs I have seen patient Julian Marti on 10/13/16. My clinical findings support the need for the requested home health care services because: Ltd mobility - disease progression I certify that my clinical findings support that this patient is homebound because: Unsafe to leave home unassisted Kartik Root MD Oct 13, 2016 08:11
[2016-10-13] MEDS: ROFLUMILAST 500 MCG TAB PO SCH (08:12)
[2016-10-13] MEDS: FLUCONAZOLE 200 MG TAB PO SCH (08:12)
[2016-10-13] MEDS: THIAMINE HCL 100 MG TAB PO SCH (08:12)
[2016-10-13] MEDS: FOLIC ACID 1 MG TAB PO SCH (08:13)
[2016-10-13] MEDS: DOCUSATE SODIUM 50 MG/SENNA 8.6 MG TAB PO SCH (08:13)
[2016-10-13] MEDS: BUDESONIDE-FORMOTEROL 160/4.5 MCG INHALER INH SCH (08:13)
[2016-10-13] MEDS: GABAPENTIN 300 MG CAP PO SCH (08:13)
[2016-10-13] MEDS: SODIUM CHLORIDE 0.9% FLUSH 10 ML FLUSH IV FLUSH SCH ×2 (08:13→08:15)
[2016-10-13] MEDS ORDERED: WALKER WHEELS/F1 MIS (08:20)
--- NOTE | 2016-10-13 08:22 | HHI.DS ---
Discharge Summary Admission Date Sep 16, 2016 at 20:54 Discharge Date: Oct 13, 2016 Admitting Diagnosis Abdominal abscess. Nausea/vomiting (1) Pancreatic abscess ICD Code: K85.90 Diagnosis: Principal (2) Hypercalcemia ICD Code: E83.52 Diagnosis: Principal (3) Leukocytosis ICD Code: D72.829 Diagnosis: Principal (4) Alcohol abuse ICD Code: F10.10 Diagnosis: Principal (5) COPD (chronic obstructive pulmonary disease) ICD Code: J44.9 Diagnosis: Principal (6) DM (diabetes mellitus) ICD Code: E11.9 Diagnosis: Principal Procedures Right IJ central line sp Exploratory laparotomy, irrigation and debridement of peripancreatic abscess and necrosectomy PICC line placement Brief History - From Admission This is a 66-year-old male with a PMH of A. fib, COPD, DM, CHF (Echo 01/31/14 w / EF 60-65%), Pancreatitis, h/o Alcohol Abuse, h/o Tobacco Abuse and h/o Cocaine Abuse who presented to the ER w/ complaints of abdominal pain x4 days. States he had "pancreas surgery" at approx 2wks ago by Dr. Mathias for apparent pancreatic cyst. Had been doing fine post-procedure until about 4 days ago when he started to have abdominal pain, nausea and intermittent vomiting. Denies fever, chills or diarrhea. On arrival, BP 138/78, HR 86, O2 sat 98% on RA, Afebrile. WBC 11.3. Hgb 9.9, previously 9.3 on 07/08/16. INR 1.1. CT Abd/Pelvis w/ 11.1 x 7 cm presumed abscess in the upper anterior abdomen at site of previous larger pseudocyst seen on July 07, complex 7.3 x 3.8 cm pseudocyst at the root of mesentery above aortic bifurcation similar to appearance July 07. GI consulted by ER physician, plan is for drainage by IR w / possible transfer back to if drainage unsuccessful. S/p Flagyl/Azactam in ER. CBC/BMP: 10/12/16 0550 10/12/16 0550 Significant Findings Laboratory Tests Test 10/11/16 10/12/16 11:34 05:50 White Blood Count 15.7 TH/MM3 13.3 TH/MM3 (4.0-11.0) (4.0-11.0) Red Blood Count 3.34 MIL/MM3 2.97 MIL/MM3 (4.50-5.90) (4.50-5.90) Hemoglobin 7.8 GM/DL 7.0 GM/DL (13.0-17.0) (13.0-17.0) Hematocrit 24.9 % 22.3 % (39.0-51.0) (39.0-51.0) Mean Corpuscular Volume 74.6 FL 75.0 FL (80.0-100.0) (80.0-100.0) Mean Corpuscular Hemoglobin 23.5 PG 23.6 PG (27.0-34.0) (27.0-34.0) Mean Corpuscular Hemoglobin 31.5 % 31.5 % Concent (32.0-36.0) (32.0-36.0) Red Cell Distribution Width 17.7 % 18.0 % (11.6-17.2) (11.6-17.2) Neutrophils (%) (Auto) 73.6 % (16.0-70.0) Monocytes (%) (Auto) 9.7 % (0.0-8.0) 13.2 % (0.0-8.0) Neutrophils # (Auto) 11.5 TH/MM3 9.0 TH/MM3 (1.8-7.7) (1.8-7.7) Monocytes # (Auto) 1.5 TH/MM3 1.8 TH/MM3 (0-0.9) (0-0.9) Eosinophils # (Auto) 0.5 TH/MM3 0.6 TH/MM3 (0-0.4) (0-0.4) Chloride Level 108 MEQ/L (98-107) Creatinine 0.58 MG/DL 0.52 MG/DL (0.60-1.30) (0.60-1.30) Calcium Level 10.3 MG/DL 10.5 MG/DL (8.5-10.1) (8.5-10.1) Albumin 2.4 GM/DL 2.3 GM/DL (3.4-5.0) (3.4-5.0) Eosinophils (%) (Auto) 4.2 % (0.0-4.0) Aspartate Amino Transf 14 U/L (15-37) (AST/SGOT) Total Protein 6.1 GM/DL (6.4-8.2) Imaging Last Impressions Abdomen CT 10/03/16 1526 Signed Impressions: Service Date/Time: Monday, October 03, 2016 15:30 - CONCLUSION: 1. Small residual abscess anterior to the second portion of the duodenum in somewhat of a precarious place to drain percutaneously. There is no obvious extravasation of contrast into this. 2. Nasogastric tube was repositioned into the stomach. Kermit Rollins MD FACR Upper GI Series 10/03/16 0000 Signed Impressions: Service Date/Time: Monday, October 03, 2016 15:01 - CONCLUSION: I see no obvious leak however the examination is limited. Bulk of the Gastrografin tries to reflux back into the esophagus. Kermit Rollins MD FACR Chest X-Ray 10/01/16 0000 Signed Impressions: Service Date/Time: Saturday, October 01, 2016 17:03 - CONCLUSION: 1. Left- sided PICC line has its tip in the superior vena cava in good position. 2. Perihilar atelectasis is stable. Adiel Noland MD Abdomen/Pelvis CT 09/30/16 0000 Signed Impressions: Service Date/Time: Friday, September 30, 2016 18:41 - CONCLUSION: 1. Multiple fluid collections seen associated with the pancreas and the root of the mesentery. The fluid collection associated with the pancreatic tail has increased in size from the prior study while the remaining collections are essentially stable. Hubert Rodrigues Jr., MD PE at Discharge GENERAL: This is a very thin, malnourished, in no apparent distress. SKIN: No rashes, warm and dry HEAD: Atraumatic. Normocephalic. EYES: Pupils equal round and reactive. Extraocular motions intact. No scleral icterus. ENT: Nose without bleeding, or drainage, Airway patent. NECK: Trachea midline. Supple CARDIOVASCULAR: Regular rate and rhythm without murmurs, gallops, or rubs. RESPIRATORY: Fair air entry bilaterally. No wheezes, rales, or rhonchi. GASTROINTESTINAL: Abdominal binder observed. no pain or distension MUSCULOSKELETAL: Extremities without clubbing, cyanosis, or edema. Pedal pulses appreciated NEUROLOGICAL: Awake and alert. Moves all extremity. Normal speech.no focal neurological deficit Hospital Course This is a pleasant 66 y/o male who came to ER with abdominal pain on September 16 2016 , found with Pancreatic abscess status post I an D by general surgery, also had pancreatic necrosectomy back on August 26, 2016. as we know he has Hepatitis C, COPD, DM II, Alcohol abuse, followed by ID specialist with Diagnosis of Pancreatic Abscess status post drainage and Pancreatic necrosectomy, wound culture has E coli resistant to Levaquin, also has Lou, recurrent abdominal fluid collections, now residual, he has Penicillin allergy, on Fluconazole by mouth to continue one week started on September 10 2016. was on Zyvox, Micafungin and Meropenem. as per ID specialist okay to discharge to SNF on oral Fluconazole, continue for seven days starting October 10 2016 patient in bed, no nausea, vomit or diarrhea, tolerating General Diet. 10/13: Stable in his bedroom okay from General Surgery to discharge Home. no nausea, vomit or diarrhea. Seen in the presence of nurse Miss Lundberg, will remove Central line before going home. Assessment and Plan 1. Pancreatic Abscess: recent pancreatic Surgery by Doctor Mathias approx [address] ago for pseudocyst. CT Abd/Pelvis w/ .1 x 7 cm abscess at site of previous pseudocyst on July 07, complex 7.3 x 3.8 presumed pseudocyst at aortic bifurcation, similar to July 07 images. Patient is sp exploratory laparotomy, irrigation and drainage of pancreatic abscess. Management as per general surgery. continue with pain control- started on sips of clear liquid- continue TPN- repeated blood cultures negative so far. 10/11 Zyvox, meropenem, micafungin discontinued on 10/10 as per ID. patient started on fluconazole. Monitor CBC and if stable give fluconazole for a week as per ID recommendations. Patient is tolerating soft diet which has been advanced today. Advance diet as per surgery. also recommended to advance diet and discharge home today. will need to follow with General Surgery Doctor Corey as outpatient will go home with [facility] to continue Wound care. 2. Hypercalcemia: Resolved. 3. Leukocytosis: Stable. Slightly increased to 13.3 as per ID to discharge home on Fluconazole to complete seven days started on October 10 2016 will continue until October 17 2016. 4. Alcohol Abuse: reports h/o alcohol abuse, however states he quit. Continue to monitor for possible withdrawal. 5. COPD: Chronic Respiratory Failure. Stable. Resumed home MDI/Neb. continue O2 to keep o2 sat more than 92%. 6. DM: Sliding scale w/ Accu-Cheks. Hold Metformin. has low blood sugars, will continue heart healthy diet and ADA 1800 cals and follow off Levemir due to low blood sugars. 7. HTN: Stable. Continue clonidine patch. 8 hypophosphatemia.; replaced. Continue to monitor and replace as needed. 9 anemia - dilution from IV fluid?- will continue to monitor- hemoglobin decreased to 7 today following. Advance diet to Regular diet and okay to discharge Home. Okay to Discharge as per ID specialist following hemoglobin tomorrow may need Blood transfusion tolerating general diet. Pt Condition on Discharge: Good Discharge Disposition: Disch w/ Home Health Serv Discharge Time: > 30 minutes Discharge Instructions DIET: Follow Instructions for: Heart Healthy Diet, Diabetic Diet Activities you can perform: Regular-No Restrictions Kartik Root MD Oct 13, 2016 08:22
[2016-10-13] MEDS ORDERED: NU-IRON PO (08:23)
== END 2016-10-13 12:04 | disposition home health service (06) | DRG 406 ==
LOC: NEPE 18:25 → NEDA 20:54 → N04A 22:32 → N03B 09-19 18:49 → N03A 09-19 20:38 → N07A 09-22 22:26
PROVIDERS: ADMIT Internal Medicine; ATTEND Internal Medicine
PROC: 03HY32Z Insertion of Monitoring Device into Upper Artery, Percutaneous Approach (ICD-10-PCS; 2016-09-19)
PROC: 4A133B1 Monitoring of Arterial Pressure, Peripheral, Percutaneous Approach (ICD-10-PCS; 2016-09-19)
PROC: 4A133J1 Monitoring of Arterial Pulse, Peripheral, Percutaneous Approach (ICD-10-PCS; 2016-09-19)
PROC: 0FBG0ZZ Excision of Pancreas, Open Approach (ICD-10-PCS; principal; 2016-09-19 17:04)
DX: K85.92 Acute pancreatitis with infected necrosis, unspecified (principal); K86.3 Pseudocyst of pancreas; J96.10 Chronic respiratory failure, unspecified whether with hypoxia or hypercapnia; E46 Unspecified protein-calorie malnutrition; E87.0 Hyperosmolality and hypernatremia; R18.8 Other ascites; I50.9 Heart failure, unspecified; I11.0 Hypertensive heart disease with heart failure; E83.39 Other disorders of phosphorus metabolism; K86.2 Cyst of pancreas; I48.91 Unspecified atrial fibrillation; E83.52 Hypercalcemia; G40.909 Epilepsy, unspecified, not intractable, without status epilepticus; E87.5 Hyperkalemia; F32.9 Major depressive disorder, single episode, unspecified; J44.9 Chronic obstructive pulmonary disease, unspecified; E11.9 Type 2 diabetes mellitus without complications; Z87.891 Personal history of nicotine dependence; E87.6 Hypokalemia; Z88.0 Allergy status to penicillin; G47.30 Sleep apnea, unspecified; M10.9 Gout, unspecified; M19.90 Unspecified osteoarthritis, unspecified site; Z93.1 Gastrostomy status; B19.20 Unspecified viral hepatitis C without hepatic coma; L29.9 Pruritus, unspecified; B96.20 Unspecified Escherichia coli [E. coli] as the cause of diseases classified elsewhere
CPT/HCPCS: 36569; 71010; 74150; 74176; 74177; 74240; 76937; 80048; 80053; 80202; 81001; 82948; 83605; 83690; 83735; 84100; 84132; 84478; 85007; 85025; 85027; 85610; 85730; 86850; 86900; 86901; 86920; 87015; 87040; 87070; 87102; 87116; 87205; 87206; 87449; 93005; 94640; 94664; 96361; 96374; 96375; C9113; J0456; J0744; J1170; J1200; J1335; J1450; J1642; J1650; J1815; J1817; J2020; J2185; J2248; J2250; J2270; J2370; J2405; J2997; J3010; J3370; J3475; J3480; J7030; J7040; J7050; J7120; J7613; Q9963; Q9967

== ENCOUNTER 2016-12-09 16:15 | Emergency (ER) | payer OTHER, MEDICAID ==
[~2016-12-09] VITALS: Ht 165.1 cm; Wt 64.0 kg
[~2016-12-09 16:15] MED LIST changes: +ALLO300T2 PO; -AMLO2.5T PO; +AMLO5TAB2 PO; -BENT20TA PO; -BUME1TAB PO; +CLON0.2D T-DERMAL; +DIFL200T PO; -DILA100C PO; +FLUT1INH INH; +FOLIC ACID 1MG PO; +GABA600T PO; +HYDR-3516 PO; +METF500T PO; +NU-IRON PO; -OMEP40CA2 PO; -OXYC-392 PO; -OXYC1CON3 NG; -POTA20TA5 PO; -REGL5TAB PO; -SPIRCAP INH; +VIAG50TA PO; +VITA100T54 PO; +WALKER WHEELS/F1 MIS; -[UNRECOGNIZED DRUG - CODE] PEG
[2016-12-09 16:19] VITALS: BP 140/91; PULSE 80; RESP 18; TEMP 98.7; O2SAT 97
== END 2016-12-09 17:41 | disposition left against medical advice (07) ==
LOC: NED 16:15
DX: Z03.89 Encounter for observation for other suspected diseases and conditions ruled out (principal)
CPT/HCPCS: 99281

== ENCOUNTER 2016-12-13 10:27 | Inpatient (IN) | payer OTHER, MEDICARE ==
[2016-12-13] MEDS ORDERED: SODIUM CHLOR 0.9% 1000 ML INJ 1,000 ML IV SCH (10:54)
[2016-12-13 11:00] VITALS: BP 117/57; PULSE 78; RESP 20; O2SAT 99
[2016-12-13] MEDS ORDERED: MORPHINE SULFATE 4 MG/ML INJ IV PUSH ONE (11:00)
[2016-12-13] MEDS ORDERED: SODIUM CHLORIDE 0.9% FLUSH 10 ML FLUSH IV FLUSH PRN ×2 (11:00→14:30)
[2016-12-13] MEDS ORDERED: ONDANSETRON HCL 4 MG/2 ML VIAL IVP ONE (11:00)
[2016-12-13] MEDS ORDERED: FOLI1TAB6 PO (11:05)
--- NOTE | 2016-12-13 11:19 | PD ---
HPI Chief Complaint: Abnormal Results Time Seen by Provider: 10:54 Travel History International Travel<30 days: No Contact w/Intl Traveler<30days: No Traveled to known affect area: No History of Present Illness HPI 66-year-old male with history of pancreatic pseudocyst status post resection 2 months ago, history of anemia, currently taking iron on his own, presents to the ER today sent by his primary care physician, apparently has complained of several days history of weakness and syncopal episodes, dyspnea on exertion, and had blood work done by primary care physician which shows significant anemia with hemoglobin of 7. He states his stools have been dark but has not had any bleeding. He has ongoing left upper quadrant abdominal pain since the surgery. Modifying Factors: None Associated Signs & Symptoms: General weakness, syncopal episodes, symptomatic anemia Risk Factors: None PFSH Past Medical History Hx Anticoagulant Therapy: Yes Anemia: No Arthritis: Yes Asthma: Yes Atrial Fibrillation: Yes Autoimmune Disease: No Blood Disorders: No Anxiety: No Depression: Yes Heart Rhythm Problems: Yes Cancer: No Cardiovascular Problems: Yes High Cholesterol: No Chemotherapy: No Chest Pain: Yes Congestive Heart Failure: Yes COPD: Yes Cerebrovascular Accident: No Diabetes: Yes Patient Takes Glucophage: Yes Diminished Hearing: No Endocrine: Yes Gastrointestinal Disorders: No GERD: No Glaucoma: No Gout: Yes Genitourinary: No Headaches: Yes Hepatitis: No Hiatal Hernia: No Heparin Induced Thrombocytopen: No Hypertension: Yes Immune Disorder: No Implanted Vascular Access Dvce: No Kidney Stones: No Musculoskeletal: No Neurologic: No Psychiatric: No Reproductive: No Respiratory: Yes (COPD) Immunizations Current: No Migraines: No Myocardial Infarction: No Radiation Therapy: No Renal Failure: No Seizures: Yes Sickle Cell Disease: No Sleep Apnea: Yes Thyroid Disease: No Ulcer: No Tetanus Vaccination: Unknown ?: Not Past Surgical History Abdominal Surgery: Yes (G-tube insertion, Cyst removed from pancreas) AICD: No Appendectomy: Yes Arteriovenous Shunt: No Body Medical Devices: G-tube Cardiac Surgery: No Cholecystectomy: No Ear Surgery: No Endocrine Surgery: No Eye Surgery: No Genitourinary Surgery: No Gynecologic Surgery: No Insulin Pump: No Joint Replacement: No Neurologic Surgery: No Oral Surgery: Yes (Tooth pulled) Pacemaker: No Thoracic Surgery: No Other Surgery: Yes (appendectomy, bone spur resection, ) Social History Alcohol Use: No (prior ETOH abuse) Tobacco Use: No (quit 2 months ago) Substance Use: No Allergies-Medications (Allergen,Severity, Reaction): Coded Allergies: penicillin G (Unverified Allergy, Severe, HIVES, 12/13/16) Reported Meds & Prescriptions Reported Meds & Active Scripts Active Poly-Iron 150 (Polysaccharide Iron Complex) 150 Mg Cap 150 Mg PO Q12HR Daliresp (Roflumilast) 500 Mcg Tab 500 Mcg PO DAILY 30 Days Reported Mobic (Meloxicam) 7.5 Mg Tab 7.5 Mg PO BID Losartan-Hydrochlorothiazide 100-25 Mg Tab 1 Tab PO DAILY Potassium Chloride ER (Potassium Chloride) 10 Meq Cap 10 Meq PO DAILY Ensure Enlive (Lactose-Reduced Food) 0.08 Gram-1.5 Kcal/Ml Liquid 1 Can PO TID Ambien (Zolpidem Tartrate) 5 Mg Tab 5 Mg PO HS Reglan (Metoclopramide HCl) 5 Mg Tab 5 Mg PO BID PRN Lortab (Hydrocodone-Acetaminophen) 10-325 Mg Tab 1 Tab PO Q8HR PRN Proair Hfa 8.5 GM Inh (Albuterol Sulfate) 90 Mcg/Act Aer 2 Puff INH Q4-6H PRN 108 mcg/actuation Viagra (Sildenafil Citrate) 50 Mg Tab 50 Mg PO DIRECTED PRN Take 1 tablet (50mg) 30 minutes prior to sexual activity Allopurinol 300 Mg Tab 300 Mg PO DAILY Metformin (Metformin HCl) 500 Mg Tab 500 Mg PO DAILY With a meal Gabapentin 600 Mg Tab 600 Mg PO TID Vitamin B-1 (Thiamine HCl) 100 Mg Tab 100 Mg PO DAILY Amlodipine (Amlodipine Besylate) 5 Mg Tab 5 Mg PO BID Clonidine (Clonidine HCl) 0.2 Mg Tab 0.2 Mg PO Q12HR Nitroglycerin SL (Nitroglycerin) 0.4 Mg Subl 0.4 Mg SL DIRECTED PRN ONE TABLET UNDER THE TONGUE NEEDED FOR CHEST PAIN, MAY REPEAT EVERY FIVE MINUTES FOR A TOTAL OF 3 DOSES OR CALL 911 IF NO RELIEF Symbicort Inh (Budesonide/Formoterol Fumarate) 160-4.5 Mcg/Act Aero 2 Puff INH Q12HR Review of Systems Except as stated in HPI: all other systems reviewed are Neg Physical Exam Narrative GENERAL: Well-developed elderly after [place] male patient currently in mild distress. Awake and oriented 3. SKIN: Focused skin assessment warm/dry. HEAD: Atraumatic. Normocephalic. EYES: Pupils equal and round. No scleral icterus. No injection or drainage. Pale conjunctiva. ENT: No nasal bleeding or discharge. Mucous membranes pink and moist. NECK: Trachea midline. No JVD. CARDIOVASCULAR: Regular rate and rhythm. No murmur appreciated. RESPIRATORY: No accessory muscle use. Clear to auscultation. Breath sounds equal bilaterally. GASTROINTESTINAL: Abdomen soft, left upper quadrant tenderness without guarding or rebound, nondistended. Hepatic and splenic margins not palpable. RECTAL EXAM: No masses or tenderness, stool is brown. Hemoccult negative. MUSCULOSKELETAL: No obvious deformities. No clubbing. No cyanosis. No edema. NEUROLOGICAL: Awake and alert. No obvious cranial nerve deficits. Motor grossly within normal limits. Normal speech. PSYCHIATRIC: Appropriate mood and affect; insight and judgment normal. Data Data Last Documented VS Vital Signs Date Time Temp Pulse Resp B/P (MAP) Pulse Ox O2 Delivery O2 Flow Rate FiO2 12/13/16 11:00 78 20 117/57 (77) 99 Room Air Orders Orders Complete Blood Count With Diff (12/13/16 10:47) Type And Screen (12/13/16 10:47) Comprehensive Metabolic Panel (12/13/16 10:54) Lipase (12/13/16 10:54) Prothrombin Time / Inr (Pt) (12/13/16 10:54) Act Partial Throm Time (Ptt) (12/13/16 10:54) Ct Abd/Pel W Iv Contrast(Rout) (12/13/16 10:54) Iv Access Insert/Monitor (12/13/16 10:54) Ecg Monitoring (12/13/16 10:54) Oximetry (12/13/16 10:54) Morphine Inj (Morphine Inj) (12/13/16 11:00) Ondansetron Inj (Zofran Inj) (12/13/16 11:00) Sodium Chlor 0.9% 1000 Ml Inj (Ns 1000 M (12/13/16 10:54) Sodium Chloride 0.9% Flush (Ns Flush) (12/13/16 11:00) Vascular Access Team Consult/P PRN (12/13/16 13:56) Vascular Poc Ultrasound (12/13/16 ) Labs Laboratory Tests Test 12/13/16 10:50 White Blood Count 14.5 TH/MM3 Red Blood Count 3.19 MIL/MM3 Hemoglobin 8.2 GM/DL Hematocrit 24.7 % Mean Corpuscular Volume 77.6 FL Mean Corpuscular Hemoglobin 25.8 PG Mean Corpuscular Hemoglobin Concent 33.2 % Red Cell Distribution Width 20.2 % Platelet Count 370 TH/MM3 Mean Platelet Volume 9.2 FL Neutrophils (%) (Auto) 73.2 % Lymphocytes (%) (Auto) 12.7 % Monocytes (%) (Auto) 10.4 % Eosinophils (%) (Auto) 3.4 % Basophils (%) (Auto) 0.3 % Neutrophils # (Auto) 10.6 TH/MM3 Lymphocytes # (Auto) 1.8 TH/MM3 Monocytes # (Auto) 1.5 TH/MM3 Eosinophils # (Auto) 0.5 TH/MM3 Basophils # (Auto) 0.0 TH/MM3 CBC Comment DIFF FINAL Differential Comment Prothrombin Time 11.4 SEC Prothromb Time International Ratio 1.0 RATIO Activated Partial Thromboplast Time 32.5 SEC Blood Urea Nitrogen 25 MG/DL Creatinine 1.31 MG/DL Random Glucose 122 MG/DL Total Protein 7.7 GM/DL Albumin 3.4 GM/DL Calcium Level 9.9 MG/DL Alkaline Phosphatase 190 U/L Aspartate Amino Transf (AST/SGOT) 29 U/L Alanine Aminotransferase (ALT/SGPT) 16 U/L Total Bilirubin 0.5 MG/DL Sodium Level 140 MEQ/L Potassium Level 5.1 MEQ/L Chloride Level 107 MEQ/L Carbon Dioxide Level 25.8 MEQ/L Anion Gap 7 MEQ/L Estimat Glomerular Filtration Rate 66 ML/MIN Lipase 68 U/L [facility] Medical Decision Making Medical Screen Exam Complete: Yes Emergency Medical Condition: Yes Medical Record Reviewed: Yes Interpretation(s) Laboratory Tests Test 12/13/16 10:50 White Blood Count 14.5 TH/MM3 (4.0-11.0) Red Blood Count 3.19 MIL/MM3 (4.50-5.90) Hemoglobin 8.2 GM/DL (13.0-17.0) Hematocrit 24.7 % (39.0-51.0) Mean Corpuscular Volume 77.6 FL (80.0-100.0) Mean Corpuscular Hemoglobin 25.8 PG (27.0-34.0) Red Cell Distribution Width 20.2 % (11.6-17.2) Neutrophils (%) (Auto) 73.2 % (16.0-70.0) Monocytes (%) (Auto) 10.4 % (0.0-8.0) Neutrophils # (Auto) 10.6 TH/MM3 (1.8-7.7) Monocytes # (Auto) 1.5 TH/MM3 (0-0.9) Eosinophils # (Auto) 0.5 TH/MM3 (0-0.4) Activated Partial Thromboplast Time 32.5 SEC (24.3-30.1) Blood Urea Nitrogen 25 MG/DL (7-18) Creatinine 1.31 MG/DL (0.60-1.30) Random Glucose 122 MG/DL (74-106) Alkaline Phosphatase 190 U/L (45-117) Estimat Glomerular Filtration Rate 66 ML/MIN (>89) Lipase 68 U/L (73-393) Differential Diagnosis Symptomatic anemia versus metabolic issues versus arrhythmia versus sepsis Narrative Course Lab work shows significant anemia but this appears to be chronic. His hemoglobin is currently 8. Vital signs are stable in the ER. His Hemoccult is negative. CT was ordered for further evaluation of the left upper quadrant pain which patient states has been going on since his last admission. My plan would at this point would be to admit him for further evaluation and treatment of syncope and anemia. Case was discussed with Dr. Huerta for admission. [facility] Point of Care Internal Pos. & Neg. Controls: Passed Fecal Specimen Occult Blood: Negative Diagnosis Primary Impression: Anemia Additional Impressions: Syncope Abdominal pain Acute renal failure Admitting Information Admitting Physician Requests: Admit Carlotta Duran MD Dec 13, 2016 11:19
[2016-12-13 11:24] LABS: AUTOMATED NEUTROPHIL # 10.6 TH/MM3 (1.8-7.7); BASOPHIL % 0.3 % (0.0-2.0); EOSINOPHIL # 0.5 TH/MM3 (0-0.4); EOSINOPHIL % 3.4 % (0.0-4.0); HEMATOCRIT 24.7 % (39.0-51.0); HEMO FLAGS DIFF FINAL; LYMPH % 12.7 % (9.0-44.0); LYMPHOCYTE # 1.8 TH/MM3 (1.0-4.8); MEAN CELL VOLUME 77.6 FL (80.0-100.0); MEAN CORPUSCULAR HEMOGLOBIN 25.8 PG (27.0-34.0); MEAN CORPUSCULAR HGB CONC 33.2 % (32.0-36.0); MONO % 10.4 % (0.0-8.0); NEUT % 73.2 % (16.0-70.0); PLATELET COUNT 370 TH/MM3 (150-450); RED BLOOD COUNT 3.19 MIL/MM3 (4.50-5.90); RED CELL DISTRIBUTION WIDTH 20.2 % (11.6-17.2); WHITE BLOOD COUNT 14.5 TH/MM3 (4.0-11.0)
[2016-12-13] MEDS ORDERED: HYDR-3535 PO (11:32)
[2016-12-13] MEDS ORDERED: ALBUAER3 INH (11:32)
[2016-12-13] MEDS ORDERED: REGL5TAB PO (11:32)
[2016-12-13] MEDS ORDERED: LOSA100T2 PO (11:33)
[2016-12-13] MEDS ORDERED: AMBI5TAB PO (11:33)
[2016-12-13] MEDS ORDERED: POTA10CA PO (11:33)
[2016-12-13] MEDS ORDERED: NUTR-265 PO (11:33)
[2016-12-13] MEDS ORDERED: MOBI7.5T PO (11:33)
[2016-12-13 11:34] LABS: APTT (PATIENT) 32.5 SEC (24.3-30.1); PROTHROMBIN TIME - PATIENT 11.4 SEC (9.8-11.6)
[2016-12-13 11:45] LABS: ALKALINE PHOSPHATASE 190 U/L (45-117); ALT (GPT) 16 U/L (12-78); TOTAL BILIRUBIN ADULT 0.5 MG/DL (0.2-1.0)
[2016-12-13 12:08] LABS: ANION GAP 7 MEQ/L (5-15); AST (GOT) 29 U/L (15-37); BICARBONATE 25.8 MEQ/L (21.0-32.0); BLOOD UREA NITROGEN 25 MG/DL (7-18); CHLORIDE 107 MEQ/L (98-107); GLOMERULAR FILTRATION RATE 66 ML/MIN (>89); SODIUM (NA) 140 MEQ/L (136-145)
[2016-12-13 12:19] LABS: POTASSIUM 5.1 MEQ/L (3.5-5.1)
[2016-12-13] MEDS ORDERED: LACTULOSE SYRUP 20 GM/30 ML CUP PO PRN (14:30)
[2016-12-13] MEDS ORDERED: SENNOSIDES 8.6 MG TAB PO PRN (14:30)
[2016-12-13] MEDS ORDERED: NALOXONE HCL 0.4 MG/ML AMP IV PRN (14:30)
[2016-12-13] MEDS ORDERED: MAGNESIUM HYDROXIDE SUSP 30 ML CUP PO PRN (14:30)
[2016-12-13] MEDS ORDERED: BISACODYL 10 MG SUPP RECTAL PRN (14:30)
[2016-12-13] MEDS ORDERED: ONDANSETRON HCL 4 MG/2 ML VIAL IVP PRN (14:30)
[2016-12-13] MEDS ORDERED: ACETAMINOPHEN 325 MG TAB PO PRN (14:30)
[2016-12-13] MEDS ORDERED: IOHEXOL 350 MG/ML 10 ML VIAL (for RAD DIAG) IVCONTRAST ONE (15:18)
--- NOTE | 2016-12-13 15:36 | RADRPT ---
EXAM DATE/TIME: 12/13/2016 14:52 [facility] COMPARISON: CT ABDOMEN W/O CONTRAST, October 03, 2016, 15:30. CT ABDOMEN & PELVIS W CONTRAST, September 30, 2016, 18:41. INDICATIONS : Abnormal lab work, syncope IV CONTRAST: 80 cc Omnipaque 350 (iohexol) IV ORAL CONTRAST: No oral contrast ingested. RADIATION DOSE: 7.17 CTDIvol (mGy) MEDICAL HISTORY : Chronic obstructive pulmonary disease. Hypertension. Diabetes SURGICAL HISTORY : None. ENCOUNTER: Initial ACUITY: 2 days PAIN SCALE: 2/10 LOCATION: Abdomen TECHNIQUE: Volumetric scanning of the abdomen and pelvis was performed. Using automated exposure control and ad justment of the mA and/or kV according to patient size, radiation dose was kept as low as reasonably achievable to obtain optimal diagnostic quality images. DICOM format image data is available electro nically for review and comparison. FINDINGS: Fluid collections adjacent to the pancreas have almost completely resolved and are not currently marcela urable or safely drainable. Fluid collections near the root of the mesentery are much smaller in the interim, the largest left of midline 2.9 x 5.0 cm previously 3.9 x 7.4 cm. Nothing safely drainable a t the root of the mesentery. Mildly distended gallbladder with indistinct wall. Potentially some mild intrahepatic biliary distent ion, mostly the left hepatic lobe, but it don't see any distention of the common bile duct. Trace leo e fluid in Morison's pouch, actually decreased from before. No acute abnormality seen of the spleen, pancreas, adrenal glands and kidneys. No obstruction of the gastrointestinal tract. CONCLUSION: 1. Near-complete resolution of peripancreatic fluid collections. 2. The fluid collection at the root of the mesentery is smaller. 3. Mildly distended gallbladder with an indistinct wall. Potentially some mild intrahepatic biliary d istention, etiology uncertain. Mason Dahl MD on December 13, 2016 at 15:28 Board Certified Radiologist. This report was verified electronically.
[2016-12-13] MEDS ORDERED: ACETAMINOPHEN/HYDROcodone 325 MG/7.5 MG TAB PO PRN (15:45)
[2016-12-13] MEDS ORDERED: RESP: ALBUTEROL 2.5 MG/IPRATROPIUM 0.5 MG NEB (PRN) NEB (15:45)
--- NOTE | 2016-12-13 16:11 | RADRPT ---
EXAM DATE/TIME: 12/13/2016 15:57 [facility] COMPARISON: CHEST SINGLE AP, October 01, 2016, 17:03. INDICATIONS : Cough. MEDICAL HISTORY : Chronic obstructive pulmonary disease. Hypertension. Diabetes SURGICAL HISTORY : None. ENCOUNTER: Initial ACUITY: 1 day PAIN SCORE: 4/10 LOCATION: Bilateral chest FINDINGS: The cardiac silhouette is enlarged in transverse diameter. The lungs are free of acute parenchymal op acity. No effusions are identified. Metallic pellets are present at the thoracic inlet which are not acute. CONCLUSION: 1. Cardiomegaly. No acute pulmonary disease. El Santiago MD on December 13, 2016 at 16:08 Board Certified Radiologist. This report was verified electronically.
[2016-12-13] MEDS: SODIUM CHLOR 0.9% 1000 ML INJ 1,000 ML IV SCH ×2 (17:04→21:19)
[2016-12-13 17:08] VITALS: BP 115/56; PULSE 74; RESP 20; TEMP 98.5; O2SAT 98
--- NOTE | 2016-12-13 18:04 | HHI.HP ---
H[facility] Service [facility] Primary Care Physician ELIEL Liu Admission Diagnosis syncope/chronic anemia/acute renal failure/chronic abdominal pain Diagnoses: Chief Complaint: Generalized weakness. Travel History International Travel<30 Days: No Contact w/Intl Traveler <30 Da: No Traveled to Known Affected Are: No History of Present Illness Mr. Marti is a 66-year-old male with a history of pancreatic pseudocyst status post resection 2 months ago, history of anemia who presents to the emergency department today due to weakness, syncope or near syncopal episodes. He was sent to the hospital by his primary care physician due to his worsening symptoms as well as the blood work that shows significant anemia with hemoglobin of about 7.0. Patient denies any blood in the stool. He does complain of lower abdominal pain. He denies any chest pain. He does report cough in the last few days with rodríguez color sputum production. No fever or chills. Denies any changes in bowel or bladder habits. Review of Systems Except as stated in HPI: all other systems reviewed are Neg Past Family Social History Past Medical History Hypertension, COPD, diabetes mellitus, iron deficiency anemia Past Surgical History Appendectomy Pancreatic cyst surgery Reported Medications Poly-Iron 150 (Polysaccharide Iron Complex) 150 Mg Cap 150 Mg PO Q12HR Daliresp (Roflumilast) 500 Mcg Tab 500 Mcg PO DAILY 30 Days Reported Mobic (Meloxicam) 7.5 Mg Tab 7.5 Mg PO BID Losartan-Hydrochlorothiazide 100-25 Mg Tab 1 Tab PO DAILY Potassium Chloride ER (Potassium Chloride) 10 Meq Cap 10 Meq PO DAILY Ensure Enlive (Lactose-Reduced Food) 0.08 Gram-1.5 Kcal/Ml Liquid 1 Can PO TID Ambien (Zolpidem Tartrate) 5 Mg Tab 5 Mg PO HS Reglan (Metoclopramide HCl) 5 Mg Tab 5 Mg PO BID PRN Lortab (Hydrocodone-Acetaminophen) 10-325 Mg Tab 1 Tab PO Q8HR PRN Proair Hfa 8.5 GM Inh (Albuterol Sulfate) 90 Mcg/Act Aer 2 Puff INH Q4-6H PRN 108 mcg/actuation Viagra (Sildenafil Citrate) 50 Mg Tab 50 Mg PO DIRECTED PRN Take 1 tablet (50mg) 30 minutes prior to sexual activity Allopurinol 300 Mg Tab 300 Mg PO DAILY Metformin (Metformin HCl) 500 Mg Tab 500 Mg PO DAILY With a meal Gabapentin 600 Mg Tab 600 Mg PO TID Vitamin B-1 (Thiamine HCl) 100 Mg Tab 100 Mg PO DAILY Amlodipine (Amlodipine Besylate) 5 Mg Tab 5 Mg PO BID Clonidine (Clonidine HCl) 0.2 Mg Tab 0.2 Mg PO Q12HR Nitroglycerin SL (Nitroglycerin) 0.4 Mg Subl 0.4 Mg SL DIRECTED PRN ONE TABLET UNDER THE TONGUE NEEDED FOR CHEST PAIN, MAY REPEAT EVERY FIVE MINUTES FOR A TOTAL OF 3 DOSES OR CALL 911 IF NO RELIEF Symbicort Inh (Budesonide/Formoterol Fumarate) 160-4.5 Mcg/Act Aero 2 Puff INH Q12HR Allergies: Coded Allergies: penicillin G (Unverified Allergy, Severe, HIVES, 12/13/16) Family History Mother had diabetes mellitus. Dad had cancer. Social History Patient quit smoking and drinking in April 2016. He denies using illicit drugs. Physical Exam Vital Signs Vital Signs Date Time Temp Pulse Resp B/P (MAP) Pulse Ox O2 Delivery O2 Flow Rate FiO2 12/13/16 17:08 98.5 74 20 115/56 (75) 98 Room Air 12/13/16 11:20 18 12/13/16 11:00 78 20 117/57 (77) 99 Room Air 12/13/16 10:44 Room Air Physical Exam GENERAL: This is a well-nourished, well-developed patient, in no apparent distress. SKIN: No rashes, ecchymoses or lesions. Warm and dry. HEAD: Atraumatic. Normocephalic. No temporal or scalp tenderness. EYES: Pupils equal round and reactive. No injection or drainage. ENT: Nose without bleeding, purulent drainage or septal hematoma. Airway patent. NECK: Trachea midline. No lymphadenopathy. Supple, nontender, no meningeal signs. CARDIOVASCULAR: Regular rate and rhythm without murmurs, gallops, or rubs. No JVD. RESPIRATORY: Clear to auscultation. Breath sounds equal bilaterally. No wheezes , rales, or rhonchi. GASTROINTESTINAL: Abdomen soft, nondistended. No guarding. Tender to palpation over lower quadrants. MUSCULOSKELETAL: Extremities without clubbing, cyanosis, or edema. NEUROLOGICAL: Awake and alert. Cranial nerves II through XII intact. No focal neurological deficits. Normal speech. Laboratory Laboratory Tests Test 12/13/16 10:50 White Blood Count 14.5 Red Blood Count 3.19 Hemoglobin 8.2 Hematocrit 24.7 Mean Corpuscular Volume 77.6 Mean Corpuscular Hemoglobin 25.8 Mean Corpuscular Hemoglobin Concent 33.2 Red Cell Distribution Width 20.2 Platelet Count 370 Mean Platelet Volume 9.2 Neutrophils (%) (Auto) 73.2 Lymphocytes (%) (Auto) 12.7 Monocytes (%) (Auto) 10.4 Eosinophils (%) (Auto) 3.4 Basophils (%) (Auto) 0.3 Neutrophils # (Auto) 10.6 Lymphocytes # (Auto) 1.8 Monocytes # (Auto) 1.5 Eosinophils # (Auto) 0.5 Basophils # (Auto) 0.0 CBC Comment DIFF FINAL Differential Comment Prothrombin Time 11.4 Prothromb Time International Ratio 1.0 Activated Partial Thromboplast Time 32.5 Blood Urea Nitrogen 25 Creatinine 1.31 Random Glucose 122 Total Protein 7.7 Albumin 3.4 Calcium Level 9.9 Alkaline Phosphatase 190 Aspartate Amino Transf (AST/SGOT) 29 Alanine Aminotransferase (ALT/SGPT) 16 Total Bilirubin 0.5 Sodium Level 140 Potassium Level 5.1 Chloride Level 107 Carbon Dioxide Level 25.8 Anion Gap 7 Estimat Glomerular Filtration Rate 66 Lipase 68 Result Diagram: 12/13/16 1050 12/13/16 1050 Imaging Last Impressions Abdomen/Pelvis CT 12/13/16 1054 Signed Impressions: Service Date/Time: Tuesday, December 13, 2016 14:52 - CONCLUSION: 1. Near-complete resolution of peripancreatic fluid collections. 2. The fluid collection at the root of the mesentery is smaller. 3. Mildly distended gallbladder with an indistinct wall. Potentially some mild intrahepatic biliary distention, etiology uncertain. Mason Dahl MD Chest X-Ray 12/13/16 0000 Signed Impressions: Service Date/Time: Tuesday, December 13, 2016 15:57 - CONCLUSION: 1. Cardiomegaly. No acute pulmonary disease. MD Christine Greenberg VTE Risk Assessment Caprini VTE Risk Assessment: Mod/High Risk (score >= 2) Caprini Risk Assessment Model Point Value = 1 Point Value = 2 Point Value = 3 Point Value = 5 Age 41-60 Minor surgery BMI > 25 kg/m2 Swollen legs Varicose veins or History of unexplained or recurrent spontaneous Oral contraceptives or hormone replacement Sepsis (< 1 month) Serious lung disease, including pneumonia (< 1 month) Abnormal pulmonary function Acute myocardial infarction Congestive heart failure (< 1 month) History of inflammatory bowel disease Medical patient at bed rest Age 61-74 Arthroscopic surgery Major open surgery (> 45 min) Laparoscopic surgery (> 45 min) Malignancy Confined to bed (> 72 hours) Immobilizing plaster cast Central venous access Age >= 75 History of VTE Family history of VTE Factor V Leiden Prothrombin [id number] Lupus anticoagulant Anticardiolipin antibodies Elevated serum homocysteine Heparin-induced thrombocytopenia Other congenital or acquired thrombophilia Stroke (< 1 month) Elective arthroplasty Hip, pelvis, or leg fracture Acute spinal cord injury (< 1 month) Prophylaxis Regimen Total Risk Factor Score Risk Level Prophylaxis Regimen 0-1 Low Early ambulation 2 Moderate Order ONE of the following: *Sequential Compression Device (SCD) *Heparin 5000 units SQ BID 3-4 Higher Order ONE of the following medications: *Heparin 5000 units SQ TID *Enoxaparin/Lovenox 40 mg SQ daily (WT < 150 kg, CrCl > 30 mL/min) *Enoxaparin/Lovenox 30 mg SQ daily (WT < 150 kg, CrCl > 10-29 mL/min) *Enoxaparin/Lovenox 30 mg SQ BID (WT < 150 kg, CrCl > 30 mL/min) AND/OR *Sequential Compression Device (SCD) 5 or more Highest Order ONE of the following medications: *Heparin 5000 units SQ TID (Preferred with Epidurals) *Enoxaparin/Lovenox 40 mg SQ daily (WT < 150 kg, CrCl > 30 mL/min) *Enoxaparin/Lovenox 30 mg SQ daily (WT < 150 kg, CrCl > 10-29 mL/min) *Enoxaparin/Lovenox 30 mg SQ BID (WT < 150 kg, CrCl > 30 mL/min) AND *Sequential Compression Device (SCD) Assessment and Plan Problem List: (1) Acute kidney injury ICD Code: N17.9 - Acute kidney failure, unspecified (2) COPD exacerbation ICD Code: J44.1 - Chronic obstructive pulmonary disease with (acute) exacerbation Status: Acute Assessment and Plan Mr. Marti is a 66 year old male with a history of COPD, recent surgery for pancreatic pseudocyst who presented on the advise of his PCP due to ongoing weakness, dyspnea. PCP performed blood work which indicated hemoglobin around 7. In the ED today, patient's hemoglobin was 8.2. - Probable COPD exacerbation - Patient complains of cough with sputum production. - Will start patient on Levaquin 500mg Qday. - Continue DuoNeb PRN. - Sputum culture. - Generalized fatigue - Anemia - unknown etiology. - If Hgb drops below 7.0, we will transfuse. - Will check Iron panel. - Abdominal pain - CT abdomen shows mildly distended GB with an indistinct wall, potentially some mild intrahepatic biliary distention - Alk Phos is 190. - Will consider GI consult for both biliary distention and anemia. Full code. SCDs. Full code. Physician Certification 2 Midnight Certification Type: Admission for Inpatient Services Order for Inpatient Services The services are ordered in accordance with Medicare regulations or non- Medicare payer requirements, as applicable. In the case of services not specified as inpatient-only, they are appropriately provided as inpatient services in accordance with the 2-midnight benchmark. Estimated LOS (days): 2 days is the estimated time the patient will need to remain in the hospital, assuming treatment plan goals are met and no additional complications. Post-Hospital Plan: Home Milagros Huerta DO Dec 13, 2016 18:04
[2016-12-13 20:00] VITALS: BP 111/57; PULSE 69; RESP 18; TEMP 97.7; O2SAT 96
[2016-12-13] MEDS ORDERED: LEVOFLOXACIN 500 MG TAB PO SCH (20:00)
[2016-12-13] MEDS: DOCUSATE SODIUM 50 MG/SENNA 8.6 MG TAB PO SCH (21:19)
[2016-12-13] MEDS: SODIUM CHLORIDE 0.9% FLUSH 10 ML FLUSH IV FLUSH SCH (21:19)
[2016-12-13] MEDS: ACETAMINOPHEN/HYDROcodone 325 MG/10 MG TAB PO PRN (22:39)
[2016-12-14] VITALS: BP 117/59; PULSE 71; RESP 18; TEMP 98.2; O2SAT 95
[2016-12-14 00:59] LABS: FERRITIN 53 NG/ML (26-388)
[2016-12-14 01:12] LABS: TRANSFERRIN IRON PROFILE 240 MG/DL (200-360)
[2016-12-14 05:31] LABS: AUTOMATED NEUTROPHIL # 8.8 TH/MM3 (1.8-7.7); BASOPHIL # 0.1 TH/MM3 (0-0.2); BASOPHIL % 0.5 % (0.0-2.0); EOSINOPHIL # 0.7 TH/MM3 (0-0.4); EOSINOPHIL % 5.4 % (0.0-4.0); HEMATOCRIT 24.4 % (39.0-51.0); HEMO FLAGS DIFF FINAL; LYMPH % 15.6 % (9.0-44.0); LYMPHOCYTE # 2.1 TH/MM3 (1.0-4.8); MEAN CELL VOLUME 77.9 FL (80.0-100.0); MEAN CORPUSCULAR HEMOGLOBIN 23.8 PG (27.0-34.0); MEAN CORPUSCULAR HGB CONC 30.6 % (32.0-36.0); MONO % 13.5 % (0.0-8.0); PLATELET COUNT 320 TH/MM3 (150-450); RED BLOOD COUNT 3.13 MIL/MM3 (4.50-5.90); RED CELL DISTRIBUTION WIDTH 19.8 % (11.6-17.2); WHITE BLOOD COUNT 13.6 TH/MM3 (4.0-11.0)
[2016-12-14 05:59] LABS: BICARBONATE 23.8 MEQ/L (21.0-32.0); POTASSIUM 4.6 MEQ/L (3.5-5.1)
[2016-12-14 08:00] VITALS: BP 124/64; PULSE 67; RESP 16; TEMP 97.6; O2SAT 96
[2016-12-14] MEDS: SODIUM CHLORIDE 0.9% FLUSH 10 ML FLUSH IV FLUSH SCH (09:00)
[2016-12-14] MEDS: ACETAMINOPHEN/HYDROcodone 325 MG/10 MG TAB PO PRN (09:30)
[2016-12-14] MEDS: DOCUSATE SODIUM 50 MG/SENNA 8.6 MG TAB PO SCH (09:30)
--- NOTE | 2016-12-14 10:15 | HHI.PR ---
Subjective Remarks Follow up for COPD exacerbation, anemia. Patient reports feeling much better today. He is able to ambulate well. No fever, chills. He denies any dark stool or blood in the stool. His last colonoscopy was at least 4-5 years ago. He follows up with GI, Dr. Shagufta Ames in the outpatient setting. I discussed with him and offered to consult Dr. Ames while patient is in the hospital. He wants to go home and follow up with Dr. Ames in the office and if necessary, he will undergo EGD/Colonoscopy in the outpatient setting. Objective Vitals Vital Signs Date Time Temp Pulse Resp B/P (MAP) Pulse Ox O2 Delivery O2 Flow Rate FiO2 12/14/16 08:00 97.6 67 16 124/64 (84) 96 12/14/16 00:00 98.2 71 18 117/59 (78) 95 12/13/16 20:00 97.7 69 18 111/57 (75) 96 12/13/16 18:50 12/13/16 17:08 98.5 74 20 115/56 (75) 98 Room Air 12/13/16 11:20 18 12/13/16 11:00 78 20 117/57 (77) 99 Room Air 12/13/16 10:44 Room Air I/O 12/13/16 12/13/16 12/13/16 12/14/16 12/14/16 12/14/16 06:59 14:59 22:59 06:59 14:59 22:59 Intake Total 1000 ml Balance 1000 ml IV Total 1000 ml # Voids 2 Result Diagram: 12/14/16 0436 12/14/16 0436 Imaging Last Impressions Abdomen/Pelvis CT 12/13/16 1054 Signed Impressions: Service Date/Time: Tuesday, December 13, 2016 14:52 - CONCLUSION: 1. Near-complete resolution of peripancreatic fluid collections. 2. The fluid collection at the root of the mesentery is smaller. 3. Mildly distended gallbladder with an indistinct wall. Potentially some mild intrahepatic biliary distention, etiology uncertain. Mason Dahl MD Chest X-Ray 12/13/16 0000 Signed Impressions: Service Date/Time: Tuesday, December 13, 2016 15:57 - CONCLUSION: 1. Cardiomegaly. No acute pulmonary disease. El Santiago MD Objective Remarks GENERAL: AOX3 NAD. SKIN: Warm and dry. HEAD: Normocephalic. EYES: No scleral icterus. No injection or drainage. NECK: Supple, trachea midline. No JVD or lymphadenopathy. CARDIOVASCULAR: Regular rate and rhythm without murmurs, gallops, or rubs. RESPIRATORY: Breath sounds equal bilaterally. No accessory muscle use. GASTROINTESTINAL: Abdomen soft, non-tender, nondistended. MUSCULOSKELETAL: No cyanosis, or edema. BACK: Nontender without obvious deformity. No CVA tenderness. Procedures None. A/P Problem List: (1) Acute kidney injury ICD Code: N17.9 - Acute kidney failure, unspecified (2) COPD exacerbation ICD Code: J44.1 - Chronic obstructive pulmonary disease with (acute) exacerbation Status: Acute (3) Iron deficiency anemia ICD Code: D50.9 - Iron deficiency anemia, unspecified Assessment and Plan Mr. Marti is a 66 year old male with a history of COPD, recent surgery for pancreatic pseudocyst who presented on the advise of his PCP due to ongoing weakness, dyspnea. PCP performed blood work which indicated hemoglobin around 7. In the ED today, patient's hemoglobin was 8.2. - Probable COPD exacerbation - Continue Levaquin 500mg Qday upon discharge. - Patient has symbicort, Albuterol, Daliresp. - Generalized fatigue - Iron deficiency anemia - possibly chronic blood loss. - Offered to consult Dr. Ames (GI). However, patient insists on going home and getting any GI work up in the outpatient setting. - Patient is hemodynamically stable, he is ambulating, no acute blood loss. - Hgb 7.5 today. It would be reasonable for him to follow up with Dr. Ames within a week or two. - Advised patient to increase his Iron supplementation from BID to TID and take it with Vitamin C. - Abdominal pain - CT abdomen shows mildly distended GB with an indistinct wall, potentially some mild intrahepatic biliary distention - Alk Phos is 190, improved to 155. - Abdominal pain resolved. Full code. SCDs. Discharge patient to home Condition on discharge: Improved Regular Diet as tolerated Ad Vida activity Rx written: - Vitamin C - to be taken with Iron tablets - Ferrous sulfate 325mg TID - Levaquin 500mg Qday X 6 days. - Protonix 40mg Qday. Follow-up with primary care physician and GI within 1 week. Milagros Huerta DO Dec 14, 2016 10:15
[2016-12-14] MEDS: SODIUM CHLOR 0.9% 1000 ML INJ 1,000 ML IV SCH (10:19)
[2016-12-14] MEDS ORDERED: FERR325T8 PO (10:39)
[2016-12-14] MEDS ORDERED: VITA250T3 PO (10:39)
[2016-12-14] MEDS ORDERED: LEVA500T20 PO (10:40)
[2016-12-14 11:08] LABS: INDIRECT BILIRUBIN 0.2 MG/DL (0.0-0.8); TOTAL BILIRUBIN ADULT 0.4 MG/DL (0.2-1.0)
[2016-12-14] MEDS ORDERED: PROT40TA PO (11:40)
[2016-12-14 12:00] VITALS: BP 122/65; PULSE 67; RESP 16; TEMP 97.7; O2SAT 95
--- NOTE | 2016-12-14 17:58 | EKG ---
Date Performed: 12/13/2016 Time Performed: 15:27:52 PTAGE: 66 years EKG: Sinus rhythm Compared to previous tracing, QRS voltage in the precordial leads has lessened and the ST-T changes have evolved Clinical correlation is recommended NORMAL ECG PREVIOUS TRACING : 09/20/2016 17.38 DOCTOR: Raudel Rhodes Interpretating Date/Time 12/14/2016 17:57:26
== END 2016-12-14 13:25 | disposition home or self-care (01) | DRG 191 ==
LOC: NEPE 10:27 → NEDA 14:21 → N07B 19:29
PROVIDERS: ADMIT Hospitalist; ATTEND Hospitalist
DX: J44.1 Chronic obstructive pulmonary disease with (acute) exacerbation (principal); N17.9 Acute kidney failure, unspecified; I48.91 Unspecified atrial fibrillation; I50.9 Heart failure, unspecified; I11.0 Hypertensive heart disease with heart failure; R55 Syncope and collapse; E11.9 Type 2 diabetes mellitus without complications; F32.9 Major depressive disorder, single episode, unspecified; M10.9 Gout, unspecified; D50.9 Iron deficiency anemia, unspecified; G47.30 Sleep apnea, unspecified; R10.9 Unspecified abdominal pain; M19.90 Unspecified osteoarthritis, unspecified site; G89.29 Other chronic pain; Z79.84 Long term (current) use of oral hypoglycemic drugs; Z87.891 Personal history of nicotine dependence
CPT/HCPCS: 71010; 74177; 76937; 80048; 80053; 80076; 82728; 83540; 83550; 83690; 85025; 85610; 85730; 86850; 86900; 86901; 93005; 96361; 96374; 96375; J2270; J2405; J7030; Q9967

== ENCOUNTER 2017-12-14 20:08 | Inpatient (IN) ==
--- NOTE | 2017-12-14 22:21 | ED ---
HPI General Chief Complaint: Shortness of Breath/Dyspnea Stated Complaint: dr alejandro/respiratory Time Seen by Provider: 12/14/17 22:12 Source: patient and other (notes from greenhouse staff Dr Guzman) Mode of arrival: ambulatory Limitations: no limitations History of Present Illness 67-year-old male presents to the emergency department by private transportation for evaluation of shortness of breath. Patient has had shortness of breath and wheezing with cough productive of green sputum 2 weeks. Patient has been under the care of his greenhouse staff Dr. Camarena. Patient has taken 2 courses of oral antibiotics and is currently on his second course of antibiotic with Levaquin. Patient is at increased bolus of outpatient prednisone. Patient states symptoms are not improving as an outpatient. Records from his greenhouse staff indicate patient is being sent to the emergency room from the office to be admitted to the hospital. Patient reports he has prior history of CHF as well, but denies any orthopnea PND or new peripheral edema. Patient denies chest pain referred neck jaw back shoulder arm pain. Patient states he is not getting any better on his current medication regimen. Patient with history of hypertension CAD diabetes and COPD. Related Data Home Medications Medication Instructions Recorded Confirmed albuterol sulfate 2.5 mg INHALATION BID PRN 12/14/17 12/14/17 albuterol sulfate [Ventolin HFA] 2 puff INHALATION Q4-6H PRN 12/14/17 12/14/17 atenolol 50 mg PO DAILY 12/14/17 12/14/17 doxycycline hyclate 100 mg PO BID 12/14/17 12/14/17 [id number]-ynydyqldq-[id number] 1 inh INHALATION BID 12/14/17 12/14/17 [Trelegy Ellipta] hydralazine 50 mg PO QID 12/14/17 12/14/17 hydrochlorothiazide 25 mg PO DAILY 12/14/17 12/14/17 ipratropium-albuterol 3 ml INHALATION Q6-8H PRN 12/14/17 12/14/17 levofloxacin 500 mg PO DAILY 12/14/17 12/14/17 lisinopril mg PO DAILY 12/14/17 omeprazole 20 mg PO DAILY 12/14/17 12/14/17 oxycodone-acetaminophen [Percocet] 1 tab PO Q4-6H PRN 12/14/17 12/14/17 prednisone 10 mg PO DAILY 12/14/17 12/14/17 Allergies Allergy/AdvReac Type Severity Reaction Status Date / Time penicillin G Allergy Severe HIVES Verified 12/14/17 21:06 Penicillins AdvReac Unknown Rash Verified 12/14/17 21:06 Review of Systems ROS: all other systems reviewed are negative REPLACED BY [facility] Medical History Medical History COPD (chronic obstructive pulmonary disease) (Acute) Diabetes (Acute) Heart disease (Acute) High blood pressure (Acute) Surgical History Surgical History History of pancreatic surgery (Acute) Family History Family History Other Diabetes mellitus Social History Social History Substance History: No History of Abuse Smoking Status: Former smoker How Often Do You Have a Drink Containing Alcohol: Never Recent Travel in [facility] within the Last 8 Weeks: No Recent Out of Country Travel within the Last 8 Weeks: No Immunization History Tetanus Immunization: <5 Years Hx Influenza Vaccine This Season: Yes Exam Narrative Exam Narrative: GENERAL: Well-nourished, well-developed patient. SKIN: Focused skin assessment warm/dry. HEAD: Normocephalic. EYES: No scleral icterus. No injection or drainage. NECK: Supple, trachea midline. No JVD or lymphadenopathy. CARDIOVASCULAR: Regular rate and rhythm without murmurs, gallops, or rubs. RESPIRATORY: Breath sounds equal bilaterally with bilateral rhonchi few end expiratory wheezes. No accessory muscle use. GASTROINTESTINAL: Abdomen soft, non-tender, nondistended. MUSCULOSKELETAL: No cyanosis, or nonpitting edema. BACK: Nontender without obvious deformity. No CVA tenderness. Course Initial Documented Vital Signs Temperature 98.6 F 12/14/17 21:06 Pulse Rate 91 H 12/14/17 21:06 Respiratory Rate 24 12/14/17 21:06 Blood Pressure 208/100 H 12/14/17 21:06 Pulse Oximetry 91 L 12/14/17 21:06 Last Documented Vital Signs Temperature 98.6 F 12/14/17 21:06 Pulse Rate 58 L 12/15/17 00:36 Respiratory Rate 18 12/15/17 00:36 Blood Pressure 175/82 H 12/15/17 00:36 Pulse Oximetry 97 12/15/17 00:36 Medical Decision Making MDM Narrative Medical decision making narrative: 67-year-old male with history of hypertension CAD COPD and diabetes presents for complaint of shortness of breath. Patient uses supplemental oxygen 2 L/min nasal cannula at bedtime. Patient has not taken his daily medications. Patient has been under the care of his greenhouse staff taking outpatient antibiotics without symptom relief. Patient was seen by his greenhouse staff today and sent to the hospital for admission. Patient placed on cardiac nurse practitioner with continuous pulse oximetry IV access obtained specimens collected and sent for resulting patient placed on supplemental oxygen 2 L/min nasal cannula Medical Screen Exam Complete: Yes Emergency Medical Condition: Yes Differential Diagnosis Differential Diagnosis: Dyspnea, exacerbation COPD, pneumonia, CHF, ACS, [place], PE , anemia, arrhythmia, electrolyte disturbance, dehydration, uncontrolled diabetes Medical Records Medical records reviewed: Yes I reviewed the patient's medical records. Lab Data Result diagrams: 12/14/17 22:32 12/14/17 22:32 Lab Results 12/14/17 12/14/17 12/14/17 Range/Units 22:32 22:32 22:32 WBC 13.5 H (4.0-11.0) th/mm3 RBC 4.66 (4.50-5.90) mil/mm3 Hgb 12.8 L (13.0-17.0) gm/dL Hct 41.0 (39.0-51.0) % MCV 88.1 (80.0-100.0) fL MCH 27.5 (27.0-34.0) pg MCHC 31.2 L (32.0-36.0) % RDW 18.0 H (11.6-17.2) % Plt Count 158 (150-450) th/mm3 MPV 9.0 (7.0-11.0) fL Neut % (Auto) 70.5 H (16.0-70.0) % Lymph % (Auto) 16.6 (9.0-44.0) % [place] % (Auto) 11.1 H (0.0-8.0) % Eos % (Auto) 1.6 (0.0-4.0) % Baso % (Auto) 0.2 (0.0-2.0) % Neut # (Auto) 9.5 H (1.8-7.7) th/mm3 Lymph # (Auto) 2.2 (1.0-4.8) th/mm3 [place] # (Auto) 1.5 H (0.0-0.9) th/mm3 Eos # (Auto) 0.2 (0.0-0.4) th/mm3 Baso # (Auto) 0.0 (0.0-0.2) th/mm3 WBC Differential . Differential Comment Auto diff final PT 10.7 (9.8-11.6) sec INR 1.1 Ratio APTT 27.5 (24.3-30.1) sec Sodium 147 H (136-145) meq/L Potassium 4.5 (3.5-5.1) meq/L Chloride 113 H (98-107) meq/L Carbon Dioxide 26.0 (21.0-32.0) meq/L Anion Gap 8 (5-15) meq/L BUN 30 H (7-18) mg/dL Creatinine 1.54 H (0.60-1.30) mg/dL Estimated GFR 55 L (>89) mL/min Random Glucose 101 (74-106) mg/dL Calcium 8.6 (8.5-10.1) mg/dL Magnesium 2.1 (1.5-2.5) mg/dL Total Bilirubin 0.4 (0.2-1.0) mg/dL AST 29 (15-37) U/L ALT 25 (12-78) U/L Alkaline Phosphatase 72 (45-117) U/L Total Creatine Kinase 152 (39-308) U/L CK-MB (CK-2) 2.3 (0.5-3.6) ng/mL Troponin I 0.02 (0.02-0.05) ng/mL B-Natriuretic Peptide (0-100) pg/mL Total Protein 6.5 (6.4-8.2) g/dL Albumin 3.5 (3.4-5.0) g/dL 12/14/17 Range/Units 22:32 WBC (4.0-11.0) th/mm3 RBC (4.50-5.90) mil/mm3 Hgb (13.0-17.0) gm/dL Hct (39.0-51.0) % MCV (80.0-100.0) fL MCH (27.0-34.0) pg MCHC (32.0-36.0) % RDW (11.6-17.2) % Plt Count (150-450) th/mm3 MPV (7.0-11.0) fL Neut % (Auto) (16.0-70.0) % Lymph % (Auto) (9.0-44.0) % [place] % (Auto) (0.0-8.0) % Eos % (Auto) (0.0-4.0) % Baso % (Auto) (0.0-2.0) % Neut # (Auto) (1.8-7.7) th/mm3 Lymph # (Auto) (1.0-4.8) th/mm3 [place] # (Auto) (0.0-0.9) th/mm3 Eos # (Auto) (0.0-0.4) th/mm3 Baso # (Auto) (0.0-0.2) th/mm3 WBC Differential Differential Comment PT (9.8-11.6) sec INR Ratio APTT (24.3-30.1) sec Sodium (136-145) meq/L Potassium (3.5-5.1) meq/L Chloride (98-107) meq/L Carbon Dioxide (21.0-32.0) meq/L Anion Gap (5-15) meq/L BUN (7-18) mg/dL Creatinine (0.60-1.30) mg/dL Estimated GFR (>89) mL/min Random Glucose (74-106) mg/dL Calcium (8.5-10.1) mg/dL Magnesium (1.5-2.5) mg/dL Total Bilirubin (0.2-1.0) mg/dL AST (15-37) U/L ALT (12-78) U/L Alkaline Phosphatase (45-117) U/L Total Creatine Kinase (39-308) U/L CK-MB (CK-2) (0.5-3.6) ng/mL Troponin I (0.02-0.05) ng/mL B-Natriuretic Peptide 41 (0-100) pg/mL Total Protein (6.4-8.2) g/dL Albumin (3.4-5.0) g/dL Imaging Data Radiologist's impression: Chest X-Ray 12/14/17 22:12 CONCLUSION: 1. Cardiomegaly. 2. No pulmonary vascular congestion or focal infiltrate. ECG Data EKG Prior to Arrival: No Attestation: I personally reviewed and interpreted this ECG as follows: Prior ECG tracings: not available for review Interpretation: EKG: Sinus bradycardia rate [address] elevation injury pattern or ectopy noted QS inferiorly age-indeterminate Discharge Plan Discharge Disposition Patient Disposition: 30 Still Patient Discharge Condition Condition: Stable Discharge Details Diagnosis: Dyspnea, Acute exacerbation of chronic obstructive airways disease, HTN ( hypertension), NATALY (acute kidney injury) Physicians Team ED Provider: Cary Roque Primary Care Provider: Jessica Boston Attending Provider: Karey Harmon Status ED Status: Admitted Observation Patient
--- NOTE | 2017-12-14 22:32 | XR ---
EXAM DATE: 12/14/2017 10:29 PM EDT AGE/SEX: 67 years / Male INDICATIONS: Dyspnea CLINICAL DATA: This is the patient's initial encounter. Patient reports that signs and symptoms have been present for 1 day and indicates a pain score of 0/10. MEDICAL/SURGICAL HISTORY: Hypertension. Diabetes mellitus type II. None. COMPARISON: [facility], XR CHEST PA AND LAT, 06/26/2017. . FINDINGS: The heart is mildly enlarged. The pulmonary vascular pattern is normal. The lungs are clear. Shrapnel is noted within the soft tissues of the neck. CONCLUSION: 1. Cardiomegaly. 2. No pulmonary vascular congestion or focal infiltrate. Electronically signed by: Adiel Noland MD 12/14/2017 10:31 PM EDT
[2017-12-14 22:50] LABS: Baso % (Auto) 0.2 % (0.0-2.0); Eos # (Auto) 0.2 th/mm3 (0.0-0.4); Eos % (Auto) 1.6 % (0.0-4.0); Hemoglobin 12.8 gm/dL (13.0-17.0); Lymph # (Auto) 2.2 th/mm3 (1.0-4.8); Lymph % (Auto) 16.6 % (9.0-44.0); Mean Corpuscular HGB Conc 31.2 % (32.0-36.0); Mean Corpuscular Hemoglobin 27.5 pg (27.0-34.0); Mean Corpuscular Volume 88.1 fL (80.0-100.0); Mono # (Auto) 1.5 th/mm3 (0.0-0.9); Mono % (Auto) 11.1 % (0.0-8.0); Neut # (Auto) 9.5 th/mm3 (1.8-7.7); Neut % (Auto) 70.5 % (16.0-70.0); Platelet Count 158 th/mm3 (150-450); Red Blood Count 4.66 mil/mm3 (4.50-5.90); White Blood Count 13.5 th/mm3 (4.0-11.0)
[2017-12-14 23:09] LABS: Activated Partial Thrombo Time 27.5 sec (24.3-30.1); INR 1.1 Ratio; Prothrombin Time 10.7 sec (9.8-11.6)
[2017-12-14 23:26] LABS: Alanine Aminotransferase 25 U/L (12-78); Albumin 3.5 g/dL (3.4-5.0); Alkaline Phosphatase 72 U/L (45-117); Anion Gap 8 meq/L (5-15); Aspartate Aminotransferase 29 U/L (15-37); Blood Urea Nitrogen 30 mg/dL (7-18); Calcium 8.6 mg/dL (8.5-10.1); Chloride 113 meq/L (98-107); Creatine Kinase 152 U/L (39-308); Glomerular Filtration Rate 55 mL/min (>89); Glucose,Random 101 mg/dL (74-106); Magnesium 2.1 mg/dL (1.5-2.5); Potassium 4.5 meq/L (3.5-5.1); Sodium 147 meq/L (136-145); Total Protein 6.5 g/dL (6.4-8.2); Troponin I 0.02 ng/mL (0.02-0.05)
[2017-12-14] MEDS ORDERED: MethylPREDNISolone Sod Succinate Inj 125 MG/2 ML Vial IV.PUSH ONE (23:35)
[2017-12-14 23:38] LABS: Creatine Kinase MB 2.3 ng/mL (0.5-3.6)
[2017-12-15] MEDS ORDERED: Acetaminophen 325 MG Tablet PO PRN (00:02)
[2017-12-15] MEDS ORDERED: Bisacodyl 10 MG Supp RECTAL PRN (00:02)
[2017-12-15] MEDS ORDERED: Dextrose 50% in Water 50 ML Vial IV.PUSH PRN (00:05)
--- NOTE | 2017-12-15 00:09 | P.HP ---
History of Present Illness Service: [facility] Primary Care Physician: Jessica Boston History of Present Illness: 67-year-old male with past medical history significant for COPD, diabetes, hypertension and coronary artery disease stents to the emergency department for evaluation of shortness of breath. The patient has had shortness of breath and wheezing with a cough productive of green sputum 2 weeks. He has been seen by his special education director, Dr. Camarena. The patient has taken 2 courses of antibiotics and is currently on Levaquin. He has also been taking oral prednisone although did not take today's dose. He states his symptoms are not improving and were in fact worsening. He was sent by his special education director for further evaluation in the emergency department. The patient denies chest pain. He denies any abdominal pain. No nausea/vomiting/diarrhea. No fever/chills. No lateralizing signs/symptoms. Inpatient Certification: I certify that the inpatient services were ordered in accordance with Medicare regulations governing the order. This includes certification that hospital inpatient services are reasonable and necessary and in the case of services not specified as inpatient-only under 42 CFR 419.22(n), that they are appropriately provided as inpatient services in accordance to with the 2-midnight benchmark under 43 CFR 412.3(e) Review of Systems All other systems reviewed negative except as stated in HPI [facility] - History History Provided By: Patient - Medical History Medical History: Medical History (Last Reviewed 12/14/17 @ 22:33 by Cary Roque MD) COPD (chronic obstructive pulmonary disease) Diabetes Heart disease High blood pressure - Surgical History Surgical History: Surgical History (Last Reviewed 12/14/17 @ 22:33 by Cary Roque MD) History of pancreatic surgery - Family History Family History: Family History (Last Updated 12/15/17 @ 00:07 by Karey Harmon MD) Other Diabetes mellitus - Tobacco History Tobacco Use In Past 30 Days: No Smoking Status: Former smoker - Alcohol History How Often Do You Have a Drink Containing Alcohol: Never - Substance Use History Substance History: No History of Abuse - Travel History Recent Travel in the [place] Within the Last 8 Weeks: No Recent Travel Out of the Country Within the Last 8 Weeks: No - Immunization History Tetanus Immunization: <5 Years Hx Influenza Vaccine This Season: Yes Medications and Allergies Active Medications: Active Medications Acetaminophen (Tylenol) 650 mg PO Q4H PRN PRN Reason: Temp > 100.4 Al Hydroxide/Mg Hydroxide (Milk Of Magnesia Liq) 30 ml PO Q12H PRN PRN Reason: Mild Constipation Albuterol (Duoneb Neb (Tamera)) 1 ampul NEB Q4HR NEB [facility] Bisacodyl (Dulcolax Supp) 10 mg RECTAL DAILY PRN PRN Reason: SEVERE CONSITIPATION Heparin Sodium (Porcine) (Heparin Inj) 5,000 units SQ Q8H [facility] Levofloxacin/Dextrose (Levaquin 750 Mg Premix Inj) 150 mls @ 100 mls/hr IV.SIG Q24H [facility] Sodium Chloride (Ns Inj) 1,000 mls @ 100 mls/hr IV.CONT .Q10H [facility] Lactulose (Lactulose Liq) 30 ml PO DAILY PRN PRN Reason: SEVERE CONSITIPATION Methylprednisolone Sodium Succinate (Solumedrol Inj) 60 mg IV.PUSH Q6H [facility] Ondansetron HCl (Zofran Inj) 4 mg IV.PUSH Q6H PRN PRN Reason: NAUSEA OR VOMITING Senna/Docusate Sodium (Fátima-Colace) 1 tab PO BID [facility] Sennosides (Senokot) 17.2 mg PO Q12H PRN PRN Reason: Moderate Constipation Sodium Chloride (Ns Flush) 2 ml IV.FLUSH BID [facility] Sodium Chloride (Ns Flush) 2 ml IV.FLUSH PRN PRN PRN Reason: FLUSH AFTER USING IV ACCESS Allergies Allergy/AdvReac Type Severity Reaction Status Date / Time penicillin G Allergy Severe HIVES Verified 12/14/17 21:06 Penicillins AdvReac Unknown Rash Verified 12/14/17 21:06 Home Medications Medication Instructions Recorded Confirmed Type albuterol sulfate 2.5 mg INHALATION BID PRN 12/14/17 12/14/17 History albuterol sulfate [Ventolin HFA] 2 puff INHALATION Q4-6H PRN 12/14/17 12/14/17 History atenolol 50 mg PO DAILY 12/14/17 12/14/17 History doxycycline hyclate 100 mg PO BID 12/14/17 12/14/17 History mcimbazkpre-[id number]-[id number] 1 inh INHALATION BID 12/14/17 12/14/17 History [Trelegy Ellipta] hydralazine 50 mg PO QID 12/14/17 12/14/17 History hydrochlorothiazide 25 mg PO DAILY 12/14/17 12/14/17 History ipratropium-albuterol 3 ml INHALATION Q6-8H PRN 12/14/17 12/14/17 History levofloxacin 500 mg PO DAILY 12/14/17 12/14/17 History lisinopril mg PO DAILY 12/14/17 History omeprazole 20 mg PO DAILY 12/14/17 12/14/17 History oxycodone-acetaminophen [Percocet] 1 tab PO Q4-6H PRN 12/14/17 12/14/17 History prednisone 10 mg PO DAILY 12/14/17 12/14/17 History Exam Vital signs: Vital Signs 12/14/17 21:06 12/14/17 22:25 12/14/17 22:33 Temperature 98.6 F Pulse Rate 91 H 78 Respiratory Rate 24 16 Blood Pressure 208/100 H Pulse Oximetry 91 L 96 97 12/14/17 22:34 12/14/17 22:35 Temperature Pulse Rate 52 L 76 Respiratory Rate 18 18 Blood Pressure 207/96 H Pulse Oximetry 97 Intake & Output 12/14/17 12/14/17 12/15/17 06:59 18:59 06:59 Weight 87.543 kg Narrative: Gen.: No acute distress Head: Normocephalic. Atraumatic. EENT: Pupils equal round and reactive to light. Nose without drainage. Airway intact. Throat without injection. Cardiovascular: Regular rate and rhythm. No murmurs, rubs or gallops. Respiratory: Coarse breath sounds with bilateral wheezing Abdomen: Soft, nontender, nondistended. No peritoneal signs. Musculoskeletal: No gross deformities. No edema. Skin: No obvious rashes or erythema. Neuro: Sensory and motor grossly intact. Cranial nerves II through XII grossly intact. Results - Labs CBC & Chem 7: 12/14/17 22:32 12/14/17 22:32 Labs: Laboratory Results - last 24 hr 12/14/17 12/14/17 12/14/17 22:32 22:32 22:32 WBC 13.5 H RBC 4.66 Hgb 12.8 L Hct 41.0 MCV 88.1 MCH 27.5 MCHC 31.2 L RDW 18.0 H Plt Count 158 MPV 9.0 Neut % (Auto) 70.5 H Lymph % (Auto) 16.6 [place] % (Auto) 11.1 H Eos % (Auto) 1.6 Baso % (Auto) 0.2 Neut # (Auto) 9.5 H Lymph # (Auto) 2.2 [place] # (Auto) 1.5 H Eos # (Auto) 0.2 Baso # (Auto) 0.0 WBC Differential . Differential Comment Auto diff final PT 10.7 INR 1.1 APTT 27.5 Sodium 147 H Potassium 4.5 Chloride 113 H Carbon Dioxide 26.0 Anion Gap 8 BUN 30 H Creatinine 1.54 H Estimated GFR 55 L Random Glucose 101 Calcium 8.6 Magnesium 2.1 Total Bilirubin 0.4 AST 29 ALT 25 Alkaline Phosphatase 72 Total Creatine Kinase 152 CK-MB (CK-2) 2.3 Troponin I 0.02 B-Natriuretic Peptide Total Protein 6.5 Albumin 3.5 12/14/17 22:32 WBC RBC Hgb Hct MCV MCH MCHC RDW Plt Count MPV Neut % (Auto) Lymph % (Auto) [place] % (Auto) Eos % (Auto) Baso % (Auto) Neut # (Auto) Lymph # (Auto) [place] # (Auto) Eos # (Auto) Baso # (Auto) WBC Differential Differential Comment PT INR APTT Sodium Potassium Chloride Carbon Dioxide Anion Gap BUN Creatinine Estimated GFR Random Glucose Calcium Magnesium Total Bilirubin AST ALT Alkaline Phosphatase Total Creatine Kinase CK-MB (CK-2) Troponin I B-Natriuretic Peptide 41 Total Protein Albumin - Imaging Impressions Chest X-Ray 12/14/17 22:12 CONCLUSION: 1. Cardiomegaly. 2. No pulmonary vascular congestion or focal infiltrate. Caprini VTE Risk Assessment Caprini VTE Risk Assessment: Moderate/High Risk (score >= 2) Caprini Risk Assessment Model: Point Value = 1 Point Value = 2 Point Value = 3 Point Value = 5 Age 41-60 Minor surgery BMI > 25 kg/m2 Swollen legs Varicose veins or History of unexplained or recurrent spontaneous Oral contraceptives or hormone replacement Sepsis (< 1 month) Serious lung disease, including pneumonia (< 1 month) Abnormal pulmonary function Acute myocardial infarction Congestive heart failure (< 1 month) History of inflammatory bowel disease Medical patient at bed rest Age 61-74 Arthroscopic surgery Major open surgery (> 45 min) Laparoscopic surgery (> 45 min) Malignancy Confined to bed (> 72 hours) Immobilizing plaster cast Central venous access Age >= 75 History of VTE Family history of VTE Factor V Leiden Prothrombin [id number] Lupus anticoagulant Anticardiolipin antibodies Elevated serum homocysteine Heparin-induced thrombocytopenia Other congenital or acquired thrombophilia Stroke (< 1 month) Elective arthroplasty Hip, pelvis, or leg fracture Acute spinal cord injury (< 1 month) Prophylaxis Regimen: Total Risk Factor Score Risk Level Prophylaxis Regimen 0-1 Low Early ambulation 2 Moderate Order ONE of the following: *Sequential Compression Device (SCD) *Heparin 5000 units SQ BID 3-4 Higher Order ONE of the following medications: *Heparin 5000 units SQ TID *Enoxaparin/Lovenox 40 mg SQ daily (WT < 150 kg, CrCl > 30 mL/min) *Enoxaparin/Lovenox 30 mg SQ daily (WT < 150 kg, CrCl > 10-29 mL/min) *Enoxaparin/Lovenox 30 mg SQ BID (WT < 150 kg, CrCl > 30 mL/min) AND/OR *Sequential Compression Device (SCD) 5 or more Highest Order ONE of the following medications: *Heparin 5000 units SQ TID (Preferred with Epidurals) *Enoxaparin/Lovenox 40 mg SQ daily (WT < 150 kg, CrCl > 30 mL/min) *Enoxaparin/Lovenox 30 mg SQ daily (WT < 150 kg, CrCl > 10-29 mL/min) *Enoxaparin/Lovenox 30 mg SQ BID (WT < 150 kg, CrCl > 30 mL/min) AND *Sequential Compression Device (SCD) Assessment and Plan - Plan Assessment/plan: 1. COPD exacerbation Chest x-ray shows no vascular congestion or focal infiltrate Supplemental oxygen as needed Duo nebs IV steroids Continue Levaquin 2. Diabetes mellitus Sliding-scale insulin Monitor blood glucose 3. CAD/hypertension Continue home medications 4. Acute renal insufficiency Creatinine 1.54, baseline 0.8 IV fluid hydration Monitor renal function FEN Heart healthy diet Electrolytes: Monitor and replete as needed NS at 100 cc/hour Heparin
[2017-12-15] MEDS: Sod Chloride 0.9% Inj 1,000 ML IV.CONT SCH ×2 (00:53→14:17)
[2017-12-15] MEDS ORDERED: hydrALAZINE 50 MG Tablet PO ONE (03:07)
[2017-12-15] MEDS: Heparin - SQ 10,000 UNITS/ML Vial SQ SCH ×3 (05:48→21:00)
[2017-12-15] MEDS: Insulin NovoLOG Aspart Correctional Sugar Inj SQ SCH ×5 (05:49→20:52)
[2017-12-15] MEDS ORDERED: Lisinopril 20 MG Tablet PO SCH (09:00)
[2017-12-15] MEDS ORDERED: hydroCHLOROthiazide 25 MG Tablet PO SCH (09:00)
[2017-12-15] MEDS: Pantoprazole Sodium 20 MG DR Tablet PO SCH (09:05)
[2017-12-15] MEDS: Atenolol 50 MG Tablet PO SCH (09:05)
[2017-12-15] MEDS: Senna/Docusate Sodium 8.6/50 MG Tablet PO SCH ×2 (09:06→22:39)
[2017-12-15] MEDS: MethylPREDNISolone Sod Succinate Inj 125 MG/2 ML Vial IV.PUSH SCH ×3 (09:06→20:58)
[2017-12-15] MEDS: hydrALAZINE 50 MG Tablet PO SCH ×4 (09:07→20:58)
--- NOTE | 2017-12-15 14:48 | ECG ---
Date Performed: 12/14/2017 Time Performed: 22:30:11 PTAGE: 67 years EKG: SINUS BRADYCARDIA POSSIBLE INFERIOR MYOCARDIAL INFARCTION BORDERLINE ECG Compared to PREVIOUS TRACING , the prolonged QT interval has resolved. PREVIOUS TRACING DOCTOR: Corina Santos Interpretating Date/Time 12/15/2017 14:46:31
--- NOTE | 2017-12-15 16:11 | P.PNIM ---
Subjective Interval history: Patient complains of mild shortness of breath. Physical Exam Vital signs: Vital Signs 12/14/17 21:06 12/14/17 22:25 12/14/17 22:33 Temperature 98.6 F Pulse Rate 91 H 78 Respiratory Rate 24 16 Blood Pressure 208/100 H Pulse Oximetry 91 L 96 97 12/14/17 22:34 12/14/17 22:35 12/15/17 00:36 Temperature Pulse Rate 52 L 76 58 L Respiratory Rate 18 18 18 Blood Pressure 207/96 H 175/82 H Pulse Oximetry 97 97 12/15/17 02:20 12/15/17 03:27 12/15/17 04:00 Temperature 97.7 F 97.6 F Pulse Rate 57 L 78 51 L Respiratory Rate 18 18 18 Blood Pressure 182/89 H 157/87 H Pulse Oximetry 96 94 L 12/15/17 07:55 12/15/17 08:00 12/15/17 11:27 Temperature 97.5 F L Pulse Rate 62 59 L 59 L Respiratory Rate 18 12 16 Blood Pressure 165/83 H Pulse Oximetry 98 95 12/15/17 12:00 12/15/17 15:28 Temperature 97.3 F L 97.5 F L Pulse Rate 75 56 L Respiratory Rate 12 16 Blood Pressure 153/82 H 163/74 H Pulse Oximetry 94 L 92 L Intake & Output 12/14/17 12/15/17 12/15/17 18:59 06:59 18:59 Intake Total 250 / 250 900 / 900 Balance 250 / 250 900 / 900 Weight 87.543 kg Intake: IV 250 / 250 900 / 900 NS Inj 1,000 ML @ 100 mls/hr IV 100 / 100 900 / 900 .CONT .Q10H [facility] Rx#:[id number] Levaquin 750 mg Premix Inj 150 150 / 150 ML @ 100 mls/hr IV.SIG Q24H [facility] Rx#:[id number] Other: Weight On Admission 87.543 kg Narrative: Patient lying in a semi-supine position with nasal cannula in place. HEENT extraocular movements are intact, clear oropharyngeal mucosa, there is a mild left sided facial droop noted. Cardiovascular S1-S2 audible, RRR Respiratory wheezes auscultated bilaterally Abdomen soft, nontender, normal bowel sounds, vertical midline scar well-healed. Extremities no edema 2+ distal pulses in bilateral upper and lower extremities, no edema Results - Labs CBC & Chem 7: 12/14/17 22:32 12/14/17 22:32 Laboratory Results - last 24 hr 12/14/17 12/14/17 12/14/17 22:32 22:32 22:32 WBC 13.5 H RBC 4.66 Hgb 12.8 L Hct 41.0 MCV 88.1 MCH 27.5 MCHC 31.2 L RDW 18.0 H Plt Count 158 MPV 9.0 Neut % (Auto) 70.5 H Lymph % (Auto) 16.6 [place] % (Auto) 11.1 H Eos % (Auto) 1.6 Baso % (Auto) 0.2 Neut # (Auto) 9.5 H Lymph # (Auto) 2.2 [place] # (Auto) 1.5 H Eos # (Auto) 0.2 Baso # (Auto) 0.0 WBC Differential . Differential Comment Auto diff final PT 10.7 INR 1.1 APTT 27.5 Sodium 147 H Potassium 4.5 Chloride 113 H Carbon Dioxide 26.0 Anion Gap 8 BUN 30 H Creatinine 1.54 H Estimated GFR 55 L POC Glucose Random Glucose 101 Calcium 8.6 Magnesium 2.1 Total Bilirubin 0.4 AST 29 ALT 25 Alkaline Phosphatase 72 Total Creatine Kinase 152 CK-MB (CK-2) 2.3 Troponin I 0.02 B-Natriuretic Peptide Total Protein 6.5 Albumin 3.5 12/14/17 12/15/17 12/15/17 22:32 05:30 09:36 WBC RBC Hgb Hct MCV MCH MCHC RDW Plt Count MPV Neut % (Auto) Lymph % (Auto) [place] % (Auto) Eos % (Auto) Baso % (Auto) Neut # (Auto) Lymph # (Auto) [place] # (Auto) Eos # (Auto) Baso # (Auto) WBC Differential Differential Comment PT INR APTT Sodium Potassium Chloride Carbon Dioxide Anion Gap BUN Creatinine Estimated GFR POC Glucose 186 H 147 H Random Glucose Calcium Magnesium Total Bilirubin AST ALT Alkaline Phosphatase Total Creatine Kinase CK-MB (CK-2) Troponin I B-Natriuretic Peptide 41 Total Protein Albumin 12/15/17 13:19 WBC RBC Hgb Hct MCV MCH MCHC RDW Plt Count MPV Neut % (Auto) Lymph % (Auto) [place] % (Auto) Eos % (Auto) Baso % (Auto) Neut # (Auto) Lymph # (Auto) [place] # (Auto) Eos # (Auto) Baso # (Auto) WBC Differential Differential Comment PT INR APTT Sodium Potassium Chloride Carbon Dioxide Anion Gap BUN Creatinine Estimated GFR POC Glucose 182 H Random Glucose Calcium Magnesium Total Bilirubin AST ALT Alkaline Phosphatase Total Creatine Kinase CK-MB (CK-2) Troponin I B-Natriuretic Peptide Total Protein Albumin - Imaging Impressions Chest X-Ray 12/14/17 22:12 CONCLUSION: 1. Cardiomegaly. 2. No pulmonary vascular congestion or focal infiltrate. Assessment and Plan - Plan This patient is a 67-year-old male with an extensive tobacco smoking history. The patient has COPD and states that he was taking his inhalers for COPD however over the past week has progressively been getting short of breath. Since his symptoms are getting worse he came to our emergency department for evaluation. In the emergency department he was found to be complaining of shortness of breath and was wheezing on physical examination. He also states that he has had a productive cough of a yellowish colored sputum. The the hospitalist was then called to evaluate the patient for admission. 1. COPD exacerbation 2. Acute kidney injury likely secondary to dehydration 3. Hypertension 4. Diabetes mellitus type 2 The patient currently complains of mild shortness of breath which has mildly improved since admission. On physical examination wheezing is auscultated. We will continue DuoNeb treatments every 4 hours, continue IV Solu-Medrol, continue IV antibiotics. Continue supplemental oxygen. He was also found to have acute kidney injury on admission. Serum creatinine was 1.5 baseline serum creatinine is 0.8. Lisinopril will be held additional antihypertensives will be added if needed. We will follow-up with an a.m. basic metabolic panel. Continue sliding scale for glucose control. Heparin for DVT prophylaxis.
[2017-12-15] MEDS: Sodium Chloride 0.45 % Inj 1,000 ML IV.CONT SCH (18:47)
[2017-12-15] MEDS ORDERED: Zolpidem Tartrate 5 MG Tablet PO PRN (18:53)
[2017-12-16] MEDS: MethylPREDNISolone Sod Succinate Inj 125 MG/2 ML Vial IV.PUSH SCH ×2 (03:33→09:35)
[2017-12-16] MEDS: Insulin NovoLOG Aspart Correctional Sugar Inj SQ SCH ×3 (03:41→13:22)
[2017-12-16] MEDS: Heparin - SQ 10,000 UNITS/ML Vial SQ SCH ×2 (05:55→13:29)
[2017-12-16] MEDS: Sodium Chloride 0.45 % Inj 1,000 ML IV.CONT SCH (06:35)
--- NOTE | 2017-12-16 09:04 | P.PNIM ---
Subjective Interval history: Follow-up with COPD exacerbation, acute kidney injury, hypertension. Patient laying in bed without any distress stated he wants to go home and ready to go home. Patient stated shortness of breath is better only have some shortness of breath with exertion. Patient was ambulating to the bathroom and back in the room without any distress. Patient denies any nausea or vomiting,. Just had a good bowel movement today. Patient also complaining of lower back pain which is chronic and he has been taking pain medication at home Physical Exam Vital signs: Vital Signs 12/15/17 11:27 12/15/17 12:00 12/15/17 15:28 Temperature 97.3 F L 97.5 F L Pulse Rate 59 L 80 56 L Respiratory Rate 16 12 16 Blood Pressure 153/82 H 163/74 H Pulse Oximetry 94 L 92 L 12/15/17 16:00 12/15/17 20:00 12/15/17 20:27 Temperature 97.8 F Pulse Rate 69 60 60 Respiratory Rate 19 19 Blood Pressure Pulse Oximetry 93 L 12/15/17 23:20 12/15/17 23:34 12/16/17 00:06 Temperature 97.5 F L Pulse Rate 71 77 76 Respiratory Rate 20 18 Blood Pressure 121/58 L Pulse Oximetry 95 98 12/16/17 03:48 12/16/17 04:00 12/16/17 07:41 Temperature 97.6 F Pulse Rate 68 67 63 Respiratory Rate 20 18 Blood Pressure 139/65 Pulse Oximetry 93 L 98 12/16/17 08:00 Temperature 97.5 F L Pulse Rate 64 Respiratory Rate 18 Blood Pressure 179/82 H Pulse Oximetry 96 Intake & Output 12/15/17 12/16/17 12/16/17 18:59 06:59 18:59 Intake Total 900 / 900 1999 / 1999 Output Total 300 / 300 Balance 900 / 900 1700 / 1700 Weight 87.543 kg Intake: IV 900 / 900 2000 / 2000 NS Inj 1,000 ML @ 100 mls/hr IV 900 / 900 1000 / 1000 .CONT .Q10H [facility] Rx#:[id number] 1/2 Normal Saline Inj 1,000 ML 1000 / 1000 @ 84 mls/hr IV.CONT .[id number] [facility] Rx#:[id number] Output: Urine 300 / 300 Results - Labs CBC & Chem 7: 12/14/17 22:32 12/14/17 22:32 Laboratory Results - last 24 hr 12/15/17 12/15/17 12/15/17 09:36 13:19 17:29 POC Glucose 147 H 182 H 130 H 12/15/17 12/16/17 20:52 03:37 POC Glucose 131 H 184 H
[2017-12-16] MEDS: Senna/Docusate Sodium 8.6/50 MG Tablet PO SCH (09:35)
[2017-12-16] MEDS: Pantoprazole Sodium 20 MG DR Tablet PO SCH (09:35)
[2017-12-16] MEDS: hydrALAZINE 50 MG Tablet PO SCH ×2 (09:36→13:29)
[2017-12-16] MEDS: Atenolol 50 MG Tablet PO SCH (09:36)
[2017-12-16 10:14] LABS: Baso % (Auto) 0.2 % (0.0-2.0); Hematocrit 42.6 % (39.0-51.0); Hemoglobin 13.3 gm/dL (13.0-17.0); Lymph # (Auto) 0.9 th/mm3 (1.0-4.8); Lymph % (Auto) 4.7 % (9.0-44.0); Mean Corpuscular HGB Conc 31.2 % (32.0-36.0); Mean Corpuscular Hemoglobin 27.4 pg (27.0-34.0); Mean Corpuscular Volume 88.1 fL (80.0-100.0); Mean Platelet Volume 9.4 fL (7.0-11.0); Mono # (Auto) 0.8 th/mm3 (0.0-0.9); Mono % (Auto) 4.1 % (0.0-8.0); Neut # (Auto) 18.1 th/mm3 (1.8-7.7); Platelet Count 155 th/mm3 (150-450); Red Blood Count 4.84 mil/mm3 (4.50-5.90); Red Cell Distribution Width 18.3 % (11.6-17.2); White Blood Count 19.9 th/mm3 (4.0-11.0)
[2017-12-16 10:37] LABS: Calcium 8.8 mg/dL (8.5-10.1); Carbon Dioxide 22.1 meq/L (21.0-32.0); Potassium 3.9 meq/L (3.5-5.1)
[2017-12-16 12:07] VITALS: TEMP 97.8; O2SAT 95
[2017-12-16 12:13] VITALS: PULSE 52; RESP 18
--- NOTE | 2017-12-16 12:33 | ECHRPT ---
Indication: CARDIOMYPOATHY CONCLUSIONS The left ventricular systolic function is normal with an estimated ejection fraction in the range of 60-65%. Normal left ventricular size and wall thickness.No regional wall motion abnormalities are present. No significant Valvular Abnormalities. The estimated pulmonary arterial pressure is 32.6 mmHg. BP: / HR: Rhythm: Sinus MEASUREMENTS (Male / Female) Normal Values Technical Quality:Good 2D ECHO LV Diastolic Diameter PLAX 5.3 cm 4.2 - 5.9 / 3.9 - 5.3 cm LV Systolic Diameter PLAX 3.9 cm IVS Diastolic Thickness 1.0 cm 0.6 - 1.0 / 0.6 - 0.9 cm LVPW Diastolic Thickness 1.1 cm 0.6 - 1.0 / 0.6 - 0.9 cm LV Relative Wall Thickness 0.4 RV Internal Dim ED PLAX 2.3 cm LVOT Diameter 1.9 cm LA Systolic Diameter LX 3.9 cm 3.0 - 4.0 / 2.7 - 3.8 cm LV Ejection Fraction MOD 4C 69.1 % LV Ejection Fraction 4C AL 70.9 % M-MODE Aortic Root Diameter MM 2.1 cm LA Systolic Diameter MM 3.6 cm LA Ao Ratio MM 1.7 AV Cusp Separation MM 1.7 cm DOPPLER AV Peak Velocity 140.0 cm/s AV Peak Gradient 7.8 mmHg LVOT Peak Velocity 113.0 cm/s LVOT Peak Gradient 5.1 mmHg AV Area Cont Eq pk 2.3 cm MV Area PHT 3.9 cm Mitral E Point Velocity 80.9 cm/s Mitral A Point Velocity 105.0 cm/s Mitral E to A Ratio 0.8 LV E' Lateral Velocity 4.2 cm/s Mitral E to LV E' Lateral Ratio 19.3 LV E' Septal Velocity 6.6 cm/s Mitral E to LV E' Septal Ratio 12.2 TR Peak Velocity 237.7 cm/s TR Peak Gradient 22.6 mmHg Right Atrial Pressure 10.0 mmHg Pulmonary Artery Systolic Pressu 32.6 mmHg Right Ventricular Systolic Press 32.6 mmHg PV Peak Velocity 89.6 cm/s PV Peak Gradient 3.2 mmHg FINDINGS LEFT VENTRICLE The left ventricular systolic function is normal with an estimated ejection fraction in the range of 60-65%. Normal left ventricular size. Wall thickness is normal. No regional wall motion abnormalities are present. RIGHT VENTRICLE Normal right ventricular size and systolic function. LEFT ATRIUM The left atrial size is normal. RIGHT ATRIUM The right atrial size is normal. ATRIAL SEPTUM Normal atrial septal thickness without atrial level shunting by limited color doppler interrogation. AORTA The aortic root and proximal ascending aorta are normal in size on limited imaging. MITRAL VALVE Structurally normal mitral valve. No mitral valve stenosis or regurgitation. AORTIC VALVE Trileaflet aortic valve. No aortic valve stenosis or regurgitation. TRICUSPID VALVE Structurally normal tricuspid valve. There is trace tricuspid valve regurgitation. The estimated pulmonary arterial pressure is 32.6 mmHg. PULMONARY VALVE No pulmonary valve regurgitation or stenosis. VESSELS The inferior vena cava is normal in size. PERICARDIUM No pericardial effusion. Adalid Ames MD (Electronically Signed) Final Date:16 December 2017 12:32
[2017-12-16] MEDS ORDERED: Lisinopril 10 MG Tablet PO SCH (13:15)
--- NOTE | 2017-12-16 13:45 | P.DS ---
Date of admission: 12/15/17 17:45 Primary care physician: Jessica Boston Brief History from admission: 67-year-old male with past medical history significant for COPD, diabetes, hypertension and coronary artery disease stents to the emergency department for evaluation of shortness of breath. The patient has had shortness of breath and wheezing with a cough productive of green sputum 2 weeks. He has been seen by his armorer technician, Dr. Camarena. The patient has taken 2 courses of antibiotics and is currently on Levaquin. He has also been taking oral prednisone although did not take today's dose. He states his symptoms are not improving and were in fact worsening. He was sent by his armorer technician for further evaluation in the emergency department. The patient denies chest pain. He denies any abdominal pain. No nausea/vomiting/diarrhea. No fever/chills. No lateralizing signs/symptoms. DS: Diagnosis - Discharge Diagnosis (1) Acute exacerbation of chronic obstructive airways disease Status: Acute (2) HTN (hypertension) Status: Acute (3) NATALY (acute kidney injury) Status: Acute DS: Medications - Discharge Medications Prescriptions: levofloxacin 500 mg PO DAILY 5 Days #5 tab prednisone See Taper PO DAILY 8 Days #11 tab DS: Summary Hospital Course: Follow-up with COPD exacerbation, acute kidney injury, hypertension. Patient laying in bed without any distress stated he wants to go home and ready to go home. Patient stated shortness of breath is better only have some shortness of breath with exertion. Patient was ambulating to the bathroom and back in the room without any distress. Patient denies any nausea or vomiting,. Just had a good bowel movement today. Patient also complaining of lower back pain which is chronic and he has been taking pain medication at home. patient awaiting for Labs and 2DEcho. COPD exacerbation -continue O2 2L via [place] -changed Levaquin to PO -continue duonebs treatment -change prednisone to PO with tapering dose -2DEcho - no effusion, Findings: The left ventricular systolic function is normal with an estimated ejection fraction in the range of 60-65%. Normal left ventricular size. Acute kidney injury likely secondary to dehydration -improving -creatinine today 1.08 Hypertension -BP elevated but pt stated better than his normal BP at home, restarted on lisinopril -continue home medications Diabetes mellitus type 2 -FBS slightly elevated, likely due to solu medrol DVT Prophylaxis: encourage ambulation - Time Spent with Patient Total time spent providing and/or coordinating discharge services: Less than 30 minutes - Quality: VTE Deep Vein Thrombosis/Pulmonary Embolism Present on Admission: No Exam Vital signs: Vital Signs 12/15/17 15:28 12/15/17 16:00 12/15/17 20:00 Temperature 97.5 F L 97.8 F Pulse Rate 56 L 69 60 Respiratory Rate 16 19 Blood Pressure 163/74 H Pulse Oximetry 92 L 93 L 12/15/17 20:27 12/15/17 23:20 12/15/17 23:34 Temperature 97.5 F L Pulse Rate 60 71 77 Respiratory Rate 19 20 18 Blood Pressure 121/58 L Pulse Oximetry 95 98 12/16/17 00:06 12/16/17 03:48 12/16/17 04:00 Temperature 97.6 F Pulse Rate 76 68 67 Respiratory Rate 20 Blood Pressure 139/65 Pulse Oximetry 93 L 12/16/17 07:41 12/16/17 08:00 12/16/17 12:00 Temperature 97.5 F L 97.8 F Pulse Rate 63 64 76 Respiratory Rate 18 18 19 Blood Pressure 179/82 H 163/99 H Pulse Oximetry 98 96 95 12/16/17 12:12 Temperature Pulse Rate 52 L Respiratory Rate 18 Blood Pressure Pulse Oximetry Intake & Output 12/15/17 12/16/17 12/16/17 18:59 06:59 18:59 Intake Total 900 / 900 2000 / 2000 500 / 500 Output Total 300 / 300 Balance 900 / 900 1700 / 1700 500 / 500 Weight 87.543 kg Intake: IV 900 / 900 2000 / 2000 500 / 500 NS Inj 1,000 ML @ 100 mls/hr IV 900 / 900 1000 / 1000 .CONT .Q10H RAYMOND Rx#:[id number] 1/2 Normal Saline Inj 1,000 ML 1000 / 1000 500 / 500 @ 84 mls/hr IV.CONT .[id number] RAYMOND Rx#:[id number] Output: Urine 300 / 300 Other: Date of Last Bowel Movement 12/15/17 Narrative: GENERAL: Alert and oriented 3 ,well-developed well-nourished, no apparent distress SKIN: Warm and dry. HEAD: Atraumatic. Normocephalic. EYES: Pupils equal and round. No scleral icterus. No injection or drainage. ENT: No nasal bleeding or discharge. Mucous membranes pink and moist. NECK: Trachea midline. No JVD. CARDIOVASCULAR: Regular rate and rhythm. RESPIRATORY: No accessory muscle use. fine crackles to auscultation. Breath sounds equal bilaterally. on O2 2L via [place] GASTROINTESTINAL: Abdomen soft, non-tender, nondistended. Hepatic and splenic margins not palpable. MUSCULOSKELETAL: Extremities without clubbing, cyanosis, or edema. No obvious deformities. Ambulatory NEUROLOGICAL: Awake and alert. No obvious cranial nerve deficits. Motor grossly within normal limits. Five out of 5 muscle strength in the arms and legs. Normal speech. PSYCHIATRIC: Appropriate mood and affect; insight and judgment normal. Results Procedures completed during hospitalization: 2d Echo Labs on day of discharge: Labs from last 24 hours 12/16/17 12/16/17 12/16/17 13:20 09:16 09:16 WBC 19.9 H RBC 4.84 Hgb 13.3 Hct 42.6 MCV 88.1 MCH 27.4 MCHC 31.2 L RDW 18.3 H Plt Count 155 MPV 9.4 Neut % (Auto) 91.0 H Lymph % (Auto) 4.7 L [place] % (Auto) 4.1 Eos % (Auto) 0.0 Baso % (Auto) 0.2 Neut # (Auto) 18.1 H Lymph # (Auto) 0.9 L [place] # (Auto) 0.8 Eos # (Auto) 0.0 Baso # (Auto) 0.0 WBC Differential . Differential Comment Auto diff final Sodium 141 Potassium 3.9 Chloride 108 H Carbon Dioxide 22.1 Anion Gap 11 BUN 26 H Creatinine 1.08 Estimated GFR 83 L POC Glucose 140 H Random Glucose 147 H Calcium 8.8 12/16/17 12/16/17 12/15/17 09:11 03:37 20:52 WBC RBC Hgb Hct MCV MCH MCHC RDW Plt Count MPV Neut % (Auto) Lymph % (Auto) [place] % (Auto) Eos % (Auto) Baso % (Auto) Neut # (Auto) Lymph # (Auto) [place] # (Auto) Eos # (Auto) Baso # (Auto) WBC Differential Differential Comment Sodium Potassium Chloride Carbon Dioxide Anion Gap BUN Creatinine Estimated GFR POC Glucose 140 H 184 H 131 H Random Glucose Calcium 12/15/17 17:29 WBC RBC Hgb Hct MCV MCH MCHC RDW Plt Count MPV Neut % (Auto) Lymph % (Auto) [place] % (Auto) Eos % (Auto) Baso % (Auto) Neut # (Auto) Lymph # (Auto) [place] # (Auto) Eos # (Auto) Baso # (Auto) WBC Differential Differential Comment Sodium Potassium Chloride Carbon Dioxide Anion Gap BUN Creatinine Estimated GFR POC Glucose 130 H Random Glucose Calcium - Impressions ITS Impressions Chest X-Ray 12/14/17 22:12 CONCLUSION: 1. Cardiomegaly. 2. No pulmonary vascular congestion or focal infiltrate. Discharge Plan - Discharge Disposition Patient Disposition: Discharge Home - Discharge Condition Condition: Stable - Discharge Order Discharge Orders: Discharge Order (Routine); Ordered 12/16/17 Ordered By: Chelsea Ballard - Discharge Details Anticipated Discharge Date: 12/16/17 Discharge Comment: d/c when SBP <160 - Physicians Team Primary Care Provider: Jessica Boston Attending Provider: Giovanny Beckford
[2017-12-16 13:46] VITALS: BP 158/72
== END 2017-12-16 14:57 | disposition home or self-care (01) ==
LOC: NEPC 20:08 → INTOOBSV 23:48 → NEDA 23:48 → NEPGCP 12-15 01:50
PROVIDERS: ADMIT Hospitalist; ATTEND Hospitalist